=== PATIENT | female | born 1955 | race Caucasian/White ===

== ENCOUNTER 2022-09-04 07:27 | Outpatient (OUT) | payer MEDICARE, MEDICAID, SELFPAY ==
[2022-09-04 08:11] LABS: Basophils Absolute Auto 0.1 10^3/uL (0.0-0.1); Basophils Percent Auto 0.7 % (0.2-2.0); Eosinophils Absolute Auto 0.7 10^3/uL (0.0-0.7); Eosinophils Percent Auto 6.8 % (0.9-7.0); Hematocrit 40.6 % (36.0-48.0); Hemoglobin 13.1 g/dL (12.0-16.0); Immature Granulocytes Pct Auto 0.9 % (0.0-0.5); Lymphocytes Absolute Auto 3.2 10^3/uL (1.2-3.8); Lymphocytes Percent Auto 29.5 % (20.5-60.0); Mean Corpuscular HGB Conc 32.3 g/dL (29.9-35.2); Mean Corpuscular Hemoglobin 28.5 pg (26.7-34.0); Mean Corpuscular Volume 88.3 fL (81.0-99.0); Mean Platelet Volume 11.2 fL (9.5-13.5); Monocytes Absolute Auto 0.8 10^3/uL (0.3-0.8); Monocytes Percent Auto 7.6 % (1.7-12.0); Neutrophils Absolute Auto 5.9 10^3/uL (1.4-6.5); Neutrophils Percent Auto 54.5 % (43.0-75.0); Platelet Count 339 10^3/uL (150-450); Red Cell Distribution Width 13.5 % (11.0-15.0); White Blood Count 10.8 10^3/uL (4.0-11.0)
[2022-09-04 08:27] LABS: Microalbumin Urine Random <1.3 mg/dL (<=30.0)
[2022-09-04 09:38] LABS: Alanine Aminotransferase 32 U/L (14-59); Albumin Globulin Ratio 0.9; Albumin Level 3.5 g/dL (3.4-5.0); Alkaline Phosphatase 79 U/L (46-116); Anion Gap 10.8; Aspartate Amino Transferase 20 U/L (15-37); BUN Creatinine Ratio 18.2; Bilirubin Total 0.3 mg/dL (0.2-1.0); Calcium 8.8 mg/dL (8.5-10.1); Chloride 104 mmol/L (98-107); Chol HDL Ratio 4.1; Cholesterol 140 mg/dL (<=200); Estimated GFR (African America >60 (>=60); Estimated GFR (Non-African Ame >60 (>=60); Globulin 4.1 g/dL; Glucose 151 mg/dL (74-106); HDL Cholesterol 34 mg/dL (40-60); Potassium 3.8 mmol/L (3.5-5.1); Sodium 141 mmol/L (136-145); Total Protein 7.6 g/dL (6.4-8.2); Triglycerides 216 mg/dL (<=150); VLDL CHOLESTEROL 43.2 mg/dL
[2022-09-04 09:45] LABS: Free T4 0.91 ng/dL (0.76-1.46)
[2022-09-04 14:37] LABS: Thyroid Stimulating Hormone 1.751 uIU/mL (0.358-3.740)
== END 2022-09-04 07:28 | disposition home or self-care (01) ==
PROVIDERS: PCP Family Medicine; Visit Provider Family Medicine
DX: E78.2 Mixed hyperlipidemia (principal); E13.9 Other specified diabetes mellitus without complications
CPT/HCPCS: 36415; 80053; 80061; 82043; 84439; 84443; 85025

== ENCOUNTER 2022-12-14 14:15 | Outpatient (OUT) | payer MEDICARE, MEDICAID, SELFPAY ==
--- NOTE | 2022-12-14 14:17 | MM_ITS ---
Patient: VICTOR MANUEL SANDHU Exam Date: 12/14/2022 : 1955 Gender:F Ordering : DR ASH PRESCOTT Admission #: [id number] Family : Order #: [id number] CLICK HERE TO VIEW EXAM RADIOLOGY REPORT PROCEDURE: MM TOMOSYNTHESIS SCREENING BI COMPARISON: [facility] W CAD, 10/23/2019. [facility] SCREEN 3D [facility], 11/08/2021. INDICATIONS: Screening Calculator Name NCI Breast Cancer Risk Assessment Tool 5 Year Breast Cancer Risk 2.00% Lifetime Breast Cancer Risk 7.60% Personal Breast Cancer No Personal Ovarian Cancer No Treatments None Family Cancers None LOCATION: [facility] BREAST COMPOSITION: Scattered areas fibroglandular density. FINDINGS: DIAGNOSTIC CATEGORY 2--BENIGN FINDING. NO CHANGE FROM COMPARISON. Scattered benign-appearing calcifications are present. Scattered benign-appearing lymph nodes are present. RIGHT BREAST: No significant suspicious finding. LEFT BREAST: No significant suspicious finding. RECOMMENDATIONS: ROUTINE MAMMOGRAM AND CLINICAL EVALUATION IN 12 MONTHS. PLEASE NOTE: A NORMAL MAMMOGRAM DOES NOT EXCLUDE THE POSSIBILITY OF BREAST CANCER. A CLINICALLY SUSPICIOUS PALPABLE LUMP SHOULD BE BIOPSIED. Dictated by: Ash Cheek MD on 12/15/2022 at 09:00 Approved by: Ash Cheek MD on 12/15/2022 at 09:02
== END 2022-12-14 14:16 | disposition home or self-care (01) ==
LOC: MAMMO 14:15
PROVIDERS: PCP Family Medicine; Visit Provider Family Medicine
DX: Z12.31 Encounter for screening mammogram for malignant neoplasm of breast (principal)
CPT/HCPCS: 77063; 77067

== ENCOUNTER 2023-05-07 07:39 | Outpatient (OUT) | payer MEDICARE, SELFPAY ==
--- OUTSIDE RECORDS SUMMARY | 2023-05-07 07:44 | XMS_ITS | CCD ---
Author Organization [facility] Care Team Providers Care Salesperson Fashion Accessories Name Role Phone AVASTHI, STEPH Unavailable Unavailable AVASTHI, STEPH Unavailable Unavailable JIMMIE BREWSTER Unavailable Unavailable LIBIA SHIPMAN Unavailable Unavailable TRACI CORNELIUS Unavailable Unavailable AHMACHRISTOPHER Mora Unavailable Unavailable Mapus, Tondra Unavailable Samia Payton Primary Care Provider SAMIA PAYTON Primary Care Unavaila PK Engle Attending Unavailable Juanita Fletcher Unavailable MAPUS, TONDRA Admitting Unavailable MAPUS, TONDRA Attending Unavailable DEFRANCE, DR GRACIA Primary Care Unavailable MAPUS, TON Consulting Unavailable DEFRANCE, DR GRACIA Admitting Unavailable DEFRANCE, DR GRACIA Attending Unavailable DEFRANCE, DR GRACIA Primary Care Unavailable DEFRANCE, DR GRACIA Consulting Unavailable DEFRANCE, DR GRACIA Admitting Unavailable DEFRANCE, DR GRACIA Attending Unavailable DEFRANCE, DR GRACIA Primary Care Unavailable DEFRANCE, DR GRACIA Consulting Unavailable DEFRANCE, DR GRACIA Admitting Unavailable DEFRANCE, DR GRACIA Attending Unavailable DEFRANCE, DR GRACIA Primary Care Unavailable DEFRANCE, DR GRACIA Admitting Unavailable DEFRANCE, DR GRACIA Attending Unavailable DEFRANCE, DR GRACIA Primary Care Unavailable DEFRANCE, DR GRACIA Consulting Unavailable DEFRANCE, DR GRACIA Admitting Unavailable DEFRANCE, DR GRACIA Attending Unavailable DEFRANCE, DR GRACIA Primary Care Unavailable WEST, DR SAMIA Disla Consulting Unavailable DEFRANCE, DR GRACIA Consulting Unavailable Defrance Samia JENKINS Primary Care Provider MD Samia Landeros Primary Care Provider [phone] MD Samia Landeros Attending Provider Samia Landeros Unavailable Defrance, Samia Primary Care Unavailable Defrance, Samia Admitting Unavailable DEFRANCE, SAMIA Rivas Attending Unavailable DEFRANCE, SAMIA Rivas Referring Unavailable SAMIA LANDEROS Primary Care Unavailable Allergies Allergy Classification Reported Allergen(s) Allergy Type Date of Onset Reaction(s) Facility (20 sources) Codeine; Translations: [CODEINE] Drug Allergy 8 Swelling, Other (See Comments) [facility] Work Phone: (20 sources) LORazepam; Translations: [LORAZEPAM] Drug Allergy 8 rash, Other: See Comments [facility] Work Phone: (1 source) Codeine Drug Allergy [facility] (1 source) LORazepam Drug Allergy [facility] (1 source) Codeine Drug Allergy 4 [facility] (1 source) LORazepam Drug Allergy 4 [facility] Medications Current Medications Medication Drug Class(es) Dates Sig (Normalized) Sig (Original) amLODIPine 5 mg oral tablet (20 sources) Dihydropyridine Calcium Channel Juliet Start: 04-27-2023 take 1 tablet by mouth in the morning amLODIPine (NORVASC) 5 mg tablet Take 1 tablet (5 mg total) by mouth in the morning. 90 tablet 3 04/27/2023 Active Start: 02-14-2018 take 1 tablet by gerald th once daily amLODIPine (NORVASC) 10 mg tablet TAKE 1 TABLET BY MOUTH EVERY DAY 90 tablet 3 01/17/2023 Active Comment on above: Take 10 mg by mouth once daily. amylase [id number] unt / lipase [id number] unt / protease [id number] unt delayed release oral capsule (20 sources) Start: 019 ZENPEP 40,000-126,000- 168,000 unit capsule,delayed release(DR/EC) TAKE 2 CAPSULES BY MOUTH WITH MEALS AND 1 CAPSULE WITH EACH SNACK 270 capsule 5 02/10/2019 Active Comment on above: Take 2 capsules by m outh w MEALS. Take 1 tablet with each snack. atorvastatin 10 mg oral tablet (20 sources) HMG-CoA Reductase Inhibitor Start: 023 take 1 tablet by mouth in the morning atorvastatin (LIPITOR) 10 mg tablet Indications: Mixed hyperlipidemia Take 1 tablet (10 mg total) by mouth in the morning. 90 tablet 3 08/28/2022 Active benzonatate 200 mg oral capsule (3 sources) Non-narcotic Antitussive Start: take 1 capsule by mouth three times daily as needed for cough benzonatate (TESSALON PERLES) 200 mg capsule Take 1 capsule (200 mg total) by mouth 3 (three) times a day as needed for cough. 30 capsule 1 04/18/2023 Active carvedilol 25 mg oral tablet (20 sources) alpha-Adrenergic Juliet, beta-Adrenergic Juliet Start: take 1 tablet by mouth in the morning, then take 1 tablet by mouth at bedtime carvediloL (COREG) 25 mg tablet Take 1 tablet (25 mg total) by mouth in the morning and 1 tablet (25 mg total) before bedtime. 180 tablet 3 08/28/2022 Active Comment on above: Take 25 mg by mouth twice daily with meals. cefdinir 300 mg oral capsule (2 sources) Cephalosporin Antibacterial Start: End: take 1 capsule by mouth in the morning, then take 1 capsule by mouth at bedtime cefDINIR (OMNICEF) 300 mg capsule Take 1 capsule (300 mg total) by mouth in the morning and 1 capsule (300 mg total) before bedtime. Do all this for 10 days. 20 capsule 0 04/16/2023 04/26/2023 Active cholecalciferol 0.125 mg oral capsule (16 sources) Vitamin D take 1 capsule by mouth every twelve hours Vitamin D3 125 MCG (5000 UT) 1 capsule Orally twice a day Active DEXCOM G6 MODEL MAKER PLASTER misc (8 sources) Start: DEXCOM G6 MODEL MAKER PLASTER misc USE as directed TO monitor blood glucose 0 01/24/2022 Active Dexcom G6 Sensor - (16 sources) Start: 022 Dexcom G6 Sensor - as directed SQ change q 10 days for 90 day(s) Dec, Active Dexcom G6 Sensor - as directed SQ change q 10 days for 90 day(s) Active DEXCOM G6 SENSOR device (8 sources) Start: 01-24-2022 DEXCOM G6 SENS OR device CHANGE every 10 DAYS as directed 0 01/24/2022 Active Dexcom G6 Transmitter - (16 sources) Start: 01-04-2022 Dexcom G6 Escobar smitter - as directed SQ change Q 3 MO for 90 day(s) 23 Nov, 2022 Active Dexcom G6 Transm itter - as directed SQ change Q 3 MO for 90 day(s) Active DEXCOM G6 TRANSMITTER device (8 sources) Start: 01-24-2022 DEXCOM G6 ESCOBAR SMITTER device CHANGE every three MONTHS as directed with G6 Sensor 0 01/24/2022 Active diclofenac sodium 0.01 mg/mg topical gel (20 sources) Nonsteroidal Anti-inflammatory Drug Start: 12-18-2022 diclofenac sodium (VOLTAREN) 1 % gel APPLY TO AFFECTED AREA 3 TIMES A DAY 100 g 5 12/18/2022 Active Start: 05-05-2021 apply 2 g topically twice daily as needed for pain diclofenac (VOLTAREN) 1 % topical gel Indications: Costochondritis APPLY 2GM TO AFFECTED AREA TWICE DAILY NEEDED FOR PAIN DIRECTED 100 g 1 05/05/2021 Active Diclofenac Sodiu m 1 % as directed Externally TID Active Comment on above: APPLY 2GM TO AFFECTE D AREA TWICE DAILY NEEDED FOR PAIN DIRECTED docusate sodium 100 mg oral capsule (20 sources) Start: 04-12-2022 End: 03-26-2023 take 1 capsule by mouth in the morning STOOL SOFTENER 100 mg capsule TAKE 1 CAPSULE (100 MG TOTAL) BY MOUTH IN THE MORNING AND 1 CAPSULE BEFORE BEDTIME 180 capsule 3 03/26/2023 Active take 1 capsule by mouth twice da albertina docusate sodium (COLACE) 100 mg capsule Take 100 mg by mouth twice daily. 0 Active Comment on above: Take 100 mg by mouth twice daily. ferrous sulfate 325 mg oral tablet (20 sources) Start: 01-01-2023 take 1 tablet by mouth in the morning ferrous sulfate 325 (65 FE) mg tablet Take 1 tablet (325 mg total) by mouth in the morning. 90 tablet 3 01/01/2023 Active take 1 tablet by mouth once jacey y Ferrous Sulfate 325 (65 Fe) MG 1 tablet Orally Once a day Active Comment on above: Take 325 mg by mouth once daily. hydroCHLOROthiazide 25 mg oral tablet (5 sources) Thiazide Diuretic Start : 04-02 take 1 tablet by mouth once daily hydroCHLOROthiazide (HYDRODIURIL) 25 mg tablet Take 1 tablet (25 mg total) by mouth daily. 90 tablet 3 04/02/2023 Active 1.5 ml insulin glargine 300 unt/ml pen injector (20 sources) Insulin Analog Start : 03-13 inject 10 [IU] by subcutaneous injection in the morning, then inject 20 [IU] by subcutaneous injection once daily in the morning TOUJEO SOLOSTAR U-300 INSULIN 300 unit/mL (1.5 mL) insulin pen INJECT 10 UNITS IN THE MORNING. TITRATE UP TO 20 UNITS SUBCUTANEOUSLY PER DAY EVERY MORNING 0 03/13/2022 Active Start: 01-04-2022 inject 22 [IU] by calloway bcutaneous injection once daily in the morning Toujeo SoloStar 300 UNIT/ML 22 units qam Subcutaneous as directed for 30 days (titrate up to 30 units/day) Dec, Active Start: 01-04-2022 inject 10 [IU] by calloway bcutaneous injection once daily in the morning Toujeo SoloStar 300 UNIT/ML 10 units qam Subcutaneous as directed for 30 days (titrate up to 20 units/day) Dec, Active Toujeo SoloStar 300 UNIT/ML 37 units qam Subcutaneous as directed for 90 days (titrate up to 40 units/day) Active Toujeo SoloStar 300 UNIT/ML 32 units qam Subcutaneous as directed for 30 days (titrate up to 40 units/day) Active Toujeo SoloStar 300 UNIT/ML 35 units qam Subcutaneous as directed for 30 days (titrate up to 40 units/day) Active Toujeo SoloStar 300 UNIT/ML 33 units qam Subcutaneous as directed for 30 days (titrate up to 40 units/day) Active inject 30 [IU] by calloway bcutaneous injection once daily in the morning Toujeo SoloStar 300 UNIT/ML 30 units qam Subcutaneous as directed for 30 days (titrate up to 40 units/day) Active inject 28 [IU] by calloway bcutaneous injection once daily in the morning Toujeo SoloStar 300 UNIT/ML 28 units qam Subcutaneous as directed for 30 days (titrate up to 30 units/day) Active 3 ml insulin lispro 100 unt/ml pen injector (20 sources) Insulin Analog Start: 03-13-2022 HumaLOG KwikPe n Insulin 100 unit/mL insulin pen 1:25 CORRECTIVE SCALE BEFORE MEAL 3TIMES DAILY SUBCUTANEOUSLY DIRECTED*EXPECT UP TO 20UNITS DAILY 0 03/13/2022 Active Start: 01-04-2022 HumaLOG KwikPe n 100 UNIT/ML 1:40 corrective scale ac tid plus 1:10 ICR Subcutaneous as directed for 30 days (expect up to 20 units/day) Dec, Active lancing device misc (8 sources) Start: 03-03-2022 lancing device misc lidocaine 0.05 mg/mg medicated patch (20 sources) Antiarrhythmic, Amide Local Anesthetic Start: 08-28-2022 End: 02-15-2023 apply 1 dose transdermal route in the morning lidocaine (LIDODERM) 5 % Place 1 patch on the skin in the morning. 30 patch 5 02/15/2023 Active Lidocaine 5 % 1 patch remove after 12 hours Externally Once a day Active meclizine hydrochloride 25 mg oral tablet (20 sources) Antiemetic Start: 09-22-2022 End: 02-15-2023 take 1 tablet by mouth three times daily as needed for dizziness meclizine (ANTIVERT) 25 mg tablet Take 1 tablet (25 mg total) by mouth 3 (three) times a day as needed for dizziness. 90 tablet 5 02/15/2023 Active multivitamin (THERAGRAN) tablet (8 sources) take 1 tablet by mouth in the morning multivitamin (THERAGRAN) tablet Take 1 tablet by mouth in the morning. 0 Active Multivitamin preparation (16 sources) take 1 tablet by mouth once daily Multivitamin - 1 tablet Orally Once a day Active ondansetron 4 mg oral tablet (20 sources) Serotonin-3 Receptor Antagonist Start: 12-11-2022 End: 04-02-2023 take 1 tablet by mouth every eight hours as needed for nausea and vomiting ondansetron (ZOFRAN) 4 mg tablet Take 1 tablet (4 mg total) by mouth every 8 (eight) hours as needed for nausea or vomiting. 30 tablet 5 04/02/2023 Active pantoprazole 40 mg delayed release oral tablet (20 sources) Proton Pump Inhibitor Start: 08-28-2022 take 1 tablet by mouth in the morning pantoprazole (PROTONIX) 40 mg EC tablet Take 1 tablet (40 mg total) by mouth in the morning. 90 tablet 3 08/28/2022 Active Comment on above: Take 40 mg by mouth once daily. microencapsulated potassium chloride 10 meq extended release oral tablet (20 sources) Start: 09-22-2022 take 1 tablet by mouth in the morning KLOR-CON M10 10 mEq CR tablet TAKE 1 TABLET (10 MEQ TOTAL) BY MOUTH IN THE MORNING 90 tablet 3 09/22/2022 Active take 1 tablet by gerald th every twelve hours Potassium Chloride ER 10 MEQ 1 tablet wi th food Orally Twice a day Active psyllium 400 mg oral capsule (20 sources) psyllium husk (M ETAMUCIL) 0.4 gram capsule Take by mouth daily. 0 Active Metamucil Active Comment on above: Take by mouth once d aily. tiZANidine 4 mg oral tablet (20 sources) Central alpha-2 Adrenergic Agonist Start: 01-01-2023 take 1 tablet by mouth every eight hours as needed tiZANidine (ZANAFLEX) 4 mg tablet Take 1 tablet (4 mg total) by mouth every 8 (eight) hours as needed for muscle spasms. 270 tablet 3 01/01/2023 Active Start: 04-20-2019 take 1 tablet by gerald th once daily at bedtime tiZANidine (ZANAFLEX) 4 mg tablet Take 4 mg by mouth daily at bedtime. 0 04/20/2019 Active Comment on above: Take 4 mg by mouth d aily at bedtime. True Metrix Blood Glucose Test - (16 sources) True Metrix Bloo d Glucose Test - as directed In Vitro Active Zinc (2 sources) take 1 tablet by mouth twice daily Zinc 50 MG 1 tablet Orally TWICE A DAY Active zinc gluconate 50 mg oral tablet (14 sources) take 1 tablet by mouth every twelve hours Zinc 50 MG 1 tablet Orally TWICE A DAY Active Completed/Discontinued Medications Medication Drug Class(es) Dates Sig (Normalized) Sig (Original) acetaminophen 325 mg oral tablet (1 source) Start: 08-05-2018 take 2 tablets by mouth every six hours as needed acetaminophen (TYLENOL) 325 mg tablet Take 2 tablets by mouth every 6 hours as needed for Pain. 15 tablet 0 08/05/2018 Active Comment on above: Take 2 tablets by mo uth every 6 hours as needed for Pain. acetaminophen 325 mg / butalbital 50 mg / caffeine 40 mg oral tablet (4 sources) Barbiturate, Central Nervous System Stimulant, Methylxanthine Start: 01-13-2021 End: 04-02-2023 take 1-2 tablets by mouth every six hours as needed for headache butalbital-acetami nophen-caff (FIORICET, ESGIC) 50-325-40 mg per tablet Take 1-2 tablets by mouth every 6 (six) hours as needed for headaches. 40 tablet 1 01/13/2021 04/02/2023 Discontinued (Alternate therapy) glimepiride 2 mg oral tablet (1 source) Sulfonylurea Start: 05-18-2020 glimepiride (AMARYL) 2 mg tablet 4 mg daily with breakfast. 0 05/18/2020 Active Comment on above: 4 mg daily with bing kfast. meloxicam 15 mg oral tablet (1 source) Nonsteroidal Anti-inflammatory Drug Start: 02-23-2021 take 1 tablet by mouth once daily meloxicam (MOBIC) 15 mg tablet TAKE 1 TABLET BY MOUTH EVERY DAY 30 tablet 1 02/23/2021 Active Comment on above: TAKE 1 TABLET BY GERALD TH EVERY DAY MULTI-VITAMIN ORAL (1 source) take 1 tablet by mouth once daily MULTI-VITAMIN ORAL Take 1 tablet by mouth once daily. 0 Active Comment on above: Take 1 tablet by gerald th once daily. Problems Active Problems Problem Classification Problem Date Documented Date Episodic/Chronic Administrative/socia l admission (7 sources) Dietary counseling and surveillance Episodic Diabetes mellitus without complication (20 sources) Diabetes mellitus without complication; Translations: [Other specified diabetes mellitus without complications] Onset: 04-19-2020 Chronic Disorders of lipid metabolism (20 sources) Hyperlipidemia; Translations: [Hyperlipidemia, unspecified] Onset: 01-10-2022 Chronic Esophageal disorders (1 source) Gastroesophageal reflux disease; Translations: [Gastro-esophageal reflux disease without esophagitis] Onset: 03-03-2019 08-25-2020 Chronic Essential hypertension (20 sources) Hypertensive disorder; Translations: [Essential (primary) hypertension] Onset: 11-02-2017 Chronic Nutritional deficiencies (2 sources) Undernutrition; Translations: [Mild protein-calorie malnutrition] Onset: 11-06-2017 11-15-2017 Chronic Other aftercare (16 sources) Long-term current use of insulin; Translations: [jail (current) use of insulin] Episodic Other aftercare (7 sources) terminologist (current) use of insulin Episodic Other endocrine disorders (16 sources) Hypoglycemia; Translations: [Hypoglycemia, unspecified] Chronic Other endocrine disorders (1 source) Hypoglycemia, unspecified Chronic Other nervous system disorders (1 source) Disorder of brain; Translations: [Encephalopathy, unspecified] Onset: 11-05-2017 11-15-2017 Chronic Other nutritional; endocrine; and metabolic disorders (20 sources) Obese class I; Translations: [Body mass index (BMI) 31.0-31.9, adult] Onset: 11-30-2017 11-30-2017 Chronic Other nutritional; endocrine; and metabolic disorders (1 source) Body mass index (BMI) 31.0-31.9, adult Chronic Other nutritional; endocrine; and metabolic disorders (11 sources) Body mass index 30+ - obesity; Translations: [Body mass index (BMI) 32.0-32.9, adult] Chronic Other nutritional; endocrine; and metabolic disorders (1 source) Body mass index (BMI) 32.0-32.9, adult Chronic Other nutritional; endocrine; and metabolic disorders (2 sources) Body mass index (BMI) 33.0-33.9, adult Chronic Other nutritional; endocrine; and metabolic disorders (1 source) Body mass index (BMI) 34.0-34.9, adult Chronic Other nutritional; endocrine; and metabolic disorders (4 sources) Obese class II; Translations: [Body mass index (BMI) 36.0-36.9, adult] Chronic Other nutritional; endocrine; and metabolic disorders (2 sources) Body mass index (BMI) 36.0-36.9, adult Chronic Other upper respiratory infections (1 source) Acute sinusitis; Translations: [Other acute sinusitis] 04-16-2023 Episodic Residual codes; unclassified (16 sources) Acquired partial absence of pancreas; 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 Unclassified (2 sources) Acute pancreatitis with uninfected necrosis, unspecified; Translations: [Acute pancreatitis with uninfected necrosis, unspecified] Onset: 11-01-2017 Unclassified (1 source) Routine Check up Onset: 04-02-2023 Past or Other Problems Problem Classification Problem Date Documented Da te Episodic/Chronic Crushing injury or internal injury (9 sources) Injury of pancreas; Translations: [Unspecified injury of tail of pancreas, initial encounter] Onset: 07-31-2018 08-05-2018 Episodic Deficiency and other anemia (1 source) Iron deficiency anemia; Translations: [Iron deficiency anemia, unspecified] Onset: 11-27-2017 08-25-2020 Episodic Fluid and electrolyte disorders (6 sources) Hypernatremia; Translations: [Hyperosmolality and hypernatremia] Onset: 11-05-2017 11-15-2017 Episodic Intestinal infection (1 source) Clostridium difficile diarrhea; Translations: [Enterocolitis due to Clostridium difficile, not specified as recurrent] Onset: 11-05-2017 11-15-2017 Episodic Intestinal obstruction without hernia (1 source) Intestinal obstruction co-occurrent and due to decreased peristalsis; Translations: [Ileus, unspecified] Onset: 11-05-2017 11-15-2017 Episodic Mood disorders (8 sources) Mood disorders Onset: 10-10-2022 Resolved: 04-02-2023 10-10-2022 Other connective tissue disease (1 source) Myofascial pain syndrome; Translations: [Myalgia, other site] Onset: 09-23-2019 09-23-2019 Episodic Other lower respiratory disease (1 source) H/O: respiratory disease; Translations: [Personal history of other diseases of the respiratory system] Onset: 11-05-2017 08-25-2020 Episodic Other screening for suspected conditions (not mental disorders or infectious disease) (1 source) Encounter for screening mammogram for malignant neoplasm of breast; Translations: [ENC SCR MAMMO MALIG NEOPLASM BREAST] Onset: 11-10-2021 Episodic Pancreatic disorders (not diabetes) (13 sources) Acute necrotizing pancreatitis; Translations: [Acute pancreatitis with uninfected necrosis, unspecified] Onset: 11-03-2017 12-28-2017 Episodic Spondylosis; intervertebral disc disorders; other back problems (8 sources) Neck pain; Translations: [Cervicalgia] Onset: 08-31-2022 08-31-2022 Episodic Unclassified (8 sources) Onset: 04-29-2020 04-29-2020 Results Test Name Value Interpretation Reference Range Facility A1C HEMOGLOBINon 03-12-2023 HbA1c (Bld) [Mass fraction] 7.8 % [facility] Other Glucose - FINGER STICKon Glucose [Mass/Vol] 132 mg/dL [facility] Other HbA1c (Bld) [Mass fraction]o n 03-12-2023 [facility] HEMOGLOBINon 11-27-2022 HbA1c (Bld) [Mass fraction] 6.7 % [facility] Other Glucose - FINGER STICKon Glucose [Mass/Vol] 126 mg/dL [facility] Other HbA1c (Bld) [Mass fraction]o n 11-27-2022 A1C HEMOGLOBIN [facility] [employer] Other Glucose - FINGER STICKon Glucose [Mass/Vol] 106 mg/dL [facility] Other Glucose - FINGER STICKon Glucose [Mass/Vol] 131 mg/dL [facility] Other GGTon 05-01-2022 Gamma glutamyl transferase [Catalytic activity/Vol] 27 U/L Normal 8-55 [facility] Comment on above: Performed By: #### G GT, ALT, AST #### [facility] [address] [address] [address] Caridad [place] SGOTon 05-01-2022 AST [Catalytic activity/Vol] 24 U/L Normal 15-37 [facility] Comment on above: Performed By: #### G GT, ALT, AST ####[facility] [id number] [place], [place] [address]NvDr. Caridad [place] SGPTon 05-01-2022 ALT [Catalytic activity/Vol] 40 U/L Normal 14-59 [facility] Comment on above: Performed By: #### G GT, ALT, AST #### [facility] [address] [place], [place] [address] Dr. Caridad Canada Glucose - FINGER STICKon Glucose [Mass/Vol] 126 mg/dL [facility] Other A1C HEMOGLOBINon 02-20-2022 HbA1c (Bld) [Mass fraction] 10.0 % [facility] Other Glucose - FINGER STICKon Glucose [Mass/Vol] 125 mg/dL [facility] Other HbA1c (Bld) [Mass fraction]o n 02-20-2022 A1C HEMOGLOBIN [facility] [employer] Other C-PEPTIDE, SERUMon 2 C-Peptide, Serum 3.5 ng/mL Normal 1.1-4.4 [facility] Comment on above: Result Comment: C-Pe ptide reference interval is for fasting patients. Performed By: #### C PEPT #### [facility] [address] [address] [address] Caridad Canada GGTon 01-06-2022 Gamma glutamyl transferase [Catalytic activity/Vol] 40 U/L Normal 8-55 [facility] Comment on above: Performed By: #### A ST, K, ALT, LIPID, GGT ####[facility] [id number] [address]Dr[address] Caridad [place] GLUCOSE BLOODon 01-06-2022 Glucose [Mass/Vol] 342 mg/dL Critically high 74-106 [facility] Comment on above: Performed By: #### G PAMELA ####[facility] [id number] [place] [address]Dr[address] Caridad [place] LIPID PROFILEon 01-06-2022 CHOL-HDL RATIO NORM SEE BELOW Normal [facility] Comment on above: Result Comment: 3.3 - 4.4 LOW RISK 4.4 - 7.1 AVERAGE RISK 7.1 - 11.0 MODERATE RISK >11.0 HIGH RISK Performed By: #### A ST, K, ALT, LIPID, GGT ####[facility] [id number] [place] [id number][address] Caridad [place] Cholesterol [Mass/Vol] 142 mg/dL Normal <=200 [facility] Comment on above: Performed By: #### A ST, K, ALT, LIPID, GGT ####[facility] [id number] [address]Dr. Caridad [place] Cholesterol in HDL [Mass/Vol] 32 mg/dL Critically low 40-60 [facility] Comment on above: Performed By: #### A ST, K, ALT, LIPID, GGT ####[facility] [id number] [place] [phone][address] Caridad [place] Cholesterol in LDL [Mass/Vol] 62.2 mg/dL Normal [facility] Comment on above: Performed By: #### A ST, K, ALT, LIPID, GGT ####[facility] [id number] [place] [phone][address] Caridad Derad Cholesterol.total/ Cholesterol in HDL [Mass ratio] 4.4 {ratio} Normal [facility] Comment on above: Performed By: #### A ST, K, ALT, LIPID, GGT ####[facility] [id number] [place] [address]Dr. Caridad [place] HDL NORMAL > or = 60 mg/dl - LO W CARDIOVASCULAR RISK <40 mg/dl - HIGH CARDIOVASCULAR RISK Normal [facility] Comment on above: Performed By: #### A ST, K, ALT, LIPID, GGT ####[facility] [id number] [place] [address]Dr. Chantellpito [place] LDL CALC NORMAL SEE BELOW Normal [facility] Comment on above: Result Comment: <100 mg/dl OPTIMAL 100 - 129 mg/dl NEAR OR ABOVE OPTIMAL 130 - 159 mg/dl BORDERLINE HIGH 160 - 189 mg/dl HIGH >190 mg/dl VERY HIGH Performed By: #### A ST, K, ALT, LIPID, GGT ####[facility] [id number] [place] [phone][address] Caridad [place] Triglyceride [Mass/Vol] 239 mg/dL Critically high <=150 [facility] Comment on above: Performed By: #### A ST, K, ALT, LIPID, GGT ####[facility] [id number] [place] [phone]. Caridad [place] VLDL CALC 47.8 mg/dL Normal [facility] [facility] Comment on above: Performed By: #### A ST, K, ALT, LIPID, GGT ####[facility] [address] [place] [address]Dr. Caridad Canada MICROALB CREAT RATIO RANDOMo n 01-06-2022 mALB <1.3 Normal <=30.0 [facility] Comment on above: Performed By: #### M CRR ####[facility] [address] [place] [id number]. Caridad Canada MALB CR RATIO 11.1 mg/g Normal 0.0-29.9 [facility] Comment on above: Performed By: #### M CRR ####[facility] [address] [place] [address]Dr. Caridad Canada MALB CR RATIO RANGE SEE BELOW Normal [facility] Comment on above: Result Comment: NO M ICROALBUMINURIA 0-29 MG/G CLINICAL MICROALBUMINURIA 30-300 MG/G MACROALBUMINURIA >300 MG/G Performed By: #### M CRR ####[facility] [address] [place], [place] [address]Dr. Caridad Canada URINE CREAT 116.75 mg/dL Normal 20.00-300.00 [facility] Comment on above: Performed By: #### M CRR ####[facility] [address] [place], [place] [address]Dr. Caridad Canada POTASSIUMon 01-06-2022 Potassium [Moles/Vol] 4.1 mmol/L Normal 3.5-5.1 [facility] Comment on above: Performed By: #### A ST, K, ALT, LIPID, GGT ####[facility] [address] [place] [address]Dr. Caridad Canada SGOTon 01-06-2022 AST [Catalytic activity/Vol] 32 U/L Normal 15-37 [facility] Comment on above: Performed By: #### A ST, K, ALT, LIPID, GGT ####[facility] [address] [place] [address]Dr. Caridad Canada SGPTon 01-06-2022 ALT [Catalytic activity/Vol] 63 U/L Critically high 14-59 [facility] Comment on above: Performed By: #### A ST, K, ALT, LIPID, GGT ####[facility] [address] [place] [address]Dr. Caridad Canada Glucose - FINGER STICKon Glucose [Mass/Vol] 359 mg/dL [employer] Other GLYCOHEMOGLOBIN A1Con 2021 ADA RECOMMENDATION SEE BELOW Normal The [facility] Comment on above: Result Comment: ADA RECOMMENDED LIMIT 4.0 - 6.0 ADA THERAPEUTIC TARGET < 7.0 ACTION SUGGESTED > 7.0 Performed By: #### A 1C #### [facility] [address] [place] [address] Dr. Caridad Canada Glucose [Mass/Vol] 272 mg/dL Normal [facility] Comment on above: Performed By: #### A 1C #### [facility] [address] [place], [place] [address] Dr. Caridad Canada HbA1c (Bld) [Mass fraction] 11.1 % Critically high 4.5-6.2 [facility] Comment on above: Performed By: #### A 1C #### [facility] [address] [place] [address] Dr. Caridad Canada MG MAMM SCREEN 3D MERCY CADon 11-08-2021 MG MAMM SCREEN 3D MERYC CAD Patient: NICHOLE SANDHU Exam Date: 11/08/2021 : 1955 Gender:F Ordering : DR SAMIA LANDEROS Admission #: [id number] Family : Order #: [id number] CLICK HERE TO VIEW EXAM RADIOLOGY REPORT PROCEDURE: MAMMOGRAM SCREENING 3D BILATERAL CAD COMPARISON: MG MAMM MERCY DIAG W CAD, 10/23/2019. MG MAMM LT DIAG W CAD, 04/03/2019. INDICATIONS: Screening mammography Calculator Name NCI Breast Cancer Risk Assessment Tool 5 Year Breast Cancer Risk 2.00% Lifetime Breast Cancer Risk 7.90% Personal Breast Cancer No Personal Ovarian Cancer No Treatments None Family Cancers None LOCATION: [facility] BREAST COMPOSITION: Scattered areas fibroglandular density. FINDINGS: DIAGNOSTIC CATEGORY 2--BENIGN FINDING. NO CHANGE FROM COMPARISON. Scattered benign-appearing calcifications are present. Scattered benign-appearing lymph nodes are present. RIGHT BREAST: No significant suspicious finding. LEFT BREAST: No significant suspicious finding. RECOMMENDATIONS: ROUTINE MAMMOGRAM AND CLINICAL EVALUATION IN 12 MONTHS. PLEASE NOTE: A NORMAL MAMMOGRAM DOES NOT EXCLUDE THE POSSIBILITY OF BREAST CANCER. A CLINICALLY SUSPICIOUS PALPABLE LUMP SHOULD BE BIOPSIED. Dictated by: Samia Cheek MD on 11/09/2021 at 07:35 Approved by: Samia Cheek MD on 11/09/2021 at 07:37 Normal [facility] MICROALBUMIN/ CREATININE RAT IOon 10-25-2021 Albumin, Urine 985.5 ug/mL Normal Not Estab. [facility] Comment on above: Result Comment: Resu lts confirmed on dilution. Performed By: #### M ALBCRL #### [facility] [address] [place] [address] [address] Caridad Canada Albumin/ Creatinine Ratio 399 mg/g creat Critically high 0-29 [facility] Comment on above: Result Comment: Norm al: 0 - 29 Moderately increased: 30 - 300 Severely increased: >300 Performed By: #### M ALBCRL #### [facility] [address] [place] [address] Dr. Caridad Canada Creatinine, Urine 247.2 mg/dL Normal Not Estab. The [facility] Comment on above: Performed By: #### M ALBCRL #### [facility] [address] [place] [address] [address] Caridad Canada CBC AUTO DIFFon 10-24-2021 BASO # 0.1 103/ul Normal 0.0-0.1 [facility] Comment on above: Performed By: #### C BC #### [facility] [address] [place] [address] Dr. Caridad Canada Basophils/100 WBC (Bld) 0.9 % Normal 0.2-2.0 [facility] Comment on above: Performed By: #### C BC #### [facility] [address] [place] [address] Dr. Caridad Canada EO # 0.5 103/ul Normal 0.0-0.7 [facility] Comment on above: Performed By: #### C BC #### [facility] [address] [place] [address] Dr. Caridad Canada Eosinophils/100 WBC (Bld) 4.1 % Normal 0.9-7.0 [facility] Comment on above: Performed By: #### C BC #### [facility] [address] [place] [address] Dr. Caridad Canada Erythrocyte distribution width (RBC) [Ratio] 13.2 % Normal 11.0-15.0 [facility] Comment on above: Performed By: #### C BC #### [facility] [address] [place] [address] Dr. Caridad Canada Hematocrit (Bld) [Volume fraction] 42.5 % Normal 36.0-48.0 [facility] Comment on above: Performed By: #### C BC #### [facility] [address] [place] [address] Dr. Caridad Canada Hemoglobin (Bld) [Mass/Vol] 14.2 g/dL Normal 12.0-16.0 [facility] Comment on above: Performed By: #### C BC #### [facility] [address] [place] [address] Dr. Caridad Canada IG # 0.08 10e3/ul Critically high 0.00-0.03 [facility] Comment on above: Performed By: #### C BC #### [facility] [address] [place] [address] Dr. Caridad Canada IG % 0.7 % Critically high 0.0-0.5 [facility] Comment on above: Performed By: #### C BC #### [facility] [address] [place] [address] Dr. Caridad Canada LYMPH # 4.0 103/ul Critically high 1.2-3.8 [facility] Comment on above: Performed By: #### C BC #### [facility] [address] [place] [address] Dr. Caridad Canada Lymphocytes/100 WBC (Bld) 32.9 % Normal 20.5-60.0 [facility] Comment on above: Performed By: #### C BC #### [facility] [address] [place] [address] Dr. Caridad Canada MANUAL DIFF REQ NO Normal [facility] Comment on above: Performed By: #### C BC #### [facility] [address] [place] [address] Dr. Caridad Canada MCH (RBC) [Entitic mass] 28.8 pg Normal 26.7-34.0 [facility] Comment on above: Performed By: #### C BC #### [facility] [address] [place] [address] Dr. Caridad Canada MCHC (RBC) [Mass/Vol] 33.4 g/dL Normal 29.9-35.2 [facility] Comment on above: Performed By: #### C BC #### [facility] [address] [place] [address] [address] Caridad Canada MCV (RBC) [Entitic vol] 86.2 fL Normal 81.0-99.0 [facility] Comment on above: Performed By: #### C BC #### [facility] [address] [place] [address] Dr. Caridad Canada MONO # 0.7 103/ul Normal 0.3-0.8 [facility] Comment on above: Performed By: #### C BC #### [facility] [address] [place] [address] Dr. Caridad Canada Monocytes/100 WBC (Bld) 6.1 % Normal 1.7-12.0 [facility] Comment on above: Performed By: #### C BC #### [facility] [address] [place] [address] Dr. Caridad Canada NEUT # 6.7 103/ul Critically high 1.4-6.5 [facility] Comment on above: Performed By: #### C BC #### [facility] [address] [place] [address] Dr. Caridad Canada Neutrophils/100 WBC (Bld) 55.3 % Normal 43.0-75.0 [facility] Comment on above: Performed By: #### C BC #### [facility] [address] [place] [address] Dr. Caridad Canada Platelet mean volume (Bld) [Entitic vol] 12.1 fL Normal 9.5-13.5 [facility] Comment on above: Performed By: #### C BC #### [facility] [address] [place] [address] Dr. Caridad Canada PLT 320 103/ul Normal 150-450 [facility] Comment on above: Performed By: #### C BC #### [facility] [address] [place] [address] [address] Caridad Canada RBC 4.93 106/ul Normal 4.20-5.40 [facility] Comment on above: Performed By: #### C BC #### [facility] [address] [place] [address] [address] Caridad Canada WBC 12.1 103/ul Critically high 4.0-11.0 [facility] Comment on above: Performed By: #### C BC #### [facility] [address] [place] [address] [address] Caridad Canada FREE T4on 10-24-2021 Free T4 [Mass/Vol] 1.22 ng/dL Normal 0.76-1.46 [facility] Comment on above: Performed By: #### F T4 ####[facility] [address] [place] [address] [address]Dr. Caridad Canada LIPID PROFILEon 10-24-2021 CHOL-HDL RATIO NORM SEE BELOW Normal [facility] Comment on above: Result Comment: 3.3 - 4.4 LOW RISK 4.4 - 7.1 AVERAGE RISK 7.1 - 11.0 MODERATE RISK >11.0 HIGH RISK Performed By: #### C MP, LIPID, TSH #### [facility] [address] [place] [address] [address] Caridad Canada Cholesterol [Mass/Vol] 181 mg/dL Normal <=200 [facility] Comment on above: Performed By: #### C MP, LIPID, TSH #### [facility] [address] [place] [address] [address] Caridad Canada Cholesterol in HDL [Mass/Vol] 30 mg/dL Critically low 40-60 [facility] Comment on above: Performed By: #### C MP, LIPID, TSH #### [facility] [address] [place] [address] [address] Caridad Canada Cholesterol in LDL [Mass/Vol] 74.6 mg/dL Normal [facility] Comment on above: Performed By: #### C MP, LIPID, TSH #### [facility] [address] [place] [address] [address] Caridad Canada Cholesterol.total/ Cholesterol in HDL [Mass ratio] 6.0 {ratio} Normal [facility] Comment on above: Performed By: #### C MP, LIPID, TSH #### [facility] [address] [place] [address] [address] Caridad Canada HDL NORMAL > or = 60 mg/dl - LO W CARDIOVASCULAR RISK <40 mg/dl - HIGH CARDIOVASCULAR RISK Normal [facility] Comment on above: Performed By: #### C MP, LIPID, TSH #### [facility] [address] [place] [address] [address] Caridad Canada LDL CALC NORMAL SEE BELOW Normal [facility] Comment on above: Result Comment: <100 mg/dl OPTIMAL 100 - 129 mg/dl NEAR OR ABOVE OPTIMAL 130 - 159 mg/dl BORDERLINE HIGH 160 - 189 mg/dl HIGH >190 mg/dl VERY HIGH Performed By: #### C MP, LIPID, TSH #### [facility] [address] [place] [address] [address] Caridad Canada Triglyceride [Mass/Vol] 382 mg/dL Critically high <=150 [facility] Comment on above: Performed By: #### C MP, LIPID, TSH #### [facility] [address] [place] [address] [address] Caridad Canada VLDL CALC 76.4 mg/dL Normal [facility] Comment on above: Performed By: #### C MP, LIPID, TSH #### [facility] [address] [place] [address] [address] Caridad Canada PROF 14(COMP METB)on 022 Albumin [Mass/Vol] 3.6 g/dL Normal 3.4-5.0 [facility] Comment on above: Performed By: #### C MP, LIPID, TSH #### [facility] [address] [place] [address] [address] Caridad Canada Albumin/Globulin [Mass ratio] 0.8 {ratio} Normal [facility] Comment on above: Performed By: #### C MP, LIPID, TSH #### [facility] [address] [place] [address] [address] Caridad Canada ALP [Catalytic activity/Vol] 98 U/L Normal 46-116 [facility] Comment on above: Performed By: #### C MP, LIPID, TSH #### [facility] [address] [place] [address] [address] Caridad Canada ALT [Catalytic activity/Vol] 53 U/L Normal 14-59 [facility] Comment on above: Performed By: #### C MP, LIPID, TSH #### [facility] [address] [place] [address] [address] Caridad Canada Anion gap [Moles/Vol] 13.6 mmol/L Normal [facility] Comment on above: Performed By: #### C MP, LIPID, TSH #### [facility] [address] [place] [address] Dr. Caridad Canada AST [Catalytic activity/Vol] 28 U/L Normal 15-37 [facility] Comment on above: Performed By: #### C MP, LIPID, TSH #### [facility] [address] [address] [address] Caridad Canada Bilirubin [Mass/Vol] 0.4 mg/dL Normal 0.2-1.0 [facility] Comment on above: Performed By: #### C MP, LIPID, TSH #### [facility] [address] [address] [address] Caridad Canada Calcium [Mass/Vol] 9.2 mg/dL Normal 8.5-10.1 [facility] Comment on above: Performed By: #### C MP, LIPID, TSH #### [facility] [address] [address] [address] Caridad Canada Chloride [Moles/Vol] 99 mmol/L Normal 98-107 [facility] Comment on above: Performed By: #### C MP, LIPID, TSH #### [facility] [address] [address] [address] Caridad Canada CO2 [Moles/Vol] 29.8 mmol/L Normal 21.0-32.0 [facility] Comment on above: Performed By: #### C MP, LIPID, TSH #### [facility] [address] [address] [address] Caridad Canada Creatinine [Mass/Vol] 0.66 mg/dL Normal 0.55-1.02 [facility] Comment on above: Performed By: #### C MP, LIPID, TSH #### [facility] [address] [address] [address] Caridad Canada EGFR-AF QATARI >60 Normal >=60 [facility] Comment on above: Performed By: #### C MP, LIPID, TSH #### [facility] [address] [place] [address] [address] Caridad Canada EGFR-NON AF QATARI >60 Normal >=60 [facility] Comment on above: Performed By: #### C MP, LIPID, TSH #### [facility] [address] [address] [address] Caridad Canada Globulin (S) [Mass/Vol] 4.3 g/dL Normal [facility] Comment on above: Performed By: #### C MP, LIPID, TSH #### [facility] [address] [address] [address] Caridad Canada Glucose [Mass/Vol] 301 mg/dL Critically high 74-106 [facility] Comment on above: Performed By: #### C MP, LIPID, TSH #### [facility] [address] [address] [address] Caridad Canada Potassium [Moles/Vol] 3.4 mmol/L Critically low 3.5-5.1 [facility] Comment on above: Performed By: #### C MP, LIPID, TSH #### [facility] [address] [address] [address] Caridad Canada Protein [Mass/Vol] 7.9 g/dL Normal 6.4-8.2 [facility] Comment on above: Performed By: #### C MP, LIPID, TSH #### [facility] [address] [address] [address] Caridad Canada Sodium [Moles/Vol] 139 mmol/L Normal 136-145 [facility] Comment on above: Performed By: #### C MP, LIPID, TSH #### [facility] [address] [place] [address] Dr. Caridad Canada Urea nitrogen [Mass/Vol] 6.0 mg/dL Critically low 7.0-18.0 [facility] Comment on above: Performed By: #### C MP, LIPID, TSH #### [facility] [address] [place] [address] Dr. Caridad Canada Urea nitrogen/Creatinin e [Mass ratio] 9.1 mg/mg Normal [facility] Comment on above: Performed By: #### C MP, LIPID, TSH #### [facility] [address] [place] [address] Dr. Caridad Canada TSHon 10-24-2021 TSH 1.566 uIU/mL Normal 0.358-3.740 [facility] Comment on above: Performed By: #### C MP, LIPID, TSH #### [facility] [address] [place] [address] Dr. Caridad Canada OBSOLETEon 01-25-2021 OBSOLETE Refill (PAINMN) ----- NICHOLE SANDHU ([id number]) 1955 F Date Time Provider Department 01/25/21 JACEY CABRAL PAINMN During your visit today, we recorded the following information about you: Allergies As of Date: 01/25/2021 Noted Allergy Reaction ATIVAN (LORAZEPAM) 11/11/2017 14 - Other: See Comments Comments: Becomes combative/ delirious CODEINE 11/04/2017 7 - Swelling Comments: Swelling of the tongue Date Reviewed: 11/16/2020 Reviewed by: Pk Grady MD - Fully Assessed Reason for Visit: Refill Request [94] Visit Diagnosis:Costochondritis [M94.0] Order(s):diclofenac (VOLTAREN) 1 % topical gelAPPLY 2 GRAMS TO AFFECTED AREA TWICE A DAY NEEDED FOR PAIN DIRECTEDDisp: 100 gRfl: 1 Prescriptions as of 01/25/2021 - diclofenac (VOLTAREN) 1 % topical gel APPLY 2 GRAMS TO AFFECTED AREA TWICE A DAY NEEDED FOR PAIN DIRECTED - smlcou-bycdovew-bpyzzrf (ZENPEP) 40,000-126,000- 168,000 unit delayed release capsule Take 2 capsules by mouth w MEALS. Take 1 tablet with each snack. - meloxicam (MOBIC) 15 mg tablet TAKE 1 TABLET BY MOUTH EVERY DAY - glimepiride (AMARYL) 2 mg tablet 4 mg daily with breakfast. - psyllium husk (METAMUCIL) 0.4 gram cap Take by mouth once daily. - tiZANidine (ZANAFLEX) 4 mg tablet Take 4 mg by mouth daily at bedtime. - pantoprazole DR (PROTONIX) 40 mg tablet Take 40 mg by mouth once daily. - acetaminophen (TYLENOL) 325 mg tablet Take 2 tablets by mouth every 6 hours as needed for Pain. - carvedilol (COREG) 25 mg tablet Take 25 mg by mouth twice daily with meals. - ferrous sulfate (IRON) 325 mg (65 mg iron) tablet Take 325 mg by mouth once daily. - docusate sodium (COLACE) 100 mg capsule Take 100 mg by mouth twice daily. - amLODIPine (NORVASC) 10 mg tablet Take 10 mg by mouth once daily. - MULTI-VITAMIN ORAL Take 1 tablet by mouth once daily. 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 difficile diarrhea [A04.72] 11/05/2017 Hypernatremia [E87.0] 11/05/2017 Pancreatitis [K85.90] 11/03/2017 Malnutrition of mild degree (HCC) [E44.1] 11/06/2017 Obesity, Class II, BMI 35-39.9 [E66.9] 11/15/2017 09/24/2019 Fever [R50.9] 11/27/2017 08/25/2020 Obesity, Class I, BMI 30-34.9 [E66.9] 11/30/2017 Malnutrition of moderate degree (HCC) [E44.0] 12/29/2017 Pancreatitis, necrotizing [K85.91] 01/16/2018 Pancreas tail injury [S36.202A] 07/31/2018 Myofascial pain syndrome [M79.18] 09/23/2019 Gastroesophageal reflux disease [K21.9] 03/03/2019 Iron deficiency anemia [D50.9] 11/27/2017 Hypertension [I10] 11/02/2017 Secondary diabetes mellitus (HCC) [E13.9] 04/19/2020 Prescriptions ordered this encounter Disp Refills Start End DICLOFENAC 1 % TOPICAL GEL 100 g 1 01/25/2021 Sig: APPLY 2 GRAMS TO AFFECTED AREA TWICE A DAY NEEDED FOR PAIN DIRECTED Medications Discontinued During This Encounter Prescriptions - diclofenac (VOLTAREN) 1 % topical gel (Discontinued) APPLY 2 GRAMS TO AFFECTED AREA TWICE A DAY NEEDED FOR PAIN DIRECTED Encounter Status:Closed by JACEY CABRAL on 01/25/21 [facility] ANES POSTPROC EVALon 021 ANES POSTPROC EVAL HNO ID: [id number] Author: Jayce Chase DO Service: Anesthesiology Author Type: Anesthesiologist Type: Anesthesia Postprocedure Evaluation Filed: 08/31/2020 9:44 AM Note Text: POST ANESTHESIA EVALUATION NOTE : 1955 Procedure Summary Date: 08/31/20 Room / Location: [facility] / [facility] Anesthesia Start: 839 Anesthesia Stop: 900 Procedure: COLONOSCOPY WITH BIOPSY (N/A Abdomen) Diagnosis: Overflow diarrhea Irritable bowel syndrome with constipation Change in bowel habits (Dx: Overflow diarrhea [R19.7 (ICD-10-CM)]; Irritable bowel syndrome with constipation [K58.1 (ICD-10-CM)]; Change in bowel habits [R19.4 (ICD-10-CM)]) (PATIENT OUT OF TOWN; WOULD LIKE LATEST IN DAY) Surgeons: Jayce Workman DO Responsible Provider: Jayce Chase DO Anesthesia Type: MAC ASA Status: 3 Anesthesia Type: MAC Last vitals Vitals Value Taken Time BP 138/71 08/31/20 0930 Temp 36.2 ?C (97.2 ?F) 08/31/20 0930 HR SpO2 73 08/31/20 0932 Resp 13 08/31/20 0932 SpO2 95 % 08/31/20 0932 Vitals shown include unvalidated device data. Post Anesthesia Patient Status Patient Evaluation: bedside. Anticipated Disposition: phase 2 then home. Neurological Status: aware and responsive. Pulmonary Status: breathing comfortably on room air Airway Control: returned to baseline unsupported. Cardiovascular Status: stable. Pain Management: clinically adequate Postoperative Hydration: acceptable. Intraoperative Events: no significant anesthesia events Post Operative Nausea/Vomiting Status: no significant post operative nausea or vomiting Anesthetic Observations: Recommendation: continue current plan of care. No complications documented. SIGNATURE: Jayce Chase DO PATIENT NAME: Nichole Sandhu DATE: August 31, 2020 TIME: 9:44 AM CSN: [id number] [facility] ANES PRE-OPon 08-31-2020 ANES PRE-OP HNO ID: [id number] Author: Jayce Chase DO Service: Anesthesiology Author Type: Anesthesiologist Type: Anesthesia Preprocedure Evaluation Filed: 08/31/2020 7:29 AM Note Text: ANESTHESIOLOGY DAY OF SURGERY NOTE : 1955 Procedure(s) (LRB): COLONOSCOPY (N/A) Surgeon(s): Jayce Workman DO Estimated body mass index is 31.26 kg/m? as calculated from the following: Height as of 08/25/20: 163.8 cm (5' 4.5 ). Weight as of 08/25/20: 83.9 kg (185 lb). Most recent hematocrit and potassium results: Hematocrit 35.1 08/20/2018 Potassium 3.7 08/20/2018 CONCLUSIONS: - Technically difficult exam due to suboptimal positioning, body habitus and mechanical ventilation. - Exam indication: Hypotension - The left ventricle is normal in size. There is mild septal left ventricular hypertrophy. Left ventricular systolic function is normal. EF = 68 ? 5% (2D biplane) - The right ventricle is normal in size. Right ventricular systolic function is normal. - The patient has not had a prior CC echocardiographic exam for comparison. ? Relevant Problems CARDIO (+) Hypertension GI (+) Gastroesophageal reflux disease NEURO-PSYCH (+) History of ARDS I - PHYSICAL EVALUATION AIRWAY Patient intubated: No. Tracheostomy tube not present Mallampati: II. TM distance: >3 FB. Neck ROM: full ROM without neurological symptoms. Mouth opening: adequate. Short neck: no. Thick neck: no DENTAL Dentures, upper: complete. Additional exam findings: no II - ANESTHESIA PLAN ASA Score: 3 Anesthetic Plan: MAC The patient is not a current smoker. NPO Status: adequate Administration of chronic beta juliet medication planned. Monitoring plan: standard ASA. Postoperative analgesic plan: multimodal analgesia. Anesthetic Risks, Benefits, Alternatives, Personnel Discussed. Consent obtained from: patient.Patient / Surrogate agrees to blood products: blood products not planned DNR status not reviewed with patient and/or family prior to surgery. Significant changes in the patient condition since the History and Physical, not otherwise documented in primary service progress note: no. Potential Anesthesia issues that may suggest increased risk of complications or contraindication to planned procedure: none. No vitals data found for the desired time range. No current facility-administered medications on file as of 08/31/2020. Outpatient Medications as of 08/31/2020 Medication Sig - diclofenac (VOLTAREN) 1 % topical gel APPLY 2 GRAMS TO AFFECTED AREA TWICE A DAY NEEDED FOR PAIN DIRECTED - tlaixb-qsfaoixc-whhveyt (ZENPEP) 40,000-126,000- 168,000 unit cpDR Take 2 capsules by mouth w MEALS. - lipase/protease/amylase (ZENPEP ORAL) Take by mouth. - glimepiride (AMARYL) 2 mg tablet - lidocaine (LIDODERM) 5 % Apply 1 Patch as directed every 24 hours. - psyllium husk (METAMUCIL) 0.4 gram cap Take by mouth once daily. - tiZANidine (ZANAFLEX) 4 mg tablet Take 4 mg by mouth daily at bedtime. - pantoprazole DR (PROTONIX) 40 mg tablet Take 40 mg by mouth once daily. - acetaminophen (TYLENOL) 325 mg tablet Take 2 tablets by mouth every 6 hours as needed for Pain. - carvedilol (COREG) 25 mg tablet Take 25 mg by mouth twice daily with meals. - ferrous sulfate (IRON) 325 mg (65 mg iron) tablet Take 325 mg by mouth once daily. - docusate sodium (COLACE) 100 mg capsule Take 100 mg by mouth twice daily. - amLODIPine (NORVASC) 10 mg tablet Take 10 mg by mouth. - MULTI-VITAMIN ORAL Take 1 tablet by mouth once daily. - blood sugar diagnostic ([employer]TOUCH VERIO) test strip Use as instructed I have interviewed and examined the patient. I have reviewed the medical record and/or the pre-anesthesia evaluation, pertinent labs, and test results. This contains updated information obtained within 48 hours of Surgery/Procedure. SIGNATURE: Chino Graves DO PATIENT NAME: Nichole Sandhu DATE: August 31, 2020 TIME: 7:27 AM CSN: [id number] [facility] CNCOon 08-31-2020 CNCO Letter Text [facility] HISTORY PHYSICALon HISTORY PHYSICAL HNO ID: [id number] Author: Chaz Benitez PA-C Service: Gastroenterology Author Type: Physician Student Loan Counselor Type: HANDP Filed: 08/31/2020 8:10 AM Note Text: UPDATED HISTORY AND PHYSICAL EXAMINATION SERVICE DATE: 08/31/2020 SERVICE TIME: 7:28 AM PHYSICAL EXAM MUST BE COMPLETED ON ADMISSION The History and Physical (completed in the past 30 days) has been reviewed and the patient has been examined. The contents accurately reflect the patient's condition with the following additions or revisions since the HANDP was completed. Patient denies any changes to health since last examination. Planned procedure for today is colonoscopy. Medication reconciliation list reviewed in [employer]. Past medical history, past surgical history, social history and family history reviewed and updated in [employer]. ALLERGIES Allergen Reactions - Ativan [Lorazepam] Other: See Comments Becomes combative/ delirious - Codeine Swelling Swelling of the tongue BP 176/78 Pulse 69 Temp 36.6 ?C (97.9 ?F) (Temporal) Resp 16 Ht 163.8 cm (5' 4.5 ) Wt 83.9 kg (185 lb) SpO2 97% BMI 31.26 kg/m? Examination indicates no changes. On examination today: Lungs: Clear to auscultation bilaterally. Heart: Rate within normal limits. Regular rhythm . Abdomen: soft, non tender. This HANDP can be found in the Electronic Medical Record dated 08/25/2020 by Nguyen Seals PA-C . SIGNATURE: Chaz Benitez PA-C PATIENT NAME: Nichole Sandhu DATE: August 31, 2020 TIME: 7:28 AM Normal [facility] NURSING PROGon 08-31-2020 NURSING PROG HNO ID: [id number] Author: Ericka Hughes RN Service: Gastroenterology Author Type: Registered Nurse Type: Nursing Progress Note Filed: 09/01/2020 10:56 AM Note Text: [facility] ENDOSCOPY POST PROCEDURE FOLLOW UP CALL [phone] (home) Date Phone Call Made: 09/01/2020 Attempt: Attempt #1 Spoke to: Patient SYMPTOM DESCRIPTION Pain or Discomfort rated as: None IV Site: none Diet Back to Previous yes Nausea/Vomiting: None Bleeding: None Bowel Habits: Normal Other Issues: No Complaints Offered Was the nursing staff attentive to your needs? Yes Is there something our department could have done to make your experience more pleasant? No Ericka Hughes RN Normal [facility] SURGICAL PATHOLOGYon 021 SURGICAL PATHOLOGY Specimen originated from [facility] Specimen #: [id number] Submitting Physician: JAYCE WORKMAN FINAL DIAGNOSIS 1. Random colon, biopsy (A) - Colonic mucosa with no diagnostic alteration; no evidence of lymphocytic or collagenous colitis. 2. Sigmoid polyp, biopsy (B) - Hyperplastic polyp. Kyle Cleaning M.D. (Electronic Signature) SPECIMEN SUBMITTED A: RANDOM COLON, BIOPSY B: SIGMOID POLYP CLINICAL DATA DIARRHEA GROSS DESCRIPTION A. Received in formalin are two pieces of storey, soft tissue aggregating to 0.5 x 0.4 x 0.1 cm. Totally submitted in one cassette. B. Received in formalin is one piece of storey-red, soft tissue measuring 0.3 x 0.2 x 0.2 cm. Totally submitted in one cassette. Gross examination performed at [facility], [address] [place] [address] J 08/31/2020 2:17:20 PM Date of Report: 09/01/2020 Date of Procedure: 08/31/2020 Date of Receipt: 08/31/2020 Submitted by: JAYCE WORKMAN Location: [facility] Diagnostic interpretation performed at [facility], [address] [place] [address]. CLIA Number: [id number] Normal [facility] NURSING PROGon 08-30-2020 NURSING PROG HNO ID: [id number] Author: Rosibel Aiken, RODRICK Service: ? Author Type: Registered Nurse Type: Nursing Progress Note Filed: 08/30/2020 2:11 PM Note Text: [facility] ENDOSCOPY PRE PROCEDURE CALL Diana. I'm calling from [facility] endoscopy to provide you with the information for your surgery/procedure tomorrow. Spoke to: Patient CONFIRM Procedure Planned with patient:Colonoscopy with or without biopsies based on clinical findings Have you been in contact with somebody who was sick?no Do you currently have fever, cough, muscle aches, lack of smell or taste, shortness or breath or other flu-like symptoms?no Have you travelled recently?no Can you please confirm the name and relationship of your local company hazmat driver. Breana Sandhu What is the best number for your local company hazmat driver to be reached at tomorrow for updates? [phone] At this time due to COVID precautions the hospital is taking, visitors are NOT allowed in the pre-op area. They may wait in the main lobby or drop off pt and leave us their contact information and we will call them once pt is ready to be picked up. All patients may have a visitor in recovery only, after the procedure, however, there is a short recovery period so most drivers chose to stay in the car or drop off. So you are prepared and comfortable on the day of your procedure, I want to make you aware of several safety measures we've put in place. When entering our facilities, patients and visitors will be screened for potential COVID-19 symptoms including a temperature scan. You will be asked to sanitize your hands and will be provided with a cloth mask to wear the entire time you are in our building. You may choose to bring your own masks from home. Additionally, as the furniture has been rearranged to promote social and physical distancing, your visitor will be asked to wait outside of the building. This is for everyone's safety and we will ensure the surgical team is able to contact your support team. Colonoscopy: Have you had solid foods today?no (or instruct this must be done on Sunday.) Remind patient the day prior to the test is clear liquids that you can see through (no reds or purple). Stay well hydrated all day. Do not drink only the bowel prep to clean you out. Drink all of the prep to ensure your test can be completed and polyps are not missed. Remind pt to drink at least 1 cup of clear liquids every hour even after finishing the bowel prep. If pt has eaten solid foods-contact endoscopist and verify if they wish to proceed. Are you familiar with where [facility] is located?yes Address [facility] Patient instructed to enter through the main hospital entrance off [address] at [address] through the revolving doors and check in at the main desk with your local company hazmat driver's license and insurance card. yes If anesthesia or sedation is being given: Patient instructed you must have an adult local company hazmat driver because you will not be able to work or drive for the rest of the day after your test.yes Patient instructed not bring any valuables, jewelry, or ponce and wear comfortable clothing. Do not wear makeup, lotion, or finger mongolian. yes Patient instructed: Do not eat or drink anything after midnight, including gum and hard candy.yes Patient instructed: Please bring a list of medications including over the counter, vitamin, and herbals. If you are on inhalers, please do them in the morning before your test and bring them with you.yes Blood pressure, seizure, or thyroid medications may be taken with a couple sips of water ONLY 3 hours prior to arrival time. Is the patient on blood thinners?no If so,verify if pt contacted the prescribing doctor to see how long they may hold blood thinners prior to procedure. Are you diabetic?yes If so, advise pt to contact prescribing doctor to verify if any modifications are needed for insulin and/or pills Reminder:diabetic medication instructions should be given by the patient's ordering physician. If blood sugar drops, they can have CLEAR liquids to bring it up until 3 hours prior to arrival time. Has patient had any recent heart events in the past 6 months? : No Does the patient have a trach or Internal Defibrillator? : No Has patient had any problems with anesthesia in the past or told by a medical professional that he/she was difficult to intubate?: No Procedure and/or bowel prep instructions given to patient and questions answered: Yes, and they verbalized their understanding of instructions given Any barriers to Patient learning (confusion? Services Host needed?): Patient/Patient Practice Clinician responded appropriately on phone. Type of instruction given: Verbal by telephone contact. [facility] ----- NICHOLE SANDHU ([id number]) 1955 F Date Time Provider Department 08/18/20 JAYCE WORKMAN SPDIG During your visit today, we recorded the following information about you: Bernarda Delgado, RODRICK 08/18/2020 5:08 PM Signed COLONOSCOPY- Delete if not having COLON: I called patient to review instructions for colonoscopy. Spoke with patient and sent instructions. Reviewed diet instructions and restrictions, and colonoscopy prep. If applicable, reviewed the need to contact prescribing MD regarding DM and blood thinning medications (Contact prescribing MD re: holding blood thinners or if diabetic for possible modifications while preparing for procedure. . Some pts are not allowed to stop taking their blood thinners ex: cardiac stents less than 1 year ago.). Patient instructed that they will receive a call the day prior to procedure with the time. Patient instructed that they will need a designated local company hazmat driver on the day of the exam. A responsible adult who is 18 years or older must be available to drive you home after your procedure. The patient is not allowed to drive, take a taxi or bus, or leave the Endoscopy Center alone. Patient is not allowed to drive AT ALL following the procedure. Patient may resume driving the following day.Patient verbalized understanding of all teaching. Bernarda Delgado RN Allergies As of Date: 08/18/2020 Noted Allergy Reaction ATIVAN (LORAZEPAM) 11/11/2017 14 - Other: See Comments Comments: Becomes combative/ delirious CODEINE 11/04/2017 7 - Swelling Comments: Swelling of the tongue Date Reviewed: 05/18/2020 Reviewed by: Pk Grady - Fully Assessed Reason for Visit: Outpatient Colonoscopy [482] Prescriptions as of 08/18/2020 - diclofenac (VOLTAREN) 1 % topical gel APPLY 2 GRAMS TO AFFECTED AREA TWICE A DAY NEEDED FOR PAIN DIRECTED - yqxfvo-jdbjjahc-wouxowu (ZENPEP) 40,000-126,000- 168,000 unit cpDR Take 2 capsules by mouth w MEALS. - lipase/protease/amylase (ZENPEP ORAL) Take by mouth. - glimepiride (AMARYL) 2 mg tablet - lidocaine (LIDODERM) 5 % Apply 1 Patch as directed every 24 hours. - psyllium husk (METAMUCIL) 0.4 gram cap Take by mouth once daily. - tiZANidine (ZANAFLEX) 4 mg tablet Take 4 mg by mouth daily at bedtime. - pantoprazole DR (PROTONIX) 40 mg tablet Take 40 mg by mouth once daily. - ppfian-vlivnmup-xnkjjvm (ZENPEP) 40,000-126,000- 168,000 unit cpDR Take 2 tablets by mouth w MEALS. Take 1 tablet with each snack. - acetaminophen (TYLENOL) 325 mg tablet Take 2 tablets by mouth every 6 hours as needed for Pain. - carvedilol (COREG) 25 mg tablet Take 25 mg by mouth twice daily with meals. - ferrous sulfate (IRON) 325 mg (65 mg iron) tablet Take 325 mg by mouth once daily. - docusate sodium (COLACE) 100 mg capsule Take 100 mg by mouth twice daily. - amLODIPine (NORVASC) 10 mg tablet Take 10 mg by mouth. - MULTI-VITAMIN ORAL Take 1 tablet by mouth once daily. - blood sugar diagnostic ([employer]ET[employer]CH VERIO) test strip Use as instructed Problem List As Of Date 08/18/2020 Noted Resolved Necrotizing pancreatitis [K85.91] 11/04/2017 Delirium [R41.0] 11/04/2017 ARDS (adult respiratory distress syndrome) (HCC*11/05/2017 Acute encephalopathy [G93.40] 11/05/2017 Ileus (HCC) [K56.7] 11/05/2017 C. difficile diarrhea [A04.72] 11/05/2017 Hypernatremia [E87.0] 11/05/2017 Pancreatitis [K85.90] 11/03/2017 Malnutrition of mild degree (HCC) [E44.1] 11/06/2017 Obesity, Class II, BMI 35-39.9 [E66.9] 11/15/2017 09/24/2019 Fever [R50.9] 11/27/2017 Obesity, Class I, BMI 30-34.9 [E66.9] 11/30/2017 Malnutrition of moderate degree (HCC) [E44.0] 12/29/2017 Pancreatitis, necrotizing [K85.91] 01/16/2018 Pancreas tail injury [S36.202A] 07/31/2018 Myofascial pain syndrome [M79.18] 09/23/2019 Encounter Status:Closed by BERNARDA DELGADO on 08/18/20 [facility] Coding Summary.on 01-16-2018 Coding Summary. CODING DATE: 018 [facility] STATUS: Home (Routine DC) PAYOR: Medical [employer] APC DESCRIPTION 5571 Level 1 Imaging with Contrast ADMIT DX: REASON FOR VISIT DX: K85.90 Acute pancreatitis without necrosis or infection, unspecified FINAL DX: PRINCIPAL: K85.90 Acute pancreatitis without necrosis or infection, unspecified SECONDARY: PYMT PROC APC STAT DESCRIPTION DOCTOR NAME DATE NOTE: The code number assigned matches the documented diagnosis and / or procedure in the patient's chart. However, the narrative phrase printed from the coding software may appear abbreviated, or result in slightly different terminology. Coded By: Sherin Denny CphT Date Saved: 01/16/2018 07:44 am [facility] Coding Summary.on 12-27-2017 Coding Summary. CODING DATE: 018 FINAL [facility] STATUS: Home (Routine DC) PAYOR: Medical Paxinos ADMIT DX: REASON FOR VISIT DX: E61.1 Iron deficiency FINAL DX: PRINCIPAL: E61.1 Iron deficiency SECONDARY: K85.92 Acute pancreatitis with infected necrosis, unspecified PROCEDURES DOCTOR NAME DATE NOTE: The code number assigned matches the documented diagnosis and / or procedure in the patient's chart. However, the narrative phrase printed from the coding software may appear abbreviated, or result in slightly different terminology. Coded By: Sherin Denny CphT Date Saved: 12/27/2017 02:09 pm Normal [facility] Auto Diffon 12-25-2017 Basophils/100 WBC (Bld) 0.2 % Normal 0.0-2.0 [facility] Comment on above: Order Comment: Order Added by Discern Expert. Performed By: #### 2 [id number], [id number], [id number], 2988378, 8441641 #### [facility] [address] [place] [address] Basophils/Leukocyt es Auto (Bld) [Pure # fraction] 0.0 E9/L Normal 0.0-0.2 [facility] Comment on above: Order Comment: Order Added by Discern Expert. Performed By: #### 2 059990, [id number], 64727363, 7332364, 1166113 #### [facility] [address] [place] [address] 17548 Eosinophils/100 WBC (Bld) 0.9 % Normal 0.0-8.0 [facility] Comment on above: Order Comment: Order Added by Discern Expert. Performed By: #### 2 185572, 58878009, 60940970, 2372961, 3173186 #### [facility] [address] [place] [address] Eosinophils/Leukoc ytes Auto (Bld) [Pure # fraction] 0.1 E9/L Normal 0.0-0.5 [facility] Comment on above: Order Comment: Order Added by Discern Expert. Performed By: #### 2 490482, 28715382, 96731371, 5806581, 2371878 #### [facility] [address] [place] [address]60[address] Lymphocytes/100 WBC (Bld) 8.4 % Low 14.0-50.0 [facility] Comment on above: Order Comment: Order Added by Discern Expert. Performed By: #### 2 406385, 36523130, 02040437, 2631135, 4903679 #### [facility] [address] [place] [address] 24622 Lymphocytes/Leukoc ytes Auto (Bld) [Pure # fraction] 1.3 E9/L Normal 1.0-4.0 [facility] Comment on above: Order Comment: Order Added by Discern Expert. Performed By: #### 2 050805, 94984962, 94372226, 6906340, 5309757 #### [facility] [address] [place] [address] 96421 Monocytes/100 WBC (Bld) 6.8 % Normal 4.0-14.0 [facility] Comment on above: Order Comment: Order Added by Discern Expert. Performed By: #### 2 377631, 64220951, 65488145, 7982211, 8836755 #### [facility] [address] [place] [address] Monocytes/Leukocyt es Auto (Bld) [Pure # fraction] 1.1 E9/L High 0.2-1.0 [facility] Comment on above: Order Comment: Order Added by Discern Expert. Performed By: #### 2 278699, 70422876, 48805543, 1427492, 5588641 #### [facility] [address] [place] [address] 39039 Neutrophils/100 WBC (Bld) 83.7 % High 36.0-75.0 [facility] Comment on above: Order Comment: Order Added by Discern Expert. Performed By: #### 2 741736, 77136331, 02868377, 4944951, 4615222 #### [facility] [address] [place] [address] 06461 Neutrophils/Leukoc ytes Auto (Bld) [Pure # fraction] 13.1 E9/L High 2.0-7.5 [facility] Comment on above: Order Comment: Order Added by Discern Expert. Performed By: #### 2 473168, 89825537, 06809483, 2455096, 5902578 #### [facility] [address] [place] [address] CBC w/ Auto Diffon Erythrocyte distribution width (RBC) [Ratio] 16.4 % High 10.9-14.2 [facility] Comment on above: Performed By: #### 2 537350, 38733901, 95053434, 2476349, 3345660 #### [facility] [address] [place] [address] Hematocrit (Bld) [Volume fraction] 29.6 % Low 34.0-46.0 [facility] Comment on above: Performed By: #### 2 058872, 83597971, 83875303, 8353322, 2000217 #### [facility] [address] [place] [address] Hemoglobin (Bld) [Mass/Vol] 9.2 g/dL Low 12.0-16.0 [facility] Comment on above: Performed By: #### 2 265399, 54165898, 49729509, 1634645, 8805924 #### [facility] [address] [place] [address] 63732 MCH (RBC) [Entitic mass] 23.6 pg Low 27.0-34.0 [facility] Comment on above: Performed By: #### 2 838531, 42775901, 36830049, 4295837, 1357288 #### [facility] [address] [place] [address] MCHC (RBC) [Mass/Vol] 31.1 g/dL Low 31.4-39.3 [facility] Comment on above: Performed By: #### 2 711178, 18861096, 67612459, 1119013, 8798901 #### [facility] [address] [place] [address] MCV (RBC) [Entitic vol] 75.9 fL Low 80.0-100.0 [facility] Comment on above: Performed By: #### 2 822546, 79847445, 25335434, 0578787, 5242585 #### [facility] [address] [place] [address] Platelet mean volume (Bld) [Entitic vol] 10.2 fL Normal 6.4-10.8 [facility] Comment on above: Performed By: #### 2 769316, 52543888, 87925461, 5889103, 0524288 #### [facility] [address] [place] [address] Platelets (Bld) [#/Vol] 375.0 E9/L Normal 150.0-500.0 [facility] Comment on above: Performed By: #### 2 335446, 30489604, 05404064, 1398257, 0784611 #### [facility] [address] [place] [address] 38118 RBC (Bld) [#/Vol] 3.9 E12/L Low 4.3-5.9 [facility] Comment on above: Performed By: #### 2 594074, 45353657, 54504102, 7716630, 3819932 #### [facility] [address] [place] [address]17[address] WBC corrected for nucl RBC Auto (Bld) [#/Vol] 15.6 E9/L High 4.0-11.0 [facility] Comment on above: Performed By: #### 2 063325, 09399117, 32405905, 4928463, 5282558 #### [facility] [address] [place] [address] CMPon 12-25-2017 Albumin [Mass/Vol] 0.6 g/dL Low 1.1-2.2 [facility] Comment on above: Performed By: #### 2 811970, 45399785, 27366155, 1977252, 2888549 #### [facility] [address] [place] [address] Albumin [Mass/Vol] 2.9 g/dL Low 3.3-5.0 [facility] Comment on above: Performed By: #### 2 051521, 41851566, 14293667, 4750223, 9290480 #### [facility] [address] [place] [address] ALP [Catalytic activity/Vol] 62 Int._Unit/L Normal 21-98 [facility] Comment on above: Performed By: #### 2 138147, 12712074, 31158194, 7495023, 8354564 #### [facility] [address] [place] [address] ALT No additional P-5'-P [Catalytic activity/Vol] 12 Int._Unit/L Normal 6-46 [facility] Comment on above: Performed By: #### 2 439063, 64159489, 62399172, 1687708, 2044565 #### [facility] [address] [place] [address] Anion gap [Moles/Vol] 16 mmol/L Normal 6-16 [facility] Comment on above: Performed By: #### 2 569158, 66893461, 63426676, 4975553, 2906262 #### [facility] [address] [place] [address] AST [Catalytic activity/Vol] 19 Int._Unit/L Normal 5-43 [facility] Comment on above: Performed By: #### 2 932096, 33817086, 47708274, 9519715, 9098558 #### [facility] [address] [place] [address] Bilirubin [Mass/Vol] 0.5 mg/dL Normal 0.0-1.1 [facility] Comment on above: Performed By: #### 2 507552, 85377881, 46268725, 0373692, 5536282 #### [facility] [address] [place] [address] Calcium [Mass/Vol] 8.9 mg/dL Normal 8.9-11.1 [facility] Comment on above: Performed By: #### 2 928194, 45294523, 84215476, 8894953, 3871039 #### [facility] [address] [place] [address] Chloride [Moles/Vol] 98 mmol/L Low 101-111 [facility] Comment on above: Performed By: #### 2 048474, 64815340, 35051903, 6685747, 2434726 #### [facility] [address] [place] [address] CO2 [Moles/Vol] 26 mmol/L Normal 21-31 [facility] Comment on above: Performed By: #### 2 897546, 13257082, 65374995, 2616225, 1799490 #### [facility] [address] [place] [address] Creatinine [Mass/Vol] 0.5 mg/dL Normal 0.5-1.3 [facility] Comment on above: Performed By: #### 2 251007, 90485990, 51515923, 9420657, 2217870 #### [facility] [address] [place] [address] Globulin (S) [Mass/Vol] 4.8 g/dL High 1.4-4.0 [facility] Comment on above: Performed By: #### 2 699188, [id number], [id number], 3407783, 6425995 #### [facility] [address] [place] [address] Glucose [Mass/Vol] 105 mg/dL Normal 55-199 [facility] Comment on above: Result Comment: If t his glucose result represents a fasting glucose, interpretation should refer to the following reference range: 55-99 mg/dL Performed By: #### 2 107589, [id number], 74777068, 8939852, 8122215 #### [facility] [address] [place] [address] Potassium [Moles/Vol] 3.7 mmol/L Normal 3.5-5.3 [facility] Comment on above: Performed By: #### 2 187859, 76017518, 61708188, 4516879, 7445794 #### [facility] [address] [place] [address] Protein [Mass/Vol] 7.7 g/dL Normal 6.0-7.8 [facility] Comment on above: Performed By: #### 2 072182, 06488870, 89052952, 2934030, 5896462 #### [facility] [address] [place] [address] Sodium [Moles/Vol] 136 mmol/L Normal 135-145 [facility] Comment on above: Performed By: #### 2 794141, 93782548, 73588246, 9404925, 2005858 #### [facility] [address] [place] [address] Urea nitrogen [Mass/Vol] 9 mg/dL Normal 5-21 [facility] Comment on above: Performed By: #### 2 831454, 49644793, 69645312, 7482352, 8990291 #### [facility] [address] [place] [address] Urea nitrogen/Creatinin e [Mass ratio] 18 No Units Normal 10-20 [facility] Comment on above: Performed By: #### 2 847126, 59713115, 90551501, 3414703, 8702813 #### [facility] [address] [place] [address] Morphon 12-25-2017 Anisocytosis Ql (Bld) Present Normal [facility] Comment on above: Order Comment: Order Added by Discern Expert. Performed By: #### 2 838620, 32636394, 17018743, 4527806, 4179683 #### [facility] [address] [place] [address] Morphology Víctor (Bld) [Interp] See Morphology Normal [facility] Comment on above: Order Comment: Order Added by Discern Expert. Performed By: #### 2 875125, 10096618, 89967569, 9946102, 0912226 #### [facility] [address] [place] [address] Platelets Large LM Ql (Bld) Present Normal [facility] Comment on above: Order Comment: Order Added by Discern Expert. Performed By: #### 2 205414, 32295338, 09358764, 8729241, 1515644 #### [facility] [address] [place] [address] eGFRon 12-25-2017 GFR/1.73 sq M predicted among blacks MDRD (S/P/Bld) [Vol rate/Area] mL/min/{1.73_m2} Normal >=59 [facility] Comment on above: Order Comment: Order added by Vin Expert. Result Comment: eGFR is race adjusted. AA=. Performed By: #### 2 042928, 47411090, 17048089, 7516620, 3991244 #### [facility] [address] [place] [address] GFR/1.73 sq M predicted among non-blacks MDRD (S/P/Bld) [Vol rate/Area] mL/min/{1.73_m2} Normal >=59 [facility] Comment on above: Order Comment: Order added by Vin Expert. Result Comment: [employer] kaleigh kidney disease could be indicated at eGFR's of less than 60 mL/min/1.73m2. Kidney failure is indicated at less than 15 mL/min/1.73m2. Performed By: #### 2 629703, 57507767, 64603622, 5469442, 2472945 #### [facility] [address] [place] [address] Coding Summary.on 12-18-2017 Coding Summary. CODING DATE: 018 FINAL [facility] STATUS: Home (Routine DC) PAYOR: Medical [facility] DESCRIPTION 5571 Level 1 Imaging with Contrast ADMIT DX: REASON FOR VISIT DX: K85.91 Acute pancreatitis with uninfected necrosis, unspecified FINAL DX: PRINCIPAL: K85.91 Acute pancreatitis with uninfected necrosis, unspecified SECONDARY: PYMT PROC APC STAT DESCRIPTION DOCTOR NAME DATE NOTE: The code number assigned matches the documented diagnosis and / or procedure in the patient's chart. However, the narrative phrase printed from the coding software may appear abbreviated, or result in slightly different terminology. Coded By: Rachel Degroot Date Saved: 12/18/2017 12:08 pm Normal [facility] Creatinineon 12-17-2017 Creatinine [Mass/Vol] 0.5 mg/dL Normal 0.5-1.3 [facility] Comment on above: Performed By: #### 1 7868895, 6663856 #### [facility] [address] [place] [address] eGFRon 12-17-2017 GFR/1.73 sq M predicted among blacks MDRD (S/P/Bld) [Vol rate/Area] mL/min/{1.73_m2} Normal >=59 [facility] Comment on above: Order Comment: Order added by Discern Expert. Result Comment: eGFR is race adjusted. AA=. Performed By: #### 1 6196921, [id number] #### [facility] [address] [place] [address] GFR/1.73 sq M predicted among non-blacks MDRD (S/P/Bld) [Vol rate/Area] mL/min/{1.73_m2} Normal >=59 [facility] Comment on above: Order Comment: Order added by Discern Expert. Result Comment: [employer] kaleigh kidney disease could be indicated at eGFR's of less than 60 mL/min/1.73m2. Kidney failure is indicated at less than 15 mL/min/1.73m2. Performed By: #### 1 [id number], [id number] #### [facility] [address] [place] [address] Cult, Bloodon 11-08-2017 Cult, Blood Specimen Description .BLOOD Special Requests LT HAND Culture NO GROWTH 6 DAYS Report Status FINAL 11/08/2017 [facility] Comment on above: Performed By: #### L IP, LACWB, IOCAL, PT, CDP, CHANDU, PTT, LIPR, CMPX ####[facility] [address] [place] [address] Cult,Bloodon 11-08-2017 Cult,Blood Specimen Description .BLOOD Special Requests NOT REPORTED Culture NO GROWTH 6 DAYS Report Status FINAL 11/08/2017 [facility] Comment on above: Performed By: #### L IP, LACWB, IOCAL, PT, CDP, CHANDU, PTT, LIPR, CMPX ####[address] [place] [address] Plan of Careon 11-04-2017 HIM IP Note OR Extras Casting Director Normal [facility] Basic Metabolic Profon 11-03 (cont.) Normal [facility] Comment on above: Result Comment: Aver age GFR for 60-69 years old: 85 mL/min/1.73sq mChronic Kidney Disease: <60 mL/min/1.73sq mKidney failure: <15 mL/min/1.73sq meGFR calculated using average adult body mass. Additional eGFR calculator available at:http://www.edulio.Flashtalking/multiple_crcl_2012.htm Performed By: #### L IP, LACWB, IOCAL, PT, CDP, CHANDU, PTT, LIPR, CMPX ####[address] [place] [address] Anion gap 3 molar conc 9 mmol/L Normal 9-17 [facility] Comment on above: Performed By: #### L IP, LACWB, IOCAL, PT, CDP, CHANDU, PTT, LIPR, CMPX ####[facility] [address] [place] [address] Calcium mass conc 8.3 mg/dL Low 8.6-10.4 [facility] Comment on above: Performed By: #### L IP, LACWB, IOCAL, PT, CDP, CHANDU, PTT, LIPR, CMPX ####[facility] [address] [place] [address] Chloride molar conc 111 mmol/L High 98-107 [facility] Comment on above: Performed By: #### L IP, LACWB, IOCAL, PT, CDP, CHANDU, PTT, LIPR, CMPX ####[address] [address] CO2 molar conc 26 mmol/L Normal 20-31 [facility] Comment on above: Performed By: #### L IP, LACWB, IOCAL, PT, CDP, CHANDU, PTT, LIPR, CMPX ####[address] [address] Creatinine mass conc 0.84 mg/dL Normal 0.50-0.90 [facility] Comment on above: Performed By: #### L IP, LACWB, IOCAL, PT, CDP, CHANDU, PTT, LIPR, CMPX ####[address] [address] GFR, Amer >60 Normal >60 [facility] Comment on above: Performed By: #### L IP, LACWB, IOCAL, PT, CDP, CHANDU, PTT, LIPR, CMPX ####[address] [address] GFR,non Amer >60 Normal >60 [facility] Comment on above: Performed By: #### L IP, LACWB, IOCAL, PT, CDP, CHANDU, PTT, LIPR, CMPX ####[address] [place] [address] Glucose mass conc 124 mg/dL High 70-99 [facility] Comment on above: Performed By: #### L IP, LACWB, IOCAL, PT, CDP, CHANDU, PTT, LIPR, CMPX ####[address] [address] Potassium molar conc 4.2 mmol/L Normal 3.7-5.3 [facility] Comment on above: Performed By: #### L IP, LACWB, IOCAL, PT, CDP, CHANDU, PTT, LIPR, CMPX ####[address] [place] [address] Sodium molar conc 146 mmol/L High 135-144 [facility] Comment on above: Performed By: #### L IP, LACWB, IOCAL, PT, CDP, CHANDU, PTT, LIPR, CMPX ####[facility] [address] [place] [address] Urea nitrogen mass conc 25 mg/dL High 8- [facility] Comment on above: Performed By: #### L IP, LACWB, IOCAL, PT, CDP, CHANDU, PTT, LIPR, CMPX ####[address] [place] [address] BUN/CRE Ratio NOT REPORTED Normal - [facility] Comment on above: Performed By: #### L IP, LACWB, IOCAL, PT, CDP, CHANDU, PTT, LIPR, CMPX ####[address] [place] [address] Staging: NOT REPORTED Normal [facility] Comment on above: Performed By: #### L IP, LACWB, IOCAL, PT, CDP, CHANDU, PTT, LIPR, CMPX ####[facility] [address] [place] [address] CBC with Diffon 11-03-2017 Abs. Basophil 0.00 k/uL Normal 0.0-0.2 [facility] Comment on above: Performed By: #### L IP, LACWB, IOCAL, PT, CDP, CHANDU, PTT, LIPR, CMPX ####[facility] [address] [place] [address] Abs.Imm.Granulocyt e 0.33 k/uL High 0.00-0.30 [facility] Comment on above: Performed By: #### L IP, LACWB, IOCAL, PT, CDP, CHANDU, PTT, LIPR, CMPX ####[place] [address] Abs.Neutrophil (Seg) 13.12 k/uL High 1.8-7.7 [facility] Comment on above: Performed By: #### L IP, LACWB, IOCAL, PT, CDP, CHANDU, PTT, LIPR, CMPX ####[place] [address] Basophils/100 WBC Auto (Bld) 0 % Normal 0-2 [facility] Comment on above: Performed By: #### L IP, LACWB, IOCAL, PT, CDP, CHANDU, PTT, LIPR, CMPX ####[place] [address] Eosinophils Auto #/vol (Bld) 0.00 10*3/uL Normal 0.0-0.4 [facility] Comment on above: Performed By: #### L IP, LACWB, IOCAL, PT, CDP, CHANDU, PTT, LIPR, CMPX ####[place] [address] Eosinophils/100 WBC Auto (Bld) 0 % Low 1-4 [facility] Comment on above: Performed By: #### L IP, LACWB, IOCAL, PT, CDP, CHANDU, PTT, LIPR, CMPX ####[place] [address] Immature granulocytes #/vol (Bld) 2 % High 0 [facility] Comment on above: Performed By: #### L IP, LACWB, IOCAL, PT, CDP, CHANDU, PTT, LIPR, CMPX ####[place] [address] Lymphocytes Auto #/vol (Bld) 1.49 10*3/uL Normal 1.0-4.8 [facility] Comment on above: Performed By: #### L IP, LACWB, IOCAL, PT, CDP, CHANDU, PTT, LIPR, CMPX ####[address] [address] Lymphocytes/100 WBC Auto (Bld) 9 % Low 24-44 [facility] Comment on above: Performed By: #### L IP, LACWB, IOCAL, PT, CDP, CHANDU, PTT, LIPR, CMPX ####[address] [address] Monocytes Auto #/vol (Bld) 1.66 10*3/uL High 0.1-0.8 [facility] Comment on above: Performed By: #### L IP, LACWB, IOCAL, PT, CDP, CHANDU, PTT, LIPR, CMPX ####[address] [address] Monocytes/100 WBC Auto (Bld) 10 % High 1-7 [facility] Comment on above: Performed By: #### L IP, LACWB, IOCAL, PT, CDP, CHANDU, PTT, LIPR, CMPX ####[address] [address] Morphology Interp Víctor (Bld) ANISOCYTOSIS PRESENT Normal [facility] Comment on above: Result Comment: INCR EASED BANDS PRESENTTOXIC GRANULATION PRESENT Performed By: #### L IP, LACWB, IOCAL, PT, CDP, CHANDU, PTT, LIPR, CMPX ####[address] [address] Neutrophil (Seg) 79 % High 36-66 [facility] Comment on above: Performed By: #### L IP, LACWB, IOCAL, PT, CDP, CHANDU, PTT, LIPR, CMPX ####[address] [address] Erythrocyte distribution width Auto Ratio (RBC) 15.1 % High 11.8-14.4 [facility] Comment on above: Performed By: #### L IP, LACWB, IOCAL, PT, CDP, CHANDU, PTT, LIPR, CMPX ####[address] [address] Hematocrit Auto Volume Fraction (Bld) 35.4 % Low 36.3-47.1 [facility] Comment on above: Performed By: #### L IP, LACWB, IOCAL, PT, CDP, CHANDU, PTT, LIPR, CMPX ####[address] [address] Hemoglobin mass conc (Bld) 10.6 g/dL Low 11.9-15.1 [facility] Comment on above: Performed By: #### L IP, LACWB, IOCAL, PT, CDP, CHANDU, PTT, LIPR, CMPX ####[address] [address] MCH Auto Entitic mass (RBC) 26.3 pg Normal 25.2-33.5 [facility] Comment on above: Performed By: #### L IP, LACWB, IOCAL, PT, CDP, CHANDU, PTT, LIPR, CMPX ####[address] [address] MCHC Auto mass conc (RBC) 29.9 g/dL Normal 28.4-34.8 [facility] Comment on above: Performed By: #### L IP, LACWB, IOCAL, PT, CDP, CHANDU, PTT, LIPR, CMPX ####[address] [address] MCV Auto Entitic volume (RBC) 87.8 fL Normal 82.6-102.9 [facility] Comment on above: Performed By: #### L IP, LACWB, IOCAL, PT, CDP, CHANDU, PTT, LIPR, CMPX ####[place] [address] NRBC Automated 0.1 per 100 WBC High 0.0 [facility] Comment on above: Performed By: #### L IP, LACWB, IOCAL, PT, CDP, CHANDU, PTT, LIPR, CMPX ####[address] [address] Platelet mean volume Auto Entitic volume (Bld) 11.4 fL Normal 8.1-13.5 [facility] Comment on above: Performed By: #### L IP, LACWB, IOCAL, PT, CDP, CHANDU, PTT, LIPR, CMPX ####[place] [address] Platelets Auto #/vol (Bld) 267 10*3/uL Normal 138-453 [facility] Comment on above: Performed By: #### L IP, LACWB, IOCAL, PT, CDP, CHANDU, PTT, LIPR, CMPX ####[address] [address] RBC Auto #/vol (Bld) 4.03 10*6/uL Normal 3.95-5.11 [facility] Comment on above: Performed By: #### L IP, LACWB, IOCAL, PT, CDP, CHANDU, PTT, LIPR, CMPX ####[address] [address] WBC Auto #/vol (Bld) 16.6 10*3/uL High 3.5-11.3 [facility] Comment on above: Performed By: #### L IP, LACWB, IOCAL, PT, CDP, CHANDU, PTT, LIPR, CMPX ####[address] [address] Auto Diff Performed NOT REPORTED Normal [facility] Comment on above: Performed By: #### L IP, LACWB, IOCAL, PT, CDP, CHANDU, PTT, LIPR, CMPX ####[place] [address] Platelets Auto #/vol (Bld) NOT REPORTED Normal [facility] Comment on above: Performed By: #### L IP, LACWB, IOCAL, PT, CDP, CHANDU, PTT, LIPR, CMPX ####[place] [address] RBC morphology finding Nom (Bld) NOT REPORTED Normal [facility] Comment on above: Performed By: #### L IP, LACWB, IOCAL, PT, CDP, CHANDU, PTT, LIPR, CMPX ####[place] [address] WBC Morphology NOT REPORTED Normal [facility] Comment on above: Performed By: #### L IP, LACWB, IOCAL, PT, CDP, CHANDU, PTT, LIPR, CMPX ####[place] [address] Abs. Basophil 0.00 k/uL Normal 0.0-0.2 [facility] Comment on above: Performed By: #### L IP, LACWB, IOCAL, PT, CDP, CHANDU, PTT, LIPR, CMPX ####[place] [address] Abs.Imm.Granulocyt e 0.16 k/uL Normal 0.00-0.30 [facility] Comment on above: Performed By: #### L IP, LACWB, IOCAL, PT, CDP, CHANDU, PTT, LIPR, CMPX ####[facility] [address] [place] [address] Abs.Neutrophil (Seg) 13.34 k/uL High 1.8-7.7 [facility] Comment on above: Performed By: #### L IP, LACWB, IOCAL, PT, CDP, CHANDU, PTT, LIPR, CMPX ####[address] [address] Basophils/100 WBC Auto (Bld) 0 % Normal 0-2 [facility] Comment on above: Performed By: #### L IP, LACWB, IOCAL, PT, CDP, CHANDU, PTT, LIPR, CMPX ####[address] [address] Eosinophils Auto #/vol (Bld) 0.00 10*3/uL Normal 0.0-0.4 [facility] Comment on above: Performed By: #### L IP, LACWB, IOCAL, PT, CDP, CHANDU, PTT, LIPR, CMPX ####[place] [address] Eosinophils/100 WBC Auto (Bld) 0 % Low 1-4 [facility] Comment on above: Performed By: #### L IP, LACWB, IOCAL, PT, CDP, CHANDU, PTT, LIPR, CMPX ####[address] [address] Immature granulocytes #/vol (Bld) 1 % High 0 [facility] Comment on above: Performed By: #### L IP, LACWB, IOCAL, PT, CDP, CHANDU, PTT, LIPR, CMPX ####[address] [address] Lymphocytes Auto #/vol (Bld) 1.10 10*3/uL Normal 1.0-4.8 [facility] Comment on above: Performed By: #### L IP, LACWB, IOCAL, PT, CDP, CHANDU, PTT, LIPR, CMPX ####[address] [address] Lymphocytes/100 WBC Auto (Bld) 7 % Low 24-44 [facility] Comment on above: Performed By: #### L IP, LACWB, IOCAL, PT, CDP, CHANDU, PTT, LIPR, CMPX ####[address] [address] Monocytes Auto #/vol (Bld) 1.10 10*3/uL High 0.1-0.8 [facility] Comment on above: Performed By: #### L IP, LACWB, IOCAL, PT, CDP, CHANDU, PTT, LIPR, CMPX ####[address] [address] Monocytes/100 WBC Auto (Bld) 7 % Normal 1-7 [facility] Comment on above: Performed By: #### L IP, LACWB, IOCAL, PT, CDP, CHANDU, PTT, LIPR, CMPX ####[address] [address] Morphology Interp Víctor (Bld) INCREASED BANDS PRESENT Normal [facility] Comment on above: Result Comment: TOXI C GRANULATION PRESENTANISOCYTOSIS PRESENT Performed By: #### L IP, LACWB, IOCAL, PT, CDP, CHANDU, PTT, LIPR, CMPX ####[address] [address] Neutrophil (Seg) 85 % High 36-66 [facility] Comment on above: Performed By: #### L IP, LACWB, IOCAL, PT, CDP, CHANDU, PTT, LIPR, CMPX ####[address] [address] Erythrocyte distribution width Auto Ratio (RBC) 15.0 % High 11.8-14.4 [facility] Comment on above: Performed By: #### L IP, LACWB, IOCAL, PT, CDP, CHANDU, PTT, LIPR, CMPX ####[address] [address] Hematocrit Auto Volume Fraction (Bld) 35.5 % Low 36.3-47.1 [facility] Comment on above: Performed By: #### L IP, LACWB, IOCAL, PT, CDP, CHANDU, PTT, LIPR, CMPX ####[address] [address] Hemoglobin mass conc (Bld) 10.8 g/dL Low 11.9-15.1 [facility] Comment on above: Performed By: #### L IP, LACWB, IOCAL, PT, CDP, CHANDU, PTT, LIPR, CMPX ####[address] [address] MCH Auto Entitic mass (RBC) 26.5 pg Normal 25.2-33.5 [facility] Comment on above: Performed By: #### L IP, LACWB, IOCAL, PT, CDP, CHANDU, PTT, LIPR, CMPX ####[address] [address] MCHC Auto mass conc (RBC) 30.4 g/dL Normal 28.4-34.8 [facility] Comment on above: Performed By: #### L IP, LACWB, IOCAL, PT, CDP, CHANDU, PTT, LIPR, CMPX ####[address] [address] MCV Auto Entitic volume (RBC) 87.2 fL Normal 82.6-102.9 [facility] Comment on above: Performed By: #### L IP, LACWB, IOCAL, PT, CDP, CHANDU, PTT, LIPR, CMPX ####[place] [address] NRBC Automated 0.0 per 100 WBC Normal 0.0 [facility] Comment on above: Performed By: #### L IP, LACWB, IOCAL, PT, CDP, CHANDU, PTT, LIPR, CMPX ####[address] [address] Platelet mean volume Auto Entitic volume (Bld) 11.7 fL Normal 8.1-13.5 [facility] Comment on above: Performed By: #### L IP, LACWB, IOCAL, PT, CDP, CHANDU, PTT, LIPR, CMPX ####[address] [address] Platelets Auto #/vol (Bld) 260 10*3/uL Normal 138-453 [facility] Comment on above: Performed By: #### L IP, LACWB, IOCAL, PT, CDP, CHANDU, PTT, LIPR, CMPX ####[address] [address] RBC Auto #/vol (Bld) 4.07 10*6/uL Normal 3.95-5.11 [facility] Comment on above: Performed By: #### L IP, LACWB, IOCAL, PT, CDP, CHANDU, PTT, LIPR, CMPX ####[address] [address] WBC Auto #/vol (Bld) 15.7 10*3/uL High 3.5-11.3 [facility] Comment on above: Performed By: #### L IP, LACWB, IOCAL, PT, CDP, CHANDU, PTT, LIPR, CMPX ####[address] [address] Auto Diff Performed NOT REPORTED Normal [facility] Comment on above: Performed By: #### L IP, LACWB, IOCAL, PT, CDP, CHANDU, PTT, LIPR, CMPX ####[facility] [address] [place] [address] Platelets Auto #/vol (Bld) NOT REPORTED Normal [facility] Comment on above: Performed By: #### L IP, LACWB, IOCAL, PT, CDP, CHANDU, PTT, LIPR, CMPX ####[facility] [address] [place] [address] RBC morphology finding Nom (Bld) NOT REPORTED Normal [facility] Comment on above: Performed By: #### L IP, LACWB, IOCAL, PT, CDP, CHANDU, PTT, LIPR, CMPX ####[facility] [address] [place] [address] WBC Morphology NOT REPORTED Normal [facility] Comment on above: Performed By: #### L IP, LACWB, IOCAL, PT, CDP, CHANDU, PTT, LIPR, CMPX ####[facility] [address] [place] [address] CT ABDOMEN PELVIS W IV CONTR Sukumar 11-03-2017 CT ABDOMEN PELVIS W IV CONTRAST EXAMINATION:CT OF THE ABDOMEN AND PELVIS WITH CONTRAST 11/03/2017 11:21 amTECHNIQUE:CT of the abdomen and pelvis was performed with the administration ofintravenous contrast. Multiplanar reformatted images are provided for review.Dose modulation, iterative reconstruction, and/or weight based adjustment ofthe mA/kV was utilized to reduce the radiation dose to as low as reasonablyachievable.COMP ARISON:10/30/2017HISTORY: ORDERING SYSTEM PROVIDED HISTORY: necrotic pancreatitis seen on previous CTfrom outside hospital, and worsening ileus on KUBTECHNOLOGIST PROVIDED HISTORY:FINDINGS:Cardiova scular: AtherosclerosisLower Chest: Small left greater than right pleural effusions. Bibasilaratelectasis.Orga nsLiver: Hepatic steatosis.Gallbladder: UnremarkableBiliary: UnremarkablePancreas: Notable air density is identified in the expected area of the bodyof the pancreas.Spleen: UnremarkableAdrenals: UnremarkableKidneys: UnremarkablePelvisBladder : Partially distended.Reproductive: Unremarkable.GI/ Bowel: Wall thickening and submucosal edema involving the jejunum.Peritoneum/ Retroperitoneum: Ascites. Moderate mesenteric edema.Bones/ Soft Tissues: UnremarkableOther: Nasogastric tube with tip terminating in the body of the stomach.IMPRESSION: 1. Small bowel wall thickening and dilation, for which enteritis or ileusshould be considered. This could additionally be a manifestation of thediffuse inflammatory process. This appears new compared to prior 10/30/2017.2. Changes of necrotizing pancreatitis with air in the expected location ofthe pancreatic body.3. Notable mesenteric fat stranding around the pancreas4. Ascites and anasarca.Interpreted by:VIRGIL Woodsigned by:Abhishek Cat MD11/03/inal result Normal [facility] Calcium, [employer] 11-03-2017 Calcium mass conc 1.21 mmol/L Normal 1.13-1.33 [facility] Comment on above: Performed By: #### L IP, LACWB, IOCAL, PT, CDP, CHANDU, PTT, LIPR, CMPX ####[facility] [address] [place] [address] Comp Metabolic Pr/rfx MGon 0 11-03-2017 (cont.) Normal [facility] Comment on above: Result Comment: Aver age GFR for 60-69 years old: 85 mL/min/1.73sq mChronic Kidney Disease: <60 mL/min/1.73sq mKidney failure: <15 mL/min/1.73sq meGFR calculated using average adult body mass. Additional eGFR calculator available at:http://www.edulio.Flashtalking/multiple_crcl_2012.htm Performed By: #### L IP, LACWB, IOCAL, PT, CDP, CHANDU, PTT, LIPR, CMPX ####[employer] [place] [address] Albumin mass conc 2.3 g/dL Low 3.5-5.2 [facility] Comment on above: Performed By: #### L IP, LACWB, IOCAL, PT, CDP, CHANDU, PTT, LIPR, CMPX ####[address] [place] [address] Albumin/Globulin mass ratio 0.7 {ratio} Low 1.0-2.5 [facility] Comment on above: Performed By: #### L IP, LACWB, IOCAL, PT, CDP, CHANDU, PTT, LIPR, CMPX ####[address] [address] Alkaline Phos 84 U/L Normal 35-104 [facility] Comment on above: Performed By: #### L IP, LACWB, IOCAL, PT, CDP, CHANDU, PTT, LIPR, CMPX ####[address] [address] ALT enzyme act/vol 44 U/L High 5-33 [facility] Comment on above: Performed By: #### L IP, LACWB, IOCAL, PT, CDP, CHANDU, PTT, LIPR, CMPX ####[id number] [place] [address] Anion gap 3 molar conc 12 mmol/L Normal 9-17 [facility] Comment on above: Performed By: #### L IP, LACWB, IOCAL, PT, CDP, CHANDU, PTT, LIPR, CMPX ####[id number] [place] [address] AST enzyme act/vol 43 U/L High <32 [facility] Comment on above: Performed By: #### L IP, LACWB, IOCAL, PT, CDP, CHANDU, PTT, LIPR, CMPX ####[id number] [place] [address] Bilirubin Ql (U) 0.51 mg/dL Normal 0.3-1.2 [facility] Comment on above: Performed By: #### L IP, LACWB, IOCAL, PT, CDP, CHANDU, PTT, LIPR, CMPX ####[address] [place] [id number] [place] [address] Calcium mass conc 8.3 mg/dL Low 8.6-10.4 [facility] Comment on above: Performed By: #### L IP, LACWB, IOCAL, PT, CDP, CHANDU, PTT, LIPR, CMPX ####[address] [address] Chloride molar conc 106 mmol/L Normal 98-107 [facility] Comment on above: Performed By: #### L IP, LACWB, IOCAL, PT, CDP, CHANDU, PTT, LIPR, CMPX ####[address] [address] CO2 molar conc 23 mmol/L Normal 20-31 [facility] Comment on above: Performed By: #### L IP, LACWB, IOCAL, PT, CDP, CHANDU, PTT, LIPR, CMPX ####[address] [address] Creatinine mass conc 0.90 mg/dL Normal 0.50-0.90 [facility] Comment on above: Performed By: #### L IP, LACWB, IOCAL, PT, CDP, CHANDU, PTT, LIPR, CMPX ####[address] [address] GFR, Amer >60 Normal >60 [facility] Comment on above: Performed By: #### L IP, LACWB, IOCAL, PT, CDP, CHANDU, PTT, LIPR, CMPX ####[address] [address] GFR,non Amer >60 Normal >60 [facility] Comment on above: Performed By: #### L IP, LACWB, IOCAL, PT, CDP, CHANDU, PTT, LIPR, CMPX ####[address] [place] [address] Glucose mass conc 151 mg/dL High 70-99 [facility] Comment on above: Performed By: #### L IP, LACWB, IOCAL, PT, CDP, CHANDU, PTT, LIPR, CMPX ####[facility] [address] [place] [address] Potassium molar conc 3.8 mmol/L Normal 3.7-5.3 [facility] Comment on above: Performed By: #### L IP, LACWB, IOCAL, PT, CDP, CHANDU, PTT, LIPR, CMPX ####[address] [place] [address] Protein mass conc 5.7 g/dL Low 6.4-8.3 [facility] Comment on above: Performed By: #### L IP, LACWB, IOCAL, PT, CDP, CHANDU, PTT, LIPR, CMPX ####[facility] [place] [address] Sodium molar conc 141 mmol/L Normal 135-144 [facility] Comment on above: Performed By: #### L IP, LACWB, IOCAL, PT, CDP, CHANDU, PTT, LIPR, CMPX ####[facility] [place] [address] Urea nitrogen mass conc 26 mg/dL High 8-23 [facility] Comment on above: Performed By: #### L IP, LACWB, IOCAL, PT, CDP, CHANDU, PTT, LIPR, CMPX ####[address] [place] [address] BUN/CRE Ratio NOT REPORTED Normal 9-20 [facility] Comment on above: Performed By: #### L IP, LACWB, IOCAL, PT, CDP, CHANDU, PTT, LIPR, CMPX ####[address] [place] [address] Staging: NOT REPORTED Normal [facility] Comment on above: Performed By: #### L IP, LACWB, IOCAL, PT, CDP, CHANDU, PTT, LIPR, CMPX ####[facility] [address] [place] [address] Cult,Urine,Cathon 11-03-2017 Cult,Urine,Cath Specimen Description .CATHETERIZED URINE Special Requests NOT REPORTED Culture NO GROWTH Report Status FINAL 11/02/2017 Normal [facility] Comment on above: Performed By: #### L IP, LACWB, IOCAL, PT, CDP, CHANDU, PTT, LIPR, CMPX ####[facility] [address] [place] [address] Discharge Summaryon 11-04-19 18 HIM IP Note OR Extras Casting Director Normal [facility] Plan of Careon 11-03-2017 HIM IP Note OR Extras Casting Director Normal [facility] HIM IP Note OR Extras Casting Director Normal [facility] Progress Noteon 11-03-2017 HIM IP Note OR Extras Casting Director Normal [facility] HIM IP Note OR Extras Casting Director Normal [facility] HIM IP Note OR Extras Casting Director Normal [facility] HIM IP Note OR Extras Casting Director Normal [facility] XR ABDOMEN (KUB) (SINGLE AP VIEW)on 11-03-2017 XR ABDOMEN (KUB) (SINGLE AP VIEW) EXAMINATION:SINGLE SUPINE XRAY VIEW(S) OF THE ABDOMEN11/03/2017 8:42 amCOMPARISON:CT abdomen pelvis from 10/30/2017HISTORY:[employer] PROVIDED HISTORY: reeval ileusTECHNOLOGIST PROVIDED HISTORY:reeval -lyzw-pfz female; re-evaluate ileusFINDINGS:Portable supine view of the abdomen.Enteric tube traverses the GE junction with distal tip overlying the midmidline abdomen, likely within the body of the stomach. Blunting of the leftcostophrenic angle may represent chronic pleural thickening versus smallleft-sided pleural effusion. Stable left basilar opacity, atelectasis,infiltrate, or mild scarring.surgical scrub technician leads overlie the abdomen. Mild diffuse degenerative changesthroughout the spine.Gas in the left upper quadrant is again noted consistent with the findings onCT with suspected pancreatic necrosis.Persistent marked dilation of the small bowel loops and prominence of thevalvuli conniventes which is similar to the prior study measuring up to 4.6cm transversely. There is gaseous distention of the colon. Mild stoolburden. Moderate stool projects over the rectosigmoid colon.IMPRESSION: 1. Intra-abdominal air in the left upper quadrant again noted consistent withthe known findings on CT from 10/30/2017 with suspected pancreatic necrosis.2. Enteric tube with distal tip overlying the mid midline abdomen, likelywithin the body of the stomach.3. Small left-sided pleural effusion with left basilar airspace disease.4. Persistent marked dilation of small bowel loops and prominence of thevalvuli conniventes, similar to the prior exam. Partial small bowelobstruction versus ileus remain differential considerations. Mild stoolburden. Gaseous distention of the colon. Consider furtherevaluation/re-eval uation with CT in order to better compare/re-evaluate theknown findings involving the pancreas and small bowel to the prior 10/30/2017exam.The findings were sent to the [facility] at 9:17am on 11/03/2017to be communicated to a licensed caregiver.Interpreted by:VIRGIL Gutierrezigned by:Braeden Chavez MD11/03/17inal result Normal [facility] APTTon 11-02-2017 aPTT Coag time (Bld) 27.1 s Normal 20.5-30.5 [facility] Comment on above: Performed By: #### L IP, LACWB, IOCAL, PT, CDP, CHANDU, PTT, LIPR, CMPX ####[facility] [address] [place], [place] [id number] Amylaseon 11-02-2017 Amylase enzyme act/vol 104 U/L High 28-100 [facility] Comment on above: Performed By: #### L IP, LACWB, IOCAL, PT, CDP, CHANDU, PTT, LIPR, CMPX ####[facility] [address] [place] [address] CBC with Diffon 11-02-2017 Abs. Basophil 0.00 k/uL Normal 0.00-0.20 [facility] Comment on above: Performed By: #### L IP, LACWB, IOCAL, PT, CDP, CHANDU, PTT, LIPR, CMPX ####[address] [place] [address] Abs.Imm.Granulocyt e 0.14 k/uL Normal 0.00-0.30 [facility] Comment on above: Performed By: #### L IP, LACWB, IOCAL, PT, CDP, CHANDU, PTT, LIPR, CMPX ####[place] [address] Abs.Neutrophil (Seg) 11.01 k/uL High 1.50-8.10 [facility] Comment on above: Performed By: #### L IP, LACWB, IOCAL, PT, CDP, CHANDU, PTT, LIPR, CMPX ####[place] [address] Basophils/100 WBC Auto (Bld) 0 % Normal 0-2 [facility] Comment on above: Performed By: #### L IP, LACWB, IOCAL, PT, CDP, CHANDU, PTT, LIPR, CMPX ####[place] [address] Eosinophils Auto #/vol (Bld) 0.00 10*3/uL Normal 0.00-0.44 [facility] Comment on above: Performed By: #### L IP, LACWB, IOCAL, PT, CDP, CHANDU, PTT, LIPR, CMPX ####[address] [address] Eosinophils/100 WBC Auto (Bld) 0 % Low 1-4 [facility] Comment on above: Performed By: #### L IP, LACWB, IOCAL, PT, CDP, CHANDU, PTT, LIPR, CMPX ####[address] [address] Immature granulocytes #/vol (Bld) 1 % High 0 [facility] Comment on above: Performed By: #### L IP, LACWB, IOCAL, PT, CDP, CHANDU, PTT, LIPR, CMPX ####[address] [address] Lymphocytes Auto #/vol (Bld) 1.09 10*3/uL Low 1.10-3.70 [facility] Comment on above: Performed By: #### L IP, LACWB, IOCAL, PT, CDP, CHANDU, PTT, LIPR, CMPX ####[address] [address] Lymphocytes/100 WBC Auto (Bld) 8 % Low 24-43 [facility] Comment on above: Performed By: #### L IP, LACWB, IOCAL, PT, CDP, CHANDU, PTT, LIPR, CMPX ####[address] [address] Monocytes Auto #/vol (Bld) 1.36 10*3/uL High 0.10-1.20 [facility] Comment on above: Performed By: #### L IP, LACWB, IOCAL, PT, CDP, CHANDU, PTT, LIPR, CMPX ####[address] [address] Monocytes/100 WBC Auto (Bld) 10 % Normal 3-12 [facility] Comment on above: Performed By: #### L IP, LACWB, IOCAL, PT, CDP, CHANDU, PTT, LIPR, CMPX ####[address] [address] Morphology Interp Víctor (Bld) ANISOCYTOSIS PRESENT Normal [facility] Comment on above: Result Comment: TOXI C GRANULATION PRESENT Performed By: #### L IP, LACWB, IOCAL, PT, CDP, CHANDU, PTT, LIPR, CMPX ####[address] [address] Neutrophil (Seg) 81 % High 36-65 [facility] Comment on above: Performed By: #### L IP, LACWB, IOCAL, PT, CDP, CHANDU, PTT, LIPR, CMPX ####[address] [address] NRBC Automated 0.0 per 100 WBC Normal 0.0 [facility] Comment on above: Performed By: #### L IP, LACWB, IOCAL, PT, CDP, CHANDU, PTT, LIPR, CMPX ####[address] [address] Platelet mean volume Auto Entitic volume (Bld) 11.5 fL Normal 8.1-13.5 [facility] Comment on above: Performed By: #### L IP, LACWB, IOCAL, PT, CDP, CHANDU, PTT, LIPR, CMPX ####[address] [address] Platelets Auto #/vol (Bld) 231 10*3/uL Normal 138-453 [facility] Comment on above: Performed By: #### L IP, LACWB, IOCAL, PT, CDP, CHANDU, PTT, LIPR, CMPX ####[address] [address] WBC Auto #/vol (Bld) 13.6 10*3/uL High 3.5-11.3 [facility] Comment on above: Performed By: #### L IP, LACWB, IOCAL, PT, CDP, CHANDU, PTT, LIPR, CMPX ####[address] [address] Erythrocyte distribution width Auto Ratio (RBC) 14.8 % High 11.8-14.4 [facility] Comment on above: Performed By: #### L IP, LACWB, IOCAL, PT, CDP, CHANDU, PTT, LIPR, CMPX ####[address] [address] Hematocrit Auto Volume Fraction (Bld) 34.5 % Low 36.3-47.1 [facility] Comment on above: Performed By: #### L IP, LACWB, IOCAL, PT, CDP, CHANDU, PTT, LIPR, CMPX ####[address] [address] Hemoglobin mass conc (Bld) 10.3 g/dL Low 11.9-15.1 [facility] Comment on above: Performed By: #### L IP, LACWB, IOCAL, PT, CDP, CHANDU, PTT, LIPR, CMPX ####[address] [address] MCH Auto Entitic mass (RBC) 26.3 pg Normal 25.2-33.5 [facility] Comment on above: Performed By: #### L IP, LACWB, IOCAL, PT, CDP, CHANDU, PTT, LIPR, CMPX ####[address] [address] MCHC Auto mass conc (RBC) 29.9 g/dL Normal 28.4-34.8 [facility] Comment on above: Performed By: #### L IP, LACWB, IOCAL, PT, CDP, CHANDU, PTT, LIPR, CMPX ####[address] [address] MCV Auto Entitic volume (RBC) 88.0 fL Normal 82.6-102.9 [facility] Comment on above: Performed By: #### L IP, LACWB, IOCAL, PT, CDP, CHANDU, PTT, LIPR, CMPX ####[place] [address] RBC Auto #/vol (Bld) 3.92 10*6/uL Low 3.95-5.11 [facility] Comment on above: Performed By: #### L IP, LACWB, IOCAL, PT, CDP, CHANDU, PTT, LIPR, CMPX ####[place] [address] Auto Diff Performed NOT REPORTED Normal [facility] Comment on above: Performed By: #### L IP, LACWB, IOCAL, PT, CDP, CHANDU, PTT, LIPR, CMPX ####[place] [address] Platelets Auto #/vol (Bld) NOT REPORTED Normal [facility] Comment on above: Performed By: #### L IP, LACWB, IOCAL, PT, CDP, CHANDU, PTT, LIPR, CMPX ####[place] [address] RBC morphology finding Nom (Bld) NOT REPORTED Normal [facility] Comment on above: Performed By: #### L IP, LACWB, IOCAL, PT, CDP, CHANDU, PTT, LIPR, CMPX ####[place] [address] WBC Morphology NOT REPORTED Normal [facility] Comment on above: Performed By: #### L IP, LACWB, IOCAL, PT, CDP, CHANDU, PTT, LIPR, CMPX ####[place] [address] Abs. Basophil 0.00 k/uL Normal 0.0-0.2 [facility] Comment on above: Performed By: #### L IP, LACWB, IOCAL, PT, CDP, CHANDU, PTT, LIPR, CMPX ####[address] [address] Abs.Imm.Granulocyt e 0.12 k/uL Normal 0.00-0.30 [facility] Comment on above: Performed By: #### L IP, LACWB, IOCAL, PT, CDP, CHANDU, PTT, LIPR, CMPX ####[address] [address] Abs.Neutrophil (Seg) 9.24 k/uL High 1.8-7.7 [facility] Comment on above: Performed By: #### L IP, LACWB, IOCAL, PT, CDP, CHANDU, PTT, LIPR, CMPX ####[address] [address] Basophils/100 WBC Auto (Bld) 0 % Normal 0-2 [facility] Comment on above: Performed By: #### L IP, LACWB, IOCAL, PT, CDP, CHANDU, PTT, LIPR, CMPX ####[place] [address] Eosinophils Auto #/vol (Bld) 0.00 10*3/uL Normal 0.0-0.4 [facility] Comment on above: Performed By: #### L IP, LACWB, IOCAL, PT, CDP, CHANDU, PTT, LIPR, CMPX ####[address] [address] Eosinophils/100 WBC Auto (Bld) 0 % Low 1-4 [facility] Comment on above: Performed By: #### L IP, LACWB, IOCAL, PT, CDP, CHANDU, PTT, LIPR, CMPX ####[address] [address] Immature granulocytes #/vol (Bld) 1 % High 0 [facility] Comment on above: Performed By: #### L IP, LACWB, IOCAL, PT, CDP, CHANDU, PTT, LIPR, CMPX ####[address] [address] Lymphocytes Auto #/vol (Bld) 1.05 10*3/uL Normal 1.0-4.8 [facility] Comment on above: Performed By: #### L IP, LACWB, IOCAL, PT, CDP, CHANDU, PTT, LIPR, CMPX ####[address] [address] Lymphocytes/100 WBC Auto (Bld) 9 % Low 24-44 [facility] Comment on above: Performed By: #### L IP, LACWB, IOCAL, PT, CDP, CHANDU, PTT, LIPR, CMPX ####[address] [address] Monocytes Auto #/vol (Bld) 1.29 10*3/uL High 0.1-0.8 [facility] Comment on above: Performed By: #### L IP, LACWB, IOCAL, PT, CDP, CHANDU, PTT, LIPR, CMPX ####[address] [address] Monocytes/100 WBC Auto (Bld) 11 % High 1-7 [facility] Comment on above: Performed By: #### L IP, LACWB, IOCAL, PT, CDP, CHANDU, PTT, LIPR, CMPX ####[address] [address] Morphology Interp Víctor (Bld) ANISOCYTOSIS PRESENT Normal [facility] Comment on above: Performed By: #### L IP, LACWB, IOCAL, PT, CDP, CHANDU, PTT, LIPR, CMPX ####[address] [address] Neutrophil (Seg) 79 % High 36-66 [facility] Comment on above: Performed By: #### L IP, LACWB, IOCAL, PT, CDP, CHANDU, PTT, LIPR, CMPX ####[address] [address] NRBC Automated 0.0 per 100 WBC Normal 0.0 [facility] Comment on above: Performed By: #### L IP, LACWB, IOCAL, PT, CDP, CHANDU, PTT, LIPR, CMPX ####[address] [address] Platelet mean volume Auto Entitic volume (Bld) 11.8 fL Normal 8.1-13.5 [facility] Comment on above: Performed By: #### L IP, LACWB, IOCAL, PT, CDP, CHANDU, PTT, LIPR, CMPX ####[place] [address] Platelets Auto #/vol (Bld) 201 10*3/uL Normal 138-453 [facility] Comment on above: Performed By: #### L IP, LACWB, IOCAL, PT, CDP, CHANDU, PTT, LIPR, CMPX ####[address] [address] WBC Auto #/vol (Bld) 11.7 10*3/uL High 3.5-11.3 [facility] Comment on above: Performed By: #### L IP, LACWB, IOCAL, PT, CDP, CHANDU, PTT, LIPR, CMPX ####[address] [address] Erythrocyte distribution width Auto Ratio (RBC) 14.7 % High 11.8-14.4 [facility] Comment on above: Performed By: #### L IP, LACWB, IOCAL, PT, CDP, CHANDU, PTT, LIPR, CMPX ####[address] [address] Hematocrit Auto Volume Fraction (Bld) 33.3 % Low 36.3-47.1 [facility] Comment on above: Performed By: #### L IP, LACWB, IOCAL, PT, CDP, CHANDU, PTT, LIPR, CMPX ####[address] [address] Hemoglobin mass conc (Bld) 10.3 g/dL Low 11.9-15.1 [facility] Comment on above: Performed By: #### L IP, LACWB, IOCAL, PT, CDP, CHANDU, PTT, LIPR, CMPX ####[address] [address] MCH Auto Entitic mass (RBC) 27.0 pg Normal 25.2-33.5 [facility] Comment on above: Performed By: #### L IP, LACWB, IOCAL, PT, CDP, CHANDU, PTT, LIPR, CMPX ####[address] [address] MCHC Auto mass conc (RBC) 30.9 g/dL Normal 28.4-34.8 [facility] Comment on above: Performed By: #### L IP, LACWB, IOCAL, PT, CDP, CHANDU, PTT, LIPR, CMPX ####[address] [address] MCV Auto Entitic volume (RBC) 87.4 fL Normal 82.6-102.9 [facility] Comment on above: Performed By: #### L IP, LACWB, IOCAL, PT, CDP, CHANDU, PTT, LIPR, CMPX ####[address] [address] RBC Auto #/vol (Bld) 3.81 10*6/uL Low 3.95-5.11 [facility] Comment on above: Performed By: #### L IP, LACWB, IOCAL, PT, CDP, CHANDU, PTT, LIPR, CMPX ####[address] [address] Auto Diff Performed NOT REPORTED Normal [facility] Comment on above: Performed By: #### L IP, LACWB, IOCAL, PT, CDP, CHANDU, PTT, LIPR, CMPX ####[address] [address] Platelets Auto #/vol (Bld) NOT REPORTED Normal [facility] Comment on above: Performed By: #### L IP, LACWB, IOCAL, PT, CDP, CHANDU, PTT, LIPR, CMPX ####[address] [address] RBC morphology finding Nom (Bld) NOT REPORTED Normal [facility] Comment on above: Performed By: #### L IP, LACWB, IOCAL, PT, CDP, CHANDU, PTT, LIPR, CMPX ####[address] [address] WBC Morphology NOT REPORTED Normal [facility] Comment on above: Performed By: #### L IP, LACWB, IOCAL, PT, CDP, CHANDU, PTT, LIPR, CMPX ####[address] [address] Calcium, Ionicon 11-02-2017 Calcium mass conc 1.08 mmol/L Low 1.13-1.33 [facility] Comment on above: Performed By: #### L IP, LACWB, IOCAL, PT, CDP, CHANDU, PTT, LIPR, CMPX ####[address] [address] Comp Metabolic Pr/rfx MGon 0 11-02-2017 (cont.) Normal [facility] Comment on above: Result Comment: Aver age GFR for 60-69 years old: 85 mL/min/1.73sq mChronic Kidney Disease: <60 mL/min/1.73sq mKidney failure: <15 mL/min/1.73sq meGFR calculated using average adult body mass. Additional eGFR calculator available at:http://www.Ready/multiple_crcl_2012.htm Performed By: #### L IP, LACWB, IOCAL, PT, CDP, CHANDU, PTT, LIPR, CMPX ####[facility] [address] [place] [address] Albumin mass conc 2.5 g/dL Low 3.5-5.2 [facility] Comment on above: Performed By: #### L IP, LACWB, IOCAL, PT, CDP, CHANDU, PTT, LIPR, CMPX ####[address] [place] [address] Albumin/Globulin mass ratio 0.7 {ratio} Low 1.0-2.5 [facility] Comment on above: Performed By: #### L IP, LACWB, IOCAL, PT, CDP, CHANDU, PTT, LIPR, CMPX ####[address] [place] [address] Alkaline Phos 74 U/L Normal 35-104 [facility] Comment on above: Performed By: #### L IP, LACWB, IOCAL, PT, CDP, CHANDU, PTT, LIPR, CMPX ####[facility] [place] [address] ALT enzyme act/vol 63 U/L High 5-33 [facility] Comment on above: Performed By: #### L IP, LACWB, IOCAL, PT, CDP, CHANDU, PTT, LIPR, CMPX ####[address] [place] [address] Anion gap 3 molar conc 14 mmol/L Normal 9-17 [facility] Comment on above: Performed By: #### L IP, LACWB, IOCAL, PT, CDP, CHANDU, PTT, LIPR, CMPX ####[address] [place] [address] AST enzyme act/vol 33 U/L High <32 [facility] Comment on above: Performed By: #### L IP, LACWB, IOCAL, PT, CDP, CHANDU, PTT, LIPR, CMPX ####[facility] [address] [place] [address] Bilirubin Ql (U) 0.80 mg/dL Normal 0.3-1.2 [facility] Comment on above: Performed By: #### L IP, LACWB, IOCAL, PT, CDP, CHANDU, PTT, LIPR, CMPX ####[address] [address] Calcium mass conc 8.1 mg/dL Low 8.6-10.4 [facility] Comment on above: Performed By: #### L IP, LACWB, IOCAL, PT, CDP, CHANDU, PTT, LIPR, CMPX ####[address] [place] [address] Chloride molar conc 105 mmol/L Normal 98-107 [facility] Comment on above: Performed By: #### L IP, LACWB, IOCAL, PT, CDP, CHANDU, PTT, LIPR, CMPX ####[address] [place] [address] CO2 molar conc 22 mmol/L Normal 20-31 [facility] Comment on above: Performed By: #### L IP, LACWB, IOCAL, PT, CDP, CHANDU, PTT, LIPR, CMPX ####[address] [place] [address] Creatinine mass conc 0.85 mg/dL Normal 0.50-0.90 [facility] Comment on above: Performed By: #### L IP, LACWB, IOCAL, PT, CDP, CHANDU, PTT, LIPR, CMPX ####[address] [place] [address] GFR, Amer >60 Normal >60 [facility] Comment on above: Performed By: #### L IP, LACWB, IOCAL, PT, CDP, CHANDU, PTT, LIPR, CMPX ####[facility] [address] [place] [address] GFR,non Amer >60 Normal >60 [facility] Comment on above: Performed By: #### L IP, LACWB, IOCAL, PT, CDP, CHANDU, PTT, LIPR, CMPX ####[address] [place] [address] Glucose mass conc 118 mg/dL High 70-99 [facility] Comment on above: Performed By: #### L IP, LACWB, IOCAL, PT, CDP, CHANDU, PTT, LIPR, CMPX ####[facility] [address] [place] [address] Potassium molar conc 3.8 mmol/L Normal 3.7-5.3 [facility] Comment on above: Performed By: #### L IP, LACWB, IOCAL, PT, CDP, CHANDU, PTT, LIPR, CMPX ####[facility] [address] [place] [address] Protein mass conc 5.9 g/dL Low 6.4-8.3 [facility] Comment on above: Performed By: #### L IP, LACWB, IOCAL, PT, CDP, CHANDU, PTT, LIPR, CMPX ####[facility] [address] [place] [address] Sodium molar conc 141 mmol/L Normal 135-144 [facility] Comment on above: Performed By: #### L IP, LACWB, IOCAL, PT, CDP, CHANDU, PTT, LIPR, CMPX ####[facility] [address] [place] [address] Urea nitrogen mass conc 17 mg/dL Normal 8- [facility] Comment on above: Performed By: #### L IP, LACWB, IOCAL, PT, CDP, CHANDU, PTT, LIPR, CMPX ####[facility] [address] [place] [address] BUN/CRE Ratio NOT REPORTED Normal 9- [facility] Comment on above: Performed By: #### L IP, LACWB, IOCAL, PT, CDP, CHANDU, PTT, LIPR, CMPX ####[address] [place] [address] Staging: NOT REPORTED Normal [facility] Comment on above: Performed By: #### L IP, LACWB, IOCAL, PT, CDP, CHANDU, PTT, LIPR, CMPX ####[address] [address] (cont.) Normal [facility] Comment on above: Result Comment: Aver age GFR for 60-69 years old: 85 mL/min/1.73sq mChronic Kidney Disease: <60 mL/min/1.73sq mKidney failure: <15 mL/min/1.73sq meGFR calculated using average adult body mass. Additional eGFR calculator available at:http://www.edulio.com/multiple_crcl_2012.htm Performed By: #### L IP, LACWB, IOCAL, PT, CDP, CHANDU, PTT, LIPR, CMPX ####[facility] [address] [place] [address] Albumin mass conc 2.4 g/dL Low 3.5-5.2 [facility] Comment on above: Performed By: #### L IP, LACWB, IOCAL, PT, CDP, CHANDU, PTT, LIPR, CMPX ####[address] [address] Albumin/Globulin mass ratio 0.7 {ratio} Low 1.0-2.5 [facility] Comment on above: Performed By: #### L IP, LACWB, IOCAL, PT, CDP, CHANDU, PTT, LIPR, CMPX ####[address] [address] Alkaline Phos 73 U/L Normal 35-104 [facility] Comment on above: Performed By: #### L IP, LACWB, IOCAL, PT, CDP, CHANDU, PTT, LIPR, CMPX ####[address] [address] ALT enzyme act/vol 71 U/L High 5-33 [facility] Comment on above: Performed By: #### L IP, LACWB, IOCAL, PT, CDP, CHANDU, PTT, LIPR, CMPX ####[address] [address] Anion gap 3 molar conc 9 mmol/L Normal 9-17 [facility] Comment on above: Performed By: #### L IP, LACWB, IOCAL, PT, CDP, CHANDU, PTT, LIPR, CMPX ####[id number] [place] [address] AST enzyme act/vol 34 U/L High <32 [facility] Comment on above: Performed By: #### L IP, LACWB, IOCAL, PT, CDP, CHANDU, PTT, LIPR, CMPX ####[id number] [place] [address] Bilirubin Ql (U) 0.87 mg/dL Normal 0.3-1.2 [facility] Comment on above: Performed By: #### L IP, LACWB, IOCAL, PT, CDP, CHANDU, PTT, LIPR, CMPX ####[address] [address] Calcium mass conc 7.8 mg/dL Low 8.6-10.4 [facility] Comment on above: Performed By: #### L IP, LACWB, IOCAL, PT, CDP, CHANDU, PTT, LIPR, CMPX ####[place] [address] Chloride molar conc 108 mmol/L High 98-107 [facility] Comment on above: Performed By: #### L IP, LACWB, IOCAL, PT, CDP, CHANDU, PTT, LIPR, CMPX ####[address] [address] CO2 molar conc 22 mmol/L Normal 20-31 [facility] Comment on above: Performed By: #### L IP, LACWB, IOCAL, PT, CDP, CHANDU, PTT, LIPR, CMPX ####[address] [address] Creatinine mass conc 0.77 mg/dL Normal 0.50-0.90 [facility] Comment on above: Performed By: #### L IP, LACWB, IOCAL, PT, CDP, CHANDU, PTT, LIPR, CMPX ####[address] [address] GFR, Amer >60 Normal >60 [facility] Comment on above: Performed By: #### L IP, LACWB, IOCAL, PT, CDP, CHANDU, PTT, LIPR, CMPX ####[address] [address] GFR,non Amer >60 Normal >60 [facility] Comment on above: Performed By: #### L IP, LACWB, IOCAL, PT, CDP, CHANDU, PTT, LIPR, CMPX ####[address] [place] [address] Glucose mass conc 100 mg/dL High 70-99 [facility] Comment on above: Performed By: #### L IP, LACWB, IOCAL, PT, CDP, CHANDU, PTT, LIPR, CMPX ####[address] [place] [address] Potassium molar conc 3.7 mmol/L Normal 3.7-5.3 [facility] Comment on above: Performed By: #### L IP, LACWB, IOCAL, PT, CDP, CHANDU, PTT, LIPR, CMPX ####[address] [place] [address] Protein mass conc 5.7 g/dL Low 6.4-8.3 [facility] Comment on above: Performed By: #### L IP, LACWB, IOCAL, PT, CDP, CHANDU, PTT, LIPR, CMPX ####[address] [place] [address] Sodium molar conc 139 mmol/L Normal 135-144 [facility] Comment on above: Performed By: #### L IP, LACWB, IOCAL, PT, CDP, CHANDU, PTT, LIPR, CMPX ####[address] [place] [address] Urea nitrogen mass conc 14 mg/dL Normal 8-23 [facility] Comment on above: Performed By: #### L IP, LACWB, IOCAL, PT, CDP, CHANDU, PTT, LIPR, CMPX ####[address] [place] [address] BUN/CRE Ratio NOT REPORTED Normal 9-20 [facility] Comment on above: Performed By: #### L IP, LACWB, IOCAL, PT, CDP, CHANDU, PTT, LIPR, CMPX ####[address] [address] Staging: NOT REPORTED Normal [facility] Comment on above: Performed By: #### L IP, LACWB, IOCAL, PT, CDP, CHANDU, PTT, LIPR, CMPX ####[address] [address] Consulton 11-02-2017 HIM IP Note OR Extras Casting Director Normal [facility] Hgb/Hcton 11-02-2017 Hematocrit Auto Volume Fraction (Bld) 35.4 % Low 36.3-47.1 [facility] Comment on above: Performed By: #### L IP, LACWB, IOCAL, PT, CDP, CHANDU, PTT, LIPR, CMPX ####[address] [address] Hemoglobin mass conc (Bld) 10.6 g/dL Low 11.9-15.1 [facility] Comment on above: Performed By: #### L IP, LACWB, IOCAL, PT, CDP, CHANDU, PTT, LIPR, CMPX ####[address] [address] Hematocrit Auto Volume Fraction (Bld) 34.1 % Low 36.3-47.1 [facility] Comment on above: Performed By: #### L IP, LACWB, IOCAL, PT, CDP, CHANDU, PTT, LIPR, CMPX ####[address] [place] [address] Hemoglobin mass conc (Bld) 10.4 g/dL Low 11.9-15.1 [facility] Comment on above: Performed By: #### L IP, LACWB, IOCAL, PT, CDP, CHANDU, PTT, LIPR, CMPX ####[address] [address] Lactic Acid,Whole Blon 11-02 Lactic Acid,Whole Bl 1.1 mmol/L Normal 0.7-2.1 [facility] Comment on above: Performed By: #### L IP, LACWB, IOCAL, PT, CDP, CHANDU, PTT, LIPR, CMPX ####[address] [place] [address] Lipaseon 11-02-2017 Lipase enzyme act/vol 54 U/L Normal 13-60 [facility] Comment on above: Performed By: #### L IP, LACWB, IOCAL, PT, CDP, CHANDU, PTT, LIPR, CMPX ####[address] [address] Lipid Profileon 11-02-2017 Cholesterol in HDL mass conc 16 mg/dL Low >40 [facility] Comment on above: Result Comment: HDL Guidelines: <40 Undesirable 40-59 Borderline >59 Desirable Performed By: #### L IP, LACWB, IOCAL, PT, CDP, CHANDU, PTT, LIPR, CMPX ####[address] [address] Cholesterol in LDL mass conc 55 mg/dL Normal 0-130 [facility] Comment on above: Result Comment: LDL Guidelines: <100 Desirable 100-129 Near to/above Desirable 130-159 Borderline >159 UndesirableDirect (measured) LDL and calculated LDL are not interchangeable tests. Performed By: #### L IP, LACWB, IOCAL, PT, CDP, CHANDU, PTT, LIPR, CMPX ####[facility] [address] [place] [address] Cholesterol mass conc 96 mg/dL Normal <200 [facility] Comment on above: Result Comment: Chol esterol Guidelines: <200 Desirable 200-240 Borderline >240 Undesirable Performed By: #### L IP, LACWB, IOCAL, PT, CDP, CHANDU, PTT, LIPR, CMPX ####[address] [place] [address] Cholesterol.total/ Cholesterol in HDL mass ratio 6.0 {ratio} High <5 [facility] Comment on above: Performed By: #### L IP, LACWB, IOCAL, PT, CDP, CHANDU, PTT, LIPR, CMPX ####[facility] [address] [place] [address] Triglyceride mass conc 127 mg/dL Normal <150 [facility] Comment on above: Result Comment: Trig lyceride Guidelines: <150 Desirable 150- 199 Borderline 200-499 High >499 Very high Based on AHA Guidelines for fasting triglyceride, November 2011. Performed By: #### L IP, LACWB, IOCAL, PT, CDP, CHANDU, PTT, LIPR, CMPX ####[facility] [address] [place] [address] Cholesterol in VLDL mass conc NOT REPORTED Normal 1-30 [facility] Comment on above: Performed By: #### L IP, LACWB, IOCAL, PT, CDP, CHANDU, PTT, LIPR, CMPX ####[facility] [address] [place] [address] MRSA, DNA, Nasalon 8 MRSA, DNA, Nasal NEGATIVE: MRSA DNA n ot detected by nucleic acid amplification. Normal NMRSAA [facility] Comment on above: Result Comment: Resu lts should be used as an adjunct to nosocomial control efforts to identify patients needing enhanced precautions.The test is not intended to identify patients with staphylococcal infections. Results should not be used to guide or monitor treatment for MRSA infections. Performed By: #### L IP, LACWB, IOCAL, PT, CDP, CHANDU, PTT, LIPR, CMPX ####[facility] [address] [place] [address] Magnesiumon 11-02-2017 Magnesium mass conc 2.2 mg/dL Normal 1.6-2.6 [facility] Comment on above: Performed By: #### L IP, LACWB, IOCAL, PT, CDP, CHANDU, PTT, LIPR, CMPX ####[facility] [place], [place] [id number] PTon 11-02-2017 INR Coag RelTime (PPP) 1.0 {INR} Normal [facility] Comment on above: Result Comment: Ther apeutic Range: Moderate Anticoagulant Intensity: INR = 2.0-3.0 High Anticoagulant Intensity: INR = 2.5-3.5 Performed By: #### L IP, LACWB, IOCAL, PT, CDP, CHANDU, PTT, LIPR, CMPX ####[facility] [address] [place], [place] [id number] Prothrombin time (PT) Coag time (PPP) 10.5 s Normal 9.0-12.0 [facility] Comment on above: Performed By: #### L IP, LACWB, IOCAL, PT, CDP, CHANDU, PTT, LIPR, CMPX ####[facility] [address] [place] [address] Plan of Careon 11-02-2017 HIM IP Note OR Extras Casting Director Normal [facility] HIM IP Note OR Extras Casting Director Normal [facility] Progress Noteon 11-02-2017 HIM IP Note OR Extras Casting Director Normal [facility] HIM IP Note OR Extras Casting Director Normal [facility] HIM IP Note OR Extras Casting Director Normal [facility] HIM IP Note OR Extras Casting Director Normal [facility] HIM IP Note OR Extras Casting Director Normal [facility] XR ABDOMEN (KUB) (SINGLE AP VIEW)on 11-02-2017 XR ABDOMEN (KUB) (SINGLE AP VIEW) EXAMINATION:SINGLE SUPINE XRAY VIEW(S) OF THE ABDOMEN11/02/2017 4:47 pmCOMPARISON:Radiographs from 11/01/2017HISTORY:BOWENIN G SYSTEM PROVIDED HISTORY: abd distentionTECHNOLOGIST PROVIDED HISTORY:Bedside pleaseabd distentionFINDINGS:Enteri c tube passes beneath the diaphragm. Diffuse bowel distention ispresent. Maximum diameter of small bowel measures 4.7 cm. Overall, boweldistention appears slightly worsened since prior study. Distal gas ispresent. Findings favor severe ileus. No pneumatosis. No portal venous gasradiographically.IMPRE SSION: Worsening bowel distention diffusely with distal air present. Findings favorsevere ileus.Interpreted by:Moses Tyson MDSigned by:Moses Tyson MD11/02/17inal result Normal [facility] Consulton 11-01-2017 HIM IP Note OR Extras Casting Director Normal [facility] History and Physicalon 11-01 HIM IP Note OR Extras Casting Director Normal [facility] MRSA, DNA, Nasalon 8 Specimen Description .NASAL SWAB Normal [facility] Comment on above: Performed By: #### L IP, LACWB, IOCAL, PT, CDP, CHANDU, PTT, LIPR, CMPX ####[facility] [address] [place] [address] XR ABDOMEN (KUB) (SINGLE AP VIEW)on 11-01-2017 XR ABDOMEN (KUB) (SINGLE AP VIEW) EXAMINATION:SINGLE SUPINE XRAY VIEW(S) OF THE ABDOMEN11/01/2017 7:46 pmCOMPARISON:None.HISTORY :ORDERING SYSTEM PROVIDED HISTORY: ileusTECHNOLOGIST PROVIDED HISTORY:ileusFINDINGS:The re is mild diffuse gas distention of small and large bowel loops. Novisualized pneumatosis. Assessment for free air is limited on the supineviews. No acute osseous abnormality identified.IMPRESSION: Mild diffuse gas distention of small and large bowel loops, most likelyrelated to clinically suspected ileus.Interpreted by:Olena Alexander, DOSigned by:Olena Alexander DO11/01/18Final result Normal [facility] Vital Signs Date Time Vital Sign Value Performing Clinician Facility 04-16-2023 13:20-0500 Body mass index (BMI) [Ratio] 35.05 kg/m2 Samia Landeros MD Work Phone: [facility] 04-16-2023 13:20-0500 Body temperature 97.81 [degF] Samia Landeros MD Work Phone: [facility] 04-16-2023 13:20-0500 Body weight 91.17 kg Samia Landeros MD Work Phone: [facility] [employer] [facility] 04-16-2023 13:20-0500 Diastolic blood pressure 80 mm[Hg] Samia Landeros MD Work Phone: [facility] [employer] [facility] 04-16-2023 13:20-0500 Heart rate 84 /min Samia Landeros MD Work Phone: [facility] [employer] [facility] 04-16-2023 13:20-0500 Respiratory rate 16 /min Samia Landeros MD Work Phone: [facility] [employer] [facility] 04-16-2023 13:20-0500 Systolic blood pressure 142 mm[Hg] Samia Landeros MD Work Phone: [facility] [employer] [facility] 04-02-2023 11:14-0500 Body height 161.3 cm Samia Landeros MD Work Phone: [facility] [employer] [facility] 04-02-2023 11:14-0500 Body mass index (BMI) [Ratio] 36.44 kg/m2 Samia Landeros MD Work Phone: [facility] [employer] [facility] 04-02-2023 11:14-0500 Body weight 94.8 kg Samia Landeros MD Work Phone: [facility] [employer] [facility] 04-02-2023 11:14-0500 Diastolic blood pressure 80 mm[Hg] Samia Landeros MD Work Phone: [facility] [employer] [facility] 04-02-2023 11:14-0500 Heart rate 80 /min Samia Landeros MD Work Phone: [facility] [employer] [facility] 04-02-2023 11:14-0500 Respiratory rate 16 /min Samia Landeros MD Work Phone: [facility] [employer] [facility] 04-02-2023 11:14-0500 Systolic blood pressure 160 mm[Hg] Samia Landeros MD Work Phone: [facility] [employer] [facility] 03-12-2023 14:30-0500 Body height 160.02 cm Boy Phillips Other [facility] 03-12-2023 14:30-0500 Body mass index (BMI) [Ratio] 36.89 kg/m2 Tondra Mapus Other [employer] Other 03-12-2023 14:30-0500 Body weight 94.48 kg Tondra Mapus Other [facility] 03-12-2023 14:30-0500 Diastolic blood pressure 82 mm[Hg] Tondra Mapus Other [facility] 03-12-2023 14:30-0500 Respiratory rate 18 /min Tondra Mapus Other [employer] Other 03-12-2023 14:30-0500 SaO2% (BldA) [Mass fraction] 94 % Tondra Mapus Other [facility] Other 03-12-2023 14:30-0500 Systolic blood pressure 155 mm[Hg] Tondra Mapus Other [facility] 11-27-2022 14:30-0400 Body height 160.02 cm Tondra Mapus Other [facility] Other 11-27-2022 14:30-0400 Body mass index (BMI) [Ratio] 36.26 kg/m2 Tondra Mapus Other [facility] Other 11-27-2022 14:30-0400 Body weight 92.85 kg Tondra Mapus Other [employer] Other 11-27-2022 14:30-0400 Diastolic blood pressure 75 mm[Hg] Tondra Mapus Other [facility] Other 11-27-2022 14:30-0400 Respiratory rate 18 /min Tondra Mapus Other [facility] Other 11-27-2022 14:30-0400 SaO2% (BldA) [Mass fraction] 95 % Tondra Mapus Other [facility] Other 11-27-2022 14:30-0400 Systolic blood pressure 142 mm[Hg] Tondra Mapus Other [employer] Other 08-28-2022 13:30-0400 Body height 160.02 cm Tondra Mapus Other [employer] Other 08-28-2022 13:30-0400 Body mass index (BMI) [Ratio] 34.68 kg/m2 Tondra Mapus Other [employer] Other 08-28-2022 13:30-0400 Body weight 88.81 kg Tondra Mapus Other [employer] Other 08-28-2022 13:30-0400 Diastolic blood pressure 86 mm[Hg] Tondra Mapus Other [employer] Other 08-28-2022 13:30-0400 Respiratory rate 18 /min Tondra Mapus Other [employer] Other 08-28-2022 13:30-0400 SaO2% (BldA) [Mass fraction] 96 % Tondra Mapus Other [facility] Other 08-28-2022 13:30-0400 Systolic blood pressure 157 mm[Hg] Tondra Mapus Other [employer] Other 05-24-2022 15:15-0400 Body height 160.02 cm Tondra Mapus Other [employer] Other 05-24-2022 15:15-0400 Body mass index (BMI) [Ratio] 33.65 kg/m2 Tondra Mapus Other [employer] Other 05-24-2022 15:15-0400 Body weight 86.18 kg Tondra Mapus Other [employer] Other 05-24-2022 15:15-0400 Diastolic blood pressure 78 mm[Hg] Tondra Mapus Other [employer] Other 05-24-2022 15:15-0400 Respiratory rate 18 /min Tondra Mapus Other [employer] Other 05-24-2022 15:15-0400 SaO2% (BldA) [Mass fraction] 98 % Tondra Mapus Other [employer] Other 05-24-2022 15:15-0400 Systolic blood pressure 164 mm[Hg] Tondra Mapus Other [employer] Other 04-26-2022 15:45-0400 Body height 160.02 cm Tondra Mapus Other [employer] Other 04-26-2022 15:45-0400 Body mass index (BMI) [Ratio] 33.35 kg/m2 Tondra Mapus Other [employer] Other 04-26-2022 15:45-0400 Body weight 85.41 kg Tondra Mapus Other [facility] Other 04-26-2022 15:45-0400 Diastolic blood pressure 84 mm[Hg] Tondra Mapus Other [facility] Other 04-26-2022 15:45-0400 Respiratory rate 18 /min Tondra Mapus Other [facility] Other 04-26-2022 15:45-0400 SaO2% (BldA) [Mass fraction] 96 % Tondra Mapus Other [facility] Other 04-26-2022 15:45-0400 Systolic blood pressure 154 mm[Hg] Tondra Mapus Other [facility] Other 02-20-2022 15:45-0500 Body height 160.02 cm Tondra Mapus Other [employer] Other 02-20-2022 15:45-0500 Body mass index (BMI) [Ratio] 32.47 kg/m2 Tondra Mapus Other [employer] Other 02-20-2022 15:45-0500 Body weight 83.14 kg Tondra Mapus Other [employer] Other 02-20-2022 15:45-0500 Diastolic blood pressure 91 mm[Hg] Tondra Mapus Other [facility] Other 02-20-2022 15:45-0500 Respiratory rate 18 /min Tondra Mapus Other [employer] Other 02-20-2022 15:45-0500 SaO2% (BldA) [Mass fraction] 96 % Tondra Mapus Other [facility] Other 02-20-2022 15:45-0500 Systolic blood pressure 160 mm[Hg] Tondra Mapus Other [employer] Other 01-16-2022 09:00-0500 Body height 160.02 cm Tondra Mapus Other [employer] Other 01-16-2022 09:00-0500 Body mass index (BMI) [Ratio] 31.92 kg/m2 Tondra Mapus Other [facility] Other 01-16-2022 09:00-0500 Body weight 81.74 kg Tondra Mapus Other [employer] Other 01-04-2022 12:00-0500 Body height 160.02 cm Tondra Mapus Other [employer] Other 01-04-2022 12:00-0500 Body mass index (BMI) [Ratio] 31.28 kg/m2 Tondra Mapus Other [facility] Other 01-04-2022 12:00-0500 Body weight 80.11 kg Tondra Mapus Other [facility] Other 01-04-2022 12:00-0500 Diastolic blood pressure 89 mm[Hg] Tondra Mapus Other [employer] Other 01-04-2022 12:00-0500 Respiratory rate 18 /min Tondra Mapus Other [employer] Other 01-04-2022 12:00-0500 SaO2% (BldA) [Mass fraction] 98 % Tondra Saturninous Other [employer] Other 01-04-2022 12:00-0500 Systolic blood pressure 154 mm[Hg] Tondra Saturninous Other [employer] Other Encounters Encounter Date Encounter Type Care Provider Facility Start: 04-27-2023 Telephone encounter Yohana Krishna ESCAMILLA [facility] Start: 04-18-2023 Orders Only Samia carrasco MD Work Phone: [facility] Start: 04-16-2023 End: 04-16-2023 Office outpatient visit 15 minutes Samia Landeros MD Work Phone: [facility] Comment on above: Other acute sinusiti s, recurrence not specified (Primary Dx) Start: 04-02-2023 End: 04-02-2023 ambulatory SAMIA LANDEROS [facility] Start: 04-02-2023 End: 04-02-2023 Office outpatient visit 15 minutes Samia Landeros MD Work Phone: [facility] Comment on above: Secondary diabetes m ellitus ([facility] (Primary Dx); Necrotizing pancreatitis; Mixed hyperlipidemia; Essential hypertension, benign Start: 03-26-2023 Refill Samia carrasco MD Work Phone: [facility] Start: 03-23-2023 End: 03-23-2023 ambulatory Tondra Mapus Other [facility] Other Start: 03-23-2023 Telephone encounter Tondra Phillips [facility] Start: 03-12-2023 End: 03-12-2023 Discharged Recurring MD [facility]os [facility] Work [facility]: Start: 03-12-2023 (DM) Diabetes Tondra Mapus [facility] Start: 03-12-2023 End: 03-13-2023 ambulatory MD Samia Landeros Work Phone: [employer] Other Start: 03-12-2023 End: 03-12-2023 Patient encounter procedure MD Samia Landeros Work Phone: [facility] Start: 02-15-2023 Refill Samia carrasco MD Work Phone: [facility] Start: 01-01-2023 End: 01-01-2023 ambulatory Tondra Mapus Other [employer] Other Start: 01-01-2023 Telephone encounter Tondra Mapus [facility] Start: 11-27-2022 (DM) Diabetes Tondra Mapus [facility] Start: 11-27-2022 End: 11-27-2022 ambulatory Tondra Mapus Other [employer] Other Start: 08-28-2022 (DM) Diabetes Tondra Mapus [facility] Start: 08-28-2022 End: 08-28-2022 ambulatory Tondra Mapus Other [employer] Other Start: 05-24-2022 (DM) Diabetes Tondra Mapus [facility] Start: 05-24-2022 End: 05-24-2022 ambulatory Tondra Mapus Other [employer] Other Start: 05-01-2022 End: 05-02-[address] SAMIA LANDEROS Facility:[facility] Start: 04-26-2022 (DM) Diabetes Tondra Mapus [facility] Start: 04-26-2022 End: 04-26-2022 ambulatory Tondra Mapus Other [employer] Other Start: 03-09-2022 End: 03-09-2022 ambulatory Tondra Mapus Other [employer] Other Start: 03-09-2022 Telephone encounter Tondra Mapus [facility] Start: 03-06-2022 End: 03-06-2022 ambulatory Tondra Mapus Other [employer] Other Start: 03-06-2022 Telephone encounter Tondra Mapus [facility] Start: 02-20-2022 (DM) Diabetes Tondra Jacqueline [facility] Start: 02-20-2022 End: 02-20-2022 ambulatory Tondra Mapus Other [employer] Other Start: 01-20-2022 End: 01-20-2022 ambulatory Tondra Mapus Other [employer] Other Start: 01-20-2022 Telephone encounter Tondra Saturninous [facility] Start: 01-16-2022 End: 01-16-2022 ambulatory Tondra Mapus Other [employer] Other Start: 01-16-2022 Nursing evaluation o f patient and report Tondra Jacqueline [facility] Start: 01-16-2022 Telephone encounter Tondra Mapus [facility] Start: 01-13-2022 End: 01-13-2022 ambulatory Pk Grady MD Work Phone: General Surgery Comment on above: Secondary diabetes m homero (HCC) (Primary Dx) Start: 01-13-2022 End: 01-13-2022 Telemedicine consultation with patient Pk Grady MD Work Phone: [facility] Start: 01-08-2022 End: 01-08-2022 ambulatory Tondra Mapus Other [employer] Other Start: 01-08-2022 Telephone encounter Boy Phillips [facility] Start: 01-06-2022 End: 01-07-[address] SAMIA LANDEROS Facility:[facility] Start: 01-04-2022 End: 01-04-2022 ambulatory Boy Phillips Other [facility] Other Start: 01-04-2022 FQHC visit new patient Boy Phillips [facility] Start: 11-18-[address] SAMIA LANDEROS Facil ity:[facility] Start: 11-14-2021 End: 11-14-2021 ambulatory Juanita Fishert Other [employer] Other Start: 11-14-2021 Telephone encounter Juanita Chance [facility] Start: 11-08-2021 End: 11-09-[address] SAMIA LANDEROS Facility:[facility] Start: 10-24-2021 End: 10-25-[address] SAMIA LANDEROS Facility:[facility] Start: 11-01-2017 End: 11-04-2017 Evaluation and management of inpatient STEPH AVASTHI [facility] Procedures Date Procedure Procedure Detail Performing Clinician Start: 04-02-2023 Adult depression scr eening assessment Samia Landeros MD Work Phone: Start: 12-14-2022 Diabetic retinal eye exam Samia Landeros MD Work Phone: Start: 10-10-2022 Adult depression scr eening assessment Samia Landeros MD Work Phone: Start: 09-04-2022 Microalbumin [Mass/v olume] in Urine by Test strip Samia Landeros MD Work Phone: Start: 11-08-2021 Mammography Pk corcoran MD Work Phone: Start: 08-31-2020 Colonoscopy Pk corcoran MD Work Phone: Start: 11-03-2017 POC GLUCOSE FINGERSTICK STEPH AVASTHI Start: 11-03-2017 POCT GLUCOSE STEPH AVAS THI Start: 11-03-2017 DISCHARGE PATIENT STEPH AVASTHI Start: 11-03-2017 Basic metabolic pane l calcium total STEPH AVASTHI Start: 11-03-2017 Blood count complete auto&auto difrntl wbc STEPH AVASTHI Start: 11-03-2017 ALCOHOL AND OR DRUG ASSESSMENT STEPH AVASTHI Start: 11-03-2017 FALL PRECAUTIONS STEPH AVASTHI Start: 11-03-2017 INITIATE OXYGEN THER APY PROTOCOL STEPH AVASTHI Start: 11-03-2017 SEIZURE PRECAUTIONS GIULIANO IL AVASTHI Start: 11-03-2017 POCT GLUCOSE STEPH AVAS THI Start: 11-03-2017 Ct abdomen & pelvis w/contrast material STEPH AVASTHI Start: 11-03-2017 Radiologic exam abdo men 1 view STEPH AVASTHI Start: 11-03-2017 POCT GLUCOSE STEPH AVAS THI Start: 11-03-2017 CALCIUM, IONIZED STEPH AVASTHI Start: 11-03-2017 POC GLUCOSE FINGERSTICK STEPH AVASTHI Start: 11-03-2017 INITIATE OXYGEN THER APY PROTOCOL STEPH AVASTHI Start: 11-03-2017 RESPIRATORY CARE PAUL LUATION AND TREAT STEPH AVASTHI Start: 11-03-2017 Blood count complete auto&auto difrntl wbc STEPH AVASTHI Start: 11-03-2017 POCT GLUCOSE STEPH AVAS THI Start: 11-03-2017 POC GLUCOSE FINGERSTICK STEPH AVASTHI Start: 11-02-2017 POC GLUCOSE FINGERSTICK STEPH AVASTHI Start: 11-02-2017 POCT GLUCOSE STEPH AVAS THI Start: 11-02-2017 Radiologic exam abdo men 1 view STEPH AVASTHI Start: 11-02-2017 HEMOGLOBIN AND HEMAT OCRIT, BLOOD STEPH AVASTHI Start: 11-02-2017 POC GLUCOSE FINGERSTICK STEPH AVASTHI Start: 11-02-2017 IP CONSULT TO IV TEAM S ALIL AVASTHI Start: 11-02-2017 POCT GLUCOSE STEPH AVAS THI Start: 11-02-2017 HEMOGLOBIN AND HEMAT OCRIT, BLOOD STEPH AVASTHI Start: 11-02-2017 TUBE INSERTION STEPH AV ASTHI Start: 11-02-2017 POC GLUCOSE FINGERSTICK STEPH AVASTHI Start: 11-02-2017 POCT GLUCOSE STEPH AVAS THI Start: 11-02-2017 INITIATE OXYGEN THER APY PROTOCOL STEPH AVASTHI Start: 11-02-2017 RESPIRATORY CARE PAUL LUATION AND TREAT STEPH AVASTHI Start: 11-02-2017 Assay of magnesium SALI L AVASTHI Start: 11-02-2017 Blood count complete auto&auto difrntl wbc STEPH AVASTHI Start: 11-02-2017 Assay of amylase STEPH AVASTHI Start: 11-02-2017 Assay of lactate STEPH AVASTHI Start: 11-02-2017 Assay of lipase STEPH A VASTHI Start: 11-02-2017 Blood count complete auto&auto difrntl wbc STEPH AVASTHI Start: 11-02-2017 CALCIUM, IONIZED STEPH AVASTHI Start: 11-02-2017 Lipid panel STEPH AVAS THI Start: 11-02-2017 Prothrombin time STEPH AVASTHI Start: 11-02-2017 Thromboplastin time partial plasma/whole blood STEPH AVASTHI Start: 11-02-2017 Culture bacterial bl ood aerobic w/id isolates STEPH AVASTHI Start: 11-02-2017 CULTURE BLOOD #1 STEPH AVASTHI Start: 11-01-2017 RESPIRATORY CARE PAUL LUATION AND TREAT STEPH AVASTHI Start: 11-01-2017 EKG 12-LEAD STEPH AVAS THI Start: 11-01-2017 CULTURE, URINE CATHETER STEPH AVASTHI Start: 11-01-2017 Radiologic exam abdo men 1 view STEPH AVASTHI Start: 11-01-2017 IP CONSULT TO GI STEPH AVASTHI Start: 11-01-2017 PLACE INTERMITTENT PNEUMATIC COMPRESSION DEVICE STEPH AVASTHI Start: 11-01-2017 REASON FOR NO CHEMIC AL VTE PROPHYLAXIS STEPH AVASTHI Start: 11-01-2017 FULL CODE STEPH AVAS THI Start: 11-01-2017 INITIATE OXYGEN THER APY PROTOCOL STEPH AVASTHI Start: 11-01-2017 NOTIFY PHYSICIAN (SPECIFY) STEPH AVASTHI Start: 11-01-2017 VITAL SIGNS STEPH AVAS THI Start: 11-01-2017 MRSA DNA PROBE, NASAL S ALIL AVASTHI Start: 11-01-2017 IP CONSULT TO GENERA L SURGERY STEPH AVASTHI Start: 11-01-2017 PATIENT STATUS (DIRECT) STEPH AVASTHI Plan of Treatment Date Care Activity Detail Author Start: 08-19-2026 DTaP,Tdap and Td Vaccines (2 - Td or Tdap) DTaP,Tdap and Td Vaccines (2 - Td or Tdap) [facility] Start: 08-19-2026 Urine microalbumin profile DTAP,TDAP,TD (2 - Td or Tdap) [facility] Start: 04-15-2024 Adult BMI Screening Adult BMI Screen ing [facility] Start: 04-02-2024 Adult BMI Screening Adult BMI Screen ing [facility] Start: 04-02-2024 Depression Screening Depression Scre ening [facility] Start: 04-02-2024 Fall Risk Screening Fall Risk Screen ing [facility] Start: 04-02-2024 Tobacco Screening Tobacco Screening [facility] Start: 12-15-2023 Glaucoma screening Diabetic Op hthalmology Exam [facility] Start: 10-16-2023 End: 10-16-2023 Patient encounter procedure 10/16/2023 3:00 PM EDT Office Visit [facility] [address] [place] [address] Samia Landeros MD [address] [place] [address] [facility] Start: 10-13-2023 Adult BMI Screening Adult BMI Screen ing [facility] Start: 10-13-2023 Medicare Annual Well ness Visit Medicare Annual Wellness Visit [facility] Start: 10-13-2023 Tobacco Screening Tobacco Screening [facility] Start: 10-11-2023 Depression Screening Depression Scre ening [facility] Start: 10-11-2023 Fall Risk Screening Fall Risk Screen ing [facility] Start: 09-05-2023 Urine screening for protein Urine Microalbumin [facility] Start: 04-23-2023 End: 04-23-2023 Clinical Support 04/23/2023 3:00 PM EDT Clinical Support [facility] [address] [place] [address] [facility] Start: 04-13-2023 Diabetic foot examination Diabetic Foot Exam [facility] Start: 04-10-2023 End: 04-10-2023 Patient encounter procedure 04/10/2023 3:30 PM EST Office Visit [facility] [address] [place] [id number] Samia Landeros MD [address] [place], [place] [id number] [facility] Start: 04-02-2023 End: 04-02-2023 Patient encounter procedure 04/02/2023 11:15 AM EST Office Visit [facility] [address] [place] [address] Samia Landeros MD [address] [place], [place] [id number] [facility] Start: 11-08-2022 Mammography MAMMOGRAM [facility] Start: 11-08-2022 Screening for malign ant neoplasm of breast Mammogram [facility] Start: 10-13-2022 Influenza vaccination Influenza Vacc ine [facility] Start: 05-08-2022 Hemoglobin A1c/Hemoglobin.total in Blood HBA1C [facility] Start: 10-13-2021 Influenza vaccination INFLUENZA (#1) [facility] Start: 08-31-2021 Colonoscopy COLONOSCOPY [facility] Start: 08-31-2021 COLORECTAL CANCER SCREENING COLORECTAL CANCER SCREENING [facility] Start: 02-12-2021 DEPRESSION ASSESSMENT DEPRESSION ASS ESSMENT [facility] Start: 2007 Administration of varicella zoster vaccine Zoster (Shingles) Vaccine (1 of 2) [facility] Start: 2007 SHINGRIX VACCINE (1 of 2) SHINGRIX VACCINE (1 of 2) [facility] Start: 2002 COLOGUARD (FIT-DNA) COLOGUARD (FIT-D NA) [facility] Start: [address] COLONOGRAPHY [facility] Start: 2002 FECAL OCCULT BLOOD FECAL OCCULT BLOO D [facility] Start: 2002 SIGMOIDOSCOPY [facility]OSCOPY [facility] Start: 1987 HPV TESTING HPV TESTING [facility] Start: 1978 PAP TESTING PAP TESTING [facility] Start: 1975 Adult BMI Follow Up Plan Adult BMI Follow Up Plan [facility] Start: 1975 ANNUAL PCP TEAM [employer] [place] DISEASE VISIT ANNUAL PCP TEAM CHRONIC DISEASE VISIT [facility] Start: 1975 BP CONTROLLED (<130/80) BP CONTROLLE D (<130/80) [facility] Start: 1975 Hepatitis B surface antibody level LDL CHOLESTEROL [facility] Start: 1975 HEPATITIS C SCREENING HEPATITIS C SC REENING [facility] Start: 1975 HIV SCREENING HIV SCREENING [facility] Start: 1967 3 comp foot exam completed DIABETIC FOOT EXAM [facility] Start: 1967 Hepatitis B screening URINE ALBUMIN:CREATININE RATIO [facility] Start: 1967 Hepatitis C antibody , confirmatory test DILATED RETINAL EXAM [facility] Start: 1963 PNEUMOCOCCAL (1 - PCV) PNEUMOCOCCAL (1 - PCV) [facility] Start: 1957 COVID-19 VACCINE (#1) COVID-19 VACCI NE (#1) [facility] End: 04-02-2024 Basic metabolic 2000 panel - Serum or Plasma Basic Metabolic Panel Lab Routine Essential hypertension, benign 1 Occurrences starting 04/02/2023 until 04/02/2024 [employer] Work Phone: Comment on above: 1 Occurrences starti ng 04/02/2023 until 04/02/2024 Immunizations Immunization Date Immunization Notes Care Provider Fa augusto 01-18-2023 Pneumococcal Conjuga te 20-valent Samia Landeros MD Work Phone: [facility] 12-14-2019 influenza, injectabl e, quadrivalent, preservative free Samia Landeros MD Work Phone: [facility] 12-14-2019 influenza virus vacc ine, unspecified formulation Samia Landeros MD Work Phone: [facility] 11-03-2018 Influenza, injectabl e, Madin Wever Canine Kidney, preservative free, quadrivalent Samia Landeros MD Work Phone: [facility] 11-03-2018 influenza, injectabl e, quadrivalent, preservative free Samia Landeros MD Work Phone: [facility] 10-01-2018 meningococcal polysaccharide (groups A, C, Y and W-135) diphtheria toxoid conjugate vaccine (MCV4P) Samia Landeros MD Work Phone: [facility] 10-01-2018 pneumococcal polysaccharide vaccine, 23 valent Samia Landeros MD Work Phone: [facility] 07-16-2018 haemophilus influenz ae type b vaccine, conjugate unspecified formulation Samia Landeros MD Work Phone: [facility] 07-16-2018 meningococcal oligosaccharide (groups A, C, Y and W-135) diphtheria toxoid conjugate vaccine (MCV4O) Samia Landeros MD Work Phone: [facility] 07-16-2018 pneumococcal polysaccharide vaccine, 23 valent Samia Landeros MD Work Phone: [facility] 12-04-2017 influenza, injectabl e, quadrivalent, contains preservative Pk Grady MD Work Phone: [facility] 08-19-2016 tetanus toxoid, redu danny diphtheria toxoid, and acellular pertussis vaccine, adsorbed Pk Grady MD Work Phone: [facility] Work Phone: Payers Date Payer Category Payer Medicaid [id number] 2020 Medicare ANTHEM MEDICARE ANTHEM MEDICARE ADVANTAGE [id number] 2020-Present [phone] [address] [place] [address] [id number] 2020 Unknown ANTHEM BLUE CROS S AND BLUE SHIELD ANTHEM MEDIBLUE HMO [id number] 2020-Present [phone] [address] [place] [address] HMO [id number] 2014 Unknown [id number] 1959 Blue Cross Blue [facility] [id number] 1959 Medicaid [id number] 1959 Self-pay 1957 Unknown [id number] 93 1957 Unknown [id number] 93 1957 Unknown [id number] 93 1957 Unknown [id number] 93 1957 Unknown [id number] 93 1957 Unknown [id number] 93 1957 Unknown [id number] Unknown [id number] 31 Social History Date Type Detail Facility Unknown if ever smoked [employer] Other Start: 03-23-2020 End: 04-02-2023 Sex Assigned At [facility] Start: 07-01-2018 Tobacco smoking status NHIS Ex-smoker [facility] End: 02-12-1998 History of tobacco use Current smoker [facility] End: 02-12-1998 History of tobacco use Cigarette Smoker [facility] Start: 07-01-2018 End: 03-23-2020 Cigarettes smoked current (pack per day) - Reported 0.1 [facility] Start: 07-01-2018 End: 04-12-2022 Tobacco use and exposure Smokeless tobacco non-user [facility] Start: 01-13-2022 End: 04-02-2023 Alcohol intake Ex-drinker (finding) [facility] Start: 1955 Sex Assigned At Not on file [facility] Start: 04-12-2022 Tobacco smoking status NHIS Never smoked tobacco [facility] Do you belong to any clubs or organizations such as methodist groups, unions, fraternal or athletic groups, or school groups? Yes [facility] Are you now , , , , never or living with a partner? Never [facility] How often to you hav e a drink containing alcohol? Never [facility] How many standard dr inks containing alcohol do you have on a typical day? Patient declined [facility] Do you feel stress - tense, restless, nervous, or anxious, or unable to sleep at night because your mind is troubled all the time - these days [OSQ] Not at all [facility] Start: 03-23-2020 Education 12 [facility] Start: 11-22-2017 Alcohol Comment occasional [facility] Start: 1955 Sex Assigned At Female [facility] Medical Equipment Procedure Code Equipment Code Equipment Origin al Text Equipment Identifier Dates [id number], [id number], [id number] Start: 11-18-2017 Comment on above: Use as instructed Clinical Notes 11-27-2017 to 04-27-2023 Telephone Encounter - Yohana Keller LPN - 04/27/2023 8:56 AM EDTTelephone Encounter - Yohana Keller LPN - 04/27/2023 8:56 AM EDTTelephone Encounter - Yohana Keller LPN - 04/27/2023 8:16 AM EDT Note Date & Type Note Facility 04-27-2023 Miscellaneous Notes Needs new Rx for Amlodipine 5mg documented in this encounter [facility] 04-27-2023 Telephone encounter Note Needs new Rx for Amlodipine 5mg [facility] 04-27-2023 Miscellaneous Notes Flys BP is low at night, 98/60 range, do you want to make any changes? We can decrease the norvasc to 5mg- do we need a new rx? Patient notified of message and verbalizes understanding documented in this encounter [facility] 04-27-2023 Telephone encounter Note Flys BP is low at night, 98/60 range, do you want to make any changes? [facility] 04-27-2023 Telephone encounter Note We can decrease the norvasc to 5mg- do we need a new rx? [facility] 04-27-2023 Telephone encounter Note Patient notified of message and verbalizes understanding [facility] 04-16-2023 History of Present illness Narrative Images from the original note were not included. [address] [id number] SUBJECTIVE: Patient ID: Nichole Sandhu is a 68 y.o. female. 68 yo WF with sinus x 1 week colored phlegm, fever negative , URIARTE dizziness nausea The following portions of the patient's history were reviewed and updated as appropriate: allergies, current medications, past family history, past medical history, past social history, past surgical history and problem list. REVIEW OF SYSTEMS: Review of Systems HENT: Positive for congestion. Gastrointestinal: Positive for nausea. Neurological: Positive for dizziness and headaches. PHYSICAL EXAMINATION: Vitals: 04/16/23 1320 BP: 142/80 BP Site: Left Arm BP Postition: Sitting BP CUFF SIZE: M (9-13 inches) Pulse: 84 Resp: 16 Temp: 36.6 C (97.8 F) TempSrc: Tympanic Weight: 91.2 kg (201 lb) Physical Exam Vitals and nursing note reviewed. Constitutional: Appearance: Normal appearance. HENT: Head: Normocephalic and atraumatic. Nose: Congestion and rhinorrhea present. Eyes: Extraocular Movements: Extraocular movements intact. Pupils: Pupils are equal, round, and reactive to light. Cardiovascular: Rate and Rhythm: Normal rate and regular rhythm. Pulses: Normal pulses. Heart sounds: Normal heart sounds. Pulmonary: Effort: Pulmonary effort is normal. Breath sounds: Normal breath sounds. Skin: General: Skin is warm and dry. Neurological: General: No focal deficit present. Mental Status: She is alert and oriented to person, place, and time. Psychiatric: Mood and Affect: Mood normal. Behavior: Behavior normal. ASSESSMENT/PLAN: Diagnoses and all orders for this visit: Other acute sinusitis, recurrence not specified Other orders - cefDINIR (OMNICEF) 300 mg capsule; Take 1 capsule (300 mg total) by mouth in the morning and 1 capsule (300 mg total) before bedtime. Do all this for 10 days. Follow-up: Cefdinir 300mg bid x10d documented in this encounter [email or web address] 04-02-2023 History of Present illness Narrative Images from the original note were not included. [address] [place] [address] SUBJECTIVE: Patient ID: Nichole Sandhu is a 68 y.o. female. 68 yo WF with check up bp has been 140-160 and sugars hve been 140-150 The following portions of the patient's history were reviewed and updated as appropriate: allergies, current medications, past family history, past medical history, past social history, past surgical history and problem list. REVIEW OF SYSTEMS: Review of Systems Constitutional: Negative. Respiratory: Negative. Cardiovascular: Negative. Gastrointestinal: Positive for nausea. Genitourinary: Negative. Neurological: Negative. Psychiatric/Behavioral: Negative. PHYSICAL EXAMINATION: Vitals: 04/02/23 1114 BP: 160/80 BP Site: Right Arm BP Postition: Sitting BP CUFF SIZE: M (9-13 inches) Pulse: 80 Resp: 16 Weight: 94.8 kg (209 lb) Height: 161.3 cm (5' 3.5 ) Physical Exam Vitals and nursing note reviewed. Constitutional: Appearance: Normal appearance. HENT: Head: Normocephalic and atraumatic. Eyes: Extraocular Movements: Extraocular movements intact. Pupils: Pupils are equal, round, and reactive to light. Cardiovascular: Rate and Rhythm: Normal rate and regular rhythm. Pulses: Normal pulses. Heart sounds: Normal heart sounds. Pulmonary: Effort: Pulmonary effort is normal. Breath sounds: Normal breath sounds. Skin: General: Skin is warm and dry. Neurological: General: No focal deficit present. Mental Status: She is alert and oriented to person, place, and time. Psychiatric: Mood and Affect: Mood normal. Behavior: Behavior normal. ASSESSMENT/PLAN: Anneliese was seen today for routine check up. Diagnoses and all orders for this visit: Secondary diabetes mellitus (CMS-HCC) Necrotizing pancreatitis Mixed hyperlipidemia Other orders - ondansetron (ZOFRAN) 4 mg tablet; Take 1 tablet (4 mg total) by mouth every 8 (eight) hours as needed for nausea or vomiting. - hydroCHLOROthiazide (HYDRODIURIL) 25 mg tablet; Take 1 tablet (25 mg total) by mouth daily. Follow-up: Add HCTZ, recheck in 3 weeks and BMP in 3 weeks documented [facility] this encounter [facility]23 Miscellaneous Notes [facility] of Col[facility] documented in this encounter [facility] 03-26-2023 Telephone encounter Note [facility] Col[facility] 03-23-2023 Evaluation note Encounter Date Diagnosis Assessment Notes Mar, Secondary diabetes (ICD-10 - E13.9) [facility] Other 01-29-2024 Evaluation note* Encounter Date Diagnosis Assessment Notes Treatment Notes Treatment Clinical Notes Feb, Secondary diabetes (ICD-10 - E13.9) Diabetes and foot care material was published, Diabetes and exercise material was published 1. Uncontrolled, secondary diabetes with A1c of 7.8% 2. Blood glucose levels above target. Dexcom g6 cgm download 02/27/23-03/12/23: Avg glucose 197. >250-10%. >180-56%, 70-180-34%, <70-0%, <54-0%. CV 20.5. Reviewed download with pt, no incidence of hypoglycemia. Glucose above target fasting am recommend increasing toujeo from 35 to 37 units daily. Reviewed with pt how to titrate basal/bolus insulin according to fasting am/meal to meal glucose pattern. Pt verbalizes understanding. Pt has a g6 transmitter at home, she would like to switch to dexcom g7. Reviewed with pt target fasting am/meal to meal glucose pattern 90/130-100/150; bedtime 120/180. Note: hx necrotizing pancreatitis. Eliminates drug class glp1/dpp4 for DM tx. 01/03 c-peptide 3.5/fasting glucose 342. 3. Patient is alert, oriented and receptive to making changes or counseling Notes: Seen for an assessment of current glucose pattern, changes in treatment plan, counseling and coordination of care related to diabetes, risks, and benefits of treatment, medications, side effects. Given handouts to reinforce concepts reviewed during counseling, see scanned notes. TOPICS REVIEWED: 1. Time was spent reviewing: a. Basic concepts of diabetes, progressive beta cell , concepts of basal/bolus/correc tive insulin requirements. Basal: The goal is fasting blood glucose of 90-130mg. If fasting blood glucose starts to run under 100mg 3x's/ week, decrease dose by 10%. Bolus: The goal is to hold the blood glucose level steady meal to meal. If pt. is going to have increased physical activity after a meal, decrease the schedule meal dose prior to the activity by 30-50%. If pt. skips a meal do not take this dose. Correction: The goal is to correct an elevated glucose back into the 100-150mg range b. Nutrition: Concepts of healthy diet reviewed, encouraged to decrease saturated fat in diet and increase non-starchy vegetables and fruits in diet. BMI: Pt. needs to select one small change to decrease caloric intake or increase physical activity to help decrease weight. c. Correct treatment of hypoglycemia, carry a glucose source at all times on your person, in vehicles, and at bedside. Can use glucose tablets/4, four ounces of pop or juice equal to 15 G of carbohydrate. Blood glucose should be 100 mg/dl or higher when driving. d. ADA glucose goals for age and medical complexity reviewed e. Patient questions addressed 2. Activity/exercise: Encouraged to start any form of physical activity. Start low level and increase slowly to a minimal goal of 150 minutes/week. Limit activity to what is allowed by other issues such as cardiac, pulmonary or orthopedic restrictions. 3. Standards of care: Reminded to have an annual dilated eye exam, A1C every 3 months, urine testing for microalbumin once/year, check feet daily and report any cuts or sores that do not appear to be healing. 4. Meter: Plan to check blood glucose: Please check blood glucose levels 4 times/day. Back to back meals reveal effectiveness of bolus dosing.5. [facility]. Contact office if any issues or concerns with patterns of hypoglycemia, hyperglycemia, or diabetes medication issues. 6. Prescriptions: [facility]Tou[facility] Humalog sent 03/12/23; DME: [place] [facility] g7 sent. 7. Prescriptions will not be filled unless you are compliant with follow up appointments or have a follow appointment scheduled as per ordered by your provider. Refills should be requested at the time of your visit. Feb, Insulin long-term use (ICD-10 - Z79.4) Feb, Dietary counseling and surveillance (ICD-10 - Z71.3) Maintaining a healthful weight material was published see above Feb, HTN (hypertension) (ICD-10 - I10) High blood pressure material was published on antihypertensive- f/u with pcp for further recommendation. Feb, Hyperlipidemia (ICD-10 - E78.5) Managing your cholesterol material was published 09/03 ldl 63 at target/trig 216-on statin Feb, BMI 36.0-36.9,adult (ICD-10 - Z68.36) Eating healthy: tips to make it easier material was published [employer] Other [id number] Miscellaneous Notes* Telephone Encounter - Yohana Keller LPN - 02/15/2023 9:52 AM EST Patient via [employer] [facility] Tele[facility] encounter Note* Telephone Encounter - Yohana Keller LPN - 02/15/2023 9:52 AM EST Patient via [employer] requesting refill of Lidocaine [facility] [employer] [id number] Miscellaneous Notes* Telephone Encounter - Yohana Keller LPN - 02/15/2023 9:51 AM EST Patient via [employer] requesting [facility] of [facility]clizine [facility] Telephone encounter Note* Telephone Encounter - Yohana Keller LPN - 02/15/2023 9:51 AM EST Patient via [employer] requesting refill of Meclizine [facility] [id number] Evaluation note* Encounter Date Diagnosis Assessment Notes Treatment Notes Treatment Clinical Notes Dec, Secondary diabetes (ICD-10 - E13.9) Dec, Type 2 diabetes mellitus (ICD-10 - E11.9) [facility] Other 10-16-2023 Evaluation note* Encounter Date Diagnosis Assessment Notes Treatment Notes Treatment Clinical Notes Nov, Secondary diabetes (ICD-10 - E13.9) Diabetes and foot care material was published, Diabetes and exercise material was published 1. Controlled, secondary diabetes with A1c of 6.7% 2. Blood glucose levels above target. Dexcom g6 cgm download 11/14/22-11/27/22: Avg glucose 187. >250-3%. >180-54%, 70-180-43%, <70-0%, <54-0%. CV 18.6. Reviewed download with pt, no incidence of hypoglycemia. Glucose above target fasting am recommend increasing toujeo from 33 to 35 units daily. Reviewed with pt how to titrate basal/bolus insulin according to fasting am/meal to meal glucose pattern. Pt verbalizes understanding. Pt has a g6 transmitter at home, she would like to switch to dexcom g7 when finish up with next transmitter. Reviewed with pt target fasting am/meal to meal glucose pattern 90/130-100/150; bedtime 120/180. Note: hx necrotizing pancreatitis. Eliminates drug class glp1/dpp4 for DM tx. 01/03 c-peptide 3.5/fasting glucose 342. 3. Patient is alert, oriented and receptive to making changes or counseling Notes: Seen for an assessment of current glucose pattern, changes in treatment plan, counseling and coordination of care related to diabetes, risks, and benefits of treatment, medications, side effects. Given handouts to reinforce concepts reviewed during counseling, see scanned notes. TOPICS REVIEWED: 1. Time was spent reviewing: a. Basic concepts of diabetes, progressive beta cell , concepts of basal/bolus/correc tive insulin requirements. Basal: The goal is fasting blood glucose of 90-130mg. If fasting blood glucose starts to run under 100mg 3x's/ week, decrease dose by 10%. Bolus: The goal is to hold the blood glucose level steady meal to meal. If pt. is going to have increased physical activity after a meal, decrease the schedule meal dose prior to the activity by 30-50%. If pt. skips a meal do not take this dose. Correction: The goal is to correct an elevated glucose back into the 100-150mg range b. Nutrition: Concepts of healthy diet reviewed, encouraged to decrease saturated fat in diet and increase non-starchy vegetables and fruits in diet. BMI: Pt. needs to select one small change to decrease caloric intake or increase physical activity to help decrease weight. c. Correct treatment of hypoglycemia, carry a glucose source at all times on your person, in vehicles, and at bedside. Can use glucose tablets/4, four ounces of pop or juice equal to 15 G of carbohydrate. Blood glucose should be 100 mg/dl or higher when driving. d. ADA glucose goals for age and medical complexity reviewed e. Patient questions addressed 2. Activity/exercise: Encouraged to start any form of physical activity. Start low level and increase slowly to a minimal goal of 150 minutes/week. Limit activity to what is allowed by other issues such as cardiac, pulmonary or orthopedic restrictions. 3. Standards of care: Reminded to have an annual dilated eye exam, A1C every 3 months, urine testing for microalbumin once/year, check feet daily and report any cuts or sores that do not appear to be healing. 4. Meter: Plan to check blood glucose: Please check blood glucose levels 4 times/day. Back to back meals reveal effectiveness of bolus dosing.5. [facility] Contact office if any issues or concerns with patterns of hypoglycemia, hyperglycemia, or diabetes medication issues. 6. Prescriptions: Will call when needed. 7. Prescriptions will not be filled unless you are compliant with follow up appointments or have a follow appointment scheduled as per ordered by your provider. Refills should be requested at the time of your visit. Nov, Insulin long-term use (ICD-10 - Z79.4) Nov, Dietary counseling and surveillance (ICD-10 - Z71.3) Maintaining a healthful weight material was published see above Nov, HTN (hypertension) (ICD-10 - I10) Managing high blood pressure material was published on antihypertensive- f/u with pcp for further recommendation. Nov, Hyperlipidemia (ICD-10 - E78.5) Managing your cholesterol material was published 09/03 ldl 63 at target/trig 216-on statin 16 Oct, 2023 BMI 36.0-36.9,adult (ICD-10 - Z68.36) Discussed weight management referral, pt declines. 16 Nov, 2022 Other 09/03 gfr >60 ; ma wnl [facility] Other 07-17-2023 Evaluation note* Encounter Date Diagnosis Assessment Notes Treatment Notes Treatment Clinical Notes Aug, Secondary diabetes (ICD-10 - E13.9) Diabetes and foot care material was published, Diabetes and exercise material was published 1. Controlled, secondary diabetes with A1c of 6.6% 2. Blood glucose levels improved. Dexcom g6 cgm download 08/15/22-08/28/22: Avg glucose 165. >250-1%. >180-24%, 70-180-75%, <70-0%, <54-<1%. CV 19. Reviewed download with pt, incidenct of hypoglycemia after day of increased actitivy. Glucose above target fasting am recommend increasing toujeo from 32 to 33 units daily. Reviewed with pt how to titrate basal/bolus insulin according to fasting am/meal to meal glucose pattern. Pt verbalizes understanding. Pt has a new g6 transmitter at home, she would like to switch to dexcom g7 when finish up with next transmitter. Reviewed with pt target fasting am/meal to meal glucose pattern 90/130-100/150; bedtime 120/180. Note: hx necrotizing pancreatitis. 01/03 c-peptide 3.5/fasting glucose 342. 3. Patient is alert, oriented and receptive to making changes or counseling Notes: Seen for an assessment of current glucose pattern, changes in treatment plan, counseling and coordination of care related to diabetes, risks, and benefits of treatment, medications, side effects. Given handouts to reinforce concepts reviewed during counseling, see scanned notes. TOPICS REVIEWED: 1. Time was spent reviewing: a. Basic concepts of diabetes, progressive beta cell , concepts of basal/bolus/correc tive insulin requirements. Basal: The goal is fasting blood glucose of 90-130mg. If fasting blood glucose starts to run under 100mg 3x's/ week, decrease dose by 10%. Bolus: The goal is to hold the blood glucose level steady meal to meal. If pt. is going to have increased physical activity after a meal, decrease the schedule meal dose prior to the activity by 30-50%. If pt. skips a meal do not take this dose. Correction: The goal is to correct an elevated glucose back into the 100-150mg range b. Nutrition: Concepts of healthy diet reviewed, encouraged to decrease saturated fat in diet and increase non-starchy vegetables and fruits in diet. BMI: Pt. needs to select one small change to decrease caloric intake or increase physical activity to help decrease weight. c. Correct treatment of hypoglycemia, carry a glucose source at all times on your person, in vehicles, and at bedside. Can use glucose tablets/4, four ounces of pop or juice equal to 15 G of carbohydrate. Blood glucose should be 100 mg/dl or higher when driving. d. ADA glucose goals for age and medical complexity reviewed e. Patient questions addressed 2. Activity/exercise: Encouraged to start any form of physical activity. Start low level and increase slowly to a minimal goal of 150 minutes/week. Limit activity to what is allowed by other issues such as cardiac, pulmonary or orthopedic restrictions. 3. Standards of care: Reminded to have an annual dilated eye exam, A1C every 3 months, urine testing for microalbumin once/year, check feet daily and report any cuts or sores that do not appear to be healing. 4. Meter: Plan to check blood glucose: Please check blood glucose levels 4 times/day. Back to back meals reveal effectiveness of bolus dosing.5. [facility]. Contact office if any issues or concerns with patterns of hypoglycemia, hyperglycemia, or diabetes medication issues. 6. Prescriptions: [facility]; None at this time. 7. Prescriptions will not be filled unless you are compliant with follow up appointments or have a follow appointment scheduled as per ordered by your provider. Refills should be requested at the time of your visit. Aug, Insulin long-term use (ICD-10 - Z79.4) Aug, Dietary counseling and surveillance (ICD-10 - Z71.3) Maintaining a healthful weight material was published see above Aug, HTN (hypertension) (ICD-10 - I10) Managing high blood pressure material was published on antihypertensive- f/u with pcp for further recommendation. Aug, Hyperlipidemia (ICD-10 - E78.5) Managing your cholesterol material was published 01/03 ldl 62 at target-on statin Aug, BMI 34.0-34.9,adult (ICD-10 - Z68.34) Deciphering the nutrition facts label material was published [facility] Other 04-12-2023 Evaluation note* Encounter Date Diagnosis Assessment Notes Treatment Notes Treatment Clinical Notes May, Secondary diabetes (ICD-10 - E13.9) Diabetes and foot care material was published 1. Uncontrolled, secondary diabetes with A1c of 8.1% 04/26/22. 2. Blood glucose levels improving, remain above target. dexcom g6 cgm download 05/11/22-05/24/22: Avg glucose 207. >250-15%. >180-54%, 70-180-31%, <70-0%, <54-0%. CV 23. Reviewed download with pt, glucoe above target fasting am; postprandial/betwe en meals, will modify basal/icr/correcti ve scale- see above. Reviewed with pt target fasting am/meal to meal glucose pattern 90/130-100/150; bedtime 120/180. Note: hx necrotizing pancreatitis. 01/03 c-peptide 3.5/fasting glucose 342. 3. Patient is alert, oriented and receptive to making changes or counseling Notes: Seen for an assessment of current glucose pattern, changes in treatment plan, counseling and coordination of care related to diabetes, risks, and benefits of treatment, medications, side effects. Given handouts to reinforce concepts reviewed during counseling, see scanned notes. TOPICS REVIEWED: 1. Time was spent reviewing: a. Basic concepts of diabetes, progressive beta cell , concepts of basal/bolus/correc tive insulin requirements. Basal: The goal is fasting blood glucose of 90-130mg. If fasting blood glucose starts to run under 100mg 3x's/ week, decrease dose by 10%. Bolus: The goal is to hold the blood glucose level steady meal to meal. If pt. is going to have increased physical activity after a meal, decrease the schedule meal dose prior to the activity by 30-50%. If pt. skips a meal do not take this dose. Correction: The goal is to correct an elevated glucose back into the 100-150mg range b. Nutrition: Concepts of healthy diet reviewed, encouraged to decrease saturated fat in diet and increase non-starchy vegetables and fruits in diet. BMI: Pt. needs to select one small change to decrease caloric intake or increase physical activity to help decrease weight. c. Correct treatment of hypoglycemia, carry a glucose source at all times on your person, in vehicles, and at bedside. Can use glucose tablets/4, four ounces of pop or juice equal to 15 G of carbohydrate. Blood glucose should be 100 mg/dl or higher when driving. d. ADA glucose goals for age and medical complexity reviewed e. Patient questions addressed 2. Activity/exercise: Encouraged to start any form of physical activity. Start low level and increase slowly to a minimal goal of 150 minutes/week. Limit activity to what is allowed by other issues such as cardiac, pulmonary or orthopedic restrictions. 3. Standards of care: Reminded to have an annual dilated eye exam, A1C every 3 months, urine testing for microalbumin once/year, check feet daily and report any cuts or sores that do not appear to be healing. 4. Meter: Plan to check blood glucose: Please check blood glucose levels 4 times/day. Back to back meals reveal effectiveness of bolus dosing.5. [facility]. Contact office if any issues or concerns with patterns of hypoglycemia, hyperglycemia, or diabetes medication issues. 6. Prescriptions: Refill request for Humalog sent to [facility] in [place] 05/24/22 7. Prescriptions will not be filled unless you are compliant with follow up appointments or have a follow appointment scheduled as per ordered by your provider. Refills should be requested at the time of your visit. May, Insulin long-term use (ICD-10 - Z79.4) May, Dietary counseling and surveillance (ICD-10 - Z71.3) Maintaining a healthful weight material was published see above May, HTN (hypertension) (ICD-10 - I10) Managing high blood pressure material was published on antihypertensive- f/u with pcp for further recommendation. May, Hyperlipidemia (ICD-10 - E78.5) Managing your cholesterol material was published 01/03 ldl 62 at target-on statin May, BMI 33.0-33.9,adult (ICD-10 - Z68.33) Eating healthy: tips to make it easier material was published, Deciphering the nutrition facts label material was published [facility] Other 03-15-2023 Evaluation note* Encounter Date Diagnosis Assessment Notes Treatment Notes Treatment Clinical Notes Apr, Secondary diabetes (ICD-10 - E13.9) 1. Uncontrolled, secondary diabetes with A1c of 8.1% improved from 02/20/22 a1c was 10%. 2. Blood glucose levels improving, remain above target. dexcom g6 cgm download 04/13/22-04/26/22: Avg glucose 216. >250-21%. >180-52%, 70-180-27%, <70-0%, <54-0%. CV 22.9. Reviewed download with pt, glucoe above target postprandial/betwee n meals, will modify basal/icr/correctiv e scale- see above. Reviewed with pt target fasting am/meal to meal glucose pattern 90/130-100/150; bedtime 120/180. Note: hx necrotizing pancreatitis. 01/03 c-peptide 3.5/fasting glucose 342. 3. Patient is alert, oriented and receptive to making changes or counseling Notes: Seen for an assessment of current glucose pattern, changes in treatment plan, counseling and coordination of care related to diabetes, risks, and benefits of treatment, medications, side effects. Given handouts to reinforce concepts reviewed during counseling, see scanned notes. TOPICS REVIEWED: 1. Time was spent reviewing: a. Basic concepts of diabetes, progressive beta cell , concepts of basal/bolus/correct [place] insulin requirements. Basal: The goal is fasting blood glucose of 90-130mg. If fasting blood glucose starts to run under 100mg 3x's/ week, decrease dose by 10%. Bolus: The goal is to hold the blood glucose level steady meal to meal. If pt. is going to have increased physical activity after a meal, decrease the schedule meal dose prior to the activity by 30-50%. If pt. skips a meal do not take this dose. Correction: The goal is to correct an elevated glucose back into the 100-150mg range b. Nutrition: Concepts of healthy diet reviewed, encouraged to decrease saturated fat in diet and increase non-starchy vegetables and fruits in diet. BMI: Pt. needs to select one small change to decrease caloric intake or increase physical activity to help decrease weight. c. Correct treatment of hypoglycemia, carry a glucose source at all times on your person, in vehicles, and at bedside. Can use glucose tablets/4, four ounces of pop or juice equal to 15 G of carbohydrate. Blood glucose should be 100 mg/dl or higher when driving. d. ADA glucose goals for age and medical complexity reviewed e. Patient questions addressed 2. Activity/exercise: Encouraged to start any form of physical activity. Start low level and increase slowly to a minimal goal of 150 minutes/week. Limit activity to what is allowed by other issues such as cardiac, pulmonary or orthopedic restrictions. 3. Standards of care: Reminded to have an annual dilated eye exam, A1C every 3 months, urine testing for microalbumin once/year, check feet daily and report any cuts or sores that do not appear to be healing. 4. Meter: Plan to check blood glucose: Please check blood glucose levels 4 times/day. Back to back meals reveal effectiveness of bolus dosing.5. [facility] 1 [facility]. Contact office if any issues or concerns with patterns of hypoglycemia, hyperglycemia, or diabetes medication issues. 6. Prescriptions: [facility] sent to pharmacy. Pt was given touOxyntix x2 sample pens today. 7. Prescriptions will not be filled unless you are compliant with follow up appointments or have a follow appointment scheduled as per ordered by your provider. Refills should be requested at the time of your visit. Apr, Insulin long-term use (ICD-10 - Z79.4) Apr, Dietary counseling and surveillance (ICD-10 - Z71.3) see above Apr, HTN (hypertension) (ICD-10 - I10) on antihypertensive- f/u with pcp for further recommendation. Apr, Hyperlipidemia (ICD-10 - E78.5) 01/03 ldl 62 at target-on statin Apr, BMI 33.0-33.9,adult (ICD-10 - Z68.33) [facility] Other 01-09-2023 Evaluation note* Encounter Date Diagnosis Assessment Notes Treatment Notes Treatment Clinical Notes Feb, Secondary diabetes (ICD-10 - E13.9) 1. Uncontrolled, secondary diabetes with A1c of 10.0% 2. Blood glucose levels improving, remain above target. dexcom g6 cgm download 02/07/22-02/20/22: Avg glucose 233. >250-33.7%. >180-82.6%, 70-180-17.4%, <70-0%, <54-0%. CV 23.6%. SD 55. Reviewed download with pt, glucoe above target postprandial/between meals, will modify icr/corrective scale- see above. Reviewed with pt target fasting am/meal to meal glucose pattern 90/130-100/150; bedtime 120/180. Note: hx necrotizing pancreatitis. 01/03 c-peptide 3.5/fasting glucose 342. 3. Patient is alert, oriented and receptive to making changes or counseling Notes: Seen for an assessment of current glucose pattern, changes in treatment plan, counseling and coordination of care related to diabetes, risks, and benefits of treatment, medications, side effects. Given handouts to reinforce concepts reviewed during counseling, see scanned notes. TOPICS REVIEWED: 1. Time was spent reviewing: a. Basic concepts of diabetes, progressive beta cell , concepts of basal/bolus/correctiv e insulin requirements. Basal: The goal is fasting blood glucose of 90-130mg. If fasting blood glucose starts to run under 100mg 3x's/ week, decrease dose by 10%. Bolus: The goal is to hold the blood glucose level steady meal to meal. If pt. is going to have increased physical activity after a meal, decrease the schedule meal dose prior to the activity by 30-50%. If pt. skips a meal do not take this dose. Correction: The goal is to correct an elevated glucose back into the 100-150mg range b. Nutrition: Concepts of healthy diet reviewed, encouraged to decrease saturated fat in diet and increase non-starchy vegetables and fruits in diet. BMI: Pt. needs to select one small change to decrease caloric intake or increase physical activity to help decrease weight. c. Correct treatment of hypoglycemia, carry a glucose source at all times on your person, in vehicles, and at bedside. Can use glucose tablets/4, four ounces of pop or juice equal to 15 G of carbohydrate. Blood glucose should be 100 mg/dl or higher when driving. d. ADA glucose goals for age and medical complexity reviewed e. Patient questions addressed 2. Activity/exercise: Encouraged to start any form of physical activity. Start low level and increase slowly to a minimal goal of 150 minutes/week. Limit activity to what is allowed by other issues such as cardiac, pulmonary or orthopedic restrictions. 3. Standards of care: Reminded to have an annual dilated eye exam, A1C every 3 months, urine testing for microalbumin once/year, check feet daily and report any cuts or sores that do not appear to be healing. 4. Meter: Plan to check blood glucose: Please check blood glucose levels 4 times/day. Back to back meals reveal effectiveness of bolus dosing.5. [facility] 2 [facility]. Contact office if any issues or concerns with patterns of hypoglycemia, hyperglycemia, or diabetes medication issues. 6. Prescriptions: None needed at this time. 7. Prescriptions will not be filled unless you are compliant with follow up appointments or have a follow appointment scheduled as per ordered by your provider. Refills should be requested at the time of your visit. Feb, Insulin long-term use (ICD-10 - Z79.4) Feb, Dietary counseling and surveillance (ICD-10 - Z71.3) see above Feb, HTN (hypertension) (ICD-10 - I10) on antihypertensive Feb, Hyperlipidemia (ICD-10 - E78.5) 01/03 ldl 62 at target-on statin Feb, BMI 32.0-32.9,adult (ICD-10 - Z68.32) [facility] Other 12-05-2022 Evaluation note* Encounter Date Diagnosis Assessment Notes Treatment Notes Treatment Clinical Notes Jan, Secondary diabetes (ICD-10 - E13.9) Patient in today for review of blood glucose logs, food logs, and insulin dosing. Patient's Dexcom was downloaded with ranges between lowest 128-400 highest for the past 14 days. Average reading 252 mg/dl. CGM active 71%. Time in ranges very high 49%, high 40%, target range 11%, low 0%, and very low 0%. Patient states she has been checking his blood sugars ac, hs with a glucose goal of 90-130 ac 120-180 hs. Patient educated on how to count carbs. Pt admits to skipping meals at times, states she is only able to eat once a day d/t vomiting or diarrhea. Patient has been able to use corrective scale 1:25 before meals tid and taking Toujeo 18 units daily. Dexcom report downloaded and discussed with Lisa Phillips APRN. Patient's blood sugar noted to be high often. Per TKM, patient to continue Humalog, but increase to 1:40 corrective scale and add 1:10 ICR with intake. Educated pt on 1 unit of insulin per every 10g of carb. Continue Toujeo, increase to 22 units daily. Written information was provided including 1:40 Corrective scale and Carb Counting and Meal Planning booklet. Discussed meal planning examples and reviewed use of use of corrective scale and ICR. Strongly encouraged patient to check glucose before meals and bedtime. Pt denies any issues or problems with her Dexcom G6 at this time. Reviewed Dexcom training, pt requests Dexcom prescription be sent to [facility]. All questions and concerns addressed. Encouraged to follow up for next appointment. 45 minutes was spent on education by Rajni GONZALES, RN. Reviewed cgm download 01/04/22- 2: Avg glucose 252. >250-48.7%, >180-88.6%, 70-180-11.4%, <70-0%, <54-0%. CV 22.8%. SD 58. See above recommendations. 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 No concerns at this time regarding the remainder of her pancreas. No further surgery indicated at this time. 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 - Follow up with [facility] PRN CC: Diabetes INTERVAL HPI: Had to go on insulin. Her blood sugars were in the 300s. No further episodes of pancreatitis. Bowel movements are dependent on what she eats, but overall good without any steatorrhea. PHYSICAL EXAM: There were no vitals taken for this visit. Gen: NAD Pulm: Non-labored breathing Ext: GALARZA spont Neuro: Answering questions appropriately This visit was conducted as a virtual visit. I spent a total of 20 minutes on the date of the service which included preparing to see the patient, [id number] patient care, completing clinical documentation, obtaining and/or reviewing separately obtained history, performing a medically appropriate examination, counseling and educating the patient/family/caregiver, ordering medications, tests, or procedures, and communicating results to the patient/family/caregiver. 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 No concerns at this time regarding the remainder of her pancreas. No further surgery indicated at this time. 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 - Follow up with me PRN CC: Diabetes INTERVAL HPI: Had to go on insulin. Her blood sugars were in the 300s. No further episodes of pancreatitis. Bowel movements are dependent on what she eats, but overall good without any steatorrhea. PHYSICAL EXAM: There were no vitals taken for this visit. Gen: NAD Pulm: Non-labored breathing Ext: GALARZA spont Neuro: Answering questions appropriately This visit was conducted as a virtual visit. I spent a total of 20 minutes on the date of the service which included preparing to see the patient, [id number] patient care, completing clinical documentation, obtaining and/or reviewing separately obtained history, performing a medically appropriate examination, counseling and educating the pat ient/family/caregiver, ordering medications, tests, or procedures, and communicating results to thepatient/family/caregiver. Anton Grady MD [facility] surgery Pager: [phone] documented in this encounter[facility]11[facility]23-[facility]22 Evaluation note* Encounter Date Diagnosis Assessment Notes Treatment Notes Treatment Clinical Notes Dec, Secondary diabetes (ICD-10 - E13.9) 1. Uncontrolled, secondary diabetes with A1c of 11.1% 11/08/21 2. Blood glucose levels above target. Recommend stopping glimeperide and starting basal/corrective insulin. Pt with hx necrotizing pancreatitis with onset DM. Will check c-peptide/fasting glucose. Recommend CGM. Pt is agreeable to wearing sample dexcom g6 cgm. Reviewed with pt target fasting am/meal to meal glucose pattern 90/130-100/150; bedtime 120/180. Pt instructed how to administer insulin. Pt given sample toujeo and administered first dose of 10mg sq right abdomen. Sample humalog u200 given, pt administered humalog 7 units for glucose 324- pt checked glucose with her meter today to confirm accuracy of test strips- glucose in office was 359. 3. Patient is alert, oriented and receptive to making changes or counseling Notes: Seen for 90 minutes for an assessment of current glucose pattern, changes in treatment plan, counseling and coordination of care related to diabetes, risks, and benefits of treatment, medications, side effects. Given handouts to reinforce concepts reviewed during counseling, see scanned notes. TOPICS REVIEWED: 1. Time was spent reviewing: a. Basic concepts of diabetes, progressive beta cell , concepts of basal/bolus/correcti ve insulin requirements. Basal: The goal is fasting blood glucose of 90-130mg. If fasting blood glucose starts to run under 100mg 3x's/ week, decrease dose by 10%. Bolus: The goal is to hold the blood glucose level steady meal to meal. If pt. is going to have increased physical activity after a meal, decrease the schedule meal dose prior to the activity by 30-50%. If pt. skips a meal do not take this dose. Correction: The goal is to correct an elevated glucose back into the 100-150mg range b. Nutrition: Concepts of healthy diet reviewed, encouraged to decrease saturated fat in diet and increase non-starchy vegetables and fruits in diet. BMI: Pt. needs to select one small change to decrease caloric intake or increase physical activity to help decrease weight. c. Correct treatment of hypoglycemia, carry a glucose source at all times on your person, in vehicles, and at bedside. Can use glucose tablets/4, four ounces of pop or juice equal to 15 G of carbohydrate. Blood glucose should be 100 mg/dl or higher when driving. d. ADA glucose goals for age and medical complexity reviewed e. Patient questions addressed 2. Activity/exercise: Encouraged to start any form of physical activity. Start low level and increase slowly to a minimal goal of 150 minutes/week. Limit activity to what is allowed by other issues such as cardiac, pulmonary or orthopedic restrictions. 3. Standards of care: Reminded to have an annual dilated eye exam, A1C every 3 months, urine testing for microalbumin once/year, check feet daily and report any cuts or sores that do not appear to be healing. 4. Meter: Plan to check blood glucose: Please check blood glucose levels 4 times/day. Back to back meals reveal effectiveness of bolus dosing.5. [facility]. Contact office if any issues or concerns with patterns of hypoglycemia, hyperglycemia, or diabetes medication issues. 6. Prescriptions: [facility] Sent dexcom g6 cgm transmitter/cgm to [facility]. Sample toujeo, humalog u200, pen needles, and dexcom g6 cgm transmitter/sensor given today. 7. Prescriptions will not be filled unless you are compliant with follow up appointments or have a follow appointment scheduled as per ordered by your provider. Refills should be requested at the time of your visit. 8. F/u 10 days with [facility] for cgm download/log book review. Dec, Insulin long-term use (ICD-10 - Z79.4) Dec, Dietary counseling and surveillance (ICD-10 - Z71.3) see above Dec, HTN (hypertension) (ICD-10 - I10) on antihypertensive Dec, Hyperlipidemia (ICD-10 - E78.5) on statin Dec, Hypoglycemia (ICD-10 - E16.2) Pt would greatly benefit from residential personal use of CGM device such as a Dexcom g6 with ability for high/low alarm feature. Pt. currently using insulin injections >3 times/day with insulin to carb ratio/corrective factor and requires frequent self adjustment of insulin based on carbohydrate intake, physical activity blood glucose monitoring. A CGM would improve ease of access to glucose results and reduce risk of hypoglcyemia/hypergl ycemia. Dec, BMI 31.0-31.9,adult (ICD-10 - Z68.31) Dec, Other The patient was given a dexcom G6 sensor and transmitter sample at this visit. She was isrrael to download the Dexcom G6 diana and the Dexcom Clarity diana on her phone. Her daughter set up the account for her. She was taught how to apply the sensor using a demo device and handouts. She successfully applied the sensor to the back of her left arm and inserted the transmitter. The sensor successfully was linked with the phone. Her Clarity account was linked with the office account using a sharing code. 45 minutes were spent educating the patient by Aramis Palm RN, [facility]. [employer] Other 10-16-2018 History of Past illness Narrative* Problem Noted Date Resolved Date Fever 11/27/2017 08/25/2020 Obesity, Class II, BMI 35-39.9 11/15/2017 0 09/24/2019 Delirium 11/04/2017 08/25/2020 Last Assessment & Plan: PLAN: See plan for encephalopathy documented as of this encounter (statuses as of 01/13/2022) [facility] noteNo InformationN[facility] Other Evaluation note* Diagnosis Secondary diabetes mellitus (HCC)- Primary Secondary diabetes mellitus without mention of complication, not stated as uncontrolled, or unspecified documented in this encounter [facility] noteNo assessment information availableOhio State East Hospital Work Phone: Evaluation note* Diagnosis Secondary diabetes mellitus (CMS-HCC)- Primary Secondary diabetes mellitus without mention of complication, not stated as uncontrolled, or unspecified Necrotizing pancreatitis Acute pancreatitis Mixed hyperlipidemia Essential hypertension, benign documented in this encounter [facility]* Diagnosis Other acute sinusitis, recurrence not specified- Primary documented in this encounter [facility] SystemHistory general Narrative - Reported* Type Description Date Medical History Secondary Diabetes Mellitus Medical History Necrotizing pancreatitis Medical History Pancreas tail injury Surgical History section Surgical History Hysterectomy Surgical History Kidney stone surgery Surgical History Pancreas resection Surgical History Pancreas-partial removal Surgical History Splenectomy Hospitalization History see above [employer] Other InstructionsNot on filedocumented in this encounter [facility] SystemInstructionsNot on filedocumented in this encounter [facility] SystemInstructions* Attachments The following attachments cannot be sent through Care Everywhere. * Diabetes and diet (Canadian) documented in [facility] encounterSum[facility] SystemInstructions* Attachments The following attachments cannot be sent through Care Everywhere. * Sinusitis in adults (Canadian) documented in this encounterProSam[facility] SystemInstructionsNot on file documented in this encounterProSamaritan [facility] SystemInstructionsNot on file documented in this encounterSumma [facility] SystemReason for visit Narrative Referral Dr. Landeros, secondary DM new pt apt with [employer], [employer], [employer] Other Summary Purpose Family History Relationship Condition Age at Onset Recorded Date/T daron brother Hypertension Unknown daughter Hypertension Unknown father Hypertension Unknown Unknown Diabetes mellitus Unknown History of stroke Unknown Not Specified Hypertension Unknown sister Diabetes mellitus Unknown Hypertension Unknown Advance Directives Documents on File Type Date Recorded Patient Practice Clinician Expl anation Advance Directive(s) 11/09/2017 4:21 PM SI [facility] Advance Directive Response Recorded Date/ Time Advance Directives No December 1:07pm Chief Complaint and Reason for Visit Chief Complaint Dm 3 Month F/U DM Additional Source Comments INFORMATION SOURCE (unrecogn ized section and content) DATE CREATED AUTHOR 12/08/2017 [facility] DATE CREATED AUTHOR AUTHOR'S ORGANIZ ATION 11/24/2018 [facility] DATE CREATED AUTHOR AUTHOR'S ORGANIZ ATION 09/02/2020 [facility] DATE CREATED AUTHOR AUTHOR'S ORGANIZ ATION 01/13/2022 [facility] DATE CREATED AUTHOR AUTHOR'S ORGANIZ ATION 05/07/2022 [facility] DATE CREATED AUTHOR AUTHOR'S ORGANIZ ATION 04/03/2023 [facility] DATE CREATED AUTHOR AUTHOR'S ORGANIZ ATION 04/03/2023 [facility] REASON FOR VISIT (unrecogniz ed section and content) Reason Comments Diabetes Reason Onset Date Comments Med Refill 02/15/2023 Reason Comments Med Refill Reason Comments Routine Check up Reason Onset Date Comments Med Refill 04/27/2023 Source Comments (unrecognize d section and content) In the event this informatio n is protected by the Federal Confidentiality of Alcohol and Drug Abuse Patient Records regulations: The Federal rules restrict any use of the information to criminally investigate or prosecute any alcohol or drug abuse patient.[facility] Teams (unrecognized sec tion and content) 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 [employer] Relationship Specialty Start Date End Date Samia Payton [address] [place] [address] PCP - General Family Medicine 11/23/17 [employer] Relationship Specialty Start Date End Date Samia Landeros MD [address] [place] [address] PCP - General [facility] 11/22/17 [employer] Relationship Specialty Start Date End Date Samia Landeros MD [address] [place] [address] PCP - General Family Medicine 11/22/17 Team Status: Active Member Role Status Dates Samia Landeros MD Primary Care Provider Active Team Status: Inactive Member Role Status Dates Boy Phillips APRN Attending Provider Active Start: March 12, 2023 End: March 12, 2023 Team Status: Inactive Member Role Status Dates Samia Landeros MD Primary Care Provide r, Attending Provider Active Start: March 12, 2023 End: March 12, 2023 [employer] Relationship Specialty Start Date End Date Samia Landeros MD [address] [place], [place] [id number] PCP - General Family Medicine 11/22/17 [employer] Relationship Specialty Start Date End Date Samia Landeros MD [address] [place] [address] PCP - General [facility] 11/22/17 [employer] Relationship Specialty Start Date End Date Samia Landeros MD [address] [place] [address] PCP - [facility] 11/22/17 [employer] Relationship Specialty Start Date End Date Samia Landeros MD [address] [place] [address] PCP - [facility] 11/22/17 [employer] Relationship Specialty Start Date End Date Samia Landeros MD [address] [place], [place] [id number] PCP - [facility] 11/22/17 Goals (unrecognized section and content) Goals may be documented in a n alternate section FOR RECORDS PERTAINING TO PATIENTS WHO ARE OR HAVE BEEN ENROLLED IN A CHEMICAL DEPENDENCY/SUBSTANCEABUSE PROGRAM, SOME INFORMATION MAY BE OMITTED. This clinical summary was aggregated from multiple sources. Caution should be exercised in using it in the provision of clinical care. This summary normalizes information from multiple sources, and as a consequence, information in this document may materially change the coding, format and clinical context of patient data. In addition, data may be omitted in some cases. CLINICAL DECISIONS SHOULD BE BASED ON THE PRIMARY CLINICAL RECORDS. [facility] [employer] [facility]. provides no warranty or guarantee of the accuracy or completeness of information in this document.
[2023-05-07 08:56] LABS: Anion Gap 13.3; BUN Creatinine Ratio 15.2; Calcium 9.2 mg/dL (8.5-10.1); Carbon Dioxide 31.9 mmol/L (21.0-32.0); Chloride 100 mmol/L (98-107); Estimated GFR (African America >60 (>=60); Estimated GFR (Non-African Ame >60 (>=60); Glucose 203 mg/dL (74-106); Potassium 4.2 mmol/L (3.5-5.1); Sodium 141 mmol/L (136-145)
== END 2023-05-07 07:40 | disposition home or self-care (01) ==
LOC: LAB 07:41
PROVIDERS: PCP Family Medicine; Visit Provider Family Medicine
DX: I10 Essential (primary) hypertension (principal)
CPT/HCPCS: 36415; 80048

== ENCOUNTER 2023-06-19 06:57 | Outpatient (OUT) | payer MEDICARE, SELFPAY ==
--- OUTSIDE RECORDS SUMMARY | 2023-06-19 07:02 | XMS_ITS | CCD ---
Author Organization [facility] Care Team Providers Care Securities Counselor Name Role Phone AVASTHI, STEPH Unavailable Unavailable AVASTHI, STEPH Unavailable Unavailable JIMMIE BREWSTER Unavailable Unavailable LIBIA SHIPMAN Unavailable Unavailable TRACI CORNELIUS Unavailable Unavailable AHMACHRISTOPHER Mora Unavailable Unavailable Mapus, Tondra Unavailable Samia Payton Primary Care Provider [phone] SAMIA PAYTON Primary Care Unavaila [facility] [place] [...] Unavailable Defrance Samia JENKINS Primary Care Provider [phone] MD Samai Landeros Primary Care Provider MD Samia Landeros Attending Provider Samia Landeros Unavailable Defrance, Samia Primary Care Unavailable Defrance, Samia Admitting Unavailable DEFRANCE, SAMIA Rivas Attending Unavailable DEFRANCE, SAMIA Rivas Referring Unavailable SAMIA LANDEROS Primary Care Unavailable Allergies Allergy Classification Reported Allergen(s) Allergy Type Date of Onset Reaction(s) Facility (20 sources) Codeine; Translations: [CODEINE] Drug Allergy 8 Swelling, Other (See Comments) [facility] Work Phone: (20 sources) LORazepam; Translations: [LORAZEPAM] Drug Allergy 8 rash, Other: See Comments [facility] Work Phone: (1 source) Codeine Drug Allergy [facility] Repository (1 source) LORazepam Drug Allergy [facility] (1 source) Codeine Drug Allergy [address] [facility] Repository (1 source) LORazepam Drug Allergy [address] [facility] Repository Medications Current Medications Medication Drug [...] 10 mg by mouth once daily. amylase 041006 unt / lipase 44101 unt / protease [id number] unt delayed release oral capsule (20 sources) [...] 08/28/2022 Active benzonatate 200 mg oral capsule (4 sources) Non-narcotic Antitussive Start: take 1 capsule [...] Orally twice a day Active DEXCOM G6 ACID REMOVER misc (9 sources) Start: DEXCOM G6 ACID REMOVER misc USE as directed TO monitor blood glucose 0 01/24/2022 Active Dexcom G6 Sensor - (16 sources) Start: 022 Dexcom G6 Sensor - as directed SQ change q 10 days for 90 day(s) Dec, Active Dexcom G6 Sensor - as directed SQ change q 10 days for 90 day(s) Active DEXCOM G6 SENSOR device (9 sources) Start: 01-24-2022 DEXCOM G6 SENS OR [...] 90 day(s) Active DEXCOM G6 TRANSMITTER device (9 sources) Start: 01-24-2022 DEXCOM G6 ESCOBAR SMITTER [...] once daily. 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 Episodic Other endocrine [...] te Episodic/Chronic Crushing injury or internal injury (10 sources) Injury of pancreas; Translations: [Unspecified injury [...] unspecified] Onset: 11-05-2017 11-15-2017 Episodic Mood disorders (9 sources) Mood disorders Onset: 10-10-2022 Resolved: 04-02-2023 [...] Onset: 11-10-2021 Episodic Pancreatic disorders (not diabetes) (14 sources) Acute necrotizing pancreatitis; Translations: [Acute pancreatitis with uninfected necrosis, unspecified] Onset: 11-03-2017 12-28-2017 Episodic Spondylosis; intervertebral disc disorders; other back problems (9 sources) Neck pain; Translations: [Cervicalgia] Onset: 08-31-2022 08-31-2022 Episodic Unclassified (9 sources) Onset: 04-29-2020 04-29-2020 Results Test Name Value Interpretation Reference Range Facility A1C HEMOGLOBINon 03-12-2023 HbA1c (Bld) [Mass fraction] 7.8 % [employer] Other Glucose - FINGER STICKon Glucose [Mass/Vol] 132 mg/dL [employer] Other HbA1c (Bld) [Mass fraction]o n 03-12-2023 A1C HEMOGLOBIN [facility] [employer] Other A1C HEMOGLOBINon 11-27-2022 HbA1c (Bld) [Mass fraction] 6.7 % [employer] Other Glucose - FINGER STICKon Glucose [Mass/Vol] 126 mg/dL [employer] Other HbA1c (Bld) [Mass fraction]o n 11-27-2022 A1C HEMOGLOBIN [facility] [employer] Other Glucose - FINGER STICKon Glucose [Mass/Vol] 106 mg/dL [employer] Other Glucose - FINGER STICKon Glucose [Mass/Vol] 131 mg/dL [employer] Other GGTon 05-01-2022 Gamma glutamyl transferase [Catalytic activity/Vol] 27 U/L Normal 8-55 [facility] Comment on above: Performed By: #### G GT, ALT, AST #### [facility] [address] [address] [address] Caridad [place] SGOTon 05-01-2022 AST [Catalytic activity/Vol] 24 U/L Normal 15-37 [facility] Comment on above: Performed By: #### G GT, ALT, AST ####[facility] [address] [place], [place] [address]TzDr. Caridad [place] SGPTon 05-01-2022 ALT [Catalytic activity/Vol] 40 U/L Normal 14-59 [facility] Comment on above: Performed By: #### G GT, ALT, AST #### [facility] [address] [place], [place] [address] Dr. Caridad [place] Glucose - FINGER STICKon Glucose [Mass/Vol] 126 mg/dL [employer] Other A1C HEMOGLOBINon 02-20-2022 HbA1c (Bld) [Mass fraction] 10.0 % [employer] Other Glucose - FINGER STICKon Glucose [Mass/Vol] 125 mg/dL [employer] Other HbA1c (Bld) [Mass fraction]o n 02-20-2022 A1C HEMOGLOBIN [facility] [employer] Other C-PEPTIDE, SERUMon 2 C-Peptide, Serum 3.5 ng/mL Normal 1.1-4.4 [facility] Comment on above: Result Comment: C-Pe ptide reference interval is for fasting patients. Performed By: #### C PEPT #### [facility] [address] [address] [address] Caridad [place] GGTon 01-06-2022 Gamma glutamyl transferase [Catalytic activity/Vol] 40 U/L Normal 8-55 [facility] Comment on above: Performed By: #### A ST, K, ALT, LIPID, GGT ####[facility] [address] [place] [address]Dr. Caridad [place] GLUCOSE BLOODon 01-06-2022 Glucose [Mass/Vol] 342 mg/dL Critically high 74-106 [facility] Comment on above: Performed By: #### G PAMELA ####[facility] [address] [place] [address]Dr. Caridad [place] LIPID PROFILEon 01-06-2022 CHOL-HDL RATIO NORM SEE BELOW Normal [facility] Comment on above: Result Comment: 3.3 - 4.4 LOW RISK 4.4 - 7.1 AVERAGE RISK 7.1 - 11.0 MODERATE RISK >11.0 HIGH RISK Performed By: #### A ST, K, ALT, LIPID, GGT ####[facility] [address] [place] [id number]. Caridad [place] Cholesterol [Mass/Vol] 142 mg/dL Normal <=200 [facility] Comment on above: Performed By: #### A ST, K, ALT, LIPID, GGT ####[facility] [address] [place] [address]Dr. Caridad [place] Cholesterol in HDL [Mass/Vol] 32 mg/dL Critically low 40-60 [facility] Comment on above: Performed By: #### A ST, K, ALT, LIPID, GGT ####[facility] [address] [place] [id number]. Caridad [place] Cholesterol in LDL [Mass/Vol] 62.2 mg/dL Normal [facility] Comment on above: Performed By: #### A ST, K, ALT, LIPID, GGT ####[facility] [address] [place] [id number]. Caridad Dread Cholesterol.total/ Cholesterol in HDL [Mass ratio] 4.4 {ratio} Normal [facility] Comment on above: Performed By: #### A ST, K, ALT, LIPID, GGT ####[facility] [address] [place] [address]Dr. Caridad [place] HDL NORMAL > or = 60 mg/dl - LO W CARDIOVASCULAR RISK <40 mg/dl - HIGH CARDIOVASCULAR RISK Normal [facility] Comment on above: Performed By: #### A ST, K, ALT, LIPID, GGT ####[facility] [address] [place] [address]Dr. Chantellpito [place] LDL CALC NORMAL SEE BELOW Normal [facility] Comment on above: Result Comment: <100 mg/dl OPTIMAL 100 - 129 mg/dl NEAR OR ABOVE OPTIMAL 130 - 159 mg/dl BORDERLINE HIGH 160 - 189 mg/dl HIGH >190 mg/dl VERY HIGH Performed By: #### A ST, K, ALT, LIPID, GGT ####[facility] [address] [place] [id number]. Caridad [place] Triglyceride [Mass/Vol] 239 mg/dL Critically high <=150 [facility] Comment on above: Performed By: #### A ST, K, ALT, LIPID, GGT ####[facility] [address] [place] [id number]. Caridad [place] VLDL CALC 47.8 mg/dL Normal [facility] Comment on above: Performed By: #### A ST, K, ALT, LIPID, GGT ####[facility] [address] [place] [address]Dr. Caridad [place] MICROALB CREAT RATIO RANDOMo n 01-06-2022 mALB <1.3 Normal <=30.0 [facility] Comment on above: Performed By: #### M CRR ####[facility] [address] [place] [id number]. Caridad [place] MALB CR RATIO 11.1 mg/g Normal 0.0-29.9 [facility] Comment on above: Performed By: #### M CRR ####[facility] [address] [place] [address]Dr. Caridad [place] MALB CR RATIO RANGE SEE BELOW Normal [facility] Comment on above: Result Comment: NO M ICROALBUMINURIA 0-29 MG/G CLINICAL MICROALBUMINURIA 30-300 MG/G MACROALBUMINURIA >300 MG/G Performed By: #### M CRR ####[facility] [address] [place], [place] [address]Dr. Caridad [place] URINE CREAT 116.75 mg/dL Normal 20.00-300.00 [facility] Comment on above: Performed By: #### M CRR ####[facility] [address] [place], [place] [address]Dr. Caridad [place] POTASSIUMon 01-06-2022 Potassium [Moles/Vol] 4.1 mmol/L Normal 3.5-5.1 [facility] Comment on above: Performed By: #### A ST, K, ALT, LIPID, GGT ####[facility] [address] [place] [address]Dr. Caridad [place] SGOTon 01-06-2022 AST [Catalytic activity/Vol] 32 U/L Normal 15-37 [facility] Comment on above: Performed By: #### A ST, K, ALT, LIPID, GGT ####[facility] [address] [place] [address]Dr. Caridad [place] SGPTon 01-06-2022 ALT [Catalytic activity/Vol] 63 U/L Critically high 14-59 [facility] Comment on above: Performed By: #### A ST, K, ALT, LIPID, GGT ####[facility] [address] [place] [address]Dr. Caridad [place] Glucose - FINGER STICKon Glucose [Mass/Vol] 359 mg/dL [employer] Other GLYCOHEMOGLOBIN A1Con 2021 ADA RECOMMENDATION SEE BELOW Normal [facility] Comment on above: Result Comment: ADA RECOMMENDED LIMIT 4.0 - 6.0 ADA THERAPEUTIC TARGET < 7.0 ACTION SUGGESTED > 7.0 Performed By: #### A 1C #### [facility] [address] [place] [address] Dr. Caridad [place] Glucose [Mass/Vol] 272 mg/dL Normal [facility] Comment on above: Performed By: #### A 1C #### [facility] [address] [place], [place] [address] Dr. Caridad [place] HbA1c (Bld) [Mass fraction] 11.1 % Critically high 4.5-6.2 [facility] Comment on above: Performed By: #### A 1C #### [facility] [address] [place] [address] Dr. Caridad [place] MG MAMM SCREEN 3D [facility] CAD[facility] 11-08-2021 MG MAMM SCREEN 3D [facility] Patient: NICHOLE SANDHU Exam Date: 11/08/2021 : 1955 Gender:F Ordering : DR SAMIA LANDEROS Admission #: [id number] Family : Order #: [id number] CLICK HERE TO VIEW EXAM RADIOLOGY REPORT [...] Treatments None Family Cancers None LOCATION: [facility] BREAST COMPOSITION: Scattered areas fibroglandular density. [...] MD on 11/09/2021 at 07:37 Normal [facility] MICROALBUMIN/ CREATININE RAT IOon 10-25-2021 Albumin, Urine 985.5 ug/mL Normal Not Estab. [facility] Comment on above: Result Comment: Resu lts confirmed on dilution. Performed By: #### M ALBCRL #### [facility] [address] [address] [address] Caridad [place] Albumin/ Creatinine Ratio 399 mg/g creat Critically high 0-29 [facility] Comment on above: Result Comment: Norm al: 0 - 29 Moderately increased: 30 - 300 Severely increased: >300 Performed By: #### M ALBCRL #### [facility] [address] [place] [address] Dr. Caridad [place] Creatinine, Urine 247.2 mg/dL Normal Not Estab. [facility] Comment on above: Performed By: #### M ALBCRL #### [facility] [address] [address] [address] Caridad [place] CBC AUTO DIFFon 10-24-2021 BASO # 0.1 103/ul Normal 0.0-0.1 [facility] Comment on above: Performed By: #### C BC #### [facility] [address] [place] [address] Dr. Caridad [place] Basophils/100 WBC (Bld) 0.9 % Normal 0.2-2.0 [facility] Comment on above: Performed By: #### C BC #### [facility] [address] [place] [address] Dr. Caridad [place] EO # 0.5 103/ul Normal 0.0-0.7 [facility] Comment on above: Performed By: #### C BC #### [facility] [address] [place] [address] Dr. Caridad [place] Eosinophils/100 WBC (Bld) 4.1 % Normal 0.9-7.0 [facility] Comment on above: Performed By: #### C BC #### [facility] [address] [place] [address] Dr. Caridad [place] Erythrocyte distribution width (RBC) [Ratio] 13.2 % Normal 11.0-15.0 [facility] Comment on above: Performed By: #### C BC #### [facility] [address] [place] [address] Dr. Caridad [place] Hematocrit (Bld) [Volume fraction] 42.5 % Normal 36.0-48.0 [facility] Comment on above: Performed By: #### C BC #### [facility] [address] [place] [address] Dr. Caridad [place] Hemoglobin (Bld) [Mass/Vol] 14.2 g/dL Normal 12.0-16.0 [facility] Comment on above: Performed By: #### C BC #### [facility] [address] [place] [address] Dr. Caridad [place] IG # 0.08 10e3/ul Critically high 0.00-0.03 [facility] Comment on above: Performed By: #### C BC #### [facility] [address] [place] [address] Dr. Caridad [place] IG % 0.7 % Critically high 0.0-0.5 [facility] Comment on above: Performed By: #### C BC #### [facility] [address] [place] [address] Dr. Caridad [place] LYMPH # 4.0 103/ul Critically high 1.2-3.8 [facility] Comment on above: Performed By: #### C BC #### [facility] [address] [place] [address] Dr. Caridad [place] Lymphocytes/100 WBC (Bld) 32.9 % Normal 20.5-60.0 [facility] Comment on above: Performed By: #### C BC #### [facility] [address] [place] [address] Dr. Caridad [place] MANUAL DIFF REQ NO Normal [facility] Comment on above: Performed By: #### C BC #### [facility] [address] [place] [address] Dr. Caridad [place] MCH (RBC) [Entitic mass] 28.8 pg Normal 26.7-34.0 [facility] Comment on above: Performed By: #### C BC #### [facility] [address] [place] [address] Dr. Caridad [place] MCHC (RBC) [Mass/Vol] 33.4 g/dL Normal 29.9-35.2 [facility] Comment on above: Performed By: #### C BC #### [facility] [address] [address] [address] Caridad [place] MCV (RBC) [Entitic vol] 86.2 fL Normal 81.0-99.0 [facility] Comment on above: Performed By: #### C BC #### [facility] [address] [place] [address] Dr. Caridad [place] MONO # 0.7 103/ul Normal 0.3-0.8 [facility] Comment on above: Performed By: #### C BC #### [facility] [address] [place] [address] Dr. Caridad [place] Monocytes/100 WBC (Bld) 6.1 % Normal 1.7-12.0 [facility] Comment on above: Performed By: #### C BC #### [facility] [address] [place] [address] Dr. Caridad [place] NEUT # 6.7 103/ul Critically high 1.4-6.5 [facility] Comment on above: Performed By: #### C BC #### [facility] [address] [place] [address] Dr. Caridad [place] Neutrophils/100 WBC (Bld) 55.3 % Normal 43.0-75.0 [facility] Comment on above: Performed By: #### C BC #### [facility] [address] [place] [address] Dr. Caridad [place] Platelet mean volume (Bld) [Entitic vol] 12.1 fL Normal 9.5-13.5 [facility] Comment on above: Performed By: #### C BC #### [facility] [address] [place] [address] Dr. Caridad [place] PLT 320 103/ul Normal 150-450 [facility] Comment on above: Performed By: #### C BC #### [facility] [address] [address] [address] Caridad [place] RBC 4.93 106/ul Normal 4.20-5.40 [facility] Comment on above: Performed By: #### C BC #### [facility] [address] [address] [address] Caridad [place] WBC 12.1 103/ul Critically high 4.0-11.0 [facility] Comment on above: Performed By: #### C BC #### [facility] [address] [address] [address] Caridad [place] FREE T4on 10-24-2021 Free T4 [Mass/Vol] 1.22 ng/dL Normal 0.76-1.46 [facility] Comment on above: Performed By: #### F T4 ####[facility] [address] [place] [address]Dr. Caridad [place] LIPID PROFILEon 10-24-2021 CHOL-HDL RATIO NORM SEE BELOW Normal [facility] Comment on above: Result Comment: 3.3 - 4.4 LOW RISK 4.4 - 7.1 AVERAGE RISK 7.1 - 11.0 MODERATE RISK >11.0 HIGH RISK Performed By: #### C MP, LIPID, TSH #### [facility] [address] [address] [address] Caridad [place] Cholesterol [Mass/Vol] 181 mg/dL Normal <=200 [facility] Comment on above: Performed By: #### C MP, LIPID, TSH #### [facility] [address] [address] [address] Caridad [place] Cholesterol in HDL [Mass/Vol] 30 mg/dL Critically low 40-60 [facility] Comment on above: Performed By: #### C MP, LIPID, TSH #### [facility] [address] [address] [address] Caridad [place] Cholesterol in LDL [Mass/Vol] 74.6 mg/dL Normal [facility] Comment on above: Performed By: #### C MP, LIPID, TSH #### [facility] [address] [address] [address] Caridad [place] Cholesterol.total/ Cholesterol in HDL [Mass ratio] 6.0 {ratio} Normal [facility] Comment on above: Performed By: #### C MP, LIPID, TSH #### [facility] [address] [address] [address] Caridad [place] HDL NORMAL > or = 60 mg/dl - LO W CARDIOVASCULAR RISK <40 mg/dl - HIGH CARDIOVASCULAR RISK Normal [facility] Comment on above: Performed By: #### C MP, LIPID, TSH #### [facility] [address] [address] [address] Caridad [place] LDL CALC NORMAL SEE BELOW Normal [facility] Comment on above: Result Comment: <100 mg/dl OPTIMAL 100 - 129 mg/dl NEAR OR ABOVE OPTIMAL 130 - 159 mg/dl BORDERLINE HIGH 160 - 189 mg/dl HIGH >190 mg/dl VERY HIGH Performed By: #### C MP, LIPID, TSH #### [facility] [address] [address] [address] Caridad [place] Triglyceride [Mass/Vol] 382 mg/dL Critically high <=150 [facility] Comment on above: Performed By: #### C MP, LIPID, TSH #### [facility] [address] [address] [address] Caridad [place] VLDL CALC 76.4 mg/dL Normal [facility] Comment on above: Performed By: #### C MP, LIPID, TSH #### [facility] [address] [address] [address] Caridad [place] PROF 14(COMP METB)on 022 Albumin [Mass/Vol] 3.6 g/dL Normal 3.4-5.0 [facility] Comment on above: Performed By: #### C MP, LIPID, TSH #### [facility] [address] [address] [address] Caridad [place] Albumin/Globulin [Mass ratio] 0.8 {ratio} Normal [facility] Comment on above: Performed By: #### C MP, LIPID, TSH #### [facility] [address] [address] [address] Caridad [place] ALP [Catalytic activity/Vol] 98 U/L Normal 46-116 [facility] Comment on above: Performed By: #### C MP, LIPID, TSH #### [facility] [address] [address] [address] Caridad [place] ALT [Catalytic activity/Vol] 53 U/L Normal 14-59 [facility] Comment on above: Performed By: #### C MP, LIPID, TSH #### [facility] [address] [address] [address] Caridad [place] Anion gap [Moles/Vol] 13.6 mmol/L Normal [facility] Comment on above: Performed By: #### C MP, LIPID, TSH #### [facility] [address] [place] [address] Dr. Caridad [place] AST [Catalytic activity/Vol] 28 U/L Normal 15-37 [facility] Comment on above: Performed By: #### C MP, LIPID, TSH #### [facility] [address] [address] [address] Caridad [place] Bilirubin [Mass/Vol] 0.4 mg/dL Normal 0.2-1.0 [facility] Comment on above: Performed By: #### C MP, LIPID, TSH #### [facility] [address] [address] [address] Caridad [place] Calcium [Mass/Vol] 9.2 mg/dL Normal 8.5-10.1 [facility] Comment on above: Performed By: #### C MP, LIPID, TSH #### [facility] [address] [address] [address] Caridad [place] Chloride [Moles/Vol] 99 mmol/L Normal 98-107 [facility] Comment on above: Performed By: #### C MP, LIPID, TSH #### [facility] [address] [address] [address] Caridad [place] CO2 [Moles/Vol] 29.8 mmol/L Normal 21.0-32.0 [facility] Comment on above: Performed By: #### C MP, LIPID, TSH #### [facility] [address] [address] [address] Caridad [place] Creatinine [Mass/Vol] 0.66 mg/dL Normal 0.55-1.02 [facility] Comment on above: Performed By: #### C MP, LIPID, TSH #### [facility] [address] [address] [address] Caridad [place] EGFR-AF CENTRAL AFRICAN >60 Normal >=60 [facility] Comment on above: Performed By: #### C MP, LIPID, TSH #### [facility] [address] [address] [address] Caridad [place] EGFR-NON AF CENTRAL AFRICAN >60 Normal >=60 [facility] Comment on above: Performed By: #### C MP, LIPID, TSH #### [facility] [address] [address] [address] Caridad [place] Globulin (S) [Mass/Vol] 4.3 g/dL Normal [facility] Comment on above: Performed By: #### C MP, LIPID, TSH #### [facility] [address] [address] [address] Caridad [place] Glucose [Mass/Vol] 301 mg/dL Critically high 74-106 [facility] Comment on above: Performed By: #### C MP, LIPID, TSH #### [facility] [address] [address] [address] Caridad [place] Potassium [Moles/Vol] 3.4 mmol/L Critically low 3.5-5.1 [facility] Comment on above: Performed By: #### C MP, LIPID, TSH #### [facility] [address] [address] [address] Caridad [place] Protein [Mass/Vol] 7.9 g/dL Normal 6.4-8.2 [facility] Comment on above: Performed By: #### C MP, LIPID, TSH #### [facility] [address] [address] [address] Caridad [place] Sodium [Moles/Vol] 139 mmol/L Normal 136-145 [facility] Comment on above: Performed By: #### C MP, LIPID, TSH #### [facility] [address] [place] [address] Dr. Caridad [place] Urea nitrogen [Mass/Vol] 6.0 mg/dL Critically low 7.0-18.0 [facility] Comment on above: Performed By: #### C MP, LIPID, TSH #### [facility] [address] [place] [address] Dr. Caridad [place] Urea nitrogen/Creatinin e [Mass ratio] 9.1 mg/mg Normal [facility] Comment on above: Performed By: #### C MP, LIPID, TSH #### [facility] [address] [place] [address] Dr. Caridad [place] TSHon 10-24-2021 TSH 1.566 uIU/mL Normal 0.358-3.740 [facility] Comment on above: Performed By: #### C MP, LIPID, TSH #### [facility] [address] [place] [address] Dr. Caridad [place] OBSOLETEon 01-25-2021 OBSOLETE Refill (PAINMN) ----- NICHOLE SANDHU ([id number]) 1955 F Date Time Provider Department 01/25/21 [...] A DAY NEEDED FOR PAIN DIRECTED - qvasfh-fzdcnxho-wcnxqxe (ZENPEP) 40,000-126,000- 168,000 unit delayed release capsule [...] mouth once daily. - blood sugar diagnostic (Eat Your [employer] VERIO) test strip Use as instructed Problem [...] Encounter Status:Closed by JACEY CABRAL on 01/25/21 [facility] ANES POSTPROC EVALon 021 ANES POSTPROC EVAL HNO ID: [id number] Author: Jayce Chase DO Service: Anesthesiology Author [...] August 31, 2020 TIME: 9:44 AM CSN: [id number] [facility] ANES PRE-OPon 08-31-2020 ANES PRE-OP HNO ID: [id number] Author: Jayce Chase DO Service: Anesthesiology Author [...] A DAY NEEDED FOR PAIN DIRECTED - uxvmkb-jxnojyss-kbwmupv (ZENPEP) 40,000-126,000- 168,000 unit cpDR Take 2 [...] mouth once daily. - blood sugar diagnostic (GotoTelTOUCH VERIO) test strip Use as instructed I have interviewed and examined the patient. I have reviewed the medical record and/or the pre-anesthesia evaluation, pertinent labs, and test results. This contains updated information obtained within 48 hours of Surgery/Procedure. SIGNATURE: Chino Graves DO PATIENT NAME: Nichole Sandhu DATE: August 31, 2020 TIME: 7:27 AM CSN: [id number] [facility] CNCOon 08-31-2020 CNCO Letter Text [facility] HISTORY PHYSICALon HISTORY PHYSICAL HNO ID: [id number] Author: Chaz Benitez PA-C Service: Gastroenterology Author Type: Physician Carbonator Type: HANDP Filed: 08/31/2020 8:10 AM Note [...] is colonoscopy. Medication reconciliation list reviewed in Qbix. Past medical history, past surgical history, social history and family history reviewed and updated in Qbix. ALLERGIES Allergen Reactions - Ativan [Lorazepam] Other: [...] August 31, 2020 TIME: 7:28 AM Normal [facility] NURSING PROGon 08-31-2020 NURSING PROG HNO ID: [id number] Author: Ericka Hughes RN Service: Gastroenterology Author Type: Registered Nurse Type: Nursing Progress Note Filed: 09/01/2020 10:56 AM Note Text: [facility] ENDOSCOPY POST PROCEDURE FOLLOW UP CALL [phone] (home) Date Phone Call Made: 09/01/2020 Attempt: [...] more pleasant? No Ericka Hughes RN Normal [facility] SURGICAL PATHOLOGYon 021 SURGICAL PATHOLOGY Specimen originated from [facility] Specimen #: [id number] Submitting Physician: JAYCE OWRKMAN FINAL DIAGNOSIS 1. Random colon, biopsy (A) [...] in one cassette. Gross examination performed at [facility], [address] [place] [address] J 08/31/2020 2:17:20 PM Date of Report: 09/01/2020 Date of Procedure: 08/31/2020 Date of Receipt: 08/31/2020 Submitted by: JAYCE WORKMAN Location: [facility] Diagnostic interpretation performed at [facility], [address] [place] [address]. CLIA Number: [id number] Normal [facility] NURSING PROGon 08-30-2020 NURSING PROG HNO ID: [id number] Author: Rosibel Aiken, RODRICK Service: ? Author Type: Registered Nurse Type: Nursing Progress Note Filed: 08/30/2020 2:11 PM Note Text: [facility] ENDOSCOPY PRE PROCEDURE CALL Diana. I'm calling from [facility] endoscopy to provide you with the [...] confirm the name and relationship of your cdl b driver. Breana Sandhu What is the best number for your cdl b driver to be reached at tomorrow for updates? [phone] At this time due to COVID precautions [...] to proceed. Are you familiar with where [facility] is located?yes Address [facility] Patient instructed to enter through the main hospital entrance [address] through the revolving doors and check in at the main desk with your cdl b driver's license and insurance card. yes If anesthesia or sedation is being given: Patient instructed you must have an adult cdl b driver because you will not be able to work or drive for the rest of the day after your test.yes Patient instructed not bring any valuables, jewelry, or ponce and wear comfortable clothing. Do not wear makeup, lotion, or finger puerto rican. yes Patient instructed: Do not eat or [...] given Any barriers to Patient learning (confusion? M[employer] needed?): Patient/Patient Canvas Cutter responded appropriately on phone. Type of instruction given: Verbal by telephone contact. [facility] NICHOLE SANDHU ([id number]) 1955 F Date Time Provider Department 08/18/20 [...] instructed that they will need a designated cdl b driver on the day of the exam. [...] A DAY NEEDED FOR PAIN DIRECTED - krijbu-rafxmqwc-hzcmojl (ZENPEP) 40,000-126,000- 168,000 unit cpDR Take 2 [...] 40 mg by mouth once daily. - xcwexi-gyvnjcxz-bcxzywn (ZENPEP) 40,000-126,000- 168,000 unit cpDR Take 2 [...] Encounter Status:Closed by BERNARDA DELGADO on 08/18/20 [facility] Coding Summary.on 01-16-2018 Coding Summary. CODING DATE: 018 [facility] STATUS: Home (Routine DC) PAYOR: [facility] [place] [facility] DESCRIPTION 5571 Level 1 Imaging with [...] Denny CphT Date Saved: 01/16/2018 07:44 am [facility] Coding Summary.on 12-27-2017 Coding Summary. CODING DATE: 018 FINAL [facility] STATUS: Home (Routine DC) PAYOR: [facility] [place] ADMIT DX: REASON FOR VISIT DX: E61.1 [...] CphT Date Saved: 12/27/2017 02:09 pm Normal [facility] Auto Diffon 12-25-2017 Basophils/100 WBC (Bld) 0.2 % Normal 0.0-2.0 [facility] Comment on above: Order Comment: Order Added by Discern Expert. Performed By: #### 2 778441, 54128271, 42913434, 9531702, 4061263 #### [facility] [address] [place] [address] Basophils/Leukocyt es Auto (Bld) [Pure # fraction] 0.0 E9/L Normal 0.0-0.2 [facility] Comment on above: Order Comment: Order Added by Discern Expert. Performed By: #### 2 567739, 81137486, 36765403, 1991424, 1412753 #### [facility] [address] [place] [address] Eosinophils/100 WBC (Bld) 0.9 % Normal 0.0-8.0 [facility] Comment on above: Order Comment: Order Added by Discern Expert. Performed By: #### 2 147930, 56235997, 86445572, 0457614, 9553753 #### [facility] [address] [place] [address] Eosinophils/Leukoc ytes Auto (Bld) [Pure # fraction] 0.1 E9/L Normal 0.0-0.5 [facility] Comment on above: Order Comment: Order Added by Discern Expert. Performed By: #### 2 131477, 16077681, 62757264, 1412313, 2251049 #### [facility] [address] [place] [address] Lymphocytes/100 WBC (Bld) 8.4 % Low 14.0-50.0 [facility] Comment on above: Order Comment: Order Added by Discern Expert. Performed By: #### 2 581130, 07774992, 17317652, 2840080, 0285533 #### [facility] [address] [place] [address] Lymphocytes/Leukoc ytes Auto (Bld) [Pure # fraction] 1.3 E9/L Normal 1.0-4.0 [facility] Comment on above: Order Comment: Order Added by Discern Expert. Performed By: #### 2 437423, 27774986, 46899608, 1083899, 8556576 #### [facility] [address] [place] [address] Monocytes/100 WBC (Bld) 6.8 % Normal 4.0-14.0 [facility] Comment on above: Order Comment: Order Added by Discern Expert. Performed By: #### 2 743983, 67825568, 91319016, 1100343, 4919325 #### [facility] [address] [place] [address] Monocytes/Leukocyt es Auto (Bld) [Pure # fraction] 1.1 E9/L High 0.2-1.0 [facility] Comment on above: Order Comment: Order Added by Discern Expert. Performed By: #### 2 913934, 44684570, 58285844, 7676557, 5747896 #### [facility] [address] [place] [address] Neutrophils/100 WBC (Bld) 83.7 % High 36.0-75.0 [facility] Comment on above: Order Comment: Order Added by Discern Expert. Performed By: #### 2 219696, 17008674, 94252817, 1580933, 7530553 #### [facility] [address] [place] [address] Neutrophils/Leukoc ytes Auto (Bld) [Pure # fraction] 13.1 E9/L High 2.0-7.5 [facility] Comment on above: Order Comment: Order Added by Discern Expert. Performed By: #### 2 634522, 28059682, 66684893, 7434934, 8270160 #### [facility] [address] [place] [address] CBC w/ Auto Diffon Erythrocyte distribution width (RBC) [Ratio] 16.4 % High 10.9-14.2 [facility] Comment on above: Performed By: #### 2 906164, 45724726, 54306759, 3474799, 2090762 #### [facility] [address] [place] [address] Hematocrit (Bld) [Volume fraction] 29.6 % Low 34.0-46.0 [facility] Comment on above: Performed By: #### 2 129208, 59242950, 72819953, 1992221, 5494235 #### [facility] [address] [place] [address] Hemoglobin (Bld) [Mass/Vol] 9.2 g/dL Low 12.0-16.0 [facility] Comment on above: Performed By: #### 2 000434, 35225359, 14450329, 6679326, 8569749 #### [facility] [address] [place] [address] MCH (RBC) [Entitic mass] 23.6 pg Low 27.0-34.0 [facility] Comment on above: Performed By: #### 2 243636, 58969644, 57633411, 7204920, 1148361 #### [facility] [address] [place] [address] MCHC (RBC) [Mass/Vol] 31.1 g/dL Low 31.4-39.3 [facility] Comment on above: Performed By: #### 2 548217, 79845882, 82734612, 0370231, 6743656 #### [facility] [address] [place] [address] MCV (RBC) [Entitic vol] 75.9 fL Low 80.0-100.0 [facility] Comment on above: Performed By: #### 2 138674, 43886394, 43844082, 4911237, 5849792 #### [facility] [address] [place] [address] Platelet mean volume (Bld) [Entitic vol] 10.2 fL Normal 6.4-10.8 [facility] Comment on above: Performed By: #### 2 160074, 96774176, 68020749, 7767645, 8439174 #### [facility] [address] [place] [address] Platelets (Bld) [#/Vol] 375.0 E9/L Normal 150.0-500.0 [facility] Comment on above: Performed By: #### 2 667262, 65971920, 89684302, 5255495, 6718447 #### [facility] [address] [place] [address] RBC (Bld) [#/Vol] 3.9 E12/L Low 4.3-5.9 [facility] Comment on above: Performed By: #### 2 426895, 43179482, 88877467, 6720156, 3671642 #### [facility] [address] [place] [address] WBC corrected for nucl RBC Auto (Bld) [#/Vol] 15.6 E9/L High 4.0-11.0 [facility] Comment on above: Performed By: #### 2 653091, 18578251, 52599494, 4899393, 6720373 #### [facility] [address] [place] [address] CMPon 12-25-2017 Albumin [Mass/Vol] 0.6 g/dL Low 1.1-2.2 [facility] Comment on above: Performed By: #### 2 360673, 76211186, 61851256, 4984563, 3361929 #### [facility] [address] [place] [address] Albumin [Mass/Vol] 2.9 g/dL Low 3.3-5.0 [facility] Comment on above: Performed By: #### 2 328556, 63870700, 00343709, 8905004, 5321332 #### [facility] [address] [place] [address] ALP [Catalytic activity/Vol] 62 Int._Unit/L Normal 21-98 [facility] Comment on above: Performed By: #### 2 326877, 01701414, 13044417, 1009942, 0421831 #### [facility] [address] [place] [address] ALT No additional P-5'-P [Catalytic activity/Vol] 12 Int._Unit/L Normal 6-46 [facility] Comment on above: Performed By: #### 2 772515, 94421786, 26261702, 4141629, 9069506 #### [facility] [address] [place] [address] Anion gap [Moles/Vol] 16 mmol/L Normal 6-16 [facility] Comment on above: Performed By: #### 2 761600, 74963758, 89315875, 3159095, 3218523 #### [facility] [address] [place] [address] AST [Catalytic activity/Vol] 19 Int._Unit/L Normal 5-43 [facility] Comment on above: Performed By: #### 2 852429, 10855552, 00702478, 6239451, 3843325 #### [facility] [address] [place] [address] Bilirubin [Mass/Vol] 0.5 mg/dL Normal 0.0-1.1 [facility] Comment on above: Performed By: #### 2 622685, 56591011, 65986221, 3303252, 3326435 #### [facility] [address] [place] [address] Calcium [Mass/Vol] 8.9 mg/dL Normal 8.9-11.1 [facility] Comment on above: Performed By: #### 2 815814, 59286084, 54288641, 0536197, 5352945 #### [facility] [address] [place] [address] Chloride [Moles/Vol] 98 mmol/L Low 101-111 [facility] Comment on above: Performed By: #### 2 932351, 56664996, 00645446, 5080034, 4808459 #### [facility] [address] [place] [address] CO2 [Moles/Vol] 26 mmol/L Normal 21-31 [facility] Comment on above: Performed By: #### 2 455393, 00264192, 33469448, 1776893, 5902487 #### [facility] [address] [place] [address] Creatinine [Mass/Vol] 0.5 mg/dL Normal 0.5-1.3 [facility] Comment on above: Performed By: #### 2 854803, 11150751, 75757520, 9301241, 0747253 #### [facility] [address] [place] [address] Globulin (S) [Mass/Vol] 4.8 g/dL High 1.4-4.0 [facility] Comment on above: Performed By: #### 2 433902, 11280274, 00357717, 6390699, 3051926 #### [facility] [address] [place] [address] Glucose [Mass/Vol] 105 mg/dL Normal 55-199 [facility] Comment on above: Result Comment: If t his glucose result represents a fasting glucose, interpretation should refer to the following reference range: 55-99 mg/dL Performed By: #### 2 823797, 19452853, 20546640, 0965722, 3079073 #### [facility] [address] [place] [address] Potassium [Moles/Vol] 3.7 mmol/L Normal 3.5-5.3 [facility] Comment on above: Performed By: #### 2 220362, 24468274, 27204380, 9485875, 6835150 #### [facility] [address] [place] [address] Protein [Mass/Vol] 7.7 g/dL Normal 6.0-7.8 [facility] Comment on above: Performed By: #### 2 920129, 86295665, 47871363, 0530158, 0528960 #### [facility] [address] [place] [address] Sodium [Moles/Vol] 136 mmol/L Normal 135-145 [facility] Comment on above: Performed By: #### 2 826123, 46807311, 55536213, 3490736, 3507877 #### [facility] [address] [place] [address] Urea nitrogen [Mass/Vol] 9 mg/dL Normal 5-21 [facility] Comment on above: Performed By: #### 2 974419, 10534340, 51182540, 5283745, 1063030 #### [facility] [address] [place] [address] Urea nitrogen/Creatinin e [Mass ratio] 18 No Units Normal 10-20 [facility] Comment on above: Performed By: #### 2 889077, 63127808, 57563892, 2268753, 9744072 #### [facility] [address] [place] [address] Morphon 12-25-2017 Anisocytosis Ql (Bld) Present Normal [facility] Comment on above: Order Comment: Order Added by Discern Expert. Performed By: #### 2 550845, 10106342, 80425667, 1001349, 3265973 #### [facility] [address] [place] [address] Morphology Víctor (Bld) [Interp] See Morphology Normal [facility] Comment on above: Order Comment: Order Added by Discern Expert. Performed By: #### 2 359628, 80838440, 56966004, 1709699, 1758065 #### [facility] [address] [place] [address] Platelets Large LM Ql (Bld) Present Normal [facility] Comment on above: Order Comment: Order Added by Discern Expert. Performed By: #### 2 192787, 70472106, 29494769, 6629897, 3356939 #### [facility] [address] [place] [address] eGFRon 12-25-2017 GFR/1.73 sq M predicted among blacks MDRD (S/P/Bld) [Vol rate/Area] mL/min/{1.73_m2} Normal >=59 [facility] Comment on above: Order Comment: Order added by Vin Expert. Result Comment: eGFR is race adjusted. AA=. Performed By: #### 2 207578, 31865749, 92800797, 4660792, 1971897 #### [facility] [address] [place] [address] GFR/1.73 sq M predicted among non-blacks MDRD (S/P/Bld) [Vol rate/Area] mL/min/{1.73_m2} Normal >=59 [facility] Comment on above: Order Comment: Order added by Vin Expert. Result Comment: Cattle Tr[employer] kaleigh kidney disease could be indicated at eGFR's of less than 60 mL/min/1.73m2. Kidney failure is indicated at less than 15 mL/min/1.73m2. Performed By: #### 2 347073, 87691843, 68678964, 8203044, 6803250 #### [facility] [address] [place] [address] Coding Summary.on 12-18-2017 Coding Summary. CODING DATE: 018 FINAL [facility] STATUS: Home (Routine DC) PAYOR: [facility] [place] [facility] DESCRIPTION 5571 Level 1 Imaging with [...] [place] Date Saved: 12/18/2017 12:08 pm Normal [facility] Creatinineon 12-17-2017 Creatinine [Mass/Vol] 0.5 mg/dL Normal 0.5-1.3 [facility] Comment on above: Performed By: #### 1 4508800, 7283105 #### [facility] [address] [place] [address] eGFRon 12-17-2017 GFR/1.73 sq M predicted among blacks MDRD (S/P/Bld) [Vol rate/Area] mL/min/{1.73_m2} Normal >=59 [facility] Comment on above: Order Comment: Order added by Discern Expert. Result Comment: eGFR is race adjusted. AA=. Performed By: #### 1 1461093, 1430425 #### [facility] [address] [place] [address] GFR/1.73 sq M predicted among non-blacks MDRD (S/P/Bld) [Vol rate/Area] mL/min/{1.73_m2} Normal >=59 [facility] Comment on above: Order Comment: Order added by Discern Expert. Result Comment: [employer]attle [employer] kaleigh kidney disease could be indicated at eGFR's of less than 60 mL/min/1.73m2. Kidney failure is indicated at less than 15 mL/min/1.73m2. Performed By: #### 1 9919184, 1997115 #### [facility] [address] [place] [address] Cult, Bloodon 11-08-2017 Cult, Blood Specimen Description .BLOOD Special Requests LT HAND Culture NO GROWTH 6 DAYS Report Status FINAL 11/08/2017 [facility] Comment on above: Performed By: #### L IP, LACWB, IOCAL, PT, CDP, CHANDU, PTT, LIPR, CMPX ####[facility] [address] [place] [address] Cult,Bloodon 11-08-2017 Cult,Blood Specimen Description .BLOOD Special Requests NOT REPORTED Culture NO GROWTH 6 DAYS Report Status FINAL 11/08/2017 [facility] Comment on above: Performed By: #### L IP, LACWB, IOCAL, PT, CDP, CHANDU, PTT, LIPR, CMPX ####[address] [place] [address] Plan of Careon 11-04-2017 HIM IP Note OR Pediatric Care Coordinator Normal [facility] Basic Metabolic Profon 11-03 (cont.) Normal [facility] Comment on above: Result Comment: Aver age GFR for 60-69 years old: 85 mL/min/1.73sq mChronic Kidney Disease: <60 mL/min/1.73sq mKidney failure: <15 mL/min/1.73sq meGFR calculated using average adult body mass. Additional eGFR calculator available at:http://[email or web address].Sunlot/multiple_crcl_2012.htm Performed By: #### L IP, LACWB, IOCAL, PT, CDP, CHANDU, PTT, LIPR, CMPX ####[address] [place] [address] Anion gap 3 molar conc 9 mmol/L Normal 9-17 [facility] Comment on above: Performed By: #### L IP, LACWB, IOCAL, PT, CDP, CHANDU, PTT, LIPR, CMPX ####[facility] [address] [place] [address] Calcium mass conc 8.3 mg/dL Low 8.6-10.4 [facility] Comment on above: Performed By: #### L IP, LACWB, IOCAL, PT, CDP, CHANDU, PTT, LIPR, CMPX ####[facility] [address] [place] [address] Chloride molar conc 111 mmol/L High 98-107 [facility] Comment on above: Performed By: #### L IP, LACWB, IOCAL, PT, CDP, CHANDU, PTT, LIPR, CMPX ####[address] [address] CO2 molar conc 26 mmol/L Normal 20-31 [facility] Comment on above: Performed By: #### L IP, LACWB, IOCAL, PT, CDP, CHANDU, PTT, LIPR, CMPX ####[address] [address] Creatinine mass conc 0.84 mg/dL Normal 0.50-0.90 [facility] Comment on above: Performed By: #### L IP, LACWB, IOCAL, PT, CDP, CHANDU, PTT, LIPR, CMPX ####[address] [address] GFR, Amer >60 Normal >60 [facility] Comment on above: Performed By: #### L IP, LACWB, IOCAL, PT, CDP, CHANDU, PTT, LIPR, CMPX ####[address] [address] GFR,non Amer >60 Normal >60 [facility] Comment on above: Performed By: #### L IP, LACWB, IOCAL, PT, CDP, CHANDU, PTT, LIPR, CMPX ####[address] [place] [address] Glucose mass conc 124 mg/dL High 70-99 [facility] Comment on above: Performed By: #### L IP, LACWB, IOCAL, PT, CDP, CHANDU, PTT, LIPR, CMPX ####[address] [address] Potassium molar conc 4.2 mmol/L Normal 3.7-5.3 [facility] Comment on above: Performed By: #### L IP, LACWB, IOCAL, PT, CDP, CHANDU, PTT, LIPR, CMPX ####[address] [place] [address] Sodium molar conc 146 mmol/L High 135-144 [facility] Comment on above: Performed By: #### L IP, LACWB, IOCAL, PT, CDP, CHANDU, PTT, LIPR, CMPX ####[facility] [id number] [place] [address] Urea nitrogen mass conc 25 mg/dL High 8- [facility] Comment on above: Performed By: #### L IP, LACWB, IOCAL, PT, CDP, CHANDU, PTT, LIPR, CMPX ####[address] [place] [address] BUN/CRE Ratio NOT REPORTED Normal - [facility] Comment on above: Performed By: #### L IP, LACWB, IOCAL, PT, CDP, CHANDU, PTT, LIPR, CMPX ####[address] [place] [address] Staging: NOT REPORTED Normal [facility] Comment on above: Performed By: #### L IP, LACWB, IOCAL, PT, CDP, CHANDU, PTT, LIPR, CMPX ####[facility] [address] [place] [address] CBC with Diffon 11-03-2017 Abs. Basophil 0.00 k/uL Normal 0.0-0.2 [facility] Comment on above: Performed By: #### L IP, LACWB, IOCAL, PT, CDP, CHANDU, PTT, LIPR, CMPX ####[facility] [address] [place] [address] Abs.Imm.Granulocyt e 0.33 k/uL High 0.00-0.30 [facility] Comment on above: Performed By: #### L IP, LACWB, IOCAL, PT, CDP, CHANDU, PTT, LIPR, CMPX ####[place] [address] Abs.Neutrophil (Seg) 13.12 k/uL High 1.8-7.7 [facility] Comment on above: Performed By: #### L IP, LACWB, IOCAL, PT, CDP, CHANDU, PTT, LIPR, CMPX ####[place] [address] Basophils/100 WBC Auto (Bld) 0 % Normal 0-2 [facility] Comment on above: Performed By: #### L IP, LACWB, IOCAL, PT, CDP, CHANDU, PTT, LIPR, CMPX ####[place] [address] Eosinophils Auto #/vol (Bld) 0.00 10*3/uL Normal 0.0-0.4 [facility] Comment on above: Performed By: #### L IP, LACWB, IOCAL, PT, CDP, CHANDU, PTT, LIPR, CMPX ####[place] [address] Eosinophils/100 WBC Auto (Bld) 0 % Low 1-4 [facility] Comment on above: Performed By: #### L IP, LACWB, IOCAL, PT, CDP, CHANDU, PTT, LIPR, CMPX ####[place] [address] Immature granulocytes #/vol (Bld) 2 % High 0 [facility] Comment on above: Performed By: #### L IP, LACWB, IOCAL, PT, CDP, CHANDU, PTT, LIPR, CMPX ####[place] [address] Lymphocytes Auto #/vol (Bld) 1.49 10*3/uL Normal 1.0-4.8 [facility] Comment on above: Performed By: #### L IP, LACWB, IOCAL, PT, CDP, CHANDU, PTT, LIPR, CMPX ####[address] [address] Lymphocytes/100 WBC Auto (Bld) 9 % Low 24-44 [facility] Comment on above: Performed By: #### L IP, LACWB, IOCAL, PT, CDP, CHANDU, PTT, LIPR, CMPX ####[address] [address] Monocytes Auto #/vol (Bld) 1.66 10*3/uL High 0.1-0.8 [facility] Comment on above: Performed By: #### L IP, LACWB, IOCAL, PT, CDP, CHANDU, PTT, LIPR, CMPX ####[address] [address] Monocytes/100 WBC Auto (Bld) 10 % High 1-7 [facility] Comment on above: Performed By: #### L IP, LACWB, IOCAL, PT, CDP, CHANDU, PTT, LIPR, CMPX ####[address] [address] Morphology Interp Víctor (Bld) ANISOCYTOSIS PRESENT Normal [facility] Comment on above: Result Comment: INCR EASED BANDS PRESENTTOXIC GRANULATION PRESENT Performed By: #### L IP, LACWB, IOCAL, PT, CDP, CHANDU, PTT, LIPR, CMPX ####[address] [address] Neutrophil (Seg) 79 % High 36-66 [facility] Comment on above: Performed By: #### L IP, LACWB, IOCAL, PT, CDP, CHANDU, PTT, LIPR, CMPX ####[address] [address] Erythrocyte distribution width Auto Ratio (RBC) 15.1 % High 11.8-14.4 [facility] Comment on above: Performed By: #### L IP, LACWB, IOCAL, PT, CDP, CHANDU, PTT, LIPR, CMPX ####[address] [address] Hematocrit Auto Volume Fraction (Bld) 35.4 % Low 36.3-47.1 [facility] Comment on above: Performed By: #### L IP, LACWB, IOCAL, PT, CDP, CHANDU, PTT, LIPR, CMPX ####[address] [address] Hemoglobin mass conc (Bld) 10.6 g/dL Low 11.9-15.1 [facility] Comment on above: Performed By: #### L IP, LACWB, IOCAL, PT, CDP, CHANDU, PTT, LIPR, CMPX ####[address] [address] MCH Auto Entitic mass (RBC) 26.3 pg Normal 25.2-33.5 [facility] Comment on above: Performed By: #### L IP, LACWB, IOCAL, PT, CDP, CHANDU, PTT, LIPR, CMPX ####[address] [address] MCHC Auto mass conc (RBC) 29.9 g/dL Normal 28.4-34.8 [facility] Comment on above: Performed By: #### L IP, LACWB, IOCAL, PT, CDP, CHANDU, PTT, LIPR, CMPX ####[address] [address] MCV Auto Entitic volume (RBC) 87.8 fL Normal 82.6-102.9 [facility] Comment on above: Performed By: #### L IP, LACWB, IOCAL, PT, CDP, CHANDU, PTT, LIPR, CMPX ####[place] [address] NRBC Automated 0.1 per 100 WBC High 0.0 [facility] Comment on above: Performed By: #### L IP, LACWB, IOCAL, PT, CDP, CHANDU, PTT, LIPR, CMPX ####[address] [address] Platelet mean volume Auto Entitic volume (Bld) 11.4 fL Normal 8.1-13.5 [facility] Comment on above: Performed By: #### L IP, LACWB, IOCAL, PT, CDP, CHANDU, PTT, LIPR, CMPX ####[place] [address] Platelets Auto #/vol (Bld) 267 10*3/uL Normal 138-453 [facility] Comment on above: Performed By: #### L IP, LACWB, IOCAL, PT, CDP, CHANDU, PTT, LIPR, CMPX ####[address] [address] RBC Auto #/vol (Bld) 4.03 10*6/uL Normal 3.95-5.11 [facility] Comment on above: Performed By: #### L IP, LACWB, IOCAL, PT, CDP, CHANDU, PTT, LIPR, CMPX ####[address] [address] WBC Auto #/vol (Bld) 16.6 10*3/uL High 3.5-11.3 [facility] Comment on above: Performed By: #### L IP, LACWB, IOCAL, PT, CDP, CHANDU, PTT, LIPR, CMPX ####[address] [address] Auto Diff Performed NOT REPORTED Normal [facility] Comment on above: Performed By: #### L IP, LACWB, IOCAL, PT, CDP, CHANDU, PTT, LIPR, CMPX ####[place] [address] Platelets Auto #/vol (Bld) NOT REPORTED Normal [facility] Comment on above: Performed By: #### L IP, LACWB, IOCAL, PT, CDP, CHANDU, PTT, LIPR, CMPX ####[place] [address] RBC morphology finding Nom (Bld) NOT REPORTED Normal [facility] Comment on above: Performed By: #### L IP, LACWB, IOCAL, PT, CDP, CHANDU, PTT, LIPR, CMPX ####[place] [address] WBC Morphology NOT REPORTED Normal [facility] Comment on above: Performed By: #### L IP, LACWB, IOCAL, PT, CDP, CHANDU, PTT, LIPR, CMPX ####[place] [address] Abs. Basophil 0.00 k/uL Normal 0.0-0.2 [facility] Comment on above: Performed By: #### L IP, LACWB, IOCAL, PT, CDP, CHANDU, PTT, LIPR, CMPX ####[place] [address] Abs.Imm.Granulocyt e 0.16 k/uL Normal 0.00-0.30 [facility] Comment on above: Performed By: #### L IP, LACWB, IOCAL, PT, CDP, CHANDU, PTT, LIPR, CMPX ####[facility] [address] [place] [address] Abs.Neutrophil (Seg) 13.34 k/uL High 1.8-7.7 [facility] Comment on above: Performed By: #### L IP, LACWB, IOCAL, PT, CDP, CHANDU, PTT, LIPR, CMPX ####[address] [address] Basophils/100 WBC Auto (Bld) 0 % Normal 0-2 [facility] Comment on above: Performed By: #### L IP, LACWB, IOCAL, PT, CDP, CHANDU, PTT, LIPR, CMPX ####[address] [address] Eosinophils Auto #/vol (Bld) 0.00 10*3/uL Normal 0.0-0.4 [facility] Comment on above: Performed By: #### L IP, LACWB, IOCAL, PT, CDP, CHANDU, PTT, LIPR, CMPX ####[place] [address] Eosinophils/100 WBC Auto (Bld) 0 % Low 1-4 [facility] Comment on above: Performed By: #### L IP, LACWB, IOCAL, PT, CDP, CHANDU, PTT, LIPR, CMPX ####[address] [address] Immature granulocytes #/vol (Bld) 1 % High 0 [facility] Comment on above: Performed By: #### L IP, LACWB, IOCAL, PT, CDP, CHANDU, PTT, LIPR, CMPX ####[address] [address] Lymphocytes Auto #/vol (Bld) 1.10 10*3/uL Normal 1.0-4.8 [facility] Comment on above: Performed By: #### L IP, LACWB, IOCAL, PT, CDP, CHANDU, PTT, LIPR, CMPX ####[address] [address] Lymphocytes/100 WBC Auto (Bld) 7 % Low 24-44 [facility] Comment on above: Performed By: #### L IP, LACWB, IOCAL, PT, CDP, CHANDU, PTT, LIPR, CMPX ####[address] [address] Monocytes Auto #/vol (Bld) 1.10 10*3/uL High 0.1-0.8 [facility] Comment on above: Performed By: #### L IP, LACWB, IOCAL, PT, CDP, CHANDU, PTT, LIPR, CMPX ####[address] [address] Monocytes/100 WBC Auto (Bld) 7 % Normal 1-7 [facility] Comment on above: Performed By: #### L IP, LACWB, IOCAL, PT, CDP, CHNADU, PTT, LIPR, CMPX ####[address] [address] Morphology Interp Víctor (Bld) INCREASED BANDS PRESENT Normal [facility] Comment on above: Result Comment: TOXI C GRANULATION PRESENTANISOCYTOSIS PRESENT Performed By: #### L IP, LACWB, IOCAL, PT, CDP, CHANDU, PTT, LIPR, CMPX ####[address] [address] Neutrophil (Seg) 85 % High 36-66 [facility] Comment on above: Performed By: #### L IP, LACWB, IOCAL, PT, CDP, CHANDU, PTT, LIPR, CMPX ####[address] [address] Erythrocyte distribution width Auto Ratio (RBC) 15.0 % High 11.8-14.4 [facility] Comment on above: Performed By: #### L IP, LACWB, IOCAL, PT, CDP, CHANDU, PTT, LIPR, CMPX ####[address] [address] Hematocrit Auto Volume Fraction (Bld) 35.5 % Low 36.3-47.1 [facility] Comment on above: Performed By: #### L IP, LACWB, IOCAL, PT, CDP, CHANDU, PTT, LIPR, CMPX ####[address] [address] Hemoglobin mass conc (Bld) 10.8 g/dL Low 11.9-15.1 [facility] Comment on above: Performed By: #### L IP, LACWB, IOCAL, PT, CDP, CHANDU, PTT, LIPR, CMPX ####[address] [address] MCH Auto Entitic mass (RBC) 26.5 pg Normal 25.2-33.5 [facility] Comment on above: Performed By: #### L IP, LACWB, IOCAL, PT, CDP, CHANDU, PTT, LIPR, CMPX ####[address] [address] MCHC Auto mass conc (RBC) 30.4 g/dL Normal 28.4-34.8 [facility] Comment on above: Performed By: #### L IP, LACWB, IOCAL, PT, CDP, CHANDU, PTT, LIPR, CMPX ####[address] [address] MCV Auto Entitic volume (RBC) 87.2 fL Normal 82.6-102.9 [facility] Comment on above: Performed By: #### L IP, LACWB, IOCAL, PT, CDP, CHANDU, PTT, LIPR, CMPX ####[place] [address] NRBC Automated 0.0 per 100 WBC Normal 0.0 [facility] Comment on above: Performed By: #### L IP, LACWB, IOCAL, PT, CDP, CHANDU, PTT, LIPR, CMPX ####[address] [address] Platelet mean volume Auto Entitic volume (Bld) 11.7 fL Normal 8.1-13.5 [facility] Comment on above: Performed By: #### L IP, LACWB, IOCAL, PT, CDP, CHANDU, PTT, LIPR, CMPX ####[address] [address] Platelets Auto #/vol (Bld) 260 10*3/uL Normal 138-453 [facility] Comment on above: Performed By: #### L IP, LACWB, IOCAL, PT, CDP, CHANDU, PTT, LIPR, CMPX ####[address] [address] RBC Auto #/vol (Bld) 4.07 10*6/uL Normal 3.95-5.11 [facility] Comment on above: Performed By: #### L IP, LACWB, IOCAL, PT, CDP, CHANDU, PTT, LIPR, CMPX ####[address] [address] WBC Auto #/vol (Bld) 15.7 10*3/uL High 3.5-11.3 [facility] Comment on above: Performed By: #### L IP, LACWB, IOCAL, PT, CDP, CHANDU, PTT, LIPR, CMPX ####[address] [address] Auto Diff Performed NOT REPORTED Normal [facility] Comment on above: Performed By: #### L IP, LACWB, IOCAL, PT, CDP, CHANDU, PTT, LIPR, CMPX ####[facility] [address] [place] [address] Platelets Auto #/vol (Bld) NOT REPORTED Normal [facility] Comment on above: Performed By: #### L IP, LACWB, IOCAL, PT, CDP, CHANDU, PTT, LIPR, CMPX ####[facility] [address] [place] [address] RBC morphology finding Nom (Bld) NOT REPORTED Normal [facility] Comment on above: Performed By: #### L IP, LACWB, IOCAL, PT, CDP, CHANDU, PTT, LIPR, CMPX ####[facility] [address] [place] [address] WBC Morphology NOT REPORTED Normal [facility] Comment on above: Performed By: #### L IP, LACWB, IOCAL, PT, CDP, CHANDU, PTT, LIPR, CMPX ####[facility] [address] [place] [address] CT ABDOMEN PELVIS W IV CONTR Sukumar [...] by:VIRGIL Woodsigned by:Abhishek Cat MD11/03/inal result Normal [facility] Calcium, Ionicon 11-03-2017 Calcium mass conc 1.21 mmol/L Normal 1.13-1.33 [facility] Comment on above: Performed By: #### L IP, LACWB, IOCAL, PT, CDP, CHANDU, PTT, LIPR, CMPX ####[facility] [address] [place] [address] Comp Metabolic Pr/rfx MGon 0 11-03-2017 (cont.) Normal [facility] Comment on above: Result Comment: Aver age GFR for 60-69 years old: 85 mL/min/1.73sq mChronic Kidney Disease: <60 mL/min/1.73sq mKidney failure: <15 mL/min/1.73sq meGFR calculated using average adult body mass. Additional eGFR calculator available at:http://www.Beautified.Sunlot/multiple_crcl_2012.htm Performed By: #### L IP, LACWB, IOCAL, PT, CDP, CHANDU, PTT, LIPR, CMPX ####[employer] [place] [address] Albumin mass conc 2.3 g/dL Low 3.5-5.2 [facility] Comment on above: Performed By: #### L IP, LACWB, IOCAL, PT, CDP, CHANDU, PTT, LIPR, CMPX ####[address] [place] [address] Albumin/Globulin mass ratio 0.7 {ratio} Low 1.0-2.5 [facility] Comment on above: Performed By: #### L IP, LACWB, IOCAL, PT, CDP, CHANDU, PTT, LIPR, CMPX ####[address] [address] Alkaline Phos 84 U/L Normal 35-104 [facility] Comment on above: Performed By: #### L IP, LACWB, IOCAL, PT, CDP, CHANDU, PTT, LIPR, CMPX ####[address] [address] ALT enzyme act/vol 44 U/L High 5-33 [facility] Comment on above: Performed By: #### L IP, LACWB, IOCAL, PT, CDP, CHANDU, PTT, LIPR, CMPX ####[address] [place] [address] Anion gap 3 molar conc 12 mmol/L Normal 9-17 [facility] Comment on above: Performed By: #### L IP, LACWB, IOCAL, PT, CDP, CHANDU, PTT, LIPR, CMPX ####[address] [place] [address] AST enzyme act/vol 43 U/L High <32 [facility] Comment on above: Performed By: #### L IP, LACWB, IOCAL, PT, CDP, CHANDU, PTT, LIPR, CMPX ####[address] [place] [address] Bilirubin Ql (U) 0.51 mg/dL Normal 0.3-1.2 [facility] Comment on above: Performed By: #### L IP, LACWB, IOCAL, PT, CDP, CHANDU, PTT, LIPR, CMPX ####[address] [place] [address] Calcium mass conc 8.3 mg/dL Low 8.6-10.4 [facility] Comment on above: Performed By: #### L IP, LACWB, IOCAL, PT, CDP, CHANDU, PTT, LIPR, CMPX ####[address] [address] Chloride molar conc 106 mmol/L Normal 98-107 [facility] Comment on above: Performed By: #### L IP, LACWB, IOCAL, PT, CDP, CHANDU, PTT, LIPR, CMPX ####[address] [address] CO2 molar conc 23 mmol/L Normal 20-31 [facility] Comment on above: Performed By: #### L IP, LACWB, IOCAL, PT, CDP, CHANDU, PTT, LIPR, CMPX ####[address] [address] Creatinine mass conc 0.90 mg/dL Normal 0.50-0.90 [facility] Comment on above: Performed By: #### L IP, LACWB, IOCAL, PT, CDP, CHANDU, PTT, LIPR, CMPX ####[address] [address] GFR, Amer >60 Normal >60 [facility] Comment on above: Performed By: #### L IP, LACWB, IOCAL, PT, CDP, CHANDU, PTT, LIPR, CMPX ####[address] [address] GFR,non Amer >60 Normal >60 [facility] Comment on above: Performed By: #### L IP, LACWB, IOCAL, PT, CDP, CHANDU, PTT, LIPR, CMPX ####[address] [place] [address] Glucose mass conc 151 mg/dL High 70-99 [facility] Comment on above: Performed By: #### L IP, LACWB, IOCAL, PT, CDP, CHANDU, PTT, LIPR, CMPX ####[facility] [address] [place] [address] Potassium molar conc 3.8 mmol/L Normal 3.7-5.3 [facility] Comment on above: Performed By: #### L IP, LACWB, IOCAL, PT, CDP, CHANDU, PTT, LIPR, CMPX ####[address] [place] [address] Protein mass conc 5.7 g/dL Low 6.4-8.3 [facility] Comment on above: Performed By: #### L IP, LACWB, IOCAL, PT, CDP, CHANDU, PTT, LIPR, CMPX ####[facility] [place] [address] Sodium molar conc 141 mmol/L Normal 135-144 [facility] Comment on above: Performed By: #### L IP, LACWB, IOCAL, PT, CDP, CHANDU, PTT, LIPR, CMPX ####[facility] [place] [address] Urea nitrogen mass conc 26 mg/dL High 8-23 [facility] Comment on above: Performed By: #### L IP, LACWB, IOCAL, PT, CDP, CHANDU, PTT, LIPR, CMPX ####[address] [place] [address] BUN/CRE Ratio NOT REPORTED Normal 9-20 [facility] Comment on above: Performed By: #### L IP, LACWB, IOCAL, PT, CDP, CHANDU, PTT, LIPR, CMPX ####[address] [place] [address] Staging: NOT REPORTED Normal [facility] Comment on above: Performed By: #### L IP, LACWB, IOCAL, PT, CDP, CHANDU, PTT, LIPR, CMPX ####[facility] [address] [place] [address] Cult,Urine,Cathon 11-03-2017 Cult,Urine,Cath Specimen Description .CATHETERIZED URINE Special Requests NOT REPORTED Culture NO GROWTH Report Status FINAL 11/02/2017 Normal [facility] Comment on above: Performed By: #### L IP, LACWB, IOCAL, PT, CDP, CHANDU, PTT, LIPR, CMPX ####[facility] [address] [place] [address] Discharge Summaryon 11-04-19 18 HIM IP Note OR Pediatric Care Coordinator Normal [facility] Plan of Careon 11-03-2017 HIM IP Note OR Pediatric Care Coordinator Normal [facility] HIM IP Note OR Pediatric Care Coordinator Normal [facility] Progress Noteon 11-03-2017 HIM IP Note OR Pediatric Care Coordinator Normal [facility] HIM IP Note OR Pediatric Care Coordinator Normal [facility] HIM IP Note OR Pediatric Care Coordinator Normal [facility] HIM IP Note OR Pediatric Care Coordinator Normal [facility] XR ABDOMEN (KUB) (SINGLE AP VIEW)on 11-03-2017 XR ABDOMEN (KUB) (SINGLE AP VIEW) EXAMINATION:SINGLE SUPINE XRAY VIEW(S) OF THE ABDOMEN11/03/2017 8:42 amCOMPARISON:CT abdomen pelvis from 10/30/2017HISTORY:BOWENIN Zounds SYSTEM PROVIDED HISTORY: reeval ileusTECHNOLOGIST PROVIDED HISTORY:reeval [id number] female; re-evaluate ileusFINDINGS:Portable supine view of the abdomen.Enteric tube traverses the GE junction with distal tip overlying the midmidline abdomen, likely within the body of the stomach. Blunting of the leftcostophrenic angle may represent chronic pleural thickening versus smallleft-sided pleural effusion. Stable left basilar opacity, atelectasis,infiltrate, or mild scarring.web mobile designer leads overlie the abdomen. Mild diffuse degenerative [...] by:VIRGIL Gutierrezigned by:Braeden Chavez MD11/03/17inal result Normal [facility] APTTon 11-02-2017 aPTT Coag time (Bld) 27.1 s Normal 20.5-30.5 [facility] Comment on above: Performed By: #### L IP, LACWB, IOCAL, PT, CDP, CHANDU, PTT, LIPR, CMPX ####[facility] [address] [place], [place] [id number] Amylaseon 11-02-2017 Amylase enzyme act/vol 104 U/L High 28-100 [facility] Comment on above: Performed By: #### L IP, LACWB, IOCAL, PT, CDP, CHANDU, PTT, LIPR, CMPX ####[facility] [address] [place] [address] CBC with Diffon 11-02-2017 Abs. Basophil 0.00 k/uL Normal 0.00-0.20 [facility] Comment on above: Performed By: #### L IP, LACWB, IOCAL, PT, CDP, CHANDU, PTT, LIPR, CMPX ####[address] [place] [address] Abs.Imm.Granulocyt e 0.14 k/uL Normal 0.00-0.30 [facility] Comment on above: Performed By: #### L IP, LACWB, IOCAL, PT, CDP, CHANDU, PTT, LIPR, CMPX ####[place] [address] Abs.Neutrophil (Seg) 11.01 k/uL High 1.50-8.10 [facility] Comment on above: Performed By: #### L IP, LACWB, IOCAL, PT, CDP, CHANDU, PTT, LIPR, CMPX ####[place] [address] Basophils/100 WBC Auto (Bld) 0 % Normal 0-2 [facility] Comment on above: Performed By: #### L IP, LACWB, IOCAL, PT, CDP, CHANDU, PTT, LIPR, CMPX ####[place] [address] Eosinophils Auto #/vol (Bld) 0.00 10*3/uL Normal 0.00-0.44 [facility] Comment on above: Performed By: #### L IP, LACWB, IOCAL, PT, CDP, CHANDU, PTT, LIPR, CMPX ####[address] [address] Eosinophils/100 WBC Auto (Bld) 0 % Low 1-4 [facility] Comment on above: Performed By: #### L IP, LACWB, IOCAL, PT, CDP, CHANDU, PTT, LIPR, CMPX ####[address] [address] Immature granulocytes #/vol (Bld) 1 % High 0 [facility] Comment on above: Performed By: #### L IP, LACWB, IOCAL, PT, CDP, CHANDU, PTT, LIPR, CMPX ####[address] [address] Lymphocytes Auto #/vol (Bld) 1.09 10*3/uL Low 1.10-3.70 [facility] Comment on above: Performed By: #### L IP, LACWB, IOCAL, PT, CDP, CHANDU, PTT, LIPR, CMPX ####[address] [address] Lymphocytes/100 WBC Auto (Bld) 8 % Low 24-43 [facility] Comment on above: Performed By: #### L IP, LACWB, IOCAL, PT, CDP, CHANDU, PTT, LIPR, CMPX ####[address] [address] Monocytes Auto #/vol (Bld) 1.36 10*3/uL High 0.10-1.20 [facility] Comment on above: Performed By: #### L IP, LACWB, IOCAL, PT, CDP, CHANDU, PTT, LIPR, CMPX ####[address] [address] Monocytes/100 WBC Auto (Bld) 10 % Normal 3-12 [facility] Comment on above: Performed By: #### L IP, LACWB, IOCAL, PT, CDP, CHANDU, PTT, LIPR, CMPX ####[address] [address] Morphology Interp Víctor (Bld) ANISOCYTOSIS PRESENT Normal [facility] Comment on above: Result Comment: TOXI C GRANULATION PRESENT Performed By: #### L IP, LACWB, IOCAL, PT, CDP, CHANDU, PTT, LIPR, CMPX ####[address] [address] Neutrophil (Seg) 81 % High 36-65 [facility] Comment on above: Performed By: #### L IP, LACWB, IOCAL, PT, CDP, CHANDU, PTT, LIPR, CMPX ####[address] [address] NRBC Automated 0.0 per 100 WBC Normal 0.0 [facility] Comment on above: Performed By: #### L IP, LACWB, IOCAL, PT, CDP, CHANDU, PTT, LIPR, CMPX ####[address] [address] Platelet mean volume Auto Entitic volume (Bld) 11.5 fL Normal 8.1-13.5 [facility] Comment on above: Performed By: #### L IP, LACWB, IOCAL, PT, CDP, CHANDU, PTT, LIPR, CMPX ####[address] [address] Platelets Auto #/vol (Bld) 231 10*3/uL Normal 138-453 [facility] Comment on above: Performed By: #### L IP, LACWB, IOCAL, PT, CDP, CHANDU, PTT, LIPR, CMPX ####[address] [address] WBC Auto #/vol (Bld) 13.6 10*3/uL High 3.5-11.3 [facility] Comment on above: Performed By: #### L IP, LACWB, IOCAL, PT, CDP, CHANDU, PTT, LIPR, CMPX ####[address] [address] Erythrocyte distribution width Auto Ratio (RBC) 14.8 % High 11.8-14.4 [facility] Comment on above: Performed By: #### L IP, LACWB, IOCAL, PT, CDP, CHANDU, PTT, LIPR, CMPX ####[address] [address] Hematocrit Auto Volume Fraction (Bld) 34.5 % Low 36.3-47.1 [facility] Comment on above: Performed By: #### L IP, LACWB, IOCAL, PT, CDP, CHANDU, PTT, LIPR, CMPX ####[address] [address] Hemoglobin mass conc (Bld) 10.3 g/dL Low 11.9-15.1 [facility] Comment on above: Performed By: #### L IP, LACWB, IOCAL, PT, CDP, CHANDU, PTT, LIPR, CMPX ####[address] [address] MCH Auto Entitic mass (RBC) 26.3 pg Normal 25.2-33.5 [facility] Comment on above: Performed By: #### L IP, LACWB, IOCAL, PT, CDP, CHANDU, PTT, LIPR, CMPX ####[address] [address] MCHC Auto mass conc (RBC) 29.9 g/dL Normal 28.4-34.8 [facility] Comment on above: Performed By: #### L IP, LACWB, IOCAL, PT, CDP, CHANDU, PTT, LIPR, CMPX ####[address] [address] MCV Auto Entitic volume (RBC) 88.0 fL Normal 82.6-102.9 [facility] Comment on above: Performed By: #### L IP, LACWB, IOCAL, PT, CDP, CHANDU, PTT, LIPR, CMPX ####[place] [address] RBC Auto #/vol (Bld) 3.92 10*6/uL Low 3.95-5.11 [facility] Comment on above: Performed By: #### L IP, LACWB, IOCAL, PT, CDP, CHANDU, PTT, LIPR, CMPX ####[place] [address] Auto Diff Performed NOT REPORTED Normal [facility] Comment on above: Performed By: #### L IP, LACWB, IOCAL, PT, CDP, CHANDU, PTT, LIPR, CMPX ####[place] [address] Platelets Auto #/vol (Bld) NOT REPORTED Normal [facility] Comment on above: Performed By: #### L IP, LACWB, IOCAL, PT, CDP, CHANDU, PTT, LIPR, CMPX ####[place] [address] RBC morphology finding Nom (Bld) NOT REPORTED Normal [facility] Comment on above: Performed By: #### L IP, LACWB, IOCAL, PT, CDP, CHANDU, PTT, LIPR, CMPX ####[place] [address] WBC Morphology NOT REPORTED Normal [facility] Comment on above: Performed By: #### L IP, LACWB, IOCAL, PT, CDP, CHANDU, PTT, LIPR, CMPX ####[place] [address] Abs. Basophil 0.00 k/uL Normal 0.0-0.2 [facility] Comment on above: Performed By: #### L IP, LACWB, IOCAL, PT, CDP, CHANDU, PTT, LIPR, CMPX ####[address] [address] Abs.Imm.Granulocyt e 0.12 k/uL Normal 0.00-0.30 [facility] Comment on above: Performed By: #### L IP, LACWB, IOCAL, PT, CDP, CHANDU, PTT, LIPR, CMPX ####[address] [address] Abs.Neutrophil (Seg) 9.24 k/uL High 1.8-7.7 [facility] Comment on above: Performed By: #### L IP, LACWB, IOCAL, PT, CDP, CHANDU, PTT, LIPR, CMPX ####[address] [address] Basophils/100 WBC Auto (Bld) 0 % Normal 0-2 [facility] Comment on above: Performed By: #### L IP, LACWB, IOCAL, PT, CDP, CHANDU, PTT, LIPR, CMPX ####[place] [address] Eosinophils Auto #/vol (Bld) 0.00 10*3/uL Normal 0.0-0.4 [facility] Comment on above: Performed By: #### L IP, LACWB, IOCAL, PT, CDP, CHANDU, PTT, LIPR, CMPX ####[address] [address] Eosinophils/100 WBC Auto (Bld) 0 % Low 1-4 [facility] Comment on above: Performed By: #### L IP, LACWB, IOCAL, PT, CDP, CHANDU, PTT, LIPR, CMPX ####[address] [address] Immature granulocytes #/vol (Bld) 1 % High 0 [facility] Comment on above: Performed By: #### L IP, LACWB, IOCAL, PT, CDP, CHANDU, PTT, LIPR, CMPX ####[address] [address] Lymphocytes Auto #/vol (Bld) 1.05 10*3/uL Normal 1.0-4.8 [facility] Comment on above: Performed By: #### L IP, LACWB, IOCAL, PT, CDP, CHANDU, PTT, LIPR, CMPX ####[address] [address] Lymphocytes/100 WBC Auto (Bld) 9 % Low 24-44 [facility] Comment on above: Performed By: #### L IP, LACWB, IOCAL, PT, CDP, CHANDU, PTT, LIPR, CMPX ####[address] [address] [address] Monocytes Auto #/vol (Bld) 1.29 10*3/uL High 0.1-0.8 [facility] Comment on above: Performed By: #### L IP, LACWB, IOCAL, PT, CDP, CHANDU, PTT, LIPR, CMPX ####[address] [address] Monocytes/100 WBC Auto (Bld) 11 % High 1-7 [facility] Comment on above: Performed By: #### L IP, LACWB, IOCAL, PT, CDP, CHANDU, PTT, LIPR, CMPX ####[address] [address] Morphology Interp Víctor (Bld) ANISOCYTOSIS PRESENT Normal [facility] Comment on above: Performed By: #### L IP, LACWB, IOCAL, PT, CDP, CHANDU, PTT, LIPR, CMPX ####[address] [address] Neutrophil (Seg) 79 % High 36-66 [facility] Comment on above: Performed By: #### L IP, LACWB, IOCAL, PT, CDP, CHANDU, PTT, LIPR, CMPX ####[address] [address] NRBC Automated 0.0 per 100 WBC Normal 0.0 [facility] Comment on above: Performed By: #### L IP, LACWB, IOCAL, PT, CDP, CHANDU, PTT, LIPR, CMPX ####[address] [address] Platelet mean volume Auto Entitic volume (Bld) 11.8 fL Normal 8.1-13.5 [facility] Comment on above: Performed By: #### L IP, LACWB, IOCAL, PT, CDP, CHANDU, PTT, LIPR, CMPX ####[place] [address] Platelets Auto #/vol (Bld) 201 10*3/uL Normal 138-453 [facility] Comment on above: Performed By: #### L IP, LACWB, IOCAL, PT, CDP, CHANDU, PTT, LIPR, CMPX ####[address] [address] WBC Auto #/vol (Bld) 11.7 10*3/uL High 3.5-11.3 [facility] Comment on above: Performed By: #### L IP, LACWB, IOCAL, PT, CDP, CHANDU, PTT, LIPR, CMPX ####[address] [address] Erythrocyte distribution width Auto Ratio (RBC) 14.7 % High 11.8-14.4 [facility] Comment on above: Performed By: #### L IP, LACWB, IOCAL, PT, CDP, CHANDU, PTT, LIPR, CMPX ####[address] [address] Hematocrit Auto Volume Fraction (Bld) 33.3 % Low 36.3-47.1 [facility] Comment on above: Performed By: #### L IP, LACWB, IOCAL, PT, CDP, CHANDU, PTT, LIPR, CMPX ####[address] [address] Hemoglobin mass conc (Bld) 10.3 g/dL Low 11.9-15.1 [facility] Comment on above: Performed By: #### L IP, LACWB, IOCAL, PT, CDP, CHANDU, PTT, LIPR, CMPX ####[address] [address] MCH Auto Entitic mass (RBC) 27.0 pg Normal 25.2-33.5 [facility] Comment on above: Performed By: #### L IP, LACWB, IOCAL, PT, CDP, CHANDU, PTT, LIPR, CMPX ####[address] [address] MCHC Auto mass conc (RBC) 30.9 g/dL Normal 28.4-34.8 [facility] Comment on above: Performed By: #### L IP, LACWB, IOCAL, PT, CDP, CHANDU, PTT, LIPR, CMPX ####[address] [address] MCV Auto Entitic volume (RBC) 87.4 fL Normal 82.6-102.9 [facility] Comment on above: Performed By: #### L IP, LACWB, IOCAL, PT, CDP, CHANDU, PTT, LIPR, CMPX ####[address] [address] RBC Auto #/vol (Bld) 3.81 10*6/uL Low 3.95-5.11 [facility] Comment on above: Performed By: #### L IP, LACWB, IOCAL, PT, CDP, CHANDU, PTT, LIPR, CMPX ####[address] [address] Auto Diff Performed NOT REPORTED Normal [facility] Comment on above: Performed By: #### L IP, LACWB, IOCAL, PT, CDP, CHANDU, PTT, LIPR, CMPX ####[address] [address] Platelets Auto #/vol (Bld) NOT REPORTED Normal [facility] Comment on above: Performed By: #### L IP, LACWB, IOCAL, PT, CDP, CHANDU, PTT, LIPR, CMPX ####[address] [address] RBC morphology finding Nom (Bld) NOT REPORTED Normal [facility] Comment on above: Performed By: #### L IP, LACWB, IOCAL, PT, CDP, CHANDU, PTT, LIPR, CMPX ####[address] [address] WBC Morphology NOT REPORTED Normal [facility] Comment on above: Performed By: #### L IP, LACWB, IOCAL, PT, CDP, CHANDU, PTT, LIPR, CMPX ####[address] [address] Calcium, Ionicon 11-02-2017 Calcium mass conc 1.08 mmol/L Low 1.13-1.33 [facility] Comment on above: Performed By: #### L IP, LACWB, IOCAL, PT, CDP, CHANDU, PTT, LIPR, CMPX ####[address] [address] Comp Metabolic Pr/rfx MGon 0 11-02-2017 (cont.) Normal [facility] Comment on above: Result Comment: Aver age GFR for 60-69 years old: 85 mL/min/1.73sq mChronic Kidney Disease: <60 mL/min/1.73sq mKidney failure: <15 mL/min/1.73sq meGFR calculated using average adult body mass. Additional eGFR calculator available at:http://www.Face-Me/multiple_crcl_2012.htm Performed By: #### L IP, LACWB, IOCAL, PT, CDP, CHANDU, PTT, LIPR, CMPX ####[facility] [address] [place] [address] Albumin mass conc 2.5 g/dL Low 3.5-5.2 [facility] Comment on above: Performed By: #### L IP, LACWB, IOCAL, PT, CDP, CHANDU, PTT, LIPR, CMPX ####[address] [place] [address] Albumin/Globulin mass ratio 0.7 {ratio} Low 1.0-2.5 [facility] Comment on above: Performed By: #### L IP, LACWB, IOCAL, PT, CDP, CHANDU, PTT, LIPR, CMPX ####[address] [place] [address] Alkaline Phos 74 U/L Normal 35-104 [facility] Comment on above: Performed By: #### L IP, LACWB, IOCAL, PT, CDP, CHANDU, PTT, LIPR, CMPX ####[facility] [place] [address] ALT enzyme act/vol 63 U/L High 5-33 [facility] Comment on above: Performed By: #### L IP, LACWB, IOCAL, PT, CDP, CHANDU, PTT, LIPR, CMPX ####[address] [place] [address] Anion gap 3 molar conc 14 mmol/L Normal 9-17 [facility] Comment on above: Performed By: #### L IP, LACWB, IOCAL, PT, CDP, CHANDU, PTT, LIPR, CMPX ####[address] [place] [address] AST enzyme act/vol 33 U/L High <32 [facility] Comment on above: Performed By: #### L IP, LACWB, IOCAL, PT, CDP, CHANDU, PTT, LIPR, CMPX ####[facility] [address] [place] [address] Bilirubin Ql (U) 0.80 mg/dL Normal 0.3-1.2 [facility] Comment on above: Performed By: #### L IP, LACWB, IOCAL, PT, CDP, CHANDU, PTT, LIPR, CMPX ####[address] [address] Calcium mass conc 8.1 mg/dL Low 8.6-10.4 [facility] Comment on above: Performed By: #### L IP, LACWB, IOCAL, PT, CDP, CHANDU, PTT, LIPR, CMPX ####[address] [place] [address] Chloride molar conc 105 mmol/L Normal 98-107 [facility] Comment on above: Performed By: #### L IP, LACWB, IOCAL, PT, CDP, CHANDU, PTT, LIPR, CMPX ####[address] [place] [address] CO2 molar conc 22 mmol/L Normal 20-31 [facility] Comment on above: Performed By: #### L IP, LACWB, IOCAL, PT, CDP, CHANDU, PTT, LIPR, CMPX ####[address] [place] [address] Creatinine mass conc 0.85 mg/dL Normal 0.50-0.90 [facility] Comment on above: Performed By: #### L IP, LACWB, IOCAL, PT, CDP, CHANDU, PTT, LIPR, CMPX ####[address] [place] [address] GFR, Amer >60 Normal >60 [facility] Comment on above: Performed By: #### L IP, LACWB, IOCAL, PT, CDP, CHANDU, PTT, LIPR, CMPX ####[facility] [address] [place] [address] GFR,non Amer >60 Normal >60 [facility] Comment on above: Performed By: #### L IP, LACWB, IOCAL, PT, CDP, CHANDU, PTT, LIPR, CMPX ####[address] [place] [address] Glucose mass conc 118 mg/dL High 70-99 [facility] Comment on above: Performed By: #### L IP, LACWB, IOCAL, PT, CDP, CHANDU, PTT, LIPR, CMPX ####[facility] [address] [place] [address] Potassium molar conc 3.8 mmol/L Normal 3.7-5.3 [facility] Comment on above: Performed By: #### L IP, LACWB, IOCAL, PT, CDP, CHANDU, PTT, LIPR, CMPX ####[facility] [address] [place] [address] Protein mass conc 5.9 g/dL Low 6.4-8.3 [facility] Comment on above: Performed By: #### L IP, LACWB, IOCAL, PT, CDP, CHANDU, PTT, LIPR, CMPX ####[facility] [address] [place] [address] Sodium molar conc 141 mmol/L Normal 135-144 [facility] Comment on above: Performed By: #### L IP, LACWB, IOCAL, PT, CDP, CHANDU, PTT, LIPR, CMPX ####[facility] [address] [place] [address] Urea nitrogen mass conc 17 mg/dL Normal 8- [facility] Comment on above: Performed By: #### L IP, LACWB, IOCAL, PT, CDP, CHANDU, PTT, LIPR, CMPX ####[facility] [address] [place] [address] BUN/CRE Ratio NOT REPORTED Normal 9- [facility] Comment on above: Performed By: #### L IP, LACWB, IOCAL, PT, CDP, CHANDU, PTT, LIPR, CMPX ####[address] [place] [address] Staging: NOT REPORTED Normal [facility] Comment on above: Performed By: #### L IP, LACWB, IOCAL, PT, CDP, CHANDU, PTT, LIPR, CMPX ####[address] [address] (cont.) Normal [facility] Comment on above: Result Comment: Aver age GFR for 60-69 years old: 85 mL/min/1.73sq mChronic Kidney Disease: <60 mL/min/1.73sq mKidney failure: <15 mL/min/1.73sq meGFR calculated using average adult body mass. Additional eGFR calculator available at:http://www.Beautified.com/multiple_crcl_2012.htm Performed By: #### L IP, LACWB, IOCAL, PT, CDP, CHANDU, PTT, LIPR, CMPX ####[facility] [address] [place] [address] Albumin mass conc 2.4 g/dL Low 3.5-5.2 [facility] Comment on above: Performed By: #### L IP, LACWB, IOCAL, PT, CDP, CHANDU, PTT, LIPR, CMPX ####[address] [address] Albumin/Globulin mass ratio 0.7 {ratio} Low 1.0-2.5 [facility] Comment on above: Performed By: #### L IP, LACWB, IOCAL, PT, CDP, CHANDU, PTT, LIPR, CMPX ####[address] [address] Alkaline Phos 73 U/L Normal 35-104 [facility] Comment on above: Performed By: #### L IP, LACWB, IOCAL, PT, CDP, CHANDU, PTT, LIPR, CMPX ####[address] [address] ALT enzyme act/vol 71 U/L High 5-33 [facility] Comment on above: Performed By: #### L IP, LACWB, IOCAL, PT, CDP, CHANDU, PTT, LIPR, CMPX ####[address] [address] Anion gap 3 molar conc 9 mmol/L Normal 9-17 [facility] Comment on above: Performed By: #### L IP, LACWB, IOCAL, PT, CDP, CHANDU, PTT, LIPR, CMPX ####[address] [place] [address] AST enzyme act/vol 34 U/L High <32 [facility] Comment on above: Performed By: #### L IP, LACWB, IOCAL, PT, CDP, CHANDU, PTT, LIPR, CMPX ####[address] [place] [address] Bilirubin Ql (U) 0.87 mg/dL Normal 0.3-1.2 [facility] Comment on above: Performed By: #### L IP, LACWB, IOCAL, PT, CDP, CHANDU, PTT, LIPR, CMPX ####[address] [address] Calcium mass conc 7.8 mg/dL Low 8.6-10.4 [facility] Comment on above: Performed By: #### L IP, LACWB, IOCAL, PT, CDP, CHANDU, PTT, LIPR, CMPX ####[place] [address] Chloride molar conc 108 mmol/L High 98-107 [facility] Comment on above: Performed By: #### L IP, LACWB, IOCAL, PT, CDP, CHANDU, PTT, LIPR, CMPX ####[address] [address] CO2 molar conc 22 mmol/L Normal 20-31 [facility] Comment on above: Performed By: #### L IP, LACWB, IOCAL, PT, CDP, CHANDU, PTT, LIPR, CMPX ####[address] [address] Creatinine mass conc 0.77 mg/dL Normal 0.50-0.90 [facility] Comment on above: Performed By: #### L IP, LACWB, IOCAL, PT, CDP, CHANDU, PTT, LIPR, CMPX ####[address] [address] GFR, Amer >60 Normal >60 [facility] Comment on above: Performed By: #### L IP, LACWB, IOCAL, PT, CDP, CHANDU, PTT, LIPR, CMPX ####[address] [address] GFR,non Amer >60 Normal >60 [facility] Comment on above: Performed By: #### L IP, LACWB, IOCAL, PT, CDP, CHANDU, PTT, LIPR, CMPX ####[address] [place] [address] Glucose mass conc 100 mg/dL High 70-99 [facility] Comment on above: Performed By: #### L IP, LACWB, IOCAL, PT, CDP, CHANDU, PTT, LIPR, CMPX ####[address] [place] [address] Potassium molar conc 3.7 mmol/L Normal 3.7-5.3 [facility] Comment on above: Performed By: #### L IP, LACWB, IOCAL, PT, CDP, CHANDU, PTT, LIPR, CMPX ####[address] [place] [address] Protein mass conc 5.7 g/dL Low 6.4-8.3 [facility] Comment on above: Performed By: #### L IP, LACWB, IOCAL, PT, CDP, CHANDU, PTT, LIPR, CMPX ####[address] [place] [address] Sodium molar conc 139 mmol/L Normal 135-144 [facility] Comment on above: Performed By: #### L IP, LACWB, IOCAL, PT, CDP, CHANDU, PTT, LIPR, CMPX ####[address] [place] [address] Urea nitrogen mass conc 14 mg/dL Normal 8-23 [facility] Comment on above: Performed By: #### L IP, LACWB, IOCAL, PT, CDP, CHANDU, PTT, LIPR, CMPX ####[address] [place] [address] BUN/CRE Ratio NOT REPORTED Normal 9-20 [facility] Comment on above: Performed By: #### L IP, LACWB, IOCAL, PT, CDP, CHANDU, PTT, LIPR, CMPX ####[address] [address] Staging: NOT REPORTED Normal [facility] Comment on above: Performed By: #### L IP, LACWB, IOCAL, PT, CDP, CHANDU, PTT, LIPR, CMPX ####[address] [address] Consulton 11-02-2017 HIM IP Note OR Pediatric Care Coordinator Normal [facility] Hgb/Hcton 11-02-2017 Hematocrit Auto Volume Fraction (Bld) 35.4 % Low 36.3-47.1 [facility] Comment on above: Performed By: #### L IP, LACWB, IOCAL, PT, CDP, CHANDU, PTT, LIPR, CMPX ####[address] [address] Hemoglobin mass conc (Bld) 10.6 g/dL Low 11.9-15.1 [facility] Comment on above: Performed By: #### L IP, LACWB, IOCAL, PT, CDP, CHANDU, PTT, LIPR, CMPX ####[address] [address] Hematocrit Auto Volume Fraction (Bld) 34.1 % Low 36.3-47.1 [facility] Comment on above: Performed By: #### L IP, LACWB, IOCAL, PT, CDP, CHANDU, PTT, LIPR, CMPX ####[address] [place] [address] Hemoglobin mass conc (Bld) 10.4 g/dL Low 11.9-15.1 [facility] Comment on above: Performed By: #### L IP, LACWB, IOCAL, PT, CDP, CHANDU, PTT, LIPR, CMPX ####[address] [address] Lactic Acid,Whole Blon 11-02 Lactic Acid,Whole Bl 1.1 mmol/L Normal 0.7-2.1 [facility] Comment on above: Performed By: #### L IP, LACWB, IOCAL, PT, CDP, CHANDU, PTT, LIPR, CMPX ####[address] [place] [address] Lipaseon 11-02-2017 Lipase enzyme act/vol 54 U/L Normal 13-60 [facility] Comment on above: Performed By: #### L IP, LACWB, IOCAL, PT, CDP, CHANDU, PTT, LIPR, CMPX ####[address] [address] Lipid Profileon 11-02-2017 Cholesterol in HDL mass conc 16 mg/dL Low >40 [facility] Comment on above: Result Comment: HDL Guidelines: <40 Undesirable 40-59 Borderline >59 Desirable Performed By: #### L IP, LACWB, IOCAL, PT, CDP, CHANDU, PTT, LIPR, CMPX ####[address] [address] Cholesterol in LDL mass conc 55 mg/dL Normal 0-130 [facility] Comment on above: Result Comment: LDL Guidelines: <100 Desirable 100-129 Near to/above Desirable 130-159 Borderline >159 UndesirableDirect (measured) LDL and calculated LDL are not interchangeable tests. Performed By: #### L IP, LACWB, IOCAL, PT, CDP, CHANDU, PTT, LIPR, CMPX ####[facility] [address] [place] [address] Cholesterol mass conc 96 mg/dL Normal <200 [facility] Comment on above: Result Comment: Chol esterol Guidelines: <200 Desirable 200-240 Borderline >240 Undesirable Performed By: #### L IP, LACWB, IOCAL, PT, CDP, CHANDU, PTT, LIPR, CMPX ####[address] [place] [address] Cholesterol.total/ Cholesterol in HDL mass ratio 6.0 {ratio} High <5 [facility] Comment on above: Performed By: #### L IP, LACWB, IOCAL, PT, CDP, CHANDU, PTT, LIPR, CMPX ####[facility] [address] [place] [address] Triglyceride mass conc 127 mg/dL Normal <150 [facility] Comment on above: Result Comment: Trig lyceride Guidelines: <150 Desirable 150- 199 Borderline 200-499 High >499 Very high Based on AHA Guidelines for fasting triglyceride, November 2011. Performed By: #### L IP, LACWB, IOCAL, PT, CDP, CHANDU, PTT, LIPR, CMPX ####[facility] [address] [place] [address] Cholesterol in VLDL mass conc NOT REPORTED Normal 1-30 [facility] Comment on above: Performed By: #### L IP, LACWB, IOCAL, PT, CDP, CHANDU, PTT, LIPR, CMPX ####[facility] [address] [place] [address] MRSA, DNA, Nasalon 8 MRSA, DNA, Nasal NEGATIVE: MRSA DNA n ot detected by nucleic acid amplification. Normal NMRSAA [facility] Comment on above: Result Comment: Resu lts should be used as an adjunct to nosocomial control efforts to identify patients needing enhanced precautions.The test is not intended to identify patients with staphylococcal infections. Results should not be used to guide or monitor treatment for MRSA infections. Performed By: #### L IP, LACWB, IOCAL, PT, CDP, CHANDU, PTT, LIPR, CMPX ####[facility] [address] [place] [address] Magnesiumon 11-02-2017 Magnesium mass conc 2.2 mg/dL Normal 1.6-2.6 [facility] Comment on above: Performed By: #### L IP, LACWB, IOCAL, PT, CDP, CHANDU, PTT, LIPR, CMPX ####[facility] [place], [place] [id number] PTon 11-02-2017 INR Coag RelTime (PPP) 1.0 {INR} Normal [facility] Comment on above: Result Comment: Ther apeutic Range: Moderate Anticoagulant Intensity: INR = 2.0-3.0 High Anticoagulant Intensity: INR = 2.5-3.5 Performed By: #### L IP, LACWB, IOCAL, PT, CDP, CHANDU, PTT, LIPR, CMPX ####[facility] [address] [place], [place] [id number] Prothrombin time (PT) Coag time (PPP) 10.5 s Normal 9.0-12.0 [facility] Comment on above: Performed By: #### L IP, LACWB, IOCAL, PT, CDP, CHANDU, PTT, LIPR, CMPX ####[facility] [address] [place] [address] Plan of Careon 11-02-2017 HIM IP Note OR Pediatric Care Coordinator Normal [facility] HIM IP Note OR Pediatric Care Coordinator Normal [facility] Progress Noteon 11-02-2017 HIM IP Note OR Pediatric Care Coordinator Normal [facility] HIM IP Note OR Pediatric Care Coordinator Normal [facility] HIM IP Note OR Pediatric Care Coordinator Normal [facility] HIM IP Note OR Pediatric Care Coordinator Normal [facility] HIM IP Note OR Pediatric Care Coordinator Normal [facility] XR ABDOMEN (KUB) (SINGLE AP VIEW)on 11-02-2017 [...] Tyson MDSigned by:Moses Tyson MD11/02/17inal result Normal [facility] Consulton 11-01-2017 HIM IP Note OR Pediatric Care Coordinator Normal [facility] History and Physicalon 11-01 HIM IP Note OR Pediatric Care Coordinator Normal [facility] MRSA, DNA, Nasalon 8 Specimen Description .NASAL SWAB Normal [facility] Comment on above: Performed By: #### L IP, LACWB, IOCAL, PT, CDP, CHANDU, PTT, LIPR, CMPX ####[facility] [address] [place] [address] XR ABDOMEN (KUB) (SINGLE AP VIEW)on 11-01-2017 [...] Alexander, DOSigned by:Olena Alexander DO11/01/18Final result Normal [facility] Vital Signs Date Time Vital Sign Value Performing Clinician Facility 04-16-2023 13:20-0500 Body mass index (BMI) [Ratio] 35.05 kg/m2 Samia Landeros MD Work Phone: [facility] 04-16-2023 13:20-0500 Body temperature 97.81 [degF] Samia Landeros MD Work Phone: [facility] 04-16-2023 13:20-0500 Body weight 91.17 kg Samia Landeros MD Work Phone: [facility] [employer] [facility] 04-16-2023 13:20-0500 Diastolic blood pressure 80 mm[Hg] Samia Landeros MD Work Phone: [facility] [employer] [facility] 04-16-2023 13:20-0500 Heart rate 84 /min Samia Landeros MD Work Phone: [facility] [employer] [facility] 04-16-2023 13:20-0500 Respiratory rate 16 /min Samia Landeros MD Work Phone: [facility] [employer] [facility] 04-16-2023 13:20-0500 Systolic blood pressure 142 mm[Hg] Samia Landeros MD Work Phone: [facility] [employer] [facility] 04-02-2023 11:14-0500 Body height 161.3 cm Samia Landeros MD Work Phone: [facility] [employer] [facility] 04-02-2023 11:14-0500 Body mass index (BMI) [Ratio] 36.44 kg/m2 Samia Landeros MD Work Phone: [facility] [employer] [facility] 04-02-2023 11:14-0500 Body weight 94.8 kg Samia Landeros MD Work Phone: [facility] [employer] [facility] 04-02-2023 11:14-0500 Diastolic blood pressure 80 mm[Hg] Samia Landeros MD Work Phone: [facility] [employer] [facility] 04-02-2023 11:14-0500 Heart rate 80 /min Samia Landeros MD Work Phone: [facility] [employer] [facility] 04-02-2023 11:14-0500 Respiratory rate 16 /min Samia Landeros MD Work Phone: [facility] [employer] [facility] 04-02-2023 11:14-0500 Systolic blood pressure 160 mm[Hg] Samia Landeros MD Work Phone: [facility] [employer] [facility] 03-12-2023 14:30-0500 Body height 160.02 cm Boy Phillips Other [facility] 03-12-2023 14:30-0500 Body mass index (BMI) [Ratio] 36.89 kg/m2 Tondra Mapus Other [employer] Other 03-12-2023 14:30-0500 Body weight 94.48 kg Tondra Mapus Other [facility] 03-12-2023 14:30-0500 Diastolic blood pressure 82 mm[Hg] Tondra Mapus Other [facility] 03-12-2023 14:30-0500 Respiratory rate 18 /min Tondra Mapus Other [employer] Other 03-12-2023 14:30-0500 SaO2% (BldA) [Mass fraction] 94 % Tondra Mapus Other [employer] Other 03-12-2023 14:30-0500 Systolic blood pressure 155 mm[Hg] Tondra Mapus Other [facility] 11-27-2022 14:30-0400 Body height 160.02 cm Tondra Mapus Other [employer] Other 11-27-2022 14:30-0400 Body mass index (BMI) [Ratio] 36.26 kg/m2 Tondra Mapus Other [employer] Other 11-27-2022 14:30-0400 Body weight 92.85 kg Tondra Mapus Other [employer] Other 11-27-2022 14:30-0400 Diastolic blood pressure 75 mm[Hg] Tondra Mapus Other [employer] Other 11-27-2022 14:30-0400 Respiratory rate 18 /min Tondra Mapus Other [employer] Other 11-27-2022 14:30-0400 SaO2% (BldA) [Mass fraction] 95 % Tondra Mapus Other [employer] Other 11-27-2022 14:30-0400 Systolic blood pressure 142 mm[Hg] Tondra Mapus Other [employer] Other 08-28-2022 13:30-0400 Body height 160.02 cm Tondra Mapus Other [employer] Other 08-28-2022 13:30-0400 Body mass index (BMI) [Ratio] 34.68 kg/m2 Tondra Mapus Other [employer] Other 08-28-2022 13:30-0400 Body weight 88.81 kg Tondra Mapus Other [employer] Other 08-28-2022 13:30-0400 Diastolic blood pressure 86 mm[Hg] Tondra Mapus Other [employer] Other 08-28-2022 13:30-0400 Respiratory rate 18 /min Tondra Mapus Other [employer] Other 08-28-2022 13:30-0400 SaO2% (BldA) [Mass fraction] 96 % Tondra Mapus Other [employer] Other 08-28-2022 13:30-0400 Systolic blood pressure 157 mm[Hg] Tondra Mapus Other [employer] Other 05-24-2022 15:15-0400 Body height 160.02 cm Tondra Mapus Other [employer] Other 05-24-2022 15:15-0400 Body mass index (BMI) [Ratio] 33.65 kg/m2 Tondra Mapus Other [employer] Other 05-24-2022 15:15-0400 Body weight 86.18 kg Tondra Mapus Other [employer] Other 05-24-2022 15:15-0400 Diastolic blood pressure 78 mm[Hg] Tondra Mapus Other [employer] Other 05-24-2022 15:15-0400 Respiratory rate 18 /min Tondra Mapus Other [employer] Other 05-24-2022 15:15-0400 SaO2% (BldA) [Mass fraction] 98 % Tondra Mapus Other [employer] Other 05-24-2022 15:15-0400 Systolic blood pressure 164 mm[Hg] Tondra Mapus Other [employer] Other 04-26-2022 15:45-0400 Body height 160.02 cm Tondra Mapus Other [employer] Other 04-26-2022 15:45-0400 Body mass index (BMI) [Ratio] 33.35 kg/m2 Tondra Mapus Other [employer] Other 04-26-2022 15:45-0400 Body weight 85.41 kg Tondra Mapus Other [employer] Other 04-26-2022 15:45-0400 Diastolic blood pressure 84 mm[Hg] Tondra Mapus Other [employer] Other 04-26-2022 15:45-0400 Respiratory rate 18 /min Tondra Mapus Other [employer] Other 04-26-2022 15:45-0400 SaO2% (BldA) [Mass fraction] 96 % Tondra Mapus Other [employer] Other 04-26-2022 15:45-0400 Systolic blood pressure 154 mm[Hg] Tondra Mapus Other [employer] Other 02-20-2022 15:45-0500 Body height 160.02 cm Tondra Mapus Other [employer] Other 02-20-2022 15:45-0500 Body mass index (BMI) [Ratio] 32.47 kg/m2 Tondra Mapus Other [employer] Other 02-20-2022 15:45-0500 Body weight 83.14 kg Tondra Mapus Other [employer] Other 02-20-2022 15:45-0500 Diastolic blood pressure 91 mm[Hg] Tondra Mapus Other [employer] Other 02-20-2022 15:45-0500 Respiratory rate 18 /min Tondra Mapus Other [employer] Other 02-20-2022 15:45-0500 SaO2% (BldA) [Mass fraction] 96 % Tondra Mapus Other [employer] Other 02-20-2022 15:45-0500 Systolic blood pressure 160 mm[Hg] Tondra Mapus Other [employer] Other 01-16-2022 09:00-0500 Body height 160.02 cm Tondra Mapus Other [employer] Other 01-16-2022 09:00-0500 Body mass index (BMI) [Ratio] 31.92 kg/m2 Tondra Mapus Other [employer] Other 01-16-2022 09:00-0500 Body weight 81.74 kg Tondra Mapus Other [employer] Other 01-04-2022 12:00-0500 Body height 160.02 cm Tondra Mapus Other [employer] Other 01-04-2022 12:00-0500 Body mass index (BMI) [Ratio] 31.28 kg/m2 Tondra Mapus Other [employer] Other 01-04-2022 12:00-0500 Body weight 80.11 kg Tondra Mapus Other [employer] Other 01-04-2022 12:00-0500 Diastolic blood pressure 89 mm[Hg] Tondra Mapus Other [employer] Other 01-04-2022 12:00-0500 Respiratory rate 18 /min Tondra Mapus Other [employer] Other 01-04-2022 12:00-0500 SaO2% (BldA) [Mass fraction] 98 % Tondra Mapus Other [employer] Other 01-04-2022 12:00-0500 Systolic blood pressure 154 mm[Hg] Tondra Mapus Other [employer] Other Encounters Encounter Date Encounter Type Care Provider Facility Start: 05-07-2023 Telephone encounter Samia Payton MD Work Phone: [facility] Start: 04-27-2023 Telephone encounter Yohana Keller LP [facility] Start: 04-18-2023 Orders Only Samia carrasco MD Work Phone: [facility] Start: 04-16-2023 End: 04-16-2023 Office outpatient visit 15 minutes Samia Landeros MD Work Phone: [facility] Comment on above: Other acute sinusiti s, recurrence not specified (Primary Dx) Start: 04-02-2023 End: 04-02-2023 ambulatory SAMIA LANDEROS [facility] Start: 04-02-2023 End: 04-02-2023 Office outpatient visit 15 minutes Samia Landeros MD Work Phone: [facility] Comment on above: Secondary diabetes m ellitus ([facility]) (Primary Dx); Necrotizing pancreatitis; Mixed hyperlipidemia; Essential hypertension, benign Start: 03-26-2023 Refill Samia carrasco MD Work Phone: [facility] Start: 03-23-2023 End: 03-23-2023 ambulatory Tondra Mapus Other [employer] Other Start: 03-23-2023 Telephone encounter Boy Phillips [facility] Start: 03-12-2023 End: 03-12-2023 Discharged Recurring MD Samia Landeros Work Phone: [facility] Work Phone: Start: 03-12-2023 (DM) Diabetes Tondra Mapus [facility] Start: 03-12-2023 End: 03-13-2023 ambulatory MD Samia Landeros Work Phone: [employer] Other Start: 03-12-2023 End: 03-12-2023 Patient encounter procedure MD Samia Landeros Work Phone: [facility] Start: 02-15-2023 Refill Samia carrasco MD Work Phone: [facility] Start: 01-01-2023 End: 01-01-2023 ambulatory Tondra Mapus Other [employer] Other Start: 01-01-2023 Telephone encounter Tondra Mapus [facility] Start: 11-27-2022 (DM) Diabetes Tondra Mapus [facility] Start: 11-27-2022 End: 11-27-2022 ambulatory Tondra Mapus Other [employer] Other Start: 08-28-2022 (DM) Diabetes Tondra Mapus [facility] Start: 08-28-2022 End: 08-28-2022 ambulatory Tondra Mapus Other [employer] Other Start: 05-24-2022 (DM) Diabetes Tondra Mapus [facility] Start: 05-24-2022 End: 05-24-2022 ambulatory Tondra Mapus Other [employer] Other Start: 05-01-2022 End: 05-02-[address] SAMIA LANDEROS Facility: Start: 04-26-2022 (DM) Diabetes Tondra Mapus [facility] Start: 04-26-2022 End: 03-15-2023 ambulatory Tondra Mapus Other [employer] Other Start: 03-09-2022 End: 03-09-2022 ambulatory Tondra Mapus Other [employer] Other Start: 03-09-2022 Telephone encounter Tondra Mapus Luis Carlos [facility] Start: 03-06-2022 End: 03-06-2022 ambulatory Tondra Mapus Other [employer] Other Start: 03-06-2022 Telephone encounter Tondra Mapus Luis Carlos [facility] Start: 02-20-2022 (DM) Diabetes [facility] Jacqueline [facility] Start: 02-20-2022 End: 02-20-2022 ambulatory Tondra Mapus Other [employer] Other Start: 01-20-2022 End: 01-20-2022 ambulatory Tondra Mapus Other [employer] Other Start: 01-20-2022 Telephone encounter Tondra Mapus Luis Carlos [facility] Start: 01-16-2022 End: 01-16-2022 ambulatory Tondra Mapus Other [employer] Other Start: 01-16-2022 Nursing evaluation o f patient and report Tondra Saturninous [facility] Start: 01-16-2022 Telephone encounter Tondra Mapus Luis Carlos [facility] Start: 01-13-2022 End: 01-13-2022 ambulatory Pk Grady MD Work Phone: General Surgery Comment on above: Secondary diabetes m homero (HCC) (Primary Dx) Start: 01-13-2022 End: 01-13-2022 Telemedicine consultation with patient Pk Grady MD Work Phone: [facility] Start: 01-08-2022 End: 01-08-2022 ambulatory Boy Phillips Other [employer] Other Start: 01-08-2022 Telephone encounter Boy Phillips [facility] Start: 01-06-2022 End: 01-07-[address] SAMIA LANDEROS Facility:[facility] Start: 01-04-2022 End: 01-04-2022 ambulatory Boy Phillips Other [employer] Other Start: 01-04-2022 FQHC visit new patient Boy Phillips [facility] Start: 11-18-[address] SAMIA LANDEROS [facility] ity:[facility] Start: 11-14-2021 End: 11-14-2021 ambulatory Juanita Chance Other [employer] Other Start: 11-14-2021 Telephone encounter Juanita Fletcher [facility] Start: 11-08-2021 End: 11-09-[address] SAMIA LANDEROS Facility:[facility] Start: 10-24-2021 End: 10-25-[address] SAMIA LANDEROS Facility:[facility] Start: 11-01-2017 End: 11-04-2017 Evaluation and management of inpatient STEPH AVASTHI [facility] Procedures Date Procedure Procedure Detail Performing Clinician [...] AVASTHI Start: 11-01-2017 PATIENT STATUS (DIRECT) STEPH SALDANA Plan of Treatment Date Care Activity Detail Author Start: 08-19-2026 DTaP,Tdap and Td Vaccines (2 - Td or Tdap) DTaP,Tdap and Td Vaccines (2 - Td or Tdap) [facility] Start: 08-19-2026 Urine microalbumin profile DTAP,TDAP,TD (2 - Td or Tdap) [facility] Start: 04-15-2024 Adult BMI Screening Adult BMI Screen ing [facility] Start: 04-02-2024 Adult BMI Screening Adult BMI Screen ing [facility] Start: 04-02-2024 Depression Screening Depression Scre ening [facility] Start: 04-02-2024 Fall Risk Screening Fall Risk Screen ing [facility] Start: 04-02-2024 Tobacco Screening Tobacco Screening [facility] Start: 12-15-2023 Glaucoma screening Diabetic Op hthalmology Exam [facility] Start: 10-16-2023 End: 10-16-2023 Patient encounter procedure 10/16/2023 3:00 PM EDT Office Visit [facility] [address] [place] [address] Samia Landeros MD [address] [place] [address] [facility] Start: 10-13-2023 Adult BMI Screening Adult BMI Screen ing [facility] Start: 10-13-2023 Medicare Annual Well ness Visit Medicare Annual Wellness Visit [facility] Start: 10-13-2023 Tobacco Screening Tobacco Screening [facility] Start: 10-11-2023 Depression Screening Depression Scre ening [facility] Start: 10-11-2023 Fall Risk Screening Fall Risk Screen ing [facility] Start: 09-05-2023 Urine screening for protein Urine Microalbumin [facility] Start: 04-23-2023 End: 04-23-2023 Clinical Support 04/23/2023 3:00 PM EDT Clinical Support [facility] [address] [place] [address] [facility] Start: 04-13-2023 Diabetic foot examination Diabetic Foot Exam [facility] Start: 04-10-2023 End: 04-10-2023 Patient encounter procedure 04/10/2023 3:30 PM EST Office Visit [facility] [address] [place] [id number] Samia Landeros MD [address] [place], [place] [id number] [facility] Start: 04-02-2023 End: 04-02-2023 Patient encounter procedure 04/02/2023 11:15 AM EST Office Visit [facility] [address] [place] [address] Samia Landeros MD [address] [place], [place] [id number] [facility] Start: 11-08-2022 Mammography MAMMOGRAM [facility] Start: 11-08-2022 Screening for malign ant neoplasm of breast Mammogram [facility] Start: 10-13-2022 Influenza vaccination Influenza Vacc ine [facility] Start: 05-08-2022 Hemoglobin A1c/Hemoglobin.total in Blood HBA1C [facility] Start: 10-13-2021 Influenza vaccination INFLUENZA (#1) [facility] Start: 08-31-2021 Colonoscopy COLONOSCOPY [facility] Start: 08-31-2021 COLORECTAL CANCER SCREENING COLORECTAL CANCER SCREENING [facility] Start: 02-12-2021 DEPRESSION ASSESSMENT DEPRESSION ASS ESSMENT [facility] Start: 2007 Administration of varicella zoster vaccine Zoster (Shingles) Vaccine (1 of 2) [facility] Start: 2007 SHINGRIX VACCINE (1 of 2) SHINGRIX VACCINE (1 of 2) [facility] Start: 2002 COLOGUARD (FIT-DNA) COLOGUARD (FIT-D NA) [facility] Start: [address] COLONOGRAPHY [facility] Start: 2002 FECAL OCCULT BLOOD FECAL OCCULT BLOO D [facility] Start: 2002 SIGMOIDOSCOPY SIGMOIDOSCOPY [facility] Start: 1987 HPV TESTING HPV TESTING [facility] Start: 1978 PAP TESTING PAP TESTING [facility] Start: 1975 Adult BMI Follow Up Plan Adult BMI Follow Up Plan [facility] Start: 1975 ANNUAL PCP TEAM DOOR TO DOOR 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 [place] DISEASE VISIT ANNUAL PCP TEAM CHRONIC DISEASE VISIT [facility] Start: 1975 BP CONTROLLED (<130/80) BP CONTROLLE D (<130/80) [facility] Start: 1975 Hepatitis B surface antibody level LDL CHOLESTEROL [facility] Start: 1975 HEPATITIS C SCREENING HEPATITIS C SC REENING [facility] Start: 1975 HIV SCREENING HIV SCREENING [facility] Start: 1967 3 comp foot exam completed DIABETIC FOOT EXAM [facility] Start: 1967 Hepatitis B screening URINE ALBUMIN:CREATININE RATIO [facility] Start: 1967 Hepatitis C antibody , confirmatory test DILATED RETINAL EXAM [facility] Start: 1963 PNEUMOCOCCAL (1 - PCV) PNEUMOCOCCAL (1 - PCV) [facility] Start: 1957 COVID-19 VACCINE (#1) COVID-19 VACCI NE (#1) [facility] End: 04-02-2024 Basic metabolic 2000 panel - Serum or Plasma Basic Metabolic Panel Lab Routine Essential hypertension, benign 1 Occurrences starting 04/02/2023 until 04/02/2024 markedup Work Phone: Comment on above: 1 Occurrences starti ng 04/02/2023 until 04/02/2024 Immunizations Immunization Date Immunization Notes Care Provider Jade casas 01-18-2023 Pneumococcal Conjuga te 20-valent Samia Landeros MD Work Phone: [facility] 12-14-2019 influenza, injectabl e, quadrivalent, preservative free Samia Landeros MD Work Phone: [facility] 12-14-2019 influenza virus vacc ine, unspecified formulation Samia Landeros MD Work Phone: [facility] 11-03-2018 Influenza, injectabl e, Madin [place] Canine Kidney, preservative free, quadrivalent Samia Landeros MD Work Phone: [facility] 11-03-2018 influenza, injectabl e, quadrivalent, preservative free Samia Landeros MD Work Phone: [facility] 10-01-2018 meningococcal polysaccharide (groups A, C, Y and W-135) diphtheria toxoid conjugate vaccine (MCV4P) Samia Landeros MD Work Phone: [facility] 10-01-2018 pneumococcal polysaccharide vaccine, 23 valent Samia Landeros MD Work Phone: [facility] 07-16-2018 haemophilus influenz ae type b vaccine, conjugate unspecified formulation Samia Landeros MD Work Phone: [facility] 07-16-2018 meningococcal oligosaccharide (groups A, C, Y and W-135) diphtheria toxoid conjugate vaccine (MCV4O) Samia Landeros MD Work Phone: [facility] 07-16-2018 pneumococcal polysaccharide vaccine, 23 valent Samia Landeros MD Work Phone: [facility] 12-04-2017 influenza, injectabl e, quadrivalent, contains preservative Pk Grady MD Work Phone: [facility] 08-19-2016 tetanus toxoid, redu danny diphtheria toxoid, and acellular pertussis vaccine, adsorbed Pk Grady MD Work Phone: [facility] Work Phone: Payers Date Payer Category Payer Medicaid [id number] 2020 Medicare ANTHEM MEDICARE ANTHEM MEDICARE ADVANTAGE [id number] 2020-Present [phone] [address] [place] [address] [id number] 2020 Unknown ANTHEM BLUE CROS S AND BLUE SHIELD ANTHEM [facility] [id number] 2020-Present [phone] [address] [place] [address] O [id number] 2014 Unknown [id number] 1959 [facility] [id number] 1959 Medicaid [id number] 1959 Self-pay 1957 Unknown [id number] 1957 Unknown [id number] 93 1957 Unknown [id number] 93 1957 Unknown [id number] 93 1957 Unknown [id number] 93 1957 Unknown [id number] 93 1957 Unknown [id number] Unknown [id number] 31 Social History Date Type Detail Facility Unknown if ever smoked [employer] Other Start: 03-23-2020 End: 04-02-2023 [facility] Start: 07-01-2018 Tobacco smoking status WVIS Ex-smoker [facility] End: 02-12-1998 History of tobacco use Current smoker [facility] End: 02-12-1998 History of tobacco use Cigarette Smoker [facility] Start: 07-01-2018 End: 03-23-2020 Cigarettes smoked current (pack per day) - Reported 0.1 [facility] Start: 07-01-2018 End: 04-12-2022 Tobacco use and exposure Smokeless tobacco non-user [facility] Start: 01-13-2022 End: 04-02-2023 Alcohol intake Ex-drinker (finding) [facility] Start: 1955 Sex Assigned At Not on file [facility] Start: 04-12-2022 Tobacco smoking status NHIS Never smoked tobacco [facility] Do you belong to any clubs or organizations such as episcopal groups, unions, fraternal or athletic groups, or school groups? Yes [facility] Are you now , , , , never or living with a partner? Never [facility] How often to you hav e a drink containing alcohol? Never [facility] How many standard dr inks containing alcohol do you have on a typical day? Patient declined [facility] Do you feel stress - tense, restless, nervous, or anxious, or unable to sleep at night because your mind is troubled all the time - these days [OSQ] Not at all [facility] [employer] Start: 03-23-2020 Education [facility] Start: 11-22-2017 Alcohol Comment occasional [facility] Start: 1955 Sex Assigned At Female [facility] Medical Equipment Procedure Code Equipment Code Equipment Origin al Text Equipment Identifier Dates [id number], [id number], [id number] Start: 11-18-2017 Comment on above: Use as instructed Clinical Notes 11-27-2017 to 05-07-2023 Telephone Encounter - Samia Landeros MD - 05/07/2023 10:38 AM EDTTelephone Encounter - Cynthia Taylor CMA - 05/07/2023 10:38 AM CANDITSamia Landeros MD - 04/16/2023 1:15 PM EST Note Date & Type Note Facility 05-07-2023 Miscellaneous Notes Outside labs are good except for glucose at 203- please f/u Tondra regarding sugar Patient notified of results and instructions. documented in this encounter [facility] 05-07-2023 Telephone encounter Note Outside labs are good except for glucose at 203- please f/u Tondra regarding sugar [facility] 05-07-2023 Telephone encounter Note Patient notified of results and instructions. [facility] 04-27-2023 Miscellaneous Notes Needs new Rx for Amlodipine 5mg documented in this encounter [facility] 04-27-2023 Telephone encounter Note Needs new Rx for Amlodipine 5mg [facility] 04-27-2023 Miscellaneous Notes Anneliese's BP is low at night, 98/60 range, do you want to make any changes? We can decrease the norvasc to 5mg- do we need a new rx? Patient notified of message and verbalizes understanding documented in this encounter [facility] 04-27-2023 Telephone encounter Note Anneliese's BP is low at night, 98/60 range, do you want to make any changes? [facility] 04-27-2023 Telephone encounter Note We can decrease the norvasc to 5mg- do we need a new rx? [facility] 04-27-2023 Telephone encounter Note Patient notified of message and verbalizes understanding [facility] 04-16-2023 History of Present illness Narrative Images from the original note were not included. [id number] [place] [address] SUBJECTIVE: Patient ID: Nichole Sandhu is a [...] 300mg bid x10d documented in this encounter [id number] 04-02-2023 History of Present illness Narrative Images from the original note were not included. [id number] [place] [address] SUBJECTIVE: Patient ID: Nichole Sandhu is a [...] in 3 weeks documented in this encounter [facility] 03-26-2023 Miscellaneous Notes Rocky POSEY requesting refill of Colace documented in this encounter [facility] 03-26-2023 Telephone encounter Note Rocky POSEY requesting refill of Colace [facility] 03-23-2023 Evaluation note Encounter Date Diagnosis Assessment Notes Mar, Secondary diabetes (ICD-10 - E13.9) [employer] Other 01-29-2024 Evaluation note* Encounter Date Diagnosis [...] or diabetes medication issues. 6. Prescriptions: [facility] [place] and Humalog sent 03/12/23; DME: [facility] g7 sent. 7. Prescriptions will not [...] to make it easier material was published [employer] Other [id number] Miscellaneous Notes* Telephone Encounter - Yohana Keller LPN - 02/15/2023 9:52 AM EST Patient via MyChart [facility] Telephone encounter Note* Telephone Encounter - Yohana Keller LPN - 02/15/2023 9:52 AM EST Patient via [employer] requesting refill of [facility]aine [facility] [id number] Miscellaneous Notes* Telephone Encounter - Yohana Keller LPN - 02/15/2023 9:51 AM EST Patient via [employer] requesting refill of [facility]clizine to [facility] Telephone encounter Note* Telephone Encounter - Yohana Keller LPN - 02/15/2023 9:51 AM EST Patient via [employer] requesting refill of [facility]clizine to [facility] [id number] Evaluation note* Encounter Date Diagnosis Assessment Notes Treatment Notes Treatment Clinical Notes Dec, Secondary diabetes (ICD-10 - E13.9) Dec, Type 2 diabetes mellitus (ICD-10 - E11.9) [employer] Other 10-16-2023 Evaluation note* Encounter Date Diagnosis Assessment Notes Treatment Notes Treatment Clinical Notes Nov, Secondary diabetes (ICD-10 - E13.9) Diabetes and foot care material was published, Diabetes and exercise material was published 1. Controlled, secondary diabetes with A1c of 6.7% 2. Blood glucose levels above target. [employer]ine g6 cgm download 11/14/22-11/27/22: Avg glucose 187. [...] 09/03 ldl 63 at target/trig 216-on statin Nov, BMI 36.0-36.9,adult (ICD-10 - Z68.36) Discussed weight management referral, pt declines. Nov, Other 09/03 gfr >60 ; ma wnl [employer] Other 07-17-2023 Evaluation note* Encounter Date Diagnosis [...] the nutrition facts label material was published [employer] Other 04-12-2023 Evaluation note* Encounter Date Diagnosis [...] Prescriptions: Refill request for Humalog sent to [facility] in [place] 05/24/22 7. Prescriptions will not be filled [...] the nutrition facts label material was published [employer] Other 03-15-2023 Evaluation note* Encounter Date Diagnosis [...] hyperglycemia, or diabetes medication issues. 6. Prescriptions: Toujeo sent to pharmacy. Pt was given touBase [place] x2 sample pens today. 7. Prescriptions will [...] statin Apr, BMI 33.0-33.9,adult (ICD-10 - Z68.33) [employer] Other 01-09-2023 Evaluation note* Encounter Date Diagnosis Assessment Notes Treatment Notes Treatment Clinical Notes Feb, Secondary diabetes (ICD-10 - E13.9) 1. Uncontrolled, secondary diabetes with A1c of 10.0% 2. Blood glucose levels improving, remain above target. dexSunlot g6 cgm download 02/07/22-02/20/22: Avg glucose 233. [...] E78.5) 01/03 ldl 62 at target-on statin 09 Sumanth, 2023 BMI 32.0-32.9,adult (ICD-10 - Z68.32) [employer] Other 12-05-2022 Evaluation note* Encounter Date Diagnosis [...] pt requests Dexcom prescription be sent to [facility] ([facility] All questions and concerns addressed. Encouraged to follow up for next appointment. 45 minutes was spent on education by Rajni GONZALES, RN. Reviewed cgm download 01/04/22- 2: Avg glucose 252. >250-48.7%, >180-88.6%, 70-180-11.4%, <70-0%, <54-0%. CV 22.8%. SD 58. See above recommendations. [employer] INTERNAL SALES ENGINEER, BUSINESS OBJECTS ARCHITECT-C, BC-ADM [facility] [employer] Other 12-02-2022 NoteHNO ID: [id number] Author: Pk Grady MD Service: ? Author [...] time. Continue to follow up with her kitchen steward. - Follow up with me PRN CC: [...] which included preparing to see the patient, [id number] patient care, completing clinical documentation, obtaining and/or reviewing separately obtained history, performing a medically appropriate examination, counseling and educating the patient/family/caregiver, ordering medications, tests, or procedures, and communicating results to the patient/family/caregiver. 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 No concerns at this time regarding the remainder of her pancreas. No further surgery indicated at this time. Continue to follow up with her kitchen steward. - Follow up with me PRN CC: [...] which included preparing to see the patient, [id number] patient care, completing clinical documentation, obtaining and/or reviewing separately obtained history, performing a medically appropriate examination, counseling and educating the pat ient/family/caregiver, ordering medications, tests, or procedures, and communicating results to thepatient/family/caregiver. Anton Grady MD HPB surgery Pager: [phone] documented in this encounterOhio[facility] Evaluation note* Encounter Date Diagnosis Assessment Notes [...] issues. 6. Prescriptions: Sent toujoe/humalog/[facility] needles to [facility]. Sent dexcom g6 cgm transmitter/cgm to [facility]. 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 [employer] Other 10-16-2018 History of Past illness Narrative* Problem Noted Date Resolved Date Fever 11/27/2017 08/25/2020 Obesity, Class II, BMI 35-39.9 11/15/2017 0 09/24/2019 Delirium 11/04/2017 08/25/2020 Last Assessment & Plan: PLAN: See plan for encephalopathy documented as of this encounter (statuses as of 01/13/2022) [facility] noteNo InformationNortLifecare Hospital of [facility] FaceAlert[employer] Other Evaluation note* Diagnosis Secondary diabetes mellitus (HCC)- Primary Secondary diabetes mellitus without mention of complication, not stated as uncontrolled, or unspecified documented in this encounter [facility] noteNo assessment information availableSycamore Medical Center Work Phone: Evaluation note* Diagnosis Secondary diabetes mellitus (CMS-HCC)- Primary Secondary diabetes mellitus without mention of complication, not stated as uncontrolled, or unspecified Necrotizing pancreatitis Acute pancreatitis Mixed hyperlipidemia Essential hypertension, benign documented in this encounter [facility] SystemEvaluation note* Diagnosis Other acute sinusitis, recurrence not specified- Primary documented in this encounter [facility] SystemHistory general Narrative - Reported* Type Description Date Medical History Secondary Diabetes Mellitus Medical History Necrotizing pancreatitis Medical History Pancreas tail injury Surgical History section Surgical History Hysterectomy Surgical History Kidney stone surgery Surgical History Pancreas resection Surgical History Pancreas-partial removal Surgical History Splenectomy Hospitalization History see above [employer] Other InstructionsNot on filedocumented in this encounter Pro[employer] [place] Translate SystemInstructionsNot on filedocumented in this encounter [facility] [place] Translate SystemInstructions* Attachments The following attachments cannot be sent through Care Everywhere. * Diabetes and diet (Lithuanian) documented in this encounterProSeeVolution SystemInstructions* Attachments The following attachments cannot be sent through Care Everywhere. * Sinusitis in adults (Lithuanian) documented in this encounterProJ.W. Ruby Memorial HospitalBuyBox SystemInstructionsNot on file documented in this encounterProSeeVolution SystemInstructionsNot on file documented in this encounterProSeeVolution SystemReason for visit Narrative Referral Dr. Landeros, secondary DM new pt apt with [employer] INTERNAL SALES ENGINEER, BUSINESS OBJECTS ARCHITECT-C, BC-ADM [employer] Other Summary Purpose Family History Relationship Condition Age at Onset Recorded Date/T daron brother Hypertension Unknown daughter Hypertension Unknown father Hypertension Unknown Unknown Diabetes mellitus Unknown History of stroke Unknown Not Specified Hypertension Unknown sister Diabetes mellitus Unknown Hypertension Unknown Advance Directives Documents on File Type Date Recorded Patient Canvas Cutter Expl anation Advance Directive(s) 11/09/2017 4:21 PM SI GNED Advance Directive Response Recorded Date/ Time Advance Directives No December 1:07pm Chief Complaint and Reason for Visit Chief Complaint Dm 3 Month F/U DM Additional Source Comments INFORMATION SOURCE (unrecogn ized section and content) DATE CREATED AUTHOR 12/08/2017 [facility] DATE CREATED AUTHOR AUTHOR'S ORGANIZ ATION 11/24/2018 [facility] DATE CREATED AUTHOR AUTHOR'S ORGANIZ ATION 09/02/2020 [facility] DATE CREATED AUTHOR AUTHOR'S ORGANIZ ATION 01/13/2022 [facility] DATE CREATED AUTHOR AUTHOR'S ORGANIZ ATION 05/07/2022 [facility] [place] [facility] DATE CREATED AUTHOR AUTHOR'S ORGANIZ ATION 04/03/2023 [facility] DATE CREATED AUTHOR AUTHOR'S [...] or prosecute any alcohol or drug abuse patient.[facility] Care Teams (unrecognized sec tion and content) Securities Counselor Relationship Specialty Start Date End Date Samia Payton [address], [place] [id number] PCP - General Family Medicine 11/23/17 Securities Counselor Relationship Specialty Start Date End Date Samia Landeros MD [address], [place] [id number] PCP - General Family Medicine 11/22/17 Securities Counselor Relationship Specialty Start Date End Date Samia Landeros MD [address] [place] [address] PCP - General Family Medicine 11/22/17 Team [...] March 12, 2023 End: March 12, 2023 Securities Counselor Relationship Specialty Start Date End Date Samia Landeros MD [address] [place] [address] PCP - General Family Medicine 11/22/17 Securities Counselor Relationship Specialty Start Date End Date Samia Landeros MD [address] [place] [address] PCP - General Family Medicine 11/22/17 Securities Counselor Relationship Specialty Start Date End Date Samia Landeros MD [address] [place] [address] PCP - General Family Medicine 11/22/17 Securities Counselor Relationship Specialty Start Date End Date Samia Landeros MD [address] [place] [address] PCP - General Family Medicine 11/22/17 Securities Counselor Relationship Specialty Start Date End Date Samia Landeros MD [address] [place] [address] PCP - General Family Medicine 11/22/17 Goals (unrecognized section and content) Goals [...] BE BASED ON THE PRIMARY CLINICAL RECORDS. [facility] [employer] [facility]. provides no warranty or guarantee of the accuracy or completeness of information in this document.
[2023-06-19 07:56] LABS: Creatinine Urine Random 201.97 mg/dL (20.00-300.00); Microalbum Creatinine Ratio Ur 7.9 mg/g (0.0-29.9); Microalbumin Urine Random 1.6 mg/dL (<=30.0)
[2023-06-19 08:07] LABS: Alanine Aminotransferase 46 U/L (14-59); Albumin Globulin Ratio 0.9; Albumin Level 3.5 g/dL (3.4-5.0); Alkaline Phosphatase 75 U/L (46-116); Anion Gap 12.3; Aspartate Amino Transferase 26 U/L (15-37); BUN Creatinine Ratio 16.9; Bilirubin Total 0.4 mg/dL (0.2-1.0); Calcium 9.3 mg/dL (8.5-10.1); Carbon Dioxide 31.5 mmol/L (21.0-32.0); Chloride 103 mmol/L (98-107); Chol HDL Ratio 4.1; Cholesterol 141 mg/dL (<=200); Estimated GFR (African America >60 (>=60); Estimated GFR (Non-African Ame >60 (>=60); Globulin 4.1 g/dL; Glucose 176 mg/dL (74-106); HDL Cholesterol 34 mg/dL (40-60); Potassium 3.8 mmol/L (3.5-5.1); Sodium 143 mmol/L (136-145); Total Protein 7.6 g/dL (6.4-8.2); Triglycerides 249 mg/dL (<=150); VLDL CHOLESTEROL 49.8 mg/dL
[2023-06-20 12:10] LABS: C-Peptide, Serum 3.2 ng/mL (1.1-4.4)
== END 2023-06-19 06:58 | disposition home or self-care (01) ==
LOC: LAB 06:59
PROVIDERS: PCP Family Medicine
DX: E11.65 Type 2 diabetes mellitus with hyperglycemia (principal); Z79.4 Long term (current) use of insulin; E78.5 Hyperlipidemia, unspecified
CPT/HCPCS: 36415; 80053; 80061; 82043; 82570; 84681

== ENCOUNTER 2023-10-22 07:56 | Outpatient (OUT) | payer MEDICARE, SELFPAY ==
[2023-10-22 08:17] LABS: Basophils Absolute Auto 0.1 10^3/uL (0.0-0.1); Basophils Percent Auto 0.7 % (0.2-2.0); Eosinophils Absolute Auto 0.8 10^3/uL (0.0-0.7); Hematocrit 40.2 % (36.0-48.0); Hemoglobin 13.3 g/dL (12.0-16.0); Immature Granulocytes Abs Auto 0.12 10^3/uL (0.00-0.03); Immature Granulocytes Pct Auto 0.8 % (0.0-0.5); Lymphocytes Absolute Auto 4.1 10^3/uL (1.2-3.8); Lymphocytes Percent Auto 26.7 % (20.5-60.0); Mean Corpuscular HGB Conc 33.1 g/dL (29.9-35.2); Mean Corpuscular Hemoglobin 29.4 pg (26.7-34.0); Mean Corpuscular Volume 88.7 fL (81.0-99.0); Mean Platelet Volume 11.4 fL (9.5-13.5); Monocytes Absolute Auto 1.3 10^3/uL (0.3-0.8); Monocytes Percent Auto 8.4 % (1.7-12.0); Neutrophils Absolute Auto 8.9 10^3/uL (1.4-6.5); Neutrophils Percent Auto 58.4 % (43.0-75.0); Platelet Count 327 10^3/uL (150-450); Red Blood Count 4.53 10^6/uL (4.20-5.40); Red Cell Distribution Width 13.9 % (11.0-15.0); White Blood Count 15.3 10^3/uL (4.0-11.0)
--- OUTSIDE RECORDS SUMMARY | 2023-10-22 08:18 | XMS_ITS | CCD ---
Author Organization [facility] Care Team Providers Care Librarian Special Library Name Role Phone AVASTHI, STEPH Unavailable Unavailable AVASTHI, STEPH Unavailable Unavailable JIMMIE BREWSTER Unavailable Unavailable LIBIA SHIPMAN Unavailable Unavailable TRACI CORNELIUS Unavailable Unavailable AHMADCHRISTOPHER Unavailable Unavailable Mapus, Tondra Unavailable Samia Payton Primary Care Provider SAMIA PAYTON Primary Care Unavaila PK Engle Attending Unavailable Juanita Fletcher Unavailable MAPUS, TONDRA Admitting Unavailable MAPUS, TONDRA Attending Unavailable DEFRANCE, DR GRACIA Primary Care Unavailable MAPUS, TONDRA Consulting Unavailable DEFRANCE, DR GRACIA Admitting Unavailable [...] DR GRACIA Primary Care Unavailable WEST, DR GRACIA V Consulting Unavailable DEFRANCE, DR GRACIA Consulting Unavailable Defrance Samia JENKINS Primary Care Provider [phone] MD Samia Landeros Primary Care Provider MD Samia Landeros Attending Provider Samia Landeros Unavailable Defrance, Samia Primary Care Unavailable Defrance, Samia Admitting Unavailable DEFCHLOE, SAMIA Rivas Attending Unavailable DEFSAMIA CORONA Referring Unavailable DEFRANCE, SAMIA Rivas Primary Care Unavailable DEFRANCESAMIA Attending Unavailable DEFRANCE, SAMIA Rivas Referring Unavailable DEFRANCE, SAMIA T Primary Care Unavailable DEFSAMIA CORONA Attending Unavailable DEFRANCESAMIA Referring Unavailable DEFSAMIA CORONA Primary Care Unavailable Allergies Allergy Classification Reported Allergen(s) Allergy Type Date of Onset Reaction(s) Facility (20 sources) Codeine; Translations: [CODEINE] Drug Allergy 8 Swelling, Other (See Comments) [facility] Work Phone: (20 sources) LORazepam; Translations: [LORAZEPAM] Drug Allergy 8 rash, Other: See Comments [facility] Work Phone: (1 source) Codeine Drug Allergy [facility] Repository (1 source) LORazepam Drug Allergy [facility] Repository (1 source) Codeine Drug Allergy 4 [facility] Repository (1 source) LORazepam Drug Allergy [address] [place] [address] Repository Medications Current Medications Medication Drug Class(es) [...] 10 mg by mouth once daily. 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.] DAILY 0 03/13/2022 Active Start: 01-04-2022 HumaLOG AranzaPe n 100 UNIT/ML 1:40 corrective scale ac [...] sources) Long-term current use of insulin; 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] Episodic Other aftercare (7 sources) intermediate (current) use of insulin Episodic Other endocrine [...] mass index (BMI) 36.0-36.9, adult Chronic Other screening for suspected conditions (not mental disorders or infectious disease) (2 sources) Encounter for screening mammogram for malignant neoplasm of breast; Translations: [ENC SCR MAMMO MALIG NEOPLASM BREAST] Onset: 11-10-2021 Episodic Residual codes; unclassified (16 sources) Acquired partial absence of pancreas; 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 Unclassified (2 sources) Acute pancreatitis with uninfected necrosis, unspecified; Translations: [Acute pancreatitis with uninfected necrosis, unspecified] Onset: 11-01-2017 Unclassified (1 source) Annual Exam Onset: 10-16-2023 Unclassified (1 source) Routine Check up Onset: [...] respiratory system] Onset: 11-05-2017 08-25-2020 Episodic Other upper respiratory infections (2 sources) Acute sinusitis; Translations: [Other acute sinusitis] Onset: 04-16-2023 04-16-2023 Episodic Pancreatic disorders (not diabetes) (14 sources) Acute necrotizing pancreatitis; Translations: [Acute pancreatitis with uninfected necrosis, unspecified] Onset: 11-03-2017 12-28-2017 Episodic Spondylosis; intervertebral disc disorders; other back problems (9 sources) Neck pain; Translations: [Cervicalgia] Onset: 08-31-2022 08-31-2022 Episodic Unclassified (9 sources) Onset: 04-29-2020 04-29-2020 Results Test Name Value Interpretation Reference Range Facility A1C HEMOGLOBINon 03-12-2023 HbA1c (Bld) [Mass fraction] 7.8 % [facility] Other Glucose - FINGER STICKon Glucose [Mass/Vol] 132 mg/dL [facility] Other HbA1c (Bld) [Mass fraction]o n 03-12-2023 A1C HEMOGLOBIN [employer] Other A1C HEMOGLOBINon 11-27-2022 HbA1c (Bld) [Mass fraction] 6.7 % [facility] Other Glucose - FINGER STICKon Glucose [Mass/Vol] 126 mg/dL [facility] Other HbA1c (Bld) [Mass fraction]o n 11-27-2022 A1C HEMOGLOBIN [employer] Other Glucose - FINGER STICKon Glucose [Mass/Vol] 106 mg/dL [facility] Other Glucose - FINGER STICKon Glucose [Mass/Vol] 131 mg/dL [facility] Other GGTon 05-01-2022 Gamma glutamyl transferase [Catalytic activity/Vol] 27 U/L Normal 8-55 [facility] Comment on above: Performed By: #### G GT, ALT, AST #### [facility] [address] [address] [address] Caridad COLINOTodeborah 05-01-2022 AST [Catalytic activity/Vol] 24 U/L Normal 15-37 [facility] Comment on above: Performed By: #### G GT, ALT, AST ####[facility] [address] [place], [place] [address]YuDr. Caridad COLINPTon 05-01-2022 ALT [Catalytic activity/Vol] 40 U/L Normal 14-59 [facility] Comment on above: Performed By: #### G GT, ALT, AST #### [facility] [address] [address] [address] Caridad [place] Glucose - FINGER STICKon Glucose [Mass/Vol] 126 mg/dL [facility] Other A1C HEMOGLOBINon 02-20-2022 HbA1c (Bld) [Mass fraction] 10.0 % [facility] Other Glucose - FINGER STICKon Glucose [Mass/Vol] 125 mg/dL [facility] Other HbA1c (Bld) [Mass fraction]o n 02-20-2022 A1C HEMOGLOBIN [facility] Other C-PEPTIDE, SERUMon C-Peptide, Serum 3.5 ng/mL Normal 1.1-4.4 [place] Comment on above: Result Comment: C-Pe ptide reference interval is for fasting patients. Performed By: #### C PEPT #### [facility] [address] [place], [place] [address] Dr. Caridad [place] GGTon 01-06-2022 Gamma glutamyl transferase [Catalytic activity/Vol] 40 U/L Normal 8-55 [facility] Comment on above: Performed By: #### A ST, K, ALT, LIPID, GGT ####[facility] [address] [place] [id number]. Caridad [place] GLUCOSE BLOODon 01-06-2022 Glucose [Mass/Vol] 342 mg/dL Critically high 74-106 [facility] Comment on above: Performed By: #### G PAMELA ####[facility] [address] [place] [id number]. Caridad [place] LIPID PROFILEon 01-06-2022 CHOL-HDL RATIO NORM SEE BELOW Normal [facility] Comment on above: Result Comment: 3.3 - 4.4 LOW RISK 4.4 - 7.1 AVERAGE RISK 7.1 - 11.0 MODERATE RISK >11.0 HIGH RISK Performed By: #### A ST, K, ALT, LIPID, GGT ####[facility] [address] [place] [id number] [place] Cholesterol [Mass/Vol] 142 mg/dL Normal <=200 [facility] Comment on above: Performed By: #### A ST, K, ALT, LIPID, GGT ####[facility] [address] [place] [id number] [place] Cholesterol in HDL [Mass/Vol] 32 mg/dL Critically low 40-60 [facility] Comment on above: Performed By: #### A ST, K, ALT, LIPID, GGT ####[facility] [address] [place] [address]Dr. Caridad [place] Cholesterol in LDL [Mass/Vol] 62.2 mg/dL Normal [facility] Comment on above: Performed By: #### A ST, K, ALT, LIPID, GGT ####[facility] [address] [place] [address]Dr. Caridad [place] Cholesterol.total/ Cholesterol in HDL [Mass ratio] 4.4 {ratio} Normal [facility] Comment on above: Performed By: #### A ST, K, ALT, LIPID, GGT ####[facility] [address] [place] [address]Dr. Caridad [place] HDL NORMAL > or = 60 mg/dl - LO W CARDIOVASCULAR RISK <40 mg/dl - HIGH CARDIOVASCULAR RISK Normal [facility] Comment on above: Performed By: #### A ST, K, ALT, LIPID, GGT ####[facility] [address] [place] [address]Dr. Caridad [place] LDL CALC NORMAL SEE BELOW Normal [facility] Comment on above: Result Comment: <100 mg/dl OPTIMAL 100 - 129 mg/dl NEAR OR ABOVE OPTIMAL 130 - 159 mg/dl BORDERLINE HIGH 160 - 189 mg/dl HIGH >190 mg/dl VERY HIGH Performed By: #### A ST, K, ALT, LIPID, GGT ####[facility] [address] [place] [address]Dr. Caridad [place] Triglyceride [Mass/Vol] 239 mg/dL Critically high <=150 [facility] Comment on above: Performed By: #### A ST, K, ALT, LIPID, GGT ####[facility] [address] [place] [address]Dr. Caridad Candaa VLDL CALC 47.8 mg/dL Normal [facility] Comment on above: Performed By: #### A ST, K, ALT, LIPID, GGT ####[facility] [address] [place] [id number]. Caridad [place] MICROALB CREAT RATIO RANDOMo n 01-06-2022 mALB <1.3 Normal <=30.0 [facility] Comment on above: Performed By: #### M CRR ####[facility] [address] [place] [id number]. Caridad [place] MALB CR RATIO 11.1 mg/g Normal 0.0-29.9 [facility] Comment on above: Performed By: #### M CRR ####[facility] [address] [place] [address]Dr. Caridad [place] MALB CR RATIO RANGE SEE BELOW Normal [facility] Comment on above: Result Comment: NO M ICROALBUMINURIA 0-29 MG/G CLINICAL MICROALBUMINURIA 30-300 MG/G MACROALBUMINURIA >300 MG/G Performed By: #### M CRR ####[facility] [address] [place] [address]Dr. Caridad [place] URINE CREAT 116.75 mg/dL Normal 20.00-300.00 [facility] Comment on above: Performed By: #### M CRR ####[facility] [address] [place] [address]Dr. Caridad [place] POTASSIUMon 01-06-2022 Potassium [Moles/Vol] 4.1 mmol/L Normal 3.5-5.1 [facility] Comment on above: Performed By: #### A ST, K, ALT, LIPID, GGT ####[facility] [address] [place] [address]Dr. Caridad [place] SGOTon 01-06-2022 AST [Catalytic activity/Vol] 32 U/L Normal 15-37 [facility] Comment on above: Performed By: #### A ST, K, ALT, LIPID, GGT ####[facility] [address] [place] [address]Dr. Caridad [place] SGPTon 01-06-2022 ALT [Catalytic activity/Vol] 63 U/L Critically high 14-59 [facility] Comment on above: Performed By: #### A ST, K, ALT, LIPID, GGT ####[facility] [address] [place], [place] [address]Dr. Caridad [place] Glucose - FINGER STICKon Glucose [Mass/Vol] 359 mg/dL [facility] Other GLYCOHEMOGLOBIN A1Con 2021 ADA RECOMMENDATION SEE BELOW Normal [facility] Comment on above: Result Comment: ADA RECOMMENDED LIMIT 4.0 - 6.0 ADA THERAPEUTIC TARGET < 7.0 ACTION SUGGESTED > 7.0 Performed By: #### A 1C #### [facility] [address] [place], [place] [address] Dr. Caridad [place] Glucose [Mass/Vol] 272 mg/dL Normal [facility] Comment on above: Performed By: #### A 1C #### [facility] [address] [address] [address] Caridad [place] HbA1c (Bld) [Mass fraction] 11.1 % Critically high 4.5-6.2 [facility] Comment on above: Performed By: #### A 1C #### [facility] [address] [place], [place] [address] Dr. Caridad [place] MG MAMM SCREEN 3D [facility] CADon 11-08-2021 MG MAMM SCREEN 3D [facility] CAD Patient: NICHOLE SANDHU Exam Date: 11/08/2021 : 1955 Gender:F Ordering : DR SAMIA LANDEROS Admission #: [id number] Family : Order #: [id number] CLICK HERE TO VIEW EXAM RADIOLOGY REPORT [...] Treatments None Family Cancers None LOCATION: [facility] BREAST COMPOSITION: Scattered areas fibroglandular density. [...] Cheek MD on 11/09/2021 at 07:37 Normal [facility] MICROALBUMIN/ CREATININE RAT IOon 10-25-2021 Albumin, Urine 985.5 ug/mL Normal Not Estab. [facility] Comment on above: Result Comment: Resu lts confirmed on dilution. Performed By: #### M ALBCRL #### [facility] [address] [place] [address] Dr. Caridad [place] Albumin/ Creatinine Ratio 399 mg/g creat Critically high 0-29 [facility] Comment on above: Result Comment: Norm al: 0 - 29 Moderately increased: 30 - 300 Severely increased: >300 Performed By: #### M ALBCRL #### [facility] [address] [place] [address] Dr. Caridad [place] Creatinine, Urine 247.2 mg/dL Normal Not Estab. [facility] Comment on above: Performed By: #### M ALBCRL #### [facility] [address] [place] [address] Dr. Caridad [place] CBC AUTO DIFFon 10-24-2021 BASO # 0.1 103/ul Normal 0.0-0.1 [facility] Comment on above: Performed By: #### C BC #### [facility] [address] [place] [address] Dr. Caridad [place] Basophils/100 WBC (Bld) 0.9 % Normal 0.2-2.0 [facility] Comment on above: Performed By: #### C BC #### [facility] [address] [place] [address] Dr. Cairdad [place] EO # 0.5 103/ul Normal 0.0-0.7 [facility] Comment on above: Performed By: #### C BC #### [facility] [address] [place] [address] Dr. Caridad [place] Eosinophils/100 WBC (Bld) 4.1 % Normal 0.9-7.0 [facility] Comment on above: Performed By: #### C BC #### [facility] [address] [place] [address] Dr. Caridad [place] Erythrocyte distribution width (RBC) [Ratio] 13.2 % Normal 11.0-15.0 [facility] Comment on above: Performed By: #### C BC #### [facility] [address] [place] [address] Dr. Caridad [place] Hematocrit (Bld) [Volume fraction] 42.5 % Normal 36.0-48.0 [facility] Comment on above: Performed By: #### C BC #### [facility] [address] [place] [address] Dr. Caridad [place] Hemoglobin (Bld) [Mass/Vol] 14.2 g/dL Normal 12.0-16.0 [facility] Comment on above: Performed By: #### C BC #### [facility] [address] [place] [address] Dr. Caridad [place] IG # 0.08 10e3/ul Critically high 0.00-0.03 [facility] Comment on above: Performed By: #### C BC #### [facility] [address] [place] [address] Dr. Caridad [place] IG % 0.7 % Critically high 0.0-0.5 [facility] Comment on above: Performed By: #### C BC #### [facility] [address] [place] [address] Dr. Caridad [place] LYMPH # 4.0 103/ul Critically high 1.2-3.8 [facility] Comment on above: Performed By: #### C BC #### [facility] [address] [place] [address] Dr. Caridad [place] Lymphocytes/100 WBC (Bld) 32.9 % Normal 20.5-60.0 [facility] Comment on above: Performed By: #### C BC #### [facility] [address] [place] [address] Dr. Caridad [place] MANUAL DIFF REQ NO Normal [facility] Comment on above: Performed By: #### C BC #### [facility] [address] [place] [address] Dr. Caridad [place] MCH (RBC) [Entitic mass] 28.8 pg Normal 26.7-34.0 [facility] Comment on above: Performed By: #### C BC #### [facility] [address] [place] [address] Dr. Caridad [place] MCHC (RBC) [Mass/Vol] 33.4 g/dL Normal 29.9-35.2 [facility] Comment on above: Performed By: #### C BC #### [facility] [address] [place] [address] Dr. Caridad [place] MCV (RBC) [Entitic vol] 86.2 fL Normal 81.0-99.0 [facility] Comment on above: Performed By: #### C BC #### [facility] [address] [place] [address] Dr. Caridad [place] MONO # 0.7 103/ul Normal 0.3-0.8 [facility] Comment on above: Performed By: #### C BC #### [facility] [address] [place] [address] Dr. Caridad [place] Monocytes/100 WBC (Bld) 6.1 % Normal 1.7-12.0 [facility] Comment on above: Performed By: #### C BC #### [facility] [address] [place] [address] Dr. Caridad [place] NEUT # 6.7 103/ul Critically high 1.4-6.5 [facility] Comment on above: Performed By: #### C BC #### [facility] [address] [place] [address] Dr. Caridad [place] Neutrophils/100 WBC (Bld) 55.3 % Normal 43.0-75.0 [facility] Comment on above: Performed By: #### C BC #### [facility] [address] [place] [address] Dr. Caridad [place] Platelet mean volume (Bld) [Entitic vol] 12.1 fL Normal 9.5-13.5 [facility] Comment on above: Performed By: #### C BC #### [facility] [address] [address] [address] Caridad [place] PLT 320 103/ul Normal 150-450 [facility] Comment on above: Performed By: #### C BC #### [facility] [address] [id number] Caridad [place] RBC 4.93 106/ul Normal 4.20-5.40 [facility] Comment on above: Performed By: #### C BC #### [facility] [address] [address] [address] Caridad [place] WBC 12.1 103/ul Critically high 4.0-11.0 [facility] Comment on above: Performed By: #### C BC #### [facility] [address] [address] [address] Caridad [place] FREE T4on 10-24-2021 Free T4 [Mass/Vol] 1.22 ng/dL Normal 0.76-1.46 [facility] Comment on above: Performed By: #### F T4 ####[facility] [address] [address]Dr. Caridad [place] LIPID PROFILEon 10-24-2021 CHOL-HDL RATIO NORM SEE BELOW Normal [facility] Comment on above: Result Comment: 3.3 - 4.4 LOW RISK 4.4 - 7.1 AVERAGE RISK 7.1 - 11.0 MODERATE RISK >11.0 HIGH RISK Performed By: #### C MP, LIPID, TSH #### [facility] [address] [address] [address] Caridad [place] Cholesterol [Mass/Vol] 181 mg/dL Normal <=200 [facility] Comment on above: Performed By: #### C MP, LIPID, TSH #### [facility] [address] [address] [address] Caridad [place] Cholesterol in HDL [Mass/Vol] 30 mg/dL Critically low 40-60 [facility] Comment on above: Performed By: #### C MP, LIPID, TSH #### [facility] [address] [address] [address] Caridad [place] Cholesterol in LDL [Mass/Vol] 74.6 mg/dL Normal [facility] Comment on above: Performed By: #### C MP, LIPID, TSH #### [facility] [address] [address] [address] Caridad [place] Cholesterol.total/ Cholesterol in HDL [Mass ratio] 6.0 {ratio} Normal [facility] Comment on above: Performed By: #### C MP, LIPID, TSH #### [facility] [address] [address] [address] Caridad [place] HDL NORMAL > or = 60 mg/dl - LO W CARDIOVASCULAR RISK <40 mg/dl - HIGH CARDIOVASCULAR RISK Normal [facility] Comment on above: Performed By: #### C MP, LIPID, TSH #### [facility] [address] [address] [address] Caridad [place] LDL CALC NORMAL SEE BELOW Normal [facility] Comment on above: Result Comment: <100 mg/dl OPTIMAL 100 - 129 mg/dl NEAR OR ABOVE OPTIMAL 130 - 159 mg/dl BORDERLINE HIGH 160 - 189 mg/dl HIGH >190 mg/dl VERY HIGH Performed By: #### C MP, LIPID, TSH #### [facility] [address] [address] [address] Caridad [place] Triglyceride [Mass/Vol] 382 mg/dL Critically high <=150 [facility] Comment on above: Performed By: #### C MP, LIPID, TSH #### [facility] [address] [address] [address] Caridad [place] VLDL CALC 76.4 mg/dL Normal [facility] Comment on above: Performed By: #### C MP, LIPID, TSH #### [facility] [address] [address] [address] Caridad [place] PROF 14(COMP METB)on 022 Albumin [Mass/Vol] 3.6 g/dL Normal 3.4-5.0 [facility] Comment on above: Performed By: #### C MP, LIPID, TSH #### [facility] [address] [address] [address] Caridad [place] Albumin/Globulin [Mass ratio] 0.8 {ratio} Normal [facility] Comment on above: Performed By: #### C MP, LIPID, TSH #### [facility] [address] [address] [address] Caridad [place] ALP [Catalytic activity/Vol] 98 U/L Normal 46-116 [facility] Comment on above: Performed By: #### C MP, LIPID, TSH #### [facility] [address] [address] [address] Caridad [place] ALT [Catalytic activity/Vol] 53 U/L Normal 14-59 [facility] Comment on above: Performed By: #### C MP, LIPID, TSH #### [facility] [address] [address] [address] Caridad [place] Anion gap [Moles/Vol] 13.6 mmol/L Normal [facility] Comment on above: Performed By: #### C MP, LIPID, TSH #### [facility] [address] [address] [address] Caridad [place] AST [Catalytic activity/Vol] 28 U/L Normal 15-37 [facility] Comment on above: Performed By: #### C MP, LIPID, TSH #### [facility] [address] [address] [address] Caridad [place] Bilirubin [Mass/Vol] 0.4 mg/dL Normal 0.2-1.0 [facility] Comment on above: Performed By: #### C MP, LIPID, TSH #### [facility] [address] [address] [address] Caridad [place] Calcium [Mass/Vol] 9.2 mg/dL Normal 8.5-10.1 [facility] Comment on above: Performed By: #### C MP, LIPID, TSH #### [facility] [address] [address] [address] Caridad [place] Chloride [Moles/Vol] 99 mmol/L Normal 98-107 [facility] Comment on above: Performed By: #### C MP, LIPID, TSH #### [facility] [address] [address] [address] Caridad [place] CO2 [Moles/Vol] 29.8 mmol/L Normal 21.0-32.0 [place] Comment on above: Performed By: #### C MP, LIPID, TSH #### [facility] [address] [address] [address] Caridad [place] Creatinine [Mass/Vol] 0.66 mg/dL Normal 0.55-1.02 [facility] Comment on above: Performed By: #### C MP, LIPID, TSH #### [facility] [address] [address] [address] Caridad [place] EGFR-AF CYPRIOT >60 Normal >=60 [place] Comment on above: Performed By: #### C MP, LIPID, TSH #### [facility] [address] [address] [address] Caridad [place] EGFR-NON AF CYPRIOT >60 Normal >=60 [facility] Comment on above: Performed By: #### C MP, LIPID, TSH #### [facility] [address] [address] [address] Caridad [place] Globulin (S) [Mass/Vol] 4.3 g/dL Normal [facility] Comment on above: Performed By: #### C MP, LIPID, TSH #### [facility] [address] [address] [address] Caridad [place] Glucose [Mass/Vol] 301 mg/dL Critically high 74-106 [facility] Comment on above: Performed By: #### C MP, LIPID, TSH #### [facility] [address] [address] [address] Caridad [place] Potassium [Moles/Vol] 3.4 mmol/L Critically low 3.5-5.1 [facility] Comment on above: Performed By: #### C MP, LIPID, TSH #### [facility] [address] [address] [address] Caridad [place] Protein [Mass/Vol] 7.9 g/dL Normal 6.4-8.2 [facility] Comment on above: Performed By: #### C MP, LIPID, TSH #### [facility] [address] [address] [address] Caridad [place] Sodium [Moles/Vol] 139 mmol/L Normal 136-145 [facility] Comment on above: Performed By: #### C MP, LIPID, TSH #### [facility] [address] [address] [address] Caridad [place] Urea nitrogen [Mass/Vol] 6.0 mg/dL Critically low 7.0-18.0 [facility] Comment on above: Performed By: #### C MP, LIPID, TSH #### [facility] [facility] [address] [address] [address] Caridad [place] Urea nitrogen/Creatinin e [Mass ratio] 9.1 mg/mg Normal [facility] Comment on above: Performed By: #### C MP, LIPID, TSH #### [facility] [address] [address] [address] Caridad [place] TSHon 10-24-2021 TSH 1.566 uIU/mL Normal 0.358-3.740 [facility] Comment on above: Performed By: #### C MP, LIPID, TSH #### [facility] [address] [place] [address] Dr. Caridad Canada OBSOLETEon 01-25-2021 OBSOLETE Refill (PAINMN) ----- NICHOLE SANDHU ([id number]) 1955 F Date Time Provider Department 01/25/21 [...] A DAY NEEDED FOR PAIN DIRECTED - eublxi-cuywzdqb-bbloonj (ZENPEP) 40,000-126,000- 168,000 unit delayed release capsule [...] mouth once daily. - blood sugar diagnostic ([place] VERIO) test strip Use as instructed Problem [...] Encounter Status:Closed by JACEY CABRAL on 01/25/21 [facility] ANES POSTPROC EVALon 021 ANES POSTPROC EVAL HNO ID: [id number] Author: Jayce Chase DO Service: Anesthesiology Author Type: Anesthesiologist Type: Anesthesia Postprocedure Evaluation Filed: 08/31/2020 9:44 AM Note Text: POST ANESTHESIA EVALUATION NOTE : 1955 Procedure Summary Date: 08/31/20 Room / Location: ENDO04 / SP ENDO Anesthesia Start: 839 [...] August 31, 2020 TIME: 9:44 AM CSN: [id number] [facility] ANES PRE-OPon 08-31-2020 ANES PRE-OP HNO ID: [id number] Author: Jayce Chase DO Service: Anesthesiology Author [...] A DAY NEEDED FOR PAIN DIRECTED - oniwwi-chhrgceq-wvliyrd (ZENPEP) 40,000-126,000- 168,000 unit cpDR Take 2 [...] mouth once daily. - blood sugar diagnostic ([place] VERIO) test strip Use as instructed I have interviewed and examined the patient. I have reviewed the medical record and/or the pre-anesthesia evaluation, pertinent labs, and test results. This contains updated information obtained within 48 hours of Surgery/Procedure. SIGNATURE: Chino Graves DO PATIENT NAME: Nichole Sandhu DATE: August 31, 2020 TIME: 7:27 AM CSN: [id number] [facility] CNCOon 08-31-2020 CNCO Letter Text [facility] HISTORY PHYSICALon HISTORY PHYSICAL HNO ID: [id number] Author: Chaz Benitez PA-C Service: Gastroenterology Author Type: Physician Pricing Associate Type: HANDP Filed: 08/31/2020 8:10 AM Note [...] is colonoscopy. Medication reconciliation list reviewed in [facility]. Past medical history, past surgical history, social history and family history reviewed and updated in [facility]. ALLERGIES Allergen Reactions - Ativan [Lorazepam] Other: [...] August 31, 2020 TIME: 7:28 AM Normal [facility] NURSING PROGon 08-31-2020 NURSING PROG HNO ID: [id number] Author: Ericka Hughes RN Service: Gastroenterology Author Type: Registered Nurse Type: Nursing Progress Note Filed: 09/01/2020 10:56 AM Note Text: [facility] ENDOSCOPY POST PROCEDURE FOLLOW UP CALL [phone] (home) Date Phone Call Made: 09/01/2020 Attempt: [...] more pleasant? No Ericka Hughes RN Normal [facility] SURGICAL PATHOLOGYon 021 SURGICAL PATHOLOGY Specimen originated from [facility] Specimen #: [id number] Submitting Physician: JAYCE WORKMAN FINAL DIAGNOSIS 1. [...] in one cassette. Gross examination performed at [facility], [address] [place] [address] J 08/31/2020 2:17:20 PM Date of Report: 09/01/2020 Date of Procedure: 08/31/2020 Date of Receipt: 08/31/2020 Submitted by: JAYCE WORKMAN [place] [facility] [place] Diagnostic interpretation performed at [facility], [address] [place] [address], [place] [address]. CLIA Number: [id number] Normal [facility] NURSING PROGon 08-30-2020 NURSING PROG HNO ID: [id number] Author: Rosibel Aiken, RODRICK Service: ? Author Type: Registered Nurse Type: Nursing Progress Note Filed: 08/30/2020 2:11 PM Note Text: [facility] ENDOSCOPY PRE PROCEDURE CALL Diana. 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 Breana Sandhu What is the best number for your fuel oil truck driver to be reached at tomorrow for updates? [phone] At this time due to COVID precautions [...] to proceed. 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 yes If anesthesia or sedation is being given: Patient instructed you must have an adult fuel oil truck driver because you will not be able to work or drive for the rest of the day after your test.yes Patient instructed not bring any valuables, jewelry, or ponce and wear comfortable clothing. Do not wear makeup, lotion, or finger malay. yes Patient instructed: Do not eat or [...] given Any barriers to Patient learning (confusion? 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 Type of instruction given: Verbal by telephone contact. [facility] ALANA Telephone (SPDIG) ----- NICHOLE SANDHU ([id number]) 1955 F Date Time Provider Department 08/18/20 [facility] During your visit today, we recorded the following information about you: Bernarda Delgado RN 08/18/2020 5:08 PM Signed COLONOSCOPY- Delete if [...] instructed that they will need a designated fuel oil truck driver on the day of the exam. [...] A DAY NEEDED FOR PAIN DIRECTED - znnpjg-vhztorty-cemihfb (ZENPEP) 40,000-126,000- 168,000 unit cpDR Take 2 [...] 40 mg by mouth once daily. - zteiol-akzrtvwi-nasnrgv (ZENPEP) 40,000-126,000- 168,000 unit cpDR Take 2 [...] mouth once daily. - blood sugar diagnostic ([place] VERIO) test strip Use as instructed Problem [...] Encounter Status:Closed by BERNARDA DELGADO on 08/18/20 [facility] Coding Summary.on 01-16-2018 Coding Summary. CODING DATE: [address] [facility] STATUS: Home (Routine DC) PAYOR: Medical Hallie APC DESCRIPTION 5571 Level 1 Imaging with [...] Denny CphT Date Saved: 01/16/2018 07:44 am Normal [facility] Coding Summary.on 12-27-2017 Coding Summary. CODING DATE: [address] [facility] STATUS: Home (Routine DC) PAYOR: Medical Hallie ADMIT DX: REASON FOR VISIT DX: E61.1 [...] CphT Date Saved: 12/27/2017 02:09 pm Normal [facility] Auto Diffon 12-25-2017 Basophils/100 WBC (Bld) 0.2 % Normal 0.0-2.0 [facility] Comment on above: Order Comment: Order Added by Discern Expert. Performed By: #### 2 956872, 38626546, 59892482, 8123546, 8469498 #### [facility] Laboratory [address] [place] [address] Basophils/Leukocyt es Auto (Bld) [Pure # fraction] 0.0 E9/L Normal 0.0-0.2 [facility] Comment on above: Order Comment: Order Added by Discern Expert. Performed By: #### 2 826694, 38728662, 52481202, 8727539, 8347235 #### [facility] Laboratory [address] [place] [address] Eosinophils/100 WBC (Bld) 0.9 % Normal 0.0-8.0 [facility] Comment on above: Order Comment: Order Added by Discern Expert. Performed By: #### 2 219913, 33578285, 35331108, 0251618, 5231691 #### [facility] [address] [place] [address] Eosinophils/Leukoc ytes Auto (Bld) [Pure # fraction] 0.1 E9/L Normal 0.0-0.5 [facility] Comment on above: Order Comment: Order Added by Discern Expert. Performed By: #### 2 383903, 17733395, 31743953, 7310005, 0576035 #### [facility] [address] [place] [address] Lymphocytes/100 WBC (Bld) 8.4 % Low 14.0-50.0 [facility] Comment on above: Order Comment: Order Added by Discern Expert. Performed By: #### 2 947460, 14440434, 50477943, 3648357, 7963399 #### [facility] [address] [place] [address] Lymphocytes/Leukoc ytes Auto (Bld) [Pure # fraction] 1.3 E9/L Normal 1.0-4.0 [facility] Comment on above: Order Comment: Order Added by Discern Expert. Performed By: #### 2 280084, 46075155, 53321680, 5280103, 9329205 #### [facility] [address] [place] [address] Monocytes/100 WBC (Bld) 6.8 % Normal 4.0-14.0 [facility] Comment on above: Order Comment: Order Added by Discern Expert. Performed By: #### 2 581216, 68631722, 81656336, 1206234, 9575341 #### [facility] [address] [place] [address] Monocytes/Leukocyt es Auto (Bld) [Pure # fraction] 1.1 E9/L High 0.2-1.0 [facility] Comment on above: Order Comment: Order Added by Discern Expert. Performed By: #### 2 230446, 68652731, 49842226, 3805097, 4936621 #### [facility] [address] [place] [address] Neutrophils/100 WBC (Bld) 83.7 % High 36.0-75.0 [facility] Comment on above: Order Comment: Order Added by Discern Expert. Performed By: #### 2 647276, 91635869, 98448879, 8411075, 7578674 #### [facility] [address] [place] [address] Neutrophils/Leukoc ytes Auto (Bld) [Pure # fraction] 13.1 E9/L High 2.0-7.5 [facility] Comment on above: Order Comment: Order Added by Discern Expert. Performed By: #### 2 502433, 58285060, 87677882, 7343828, 5814157 #### [facility] [address] [place] [address] CBC w/ Auto Diffon Erythrocyte distribution width (RBC) [Ratio] 16.4 % High 10.9-14.2 [facility] Comment on above: Performed By: #### 2 143017, 68282139, 78650701, 0492829, 5872832 #### [facility] [address] [place] [address] Hematocrit (Bld) [Volume fraction] 29.6 % Low 34.0-46.0 [facility] Comment on above: Performed By: #### 2 559431, 00908339, 45495858, 1733091, 8990531 #### [facility] [address] [place] [address] Hemoglobin (Bld) [Mass/Vol] 9.2 g/dL Low 12.0-16.0 [facility] Comment on above: Performed By: #### 2 858295, 88702269, 25423701, 7446891, 6526238 #### [facility] [address] [place] [address] MCH (RBC) [Entitic mass] 23.6 pg Low 27.0-34.0 [facility] Comment on above: Performed By: #### 2 347200, 40768395, 38597787, 6073981, 6905754 #### [facility] [address] [place] [address] MCHC (RBC) [Mass/Vol] 31.1 g/dL Low 31.4-39.3 [facility] Comment on above: Performed By: #### 2 019990, 49710619, 30134017, 3530380, 2952419 #### [facility] [address] [address] MCV (RBC) [Entitic vol] 75.9 fL Low 80.0-100.0 [facility] Comment on above: Performed By: #### 2 633564, 21959582, 25609476, 8971035, 6484426 #### [facility] [address] [place] [address] Platelet mean volume (Bld) [Entitic vol] 10.2 fL Normal 6.4-10.8 [facility] Comment on above: Performed By: #### 2 962563, 30130217, 38395127, 0466318, 7578514 #### [facility] [address] [place], [place] [address] Platelets (Bld) [#/Vol] 375.0 E9/L Normal 150.0-500.0 [facility] Comment on above: Performed By: #### 2 098696, 31335875, 44197340, 3334790, 3563482 #### [facility] [address] [place], [place] [address] RBC (Bld) [#/Vol] 3.9 E12/L Low 4.3-5.9 [facility] Comment on above: Performed By: #### 2 170836, 60401203, 32315017, 2555755, 7170487 #### [facility] [address] [place] [address] WBC corrected for nucl RBC Auto (Bld) [#/Vol] 15.6 E9/L High 4.0-11.0 [facility] Comment on above: Performed By: #### 2 218962, 75693085, 99568859, 8452072, 0954184 #### [facility] [address] [place] [address] CMPon 12-25-2017 Albumin [Mass/Vol] 0.6 g/dL Low 1.1-2.2 [facility] Comment on above: Performed By: #### 2 343352, 54085766, 33262346, 7983859, 2172793 #### [facility] [address] [place] [address] Albumin [Mass/Vol] 2.9 g/dL Low 3.3-5.0 [facility] Comment on above: Performed By: #### 2 118447, 32815818, 92592683, 6742291, 1085352 #### [facility] [address] [place] [address] ALP [Catalytic activity/Vol] 62 Int._Unit/L Normal 21-98 [facility] Comment on above: Performed By: #### 2 828822, 35277859, 74622697, 4181064, 3768356 #### [facility] [address] [place] [address] ALT No additional P-5'-P [Catalytic activity/Vol] 12 Int._Unit/L Normal 6-46 [facility] Comment on above: Performed By: #### 2 702590, 84849218, 03660739, 9669105, 9636250 #### [facility] [address] [place] [address] Anion gap [Moles/Vol] 16 mmol/L Normal 6-16 [facility] Comment on above: Performed By: #### 2 893394, 72000529, 31247475, 0652876, 2861940 #### [facility] [address] [place] [address] AST [Catalytic activity/Vol] 19 Int._Unit/L Normal 5-43 [facility] Comment on above: Performed By: #### 2 423729, 85517056, 31012447, 9338087, 7226895 #### [facility] [address] [place] [address] Bilirubin [Mass/Vol] 0.5 mg/dL Normal 0.0-1.1 [facility] Comment on above: Performed By: #### 2 008827, 76649474, 31566941, 7575715, 9672791 #### [facility] [address] [place] [address] Calcium [Mass/Vol] 8.9 mg/dL Normal 8.9-11.1 [facility] Comment on above: Performed By: #### 2 789489, 74749611, 28039554, 9357185, 8053661 #### [facility] [address] [place] [address] Chloride [Moles/Vol] 98 mmol/L Low 101-111 [facility] Comment on above: Performed By: #### 2 359158, 15619281, 82207526, 5300689, 0541092 #### [facility] [address] [place] [address] CO2 [Moles/Vol] 26 mmol/L Normal 21-[address] [facility] Comment on above: Performed By: #### 2 274253, 02752842, 22268651, 5425872, 7341397 #### [facility] [address] [place] [address] Creatinine [Mass/Vol] 0.5 mg/dL Normal 0.5-1.3 [facility] Comment on above: Performed By: #### 2 011196, 24699214, 91126637, 0659634, 9252366 #### [facility] [address] [place] [address] Globulin (S) [Mass/Vol] 4.8 g/dL High 1.4-4.0 [facility] Comment on above: Performed By: #### 2 089312, 63642230, 68956606, 0629861, 9329503 #### [facility] [address] [place] [address] Glucose [Mass/Vol] 105 mg/dL Normal 55-199 [facility] Comment on above: Result Comment: If t his glucose result represents a fasting glucose, interpretation should refer to the following reference range: 55-99 mg/dL Performed By: #### 2 613629, 85839020, 57604998, 5988789, 9536317 #### [facility] [address] [place] [address] Potassium [Moles/Vol] 3.7 mmol/L Normal 3.5-5.3 [facility] Comment on above: Performed By: #### 2 003319, 35413472, 07906623, 2684675, 5815833 #### [facility] [address] [place] [address] Protein [Mass/Vol] 7.7 g/dL Normal 6.0-7.8 [facility] Comment on above: Performed By: #### 2 911571, 22398247, 11461279, 6670677, 5588370 #### [facility] [address] [place] [address] Sodium [Moles/Vol] 136 mmol/L Normal 135-145 [facility] Comment on above: Performed By: #### 2 273124, 58912328, 70227413, 7028271, 6080365 #### [facility] [address] [place] [address] Urea nitrogen [Mass/Vol] 9 mg/dL Normal 5-21 [facility] Comment on above: Performed By: #### 2 779960, 92807843, 47698811, 8239293, 0819442 #### [facility] [address] [place] [address] Urea nitrogen/Creatinin e [Mass ratio] 18 No Units Normal 10-20 [facility] Comment on above: Performed By: #### 2 004970, 87846405, 25637379, 3569194, 1094086 #### [facility] [address] [place] [address] Morphon 12-25-2017 Anisocytosis Ql (Bld) Present Normal [facility] Comment on above: Order Comment: Order Added by Discern Expert. Performed By: #### 2 370440, 00561890, 19091115, 0064916, 7481779 #### [facility] [address] [place] [address] Morphology Víctor (Bld) [Interp] See Morphology Normal [facility] Comment on above: Order Comment: Order Added by Discern Expert. Performed By: #### 2 225169, 34809324, 02649944, 0900260, 7375982 #### [facility] [address] [place] [address] Platelets Large LM Ql (Bld) Present Normal [facility] Comment on above: Order Comment: Order Added by Discern Expert. Performed By: #### 2 169949, 68538577, 40860956, 2453079, 0548837 #### [facility] [address] [place] [address] eGFRon 12-25-2017 GFR/1.73 sq M predicted among blacks MDRD (S/P/Bld) [Vol rate/Area] mL/min/{1.73_m2} Normal >=59 [facility] Comment on above: Order Comment: Order added by Discern Expert. Result Comment: eGFR is race adjusted. AA=. Performed By: #### 2 449983, 25816588, 39771669, 6428390, 7625336 #### [facility] [address] [place] [address] GFR/1.73 sq M predicted among non-blacks MDRD (S/P/Bld) [Vol rate/Area] mL/min/{1.73_m2} Normal >=59 [facility] Comment on above: Order Comment: Order added by Discern Expert. Result Comment: Winding Inspector And Tester kaleigh kidney disease could be indicated at eGFR's of less than 60 mL/min/1.73m2. Kidney failure is indicated at less than 15 mL/min/1.73m2. Performed By: #### 2 804581, 48645936, 86524843, 6587182, 2443962 #### [facility] [address] [place] [address] Coding Summary.on 12-18-2017 Coding Summary. CODING DATE: [address] [facility] STATUS: Home (Routine DC) PAYOR: Medical Hallie APC DESCRIPTION 5571 Level 1 Imaging with [...] [place] Date Saved: 12/18/2017 12:08 pm Normal [facility] Creatinineon 12-17-2017 Creatinine [Mass/Vol] 0.5 mg/dL Normal 0.5-1.3 [facility] Comment on above: Performed By: #### 1 4061061, 6972201 #### [facility] [address] [place] [address] eGFRon 12-17-2017 GFR/1.73 sq M predicted among blacks MDRD (S/P/Bld) [Vol rate/Area] mL/min/{1.73_m2} Normal >=59 [facility] Comment on above: Order Comment: Order added by Discern Expert. Result Comment: eGFR is race adjusted. AA=. Performed By: #### 1 7436966, 6818928 #### [facility] [address] [place] [address] GFR/1.73 sq M predicted among non-blacks MDRD (S/P/Bld) [Vol rate/Area] mL/min/{1.73_m2} Normal >=59 [facility] Comment on above: Order Comment: Order added by Discern Expert. Result Comment: Winding Inspector And Tester kaleigh kidney disease could be indicated at eGFR's of less than 60 mL/min/1.73m2. Kidney failure is indicated at less than 15 mL/min/1.73m2. Performed By: #### 1 4033208, 1135342 #### [facility] [address] [place] [address] Cult, Bloodon 11-08-2017 Cult, Blood Specimen Description .BLOOD Special Requests LT HAND Culture NO GROWTH 6 DAYS Report Status FINAL 11/08/2017 [facility] Comment on above: Performed By: #### L IP, LACWB, IOCAL, PT, CDP, CHANDU, PTT, LIPR, CMPX ####[address] [place] [address] Cult,Bloodon 11-08-2017 Cult,Blood Specimen Description .BLOOD Special Requests NOT REPORTED Culture NO GROWTH 6 DAYS Report Status FINAL 11/08/2017 Normal [facility] Comment on above: Performed By: #### L IP, LACWB, IOCAL, PT, CDP, CHANDU, PTT, LIPR, CMPX ####[place] [address] Plan of Careon 11-04-2017 HIM IP Note OR Entry Level Sales Associate [facility] Basic Metabolic Profon 11-03 (cont.) Normal [facility] Comment on above: Result Comment: Aver age GFR for 60-69 years old: 85 mL/min/1.73sq mChronic Kidney Disease: <60 mL/min/1.73sq mKidney failure: <15 mL/min/1.73sq meGFR calculated using average adult body mass. Additional eGFR calculator available at:[email or web address]/multiple_crcl_2012.htm Performed By: #### L IP, LACWB, IOCAL, PT, CDP, CHANDU, PTT, LIPR, CMPX ####[facility] [id number] [place], [place] [address] Anion gap 3 molar conc 9 mmol/L Normal 9-17 [facility] Comment on above: Performed By: #### L IP, LACWB, IOCAL, PT, CDP, CHANDU, PTT, LIPR, CMPX ####[address] [place] [address] Calcium mass conc 8.3 mg/dL Low 8.6-10.4 [facility] Comment on above: Performed By: #### L IP, LACWB, IOCAL, PT, CDP, CHANDU, PTT, LIPR, CMPX ####[address] [address] Chloride molar conc 111 mmol/L High 98-107 [facility] Comment on above: Performed By: #### L IP, LACWB, IOCAL, PT, CDP, CHANDU, PTT, LIPR, CMPX ####[address] [address] CO2 molar conc 26 mmol/L Normal 20-31 [facility] Comment on above: Performed By: #### L IP, LACWB, IOCAL, PT, CDP, CHANDU, PTT, LIPR, CMPX ####[address] [address] Creatinine mass conc 0.84 mg/dL Normal 0.50-0.90 [facility] Comment on above: Performed By: #### L IP, LACWB, IOCAL, PT, CDP, CHANDU, PTT, LIPR, CMPX ####[address] [address] GFR, Amer >60 Normal >60 [facility] Comment on above: Performed By: #### L IP, LACWB, IOCAL, PT, CDP, CHANDU, PTT, LIPR, CMPX ####[address] [address] GFR,non Amer >60 Normal >60 [facility] Comment on above: Performed By: #### L IP, LACWB, IOCAL, PT, CDP, CHANDU, PTT, LIPR, CMPX ####[address] [address] Glucose mass conc 124 mg/dL High 70-99 [facility] Comment on above: Performed By: #### L IP, LACWB, IOCAL, PT, CDP, CHANDU, PTT, LIPR, CMPX ####[facility] [id number] [place] [address] Potassium molar conc 4.2 mmol/L Normal 3.7-5.3 [facility] Comment on above: Performed By: #### L IP, LACWB, IOCAL, PT, CDP, CHANDU, PTT, LIPR, CMPX ####[address] [place] [address] Sodium molar conc 146 mmol/L High 135-144 [facility] Comment on above: Performed By: #### L IP, LACWB, IOCAL, PT, CDP, CHANDU, PTT, LIPR, CMPX ####[address] [address] Urea nitrogen mass conc 25 mg/dL High 8-23 [facility] Comment on above: Performed By: #### L IP, LACWB, IOCAL, PT, CDP, CHANDU, PTT, LIPR, CMPX ####[address] [address] BUN/CRE Ratio NOT REPORTED Normal 9-20 [facility] Comment on above: Performed By: #### L IP, LACWB, IOCAL, PT, CDP, CHANDU, PTT, LIPR, CMPX ####[address] [address] Staging: NOT REPORTED Normal [facility] Comment on above: Performed By: #### L IP, LACWB, IOCAL, PT, CDP, CHANDU, PTT, LIPR, CMPX ####[address] [address] CBC with Diffon 11-03-2017 Abs. Basophil 0.00 k/uL Normal 0.0-0.2 [facility] Comment on above: Performed By: #### L IP, LACWB, IOCAL, PT, CDP, CHANDU, PTT, LIPR, CMPX ####[address] [address] Abs.Imm.Granulocyt e 0.33 k/uL High 0.00-0.30 [facility] Comment on above: Performed By: #### L IP, LACWB, IOCAL, PT, CDP, CHANDU, PTT, LIPR, CMPX ####[place] [address] Abs.Neutrophil (Seg) 13.12 k/uL High 1.8-7.7 [facility] Comment on above: Performed By: #### L IP, LACWB, IOCAL, PT, CDP, CHANDU, PTT, LIPR, CMPX ####[place] [address] Basophils/100 WBC Auto (Bld) 0 % Normal 0-2 [facility] Comment on above: Performed By: #### L IP, LACWB, IOCAL, PT, CDP, CHANDU, PTT, LIPR, CMPX ####[address] [address] Eosinophils Auto #/vol (Bld) 0.00 10*3/uL Normal 0.0-0.4 [facility] Comment on above: Performed By: #### L IP, LACWB, IOCAL, PT, CDP, CHANDU, PTT, LIPR, CMPX ####[place] [address] Eosinophils/100 WBC Auto (Bld) 0 % Low 1-4 [facility] Comment on above: Performed By: #### L IP, LACWB, IOCAL, PT, CDP, CHANDU, PTT, LIPR, CMPX ####[address] [address] Immature granulocytes #/vol (Bld) 2 % High 0 [facility] Comment on above: Performed By: #### L IP, LACWB, IOCAL, PT, CDP, CHANDU, PTT, LIPR, CMPX ####[address] [address] Lymphocytes Auto #/vol (Bld) 1.49 10*3/uL Normal 1.0-4.8 [facility] Comment on above: Performed By: #### L IP, LACWB, IOCAL, PT, CDP, CHANDU, PTT, LIPR, CMPX ####[address] [address] Lymphocytes/100 WBC Auto (Bld) 9 % Low 24-44 [facility] Comment on above: Performed By: #### L IP, LACWB, IOCAL, PT, CDP, CHANDU, PTT, LIPR, CMPX ####[address] [address] Monocytes Auto #/vol (Bld) 1.66 10*3/uL High 0.1-0.8 [facility] Comment on above: Performed By: #### L IP, LACWB, IOCAL, PT, CDP, CHANDU, PTT, LIPR, CMPX ####[address] [address] Monocytes/100 WBC Auto (Bld) 10 % High 1-7 [facility] Comment on above: Performed By: #### L IP, LACWB, IOCAL, PT, CDP, CHANDU, PTT, LIPR, CMPX ####[address] [address] Morphology Interp Víctor (Bld) ANISOCYTOSIS PRESENT Normal [facility] Comment on above: Result Comment: INCR EASED BANDS PRESENTTOXIC GRANULATION PRESENT Performed By: #### L IP, LACWB, IOCAL, PT, CDP, CHANDU, PTT, LIPR, CMPX ####[address] [address] Neutrophil (Seg) 79 % High 36-66 [facility] Comment on above: Performed By: #### L IP, LACWB, IOCAL, PT, CDP, CHANDU, PTT, LIPR, CMPX ####[address] [address] Erythrocyte distribution width Auto Ratio (RBC) 15.1 % High 11.8-14.4 [facility] Comment on above: Performed By: #### L IP, LACWB, IOCAL, PT, CDP, CHANDU, PTT, LIPR, CMPX ####[address] [address] Hematocrit Auto Volume Fraction (Bld) 35.4 % Low 36.3-47.1 [facility] Comment on above: Performed By: #### L IP, LACWB, IOCAL, PT, CDP, CHANDU, PTT, LIPR, CMPX ####[address] [address] Hemoglobin mass conc (Bld) 10.6 g/dL Low 11.9-15.1 [facility] Comment on above: Performed By: #### L IP, LACWB, IOCAL, PT, CDP, CHANDU, PTT, LIPR, CMPX ####[address] [address] MCH Auto Entitic mass (RBC) 26.3 pg Normal 25.2-33.5 [facility] Comment on above: Performed By: #### L IP, LACWB, IOCAL, PT, CDP, CHANDU, PTT, LIPR, CMPX ####[address] [address] MCHC Auto mass conc (RBC) 29.9 g/dL Normal 28.4-34.8 [facility] Comment on above: Performed By: #### L IP, LACWB, IOCAL, PT, CDP, CHANDU, PTT, LIPR, CMPX ####[address] [address] MCV Auto Entitic volume (RBC) 87.8 fL Normal 82.6-102.9 [facility] Comment on above: Performed By: #### L IP, LACWB, IOCAL, PT, CDP, CHANDU, PTT, LIPR, CMPX ####[address] [address] NRBC Automated 0.1 per 100 WBC High 0.0 [facility] Comment on above: Performed By: #### L IP, LACWB, IOCAL, PT, CDP, CHANDU, PTT, LIPR, CMPX ####[address] [address] Platelet mean volume Auto Entitic volume (Bld) 11.4 fL Normal 8.1-13.5 [facility] Comment on above: Performed By: #### L IP, LACWB, IOCAL, PT, CDP, CHANDU, PTT, LIPR, CMPX ####[place] [address] Platelets Auto #/vol (Bld) 267 10*3/uL Normal 138-453 [facility] Comment on above: Performed By: #### L IP, LACWB, IOCAL, PT, CDP, CHANDU, PTT, LIPR, CMPX ####[address] [address] RBC Auto #/vol (Bld) 4.03 10*6/uL Normal 3.95-5.11 [facility] Comment on above: Performed By: #### L IP, LACWB, IOCAL, PT, CDP, CHANDU, PTT, LIPR, CMPX ####[address] [address] WBC Auto #/vol (Bld) 16.6 10*3/uL High 3.5-11.3 [facility] Comment on above: Performed By: #### L IP, LACWB, IOCAL, PT, CDP, CHANDU, PTT, LIPR, CMPX ####[place] [address] Auto Diff Performed NOT REPORTED Normal [facility] Comment on above: Performed By: #### L IP, LACWB, IOCAL, PT, CDP, CHANDU, PTT, LIPR, CMPX ####[place] [address] Platelets Auto #/vol (Bld) NOT REPORTED Normal [facility] Comment on above: Performed By: #### L IP, LACWB, IOCAL, PT, CDP, CHANDU, PTT, LIPR, CMPX ####[place] [address] RBC morphology finding Nom (Bld) NOT REPORTED Normal [facility] Comment on above: Performed By: #### L IP, LACWB, IOCAL, PT, CDP, CHANDU, PTT, LIPR, CMPX ####[place] [address] WBC Morphology NOT REPORTED Normal [facility] Comment on above: Performed By: #### L IP, LACWB, IOCAL, PT, CDP, CHANDU, PTT, LIPR, CMPX ####[place] [address] Abs. Basophil 0.00 k/uL Normal 0.0-0.2 [facility] Comment on above: Performed By: #### L IP, LACWB, IOCAL, PT, CDP, CHANDU, PTT, LIPR, CMPX ####[address] [place] [address] Abs.Imm.Granulocyt e 0.16 k/uL Normal 0.00-0.30 [facility] Comment on above: Performed By: #### L IP, LACWB, IOCAL, PT, CDP, CHANDU, PTT, LIPR, CMPX ####[address] [address] Abs.Neutrophil (Seg) 13.34 k/uL High 1.8-7.7 [facility] Comment on above: Performed By: #### L IP, LACWB, IOCAL, PT, CDP, CHANDU, PTT, LIPR, CMPX ####[address] [address] Basophils/100 WBC Auto (Bld) 0 % Normal 0-2 [facility] Comment on above: Performed By: #### L IP, LACWB, IOCAL, PT, CDP, CHANDU, PTT, LIPR, CMPX ####[address] [address] Eosinophils Auto #/vol (Bld) 0.00 10*3/uL Normal 0.0-0.4 [facility] Comment on above: Performed By: #### L IP, LACWB, IOCAL, PT, CDP, CHANDU, PTT, LIPR, CMPX ####[place] [address] Eosinophils/100 WBC Auto (Bld) 0 % Low 1-4 [facility] Comment on above: Performed By: #### L IP, LACWB, IOCAL, PT, CDP, CHANDU, PTT, LIPR, CMPX ####[address] [address] Immature granulocytes #/vol (Bld) 1 % High 0 [facility] Comment on above: Performed By: #### L IP, LACWB, IOCAL, PT, CDP, CHANDU, PTT, LIPR, CMPX ####[address] [address] Lymphocytes Auto #/vol (Bld) 1.10 10*3/uL Normal 1.0-4.8 [facility] Comment on above: Performed By: #### L IP, LACWB, IOCAL, PT, CDP, CHANDU, PTT, LIPR, CMPX ####[address] [address] Lymphocytes/100 WBC Auto (Bld) 7 % Low 24-44 [facility] Comment on above: Performed By: #### L IP, LACWB, IOCAL, PT, CDP, CHANDU, PTT, LIPR, CMPX ####[address] [address] Monocytes Auto #/vol (Bld) 1.10 10*3/uL High 0.1-0.8 [facility] Comment on above: Performed By: #### L IP, LACWB, IOCAL, PT, CDP, CHANDU, PTT, LIPR, CMPX ####[address] [address] Monocytes/100 WBC Auto (Bld) 7 % Normal 1-7 [facility] Comment on above: Performed By: #### L IP, LACWB, IOCAL, PT, CDP, CHANDU, PTT, LIPR, CMPX ####[address] [address] Morphology Interp Víctor (Bld) INCREASED BANDS PRESENT Normal [facility] Comment on above: Result Comment: TOXI C GRANULATION PRESENTANISOCYTOSIS PRESENT Performed By: #### L IP, LACWB, IOCAL, PT, CDP, CHANDU, PTT, LIPR, CMPX ####[address] [address] Neutrophil (Seg) 85 % High 36-66 [facility] Comment on above: Performed By: #### L IP, LACWB, IOCAL, PT, CDP, CHANDU, PTT, LIPR, CMPX ####[address] [place] [address] Erythrocyte distribution width Auto Ratio (RBC) 15.0 % High 11.8-14.4 [facility] Comment on above: Performed By: #### L IP, LACWB, IOCAL, PT, CDP, CHANDU, PTT, LIPR, CMPX ####[address] [address] Hematocrit Auto Volume Fraction (Bld) 35.5 % Low 36.3-47.1 [facility] Comment on above: Performed By: #### L IP, LACWB, IOCAL, PT, CDP, CHANDU, PTT, LIPR, CMPX ####[address] [address] Hemoglobin mass conc (Bld) 10.8 g/dL Low 11.9-15.1 [facility] Comment on above: Performed By: #### L IP, LACWB, IOCAL, PT, CDP, CHANDU, PTT, LIPR, CMPX ####[address] [address] MCH Auto Entitic mass (RBC) 26.5 pg Normal 25.2-33.5 [facility] Comment on above: Performed By: #### L IP, LACWB, IOCAL, PT, CDP, CHANDU, PTT, LIPR, CMPX ####[address] [address] MCHC Auto mass conc (RBC) 30.4 g/dL Normal 28.4-34.8 [facility] Comment on above: Performed By: #### L IP, LACWB, IOCAL, PT, CDP, CHANDU, PTT, LIPR, CMPX ####[address] [address] MCV Auto Entitic volume (RBC) 87.2 fL Normal 82.6-102.9 [facility] Comment on above: Performed By: #### L IP, LACWB, IOCAL, PT, CDP, CHANDU, PTT, LIPR, CMPX ####[place] [address] NRBC Automated 0.0 per 100 WBC Normal 0.0 [facility] Comment on above: Performed By: #### L IP, LACWB, IOCAL, PT, CDP, CHANDU, PTT, LIPR, CMPX ####[place] [address] Platelet mean volume Auto Entitic volume (Bld) 11.7 fL Normal 8.1-13.5 [facility] Comment on above: Performed By: #### L IP, LACWB, IOCAL, PT, CDP, CHANDU, PTT, LIPR, CMPX ####[place] [address] Platelets Auto #/vol (Bld) 260 10*3/uL Normal 138-453 [facility] Comment on above: Performed By: #### L IP, LACWB, IOCAL, PT, CDP, CHANDU, PTT, LIPR, CMPX ####[place] [address] RBC Auto #/vol (Bld) 4.07 10*6/uL Normal 3.95-5.11 [facility] Comment on above: Performed By: #### L IP, LACWB, IOCAL, PT, CDP, CHANDU, PTT, LIPR, CMPX ####[address] [address] WBC Auto #/vol (Bld) 15.7 10*3/uL High 3.5-11.3 [facility] Comment on above: Performed By: #### L IP, LACWB, IOCAL, PT, CDP, CHANDU, PTT, LIPR, CMPX ####[place] [address] Auto Diff Performed NOT REPORTED Normal [facility] Comment on above: Performed By: #### L IP, LACWB, IOCAL, PT, CDP, CHANDU, PTT, LIPR, CMPX ####[facility] [address] [place] [address] Platelets Auto #/vol (Bld) NOT REPORTED Normal [facility] Comment on above: Performed By: #### L IP, LACWB, IOCAL, PT, CDP, CHANDU, PTT, LIPR, CMPX ####[facility] [address] [place] [address] RBC morphology finding Nom (Bld) NOT REPORTED Normal [facility] Comment on above: Performed By: #### L IP, LACWB, IOCAL, PT, CDP, CHANDU, PTT, LIPR, CMPX ####[facility] [address] [place] [address] WBC Morphology NOT REPORTED Normal [facility] Comment on above: Performed By: #### L IP, LACWB, IOCAL, PT, CDP, CHANDU, PTT, LIPR, CMPX ####[facility] [id number] [place] [address] ABDOMEN PELVIS W IV CONTR Sukumar [...] radiation dose to as low as reasonablyachievable.COMP ARIEL:10/30/2017HISTORY: ORDERING SYSTEM PROVIDED HISTORY: necrotic pancreatitis seen [...] process. This appears new compared to prior of10/30/2017.2. Changes of necrotizing pancreatitis with air in the expected location ofthe pancreatic body.3. Notable mesenteric fat stranding around the pancreas4. Ascites and anasarca.Interpreted by:VIRGIL Woodsigned by:Abhishek Cat MD11/03/inal result Normal [facility] Calcium, Ionicon 11-03-2017 Calcium mass conc 1.21 mmol/L Normal 1.13-1.33 [facility] Comment on above: Performed By: #### L IP, LACWB, IOCAL, PT, CDP, CHANDU, PTT, LIPR, CMPX ####[address] [place] [address] Comp Metabolic Pr/rfx MGon 0 11-03-2017 (cont.) Normal [facility] Comment on above: Result Comment: Aver age GFR for 60-69 years old: 85 mL/min/1.73sq mChronic Kidney Disease: <60 mL/min/1.73sq mKidney failure: <15 mL/min/1.73sq meGFR calculated using average adult body mass. Additional eGFR calculator available at:[email or web address]/multiple_crcl_2012.htm Performed By: #### L IP, LACWB, IOCAL, PT, CDP, CHANDU, PTT, LIPR, CMPX ####[facility] [id number] Albumin mass conc 2.3 g/dL Low 3.5-5.2 [facility] Comment on above: Performed By: #### L IP, LACWB, IOCAL, PT, CDP, CHANDU, PTT, LIPR, CMPX ####[address] [place] [address] Albumin/Globulin mass ratio 0.7 {ratio} Low 1.0-2.5 [facility] Comment on above: Performed By: #### L IP, LACWB, IOCAL, PT, CDP, CHANDU, PTT, LIPR, CMPX ####[address] [place] [address] Alkaline Phos 84 U/L Normal 35-104 [facility] Comment on above: Performed By: #### L IP, LACWB, IOCAL, PT, CDP, CHANDU, PTT, LIPR, CMPX ####[address] [address] ALT enzyme act/vol 44 U/L High 5-33 [facility] Comment on above: Performed By: #### L IP, LACWB, IOCAL, PT, CDP, CHANDU, PTT, LIPR, CMPX ####[address] [place] [address] Anion gap 3 molar conc 12 mmol/L Normal 9-17 [facility] Comment on above: Performed By: #### L IP, LACWB, IOCAL, PT, CDP, CHANDU, PTT, LIPR, CMPX ####[address] [place] [address] AST enzyme act/vol 43 U/L High <32 [facility] Comment on above: Performed By: #### L IP, LACWB, IOCAL, PT, CDP, CHANDU, PTT, LIPR, CMPX ####[address] [address] Bilirubin Ql (U) 0.51 mg/dL Normal 0.3-1.2 [facility] Comment on above: Performed By: #### L IP, LACWB, IOCAL, PT, CDP, CHANDU, PTT, LIPR, CMPX ####[address] [place] [address] Calcium mass conc 8.3 mg/dL Low 8.6-10.4 [facility] Comment on above: Performed By: #### L IP, LACWB, IOCAL, PT, CDP, CHANDU, PTT, LIPR, CMPX ####[address] [place] [address] Chloride molar conc 106 mmol/L Normal 98-107 [facility] Comment on above: Performed By: #### L IP, LACWB, IOCAL, PT, CDP, CHANDU, PTT, LIPR, CMPX ####[address] [address] CO2 molar conc 23 mmol/L Normal 20-31 [facility] Comment on above: Performed By: #### L IP, LACWB, IOCAL, PT, CDP, CHANDU, PTT, LIPR, CMPX ####[address] [place] [address] Creatinine mass conc 0.90 mg/dL Normal 0.50-0.90 [facility] Comment on above: Performed By: #### L IP, LACWB, IOCAL, PT, CDP, CHANDU, PTT, LIPR, CMPX ####[address] [place] [address] GFR, Amer >60 Normal >60 [facility] Comment on above: Performed By: #### L IP, LACWB, IOCAL, PT, CDP, CHANDU, PTT, LIPR, CMPX ####[address] [place] [address] GFR,non Amer >60 Normal >60 [facility] Comment on above: Performed By: #### L IP, LACWB, IOCAL, PT, CDP, CHANDU, PTT, LIPR, CMPX ####[facility] [place] [address] Glucose mass conc 151 mg/dL High 70-99 [facility] Comment on above: Performed By: #### L IP, LACWB, IOCAL, PT, CDP, CHANDU, PTT, LIPR, CMPX ####[facility] [address] [place] [address] Potassium molar conc 3.8 mmol/L Normal 3.7-5.3 [facility] Comment on above: Performed By: #### L IP, LACWB, IOCAL, PT, CDP, CHANDU, PTT, LIPR, CMPX ####[address] [place] [address] Protein mass conc 5.7 g/dL Low 6.4-8.3 [facility] Comment on above: Performed By: #### L IP, LACWB, IOCAL, PT, CDP, CHANDU, PTT, LIPR, CMPX ####[facility] [address] [place] [address] Sodium molar conc 141 mmol/L Normal 135-144 [facility] Comment on above: Performed By: #### L IP, LACWB, IOCAL, PT, CDP, CHANDU, PTT, LIPR, CMPX ####[facility] [address] [place] [address] Urea nitrogen mass conc 26 mg/dL High 8-23 [facility] Comment on above: Performed By: #### L IP, LACWB, IOCAL, PT, CDP, CHANDU, PTT, LIPR, CMPX ####[facility] [place] [address] BUN/CRE Ratio NOT REPORTED Normal 9-20 [facility] Comment on above: Performed By: #### L IP, LACWB, IOCAL, PT, CDP, CHANDU, PTT, LIPR, CMPX ####[facility] [address] [place] [address] Staging: NOT REPORTED Normal [facility] Comment on above: Performed By: #### L IP, LACWB, IOCAL, PT, CDP, CHANDU, PTT, LIPR, CMPX ####[facility] [address] [place] [address] Cult,Urine,Cathon 11-03-2017 Cult,Urine,Cath Specimen Description .CATHETERIZED URINE Special Requests NOT REPORTED Culture NO GROWTH Report Status FINAL 11/02/2017 Normal [facility] Comment on above: Performed By: #### L IP, LACWB, IOCAL, PT, CDP, CHANDU, PTT, LIPR, CMPX ####[address] [place] [address] Discharge Summaryon 11-04-19 18 HIM IP Note OR Entry Level Sales Associate Normal [facility] Plan of Careon 11-03-2017 HIM IP Note OR Entry Level Sales Associate Normal [facility] HIM IP Note OR Entry Level Sales Associate Normal [facility] Progress Noteon 11-03-2017 HIM IP Note OR Entry Level Sales Associate Normal [facility] HIM IP Note OR Entry Level Sales Associate Normal [facility] HIM IP Note OR Entry Level Sales Associate Normal [facility] HIM IP Note OR Entry Level Sales Associate Normal [facility] XR ABDOMEN (KUB) (SINGLE AP VIEW)on 11-03-2017 XR ABDOMEN (KUB) (SINGLE AP VIEW) EXAMINATION:SINGLE SUPINE XRAY VIEW(S) OF THE ABDOMEN11/03/2017 8:42 amCOMPARISON:CT abdomen pelvis from 10/30/2017HISTORY:JOE SANCHEZ PROVIDED HISTORY: reeval ileusTECHNOLOGIST PROVIDED HISTORY:reeval [id number] female; re-evaluate ileusFINDINGS:Portable supine view of the abdomen.Enteric tube traverses the GE junction with distal tip overlying the midmidline abdomen, likely within the body of the stomach. Blunting of the leftcostophrenic angle may represent chronic pleural thickening versus smallleft-sided pleural effusion. Stable left basilar opacity, atelectasis,infiltrate, or mild scarring.gambling monitor leads overlie the abdomen. Mild diffuse degenerative [...] a licensed caregiver.Interpreted by:VIRGIL Gutierrezigned by:Braeden Chavez MD11/03/inal result Normal [facility] APTTon 11-02-2017 aPTT Coag time (Bld) 27.1 s Normal 20.5-30.5 [facility] Comment on above: Performed By: #### L IP, LACWB, IOCAL, PT, CDP, CHANDU, PTT, LIPR, CMPX ####[address] [place] [address] Amylaseon 11-02-2017 Amylase enzyme act/vol 104 U/L High 28-100 [facility] Comment on above: Performed By: #### L IP, LACWB, IOCAL, PT, CDP, CHANDU, PTT, LIPR, CMPX ####[place] [address] CBC with Diffon 11-02-2017 Abs. Basophil 0.00 k/uL Normal 0.00-0.20 [facility] Comment on above: Performed By: #### L IP, LACWB, IOCAL, PT, CDP, CHANDU, PTT, LIPR, CMPX ####[place] [address] Abs.Imm.Granulocyt e 0.14 k/uL Normal 0.00-0.30 [facility] Comment on above: Performed By: #### L IP, LACWB, IOCAL, PT, CDP, CHANDU, PTT, LIPR, CMPX ####[place] [address] Abs.Neutrophil (Seg) 11.01 k/uL High 1.50-8.10 [facility] Comment on above: Performed By: #### L IP, LACWB, IOCAL, PT, CDP, CHANDU, PTT, LIPR, CMPX ####[place] [address] Basophils/100 WBC Auto (Bld) 0 % Normal 0-2 [facility] Comment on above: Performed By: #### L IP, LACWB, IOCAL, PT, CDP, CHANDU, PTT, LIPR, CMPX ####[place] [address] Eosinophils Auto #/vol (Bld) 0.00 10*3/uL Normal 0.00-0.44 [facility] Comment on above: Performed By: #### L IP, LACWB, IOCAL, PT, CDP, CHANDU, PTT, LIPR, CMPX ####[address] [place] [address] Eosinophils/100 WBC Auto (Bld) 0 % Low 1-4 [facility] Comment on above: Performed By: #### L IP, LACWB, IOCAL, PT, CDP, CHANDU, PTT, LIPR, CMPX ####[place] [address] Immature granulocytes #/vol (Bld) 1 % High 0 [facility] Comment on above: Performed By: #### L IP, LACWB, IOCAL, PT, CDP, CHANDU, PTT, LIPR, CMPX ####[place] [address] Lymphocytes Auto #/vol (Bld) 1.09 10*3/uL Low 1.10-3.70 [facility] Comment on above: Performed By: #### L IP, LACWB, IOCAL, PT, CDP, CHANDU, PTT, LIPR, CMPX ####[place] [address] Lymphocytes/100 WBC Auto (Bld) 8 % Low 24-43 [facility] Comment on above: Performed By: #### L IP, LACWB, IOCAL, PT, CDP, CHANDU, PTT, LIPR, CMPX ####[place] [address] Monocytes Auto #/vol (Bld) 1.36 10*3/uL High 0.10-1.20 [facility] Comment on above: Performed By: #### L IP, LACWB, IOCAL, PT, CDP, CHANDU, PTT, LIPR, CMPX ####[place] [address] Monocytes/100 WBC Auto (Bld) 10 % Normal 3-12 [facility] Comment on above: Performed By: #### L IP, LACWB, IOCAL, PT, CDP, CHANDU, PTT, LIPR, CMPX ####[address] [address] Morphology Interp Víctor (Bld) ANISOCYTOSIS PRESENT Normal [facility] Comment on above: Result Comment: TOXI C GRANULATION PRESENT Performed By: #### L IP, LACWB, IOCAL, PT, CDP, CHANDU, PTT, LIPR, CMPX ####[address] [address] Neutrophil (Seg) 81 % High 36-65 [facility] Comment on above: Performed By: #### L IP, LACWB, IOCAL, PT, CDP, CHANDU, PTT, LIPR, CMPX ####[address] [address] NRBC Automated 0.0 per 100 WBC Normal 0.0 [facility] Comment on above: Performed By: #### L IP, LACWB, IOCAL, PT, CDP, CHANDU, PTT, LIPR, CMPX ####[address] [address] Platelet mean volume Auto Entitic volume (Bld) 11.5 fL Normal 8.1-13.5 [facility] Comment on above: Performed By: #### L IP, LACWB, IOCAL, PT, CDP, CHANDU, PTT, LIPR, CMPX ####[address] [address] Platelets Auto #/vol (Bld) 231 10*3/uL Normal 138-453 [facility] Comment on above: Performed By: #### L IP, LACWB, IOCAL, PT, CDP, CHANDU, PTT, LIPR, CMPX ####[address] [address] WBC Auto #/vol (Bld) 13.6 10*3/uL High 3.5-11.3 [facility] Comment on above: Performed By: #### L IP, LACWB, IOCAL, PT, CDP, CHANDU, PTT, LIPR, CMPX ####[address] [address] Erythrocyte distribution width Auto Ratio (RBC) 14.8 % High 11.8-14.4 [facility] Comment on above: Performed By: #### L IP, LACWB, IOCAL, PT, CDP, CHANDU, PTT, LIPR, CMPX ####[address] [address] Hematocrit Auto Volume Fraction (Bld) 34.5 % Low 36.3-47.1 [facility] Comment on above: Performed By: #### L IP, LACWB, IOCAL, PT, CDP, CHANDU, PTT, LIPR, CMPX ####[address] [address] Hemoglobin mass conc (Bld) 10.3 g/dL Low 11.9-15.1 [facility] Comment on above: Performed By: #### L IP, LACWB, IOCAL, PT, CDP, CHANDU, PTT, LIPR, CMPX ####[address] [address] MCH Auto Entitic mass (RBC) 26.3 pg Normal 25.2-33.5 [facility] Comment on above: Performed By: #### L IP, LACWB, IOCAL, PT, CDP, CHANDU, PTT, LIPR, CMPX ####[address] [address] MCHC Auto mass conc (RBC) 29.9 g/dL Normal 28.4-34.8 [facility] Comment on above: Performed By: #### L IP, LACWB, IOCAL, PT, CDP, CHANDU, PTT, LIPR, CMPX ####[address] [address] MCV Auto Entitic volume (RBC) 88.0 fL Normal 82.6-102.9 [facility] Comment on above: Performed By: #### L IP, LACWB, IOCAL, PT, CDP, CHANDU, PTT, LIPR, CMPX ####[address] [address] RBC Auto #/vol (Bld) 3.92 10*6/uL Low 3.95-5.11 [facility] Comment on above: Performed By: #### L IP, LACWB, IOCAL, PT, CDP, CHANDU, PTT, LIPR, CMPX ####[place] [address] Auto Diff Performed NOT REPORTED Normal [facility] Comment on above: Performed By: #### L IP, LACWB, IOCAL, PT, CDP, CHANDU, PTT, LIPR, CMPX ####[place] [address] Platelets Auto #/vol (Bld) NOT REPORTED Normal [facility] Comment on above: Performed By: #### L IP, LACWB, IOCAL, PT, CDP, CHANDU, PTT, LIPR, CMPX ####[address] [address] RBC morphology finding Nom (Bld) NOT REPORTED Normal [facility] Comment on above: Performed By: #### L IP, LACWB, IOCAL, PT, CDP, CHANDU, PTT, LIPR, CMPX ####[address] [address] WBC Morphology NOT REPORTED Normal [facility] Comment on above: Performed By: #### L IP, LACWB, IOCAL, PT, CDP, CHANDU, PTT, LIPR, CMPX ####[address] [address] Abs. Basophil 0.00 k/uL Normal 0.0-0.2 [facility] Comment on above: Performed By: #### L IP, LACWB, IOCAL, PT, CDP, CHANDU, PTT, LIPR, CMPX ####[address] [address] Abs.Imm.Granulocyt e 0.12 k/uL Normal 0.00-0.30 [facility] Comment on above: Performed By: #### L IP, LACWB, IOCAL, PT, CDP, CHANDU, PTT, LIPR, CMPX ####[place] [address] Abs.Neutrophil (Seg) 9.24 k/uL High 1.8-7.7 [facility] Comment on above: Performed By: #### L IP, LACWB, IOCAL, PT, CDP, CHANDU, PTT, LIPR, CMPX ####[place] [address] Basophils/100 WBC Auto (Bld) 0 % Normal 0-2 [facility] Comment on above: Performed By: #### L IP, LACWB, IOCAL, PT, CDP, CHANDU, PTT, LIPR, CMPX ####[address] [address] Eosinophils Auto #/vol (Bld) 0.00 10*3/uL Normal 0.0-0.4 [facility] Comment on above: Performed By: #### L IP, LACWB, IOCAL, PT, CDP, CHANDU, PTT, LIPR, CMPX ####[address] [address] Eosinophils/100 WBC Auto (Bld) 0 % Low 1-4 [facility] Comment on above: Performed By: #### L IP, LACWB, IOCAL, PT, CDP, CHANDU, PTT, LIPR, CMPX ####[address] [address] Immature granulocytes #/vol (Bld) 1 % High 0 [facility] Comment on above: Performed By: #### L IP, LACWB, IOCAL, PT, CDP, CHANDU, PTT, LIPR, CMPX ####[address] [address] Lymphocytes Auto #/vol (Bld) 1.05 10*3/uL Normal 1.0-4.8 [facility] Comment on above: Performed By: #### L IP, LACWB, IOCAL, PT, CDP, CHANDU, PTT, LIPR, CMPX ####[address] [address] Lymphocytes/100 WBC Auto (Bld) 9 % Low 24-44 [facility] Comment on above: Performed By: #### L IP, LACWB, IOCAL, PT, CDP, CHANDU, PTT, LIPR, CMPX ####[address] [address] Monocytes Auto #/vol (Bld) 1.29 10*3/uL High 0.1-0.8 [facility] Comment on above: Performed By: #### L IP, LACWB, IOCAL, PT, CDP, CHANDU, PTT, LIPR, CMPX ####[address] [address] Monocytes/100 WBC Auto (Bld) 11 % High 1-7 [facility] Comment on above: Performed By: #### L IP, LACWB, IOCAL, PT, CDP, CHANDU, PTT, LIPR, CMPX ####[address] [address] Morphology Interp Víctor (Bld) ANISOCYTOSIS PRESENT Normal [facility] Comment on above: Performed By: #### L IP, LACWB, IOCAL, PT, CDP, CHANDU, PTT, LIPR, CMPX ####[address] [address] Neutrophil (Seg) 79 % High 36-66 [facility] Comment on above: Performed By: #### L IP, LACWB, IOCAL, PT, CDP, CHANDU, PTT, LIPR, CMPX ####[address] [address] NRBC Automated 0.0 per 100 WBC Normal 0.0 [facility] Comment on above: Performed By: #### L IP, LACWB, IOCAL, PT, CDP, CHANDU, PTT, LIPR, CMPX ####[address] [address] Platelet mean volume Auto Entitic volume (Bld) 11.8 fL Normal 8.1-13.5 [facility] Comment on above: Performed By: #### L IP, LACWB, IOCAL, PT, CDP, CHANDU, PTT, LIPR, CMPX ####[address] [address] Platelets Auto #/vol (Bld) 201 10*3/uL Normal 138-453 [facility] Comment on above: Performed By: #### L IP, LACWB, IOCAL, PT, CDP, CHANDU, PTT, LIPR, CMPX ####[address] [address] WBC Auto #/vol (Bld) 11.7 10*3/uL High 3.5-11.3 [facility] Comment on above: Performed By: #### L IP, LACWB, IOCAL, PT, CDP, CHANDU, PTT, LIPR, CMPX ####[address] [address] Erythrocyte distribution width Auto Ratio (RBC) 14.7 % High 11.8-14.4 [facility] Comment on above: Performed By: #### L IP, LACWB, IOCAL, PT, CDP, CHANDU, PTT, LIPR, CMPX ####[address] [address] Hematocrit Auto Volume Fraction (Bld) 33.3 % Low 36.3-47.1 [facility] Comment on above: Performed By: #### L IP, LACWB, IOCAL, PT, CDP, CHANDU, PTT, LIPR, CMPX ####[address] [address] Hemoglobin mass conc (Bld) 10.3 g/dL Low 11.9-15.1 [facility] Comment on above: Performed By: #### L IP, LACWB, IOCAL, PT, CDP, CHANDU, PTT, LIPR, CMPX ####[place] [address] MCH Auto Entitic mass (RBC) 27.0 pg Normal 25.2-33.5 [facility] Comment on above: Performed By: #### L IP, LACWB, IOCAL, PT, CDP, CHANDU, PTT, LIPR, CMPX ####[address] [address] MCHC Auto mass conc (RBC) 30.9 g/dL Normal 28.4-34.8 [facility] Comment on above: Performed By: #### L IP, LACWB, IOCAL, PT, CDP, CHANDU, PTT, LIPR, CMPX ####[address] [address] MCV Auto Entitic volume (RBC) 87.4 fL Normal 82.6-102.9 [facility] Comment on above: Performed By: #### L IP, LACWB, IOCAL, PT, CDP, CHANDU, PTT, LIPR, CMPX ####[address] [address] RBC Auto #/vol (Bld) 3.81 10*6/uL Low 3.95-5.11 [facility] Comment on above: Performed By: #### L IP, LACWB, IOCAL, PT, CDP, CHANDU, PTT, LIPR, CMPX ####[address] [address] Auto Diff Performed NOT REPORTED Normal [facility] Comment on above: Performed By: #### L IP, LACWB, IOCAL, PT, CDP, CHANDU, PTT, LIPR, CMPX ####[address] [address] Platelets Auto #/vol (Bld) NOT REPORTED Normal [facility] Comment on above: Performed By: #### L IP, LACWB, IOCAL, PT, CDP, CHANDU, PTT, LIPR, CMPX ####[address] [address] RBC morphology finding Nom (Bld) NOT REPORTED Normal [facility] Comment on above: Performed By: #### L IP, LACWB, IOCAL, PT, CDP, CHANDU, PTT, LIPR, CMPX ####[address] [address] WBC Morphology NOT REPORTED Normal [facility] Comment on above: Performed By: #### L IP, LACWB, IOCAL, PT, CDP, CHANDU, PTT, LIPR, CMPX ####[address] [address] Calcium, Ionicon 11-02-2017 Calcium mass conc 1.08 mmol/L Low 1.13-1.33 [facility] Comment on above: Performed By: #### L IP, LACWB, IOCAL, PT, CDP, CHANDU, PTT, LIPR, CMPX ####[address] [address] Comp Metabolic Pr/rfx MGon 0 11-02-2017 (cont.) Normal [facility] Comment on above: Result Comment: Aver age GFR for 60-69 years old: 85 mL/min/1.73sq mChronic Kidney Disease: <60 mL/min/1.73sq mKidney failure: <15 mL/min/1.73sq meGFR calculated using average adult body mass. Additional eGFR calculator available at:http://www.[employer]/multiple_crcl_2012.htm Performed By: #### L IP, LACWB, IOCAL, PT, CDP, CHANDU, PTT, LIPR, CMPX ####[address] [address] Albumin mass conc 2.5 g/dL Low 3.5-5.2 [facility] Comment on above: Performed By: #### L IP, LACWB, IOCAL, PT, CDP, CHANDU, PTT, LIPR, CMPX ####[address] [place] [address] Albumin/Globulin mass ratio 0.7 {ratio} Low 1.0-2.5 [facility] Comment on above: Performed By: #### L IP, LACWB, IOCAL, PT, CDP, CHANDU, PTT, LIPR, CMPX ####[address] [place] [address] Alkaline Phos 74 U/L Normal 35-104 [facility] Comment on above: Performed By: #### L IP, LACWB, IOCAL, PT, CDP, CHANDU, PTT, LIPR, CMPX ####[address] [place] [address] ALT enzyme act/vol 63 U/L High 5-33 [facility] Comment on above: Performed By: #### L IP, LACWB, IOCAL, PT, CDP, CHANDU, PTT, LIPR, CMPX ####[address] [place] [address] Anion gap 3 molar conc 14 mmol/L Normal 9-17 [facility] Comment on above: Performed By: #### L IP, LACWB, IOCAL, PT, CDP, CHANDU, PTT, LIPR, CMPX ####[address] [place] [address] AST enzyme act/vol 33 U/L High <32 [facility] Comment on above: Performed By: #### L IP, LACWB, IOCAL, PT, CDP, CHANDU, PTT, LIPR, CMPX ####[address] [address] Bilirubin Ql (U) 0.80 mg/dL Normal 0.3-1.2 [facility] Comment on above: Performed By: #### L IP, LACWB, IOCAL, PT, CDP, CHANDU, PTT, LIPR, CMPX ####[address] [address] Calcium mass conc 8.1 mg/dL Low 8.6-10.4 [facility] Comment on above: Performed By: #### L IP, LACWB, IOCAL, PT, CDP, CHANDU, PTT, LIPR, CMPX ####[address] [place] [address] Chloride molar conc 105 mmol/L Normal 98-107 [facility] Comment on above: Performed By: #### L IP, LACWB, IOCAL, PT, CDP, CHANDU, PTT, LIPR, CMPX ####[address] [address] CO2 molar conc 22 mmol/L Normal 20-31 [facility] Comment on above: Performed By: #### L IP, LACWB, IOCAL, PT, CDP, CHANDU, PTT, LIPR, CMPX ####[facility] [id number] [place] [address] Creatinine mass conc 0.85 mg/dL Normal 0.50-0.90 [facility] Comment on above: Performed By: #### L IP, LACWB, IOCAL, PT, CDP, CHANDU, PTT, LIPR, CMPX ####[address] [place] [address] GFR, Amer >60 Normal >60 [facility] Comment on above: Performed By: #### L IP, LACWB, IOCAL, PT, CDP, CHANDU, PTT, LIPR, CMPX ####[address] [address] GFR,non Amer >60 Normal >60 [facility] Comment on above: Performed By: #### L IP, LACWB, IOCAL, PT, CDP, CHANDU, PTT, LIPR, CMPX ####[address] [place] [address] Glucose mass conc 118 mg/dL High 70-99 [facility] Comment on above: Performed By: #### L IP, LACWB, IOCAL, PT, CDP, CHANDU, PTT, LIPR, CMPX ####[facility] [place] [address] Potassium molar conc 3.8 mmol/L Normal 3.7-5.3 [facility] Comment on above: Performed By: #### L IP, LACWB, IOCAL, PT, CDP, CHANDU, PTT, LIPR, CMPX ####[address] [place] [address] Protein mass conc 5.9 g/dL Low 6.4-8.3 [facility] Comment on above: Performed By: #### L IP, LACWB, IOCAL, PT, CDP, CHANDU, PTT, LIPR, CMPX ####[facility] [address] [place] [address] Sodium molar conc 141 mmol/L Normal 135-144 [facility] Comment on above: Performed By: #### L IP, LACWB, IOCAL, PT, CDP, CHANDU, PTT, LIPR, CMPX ####[address] [place] [address] Urea nitrogen mass conc 17 mg/dL Normal 8-23 [facility] Comment on above: Performed By: #### L IP, LACWB, IOCAL, PT, CDP, CHANDU, PTT, LIPR, CMPX ####[address] [place] [address] BUN/CRE Ratio NOT REPORTED Normal - [facility] Comment on above: Performed By: #### L IP, LACWB, IOCAL, PT, CDP, CHANDU, PTT, LIPR, CMPX ####[address] [place] [address] Staging: NOT REPORTED Normal [facility] Comment on above: Performed By: #### L IP, LACWB, IOCAL, PT, CDP, CHANDU, PTT, LIPR, CMPX ####[address] [place] [address] (cont.) Normal [facility] Comment on above: Result Comment: Aver age GFR for 60-69 years old: 85 mL/min/1.73sq mChronic Kidney Disease: <60 mL/min/1.73sq mKidney failure: <15 mL/min/1.73sq meGFR calculated using average adult body mass. Additional eGFR calculator available at:http://www.[employer]/multiple_crcl_2012.htm Performed By: #### L IP, LACWB, IOCAL, PT, CDP, CHANDU, PTT, LIPR, CMPX ####[address] [place] [address] Albumin mass conc 2.4 g/dL Low 3.5-5.2 [facility] Comment on above: Performed By: #### L IP, LACWB, IOCAL, PT, CDP, CHANDU, PTT, LIPR, CMPX ####[address] [place] [address] Albumin/Globulin mass ratio 0.7 {ratio} Low 1.0-2.5 [facility] Comment on above: Performed By: #### L IP, LACWB, IOCAL, PT, CDP, CHANDU, PTT, LIPR, CMPX ####[address] [place] [address] Alkaline Phos 73 U/L Normal 35-104 [facility] Comment on above: Performed By: #### L IP, LACWB, IOCAL, PT, CDP, CHANDU, PTT, LIPR, CMPX ####[facility] [id number] [place] [address] ALT enzyme act/vol 71 U/L High 5-33 [facility] Comment on above: Performed By: #### L IP, LACWB, IOCAL, PT, CDP, CHANDU, PTT, LIPR, CMPX ####[address] [place] [address] Anion gap 3 molar conc 9 mmol/L Normal 9-17 [facility] Comment on above: Performed By: #### L IP, LACWB, IOCAL, PT, CDP, CHANDU, PTT, LIPR, CMPX ####[address] [place] [address] AST enzyme act/vol 34 U/L High <32 [facility] Comment on above: Performed By: #### L IP, LACWB, IOCAL, PT, CDP, CHANDU, PTT, LIPR, CMPX ####[address] [address] Bilirubin Ql (U) 0.87 mg/dL Normal 0.3-1.2 [facility] Comment on above: Performed By: #### L IP, LACWB, IOCAL, PT, CDP, CHANDU, PTT, LIPR, CMPX ####[address] [place] [address] Calcium mass conc 7.8 mg/dL Low 8.6-10.4 [facility] Comment on above: Performed By: #### L IP, LACWB, IOCAL, PT, CDP, CHANDU, PTT, LIPR, CMPX ####[place] [address] Chloride molar conc 108 mmol/L High 98-107 [facility] Comment on above: Performed By: #### L IP, LACWB, IOCAL, PT, CDP, CHANDU, PTT, LIPR, CMPX ####[place] [address] CO2 molar conc 22 mmol/L Normal 20-31 [facility] Comment on above: Performed By: #### L IP, LACWB, IOCAL, PT, CDP, CHANDU, PTT, LIPR, CMPX ####[address] [address] Creatinine mass conc 0.77 mg/dL Normal 0.50-0.90 [facility] Comment on above: Performed By: #### L IP, LACWB, IOCAL, PT, CDP, CHANDU, PTT, LIPR, CMPX ####[place] [address] GFR, Amer >60 Normal >60 [facility] Comment on above: Performed By: #### L IP, LACWB, IOCAL, PT, CDP, CHANDU, PTT, LIPR, CMPX ####[facility] [address] [place] [address] GFR,non Amer >60 Normal >60 [facility] Comment on above: Performed By: #### L IP, LACWB, IOCAL, PT, CDP, CHANDU, PTT, LIPR, CMPX ####[facility] [address] [place] [address] Glucose mass conc 100 mg/dL High 70-99 [facility] Comment on above: Performed By: #### L IP, LACWB, IOCAL, PT, CDP, CHANDU, PTT, LIPR, CMPX ####[facility] [place] [address] Potassium molar conc 3.7 mmol/L Normal 3.7-5.3 [facility] Comment on above: Performed By: #### L IP, LACWB, IOCAL, PT, CDP, CHANDU, PTT, LIPR, CMPX ####[facility] [address] [place] [address] Protein mass conc 5.7 g/dL Low 6.4-8.3 [facility] Comment on above: Performed By: #### L IP, LACWB, IOCAL, PT, CDP, CHANDU, PTT, LIPR, CMPX ####[address] [place] [address] Sodium molar conc 139 mmol/L Normal 135-144 [facility] Comment on above: Performed By: #### L IP, LACWB, IOCAL, PT, CDP, CHANDU, PTT, LIPR, CMPX ####[facility] [address] [place] [address] Urea nitrogen mass conc 14 mg/dL Normal 8-23 [facility] Comment on above: Performed By: #### L IP, LACWB, IOCAL, PT, CDP, CHANDU, PTT, LIPR, CMPX ####[facility] [address] [place] [address] BUN/CRE Ratio NOT REPORTED Normal 11-01 [facility] Comment on above: Performed By: #### L IP, LACWB, IOCAL, PT, CDP, CHANDU, PTT, LIPR, CMPX ####[facility] [address] [place] [address] Staging: NOT REPORTED Normal [facility] Comment on above: Performed By: #### L IP, LACWB, IOCAL, PT, CDP, CHANDU, PTT, LIPR, CMPX ####[address] [address] Consulton 11-02-2017 HIM IP Note OR Entry Level Sales Associate Normal [facility] Hgb/Hcton 11-02-2017 Hematocrit Auto Volume Fraction (Bld) 35.4 % Low 36.3-47.1 [facility] Comment on above: Performed By: #### L IP, LACWB, IOCAL, PT, CDP, CHANDU, PTT, LIPR, CMPX ####[address] [place] [address] Hemoglobin mass conc (Bld) 10.6 g/dL Low 11.9-15.1 [facility] Comment on above: Performed By: #### L IP, LACWB, IOCAL, PT, CDP, CHANDU, PTT, LIPR, CMPX ####[facility] [address] [place] [address] Hematocrit Auto Volume Fraction (Bld) 34.1 % Low 36.3-47.1 [facility] Comment on above: Performed By: #### L IP, LACWB, IOCAL, PT, CDP, CHANDU, PTT, LIPR, CMPX ####[address] [place] [address] Hemoglobin mass conc (Bld) 10.4 g/dL Low 11.9-15.1 [facility] Comment on above: Performed By: #### L IP, LACWB, IOCAL, PT, CDP, CHANDU, PTT, LIPR, CMPX ####[address] [place] [address] Lactic Acid,Whole Blon 11-02 Lactic Acid,Whole Bl 1.1 mmol/L Normal 0.7-2.1 [facility] Comment on above: Performed By: #### L IP, LACWB, IOCAL, PT, CDP, CHANDU, PTT, LIPR, CMPX ####[address] [place] [address] Lipaseon 11-02-2017 Lipase enzyme act/vol 54 U/L Normal 13-60 [facility] Comment on above: Performed By: #### L IP, LACWB, IOCAL, PT, CDP, CHANDU, PTT, LIPR, CMPX ####[address] [address] Lipid Profileon 11-02-2017 Cholesterol in HDL mass conc 16 mg/dL Low >40 [facility] Comment on above: Result Comment: HDL Guidelines: <40 Undesirable 40-59 Borderline >59 Desirable Performed By: #### L IP, LACWB, IOCAL, PT, CDP, CHANDU, PTT, LIPR, CMPX ####[address] [place] [address] Cholesterol in LDL mass conc 55 mg/dL Normal 0-130 [facility] Comment on above: Result Comment: LDL Guidelines: <100 Desirable 100-129 Near to/above Desirable 130-159 Borderline >159 UndesirableDirect (measured) LDL and calculated LDL are not interchangeable tests. Performed By: #### L IP, LACWB, IOCAL, PT, CDP, CHANDU, PTT, LIPR, CMPX ####[address] [place] [address] Cholesterol mass conc 96 mg/dL Normal <200 [facility] Comment on above: Result Comment: Chol esterol Guidelines: <200 Desirable 200-240 Borderline >240 Undesirable Performed By: #### L IP, LACWB, IOCAL, PT, CDP, CHANDU, PTT, LIPR, CMPX ####[address] [address] Cholesterol.total/ Cholesterol in HDL mass ratio 6.0 {ratio} High <5 [facility] Comment on above: Performed By: #### L IP, LACWB, IOCAL, PT, CDP, CHANDU, PTT, LIPR, CMPX ####[facility] [address] [place] [address] Triglyceride mass conc 127 mg/dL Normal <150 [facility] Comment on above: Result Comment: Trig lyceride Guidelines: <150 Desirable 150- 199 Borderline 200-499 High >499 Very high Based on AHA Guidelines for fasting triglyceride, November 2011. Performed By: #### L IP, LACWB, IOCAL, PT, CDP, CHANDU, PTT, LIPR, CMPX ####[address] [address] Cholesterol in VLDL mass conc NOT REPORTED Normal 1-30 [facility] Comment on above: Performed By: #### L IP, LACWB, IOCAL, PT, CDP, CHANDU, PTT, LIPR, CMPX ####[address] [place] [address] MRSA, DNA, Nasalon 8 MRSA, DNA, Nasal NEGATIVE: MRSA DNA n ot detected by nucleic acid amplification. Normal NMRSAA [facility] Comment on above: Result Comment: Resu lts should be used as an adjunct to nosocomial control efforts to identify patients needing enhanced precautions.The test is not intended to identify patients with staphylococcal infections. Results should not be used to guide or monitor treatment for MRSA infections. Performed By: #### L IP, LACWB, IOCAL, PT, CDP, CHANDU, PTT, LIPR, CMPX ####[address] [place] [address] Magnesiumon 11-02-2017 Magnesium mass conc 2.2 mg/dL Normal 1.6-2.6 [facility] Comment on above: Performed By: #### L IP, LACWB, IOCAL, PT, CDP, CHANDU, PTT, LIPR, CMPX ####[facility] [address] [place], [place] [id number] PTon 11-02-2017 INR Coag RelTime (PPP) 1.0 {INR} Normal [facility] Comment on above: Result Comment: Ther apeutic Range: Moderate Anticoagulant Intensity: INR = 2.0-3.0 High Anticoagulant Intensity: INR = 2.5-3.5 Performed By: #### L IP, LACWB, IOCAL, PT, CDP, CHANDU, PTT, LIPR, CMPX ####[address] [place], [place] [id number] Prothrombin time (PT) Coag time (PPP) 10.5 s Normal 9.0-12.0 [facility] Comment on above: Performed By: #### L IP, LACWB, IOCAL, PT, CDP, CHANDU, PTT, LIPR, CMPX ####[address] [id number] Plan of Careon 11-02-2017 HIM IP Note OR Entry Level Sales Associate Normal [facility] HIM IP Note OR Entry Level Sales Associate Normal [facility] Progress Noteon 11-02-2017 HIM IP Note OR Entry Level Sales Associate Normal [facility] HIM IP Note OR Entry Level Sales Associate Normal [facility] HIM IP Note OR Entry Level Sales Associate Normal [facility] HIM IP Note OR Entry Level Sales Associate Normal [facility] HIM IP Note OR Entry Level Sales Associate Normal [facility] XR ABDOMEN (KUB) (SINGLE AP VIEW)on 11-02-2017 XR ABDOMEN (KUB) (SINGLE AP VIEW) EXAMINATION:SINGLE SUPINE XRAY VIEW(S) OF THE ABDOMEN11/02/2017 4:47 pmCOMPARISON:Radiographs from 11/01/2017HISTORY:ORDERIN G SYSTEM PROVIDED HISTORY: abd distentionTECHNOLOGIST PROVIDED [...] favorsevere ileus.Interpreted by:Moses Tyson MDSigned by:Moses Tyson MD11/02/18Final result Normal [facility] Consulton 11-01-2017 HIM IP Note OR Entry Level Sales Associate Normal [facility] History and Physicalon 11-01 HIM IP Note OR Entry Level Sales Associate Normal [facility] MRSA, DNA, Nasalon Specimen Description .NASAL SWAB Normal [facility] Comment on above: Performed By: #### L IP, LACWB, IOCAL, PT, CDP, CHANDU, PTT, LIPR, CMPX ####[facility] [address] [place] [address] XR ABDOMEN (KUB) (SINGLE AP VIEW)on 11-01-2017 [...] most likelyrelated to clinically suspected ileus.Interpreted by:Olena Alexander DOSigned by:Olena Alexander DO11/01/18Final result Normal [facility] Vital Signs Date Time Vital Sign Value Performing Clinician Facility 04-16-2023 13:20-0500 Body mass index (BMI) [Ratio] 35.05 kg/m2 [facility]os [facility] [employer] 04-16-2023 13:20-0500 Body temperature 97.81 [degF] Samia Landeros MD Work Phone: [facility] 04-16-2023 13:20-0500 Body weight 91.17 kg Samia Landeros MD Work Phone: [facility] 04-16-2023 13:20-0500 Diastolic blood pressure 80 mm[Hg] Samia Landeros MD Work Phone: [facility] 04-16-2023 13:20-0500 Heart rate 84 /min Samia Landeros MD Work Phone: [facility] 04-16-2023 13:20-0500 Respiratory rate 16 /min Samia Landeros MD Work Phone: [facility] 04-16-2023 13:20-0500 Systolic blood pressure 142 mm[Hg] Samia Landeros MD Work Phone: [facility] 04-02-2023 11:14-0500 Body height 161.3 cm Samia Landeros MD Work Phone: [facility] 04-02-2023 11:14-0500 Body mass index (BMI) [Ratio] 36.44 kg/m2 Samia Landeros MD Work Phone: [facility] 04-02-2023 11:14-0500 Body weight 94.8 kg Samia Landeros MD Work Phone: [facility] 04-02-2023 11:14-0500 Diastolic blood pressure 80 mm[Hg] Samia Landeros MD Work Phone: [facility] 04-02-2023 11:14-0500 Heart rate 80 /min Samia Landeros MD Work Phone: [facility] 04-02-2023 11:14-0500 Respiratory rate 16 /min Samia Landeros MD Work Phone: [facility] 04-02-2023 11:14-0500 Systolic blood pressure 160 mm[Hg] Samia Landeros MD Work Phone: [facility] 03-12-2023 14:30-0500 Body height 160.02 cm Tondra Mapus Other [facility] 03-12-2023 14:30-0500 Body mass index (BMI) [Ratio] 36.89 kg/m2 Tondra Mapus Other [facility] Other 03-12-2023 14:30-0500 Body weight 94.48 kg Tondra Mapus Other [facility] 03-12-2023 14:30-0500 Diastolic blood pressure 82 mm[Hg] Tondra Mapus Other [facility] 03-12-2023 14:30-0500 Respiratory rate 18 /min Tondra Mapus Other [facility] Other 03-12-2023 14:30-0500 SaO2% (BldA) [Mass fraction] 94 % Tondra Mapus Other [facility] Other 03-12-2023 14:30-0500 Systolic blood pressure 155 mm[Hg] Tondra Mapus Other [facility] 11-27-2022 14:30-0400 Body height 160.02 cm Tondra Mapus Other [facility] Other 11-27-2022 14:30-0400 Body mass index (BMI) [Ratio] 36.26 kg/m2 Tondra Mapus Other [facility] Other 11-27-2022 14:30-0400 Body weight 92.85 kg Tondra Mapus Other [facility] Other 11-27-2022 14:30-0400 Diastolic blood pressure 75 mm[Hg] Tondra Mapus Other [facility] Other 11-27-2022 14:30-0400 Respiratory rate 18 /min Tondra Mapus Other [facility] Other 11-27-2022 14:30-0400 SaO2% (BldA) [Mass fraction] 95 % Tondra Mapus Other [facility] Other 11-27-2022 14:30-0400 Systolic blood pressure 142 mm[Hg] Tondra Mapus Other [facility] Other 08-28-2022 13:30-0400 Body height 160.02 cm Tondra Mapus Other [facility] Other 08-28-2022 13:30-0400 Body mass index (BMI) [Ratio] 34.68 kg/m2 Tondra Mapus Other [facility] Other 08-28-2022 13:30-0400 Body weight 88.81 kg Tondra Mapus Other [facility] Other 08-28-2022 13:30-0400 Diastolic blood pressure 86 mm[Hg] Tondra Mapus Other [facility] Other 08-28-2022 13:30-0400 Respiratory rate 18 /min Tondra Mapus Other [facility] Other 08-28-2022 13:30-0400 SaO2% (BldA) [Mass fraction] 96 % Tondra Mapus Other [facility] Other 08-28-2022 13:30-0400 Systolic blood pressure 157 mm[Hg] Tondra Mapus Other [facility] Other 05-24-2022 15:15-0400 Body height 160.02 cm Tondra Mapus Other [facility] Other 05-24-2022 15:15-0400 Body mass index (BMI) [Ratio] 33.65 kg/m2 Tondra Mapus Other [facility] Other 05-24-2022 15:15-0400 Body weight 86.18 kg Tondra Mapus Other [facility] Other 05-24-2022 15:15-0400 Diastolic blood pressure 78 mm[Hg] Tondra Mapus Other [facility] Other 05-24-2022 15:15-0400 Respiratory rate 18 /min Tondra Mapus Other [facility] Other 05-24-2022 15:15-0400 SaO2% (BldA) [Mass fraction] 98 % Tondra Mapus Other [facility] Other 05-24-2022 15:15-0400 Systolic blood pressure 164 mm[Hg] Tondra Mapus Other [facility] Other 04-26-2022 15:45-0400 Body height 160.02 cm Tondra Mapus Other [facility] Other 04-26-2022 15:45-0400 Body mass index (BMI) [Ratio] 33.35 kg/m2 Tondra Mapus Other [facility] Other 04-26-2022 15:45-0400 Body weight 85.41 kg Tondra Mapus Other [facility] Other 04-26-2022 15:45-0400 Diastolic blood pressure 84 mm[Hg] Tondra Mapus Other [facility] Other 04-26-2022 15:45-0400 Respiratory rate 18 /min Tondra Mapus Other [facility] Other 04-26-2022 15:45-0400 SaO2% (BldA) [Mass fraction] 96 % Tondra Mapus Other [facility] Other 04-26-2022 15:45-0400 Systolic blood pressure 154 mm[Hg] Tondra Mapus Other [facility] Other 02-20-2022 15:45-0500 Body height 160.02 cm Tondra Mapus Other [facility] Other 02-20-2022 15:45-0500 Body mass index (BMI) [Ratio] 32.47 kg/m2 Tondra Mapus Other [facility] Other 02-20-2022 15:45-0500 Body weight 83.14 kg Tondra Mapus Other [facility] Other 02-20-2022 15:45-0500 Diastolic blood pressure 91 mm[Hg] Tondra Mapus Other [facility] Other 02-20-2022 15:45-0500 Respiratory rate 18 /min Tondra Mapus Other [facility] Other 02-20-2022 15:45-0500 SaO2% (BldA) [Mass fraction] 96 % Tondra Mapus Other [facility] Other 02-20-2022 15:45-0500 Systolic blood pressure 160 mm[Hg] Tondra Mapus Other [facility] Other 01-16-2022 09:00-0500 Body height 160.02 cm Tondra Mapus Other [facility] Other 01-16-2022 09:00-0500 Body mass index (BMI) [Ratio] 31.92 kg/m2 Tondra Mapus Other [facility] Other 01-16-2022 09:00-0500 Body weight 81.74 kg Tondra Mapus Other [facility] Other 01-04-2022 12:00-0500 Body height 160.02 cm Tondra Mapus Other [facility] Other 01-04-2022 12:00-0500 Body mass index (BMI) [Ratio] 31.28 kg/m2 Tondra Mapus Other [facility] Other 01-04-2022 12:00-0500 Body weight 80.11 kg Tondra Mapus Other [facility] Other 01-04-2022 12:00-0500 Diastolic blood pressure 89 mm[Hg] Tondra Mapus Other [facility] Other 01-04-2022 12:00-0500 Respiratory rate 18 /min Tondra Saturninous Other [facility] Other 01-04-2022 12:00-0500 SaO2% (BldA) [Mass fraction] 98 % Tondra Mapus Other [facility] Other 01-04-2022 12:00-0500 Systolic blood pressure 154 mm[Hg] Tondra Mapus Other [facility] Other Encounters Encounter Date Encounter Type Care Provider Facility Start: 10-16-2023 End: 10-16-2023 ambulatory [facility] Start: 05-07-2023 Telephone encounter [facility] Start: 04-27-2023 Telephone encounter Yohana Keller LP N [facility] Start: 04-18-2023 Orders Only [facility] Start: 04-16-2023 End: 04-16-2023 Office outpatient visit 15 minutes [facility] L[facility]os [facility] Comment on above: Other acute sinusiti s, recurrence not specified (Primary Dx) Start: 04-16-2023 End: 04-16-2023 ambulatory [facility] Start: 04-02-2023 End: 04-02-2023 Office outpatient visit 15 minutes Samia Landeros MD Work Phone: [facility] Comment on above: Secondary diabetes m ellitus ([facility]) (Primary Dx); Necrotizing pancreatitis; Mixed hyperlipidemia; Essential hypertension, benign Start: 04-02-2023 End: 04-02-2023 ambulatory [facility] Start: 03-26-2023 Refill Samia carrasco MD Work Phone: [facility] Start: 03-23-2023 End: 03-23-2023 ambulatory Tondra Mapus Other [facility] Other Start: 03-23-2023 Telephone encounter Tondra Mapus Luis Carlos [facility] Start: 03-12-2023 End: 03-12-2023 Discharged Recurring MD [facility]os [facility] Work Phone: Start: 03-12-2023 (DM) Diabetes Tondra Mapus [facility] Start: 03-12-2023 End: 03-13-2023 ambulatory MD Samia Landeros Work Phone: [facility] Other Start: 03-12-2023 End: 03-12-2023 Patient encounter procedure MD Samia Landeros Work Phone: [facility] Start: 02-15-2023 Refill Samia carrasco MD Work Phone: [facility] Start: 01-01-2023 End: 01-01-2023 ambulatory Tondra Mapus Other [facility] Other Start: 01-01-2023 Telephone encounter Tondra Mapus Luis Carlos [facility] Start: 11-27-2022 (DM) Diabetes Tondra Mapus [facility] Start: 11-27-2022 End: 11-27-2022 ambulatory Tondra Mapus Other [facility] Other Start: 08-28-2022 (DM) Diabetes Tondra Mapus [facility] Start: 08-28-2022 End: 08-28-2022 ambulatory Tondra Mapus Other [facility] Other Start: 05-24-2022 (DM) Diabetes Tondra Mapus [facility] Start: 05-24-2022 End: 05-24-2022 ambulatory Tondra Mapus Other [facility] Other Start: 05-01-2022 End: 05-02-[address] SAMIA LANDEROS Facility: Start: 04-26-2022 (DM) Diabetes [facility] Start: 04-26-2022 End: 04-26-2022 ambulatory Tondra Mapus Other [facility] Other Start: 03-09-2022 End: 03-09-2022 ambulatory Tondra Mapus Other [facility] Other Start: 03-09-2022 Telephone encounter Tondra Mapus [facility] Start: 03-06-2022 End: 03-06-2022 ambulatory Tondra Mapus Other [facility] Other Start: 03-06-2022 Telephone encounter Tondra Mapus [facility] Start: 02-20-2022 (DM) Diabetes [facility] Map[facility] Start: 02-20-2022 End: 02-20-2022 ambulatory Tondra Mapus Other [facility] Other Start: 01-20-2022 End: 01-20-2022 ambulatory Tondra Mapus Other [facility] Other Start: 01-20-2022 Telephone encounter Tondra Mapus [facility] Start: 01-16-2022 End: 01-16-2022 ambulatory Tondra Mapus Other [facility] Other Start: 01-16-2022 Nursing evaluation o f patient and report Tondra Mapus [facility] Start: 01-16-2022 Telephone encounter Tondra Mapus [facility] Start: 01-13-2022 End: 01-13-2022 ambulatory Pk Grady MD Work Phone: General Surgery Comment on above: Secondary diabetes dean valentin ([facility]) (Primary Dx) Start: 01-13-2022 End: 01-13-2022 Telemedicine consultation with patient Pk Grady MD Work Phone: [facility] Start: 01-08-2022 End: 01-08-2022 ambulatory Boy Phillips Other [facility] Other Start: 01-08-2022 Telephone encounter Boy Phillips [facility] Start: 01-06-2022 End: 01-07-[address] SAMIA LANDEROS Facility:[facility] Start: 01-04-2022 End: 01-04-2022 ambulatory Boy Phillips Other [facility] Other Start: 01-04-2022 FQHC visit new patient Boy Phillips [facility] Start: 11-18-[address] SAMIA LANDEROS [facility] ity:[facility] Start: 11-14-2021 End: 11-14-2021 ambulatory Juanita Fletcher Other [facility] Other Start: 11-14-2021 Telephone encounter Juanita Aldridge [facility] Start: 11-08-2021 End: 11-09-[address] SAMIA LANDEROS Facility:[facility] Start: 10-24-2021 End: 10-25-[address] SAMIA LANDEROS Facility:[facility] Start: 11-01-2017 End: 11-04-2017 Evaluation and management of inpatient STEPH AVASTHI [facility] Procedures Date Procedure Procedure Detail Performing [...] STEPH AVASTHI Start: 11-01-2017 FULL CODE STEPH VICTOR Start: 11-01-2017 INITIATE OXYGEN THER APY PROTOCOL STEPH SALDANA Start: 11-01-2017 NOTIFY PHYSICIAN (SPECIFY) STEPH SALDANA Start: 11-01-2017 VITAL SIGNS STEPH VICTOR Start: 11-01-2017 MRSA DNA PROBE, NASAL S JOSÉ ANTONIO SALDANA Start: 11-01-2017 IP CONSULT TO GENERA L SURGERY STEPH SALDANA Start: 11-01-2017 PATIENT STATUS (DIRECT) STEPH SALDANA Plan of Treatment Date Care Activity Detail Author Start: 08-19-2026 DTaP,Tdap and Td Vaccines (2 - Td or Tdap) DTaP,Tdap and Td Vaccines (2 - Td or Tdap) [facility] Start: 08-19-2026 Urine microalbumin profile DTAP,TDAP,TD (2 - Td or Tdap) [facility] Start: 04-15-2024 Adult BMI Screening Adult BMI Screen ing [facility] Start: 04-02-2024 Adult BMI Screening Adult BMI Screen ing [facility] Start: 04-02-2024 Depression Screening Depression Scre ening [facility] Start: 04-02-2024 Fall Risk Screening Fall Risk Screen ing [facility] Start: 04-02-2024 Tobacco Screening Tobacco Screening [facility] Start: 12-15-2023 Glaucoma screening Diabetic Op hthalmology Exam [facility] Start: 10-16-2023 End: 10-16-2023 Patient encounter procedure 10/16/2023 3:00 PM EDT Office Visit [facility] [address] [place] [address] Samia Landeros MD [address] [place] [address] [facility] Start: 10-13-2023 Adult BMI Screening Adult BMI Screen ing [facility] Start: 10-13-2023 Medicare Annual Well ness Visit Medicare Annual Wellness Visit [facility] Start: 10-13-2023 Tobacco Screening Tobacco Screening [facility] Start: 10-11-2023 Depression Screening Depression Scre ening [facility] Start: 10-11-2023 Fall Risk Screening Fall Risk Screen ing [facility] Start: 09-05-2023 Urine screening for protein Urine Microalbumin [facility] Start: 04-23-2023 End: 04-23-2023 Clinical Support 04/23/2023 3:00 PM EDT Clinical Support [facility] [address] [place] [id number] [facility] Start: 04-13-2023 Diabetic foot examination Diabetic Foot Exam [facility] Start: 04-10-2023 End: 04-10-2023 Patient encounter procedure 04/10/2023 3:30 PM EST Office Visit [facility] [address] [place] [id number] Samia Landeros MD [address] [place], [place] [id number] [facility] Start: 04-02-2023 End: 04-02-2023 Patient encounter procedure 04/02/2023 11:15 AM EST Office Visit [facility] [address] [place] [id number] Samia Landeros MD [address] [place] [address] [facility] Start: 11-08-[address] [facility] Start: 11-08-2022 Screening for malign ant neoplasm of breast Mammogram [facility] Start: 10-13-2022 Influenza vaccination Influenza Vacc ine [facility] Start: 05-08-2022 Hemoglobin A1c/Hemoglobin.total in Blood HBA1C [facility] Start: 10-13-2021 Influenza vaccination INFLUENZA (#1) [facility] Start: 08-31-[address] [facility] Start: 08-31-2021 COLORECTAL CANCER SCREENING COLORECTAL CANCER SCREENING [facility] Start: 02-12-2021 DEPRESSION ASSESSMENT DEPRESSION ASS ESSMENT [facility] Start: 2007 Administration of varicella zoster vaccine Zoster (Shingles) Vaccine (1 of 2) [facility] Start: 2007 SHINGRIX VACCINE (1 of 2) SHINGRIX VACCINE (1 of 2) [facility] Start: 2002 COLOGUARD (FIT-DNA) COLOGUARD (FIT-D NA) [facility] Start: [address] COLONOGRAPHY [facility] Start: 2002 FECAL OCCULT BLOOD FECAL OCCULT BLOO D [facility] Start: 2002 SIGMOIDOSCOPY SIGMOIDOSCOPY [facility] Start: 1987 HPV TESTING HPV TESTING [facility] Start: 1978 PAP TESTING PAP TESTING 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 Start: 1975 BP CONTROLLED (<130/80) BP CONTROLLE D (<130/80) [facility] Start: 1975 Hepatitis B surface antibody level LDL CHOLESTEROL [facility] Start: 1975 HEPATITIS C SCREENING HEPATITIS C SC REENING [facility] Start: 1975 HIV SCREENING HIV SCREENING [facility] Start: 1967 3 comp foot exam completed DIABETIC FOOT EXAM [facility] Start: 1967 Hepatitis B screening URINE ALBUMIN:CREATININE RATIO [facility] Start: 1967 Hepatitis C antibody , confirmatory test DILATED RETINAL EXAM [facility] Start: 1963 PNEUMOCOCCAL (1 - PCV) PNEUMOCOCCAL (1 - PCV) [facility] Start: 1957 COVID-19 VACCINE (#1) COVID-19 VACCI NE (#1) [facility] End: 04-02-2024 Basic metabolic 2000 panel - Serum or Plasma Basic Metabolic Panel Lab Routine Essential hypertension, benign 1 Occurrences starting 04/02/2023 until 04/02/2024 [employer] Work Phone: Comment on above: 1 Occurrences starti ng 04/02/2023 until 04/02/2024 Immunizations Immunization Date Immunization Notes Care Provider Fa cility 01-18-2023 Pneumococcal Conjuga te 20-valent Samia Landeros MD Work Phone: [facility] 12-14-2019 influenza, injectabl e, quadrivalent, preservative free Samia Landeros MD Work Phone: [facility] 12-14-2019 influenza virus vacc ine, unspecified formulation Samia Landeros MD Work Phone: [facility] 11-03-2018 Influenza, injectabl e, Madin Natasha Canine Kidney, preservative free, quadrivalent Samia Landeros MD Work Phone: [facility] 11-03-2018 influenza, injectabl e, quadrivalent, preservative free Samia Landeros MD Work Phone: [facility] 10-01-2018 meningococcal polysaccharide (groups A, C, Y and W-135) diphtheria toxoid conjugate vaccine (MCV4P) Samia Landeros MD Work Phone: [facility] 10-01-2018 pneumococcal polysaccharide vaccine, 23 valent Samia Landeros MD Work Phone: [facility] 07-16-2018 haemophilus influenz ae type b vaccine, conjugate unspecified formulation Samia Landeros MD Work Phone: [facility] 07-16-2018 meningococcal oligosaccharide (groups A, C, Y and W-135) diphtheria toxoid conjugate vaccine (MCV4O) Samia Landeros MD Work Phone: [facility] 07-16-2018 pneumococcal polysaccharide vaccine, 23 valent Samia Landeros MD Work Phone: [facility] 12-04-2017 influenza, injectabl e, quadrivalent, contains preservative Pk Grady MD Work Phone: [facility] 08-19-2016 tetanus toxoid, redu danny diphtheria toxoid, and acellular pertussis vaccine, adsorbed Pk Grady MD Work Phone: [facility] Work Phone: Payers Date Payer Category Payer Medicaid [id number] 2020 Medicare ANTHEM MEDICARE ANTHEM MEDICARE ADVANTAGE [id number] 2020-Present [phone] [address] [place] [address] [id number] 2020 Unknown ANTHEM BLUE CROS S AND BLUE SHIELD ANTHEM MEDIBLUE HMO [id number] 2020-Present [phone] [address] [place] [address] HMO [id number] 2014 Unknown [id number] 1959 Blue Cross Blue Shield [id number] 1959 Medicaid [id number] 1959 Self-pay 1957 Unknown [id number] 93 1957 Unknown [id number] 93 1957 Unknown [id number] 93 1957 Unknown [id number] 93 1957 Unknown [id number] 93 1957 Unknown [id number] 93 1957 Unknown [id number] 286 1957 Unknown [id number] 286 1957 Unknown [id number] 286 Unknown [id number] 31 Social History Date Type Detail Facility Unknown if ever smoked [facility] Other Start: 03-23-2020 End: 04-02-2023 Sex Assigned At [facility] Start: 07-01-2018 Tobacco smoking status NHIS Ex-smoker [facility] End: 02-12-1998 History of tobacco use Current smoker [facility] End: 02-12-1998 History of tobacco use Cigarette Smoker [facility] Start: 07-01-2018 End: 03-23-2020 Cigarettes smoked current (pack per day) - Reported 0.1 [facility] Start: 07-01-2018 End: 04-12-2022 Tobacco use and exposure Smokeless tobacco non-user [facility] Start: 01-13-2022 End: 04-02-2023 Alcohol intake Ex-drinker (finding) [facility] Start: 1955 Sex Assigned At Not on file [facility] Start: 04-12-2022 Tobacco smoking status [facility] Never smoked tobacco [facility] Do you belong to any clubs or organizations such as restorationist groups, unions, fraternal or athletic groups, or school groups? Yes [facility] Are you now , , , , never or living with a partner? Never [facility] How often to you hav e a drink containing alcohol? Never [facility] How many standard dr inks containing alcohol do you have on a typical day? Patient declined [facility] Do you feel stress - tense, restless, nervous, or anxious, or unable to sleep at night because your mind is troubled all the time - these days [OSQ] Not at all [facility] Start: 03-23-2020 Education 12 [facility] Start: 11-22-2017 Alcohol Comment occasional [facility] tem Start: 1955 Sex Assigned At Female [facility] Medical Equipment Procedure Code Equipment Code Equipment Origin al Text Equipment Identifier Dates [id number], [id number], [id number] Start: 11-18-2017 Comment on above: Use as instructed Clinical Notes 11-27-2017 to 05-07-2023 Telephone Encounter - Samia Landeros MD - 05/07/2023 10:38 AM EDTTelephone Encounter - Cynthia Taylor CMA - 05/07/2023 10:38 AM EDTDakerry Landeros MD - 04/16/2023 1:15 PM EST Note Date & Type Note Facility 05-07-2023 Miscellaneous Notes Outside labs are good except for glucose at 203- please f/u Tondra regarding sugar Patient notified of results and instructions. documented in this encounter [facility] 05-07-2023 Telephone encounter Note Outside labs are good except for glucose at 203- please f/u Tondra regarding sugar [facility] 05-07-2023 Telephone encounter Note Patient notified of results and instructions. [facility] 04-27-2023 Miscellaneous Notes Needs new Rx for Amlodipine 5mg documented in this encounter [facility] 04-27-2023 Telephone encounter Note Needs new Rx for Amlodipine 5mg [facility] 04-27-2023 Miscellaneous Notes Anneliese's BP is low at night, 98/60 range, do you want to make any changes? We can decrease the norvasc to 5mg- do we need a new rx? Patient notified of message and verbalizes understanding documented in this encounter [facility] 04-27-2023 Telephone encounter Note Anneliese'rizwana BP is low at night, 98/60 range, do you want to make any changes? [facility] 04-27-2023 Telephone encounter Note We can decrease the norvasc to 5mg- do we need a new rx? [facility] 04-27-2023 Telephone encounter Note Patient notified of message and verbalizes understanding [facility] 04-16-2023 History of Present illness Narrative Images from the original note were not included. [address] [facility] [address] SUBJECTIVE: Patient ID: Nichole Sandhu is [...] 300mg bid x10d documented in this encounter [facility] 04-02-2023 History of Present illness Narrative Images from the original note were not included. [address] [facility] [phone] SUBJECTIVE: Patient ID: Nichole Sandhu is a [...] in 3 weeks documented in this encounter [facility] 03-26-2023 Miscellaneous Notes [facility] requesting refill of Colace documented in this encounter [facility] 03-26-2023 Telephone encounter Note [facility] requesting refill of Colace [facility] 03-23-2023 Evaluation note Encounter Date Diagnosis Assessment Notes Mar, Secondary diabetes (ICD-10 - E13.9) [facility] 01-29-2024 Evaluation note* Encounter Date Diagnosis [...] [facility] Humalog sent 03/12/23; DME: [facility] [...] to make it easier material was published [facility] Other [id number] Miscellaneous Notes* Telephone Encounter - Yohana Keller LPN - 02/15/2023 9:52 AM EST Patient via Tapprt requesting [facility]idocaine [facility] [id number] Telephone encounter Note* Telephone Encounter - Yohana Keller LPN - 02/15/2023 9:52 AM EST Patient via Tapprt requesting refill of Lidocaine [facility] [place] [id number] Miscellaneous Notes* Telephone Encounter - Yohana Keller LPN - 02/15/2023 9:51 AM EST Patient via Tapprt requesting refill of [facility]clizine [facility] [id number] Telephone encounter Note* Telephone Encounter - Yohana Keller LPN - 02/15/2023 9:51 AM EST Patient via [employer] requesting refill of Meclizine to [place] [facility] [employer]11-20-2023 Evaluation note* Encounter Date Diagnosis Assessment Notes Treatment Notes Treatment Clinical Notes Dec, Secondary diabetes (ICD-10 - E13.9) Dec, Type 2 diabetes mellitus (ICD-10 - E11.9) [facility] Other 10-16-2023 Evaluation note* Encounter Date Diagnosis [...] declines. Nov, Other 09/03 gfr >60 ; keshawn wnl [facility] Other 07-17-2023 Evaluation note* Encounter Date Diagnosis [...] the nutrition facts label material was published [facility] Other 04-12-2023 Evaluation note* Encounter Date Diagnosis [...] Prescriptions: Refill request for Humalog sent to [facility] in [place] 05/24/22 7. Prescriptions will not be filled [...] the nutrition facts label material was published [facility] Other 03-15-2023 Evaluation note* Encounter Date Diagnosis Assessment Notes Treatment Notes Treatment Clinical Notes Apr, Secondary diabetes (ICD-10 - E13.9) 1. Uncontrolled, secondary diabetes with A1c of 8.1% improved from 02/20/22 a1c was 10%. 2. Blood glucose levels improving, remain above target. dexMeddle g6 cgm download 04/13/22-04/26/22: Avg glucose 216. [...] Toujeo sent to pharmacy. Pt was given toujeo x2 sample pens today. 7. Prescriptions will [...] statin Apr, BMI 33.0-33.9,adult (ICD-10 - Z68.33) [facility] Other 01-09-2023 Evaluation note* Encounter Date Diagnosis [...] statin Feb, BMI 32.0-32.9,adult (ICD-10 - Z68.32) [facility] Other 12-05-2022 Evaluation note* Encounter Date Diagnosis [...] pt requests Dexcom prescription be sent to [facility]3]. All questions and concerns addressed. Encouraged to follow up for next appointment. 45 minutes was spent on education by Rajni GONZALES, RN. Reviewed cgm download 01/04/22- 2: Avg glucose 252. >250-48.7%, >180-88.6%, 70-180-11.4%, <70-0%, <54-0%. CV 22.8%. SD 58. See above recommendations. [employer] POOL ATTENDANT, INVENTORY CONTROL SPECIALIST-C, BC-ADM [facility] Other 12-02-2022 NoteHNO ID: [id number] Author: Pk Grady MD Service: ? Author [...] time. 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 - Follow up with me PRN CC: [...] which included preparing to see the patient, [id number] patient care, completing clinical documentation, obtaining and/or reviewing separately obtained history, performing a medically appropriate examination, counseling and educating the patient/family/caregiver, ordering medications, tests, or procedures, and communicating results to the patient/family/caregiver. 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 No concerns at this time regarding the remainder of her pancreas. No further surgery indicated at this time. 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 - Follow up with me PRN CC: [...] which included preparing to see the patient, [id number] patient care, completing clinical documentation, obtaining and/or reviewing separately obtained history, performing a medically appropriate examination, counseling and educating the pat ient/family/caregiver, ordering medications, tests, or procedures, and communicating results to thepatient/family/caregiver. Anton Grady MD B surgery Pager: [phone] [facility]* Encounter Date Diagnosis Assessment Notes [...] issues. 6. Prescriptions: Sent toujoe/humalog/pen needles to [facility]. Sent dexcom g6 cgm transmitter/cgm to [facility]. Sample toujeo, humalog u200, pen needles, and [...] - E16.2) Pt would greatly benefit from correction personal use of CGM device such as [...] educating the patient by Aramis Palm RN, [facility]. [facility] Other 10-16-2018 History of Past illness Narrative* Problem Noted Date Resolved Date Fever 11/27/2017 08/25/2020 Obesity, Class II, BMI 35-39.9 11/15/2017 0 09/24/2019 Delirium 11/04/2017 08/25/2020 Last Assessment & Plan: PLAN: See plan for encephalopathy documented as of this encounter (statuses as of 01/13/2022) [facility] noteNo InformationNort [employer] Other Evaluation note* Diagnosis Secondary diabetes mellitus (HCC)- Primary Secondary diabetes mellitus without mention of complication, not stated as uncontrolled, or unspecified documented in this encounter [facility] noteNo assessment information availableMercy [facility] Work Phone: Evaluation note* Diagnosis Secondary diabetes mellitus (CMS-HCC)- Primary Secondary diabetes mellitus without mention of complication, not stated as uncontrolled, or unspecified Necrotizing pancreatitis Acute pancreatitis Mixed hyperlipidemia Essential hypertension, benign documented [facility] encounter [facility] Diagnosis Other acute sinusitis, recurrence not specified- Primary [facility] this encounter [facility] N[facility]ative - Reported* Type Description Date Medical History Secondary Diabetes Mellitus Medical History Necrotizing pancreatitis Medical History Pancreas tail injury Surgical History section Surgical History Hysterectomy Surgical History Kidney stone surgery Surgical History Pancreas resection Surgical History Pancreas-partial removal Surgical History Splenectomy Hospitalization History see above [facility] Other InstructionsNot on filedocumented in this encounter [facility] SystemInstructionsNot on filedocumented in this encounter [facility]Inst[facility]* Attachments The following attachments cannot be sent through Care Everywhere. * Diabetes and diet (South African) [facility] System[facility]* Attachments The following attachments cannot be sent through Care Everywhere. * Sinusitis in adults (South African) documented in this encounterProMemorial Hospital SystemInstructionsNot on file documented in this encounterProMemorial Hospital SystemInstructionsNot on file documented in this encounterProMemorial Hospital SystemReason for visit Narrative Referral Dr. 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 Advance Directive(s) 11/09/2017 4:21 PM SI GNED Advance Directive Response Recorded Date/ Time Advance Directives No December 1:07pm Chief Complaint and Reason for Visit Chief Complaint Dm 3 Month F/U DM Additional Source Comments INFORMATION SOURCE (unrecogn ized section and content) DATE CREATED AUTHOR 12/08/2017 [facility] DATE CREATED AUTHOR AUTHOR'S ORGANIZ ATION 11/24/2018 [facility] DATE CREATED AUTHOR AUTHOR'S ORGANIZ ATION 09/02/[facility] DATE CREATED AUTHOR AUTHOR'S ORGANIZ ATION 01/13/2022 [facility] DATE CREATED AUTHOR AUTHOR'S ORGANIZ ATION 05/07/[address] [facility] DATE CREATED AUTHOR AUTHOR'S ORGANIZ ATION 04/03/2023 [facility] DATE CREATED AUTHOR AUTHOR'S ORGANIZ ATION 10/17/2023 [facility] REASON FOR [...] or prosecute any alcohol or drug abuse patient.[facility] Teams (unrecognized sec tion and content) Librarian Special Library Relationship Specialty Start Date End Date Samia Payton [address] [place] [address] PCP - General Family Medicine 11/23/17 Librarian Special Library Relationship Specialty Start Date End Date Samia Landeros MD [address] [place] [address] PCP - General Family Medicine 11/22/17 Librarian Special Library Relationship Specialty Start Date End Date Samia Landeros MD [address] [place] [address] PCP - General Family Medicine 11/22/17 Team [...] March 12, 2023 End: March 12, 2023 Librarian Special Library Relationship Specialty Start Date End Date Samia Landeros MD [address] [place] [address] PCP - General Family Medicine 11/22/17 Librarian Special Library Relationship Specialty Start Date End Date Samia Landeros MD [address] [place] [address] PCP - General Family Medicine 11/22/17 Librarian Special Library Relationship Specialty Start Date End Date Defrance, Samia T, MD [address] [place] [address] PCP - [facility] 11/22/17 Librarian Special Library Relationship Specialty Start Date End Date Samia Landeros MD [address] [place] [address] PCP - [facility] 11/22/17 Librarian Special Library Relationship Specialty Start Date End Date Samia Landeros MD [address] [place], [place] [id number] PCP - [facility] 11/22/17 Goals (unrecognized section and content) Goals [...] BE BASED ON THE PRIMARY CLINICAL RECORDS. [facility] [employer] [facility]. provides no warranty or guarantee of the accuracy or completeness of information in this document.
[2023-10-22 09:18] LABS: Alanine Aminotransferase 36 U/L (14-59); Albumin Globulin Ratio 0.8; Albumin Level 3.4 g/dL (3.4-5.0); Alkaline Phosphatase 74 U/L (46-116); Anion Gap 9.8; Aspartate Amino Transferase 20 U/L (15-37); BUN Creatinine Ratio 18.8; Bilirubin Total 0.4 mg/dL (0.2-1.0); Calcium 8.7 mg/dL (8.5-10.1); Carbon Dioxide 32.6 mmol/L (21.0-32.0); Chloride 99 mmol/L (98-107); Chol HDL Ratio 4.3; Cholesterol 149 mg/dL (<=200); Estimated GFR (African America >60 (>=60); Estimated GFR (Non-African Ame >60 (>=60); Globulin 4.2 g/dL; Glucose 130 mg/dL (74-106); HDL Cholesterol 35 mg/dL (40-60); Potassium 3.4 mmol/L (3.5-5.1); Sodium 138 mmol/L (136-145); Thyroid Stimulating Hormone 2.424 uIU/mL (0.358-3.740); Total Protein 7.6 g/dL (6.4-8.2); Triglycerides 284 mg/dL (<=150); VLDL CHOLESTEROL 56.8 mg/dL
[2023-10-22 09:22] LABS: Free T4 0.94 ng/dL (0.76-1.46)
== END 2023-10-22 07:57 | disposition home or self-care (01) ==
LOC: LAB 07:58
PROVIDERS: PCP Family Medicine; Visit Provider Family Medicine
DX: E78.2 Mixed hyperlipidemia (principal)
CPT/HCPCS: 36415; 80053; 80061; 84439; 84443; 85025

== ENCOUNTER 2023-12-17 13:50 | Outpatient (OUT) | payer MEDICARE, SELFPAY ==
--- NOTE | 2023-12-17 14:02 | MM_ITS ---
Patient Name: VICTOR MANUEL SANDHU MR#: [id number] : 1955 Exam Date: 12/17/2023 Ordering Doctor: DR ASH PRESCOTT RADIOLOGY REPORT PROCEDURE: MM TOMOSYNTHESIS SCREENING BI COMPARISON: MG MAMM SCREEN 3D [facility] CAD, 11/08/2021. MM TOMOSYNTHESIS SCREENING BI, 12/14/2022. INDICATIONS: Screening Calculator Name NCI Breast Cancer Risk Assessment Tool 5 Year Breast Cancer Risk 2.00% Lifetime Breast Cancer Risk 7.30% Personal Breast Cancer No Personal Ovarian Cancer No Treatments None Family Cancers None LOCATION: [facility] BREAST COMPOSITION: There are scattered areas of fibroglandular density. FINDINGS: DIAGNOSTIC CATEGORY 2--BENIGN FINDING. NO CHANGE FROM COMPARISON. Scattered benign-appearing nodules are present. Scattered benign-appearing calcifications are present. Scattered benign-appearing lymph nodes are present. RIGHT BREAST: No significant suspicious finding. LEFT BREAST: No significant suspicious finding. RECOMMENDATIONS: ROUTINE MAMMOGRAM AND CLINICAL EVALUATION IN 12 MONTHS. PLEASE NOTE: A NORMAL MAMMOGRAM DOES NOT EXCLUDE THE POSSIBILITY OF BREAST CANCER. A CLINICALLY SUSPICIOUS PALPABLE LUMP SHOULD BE BIOPSIED. Dictated by: Ash Cheek MD on 12/17/2023 at 15:43 Approved by: Ash Cheek MD on 12/17/2023 at 15:44
== END 2023-12-17 13:51 | disposition home or self-care (01) ==
LOC: MAMMO 13:53
PROVIDERS: PCP Family Medicine; Visit Provider Family Medicine
DX: Z12.31 Encounter for screening mammogram for malignant neoplasm of breast (principal)
CPT/HCPCS: 77063; 77067

== ENCOUNTER 2024-07-30 09:34 | Outpatient (OUT) | payer MEDICARE, SELFPAY ==
--- OUTSIDE RECORDS SUMMARY | 2024-07-30 09:40 | XMS_ITS | Encounter Summary ---
Author Organization [facility] [employer] Address [id number] [address] [place] [address] Care Team Providers Care Community Health Agent Name Role Phone Ash Landeros MD Primary Care Provider [phone] Encounter Details Date Type Department Care Team (Late st Contact Info) Description 09/27/2020 Orders Only [facility] [address] [place] [address] Ash Landeros MD [address] Provider retired 05/13/24 [place] [address] Social History Tobacco Use Types Packs/Day Years Used Date Smoking Tobacco: Never Smokeless Tobacco: Never Alcohol Use Standard Drinks/Week Comments Not Currently 0 (1 standard drink = 0.6 oz pur e alcohol) occasional Social Connection and Isolat ion Panel [NHANES] Answer Date Recorded In a typical week, how many times do you talk on the phone with family, friends, or neighbors? More than three times a week 03/23/2020 How often do you get togethe r with friends or relatives? Twice a week 03/23/2020 How often do you attend chur ch or buddhist services? Never 03/23/2020 Do you belong to any clubs o r organizations such as congregation groups, unions, fraternal or athletic groups, or school groups? Yes 03/23/2020 How often do you attend meet ings of the clubs or organizations you belong to? Never 03/23/2020 Are you , , di vorced, , never , or living with a partner? Never 03/23/2020 AUDIT-C Answer Date Recorded Q1: How often do you have a drink containing alc ohol? Never 03/23/2020 Q2: How many drinks containi ng alcohol do you have on a typical day when you are drinking? Patient declined 03/23/2020 Q3: How often do you have si x or more drinks on one occasion? Never 03/23/2020 Overall Financial Resource Strain (CARDIA) Answe r Date Recorded How hard is it for you to pa y for the very basics like food, housing, medical care, and heating? Somewhat hard 03/23/2020 PHQ-2 Answer Date Recorded Total Score 0 09/20/2020 [facility] [place] of Occupat ional Health - Occupational Stress Questionnaire Answer Date Recorded Do you feel stress - tense, restless, nervous, or anxious, or unable to sleep at night because your mind is troubled all the time - these days? Not at all 03/23/2020 Exercise Vital Sign Answer Date Recorde d On average, how many days pe r week do you engage in moderate to strenuous exercise (like a brisk walk)? 5 days 03/23/2020 On average, how many minutes do you engage in exercise at this level? 60 min 03/23/2020 PRAPARE - Transportation Answer Date Re corded In the past 12 months, has l ack of transportation kept you from medical appointments or from getting medications? No 10/2020 In the past 12 months, has l ack of transportation kept you from meetings, work, or from getting things needed for daily living? No 03/23/2020 Childcare Answer Date Recorded Do problems getting child ca re make it difficult for you to work or study? No 03/23/2020 Employment Answer Date Recorded Do you need help finding a [employer] ocal career center and/or a training program? No 03/23/2020 Purpose - Life Answer Date Recorded I have a purpose and direction in my life. Somew hat Agree 03/23/2020 Education Answer Date Recorded What is the highest level of school you have completed or the highest degree you have received? 12th grade 03/23/2020 Comments No Sex and Gender Information Value Date Recorded Sex Assigned at Not on file Legal Sex Female 9:48 AM EDT Gender Identity Not on file Sexual Orientation Not on file COVID-19 Exposure Response Date Recorded In the last month, have you been in contact with someone who was confirmed or suspected to have Coronavirus / COVID-19? No / Unsure 09/23/2020 9:14 AM EDT documented as of this encounter Plan of Treatment Upcoming Encounters Date Type Department Care Team (Late st Contact Info) Description 10/20/2024 3:00 PM EDT Office Visit [facility] [address] [place] [address] Drake Morrissey MD [address] [place] [address] documented as of this encounter Visit Diagnoses Not on filedocumented in this encounter Additional Health Concerns Assessment Noted Time PHQ-9 Depression Total Score: 0 09/21/19 21 11:17 AM EDT A Body Mass Index follow-up plan has been documented for the patient 04/29/2020 3:01 PM EDT documented as of this encounter Care Teams Community Health Agent Relationship Specialty [place] [address] [place] [address]. Provider retired 05/13/24 [place] [address] PCP - General Family Medicine 11/22/17 documented as of this encounter
--- OUTSIDE RECORDS SUMMARY | 2024-07-30 09:40 | XMS_ITS | Encounter Summary ---
Author Organization [facility] Address [address] [place] [address] Care Team Providers Care Data Analysis Intern Name Role Phone Ash Rinaldi Primary Care Provider [phone] Source Comments In the event this information is protected by the Federal Confidentiality of Alcohol and Drug AbusePatient Records regulations: The Federal rules restrict any use of the information to criminally investigate or prosecute any alcohol or drug abuse patient.[facility] Encounter Details Date Type Department Care Team (Late st Contact Info) Description 09/22/2018 Patient Msg Medical Records [address] [place] [address] Provider, [facility] Prescribed Patient Education Video(s) Social History Tobacco Use Types Packs/Day Years Used Date Smoking Tobacco: Former Cigarettes 0.1 15 1 984 - 1999 Smokeless Tobacco: Never Comments No Sex and Gender Information Value Date Recorded Sex Assigned at Not on file Legal Sex Female 2:30 PM EDT Gender Identity Not on file Sexual Orientation Not on file documented as of this encounter Functional Status * Are you deaf or do you have serious difficulty hearing? Answer Date of Assessment Author No 08/05/2018 11:05 AM EDT Ashli Ley RN * Are you blind or do you have serious difficulty seeing, even when wearing glasses? Answer Date of Assessment Author No 08/05/2018 11:05 AM Ashli Mckeon RN * Do you have serious difficulty walking or climbing stairs? Answer Date of Assessment Author No 08/05/2018 11:05 AM Ashli Mckeon RN * Do you have difficulty dressing or bathing? Answer Date of Assessment Author No 08/05/2018 11:05 AM Ashli Mckeon RN * Because of a physical, mental, or emotional condition, do you have difficulty doing errands alone such as visiting a doctor's office or shopping? Answer Date of Assessment Author No 08/05/2018 11:05 AM Ashli Mckeon RN documented as of this encounter Mental Status * Because of a physical, mental, or emotional condition, do you have serious difficulty concentrating, remembering, or making decisions? Answer Entry Date Author No 08/05/2018 11:05 AM Ashli Mckeon RN documented in this encounter Plan of Treatment Not on file documented as of this encounter Visit Diagnoses Not on filedocumented in this encounter Care Teams Data Analysis Intern Relationship Specialty Start Date End Date Ash Rinaldi [address] [place] [address] PCP - General Family Medicine 11/23/17 documented as of this encounter
--- OUTSIDE RECORDS SUMMARY | 2024-07-30 09:40 | XMS_ITS | Encounter Summary ---
Author Organization [facility] Address [address] [place] [address] Care Team Providers Care Vehicle Glass Technician Name Role Phone Ash Rinaldi Primary Care Provider [phone] Source Comments In the event this information is protected by the Federal Confidentiality of Alcohol and Drug AbusePatient Records regulations: The Federal rules restrict any use of the information to criminally investigate or prosecute any alcohol or drug abuse patient.[facility] Encounter Details Date Type Department Care Team (Late st Contact Info) Description 07/26/2020 Get Medical Advice Gastroenterology [facility] [address] [place] [address] [place] [address] RE: Upcoming Appointment Question Social History Tobacco Use Types Packs/Day Years Used Date Smoking Tobacco: Former Cigarettes 0.1 15 1 984 - 1998 Smokeless Tobacco: Never Alcohol Use Standard Drinks/Week Comments Not Currently 0 (1 standard drink = 0.6 oz pur e alcohol) PHQ-2 Answer Date Recorded PHQ-2 score 1 03/21/2020 Area Deprivation Index Answer Date Austyn rded National Score (1-100), lower number is lower ri sk Not on file 01/20/2020 State Score (1-10), lower number is lower risk N ot on file 01/20/2020 Data from: https://www.neighborhoodatlas.medicine.[facility].edu/. Last address used for calculation Not on file 01/20/2020 Comments No Sex and Gender Information Value Date Recorded Sex Assigned at Not on file Legal Sex Female 2:30 PM EDT Gender Identity Not on file Sexual Orientation Not on file documented as of this encounter Functional Status * Are you deaf or do you have serious difficulty hearing? Answer Date of Assessment Author No 08/05/2018 11:05 AM Ashli Mckeon RN * Are you blind or do [...] on filedocumented in this encounter Care Teams Vehicle Glass Technician Relationship Specialty Start Date End Date Ash Rinaldi: [phone] [address] [facility] [place] [place] [address] PCP - General Family Medicine 11/23/17 documented as of this encounter
--- OUTSIDE RECORDS SUMMARY | 2024-07-30 09:40 | XMS_ITS | Encounter Summary ---
Author Organization [facility] Address [address] [place] [address] Care Team Providers Care Summer Child Caregiver Name Role Phone Ash Rinaldi Primary Care Provider [phone] Source Comments In the event this information is protected by the Federal Confidentiality of Alcohol and Drug AbusePatient Records regulations: The Federal rules restrict any use of the information to criminally investigate or prosecute any alcohol or drug abuse patient.[facility] Encounter Details Date Type Department Care Team (Late st Contact Info) Description 07/31/2018 [facility] [address] [id number] Morris Grady MD [address] [place] [address] Social History Tobacco Use Types Packs/Day Years Used Date Smoking Tobacco: Former Cigarettes 0.1 15 1 984 - 1998 Smokeless Tobacco: Never Comments No Sex and Gender Information Value Date Recorded Sex Assigned at Not on file Legal Sex Female 2:30 PM EDT Gender Identity Not on file Sexual Orientation Not on file documented as of this encounter Functional Status * Are you deaf or do you have serious difficulty hearing? Answer Date of Assessment Author No 12/29/2017 4:47 PM Urmila Morocho RN * Are you blind or do you have serious difficulty seeing, even when wearing glasses? Answer Date of Assessment Author No 12/29/2017 4:47 PM Urmila Morocho RN * Do you have serious difficulty walking or climbing stairs? Answer Date of Assessment Author Yes 12/29/2017 4:47 PM Urmila Morocho RN * Do you have difficulty dressing or bathing? Answer Date of Assessment Author Yes 12/29/2017 4:47 PM Urmila Morocho RN * Because of a physical, mental, or emotional condition, do you have difficulty doing errands alone such as visiting a doctor's office or shopping? Answer Date of Assessment Author Yes 12/29/2017 4:47 PM Urmila Morocho RN documented as of this encounter Mental Status * Because of a physical, mental, or emotional condition, do you have serious difficulty concentrating, remembering, or making decisions? Answer Entry Date Author No 12/29/2017 4:47 PM Urmila Vargas RN documented in this encounter Plan of Treatment Not on file documented as of this encounter Visit Diagnoses Not on filedocumented in this encounter Care Teams Summer Child Caregiver Relationship Specialty Start Date End Date Ash Rinaldi: [phone] [address] [place] [address] PCP - General Family Medicine 11/23/17 documented as of this encounter
--- OUTSIDE RECORDS SUMMARY | 2024-07-30 09:40 | XMS_ITS | Encounter Summary ---
Author Organization [facility] [employer] Sys tem Address [id number] [address] [place] [address] Care Team Providers Care Safety Glass Installer Name Role Phone Ash Landeros MD Primary Care Provider + [phone] Encounter Details Date Type Department Care Team (Late st Contact Info) Description 04/01/2020 Telephone [facility] [address] [place] [address] Ash Landeros MD [address]. Provider retired 05/13/24 [place] [address] Social History Tobacco Use Types [...] often do you attend chur ch or adventist services? Never 03/23/2020 Do you belong to any clubs o r organizations such as muslim groups, unions, fraternal or athletic groups, or [...] Somewhat hard 03/23/2020 PHQ-2 Answer Date Recorded PHQ-2 Score 0 02/02/2018 [facility] of Occupat ional Health - Occupational Stress [...] Recorded Do you need help finding a [employer] ocal career center and/or a training program? [...] have Coronavirus / COVID-19? No / Unsure 03/26/2020 2:51 PM EST documented as of this encounter Miscellaneous Notes * Telephone Encounter - Ash Landeros MD - 04/01/2020 11:21 AM EST Labs reviewed D/c mobic- elevated liver enzymes glimeperide 2mg 1qd added for glu 219 and tg in 300's Glucometer reading q am x 30d Recheck here in 28 days Low carb diet ncs! * Telephone Encounter - Ninoska Hemphill CMA - 04/01/2020 11:21 AM EST Patient notified of test results and verbalizes understanding. documented in this encounter Plan of Treatment Upcoming Encounters Date Type Department Care Team (Late st Contact Info) Description 10/20/2024 3:00 PM EDT Office Visit [facility] [address] [place] [phone] Drake Morrissey MD [address] [place] [phone] documented as of this encounter Visit Diagnoses Not on filedocumented in this encounter Additional Health Concerns Assessment Noted Time PHQ-9 Depression Total Score: 0 03/23/19 7:52 PM EST documented as of this encounter Care Teams Safety Glass Installer Relationship Specialty Start Date End Date Ash Landeros MD [address] [place] [address]. Provider retired 05/13/24 [place], [place] [phone] PCP - General Family Medicine 11/22/17 documented as of this encounter
--- OUTSIDE RECORDS SUMMARY | 2024-07-30 09:40 | XMS_ITS | Encounter Summary ---
Author Organization [facility] Address [facility] [id number] [address] [place] [address] Care Team Providers Care Title Specialist Name Role Phone Ash Landeros MD Primary Care Provider [phone] Encounter Details Date Type Department Care Team (Late st Contact Info) Description 09/24/2020 Telephone [facility] [address] [place] [address] Ash Landeros MD [address]. Provider retired 05/13/24 [place] [address] Social History Tobacco Use Types [...] often do you attend chur ch or orthodoxy services? Never 03/23/2020 Do you belong to any clubs o r organizations such as congregational groups, unions, fraternal or athletic groups, or [...] Answer Date Recorded Total Score 0 09/20/2020 [facility] [place] of Occupat ional Health - Occupational Stress [...] Recorded Do you need help finding a [facility] career center and/or a training program? No [...] AM EDT documented as of this encounter Miscellaneous Notes * Telephone Encounter - Ash Landeros MD - 09/24/2020 11:36 AM EDT a1c is 9.4, need to increase glimeperide to 4mg qd from 2mg, new rx sent to pharm, repeat a1c in 3 months * Telephone Encounter - Logan Lopez CMA - 09/24/2020 11:36 AM EDT Patient notified and verbalizes understanding documented in this encounter Plan of Treatment Upcoming Encounters Date Type Department Care Team (Late st Contact Info) Description 10/20/2024 3:00 PM EDT Office Visit [facility] [address] [place] [phone] Drake Morrissey MD [address] [place] [address] [phone] documented as of this encounter Visit Diagnoses Diagnosis Secondary diabetes mellitus ([facility])- Primary Secondary diabetes mellitus without mention of complication, not stated as uncontrolled, or unspecified documented in this encounter Additional Health Concerns Assessment Noted Time PHQ-9 Depression Total Score: 0 09/21/19 21 11:17 AM EDT A Body Mass Index follow-up plan has been documented for the patient 04/29/2020 3:01 PM EDT documented as of this encounter Care Teams Title Specialist Relationship Specialty Start Date End Date sAh Landeros MD [address] [place] [address]. Provider retired 05/13/24 [place] [address] PCP - General Family Medicine 11/22/17 documented as of this encounter
--- OUTSIDE RECORDS SUMMARY | 2024-07-30 09:40 | XMS_ITS | Encounter Summary ---
Author Organization [facility] Address [facility] [place] [address] Care Team Providers Care Auto Fleet Maintenance Manager Name Role Phone Ash Rinaldi Primary Care Provider [phone] [phone] Source Comments In the event this information is protected by the Federal Confidentiality of Alcohol and Drug AbusePatient Records regulations: The Federal rules restrict any use of the information to criminally investigate or prosecute any alcohol or drug abuse patient.[facility] Encounter Details Date Type Department Care Team (Late st Contact Info) Description 08/25/2020 Patient Msg Pre Anesthesia [address] [place] [address] Nguyen Ugarte PA-C [address] [place] [address] Preoperative Instructions Social History Tobacco Use Types Packs/Day Years [...] N ot on file 01/20/2020 Data from: https://www.neighborhoodatlas.medicine.[facility]/. Last address used for calculation Not on [...] have Coronavirus / COVID-19? No / Unsure 08/25/2020 3:08 PM EDT documented as of this encounter Functional Status [...] on filedocumented in this encounter Care Teams Auto Fleet Maintenance Manager Relationship Specialty Start Date End Date Ash Rinaldi [address] [place] [address] PCP - General Family Medicine 11/23/17 documented as of this encounter
--- OUTSIDE RECORDS SUMMARY | 2024-07-30 09:40 | XMS_ITS | Encounter Summary ---
Author Organization [facility] Address [id number] [address] [place] [address] Care Team Providers Care Agricultural Research Technician Name Role Phone Ash Landeros MD Primary Care Provider + [phone] Encounter Details Date Type Department Care Team (Late st Contact Info) Description 10/22/2023 Telephone [facility] [address] [place] [address] Ash Landeros MD [address] Provider retired 05/13/24 [place] [address] Social History Tobacco Use Types [...] often do you attend chur ch or moravian services? Never 03/23/2020 Do you belong to any clubs o r organizations such as jainism groups, unions, fraternal or athletic groups, or [...] like food, housing, medical care, and heating? Not hard at all 03/28/2023 PHQ-2 Answer Date Recorded Total Score 1 10/16/2023 [facility] of Occupat ional Health - Occupational Stress [...] medical appointments or from getting medications? No 03/15 In the past 12 months, has l ack of transportation kept you from meetings, work, or from getting things needed for daily living? No 03/28/2023 Housing Instability Answer Date Recorde d Are you worried or concerned that in the next two months you may not have stable housing that you own, rent or stay in as a part of a household? No 03/28/2023 Childcare Answer Date Recorded Do problems getting child ca re make it difficult for you to work or study? No 03/23/2020 Employment Answer Date Recorded Do you need help finding a [facility] career center and/or a training program? No 03/23/2020 Hunger Screening Answer Date Recorded Within the past 12 months we worried whether our food would run out before we got money to buy more. Never True 10/16/2023 Within the past 12 months th e food we bought just didn't last and we didn't have money to get more. Never True 10/16/2023 Purpose - Life Answer Date Recorded I [...] on file documented as of this encounter Miscellaneous Notes * Telephone Encounter - Ash Landeros MD - 10/22/2023 3:29 PM EDT Outsie labs documented in this encounter Plan of Treatment Upcoming Encounters Date Type Department Care Team (Late st Contact Info) Description 10/20/2024 3:00 PM EDT Office Visit [facility] [address] [place] [phone] Drake Morrissey MD [address] [place] [phone] documented as of this encounter Visit Diagnoses Not on filedocumented in this encounter Additional Health Concerns Assessment Noted Time PHQ-9 Depression Total Score: 1 10/16/19 24 2:00 PM EDT A Body Mass Index follow-up plan has been documented for the patient 04/29/2020 3:01 PM EDT documented as of this encounter Care Teams Agricultural Research Technician Relationship Specialty Start Date End Date Ash Landeros MD [address] [place] [address]. Provider retired 05/13/24 [place], [place] [phone] PCP - General Family Medicine 11/22/17 documented as of this encounter
--- OUTSIDE RECORDS SUMMARY | 2024-07-30 09:40 | XMS_ITS | Encounter Summary ---
Author Organization [facility] Address [address] [place] [address] Care Team Providers Care Electric Organ Checker Name Role Phone Ash Rinaldi Primary Care Provider [phone] [phone] Source Comments In the event this information is protected by the Federal Confidentiality of Alcohol and Drug AbusePatient Records regulations: The Federal rules restrict any use of the information to criminally investigate or prosecute any alcohol or drug abuse patient.[facility] Encounter Details Date Type Department Care Team (Late st Contact Info) Description 10/23/2018 Patient Msg Medical Records [address] [place] [address] Provider, Ccf Prescribed Patient Education Video(s) Social [...] on filedocumented in this encounter Care Teams Electric Organ Checker Relationship Specialty Start Date End Date Ash Rinaldi [address] [place] [address] PCP - General Family Medicine 11/23/17 documented as of this encounter
--- OUTSIDE RECORDS SUMMARY | 2024-07-30 09:40 | XMS_ITS | Encounter Summary ---
Author Organization [facility] Address [address] [place] [address] Care Team Providers Care Accounts Payable Processor Name Role Phone Ash Rinaldi Primary Care Provider [phone] [phone] Source Comments In the event this information is protected by the Federal Confidentiality of Alcohol and Drug AbusePatient Records regulations: The Federal rules restrict any use of the information to criminally investigate or prosecute any alcohol or drug abuse patient.[facility] Encounter Details Date Type Department Care Team (Late st Contact Info) Description 06/20/2018 Patient Msg General Surgery [address] [place] [address] Linda Rizzo RN [address] [address] [employer] Social History Tobacco Use Types Packs/Day Years Used Date Smoking Tobacco: Former Smokeless Tobacco: Never Comments No Sex and [...] Date Author No 12/29/2017 4:47 PM Urmila Morocho RN documented in this encounter Plan of Treatment Not on file documented as of this encounter Visit Diagnoses Not on filedocumented in this encounter Care Teams Accounts Payable Processor Relationship Specialty Start Date End Date Ash Rinaldi: [phone] [address] [place] [place] [address] PCP - General Family Medicine 11/23/17 documented as of this encounter
--- OUTSIDE RECORDS SUMMARY | 2024-07-30 09:40 | XMS_ITS | Encounter Summary ---
Author Organization [facility] Address [address] [place] [address] Care Team Providers Care Rope Maker Name Role Phone Ash Rinaldi Primary Care Provider [phone] [phone] Source Comments In the event this information is protected by the Federal Confidentiality of Alcohol and Drug AbusePatient Records regulations: The Federal rules restrict any use of the information to criminally investigate or prosecute any alcohol or drug abuse patient.[facility] Encounter Details Date Type Department Care Team (Late st Contact Info) Description 05/18/2020 Get Medical Advice General Surgery [address] [place] [address] Morris Grady MD [address] [place] [address] RE: Visit Follow Up Question Social History Tobacco Use Types Packs/Day [...] N ot on file 01/20/2020 Data from: https://www.neighborhoodatlas.medicine.[facility].edu/. Last address used for calculation [...] on filedocumented in this encounter Care Teams Rope Maker Relationship Specialty Start Date End Date Ash Rinaldi: [phone] [address] [place] [address] PCP - General Family Medicine 11/23/17 documented as of this encounter
--- OUTSIDE RECORDS SUMMARY | 2024-07-30 09:40 | XMS_ITS | Encounter Summary ---
Author Organization [facility] [employer] Sys [employer] Address [id number] [address] [place] [address] Care Team Providers Care Chain Maker Name Role Phone Ash Landeros MD Primary Care Provider [phone] Encounter Details Date Type Department Care Team (Late st Contact Info) Description 10/22/2023 Orders Only [facility] [address] [place] [address] Ash Landeros MD [address]. Provider retired 05/13/24 [place] [address] Social History Tobacco Use Types [...] often do you attend chur ch or uatsdin services? Never 03/23/2020 Do you belong to any clubs o r organizations such as pentecostal groups, unions, fraternal or athletic groups, or [...] Answer Date Recorded Total Score 1 10/16/2023 [facility] [place] of Occupat ional Health - Occupational Stress [...] Recorded Do you need help finding a [facility] career center and/or a training program? No [...] on file documented as of this encounter Plan of Treatment Upcoming Encounters Date Type Department Care Team (Late st Contact Info) Description 10/20/2024 3:00 PM EDT Office Visit [facility] [address] [place] [phone] Drake Morrissey MD [address] [place] [address] [phone] documented as of this encounter Visit Diagnoses Not on filedocumented in this encounter Additional Health Concerns Assessment Noted Time PHQ-9 Depression Total Score: 1 10/16/19 24 2:00 PM EDT A Body Mass Index follow-up plan has been documented for the patient 04/29/2020 3:01 PM EDT documented as of this encounter Care Teams Chain Maker Relationship Specialty Start Date End Date Ash Landeros MD [address] [place] [address]. Provider retired 05/13/24 [place], [place] [phone] PCP - General Family Medicine 11/22/17 documented as of this encounter
--- OUTSIDE RECORDS SUMMARY | 2024-07-30 09:40 | XMS_ITS | Encounter Summary ---
Author Organization [facility] Address [address] [place] [address] Care Team Providers Care River Expedition Guide Name Role Phone Ash Rinaldi Primary Care Provider [phone] Source Comments In the event this information is protected by the Federal Confidentiality of Alcohol and Drug AbusePatient Records regulations: The Federal rules restrict any use of the information to criminally investigate or prosecute any alcohol or drug abuse patient.[facility] Encounter Details Date Type Department Care Team (Late st Contact Info) Description 11/19/2018 Patient Msg Medical Records [address] [place] [address] Provider, Ccf Prescribed Patient Education Video(s) Social [...] on filedocumented in this encounter Care Teams River Expedition Guide Relationship Specialty Start Date End Date Ash Rinaldi [address] [place] [address] PCP - General Family Medicine 11/23/17 documented as of this encounter
--- OUTSIDE RECORDS SUMMARY | 2024-07-30 09:40 | XMS_ITS | Encounter Summary ---
Author Organization [employer] Address [id number] [address] [place] [address] Care Team Providers Care Lieutenant Colonel Name Role Phone Ash Landeros MD Primary Care Provider [phone] Reason for Visit * Reason Onset Date Comments Med Refill 07/05/2018 Encounter Details Date Type Department Care Team (Late st Contact Info) Description 07/05/2018 Refill [facility] [address] [place] [phone] Leo Camacho LPN Social History Tobacco Use Types Packs/Day Years Used Date Smoking Tobacco: Never Smokeless Tobacco: Never Alcohol Use Standard Drinks/Week Comments Yes 0 (1 standard drink = 0.6 oz pur e alcohol) occasional PHQ-2 Answer Date Recorded PHQ-2 Score 0 02/02/2018 Childcare Answer Date Recorded Childcare Unknown 05/06/2018 Employment Answer Date Recorded Employment Unknown 05/06/2018 Comments Unknown Sex and Gender Information Value Date Recorded Sex Assigned at Not on file Legal Sex Female 9:48 AM EDT Gender Identity Not on file Sexual Orientation Not on file documented as of this encounter Plan of Treatment Upcoming Encounters Date Type Department Care Team (Late Contact Info) Description 10/20/2024 3:00 PM EDT Office Visit [facility] [address] [place] [phone] [place] [address] [place] [address] documented as of this encounter Visit Diagnoses Not on filedocumented in this encounter Additional Health Concerns Assessment Noted Time PHQ-9 Depression Total Score: 0 07/06/19 19 11:00 AM EDT documented as of this encounter Care Teams Lieutenant Colonel Relationship Specialty Start Date End Date Ash Landeros MD [address] Provider retired 05/13/24 [place] [address] PCP - General Family Medicine 11/22/17 documented as of this encounter
--- OUTSIDE RECORDS SUMMARY | 2024-07-30 09:40 | XMS_ITS | Encounter Summary ---
Author Organization [facility] Address [address] [place] [address] Care Team Providers Care Shift Production Associate Name Role Phone Ash Rinaldi Primary Care Provider [phone] Source Comments In the event this information is protected by the Federal Confidentiality of Alcohol and Drug AbusePatient Records regulations: The Federal rules restrict any use of the information to criminally investigate or prosecute any alcohol or drug abuse patient.[facility] Encounter Details Date Type Department Care Team (Late st Contact Info) Description 08/06/2018 Patient Msg Medical Records [address] [place] [address] Provider, Ccf Prescribed Patient Education Video(s) Social [...] on filedocumented in this encounter Care Teams Shift Production Associate Relationship Specialty Start Date End Date Ash Rinaldi [address] [place] [address] PCP - General Family Medicine 11/23/17 documented as of this encounter
--- OUTSIDE RECORDS SUMMARY | 2024-07-30 09:40 | XMS_ITS | Encounter Summary ---
Author Organization [facility] Address [address] [place] [address] Care Team Providers Care Electron Beam Photo Mask Maker Name Role Phone Ash Rinaldi Primary Care Provider [phone] Source Comments In the event this information is protected by the Federal Confidentiality of Alcohol and Drug AbusePatient Records regulations: The Federal rules restrict any use of the information to criminally investigate or prosecute any alcohol or drug abuse patient.[facility] Encounter Details Date Type Department Care Team (Late st Contact Info) Description 02/09/2020 Get Medical Advice [facility] [address] [phone] Jhon Acosta MD [address] [facility] [address] [place] [address] RE: Visit Follow Up Question Social History Tobacco Use Types Packs/Day Years Used Date Smoking Tobacco: Former Cigarettes 0.1 15 1 984 - 1998 Smokeless Tobacco: Never Alcohol Use Standard Drinks/Week Comments Not Currently 0 (1 standard drink = 0.6 oz pur e alcohol) PHQ-2 Answer Date Recorded PHQ-2 score 2 10/25/2019 Area Deprivation Index Answer Date Austyn rded National Score (1-100), lower number is lower ri sk Not on file 01/20/2020 State Score (1-10), lower number is lower risk N ot on file 01/20/2020 Data from: https://www.neighborhoodatlas.medicine.[facility]/. Last address used for calculation Not on [...] have Coronavirus / COVID-19? No / Unsure 02/09/2020 1:50 PM EST documented as of this encounter Functional Status [...] on filedocumented in this encounter Care Teams Electron Beam Photo Mask Maker Relationship Specialty Start Date End Date Ash Rinaldi [address] [place] [address] PCP - General Family Medicine 11/23/17 documented as of this encounter
--- OUTSIDE RECORDS SUMMARY | 2024-07-30 09:40 | XMS_ITS | Encounter Summary ---
Author Organization [facility] Address [address] [place] [address] Care Team Providers Care Exterminator Helper Termite Name Role Phone Ash Rinaldi Primary Care Provider [phone] Source Comments In the event this information is protected by the Federal Confidentiality of Alcohol and Drug AbusePatient Records regulations: The Federal rules restrict any use of the information to criminally investigate or prosecute any alcohol or drug abuse patient.[facility] Encounter Details Date Type Department Care Team (Late st Contact Info) Description 07/30/2020 Patient Msg Colorectal Surgery [facility] [address] [phone] Provider, Ccf colonoscopy prep Social History Tobacco Use Types Packs/Day Years [...] N ot on file 01/20/2020 Data from: https://www.neighborhoodatlas.[facility]/. Last address used for calculation Not [...] on filedocumented in this encounter Care Teams Exterminator Helper Termite Relationship Specialty Start Date End Date Ash Rinaldi: [phone] [address] [place] [address] PCP - General Family Medicine 11/23/17 documented as of this encounter
--- OUTSIDE RECORDS SUMMARY | 2024-07-30 09:40 | XMS_ITS | Encounter Summary ---
Author Organization [facility] Address [id number] [address] [place] [address] Care Team Providers Care Business Services Officer Name Role Phone Ash Landeros MD Primary Care Provider + [phone] Reason for Visit * Reason Onset Date Comments Med Refill 08/26/2023 Encounter Details Date Type Department Care Team (Late st Contact Info) Description 08/26/2023 Refill [facility] [address] [place] [address] Ash Landeros MD [address]. Provider retired 05/13/24 [place] [address] Social History Tobacco Use Types [...] often do you attend chur ch or gnosticism services? Never 03/23/2020 Do you belong to any clubs o r organizations such as lutheran groups, unions, fraternal or athletic groups, or [...] 03/28/2023 PHQ-2 Answer Date Recorded Total Score 0 04/02/2023 [facility] of Occupat ional Health - Occupational Stress [...] Recorded Do you need help finding a [facility] career center and/or a training program? No 03/23/2020 Hunger Screening Answer Date Recorded Within the past 12 months we worried whether our food would run out before we got money to buy more. Never True 04/02/2023 Within the past 12 months th e food we bought just didn't last and we didn't have money to get more. Never True 04/02/2023 Purpose - Life Answer Date Recorded I [...] EDT Office Visit [facility] [address] [place] [phone] Drake Morrissey MD [address] [place] [address] documented as of this encounter Visit Diagnoses Not on filedocumented in this encounter Additional Health Concerns Assessment Noted Time PHQ-9 Depression Total Score: 0 04/02/19 24 7:00 AM EST A Body Mass Index follow-up plan has been documented for the patient 04/29/2020 3:01 PM EDT documented as of this encounter Care Teams Business Services Officer Relationship Specialty Start Date End Date Ash Landeros MD [address] [place] [address]. Provider retired 05/13/24 [place], [place] [id number] PCP - General Family Medicine 11/22/17 documented as of this encounter
--- OUTSIDE RECORDS SUMMARY | 2024-07-30 09:40 | XMS_ITS | Encounter Summary ---
Author Organization [employer] s tem Address [id number] [address] [place] [address] Care Team Providers Care Customer Relationship Specialist Name Role Phone Ash Landeros MD Primary Care Provider [phone] Reason for Visit * Reason Comments Med Refill Encounter Details Date Type Department Care Team (Late Contact Info) Description 07/26/2018 Refill [facility] [address] [place] [address] Ash Landeros MD [address]. Provider retired 05/13/24 [place] [address] Social History Tobacco Use Types Packs/Day Years Used Date Smoking Tobacco: Never Smokeless Tobacco: Never Alcohol Use Standard Drinks/Week Comments Yes 0 (1 standard drink = 0.6 oz pur e alcohol) occasional PHQ-2 Answer Date Recorded PHQ-2 Score 0 02/02/2018 Childcare Answer Date Recorded Childcare Unknown 07/12/2018 Employment Answer Date Recorded Employment Unknown 07/12/2018 Comments Unknown Sex and Gender Information Value Date Recorded Sex Assigned at Not on file Legal Sex Female 9:48 AM EDT Gender Identity Not on file Sexual Orientation Not on file documented as of this encounter Plan of Treatment Upcoming Encounters Date Type Department Care Team ([facility] Contact Info) Description 10/20/2024 3:00 PM EDT Office Visit [facility] [address] [place] [address] Drake Morrissey MD [address] [place], [place] [phone] documented as of this encounter Visit Diagnoses Not on filedocumented in this encounter Additional Health Concerns Assessment Noted Time PHQ-9 Depression Total Score: 0 07/06/19 19 11:00 AM EDT documented as of this encounter Care Teams Customer Relationship Specialist Relationship Specialty Start Date End Date Ash Landeros MD [address] [facility]. Provider retired 05/13/24 [place], [place] [id number] PCP - General Family Medicine 11/22/17 documented as of this encounter
--- OUTSIDE RECORDS SUMMARY | 2024-07-30 09:40 | XMS_ITS | Encounter Summary ---
Author Organization [facility] Address [facility] [place] [address] Care Team Providers Care Manager Equipment Name Role Phone Ash Rinaldi Primary Care Provider [phone] Source Comments In the event this information is protected by the Federal Confidentiality of Alcohol and Drug AbusePatient Records regulations: The Federal rules restrict any use of the information to criminally investigate or prosecute any alcohol or drug abuse patient.[facility] Encounter Details Date Type Department Care Team (Late st Contact Info) Description 11/10/2019 Get Medical Advice Pain Management [address] [place] [address] Marcia Rascon, BOOM TRUCK DRIVER.SALESPERSON NECKTIES [address] [place], [place] [id number] RE: Visit Follow Up Question Social History Tobacco Use Types Packs/Day Years Used Date Smoking Tobacco: Former Cigarettes 0.1 15 1 984 - 1998 Smokeless Tobacco: Never Alcohol Use Standard Drinks/Week Comments Not Currently 0 (1 standard drink = 0.6 oz pur e alcohol) PHQ-2 Answer Date Recorded PHQ-2 score 2 10/25/2019 Comments No Sex and Gender Information Value Date Recorded Sex Assigned at Not on file Legal Sex Female 2:30 PM EDT Gender Identity Not on file Sexual Orientation Not on file COVID-19 Exposure Response Date Recorded In the last month, have you been in contact with someone who was confirmed or suspected to have Coronavirus / COVID-19? No / Unsure 11/04/2019 10:39 AM EDT documented as of this encounter Functional Status * Are you deaf or do you have serious difficulty hearing? Answer Date of Assessment Author No 08/05/2018 11:05 AM EDT Ashli Ley RN * Are you blind or do you have serious difficulty seeing, even when wearing glasses? Answer Date of Assessment Author No 08/05/2018 11:05 AM EDT Ashli Ley RN * Do you have serious difficulty walking or climbing stairs? Answer Date of Assessment Author No 08/05/2018 11:05 AM EDAshli Burton RN * Do you have difficulty dressing or bathing? Answer Date of Assessment Author No 08/05/2018 11:05 AM CANDIT Ashli Ley RN * Because of a physical, mental, [...] on filedocumented in this encounter Care Teams Manager Equipment Relationship Specialty Start Date End Date Ash Rinaldi [address] [place] [address] PCP - General Family Medicine 11/23/17 documented as of this encounter
--- OUTSIDE RECORDS SUMMARY | 2024-07-30 09:40 | XMS_ITS | Encounter Summary ---
Author Organization [facility] Address [id number] [address] [place] [address] Care Team Providers Care Fisheries Specialist Name Role Phone Ash Landeros MD Primary Care Provider + [phone] Encounter Details Date Type Department Care Team (Late st Contact Info) Description 04/05/2020 Orders Only [facility] [address] [place] [address] External, Scanning Provider Social History Tobacco Use Types Packs/Day Years [...] any clubs o r organizations such as orthodoxy groups, unions, fraternal or athletic groups, or [...] Answer Date Recorded PHQ-2 Score 0 02/02/2018 [facility] [place] of Occupat ional Health - Occupational Stress [...] Recorded Do you need help finding a [employer] ocal career center and/or a training program? [...] PM EST documented as of this encounter Plan of Treatment Upcoming Encounters Date Type Department Care Team (Late st Contact Info) Description 10/20/2024 3:00 PM EDT Office Visit [facility] [address] [place] [phone] Drake Morrissey MD [address] [place] [address] documented as of this encounter Visit Diagnoses Not on filedocumented in this encounter Additional Health Concerns Assessment Noted Time PHQ-9 Depression Total Score: 0 03/23/19 21 7:52 PM EST documented as of this encounter Care Teams Fisheries Specialist Relationship Specialty [place] [address] [place] [address]. Provider retired 05/13/24 [place] [address] PCP - General Family Medicine 11/22/17 documented as of this encounter
--- OUTSIDE RECORDS SUMMARY | 2024-07-30 09:40 | XMS_ITS | Encounter Summary ---
Author Organization [facility] tem Address [id number] [address] [place] [address] Care Team Providers Care Filbert Grower Name Role Phone Ash Landeros MD Primary Care Provider + [phone] Encounter Details Date Type Department Care Team (Late st Contact Info) Description 09/25/2023 Orders Only [facility] [address] [place] [address] External, Scanning Provider Social History [...] often do you attend chur ch or tenriism services? Never 03/23/2020 Do you belong to any clubs o r organizations such as religion groups, unions, fraternal or athletic groups, or [...] Answer Date Recorded Total Score 0 04/02/2023 [employer] [place] of Occupat ional Health - Occupational Stress [...] Recorded Do you need help finding a [facility] career center and/or a training program? [...] EDT Office Visit [facility] [address] [place] [address] Drake Morrissey MD [address] [place] [address] documented as of this encounter Procedures Procedure Name Priority Date/Time Associated Diagnosis Comments HEMOGLOBIN A1C Routine 09/25/2023 9:41 AM EDT documented in this encounter Results * Hemoglobin A1c (09/25/2023 9:41 AM EDT) External Hemoglobin A1C 7.5 % MANUALLY TRANSCRIBED RESULTS us Scanning Provider External LAB BLOOD ORDERABLES Edited Result - Final MANUALLY TRANSCRIBED RESULTS documented in this encounter Visit Diagnoses Not on filedocumented in this encounter Additional Health Concerns Assessment Noted Time PHQ-9 Depression Total Score: 0 04/02/19 24 7:00 AM EST A Body Mass Index follow-up plan has been documented for the patient 04/29/2020 3:01 PM EDT documented as of this encounter Care Teams Filbert Grower Relationship Specialty [place] [address] [place] [address]. Provider retired 05/13/24 [place] [address] PCP - General Family Medicine 11/22/17 documented as of this encounter
--- OUTSIDE RECORDS SUMMARY | 2024-07-30 09:40 | XMS_ITS | Encounter Summary ---
Author Organization [facility] Address [address] [place] [address] Care Team Providers Care Control Center Operator Name Role Phone Ash Rinaldi Primary Care Provider [phone] Source Comments In the event this information is protected by the Federal Confidentiality of Alcohol and Drug AbusePatient Records regulations: The Federal rules restrict any use of the information to criminally investigate or prosecute any alcohol or drug abuse patient.[facility] Encounter Details Date Type Department Care Team (Late st Contact Info) Description 05/15/2018 Patient Msg Medical Records [address] [place] [address] Provider, Ccf Prescribed Patient Education Video(s) Social [...] on filedocumented in this encounter Care Teams Control Center Operator Relationship Specialty Start Date End Date Ash Rinaldi [address] [place] [address] PCP - General Family Medicine 11/23/17 documented as of this encounter
--- OUTSIDE RECORDS SUMMARY | 2024-07-30 09:40 | XMS_ITS | Encounter Summary ---
Author Organization [facility] Address [address] [place] [address] Care Team Providers Care Client Experience Administrator Name Role Phone Ash Rinaldi Primary Care Provider [phone] Source Comments In the event this information is protected by the Federal Confidentiality of Alcohol and Drug AbusePatient Records regulations: The Federal rules restrict any use of the information to criminally investigate or prosecute any alcohol or drug abuse patient.[facility] Encounter Details Date Type Department Care Team (Late st Contact Info) Description 10/23/2018 Patient Msg Medical Records [address] [place] [address] Provider, Ccf Prescribed Patient Education Video(s) Social [...] on filedocumented in this encounter Care Teams Client Experience Administrator Relationship Specialty Start Date End Date Ash Rinaldi [address] [place] [address] PCP - General Family Medicine 11/23/17 documented as of this encounter
--- OUTSIDE RECORDS SUMMARY | 2024-07-30 09:40 | XMS_ITS | Encounter Summary ---
Author Organization [facility] [employer] Address [facility] [id number] [address] [place] [address] Care Team Providers Care Production Planner Name Role Phone Ash Landeros MD Primary Care Provider [phone] Encounter Details Date Type Department Care Team (Late st Contact Info) Description 04/01/2020 Orders Only [facility] [address] [place] [address] Ninoska Hemphill CMA Iron deficiency anemia, unspecified iron deficiency anemia type; Routine general medical examination at a health care facility Social History Tobacco Use Types Packs/Day Years [...] often do you attend chur ch or episcopalian services? Never 03/23/2020 Do you belong to any clubs o r organizations such as oriental orthodox groups, unions, fraternal or athletic groups, or [...] Answer Date Recorded PHQ-2 Score 0 02/02/2018 [facility] [place] of Occupat ional Health - Occupational Stress [...] Recorded Do you need help finding a l ocal career center and/or a training program? [...] Office Visit [facility] [address] [place] [address] Drake Morrissey MD [address] [place] [address] documented as of this encounter Procedures Procedure Name Priority Date/Time Associated Diagnosis Comments THYROID PROFILE INCLUDES TSH FT4 Routine 03/31/2020 Routine general medical examination at a [facility] CBC WITH AUTO DIFFERENTIAL Routine 03/31/2020 Routine general medical examination at a [facility] IRON AND TIBC Routine 03/31/2020 Iron deficiency anemia, unspecified iron deficiency anemia type MICROALBUMIN / CREATININE URINE RATIO Routine 03/31/2020 Routine general medical examination at a [facility] HEMOGLOBIN A1C Routine 03/31/2020 Routine general medical examination at a [facility] LIPID PROFILE Routine 03/31/2020 Routine general medical examination at a [facility] COMPREHENSIVE METABOLIC PANEL Routine 03/31/2020 Routine general medical examination at a health care facility documented in this encounter Results * CBC auto differential (03/31/2020) 03/31/2020 us Ash Landeros MD LAB BLOOD ORDERABLES Final R esult SUNQUEST * Comprehensive metabolic panel (03/31/2020) 03/31/2020 Ash Landeros MD LAB BLOOD ORDERABLES Final R esult Performing Organization Address [facility] de Phone Number SUNQUEST * (ABNORMAL) Lipid profile (03/31/2020) External Cholesterol 199 <=200 [facility] External Cholesterol:Hdl 6.4(A) <=4.4 [facility] External Hdl Cholesterol 31(A) >=60 [facility] External Ldl (Calc) 94.4 <=100 [facility] External Triglycerides 368(A) <=150 [facility]QUEST External Very Low Lipoprotein 73.6 [facility] 03/31/2020 Ash Landeros MD LAB BLOOD ORDERABLES Final R esult Performing Organization Address [facility] de Phone Number SUNQUEST * Microalbumin / creatinine urine ratio (03/31/2020) External Microalbumin, Urine 4.4 <=30 SUNQUEST External Alb/Creat Ratio 18.4 <=19.9 [facility] 03/31/2020 Ash Landeros MD URINE ORDERABLES Final Resul t Performing Organization Address [facility] de Phone Number SUNQUEST * Thyroid profile includes TSH FT4 (03/31/2020) 03/31/2020 Ash Landeros MD LAB BLOOD ORDERABLES Final R esult Performing Organization Address [facility] de Phone Number SUNQUEST * Hemoglobin A1c (03/31/2020) External Hemoglobin A1C 8.7 % [facility]QUEST 03/31/2020 Ash Landeros MD LAB BLOOD ORDERABLES Final R esult Performing Organization Address [facility] de Phone Number SUNQUEST * Iron and TIBC (03/31/2020) 03/31/2020 us Ash Landeros MD LAB BLOOD ORDERABLES Final R esult SUNQUEST documented in this encounter Visit Diagnoses Diagnosis Iron deficiency anemia, unspecified iron deficiency anemia type Routine general medical examination at a health care facility documented in this encounter Additional Health Concerns Assessment Noted Time PHQ-9 Depression Total Score: 0 03/23/19 21 7:52 PM EST documented as of this encounter Care Teams Production Planner Relationship Specialty Start Date End Date Ash Landeros MD [address] Provider retired 05/13/24 [place] [address] PCP - General Family Medicine 11/22/17 documented as of this encounter
--- OUTSIDE RECORDS SUMMARY | 2024-07-30 09:40 | XMS_ITS | Encounter Summary ---
Author Organization [facility] [employer] Address [id number] [address] [place] [address] Care Team Providers Care Emissions Inspector Name Role Phone Ash Landeros MD Primary Care Provider [phone] Encounter Details Date Type Department Care Team (Late st Contact Info) Description 09/24/2020 Orders Only [facility] [address] [place] [phone] Logan Lopez CNA Secondary diabetes mellitus ([facility]) Social History Tobacco Use Types Packs/Day Years [...] often do you attend chur ch or quaker services? Never 03/23/2020 Do you belong to any clubs o r organizations such as anabaptism groups, unions, fraternal or athletic groups, or [...] Answer Date Recorded Total Score 0 09/20/2020 [facility] of Occupat ional Health - Occupational Stress [...] EDT Office Visit [facility] [address] [place] [address] Drake Morrissey MD [address] [place] [address] documented as of this encounter Procedures Procedure Name Priority Date/Time Associated Diagnosis Comments HEMOGLOBIN A1C Routine 09/23/2020 Secondary diabetes mellitus ([facility]) documented in this encounter Results * (ABNORMAL) Hemoglobin A1c (09/23/2020) External Hemoglobin A1C 9.4(A) <=6 % [facility]QUEST 09/23/2020 us Ash Landeros MD LAB BLOOD ORDERABLES Final R esult SUNQUEST documented in this encounter Visit Diagnoses Diagnosis Secondary diabetes mellitus ([facility]) Secondary diabetes mellitus without mention of complication, not stated as uncontrolled, or unspecified documented in this encounter Additional Health Concerns Assessment Noted Time PHQ-9 Depression Total Score: 0 09/21/19 21 11:17 AM EDT A Body Mass Index follow-up plan has been documented for the patient 04/29/2020 3:01 PM EDT documented as of this encounter Care Teams Emissions Inspector Relationship Specialty Start Date End Date Ash Landeros MD [address] [place] [address]. Provider retired 05/13/24 [place] [address] PCP - General Family Medicine 11/22/17 documented as of this encounter
--- OUTSIDE RECORDS SUMMARY | 2024-07-30 09:40 | XMS_ITS | Encounter Summary ---
Author Organization [facility] Address [address] [place] [address] Care Team Providers Care Manager Radio Name Role Phone Ash Rinaldi Primary Care Provider [phone] Source Comments In the event this information is protected by the Federal Confidentiality of Alcohol and Drug AbusePatient Records regulations: The Federal rules restrict any use of the information to criminally investigate or prosecute any alcohol or drug abuse patient.[facility] Encounter Details Date Type Department Care Team (Late st Contact Info) Description 2022 [place] [address] Provider, Ccf Medicare Coverage of Physical Exams Social History Tobacco Use Types Packs/Day Years Used Date Smoking Tobacco: Former Cigarettes 0.1 15 1 984 - 1999 Smokeless Tobacco: Never Alcohol Use Standard Drinks/Week Comments Not Currently 0 (1 standard drink = 0.6 oz pur e alcohol) PHQ-2 Answer Date Recorded PHQ-2 score 1 03/21/2020 Area Deprivation Index Answer Date Austyn rded National Score (1-100), lower number is lower ri sk Not on file 01/20/2020 State Score (1-10), lower number is lower risk N ot on file 01/20/2020 Data from: https://www.neighborhoodatlas.medicine.[facility].edu/. Last address used for calculation Not on [...] 08/05/2018 11:05 AM EDAshli Burton RN * Are you blind or do [...] filedocumented in this encounter Care Teams Manager Radio Relationship Specialty Start Date End Date Ash Rinladi: [phone] [address] [place] [address] PCP - General Family Medicine 11/23/17 documented as of this encounter
--- OUTSIDE RECORDS SUMMARY | 2024-07-30 09:40 | XMS_ITS | Encounter Summary ---
Author Organization [facility] Address [id number] [address] [place] [address] Care Team Providers Care Hedis Review Nurse Name Role Phone Ash Landeros MD Primary Care Provider [phone] Reason for Visit * Reason Onset Date Comments Med Refill 05/30/2020 Encounter Details Date Type Department Care Team (Late st Contact Info) Description 05/30/2020 Refill [facility] [address] [place] [address] Ash Landeros MD [address]. Provider retired 05/13/24 [place] [address] Social History Tobacco Use Types [...] often do you attend chur ch or roman catholic services? Never 03/23/2020 Do you belong to any clubs o r organizations such as hinduism groups, unions, fraternal or athletic groups, or [...] PHQ-2 Answer Date Recorded Total Score 0 04/29/2020 [facility] [place] of Occupat ional Health - Occupational Stress [...] EDT Office Visit [facility] [address] [facility] [address] Drake Morrissey MD [address] [place] [address] documented as of this encounter Visit Diagnoses Not on filedocumented in this encounter Additional Health Concerns Assessment Noted Time PHQ-9 Depression Total Score: 0 04/30/19 21 2:00 PM EDT A Body Mass Index follow-up plan has been documented for the patient 04/29/2020 3:01 PM EDT documented as of this encounter Care Teams Hedis Review Nurse Relationship Specialty Start Date End Date Ash Landeros MD [address] [facility] Provider retired 05/13/24 [place], [place] [id number] PCP - General Family Medicine 11/22/17 documented as of this encounter
--- OUTSIDE RECORDS SUMMARY | 2024-07-30 09:40 | XMS_ITS | Encounter Summary ---
Author Organization [facility] Address [address] [place] [address] Care Team Providers Care Calciner Operator Name Role Phone Ash Rinaldi Primary Care Provider [phone] Source Comments In the event this information is protected by the Federal Confidentiality of Alcohol and Drug AbusePatient Records regulations: The Federal rules restrict any use of the information to criminally investigate or prosecute any alcohol or drug abuse patient.[facility] Encounter Details Date Type Department Care Team (Late st Contact Info) Description 08/01/2019 Get Medical Advice General Surgery [address] [phone] Morris Grady MD [address] [place] [address] RE: Visit Follow Up Question Social History Tobacco Use Types Packs/Day Years Used Date Smoking Tobacco: Former Cigarettes 0.1 15 1 984 - 1998 Smokeless Tobacco: Never PHQ-2 Answer Date Recorded PHQ-2 Score 0 12/21/2018 Comments No Sex and Gender Information Value Date Recorded Sex Assigned at Not on file Legal Sex Female 2:30 PM EDT Gender Identity Not on file Sexual Orientation Not on file COVID-19 Exposure Response Date Recorded In the last month, have you been in contact with someone who was confirmed or suspected to have Coronavirus / COVID-19? No / Unsure 08/02/2019 9:33 PM EDT documented as of this encounter [...] 11:05 AM CANDIT Ashli Ley RN * Do you have difficulty dressing or bathing? Answer Date of Assessment Author No 08/05/2018 11:05 AM CANDIT Ashli Ley RN * Because of a physical, mental, or emotional condition, do you have difficulty doing errands alone such as visiting a doctor's office or shopping? Answer Date of Assessment Author No 08/05/2018 11:05 AM EDT Ashli Ley RN documented as of this encounter Mental Status * Because of a physical, mental, or emotional condition, do you have serious difficulty concentrating, remembering, or making decisions? Answer Entry Date Author No 08/05/2018 11:05 AM Ashli Mckeon RN documented in this encounter Plan of Treatment Not on file documented as of this encounter Visit Diagnoses Not on filedocumented in this encounter Care Teams Calciner Operator Relationship Specialty Start Date End Date Ash Rinaldi [address] [place] [address] PCP - General Family Medicine 11/23/17 documented as of this encounter
--- OUTSIDE RECORDS SUMMARY | 2024-07-30 09:40 | XMS_ITS | Encounter Summary ---
Author Organization [facility] Address [address] [place] [address] Care Team Providers Care Flavor Extractor Name Role Phone Ash Rinaldi Primary Care Provider [phone] Source Comments In the event this information is protected by the Federal Confidentiality of Alcohol and Drug AbusePatient Records regulations: The Federal rules restrict any use of the information to criminally investigate or prosecute any alcohol or drug abuse patient.[facility] Encounter Details Date Type Department Care Team (Late st Contact Info) Description 08/24/2020 Patient [facility] [place] [address] Provider, Ccf procedure 08/31/20 Social History Tobacco Use Types Packs/Day Years [...] N ot on file 01/20/2020 Data from: https://www.neighborhoodatlas.[facility]/. Last address used for calculation Not [...] on filedocumented in this encounter Care Teams Flavor Extractor Relationship Specialty Start Date End Date Ash Rinaldi [address] [facility] [place] [address] PCP - General Family Medicine 11/23/17 documented as of this encounter
--- OUTSIDE RECORDS SUMMARY | 2024-07-30 09:41 | XMS_ITS | Encounter Summary ---
[facility] Address [id number] [address] [place] [address] Care Team Providers Care Wool Carder Name Role Phone Ash Landeros MD Primary Care Provider [phone] Reason for Visit * Reason Comments Med Refill Encounter Details Date Type Department Care Team (Late st Contact Info) Description 08/25/2022 Refill [facility] [address] [place] [address] Ash Landeros MD [address]. Provider retired 05/13/24 [place] [address] Social History Tobacco Use Types [...] often do you attend chur ch or protestant services? Never 03/23/2020 Do you belong to any clubs o r organizations such as alevism groups, unions, fraternal or athletic groups, or [...] care, and heating? Not hard at all 04/09/2022 PHQ-2 Answer Date Recorded Total Score 0 04/12/2022 [facility] - Occupational Stress [...] medical appointments or from getting medications? No 03/16 In the past 12 months, has l ack of transportation kept you from meetings, work, or from getting things needed for daily living? No 04/09/2022 Housing Instability Answer Date Recorde d Are you worried or concerned that in the next two months you may not have stable housing that you own, rent or stay in as a part of a household? No 04/09/2022 Childcare Answer Date Recorded Do problems getting child ca re make it difficult for you to work or study? No 03/23/2020 Employment Answer Date Recorded Do you need help finding a [facility] career center and/or a training program? No 03/23/2020 Hunger Screening Answer Date Recorded Within the past 12 months we worried whether our food would run out before we got money to buy more. Never True 04/12/2022 Within the past 12 months th e food we bought just didn't last and we didn't have money to get more. Never True 04/12/2022 Purpose - Life Answer Date Recorded I [...] EDT Office Visit [facility] [address] [place] [phone] Drake Morrissey MD [address] [place] [phone] documented as of this encounter Visit Diagnoses Not on filedocumented in this encounter Additional Health Concerns Assessment Noted Time PHQ-9 Depression Total Score: 0 04/13/19 23 7:00 AM EST A Body Mass Index follow-up plan has been documented for the patient 04/29/2020 3:01 PM EDT documented as of this encounter Care Teams Wool Carder Relationship Specialty Start Date End Date Ash Landeros MD [address] [place] [address]. Provider retired 05/13/24 [place], [place] [id number] PCP - General Family Medicine 11/22/17 documented as of this encounter
--- OUTSIDE RECORDS SUMMARY | 2024-07-30 09:41 | XMS_ITS | Clinical Summary ---
Author Organization [facility] Address [address] [place] [address] Care Team Providers Care Stock Preparation Supervisor Name Role Phone Stalin Vick DO Primary Care Provider [phone] Allergies Active Allergy Reactions Criticality Noted Date Comments Codeine Other (See Comments) High 11/01/2017 Swelling of tongue Medications albuterol (PROVENTIL) (2.5 MG/3ML) 0.083% nebulizer solution Take 3 mLs by nebulization every 6 hours as needed for Wheezing 120 each 3 8 Active glucose (GLUTOSE) 40 % GEL Take 37.5 mLs by mouth as needed (hypoglycemia) 45 g 1 8 Active insulin lispro (HUMALOG) 100 UNIT/ML injection vial Inject 0-6 Units into the skin every 6 hours 1 vial 3 8 Active Active Problems Problem Noted Date Diagnosed Date Ileus 11/03/2017 Hypertension 11/02/2017 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 Coffee ground emesis 11/01/2017 Social History Tobacco Use Types Packs/Day Years Used Date Smoking Tobacco: Unknown Comments Unknown Sex and Gender Information Value Date Recorded Sex Assigned at Not on file Legal Sex Female 1:08 PM EDT Gender Identity Not on file Sexual Orientation Not on file Last Filed Vital Signs Vital Sign Reading Time Taken Comments Blood Pressure 162/83 11/03/2017 11:00 PM EDT Pulse 106 11/03/2017 11:00 PM EDT Temperature 37.5 C (99.5 F) 11/03/2017 8:00 PM EDT Respiratory Rate 22 11/03/2017 11:00 PM EDT Oxygen Saturation 99% 11/03/2017 9:00 PM EDT Inhaled Oxygen Concentration - - Weight 98.9 kg (218 lb 0.6 oz) 11/01/2017 6:45 P M EDT Height 165.1 cm (5' 5 ) 11/01/2017 6:45 PM EDT Body Mass Index 36.28 11/01/2017 6:45 PM EDT Plan of Treatment Not on file Insurance [employer] Advance Directives * Full Code (Latest Code Status on File) Date Activated Date Inactivated Comments 11/01/2017 7:17 PM 11/04/2017 1:57 AM Care Teams Stock Preparation Supervisor Relationship Specialty Start Date End Date Stalin Vick DO [address] [place] [address] PCP - General Family Medicine 11/01/17
--- OUTSIDE RECORDS SUMMARY | 2024-07-30 09:41 | XMS_ITS | Encounter Summary ---
Author Organization [facility] Address [address] [place] [address] Care Team Providers Care Cv Rn Name Role Phone Ash Rinaldi Primary Care Provider [phone] Source Comments In the event this information is protected by the Federal Confidentiality of Alcohol and Drug AbusePatient Records regulations: The Federal rules restrict any use of the information to criminally investigate or prosecute any alcohol or drug abuse patient.[facility] Encounter Details Date Type Department Care Team (Late st Contact Info) Description 09/05/2019 Get Medical Advice General Surgery [address] [phone] Morris Grady MD [address] [place] [address] RE: Visit Follow Up Question Social [...] have Coronavirus / COVID-19? No / Unsure 09/05/2019 12:45 PM EDT documented as of this encounter [...] 11:05 AM EDT Ashli Ley RN * Because of a [...] on filedocumented in this encounter Care Teams Cv Rn Relationship Specialty Start Date End Date Ash Rinaldi [address] [place] [address] PCP - General Family Medicine 11/23/17 documented as of this encounter
--- OUTSIDE RECORDS SUMMARY | 2024-07-30 09:41 | XMS_ITS | Encounter Summary ---
Author Organization [facility] [employer] [facility] [employer] Address [id number] [address] [place] [address] Care Team Providers Care Wares Sorter Name Role Phone Ash Landeros MD Primary Care Provider [phone] Encounter Details Date Type Department Care Team (Late st Contact Info) Description 01/10/2022 Orders Only [facility] [address] [place] [address] Kamla Guzman CMA Secondary diabetes mellitus ([facility]) Social History Tobacco Use Types Packs/Day Years [...] often do you attend chur ch or mu-ism services? Never 03/23/2020 Do you belong to any clubs o r organizations such as roman catholic groups, unions, fraternal or athletic groups, or [...] 03/23/2020 PHQ-2 Answer Date Recorded Total Score 2 10/11/2021 [facility] [...] Office Visit [facility] [address] [place] [phone] Drake Morrissey MD [address] [place], [place] [phone] documented as of this encounter Procedures Procedure Name Priority Date/Time Associated Diagnosis Comments AMB REFERRAL TO ENDOCRINOLOGY Routine 01/04/2022 10:08 AM EST Secondary diabetes mellitus (CMS-HCC) documented in this encounter Results * Ambulatory referral to Endocrinology (01/04/2022 10:08 AM EST) us Ash Landeros MD OUTPATIENT REFERRAL ORDERABL ES Final Result MANUALLY TRANSCRIBED RESULTS documented in this encounter Visit Diagnoses Diagnosis Secondary diabetes mellitus (CMS-HCC) Secondary diabetes mellitus without mention of complication, not stated as uncontrolled, or unspecified documented in this encounter Additional Health Concerns Assessment Noted Time PHQ-9 Depression Total Score: 2 10/12/19 22 8:00 AM EDT A Body Mass Index follow-up plan has been documented for the patient 04/29/2020 3:01 PM EDT documented as of this encounter Care Teams Wares Sorter Relationship Specialty Start Date End Date Ash Landeros MD [address] [place] [address]. Provider retired 05/13/24 [place], [place] [phone] PCP - General Family Medicine 11/22/17 documented as of this encounter
--- OUTSIDE RECORDS SUMMARY | 2024-07-30 09:41 | XMS_ITS | Encounter Summary ---
Author Organization [facility] [employer] Address [id number] [address] [place] [address] Care Team Providers Care Specialty Foods Cook Name Role Phone Ash Landeros MD Primary Care Provider [phone] Encounter Details Date Type Department Care Team (Late Contact Info) Description 10/02/2019 [facility] [address] [place] [address] Ash Landeros MD [address]. Provider retired 05/13/24 [place] [address] Social History Tobacco Use Types Packs/Day Years Used Date Smoking Tobacco: Never Smokeless Tobacco: Never Alcohol Use Standard Drinks/Week Comments Not Currently 0 (1 standard drink = 0.6 oz pur e alcohol) occasional PHQ-2 Answer Date Recorded PHQ-2 Score 0 02/02/2018 Childcare Answer Date Recorded Childcare Unknown 07/12/2018 Employment Answer Date Recorded Employment Unknown 07/12/2018 Comments No Sex and Gender Information Value Date Recorded Sex Assigned at Not on file Legal Sex Female 9:48 AM EDT Gender Identity Not on file Sexual Orientation Not on file documented as of this encounter Miscellaneous Notes * Telephone Encounter - Ash Landeros MD - 10/02/2019 7:35 AM EDT ----- Message from Ash Landeros MD sent at 04/04/2019 8:11 AM EST ----- Regarding: f/u 6m mammogram Pt needs 6m f/u diag mammogram left documented in this encounter Plan of Treatment Upcoming Encounters Date Type Department Care Team (Late st Contact Info) Description 10/20/2024 3:00 PM EDT Office Visit [facility] [address] [place] [address] [place] [address] [place] [address] [place] [address] documented as of this encounter Visit Diagnoses Diagnosis Mammogram abnormal- Primary Abnormal mammogram, unspecified documented in this encounter Additional Health Concerns Assessment Noted Time PHQ-9 Depression Total Score: 0 04/22/19 10:00 AM EDT documented as of this encounter Care Teams Specialty Foods Cook Relationship Specialty [place] [address] [place], [place] [address]. Provider retired 05/13/24 [place] [address] PCP - General Family Medicine 11/22/17 documented as of this encounter
--- OUTSIDE RECORDS SUMMARY | 2024-07-30 09:41 | XMS_ITS | Encounter Summary ---
Author Organization [facility] Address [address] [place] [address] Care Team Providers Care Coining Press Operator Name Role Phone Ash Rinaldi Primary Care Provider [phone] Source Comments In the event this information is protected by the Federal Confidentiality of Alcohol and Drug AbusePatient Records regulations: The Federal rules restrict any use of the information to criminally investigate or prosecute any alcohol or drug abuse patient.[facility] Encounter Details Date Type Department Care Team (Late st Contact Info) Description 09/02/2019 Patient Msg Pain Management [address] [phone] Provider, Ccf Denial for procedure Social History Tobacco Use Types Packs/Day Years [...] on filedocumented in this encounter Care Teams Coining Press Operator Relationship Specialty Start Date End Date Ash Rinaldi [address] [place] [address] PCP - General Family Medicine 11/23/17 documented as of this encounter
--- OUTSIDE RECORDS SUMMARY | 2024-07-30 09:41 | XMS_ITS | Encounter Summary ---
Author Organization [facility] Address [id number] [address] [place] [address] Care Team Providers Care Spring Coverer Name Role Phone Ash Landeros MD Primary Care Provider [phone] Encounter Details Date Type Department Care Team (Late st Contact Info) Description 01/31/2022 [facility]phone [facility] [address] [place] [address] Yohana Keller LPN Social History Tobacco Use Types Packs/Day [...] often do you attend chur ch or latter day services? Never 03/23/2020 Do you belong to any clubs o r organizations such as christianity groups, unions, fraternal or athletic groups, or [...] Answer Date Recorded Total Score 2 10/11/2021 [facility] [place] of Occupat ional Health - Occupational Stress [...] encounter Miscellaneous Notes * Telephone Encounter - Yohana Keller LPN - 01/31/2022 12:52 PM EST Could you call in an antibiotic-she has a cough just starting, her daughter has bronchitis and strep throat. [facility] * Telephone Encounter - Ash Landeros MD - 01/31/2022 12:52 PM EST Cephalexin sent to [facility] documented in this encounter Plan of Treatment Upcoming Encounters Date Type Department Care Team (Late st Contact Info) Description 10/20/2024 3:00 PM EDT Office Visit [facility] [address] [place] [phone] Drake Morrissey MD [address] [place] [phone] documented as of this encounter Visit Diagnoses Not on filedocumented in this encounter Additional Health Concerns Assessment Noted Time PHQ-9 Depression Total Score: 2 10/12/19 22 8:00 AM EDT A Body Mass Index follow-up plan has been documented for the patient 04/29/2020 3:01 PM EDT documented as of this encounter Care Teams Spring Coverer Relationship Specialty Start Date End Date Ash Landeros MD [address] [place] [address]. Provider retired 05/13/24 [place], [place] [phone] PCP - General Family Medicine 11/22/17 documented as of this encounter
--- OUTSIDE RECORDS SUMMARY | 2024-07-30 09:41 | XMS_ITS | Encounter Summary ---
Author Organization [facility] Address [facility]-[id number] [address] [place] [address] Care Team Providers Care Wash Tank Tender Name Role Phone Ash Landeros MD Primary Care Provider + [phone] Encounter Details Date Type Department Care Team (Late st Contact Info) Description 03/13/2023 Orders Only [facility] [address] [place] [phone] External, Scanning Provider Social History Tobacco Use [...] often do you attend chur ch or alevism services? Never 03/23/2020 Do you belong to any clubs o r organizations such as sabianist groups, unions, fraternal or athletic groups, or [...] 04/09/2022 PHQ-2 Answer Date Recorded Total Score 2 10/10/2022 [facility] Occupat ional Health - Occupational [...] Recorded Do you need help finding a [facility] career center and/or a training program? [...] EDT Office Visit [facility] [address] [place] [phone] Drake Morrissey MD [address] [place] [address] documented as of this encounter Procedures Procedure Name Priority Date/Time Associated Diagnosis Comments HEMOGLOBIN A1C Routine 03/12/2023 documented in this encounter Results * Hemoglobin A1c (03/12/2023) External Hemoglobin A1C 7.8 % MANUALLY TRANSCRIBED RESULTS 03/12/2023 Narrative MANUALLY TRANSCRIBED RESULTS - 03/12/2023 Done at Endocrinology Office us Scanning Provider External LAB BLOOD ORDERABLES Final Result MANUALLY TRANSCRIBED RESULTS documented in this encounter Visit Diagnoses Not on filedocumented in this encounter Additional Health Concerns Assessment Noted Time PHQ-9 Depression Total Score: 2 10/11/19 23 4:57 PM EDT A Body Mass Index follow-up plan has been documented for the patient 04/29/2020 3:01 PM EDT documented as of this encounter Care Teams Wash Tank Tender Relationship Specialty Start Date End Date Ash Landeros MD [address] [facility]. Provider retired 05/13/24 [place] [address] PCP - General Family Medicine 11/22/17 documented as of this encounter
--- OUTSIDE RECORDS SUMMARY | 2024-07-30 09:41 | XMS_ITS | Encounter Summary ---
Author Organization [facility] Address [facility] [place]-[id number] [address] [place] [address] Care Team Providers Care Brim Stretcher Name Role Phone Ahs Landeros MD Primary Care Provider + [phone] Encounter Details Date Type Department Care Team (Late st Contact Info) Description 11/28/2022 Orders Only [facility] [address] [place] [address] External, Scanning Provider Social History [...] often do you attend chur ch or congregational services? Never 03/23/2020 Do you belong to any clubs o r organizations such as spiritism groups, unions, fraternal or athletic groups, or [...] Answer Date Recorded Total Score 2 10/10/2022 [facility] Occupat ional Health - Occupational [...] Recorded Do you need help finding a [facility] career center and/or a training program? [...] EDT Office Visit [facility] [address] [place] [phone] Drake Morrissey MD [address] [place], [place] [phone] documented as of this encounter Procedures Procedure Name Priority Date/Time Associated Diagnosis Comments HEMOGLOBIN A1C Routine 11/28/2022 9:13 AM EDT documented in this encounter Results * Hemoglobin A1c (11/28/2022 9:13 AM EDT) External Hemoglobin A1C 6.7 % MANUALLY TRANSCRIBED RESULTS us Scanning Provider [...] documented as of this encounter Care Teams Brim Stretcher Relationship Specialty [place] [address] [place] [address]. Provider retired 05/13/24 [place] [address] PCP - General Family Medicine 11/22/17 documented as of this encounter
--- OUTSIDE RECORDS SUMMARY | 2024-07-30 09:41 | XMS_ITS | Encounter Summary ---
Author Organization [facility] [employer] Sys tem Address [facility] [id number] [address] [place] [address] Care Team Providers Care Diecast Machine Operator Name Role Phone Ash Landeros MD Primary Care Provider +[phone] Encounter Details Date Type Department Care Team (Late st Contact Info) Description 04/27/2022 Orders Only [facility] [address] [place] [address] Cynthia Taylor, SHAYY Hypokalemia; Mixed hyperlipidemia Social History Tobacco Use Types Packs/Day Years [...] often do you attend chur ch or bahai services? Never 03/23/2020 Do you belong to any clubs o r organizations such as zoroastrian groups, unions, fraternal or athletic groups, or [...] Answer Date Recorded Total Score 0 04/12/2022 [facility] - Occupational Stress Questionnaire Answer Date Recorded [...] Recorded Do you need help finding a [facility] career center and/or a training program? No [...] have Coronavirus / COVID-19? No / Unsure 04/12/2022 8:53 AM EST documented as of this encounter Plan of Treatment Upcoming Encounters Date Type Department Care Team (Late st Contact Info) Description 10/20/2024 3:00 PM EDT Office Visit [facility] [address] [place] [address] Drake Morrissey MD [address] [place] [address] documented as of this encounter Procedures Procedure Name Priority Date/Time Associated Diagnosis Comments POTASSIUM Routine 01/06/2022 Hypokalemia LIPID PROFILE Routine 01/06/2022 Mixed hyperlipidemia documented in this encounter Results * Lipid profile (01/06/2022) External Cholesterol 142 SUNQUEST External Cholesterol:Hdl 4.4 SUNQUEST External Hdl Cholesterol 32 SUNQUEST External Ldl (Calc) 62.2 SUNQUEST External Triglycerides 239 SUNQUEST External Very Low Lipoprotein 47.8 SUNQUEST 01/06/2022 us Ash Landeros MD LAB BLOOD ORDERABLES Final R esult SUNQUEST * Potassium (01/06/2022) External Potassium K 4.1 SUNQUEST 01/06/2022 us Ash Landeros MD LAB BLOOD ORDERABLES Final R esult ROSEMARY documented in this encounter Visit Diagnoses Diagnosis Hypokalemia Hypopotassemia Mixed hyperlipidemia documented in this encounter Additional Health Concerns Assessment Noted Time PHQ-9 Depression Total Score: 0 04/13/19 23 7:00 AM EST A Body Mass Index follow-up plan has been documented for the patient 04/29/2020 3:01 PM EDT documented as of this encounter Care Teams Diecast Machine Operator Relationship Specialty Start Date End Date Ash Landeros MD [address]. Provider retired 05/13/24 [place] [address] PCP - General Family Medicine 11/22/17 documented as of this encounter
--- OUTSIDE RECORDS SUMMARY | 2024-07-30 09:41 | XMS_ITS | Encounter Summary ---
Author Organization [employer] Address [facility] [place]-[id number] [address] [place] [address] Care Team Providers Care Sample Checker Name Role Phone Ash Landeros MD Primary Care Provider +[phone] Encounter Details Date Type Department Care Team ([facility] Contact Info) Description 12/12/2019 Orders Only [facility] [address] [place] [address] [place] [address] [place] [address] CHOLO. Provider retired 05/13/24 [place] [address] Social History Tobacco Use Types [...] Upcoming Encounters Date Type Department Care Team ([facility] Contact Info) Description 10/20/2024 3:00 PM EDT Office Visit [facility] [address] [place] [address] Drake Morrissey MD [address] [place] [address] documented as of this encounter Visit Diagnoses Not on filedocumented in this encounter Additional Health Concerns Assessment Noted Time PHQ-9 Depression Total Score: 0 04/22/19 20 10:00 AM EDT documented as of this encounter Care Teams Sample Checker Relationship Specialty Start Date End Date Ash Landeros MD [address] [facility]. Provider retired 05/13/24 [place] [address] PCP - General Family Medicine 11/22/17 documented as of this encounter
--- OUTSIDE RECORDS SUMMARY | 2024-07-30 09:41 | XMS_ITS | Encounter Summary ---
Author Organization [facility] [employer] Sys tem Address [facility] [id number] [address] [place] [address] Care Team Providers Care Water Chaser Name Role Phone Ash Landeros MD Primary Care Provider + [phone] Encounter Details Date Type Department Care Team (Late st Contact Info) Description 05/07/2023 Orders Only [facility] [address] [place] [address] Cynthia Taylor CMA Essential hypertension, benign Social History Tobacco Use Types Packs/Day Years [...] often do you attend chur ch or spiritism services? Never 03/23/2020 Do you belong to any clubs o r organizations such as islam groups, unions, fraternal or athletic groups, or [...] Answer Date Recorded Total Score 0 04/02/2023 [facility] Occupat ional Health - Occupational [...] Do you need help finding a [facility] career center and/or a training program? [...] EDT Office Visit [facility] [address] [place] [address] Drake Morrissey MD [address] [place] [address] documented as of this encounter Procedures Procedure Name Priority Date/Time Associated Diagnosis Comments BASIC METABOLIC PANEL Routine 05/07/2023 Essential hypertension, benign documented in this encounter Results * Basic Metabolic Panel (05/07/2023) Blood 05/07/2023 us Ash Landeros MD LAB BLOOD ORDERABLES Final R esult SUNQUEST documented in this encounter Visit Diagnoses Diagnosis Essential hypertension, benign documented in this encounter Additional Health Concerns Assessment Noted Time PHQ-9 Depression Total Score: 0 04/02/19 24 7:00 AM EST A Body Mass Index follow-up plan has been documented for the patient 04/29/2020 3:01 PM EDT documented as of this encounter Care Teams Water Chaser Relationship Specialty [place] [address] [place] [address]. Provider retired 05/13/24 [place] [address] PCP - General Family Medicine 11/22/17 documented as of this encounter
--- OUTSIDE RECORDS SUMMARY | 2024-07-30 09:41 | XMS_ITS | Encounter Summary ---
Author Organization [facility] [employer] Sys tem Address [facility] [id number] [address] [place] [address] Care Team Providers Care Forensics Team Director Name Role Phone Ash Landeros MD Primary Care Provider +[phone] Encounter Details Date Type Department Care Team (Late st Contact Info) Description 05/02/2022 Orders Only [facility] [address] [place] [address] Guzman, Kamla, DECAL TRANSFERRER Mixed hyperlipidemia Social History Tobacco Use Types [...] often do you attend chur ch or pentecostalism services? Never 03/23/2020 Do you belong to any clubs o r organizations such as mandaen groups, unions, fraternal or athletic groups, or [...] Answer Date Recorded Total Score 0 04/12/2022 [facility] of Occupat ional Health - Occupational [...] Recorded Do you need help finding a [facility] career center and/or a training program? [...] EDT Office Visit [facility] [address] [place] [address] Drake Morrissey MD [address] [place] [address] documented as of this encounter Procedures Procedure Name Priority Date/Time Associated Diagnosis Comments GGT Routine 05/01/2022 Mixed hyperlipidemia ALT Routine 05/01/2022 Mixed hyperlipidemia AST Routine 05/01/2022 Mixed hyperlipidemia documented in this encounter Results * GGT (05/01/2022) 05/01/2022 us Ash Landeros MD LAB BLOOD ORDERABLES Final R esult Performing Organization Address City/[facility]/ZIP Co de Phone Number SUNQUEST * ALT (05/01/2022) 05/01/2022 Ash Landeros MD LAB BLOOD ORDERABLES Final R esult SUNQUEST * AST (05/01/2022) 05/01/2022 us Ash Landeros MD LAB BLOOD ORDERABLES Final R esult SUNQUEST documented in this encounter Visit Diagnoses Diagnosis Mixed hyperlipidemia documented in this encounter Additional Health Concerns Assessment Noted Time PHQ-9 Depression Total Score: 0 04/13/19 23 7:00 AM EST A Body Mass Index follow-up plan has been documented for the patient 04/29/2020 3:01 PM EDT documented as of this encounter Care Teams Forensics Team Director Relationship Specialty Start Date End Date Ash Landeros MD [address]. Provider retired 05/13/24 [place] [address] PCP - General Family Medicine 11/22/17 documented as of this encounter
--- OUTSIDE RECORDS SUMMARY | 2024-07-30 09:41 | XMS_ITS | Encounter Summary ---
Author Organization [employer] tem Address [facility] [place]-[id number] [address] [place] [address] Care Team Providers Care Glassware Selector Name Role Phone Ash Landeros MD Primary Care Provider [phone] Reason for Visit * Reason Comments Med Refill Encounter Details Date Type Department Care Team (Late Contact Info) Description 10/24/2019 Refill [facility] [address] [place] [address] Ash Landeros MD [address]. Provider retired 05/13/24 [place] [address] Social History Tobacco Use Types [...] Upcoming Encounters Date Type Department Care Team ([facility] Contact Info) Description 10/20/2024 3:00 PM EDT Office Visit [facility] [address] [place] [address] Drake Morrissey MD [address] [place], [place] [id number] documented as of this encounter Visit Diagnoses Not on filedocumented in this encounter Additional Health Concerns Assessment Noted Time PHQ-9 Depression Total Score: 0 04/22/19 20 10:00 AM EDT documented as of this encounter Care Teams Glassware Selector Relationship Specialty Start Date End Date Ash Landeros MD [address] [facility]. Provider retired 05/13/24 [place] [address] PCP - General Family Medicine 11/22/17 documented as of this encounter
--- OUTSIDE RECORDS SUMMARY | 2024-07-30 09:41 | XMS_ITS | Encounter Summary ---
Author Organization [facility] Sys tem Address [facility] [id number] [address] [place] [address] Care Team Providers Care Photo Specialist Name Role Phone Ash Landeros MD Primary Care Provider + [phone] Encounter Details Date Type Department Care Team (Late st Contact Info) Description 12/15/2022 Orders Only [facility] [address] [place] [address] External, Scanning Provider Social History [...] any clubs o r organizations such as yarsani groups, unions, fraternal or athletic groups, or [...] Answer Date Recorded Total Score 2 10/10/2022 [facility] of Occupat ional Health - Occupational [...] Recorded Do you need help finding a [place] [employer] career center and/or a training program? No [...] EDT Office Visit [facility] [address] [place] [address] Drake Morrissey MD [address] [place] [address] documented as of this encounter Procedures Procedure Name Priority Date/Time Associated Diagnosis Comments DIABETES EYE EXAM Routine 12/14/2022 11:40 AM EDT documented in this encounter Results * DIABETES EYE EXAM (12/14/2022 11:40 AM EDT) us Scanning Provider External HEALTH MAINTENANCE Fi nal Result MANUALLY TRANSCRIBED RESULTS documented in this encounter Visit Diagnoses Not on filedocumented in this encounter Additional Health Concerns Assessment Noted Time PHQ-9 Depression Total Score: 2 10/11/19 23 4:57 PM EDT A Body Mass Index follow-up plan has been documented for the patient 04/29/2020 3:01 PM EDT documented as of this encounter Care Teams Photo Specialist Relationship Specialty Start Date End Date Ash Landeros MD [address] [facility]. Provider retired 05/13/24 [place] [address] PCP - General Family Medicine 11/22/17 documented as of this encounter
--- OUTSIDE RECORDS SUMMARY | 2024-07-30 09:41 | XMS_ITS | Encounter Summary ---
Author [facility] Address [facility] [place]-[id number] [address] [place] [address] Care Team Providers Care Lubricating Specialist Name Role Phone Ash Landeros MD Primary Care Provider [phone] Encounter Details Date Type Department Care Team (Late Contact Info) Description 10/23/2019 [facility] [address] [place] [address] Ash Landeros MD [address]. Provider retired 05/13/24 [place] [address] Social History Tobacco Use Types [...] Telephone Encounter - Ash Landeros MD - 10/23/2019 4:15 PM EDT Nl mammogram rechekc in 12m * Telephone Encounter - Kindra Hanks - 10/23/2019 4:15 PM EDT Patient notified of test results and verbalizes understanding documented in this encounter Plan of Treatment Upcoming Encounters Date Type Department Care Team (Late st Contact Info) Description 10/20/2024 3:00 PM EDT Office Visit [facility] [address] [place] [address] Drake Morrissey MD [address] [place] [address] documented as of this encounter Visit Diagnoses Not on filedocumented in this encounter Additional Health Concerns Assessment Noted Time PHQ-9 Depression Total Score: 0 04/22/19 20 10:00 AM EDT documented as of this encounter Care Teams Lubricating Specialist Relationship Specialty Start Date End Date Ash Landeros MD [address] [facility]. Provider retired 05/13/24 [place], [place] [id number] PCP - General Family Medicine 11/22/17 documented as of this encounter
--- OUTSIDE RECORDS SUMMARY | 2024-07-30 09:41 | XMS_ITS | Encounter Summary ---
Author Organization [facility] [employer] tem Address [facility] [place]-[id number] [address] [place] [address] Care Team Providers Care Departure Clerk Name Role Phone Ash Landeros MD Primary Care Provider [phone] Encounter Details Date Type Department Care Team (Late st Contact Info) Description 09/06/2022 Orders Only [facility] [address] [place] [address] Kamla Guzman, SHAYY Mixed hyperlipidemia; Secondary diabetes mellitus ([facility]-H[facility]) Social History Tobacco Use Types Packs/Day [...] any clubs o r organizations such as jehovah's witness groups, unions, fraternal or athletic groups, or [...] Answer Date Recorded Total Score 0 04/12/2022 [facility] of Occupat ional Health - Occupational Stress [...] Do you need help finding a l al career center and/or a training program? No [...] EDT Office Visit [facility] [address] [place] [address] Drake Morrissey MD [address] [place] [address] documented as of this encounter Procedures Procedure Name Priority Date/Time Associated Diagnosis Comments THYROID PROFILE INCLUDES TSH FT4 Routine 09/04/2022 Mixed hyperlipidemia Secondary diabetes mellitus (CMS-HCC) CBC WITH AUTO DIFFERENTIAL Routine 09/04/2022 Mixed hyperlipidemia Secondary diabetes mellitus (CMS-HCC) MICROALBUMIN / CREATININE URINE RATIO Routine 09/04/2022 Mixed hyperlipidemia Secondary diabetes mellitus (CMS-HCC) LIPID PROFILE Routine 09/04/2022 Mixed hyperlipidemia Secondary diabetes mellitus (CMS-HCC) COMPREHENSIVE METABOLIC PANEL Routine 09/04/2022 Mixed hyperlipidemia Secondary diabetes mellitus (CMS-HCC) documented in this encounter Results * CBC auto differential (09/04/2022) 09/04/2022 Ash Landeros MD LAB BLOOD ORDERABLES Final R esult SUNQUEST * Comprehensive metabolic panel (09/04/2022) 09/04/2022 Ash Landeros MD LAB BLOOD ORDERABLES Final R esult Performing Organization Address [facility] de Phone Number SUNQUEST * (ABNORMAL) Lipid profile (09/04/2022) External Cholesterol 140 <=200 SUNQUEST External Cholesterol:Hdl 4.1 <=4.44 SUNQUEST External Hdl Cholesterol 34(A) 40 - 60 SUNQUEST External Ldl (Calc) 63 <=100 SUNQUEST External Triglycerides 216(A) <=150 SUNQUEST External Very Low Lipoprotein 43.2 SUNQUEST 09/04/2022 Ash Landeros MD LAB BLOOD ORDERABLES Final R esult Performing Organization Address [facility] de Phone Number SUNQUEST * Microalbumin - Albumin: Creatinine Urine Ratio (09/04/2022) External Microalbumin, Urine <1.3 SUNQUEST 09/04/2022 Result [facility] Ash Landeros MD URINE ORDERABLES Final Resul t Performing Organization Address [facility] de Phone Number SUNQUEST * Thyroid profile includes TSH FT4 (09/04/2022) 09/04/2022 Result [facility] Ash Landeros MD LAB BLOOD ORDERABLES Final R [facility] Performing Organization Address [facility] de Phone Number SUNQUEST documented in this encounter Visit Diagnoses Diagnosis Mixed hyperlipidemia Secondary diabetes mellitus (CMS-HCC) Secondary diabetes mellitus without mention of complication, not stated as uncontrolled, or unspecified documented in this encounter Additional Health Concerns Assessment Noted Time PHQ-9 Depression Total Score: 0 04/13/19 23 7:00 AM EST A Body Mass Index follow-up plan has been documented for the patient 04/29/2020 3:01 PM EDT documented as of this encounter Care Teams Departure Clerk Relationship Specialty Start Date End Date Ash Landeros MD [address]. Provider retired 05/13/24 [place] [address] PCP - General Family Medicine 11/22/17 documented as of this encounter
--- OUTSIDE RECORDS SUMMARY | 2024-07-30 09:41 | XMS_ITS | Encounter Summary ---
Author Organization [facility] Sys tem Address [facility] [place]-[id number] [address] [place] [address] Care Team Providers Care Vp Digital Marketing Name Role Phone Ash Landeros MD Primary Care Provider + [phone] Encounter Details Date Type Department Care Team (Late st Contact Info) Description 08/29/2022 Orders Only [facility] [address] [place] [address] External, Scanning Provider Social History [...] often do you attend chur ch or gnosticist services? Never 03/23/2020 Do you belong to [...] Answer Date Recorded Total Score 0 04/12/2022 [facility] of Occupat ional Health - Occupational Stress [...] Recorded Do you need help finding a [facility] career center and/or a training program? No [...] EDT Office Visit [facility] [address] [place] [address] Drake Morrissey MD [address] [place] [address] documented as of this encounter Procedures Procedure Name Priority Date/Time Associated Diagnosis Comments HEMOGLOBIN A1C Routine 08/28/2022 9:03 AM EDT documented in this encounter Results * Hemoglobin A1c (08/28/2022 9:03 AM EDT) External Hemoglobin A1C 6.6 % MANUALLY TRANSCRIBED RESULTS Comment:DONE AT ENDO OFFICE us Scanning Provider External LAB BLOOD ORDERABLES [...] documented as of this encounter Care Teams Vp Digital Marketing Relationship Specialty Start Date End Date Ash Landeros MD [address] [facility]. Provider retired 05/13/24 [place] [address] PCP - General Family Medicine 11/22/17 documented as of this encounter
--- OUTSIDE RECORDS SUMMARY | 2024-07-30 09:41 | XMS_ITS | Encounter Summary ---
Author Organization [facility] Address [facility]-[id number] [address] [place] [address] Care Team Providers Care Detective Private Eye Name Role Phone Ash Landeros MD Primary Care Provider + [phone] Reason for Visit * Reason Comments Med Refill Encounter Details Date Type Department Care Team (Late st Contact Info) Description 06/07/2022 Refill [facility] [address] [place] [address] Ash Landeros MD [address]. Provider retired 05/13/24 [place] [address] Social History Tobacco Use Types [...] often do you attend chur ch or rastafarian services? Never 03/23/2020 Do you belong to any clubs o r organizations such as religious groups, unions, fraternal or athletic groups, or [...] Answer Date Recorded Total Score 0 04/12/2022 [facility] of Occupat ional Health - [...] Recorded Do you need help finding a [facility] career center and/or a training program? [...] EDT Office Visit [facility] [address] [place] [address] Drake Morrissey MD [address] [place] [address] documented as of this encounter Visit Diagnoses Not on filedocumented in this encounter Additional Health Concerns Assessment Noted Time PHQ-9 Depression Total Score: 0 04/13/19 23 7:00 AM EST A Body Mass Index follow-up plan has been documented for the patient 04/29/2020 3:01 PM EDT documented as of this encounter Care Teams Detective Private Eye Relationship Specialty Start Date End Date Ash Landeros MD [address] [place] [address]. Provider retired 05/13/24 [place], [place] [id number] PCP - General Family Medicine 11/22/17 documented as of this encounter
--- OUTSIDE RECORDS SUMMARY | 2024-07-30 09:41 | XMS_ITS | Encounter Summary ---
Author Organization [employer] tem Address [id number] [address] [place] [address] Care Team Providers Care Director Of Patient Care Name Role Phone Ash Landeros MD Primary Care Provider [phone] Encounter Details Date Type Department Care Team ([facility] Contact Info) Description 02/10/2019 Telephone [facility] [address] [place] [address] [place] [address] [place] [address] CHOLO. Provider retired 05/13/24 [place] [address] Social History Tobacco Use Types [...] Upcoming Encounters Date Type Department Care Team ([facility] Contact Info) Description 10/20/2024 3:00 PM EDT Office Visit [facility] [address] [place] [address] Drake Morrissey MD [address] [place] [address] documented as of this encounter Visit Diagnoses Not on filedocumented in this encounter Additional Health Concerns Assessment Noted Time PHQ-9 Depression Total Score: 0 01/28/20 19 11:00 AM EST documented as of this encounter Care Teams Director Of Patient Care Relationship Specialty Start Date End Date Ash Landeros MD [address] [facility]. Provider retired 05/13/24 [place] [address] PCP - General Family Medicine 11/22/17 documented as of this encounter
--- OUTSIDE RECORDS SUMMARY | 2024-07-30 09:41 | XMS_ITS | Encounter Summary ---
[facility] Address [facility] [id number] [address] [place] [address] Care Team Providers Care Ultrasound Applications Specialist Name Role Phone Ash Landeros MD Primary Care Provider [phone] Reason for Visit * Reason Comments Med Refill Encounter Details Date Type Department Care Team (Late st Contact Info) Description 06/04/2022 Refill [facility] [address] [place] [address] Ash Landeros MD [address]. Provider retired 05/13/24 [place] [address] Social History Tobacco Use Types [...] any clubs o r organizations such as evangelical groups, unions, fraternal or athletic groups, or [...] Answer Date Recorded Total Score 0 04/12/2022 [facility] - Occupational [...] Recorded Do you need help finding a [facility] career center and/or a training program? No [...] EDT Office Visit [facility] [address] [place] [phone] Drake Morrissey MD [address] [place] [address] documented as of this encounter Visit Diagnoses Not on filedocumented in this encounter Additional Health Concerns Assessment Noted Time PHQ-9 Depression Total Score: 0 04/13/19 23 7:00 AM EST A Body Mass Index follow-up plan has been documented for the patient 04/29/2020 3:01 PM EDT documented as of this encounter Care Teams Ultrasound Applications Specialist Relationship Specialty Start Date End Date Ash Landeros MD [address] [place] [address]. Provider retired 05/13/24 [place], [place] [id number] PCP - General Family Medicine 11/22/17 documented as of this encounter
--- OUTSIDE RECORDS SUMMARY | 2024-07-30 09:41 | XMS_ITS | Clinical Summary ---
Author Organization [facility] Address [address] [place] [address] Care Team Providers Care Family Living Educator Name Role Phone Ash Rinaldi Primary Care Provider [phone] Allergies Active Allergy Reactions Criticality Noted Date Comments Lorazepam Other: See Comments 11/11/2017 Becomes combative/ delirious Codeine Swelling 11/04/2017 Swelling of the tongue Medications blood sugar diagnostic (AudematTOUCH VERIO) test strip Use as instructed 100 Strip 1 8 Active MULTI-VITAMIN ORAL Take 1 tablet by mouth once daily. Active amLODIPine (NORVASC) 10 mg tablet Take 10 mg by mouth once daily. 11 9 Active carvedilol (COREG) 25 mg tablet Take 25 mg by mouth twice daily with meals. Active ferrous sulfate (IRON) 325 mg (65 mg iron) tablet Take 325 mg by mouth once daily. Active docusate sodium (COLACE) 100 mg capsule Take 100 mg by mouth twice daily. Active acetaminophen (TYLENOL) 325 mg tablet Take 2 tablets by mouth every 6 hours as needed for Pain. 15 tablet [address] (PROTONIX) 40 mg tablet Take 40 mg by mouth once daily. Active tiZANidine (ZANAFLEX) 4 mg tablet Take 4 mg by mouth daily at bedtime. 0 Active psyllium husk (METAMUCIL) 0.4 gram cap Take by mouth once daily. Active glimepiride (AMARYL) 2 mg tablet 4 mg daily with breakfast. 1 Active lipase-protease -amylase (ZENPEP) 40,000-126,000- 168,000 unit delayed release capsule Take 2 capsules by mouth w MEALS. Take 1 tablet with each snack. 540 capsule 1 Active meloxicam (MOBIC) 15 mg tablet TAKE 1 TABLET BY MOUTH EVERY DAY 30 tablet 1 2 Active diclofenac (VOLTAREN) 1 % topical gelIndications: Costochondritis APPLY 2GM TO AFFECTED AREA TWICE DAILY NEEDED FOR PAIN DIRECTED 100 g 1 2 Active Active Problems Patient Care Coordination No te Formatting of this note migh t be different from the original. Patient Summary: 62 yo female with no known PMH who is transferred from OSH for further management of necrotizing pancreatitis of unknown etiology, with hospital course c/b c difficle colitis, ileus, and encephalopathy requiring intubation. Major Interval Events: 11/04: Admitted to MICU. Delirious, tachypneic, HTN and tachycardia on admission. Intubated. CT A/P showing necrotizing pancreatitis involving 50% pancreas. 11/05: Nonfocal neuro exam but still not following commands. CXR with new bilat infiltrates. C diff PCR positive, EIA negative. 11/06: Febrile to 101F. HDS. Slightly less distended. HPB planning ex lap with pancreas debridement. IV access issues. Dispo: Remains in MICU Discussed with staff Problem Noted Date Diagnosed Date Secondary diabetes mellitus 04/19/2020 Assessment & Plan (08/25/2020 3:18 PM EDT): Assessment: s/p partial pancreas removal Is on oral medication No recent A1c on file Daily blood sugars are stated to be between 110-130 Myofascial pain syndrome 09/23/2019 Gastroesophageal reflux disease 03/03/2019 Assessment & Plan (08/25/2020 3:17 PM EDT): Assessment: States is well controlled with medication and denies any recent exacerbations Follows with PCP and GI Pancreas tail injury 07/31/2018 Pancreatitis, necrotizing 01/16/2018 Assessment & Plan (08/25/2020 3:13 PM EDT): Assessment: states occurred in 10/2017 Treated with partial pancreas removal, splenectomy and cholecystectomy Follows with Dr. Grady Is on supplemental enzymes Malnutrition of moderate degree 12/29/2017 Obesity, Class I, BMI 30-34.9 11/30/2017 Assessment & Plan (08/25/2020 3:19 PM EDT): Assessment: Body mass index is 31.26 kg/m . Iron deficiency anemia 11/27/2017 Assessment & Plan (08/25/2020 3:19 PM EDT): Assessment: states has been well controlled with oral iron supplement No recent iron infusion or blood transfusion - history of blood transfusions in ~ 2018 without stated issue Malnutrition of mild degree 11/06/2017 Assessment & Plan (11/06/2017 12:06 PM EDT): PLAN: - Consider TPN soon if unable to start post pyloric TF d/t ileus History of ARDS 11/05/2017 Assessment & Plan (08/25/2020 3:14 PM EDT): Assessment: states was at the time of necrotizing pancreatitis in October 2017 States is doing well, no longer requiring supplemental oxygen or use of a nebulizer or an inhaler Assessment & Plan (11/05/2017 2:14 PM EDT): Assessment: Secondary to necrotizing pancreatitis PLAN: - Lung protective ventilation Acute encephalopathy 11/05/2017 Assessment & Plan (08/25/2020 3:16 PM EDT): Assessment: states occurred at time of necrotizing pancreatitis States is doing well, was told she no longer needed to follow with neurology Is able to walk without ambulation assistance Assessment & Plan (11/06/2017 12:08 PM EDT): Assessment: Multifactorial - delirium, metabolic, pancreatitis PLAN: - Optimize electrolytes - Delirium precautions - Minimize sedation as able - Management of pancreatitis Assessment & Plan (11/05/2017 2:16 PM EDT): Assessment: Multifactorial - delirium, metabolic, pancreatitis PLAN: - Optimize electrolytes - Delirium precautions - Minimize sedation as able - Management of pancreatitis Ileus 11/05/2017 Assessment & Plan (11/06/2017 12:07 PM EDT): Assessment: In setting of severe necrotizing pancreatitis and ileus PLAN: - NPO, NG to LIWS - Optimize electrolytes - Monitor KUB - See plan for 'necrotizing pancreatitis' and 'c difficile' Assessment & Plan (11/05/2017 2:02 PM EDT): Assessment: In setting of severe necrotizing pancreatitis and ileus PLAN: - NPO, NG to LIWS - Optimize electrolytes - Monitor KUB - See plan for 'necrotizing pancreatitis' and 'c difficile' C. difficile diarrhea 11/05/2017 Assessment & Plan (11/06/2017 12:07 PM EDT): Assessment: PCR positive but EIA negative (11/05). C/b ileus. PLAN: - Appreciate ID recommendations - IV flagyl, PO and rectal vanc Assessment & Plan (11/05/2017 2:00 PM EDT): Assessment: C/b ileus PLAN: - IV flagyl, PO and rectal vanc - ID consult Hypernatremia 11/05/2017 Assessment & Plan (11/06/2017 12:08 PM EDT): PLAN: - Continue D5 water infusion - Trend BMP Assessment & Plan (11/05/2017 2:00 PM EDT): PLAN: - Continue D5 water infusion - Trend BMP Necrotizing pancreatitis 11/04/2017 Assessment & Plan (11/06/2017 12:08 PM EDT): Assessment: CT A/P (11/04) necrotizing pancreatitis with extensive gas involving 50% of head, neck and body. Unclear etiology. RUQ US (11/05) nonspecific extrahepatic ductal dilation, no cholelithiasis. No alcohol h/o. Triglycerides (11/04) 145. H/o sister with 6 episodes of GS pancreatitis. PLAN: - Appreciate GI and HPB following. Planning ex lap with debridement. - Continue meropenem (SD 11/04) - Symptomatic management of abd pain and nausea - NPO, IVF PRN Assessment & Plan (11/05/2017 2:09 PM EDT): Assessment: CT A/P (11/04) necrotizing pancreatitis with extensive gas involving 50% of head, neck and body. Unclear etiology. RUQ US (11/05) nonspecific extrahepatic ductal dilation, no cholelithiasis. No alcohol h/o. Triglycerides (11/04) 145. H/o sister with 6 episodes of GS pancreatitis. PLAN: - Appreciate GI and HPB following - Symptomatic management of abd pain and nausea - Likely repeat CT in 4-5 days (around 11/09) - NPO, IVF PRN, consider TPN soon if unable to start TF d/t ileus Pancreatitis 11/03/2017 Overview (11/05/2017): Added automatically from request for surgery [id number] Hypertension 11/02/2017 Assessment & Plan (08/25/2020 3:17 PM EDT): Assessment: States is well controlled with medication Follows with PCP Denies any chest pain, shortness of breath or any palpitations. Denies any known prior DE, CVA or stent placement. Resolved Problems Problem Noted Date Diagnosed Date Resolved Date Fever 11/27/2017 08/25/2020 Obesity, Class II, BMI 35-39.9 11/15/2017 09/24/2019 Delirium 11/04/2017 08/25/2020 Assessment & Plan (11/06/2017 12:08 PM EDT): PLAN: See plan for encephalopathy Assessment & Plan (11/05/2017 1:59 PM EDT): PLAN: See plan for encephalopathy Immunizations Immunization Administration Dates Next Due influenza (IIV4) vaccine, ag e 6 mo - 64 yr, quadrivalent (AFLURIA, FLULAVAL, FLUZONE) 12/04/2017 tetanus diphtheria pertussis (Tdap) vaccine, age 7+ yr (ADACEL, BOOSTRIX) 08/19/2016 Family History Medical History Relation Comments Hypertension Brother Diabetes Father Hypertension Father Hypertension Mother Hypertension Sister Anesthesia Problems No Family History Blood Clots No Family History Clotting Disorder No Family History Relation Status Comments Brother Father Mother Sister Social History Tobacco Use Types Packs/Day Years [...] N ot on file 01/20/2020 Data from: https://www.neighborhoodatlas.medicine.[facility]/. Last address used for calculation Not on file 01/20/2020 Comments No Sex and Gender Information Value Date Recorded Sex Assigned at Not on file Legal Sex Female 2:30 PM EDT Gender Identity Not on file Sexual Orientation Not on file Last Filed Vital Signs Vital Sign Reading Time Taken Comments Blood Pressure 138/71 08/31/2020 9:30 AM EDT Pulse 74 08/31/2020 9:30 AM EDT Temperature 36.2 C (97.2 F) 08/31/2020 9:30 AM EDT Respiratory Rate 14 08/31/2020 9:30 AM EDT Oxygen Saturation 94% 08/31/2020 9:30 AM EDT Inhaled Oxygen Concentration - - Weight 83.9 kg (185 lb) 08/31/2020 7:48 AM EDT Height 163.8 cm (5' 4.5 ) 08/31/2020 7:48 AM EDT Body Mass Index 31.26 08/31/2020 7:48 AM EDT Plan of Treatment Health Maintenance Due Date Last Done Comments Diabetic Foot Exam 1967 Dilated Retinal Exam 1967 Urine Albumin:Creatinine Ratio 1967 Annual PCP Team Chronic Dise ase Visit 1975 Anxiety Screening 1975 Depression Screening 1975 Hepatitis C Screening 1975 CT Colonography 2002 Cologuard (FIT-DNA) 2002 Fecal Occult Blood 2002 Sigmoidoscopy 2002 Shingrix Vaccine (1 of 2) 2007 LDL Cholesterol 11/01/2018 11/01/2017 Pneumococcal Vaccine: 50+ (2 of 2 - PCV) 10/02/2019 10/01/2018, 07/16/2018 Colonoscopy 08/31/2021 08/31/2020 Colorectal Cancer Screening 08/31/2021 Bone Density Screening 2022 HbA1C 05/08/2022 11/08/2021, 0803/2020, 03/31/2020, Additional history exists Mammogram Screening 11/08/2022 11/08/2021, 10/23/2019, 04/03/2019, Additional history exists Covid-19 Vaccine (1 - 2023-2 5 season) 2023 Advance Directive Discussion 02/13/2024 Medicare Advantage Annual We llness Visit 02/13/2024 Influenza Vaccine (Season Ended) 2024 12/14/2019, 11/03/2018, 12/04/2017 DTaP,Tdap,Td Vaccine (2 - Td or Tdap) 08/19/2026 08/19/2016 RSV Vaccine (1 - 1-dose 75+ series) 2032 Procedures Procedure Name Priority Date/Time Associated Diagnosis Comments COLONOSCOPY Routine 08/31/2020 8:34 AM EDT from Last 3 Months or Most Recently Relevant to Health Maintenance Results * COLONOSCOPY (08/31/2020 8:34 AM EDT) [facility] Gastrointestinal Endoscopy Patient Name: Nichole Warren Procedure Date: 08/31/2020 8:34 AM Date of : 1955 Admit Type: Outpatient Age: 65 Room: SP Procedure Room 4 Gender: Female Note Status: Finalized Attending MD: Jhon Stephen DO Procedure: Colonoscopy Indications: Chronic diarrhea Providers: Jhon Stephen DO Patient Profile: This is a 65 year old female. Refer to note in patient chart for documentation of history and physical. Last Colonoscopy: none. The patient's first colonoscopy is today. Referring Physician: Medicines: See the Anesthesia note for documentation of the administered medications Complications: No immediate complications. Requesting Provider: Procedure: Pre-Anesthesia Assessment: - Prior to the procedure, a History and Physical was performed, and patient medications and allergies were reviewed. The patient is competent. The risks and benefits of the procedure and the sedation options and risks were discussed with the patient. All questions were answered and informed consent was obtained. Patient identification and proposed procedure were verified by the physician in the pre-procedure area. Mental Status Examination: alert and oriented. Airway Examination: normal oropharyngeal airway and neck mobility. Respiratory Examination: clear to auscultation. CV Examination: normal. Prophylactic Antibiotics: The patient does not require prophylactic antibiotics. Prior Anticoagulants: The patient has taken no previous anticoagulant or antiplatelet agents. ASA Grade Assessment: III - A patient with severe systemic disease. After reviewing the risks and benefits, the patient was deemed in satisfactory condition to undergo the procedure. The anesthesia plan was to use monitored anesthesia care (MAC). Immediately prior to administration of medications, the patient was re-assessed for adequacy to receive sedatives. The heart rate, respiratory rate, oxygen saturations, blood pressure, adequacy of pulmonary ventilation, and response to care were monitored throughout the procedure. The physical status of the patient was re-assessed after the procedure. After I obtained informed consent, the scope was passed under direct vision. Throughout the procedure, the patient's blood pressure, pulse, and oxygen saturations were monitored continuously. The Colonoscope was introduced through the anus and advanced to the cecum, identified by appendiceal orifice and ileocecal valve. The colonoscopy was performed without difficulty. The patient tolerated the procedure well. The quality of the bowel preparation was good. The ileocecal valve, appendiceal orifice, and rectum were photographed. Scope Withdrawal Time: 0 hours 7 minutes 5 seconds Moderate Sedation: MAC anesthesia was administered by the anesthesia team. Total Procedure Duration: 0 hours 12 minutes 6 seconds Findings: The digital rectal exam findings include non-thrombosed internal hemorrhoids and internal hemorrhoids (Grade I). A diminutive polyp was found in the sigmoid colon. The polyp was sessile. The polyp was removed with a jumbo cold forceps. Resection and retrieval were complete. Estimated blood loss: none. Multiple diverticula were found in the sigmoid colon and descending colon. Multiple biopsies were obtained with cold forceps for histology randomly in the entire colon. Estimated blood loss: none. Impression: - Non-thrombosed internal hemorrhoids and internal hemorrhoids (Grade I) found on digital rectal exam. - One diminutive polyp in the sigmoid colon, removed with a jumbo cold forceps. Resected and retrieved. - Diverticulosis in the sigmoid colon and in the descending colon. - Multiple biopsies were obtained in the entire colon. Recommendation: - Patient has a contact number available for emergencies. The signs and symptoms of potential delayed complications were discussed with the patient. Return to normal activities tomorrow. Written discharge instructions were provided to the patient. - Resume previous diet indefinitely. - Continue present medications. - Await pathology results. - Repeat colonoscopy in 5 years for surveillance. Attending Participation: I personally performed the entire procedure. Scope In: 8:46:06 AM Scope Out: 8:58:12 AM DO Jhon Fong DO 08/31/2020 9:01:33 AM This report has been signed electronically by Jhon Stephen DO Number of Addenda: 0 Note Initiated On: 08/31/2020 8:34 AM Estimated Blood Loss: Estimated blood loss: none. [facility] 08/31/2020 8:34 AM EDT Jhon Stephen DO [facility] Fi nal Result [facility] [address] [place] [address] [facility] from Last 3 Months or Most Recently Relevant to Health Maintenance Insurance [facility] MEDICARE ADVANTAGE [place] MEDICAID [place] Advance Directives Documents on File Type Date Recorded Patient Repair Table Operator Expl anation Advance Directive(s) 11/09/2017 4:21 PM SI GNED Care Teams Family Living Educator Relationship Specialty Start Date End Date Ash Rinaldi [address] [place] [address] PCP - General Family Medicine 11/23/17
--- OUTSIDE RECORDS SUMMARY | 2024-07-30 09:41 | XMS_ITS | Encounter Summary ---
Author Organization [employer] [facility] Address [facility] [id number] [address] [place] [address] Care Team Providers Care Service Cleaner Name Role Phone Ash Landeros MD Primary Care Provider [phone] Encounter Details Date Type Department Care Team ([facility] Contact Info) Description 11/21/2017 Telephone [facility] [place] [address] Leo Camacho LPN Social History Tobacco Use Types Packs/Day Years Used Date Smoking Tobacco: Never Assessed Comments Unknown Sex and Gender Information Value Date Recorded Sex Assigned at Not on file Legal Sex Female 9:48 AM EDT Gender Identity Not on file Sexual Orientation Not on file documented as of this encounter Plan of Treatment Upcoming Encounters Date Type Department Care Team ([facility] Contact Info) Description 10/20/2024 3:00 PM EDT Office Visit [facility] [place] [address] Drake Morrissey MD [address] [place] [address] documented as of this encounter Visit Diagnoses Not on filedocumented in this encounter Care Teams Service Cleaner Relationship Specialty Start Date End Date Ash Landeros MD [address] [place], [place] [address]MM[address]. Provider retired 05/13/24 [place] [address] PCP - General Family Medicine 11/22/17 documented as of this encounter
--- OUTSIDE RECORDS SUMMARY | 2024-07-30 09:41 | XMS_ITS | Encounter Summary ---
Author Organization [facility] Sys tem Address [facility] [id number] [address] [place] [address] Care Team Providers Care Car Coupler Name Role Phone Ash Landeros MD Primary Care Provider + [phone] Encounter Details Date Type Department Care Team (Late st Contact Info) Description 04/16/2024 Orders Only [facility] [address] [place] [address] External, Scanning Provider Social History [...] often do you attend chur ch or hinduism services? Never 03/23/2020 Do you belong to [...] Answer Date Recorded Total Score 1 10/16/2023 [facility] [place] [facility] Health - Occupational Stress [...] EDT Office Visit [facility] [address] [place] [phone] Drake Morrissey MD [address] [place] [address] documented as of this encounter Procedures Procedure Name Priority Date/Time Associated Diagnosis Comments HEMOGLOBIN A1C Routine 04/16/2024 12:38 PM EST documented in this encounter Results * Hemoglobin A1c (04/16/2024 12:38 PM EST) External Hemoglobin A1C 7.1 % MANUALLY TRANSCRIBED RESULTS us Scanning Provider [...] documented as of this encounter Care Teams Car Coupler Relationship Specialty [place] [address] [place] [address]. Provider retired 05/13/24 [place] [address] PCP - General Family Medicine 11/22/17 documented as of this encounter
--- OUTSIDE RECORDS SUMMARY | 2024-07-30 09:41 | XMS_ITS | Encounter Summary ---
Author Organization [facility] Sys tem Address [facility] [place]-[id number] [address] [place] [address] Care Team Providers Care Motor Vehicle Dispatcher Name Role Phone Ash Landeros MD Primary Care Provider + [phone] Encounter Details Date Type Department Care Team (Late st Contact Info) Description 01/20/2021 Orders Only [facility] [address] [place] [address] External, Scanning Provider Social History [...] often do you attend chur ch or confucianism services? Never 03/23/2020 Do you belong to [...] PHQ-2 Answer Date Recorded Total Score 0 12/27/2020 [facility] [place] of Occupat ional Health - Occupational Stress [...] Recorded Do you need help finding a [employer] career center and/or a training program? [...] have Coronavirus / COVID-19? No / Unsure 01/11/2021 9:24 AM EST documented as of this encounter Plan of Treatment Upcoming Encounters Date Type Department Care Team (Late st Contact Info) Description 10/20/2024 3:00 PM EDT Office Visit [facility] [address] [place] [phone] Drake Morrissey MD [address] [place] [phone] documented as of this encounter Procedures Procedure Name Priority Date/Time Associated Diagnosis Comments CT BRAIN WO CONT Routine 01/17/2021 documented in this encounter Results * CT brain without contrast (01/17/2021) Anatomical Region Laterality Modality Neuro, Head, Head and Neck, Neuro Covera N/A Computed Tomography 01/17/2021 Narrative 01/17/2021 PATIENT AWARE OF RESULTS us Scanning Provider External IMG CT ORDERABLES Fin al Result documented in this encounter Visit Diagnoses Not on filedocumented in this encounter Additional Health Concerns Assessment Noted Time PHQ-9 Depression Total Score: 0 12/28/19 21 9:00 AM EST A Body Mass Index follow-up plan has been documented for the patient 04/29/2020 3:01 PM EDT documented as of this encounter Care Teams Motor Vehicle Dispatcher Relationship Specialty Start Date End Date Ash Landeros MD [address] [place] [address]. Provider retired 05/13/24 [place], [place] [id number] PCP - General Family Medicine 11/22/17 documented as of this encounter
--- OUTSIDE RECORDS SUMMARY | 2024-07-30 09:41 | XMS_ITS | Encounter Summary ---
Author Organization [employer] Sys tem Address [facility] [place][id number] [address] [place] [address] Care Team Providers Care Events Solutions Consultant Name Role Phone Ash Landeros MD Primary Care Provider + [phone] Encounter Details Date Type Department Care Team (Late st Contact Info) Description 04/05/2022 [facility] [address] [place] [address] Cynthia Taylor CMA Social History Tobacco Use Types Packs/Day Years [...] often do you attend chur ch or hindu services? Never 03/23/2020 Do you belong to any clubs o r organizations such as restoration groups, unions, fraternal or athletic groups, or [...] Answer Date Recorded Total Score 2 10/11/2021 [facility] [place] of Occupat ional Health - Occupational Stress [...] encounter Miscellaneous Notes * Telephone Encounter - Cynthia Taylor CMA - 04/05/2022 1:35 PM EST Please dc glimepiride as patient is no longer taking. documented in this encounter Plan of Treatment Upcoming Encounters Date Type Department Care Team (Late st Contact Info) Description 10/20/2024 3:00 PM EDT Office Visit [facility] [address] [place] [phone] Drake Morrissey MD [address] [place] [address] documented as of this encounter Visit Diagnoses Not on filedocumented in this encounter Additional Health Concerns Assessment Noted Time PHQ-9 Depression Total Score: 2 10/12/19 22 8:00 AM EDT A Body Mass Index follow-up plan has been documented for the patient 04/29/2020 3:01 PM EDT documented as of this encounter Care Teams Events Solutions Consultant Relationship Specialty Start Date End Date Ash Landeros MD [address] [facility]. Provider retired 05/13/24 [place] [address] PCP - General Family Medicine 11/22/17 documented as of this encounter
--- OUTSIDE RECORDS SUMMARY | 2024-07-30 09:41 | XMS_ITS | Encounter Summary ---
Author Organization [facility] Address [facility]-[id number] [address] [place] [address] Care Team Providers Care Inventory Control Assistant Name Role Phone Ash Landeros MD Primary Care Provider +[phone] Reason for Visit * Reason Comments Med Refill Encounter Details Date Type Department Care Team (Late st Contact Info) Description 05/04/2022 Refill [facility] [address] [place] [address] Ash Landeros MD [address]. Provider retired 05/13/24 [place] [address] Social History Tobacco Use Types [...] often do you attend chur ch or jewish services? Never 03/23/2020 Do you belong to any clubs o r organizations such as episcopal groups, unions, fraternal [...] Answer Date Recorded Total Score 0 04/12/2022 [facility] of Occupat ional Health - Occupational Stress [...] Recorded Do you need help finding a [facility] career center and/or a training [...] Office Visit [facility] [address] [place] [phone] Drake Morrissey MD [address] [place] [phone] documented as of this encounter Visit Diagnoses Not on filedocumented in this encounter Additional Health Concerns Assessment Noted Time PHQ-9 Depression Total Score: 0 04/13/19 23 7:00 AM EST A Body Mass Index follow-up plan has been documented for the patient 04/29/2020 3:01 PM EDT documented as of this encounter Care Teams Inventory Control Assistant Relationship Specialty [place] [address] [place] [address] [facility]. Provider retired 05/13/24 [place] [address] PCP - General Family Medicine 11/22/17 documented as of this encounter
--- OUTSIDE RECORDS SUMMARY | 2024-07-30 09:41 | XMS_ITS | Encounter Summary ---
Author Organization [facility] Sys tem Address [facility][id number] [address] [place] [address] Care Team Providers Care Neonatal Intensive Care Unit Nurse Name Role Phone Ash Landeros MD Primary Care Provider + [phone] Encounter Details Date Type Department Care Team (Late st Contact Info) Description 06/20/2023 Orders Only [facility] [address] [place] [address] External, Scanning Provider Social History [...] often do you attend chur ch or faith services? Never 03/23/2020 Do you belong to any clubs o r organizations such as methodist groups, unions, fraternal [...] Answer Date Recorded Total Score 0 04/02/2023 [facility] [place] of Occupat ional Health - Occupational Stress [...] Recorded Do you need help finding a [facility] career center and/or a training program? [...] EDT Office Visit [facility] [address] [place] [phone] Drake Morrissey MD [address] [place], [place] [phone] documented as of this encounter Procedures Procedure Name Priority Date/Time Associated Diagnosis Comments HEMOGLOBIN A1C Routine 06/18/2023 documented in this encounter Results * Hemoglobin A1c (06/18/2023) External Hemoglobin A1C 7.7 % MANUALLY TRANSCRIBED RESULTS 06/18/2023 Narrative MANUALLY TRANSCRIBED RESULTS - 06/18/2023 Done at Endocrinology Office us Scanning Provider [...] documented as of this encounter Care Teams Neonatal Intensive Care Unit Nurse Relationship Specialty Start Date End Date Ash Landeros MD [address] [facility]. Provider retired 05/13/24 [place] [address] PCP - General Family Medicine 11/22/17 documented as of this encounter
--- OUTSIDE RECORDS SUMMARY | 2024-07-30 09:41 | XMS_ITS | Encounter Summary ---
Author Organization [facility] [employer] Sys tem Address [facility] [id number] [address] [place] [address] Care Team Providers Care Helicopter Engineer Name Role Phone Ash Landeros MD Primary Care Provider + [phone] Encounter Details Date Type Department Care Team (Late st Contact Info) Description 01/09/2022 Telephone [facility] [address] [place] [address] Ash Landeros MD [address]. Provider retired 05/13/24 [place] [address] Social History Tobacco Use Types [...] often do you attend chur ch or evangelical services? Never 03/23/2020 Do you belong to any clubs o r organizations such as episcopalian groups, unions, fraternal or athletic groups, or [...] Answer Date Recorded Total Score 2 10/11/2021 [facility] of Occupat ional Health - Occupational Stress [...] Do you need help finding a [facility] career center and/or a training [...] Telephone Encounter - Ash Landeros MD - 01/09/2022 2:32 PM EST Anneliese's sugar is 342 , she needs appointment ASARP to discuss meds, glucose and AODM * Telephone Encounter - Kindra Hanks - 01/09/2022 2:32 PM EST I called patient. Her diabetes is being managed by Boy Phillips. She saw her on 01/04/22 (note willbe scanned in today) Boy changed her medications and is monitoring her sugar documented in this encounter Plan of Treatment Upcoming Encounters Date Type Department Care Team (Late st Contact Info) Description 10/20/2024 3:00 PM EDT Office Visit [facility] [address] [place] [phone] Drake Morrissey MD [address] [place] [address] documented as of this encounter Visit Diagnoses Not on filedocumented in this encounter Additional Health Concerns Assessment Noted Time PHQ-9 Depression Total Score: 2 10/12/19 8:00 AM EDT A Body Mass Index follow-up plan has been documented for the patient 04/29/2020 3:01 PM EDT documented as of this encounter Care Teams Helicopter Engineer Relationship Specialty Start Date End Date Ash Landeros MD [address] [place] [address]. Provider retired 05/13/24 [place], [place] [phone] PCP - General Family Medicine 11/22/17 documented as of this encounter
--- OUTSIDE RECORDS SUMMARY | 2024-07-30 09:41 | XMS_ITS | Encounter Summary ---
Author Organization [facility] Address [facility] [place]-[id number] [address] [place] [address] Care Team Providers Care Flatbed Truck Driver Name Role Phone Ash Landeros MD Primary Care Provider [phone] Reason for Visit * Reason Onset Date Comments Med Refill 04/27/2023 Encounter Details Date Type Department Care Team (Late st Contact Info) Description 04/27/2023 Refill [facility] [address] [place] [address] Yohana Keller LPN Social History [...] often do you attend chur ch or restorationism services? Never 03/23/2020 Do you belong to any clubs o r organizations such as moravian groups, unions, fraternal or athletic groups, or [...] Answer Date Recorded Total Score 0 04/02/2023 [facility] [place] of Occupat ional Health - Occupational Stress [...] EDT Office Visit [facility] [address] [place], [place] [address] [phone] Drake Morrissey MD [address] [place], [place] [phone] documented as of this encounter Visit Diagnoses Not on filedocumented in this encounter Additional Health Concerns Assessment Noted Time PHQ-9 Depression Total Score: 0 04/02/19 24 7:00 AM EST A Body Mass Index follow-up plan has been documented for the patient 04/29/2020 3:01 PM EDT documented as of this encounter Care Teams Flatbed Truck Driver Relationship Specialty Start Date End Date Ash Landeros MD [address] [place] [address]. Provider retired 05/13/24 [place] [address] PCP - General Family Medicine 11/22/17 documented as of this encounter
--- OUTSIDE RECORDS SUMMARY | 2024-07-30 09:41 | XMS_ITS | Encounter Summary ---
Author Organization [employer] Sys tem Address [facility] [id number] [address] [place] [address] Care Team Providers Care Acid Etch Operator Name Role Phone Ash Landeros MD Primary Care Provider [phone] Encounter Details Date Type Department Care Team (Late Contact Info) Description 10/27/2019 [facility] [address] [place] [address] Ash Landeros MD [address] [place]. Provider retired 05/13/24 [place] [address] Social History Tobacco Use Types [...] encounter Miscellaneous Notes * Telephone Encounter - Ninoska Hemphill - 10/27/2019 2:02 PM EDT Patient's BP is 168/72, 172/77, 179/87 Would you like to make any changes? * Telephone Encounter - Ash Landeros MD - 10/27/2019 2:02 PM EDT Please increase amlodipine to 5mg x 2qd, was on 1 qd, continue serial bp chacks and send results tous in 1 week * Telephone Encounter - Ninoska Hemphill - 10/27/2019 2:02 PM EDT Patient called and notified of changes documented in this encounter Plan of Treatment Upcoming Encounters Date Type Department Care Team (Late st Contact Info) Description 10/20/2024 3:00 PM EDT Office Visit [facility] [address] [place] [phone] Drake Morrissey MD [address] [place] [phone] documented as of this encounter Visit Diagnoses Not on filedocumented in this encounter Additional Health Concerns Assessment Noted Time PHQ-9 Depression Total Score: 0 04/22/19 20 10:00 AM EDT documented as of this encounter Care Teams Acid Etch Operator Relationship Specialty Start Date End Date Ash Landeros MD [address] [place] [address]. Provider retired 05/13/24 [place] [address] PCP - General Family Medicine 11/22/17 documented as of this encounter
--- OUTSIDE RECORDS SUMMARY | 2024-07-30 09:41 | XMS_ITS | Encounter Summary ---
Author Organization [facility] [employer] Sys tem Address [facility] [place]-[id number] [address] [place] [address] Care Team Providers Care Milk Inspector Name Role Phone Ash Landeros MD Primary Care Provider [phone] Encounter Details Date Type Department Care Team (Late st Contact Info) Description 11/11/2021 Orders Only [facility] [address] [place] [address] Kamla Guzman CMA Encounter for screening mammogram for malignant neoplasm of breast; Secondary diabetes mellitus ([facility]) Social History Tobacco Use Types Packs/Day Years [...] Answer Date Recorded Total Score 2 10/11/2021 [facility] [place] of Occupat ional Health - Occupational Stress [...] EDT Office Visit [facility] [address] [place] [phone] Drake Morrissey MD [address] [place] [address] documented as of this encounter Procedures Procedure Name Priority Date/Time Associated Diagnosis Comments MAMM SCREENING BILATERAL W CAD Routine 11/08/2021 Encounter for screening mammogram for malignant neoplasm of breast THYROID PROFILE INCLUDES TSH FT4 Routine 11/08/2021 Secondary diabetes mellitus ([facility]) CBC WITH AUTO DIFFERENTIAL Routine 11/08/2021 Secondary diabetes mellitus ([facility]) MICROALBUMIN / CREATININE URINE RATIO Routine 11/08/2021 Secondary diabetes mellitus ([facility] [place] [facility] HEMOGLOBIN A1C Routine 11/08/2021 Secondary diabetes mellitus ([facility]) LIPID PROFILE Routine 11/08/2021 Secondary diabetes mellitus ([facility]) COMPREHENSIVE METABOLIC PANEL Routine 11/08/2021 Secondary diabetes mellitus ([facility]) documented in this encounter Results * CBC auto differential (11/08/2021) 11/08/2021 Ash Landeros MD LAB BLOOD ORDERABLES Final R esult Performing Organization Address [facility]/ZIP Co de Phone Number [facility] Incubator * Comprehensive metabolic panel (11/08/2021) 11/08/2021 Ash Landeros MD LAB BLOOD ORDERABLES Final R esult Performing Organization Address City/[facility]/ZIP Co de Phone Number [facility]QUEST * (ABNORMAL) Lipid profile (11/08/2021) External Cholesterol:Hdl 6.0 [facility] External Ldl (Calc) 74.6 [facility] External Triglycerides 382(A) <=150 [facility] External Very Low Lipoprotein 76.4 [facility] 11/08/2021 Ash Landeros MD LAB BLOOD ORDERABLES Final R esult Performing Organization Address [facility] de Phone Number SUNQUEST * Microalbumin - Albumin: Creatinine Urine Ratio (11/08/2021) 11/08/2021 Ash Landeros MD URINE ORDERABLES Final Resul t Performing Organization Address [facility] de Phone Number SUNQUEST * Thyroid profile includes TSH FT4 (11/08/2021) 11/08/2021 Result [facility] Ash Landeros MD LAB BLOOD ORDERABLES Final R esult Performing Organization Address [facility] de Phone Number SUNQUEST * Hemoglobin A1c (11/08/2021) External Hemoglobin A1C 11.1 % [facility] 11/08/2021 Result [facility] Ash Landeros MD LAB BLOOD ORDERABLES Final R esult Performing Organization Address [facility] de Phone Number SUNQUEST * Mammography screening bilateral with CAD (11/08/2021) Anatomical Region Laterality Modality Breast Bilateral Mammography Result [facility] Ash Landeros MD IMG MAMMOGRAPHY ORDERABLES F inal Result documented in this encounter Visit Diagnoses Diagnosis Encounter for screening mammogram for malignant neoplasm of breast Secondary diabetes mellitus ([facility]-HCC) Secondary diabetes mellitus without mention of complication, not stated as uncontrolled, or unspecified documented in this encounter Additional Health Concerns Assessment Noted Time PHQ-9 Depression Total Score: 2 10/12/19 22 8:00 AM EDT A Body Mass Index follow-up plan has been documented for the patient 04/29/2020 3:01 PM EDT documented as of this encounter Care Teams Milk Inspector Relationship Specialty Start Date End Date Ash Landeros MD [address]. Provider retired 05/13/24 [place] [address] PCP - General Family Medicine 11/22/17 documented as of this encounter
--- OUTSIDE RECORDS SUMMARY | 2024-07-30 09:41 | XMS_ITS | Encounter Summary ---
Author Organization [facility] Address [facility] [place] [address] Care Team Providers Care Float Operator Name Role Phone Ash Rinaldi Primary Care Provider [phone] Source Comments In the event this information is protected by the Federal Confidentiality of Alcohol and Drug AbusePatient Records regulations: The Federal rules restrict any use of the information to criminally investigate or prosecute any alcohol or drug abuse patient.[facility] Encounter Details Date Type Department Care Team (Late st Contact Info) Description 10/27/2019 Get Medical Advice [facility] [address] [phone] Jhon Acosta MD [address] [facility] [address] [place] [address] RE: Visit Follow Up Question [...] have Coronavirus / COVID-19? No / Unsure 10/29/2019 11:03 AM EDT documented as of this encounter [...] on filedocumented in this encounter Care Teams Float Operator Relationship Specialty Start Date End Date Ash Rinaldi [address] [place] [address] PCP - General Family Medicine 11/23/17 documented as of this encounter
--- OUTSIDE RECORDS SUMMARY | 2024-07-30 09:41 | XMS_ITS | Encounter Summary ---
Author Organization [facility] Address [facility] [place][id number] [address] [place] [address] Care Team Providers Care Assistant Professor Of Spanish Name Role Phone Ash Landeros MD Primary Care Provider [phone] Reason for Visit * Reason Comments Med Refill Encounter Details Date Type Department Care Team (Late st Contact Info) Description 09/22/2022 Refill [facility] [address] [place] [address] Ash Landeros MD [address]. Provider retired 05/13/24 [place] [address] Social History Tobacco Use Types [...] often do you attend chur ch or jew services? Never 03/23/2020 Do you belong to any clubs o r organizations such as scientology groups, unions, fraternal or athletic groups, or [...] Answer Date Recorded Total Score 0 04/12/2022 [facility] of Occupat ional Health - Occupational [...] Recorded Do you need help finding a [facility] career center and/or a training [...] EDT Office Visit [facility] [address] [place] [phone] Drake Morrissey MD [address] [place] [address] documented as of this encounter Visit Diagnoses Not on filedocumented in this encounter Additional Health Concerns Assessment Noted Time PHQ-9 Depression Total Score: 0 04/13/19 23 7:00 AM EST A Body Mass Index follow-up plan has been documented for the patient 04/29/2020 3:01 PM EDT documented as of this encounter Care Teams Assistant Professor Of Spanish Relationship Specialty Start Date End Date Ash Landeros MD [address] [place] [address]. Provider retired 05/13/24 [place], [place] [phone] PCP - General Family Medicine 11/22/17 documented as of this encounter
--- OUTSIDE RECORDS SUMMARY | 2024-07-30 09:41 | XMS_ITS | Encounter Summary ---
Author Organization [employer] tem Address [facility] [place][id number] [address] [place] [address] Care Team Providers Care Golf Caddy Name Role Phone Ash Landeros MD Primary Care Provider [phone] Reason for Visit * Reason Onset Date Comments Med Refill 01/11/2019 Encounter Details Date Type Department Care Team (Late Contact Info) Description 01/11/2019 Refill [facility] [place] [phone] Ash Landeros MD [address]. Provider retired 05/13/24 [place], [place] [phone] Social History Tobacco Use Types Packs/Day Years [...] EDT Office Visit [facility] [place] [address] Drake Morrissey MD [address] [place], [place] [phone] documented as of this encounter Visit Diagnoses Not on filedocumented in this encounter Additional Health Concerns Assessment Noted Time PHQ-9 Depression Total Score: 0 12/26/19 19 10:00 AM EST documented as of this encounter Care Teams Golf Caddy Relationship Specialty Start Date End Date Ash Landeros MD [address] [facility]. Provider retired 05/13/24 [place], [place] [phone] PCP - General Family Medicine 11/22/17 documented as of this encounter
--- OUTSIDE RECORDS SUMMARY | 2024-07-30 09:42 | XMS_ITS | Encounter Summary ---
Author Organization [facility] Sys tem Address [facility] [place]-[id number] [address] [place] [address] Care Team Providers Care Property Specialist Name Role Phone Ash Landeros MD Primary Care Provider + [phone] Encounter Details Date Type Department Care Team (Late st Contact Info) Description 01/02/2024 Orders Only [facility] [address] [place] [address] External, Scanning Provider Social History [...] often do you attend chur ch or baptism services? Never 03/23/2020 Do you belong to any clubs o r organizations such as judaism groups, unions, fraternal or athletic groups, or [...] Answer Date Recorded Total Score 1 10/16/2023 [facility] [place] of Occupat ional Health - Occupational Stress [...] EDT Office Visit [facility] [address] [phone] Drake Morrissey MD [address] [place] [address] documented as of this encounter Procedures Procedure Name Priority Date/Time Associated Diagnosis Comments HEMOGLOBIN A1C Routine 12/31/2023 documented in this encounter Results * Hemoglobin A1c (12/31/2023) External Hemoglobin A1C 7.2 % MANUALLY TRANSCRIBED RESULTS 12/31/2023 Narrative MANUALLY TRANSCRIBED RESULTS - 12/31/2023 Done at Endocrinology Office us Scanning Provider [...] documented as of this encounter Care Teams Property Specialist Relationship Specialty Start Date End Date Ash Landeros MD [address] [facility]. Provider retired 05/13/24 [place] [address] PCP - General Family Medicine 11/22/17 documented as of this encounter
--- OUTSIDE RECORDS SUMMARY | 2024-07-30 09:42 | XMS_ITS | Encounter Summary ---
Author Organization [facility] Sys tem Address [facility] [id number] [address] [place] [address] Care Team Providers Care Thermoforming Operator Name Role Phone Ash Landeros MD Primary Care Provider + [phone] Encounter Details Date Type Department Care Team (Late st Contact Info) Description 11/30/2023 Orders Only [facility] [address] [place] [address] External, Scanning Provider Social History [...] often do you attend chur ch or nondenominational services? Never 03/23/2020 Do you belong to any clubs o r organizations such as samaritan groups, unions, fraternal or athletic groups, or [...] Answer Date Recorded Total Score 1 10/16/2023 [facility] [place] of Occupat ional Health - Occupational Stress [...] Recorded Do you need help finding a [facility] career center and/or a [...] Office Visit [facility] [address] [place] [address] Drake Morrissey MD [address] [place] [address] documented as of this encounter Procedures Procedure Name Priority Date/Time Associated Diagnosis Comments LIPID PROFILE Routine 11/30/2023 1:18 PM EDT documented in this encounter Results * Lipid profile (11/30/2023 1:18 PM EDT) External Cholesterol 149 MANUALLY TRANSCRIBED RESULTS External Cholesterol:Hdl 4.3 MANUALLY TRANSCRIBED RESULTS External Hdl Cholesterol 35 MANUALLY TRANSCRIBED RESULTS External Ldl (Calc) 58 MANUALLY TRANSCRIBED RESULTS External Triglycerides 284 MANUALLY TRANSCRIBED RESULTS External Very Low Lipoprotein 56.8 MANUALLY TRANSCRIBED RESULTS us Scanning Provider External [...] documented as of this encounter Care Teams Thermoforming Operator Relationship Specialty Start Date End Date Ash Landeros MD [address] [facility]. Provider retired 05/13/24 [place] [address] PCP - General Family Medicine 11/22/17 documented as of this encounter
--- OUTSIDE RECORDS SUMMARY | 2024-07-30 09:42 | XMS_ITS | Clinical Summary ---
Author Organization [employer] tem Address [facility] [id number] [address] [place] [address] Care Team Providers Care Washroom Cleaner Name Role Phone Ash Landeros MD Primary Care Provider Allergies Active Allergy Reactions Criticality Noted Date Comments Codeine Other (See Comments),Swelling High 11/01/2017 Swelling of the tongue Swelling of tongue Lorazepam Rash Low 11/11/2017 Becomes combative/ delirious Medications lancets (ULTRA THIN LANCETS) 30 gauge misc TEST TWICE DAILY *K85.91* 100 each 5 07/10/19 Active ZENPEP 40,000-126,000- 168,000 unit capsule,delayed release(DR/EC) TAKE 2 CAPSULES BY MOUTH WITH MEALS AND 1 CAPSULE WITH EACH SNACK 270 capsule 5 02/11/20 19 Active blood sugar diagnostic (TRUE METRIX GLUCOSE TEST STRIP) stripIndications:N ecrotizing pancreatitis TEST TWICE A DAY 50 strip 7 01/29/20 Active psyllium husk (METAMUCIL) 0.4 gram capsule Take by mouth daily. Active multivitamin (THERAGRAN) tablet Take 1 tablet by mouth in the morning. Active DEXCOM G6 MECHANICAL DESIGN ENGINEER FACILITIES misc USE as directed TO monitor blood glucose 01/25/20 Active DEXCOM G6 SENSOR device CHANGE every 10 DAYS as directed 01/25/20 Active DEXCOM G6 TRANSMITTER device CHANGE every three MONTHS as directed with G6 Sensor 01/25/20 Active ADE JI U-300 INSULIN 300 unit/mL (1.5 mL) insulin pen INJECT 10 UNITS IN THE MORNING. TITRATE UP TO 20 UNITS SUBCUTANEOUSLY PER DAY EVERY MORNING 03/13/19 23 Active HumaLOG KwikPen Insulin 100 unit/mL insulin pen 1:25 CORRECTIVE SCALE BEFORE MEAL 3TIMES DAILY SUBCUTANEOUSLY DIRECTED*EXPECT UP TO 20UNITS DAILY 03/13/19 23 Active lancing device [facility] [place] 03/03/19 23 Active BD ULTRA-FINE NAREN PEN NEEDLE 32 gauge x 5/32 needle 4 (four) times a day. 03/20/19 23 Active amLODIPine (NORVASC) 10 mg tablet TAKE 1 TABLET BY MOUTH EVERY DAY 90 tablet 3 01/18/20 23 Active Additional Information Patient not taking.Reported on 10/16/2023 benzonatate (TESSALON PERLES) 200 mg capsule Take 1 capsule (200 mg total) by mouth 3 (three) times a day as needed for cough. 30 capsule 1 04/18/19 24 Active Additional Information Patient not taking.Reported on 10/16/2023 pantoprazole (PROTONIX) 40 mg EC tablet TAKE 1 TABLET (40 MG TOTAL) BY MOUTH IN THE MORNING 90 tablet 3 06/18/19 24 Active atorvastatin (LIPITOR) 10 mg tabletIndications: Mixed hyperlipidemia TAKE 1 TABLET (10 MG TOTAL) BY MOUTH IN THE MORNING 90 tablet 3 06/18/19 24 Active diclofenac sodium (VOLTAREN) 1 % gel Apply to affected area tid 100 g 7 08/20/19 24 Active lidocaine (LIDODERM) 5 % Place 1 patch on the skin in the morning. 30 patch 7 08/20/19 24 Active cholecalciferol, vitamin D3, (VITAMIN D3) 5,000 units capsule 1 capsule (5,000 Units total). 06/18/19 24 Active T:SLIM [facility] 08/20/19 24 Active ACCU-CHEK GUIDE L1-L2 CTRL MISTY solution 08/15/19 24 Active docusate sodium (COLACE) 100 mg capsule Daily 06/18/19 24 Active HumaLOG U-100 Insulin 100 unit/mL injection USE WITH INSULIN PUMP SUBCUTANEOUSLY UP TO 100 UNITS PER DAY DIRECTED 08/30/19 24 Active ondansetron (ZOFRAN) 4 mg tabletIndications: Necrotizing pancreatitis Take 1 tablet (4 mg total) by mouth every 8 (eight) hours as needed for nausea or vomiting. 30 tablet 5 10/16/19 24 Active docusate sodium (STOOL SOFTENER) 100 mg capsule Take 1 capsule (100 mg total) by mouth in the morning and 1 capsule (100 mg total) before bedtime. 180 capsule 3 10/16/19 24 Active tiZANidine (ZANAFLEX) 4 mg tablet Take 1 tablet (4 mg total) by mouth every 8 (eight) hours as needed for muscle spasms. 270 tablet 3 10/16/19 24 Active ferrous sulfate 325 (65 FE) mg tablet Take 1 tablet (325 mg total) by mouth in the morning. 90 tablet 3 10/16/19 24 Active potassium chloride (KLOR-CON M10) 10 MEQ CR tablet Take 1 tablet (10 mEq total) by mouth in the morning and 1 tablet (10 mEq total) before bedtime. TAKE 1 TABLET (10 MEQ TOTAL) BY MOUTH IN THE MORNING. 180 tablet 3 10/22/19 24 Active hydroCHLOROthiazid e (HYDRODIURIL) 25 mg tablet TAKE 1 TABLET (25 MG TOTAL) BY MOUTH DAILY. 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 Encounters Date Type Department Care Team Description 06/20/2024 Refill [facility] [address] [place] [address] Ash Landeros MD 05/18/2024 Refill [facility] [address] [place] [address] Ash Landeros MD from Last 3 Months Immunizations Immunization Administration Dates Next Due HiB 07/16/2018 Influenza, Injectable, Mdck, Preservative Free, Quad 11/03/2018 Influenza, Injectable, Quadrivalent 12/04/2017 Influenza, Injectable, quadrivalent (PF) 020,11/03/2018 Meningococcal Conjugate 07/16/2018 Meningococcal MCV4P 10/01/2018 Pneumococcal Conjugate 20-valent 01/18/2023 Pneumococcal Polysaccharide 10/01/2018, 9 Tdap 08/19/2016 Family History Medical History Relation Name Comments Diabetes Father Relation Name Status Comments Father Social History Tobacco Use Types Packs/Day Years Used Date Smoking Tobacco: Never Smokeless Tobacco: Never Tobacco Cessation:Counseling Given: Not Answered Alcohol Use Standard Drinks/Week Comments Not Currently [...] often do you attend chur ch or islam services? Never 03/23/2020 Do you belong to [...] Answer Date Recorded Total Score 1 10/16/2023 [facility] of Occupat ional Health - [...] Recorded Do you need help finding a [facility] career center and/or a training [...] Sign Reading Time Taken Comments Blood Pressure 134/70 10/16/2023 3:08 PM EDT Pulse 88 10/16/2023 3:08 PM EDT Temperature 36.6 C (97.8 F) 10/16/2023 3:08 PM EDT Respiratory Rate 16 10/16/2023 3:08 PM EDT Oxygen Saturation 97% 10/12/2022 3:19 PM EDT Inhaled Oxygen Concentration - - Weight 92.8 kg (204 lb 8 oz) 10/16/2023 3:08 PM EDT Height 162.6 cm (5' 4 ) 10/16/2023 3:08 PM EDT Body Mass Index 35.1 10/16/2023 3:08 PM EDT Plan of Treatment Upcoming Encounters Date Type Department Care Team (Late st Contact Info) Description 10/20/2024 3:00 PM EDT Office Visit [facility] [address] [place] [address] Drake Morrissey MD [address] [place] [address] Health Maintenance Due Date Last Done Comments Adult BMI Follow Up Plan 1975 Zoster (Shingles) Vaccine (1 of 2) 2007 Diabetic Foot Exam 04/13/2023 04/12/2022, 04/29/2020 Influenza Vaccine 10/13/2024 12/14/2019, , 11/03/2018, Additional history exists Adult BMI Screening 10/15/2024 10/16/2023 Depression Screening 10/15/2024 10/16/2023 Fall Risk Screening 10/15/2024 10/16/2023 Medicare Annual Wellness Visit 10/15/2024 0 10/16/2023, 10/12/2022, 10/11/2021, Additional history exists Tobacco Screening 10/15/2024 10/16/2023 Mammogram 12/18/2024 12/19/2023, 10/14, 10/23/2019, Additional history exists Diabetic Ophthalmology Exam 12/19/2024 12/20/2023, 1 02/13/2022 DTaP,Tdap and Td Vaccines (2 - Td or Tdap) 08/19/2026 08/19/2016 Medical Devices Not on file Procedures Procedure Name Priority Date/Time Associated Diagnosis Comments DIABETES EYE EXAM Routine 12/20/2023 9:34 AM EST MAMM SCREENING BILATERAL W CAD Routine 12/19/2023 12:54 PM EST Encounter for screening mammogram for malignant neoplasm of breast from Last 3 Months or Most Recently Relevant to Health Maintenance Results * DIABETES EYE EXAM (12/20/2023 9:34 AM EST) us Scanning Provider External HEALTH MAINTENANCE Fi nal Result MANUALLY TRANSCRIBED RESULTS * Mammography screening bilateral with CAD (12/19/2023 12:54 PM EST) Anatomical Region Laterality Modality Breast Bilateral Mammography us Ash Landeros MD IMG MAMMOGRAPHY ORDERABLES F inal Result from Last 3 Months or Most Recently Relevant to Health Maintenance Insurance [employer] MED[employer]ARE [employer] Care Teams Washroom Cleaner Relationship Specialty Start Date End Date Ash Landeros MD [address]. Provider retired 05/13/24 [place] [address] PCP - General Family Medicine 11/22/17
--- OUTSIDE RECORDS SUMMARY | 2024-07-30 09:42 | XMS_ITS | Encounter Summary ---
Author Organization [facility] [employer] Sys tem Address [facility] [id number] [address] [place] [address] Care Team Providers Care White Washer Piler Name Role Phone Ash Landeros MD Primary Care Provider [phone] Encounter Details Date Type Department Care Team (Late st Contact Info) Description 12/19/2023 Orders Only [facility] [address] [place] [phone] Kamla Guzman CMA Encounter for screening mammogram for malignant neoplasm of breast Social History Tobacco Use Types Packs/Day Years [...] Answer Date Recorded Total Score 1 10/16/2023 [facility] of Occupat ional Health - Occupational [...] EDT Office Visit [facility] [address] [place] [phone] Drake Morrissey MD [address] [place] [address] documented as of this encounter Procedures Procedure Name Priority Date/Time Associated Diagnosis Comments MAMM SCREENING BILATERAL W CAD Routine 12/19/2023 12:54 PM EST Encounter for screening mammogram for malignant neoplasm of breast documented in this encounter Results * Mammography screening bilateral with CAD (12/19/2023 12:54 PM EST) Anatomical Region Laterality Modality Breast Bilateral Mammography Ash Landeros MD IMG MAMMOGRAPHY ORDERABLES F inal Result documented in this encounter Visit Diagnoses Diagnosis Encounter for screening mammogram for malignant neoplasm of breast documented in this encounter Additional Health Concerns Assessment Noted Time PHQ-9 Depression Total Score: 1 10/16/19 24 2:00 PM EDT A Body Mass Index follow-up plan has been documented for the patient 04/29/2020 3:01 PM EDT documented as of this encounter Care Teams White Washer Piler Relationship Specialty [place] [address] [place] [address]. Provider retired 05/13/24 [place] [address] PCP - General Family Medicine 11/22/17 documented as of this encounter
--- OUTSIDE RECORDS SUMMARY | 2024-07-30 09:42 | XMS_ITS | Encounter Summary ---
Author Organization [facility] Sys tem Address [facility] [id number] [address] [place] [address] Care Team Providers Care Hoisting Pile Driving Engineer Name Role Phone Ash Landeros MD Primary Care Provider + [phone] Encounter Details Date Type Department Care Team (Late st Contact Info) Description 12/20/2023 Orders Only [facility] [address] [place] [address] External, Scanning Provider Social History [...] often do you attend chur ch or episcopal services? Never 03/23/2020 Do you belong to any clubs o r organizations such as mandaeism groups, unions, fraternal or athletic groups, or [...] Answer Date Recorded Total Score 1 10/16/2023 [facility] [place] of Occupat ional Health - Occupational Stress [...] Recorded Do you need help finding a [facility] career center and/or a training program? [...] Office Visit [facility] [address] [place] [address] Drake Morrissey MD [address] [place] [address] documented as of this encounter Procedures Procedure Name Priority Date/Time Associated Diagnosis Comments DIABETES EYE EXAM Routine 12/20/2023 9:34 AM EST documented in this encounter Results * DIABETES EYE EXAM (12/20/2023 9:34 [...] documented as of this encounter Care Teams Hoisting Pile Driving Engineer Relationship Specialty Start Date End Date Ash Landeros MD [address] [facility]. Provider retired 05/13/24 [place] [address] PCP - General Family Medicine 11/22/17 documented as of this encounter
--- OUTSIDE RECORDS SUMMARY | 2024-07-30 09:51 | XMS_ITS | CCD ---
Author Organization [facility] Care Team Providers Care Customer Contact Sales Associate Name Role Phone AVASTHI, STEPH Unavailable Unavailable AVASTHI, STEPH Unavailable Unavailable JIMMIE BREWSTER Unavailable Unavailable LIBIA SHIPMAN Unavailable Unavailable TRACI CORNELIUS Unavailable Unavailable AHMADCHRISTOPHER Unavailable Unavailable Mapus, Tondra Unavailable Samia Payton Primary Care Provider [phone] SAMIA PAYTON Primary Care Unavaila [facility] [place] [...] Consulting Unavailable DEFRANCE, DR GRACIA Consulting Unavailable Defrance, MD Gracia Primary Care Provider Leti, MD Gracia Attending Provider [phone] Leti, Samia Attending Unavailable Defrance, Samia Primary Care Unavailable Defrance, Samia Admitting Unavailable DEFRANCE, SAMIA Rivas Attending Unavailable DEFRANCE, SAMIA Rivas Referring Unavailable DEFRANCE, SAMIA Rivas Primary Care Unavailable DEFRANCE, SAMIA Rivas Attending Unavailable DEFRANCE, SAMIA Rivas Referring Unavailable DEFRANCE, SAMIA Rivas Primary Care Unavailable DEFRANCE, SAMIA Rivas Attending Unavailable DEFRANCE, SAMIA T Referring SAMIA Laguerre Primary Care Unavailable Samia Landeros MD Primary Care Provider [phone] Samia Landeros MD Primary Care Provider [phone] Samia Landeros MD Primary Care Provider [phone] Allergies Allergy Classification Reported Allergen(s) Allergy Type Date of Onset Reaction(s) Facility (20 sources) Codeine; Translations: [CODEINE] Drug Allergy 8 Swelling, Other (See Comments) [facility] Work Phone: (20 sources) LORazepam; Translations: [LORAZEPAM] Drug Allergy 8 rash, Other: See Comments [facility] Work Phone: (1 source) Codeine Drug Allergy [facility] Repository (1 source) LORazepam Drug Allergy [facility] Repository (1 source) Codeine Drug Allergy 4 [facility] Repository (1 source) LORazepam Drug Allergy 4 [facility] Repository Medications Current Medications Medication Drug Class(es) Dates Sig (Normalized) Sig (Original) ACCU-CHEK GUIDE L1-L2 CTRL MISTY solution (5 sources) Start: 08-15-2023 ACCU-CHEK GUIDE L1-L2 CTRL MISTY solution 08/15/2023 Active amLODIPine 5 mg oral tablet (20 sources) Dihydropyridine Calcium Channel Juliet Start: 04-27-2023 End: 02-19-2024 take 1 tablet by mouth in the morning amLODIPine (NORVASC) 5 mg tablet TAKE 1 TABLET (5 MG TOTAL) BY MOUTH IN THE MORNING 90 tablet 2 02/19/2024 Active Start: 02-14-2018 take 1 tablet by gerald th once daily amLODIPine (NORVASC) 10 mg tablet TAKE 1 TABLET BY MOUTH EVERY DAY 90 tablet 3 01/17/2023 Active Comment on above: Take 10 mg by mouth once daily. amylase [id number] unt / lipase [id number] unt / protease [id number] unt delayed release oral capsule (20 sources) Start: 02-11-20 19 ZENPEP 40,000-126,000- 168,000 unit capsule,delayed release(DR/EC) TAKE 2 CAPSULES BY MOUTH WITH MEALS AND 1 CAPSULE WITH EACH SNACK 270 capsule 5 02/10/2019 Active Comment on above: Take 2 capsules by m outh w MEALS. Take 1 tablet with each snack. atorvastatin 10 mg oral tablet (20 sources) HMG-CoA Reductase Inhibitor Start: 08-29-19 End: 06-18-19 24 take 1 tablet by mouth in the morning atorvastatin (LIPITOR) 10 mg tablet Indications: Mixed hyperlipidemia TAKE 1 TABLET (10 MG TOTAL) BY MOUTH IN THE MORNING 90 tablet 3 06/18/2023 Active benzonatate 200 mg oral capsule (15 sources) Non-narcotic Antitussive Start: 04-18-19 24 take 1 capsule by mouth three times daily as needed for cough benzonatate (TESSALON PERLES) 200 mg capsule Take 1 capsule (200 mg total) by mouth 3 (three) times a day as needed for cough. 30 capsule 1 04/18/2023 Active blood-glucose sensor (Dexcom G7 Sensor) (1 source) Start: 12-31-19 blood-glucose sensor (Dexcom G7 Sensor) Active .Route December 31, 2023 12:00am carvedilol 25 mg oral tablet (20 sources) alpha-Adrenergic Juliet, beta-Adrenergic Juilet Start: 05-20-19 take 1 tablet by mouth at bedtime carvediloL (COREG) 25 mg tablet TAKE 1 TABLET (25 MG TOTAL) BY MOUTH IN THE MORNING AND BEFORE BEDTIME 180 tablet 3 05/19/2024 Active Start: 08-28-2022 End: 05-19-2024 take 1 tablet by mouth in the morning, then take 1 tablet by mouth at bedtime carvediloL (COREG) 25 mg tablet Take 1 tablet (25 mg total) by mouth in the morning and 1 tablet (25 mg total) before bedtime. 180 tablet 3 07/16/2023 05/19/2024 Discontinued Comment on above: Take 25 mg by mouth twice daily with meals. cefdinir 300 mg oral capsule (3 sources) Cephalosporin Antibacterial Start: 07-24-2023 End: 08-03-2023 take 1 capsule by mouth in the morning, then take 1 capsule by mouth at bedtime cefDINIR (OMNICEF) 300 mg capsule Take 1 capsule (300 mg total) by mouth in the morning and 1 capsule (300 mg total) before bedtime. Do all this for 10 days. 20 capsule 07/24/2023 08/03/2023 Active Start: 04-16-2023 End: 04-26-2023 take 1 capsule by mouth in the morning, then take 1 capsule by mouth at bedtime cefDINIR (OMNICEF) 300 mg capsule Take 1 capsule (300 mg total) by mouth in the morning and 1 capsule (300 mg total) before bedtime. Do all this for 10 days. 20 capsule 0 04/16/2023 04/26/2023 Active cholecalciferol 0.125 mg oral capsule (20 sources) Vitamin D Start: 06-18-2023 cholecalcifero l, vitamin D3, (VITAMIN D3) 5,000 units capsule 1 capsule (5,000 Units total). 06/18/2023 Active Start: 06-18-2023 take 1 capsule by mo ut twice daily Cholecalciferol (Vitamin D3) 125 mcg (5,000 unit) capsule Active 5000 UNIT PO Twice daily June 17, 2023 11:00pm take 1 capsule by mo ut every twelve hours Vitamin D3 125 MCG (5000 UT) 1 capsule Orally twice a day Active DEXCOM G6 CORONER/MEDICAL EXAMINER misc (20 sources) Start: 01-24-2022 DEXCOM G6 RECE IVER misc USE as directed TO monitor blood glucose 01/24/2022 Active Start: 01-24-2022 DEXCOM G6 RECE IVER misc USE as directed TO monitor blood glucose 0 01/24/2022 Active Dexcom G6 Sensor - (16 sources) Start: 01-04-2022 Dexcom G6 Sens or - as directed SQ change q 10 days for 90 day(s) Dec, Active Dexcom G6 Sensor - as directed SQ change q 10 days for 90 day(s) Active DEXCOM G6 SENSOR device (20 sources) Start: 01-24-2022 DEXCOM G6 SENS OR device CHANGE every 10 DAYS as directed 01/24/2022 Active Start: 01-24-2022 DEXCOM G6 SENS OR device CHANGE every 10 DAYS as directed 0 01/24/2022 Active Dexcom G6 Transmitter - (16 sources) Start: 01-04-2022 Dexcom G6 Escobar smitter - as directed SQ change Q 3 MO for 90 day(s) Dec, Active Dexcom G6 Transm itter - as directed SQ change Q 3 MO for 90 day(s) Active DEXCOM G6 TRANSMITTER device (20 sources) Start: 01-24-2022 DEXCOM G6 ESCOBAR SMITTER device CHANGE every three MONTHS as directed with G6 Sensor 01/24/2022 Active Start: 01-24-2022 DEXCOM G6 ESCOBAR SMITTER device CHANGE every three MONTHS as directed with G6 Sensor 0 01/24/2022 Active diclofenac sodium 0.01 mg/mg topical gel (20 sources) Nonsteroidal Anti-inflammatory Drug Start: 08-20-2023 diclofenac sodium (VOLTAREN) 1 % gel Apply to affected area tid 100 g 7 08/20/2023 Active Start: 06-18-2023 Diclofenac Sod ium 1 % gel Active TOPICAL Three times daily June 17, 2023 11:00pm as directed Externally TID; Start: 12-18-2022 End: 08-17-2023 diclofenac sodium (VOLTAREN) 1 % gel APPLY TO AFFECTED AREA 3 TIMES A DAY 100 g 5 12/18/2022 08/17/2023 Discontinued (Reorder) Start: 05-05-2021 apply 2 g topically twice [...] 100 mg oral capsule (20 sources) Start: 06-18-2023 take 1 capsule by mouth in the morning, then take 1 capsule by mouth at bedtime docusate sodium (STOOL SOFTENER) 100 mg capsule Take 1 capsule (100 mg total) by mouth in the morning and 1 capsule (100 mg total) before bedtime. 180 capsule 3 10/16/2023 Active Start: 04-12-2022 End: 03-26-2023 take 1 capsule by mouth in the morning STOOL SOFTENER 100 mg capsule TAKE 1 CAPSULE (100 MG TOTAL) BY MOUTH IN THE MORNING AND 1 CAPSULE BEFORE BEDTIME 180 capsule 3 03/26/2023 Active take 1 capsule by [facility] twice daily docusate sodium (COLACE) 100 mg capsule Take 100 mg by mouth twice daily. 0 Active Comment on above: Take 100 mg by mouth twice daily. ferrous sulfate 325 mg oral tablet (20 sources) Start: 10-16-2023 take 1 tablet by mouth in the morning ferrous sulfate 325 (65 FE) mg tablet Take 1 tablet (325 mg total) by mouth in the morning. 90 tablet 3 10/16/2023 Active Start: 09-11-2023 take 1 tablet by gerald th in the morning ferrous sulfate 325 (65 FE) mg tablet TAKE 1 TABLET (325 MG TOTAL) BY MOUTH IN THE MORNING 90 tablet 1 09/11/2023 Active Start: 01-01-2023 End: 09-11-2023 take 1 tablet by mouth once daily Ferrous Sulfate 325 mg (65 mg iron) tablet Active 325 MG PO Daily June 17, 2023 11:00pm take 1 tablet by gerald th once daily Ferrous Sulfate 325 (65 Fe) MG 1 tablet Orally Once a day Active Comment on above: Take 325 mg by mouth once daily. gentamicin 3 mg/ml ophthalmic solution (1 source) Start : 07-23 End: 07-28 gentamicin (GARAMYCIN) 0.3 % ophthalmic solution Administer 1 drop to both eyes in the morning and 1 drop at noon and 1 drop in the evening and 1 drop before bedtime. Do all this for 5 days. 5 mL 07/24/2023 07/29/2023 Active hydroCHLOROthiazide 25 mg oral tablet (19 sources) Thiazide Diuretic Start : 04-02 End: 02-18 take 1 tablet by mouth once daily hydroCHLOROthiazide (HYDRODIURIL) 25 mg tablet TAKE 1 TABLET (25 MG TOTAL) BY MOUTH DAILY. 90 tablet 2 02/19/2024 Active 1.5 ml insulin glargine 300 unt/ml pen injector (20 sources) Insulin Analog Start : 03-13 inject 10 [IU] by subcutaneous injection in the morning, then inject 20 [IU] by subcutaneous injection once daily in the morning TOUJEO SOLOSTAR U-300 INSULIN 300 unit/mL (1.5 mL) insulin pen INJECT 10 UNITS IN THE MORNING. TITRATE UP TO 20 UNITS SUBCUTANEOUSLY PER DAY EVERY MORNING 03/13/2022 Active Start: 01-04-2022 inject 22 [IU] [...] days (titrate up to 30 units/day) Active Insulin Glargine U-300 Conc 300 unit/mL (1.5 mL) insulin pen (5 sources) Start: 09-24-2023 inject 30 [IU] by subcutaneous injection once daily in the morning Insulin Glargine U-300 Conc 300 unit/mL (1.5 mL) insulin pen Active 0 SUBCUT Daily September 24, 2023 3:57pm 30 units qam Subcutaneous as directed; (titrate up to 40 units/day) ON HAND FOR PUMP FAILS Start: 09-24-2023 End: 09-24-2023 Insulin Glargine U-300 Conc 300 unit/mL (1.5 mL) insulin pen Discontinued 0 SUBCUT Daily September 24, 2023 2:14pm September 24, 2023 3:57pm 40 units qam Subcutaneous as directed; (titrate up to 40 units/day) ON HAND FOR PUMP FAILS Start: 06-18-2023 End: 09-24-2023 Insulin Glargine U-300 Conc 300 unit/mL (1.5 mL) insulin pen Discontinued 0 SUBCUT Daily June 18, 2023 2:10pm September 24, 2023 2:16pm 40 units qam Subcutaneous as directed; (titrate up to 40 units/day) Start: 05-16-2023 End: 06-18-2023 Insulin Glargine U-300 Conc 300 unit/mL (1.5 mL) insulin pen Discontinued 37 UNIT SUBCUT Daily 4.5 90 May 16, 2023 12:20pm June 18, 2023 2:19pm FreeTextSi units qam Subcutaneous as directed; Note: Source Status: Increase(titrate up to 40 units/day); Refills: 3; Provider: Jacqueline Mcqueen Start: 05-15-2023 End: 05-16-2023 Insulin Glargine U-300 Conc 300 unit/mL (1.5 mL) insulin pen Discontinued UNIT SUBCUT May 14, 2023 11:00pm May 16, 2023 12:22pm FreeTextSi units qam Subcutaneous as directed; Note: Source Status: Increase(titrate up to 40 units/day); Refills: 3; Provider: Jacqueline Mcqueen insulin lispro 100 unt/ml injectable solution (20 sources) Insulin Analog Start: 08-30-2023 inject 100 [IU] by subcutaneous injection once daily HumaLOG U-100 Insulin 100 unit/mL injection USE WITH INSULIN PUMP SUBCUTANEOUSLY UP TO 100 UNITS PER DAY DIRECTED 08/30/2023 Active Start: 03-13-2022 HumaLOG KwikPe n Insulin 100 unit/mL insulin pen 1:25 CORRECTIVE SCALE BEFORE MEAL 3TIMES DAILY SUBCUTANEOUSLY DIRECTED*EXPECT UP TO 20UNITS DAILY 03/13/2022 Active Start: 01-04-2022 HumaLOG KwikPe n 100 UNIT/ML 1:40 corrective scale ac tid plus 1:10 ICR Subcutaneous as directed for 30 days (expect up to 20 units/day) Dec, Active Insulin Lispro (Humalog Kwikpen Insulin) 100 unit/mL insulin pen (3 sources) Start: 12-20-2023 Insulin Lispro (Humalog Kwikpen Insulin) 100 unit/mL insulin pen Active 0 SUBCUT Use as Directed 60 December 20, 2023 12:00am 1:4 carb ratio ac tid. Corrective scale 1:15 ac, (hs if >200 half dose) Subcutaneous as directed; ON HAND FOR PUMP FAILS Start: 09-24-2023 End: 09-24-2023 Insulin Lispro (Humalog Kwik pen Insulin) 100 unit/mL insulin pen Discontinued 0 SUBCUT .COMPLEX September 24, 2023 2:15pm September 24, 2023 3:56pm 1:4 carb ratio ad tid. Corrective scale 1:15 ac, (hs if >200 half dose) Subcutaneous as directed; ON HAND FOR PUMP FAILS. Start: 06-18-2023 End: 09-24-2023 Insulin Lispro (Humalog Kwik pen Insulin) 100 unit/mL insulin pen Discontinued 0 SUBCUT .COMPLEX June 17, 2023 11:00pm September 24, 2023 2:16pm 1:4 carb ratio ad tid. Corrective scale 1:15 ac, (hs if >200 half dose) Subcutaneous as directed; Insulin Lispro (Humalog U-100 Insulin) 100 unit/mL solution (1 source) Start: 08-30-2023 inject 100 [IU] by subcutaneous injection once daily Insulin Lispro (Humalog U-100 Insulin) 100 unit/mL solution Active 0 SUBCUT Use as Directed 90 August 29, 2023 11:00pm Use with insulin pump up to 100 units per day. subcutaneously use as directed; lancing device misc (20 sources) Start: 03-03-2022 lancing device misc 03/03/2022 Active Start: 03-03-2022 lancing device misc lidocaine 0.05 mg/mg medicated patch (20 sources) Antiarrhythmic, Amide Local Anesthetic Start: 08-20-2023 apply 1 dose transdermal route in the morning lidocaine (LIDODERM) 5 % Place 1 patch on the skin in the morning. 30 patch 7 08/20/2023 Active Start: 06-18-2023 Lidocaine 5 % adhesive patch,medicated Active 1 PATCH TOPICAL Daily June 17, 2023 11:00pm 1 patch remove after 12 hours Externally Once a day; Start: 08-28-2022 End: 08-17-2023 apply 1 dose transdermal route in the morning lidocaine (LIDODERM) 5 % Place 1 patch on the skin in the morning. 30 patch 5 02/15/2023 Active Lidocaine 5 % 1 patch remove after 12 hours Externally Once a day Active Kdbnbt-Iqzvljcv-Bvaezhc 40,000-126,000- 168,000 unit capsule,delayed release(DR/EC) (1 source) Start: 06-18-2023 take 2 capsules by mouth three times daily at mealtime, then take 1 capsule by mouth three times daily Webddm-Wykkbqwf-Cklczav 40,000-126,000- 168,000 unit capsule,delayed release(DR/EC) Active 0 PO Three times daily June 17, 2023 11:00pm orally three times daily; 2 capsules with meals, 1 capsule with each snack Orally tid; meclizine hydrochloride 25 mg oral tablet (20 sources) Antiemetic Start: 06-20-2024 take 1 tablet by mouth three times daily as needed for dizziness meclizine (ANTIVERT) 25 mg tablet TAKE 1 TABLET BY MOUTH THREE TIMES A DAY NEEDED FOR DIZZINESS 90 tablet 1 06/20/2024 Active Start: 08-20-2023 End: 06-20-2024 take 1 tablet by mouth three times daily as needed for dizziness meclizine (ANTIVERT) 25 mg tablet TAKE 1 TABLET BY MOUTH THREE TIMES A DAY NEEDED FOR DIZZINESS 90 tablet 1 04/23/2024 06/20/2024 Discontinued Start: 09-22-2022 End: 08-17-2023 take 1 tablet by mouth three times daily as needed for dizziness meclizine (ANTIVERT) 25 mg tablet Take 1 tablet (25 mg total) by mouth 3 (three) times a day as needed for dizziness. 90 tablet 7 08/20/2023 Active multivitamin (THERAGRAN) tablet (20 sources) take 1 tablet by gerald th in the morning multivitamin (THERAGRAN) tablet Take 1 tablet by mouth in the morning. Active take 1 tablet by mouth in the mo rning multivitamin (THERAGRAN) tablet Take 1 tablet by mouth in the morning. 0 Active Multivitamin preparation (17 sources) Start: 06-18-2023 take 1 tablet by mouth once daily multivitamin (Daily Multivitamin) Active 1 TAB PO Daily June 17, 2023 11:00pm take 1 tablet by mouth once jacey y Multivitamin - 1 tablet Orally Once a day Active ondansetron 4 mg oral tablet (20 sources) Serotonin-3 Receptor Antagonist Start: 10-16-2023 take 1 tablet by mouth every eight hours as needed for nausea ondansetron (ZOFRAN) 4 mg tablet Indications: Necrotizing pancreatitis Take 1 tablet (4 mg total) by mouth every 8 (eight) hours as needed for nausea or vomiting. 30 tablet 5 10/16/2023 Active Start: 12-11-2022 End: 07-16-2023 take 1 tablet by mouth every eight hours as needed for nausea ondansetron (ZOFRAN) 4 mg tablet Indications: Necrotizing pancreatitis Take 1 tablet (4 mg total) by mouth every 8 (eight) hours as needed for nausea or vomiting. 30 tablet 5 10/16/2023 Active pantoprazole 40 mg delayed release oral tablet (20 sources) Proton Pump Inhibitor Start: 08-28-2022 End: 06-18-2023 take 1 tablet by mouth in the morning pantoprazole (PROTONIX) 40 mg EC tablet TAKE 1 TABLET (40 MG TOTAL) BY MOUTH IN THE MORNING 90 tablet 3 06/18/2023 Active Comment on above: Take 40 mg by mouth once daily. pen needle, diabetic (BD Janneth 2nd Gen Pen Needle) (1 source) Start: 06-18-2023 pen needle, diabetic (BD Janneth 2nd Gen Pen Needle) Active .Route June 17, 2023 11:00pm microencapsulated potassium chloride 10 meq extended release oral tablet (20 sources) Start: 10-22-2023 take 1 tablet by mouth in the morning, then take 1 tablet by mouth at bedtime, then take 1 tablet by mouth in the morning potassium chloride (KLOR-CON M10) 10 MEQ CR tablet Take 1 tablet (10 mEq total) by mouth in the morning and 1 tablet (10 mEq total) before bedtime. TAKE 1 TABLET (10 MEQ TOTAL) BY MOUTH IN THE MORNING. 180 tablet 3 10/22/2023 Active Start: 06-18-2023 take 1 tablet by gerald th twice daily Potassium Chloride 10 mEq tablet extended release Active 10 MEQ PO Twice daily June 17, 2023 11:00pm Start: 09-22-2022 End: 08-27-2023 take 1 tablet by mouth in the morning KLOR-CON M10 10 mEq CR tablet TAKE 1 TABLET (10 MEQ TOTAL) BY MOUTH IN THE MORNING 90 tablet 2 08/27/2023 Active take 1 tablet by gerald th every twelve hours Potassium Chloride ER 10 MEQ 1 tablet with food Orally Twice a day Active psyllium 400 mg oral capsule (20 sources) psyllium husk (M ETAMUCIL) 0.4 gram capsule Take by mouth daily. Active Metamucil Active Comment on above: Take by mouth once d aily. Psyllium Husk (Metamucil) 0.4 gram capsule (1 source) Start: 4 Psyllium Husk (Metamucil) 0.4 gram capsule Active 0.4 GM PO Daily June 17, 2023 11:00pm Subcutaneous Insulin Pump (T:Slim X2 Control-Iq) misc (1 source) Start: Subcutaneous Insulin Pump (T:Slim X2 Control-Iq) misc Active 0 .Route 1 August 19, 2023 11:00pm Use continuously to deliver insulin T:SLIM X2 CONTROL-IQ misc (5 sources) Start: T:SLIM X2 CONTROL-IQ misc 08/20/2023 Active tiZANidine 4 mg oral tablet (20 sources) Central alpha-2 Adrenergic Agonist Start: 4 take 1 tablet by mouth every eight hours as needed tiZANidine (ZANAFLEX) 4 mg tablet Take 1 tablet (4 mg total) by mouth every 8 (eight) hours as needed for muscle spasms. 270 tablet 3 10/16/2023 Active Start: 06-18-2023 take 1 tablet by gerald th once daily at bedtime as needed Tizanidine 4 mg tablet Active 4 MG PO Daily at bedtime as needed June 17, 2023 11:00pm Start: 01-01-2023 take 1 tablet by gerald th every eight hours as needed tiZANidine (ZANAFLEX) [...] Active zinc gluconate 50 mg oral tablet (15 sources) Start: 06-18-2023 take 1 tablet by mouth twice daily Zinc Gluconate 50 mg tablet Active 50 MG PO Twice daily June 17, 2023 11:00pm 1 tablet Orally TWICE A DAY; take 1 tablet by mouth every twe lve hours Zinc 50 MG 1 tablet Orally [...] on above: Take 2 tablets by mo [facility] every 6 hours as needed for Pain. [...] tablet 1 01/13/2021 04/02/2023 Discontinued (Alternate therapy) blood-glucose sensor (Dexcom G6 Sensor) (1 source) Start: 06-18-2023 End: 12-31-2023 blood-glucose sensor (Dexcom G6 Sensor) Discontinued .Route June 17, 2023 11:00pm December 31, 2023 3:26pm blood-glucose transmitter (Dexcom G6 Transmitter) (1 source) Start: 06-18-2023 End: 12-31-2023 blood-glucose transmitter (Dexcom G6 Transmitter) Discontinued .Route June 17, 2023 11:00pm December 31, 2023 3:26pm cephalexin 500 mg oral capsule (1 source) Cephalosporin Antibacterial Start: 12-31-2023 End: 04-14-2024 take 1 capsule by mouth four times daily Cephalexin 500 mg capsule Discontinued 500 MG PO Four times daily December 31, 2023 12:00am April 14, 2024 3:08pm glimepiride 2 mg oral tablet (1 source) [...] Date Documented Date Episodic/Chronic Administrative/socia l admission (9 sources) Dietary counseling and surveillance; Translations: [Patient encounter status] Episodic Diabetes mellitus without complication (20 sources) [...] sources) Long-term current use of insulin; Translations: [shelter (current) use of insulin] Episodic Other aftercare (7 sources) shelter (current) use of insulin Episodic Other endocrine [...] Chronic Other nutritional; endocrine; and metabolic disorders (13 sources) Body mass index 30+ - obesity; Translations: [Body mass index (BMI) 32.0-32.9, adult] 12-31-2023 Chronic Other nutritional; endocrine; and metabolic disorders [...] Chronic Other nutritional; endocrine; and metabolic disorders (3 sources) Body mass index (BMI) 36.0-36.9, adult; Translations: [Body Mass Index 36.0-36.9, adult] Chronic Other screening for suspected conditions (not mental disorders or infectious disease) (2 sources) Encounter for screening mammogram for malignant neoplasm of breast; Translations: [ENC SCR MAMMO MALIG NEOPLASM BREAST] Onset: 11-10-2021 Episodic Residual codes; unclassified (16 sources) Acquired partial absence of pancreas; 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 Residual codes; unclassified (1 source) Acquired total absence of pancreas; Translations: [Personal history of surgery to other organs] 04-14-2024 Chronic Skin and subcutaneous tissue infections (2 sources) Site-specific infective disorders of skin; Translations: [Local infection of the skin and subcutaneous tissue, unspecified] 12-31-2023 Episodic Unclassified (2 sources) Acute pancreatitis with uninfected necrosis, unspecified; Translations: [Acute pancreatitis with uninfected necrosis, unspecified] Onset: 11-01-2017 Unclassified (1 source) Annual Exam Onset: 10-16-2023 Unclassified (1 source) Routine Check up Onset: 04-02-2023 Past or Other Problems Problem Classification Problem Date Documented Da te Episodic/Chronic Crushing injury or internal injury (20 sources) Injury of pancreas; Translations: [Unspecified injury [...] unspecified] Onset: 11-05-2017 11-15-2017 Episodic Mood disorders (20 sources) Mood disorders Onset: 04-02-2023 Resolved: 10-16-2023 10-16-2023 Other connective tissue disease (6 sources) Myofascial pain syndrome; Translations: [Myalgia, other site] Onset: 09-23-2019 09-23-2019 Episodic Other lower respiratory disease (1 source) H/O: respiratory disease; Translations: [Personal history of other diseases of the respiratory system] Onset: 11-05-2017 08-25-2020 Episodic Other upper respiratory infections (2 sources) Other acute sinusitis; Translations: [Acute sinusitis] Onset: 04-16-2023 04-16-2023 Episodic Pancreatic disorders (not diabetes) (20 sources) Acute necrotizing pancreatitis; Translations: [Acute pancreatitis with uninfected necrosis, unspecified] Onset: 11-03-2017 12-28-2017 Episodic Spondylosis; intervertebral disc disorders; other back problems (20 sources) Neck pain; Translations: [Cervicalgia] Onset: 08-31-2022 08-31-2022 Episodic Unclassified (20 sources) Onset: 04-29-2020 04-29-2020 Results Test Name Value Interpretation Reference Range Facility A1C HEMOGLOBINon 03-12-2023 HbA1c (Bld) [Mass fraction] 7.8 % [facility] Other Glucose - FINGER [facility]on Glucose [Mass/Vol] 132 mg/dL [facility] Other HbA1c (Bld) [Mass fraction]o n 03-12-2023 A1C HEMOGLOBIN 6AP[facility] Other A1C HEMOGLOBINon 11-27-2022 HbA1c (Bld) [Mass fraction] 6.7 % [facility] Other Glucose - FINGER [facility]on Glucose [Mass/Vol] 126 mg/dL [facility] Other HbA1c (Bld) [Mass fraction]o n 11-27-2022 A1C HEMOGLOBIN 6APT Other Glucose - [facility]ING[facility] Glucose [Mass/Vol] 106 mg/dL [facility] Other Glucose - [facility]ING[facility] Glucose [Mass/Vol] 131 mg/dL [facility] Other GGTon 05-01-2022 Gamma glutamyl transferase [Catalytic activity/Vol] 27 U/L Normal 8-55 [facility] Comment on above: Performed By: #### G GT, ALT, AST #### [facility] [id number] Caridad COLINOTon 05-01-2022 AST [Catalytic activity/Vol] 24 U/L Normal 15-37 [facility] Comment on above: Performed By: #### G GT, ALT, AST ####[facility] [address] [place], [place] [address]UoDr. Caridad COLINPTon 05-01-2022 ALT [Catalytic activity/Vol] 40 U/L Normal 14-59 [facility] Comment on above: Performed By: #### G GT, ALT, AST #### [facility] [address] [place], [place] [address] Dr. Caridad [place] Glucose - FINGER STICKon Glucose [Mass/Vol] 126 mg/dL [employer] Other A1C HEMOGLOBINon 02-20-2022 HbA1c (Bld) [Mass fraction] 10.0 % [facility] [employer] Other Glucose - FINGER STICKon Glucose [Mass/Vol] 125 mg/dL [employer] Other HbA1c (Bld) [Mass fraction]o n 02-20-2022 A1C HEMOGLOBIN [facility] [employer] Other C-PEPTIDE, SERUMon 2 C-Peptide, Serum 3.5 ng/mL Normal 1.1-4.4 [facility] Comment on above: Result Comment: C-Pe ptide reference interval is for fasting patients. Performed By: #### C PEPT #### [facility] [address] [address] [address] Caridad [place] GGTon 01-06-2022 Gamma glutamyl transferase [Catalytic activity/Vol] 40 U/L Normal 8-55 [facility] Comment on above: Performed By: #### A ST, K, ALT, LIPID, GGT ####[facility] [address] [id number]. Caridad [place] GLUCOSE BLOODon 01-06-2022 Glucose [Mass/Vol] 342 mg/dL Critically high 74-106 [facility] Comment on above: Performed By: #### G PAMELA ####[facility] [address] [id number]. Caridad [place] LIPID PROFILEon 01-06-2022 CHOL-HDL RATIO NORM SEE BELOW Normal [facility] Comment on above: Result Comment: 3.3 - 4.4 LOW RISK 4.4 - 7.1 AVERAGE RISK 7.1 - 11.0 MODERATE RISK >11.0 HIGH RISK Performed By: #### A ST, K, ALT, LIPID, GGT ####[facility] [address] [id number]. Caridad [place] Cholesterol [Mass/Vol] 142 mg/dL Normal <=200 [facility] Comment on above: Performed By: #### A ST, K, ALT, LIPID, GGT ####[facility] [address] [id number]. Caridad [place] Cholesterol in HDL [Mass/Vol] 32 mg/dL Critically low 40-60 [facility] Comment on above: Performed By: #### A ST, K, ALT, LIPID, GGT ####[facility] [address] [id number]. Caridad [place] Cholesterol in LDL [Mass/Vol] 62.2 mg/dL Normal [facility] Comment on above: Performed By: #### A ST, K, ALT, LIPID, GGT ####[facility] [address] [address]Dr. Caridad Dread Cholesterol.total/ Cholesterol in HDL [Mass ratio] 4.4 {ratio} Normal [facility] Comment on above: Performed By: #### A ST, K, ALT, LIPID, GGT ####[facility] [address] [address]Dr. Caridad [place] HDL NORMAL > or = 60 mg/dl - LO W CARDIOVASCULAR RISK <40 mg/dl - HIGH CARDIOVASCULAR RISK Normal [facility] Comment on above: Performed By: #### A ST, K, ALT, LIPID, GGT ####[facility] [address] [address]Dr. Caridad [place] LDL CALC NORMAL SEE BELOW Normal [facility] Comment on above: Result Comment: <100 mg/dl OPTIMAL 100 - 129 mg/dl NEAR OR ABOVE OPTIMAL 130 - 159 mg/dl BORDERLINE HIGH 160 - 189 mg/dl HIGH >190 mg/dl VERY HIGH Performed By: #### A ST, K, ALT, LIPID, GGT ####[facility] [address] [id number]. Caridad [place] Triglyceride [Mass/Vol] 239 mg/dL Critically high <=150 [facility] Comment on above: Performed By: #### A ST, K, ALT, LIPID, GGT ####[facility] [address] [id number]. Caridad [place] VLDL CALC 47.8 mg/dL Normal [facility] Comment on above: Performed By: #### A ST, K, ALT, LIPID, GGT ####[facility] [address] [id number]. Caridad [place] MICROALB CREAT RATIO RANDOMo n 01-06-2022 mALB <1.3 Normal <=30.0 [facility] Comment on above: Performed By: #### M CRR ####[facility] [address] [id number]. Caridad [place] MALB CR RATIO 11.1 mg/g Normal 0.0-29.9 [facility] Comment on above: Performed By: #### M CRR ####[facility] [address] [address]Dr. Caridad [place] MALB CR RATIO RANGE SEE BELOW Normal [facility] Comment on above: Result Comment: NO M ICROALBUMINURIA 0-29 MG/G CLINICAL MICROALBUMINURIA 30-300 MG/G MACROALBUMINURIA >300 MG/G Performed By: #### M CRR ####[facility] [address] [place], [place] [address]Dr. Caridad [place] URINE CREAT 116.75 mg/dL Normal 20.00-300.00 [facility] Comment on above: Performed By: #### M CRR ####[facility] [address] [address]Dr. Caridad [place] POTASSIUMon 01-06-2022 Potassium [Moles/Vol] 4.1 mmol/L Normal 3.5-5.1 [facility] Comment on above: Performed By: #### A ST, K, ALT, LIPID, GGT ####[facility] [address] [id number]. Caridad [place] SGOTon 01-06-2022 AST [Catalytic activity/Vol] 32 U/L Normal 15-37 [facility] Comment on above: Performed By: #### A ST, K, ALT, LIPID, GGT ####[facility] [address] [id number]. Caridad [place] SGPTon 01-06-2022 ALT [Catalytic activity/Vol] 63 U/L Critically high 14-59 [facility] Comment on above: Performed By: #### A ST, K, ALT, LIPID, GGT ####[facility] [address] [place], [place] [address]JcDr. Caridad [place] Glucose - FINGER STICKon Glucose [Mass/Vol] 359 mg/dL [employer] Other GLYCOHEMOGLOBIN A1Con 2021 ADA RECOMMENDATION SEE BELOW Normal [facility] Comment on above: Result Comment: ADA RECOMMENDED LIMIT 4.0 - 6.0 ADA THERAPEUTIC TARGET < 7.0 ACTION SUGGESTED > 7.0 Performed By: #### A 1C #### [facility] [address], [place] [address] Dr. Caridad [place] Glucose [Mass/Vol] 272 mg/dL Normal [facility] Comment on above: Performed By: #### A 1C #### [facility] [address] [place], [place] [address] Dr. Caridad [place] HbA1c (Bld) [Mass fraction] 11.1 % Critically high 4.5-6.2 [facility] Comment on above: Performed By: #### A 1C #### [facility] [address] [place], [place] [address] Dr. Caridad [place] MG MAMM SCREEN 3D [facility] CADon 11-08-2021 MG MAMM SCREEN 3D [facility] CAD Patient: NICHOLE SANDHU Exam Date: 11/08/2021 : 1955 Gender:F Ordering : DR SAMIA LANDEROS Admission #: [id number] Family : Order #: [id number] CLICK HERE TO VIEW EXAM RADIOLOGY REPORT [...] Treatments None Family Cancers None LOCATION: [facility] BREAST COMPOSITION: Scattered areas fibroglandular density. [...] Cheek MD on 11/09/2021 at 07:37 Normal [facility] MICROALBUMIN/ CREATININE RAT IOon 10-25-2021 Albumin, Urine 985.5 ug/mL Normal Not Estab. [facility] Comment on above: Result Comment: Resu lts confirmed on dilution. Performed By: #### M ALBCRL #### [facility] [address] [place] [address] Dr. Caridad [place] Albumin/ Creatinine Ratio 399 mg/g creat Critically high 0-29 [facility] Comment on above: Result Comment: Norm al: 0 - 29 Moderately increased: 30 - 300 Severely increased: >300 Performed By: #### M ALBCRL #### [facility] [address] [place] [address] Dr. Caridad [place] Creatinine, Urine 247.2 mg/dL Normal Not Estab. [facility] Comment on above: Performed By: #### M ALBCRL #### [facility] [address] [place] [address] Dr. Caridad [place] CBC AUTO DIFFon 10-24-2021 BASO # 0.1 103/ul Normal 0.0-0.1 [facility] Comment on above: Performed By: #### C BC #### [facility] [address] [place] [address] Dr. Caridad [place] Basophils/100 WBC (Bld) 0.9 % Normal 0.2-2.0 [facility] Comment on above: Performed By: #### C BC #### [facility] [address] [place] [address] Dr. Caridad [place] EO # 0.5 103/ul Normal 0.0-0.7 [facility] Comment on above: Performed By: #### C BC #### [facility] [address] [address] [address] Caridad [place] Eosinophils/100 WBC (Bld) 4.1 % Normal 0.9-7.0 [facility] Comment on above: Performed By: #### C BC #### [facility] [address] [place] [address] Dr. Caridad [place] Erythrocyte distribution width (RBC) [Ratio] 13.2 % Normal 11.0-15.0 [facility] Comment on above: Performed By: #### C BC #### [facility] [address] [place] [address] Dr. Caridad [place] Hematocrit (Bld) [Volume fraction] 42.5 % Normal 36.0-48.0 [facility] Comment on above: Performed By: #### C BC #### [facility] [address] [place] [address] Dr. Caridad [place] Hemoglobin (Bld) [Mass/Vol] 14.2 g/dL Normal 12.0-16.0 [facility] Comment on above: Performed By: #### C BC #### [facility] [address] [place] [address] Dr. Caridad [place] IG # 0.08 10e3/ul Critically high 0.00-0.03 [facility] Comment on above: Performed By: #### C BC #### [facility] [address] [place] [address] Dr. Caridad [place] IG % 0.7 % Critically high 0.0-0.5 [facility] Comment on above: Performed By: #### C BC #### [facility] [address] [place] [address] Dr. Caridad [place] LYMPH # 4.0 103/ul Critically high 1.2-3.8 [facility] Comment on above: Performed By: #### C BC #### [facility] [address] [place] [address] Dr. Caridad [place] Lymphocytes/100 WBC (Bld) 32.9 % Normal 20.5-60.0 [facility] Comment on above: Performed By: #### C BC #### [facility] [address] [place] [address] Dr. Caridad [place] MANUAL DIFF REQ NO Normal [facility] Comment on above: Performed By: #### C BC #### [facility] [address] [place] [address] Dr. Caridad [place] MCH (RBC) [Entitic mass] 28.8 pg Normal 26.7-34.0 [facility] Comment on above: Performed By: #### C BC #### [facility] [address] [place] [address] Dr. Caridad [place] MCHC (RBC) [Mass/Vol] 33.4 g/dL Normal 29.9-35.2 [facility] Comment on above: Performed By: #### C BC #### [facility] [address] [place] [address] Dr. Caridad [place] MCV (RBC) [Entitic vol] 86.2 fL Normal 81.0-99.0 [facility] Comment on above: Performed By: #### C BC #### [facility] [address] [place] [address] Dr. Caridad [place] MONO # 0.7 103/ul Normal 0.3-0.8 [facility] Comment on above: Performed By: #### C BC #### [facility] [address] [place] [address] Dr. Caridad [place] Monocytes/100 WBC (Bld) 6.1 % Normal 1.7-12.0 [facility] Comment on above: Performed By: #### C BC #### [facility] [address] [place] [address] Dr. Caridad [place] NEUT # 6.7 103/ul Critically high 1.4-6.5 [facility] Comment on above: Performed By: #### C BC #### [facility] [address] [place] [address] Dr. Caridad [place] Neutrophils/100 WBC (Bld) 55.3 % Normal 43.0-75.0 [facility] Comment on above: Performed By: #### C BC #### [facility] [address] [place] [address] Dr. Caridad [place] Platelet mean volume (Bld) [Entitic vol] 12.1 fL Normal 9.5-13.5 [facility] Comment on above: Performed By: #### C BC #### [facility] [address] [address] [address] Caridad [place] PLT 320 103/ul Normal 150-450 [facility] Comment on above: Performed By: #### C BC #### [facility] [address] [address] [address] Caridad [place] RBC 4.93 106/ul Normal 4.20-5.40 [facility] Comment on above: Performed By: #### C BC #### [facility] [address] [address] [address] Caridad [place] WBC 12.1 103/ul Critically high 4.0-11.0 [facility] Comment on above: Performed By: #### C BC #### [facility] [address] [address] [address] Caridad [place] FREE T4on 10-24-2021 Free T4 [Mass/Vol] 1.22 ng/dL Normal 0.76-1.46 [facility] Comment on above: Performed By: #### F T4 ####[facility] [address] [address]. Caridad [place] LIPID PROFILEon 10-24-2021 CHOL-HDL RATIO NORM SEE BELOW Normal [facility] Comment on above: Result Comment: 3.3 - 4.4 LOW RISK 4.4 - 7.1 AVERAGE RISK 7.1 - 11.0 MODERATE RISK >11.0 HIGH RISK Performed By: #### C MP, LIPID, TSH #### [facility] [address] [address] [address] Caridad [place] Cholesterol [Mass/Vol] 181 mg/dL Normal <=200 [facility] Comment on above: Performed By: #### C MP, LIPID, TSH #### [facility] [address] [address] [address] Caridad [place] Cholesterol in HDL [Mass/Vol] 30 mg/dL Critically low 40-60 [facility] Comment on above: Performed By: #### C MP, LIPID, TSH #### [facility] [address] [address] [address] Caridad [place] Cholesterol in LDL [Mass/Vol] 74.6 mg/dL Normal [facility] Comment on above: Performed By: #### C MP, LIPID, TSH #### [facility] [address] [address] [address] Caridad [place] Cholesterol.total/ Cholesterol in HDL [Mass ratio] 6.0 {ratio} Normal [facility] Comment on above: Performed By: #### C MP, LIPID, TSH #### [facility] [address] [address] [address] Caridad [place] HDL NORMAL > or = 60 mg/dl - LO W CARDIOVASCULAR RISK <40 mg/dl - HIGH CARDIOVASCULAR RISK Normal [facility] Comment on above: Performed By: #### C MP, LIPID, TSH #### [facility] [address] [address] [address] Caridad [place] LDL CALC NORMAL SEE BELOW Normal [facility] Comment on above: Result Comment: <100 mg/dl OPTIMAL 100 - 129 mg/dl NEAR OR ABOVE OPTIMAL 130 - 159 mg/dl BORDERLINE HIGH 160 - 189 mg/dl HIGH >190 mg/dl VERY HIGH Performed By: #### C MP, LIPID, TSH #### [facility] [address] [address] [address] Caridad [place] Triglyceride [Mass/Vol] 382 mg/dL Critically high <=150 [facility] Comment on above: Performed By: #### C MP, LIPID, TSH #### [facility] [address] [address] [address] Caridad [place] VLDL CALC 76.4 mg/dL Normal [facility] Comment on above: Performed By: #### C MP, LIPID, TSH #### [facility] [address] [address] [address] Craidad [place] PROF 14(COMP METB)on 022 Albumin [Mass/Vol] 3.6 g/dL Normal 3.4-5.0 [facility] Comment on above: Performed By: #### C MP, LIPID, TSH #### [facility] [address] [address] [address] Caridad [place] Albumin/Globulin [Mass ratio] 0.8 {ratio} Normal [facility] Comment on above: Performed By: #### C MP, LIPID, TSH #### [facility] [address] [address] [address] Caridad [place] ALP [Catalytic activity/Vol] 98 U/L Normal 46-116 [facility] Comment on above: Performed By: #### C MP, LIPID, TSH #### [facility] [address] [address] [address] Caridad [place] ALT [Catalytic activity/Vol] 53 U/L Normal 14-59 [facility] Comment on above: Performed By: #### C MP, LIPID, TSH #### [facility] [address] [address] [address] Caridad [place] Anion gap [Moles/Vol] 13.6 mmol/L Normal [facility] Comment on above: Performed By: #### C MP, LIPID, TSH #### [facility] [address] [address] [address] Caridad [place] AST [Catalytic activity/Vol] 28 U/L Normal 15-37 [facility] Comment on above: Performed By: #### C MP, LIPID, TSH #### [facility] [address] [address] [address] Caridad [place] Bilirubin [Mass/Vol] 0.4 mg/dL Normal 0.2-1.0 [facility] Comment on above: Performed By: #### C MP, LIPID, TSH #### [facility] [address] [address] [address] Caridad [place] Calcium [Mass/Vol] 9.2 mg/dL Normal 8.5-10.1 [facility] Comment on above: Performed By: #### C MP, LIPID, TSH #### [facility] [address] [address] [address] Caridad [place] Chloride [Moles/Vol] 99 mmol/L Normal 98-107 [facility] Comment on above: Performed By: #### C MP, LIPID, TSH #### [facility] [address] [address] [address] Caridad [place] CO2 [Moles/Vol] 29.8 mmol/L Normal 21.0-32.0 [facility] Comment on above: Performed By: #### C MP, LIPID, TSH #### [facility] [address] [address] [address] Caridad [place] Creatinine [Mass/Vol] 0.66 mg/dL Normal 0.55-1.02 [facility] Comment on above: Performed By: #### C MP, LIPID, TSH #### [facility] [address] [address] [address] Caridad [place] EGFR-AF GIBRALTARIAN >60 Normal >=60 [facility] Comment on above: Performed By: #### C MP, LIPID, TSH #### [facility] [address] [address] [address] Caridad [place] EGFR-NON AF GIBRALTARIAN >60 Normal >=60 [facility] Comment on above: Performed By: #### C MP, LIPID, TSH #### [facility] [address] [address] [address] Caridad [place] Globulin (S) [Mass/Vol] 4.3 g/dL Normal [facility] Comment on above: Performed By: #### C MP, LIPID, TSH #### [facility] [address] [address] [address] Caridad [place] Glucose [Mass/Vol] 301 mg/dL Critically high 74-106 [facility] Comment on above: Performed By: #### C MP, LIPID, TSH #### [facility] [address] [address] [address] Caridad [place] Potassium [Moles/Vol] 3.4 mmol/L Critically low 3.5-5.1 [facility] Comment on above: Performed By: #### C MP, LIPID, TSH #### [facility] [address] [address] [address] Caridad [place] Protein [Mass/Vol] 7.9 g/dL Normal 6.4-8.2 [facility] Comment on above: Performed By: #### C MP, LIPID, TSH #### [facility] [address] [place] [address] Dr. Caridad [place] Sodium [Moles/Vol] 139 mmol/L Normal 136-145 [facility] Comment on above: Performed By: #### C MP, LIPID, TSH #### [facility] [address] [place] [address] Dr. Caridad [place] Urea nitrogen [Mass/Vol] 6.0 mg/dL Critically low 7.0-18.0 [facility] Comment on above: Performed By: #### C MP, LIPID, TSH #### [facility] [address] [place] [address] Dr. Caridad [place] Urea nitrogen/Creatinin e [Mass ratio] 9.1 mg/mg Normal [facility] Comment on above: Performed By: #### C MP, LIPID, TSH #### [facility] [address] [place] [address] Dr. Caridad [place] TSHon 10-24-2021 TSH 1.566 uIU/mL Normal 0.358-3.740 [facility] Comment on above: Performed By: #### C MP, LIPID, TSH #### [facility] [address] [place] [address] Dr. Caridad [place] OBSOLETEon 01-25-2021 OBSOLETE Refill (PAINMN) ----- NICHOLE SANDHU ([id number]) 1955 F Date Time Provider Department 01/25/21 JACEY CABRALMN During your visit today, we recorded the [...] A DAY NEEDED FOR PAIN DIRECTED - bfwvgu-pooaheos-neszyal (ZENPEP) 40,000-126,000- 168,000 unit delayed release capsule [...] mouth once daily. - blood sugar diagnostic ([employer] VERIO) test strip Use as instructed Problem [...] Status:Closed by JACEY CABRAL on 01/25/21 [facility] ANES POSTPROC EVALon 021 ANES POSTPROC EVAL HNO ID: [id number] Author: Jayce Chase DO Service: Anesthesiology Author [...] August 31, 2020 TIME: 9:44 AM CSN: [id number] [facility] ANES PRE-OPon 08-31-2020 ANES PRE-OP HNO ID: [id number] Author: Jayce Chase DO Service: Anesthesiology Author [...] A DAY NEEDED FOR PAIN DIRECTED - lhynkt-xbfwiyrg-conhiel (ZENPEP) 40,000-126,000- 168,000 unit cpDR Take 2 [...] mouth once daily. - blood sugar diagnostic ([employer]UCH VERIO) test strip Use as instructed I have interviewed and examined the patient. I have reviewed the medical record and/or the pre-anesthesia evaluation, pertinent labs, and test results. This contains updated information obtained within 48 hours of Surgery/Procedure. SIGNATURE: Chino Graves DO PATIENT NAME: Nichole Sandhu DATE: August 31, 2020 TIME: 7:27 AM CSN: [id number] [facility] CNCOon 08-31-2020 CNCO Letter Text [facility] HISTORY PHYSICALon HISTORY PHYSICAL HNO ID: [id number] Author: Chaz Benitez PA-C Service: Gastroenterology Author Type: Physician Custom Shoemaker Type: HANDP Filed: 08/31/2020 8:10 AM Note [...] is colonoscopy. Medication reconciliation list reviewed in [employer]. Past medical history, past surgical history, social history and family history reviewed and updated in [employer]. ALLERGIES Allergen Reactions - Ativan [Lorazepam] Other: [...] August 31, 2020 TIME: 7:28 AM Normal [facility] NURSING PROGon 08-31-2020 NURSING PROG HNO ID: [id number] Author: Ericka Hughes RN Service: Gastroenterology Author Type: Registered Nurse Type: Nursing Progress Note Filed: 09/01/2020 10:56 AM Note Text: [facility] ENDOSCOPY POST PROCEDURE FOLLOW UP CALL [phone] (home) Date Phone Call Made: 09/01/2020 Attempt: [...] more pleasant? No Ericka Hughes RN Normal [facility] SURGICAL PATHOLOGYon 021 SURGICAL PATHOLOGY Specimen originated from [facility] Specimen #: [id number] Submitting Physician: JAYCE WORKMAN FINAL DIAGNOSIS 1. [...] in one cassette. Gross examination performed at [facility], [address] [place] [address] 08/31/2020 2:17:20 PM Date of Report: 09/01/2020 Date of Procedure: 08/31/2020 Date of Receipt: 08/31/2020 Submitted by: JAYCE WORKMAN Location: [facility] Diagnostic interpretation performed at [facility], [address] [place] [address], [place] [address]. CLIA Number: [id number] Normal [facility] NURSING PROGon 08-30-2020 NURSING PROG HNO ID: [id number] Author: Rosibel Aiken, RODRICK Service: ? Author Type: Registered Nurse Type: Nursing Progress Note Filed: 08/30/2020 2:11 PM Note Text: [facility] ENDOSCOPY PRE PROCEDURE CALL Diana. I'm calling from [facility] endoscopy to provide you with the information [...] confirm the name and relationship of your personal driver. Breana Sandhu What is the best number for your personal driver to be reached at tomorrow for updates? [phone] At this time due to COVID precautions [...] to proceed. Are you familiar with where [facility] is located?yes Address [facility] Patient instructed to enter through the [facility] entrance off [place] at the [address] through the revolving doors and check in at the main desk with your personal driver's license and insurance card. yes If anesthesia or sedation is being given: Patient instructed you must have an adult personal driver because you will not be able to work or drive for the rest of the day after your test.yes Patient instructed not bring any valuables, jewelry, or ponce and wear comfortable clothing. Do not wear makeup, lotion, or finger eritrean. yes Patient instructed: Do not eat or [...] given Any barriers to Patient learning (confusion? Agriculture Extension Specialist needed?): Patient/Patient Tape Duplicator responded appropriately on phone. Type of instruction given: Verbal by telephone contact. [facility] 08-18-2020 [facility] Telephone (SPDIG) ----- NICHOLE SANDHU ([id number]) 1955 F Date Time Provider Department 08/18/20 JAYCE WORKMAN [facility] During your visit today, we recorded the following information about you: Bernarda Delgado, RN 08/18/2020 5:08 PM Signed COLONOSCOPY- Delete [...] instructed that they will need a designated personal driver on the day of the exam. [...] A DAY NEEDED FOR PAIN DIRECTED - epvgrl-bvvhpyqt-ppkyqxz (ZENPEP) 40,000-126,000- 168,000 unit cpDR Take 2 [...] 40 mg by mouth once daily. - xkpmnd-soeesqrd-dwfzwbu (ZENPEP) 40,000-126,000- 168,000 unit cpDR Take 2 [...] mouth once daily. - blood sugar diagnostic (Moleculin VERIO) test strip Use as instructed Problem [...] Encounter Status:Closed by BERNARDA DELGADO on 08/18/20 [facility] Coding Summary.on 01-16-2018 Coding Summary. CODING DATE: 018 FINAL [facility] STATUS: Home (Routine DC) PAYOR: Medical Boron APC DESCRIPTION 5571 Level 1 Imaging with [...] CphT Date Saved: 01/16/2018 07:44 am Normal [facility] Coding Summary.on 12-27-2017 Coding Summary. CODING DATE: 018 FINAL [facility] STATUS: Home (Routine DC) PAYOR: Medical Boron ADMIT DX: REASON FOR VISIT DX: E61.1 [...] CphT Date Saved: 12/27/2017 02:09 pm Normal [facility] Auto Diffon 12-25-2017 Basophils/100 WBC (Bld) 0.2 % Normal 0.0-2.0 [facility] Comment on above: Order Comment: Order Added by Discern Expert. Performed By: #### 2 185247, 05160042, 69628345, 1265355, 4381421 #### [facility] [address] [place] [address] Basophils/Leukocyt es Auto (Bld) [Pure # fraction] 0.0 E9/L Normal 0.0-0.2 [facility] Comment on above: Order Comment: Order Added by Discern Expert. Performed By: #### 2 969659, 98815125, 01543199, 2741557, 5627895 #### [facility] [address] [place] [address] Eosinophils/100 WBC (Bld) 0.9 % Normal 0.0-8.0 [facility] Comment on above: Order Comment: Order Added by Discern Expert. Performed By: #### 2 202124, 60979861, 50398903, 6362692, 6092696 #### [facility] [address] [place] [address] Eosinophils/Leukoc ytes Auto (Bld) [Pure # fraction] 0.1 E9/L Normal 0.0-0.5 [facility] Comment on above: Order Comment: Order Added by Discern Expert. Performed By: #### 2 296329, 83428772, 69464219, 7475735, 9132410 #### [facility] [address] [place] [address] Lymphocytes/100 WBC (Bld) 8.4 % Low 14.0-50.0 [facility] Comment on above: Order Comment: Order Added by Discern Expert. Performed By: #### 2 680008, 51907878, 88120452, 9242740, 2013355 #### [facility] [address] [place] [address] Lymphocytes/Leukoc ytes Auto (Bld) [Pure # fraction] 1.3 E9/L Normal 1.0-4.0 [facility] Comment on above: Order Comment: Order Added by Discern Expert. Performed By: #### 2 720266, 56309833, 12530580, 9247496, 3164777 #### [facility] [address] [place] [address] Monocytes/100 WBC (Bld) 6.8 % Normal 4.0-14.0 [facility] Comment on above: Order Comment: Order Added by Discern Expert. Performed By: #### 2 401025, 49219754, 97411335, 2036487, 9564938 #### [facility] [address] [place] [address] Monocytes/Leukocyt es Auto (Bld) [Pure # fraction] 1.1 E9/L High 0.2-1.0 [facility] Comment on above: Order Comment: Order Added by Discern Expert. Performed By: #### 2 325370, 35198130, 98157536, 9743667, 8020127 #### [facility] [address] [place] [address] Neutrophils/100 WBC (Bld) 83.7 % High 36.0-75.0 [facility] Comment on above: Order Comment: Order Added by Discern Expert. Performed By: #### 2 881512, 04405179, 66778772, 3342767, 2699429 #### [facility] [address] [place] [address] Neutrophils/Leukoc ytes Auto (Bld) [Pure # fraction] 13.1 E9/L High 2.0-7.5 [facility] Comment on above: Order Comment: Order Added by Discern Expert. Performed By: #### 2 109563, 91314403, 04177457, 3228559, 9214912 #### [facility] [address] [place] [address] CBC w/ Auto Diffon 8 Erythrocyte distribution width (RBC) [Ratio] 16.4 % High 10.9-14.2 [facility] Comment on above: Performed By: #### 2 357216, 63790943, 26471804, 9485717, 5847950 #### [facility] [address] [place] [address] Hematocrit (Bld) [Volume fraction] 29.6 % Low 34.0-46.0 [facility] Comment on above: Performed By: #### 2 599097, 72810359, 45134556, 1088574, 7228282 #### [facility] [address] [place] [address] Hemoglobin (Bld) [Mass/Vol] 9.2 g/dL Low 12.0-16.0 [facility] Comment on above: Performed By: #### 2 491927, 77031179, 97142535, 1784187, 4156570 #### [facility] [address] [place] [address] MCH (RBC) [Entitic mass] 23.6 pg Low 27.0-34.0 [facility] Comment on above: Performed By: #### 2 322124, 97362212, 52937736, 0048995, 8126722 #### [facility] [address] [place] [address] MCHC (RBC) [Mass/Vol] 31.1 g/dL Low 31.4-39.3 [facility] Comment on above: Performed By: #### 2 052517, 43494796, 30605227, 7173606, 9717878 #### [facility] [address] [place] [address] MCV (RBC) [Entitic vol] 75.9 fL Low 80.0-100.0 [facility] Comment on above: Performed By: #### 2 669020, 18302517, 29635203, 9236305, 4228901 #### [facility] [address] [place] [address] Platelet mean volume (Bld) [Entitic vol] 10.2 fL Normal 6.4-10.8 [facility] Comment on above: Performed By: #### 2 377656, 87965004, 21608315, 5371482, 7841663 #### [facility] [address] [place] [address] Platelets (Bld) [#/Vol] 375.0 E9/L Normal 150.0-500.0 [facility] Comment on above: Performed By: #### 2 317206, 04103222, 75841547, 4233712, 6416469 #### [facility] [address] [place] [address] RBC (Bld) [#/Vol] 3.9 E12/L Low 4.3-5.9 [facility] Comment on above: Performed By: #### 2 847516, 55891071, 97476366, 3453397, 8335749 #### [facility] [address] [place] [address] WBC corrected for nucl RBC Auto (Bld) [#/Vol] 15.6 E9/L High 4.0-11.0 [facility] Comment on above: Performed By: #### 2 582053, 03322381, 90077269, 8924308, 7129057 #### [facility] [address] [place] [address] CMPon 12-25-2017 Albumin [Mass/Vol] 0.6 g/dL Low 1.1-2.2 [facility] Comment on above: Performed By: #### 2 982096, 54755394, 78199163, 4924367, 7787935 #### [facility] [address] [place] [address] Albumin [Mass/Vol] 2.9 g/dL Low 3.3-5.0 [facility] Comment on above: Performed By: #### 2 297487, 65621314, 52586580, 4907951, 2865353 #### [facility] [address] [place] [address] ALP [Catalytic activity/Vol] 62 Int._Unit/L Normal 21-98 [facility] Comment on above: Performed By: #### 2 260777, 64808696, 64501843, 1989814, 8148435 #### [facility] [address] [place] [address] ALT No additional P-5'-P [Catalytic activity/Vol] 12 Int._Unit/L Normal 6-46 [facility] Comment on above: Performed By: #### 2 610931, 86464555, 39787194, 6111885, 5013198 #### [facility] [address] [place] [address] Anion gap [Moles/Vol] 16 mmol/L Normal 6-16 [facility] Comment on above: Performed By: #### 2 245589, 69766554, 80369509, 1206640, 7407039 #### [facility] [address] [place] [address] AST [Catalytic activity/Vol] 19 Int._Unit/L Normal 5-43 [facility] Comment on above: Performed By: #### 2 624355, 33723297, 14976306, 8073099, 4935143 #### [facility] [address] [place] [address] Bilirubin [Mass/Vol] 0.5 mg/dL Normal 0.0-1.1 [facility] Comment on above: Performed By: #### 2 001493, 25003560, 38791122, 3139827, 5568859 #### [facility] [address] [place] [address] Calcium [Mass/Vol] 8.9 mg/dL Normal 8.9-11.1 [facility] Comment on above: Performed By: #### 2 349023, 85332686, 40934837, 8520162, 9452976 #### [facility] [address] [place] [address] Chloride [Moles/Vol] 98 mmol/L Low 101-111 [facility] Comment on above: Performed By: #### 2 920392, 97873052, 57575241, 0897657, 8659677 #### [facility] [address] [place] [address] CO2 [Moles/Vol] 26 mmol/L Normal 21-31 [facility] Comment on above: Performed By: #### 2 081888, 70452838, 02343678, 4920206, 5702336 #### [facility] [address] [place] [address] Creatinine [Mass/Vol] 0.5 mg/dL Normal 0.5-1.3 [facility] Comment on above: Performed By: #### 2 868675, 92755518, 60937690, 6576370, 4137141 #### [facility] [address] [place] [address] Globulin (S) [Mass/Vol] 4.8 g/dL High 1.4-4.0 [facility] Comment on above: Performed By: #### 2 022788, 58168945, 52085043, 2658864, 0214567 #### [facility] [address] [place] [address] Glucose [Mass/Vol] 105 mg/dL Normal 55-199 [facility] Comment on above: Result Comment: If t his glucose result represents a fasting glucose, interpretation should refer to the following reference range: 55-99 mg/dL Performed By: #### 2 820223, 08821145, 94927930, 6609349, 6871275 #### [facility] [address] [place] [address] Potassium [Moles/Vol] 3.7 mmol/L Normal 3.5-5.3 [facility] Comment on above: Performed By: #### 2 856602, 57117724, 04121667, 5024769, 8895300 #### [facility] [address] [place] [address] Protein [Mass/Vol] 7.7 g/dL Normal 6.0-7.8 [facility] Comment on above: Performed By: #### 2 706752, 00995238, 14172646, 8085864, 2301249 #### [facility] [address] [place] [address] Sodium [Moles/Vol] 136 mmol/L Normal 135-145 [facility] Comment on above: Performed By: #### 2 693125, 48700426, 11337384, 4013642, 0793384 #### [facility] [address] [place] [address] Urea nitrogen [Mass/Vol] 9 mg/dL Normal 5-21 [facility] Comment on above: Performed By: #### 2 201853, 90093294, 20438973, 9960147, 4819275 #### [facility] [address] [place] [address] Urea nitrogen/Creatinin e [Mass ratio] 18 No Units Normal 10-20 [facility] Comment on above: Performed By: #### 2 362240, 74934673, 73783571, 6009960, 1058999 #### [facility] [address] [place] [address] Morphon 12-25-2017 Anisocytosis Ql (Bld) Present Normal [facility] Comment on above: Order Comment: Order Added by Discern Expert. Performed By: #### 2 279556, 94618222, 99650363, 4135435, 4697947 #### [facility] [address] [place] [address] Morphology Víctor (Bld) [Interp] See Morphology Normal [facility] Comment on above: Order Comment: Order Added by Discern Expert. Performed By: #### 2 173989, 19604005, 69667580, 1662713, 3052070 #### [facility] [address] [place] [address] Platelets Large LM Ql (Bld) Present Normal [facility] Comment on above: Order Comment: Order Added by Discern Expert. Performed By: #### 2 144571, 09402931, 30393421, 2987868, 5025734 #### [facility] [address] [place] [address] eGFRon 12-25-2017 GFR/1.73 sq M predicted among blacks MDRD (S/P/Bld) [Vol rate/Area] mL/min/{1.73_m2} Normal >=59 [facility] Comment on above: Order Comment: Order added by Discern Expert. Result Comment: eGFR is race adjusted. AA=. Performed By: #### 2 059188, 85863013, 93088279, 5094979, 5392510 #### [facility] [address] [place] [address] GFR/1.73 sq M predicted among non-blacks MDRD (S/P/Bld) [Vol rate/Area] mL/min/{1.73_m2} Normal >=59 [facility] Comment on above: Order Comment: Order added by Discern Expert. Result Comment: Rolloff Driver kaleigh kidney disease could be indicated at eGFR's of less than 60 mL/min/1.73m2. Kidney failure is indicated at less than 15 mL/min/1.73m2. Performed By: #### 2 163455, 72067504, 96545197, 3860529, 1075148 #### [facility] [address] [place] [address] Coding Summary.on 12-18-2017 Coding Summary. CODING DATE: 018 FINAL [facility] STATUS: Home (Routine DC) PAYOR: Medical Boron APC DESCRIPTION 5571 Level 1 Imaging with [...] [place] Date Saved: 12/18/2017 12:08 pm Normal [facility] Creatinineon 12-17-2017 Creatinine [Mass/Vol] 0.5 mg/dL Normal 0.5-1.3 [facility] Comment on above: Performed By: #### 1 5511321, 0909106 #### [facility] [address] [place] [address] eGFRon 12-17-2017 GFR/1.73 sq M predicted among blacks MDRD (S/P/Bld) [Vol rate/Area] mL/min/{1.73_m2} Normal >=59 [facility] Comment on above: Order Comment: Order added by Discern Expert. Result Comment: eGFR is race adjusted. AA=. Performed By: #### 1 4014917, 0085550 #### [facility] [address] [place] [address] GFR/1.73 sq M predicted among non-blacks MDRD (S/P/Bld) [Vol rate/Area] mL/min/{1.73_m2} Normal >=59 [facility] Comment on above: Order Comment: Order added by Discern Expert. Result Comment: Rolloff Driver kaleigh kidney disease could be indicated at eGFR's of less than 60 mL/min/1.73m2. Kidney failure is indicated at less than 15 mL/min/1.73m2. Performed By: #### 1 5275693, 7654697 #### [facility] [address] [place] [address] Cult, Bloodon 11-08-2017 Cult, Blood Specimen Description .BLOOD Special Requests LT HAND Culture NO GROWTH 6 DAYS Report Status FINAL 11/08/2017 [facility] Comment on above: Performed By: #### L IP, LACWB, IOCAL, PT, CDP, CHANDU, PTT, LIPR, CMPX ####[address] [place], [place] [address] Cult,Bloodon 11-08-2017 Cult,Blood Specimen Description .BLOOD Special Requests NOT REPORTED Culture NO GROWTH 6 DAYS Report Status FINAL 11/08/2017 [facility] Comment on above: Performed By: #### L IP, LACWB, IOCAL, PT, CDP, CHANDU, PTT, LIPR, CMPX ####[address] [id number] Plan of Careon 11-04-2017 HIM IP Note OR 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 Normal [facility] Basic Metabolic Profon 11-03 (cont.) Normal [facility] Comment on above: Result Comment: Aver age GFR for 60-69 years old: 85 mL/min/1.73sq mChronic Kidney Disease: <60 mL/min/1.73sq mKidney failure: <15 mL/min/1.73sq meGFR calculated using average adult body mass. Additional eGFR calculator available at:[email or web address] Performed By: #### L IP, LACWB, IOCAL, PT, CDP, CHANDU, PTT, LIPR, CMPX ####[facility] [address] [place], [place] [id number] Anion gap 3 molar conc 9 mmol/L Normal 9-17 [facility] Comment on above: Performed By: #### L IP, LACWB, IOCAL, PT, CDP, CHANDU, PTT, LIPR, CMPX ####[facility] [address] [place], [place] [id number] Calcium mass conc 8.3 mg/dL Low 8.6-10.4 [facility] Comment on above: Performed By: #### L IP, LACWB, IOCAL, PT, CDP, CHANDU, PTT, LIPR, CMPX ####[address] [place] [address] Chloride molar conc 111 mmol/L High 98-107 [facility] Comment on above: Performed By: #### L IP, LACWB, IOCAL, PT, CDP, CHANDU, PTT, LIPR, CMPX ####[facility] [address] [place] [address] CO2 molar conc 26 mmol/L Normal 20-31 [facility] Comment on above: Performed By: #### L IP, LACWB, IOCAL, PT, CDP, CHANDU, PTT, LIPR, CMPX ####[address] [address] Creatinine mass conc 0.84 mg/dL Normal 0.50-0.90 [facility] Comment on above: Performed By: #### L IP, LACWB, IOCAL, PT, CDP, CHANDU, PTT, LIPR, CMPX ####[address] [address] GFR, Amer >60 Normal >60 [facility] Comment on above: Performed By: #### L IP, LACWB, IOCAL, PT, CDP, CHANDU, PTT, LIPR, CMPX ####[facility] [address] [place] [address] GFR,non Amer >60 Normal >60 [facility] Comment on above: Performed By: #### L IP, LACWB, IOCAL, PT, CDP, CHANDU, PTT, LIPR, CMPX ####[facility] [address] [place] [address] Glucose mass conc 124 mg/dL High 70-99 [facility] Comment on above: Performed By: #### L IP, LACWB, IOCAL, PT, CDP, CHANDU, PTT, LIPR, CMPX ####[address] [place] [address] Potassium molar conc 4.2 mmol/L Normal 3.7-5.3 [facility] Comment on above: Performed By: #### L IP, LACWB, IOCAL, PT, CDP, CHANDU, PTT, LIPR, CMPX ####[place] [address] Sodium molar conc 146 mmol/L High 135-144 [facility] Comment on above: Performed By: #### L IP, LACWB, IOCAL, PT, CDP, CHANDU, PTT, LIPR, CMPX ####[address] [address] Urea nitrogen mass conc 25 mg/dL High 8-23 [facility] Comment on above: Performed By: #### L IP, LACWB, IOCAL, PT, CDP, CHANDU, PTT, LIPR, CMPX ####[place] [address] BUN/CRE Ratio NOT REPORTED Normal 9-20 [facility] Comment on above: Performed By: #### L IP, LACWB, IOCAL, PT, CDP, CHANDU, PTT, LIPR, CMPX ####[place] [address] Staging: NOT REPORTED Normal [facility] Comment on above: Performed By: #### L IP, LACWB, IOCAL, PT, CDP, CHANDU, PTT, LIPR, CMPX ####[place] [address] CBC with Diffon 11-03-2017 Abs. Basophil 0.00 k/uL Normal 0.0-0.2 [facility] Comment on above: Performed By: #### L IP, LACWB, IOCAL, PT, CDP, CHANDU, PTT, LIPR, CMPX ####[place] [address] Abs.Imm.Granulocyt e 0.33 k/uL High 0.00-0.30 [facility] Comment on above: Performed By: #### L IP, LACWB, IOCAL, PT, CDP, CHANDU, PTT, LIPR, CMPX ####[place] [address] Abs.Neutrophil (Seg) 13.12 k/uL High 1.8-7.7 [facility] Comment on above: Performed By: #### L IP, LACWB, IOCAL, PT, CDP, CHANDU, PTT, LIPR, CMPX ####[place] [address] Basophils/100 WBC Auto (Bld) 0 % Normal 0-2 [facility] Comment on above: Performed By: #### L IP, LACWB, IOCAL, PT, CDP, CHANDU, PTT, LIPR, CMPX ####[place] [address] Eosinophils Auto #/vol (Bld) 0.00 10*3/uL Normal 0.0-0.4 [facility] Comment on above: Performed By: #### L IP, LACWB, IOCAL, PT, CDP, CHANDU, PTT, LIPR, CMPX ####[place] [address] Eosinophils/100 WBC Auto (Bld) 0 % Low 1-4 [facility] Comment on above: Performed By: #### L IP, LACWB, IOCAL, PT, CDP, CHANDU, PTT, LIPR, CMPX ####[place] [address] Immature granulocytes #/vol (Bld) 2 % High 0 [facility] Comment on above: Performed By: #### L IP, LACWB, IOCAL, PT, CDP, CHANDU, PTT, LIPR, CMPX ####[address] [address] Lymphocytes Auto #/vol (Bld) 1.49 10*3/uL Normal 1.0-4.8 [facility] Comment on above: Performed By: #### L IP, LACWB, IOCAL, PT, CDP, CHANDU, PTT, LIPR, CMPX ####[address] [address] Lymphocytes/100 WBC Auto (Bld) 9 % Low 24-44 [facility] Comment on above: Performed By: #### L IP, LACWB, IOCAL, PT, CDP, CHANDU, PTT, LIPR, CMPX ####[address] [address] Monocytes Auto #/vol (Bld) 1.66 10*3/uL High 0.1-0.8 [facility] Comment on above: Performed By: #### L IP, LACWB, IOCAL, PT, CDP, CHANDU, PTT, LIPR, CMPX ####[address] [address] Monocytes/100 WBC Auto (Bld) 10 % High 1-7 [facility] Comment on above: Performed By: #### L IP, LACWB, IOCAL, PT, CDP, CHANDU, PTT, LIPR, CMPX ####[address] [address] Morphology Interp Víctor (Bld) ANISOCYTOSIS PRESENT Normal [facility] Comment on above: Result Comment: INCR EASED BANDS PRESENTTOXIC GRANULATION PRESENT Performed By: #### L IP, LACWB, IOCAL, PT, CDP, CHANDU, PTT, LIPR, CMPX ####[address] [address] Neutrophil (Seg) 79 % High 36-66 [facility] Comment on above: Performed By: #### L IP, LACWB, IOCAL, PT, CDP, CHANDU, PTT, LIPR, CMPX ####[address] [address] Erythrocyte distribution width Auto Ratio (RBC) 15.1 % High 11.8-14.4 [facility] Comment on above: Performed By: #### L IP, LACWB, IOCAL, PT, CDP, CHANDU, PTT, LIPR, CMPX ####[address] [address] Hematocrit Auto Volume Fraction (Bld) 35.4 % Low 36.3-47.1 [facility] Comment on above: Performed By: #### L IP, LACWB, IOCAL, PT, CDP, CHANDU, PTT, LIPR, CMPX ####[address] [address] Hemoglobin mass conc (Bld) 10.6 g/dL Low 11.9-15.1 [facility] Comment on above: Performed By: #### L IP, LACWB, IOCAL, PT, CDP, CHANDU, PTT, LIPR, CMPX ####[address] [address] MCH Auto Entitic mass (RBC) 26.3 pg Normal 25.2-33.5 [facility] Comment on above: Performed By: #### L IP, LACWB, IOCAL, PT, CDP, CHANDU, PTT, LIPR, CMPX ####[address] [address] MCHC Auto mass conc (RBC) 29.9 g/dL Normal 28.4-34.8 [facility] Comment on above: Performed By: #### L IP, LACWB, IOCAL, PT, CDP, CHANDU, PTT, LIPR, CMPX ####[address] [address] MCV Auto Entitic volume (RBC) 87.8 fL Normal 82.6-102.9 [facility] Comment on above: Performed By: #### L IP, LACWB, IOCAL, PT, CDP, CHANDU, PTT, LIPR, CMPX ####[place] [address] NRBC Automated 0.1 per 100 WBC High 0.0 [facility] Comment on above: Performed By: #### L IP, LACWB, IOCAL, PT, CDP, CHANDU, PTT, LIPR, CMPX ####[place] [address] Platelet mean volume Auto Entitic volume (Bld) 11.4 fL Normal 8.1-13.5 [facility] Comment on above: Performed By: #### L IP, LACWB, IOCAL, PT, CDP, CHANDU, PTT, LIPR, CMPX ####[place] [address] Platelets Auto #/vol (Bld) 267 10*3/uL Normal 138-453 [facility] Comment on above: Performed By: #### L IP, LACWB, IOCAL, PT, CDP, CHANDU, PTT, LIPR, CMPX ####[address] [address] RBC Auto #/vol (Bld) 4.03 10*6/uL Normal 3.95-5.11 [facility] Comment on above: Performed By: #### L IP, LACWB, IOCAL, PT, CDP, CHANDU, PTT, LIPR, CMPX ####[place] [address] WBC Auto #/vol (Bld) 16.6 10*3/uL High 3.5-11.3 [facility] Comment on above: Performed By: #### L IP, LACWB, IOCAL, PT, CDP, CHANDU, PTT, LIPR, CMPX ####[address] [address] Auto Diff Performed NOT REPORTED Normal [facility] Comment on above: Performed By: #### L IP, LACWB, IOCAL, PT, CDP, CHANDU, PTT, LIPR, CMPX ####[address] [address] Platelets Auto #/vol (Bld) NOT REPORTED Normal [facility] Comment on above: Performed By: #### L IP, LACWB, IOCAL, PT, CDP, CHANDU, PTT, LIPR, CMPX ####[address] [address] RBC morphology finding Nom (Bld) NOT REPORTED Normal [facility] Comment on above: Performed By: #### L IP, LACWB, IOCAL, PT, CDP, CHANDU, PTT, LIPR, CMPX ####[address] [address] WBC Morphology NOT REPORTED Normal [facility] Comment on above: Performed By: #### L IP, LACWB, IOCAL, PT, CDP, CHANDU, PTT, LIPR, CMPX ####[address] [address] Abs. Basophil 0.00 k/uL Normal 0.0-0.2 [facility] Comment on above: Performed By: #### L IP, LACWB, IOCAL, PT, CDP, CHANDU, PTT, LIPR, CMPX ####[address] [address] Abs.Imm.Granulocyt e 0.16 k/uL Normal 0.00-0.30 [facility] Comment on above: Performed By: #### L IP, LACWB, IOCAL, PT, CDP, CHANDU, PTT, LIPR, CMPX ####[place] [address] Abs.Neutrophil (Seg) 13.34 k/uL High 1.8-7.7 [facility] Comment on above: Performed By: #### L IP, LACWB, IOCAL, PT, CDP, CHANDU, PTT, LIPR, CMPX ####[place] [address] Basophils/100 WBC Auto (Bld) 0 % Normal 0-2 [facility] Comment on above: Performed By: #### L IP, LACWB, IOCAL, PT, CDP, CHANDU, PTT, LIPR, CMPX ####[place] [address] Eosinophils Auto #/vol (Bld) 0.00 10*3/uL Normal 0.0-0.4 [facility] Comment on above: Performed By: #### L IP, LACWB, IOCAL, PT, CDP, CHANDU, PTT, LIPR, CMPX ####[place] [address] Eosinophils/100 WBC Auto (Bld) 0 % Low 1-4 [facility] Comment on above: Performed By: #### L IP, LACWB, IOCAL, PT, CDP, CHANDU, PTT, LIPR, CMPX ####[place] [address] Immature granulocytes #/vol (Bld) 1 % High 0 [facility] Comment on above: Performed By: #### L IP, LACWB, IOCAL, PT, CDP, CHANDU, PTT, LIPR, CMPX ####[facility] [address] [place] [address] Lymphocytes Auto #/vol (Bld) 1.10 10*3/uL Normal 1.0-4.8 [facility] Comment on above: Performed By: #### L IP, LACWB, IOCAL, PT, CDP, CHANDU, PTT, LIPR, CMPX ####[address] [place] [address] Lymphocytes/100 WBC Auto (Bld) 7 % Low 24-44 [facility] Comment on above: Performed By: #### L IP, LACWB, IOCAL, PT, CDP, CHANDU, PTT, LIPR, CMPX ####[address] [address] Monocytes Auto #/vol (Bld) 1.10 10*3/uL High 0.1-0.8 [facility] Comment on above: Performed By: #### L IP, LACWB, IOCAL, PT, CDP, CHANDU, PTT, LIPR, CMPX ####[address] [address] Monocytes/100 WBC Auto (Bld) 7 % Normal 1-7 [facility] Comment on above: Performed By: #### L IP, LACWB, IOCAL, PT, CDP, CHANDU, PTT, LIPR, CMPX ####[address] [address] Morphology Interp Víctor (Bld) INCREASED BANDS PRESENT Normal [facility] Comment on above: Result Comment: TOXI C GRANULATION PRESENTANISOCYTOSIS PRESENT Performed By: #### L IP, LACWB, IOCAL, PT, CDP, CHANDU, PTT, LIPR, CMPX ####[address] [address] Neutrophil (Seg) 85 % High 36-66 [facility] Comment on above: Performed By: #### L IP, LACWB, IOCAL, PT, CDP, CHANDU, PTT, LIPR, CMPX ####[address] [address] Erythrocyte distribution width Auto Ratio (RBC) 15.0 % High 11.8-14.4 [facility] Comment on above: Performed By: #### L IP, LACWB, IOCAL, PT, CDP, CHANDU, PTT, LIPR, CMPX ####[address] [address] Hematocrit Auto Volume Fraction (Bld) 35.5 % Low 36.3-47.1 [facility] Comment on above: Performed By: #### L IP, LACWB, IOCAL, PT, CDP, CHANDU, PTT, LIPR, CMPX ####[address] [address] Hemoglobin mass conc (Bld) 10.8 g/dL Low 11.9-15.1 [facility] Comment on above: Performed By: #### L IP, LACWB, IOCAL, PT, CDP, CHANDU, PTT, LIPR, CMPX ####[address] [address] MCH Auto Entitic mass (RBC) 26.5 pg Normal 25.2-33.5 [facility] Comment on above: Performed By: #### L IP, LACWB, IOCAL, PT, CDP, CHANDU, PTT, LIPR, CMPX ####[address] [address] MCHC Auto mass conc (RBC) 30.4 g/dL Normal 28.4-34.8 [facility] Comment on above: Performed By: #### L IP, LACWB, IOCAL, PT, CDP, CHANDU, PTT, LIPR, CMPX ####[address] [address] MCV Auto Entitic volume (RBC) 87.2 fL Normal 82.6-102.9 [facility] Comment on above: Performed By: #### L IP, LACWB, IOCAL, PT, CDP, CHANDU, PTT, LIPR, CMPX ####[place] [address] NRBC Automated 0.0 per 100 WBC Normal 0.0 [facility] Comment on above: Performed By: #### L IP, LACWB, IOCAL, PT, CDP, CHANDU, PTT, LIPR, CMPX ####[address] [address] Platelet mean volume Auto Entitic volume (Bld) 11.7 fL Normal 8.1-13.5 [facility] Comment on above: Performed By: #### L IP, LACWB, IOCAL, PT, CDP, CHANDU, PTT, LIPR, CMPX ####[place] [address] Platelets Auto #/vol (Bld) 260 10*3/uL Normal 138-453 [facility] Comment on above: Performed By: #### L IP, LACWB, IOCAL, PT, CDP, CHANDU, PTT, LIPR, CMPX ####[place] [address] RBC Auto #/vol (Bld) 4.07 10*6/uL Normal 3.95-5.11 [facility] Comment on above: Performed By: #### L IP, LACWB, IOCAL, PT, CDP, CHANDU, PTT, LIPR, CMPX ####[address] [address] WBC Auto #/vol (Bld) 15.7 10*3/uL High 3.5-11.3 [facility] Comment on above: Performed By: #### L IP, LACWB, IOCAL, PT, CDP, CHANDU, PTT, LIPR, CMPX ####[address] [place] [address] Auto Diff Performed NOT REPORTED Normal [facility] Comment on above: Performed By: #### L IP, LACWB, IOCAL, PT, CDP, CHANDU, PTT, LIPR, CMPX ####[address] [place] [address] Platelets Auto #/vol (Bld) NOT REPORTED Normal [facility] Comment on above: Performed By: #### L IP, LACWB, IOCAL, PT, CDP, CHANDU, PTT, LIPR, CMPX ####[address] [place] [address] RBC morphology finding Nom (Bld) NOT REPORTED Normal [facility] Comment on above: Performed By: #### L IP, LACWB, IOCAL, PT, CDP, CHANDU, PTT, LIPR, CMPX ####[facility] [address] [place] [address] WBC Morphology NOT REPORTED Normal [facility] Comment on above: Performed By: #### L IP, LACWB, IOCAL, PT, CDP, CHANDU, PTT, LIPR, CMPX ####[address] [address] [address] ABDOMEN PELVIS W IV CONTR Sukumar [...] by:VIRGIL Woodsigned by:Abhishek Cat MD11/03/inal result Normal [facility] Calcium, Ionicon 11-03-2017 Calcium mass conc 1.21 mmol/L Normal 1.13-1.33 [facility] Comment on above: Performed By: #### L IP, LACWB, IOCAL, PT, CDP, CHANDU, PTT, LIPR, CMPX ####[address] [place] [address] Comp Metabolic Pr/rfx MGon 0 11-03-2017 (cont.) Normal [facility] Comment on above: Result Comment: Aver age GFR for 60-69 years old: 85 mL/min/1.73sq mChronic Kidney Disease: <60 mL/min/1.73sq mKidney failure: <15 mL/min/1.73sq meGFR calculated using average adult body mass. Additional eGFR calculator available at:[email or web address]_[email or web address] Performed By: #### L IP, LACWB, IOCAL, PT, CDP, CHANDU, PTT, LIPR, CMPX ####[address] [place] [address] Albumin mass conc 2.3 g/dL Low 3.5-5.2 [facility] Comment on above: Performed By: #### L IP, LACWB, IOCAL, PT, CDP, CHANDU, PTT, LIPR, CMPX ####[address] [place] [address] Albumin/Globulin mass ratio 0.7 {ratio} Low 1.0-2.5 [facility] Comment on above: Performed By: #### L IP, LACWB, IOCAL, PT, CDP, CHANDU, PTT, LIPR, CMPX ####[address] [place] [address] Alkaline Phos 84 U/L Normal 35-104 [facility] Comment on above: Performed By: #### L IP, LACWB, IOCAL, PT, CDP, CHANDU, PTT, LIPR, CMPX ####[address] [address] ALT enzyme act/vol 44 U/L High 5-33 [facility] Comment on above: Performed By: #### L IP, LACWB, IOCAL, PT, CDP, CHANDU, PTT, LIPR, CMPX ####[address] [place] [address] Anion gap 3 molar conc 12 mmol/L Normal 9-17 [facility] Comment on above: Performed By: #### L IP, LACWB, IOCAL, PT, CDP, CHANDU, PTT, LIPR, CMPX ####[facility] [place] [address] AST enzyme act/vol 43 U/L High <32 [facility] Comment on above: Performed By: #### L IP, LACWB, IOCAL, PT, CDP, CHANDU, PTT, LIPR, CMPX ####[address] [place] [address] Bilirubin Ql (U) 0.51 mg/dL Normal 0.3-1.2 [facility] Comment on above: Performed By: #### L IP, LACWB, IOCAL, PT, CDP, CHANDU, PTT, LIPR, CMPX ####[address] [place] [address] Calcium mass conc 8.3 mg/dL Low 8.6-10.4 [facility] Comment on above: Performed By: #### L IP, LACWB, IOCAL, PT, CDP, CHANDU, PTT, LIPR, CMPX ####[place] [address] Chloride molar conc 106 mmol/L Normal 98-107 [facility] Comment on above: Performed By: #### L IP, LACWB, IOCAL, PT, CDP, CHANDU, PTT, LIPR, CMPX ####[place] [address] CO2 molar conc 23 mmol/L Normal 20-31 [facility] Comment on above: Performed By: #### L IP, LACWB, IOCAL, PT, CDP, CHANDU, PTT, LIPR, CMPX ####[address] [place] [address] Creatinine mass conc 0.90 mg/dL Normal 0.50-0.90 [facility] Comment on above: Performed By: #### L IP, LACWB, IOCAL, PT, CDP, CHANDU, PTT, LIPR, CMPX ####[address] [address] GFR, Amer >60 Normal >60 [facility] Comment on above: Performed By: #### L IP, LACWB, IOCAL, PT, CDP, CHANDU, PTT, LIPR, CMPX ####[address] [address] GFR,non Amer >60 Normal >60 [facility] Comment on above: Performed By: #### L IP, LACWB, IOCAL, PT, CDP, CHANDU, PTT, LIPR, CMPX ####[address] [place] [address] Glucose mass conc 151 mg/dL High 70-99 [facility] Comment on above: Performed By: #### L IP, LACWB, IOCAL, PT, CDP, CHANDU, PTT, LIPR, CMPX ####[address] [place] [address] Potassium molar conc 3.8 mmol/L Normal 3.7-5.3 [facility] Comment on above: Performed By: #### L IP, LACWB, IOCAL, PT, CDP, CHANDU, PTT, LIPR, CMPX ####[address] [address] Protein mass conc 5.7 g/dL Low 6.4-8.3 [facility] Comment on above: Performed By: #### L IP, LACWB, IOCAL, PT, CDP, CHANDU, PTT, LIPR, CMPX ####[address] [place] [address] Sodium molar conc 141 mmol/L Normal 135-144 [facility] Comment on above: Performed By: #### L IP, LACWB, IOCAL, PT, CDP, CHANDU, PTT, LIPR, CMPX ####[facility] [place] [address] Urea nitrogen mass conc 26 mg/dL High 8-23 [facility] Comment on above: Performed By: #### L IP, LACWB, IOCAL, PT, CDP, CHANDU, PTT, LIPR, CMPX ####[facility] [address] [place] [address] BUN/CRE Ratio NOT REPORTED Normal 11-01 [facility] Comment on above: Performed By: #### L IP, LACWB, IOCAL, PT, CDP, CHANDU, PTT, LIPR, CMPX ####[facility] [address] [place] [address] Staging: NOT REPORTED Normal [facility] Comment on above: Performed By: #### L IP, LACWB, IOCAL, PT, CDP, CHANDU, PTT, LIPR, CMPX ####[facility] [address] [place] [address] Cult,Urine,Cathon 11-03-2017 Cult,Urine,Cath Specimen Description .CATHETERIZED URINE Special Requests NOT REPORTED Culture NO GROWTH Report Status FINAL 11/02/2017 Normal [facility] Comment on above: Performed By: #### L IP, LACWB, IOCAL, PT, CDP, CHANDU, PTT, LIPR, CMPX ####[facility] [address] [place] [address] Discharge Summaryon 11-04-19 18 HIM IP Note OR 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 Normal [facility] Plan of Careon 11-03-2017 HIM IP Note OR 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 Normal [facility] HIM IP Note OR 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 Normal [facility] Progress Noteon 11-03-2017 HIM IP Note OR 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 Normal [facility] HIM IP Note OR 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 Normal [facility] HIM IP Note OR 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 Normal [facility] HIM IP Note OR 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 Normal [facility] XR ABDOMEN (KUB) (SINGLE AP VIEW)on 11-03-2017 XR ABDOMEN (KUB) (SINGLE AP VIEW) EXAMINATION:SINGLE SUPINE XRAY VIEW(S) OF THE ABDOMEN11/03/2017 8:42 amCOMPARISON:CT abdomen pelvis from 10/30/2017HISTORY:BOWENIN MDSave SYSTEM PROVIDED HISTORY: reeval ileusTECHNOLOGIST PROVIDED HISTORY:reeval [id number] female; re-evaluate ileusFINDINGS:Portable supine view of the abdomen.Enteric tube traverses the GE junction with distal tip overlying the midmidline abdomen, likely within the body of the stomach. Blunting of the leftcostophrenic angle may represent chronic pleural thickening versus smallleft-sided pleural effusion. Stable left basilar opacity, atelectasis,infiltrate, or mild scarring.color television console monitor leads overlie the abdomen. Mild diffuse [...] by:VIRGIL Gutierrezigned by:Braeden Chavez MD11/03/17inal result Normal [facility] APTTon 11-02-2017 aPTT Coag time (Bld) 27.1 s Normal 20.5-30.5 [facility] Comment on above: Performed By: #### L IP, LACWB, IOCAL, PT, CDP, CHANDU, PTT, LIPR, CMPX ####[address] [place] [address] Amylaseon 11-02-2017 Amylase enzyme act/vol 104 U/L High 28-100 [facility] Comment on above: Performed By: #### L IP, LACWB, IOCAL, PT, CDP, CHANDU, PTT, LIPR, CMPX ####[place] [address] CBC with Diffon 11-02-2017 Abs. Basophil 0.00 k/uL Normal 0.00-0.20 [facility] Comment on above: Performed By: #### L IP, LACWB, IOCAL, PT, CDP, CHANDU, PTT, LIPR, CMPX ####[place] [address] Abs.Imm.Granulocyt e 0.14 k/uL Normal 0.00-0.30 [facility] Comment on above: Performed By: #### L IP, LACWB, IOCAL, PT, CDP, CHANDU, PTT, LIPR, CMPX ####[place] [address] Abs.Neutrophil (Seg) 11.01 k/uL High 1.50-8.10 [facility] Comment on above: Performed By: #### L IP, LACWB, IOCAL, PT, CDP, CHANDU, PTT, LIPR, CMPX ####[place] [address] Basophils/100 WBC Auto (Bld) 0 % Normal 0-2 [facility] Comment on above: Performed By: #### L IP, LACWB, IOCAL, PT, CDP, CHANDU, PTT, LIPR, CMPX ####[place] [address] Eosinophils Auto #/vol (Bld) 0.00 10*3/uL Normal 0.00-0.44 [facility] Comment on above: Performed By: #### L IP, LACWB, IOCAL, PT, CDP, CHANDU, PTT, LIPR, CMPX ####[address] [address] Eosinophils/100 WBC Auto (Bld) 0 % Low 1-4 [facility] Comment on above: Performed By: #### L IP, LACWB, IOCAL, PT, CDP, CHANDU, PTT, LIPR, CMPX ####[address] [address] Immature granulocytes #/vol (Bld) 1 % High 0 [facility] Comment on above: Performed By: #### L IP, LACWB, IOCAL, PT, CDP, CHANDU, PTT, LIPR, CMPX ####[place] [address] Lymphocytes Auto #/vol (Bld) 1.09 10*3/uL Low 1.10-3.70 [facility] Comment on above: Performed By: #### L IP, LACWB, IOCAL, PT, CDP, CHANDU, PTT, LIPR, CMPX ####[address] [address] Lymphocytes/100 WBC Auto (Bld) 8 % Low 24-43 [facility] Comment on above: Performed By: #### L IP, LACWB, IOCAL, PT, CDP, CHANDU, PTT, LIPR, CMPX ####[address] [address] Monocytes Auto #/vol (Bld) 1.36 10*3/uL High 0.10-1.20 [facility] Comment on above: Performed By: #### L IP, LACWB, IOCAL, PT, CDP, CHANDU, PTT, LIPR, CMPX ####[address] [address] Monocytes/100 WBC Auto (Bld) 10 % Normal 3-12 [facility] Comment on above: Performed By: #### L IP, LACWB, IOCAL, PT, CDP, CHANDU, PTT, LIPR, CMPX ####[address] [place] [address] Morphology Interp Víctor (Bld) ANISOCYTOSIS PRESENT Normal [facility] Comment on above: Result Comment: TOXI C GRANULATION PRESENT Performed By: #### L IP, LACWB, IOCAL, PT, CDP, CHANDU, PTT, LIPR, CMPX ####[address] [address] Neutrophil (Seg) 81 % High 36-65 [facility] Comment on above: Performed By: #### L IP, LACWB, IOCAL, PT, CDP, CHANDU, PTT, LIPR, CMPX ####[address] [address] NRBC Automated 0.0 per 100 WBC Normal 0.0 [facility] Comment on above: Performed By: #### L IP, LACWB, IOCAL, PT, CDP, CHANDU, PTT, LIPR, CMPX ####[address] [address] Platelet mean volume Auto Entitic volume (Bld) 11.5 fL Normal 8.1-13.5 [facility] Comment on above: Performed By: #### L IP, LACWB, IOCAL, PT, CDP, CHANDU, PTT, LIPR, CMPX ####[address] [place] [address] Platelets Auto #/vol (Bld) 231 10*3/uL Normal 138-453 [facility] Comment on above: Performed By: #### L IP, LACWB, IOCAL, PT, CDP, CHANDU, PTT, LIPR, CMPX ####[address] [address] WBC Auto #/vol (Bld) 13.6 10*3/uL High 3.5-11.3 [facility] Comment on above: Performed By: #### L IP, LACWB, IOCAL, PT, CDP, CHANDU, PTT, LIPR, CMPX ####[address] [address] Erythrocyte distribution width Auto Ratio (RBC) 14.8 % High 11.8-14.4 [facility] Comment on above: Performed By: #### L IP, LACWB, IOCAL, PT, CDP, CHANDU, PTT, LIPR, CMPX ####[address] [address] Hematocrit Auto Volume Fraction (Bld) 34.5 % Low 36.3-47.1 [facility] Comment on above: Performed By: #### L IP, LACWB, IOCAL, PT, CDP, CHANDU, PTT, LIPR, CMPX ####[address] [address] Hemoglobin mass conc (Bld) 10.3 g/dL Low 11.9-15.1 [facility] Comment on above: Performed By: #### L IP, LACWB, IOCAL, PT, CDP, CHANDU, PTT, LIPR, CMPX ####[address] [address] MCH Auto Entitic mass (RBC) 26.3 pg Normal 25.2-33.5 [facility] Comment on above: Performed By: #### L IP, LACWB, IOCAL, PT, CDP, CHANDU, PTT, LIPR, CMPX ####[address] [address] MCHC Auto mass conc (RBC) 29.9 g/dL Normal 28.4-34.8 [facility] Comment on above: Performed By: #### L IP, LACWB, IOCAL, PT, CDP, CHANDU, PTT, LIPR, CMPX ####[address] [address] MCV Auto Entitic volume (RBC) 88.0 fL Normal 82.6-102.9 [facility] Comment on above: Performed By: #### L IP, LACWB, IOCAL, PT, CDP, CHANDU, PTT, LIPR, CMPX ####[address] [address] RBC Auto #/vol (Bld) 3.92 10*6/uL Low 3.95-5.11 [facility] Comment on above: Performed By: #### L IP, LACWB, IOCAL, PT, CDP, CHANDU, PTT, LIPR, CMPX ####[address] [address] Auto Diff Performed NOT REPORTED Normal [facility] Comment on above: Performed By: #### L IP, LACWB, IOCAL, PT, CDP, CHANDU, PTT, LIPR, CMPX ####[address] [address] Platelets Auto #/vol (Bld) NOT REPORTED Normal [facility] Comment on above: Performed By: #### L IP, LACWB, IOCAL, PT, CDP, CHANDU, PTT, LIPR, CMPX ####[address] [address] RBC morphology finding Nom (Bld) NOT REPORTED Normal [facility] Comment on above: Performed By: #### L IP, LACWB, IOCAL, PT, CDP, CHANDU, PTT, LIPR, CMPX ####[address] [address] WBC Morphology NOT REPORTED Normal [facility] Comment on above: Performed By: #### L IP, LACWB, IOCAL, PT, CDP, CHANDU, PTT, LIPR, CMPX ####[address] [address] Abs. Basophil 0.00 k/uL Normal 0.0-0.2 [facility] Comment on above: Performed By: #### L IP, LACWB, IOCAL, PT, CDP, CHANDU, PTT, LIPR, CMPX ####[address] [address] Abs.Imm.Granulocyt e 0.12 k/uL Normal 0.00-0.30 [facility] Comment on above: Performed By: #### L IP, LACWB, IOCAL, PT, CDP, CHANDU, PTT, LIPR, CMPX ####[place] [address] Abs.Neutrophil (Seg) 9.24 k/uL High 1.8-7.7 [facility] Comment on above: Performed By: #### L IP, LACWB, IOCAL, PT, CDP, CHANDU, PTT, LIPR, CMPX ####[place] [address] Basophils/100 WBC Auto (Bld) 0 % Normal 0-2 [facility] Comment on above: Performed By: #### L IP, LACWB, IOCAL, PT, CDP, CHANDU, PTT, LIPR, CMPX ####[place] [address] Eosinophils Auto #/vol (Bld) 0.00 10*3/uL Normal 0.0-0.4 [facility] Comment on above: Performed By: #### L IP, LACWB, IOCAL, PT, CDP, CHANDU, PTT, LIPR, CMPX ####[address] [address] Eosinophils/100 WBC Auto (Bld) 0 % Low 1-4 [facility] Comment on above: Performed By: #### L IP, LACWB, IOCAL, PT, CDP, CHANDU, PTT, LIPR, CMPX ####[address] [address] Immature granulocytes #/vol (Bld) 1 % High 0 [facility] Comment on above: Performed By: #### L IP, LACWB, IOCAL, PT, CDP, CHANDU, PTT, LIPR, CMPX ####[address] [address] Lymphocytes Auto #/vol (Bld) 1.05 10*3/uL Normal 1.0-4.8 [facility] Comment on above: Performed By: #### L IP, LACWB, IOCAL, PT, CDP, CHANDU, PTT, LIPR, CMPX ####[address] [address] Lymphocytes/100 WBC Auto (Bld) 9 % Low 24-44 [facility] Comment on above: Performed By: #### L IP, LACWB, IOCAL, PT, CDP, CHANDU, PTT, LIPR, CMPX ####[address] [address] Monocytes Auto #/vol (Bld) 1.29 10*3/uL High 0.1-0.8 [facility] Comment on above: Performed By: #### L IP, LACWB, IOCAL, PT, CDP, CHANDU, PTT, LIPR, CMPX ####[address] [place] [address] Monocytes/100 WBC Auto (Bld) 11 % High 1-7 [facility] Comment on above: Performed By: #### L IP, LACWB, IOCAL, PT, CDP, CHANDU, PTT, LIPR, CMPX ####[address] [address] Morphology Interp Víctor (Bld) ANISOCYTOSIS PRESENT Normal [facility] Comment on above: Performed By: #### L IP, LACWB, IOCAL, PT, CDP, CHANDU, PTT, LIPR, CMPX ####[address] [address] Neutrophil (Seg) 79 % High 36-66 [facility] Comment on above: Performed By: #### L IP, LACWB, IOCAL, PT, CDP, CHANDU, PTT, LIPR, CMPX ####[address] [address] NRBC Automated 0.0 per 100 WBC Normal 0.0 [facility] Comment on above: Performed By: #### L IP, LACWB, IOCAL, PT, CDP, CHANDU, PTT, LIPR, CMPX ####[address] [address] Platelet mean volume Auto Entitic volume (Bld) 11.8 fL Normal 8.1-13.5 [facility] Comment on above: Performed By: #### L IP, LACWB, IOCAL, PT, CDP, CHANDU, PTT, LIPR, CMPX ####[address] [address] Platelets Auto #/vol (Bld) 201 10*3/uL Normal 138-453 [facility] Comment on above: Performed By: #### L IP, LACWB, IOCAL, PT, CDP, CHANDU, PTT, LIPR, CMPX ####[address] [address] WBC Auto #/vol (Bld) 11.7 10*3/uL High 3.5-11.3 [facility] Comment on above: Performed By: #### L IP, LACWB, IOCAL, PT, CDP, CHANDU, PTT, LIPR, CMPX ####[address] [address] Erythrocyte distribution width Auto Ratio (RBC) 14.7 % High 11.8-14.4 [facility] Comment on above: Performed By: #### L IP, LACWB, IOCAL, PT, CDP, CHANDU, PTT, LIPR, CMPX ####[address] [address] Hematocrit Auto Volume Fraction (Bld) 33.3 % Low 36.3-47.1 [facility] Comment on above: Performed By: #### L IP, LACWB, IOCAL, PT, CDP, CHANDU, PTT, LIPR, CMPX ####[place] [address] Hemoglobin mass conc (Bld) 10.3 g/dL Low 11.9-15.1 [facility] Comment on above: Performed By: #### L IP, LACWB, IOCAL, PT, CDP, CHANDU, PTT, LIPR, CMPX ####[address] [address] MCH Auto Entitic mass (RBC) 27.0 pg Normal 25.2-33.5 [facility] Comment on above: Performed By: #### L IP, LACWB, IOCAL, PT, CDP, CHANDU, PTT, LIPR, CMPX ####[address] [address] MCHC Auto mass conc (RBC) 30.9 g/dL Normal 28.4-34.8 [facility] Comment on above: Performed By: #### L IP, LACWB, IOCAL, PT, CDP, CHANDU, PTT, LIPR, CMPX ####[address] [address] MCV Auto Entitic volume (RBC) 87.4 fL Normal 82.6-102.9 [facility] Comment on above: Performed By: #### L IP, LACWB, IOCAL, PT, CDP, CHANDU, PTT, LIPR, CMPX ####[address] [address] RBC Auto #/vol (Bld) 3.81 10*6/uL Low 3.95-5.11 [facility] Comment on above: Performed By: #### L IP, LACWB, IOCAL, PT, CDP, CHANDU, PTT, LIPR, CMPX ####[place] [address] Auto Diff Performed NOT REPORTED Normal [facility] Comment on above: Performed By: #### L IP, LACWB, IOCAL, PT, CDP, CHANDU, PTT, LIPR, CMPX ####[address] [address] Platelets Auto #/vol (Bld) NOT REPORTED Normal [facility] Comment on above: Performed By: #### L IP, LACWB, IOCAL, PT, CDP, CHANDU, PTT, LIPR, CMPX ####[address] [address] RBC morphology finding Nom (Bld) NOT REPORTED Normal [facility] Comment on above: Performed By: #### L IP, LACWB, IOCAL, PT, CDP, CHANDU, PTT, LIPR, CMPX ####[address] [address] WBC Morphology NOT REPORTED Normal [facility] Comment on above: Performed By: #### L IP, LACWB, IOCAL, PT, CDP, CHANDU, PTT, LIPR, CMPX ####[place] [address] Calcium, [employer] 11-02-2017 Calcium mass conc 1.08 mmol/L Low 1.13-1.33 [facility] Comment on above: Performed By: #### L IP, LACWB, IOCAL, PT, CDP, CHANDU, PTT, LIPR, CMPX ####[id number] [place] [address] Comp Metabolic Pr/rfx MGon 0 11-02-2017 (cont.) Normal [facility] Comment on above: Result Comment: Aver age GFR for 60-69 years old: 85 mL/min/1.73sq mChronic Kidney Disease: <60 mL/min/1.73sq mKidney failure: <15 mL/min/1.73sq meGFR calculated using average adult body mass. Additional eGFR calculator available at:http://[email or web address]_crcl_2011.htm Performed By: #### L IP, LACWB, IOCAL, PT, CDP, CHANDU, PTT, LIPR, CMPX ####[id number] [place] [address] Albumin mass conc 2.5 g/dL Low 3.5-5.2 [facility] Comment on above: Performed By: #### L IP, LACWB, IOCAL, PT, CDP, CHANDU, PTT, LIPR, CMPX ####[address] [place] [address] Albumin/Globulin mass ratio 0.7 {ratio} Low 1.0-2.5 [facility] Comment on above: Performed By: #### L IP, LACWB, IOCAL, PT, CDP, CHANDU, PTT, LIPR, CMPX ####[facility] [address] [place] [address] Alkaline Phos 74 U/L Normal 35-104 [facility] Comment on above: Performed By: #### L IP, LACWB, IOCAL, PT, CDP, CHANDU, PTT, LIPR, CMPX ####[facility] [place] [address] ALT enzyme act/vol 63 U/L High 5-33 [facility] Comment on above: Performed By: #### L IP, LACWB, IOCAL, PT, CDP, CHANDU, PTT, LIPR, CMPX ####[address] [place] [address] Anion gap 3 molar conc 14 mmol/L Normal 9-17 [facility] Comment on above: Performed By: #### L IP, LACWB, IOCAL, PT, CDP, CHANDU, PTT, LIPR, CMPX ####[address] [address] AST enzyme act/vol 33 U/L High <32 [facility] Comment on above: Performed By: #### L IP, LACWB, IOCAL, PT, CDP, CHANDU, PTT, LIPR, CMPX ####[address] [address] Bilirubin Ql (U) 0.80 mg/dL Normal 0.3-1.2 [facility] Comment on above: Performed By: #### L IP, LACWB, IOCAL, PT, CDP, CHANDU, PTT, LIPR, CMPX ####[address] [address] Calcium mass conc 8.1 mg/dL Low 8.6-10.4 [facility] Comment on above: Performed By: #### L IP, LACWB, IOCAL, PT, CDP, CHANDU, PTT, LIPR, CMPX ####[address] [place] [address] Chloride molar conc 105 mmol/L Normal 98-107 [facility] Comment on above: Performed By: #### L IP, LACWB, IOCAL, PT, CDP, CHANDU, PTT, LIPR, CMPX ####[address] [place] [address] CO2 molar conc 22 mmol/L Normal 20-31 [facility] Comment on above: Performed By: #### L IP, LACWB, IOCAL, PT, CDP, CHANDU, PTT, LIPR, CMPX ####[address] [place] [address] Creatinine mass conc 0.85 mg/dL Normal 0.50-0.90 [facility] Comment on above: Performed By: #### L IP, LACWB, IOCAL, PT, CDP, CHANDU, PTT, LIPR, CMPX ####[address] [address] GFR, Amer >60 Normal >60 [facility] Comment on above: Performed By: #### L IP, LACWB, IOCAL, PT, CDP, CHANDU, PTT, LIPR, CMPX ####[address] [address] GFR,non Amer >60 Normal >60 [facility] Comment on above: Performed By: #### L IP, LACWB, IOCAL, PT, CDP, CHANDU, PTT, LIPR, CMPX ####[address] [address] Glucose mass conc 118 mg/dL High 70-99 [facility] Comment on above: Performed By: #### L IP, LACWB, IOCAL, PT, CDP, CHANDU, PTT, LIPR, CMPX ####[address] [place] [address] Potassium molar conc 3.8 mmol/L Normal 3.7-5.3 [facility] Comment on above: Performed By: #### L IP, LACWB, IOCAL, PT, CDP, CHANDU, PTT, LIPR, CMPX ####[address] [place] [address] Protein mass conc 5.9 g/dL Low 6.4-8.3 [facility] Comment on above: Performed By: #### L IP, LACWB, IOCAL, PT, CDP, CHANDU, PTT, LIPR, CMPX ####[facility] [address] [place] [address] Sodium molar conc 141 mmol/L Normal 135-144 [facility] Comment on above: Performed By: #### L IP, LACWB, IOCAL, PT, CDP, CHANDU, PTT, LIPR, CMPX ####[address] [place] [address] Urea nitrogen mass conc 17 mg/dL Normal 8-23 [facility] Comment on above: Performed By: #### L IP, LACWB, IOCAL, PT, CDP, CHANDU, PTT, LIPR, CMPX ####[address] [place] [address] BUN/CRE Ratio NOT REPORTED Normal 9-20 [facility] Comment on above: Performed By: #### L IP, LACWB, IOCAL, PT, CDP, CHANDU, PTT, LIPR, CMPX ####[address] [place] [address] Staging: NOT REPORTED Normal [facility] Comment on above: Performed By: #### L IP, LACWB, IOCAL, PT, CDP, CHANDU, PTT, LIPR, CMPX ####[address] [address] (cont.) Normal [facility] Comment on above: Result Comment: Aver age GFR for 60-69 years old: 85 mL/min/1.73sq mChronic Kidney Disease: <60 mL/min/1.73sq mKidney failure: <15 mL/min/1.73sq meGFR calculated using average adult body mass. Additional eGFR calculator available at:[email or web address] Performed By: #### L IP, LACWB, IOCAL, PT, CDP, CHANDU, PTT, LIPR, CMPX ####[address] [place] [address] Albumin mass conc 2.4 g/dL Low 3.5-5.2 [facility] Comment on above: Performed By: #### L IP, LACWB, IOCAL, PT, CDP, CHANDU, PTT, LIPR, CMPX ####[address] [place] [address] Albumin/Globulin mass ratio 0.7 {ratio} Low 1.0-2.5 [facility] Comment on above: Performed By: #### L IP, LACWB, IOCAL, PT, CDP, CHANDU, PTT, LIPR, CMPX ####[address] [place] [address] Alkaline Phos 73 U/L Normal 35-104 [facility] Comment on above: Performed By: #### L IP, LACWB, IOCAL, PT, CDP, CHANDU, PTT, LIPR, CMPX ####[address] [address] ALT enzyme act/vol 71 U/L High 5-33 [facility] Comment on above: Performed By: #### L IP, LACWB, IOCAL, PT, CDP, CHANDU, PTT, LIPR, CMPX ####[address] [place] [address] Anion gap 3 molar conc 9 mmol/L Normal 9-17 [facility] Comment on above: Performed By: #### L IP, LACWB, IOCAL, PT, CDP, CHANDU, PTT, LIPR, CMPX ####[address] [address] AST enzyme act/vol 34 U/L High <32 [facility] Comment on above: Performed By: #### L IP, LACWB, IOCAL, PT, CDP, CHANDU, PTT, LIPR, CMPX ####[address] [place] [address] Bilirubin Ql (U) 0.87 mg/dL Normal 0.3-1.2 [facility] Comment on above: Performed By: #### L IP, LACWB, IOCAL, PT, CDP, CHANDU, PTT, LIPR, CMPX ####[address] [address] Calcium mass conc 7.8 mg/dL Low 8.6-10.4 [facility] Comment on above: Performed By: #### L IP, LACWB, IOCAL, PT, CDP, CHANDU, PTT, LIPR, CMPX ####[address] [address] Chloride molar conc 108 mmol/L High 98-107 [facility] Comment on above: Performed By: #### L IP, LACWB, IOCAL, PT, CDP, CHANDU, PTT, LIPR, CMPX ####[address] [address] CO2 molar conc 22 mmol/L Normal 20-31 [facility] Comment on above: Performed By: #### L IP, LACWB, IOCAL, PT, CDP, CHANDU, PTT, LIPR, CMPX ####[address] [address] Creatinine mass conc 0.77 mg/dL Normal 0.50-0.90 [facility] Comment on above: Performed By: #### L IP, LACWB, IOCAL, PT, CDP, CHANDU, PTT, LIPR, CMPX ####[address] [address] GFR, Amer >60 Normal >60 [facility] Comment on above: Performed By: #### L IP, LACWB, IOCAL, PT, CDP, CHANDU, PTT, LIPR, CMPX ####[facility] [address] [place] [address] GFR,non Amer >60 Normal >60 [facility] Comment on above: Performed By: #### L IP, LACWB, IOCAL, PT, CDP, CHANDU, PTT, LIPR, CMPX ####[address] [place] [address] Glucose mass conc 100 mg/dL High 70-99 [facility] Comment on above: Performed By: #### L IP, LACWB, IOCAL, PT, CDP, CHANDU, PTT, LIPR, CMPX ####[address] [place] [address] Potassium molar conc 3.7 mmol/L Normal 3.7-5.3 [facility] Comment on above: Performed By: #### L IP, LACWB, IOCAL, PT, CDP, CHANDU, PTT, LIPR, CMPX ####[address] [place] [address] Protein mass conc 5.7 g/dL Low 6.4-8.3 [facility] Comment on above: Performed By: #### L IP, LACWB, IOCAL, PT, CDP, CHANDU, PTT, LIPR, CMPX ####[facility] [place] [address] Sodium molar conc 139 mmol/L Normal 135-144 [facility] Comment on above: Performed By: #### L IP, LACWB, IOCAL, PT, CDP, CHANDU, PTT, LIPR, CMPX ####[facility] [place] [address] Urea nitrogen mass conc 14 mg/dL Normal 8-23 [facility] Comment on above: Performed By: #### L IP, LACWB, IOCAL, PT, CDP, CHANDU, PTT, LIPR, CMPX ####[address] [place] [address] BUN/CRE Ratio NOT REPORTED Normal 11-01 [facility] Comment on above: Performed By: #### L IP, LACWB, IOCAL, PT, CDP, CHANDU, PTT, LIPR, CMPX ####[address] [place] [address] Staging: NOT REPORTED Normal [facility] Comment on above: Performed By: #### L IP, LACWB, IOCAL, PT, CDP, CHANDU, PTT, LIPR, CMPX ####[address] [address] Consulton 11-02-2017 HIM IP Note OR 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 Normal [facility] Hgb/Hcton 11-02-2017 Hematocrit Auto Volume Fraction (Bld) 35.4 % Low 36.3-47.1 [facility] Comment on above: Performed By: #### L IP, LACWB, IOCAL, PT, CDP, CHANDU, PTT, LIPR, CMPX ####[address] [address] Hemoglobin mass conc (Bld) 10.6 g/dL Low 11.9-15.1 [facility] Comment on above: Performed By: #### L IP, LACWB, IOCAL, PT, CDP, CHANDU, PTT, LIPR, CMPX ####[facility] [address] [place] [address] Hematocrit Auto Volume Fraction (Bld) 34.1 % Low 36.3-47.1 [facility] Comment on above: Performed By: #### L IP, LACWB, IOCAL, PT, CDP, CHANDU, PTT, LIPR, CMPX ####[facility] [place] [address] Hemoglobin mass conc (Bld) 10.4 g/dL Low 11.9-15.1 [facility] Comment on above: Performed By: #### L IP, LACWB, IOCAL, PT, CDP, CHANDU, PTT, LIPR, CMPX ####[address] [address] Lactic Acid,Whole Blon 11-02 Lactic Acid,Whole Bl 1.1 mmol/L Normal 0.7-2.1 [facility] Comment on above: Performed By: #### L IP, LACWB, IOCAL, PT, CDP, CHANDU, PTT, LIPR, CMPX ####[address] [place] [address] Lipaseon 11-02-2017 Lipase enzyme act/vol 54 U/L Normal 13-60 [facility] Comment on above: Performed By: #### L IP, LACWB, IOCAL, PT, CDP, CHANDU, PTT, LIPR, CMPX ####[address] [address] Lipid Profileon 11-02-2017 Cholesterol in HDL mass conc 16 mg/dL Low >40 [facility] Comment on above: Result Comment: HDL Guidelines: <40 Undesirable 40-59 Borderline >59 Desirable Performed By: #### L IP, LACWB, IOCAL, PT, CDP, CHANDU, PTT, LIPR, CMPX ####[address] [address] Cholesterol in LDL mass conc 55 mg/dL Normal 0-130 [facility] Comment on above: Result Comment: LDL Guidelines: <100 Desirable 100-129 Near to/above Desirable 130-159 Borderline >159 UndesirableDirect (measured) LDL and calculated LDL are not interchangeable tests. Performed By: #### L IP, LACWB, IOCAL, PT, CDP, CHANDU, PTT, LIPR, CMPX ####[address] [place] [address] Cholesterol mass conc 96 mg/dL Normal <200 [facility] Comment on above: Result Comment: Chol esterol Guidelines: <200 Desirable 200-240 Borderline >240 Undesirable Performed By: #### L IP, LACWB, IOCAL, PT, CDP, CHANDU, PTT, LIPR, CMPX ####[address] [place] [address] Cholesterol.total/ Cholesterol in HDL mass ratio 6.0 {ratio} High <5 [facility] Comment on above: Performed By: #### L IP, LACWB, IOCAL, PT, CDP, CHANDU, PTT, LIPR, CMPX ####[facility] [address] [place] [address] Triglyceride mass conc 127 mg/dL Normal <150 [facility] Comment on above: Result Comment: Trig lyceride Guidelines: <150 Desirable 150- 199 Borderline 200-499 High >499 Very high Based on AHA Guidelines for fasting triglyceride, November 2011. Performed By: #### L IP, LACWB, IOCAL, PT, CDP, CHANDU, PTT, LIPR, CMPX ####[facility] [address] [place] [address] Cholesterol in VLDL mass conc NOT REPORTED Normal 1-30 [facility] Comment on above: Performed By: #### L IP, LACWB, IOCAL, PT, CDP, CHANDU, PTT, LIPR, CMPX ####[address] [address] MRSA, DNA, Nasalon 8 MRSA, DNA, Nasal NEGATIVE: MRSA DNA n ot detected by nucleic acid amplification. Normal NMRSAA [facility] Comment on above: Result Comment: Resu lts should be used as an adjunct to nosocomial control efforts to identify patients needing enhanced precautions.The test is not intended to identify patients with staphylococcal infections. Results should not be used to guide or monitor treatment for MRSA infections. Performed By: #### L IP, LACWB, IOCAL, PT, CDP, CHANDU, PTT, LIPR, CMPX ####[address] [place], [place] [id number] Magnesiumon 11-02-2017 Magnesium mass conc 2.2 mg/dL Normal 1.6-2.6 [facility] Comment on above: Performed By: #### L IP, LACWB, IOCAL, PT, CDP, CHANDU, PTT, LIPR, CMPX ####[address] [place], [place] [id number] PTon 11-02-2017 INR Coag RelTime (PPP) 1.0 {INR} Normal [facility] Comment on above: Result Comment: Ther apeutic Range: Moderate Anticoagulant Intensity: INR = 2.0-3.0 High Anticoagulant Intensity: INR = 2.5-3.5 Performed By: #### L IP, LACWB, IOCAL, PT, CDP, CHANDU, PTT, LIPR, CMPX ####[address] [place], [place] [id number] Prothrombin time (PT) Coag time (PPP) 10.5 s Normal 9.0-12.0 [facility] Comment on above: Performed By: #### L IP, LACWB, IOCAL, PT, CDP, CHANDU, PTT, LIPR, CMPX ####[facility] [address] [place] [id number] Plan of Careon 11-02-2017 HIM IP Note OR 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 Normal [facility] HIM IP Note OR 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 Normal [facility] Progress Noteon 11-02-2017 HIM IP Note OR 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 Normal [facility] HIM IP Note OR 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 Normal [facility] HIM IP Note OR 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 Normal [facility] HIM IP Note OR 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 Normal [facility] HIM IP Note OR 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 Normal [facility] XR ABDOMEN (KUB) (SINGLE AP VIEW)on [...] Tyson MDSigned by:Moses Tyson MD11/02/17inal result Normal [facility] Consulton 11-01-2017 HIM IP Note OR 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 Normal [facility] History and Physicalon 11-01 HIM IP Note OR 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 Normal [facility] MRSA, DNA, Nasalon 8 Specimen Description .NASAL SWAB Normal [facility] Comment on above: Performed By: #### L IP, LACWB, IOCAL, PT, CDP, CHANDU, PTT, LIPR, CMPX ####[facility] [address] [place] [address] XR ABDOMEN (KUB) (SINGLE AP VIEW)on 11-01-2017 [...] suspected ileus.Interpreted by:Olena Alexander, DOSigned by:Olena Alexander DO18Final result Normal [facility] Vital Signs Date Time Vital Sign Value Performing Clinician Facility 04-14-2024 15:07-0500 Diastolic blood pressure 81 mm[Hg] [facility] 04-14-2024 15:07-0500 Systolic blood pressure 148 mm[Hg] [facility] 04-14-2024 15:03-0500 Body height 160.02 cm [facility] 04-14-2024 15:03-0500 Body mass index (BMI) [Ratio] 36.1 kg/m2 [facility] 04-14-2024 [id number] Body weight 92.7 kg [facility] 04-14-2024 15:03-0500 Heart rate 81 /min [facility] 04-14-2024 15:03-0500 Respiratory rate 18 /min [facility] 04-14-2024 15:03-0500 SaO2% (BldA) [Mass fraction] 95 % [facility] 04-16-2023 13:20-0500 Body mass index (BMI) [Ratio] 35.05 kg/m2 Samia Landeros MD Work Phone: [facility] 04-16-2023 13:20-0500 Body temperature 97.81 [degF] Samia Landeros MD Work Phone: [facility] 04-16-2023 13:20-0500 Body weight 91.17 kg Samia Landeros MD Work Phone: [facility] 04-16-2023 13:20-0500 Diastolic blood pressure 80 mm[Hg] Samia Landeros MD Work Phone: [facility] 04-16-2023 13:20-0500 Heart rate 84 /min Samia Landeros MD Work Phone: [facility] 04-16-2023 13:20-0500 Respiratory rate 16 /min Samia Landeros MD Work Phone: [facility] 04-16-2023 13:20-0500 Systolic blood pressure 142 mm[Hg] Samia Landeros MD Work Phone: [facility] 04-02-2023 11:14-0500 Body height 161.3 cm Samia Landeros MD Work Phone: [facility] 04-02-2023 11:14-0500 Body mass index (BMI) [Ratio] 36.44 kg/m2 [facility] 04-02-2023 11:14-0500 Body weight 94.8 kg [facility] 04-02-2023 11:14-0500 Diastolic blood pressure 80 mm[Hg] [facility] 04-02-2023 11:14-0500 Heart rate 80 /min [facility] 04-02-2023 11:14-0500 Respiratory rate 16 /min [facility] 04-02-2023 11:14-0500 Systolic blood pressure 160 mm[Hg] [facility] 03-12-2023 14:30-0500 Body height 160.02 cm Tondra Mapus Other [facility] 03-12-2023 14:30-0500 Body mass index (BMI) [Ratio] 36.89 kg/m2 Tondra Mapus Other [employer] Other 03-12-2023 14:30-0500 Body weight 94.48 kg Tondra Mapus Other [facility] 03-12-2023 14:30-0500 Diastolic blood pressure 82 mm[Hg] Tondra Mapus Other [facility] 03-12-2023 14:30-0500 Respiratory rate 18 /min Tondra Mapus Other [employer] Other 03-12-2023 14:30-0500 SaO2% (BldA) [Mass fraction] 94 % Tondra Mapus Other [employer] Other 03-12-2023 14:30-0500 Systolic blood pressure 155 mm[Hg] Tondra Mapus Other [facility] 11-27-2022 14:30-0400 Body height 160.02 cm Tondra Mapus Other [employer] Other 11-27-2022 14:30-0400 Body mass index (BMI) [Ratio] 36.26 kg/m2 Tondra Mapus Other [facility] Other 11-27-2022 14:30-0400 Body weight 92.85 kg Tondra Mapus Other [facility] Other 11-27-2022 14:30-0400 Diastolic blood pressure 75 mm[Hg] Tondra Mapus Other [facility] Other 11-27-2022 14:30-0400 Respiratory rate 18 /min Tondra Mapus Other [facility] Other 11-27-2022 14:30-0400 SaO2% (BldA) [Mass fraction] 95 % Tondra Mapus Other [facility] Other 11-27-2022 14:30-0400 Systolic blood pressure 142 mm[Hg] Tondra Mapus Other [employer] Other 08-28-2022 13:30-0400 Body height 160.02 cm Tondra Mapus Other [employer] Other 08-28-2022 13:30-0400 Body mass index (BMI) [Ratio] 34.68 kg/m2 Tondra Mapus Other [facility] Other 08-28-2022 13:30-0400 Body weight 88.81 kg Tondra Mapus Other [facility] Other 08-28-2022 13:30-0400 Diastolic blood pressure 86 mm[Hg] Tondra Mapus Other [employer] Other 08-28-2022 13:30-0400 Respiratory rate 18 /min Tondra Mapus Other [employer] Other 08-28-2022 13:30-0400 SaO2% (BldA) [Mass fraction] 96 % Tondra Mapus Other [employer] Other 08-28-2022 13:30-0400 Systolic blood pressure 157 mm[Hg] Tondra Mapus Other [employer] Other 05-24-2022 15:15-0400 Body height 160.02 cm Tondra Mapus Other [employer] Other 05-24-2022 15:15-0400 Body mass index (BMI) [Ratio] 33.65 kg/m2 Tondra Mapus Other [employer] Other 05-24-2022 15:15-0400 Body weight 86.18 kg Tondra Mapus Other [employer] Other 05-24-2022 15:15-0400 Diastolic blood pressure 78 mm[Hg] Tondra Mapus Other [employer] Other 05-24-2022 15:15-0400 Respiratory rate 18 /min Tondra Mapus Other [employer] Other 05-24-2022 15:15-0400 SaO2% (BldA) [Mass fraction] 98 % Tondra Mapus Other [employer] Other 05-24-2022 15:15-0400 Systolic blood pressure 164 mm[Hg] Tondra Mapus Other [facility] Other 04-26-2022 15:45-0400 Body height 160.02 cm Tondra Mapus Other [employer] Other 04-26-2022 15:45-0400 Body mass index (BMI) [Ratio] 33.35 kg/m2 Tondra Mapus Other [facility] Other 04-26-2022 15:45-0400 Body weight 85.41 kg Tondra Mapus Other [employer] Other 04-26-2022 15:45-0400 Diastolic blood pressure 84 mm[Hg] Tondra Mapus Other [facility] Other 04-26-2022 15:45-0400 Respiratory rate 18 /min Tondra Mapus Other [facility] Other 04-26-2022 15:45-0400 SaO2% (BldA) [Mass fraction] 96 % Tondra Mapus Other [facility] Other 04-26-2022 15:45-0400 Systolic blood pressure 154 mm[Hg] Tondra Mapus Other [employer] Other 02-20-2022 15:45-0500 Body height 160.02 cm Tondra Mapus Other [facility] Other 02-20-2022 15:45-0500 Body mass index (BMI) [Ratio] 32.47 kg/m2 Tondra Mapus Other [facility] Other 02-20-2022 15:45-0500 Body weight 83.14 kg Tondra Mapus Other [employer] Other 02-20-2022 15:45-0500 Diastolic blood pressure 91 mm[Hg] Tondra Mapus Other [facility] Other 02-20-2022 15:45-0500 Respiratory rate 18 /min Tondra Mapus Other [employer] Other 02-20-2022 15:45-0500 SaO2% (BldA) [Mass fraction] 96 % Tondra Mapus Other [facility] Other 02-20-2022 15:45-0500 Systolic blood pressure 160 mm[Hg] Tondra Mapus Other [employer] Other 01-16-2022 09:00-0500 Body height 160.02 cm Tondra Mapus Other [facility] Other 01-16-2022 09:00-0500 Body mass index (BMI) [Ratio] 31.92 kg/m2 Tondra Mapus Other [facility] Other 01-16-2022 09:00-0500 Body weight 81.74 kg Tondra Mapus Other [facility] Other 01-04-2022 12:00-0500 Body height 160.02 cm Tondra Mapus Other [facility] Other 01-04-2022 12:00-0500 Body mass index (BMI) [Ratio] 31.28 kg/m2 Tondra Mapus Other [facility] Other 01-04-2022 12:00-0500 Body weight 80.11 kg Tondra Mapus Other [facility] Other 01-04-2022 12:00-0500 Diastolic blood pressure 89 mm[Hg] Tondra Mapus Other [facility] Other 01-04-2022 12:00-0500 Respiratory rate 18 /min Tondra Mapus Other [facility] Other 01-04-2022 12:00-0500 SaO2% (BldA) [Mass fraction] 98 % Tondra Mapus Other [facility] Other 01-04-2022 12:00-0500 Systolic blood pressure 154 mm[Hg] Tondra Mapus Other [employer] Other Encounters Encounter Date Encounter Type Care Provider Facility Start: 06-20-2024 End: 06-20-2024 Refill Samia Landeros MD Work Phone: [facility] Start: 05-18-2024 End: 05-19-2024 Refill Samia Landeros MD Work Phone: [facility] Start: 04-23-2024 End: 04-23-2024 Refill Samia Landeros MD Work Phone: [facility] Start: 04-14-2024 End: 04-14-2024 ambulatory [facility] Work Phone: Start: 04-14-2024 End: 04-14-2024 Patient encounter procedure [facility] Work Phone: Start: 02-19-2024 End: 02-19-2024 [facility] Start: 10-22-2023 End: 10-22-2023 Telephone encounter [facility] Start: 10-16-2023 End: 10-16-2023 ambulatory SAMIA LANDEROS [facility] Start: 09-11-2023 End: 09-11-2023 Refill Samia Landerso MD Work Phone: [facility] Start: 08-24-2023 End: 08-27-2023 Refill Samia Landeros MD Work Phone: [facility] Start: 08-17-2023 End: 08-20-2023 Refill Samia Landeros MD Work Phone: [facility] Start: 07-24-2023 End: 07-24-2023 Orders Only Samia Landeros MD Work Phone: [facility] Start: 07-16-2023 End: 07-16-2023 Refill Samia Landeros MD Work Phone: [facility] Start: 06-15-2023 End: 06-18-2023 Refill Samia Landeros MD Work Phone: [facility] Comment on above: Mixed hyperlipidemia Start: 05-07-2023 Telephone encounter Samia Payton MD Work Phone: [facility] Start: 04-27-2023 Telephone encounter Yohana Woodson [facility] Start: 04-18-2023 Orders Only [facility] carrasco [facility] Start: 04-16-2023 End: 04-16-2023 Office outpatient visit 15 minutes [facility] Comment on above: Other acute sinusiti s, recurrence not specified (Primary Dx) Start: 04-16-2023 End: 04-16-2023 ambulatory SAMIA LANDEROS [facility] Start: 04-02-2023 End: 04-02-2023 Office outpatient visit 15 minutes Samia Landeros MD Work Phone: [facility] Comment on above: Secondary diabetes m ellitus ([facility]) (Primary Dx); Necrotizing pancreatitis; Mixed hyperlipidemia; Essential hypertension, benign Start: 04-02-2023 End: 04-02-2023 ambulatory SAMIA LANDEROS [facility] Start: 03-26-2023 Refill Samia carrasco MD [facility]: [facility] [facility] Start: 03-23-2023 End: 03-23-2023 ambulatory Tondra Mapus Other [employer] Other Start: 03-23-2023 Telephone encounter Tondra Phillips [facility] Start: 03-12-2023 End: 03-12-2023 Discharged Recurring MD Samia Landeros Work Phone: [facility] Work Phone: Start: 03-12-2023 (DM) Diabetes Tondra Jacqueline [facility] Start: 03-12-2023 End: 03-13-2023 ambulatory MD Samia Landeros Work Phone: [employer] Other Start: 03-12-2023 End: 03-12-2023 Patient encounter procedure MD Samia Landeros Work Phone: [facility] Start: 02-15-2023 Refill Samia carrasco MD Work Phone: [facility] Start: 01-01-2023 End: 01-01-2023 ambulatory Tondra Mapus Other [employer] Other Start: 01-01-2023 Telephone encounter Tondra Mapus [facility] Start: 11-27-2022 (DM) Diabetes Tondra Mapus [facility] Start: 11-27-2022 End: 11-27-2022 ambulatory Tondra Mapus Other [employer] Other Start: 08-28-2022 (DM) Diabetes Tondra Mapus [facility] Start: 08-28-2022 End: 08-28-2022 ambulatory Tondra Mapus Other [employer] Other Start: 05-24-2022 (DM) Diabetes Tondra Mapus [facility] Start: 05-24-2022 End: 05-24-2022 ambulatory Tondra Mapus Other [employer] Other Start: 05-01-2022 End: 05-02-[address] SAMIA LANDEROS Facility: Start: 04-26-2022 (DM) Diabetes Tondra Mapus [facility] Start: 04-26-2022 End: 04-26-2022 ambulatory Tondra Mapus Other [employer] Other Start: 03-09-2022 End: 03-09-2022 ambulatory Tondra Mapus Other [employer] Other Start: 03-09-2022 Telephone encounter Tondra Mapus [facility] Start: 03-06-2022 End: 03-06-2022 ambulatory Tondra Mapus Other [employer] Other Start: 03-06-2022 Telephone encounter Tondra Mapus [facility] Start: 02-20-2022 (DM) Diabetes Tondra Jacqueline [facility] Start: 02-20-2022 End: 02-20-2022 ambulatory Tondra Mapus Other [employer] Other Start: 01-20-2022 End: 01-20-2022 ambulatory Tondra Mapus Other [employer] Other Start: 01-20-2022 Telephone encounter Tondra Mapus [facility] Start: 01-16-2022 End: 01-16-2022 ambulatory Tondra Mapus Other [employer] Other Start: 01-16-2022 Nursing evaluation o f patient and report [facility] Start: 01-16-2022 Telephone encounter Tondra Mapus [facility] Start: 01-13-2022 End: 01-13-2022 ambulatory Pk Grady MD Work Phone: General Surgery Comment on above: Secondary diabetes m homero (HCC) (Primary Dx) Start: 01-13-2022 End: 01-13-2022 Telemedicine consultation with patient Pk Grady MD Work Phone: [facility] Start: 01-08-2022 End: 01-08-2022 ambulatory Tondra Mapus Other [employer] Other Start: 01-08-2022 Telephone encounter Tondra Mapus [facility] Start: 01-06-2022 End: 01-07-[address] SAMIA LANDEROS Facility:[facility]1 Start: 01-04-2022 End: 01-04-2022 ambulatory Tondra Mapus Other [employer] Other Start: 01-04-2022 FQHC visit new patient Tondra Jacqueline [facility] Start: 11-18-[address] SAMIA LANDEROS Facil ity:H1 Start: 11-14-2021 End: 11-14-2021 ambulatory Juanita Fletcher Other [facility] Other Start: 11-14-2021 Telephone encounter Juanita Fletcher [facility] Start: 11-08-2021 End: 11-09-[address] SAMIA LANDEROS Facility:[facility]1 Start: 10-24-2021 End: 10-25-[address] SAMIA LANDEROS Facility:[facility] Start: 11-01-2017 End: 11-04-2017 Evaluation and management of inpatient [facility] Procedures Date Procedure Procedure Detail Performing Clinician Start: 12-20-2023 Diabetic retinal eye exam Samia Landeros MD Work Phone: Start: 12-19-2023 Mammography Samia Landeros MD Work Phone: Start: 10-16-2023 Adult depression screening assessment Samia Landeros MD Work Phone: Start: 04-02-2023 Adult depression screening assessment Samia Landeros MD Work Phone: Start: 12-14-2022 Diabetic retinal eye exam Samia Landeros MD Work Phone: Start: 10-10-2022 Adult depression screening assessment Samia Landeros MD Work Phone: Start: 09-04-2022 Microalbumin [Mass/volume] in Urine by Test strip Samia Landeros MD Work Phone: Start: 11-08-2021 Mammography Pk Grady MD Work Phone: Start: 08-31-2020 Colonoscopy Pk Grady MD Work Phone: Start: 11-03-2017 POC GLUCOSE FINGERSTICK STEPH [facility]ASTHI Start: 11-03-2017 POCT GLUCOSE [facility] Start: 11-03-2017 DISCHARGE PATIENT [facility] Start: 11-03-2017 Basic metabolic panel calcium total [facility] Start: 11-03-2017 Blood count complete auto&auto difrntl wbc [facility] Start: 11-03-2017 ALCOHOL AND OR DRUG ASSESSMENT [facility] Start: 11-03-2017 FALL PRECAUTIONS [facility] Start: 11-03-2017 INITIATE OXYGEN THERAPY PROTOCOL [facility] Start: 11-03-2017 SEIZURE PRECAUTIONS [facility] Start: 11-03-2017 POCT GLUCOSE [facility] Start: 11-03-2017 Ct abdomen & pelvis w/contrast material [facility] Start: 11-03-2017 Radiologic exam abdomen 1 view [facility] Start: 11-03-2017 POCT GLUCOSE [facility] Start: 11-03-2017 CALCIUM, IONIZED [facility] Start: 11-03-2017 POC GLUCOSE FINGERSTICK [facility] Start: 11-03-2017 INITIATE OXYGEN THERAPY PROTOCOL [facility] Start: 11-03-2017 RESPIRATORY CARE EVALUATION AND TREAT [facility] Start: 11-03-2017 Blood count complete auto&auto difrntl wbc [facility] Start: 11-03-2017 POCT GLUCOSE [facility] Start: 11-03-2017 POC GLUCOSE FINGERSTICK [facility] Start: 11-02-2017 POC GLUCOSE FINGERSTICK [facility] Start: 11-02-2017 POCT GLUCOSE [facility] Start: 11-02-2017 Radiologic exam abdomen 1 view [facility] Start: 11-02-2017 HEMOGLOBIN AND HEMATOCRIT, BLOOD [facility] Start: 11-02-2017 POC GLUCOSE FINGERSTICK [facility] Start: 11-02-2017 IP CONSULT TO IV TEAM [facility] Start: 11-02-2017 POCT GLUCOSE [facility] Start: 11-02-2017 HEMOGLOBIN AND HEMATOCRIT, BLOOD [facility] Start: 11-02-2017 TUBE INSERTION [facility] Start: 11-02-2017 POC GLUCOSE FINGERSTICK [facility] Start: 11-02-2017 POCT GLUCOSE [facility] Start: 11-02-2017 INITIATE OXYGEN THERAPY PROTOCOL [facility] Start: 11-02-2017 RESPIRATORY CARE EVALUATION AND TREAT [facility] Start: 11-02-2017 Assay of magnesium [facility] Start: 11-02-2017 Blood count complete auto&auto difrntl wbc [facility] Start: 11-02-2017 Assay of amylase [facility] Start: 11-02-2017 Assay of lactate [facility] Start: 11-02-2017 Assay of lipase [facility] Start: 11-02-2017 Blood count complete auto&auto difrntl wbc [facility] Start: 11-02-2017 CALCIUM, IONIZED [facility] Start: 11-02-2017 Lipid panel [facility] Start: 11-02-2017 Prothrombin time [facility] Start: 11-02-2017 Thromboplastin time partial plasma/whole blood [facility] Start: 11-02-2017 Culture bacterial blood aerobic w/id isolates [facility] Start: 11-02-2017 CULTURE BLOOD #1 [facility] Start: 11-01-2017 RESPIRATORY CARE EVALUATION AND TREAT [facility] Start: 11-01-2017 EKG 12-LEAD [facility] Start: 11-01-2017 CULTURE, URINE CATHETER [facility] Start: 11-01-2017 Radiologic exam abdomen 1 view [facility] Start: 11-01-2017 IP CONSULT TO GI [facility] Start: 11-01-2017 PLACE INTERMITTENT PNEUMATIC COMPRESSION DEVICE [facility] Start: 11-01-2017 REASON FOR NO CHEMICAL VTE PROPHYLAXIS [facility] Start: 11-01-2017 FULL CODE [facility] Start: 11-01-2017 INITIATE OXYGEN THERAPY PROTOCOL [facility] Start: 11-01-2017 NOTIFY PHYSICIAN (SPECIFY) [facility] Start: 11-01-2017 VITAL SIGNS [facility] Start: 11-01-2017 MRSA DNA PROBE, NASAL [facility] Start: 11-01-2017 IP CONSULT TO GENERAL SURGERY [facility] Start: 11-01-2017 PATIENT STATUS (DIRECT) STEPH [facility] H/O: surgery H/O resection of pancreas Plan of Treatment Date Care Activity Detail Author Start: 08-19-2026 DTaP,Tdap and Td Vaccines (2 - Td or Tdap) DTaP,Tdap and Td Vaccines (2 - Td or Tdap) [facility] Start: 08-19-2026 Urine microalbumin profile DTAP,TDAP,TD (2 - Td or Tdap) [facility] Start: 12-19-2024 Glaucoma screening Diabetic Op hthalmology Exam [facility] Start: 12-18-2024 Screening for malign ant neoplasm of breast Mammogram [facility] Start: 10-20-2024 End: 10-20-2024 Patient encounter procedure [facility] Start: 10-15-2024 Adult BMI Screening Adult BMI Screen ing [facility] Start: 10-15-2024 Depression Screening Depression Scre ening [facility] Start: 10-15-2024 Fall Risk Screening Fall Risk Screen ing [facility] Start: 10-15-2024 Medicare Annual Well ness Visit Medicare Annual Wellness Visit [facility] Start: 10-15-2024 Tobacco Screening Tobacco Screening [facility] Start: 10-13-2024 Influenza vaccination Influenza Vacc ine [facility] Start: 04-15-2024 Adult BMI Screening Adult BMI Screen ing [facility] Start: 04-02-2024 Adult BMI Screening Adult BMI Screen ing [facility] Start: 04-02-2024 Depression Screening Depression Scre ening [facility] Start: 04-02-2024 Fall Risk Screening Fall Risk Screen ing [facility] Start: 04-02-2024 Tobacco Screening Tobacco Screening [facility] Start: 12-15-2023 Glaucoma screening Diabetic Op hthalmology Exam [facility] Start: 10-16-2023 End: 10-16-2023 Patient encounter procedure 10/16/2023 3:00 PM EDT Office Visit [facility] [address] [place] [address] Samia Landeros MD [address] [place] [address] [facility] Start: 10-14-2023 Influenza vaccination Influenza Vacc ine [facility] Start: 10-13-2023 Adult BMI Screening Adult BMI Screen ing [facility] Start: 10-13-2023 Medicare Annual Well ness Visit Medicare Annual Wellness Visit [facility] Start: 10-13-2023 Tobacco Screening Tobacco Screening [facility] Start: 10-11-2023 Depression Screening Depression Scre ening [facility] Start: 10-11-2023 Fall Risk Screening Fall Risk Screen ing [facility] Start: 09-05-2023 Urine screening for protein Urine Microalbumin [facility] Start: 04-23-2023 End: 04-23-2023 Clinical Support 04/23/2023 3:00 PM EDT Clinical Support [facility] [address] [place] [phone] [facility] Start: 04-13-2023 Diabetic foot examination Diabetic Foot Exam [facility] Start: 04-10-2023 End: 04-10-2023 Patient encounter procedure 04/10/2023 3:30 PM EST Office Visit [facility] [address] [place] [phone] Samia Landeros MD [address] [place], [place] [id number] [facility] Start: 04-02-2023 End: 04-02-2023 Patient encounter procedure 04/02/2023 11:15 AM EST Office Visit [facility] [address] [place] [id number] Samia Landeros MD [address] [place] [address] [facility] Start: 11-08-2022 Mammography MAMMOGRAM [facility] Start: 11-08-2022 Screening for malign ant neoplasm of breast Mammogram [facility] Start: 10-13-2022 Influenza vaccination Influenza Vacc ine [facility] Start: 05-08-2022 Hemoglobin A1c/Hemoglobin.total in Blood HBA1C [facility] Start: 10-13-2021 Influenza vaccination INFLUENZA (#1) [facility] Start: 08-31-2021 Colonoscopy COLONOSCOPY [facility] Start: 08-31-2021 COLORECTAL CANCER SCREENING COLORECTAL CANCER SCREENING [facility] Start: 02-12-2021 DEPRESSION ASSESSMENT DEPRESSION ASS ESSMENT [facility] Start: 2007 Administration of varicella zoster vaccine Zoster (Shingles) Vaccine (1 of 2) [facility] Start: 2007 SHINGRIX VACCINE (1 of 2) SHINGRIX VACCINE (1 of 2) [facility] Start: 2002 COLOGUARD (FIT-DNA) COLOGUARD (FIT-D NA) [facility] Start: [address] COLONOGRAPHY [facility] Start: 2002 FECAL OCCULT BLOOD FECAL OCCULT BLOO D [facility] Start: 2002 SIGMOIDOSCOPY SIGMOIDOSCOPY [facility] Start: 1987 HPV TESTING HPV TESTING [facility] Start: 1978 PAP TESTING PAP TESTING [facility] Start: 1975 Adult BMI Follow Up Plan Adult BMI Follow Up Plan [facility] Start: 1975 ANNUAL PCP TEAM MEDICAL MICROBIOLOGIST [place] DISEASE VISIT ANNUAL PCP TEAM CHRONIC DISEASE VISIT [facility] Start: 1975 BP CONTROLLED (<130/80) BP CONTROLLE D (<130/80) [facility] Start: 1975 Hepatitis B surface antibody level LDL CHOLESTEROL [facility] Start: 1975 HEPATITIS C SCREENING HEPATITIS C SC REENING [facility] Start: 1975 HIV SCREENING HIV SCREENING [facility] Start: 1967 3 comp foot exam completed DIABETIC FOOT EXAM [facility] Start: 1967 Hepatitis B screening URINE ALBUMIN:CREATININE RATIO [facility] Start: 1967 Hepatitis C antibody , confirmatory test DILATED RETINAL EXAM [facility] Start: 1963 PNEUMOCOCCAL (1 - PCV) PNEUMOCOCCAL (1 - PCV) [facility] Start: 1957 COVID-19 VACCINE (#1) COVID-19 VACCI NE (#1) [facility] End: 04-02-2024 Basic metabolic 2000 panel - Serum or Plasma Basic Metabolic Panel Lab Routine Essential hypertension, benign 1 Occurrences starting 04/02/2023 until 04/02/2024 [employer] Work Phone: Comment on above: 1 Occurrences starti ng 04/02/2023 until 04/02/2024 Comprehensive metabo lic 2000 panel - Serum or Plasma [facility] Immunizations Immunization Date Immunization Notes Care Provider Fa cility 01-18-2023 Pneumococcal Conjuga te 20-valent Samia Landeros MD Work Phone: [facility] 12-14-2019 influenza, injectabl e, quadrivalent, preservative free Samia Landeros MD Work Phone: [facility] 12-14-2019 influenza virus vacc ine, unspecified formulation Samia Landeros MD Work Phone: [facility] 11-03-2018 Influenza, injectabl e, Madin Natasha Canine Kidney, preservative free, quadrivalent Samia Landeros MD Work Phone: [facility] 11-03-2018 influenza, injectabl e, quadrivalent, preservative free Samia Landeros MD Work Phone: [facility] 10-01-2018 meningococcal polysaccharide (groups A, C, Y and W-135) diphtheria toxoid conjugate vaccine (MCV4P) Samia Landeros MD Work Phone: [facility] 10-01-2018 pneumococcal polysaccharide vaccine, 23 valent Samia Landeros MD Work Phone: [facility] 07-16-2018 haemophilus influenz ae type b vaccine, conjugate unspecified formulation Samia Landeros MD Work Phone: [facility] 07-16-2018 meningococcal oligosaccharide (groups A, C, Y and W-135) diphtheria toxoid conjugate vaccine (MCV4O) Samia Landeros MD Work Phone: [facility] 07-16-2018 pneumococcal polysaccharide vaccine, 23 valent Samia Landeros MD Work Phone: [facility] 12-04-2017 influenza, injectabl e, quadrivalent, contains preservative Pk Grady MD Work Phone: [facility] 08-19-2016 tetanus toxoid, redu danny diphtheria toxoid, and acellular pertussis vaccine, adsorbed Pk Grady MD Work Phone: [facility] Work Phone: Payers Date Payer Category Payer Medicaid [id number] 2020 Medicare [facility] MEDICARE ANTHEM MEDICARE ADVANTAGE [id number] 2020-Present [phone] [address] [place] [address] [id number] 2020 Medicare HMO AN[employer]M MEDICARE [id number] 2018 Auto Insurance AUTO INSURANCE [id number] 2018 Unknown [id number] 2014 Unknown [id number] 1959 Blue Cross Blue [facility] [id number] 1959 Medicaid [id number] 1959 Self-pay 1957 Unknown [id number] 593 1957 Unknown [id number] 593 1957 Unknown [id number] 593 1957 Unknown [id number] 593 1957 Unknown [id number] 593 1957 Unknown [id number] 593 1957 Unknown [id number] 1957 Unknown [id number] 1957 Unknown [id number] Unknown [id number] Social History Date Type Detail Facility Unknown if ever smoked [employer] Other Start: 03-23-2020 End: 10-16-2023 [facility] Start: 07-01-2018 End: 06-18-2023 Tobacco smoking status NHIS Ex-smoker [facility] End: 02-12-1998 History of tobacco use Current smoker [facility] End: 02-12-1998 History of tobacco use Cigarette Smoker [facility] Start: 07-01-2018 End: 03-23-2020 Cigarettes smoked current (pack per day) - Reported 0.1 [facility] Start: 07-01-2018 End: 04-12-2022 Tobacco use and exposure Smokeless tobacco non-user [facility] Start: 01-13-2022 End: 10-16-2023 Alcohol intake Ex-drinker (finding) [facility] Start: 1955 Sex Assigned At Not on file [facility] Start: 1955 Sex Assigned At Female [facility] Start: 04-12-2022 Tobacco smoking status NHIS Never smoked tobacco [facility] Do you belong to any clubs or organizations such as jainism groups, unions, fraternal or athletic groups, or school groups? Yes [facility] Are you now , , , , never or living with a partner? Never [facility] How often to you hav e a drink containing alcohol? [facility] How many standard dr inks containing alcohol do you have on a typical day? Patient declined [facility] Do you feel stress - tense, restless, nervous, or anxious, or unable to sleep at night because your mind is troubled all the time - these days [OSQ] Not at all [facility] [employer] Start: 03-23-2020 Education [facility] Start: 11-22-2017 Alcohol Comment occasional [facility] Start: 11-19-2017 End: 04-14-2024 Sex Female (finding) [facility] [employer] [facility] Medical Equipment Procedure Code Equipment Code Equipment Origin al Text Equipment Identifier Dates [id number], [id number], [id number] Start: 11-18-2017 Comment on above: Use as instructed blood sugar diagnostic (True Metrix Glucose Test Strip) Start: 06-18-2023 Clinical Notes 11-27-2017 to 10-22-2023 Telephone Encounter - Samia Landeros MD - 10/22/2023 3:51 PM EDTTelephone Encounter - Samia Landeros MD - 10/22/2023 3:51 PM EDTTelephone Encounter - Yohana Keller LPN - 09/11/2023 12:43 AM EDT Note Date & Type Note Facility 10-22-2023 Miscellaneous Notes Outside labs - wbc# 15,000 has fluctuated in the past- and pt has no c/o's on ros including exposure- will observe k+ 3.4 and is on potassium 10meq 1 qd , will increase to bid rx sent documented in this encounter [facility] 10-22-2023 Telephone encounter Note Outside labs - wbc# 15,000 has fluctuated in the past- and pt has no c/o's on ros including exposure- will observe k+ 3.4 and is on potassium 10meq 1 qd , will increase to bid rx sent [facility] 09-11-2023 Miscellaneous Notes [facility] requesting refill of Ferrous Sulfate documented in this encounter [facility] 09-11-2023 Telephone encounter Note [facility] requesting refill of Ferrous Sulfate [facility] 08-24-2023 Miscellaneous Notes [facility] requesting refill of Klor Con documented in this encounter [facility] 08-24-2023 Telephone encounter Note [facility] requesting refill of Klor Con [facility] 08-17-2023 Miscellaneous Notes Patient via MyChart requesting refill of Diclofenac Gel, Lidociane Patches and Meclizine to [facility] documented in this encounter [facility] 08-17-2023 Telephone encounter Note Patient via MyChart requesting refill of Diclofenac Gel, Lidociane Patches and Meclizine to [facility] 07-16-2023 Miscellaneous Notes Patient via MyChart requesting refill of Carvedilol and Ondansetron to [facility] documented in this encounter [facility] 07-16-2023 Telephone encounter Note Patient via MyChart requesting refill of Carvedilol and Ondansetron to [facility] 06-15-2023 Miscellaneous Notes [facility] refill of Atorvastatin and Pantoprazole documented in this encounter [facility] 06-15-2023 Telephone encounter Note [facility] refill of Atorvastatin and Pantoprazole [facility] 05-07-2023 Miscellaneous Notes Outside labs are good except for glucose at 203- please f/u Tondra regarding sugar Patient notified of results and instructions. documented in this encounter [facility] 05-07-2023 Telephone encounter Note Outside labs are good except for glucose at 203- please f/u Tondra regarding sugar [facility] 05-07-2023 Telephone encounter Note Patient notified of results and instructions. [facility] 04-27-2023 Miscellaneous Notes Needs new Rx for Amlodipine 5mg documented in this encounter [facility] 04-27-2023 Telephone encounter Note Needs new Rx for Amlodipine 5mg [facility] 04-27-2023 Miscellaneous Notes Anneliese's BP is low at night, 98/60 range, do you want to make any changes? We can decrease the norvasc to 5mg- do we need a new rx? Patient notified of message and verbalizes understanding documented in this encounter [facility] 04-27-2023 Telephone encounter Note Anneliese's BP is low at night, 98/60 range, do you want to make any changes? [facility] 04-27-2023 Telephone encounter Note We can decrease the norvasc to 5mg- do we need a new rx? [facility] 04-27-2023 Telephone encounter Note Patient notified of message and verbalizes understanding [facility] 04-16-2023 History of Present illness Narrative Images from the original note were not included. [address] [place] [facility] [id number] SUBJECTIVE: Patient ID: Nichole Sandhu is a [...] 300mg bid x10d documented in this encounter [facility] 04-02-2023 History of Present illness Narrative Images from the original note were not included. [address] [place] [facility] [address] SUBJECTIVE: Patient ID: Nichole Sandhu is [...] in 3 weeks [facility] 03-26-2023 Miscellaneous Notes [facility] requesting refill of Colace [facility] 03-26-2023 Telephone encounter Note [facility] refill of Colace [facility] 03-23-2023 Evaluation note Encounter Date Diagnosis Assessment Notes Mar, Secondary diabetes (ICD-10 - E13.9) [employer] Other 01-29-2024 Evaluation note* Encounter Date Diagnosis [...] or diabetes medication issues. 6. Prescriptions: [facility]-Toujeo and Humalog sent 03/12/23; DME: [facility]-Dex[facility] [...] to make it easier material was published [employer] Other [id number] Miscellaneous Notes* Telephone Encounter - Yohana Keller LPN - 02/15/2023 9:52 AM EST Patient via SafeTool requesting refill of Lidocaine to [place] [facility] documented in this encounterCleveland Clinic Mary[facility] HospitalImaginova [id number] Telephone encounter Note* Telephone Encounter - Yohana Keller LPN - 02/15/2023 9:52 AM EST Patient via IPLockst requesting refill of Lidocaine to [facility] [employer] [id number] Miscellaneous Notes* Telephone Encounter - Yohana Keller LPN - 02/15/2023 9:51 AM EST Patient via MyChart requesting refill of Meclizine to [facility] documented in this encounterWhite River Junction Va Medical CenterPanasas01-04-2024 Telephone encounter Note* Telephone Encounter - Yohana Keller LPN - 02/15/2023 9:51 AM EST Patient via Kwanjihart requesting refill of Meclizine to [facility] Evaluation note* Encounter Date Diagnosis Assessment Notes Treatment Notes Treatment Clinical Notes Dec, Secondary diabetes (ICD-10 - E13.9) Dec, Type 2 diabetes mellitus (ICD-10 - E11.9) [employer] Other 10-16-2023 Evaluation note* Encounter Date Diagnosis [...] Nov, Other 09/03 gfr >60 ; ma [employer] Other 07-17-2023 Evaluation note* Encounter Date Diagnosis [...] hyperglycemia, or diabetes medication issues. 6. Prescriptions: TATY HIDALGO; None at this time. 7. Prescriptions will [...] the nutrition facts label material was published [employer] Other 04-12-2023 Evaluation note* Encounter Date Diagnosis [...] Prescriptions: Refill request for Humalog sent to [facility] in [place] 05/24/22 7. Prescriptions will not be filled [...] the nutrition facts label material was published [employer] Other 03-15-2023 Evaluation note* Encounter Date Diagnosis Assessment Notes Treatment Notes Treatment Clinical Notes Apr, Secondary diabetes (ICD-10 - E13.9) 1. Uncontrolled, secondary diabetes with A1c of 8.1% improved from 02/20/22 a1c was 10%. 2. Blood glucose levels improving, remain above target. dexRuth Kunstadter – [employer] g6 cgm download 04/13/22-04/26/22: Avg glucose 216. [...] antihypertensive- f/u with pcp for further recommendation. 15 Mar, 2023 Hyperlipidemia (ICD-10 - E78.5) 01/03 ldl 62 at target-on statin Apr, BMI 33.0-33.9,adult (ICD-10 - Z68.33) [employer] Other 01-09-2023 Evaluation note* Encounter Date Diagnosis [...] statin Feb, BMI 32.0-32.9,adult (ICD-10 - Z68.32) [employer] Other 12-05-2022 Evaluation note* Encounter Date Diagnosis [...] pt requests Dexcom prescription be sent to [facility]. All questions and concerns addressed. Encouraged to follow up for next appointment. 45 minutes was spent on education by Rajni GONZALES, RN. Reviewed cgm download 01/04/22- 2: Avg glucose 252. >250-48.7%, >180-88.6%, 70-180-11.4%, <70-0%, <54-0%. CV 22.8%. SD 58. See above recommendations. [employer] APARTMENT MAINTENANCE MANAGER, LIVING SPECIALIST-C, BC-ADM [employer] Other 12-02-2022 NoteHNO ID: [id number] Author: Pk Grady MD Service: ? Author [...] time. Continue to follow up with her personal injury specialist. - Follow up with me MARICARMEN CC: Diabetes INTERVAL HPI: Had to go [...] which included preparing to see the patient, [id number] patient care, completing clinical documentation, obtaining and/or reviewing separately obtained history, performing a medically appropriate examination, counseling and educating the patient/family/caregiver, ordering medications, tests, or procedures, and communicating results to the patient/family/caregiver. 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 No concerns at this time regarding the remainder of her pancreas. No further surgery indicated at this time. Continue to follow up with her personal injury specialist. - Follow up with me HERNADEZ CC: Diabetes INTERVAL HPI: Had to go [...] which included preparing to see the patient, [id number] patient care, completing clinical documentation, obtaining and/or reviewing separately obtained history, performing a medically appropriate examination, counseling and educating the pat ient/family/caregiver, ordering medications, tests, or procedures, and communicating results to thepatient/family/caregiver. Anton Grady MD [facility] surgery Pager: [phone] documented in [facility] encounterGenesis [facility]11-[facility] Evaluation note* Encounter Date Diagnosis Assessment [...] issues. 6. Prescriptions: Sent toujoe/humalog/pen needles to [facility]3]. Sent dexcom g6 cgm transmitter/cgm to [facility] [...] - E16.2) Pt would greatly benefit from [facility] personal use of CGM device such as [...] how to apply the sensor using a [employer] device and handouts. She successfully applied the sensor to the back of her left arm and inserted the transmitter. The sensor successfully was linked with the phone. Her Clarity account was linked with the office account using a sharing code. 45 minutes were spent educating the patient by Aramis Palm RN, [facility]. [facility] [employer] Other 10-16-2018 History of Past illness Narrative* Problem Noted Date Resolved Date Fever 11/27/2017 08/25/2020 Obesity, Class II, BMI 35-39.9 11/15/2017 0 09/24/2019 Delirium 11/04/2017 08/25/2020 Last Assessment & Plan: PLAN: See plan for encephalopathy documented as of this encounter (statuses as of 01/13/2022) [facility] noteNo InformationNortGuthrie [facility] [employer] Other Evaluation note* Diagnosis Secondary diabetes mellitus (HCC)- Primary Secondary diabetes mellitus without mention of complication, not stated as uncontrolled, or unspecified documented in this encounter [facility] noteNo assessment information availableUniversity Hospitals Port[facility] Work Phone: Evaluation note* Diagnosis Mixed hyperlipidemia [facility] encounter [facility]* Diagnosis Secondary diabetes mellitus ([facility]-HCC)- Primary Secondary diabetes mellitus without mention of complication, not stated as uncontrolled, or unspecified Necrotizing pancreatitis Acute pancreatitis Mixed hyperlipidemia Essential hypertension, benign documented in this encounter [facility]* Diagnosis Other acute sinusitis, recurrence not specified- Primary documented [facility] encounter [facility]* Diagnosis Onset Date Resolution Status Admit Date BMI 36.0-36.9,adult acute April 14, 2024 2:51pm Dietary counseling and surveillance acute April 14, 2024 2:51pm H/O resection of pancreas acute April 14, 2024 2:51pm Hyperlipidemia acute April 14, 2024 2:51pm Hypertension acute April 14, 2 025 2:51pm Insulin pump titration acute [facility] 2024 2:51pm Localized infection of skin acute April 14, 2024 2:51pm Type 2 diabetes mellitus acute April 14, 2024 2:51pm [facility] Work Phone: History general Narrative - Reported* Type Description Date Medical History Secondary Diabetes Mellitus Medical History Necrotizing pancreatitis Medical History Pancreas tail injury Surgical History section Surgical History Hysterectomy Surgical History Kidney stone surgery Surgical History Pancreas resection Surgical History Pancreas-partial removal Surgical History Splenectomy Hospitalization History see above [employer] Other InstructionsNot on filedocumented in this encounter [facility] SystemInstructionsNot on filedocumented in this encounter [facility] SystemInstructionsNot on filedocumented in this encounter [facility] SystemInstructionsNot on filedocumented in this encounter [facility] SystemInstructionsNot on filedocumented in this encounter [facility] SystemInstructions* Attachments The following attachments cannot be sent through Care Everywhere. * Diabetes and diet (Slovak) documented in this encounterProMedica Health SystemInstructionsNot on file documented in this encounterProNorth [facility] Health SystemInstructions* Attachments The following attachments cannot be sent through Care Everywhere. * Sinusitis in adults (Slovak) documented in this encounterProMedica Health SystemInstructionsNot on file documented in this encounterProMedica Health SystemInstructionsNot on file documented in this encounterProNorth [facility] Health SystemInstructionsNot on file documented in this encounterProWilson Memorial Hospital SystemInstructionsNot on file documented in this encounterProWilson Memorial Hospital SystemInstructionsNot on file documented in this encounterProWilson Memorial Hospital SystemReason for visit Narrative Referral Dr. 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 MANAGER, LIVING SPECIALIST-C, BC-ADM [employer] Other Summary Purpose Family History Relationship Condition Age at Onset Recorded Date/T daron brother Hypertension Unknown daughter Hypertension Unknown father Hypertension Unknown Unknown Diabetes mellitus Unknown History of stroke Unknown Not Specified Hypertension Unknown sister Diabetes mellitus Unknown Hypertension Unknown Relationship Condition Age at Onset Recorded Date/T daron brother Hypertension Unknown daughter Hypertension Unknown father Hypertension Unknown Unknown Diabetes mellitus Unknown History of stroke Unknown mother Hypertension Unknown sister Diabetes mellitus Unknown Hypertension Unknown Advance Directives Documents on File Type Date Recorded Patient Tape Duplicator Expl anation Advance Directive(s) 11/09/2017 4:21 PM SI GNED Advance Directive Response Recorded Date/ Time Advance Directives No December 1:07pm Chief Complaint and Reason for Visit Chief Complaint Dm 3 Month F/U DM Chief Complaint Admit Date 3 month/ DEXCOM April 14, 2024 2:51 pm Reason for Visit Admit Date BMI 36.0-36.9,adult April 14, 2024 2:51 pm Dietary counseling and surveillance Nic 2024 2:51pm H/O resection of pancreas April 14 2:51pm Hyperlipidemia April 14, 2024 2:51 pm Hypertension April 14, 2024 2:51 pm Insulin pump titration April 14, 2024 2 :51pm Localized infection of skin April 14, 2 025 2:51pm Type 2 diabetes mellitus April 14, 2024 2:51pm Additional Source Comments INFORMATION SOURCE (unrecogn ized section and content) DATE CREATED AUTHOR 12/08/2017 [facility] DATE CREATED AUTHOR AUTHOR'S ORGANIZ ATION 11/24/2018 [facility] DATE CREATED AUTHOR AUTHOR'S ORGANIZ ATION 09/02/2020 [facility] DATE CREATED AUTHOR AUTHOR'S ORGANIZ ATION 01/13/2022 [facility] DATE CREATED AUTHOR AUTHOR'S ORGANIZ ATION 05/07/2022 [facility] DATE CREATED AUTHOR AUTHOR'S ORGANIZ ATION 04/03/2023 [facility] DATE CREATED AUTHOR AUTHOR'S ORGANIZ ATION 10/17/2023 [facility] REASON FOR VISIT (unrecogniz ed section and content) Reason Comments Diabetes Reason Comments Med Refill Reason Onset Date Comments Med Refill 02/15/2023 Reason Onset Date Comments Med Refill 07/16/2023 Reason Comments Routine Check up Reason Onset Date Comments Med Refill 08/17/2023 Reason Onset Date Comments Med Refill 04/27/2023 Source Comments (unrecognize d section and content) In the event this informatio n is protected by the Federal Confidentiality of Alcohol and Drug Abuse Patient Records regulations: The Federal rules restrict any use of the information to criminally investigate or prosecute any alcohol or drug abuse patient.[facility] Care Teams (unrecognized sec tion and content) Customer Contact Sales Associate Relationship Specialty Start Date End Date Samia Payton [address] [place] [address] PCP - General Family Medicine 11/23/17 Team Status: Active Member Role Status Dates Samia Landeros MD Primary Care Provider Active Team Status: Inactive Member Role Status Dates Boy Phillips APRN Attending Provider Active Start: March 12, 2023 End: March 12, 2023 Team Status: Inactive Member Role Status Dates Samia Landeros MD Primary Care Provide r, Attending Provider Active Start: March 12, 2023 End: March 12, 2023 Customer Contact Sales Associate Relationship Specialty Start Date End Date Samia Landeros MD [address] [place] [address] PCP - General Family Medicine 11/22/17 Customer Contact Sales Associate Relationship Specialty Start Date End Date Samia Landeros MD [address] [place] [address] PCP - [facility] 11/22/17 Customer Contact Sales Associate Relationship Specialty Start Date End Date Samia Landeros MD [address] [place] [address] PCP - [facility] Medicine 11/22/17 Customer Contact Sales Associate Relationship Specialty Start Date End Date Samia Landeros MD [address] [place] [address] PCP - [facility] Medicine 11/22/17 Customer Contact Sales Associate Relationship Specialty Start Date End Date Samia Landeros MD [address] [place] [address] PCP - [facility] Medicine 11/22/17 Customer Contact Sales Associate Relationship Specialty Start Date End Date Samia Landeros MD [address] [place] [address] PCP - [facility] Medicine 11/22/17 Customer Contact Sales Associate Relationship Specialty Start Date End Date Samia Landeros MD [address] [place] [address] PCP - General Family Medicine 11/22/17 Customer Contact Sales Associate Relationship Specialty Start Date End Date Samia Landeros MD [address] [place] [address] PCP - [facility] Medicine 11/22/17 Customer Contact Sales Associate Relationship Specialty Start Date End Date Samia Landeros MD [address] [place] [address] PCP - General Family Medicine 11/22/17 Customer Contact Sales Associate Relationship Specialty Start Date End Date Samia Landeros MD [address] [place] [address] PCP - [facility] 11/22/17 Team Status: Inactive Member Role Status Dates Samia Landeros MD Primary Care Provider Active Start: April 14, 2024 End: April 14, 2024 Boy Phillips APRN Attending Provider Active Start: April 14, 2024 End: April 14, 2024 Customer Contact Sales Associate Relationship Specialty Start Date End Date Samia Landeros MD [address] [place] [address] PCP - [facility] 11/22/17 Customer Contact Sales Associate Relationship Specialty Start Date End Date Samia Landeros MD [address] Provider retired 05/13/24 [place] [address] PCP - [facility] 11/22/17 Goals (unrecognized section and content) [...] BE BASED ON THE PRIMARY CLINICAL RECORDS. [employer] provides no warranty or guarantee of the accuracy or completeness of information in this document.
[2024-07-30 10:11] LABS: Creatinine Urine Random 178.88 mg/dL (20.00-300.00); Microalbum Creatinine Ratio Ur 7.8 mg/g (0.0-29.9); Microalbumin Urine Random 1.4 mg/dL (<=30.0)
[2024-07-30 10:31] LABS: Alanine Aminotransferase 46 U/L (14-59); Albumin Globulin Ratio 0.9; Albumin Level 3.6 g/dL (3.4-5.0); Alkaline Phosphatase 72 U/L (46-116); Anion Gap 12.5; Aspartate Amino Transferase 29 U/L (15-37); BUN Creatinine Ratio 20.6; Bilirubin Total 0.4 mg/dL (0.2-1.0); Calcium 9.1 mg/dL (8.5-10.1); Carbon Dioxide 31.2 mmol/L (21.0-32.0); Chloride 103 mmol/L (98-107); Chol HDL Ratio 3.3; Cholesterol 115 mg/dL (<=200); Estimated GFR (African America >60 (>=60 mL/min/1.73m^2); Estimated GFR (Non-African Ame >60 (>=60 mL/min/1.73m^2); Glucose 103 mg/dL (74-106); HDL Cholesterol 35 mg/dL (40-60); Potassium 3.7 mmol/L (3.5-5.1); Sodium 143 mmol/L (136-145); Total Protein 7.6 g/dL (6.4-8.2); Triglycerides 167 mg/dL (<=150); VLDL CHOLESTEROL 33.4 mg/dL
== END 2024-07-30 09:35 | disposition home or self-care (01) ==
LOC: LAB 09:38
PROVIDERS: PCP Family Medicine
DX: E78.5 Hyperlipidemia, unspecified (principal); E11.65 Type 2 diabetes mellitus with hyperglycemia; Z79.4 Long term (current) use of insulin
CPT/HCPCS: 36415; 80053; 80061; 82043; 82570

== ENCOUNTER 2024-10-31 06:50 | Outpatient (OUT) | payer MEDICARE, SELFPAY ==
--- OUTSIDE RECORDS SUMMARY | 2024-10-20 15:00 | XMS_ITS | Encounter Summary ---
Author Organization [facility] ponUp s tem Address [id number] [address] [place] [address] Care Team Providers Care Clinical Assessment Manager Name Role Phone Drake Morrissey MD Primary Care Provider [phone] Reason for Visit * Reason Comments Annual Exam Medicare wellness Encounter Details Date Type Department Care Team (Late st Contact Info) Description 10/20/2024 3:00 PM EDT [facility] [address] [place] [phone] Drake Morrissey MD [address] [place] [address] Necrotizing pancreatitis (Primary Dx); Secondary diabetes mellitus (CMS-HCC); Mixed hyperlipidemia; Essential hypertension, benign; Encounter for screening mammogram for malignant neoplasm [...] 03/23/2020 How often do you attend chur or denominational services? Never 03/23/2020 Do you belong to any clubs o r organizations such as sikhism groups, unions, fraternal or athletic groups, or [...] food, housing, medical care, and heating? Not very hard 10/18/2024 PHQ-2 Answer Date Recorded Total Score 0 10/18/2024 [facility] - [...] medical appointments or from getting medications? No 07/2024 In the past 12 months, has l ack of transportation kept you from meetings, work, or from getting things needed for daily living? No 10/18/2024 Housing Instability Answer Date Recorde d Are you worried or concerned that in the next two months you may not have stable housing that you own, rent or stay in as a part of a household? No 10/18/2024 Childcare Answer Date Recorded Do problems getting [...] got money to buy more. Never True 10/20/2024 Within the past 12 months th e food we bought just didn't last and we didn't have money to get more. Never True 10/20/2024 Purpose - Life Answer Date Recorded I [...] on file documented as of this encounter Last Filed Vital Signs Vital Sign Reading Time Taken Comments Blood Pressure 148/82 10/20/2024 3:06 PM EDT Pulse 88 10/20/2024 3:06 PM EDT Temperature - - Respiratory Rate 18 10/20/2024 3:06 PM EDT Oxygen Saturation 96% 10/20/2024 3:06 PM EDT Inhaled Oxygen Concentration - - Weight 91.6 kg (202 lb) 10/20/2024 3:06 PM EDT Height 159.4 cm (5' 2.75 ) 10/20/2024 3:06 PM ED T Body Mass Index 36.07 10/20/2024 3:06 PM EDT documented in this encounter Progress Notes * Drake Morrissey MD - 10/20/2024 3:00 PM EDT Images from the original note were not included. [address] [facility] [phone] Subjective: Nichole Warren is a 69 y.o. female who presents for a Medicare Annual Wellness exam. The following portions of the patient's history were reviewed and updated as appropriate: Health Risk Assessment, allergies, past medical history, past surgical history, social history, family history, and immunization history Accompanied by: self History Provided By: self Language and Other Communication Barriers: Primary Language Spoken: Chinese Highest Level of Education Completed: high school diploma/GED Are You Happy With How Well You Read? yes Diet and Physical Activity: Current Prescribed Diet: Low Carb Diet How would you describe the condition of your mouth and teeth, including false teeth and dentures? Good Exercise Frequency: Daily Types of Exercise: Walking Health Risk Assessment: Cognitive Screening Do you have trouble remembering or recalling facts or events?: (Patient-Rptd) No Do family members or caregivers report that you have difficulty remembering things?: (Patient-Rptd)No Depression Screening Little interest or pleasure in doing things: (Patient-Rptd) Not at all Feeling down, depressed, or hopeless: (Patient-Rptd) Not at all Trouble falling or staying asleep, or sleeping too much: (Patient-Rptd) Not at all Feeling tired or having little energy: (Patient-Rptd) Not at all Poor appetite or overeating: (Patient-Rptd) Not at all Feeling bad about yourself - or that you are a failure or have let yourself or your family down: (Patient-Rptd) Not at all Trouble concentrating on things, such as reading the newspaper or watching television: (Patient-Rptd) Not at all Moving or speaking so slowly that other people could have noticed. Or the opposite - being so fidgety or restless that you have been moving around a lot more than usual: (Patient-Rptd) Not at all Thoughts that you would be better off , or of hurting yourself in some way: (Patient-Rptd) Not at all End of Life Planning Do you have a living will?: (!) (Patient-Rptd) No Do you have a durable power of senior attorney?: (Patient-Rptd) Yes Hearing Assessment Do you strain or struggle to hear/understand conversations?: (Patient-Rptd) No Do you have trouble hearing the television or radio when others do not?: (Patient-Rptd) No Does your family ever voice concerns about your hearing?: (Patient-Rptd) No Do you wear hearing aid/s?: (Patient-Rptd) No Lifestyle Assessment Do you smoke or use smokeless tobacco?: (Patient-Rptd) No If you smoke or use smokeless tobacco, are you ready to quit?: (Patient-Rptd) NA Are you exposed to secondhand smoke?: (Patient-Rptd) No On average, how many drinks of alcohol do you consume in a week?: (Patient-Rptd) None Do you exercise for 30 or more minutes on average at least 3 days a week?: (Patient-Rptd) Sometimes Do you have any tooth, denture, or oral problems?: (!) (Patient-Rptd) Yes Do you snore or has anyone told you that you snore?: (!) (Patient-Rptd) Yes Do you try to eat a balanced diet?: (Patient-Rptd) Yes Do you experience leakage of urine, also known as urinary incontinence?: (Patient-Rptd) Never Do you have difficulty bathing?: (Patient-Rptd) No Do you have difficulty dressing?: (Patient-Rptd) No Do you have difficulty grooming?: (Patient-Rptd) No Do you have difficulty eating?: (Patient-Rptd) No Do you have difficulty getting out of a chair?: (Patient-Rptd) No Do you have difficulty walking?: (Patient-Rptd) No Do you have difficulty using the toilet?: (Patient-Rptd) No Do you have difficulty doing laundry?: (Patient-Rptd) No Do you have difficulty with housekeeping?: (Patient-Rptd) No Do you have difficulty preparing a meal?: (Patient-Rptd) No Do you have difficulty shopping?: (Patient-Rptd) No Do you have difficulty using transportation?: (Patient-Rptd) No Do you have difficulty paying bills?: (Patient-Rptd) No Do you have difficulty managing finances?: (Patient-Rptd) No Personal Health During the past 4 weeks, how would you rate your overall health?: (Patient-Rptd) Good Do you understand how to take all of your medications?: (Patient-Rptd) Yes How confident are you that you can control and manage most of your health problems?: (Patient-Rptd)Very confident In the past 12 months, how many times have you been hospitalized?: (Patient- Rptd) None Safety Assessment Do you have throw rugs on the floor?: (!) (Patient-Rptd) Yes Do you feel safe at your home?: (Patient-Rptd) Yes Do you feel unsteady when walking?: (Patient-Rptd) No Are you having difficulty with driving?: (Patient-Rptd) No Do you have trouble seeing?: (Patient-Rptd) No Do you use a bath bar/seat?: (Patient-Rptd) No Do you use a raised toilet seat?: (Patient-Rptd) No Do you use a cane?: (Patient-Rptd) No Do you use a walker?: (Patient-Rptd) No Do you use a wheelchair?: (Patient-Rptd) No Vitals: Vitals: 10/20/24 1506 BP: 148/82 Pulse: 88 Resp: 18 SpO2: 96% Body mass index is 36.07 kg/m??. 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 difficile colitis Diabetes mellitus ([facility]) Hypertension Necrotizing pancreatitis Pancreatitis Past Surgical History: Procedure Laterality Date SECTION HYSTERECTOMY KIDNEY STONE SURGERY PANCREAS SURGERY resection of pancreas PANCREAS SURGERY partial removal SPLENECTOMY Family History Problem Relation Age of Onset Diabetes Father Social History Tobacco Use Smoking status: Never Smokeless tobacco: Never Substance Use Topics Alcohol use: Not Currently Comment: occasional Allergies: Allergies Allergen Reactions Codeine Other (See Comments) and Swelling Swelling of the tongue Swelling of tongue Lorazepam Rash Becomes combative/ delirious Current Outpatient Medications Medication Sig Dispense Refill atorvastatin (LIPITOR) 10 mg tablet TAKE 1 TABLET (10 MG TOTAL) BY MOUTH IN THE MORNING 90 tablet 3 BD ULTRA-FINE NAREN PEN NEEDLE 32 gauge x 5/32 needle in the morning and at noon and in the eveningand before bedtime. blood sugar diagnostic (TRUE METRIX GLUCOSE TEST STRIP) strip TEST TWICE A DAY 50 strip 7 carvediloL (COREG) 25 mg tablet TAKE 1 TABLET (25 MG TOTAL) BY MOUTH IN THE MORNING AND BEFORE BEDTIME 180 tablet 3 cholecalciferol, vitamin D3, (VITAMIN D3) 5,000 units capsule 1 capsule (5,000 Units total). DEXCOM G6 PROFESSIONAL SERVICES CONSULTANT misc DEXCOM G6 SENSOR device DEXCOM G6 TRANSMITTER device diclofenac sodium (VOLTAREN) 1 % gel Apply to affected area tid 100 g 7 HumaLOG U-100 Insulin 100 unit/mL injection lancets (ULTRA THIN LANCETS) 30 gauge misc TEST TWICE DAILY *K85.91* 100 each 5 lancing device misc meclizine (ANTIVERT) 25 mg tablet Take 1 tablet (25 mg total) by mouth 3 (three) times a day as needed for dizziness. 90 tablet 1 multivitamin (THERAGRAN) tablet Take 1 tablet by mouth in the morning. pantoprazole (PROTONIX) 40 mg EC tablet TAKE 1 TABLET (40 MG TOTAL) BY MOUTH IN THE MORNING 90 tablet 3 psyllium husk (METAMUCIL) 0.4 gram capsule Take by mouth in the morning. T:SLIM X2 CONTROL-IQ misc TOUJEO SOLOSTAR U-300 INSULIN 300 unit/mL (1.5 mL) insulin pen ZENPEP 40,000-126,000- 168,000 unit capsule,delayed release(DR/EC) TAKE 2 CAPSULES BY MOUTH WITH MEALS AND 1 CAPSULE WITH EACH SNACK 270 capsule 5 ACCU-CHEK GUIDE L1-L2 CTRL MISTY solution amLODIPine (NORVASC) 5 mg tablet Take 1 tablet (5 mg total) by mouth in the morning. 90 tablet 2 docusate sodium (COLACE) 100 mg capsule docusate sodium (STOOL SOFTENER) 100 mg capsule Take 1 capsule (100 mg total) by mouth in the morning and 1 capsule (100 mg total) before bedtime. 180 capsule 3 ferrous sulfate 325 (65 FE) MG tablet Take 1 tablet (325 mg total) by mouth in the morning. 90 tablet 3 HumaLOG KwikPen Insulin 100 unit/mL insulin pen 1:25 CORRECTIVE SCALE BEFORE MEAL 3TIMES DAILY SUBCUTANEOUSLY DIRECTED*EXPECT UP TO 20UNITS DAILY (Patient not taking: Reported on 10/20/2024) hydroCHLOROthiazide (HYDRODIURIL) 25 mg tablet Take 1 tablet (25 mg total) by mouth daily. 90 tablet 2 ondansetron (ZOFRAN) 4 mg tablet Take 1 tablet (4 mg total) by mouth every 8 (eight) hours as needed for nausea or vomiting. 30 tablet 5 potassium chloride (KLOR-CON M10) 10 MEQ CR tablet Take 1 tablet (10 mEq total) by mouth in the morning and 1 tablet (10 mEq total) before bedtime. TAKE 1 TABLET (10 MEQ TOTAL) BY MOUTH IN THE MORNING. 180 tablet 3 tiZANidine (ZANAFLEX) 4 mg tablet Take 1 tablet (4 mg total) by mouth every 8 (eight) hours as needed for muscle spasms. 270 tablet 3 No current facility-administered medications for this visit. Immunization History Administered Date(s) Administered HiB 07/16/2018 Influenza, Injectable, Mdck, Preservative Free, Quad 11/03/2018 Influenza, Injectable, Quadrivalent 12/04/2017 Influenza, Injectable, quadrivalent (PF) 11/03/2018, 12/14/2019 Meningococcal Conjugate 07/16/2018 Meningococcal MCV4P 10/01/2018 Pneumococcal Conjugate 20-valent 01/18/2023 Pneumococcal Polysaccharide 07/16/2018, 10/01/2018 Tdap 08/19/2016 Medication Adherence: Original 4-item [place] Scale Do you ever forget to take your medicine? no Are you careless at times about taking your medicine? no When you feel better, do you sometimes stop taking your medicine? no Sometimes if you feel worse when you take your medicine, do you stop taking it? no Score: 4 Scoring: high-low; yes=0 no=1. Range 0-4. By reversing the wording of four questions about the way patients might experience drug omissions, the sum of yes answers would provide a composite measureof non-adherence. Higher scores indicate higher adherence. Cognitive Screening: Clock Drawing Test: Normal Mini-Co/3 Patient Concerns for Cognitive Function: no Family Concerns for Cognitive Function: no Sensory Screening: Hearing right ear: normal Hearing left ear: normal Can you hear what a person says without seeing his/her face, if spoken in a normal voice from across the room? Yes Can you hear what a person says without seeing his/her face, if that person whispers to you from across a room? Yes Do you use a hearing aid: No Review of Systems: Review of Systems Objective: Physical Exam Orders Only on 04/16/2024 Component Date Value Ref Range Status External Hemoglobin A1C 04/16/2024 7.1 % Final Advanced Directives: Living Will: No DPA for Health Care: No Discussion and Summary: Risk findings: none Personalized Prevention Plan Services: Specialty Evaluation Advised:N/A Preventative Programs Recommended: N/A Prevention Counseling and Education Materials:N/A Diseases: N/A Immunizations: N/A Nutrition: N/A Activity/Exercise/Safety/Misc: N/A The above recommendations were discussed with the patient. Medicare Available Services: Copy to patient and copy in patient's medical record. Assessment/Plan: Nichole Warren has been seen for a well visit today. Preventative recommendations were reviewed. Any chronic conditions that have been addressed include those listed below. Anneliese was seen today for annual exam. Diagnoses and all orders for this visit: Necrotizing pancreatitis - ondansetron (ZOFRAN) 4 mg tablet; Take 1 tablet (4 mg total) by mouth every 8 (eight) hours as needed for nausea or vomiting. Secondary diabetes mellitus ([facility]) - Hemoglobin A1c; Future - Microalbumin - Albumin: Creatinine Urine Ratio; Future Mixed hyperlipidemia - Lipid profile; Future Essential hypertension, benign - Comprehensive metabolic panel; Future - Thyroid profile includes TSH FT4; Future - CBC auto differential; Future - amLODIPine (NORVASC) 5 mg tablet; Take 1 tablet (5 mg total) by mouth in the morning. - hydroCHLOROthiazide (HYDRODIURIL) 25 mg tablet; Take 1 tablet (25 mg total) by mouth daily. - potassium chloride (KLOR-CON M10) 10 MEQ CR tablet; Take 1 tablet (10 mEq total) by mouth in the morning and 1 tablet (10 mEq total) before bedtime. TAKE 1 TABLET (10 MEQ TOTAL) BY MOUTH IN THE MORNING. Encounter for screening mammogram for malignant neoplasm of breast - Mammography screening bilateral with CAD; Future Other orders - docusate sodium (STOOL SOFTENER) 100 mg capsule; Take 1 capsule (100 mg total) by mouth in the morning and 1 capsule (100 mg total) before bedtime. - ferrous sulfate 325 (65 FE) MG tablet; Take 1 tablet (325 mg total) by mouth in the morning. - tiZANidine (ZANAFLEX) 4 mg tablet; Take 1 tablet (4 mg total) by mouth every 8 (eight) hours as needed for muscle spasms. Patient noted to have elevated BMI and the following intervention(s) were applied: encouragement toexercise. Follow Up: 6 mo documented in this encounter Plan of Treatment Upcoming Encounters Date Type Department Care Team (Late st Contact Info) Description 04/30/2025 9:00 AM EDT Office Visit [facility] [address] [place] [phone] Drake Morrissey MD [address] [place] [phone] 10/21/2025 3:30 PM EDT Office Visit [facility] [address] [place] [phone] Drake Morrissey MD [address] [place] [address] [phone] Scheduled Orders Name Type Priority Associated Diagnoses Orde r Schedule Comprehensive metabolic panel Lab Routine Essential hypertension, benign 1 Occurrences starting 10/20/2024 until 10/20/2025 Hemoglobin A1c Lab Routine Secondary diabetes mellitus ([facility]) 1 Occurrences starting 10/20/2024 until 10/20/2025 Lipid profile Lab Routine Mixed hyperlipidemia 1 Occurrences starting 10/20/2024 until 10/20/2025 Microalbumin - Albumin: Creatinine Urine Ratio Lab Routine Secondary diabetes mellitus (CMS-HCC) 1 Occurrences starting 10/20/2024 until 10/20/2025 Thyroid profile includes TSH FT4 Lab Routine Essential hypertension, benign 1 Occurrences starting 10/20/2024 until 10/20/2025 CBC auto differential Lab Routine Essential hypertension, benign 1 Occurrences starting 10/20/2024 until 10/20/2025 Mammography screening bilateral with CAD Imaging Routine Encounter for screening mammogram for malignant neoplasm of breast Expected: 10/20/2024, Expires: 10/20/2025 documented as of this encounter Visit Diagnoses Diagnosis Necrotizing pancreatitis- Primary Acute pancreatitis Secondary diabetes mellitus (CMS-HCC) Secondary diabetes mellitus without mention of complication, not stated as uncontrolled, or unspecified Mixed hyperlipidemia Essential hypertension, benign Encounter for screening mammogram for malignant neoplasm of breast documented in this encounter Additional Health Concerns Assessment Noted Time PHQ-9 Depression Total Score: 0 10/19/19 25 10:09 AM EDT A Body Mass Index follow-up plan has been documented for the patient 10/20/2024 3:34 PM EDT documented as of this encounter Care Teams Clinical Assessment Manager Relationship Specialty Start Date End Date Drake Morrissey MD [address] [place] [address] PCP - General Internal Medicine 09/17/24 documented as of this encounter
--- OUTSIDE RECORDS SUMMARY | 2024-10-31 06:56 | XMS_ITS | Encounter Summary ---
Author Organization [email or web address] s tem Address [id number] [address] [place] [address] Care Team Providers Care Hospice Admitting Clerk Name Role Phone Drake Morrissey MD Primary Care Provider [phone] Reason for Visit * Reason Comments Med Refill Encounter Details Date Type Department Care Team (Late Contact Info) Description 07/26/2018 Refill [facility] [address] [place] [address] Ash Landeros MD [address] Provider retired 05/13/24 [place] [address] Social History Tobacco Use Types [...] Upcoming Encounters Date Type Department Care Team ([facility] Contact Info) Description 04/30/2025 9:00 AM EDT Office Visit [facility] [address] [place] [address] Drake Morrissey MD [address] [place] [address] [phone] 10/21/2025 3:30 PM EDT Office Visit [facility] [address] [place] [phone] Drake Morrissey MD [address] [place] [address] [phone] documented as of this encounter Visit Diagnoses Not on filedocumented in this encounter Additional Health Concerns Assessment Noted Time PHQ-9 Depression Total Score: 0 07/06/19 19 11:00 AM EDT documented as of this encounter Care Teams Hospice Admitting Clerk Relationship Specialty Start Date End Date Drake Morrissey MD [address] [place] [address] [phone] PCP - General Internal Medicine 09/17/24 documented as of this encounter
--- OUTSIDE RECORDS SUMMARY | 2024-10-31 06:56 | XMS_ITS | Encounter Summary ---
Author Organization [facility] Address [address] [place] [address] Care Team Providers Care Electrician Radio Name Role Phone Ash Rinaldi Primary Care Provider [phone] Source Comments In the event this information is protected by the Federal Confidentiality of Alcohol and Drug AbusePatient Records regulations: The Federal rules restrict any use of the information to criminally investigate or prosecute any alcohol or drug abuse patient.[facility] Encounter Details Date Type Department Care Team (Late st Contact Info) Description 07/26/2020 Get Medical Advice [facility] [address] [place] [address] [place] [address] RE: Upcoming Appointment Question Social History Tobacco [...] N ot on file 01/20/2020 Data from: https://www.neighborhoodatlas.medicine.[facility].edu/. Last address used for calculation Not [...] on filedocumented in this encounter Care Teams Electrician Radio Relationship Specialty Start Date End Date Ash Rinaldi: [phone] [address] [facility] [place] [address] PCP - General Family Medicine 11/23/17 documented as of this encounter
--- OUTSIDE RECORDS SUMMARY | 2024-10-31 06:56 | XMS_ITS | Encounter Summary ---
Author Organization [facility] Address [address] [place] [address] Care Team Providers Care Director Phone Name Role Phone Ash Rinaldi Primary Care Provider [phone] Source Comments In the event this information is protected by the Federal Confidentiality of Alcohol and Drug AbusePatient Records regulations: The Federal rules restrict any use of the information to criminally investigate or prosecute any alcohol or drug abuse patient.[facility] Encounter Details Date Type Department Care Team (Late st Contact Info) Description 10/23/2018 Patient Msg Medical Records [address] [place] [address] Provider, [facility] Prescribed Patient Education Video(s) Social [...] of Assessment Author No 08/05/2018 11:05 AM sAhli Mckeon RN documented as of this encounter [...] on filedocumented in this encounter Care Teams Director Phone Relationship Specialty Start Date End Date Ash Rinaldi [address] [place] [address] PCP - General Family Medicine 11/23/17 documented as of this encounter
--- OUTSIDE RECORDS SUMMARY | 2024-10-31 06:56 | XMS_ITS | Encounter Summary ---
Author Organization [facility] Address [address] [place] [address] Care Team Providers Care Outside Cutter Hand Name Role Phone Ash Rinaldi Primary Care Provider [phone] Source Comments In the event this information is protected by the Federal Confidentiality of Alcohol and Drug AbusePatient Records regulations: The Federal rules restrict any use of the information to criminally investigate or prosecute any alcohol or drug abuse patient.[facility] Encounter Details Date Type Department Care Team (Late st Contact Info) Description 02/09/2020 Get Medical Advice [facility] [place] [address] [phone] Jhon Acosta MD [address] [facility] [address] [place] [address] RE: Visit Follow Up Question [...] N ot on file 01/20/2020 Data from: https://www.neighborhoodatlas.medicine.[facility]/. Last address used for calculation Not on [...] on filedocumented in this encounter Care Teams Outside Cutter Hand Relationship Specialty Start Date End Date Ash Rinaldi [address] [place] [address] PCP - General Family Medicine 11/23/17 documented as of this encounter
--- OUTSIDE RECORDS SUMMARY | 2024-10-31 06:56 | XMS_ITS | Encounter Summary ---
Author Organization [facility] Address [address] [place] [address] Care Team Providers Care Child Development Teacher Name Role Phone Ash Rinaldi Primary Care Provider [phone] Source Comments In the event this information is protected by the Federal Confidentiality of Alcohol and Drug AbusePatient Records regulations: The Federal rules restrict any use of the information to criminally investigate or prosecute any alcohol or drug abuse patient.[facility] Encounter Details Date Type Department Care Team (Late st Contact Info) Description 06/20/2018 Patient Msg General Surgery [address] [place] [address] Linda Rizzo RN [address] [address] [employer] Social History Tobacco Use Types Packs/Day [...] on filedocumented in this encounter Care Teams Child Development Teacher Relationship Specialty Start Date End Date Ash Rinaldi: [phone] [address] [place] [address] PCP - General Family Medicine 11/23/17 documented as of this encounter
--- OUTSIDE RECORDS SUMMARY | 2024-10-31 06:56 | XMS_ITS | Encounter Summary ---
Author Organization [facility] Address [address] [place] [address] Care Team Providers Care Electrifier Operator Name Role Phone Ash Rinaldi Primary Care Provider [phone] [phone] Source Comments In the event this information is protected by the Federal Confidentiality of Alcohol and Drug AbusePatient Records regulations: The Federal rules restrict any use of the information to criminally investigate or prosecute any alcohol or drug abuse patient.[facility] Encounter Details Date Type Department Care Team (Late st Contact Info) Description 07/31/2018 [facility] M063 [address] [id number] Morris Grady MD [address] [place] [address] Social History Tobacco Use Types [...] on filedocumented in this encounter Care Teams Electrifier Operator Relationship Specialty Start Date End Date Ash Rinaldi: [phone] [address] [place] [address] PCP - General Family Medicine 11/23/17 documented as of this encounter
--- OUTSIDE RECORDS SUMMARY | 2024-10-31 06:56 | XMS_ITS | Encounter Summary ---
Author Organization [facility] Address [address] [place] [address] Care Team Providers Care Crnp Name Role Phone Ash Rinaldi Primary Care Provider [phone] Source Comments In the event this information is protected by the Federal Confidentiality of Alcohol and Drug AbusePatient Records regulations: The Federal rules restrict any use of the information to criminally investigate or prosecute any alcohol or drug abuse patient.[facility] Encounter Details Date Type Department Care Team (Late st Contact Info) Description 05/15/2018 Patient Msg Medical Records [address] [place] [address] Provider, Ccf Prescribed Patient Education Video(s) Social [...] on filedocumented in this encounter Care Teams Crnp Relationship Specialty Start Date End Date Ash Rinaldi [address] [place] [address] PCP - General Family Medicine 11/23/17 documented as of this encounter
--- OUTSIDE RECORDS SUMMARY | 2024-10-31 06:56 | XMS_ITS | Encounter Summary ---
Author Organization [facility] Address [address] [place] [address] Care Team Providers Care Environmental Research Project Manager Name Role Phone Ash Rinaldi Primary Care Provider [phone] Source Comments In the event this information is protected by the Federal Confidentiality of Alcohol and Drug AbusePatient Records regulations: The Federal rules restrict any use of the information to criminally investigate or prosecute any alcohol or drug abuse patient.[facility] Encounter Details Date Type Department Care Team (Late st Contact Info) Description 10/23/2018 Patient Msg Medical Records [address] [place] [address] Provider, Ccf Prescribed Patient Education Video(s) Social [...] on filedocumented in this encounter Care Teams Environmental Research Project Manager Relationship Specialty Start Date End Date Ash Rinaldi [address] [place] [address] PCP - General Family Medicine 11/23/17 documented as of this encounter
--- OUTSIDE RECORDS SUMMARY | 2024-10-31 06:56 | XMS_ITS | Encounter Summary ---
Author Organization [facility] [place] [facility] Address [address] [place] [address] Care Team Providers Care Hot End Operator Name Role Phone Ash Rinaldi Primary Care Provider [phone] Source Comments In the event this information is protected by the Federal Confidentiality of Alcohol and Drug AbusePatient Records regulations: The Federal rules restrict any use of the information to criminally investigate or prosecute any alcohol or drug abuse patient.[facility] [place] [facility] Encounter Details Date Type Department Care Team (Late st Contact Info) Description 08/24/2020 Patient [facility] [place] [address] Provider, Ccf procedure 08/31/20 Social History Tobacco [...] N ot on file 01/20/2020 Data from: https://www.neighborhoodatlas.[facility]/. Last address used for calculation Not [...] on filedocumented in this encounter Care Teams Hot End Operator Relationship Specialty Start Date End Date Ash Rinaldi [address] [facility] [place] [address] PCP - General Family Medicine 11/23/17 documented as of this encounter
--- OUTSIDE RECORDS SUMMARY | 2024-10-31 06:56 | XMS_ITS | Encounter Summary ---
Author Organization [facility] Address [address] [place] [address] Care Team Providers Care Construction Ironworker Helper Name Role Phone Ash Rinaldi Primary Care Provider [phone] Source Comments In the event this information is protected by the Federal Confidentiality of Alcohol and Drug AbusePatient Records regulations: The Federal rules restrict any use of the information to criminally investigate or prosecute any alcohol or drug abuse patient.[facility] Encounter Details Date Type Department Care Team (Late st Contact Info) Description 05/18/2020 Get Medical Advice General Surgery [address] [place] [address] Morris Grady MD [address] [place] [address] RE: Visit Follow Up Question Social [...] on filedocumented in this encounter Care Teams Construction Ironworker Helper Relationship Specialty Start Date End Date Ash Rinaldi: [phone] [address] [place] [address] PCP - General Family Medicine 11/23/17 documented as of this encounter
--- OUTSIDE RECORDS SUMMARY | 2024-10-31 06:56 | XMS_ITS | Encounter Summary ---
Author [facility] Address [id number] [address] [place] [address] Care Team Providers Care Firer Helper Name Role Phone Drake Morrissey MD Primary Care Provider [phone] Encounter Details Date Type Department Care Team (Late st Contact Info) Description 09/24/2020 Orders Only [facility] [address] [place] [address] Logan Lopez CNA Secondary diabetes mellitus ([facility]) Social History Tobacco Use Types Packs/Day Years [...] often do you attend chur ch or yazidism services? Never 03/23/2020 Do you belong to any clubs o r organizations such as sabianism groups, unions, fraternal or athletic groups, or [...] Answer Date Recorded Total Score 0 09/20/2020 [facility] of Occupat ional Health - [...] EDT Office Visit [facility] [address] [place] [phone] Drake Morrissey MD [address] [place] [address] [phone] 10/21/2025 3:30 PM EDT Office Visit [facility] [address] [place] [address] Drake Morrissey MD [address] [place] [address] documented as of this encounter Procedures Procedure Name Priority Date/Time Associated Diagnosis Comments HEMOGLOBIN A1C Routine 09/23/2020 Secondary diabetes mellitus ([facility]) documented in this encounter Results * (ABNORMAL) Hemoglobin A1c (09/23/2020) External Hemoglobin A1C 9.4(A) <=6 % SUNQUEST 09/23/2020 Ash Landeros MD LAB BLOOD ORDERABLES Final [...] documented as of this encounter Care Teams Firer Helper Relationship Specialty Start Date End Date Drake Morrissey MD [address] [place] [address] PCP - General Internal Medicine 09/17/24 documented as of this encounter
--- OUTSIDE RECORDS SUMMARY | 2024-10-31 06:56 | XMS_ITS | Encounter Summary ---
Author Organization [facility] Address [address] [place] [address] Care Team Providers Care Funeral Home Attendant Name Role Phone Ash Rinaldi Primary Care Provider [phone] Source Comments In the event this information is protected by the Federal Confidentiality of Alcohol and Drug AbusePatient Records regulations: The Federal rules restrict any use of the information to criminally investigate or prosecute any alcohol or drug abuse patient.[facility] Encounter Details Date Type Department Care Team (Late st Contact Info) Description 11/19/2018 Patient Msg Medical Records [address] [place] [address] Provider, Ccf Prescribed Patient Education Video(s) Social [...] on filedocumented in this encounter Care Teams Funeral Home Attendant Relationship Specialty Start Date End Date Ash Rinaldi [address] [place] [address] PCP - General Family Medicine 11/23/17 documented as of this encounter
--- OUTSIDE RECORDS SUMMARY | 2024-10-31 06:56 | XMS_ITS | Encounter Summary ---
Author [facility] Address [id number] [address] [place] [address] Care Team Providers Care Petroleum Sampler Name Role Phone Drake Morrissey MD Primary Care Provider [phone] Encounter Details Date Type Department Care Team (Late st Contact Info) Description 09/27/2020 Orders Only [facility] [address] [place] [address] Ash Landeros MD [address]. Provider retired 05/13/24 [place] [address] Social History Tobacco Use Types [...] any clubs o r organizations such as yazidi groups, unions, fraternal or athletic groups, or [...] Answer Date Recorded Total Score 0 09/20/2020 [facility] of Occupat ional Health - Occupational Stress [...] Recorded Do you need help finding a [employer] ocal career center and/or a training program? [...] EDT Office Visit [facility] [address] [place] [phone] Drake Morrissey MD [address] [place] [address] [phone] 10/21/2025 3:30 PM EDT Office Visit [facility] [address] [place] [phone] Drake Morrissey MD [address] [place] [address] [phone] documented as of this encounter Visit Diagnoses Not on filedocumented in this encounter Additional Health Concerns Assessment Noted Time PHQ-9 Depression Total Score: 0 09/21/19 21 11:17 AM EDT A Body Mass Index follow-up plan has been documented for the patient 04/29/2020 3:01 PM EDT documented as of this encounter Care Teams Petroleum Sampler Relationship Specialty Start Date End Date Drake Morrissey MD [address] [place] [address] [phone] PCP - General Internal Medicine 09/17/24 documented as of this encounter
--- OUTSIDE RECORDS SUMMARY | 2024-10-31 06:56 | XMS_ITS | Encounter Summary ---
Author Organization [employer] s tem Address [id number] [address] [place] [address] Care Team Providers Care Crook Operator Name Role Phone Drake Morrissey MD Primary Care Provider [phone] Reason for Visit * Reason Onset Date Comments Med Refill 07/05/2018 Encounter Details Date Type Department Care Team (Late st Contact Info) Description 07/05/2018 Refill [facility] [address] [place] [phone] Leo Camacho LPN Social History Tobacco [...] Department Care Team (Late Contact Info) Description 04/30/2025 9:00 AM EDT Office Visit [facility] [address] [place] [phone] Drake Morrissey MD [address] [place] [address] 10/21/2025 3:30 PM EDT Office Visit [facility] [address] [place] [phone] Drake Morrissey MD [address] [place] [address] documented as of this encounter Visit Diagnoses Not on filedocumented in this encounter Additional Health Concerns Assessment Noted Time PHQ-9 Depression Total Score: 0 07/06/19 19 11:00 AM EDT documented as of this encounter Care Teams Crook Operator Relationship Specialty Start Date End Date Drake Morrissey MD [address] [place] [address] PCP - General Internal Medicine 09/17/24 documented as of this encounter
--- OUTSIDE RECORDS SUMMARY | 2024-10-31 06:56 | XMS_ITS | Encounter Summary ---
Author Organization [facility] Address [address] [place] [address] Care Team Providers Care Polishing Machine Operator Helper Name Role Phone Ash Rinaldi Primary Care Provider [phone] Source Comments In the event this information is protected by the Federal Confidentiality of Alcohol and Drug AbusePatient Records regulations: The Federal rules restrict any use of the information to criminally investigate or prosecute any alcohol or drug abuse patient.[facility] Encounter Details Date Type Department Care Team (Late st Contact Info) Description 09/22/2018 Patient Msg Medical Records [address] [place] [address] Provider, Ccf Prescribed Patient Education Video(s) Social [...] on filedocumented in this encounter Care Teams Polishing Machine Operator Helper Relationship Specialty Start Date End Date Ash Rinaldi [address] [place] [address] PCP - General Family Medicine 11/23/17 documented as of this encounter
--- OUTSIDE RECORDS SUMMARY | 2024-10-31 06:56 | XMS_ITS | Encounter Summary ---
Author Organization [facility] Address [facility] [place] [address] Care Team Providers Care Field Adjuster Name Role Phone Ash Rinaldi Primary Care Provider [phone] Source Comments In the event this information is protected by the Federal Confidentiality of Alcohol and Drug AbusePatient Records regulations: The Federal rules restrict any use of the information to criminally investigate or prosecute any alcohol or drug abuse patient.[facility] Encounter Details Date Type Department Care Team (Late st Contact Info) Description 08/25/2020 Patient Msg Pre Anesthesia [address] [place] [address] Nguyen Ugarte PA-C [address] [place] [address] Preoperative Instructions Social History Tobacco [...] N ot on file 01/20/2020 Data from: https://www.neighborhoodatlas.medicine.[facility]/. Last address used for calculation Not [...] on filedocumented in this encounter Care Teams Field Adjuster Relationship Specialty Start Date End Date Ash Rinaldi [address] [place] [address] PCP - General Family Medicine 11/23/17 documented as of this encounter
--- OUTSIDE RECORDS SUMMARY | 2024-10-31 06:56 | XMS_ITS | Encounter Summary ---
Author Organization [facility] Address [address] [place] [address] Care Team Providers Care Watch Parts Grinder Name Role Phone Ash Rinaldi Primary Care Provider [phone] Source Comments In the event this information is protected by the Federal Confidentiality of Alcohol and Drug AbusePatient Records regulations: The Federal rules restrict any use of the information to criminally investigate or prosecute any alcohol or drug abuse patient.[facility] Encounter Details Date Type Department Care Team (Late st Contact Info) Description 08/06/2018 Patient Msg Medical Records [address] [place] [address] Provider, Ccf Prescribed Patient Education Video(s) Social [...] Assessment Author No 08/05/2018 11:05 AM Ashli Mckoen RN * Because of a physical, mental, [...] on filedocumented in this encounter Care Teams Watch Parts Grinder Relationship Specialty Start Date End Date Ash Rinaldi [address] [place] [address] PCP - General Family Medicine 11/23/17 documented as of this encounter
--- OUTSIDE RECORDS SUMMARY | 2024-10-31 06:56 | XMS_ITS | Encounter Summary ---
Author Organization [employer] Address [id number] [address] [place] [address] Care Team Providers Care Convertible Sofa Bedspring Tester Name Role Phone Drake Morrissey MD Primary Care Provider [phone] Encounter Details Date Type Department Care Team (Late st Contact Info) Description 09/24/2020 Telephone [facility] [address] [place] [address] Ash Landeros MD [address]. Provider retired 05/13/24 [place] [address] Social History Tobacco Use Types [...] often do you attend chur ch or denominational services? Never 03/23/2020 Do you [...] Answer Date Recorded Total Score 0 09/20/2020 [facility] of Occupat ional Health - Occupational Stress [...] Recorded Do you need help finding a [employer] ocal career center and/or a training program? [...] EDT Office Visit [facility] [address] [place] [address] [place] [phone] Drake Morrissey MD [address] [place] [address] [phone] 10/21/2025 3:30 PM EDT Office Visit [facility] [address] [place], [place] [address] [place] [address] Drake Morrissey MD [address] [place] [address] [phone] documented as of this encounter Visit Diagnoses Diagnosis Secondary diabetes mellitus ([facility])- Primary Secondary diabetes mellitus without mention of complication, not stated as uncontrolled, or unspecified documented in this encounter Additional Health Concerns Assessment Noted Time PHQ-9 Depression Total Score: 0 09/21/19 21 11:17 AM EDT A Body Mass Index follow-up plan has been documented for the patient 04/29/2020 3:01 PM EDT documented as of this encounter Care Teams Convertible Sofa Bedspring Tester Relationship Specialty Start Date End Date Drake Morrissey MD [address] [place] [address] PCP - General Internal Medicine 09/17/24 documented as of this encounter
--- OUTSIDE RECORDS SUMMARY | 2024-10-31 06:56 | XMS_ITS | Encounter Summary ---
Author Organization [facility] Address [address] [place] [address] Care Team Providers Care Doper Operator Name Role Phone Ash Rinaldi Primary Care Provider [phone] Source Comments In the event this information is protected by the Federal Confidentiality of Alcohol and Drug AbusePatient Records regulations: The Federal rules restrict any use of the information to criminally investigate or prosecute any alcohol or drug abuse patient.[facility] Encounter Details Date Type Department Care Team (Late st Contact Info) Description 2022 [place] [address] Provider, Ccf Medicare Coverage of Physical Exams [...] N ot on file 01/20/2020 Data from: https://www.neighborhoodatlas.medicine.[facility].edu/. Last address used for calculation Not [...] on filedocumented in this encounter Care Teams Doper Operator Relationship Specialty Start Date End Date Ash Rinaldi: [phone] [address] [place] [address] PCP - General Family Medicine 11/23/17 documented as of this encounter
--- OUTSIDE RECORDS SUMMARY | 2024-10-31 06:56 | XMS_ITS | Encounter Summary ---
Author Organization [facility] Address [facility] [place] [address] Care Team Providers Care Military Pay Clerk Name Role Phone Ash Rinaldi Primary Care Provider [phone] Source Comments In the event this information is protected by the Federal Confidentiality of Alcohol and Drug AbusePatient Records regulations: The Federal rules restrict any use of the information to criminally investigate or prosecute any alcohol or drug abuse patient.[facility] Encounter Details Date Type Department Care Team (Late st Contact Info) Description 11/10/2019 Get Medical Advice Pain Management [address] [place] [address] Marcia Rascon, COMMISSIONS MANAGER.SOLUTIONS ARCHITECT [address] [place], [place] [phone] RE: Visit Follow Up Question Social History [...] on filedocumented in this encounter Care Teams Military Pay Clerk Relationship Specialty Start Date End Date Ash Rinaldi [address] [place] [address] PCP - General Family Medicine 11/23/17 documented as of this encounter
--- OUTSIDE RECORDS SUMMARY | 2024-10-31 06:56 | XMS_ITS | CCD ---
Author Organization [facility] Care Team Providers Care Felt Cutter Name Role Phone AVASTHI, STEPH Unavailable Unavailable [...] Care Provider Leti, MD Gracia Attending Provider Leti, Samia Attending Unavailable Defrance, Samia Primary Care Unavailable Defrance, Samia Admitting Unavailable Defrance Samia JENKNIS Primary Care Provider [phone] Samia Landeros MD Primary Care Provider [phone] Samia Landeros MD Primary Care Provider Drake Shaw MD Primary Care Provider ASMIA LANDEROS Referring Unavailable DRAKE SHAW Primary Care Unavailable DRAKE SHAW Attending Unavailable Allergies Allergy Classification Reported Allergen(s) Allergy Type Date of Onset Reaction(s) Facility (20 sources) Codeine; Translations: [CODEINE] Drug Allergy 8 Swelling, Other (See Comments) [facility] Work Phone: (20 sources) LORazepam; Translations: [LORAZEPAM] Drug Allergy 8 rash, Other: See Comments [facility] Work Phone: (1 source) Codeine Drug Allergy [facility] Repository (1 source) LORazepam Drug Allergy [facility] (1 source) Codeine Drug Allergy [address] [facility] Repository (1 source) LORazepam Drug Allergy 4 [facility] Repository Medications Current Medications Medication Drug Class(es) Dates Sig (Normalized) Sig (Original) ACCU-CHEK GUIDE L1-L2 CTRL MISTY solution (9 sources) Start: 08-15-2023 ACCU-CHEK GUIDE L1-L2 CTRL MISTY solution 08/15/2023 Active amLODIPine 5 mg oral tablet (20 sources) Dihydropyridine Calcium Channel Juliet Start: 04-27-2023 End: 10-20-2024 take 1 tablet by mouth in the morning amLODIPine (NORVASC) 5 mg tablet Indications: Essential hypertension, benign Take 1 tablet (5 mg total) by mouth in the morning. 90 tablet 2 10/20/2024 Active Start: 02-14-2018 End: 10-20-2024 take 1 tablet by mouth once daily amLODIPine (NORVASC) 10 mg tablet TAKE 1 TABLET BY MOUTH EVERY DAY 90 tablet 3 01/17/2023 10/20/2024 Discontinued (Patient Stopped On Own) Comment on above: Take 10 mg by mouth once daily. amylase [id number] unt / lipase [id number] unt / protease [id number] unt delayed release oral capsule (20 sources) Start: 02-11-20 ZENPEP 40,000-126,000- 168,000 unit capsule,delayed release(DR/EC) TAKE 2 CAPSULES BY MOUTH WITH MEALS AND 1 CAPSULE WITH EACH SNACK 270 capsule 5 02/10/2019 Active Comment on above: Take 2 capsules by m outh w MEALS. Take 1 tablet with each snack. atorvastatin 10 mg oral tablet (20 sources) HMG-CoA Reductase Inhibitor Start: 08-29-19 End: 08-14-19 take 1 tablet by mouth in the morning atorvastatin (LIPITOR) 10 mg tablet Indications: Mixed hyperlipidemia TAKE 1 TABLET (10 MG TOTAL) BY MOUTH IN THE MORNING 90 tablet 3 08/13/2024 Active blood-glucose sensor (Dexcom G7 Sensor) (1 source) Start: 12-31-19 blood-glucose sensor (Dexcom G7 Sensor) Active .Route December 31, 2023 12:00am carvedilol 25 mg oral tablet (20 sources) alpha-Adrenergic Juliet, beta-Adrenergic Juliet Start: 08-29-19 End: 05-20-19 take 1 tablet by mouth at bedtime carvediloL (COREG) 25 mg tablet TAKE 1 TABLET (25 MG TOTAL) BY MOUTH IN THE MORNING AND BEFORE BEDTIME 180 tablet 3 05/19/2024 Active Comment on above: Take 25 mg by mouth twice daily with meals. cefdinir 300 mg oral capsule (3 sources) Cephalosporin Antibacterial Start: 07-24-19 End: 08-03-19 take 1 capsule by mouth in the [...] Start: 06-18-2023 take 1 capsule by mo [facility] twice daily Cholecalciferol (Vitamin D3) 125 mcg (5,000 unit) capsule Active 5000 UNIT PO Twice daily June 17, 2023 11:00pm take 1 capsule by [facility] every twelve hours Vitamin D3 125 MCG (5000 UT) 1 capsule Orally twice a day Active DEXCOM G6 PHYSICIAN INTENSIVIST misc (20 sources) Start: 01-24-2022 DEXCOM G6 RECE IVER misc 01/24/2022 Active Start: 01-24-2022 DEXCOM G6 RECE [...] Start: 01-24-2022 DEXCOM G6 SENS OR device 01/24/2022 Active Start: 01-24-2022 DEXCOM G6 SENS [...] Start: 01-24-2022 DEXCOM G6 ESCOBAR SMITTER device 01/24/2022 Active Start: 01-24-2022 DEXCOM G6 ESCOBAR [...] AREA TWICE DAILY NEEDED FOR PAIN DIRECTED ferrous sulfate 325 mg oral tablet (20 sources) Start: 10-16-2023 End: 10-20-2024 take 1 tablet by mouth in the morning ferrous sulfate 325 (65 FE) MG tablet Take 1 tablet (325 mg total) by mouth in the morning. 90 tablet 3 10/20/2024 Active Start: 09-11-2023 take 1 tablet by shira th in the morning ferrous sulfate 325 (65 FE) mg tablet TAKE 1 TABLET (325 MG TOTAL) BY MOUTH IN THE MORNING 90 tablet 1 09/11/2023 Active Start: 01-01-2023 End: 09-11-2023 take 1 tablet by mouth once daily Ferrous Sulfate 325 mg (65 mg iron) tablet Active 325 MG PO Daily June 17, 2023 11:00pm take 1 tablet by shira th once daily Ferrous Sulfate 325 (65 Fe) MG 1 tablet Orally Once a day Active Comment on above: Take 325 mg by mouth once daily. gentamicin 3 mg/ml ophthalmic solution (1 source) Start: End: gentamicin (GARAMYCIN) 0.3 % ophthalmic solution Administer 1 drop to both eyes in the morning and 1 drop at noon and 1 drop in the evening and 1 drop before bedtime. Do all this for 5 days. 5 mL 07/24/2023 07/29/2023 Active hydroCHLOROthiazide 25 mg oral tablet (20 sources) Thiazide Diuretic Start: 024 End: 025 take 1 tablet by mouth once daily hydroCHLOROthiazide (HYDRODIURIL) 25 mg tablet Indications: Essential hypertension, benign Take 1 tablet (25 mg total) by mouth daily. 90 tablet 2 10/20/2024 Active 1.5 ml insulin glargine 300 unt/ml pen injector (20 sources) Insulin Analog Start: 023 TOUJEO SOLOSTAR U-300 INSULIN 300 unit/mL (1.5 mL) insulin pen 03/13/2022 Active Start: 03-13-2022 inject 10 [IU] by [place] bcutaneous injection in the morning, then inject 20 [...] bcutaneous injection once daily in the morning Tounacho BennettoStar 300 UNIT/ML 28 units qam Subcutaneous as [...] solution (20 sources) Insulin Analog Start: 08-30-2023 HumaLOG U-100 Insulin 100 unit/mL injection 08/30/2023 Active Start: 03-13-2022 End: 10-20-2024 HumaLOG KwikPen Insulin 100 unit/mL insulin pen 1:25 CORRECTIVE SCALE BEFORE MEAL 3TIMES DAILY SUBCUTANEOUSLY DIRECTED*EXPECT UP TO 20UNITS DAILY 03/13/2022 10/20/2024 Discontinued Start: 01-04-2022 HumaLOG KwikPe n 100 UNIT/ML [...] solution Active 0 SUBCUT Use as Directed August 29, 2023 11:00pm Use with insulin pump up to 100 units per day. subcutaneously use as directed; lancing device misc (20 sources) Start: 03-03-2022 lancing device misc 03/03/2022 Active Start: 03-03-2022 lancing device misc Annpqm-Bdifclom-Fvyiyjp 40,000-126,000- 168,000 unit capsule,delayed release(DR/EC) (1 source) Start: 06-18-2023 take 2 capsules by mouth three times daily at mealtime, then take 1 capsule by mouth three times daily Gbqsek-Bjevfedz-Crdfzoa 40,000-126,000- 168,000 unit capsule,delayed release(DR/EC) Active 0 PO Three times daily June 17, 2023 11:00pm orally three times daily; 2 capsules with meals, 1 capsule with each snack Orally tid; meclizine hydrochloride 25 mg oral tablet (20 sources) Antiemetic Start: 08-20-2023 End: 10-15-2024 take 1 tablet by mouth three times daily as needed for dizziness meclizine (ANTIVERT) 25 mg tablet Take 1 tablet (25 mg total) by mouth 3 (three) times a day as needed for dizziness. 90 tablet 1 10/15/2024 Active Start: 09-22-2022 End: 08-17-2023 take 1 tablet by mouth three times daily as needed for dizziness meclizine (ANTIVERT) 25 mg tablet Take 1 tablet (25 mg total) by mouth 3 (three) times a day as needed for dizziness. 90 tablet 7 08/20/2023 Active multivitamin (THERAGRAN) tablet (20 sources) take 1 tablet by shira th in the morning multivitamin (THERAGRAN) tablet [...] (20 sources) Serotonin-3 Receptor Antagonist Start: 10-16-2023 End: 10-20-2024 take 1 tablet by mouth every eight hours as needed for nausea ondansetron (ZOFRAN) 4 mg tablet Indications: Necrotizing pancreatitis Take 1 tablet (4 mg total) by mouth every 8 (eight) hours as needed for nausea or vomiting. 30 tablet 5 10/20/2024 Active Start: 12-11-2022 End: 07-16-2023 take 1 tablet by mouth every eight hours as needed for nausea ondansetron (ZOFRAN) 4 mg tablet Indications: Necrotizing pancreatitis Take 1 tablet (4 mg total) by mouth every 8 (eight) hours as needed for nausea or vomiting. 30 tablet 5 10/16/2023 Active pantoprazole 40 mg delayed release oral tablet (20 sources) Proton Pump Inhibitor Start: 08-28-2022 End: 08-13-2024 take 1 tablet by mouth in the morning pantoprazole (PROTONIX) 40 mg EC tablet TAKE 1 TABLET (40 MG TOTAL) BY MOUTH IN THE MORNING 90 tablet 3 08/13/2024 Active Comment on above: Take 40 mg by mouth once daily. pen needle, diabetic (BD Janneth 2nd Gen Pen Needle) (1 source) Start: 06-18-2023 pen needle, diabetic (BD Janneth 2nd Gen Pen Needle) Active .Route June 17, 2023 11:00pm microencapsulated potassium chloride 10 meq extended release oral tablet (20 sources) Start: 10-22-2023 End: 10-20-2024 take 1 tablet by mouth in the morning, then take 1 tablet by mouth at bedtime, then take 1 tablet by mouth in the morning potassium chloride (KLOR-CON M10) 10 MEQ CR tablet Indications: Essential hypertension, benign Take 1 tablet (10 mEq total) by mouth in the morning and 1 tablet (10 mEq total) before bedtime. TAKE 1 TABLET (10 MEQ TOTAL) BY MOUTH IN THE MORNING. 180 tablet 3 10/20/2024 Active Start: 06-18-2023 take 1 tablet by shira twice daily Potassium Chloride 10 mEq tablet extended release Active 10 MEQ PO Twice daily June 17, 2023 11:00pm Start: 09-22-2022 End: 08-27-2023 take 1 tablet by mouth in the morning KLOR-CON M10 10 mEq CR tablet TAKE 1 TABLET (10 MEQ TOTAL) BY MOUTH IN THE MORNING 90 tablet 2 08/27/2023 Active take 1 tablet by shira th every twelve hours Potassium Chloride ER 10 MEQ 1 tablet with food Orally Twice a day Active psyllium 400 mg oral capsule (20 sources) take 1 capsule by mo ut in the morning psyllium husk (METAMUCIL) 0.4 gram capsule Take by mouth in the morning. Active Metamucil Active Comment on above: Take by mouth once d aily. Psyllium Husk (Metamucil) 0.4 gram capsule (1 source) Start: Psyllium Husk (Metamucil) 0.4 gram capsule Active 0.4 GM PO Daily June 17, 2023 11:00pm Subcutaneous Insulin Pump (T:Slim X2 Control-Iq) misc (1 source) Start: Subcutaneous Insulin Pump (T:Slim X2 Control-Iq) misc Active 0 .Route 1 August 19, 2023 11:00pm Use continuously to deliver insulin T:SLIM X2 CONTROL-IQ misc (9 sources) Start: T:SLIM X2 CONTROL-IQ misc 08/20/2023 Active tiZANidine 4 mg oral tablet (20 sources) Central alpha-2 Adrenergic Agonist Start: 4 End: 5 take 1 tablet by mouth every eight hours as needed tiZANidine (ZANAFLEX) 4 mg tablet Take 1 tablet (4 mg total) by mouth every 8 (eight) hours as needed for muscle spasms. 270 tablet 3 10/20/2024 Active Start: 06-18-2023 take 1 tablet by shira th once daily at bedtime as needed Tizanidine 4 mg tablet Active 4 MG PO Daily at bedtime as needed June 17, 2023 11:00pm Start: 01-01-2023 take 1 tablet by shira th every eight hours as needed tiZANidine (ZANAFLEX) 4 mg tablet Take 1 tablet (4 mg total) by mouth every 8 (eight) hours as needed for muscle spasms. 270 tablet 3 01/01/2023 Active Start: 04-20-2019 take 1 tablet by shira th once daily at bedtime tiZANidine (ZANAFLEX) [...] on above: Take 2 tablets by mo [facility] every 6 hours as needed [...] tablet 1 01/13/2021 04/02/2023 Discontinued (Alternate therapy) benzonatate 200 mg oral capsule (19 sources) Non-narcotic Antitussive Start: 04-18-2023 End: 10-20-2024 take 1 capsule by mouth three times daily as needed for cough benzonatate (TESSALON PERLES) 200 mg capsule Take 1 capsule (200 mg total) by mouth 3 (three) times a day as needed for cough. 30 capsule 1 04/18/2023 10/20/2024 Discontinued (Patient Stopped On Own) blood-glucose sensor (Dexcom G6 Sensor) (1 source) [...] 31, 2023 12:00am April 14, 2024 3:08pm docusate sodium 100 mg oral capsule (20 sources) Start: 06-18-2023 End: 10-20-2024 take 1 capsule by mouth in the morning, then take 1 capsule by mouth at bedtime docusate sodium (STOOL SOFTENER) 100 mg capsule Take 1 capsule (100 mg total) by mouth in the morning and 1 capsule (100 mg total) before bedtime. 180 capsule 3 10/16/2023 10/20/2024 Discontinued (Reorder) Start: 04-12-2022 End: 03-26-2023 take 1 capsule by mouth in the morning STOOL SOFTENER 100 mg capsule TAKE 1 CAPSULE (100 MG TOTAL) BY MOUTH IN THE MORNING AND 1 CAPSULE BEFORE BEDTIME 180 capsule 3 03/26/2023 Active take 1 capsule by [facility] twice daily docusate sodium (COLACE) 100 mg capsule Take 100 mg by mouth twice daily. 0 Active Comment on above: Take 100 mg by mouth twice daily. glimepiride 2 mg oral tablet (1 source) Sulfonylurea Start: 05-19-19 21 glimepiride (AMARYL) 2 mg tablet 4 mg daily with breakfast. 0 05/18/2020 Active Comment on above: 4 mg daily with bing kfast. lidocaine 0.05 mg/mg medicated patch (20 sources) Antiarrhythmic, Amide Local Anesthetic Start: 08-20-19 End: 10-21-19 25 apply 1 dose transdermal route in the morning lidocaine (LIDODERM) 5 % Place 1 patch on the skin in the morning. 30 patch 7 08/20/2023 10/20/2024 Discontinued (Patient Stopped On Own) Start: 06-18-2023 Lidocaine 5 % adhesive patch,medicated [...] 12 hours Externally Once a day Active meloxicam 15 mg oral tablet (1 source) Nonsteroidal Anti-inflammatory Drug Start: 02-23-2021 take 1 tablet by mouth once daily meloxicam (MOBIC) 15 mg tablet TAKE 1 TABLET BY MOUTH EVERY DAY 30 tablet 1 02/23/2021 Active Comment on above: TAKE 1 TABLET BY MOUTH EVERY DAY MULTI-VITAMIN ORAL (1 source) take 1 tablet by mouth once daily MULTI-VITAMIN ORAL Take 1 tablet by mouth once daily. 0 Active Comment on above: Take 1 tablet by mouth once daily. 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 Episodic Other endocrine [...] conditions (not mental disorders or infectious disease) (3 sources) Encounter for screening mammogram for malignant neoplasm of breast; Translations: [Patient encounter status] Onset: 11-10-2021 10-20-2024 Episodic Residual codes; unclassified (16 sources) Acquired [...] 11-01-2017 Unclassified (1 source) Annual Exam Onset: 10-20-2024 Past or Other Problems Problem Classification Problem [...] Mood disorders (20 sources) Mood disorders Onset: 10-16-2023 Resolved: 10-18-2024 10-16-2023 Other connective tissue disease (10 sources) Myofascial pain syndrome; Translations: [Myalgia, other site] Onset: 09-23-2019 09-23-2019 Episodic Other lower respiratory disease (1 source) H/O: respiratory disease; Translations: [Personal history of other diseases of the respiratory system] Onset: 11-05-2017 08-25-2020 Episodic Other upper respiratory infections (1 source) Acute sinusitis; Translations: [Other acute sinusitis] 04-16-2023 Episodic Pancreatic disorders (not diabetes) (20 sources) Acute necrotizing pancreatitis; Translations: [Acute pancreatitis with uninfected necrosis, unspecified] Onset: 11-03-2017 12-28-2017 Episodic Spondylosis; intervertebral disc disorders; other back problems (20 sources) Neck pain; Translations: [Cervicalgia] Onset: 08-31-2022 08-31-2022 Episodic Unclassified (20 sources) Onset: 04-29-2020 Resolved: 10-20-2024 04-29-2020 Results Test Name Value Interpretation Reference Range Facility A1C HEMOGLOBINon 03-12-2023 HbA1c (Bld) [Mass fraction] 7.8 % [facility] Other Glucose - FINGER STICKon Glucose [Mass/Vol] 132 mg/dL [facility] Other HbA1c (Bld) [Mass fraction]o n 03-12-2023 A1C HEMOGLOBIN [facility] Other A1C HEMOGLOBINon 11-27-2022 HbA1c (Bld) [Mass fraction] 6.7 % [facility] Other Glucose - FINGER STICKon Glucose [Mass/Vol] 126 mg/dL [facility] Other HbA1c (Bld) [Mass fraction]o n 11-27-2022 A1C HEMOGLOBIN [facility] Other Glucose - FINGER STICKon Glucose [Mass/Vol] 106 mg/dL [facility] Other Glucose - FINGER STICKon Glucose [Mass/Vol] 131 mg/dL [facility] Other GGTon 05-01-2022 Gamma glutamyl transferase [Catalytic activity/Vol] 27 U/L Normal 8-55 [facility] [place] [facility] Comment on above: Performed By: #### G GT, ALT, AST #### [facility] [address] [place], [place] [address] Dr. Caridad COLINOTodeborah 05-01-2022 AST [Catalytic activity/Vol] 24 U/L Normal 15-37 [facility] [place] [facility] Comment on above: Performed By: #### G GT, ALT, AST ####[facility] [address] [place], [place] [address]ZpDr. Caridad COLINPTon 05-01-2022 ALT [Catalytic activity/Vol] 40 U/L Normal 14-59 [facility] [place] [facility] Comment on above: Performed By: #### G GT, ALT, AST #### [facility] [address] [place] [address] [address] Caridad [place] Glucose - FINGER STICKon Glucose [Mass/Vol] 126 mg/dL [place] [facility] Other A1C HEMOGLOBINon 02-20-2022 HbA1c (Bld) [Mass fraction] 10.0 % [place] [facility] Other Glucose - FINGER STICKon Glucose [Mass/Vol] 125 mg/dL [place] [facility] Other HbA1c (Bld) [Mass fraction]o n 02-20-2022 A1C HEMOGLOBIN [facility] [employer] Other C-PEPTIDE, SERUMon 2 C-Peptide, Serum 3.5 ng/mL Normal 1.1-4.4 [facility] Comment on above: Result Comment: C-Pe ptide reference interval is for fasting patients. Performed By: #### C PEPT #### [facility] [address] [place] [address] [address] Caridad [place] GGTon 01-06-2022 Gamma glutamyl transferase [Catalytic activity/Vol] 40 U/L Normal 8-55 [facility] [place] [facility] Comment on above: Performed By: #### A ST, K, ALT, LIPID, GGT ####[facility] [address] [place], [place] [address] [place] GLUCOSE BLOODon 01-06-2022 Glucose [Mass/Vol] 342 mg/dL Critically high 74-106 [facility] Comment on above: Performed By: #### G PAMELA ####[facility] [address] [place] [id number]. Caridad [place] LIPID PROFILEon 01-06-2022 CHOL-HDL RATIO NORM SEE BELOW Normal [facility] [place] [facility] Comment on above: Result Comment: 3.3 - 4.4 LOW RISK 4.4 - 7.1 AVERAGE RISK 7.1 - 11.0 MODERATE RISK >11.0 HIGH RISK Performed By: #### A ST, K, ALT, LIPID, GGT ####[facility] [address] [place] [id number]. Caridad [place] Cholesterol [Mass/Vol] 142 mg/dL Normal <=200 [facility] Comment on above: Performed By: #### A ST, K, ALT, LIPID, GGT ####[facility] [address] [place] [id number]. Caridad [place] Cholesterol in HDL [Mass/Vol] 32 mg/dL Critically low 40-60 [facility] Comment on above: Performed By: #### A ST, K, ALT, LIPID, GGT ####[facility] [address] [place] [id number]. Caridad [place] Cholesterol in LDL [Mass/Vol] 62.2 mg/dL Normal [facility] Comment on above: Performed By: #### A ST, K, ALT, LIPID, GGT ####[facility] [address] [place] [address]Dr. Caridad [place] Cholesterol.total/ Cholesterol in HDL [Mass ratio] 4.4 {ratio} Normal [facility] Comment on above: Performed By: #### A ST, K, ALT, LIPID, GGT ####[facility] [address] [place] [address]Dr. Caridad [place] HDL NORMAL > or = 60 mg/dl - LO W CARDIOVASCULAR RISK <40 mg/dl - HIGH CARDIOVASCULAR RISK Normal [facility] Comment on above: Performed By: #### A ST, K, ALT, LIPID, GGT ####[facility] [address] [place] [address]Dr. Caridad [place] LDL CALC NORMAL SEE BELOW Normal [facility] Comment on above: Result Comment: <100 mg/dl OPTIMAL 100 - 129 mg/dl NEAR OR ABOVE OPTIMAL 130 - 159 mg/dl BORDERLINE HIGH 160 - 189 mg/dl HIGH >190 mg/dl VERY HIGH Performed By: #### A ST, K, ALT, LIPID, GGT ####[facility] [address] [place] [address]Dr. Caridad [place] Triglyceride [Mass/Vol] 239 mg/dL Critically high <=150 [facility] Comment on above: Performed By: #### A ST, K, ALT, LIPID, GGT ####[facility] [address] [place] [id number]. aCridad [place] VLDL CALC 47.8 mg/dL Normal [facility] Comment on above: Performed By: #### A ST, K, ALT, LIPID, GGT ####[facility] [address] [place] [address]Dr. Caridad [place] MICROALB CREAT RATIO RANDOMo n 01-06-2022 mALB <1.3 Normal <=30.0 [facility] Comment on above: Performed By: #### M CRR ####[facility] [address] [place] [address]Dr. Caridad [place] MALB CR RATIO 11.1 mg/g Normal 0.0-29.9 [facility] Comment on above: Performed By: #### M CRR ####[facility] [address] [place] [address]Dr. Caridad [place] MALB CR RATIO RANGE SEE BELOW Normal [facility] Comment on above: Result Comment: NO M ICROALBUMINURIA 0-29 MG/G CLINICAL MICROALBUMINURIA 30-300 MG/G MACROALBUMINURIA >300 MG/G Performed By: #### M CRR ####[facility] [address] [place], [place] [address]Dr. Caridad [place] URINE CREAT 116.75 mg/dL Normal 20.00-300.00 [facility] Comment on above: Performed By: #### M CRR ####[facility] [address] [place] [address]Dr. Caridad [place] POTASSIUMon 01-06-2022 Potassium [Moles/Vol] 4.1 mmol/L Normal 3.5-5.1 [facility] Comment on above: Performed By: #### A ST, K, ALT, LIPID, GGT ####[facility] [address] [place] [address]Dr. Caridad [place] SGOTon 01-06-2022 AST [Catalytic activity/Vol] 32 U/L Normal 15-37 [facility] Comment on above: Performed By: #### A ST, K, ALT, LIPID, GGT ####[facility] [address] [place], [place] [address]AnDr. Caridad [place] SGPTon 01-06-2022 ALT [Catalytic activity/Vol] 63 U/L Critically high 14-59 [facility] [place] [facility] Comment on above: Performed By: #### A ST, K, ALT, LIPID, GGT ####[facility] [address] [place] [id number]. Caridad [place] Glucose - FINGER STICKon Glucose [Mass/Vol] 359 mg/dL [facility] Other GLYCOHEMOGLOBIN A1Con 2021 ADA RECOMMENDATION SEE BELOW Normal [facility] Comment on above: Result Comment: ADA RECOMMENDED LIMIT 4.0 - 6.0 ADA THERAPEUTIC TARGET < 7.0 ACTION SUGGESTED > 7.0 Performed By: #### A 1C #### [facility] [address] [place] [address] [address] Caridad [place] Glucose [Mass/Vol] 272 mg/dL Normal [facility] Comment on above: Performed By: #### A 1C #### [facility] [address] [place] [address] [address] Caridad [place] HbA1c (Bld) [Mass fraction] 11.1 % Critically high 4.5-6.2 [facility] [place] [facility] Comment on above: Performed By: #### A 1C #### [facility] [address] [place] [address] [address] Caridad [place] MG MAMM SCREEN 3D [facility] CADon 11-08-2021 MG MAMM SCREEN 3D [facility] CAD Patient: NICHOLE SANDHU Exam Date: 11/08/2021 : 1955 Gender:F Ordering : DR SAMIA LANDEROS Admission #: [id number] Family : Order #: [id number] CLICK HERE TO VIEW EXAM RADIOLOGY REPORT [...] Treatments None Family Cancers None LOCATION: [facility] BREAST COMPOSITION: Scattered areas fibroglandular density. [...] Cheek MD on 11/09/2021 at 07:37 Normal [facility] [place] [facility] MICROALBUMIN/ CREATININE RAT IOon 10-25-2021 Albumin, Urine 985.5 ug/mL Normal Not Estab. [facility] Comment on above: Result Comment: Resu lts confirmed on dilution. Performed By: #### M ALBCRL #### [facility] [address] [place] [address] Dr. Caridad [place] Albumin/ Creatinine Ratio 399 mg/g creat Critically high 0-29 [facility] [place] [facility] Comment on above: Result Comment: Norm al: 0 - 29 Moderately increased: 30 - 300 Severely increased: >300 Performed By: #### M ALBCRL #### [facility] [address] [place] [address] Dr. Caridad Canada Creatinine, Urine 247.2 mg/dL Normal Not Estab. [facility] Comment on above: Performed By: #### M ALBCRL #### [facility] [address] [place] [address] Dr. Caridad Canada CBC AUTO DIFFon 10-24-2021 BASO # 0.1 103/ul Normal 0.0-0.1 [facility] Comment on above: Performed By: #### C BC #### [facility] [address] [place] [address] Dr. Caridad Canada Basophils/100 WBC (Bld) 0.9 % Normal 0.2-2.0 [facility] Comment on above: Performed By: #### C BC #### [facility] [address] [place] [address] Dr. Caridad Canada EO # 0.5 103/ul Normal 0.0-0.7 [facility] Comment on above: Performed By: #### C BC #### [facility] [address] [place] [address] Dr. Caridad Canada Eosinophils/100 WBC (Bld) 4.1 % Normal 0.9-7.0 [facility] Comment on above: Performed By: #### C BC #### [facility] [address] [place] [address] Dr. Caridad Canada Erythrocyte distribution width (RBC) [Ratio] 13.2 % Normal 11.0-15.0 [facility] Comment on above: Performed By: #### C BC #### [facility] [address] [place] [address] Dr. Caridad Canada Hematocrit (Bld) [Volume fraction] 42.5 % Normal 36.0-48.0 [facility] Comment on above: Performed By: #### C BC #### [facility] [address] [place] [address] Dr. Caridad Canada Hemoglobin (Bld) [Mass/Vol] 14.2 g/dL Normal 12.0-16.0 [facility] Comment on above: Performed By: #### C BC #### [facility] [address] [place] [address] Dr. Caridad Canada IG # 0.08 10e3/ul Critically high 0.00-0.03 [facility] Comment on above: Performed By: #### C BC #### [facility] [address] [place] [address] Dr. Caridad Canada IG % 0.7 % Critically high 0.0-0.5 [facility] Comment on above: Performed By: #### C BC #### [facility] [address] [place] [address] Dr. Caridad Canada LYMPH # 4.0 103/ul Critically high 1.2-3.8 [facility] Comment on above: Performed By: #### C BC #### [facility] [address] [address] [address] Caridad Canada Lymphocytes/100 WBC (Bld) 32.9 % Normal 20.5-60.0 [facility] Comment on above: Performed By: #### C BC #### [facility] [address] [address] [address] Caridad Canada MANUAL DIFF REQ NO Normal [facility] Comment on above: Performed By: #### C BC #### [facility] [address] [place] [address] Dr. Caridad Canada MCH (RBC) [Entitic mass] 28.8 pg Normal 26.7-34.0 [facility] Comment on above: Performed By: #### C BC #### [facility] [address] [place] [address] Dr. Caridad Canada MCHC (RBC) [Mass/Vol] 33.4 g/dL Normal 29.9-35.2 [facility] Comment on above: Performed By: #### C BC #### [facility] [address] [place] [address] Dr. Caridad Canada MCV (RBC) [Entitic vol] 86.2 fL Normal 81.0-99.0 [facility] Comment on above: Performed By: #### C BC #### [facility] [address] [place] [address] Dr. Caridad Canada MONO # 0.7 103/ul Normal 0.3-0.8 [facility] Comment on above: Performed By: #### C BC #### [facility] [address] [place] [address] Dr. Caridad Canada Monocytes/100 WBC (Bld) 6.1 % Normal 1.7-12.0 [facility] Comment on above: Performed By: #### C BC #### [facility] [address] [place] [address] Dr. Caridad Canada NEUT # 6.7 103/ul Critically high 1.4-6.5 [facility] Comment on above: Performed By: #### C BC #### [facility] [address] [address] [address] Caridad Canada Neutrophils/100 WBC (Bld) 55.3 % Normal 43.0-75.0 [facility] Comment on above: Performed By: #### C BC #### [facility] [address] [address] [address] Caridad Canada Platelet mean volume (Bld) [Entitic vol] 12.1 fL Normal 9.5-13.5 [facility] Comment on above: Performed By: #### C BC #### [facility] [address] [address] [address] Caridad Canada PLT 320 103/ul Normal 150-450 [facility] Comment on above: Performed By: #### C BC #### [facility] [address] [address] [address] Caridad Canada RBC 4.93 106/ul Normal 4.20-5.40 [facility] Comment on above: Performed By: #### C BC #### [facility] [address] [address] [address] Caridad Canada WBC 12.1 103/ul Critically high 4.0-11.0 [facility] Comment on above: Performed By: #### C BC #### [facility] [address] [address] [address] Caridad Canada FREE T4on 10-24-2021 Free T4 [Mass/Vol] 1.22 ng/dL Normal 0.76-1.[address] [facility] Comment on above: Performed By: #### F T4 ####[facility] [id number] [address]. Caridad Canada LIPID PROFILEon 10-24-2021 CHOL-HDL RATIO NORM SEE BELOW Normal [facility] Comment on above: Result Comment: 3.3 - 4.4 LOW RISK 4.4 - 7.1 AVERAGE RISK 7.1 - 11.0 MODERATE RISK >11.0 HIGH RISK Performed By: #### C MP, LIPID, TSH #### [facility] [address] [address] [address] Caridad Canada Cholesterol [Mass/Vol] 181 mg/dL Normal <=200 [facility] Comment on above: Performed By: #### C MP, LIPID, TSH #### [facility] [address] [address] [address] Caridad Canada Cholesterol in HDL [Mass/Vol] 30 mg/dL Critically low 40-60 [facility] Comment on above: Performed By: #### C MP, LIPID, TSH #### [facility] [address] [address] [address] Caridad Canada Cholesterol in LDL [Mass/Vol] 74.6 mg/dL Normal [facility] Comment on above: Performed By: #### C MP, LIPID, TSH #### [facility] [address] [address] [address] Caridad Canada Cholesterol.total/ Cholesterol in HDL [Mass ratio] 6.0 {ratio} Normal [facility] Comment on above: Performed By: #### C MP, LIPID, TSH #### [facility] [address] [address] [address] Caridad Canada HDL NORMAL > or = 60 mg/dl - LO W CARDIOVASCULAR RISK <40 mg/dl - HIGH CARDIOVASCULAR RISK Normal [facility] Comment on above: Performed By: #### C MP, LIPID, TSH #### [facility] [address] [address] [address] Caridad Canada LDL CALC NORMAL SEE BELOW Normal [facility] Comment on above: Result Comment: <100 mg/dl OPTIMAL 100 - 129 mg/dl NEAR OR ABOVE OPTIMAL 130 - 159 mg/dl BORDERLINE HIGH 160 - 189 mg/dl HIGH >190 mg/dl VERY HIGH Performed By: #### C MP, LIPID, TSH #### [facility] [address] [address] [address] Caridad Canada Triglyceride [Mass/Vol] 382 mg/dL Critically high <=150 [facility] Comment on above: Performed By: #### C MP, LIPID, TSH #### [facility] [address] [address] [address] Caridad Canada VLDL CALC 76.4 mg/dL Normal [facility] Comment on above: Performed By: #### C MP, LIPID, TSH #### [facility] [address] [address] [address] Caridad Canada PROF 14(COMP METB)on 022 Albumin [Mass/Vol] 3.6 g/dL Normal 3.4-5.0 [facility] Comment on above: Performed By: #### C MP, LIPID, TSH #### [facility] [address] [address] [address] Caridad Canada Albumin/Globulin [Mass ratio] 0.8 {ratio} Normal [facility] Comment on above: Performed By: #### C MP, LIPID, TSH #### [facility] [address] [address] [address] Caridad Canada ALP [Catalytic activity/Vol] 98 U/L Normal 46-116 [facility] Comment on above: Performed By: #### C MP, LIPID, TSH #### [facility] [address] [address] [address] Caridad Canada ALT [Catalytic activity/Vol] 53 U/L Normal 14-59 [facility] Comment on above: Performed By: #### C MP, LIPID, TSH #### [facility] [address] [address] [address] Caridad Canada Anion gap [Moles/Vol] 13.6 mmol/L Normal [facility] Comment on above: Performed By: #### C MP, LIPID, TSH #### [facility] [address] [address] [address] Caridad Canada AST [Catalytic activity/Vol] 28 U/L Normal 15-37 [facility] Comment on above: Performed By: #### C MP, LIPID, TSH #### [facility] [address] [address] [address] Caridad Canada Bilirubin [Mass/Vol] 0.4 mg/dL Normal 0.2-1.0 [facility] Comment on above: Performed By: #### C MP, LIPID, TSH #### [facility] [address] [address] [address] Caridad Canada Calcium [Mass/Vol] 9.2 mg/dL Normal 8.5-10.1 [facility] Comment on above: Performed By: #### C MP, LIPID, TSH #### [facility] [address] [address] [address] Caridad Canada Chloride [Moles/Vol] 99 mmol/L Normal 98-107 [facility] Comment on above: Performed By: #### C MP, LIPID, TSH #### [facility] [address] [address] [address] Caridad Canada CO2 [Moles/Vol] 29.8 mmol/L Normal 21.0-32.0 [facility] Comment on above: Performed By: #### C MP, LIPID, TSH #### [facility] [address] [place] [address] Dr. Caridad Canada Creatinine [Mass/Vol] 0.66 mg/dL Normal 0.55-1.02 [facility] Comment on above: Performed By: #### C MP, LIPID, TSH #### [facility] [address] [place] [address] Dr. Caridad Canada EGFR-AF CZECH >60 Normal >=60 [facility] Comment on above: Performed By: #### C MP, LIPID, TSH #### [facility] [address] [place] [address] Dr. Caridad Canada EGFR-NON AF CZECH >60 Normal >=60 [facility] Comment on above: Performed By: #### C MP, LIPID, TSH #### [facility] [address] [place] [address] Dr. Caridad Canada Globulin (S) [Mass/Vol] 4.3 g/dL Normal [facility] Comment on above: Performed By: #### C MP, LIPID, TSH #### [facility] [address] [place] [address] Dr. Caridad Canada Glucose [Mass/Vol] 301 mg/dL Critically high 74-106 [facility] Comment on above: Performed By: #### C MP, LIPID, TSH #### [facility] [address] [address] [address] Caridad Canada Potassium [Moles/Vol] 3.4 mmol/L Critically low 3.5-5.1 [facility] Comment on above: Performed By: #### C MP, LIPID, TSH #### [facility] [address] [place] [address] Dr. Caridad Canada Protein [Mass/Vol] 7.9 g/dL Normal 6.4-8.2 [facility] Comment on above: Performed By: #### C MP, LIPID, TSH #### [facility] [address] [place] [address] Dr. Caridad Canada Sodium [Moles/Vol] 139 mmol/L Normal 136-[address] [facility] Comment on above: Performed By: #### C MP, LIPID, TSH #### [facility] [address] [place] [address] Dr. Caridad Canada Urea nitrogen [Mass/Vol] 6.0 mg/dL Critically low 7.0-18.0 [facility] Comment on above: Performed By: #### C MP, LIPID, TSH #### [facility] [address] [place] [address] Dr. Caridad Canada Urea nitrogen/Creatinin e [Mass ratio] 9.1 mg/mg Normal [facility] Comment on above: Performed By: #### C MP, LIPID, TSH #### [facility] [address] [place] [address] Dr. Caridad Canada TSHon 10-24-2021 TSH 1.566 uIU/mL Normal 0.358-3.740 [facility] Comment on above: Performed By: #### C MP, LIPID, TSH #### [facility] [address] [place] [address] Dr. Caridad Canada OBSOLETEon 01-25-2021 OBSOLETE Refill (PAINMN) ----- NICHOLE SANDHU ([id number]) 1955 F Date Time Provider Department 01/25/21 [...] A DAY NEEDED FOR PAIN DIRECTED - thcswo-fwokjunp-twlvkrh (ZENPEP) 40,000-126,000- 168,000 unit delayed release capsule [...] mouth once daily. - blood sugar diagnostic ([employer] VERIO) test strip Use as instructed Problem [...] Encounter Status:Closed by JACEY CABRAL on 01/25/21 [facility] ANES POSTPROC EVALon 021 ANES POSTPROC EVAL HNO ID: [id number] Author: Jayce Chase DO Service: Anesthesiology Author Type: Anesthesiologist Type: Anesthesia Postprocedure Evaluation Filed: 08/31/2020 9:44 AM Note Text: POST ANESTHESIA EVALUATION NOTE : 1955 Procedure Summary Date: 08/31/20 Room / Location: ENDO04 / SP ENDO Anesthesia Start: 08 Anesthesia Stop: 900 Procedure: COLONOSCOPY WITH BIOPSY [...] August 31, 2020 TIME: 9:44 AM CSN: [id number] [facility] ANES PRE-OPon 08-31-2020 ANES PRE-OP HNO ID: [id number] Author: Jayce Chase DO Service: Anesthesiology Author [...] A DAY NEEDED FOR PAIN DIRECTED - gfqtkp-daviociq-anhmihv (ZENPEP) 40,000-126,000- 168,000 unit cpDR Take 2 [...] mouth once daily. - blood sugar diagnostic ([employer] VERIO) test strip Use as instructed I have interviewed and examined the patient. I have reviewed the medical record and/or the pre-anesthesia evaluation, pertinent labs, and test results. This contains updated information obtained within 48 hours of Surgery/Procedure. SIGNATURE: Chino Graves DO PATIENT NAME: Nichole Sandhu DATE: August 31, 2020 TIME: 7:27 AM CSN: [id number] [facility] CNCOon 08-31-2020 CNCO Letter Text [facility] HISTORY PHYSICALon HISTORY PHYSICAL HNO ID: [id number] Author: Chaz Benitez PA-C Service: Gastroenterology Author Type: Physician Quality Assurance Qa Lab Analyst Type: HANDP Filed: 08/31/2020 8:10 AM Note [...] is colonoscopy. Medication reconciliation list reviewed in [facility]. Past medical history, past surgical history, social history and family history reviewed and updated in [facility]. ALLERGIES Allergen Reactions - Ativan [Lorazepam] Other: [...] DATE: August 31, 2020 TIME: 7:28 AM [facility] NURSING PROGon 08-31-2020 NURSING PROG HNO ID: [id number] Author: Ericka Hughes RN Service: Gastroenterology Author Type: Registered Nurse Type: Nursing Progress Note Filed: 09/01/2020 10:56 AM Note Text: [facility] ENDOSCOPY POST PROCEDURE FOLLOW UP CALL [phone] (home) Date Phone Call Made: 09/01/2020 Attempt: [...] PATHOLOGYon 021 SURGICAL PATHOLOGY Specimen originated from [facility] Specimen #: [id number] Submitting Physician: JAYCE WORKMAN FINAL DIAGNOSIS 1. [...] in one cassette. Gross examination performed at [facility], [address] [place] [address] 08/31/2020 2:17:20 PM Date of Report: 09/01/2020 Date of Procedure: 08/31/2020 Date of Receipt: 08/31/2020 Submitted by: JAYCE WORKMAN Location: [facility] Diagnostic interpretation performed at [facility], [address] [place] [address]. CLIA Number: [id number] Normal [facility] NURSING PROGon 08-30-2020 NURSING PROG HNO ID: [id number] Author: Rosibel Aiken, RODRICK Service: ? Author Type: Registered Nurse Type: Nursing Progress Note Filed: 08/30/2020 2:11 PM Note Text: [facility] ENDOSCOPY PRE PROCEDURE CALL Diana. I'm calling from [facility] endoscopy to provide you with the [...] confirm the name and relationship of your utility worker driver. Breana Sandhu What is the best number for your utility worker driver to be reached at tomorrow for updates? [phone] At this time due to COVID precautions [...] to proceed. Are you familiar with where [facility] is located?yes Address [facility] Patient instructed to enter through the main hospital entrance off [address] through the revolving doors and check in at the main desk with your utility worker driver's license and insurance card. yes If anesthesia or sedation is being given: Patient instructed you must have an adult utility worker driver because you will not be able to work or drive for the rest of the day after your test.yes Patient instructed not bring any valuables, jewelry, or ponce and wear comfortable clothing. Do not wear makeup, lotion, or finger irish. yes Patient instructed: Do not eat or [...] given Any barriers to Patient learning (confusion? Plating Inspector needed?): Patient/Patient Charging Plug Placer responded appropriately on phone. Type of instruction given: [facility] Telephone (SPDIG) ----- NICHOLE SANDHU ([id number]) 1955 F Date Time Provider Department 08/18/20 JAYCE WORKMANIG During your visit today, we recorded the [...] instructed that they will need a designated utility worker driver on the day of the exam. [...] tongue Date Reviewed: 05/18/2020 Reviewed by: Pk Grday - Fully Assessed Reason for Visit: Outpatient Colonoscopy [482] Prescriptions as of 08/18/2020 - diclofenac (VOLTAREN) 1 % topical gel APPLY 2 GRAMS TO AFFECTED AREA TWICE A DAY NEEDED FOR PAIN DIRECTED - zghtyg-duadfuzc-vlxrdtt (ZENPEP) 40,000-126,000- 168,000 unit cpDR Take 2 [...] 40 mg by mouth once daily. - xtptig-vqjncjti-bqiarco (ZENPEP) 40,000-126,000- 168,000 unit cpDR Take 2 [...] mouth once daily. - blood sugar diagnostic ([employer]) test strip Use as instructed Problem List [...] Encounter Status:Closed by BERNARDA DELGADO on 08/18/20 [facility] Coding Summary.on 01-16-2018 Coding Summary. CODING DATE: 018 [facility] STATUS: Home (Routine DC) PAYOR: [facility] [place] [facility] DESCRIPTION 5571 Level 1 Imaging with [...] CphT Date Saved: 01/16/2018 07:44 am Normal [facility] Coding Summary.on 12-27-2017 Coding Summary. CODING DATE: 018 FINAL [facility] STATUS: Home (Routine DC) PAYOR: [facility] [place] ADMIT DX: REASON FOR VISIT DX: E61.1 [...] CphT Date Saved: 12/27/2017 02:09 pm Normal [facility] Auto Diffon 12-25-2017 Basophils/100 WBC (Bld) 0.2 % Normal 0.0-2.0 [facility] Comment on above: Order Comment: Order Added by Discern Expert. Performed By: #### 2 [id number], [id number], [id number], [id number], [id number] #### [facility] [address] [place] [address] Basophils/Leukocyt es Auto (Bld) [Pure # fraction] 0.0 E9/L Normal 0.0-0.2 [facility] Comment on above: Order Comment: Order Added by Discern Expert. Performed By: #### 2 [id number], [id number], [id number], [id number], [id number] #### [facility] [address] [place] [address] Eosinophils/100 WBC (Bld) 0.9 % Normal 0.0-8.0 [facility] Comment on above: Order Comment: Order Added by Discern Expert. Performed By: #### 2 605357, [id number], [id number], 9795021, [id number] #### [facility] [address] [place] [address] Eosinophils/Leukoc ytes Auto (Bld) [Pure # fraction] 0.1 E9/L Normal 0.0-0.5 [facility] Comment on above: Order Comment: Order Added by Discern Expert. Performed By: #### 2 061413, [id number], [id number], [id number], [id number] #### [facility] [address] [place] [address] Lymphocytes/100 WBC (Bld) 8.4 % Low 14.0-50.0 [facility] Comment on above: Order Comment: Order Added by Vin Expert. Performed By: #### 2 206190, [id number], [id number], 2844187, [id number] #### [facility] [address] [place] [address] Lymphocytes/Leukoc ytes Auto (Bld) [Pure # fraction] 1.3 E9/L Normal 1.0-4.0 [facility] Comment on above: Order Comment: Order Added by Vin Expert. Performed By: #### 2 673915, [id number], [id number], 8815496, [id number] #### [facility] [address] [place] [address] Monocytes/100 WBC (Bld) 6.8 % Normal 4.0-14.0 [facility] Comment on above: Order Comment: Order Added by Discern Expert. Performed By: #### 2 733700, [id number], [id number], 8971730, [id number] #### [facility] [address] [place] [address] Monocytes/Leukocyt es Auto (Bld) [Pure # fraction] 1.1 E9/L High 0.2-1.0 [facility] Comment on above: Order Comment: Order Added by Discern Expert. Performed By: #### 2 853761, [id number], 85811021, 5698482, 0179136 #### [facility] [address] [place] [address] Neutrophils/100 WBC (Bld) 83.7 % High 36.0-75.0 [facility] Comment on above: Order Comment: Order Added by Discern Expert. Performed By: #### 2 861650, [id number], 03331630, [id number], [id number] #### [facility] [address] [place] [address] Neutrophils/Leukoc ytes Auto (Bld) [Pure # fraction] 13.1 E9/L High 2.0-7.5 [facility] Comment on above: Order Comment: Order Added by Discern Expert. Performed By: #### 2 636989, [id number], 49329931, 0550897, 9571605 #### [facility] [address] [place] [address] CBC w/ Auto Diffon 8 Erythrocyte distribution width (RBC) [Ratio] 16.4 % High 10.9-14.2 [facility] Comment on above: Performed By: #### 2 159828, [id number], 62447654, 8335381, 7885124 #### [facility] [address] [place] [address] Hematocrit (Bld) [Volume fraction] 29.6 % Low 34.0-46.0 [facility] Comment on above: Performed By: #### 2 554013, 27227875, 59390440, 9010610, 8008701 #### [facility] [address] [place] [address] Hemoglobin (Bld) [Mass/Vol] 9.2 g/dL Low 12.0-16.0 [facility] Comment on above: Performed By: #### 2 326695, 33844696, 25681199, 2255124, 1561117 #### [facility] [address] [place] [address] MCH (RBC) [Entitic mass] 23.6 pg Low 27.0-34.0 [facility] Comment on above: Performed By: #### 2 312930, 25192000, 16840801, 3998352, 3581151 #### [facility] [address] [place] [address] MCHC (RBC) [Mass/Vol] 31.1 g/dL Low 31.4-39.3 [facility] Comment on above: Performed By: #### 2 716464, 06733064, 09744501, 3805891, 8314068 #### [facility] [address] [place] [address] MCV (RBC) [Entitic vol] 75.9 fL Low 80.0-100.0 [facility] Comment on above: Performed By: #### 2 835004, 62700111, 38411250, 9499026, 4848293 #### [facility] [address] [place] [address] Platelet mean volume (Bld) [Entitic vol] 10.2 fL Normal 6.4-10.8 [facility] Comment on above: Performed By: #### 2 920994, [id number], 88411223, 1004255, 2227368 #### [facility] [address] [place] [address] Platelets (Bld) [#/Vol] 375.0 E9/L Normal 150.0-500.0 [facility] Comment on above: Performed By: #### 2 598187, 47875534, 49502610, 2429167, 0186063 #### [facility] [address] [place] [address] RBC (Bld) [#/Vol] 3.9 E12/L Low 4.3-5.9 [facility] Comment on above: Performed By: #### 2 377721, 56927600, 71191406, 9747712, 6102497 #### [facility] [address] [place] [address] WBC corrected for nucl RBC Auto (Bld) [#/Vol] 15.6 E9/L High 4.0-11.0 [facility] Comment on above: Performed By: #### 2 446778, 57014188, 12698333, 6936283, 2097177 #### [facility] [address] [place] [address] CMPon 12-25-2017 Albumin [Mass/Vol] 0.6 g/dL Low 1.1-2.2 [facility] Comment on above: Performed By: #### 2 552850, 99634261, 28483014, 0357213, 6289187 #### [facility] [address] [place] [address] Albumin [Mass/Vol] 2.9 g/dL Low 3.3-5.0 [facility] Comment on above: Performed By: #### 2 088655, 45344708, 00313668, 3537337, 4211344 #### [facility] [address] [place] [address] ALP [Catalytic activity/Vol] 62 Int._Unit/L Normal 21-98 [facility] Comment on above: Performed By: #### 2 573377, 22347190, 57608718, 7155667, 6385315 #### [facility] [address] [place] [address] ALT No additional P-5'-P [Catalytic activity/Vol] 12 Int._Unit/L Normal 6-46 [facility] Comment on above: Performed By: #### 2 773549, 13433070, 76649502, 8534209, 2021658 #### [facility] [address] [place] [address] Anion gap [Moles/Vol] 16 mmol/L Normal 6-16 [facility] Comment on above: Performed By: #### 2 739405, 11133670, 98324481, 8517439, 3297211 #### [facility] [address] [place] [address] AST [Catalytic activity/Vol] 19 Int._Unit/L Normal 5-43 [facility] Comment on above: Performed By: #### 2 067066, 65168275, 18964946, 9104090, 6888710 #### [facility] [address] [place] [address] Bilirubin [Mass/Vol] 0.5 mg/dL Normal 0.0-1.1 [facility] Comment on above: Performed By: #### 2 741774, 23436386, 29660728, 4945543, 3035387 #### [facility] [address] [place] [address] Calcium [Mass/Vol] 8.9 mg/dL Normal 8.9-11.1 [facility] Comment on above: Performed By: #### 2 800550, 98207875, 78877714, 1138028, 5417894 #### [facility] [address] [place] [address] Chloride [Moles/Vol] 98 mmol/L Low 101-111 [facility] Comment on above: Performed By: #### 2 488340, 86383481, 34748451, 3365177, 6591422 #### [facility] [address] [place] [address] CO2 [Moles/Vol] 26 mmol/L Normal 21-31 [facility] Comment on above: Performed By: #### 2 395755, 77038609, 83912676, 0856230, 4431254 #### [facility] [address] [place] [address] Creatinine [Mass/Vol] 0.5 mg/dL Normal 0.5-1.3 [facility] Comment on above: Performed By: #### 2 999039, 16210727, 71132205, 1893332, 8694146 #### [facility] [address] [place] [address] Globulin (S) [Mass/Vol] 4.8 g/dL High 1.4-4.0 [facility] Comment on above: Performed By: #### 2 921917, 04598788, 36007745, 5552008, 0379285 #### [facility] [address] [place] [address] Glucose [Mass/Vol] 105 mg/dL Normal 55-199 [facility] Comment on above: Result Comment: If t his glucose result represents a fasting glucose, interpretation should refer to the following reference range: 55-99 mg/dL Performed By: #### 2 847317, 97958977, 14671403, 5707978, 5042275 #### [facility] [address] [place] [address] Potassium [Moles/Vol] 3.7 mmol/L Normal 3.5-5.3 [facility] Comment on above: Performed By: #### 2 274355, 36081046, 11892005, 3462512, 9776887 #### [facility] [address] [place] [address] Protein [Mass/Vol] 7.7 g/dL Normal 6.0-7.8 [facility] Comment on above: Performed By: #### 2 687341, 59124546, 90320735, 6946991, 2000113 #### [facility] [address] [place] [address] Sodium [Moles/Vol] 136 mmol/L Normal 135-145 [facility] Comment on above: Performed By: #### 2 387928, 25044388, 49137250, 7178151, 0060361 #### [facility] [address] [place] [address] Urea nitrogen [Mass/Vol] 9 mg/dL Normal 5-21 [facility] Comment on above: Performed By: #### 2 830397, 90371706, 93139451, 1848555, 8389552 #### [facility] [address] [place] [address] Urea nitrogen/Creatinin e [Mass ratio] 18 No Units Normal 10-20 [facility] Comment on above: Performed By: #### 2 642869, 31535428, 46447241, 5053649, 3968595 #### [facility] [address] [place] [address] Morphon 12-25-2017 Anisocytosis Ql (Bld) Present Normal [facility] Comment on above: Order Comment: Order Added by Discern Expert. Performed By: #### 2 348177, 99485710, 89368313, 4012273, 8718776 #### [facility] [address] [place] [address] Morphology Víctor (Bld) [Interp] See Morphology Normal [facility] Comment on above: Order Comment: Order Added by Discern Expert. Performed By: #### 2 870367, 48299662, 43062327, 9612852, 8088622 #### [facility] [address] [place] [address] Platelets Large LM Ql (Bld) Present Normal [facility] Comment on above: Order Comment: Order Added by Discern Expert. Performed By: #### 2 755195, 48345892, 11589192, 0713472, 2139715 #### [facility] [address] [place] [address] eGFRon 12-25-2017 GFR/1.73 sq M predicted among blacks MDRD (S/P/Bld) [Vol rate/Area] mL/min/{1.73_m2} Normal >=59 [facility] Comment on above: Order Comment: Order added by Discern Expert. Result Comment: eGFR is race adjusted. AA=. Performed By: #### 2 381836, 74175186, 12046046, 4360479, 0974916 #### [facility] [address] [place] [address] GFR/1.73 sq M predicted among non-blacks MDRD (S/P/Bld) [Vol rate/Area] mL/min/{1.73_m2} Normal >=59 [facility] Comment on above: Order Comment: Order added by Discern Expert. Result Comment: [employer] k[place] kidney disease could be indicated at eGFR's of less than 60 mL/min/1.73m2. Kidney failure is indicated at less than 15 mL/min/1.73m2. Performed By: #### 2 720385, 94010480, 65892080, 0472763, 2073569 #### [facility] [address] [place] [address] Coding Summary.on 12-18-2017 Coding Summary. CODING DATE: 018 FINAL [facility] STATUS: Home (Routine DC) PAYOR: [facility] [employer] DESCRIPTION 5571 Level 1 Imaging with [...] [place] Date Saved: 12/18/2017 12:08 pm Normal [facility] Creatinineon 12-17-2017 Creatinine [Mass/Vol] 0.5 mg/dL Normal 0.5-1.3 [facility] Comment on above: Performed By: #### 1 2429401, 3670191 #### [facility] [address] [place] [address] eGFRon 12-17-2017 GFR/1.73 sq M predicted among blacks MDRD (S/P/Bld) [Vol rate/Area] mL/min/{1.73_m2} Normal >=59 [facility] Comment on above: Order Comment: Order added by Discern Expert. Result Comment: eGFR is race adjusted. AA=. Performed By: #### 1 1771219, 4015833 #### [facility] [address] [place] [address] GFR/1.73 sq M predicted among non-blacks MDRD (S/P/Bld) [Vol rate/Area] mL/min/{1.73_m2} Normal >=59 [facility] Comment on above: Order Comment: Order added by Discern Expert. Result Comment: [employer] k[place] kidney disease could be indicated at eGFR's of less than 60 mL/min/1.73m2. Kidney failure is indicated at less than 15 mL/min/1.73m2. Performed By: #### 1 6866576, 8924060 #### [facility] [address] [place] [address] Cult, Bloodon 11-08-2017 Cult, Blood Specimen Description .BLOOD Special Requests LT HAND Culture NO GROWTH 6 DAYS Report Status FINAL 11/08/2017 [facility] Comment on above: Performed By: #### L IP, LACWB, IOCAL, PT, CDP, CHANDU, PTT, LIPR, CMPX ####[address] [place] [address] Cult,Bloodon 11-08-2017 Cult,Blood Specimen Description .BLOOD Special Requests NOT REPORTED Culture NO GROWTH 6 DAYS Report Status FINAL 11/08/2017 [facility] Comment on above: Performed By: #### L IP, LACWB, IOCAL, PT, CDP, CHANDU, PTT, LIPR, CMPX ####[address] [address] Plan of Careon 11-04-2017 HIM IP Note OR Vegetables Cook Normal [facility] Basic Metabolic Profon 11-03 (cont.) [facility] Comment on above: Result Comment: Aver age GFR for 60-69 years old: 85 mL/min/1.73sq mChronic Kidney Disease: <60 mL/min/1.73sq mKidney failure: <15 mL/min/1.73sq meGFR calculated using average adult body mass. Additional eGFR calculator available at:http://www.[employer]ut[employer].com/multiple_crcl_2012.htm Performed By: #### L IP, LACWB, IOCAL, PT, CDP, CHANDU, PTT, LIPR, CMPX ####[facility] [id number] [place] [address] Anion gap 3 molar conc 9 mmol/L Normal 9-17 [facility] Comment on above: Performed By: #### L IP, LACWB, IOCAL, PT, CDP, CHANDU, PTT, LIPR, CMPX ####[address] [address] Calcium mass conc 8.3 mg/dL Low 8.6-10.4 [facility] Comment on above: Performed By: #### L IP, LACWB, IOCAL, PT, CDP, CHANDU, PTT, LIPR, CMPX ####[address] [address] Chloride molar conc 111 mmol/L High 98-107 [facility] Comment on above: Performed By: #### L IP, LACWB, IOCAL, PT, CDP, CHANDU, PTT, LIPR, CMPX ####[address] [address] CO2 molar conc 26 mmol/L Normal 20-31 [facility] Comment on above: Performed By: #### L IP, LACWB, IOCAL, PT, CDP, CHANDU, PTT, LIPR, CMPX ####[address] [address] Creatinine mass conc 0.84 mg/dL Normal 0.50-0.90 [facility] Comment on above: Performed By: #### L IP, LACWB, IOCAL, PT, CDP, CHANDU, PTT, LIPR, CMPX ####[address] [address] GFR, Amer >60 Normal >60 [facility] Comment on above: Performed By: #### L IP, LACWB, IOCAL, PT, CDP, CHANDU, PTT, LIPR, CMPX ####[address] [address] GFR,non Amer >60 Normal >60 [facility] Comment on above: Performed By: #### L IP, LACWB, IOCAL, PT, CDP, CHANDU, PTT, LIPR, CMPX ####[facility] [id number] [place] [address] Glucose mass conc 124 mg/dL High 70-99 [facility] Comment on above: Performed By: #### L IP, LACWB, IOCAL, PT, CDP, CHANDU, PTT, LIPR, CMPX ####[facility] [id number] [place] [address] Potassium molar conc 4.2 mmol/L Normal 3.7-5.3 [facility] Comment on above: Performed By: #### L IP, LACWB, IOCAL, PT, CDP, CHANDU, PTT, LIPR, CMPX ####[address] [address] Sodium molar conc 146 mmol/L High 135-144 [facility] Comment on above: Performed By: #### L IP, LACWB, IOCAL, PT, CDP, CHANDU, PTT, LIPR, CMPX ####[address] [place] [address] Urea nitrogen mass conc 25 mg/dL High 8-23 [facility] Comment on above: Performed By: #### L IP, LACWB, IOCAL, PT, CDP, CHANDU, PTT, LIPR, CMPX ####[facility] [place] [address] BUN/CRE Ratio NOT REPORTED Normal 9-20 [facility] Comment on above: Performed By: #### L IP, LACWB, IOCAL, PT, CDP, CHANDU, PTT, LIPR, CMPX ####[address] [address] Staging: NOT REPORTED Normal [facility] Comment on above: Performed By: #### L IP, LACWB, IOCAL, PT, CDP, CHANDU, PTT, LIPR, CMPX ####[place] [address] CBC with Diffon 11-03-2017 Abs. Basophil 0.00 k/uL Normal 0.0-0.2 [facility] Comment on above: Performed By: #### L IP, LACWB, IOCAL, PT, CDP, CHANDU, PTT, LIPR, CMPX ####[address] [address] Abs.Imm.Granulocyt e 0.33 k/uL High 0.00-0.30 [facility] Comment on above: Performed By: #### L IP, LACWB, IOCAL, PT, CDP, CHANDU, PTT, LIPR, CMPX ####[place] [address] Abs.Neutrophil (Seg) 13.12 k/uL High 1.8-7.7 [facility] Comment on above: Performed By: #### L IP, LACWB, IOCAL, PT, CDP, CHANDU, PTT, LIPR, CMPX ####[place] [address] Basophils/100 WBC Auto (Bld) 0 % Normal 0-2 [facility] Comment on above: Performed By: #### L IP, LACWB, IOCAL, PT, CDP, CHANDU, PTT, LIPR, CMPX ####[place] [address] Eosinophils Auto #/vol (Bld) 0.00 10*3/uL Normal 0.0-0.4 [facility] Comment on above: Performed By: #### L IP, LACWB, IOCAL, PT, CDP, CHANDU, PTT, LIPR, CMPX ####[address] [address] Eosinophils/100 WBC Auto (Bld) 0 % Low 1-4 [facility] Comment on above: Performed By: #### L IP, LACWB, IOCAL, PT, CDP, CHANDU, PTT, LIPR, CMPX ####[place] [address] Immature granulocytes #/vol (Bld) 2 % High 0 [facility] Comment on above: Performed By: #### L IP, LACWB, IOCAL, PT, CDP, CHANDU, PTT, LIPR, CMPX ####[place] [address] Lymphocytes Auto #/vol (Bld) 1.49 10*3/uL Normal 1.0-4.8 [facility] Comment on above: Performed By: #### L IP, LACWB, IOCAL, PT, CDP, CHANDU, PTT, LIPR, CMPX ####[place] [address] Lymphocytes/100 WBC Auto (Bld) 9 % Low 24-44 [facility] Comment on above: Performed By: #### L IP, LACWB, IOCAL, PT, CDP, CHANDU, PTT, LIPR, CMPX ####[place] [address] Monocytes Auto #/vol (Bld) 1.66 10*3/uL High 0.1-0.8 [facility] Comment on above: Performed By: #### L IP, LACWB, IOCAL, PT, CDP, CHANDU, PTT, LIPR, CMPX ####[address] [address] Monocytes/100 WBC Auto (Bld) 10 % High 1-7 [facility] Comment on above: Performed By: #### L IP, LACWB, IOCAL, PT, CDP, CHANDU, PTT, LIPR, CMPX ####[address] [address] Morphology Interp Víctor (Bld) ANISOCYTOSIS PRESENT Normal [facility] Comment on above: Result Comment: INCR EASED BANDS PRESENTTOXIC GRANULATION PRESENT Performed By: #### L IP, LACWB, IOCAL, PT, CDP, CHANDU, PTT, LIPR, CMPX ####[address] [address] Neutrophil (Seg) 79 % High 36-66 [facility] Comment on above: Performed By: #### L IP, LACWB, IOCAL, PT, CDP, CHANDU, PTT, LIPR, CMPX ####[address] [address] Erythrocyte distribution width Auto Ratio (RBC) 15.1 % High 11.8-14.4 [facility] Comment on above: Performed By: #### L IP, LACWB, IOCAL, PT, CDP, CHANDU, PTT, LIPR, CMPX ####[address] [address] Hematocrit Auto Volume Fraction (Bld) 35.4 % Low 36.3-47.1 [facility] Comment on above: Performed By: #### L IP, LACWB, IOCAL, PT, CDP, CHANDU, PTT, LIPR, CMPX ####[address] [address] Hemoglobin mass conc (Bld) 10.6 g/dL Low 11.9-15.1 [facility] Comment on above: Performed By: #### L IP, LACWB, IOCAL, PT, CDP, CHANDU, PTT, LIPR, CMPX ####[address] [address] MCH Auto Entitic mass (RBC) 26.3 pg Normal 25.2-33.5 [facility] Comment on above: Performed By: #### L IP, LACWB, IOCAL, PT, CDP, CHANDU, PTT, LIPR, CMPX ####[address] [address] MCHC Auto mass conc (RBC) 29.9 g/dL Normal 28.4-34.8 [facility] Comment on above: Performed By: #### L IP, LACWB, IOCAL, PT, CDP, CHANDU, PTT, LIPR, CMPX ####[address] [address] MCV Auto Entitic volume (RBC) 87.8 fL Normal 82.6-102.9 [facility] Comment on above: Performed By: #### L IP, LACWB, IOCAL, PT, CDP, CHANDU, PTT, LIPR, CMPX ####[address] [address] NRBC Automated 0.1 per 100 WBC High 0.0 [facility] Comment on above: Performed By: #### L IP, LACWB, IOCAL, PT, CDP, CHANDU, PTT, LIPR, CMPX ####[address] [address] Platelet mean volume Auto Entitic volume (Bld) 11.4 fL Normal 8.1-13.5 [facility] Comment on above: Performed By: #### L IP, LACWB, IOCAL, PT, CDP, CHANDU, PTT, LIPR, CMPX ####[address] [address] Platelets Auto #/vol (Bld) 267 10*3/uL Normal 138-453 [facility] Comment on above: Performed By: #### L IP, LACWB, IOCAL, PT, CDP, CHANDU, PTT, LIPR, CMPX ####[address] [address] RBC Auto #/vol (Bld) 4.03 10*6/uL Normal 3.95-5.11 [facility] Comment on above: Performed By: #### L IP, LACWB, IOCAL, PT, CDP, CHANDU, PTT, LIPR, CMPX ####[address] [address] WBC Auto #/vol (Bld) 16.6 10*3/uL High 3.5-11.3 [facility] Comment on above: Performed By: #### L IP, LACWB, IOCAL, PT, CDP, CHANDU, PTT, LIPR, CMPX ####[place] [address] Auto Diff Performed NOT REPORTED Normal [facility] Comment on above: Performed By: #### L IP, LACWB, IOCAL, PT, CDP, CHANDU, PTT, LIPR, CMPX ####[address] [address] Platelets Auto #/vol (Bld) NOT REPORTED Normal [facility] Comment on above: Performed By: #### L IP, LACWB, IOCAL, PT, CDP, CHANDU, PTT, LIPR, CMPX ####[place] [address] RBC morphology finding Nom (Bld) NOT REPORTED Normal [facility] Comment on above: Performed By: #### L IP, LACWB, IOCAL, PT, CDP, CHANDU, PTT, LIPR, CMPX ####[address] [address] WBC Morphology NOT REPORTED Normal [facility] Comment on above: Performed By: #### L IP, LACWB, IOCAL, PT, CDP, CHANDU, PTT, LIPR, CMPX ####[address] [address] Abs. Basophil 0.00 k/uL Normal 0.0-0.2 [facility] Comment on above: Performed By: #### L IP, LACWB, IOCAL, PT, CDP, CHANDU, PTT, LIPR, CMPX ####[place] [address] Abs.Imm.Granulocyt e 0.16 k/uL Normal 0.00-0.30 [facility] Comment on above: Performed By: #### L IP, LACWB, IOCAL, PT, CDP, CHANDU, PTT, LIPR, CMPX ####[place] [address] Abs.Neutrophil (Seg) 13.34 k/uL High 1.8-7.7 [facility] Comment on above: Performed By: #### L IP, LACWB, IOCAL, PT, CDP, CHANDU, PTT, LIPR, CMPX ####[place] [address] Basophils/100 WBC Auto (Bld) 0 % Normal 0-2 [facility] Comment on above: Performed By: #### L IP, LACWB, IOCAL, PT, CDP, CHANDU, PTT, LIPR, CMPX ####[place] [address] Eosinophils Auto #/vol (Bld) 0.00 10*3/uL Normal 0.0-0.4 [facility] Comment on above: Performed By: #### L IP, LACWB, IOCAL, PT, CDP, CHANDU, PTT, LIPR, CMPX ####[place] [address] Eosinophils/100 WBC Auto (Bld) 0 % Low 1-4 [facility] Comment on above: Performed By: #### L IP, LACWB, IOCAL, PT, CDP, CHANDU, PTT, LIPR, CMPX ####[address] [address] Immature granulocytes #/vol (Bld) 1 % High 0 [facility] Comment on above: Performed By: #### L IP, LACWB, IOCAL, PT, CDP, CHANDU, PTT, LIPR, CMPX ####[address] [place] [address] Lymphocytes Auto #/vol (Bld) 1.10 10*3/uL Normal 1.0-4.8 [facility] Comment on above: Performed By: #### L IP, LACWB, IOCAL, PT, CDP, CHANDU, PTT, LIPR, CMPX ####[address] [place] [address] Lymphocytes/100 WBC Auto (Bld) 7 % Low 24-44 [facility] Comment on above: Performed By: #### L IP, LACWB, IOCAL, PT, CDP, CHANDU, PTT, LIPR, CMPX ####[address] [address] Monocytes Auto #/vol (Bld) 1.10 10*3/uL High 0.1-0.8 [facility] Comment on above: Performed By: #### L IP, LACWB, IOCAL, PT, CDP, CHANDU, PTT, LIPR, CMPX ####[address] [place] [address] Monocytes/100 WBC Auto (Bld) 7 % Normal 1-7 [facility] Comment on above: Performed By: #### L IP, LACWB, IOCAL, PT, CDP, CHANDU, PTT, LIPR, CMPX ####[address] [place] [address] Morphology Interp Víctor (Bld) INCREASED BANDS PRESENT Normal [facility] Comment on above: Result Comment: TOXI C GRANULATION PRESENTANISOCYTOSIS PRESENT Performed By: #### L IP, LACWB, IOCAL, PT, CDP, CHANDU, PTT, LIPR, CMPX ####[address] [address] Neutrophil (Seg) 85 % High 36-66 [facility] Comment on above: Performed By: #### L IP, LACWB, IOCAL, PT, CDP, CHANDU, PTT, LIPR, CMPX ####[address] [place] [address] Erythrocyte distribution width Auto Ratio (RBC) 15.0 % High 11.8-14.4 [facility] Comment on above: Performed By: #### L IP, LACWB, IOCAL, PT, CDP, CHANDU, PTT, LIPR, CMPX ####[address] [address] Hematocrit Auto Volume Fraction (Bld) 35.5 % Low 36.3-47.1 [facility] Comment on above: Performed By: #### L IP, LACWB, IOCAL, PT, CDP, CHANDU, PTT, LIPR, CMPX ####[address] [address] Hemoglobin mass conc (Bld) 10.8 g/dL Low 11.9-15.1 [facility] Comment on above: Performed By: #### L IP, LACWB, IOCAL, PT, CDP, CHANDU, PTT, LIPR, CMPX ####[address] [address] MCH Auto Entitic mass (RBC) 26.5 pg Normal 25.2-33.5 [facility] Comment on above: Performed By: #### L IP, LACWB, IOCAL, PT, CDP, CHANDU, PTT, LIPR, CMPX ####[address] [address] MCHC Auto mass conc (RBC) 30.4 g/dL Normal 28.4-34.8 [facility] Comment on above: Performed By: #### L IP, LACWB, IOCAL, PT, CDP, CHANDU, PTT, LIPR, CMPX ####[address] [address] MCV Auto Entitic volume (RBC) 87.2 fL Normal 82.6-102.9 [facility] Comment on above: Performed By: #### L IP, LACWB, IOCAL, PT, CDP, CHANDU, PTT, LIPR, CMPX ####[place] [address] NRBC Automated 0.0 per 100 WBC Normal 0.0 [facility] Comment on above: Performed By: #### L IP, LACWB, IOCAL, PT, CDP, CHANDU, PTT, LIPR, CMPX ####[place] [address] Platelet mean volume Auto Entitic volume (Bld) 11.7 fL Normal 8.1-13.5 [facility] Comment on above: Performed By: #### L IP, LACWB, IOCAL, PT, CDP, CHANDU, PTT, LIPR, CMPX ####[place] [address] Platelets Auto #/vol (Bld) 260 10*3/uL Normal 138-453 [facility] Comment on above: Performed By: #### L IP, LACWB, IOCAL, PT, CDP, CHANDU, PTT, LIPR, CMPX ####[address] [address] RBC Auto #/vol (Bld) 4.07 10*6/uL Normal 3.95-5.11 [facility] Comment on above: Performed By: #### L IP, LACWB, IOCAL, PT, CDP, CHANDU, PTT, LIPR, CMPX ####[address] [address] WBC Auto #/vol (Bld) 15.7 10*3/uL High 3.5-11.3 [facility] Comment on above: Performed By: #### L IP, LACWB, IOCAL, PT, CDP, CHANDU, PTT, LIPR, CMPX ####[address] [address] Auto Diff Performed NOT REPORTED Normal [facility] Comment on above: Performed By: #### L IP, LACWB, IOCAL, PT, CDP, CHANDU, PTT, LIPR, CMPX ####[address] [address] Platelets Auto #/vol (Bld) NOT REPORTED Normal [facility] Comment on above: Performed By: #### L IP, LACWB, IOCAL, PT, CDP, CHANDU, PTT, LIPR, CMPX ####[address] [address] RBC morphology finding Nom (Bld) NOT REPORTED Normal [facility] Comment on above: Performed By: #### L IP, LACWB, IOCAL, PT, CDP, CHANDU, PTT, LIPR, CMPX ####[address] [address] WBC Morphology NOT REPORTED Normal [facility] Comment on above: Performed By: #### L IP, LACWB, IOCAL, PT, CDP, CHANDU, PTT, LIPR, CMPX ####[address] [address] [address] ABDOMEN PELVIS W IV CONTR Sukumar [...] by:VIRGIL Woodsigned by:Abhishek Cat MD11/03/inal result Normal [facility] Calcium, Ionicon 11-03-2017 Calcium mass conc 1.21 mmol/L Normal 1.13-1.33 [facility] Comment on above: Performed By: #### L IP, LACWB, IOCAL, PT, CDP, CHANDU, PTT, LIPR, CMPX ####[facility] [address] [place] [address] Comp Metabolic Pr/rfx MGon 0 11-03-2017 (cont.) Normal [facility] Comment on above: Result Comment: Aver age GFR for 60-69 years old: 85 mL/min/1.73sq mChronic Kidney Disease: <60 mL/min/1.73sq mKidney failure: <15 mL/min/1.73sq meGFR calculated using average adult body mass. Additional eGFR calculator available at:http://www.[employer]/multiple_crcl_2012.htm Performed By: #### L IP, LACWB, IOCAL, PT, CDP, CHANDU, PTT, LIPR, CMPX ####[address] [place] [address] Albumin mass conc 2.3 g/dL Low 3.5-5.2 [facility] Comment on above: Performed By: #### L IP, LACWB, IOCAL, PT, CDP, CHANDU, PTT, LIPR, CMPX ####[facility] [place] [address] Albumin/Globulin mass ratio 0.7 {ratio} Low 1.0-2.5 [facility] Comment on above: Performed By: #### L IP, LACWB, IOCAL, PT, CDP, CHANDU, PTT, LIPR, CMPX ####[address] [place] [address] Alkaline Phos 84 U/L Normal 35-104 [facility] Comment on above: Performed By: #### L IP, LACWB, IOCAL, PT, CDP, CHANDU, PTT, LIPR, CMPX ####[facility] [place] [address] ALT enzyme act/vol 44 U/L High 5-33 [facility] Comment on above: Performed By: #### L IP, LACWB, IOCAL, PT, CDP, CHANDU, PTT, LIPR, CMPX ####[address] [place] [address] Anion gap 3 molar conc 12 mmol/L Normal 9-17 [facility] Comment on above: Performed By: #### L IP, LACWB, IOCAL, PT, CDP, CHANDU, PTT, LIPR, CMPX ####[address] [place] [address] AST enzyme act/vol 43 U/L High <32 [facility] Comment on above: Performed By: #### L IP, LACWB, IOCAL, PT, CDP, CHANDU, PTT, LIPR, CMPX ####[address] [address] Bilirubin Ql (U) 0.51 mg/dL Normal 0.3-1.2 [facility] Comment on above: Performed By: #### L IP, LACWB, IOCAL, PT, CDP, CHANDU, PTT, LIPR, CMPX ####[address] [address] Calcium mass conc 8.3 mg/dL Low 8.6-10.4 [facility] Comment on above: Performed By: #### L IP, LACWB, IOCAL, PT, CDP, CHANDU, PTT, LIPR, CMPX ####[address] [address] Chloride molar conc 106 mmol/L Normal 98-107 [facility] Comment on above: Performed By: #### L IP, LACWB, IOCAL, PT, CDP, CHANDU, PTT, LIPR, CMPX ####[address] [place] [address] CO2 molar conc 23 mmol/L Normal 20-31 [facility] Comment on above: Performed By: #### L IP, LACWB, IOCAL, PT, CDP, CHANDU, PTT, LIPR, CMPX ####[address] [place] [address] Creatinine mass conc 0.90 mg/dL Normal 0.50-0.90 [facility] Comment on above: Performed By: #### L IP, LACWB, IOCAL, PT, CDP, CHANDU, PTT, LIPR, CMPX ####[address] [address] GFR, Amer >60 Normal >60 [facility] Comment on above: Performed By: #### L IP, LACWB, IOCAL, PT, CDP, CHANDU, PTT, LIPR, CMPX ####[address] [place] [address] GFR,non Amer >60 Normal >60 [facility] Comment on above: Performed By: #### L IP, LACWB, IOCAL, PT, CDP, CHANDU, PTT, LIPR, CMPX ####[facility] [address] [place] [address] Glucose mass conc 151 mg/dL High 70-99 [facility] Comment on above: Performed By: #### L IP, LACWB, IOCAL, PT, CDP, CHANDU, PTT, LIPR, CMPX ####[address] [address] Potassium molar conc 3.8 mmol/L Normal 3.7-5.3 [facility] Comment on above: Performed By: #### L IP, LACWB, IOCAL, PT, CDP, CHANDU, PTT, LIPR, CMPX ####[address] [place] [address] Protein mass conc 5.7 g/dL Low 6.4-8.3 [facility] Comment on above: Performed By: #### L IP, LACWB, IOCAL, PT, CDP, CHANDU, PTT, LIPR, CMPX ####[facility] [address] [place] [address] Sodium molar conc 141 mmol/L Normal 135-144 [facility] Comment on above: Performed By: #### L IP, LACWB, IOCAL, PT, CDP, CHANDU, PTT, LIPR, CMPX ####[address] [place] [address] Urea nitrogen mass conc 26 mg/dL High 8-23 [facility] Comment on above: Performed By: #### L IP, LACWB, IOCAL, PT, CDP, CHANDU, PTT, LIPR, CMPX ####[facility] [address] [place] [address] BUN/CRE Ratio NOT REPORTED Normal 11-01 [facility] Comment on above: Performed By: #### L IP, LACWB, IOCAL, PT, CDP, CHANDU, PTT, LIPR, CMPX ####[facility] [address] [place], [place] [id number] Staging: NOT REPORTED Normal [facility] Comment on above: Performed By: #### L IP, LACWB, IOCAL, PT, CDP, CHANDU, PTT, LIPR, CMPX ####[facility] [address] [place], [place] [id number] Cult,Urine,Cathon 11-03-2017 Cult,Urine,Cath Specimen Description .CATHETERIZED URINE Special Requests NOT REPORTED Culture NO GROWTH Report Status FINAL 11/02/2017 Normal [facility] Comment on above: Performed By: #### L IP, LACWB, IOCAL, PT, CDP, CHANDU, PTT, LIPR, CMPX ####[facility] [address] [place], [place] [id number] Discharge Summaryon 11-04-19 18 HIM IP Note OR Vegetables Cook Normal [facility] Plan of Careon 11-03-2017 HIM IP Note OR Vegetables Cook Normal [facility] HIM IP Note OR Vegetables Cook Normal [facility] Progress Noteon 11-03-2017 HIM IP Note OR Vegetables Cook Normal [facility] HIM IP Note OR Vegetables Cook Normal [facility] HIM IP Note OR Vegetables Cook Normal [facility] HIM IP Note OR Vegetables Cook Normal [facility] XR ABDOMEN (KUB) (SINGLE AP VIEW)on 11-03-2017 XR ABDOMEN (KUB) (SINGLE AP VIEW) EXAMINATION:SINGLE SUPINE XRAY VIEW(S) OF THE ABDOMEN11/03/2017 8:42 amCOMPARISON:CT abdomen pelvis from 10/30/2017HISTORY:JOE [employer] SYSTEM PROVIDED HISTORY: reeval ileusTECHNOLOGIST PROVIDED HISTORY:reeval [id number] female; re-evaluate ileusFINDINGS:Portable supine view of the abdomen.Enteric tube traverses the GE junction with distal tip overlying the midmidline abdomen, likely within the body of the stomach. Blunting of the leftcostophrenic angle may represent chronic pleural thickening versus smallleft-sided pleural effusion. Stable left basilar opacity, atelectasis,infiltrate, or mild scarring.quality assurance monitor body leads overlie the abdomen. Mild diffuse degenerative [...] by:VIRGIL Gutierrezigned by:Braeden Chavez MD11/03/17inal result Normal [facility] APTTon 11-02-2017 aPTT Coag time (Bld) 27.1 s Normal 20.5-30.5 [facility] Comment on above: Performed By: #### L IP, LACWB, IOCAL, PT, CDP, CHANDU, PTT, LIPR, CMPX ####[address] [place] [address] Amylaseon 11-02-2017 Amylase enzyme act/vol 104 U/L High 28-100 [facility] Comment on above: Performed By: #### L IP, LACWB, IOCAL, PT, CDP, CHANDU, PTT, LIPR, CMPX ####[address] [place] [address] CBC with Diffon 11-02-2017 Abs. Basophil 0.00 k/uL Normal 0.00-0.20 [facility] Comment on above: Performed By: #### L IP, LACWB, IOCAL, PT, CDP, CHANDU, PTT, LIPR, CMPX ####[address] [address] Abs.Imm.Granulocyt e 0.14 k/uL Normal 0.00-0.30 [facility] Comment on above: Performed By: #### L IP, LACWB, IOCAL, PT, CDP, CHANDU, PTT, LIPR, CMPX ####[address] [address] Abs.Neutrophil (Seg) 11.01 k/uL High 1.50-8.10 [facility] Comment on above: Performed By: #### L IP, LACWB, IOCAL, PT, CDP, CHANDU, PTT, LIPR, CMPX ####[address] [address] Basophils/100 WBC Auto (Bld) 0 % Normal 0-2 [facility] Comment on above: Performed By: #### L IP, LACWB, IOCAL, PT, CDP, CHANDU, PTT, LIPR, CMPX ####[address] [address] Eosinophils Auto #/vol (Bld) 0.00 10*3/uL Normal 0.00-0.44 [facility] Comment on above: Performed By: #### L IP, LACWB, IOCAL, PT, CDP, CHANDU, PTT, LIPR, CMPX ####[place] [address] Eosinophils/100 WBC Auto (Bld) 0 % Low 1-4 [facility] Comment on above: Performed By: #### L IP, LACWB, IOCAL, PT, CDP, CHANDU, PTT, LIPR, CMPX ####[place] [address] Immature granulocytes #/vol (Bld) 1 % High 0 [facility] Comment on above: Performed By: #### L IP, LACWB, IOCAL, PT, CDP, CHANDU, PTT, LIPR, CMPX ####[place] [address] Lymphocytes Auto #/vol (Bld) 1.09 10*3/uL Low 1.10-3.70 [facility] Comment on above: Performed By: #### L IP, LACWB, IOCAL, PT, CDP, CHANDU, PTT, LIPR, CMPX ####[place] [address] Lymphocytes/100 WBC Auto (Bld) 8 % Low 24-43 [facility] Comment on above: Performed By: #### L IP, LACWB, IOCAL, PT, CDP, CHANDU, PTT, LIPR, CMPX ####[address] [address] Monocytes Auto #/vol (Bld) 1.36 10*3/uL High 0.10-1.20 [facility] Comment on above: Performed By: #### L IP, LACWB, IOCAL, PT, CDP, CHANDU, PTT, LIPR, CMPX ####[address] [place] [address] Monocytes/100 WBC Auto (Bld) 10 % Normal 3-12 [facility] Comment on above: Performed By: #### L IP, LACWB, IOCAL, PT, CDP, CHANDU, PTT, LIPR, CMPX ####[address] [place] [address] Morphology Interp Víctor (Bld) ANISOCYTOSIS PRESENT Normal [facility] Comment on above: Result Comment: TOXI C GRANULATION PRESENT Performed By: #### L IP, LACWB, IOCAL, PT, CDP, CHANDU, PTT, LIPR, CMPX ####[address] [place] [address] Neutrophil (Seg) 81 % High 36-65 [facility] Comment on above: Performed By: #### L IP, LACWB, IOCAL, PT, CDP, CHANDU, PTT, LIPR, CMPX ####[address] [address] NRBC Automated 0.0 per 100 WBC Normal 0.0 [facility] Comment on above: Performed By: #### L IP, LACWB, IOCAL, PT, CDP, CHANDU, PTT, LIPR, CMPX ####[address] [place] [address] Platelet mean volume Auto Entitic volume (Bld) 11.5 fL Normal 8.1-13.5 [facility] Comment on above: Performed By: #### L IP, LACWB, IOCAL, PT, CDP, CHNADU, PTT, LIPR, CMPX ####[address] [address] Platelets Auto #/vol (Bld) 231 10*3/uL Normal 138-453 [facility] Comment on above: Performed By: #### L IP, LACWB, IOCAL, PT, CDP, CHANDU, PTT, LIPR, CMPX ####[address] [address] WBC Auto #/vol (Bld) 13.6 10*3/uL High 3.5-11.3 [facility] Comment on above: Performed By: #### L IP, LACWB, IOCAL, PT, CDP, CHANDU, PTT, LIPR, CMPX ####[address] [address] Erythrocyte distribution width Auto Ratio (RBC) 14.8 % High 11.8-14.4 [facility] Comment on above: Performed By: #### L IP, LACWB, IOCAL, PT, CDP, CHANDU, PTT, LIPR, CMPX ####[address] [address] Hematocrit Auto Volume Fraction (Bld) 34.5 % Low 36.3-47.1 [facility] Comment on above: Performed By: #### L IP, LACWB, IOCAL, PT, CDP, CHANDU, PTT, LIPR, CMPX ####[address] [address] Hemoglobin mass conc (Bld) 10.3 g/dL Low 11.9-15.1 [facility] Comment on above: Performed By: #### L IP, LACWB, IOCAL, PT, CDP, CHANDU, PTT, LIPR, CMPX ####[address] [address] MCH Auto Entitic mass (RBC) 26.3 pg Normal 25.2-33.5 [facility] Comment on above: Performed By: #### L IP, LACWB, IOCAL, PT, CDP, CHANDU, PTT, LIPR, CMPX ####[address] [address] MCHC Auto mass conc (RBC) 29.9 g/dL Normal 28.4-34.8 [facility] Comment on above: Performed By: #### L IP, LACWB, IOCAL, PT, CDP, CHANDU, PTT, LIPR, CMPX ####[address] [address] MCV Auto Entitic volume (RBC) 88.0 fL Normal 82.6-102.9 [facility] Comment on above: Performed By: #### L IP, LACWB, IOCAL, PT, CDP, CHANDU, PTT, LIPR, CMPX ####[place] [address] RBC Auto #/vol (Bld) 3.92 10*6/uL Low 3.95-5.11 [facility] Comment on above: Performed By: #### L IP, LACWB, IOCAL, PT, CDP, CHANDU, PTT, LIPR, CMPX ####[address] [address] Auto Diff Performed NOT REPORTED Normal [facility] Comment on above: Performed By: #### L IP, LACWB, IOCAL, PT, CDP, CHANDU, PTT, LIPR, CMPX ####[address] [address] Platelets Auto #/vol (Bld) NOT REPORTED Normal [facility] Comment on above: Performed By: #### L IP, LACWB, IOCAL, PT, CDP, CHANDU, PTT, LIPR, CMPX ####[address] [address] RBC morphology finding Nom (Bld) NOT REPORTED Normal [facility] Comment on above: Performed By: #### L IP, LACWB, IOCAL, PT, CDP, CHANDU, PTT, LIPR, CMPX ####[address] [address] WBC Morphology NOT REPORTED Normal [facility] Comment on above: Performed By: #### L IP, LACWB, IOCAL, PT, CDP, CHANDU, PTT, LIPR, CMPX ####[address] [address] Abs. Basophil 0.00 k/uL Normal 0.0-0.2 [facility] Comment on above: Performed By: #### L IP, LACWB, IOCAL, PT, CDP, CHANDU, PTT, LIPR, CMPX ####[address] [address] Abs.Imm.Granulocyt e 0.12 k/uL Normal 0.00-0.30 [facility] Comment on above: Performed By: #### L IP, LACWB, IOCAL, PT, CDP, CHANDU, PTT, LIPR, CMPX ####[place] [address] Abs.Neutrophil (Seg) 9.24 k/uL High 1.8-7.7 [facility] Comment on above: Performed By: #### L IP, LACWB, IOCAL, PT, CDP, CHANDU, PTT, LIPR, CMPX ####[address] [address] Basophils/100 WBC Auto (Bld) 0 % Normal 0-2 [facility] Comment on above: Performed By: #### L IP, LACWB, IOCAL, PT, CDP, CHANDU, PTT, LIPR, CMPX ####[place] [address] Eosinophils Auto #/vol (Bld) 0.00 10*3/uL Normal 0.0-0.4 [facility] Comment on above: Performed By: #### L IP, LACWB, IOCAL, PT, CDP, CHANDU, PTT, LIPR, CMPX ####[address] [place] [address] Eosinophils/100 WBC Auto (Bld) 0 % Low 1-4 [facility] Comment on above: Performed By: #### L IP, LACWB, IOCAL, PT, CDP, CHANDU, PTT, LIPR, CMPX ####[address] [address] Immature granulocytes #/vol (Bld) 1 % High 0 [facility] Comment on above: Performed By: #### L IP, LACWB, IOCAL, PT, CDP, CHANDU, PTT, LIPR, CMPX ####[address] [address] Lymphocytes Auto #/vol (Bld) 1.05 10*3/uL Normal 1.0-4.8 [facility] Comment on above: Performed By: #### L IP, LACWB, IOCAL, PT, CDP, CHANDU, PTT, LIPR, CMPX ####[address] [address] Lymphocytes/100 WBC Auto (Bld) 9 % Low 24-44 [facility] Comment on above: Performed By: #### L IP, LACWB, IOCAL, PT, CDP, CHANDU, PTT, LIPR, CMPX ####[address] [address] Monocytes Auto #/vol (Bld) 1.29 10*3/uL High 0.1-0.8 [facility] Comment on above: Performed By: #### L IP, LACWB, IOCAL, PT, CDP, CHANDU, PTT, LIPR, CMPX ####[address] [address] Monocytes/100 WBC Auto (Bld) 11 % High 1-7 [facility] Comment on above: Performed By: #### L IP, LACWB, IOCAL, PT, CDP, CHANDU, PTT, LIPR, CMPX ####[address] [address] Morphology Interp Víctor (Bld) ANISOCYTOSIS PRESENT Normal [facility] Comment on above: Performed By: #### L IP, LACWB, IOCAL, PT, CDP, CHANDU, PTT, LIPR, CMPX ####[address] [address] Neutrophil (Seg) 79 % High 36-66 [facility] Comment on above: Performed By: #### L IP, LACWB, IOCAL, PT, CDP, CHANDU, PTT, LIPR, CMPX ####[address] [address] NRBC Automated 0.0 per 100 WBC Normal 0.0 [facility] Comment on above: Performed By: #### L IP, LACWB, IOCAL, PT, CDP, CHANDU, PTT, LIPR, CMPX ####[address] [address] Platelet mean volume Auto Entitic volume (Bld) 11.8 fL Normal 8.1-13.5 [facility] Comment on above: Performed By: #### L IP, LACWB, IOCAL, PT, CDP, CHANDU, PTT, LIPR, CMPX ####[address] [address] Platelets Auto #/vol (Bld) 201 10*3/uL Normal 138-453 [facility] Comment on above: Performed By: #### L IP, LACWB, IOCAL, PT, CDP, CHANDU, PTT, LIPR, CMPX ####[address] [address] WBC Auto #/vol (Bld) 11.7 10*3/uL High 3.5-11.3 [facility] Comment on above: Performed By: #### L IP, LACWB, IOCAL, PT, CDP, CHANDU, PTT, LIPR, CMPX ####[address] [address] Erythrocyte distribution width Auto Ratio (RBC) 14.7 % High 11.8-14.4 [facility] Comment on above: Performed By: #### L IP, LACWB, IOCAL, PT, CDP, CHANDU, PTT, LIPR, CMPX ####[address] [address] Hematocrit Auto Volume Fraction (Bld) 33.3 % Low 36.3-47.1 [facility] Comment on above: Performed By: #### L IP, LACWB, IOCAL, PT, CDP, CHANDU, PTT, LIPR, CMPX ####[address] [address] Hemoglobin mass conc (Bld) 10.3 g/dL Low 11.9-15.1 [facility] Comment on above: Performed By: #### L IP, LACWB, IOCAL, PT, CDP, CHANDU, PTT, LIPR, CMPX ####[address] [address] MCH Auto Entitic mass (RBC) 27.0 pg Normal 25.2-33.5 [facility] Comment on above: Performed By: #### L IP, LACWB, IOCAL, PT, CDP, CHANDU, PTT, LIPR, CMPX ####[address] [address] MCHC Auto mass conc (RBC) 30.9 g/dL Normal 28.4-34.8 [facility] Comment on above: Performed By: #### L IP, LACWB, IOCAL, PT, CDP, CHANDU, PTT, LIPR, CMPX ####[address] [address] MCV Auto Entitic volume (RBC) 87.4 fL Normal 82.6-102.9 [facility] Comment on above: Performed By: #### L IP, LACWB, IOCAL, PT, CDP, CHANDU, PTT, LIPR, CMPX ####[address] [address] RBC Auto #/vol (Bld) 3.81 10*6/uL Low 3.95-5.11 [facility] Comment on above: Performed By: #### L IP, LACWB, IOCAL, PT, CDP, CHANDU, PTT, LIPR, CMPX ####[place] [address] Auto Diff Performed NOT REPORTED Normal [facility] Comment on above: Performed By: #### L IP, LACWB, IOCAL, PT, CDP, CHANDU, PTT, LIPR, CMPX ####[place] [address] Platelets Auto #/vol (Bld) NOT REPORTED Normal [facility] Comment on above: Performed By: #### L IP, LACWB, IOCAL, PT, CDP, CHANDU, PTT, LIPR, CMPX ####[address] [address] RBC morphology finding Nom (Bld) NOT REPORTED Normal [facility] Comment on above: Performed By: #### L IP, LACWB, IOCAL, PT, CDP, CHANDU, PTT, LIPR, CMPX ####[address] [address] WBC Morphology NOT REPORTED Normal [facility] Comment on above: Performed By: #### L IP, LACWB, IOCAL, PT, CDP, CHANDU, PTT, LIPR, CMPX ####[address] [address] Calcium, Ionicon 11-02-2017 Calcium mass conc 1.08 mmol/L Low 1.13-1.33 [facility] Comment on above: Performed By: #### L IP, LACWB, IOCAL, PT, CDP, CHANDU, PTT, LIPR, CMPX ####[address] [place] [address] Comp Metabolic Pr/rfx MGon 0 11-02-2017 (cont.) Normal [facility] Comment on above: Result Comment: Aver age GFR for 60-69 years old: 85 mL/min/1.73sq mChronic Kidney Disease: <60 mL/min/1.73sq mKidney failure: <15 mL/min/1.73sq meGFR calculated using average adult body mass. Additional eGFR calculator available at:http://www.[employer]/multiple_crcl_2011.htm Performed By: #### L IP, LACWB, IOCAL, PT, CDP, CHANDU, PTT, LIPR, CMPX ####[address] [place] [address] Albumin mass conc 2.5 g/dL Low 3.5-5.2 [facility] Comment on above: Performed By: #### L IP, LACWB, IOCAL, PT, CDP, CHANDU, PTT, LIPR, CMPX ####[facility] [place] [address] Albumin/Globulin mass ratio 0.7 {ratio} Low 1.0-2.5 [facility] Comment on above: Performed By: #### L IP, LACWB, IOCAL, PT, CDP, CHANDU, PTT, LIPR, CMPX ####[facility] [place] [address] Alkaline Phos 74 U/L Normal 35-104 [facility] Comment on above: Performed By: #### L IP, LACWB, IOCAL, PT, CDP, CHANDU, PTT, LIPR, CMPX ####[address] [place] [address] ALT enzyme act/vol 63 U/L High 5-33 [facility] Comment on above: Performed By: #### L IP, LACWB, IOCAL, PT, CDP, CHANDU, PTT, LIPR, CMPX ####[address] [place] [address] Anion gap 3 molar conc 14 mmol/L Normal 9-17 [facility] Comment on above: Performed By: #### L IP, LACWB, IOCAL, PT, CDP, CHANDU, PTT, LIPR, CMPX ####[address] [place] [address] AST enzyme act/vol 33 U/L High <32 [facility] Comment on above: Performed By: #### L IP, LACWB, IOCAL, PT, CDP, CHANDU, PTT, LIPR, CMPX ####[address] [place] [address] Bilirubin Ql (U) 0.80 mg/dL Normal 0.3-1.2 [facility] Comment on above: Performed By: #### L IP, LACWB, IOCAL, PT, CDP, CHANDU, PTT, LIPR, CMPX ####[address] [place] [address] Calcium mass conc 8.1 mg/dL Low 8.6-10.4 [facility] Comment on above: Performed By: #### L IP, LACWB, IOCAL, PT, CDP, CHANDU, PTT, LIPR, CMPX ####[address] [place] [address] Chloride molar conc 105 mmol/L Normal 98-107 [facility] Comment on above: Performed By: #### L IP, LACWB, IOCAL, PT, CDP, CHANDU, PTT, LIPR, CMPX ####[address] [address] CO2 molar conc 22 mmol/L Normal 20-31 [facility] Comment on above: Performed By: #### L IP, LACWB, IOCAL, PT, CDP, CHANDU, PTT, LIPR, CMPX ####[address] [address] Creatinine mass conc 0.85 mg/dL Normal 0.50-0.90 [facility] Comment on above: Performed By: #### L IP, LACWB, IOCAL, PT, CDP, CHANDU, PTT, LIPR, CMPX ####[address] [address] GFR, Amer >60 Normal >60 [facility] Comment on above: Performed By: #### L IP, LACWB, IOCAL, PT, CDP, CHANDU, PTT, LIPR, CMPX ####[address] [address] GFR,non Amer >60 Normal >60 [facility] Comment on above: Performed By: #### L IP, LACWB, IOCAL, PT, CDP, CHANDU, PTT, LIPR, CMPX ####[address] [address] Glucose mass conc 118 mg/dL High 70-99 [facility] Comment on above: Performed By: #### L IP, LACWB, IOCAL, PT, CDP, CHANDU, PTT, LIPR, CMPX ####[address] [address] Potassium molar conc 3.8 mmol/L Normal 3.7-5.3 [facility] Comment on above: Performed By: #### L IP, LACWB, IOCAL, PT, CDP, CHANDU, PTT, LIPR, CMPX ####[facility] [id number] [place] [address] Protein mass conc 5.9 g/dL Low 6.4-8.3 [facility] Comment on above: Performed By: #### L IP, LACWB, IOCAL, PT, CDP, CHANDU, PTT, LIPR, CMPX ####[facility] [id number] [place] [address] Sodium molar conc 141 mmol/L Normal 135-144 [facility] Comment on above: Performed By: #### L IP, LACWB, IOCAL, PT, CDP, CHANDU, PTT, LIPR, CMPX ####[address] [place] [address] Urea nitrogen mass conc 17 mg/dL Normal 8-23 [facility] Comment on above: Performed By: #### L IP, LACWB, IOCAL, PT, CDP, CHANDU, PTT, LIPR, CMPX ####[address] [place] [address] BUN/CRE Ratio NOT REPORTED Normal - [facility] Comment on above: Performed By: #### L IP, LACWB, IOCAL, PT, CDP, CHANDU, PTT, LIPR, CMPX ####[address] [place] [address] Staging: NOT REPORTED Normal [facility] Comment on above: Performed By: #### L IP, LACWB, IOCAL, PT, CDP, CHANDU, PTT, LIPR, CMPX ####[address] [address] (cont.) Normal [facility] Comment on above: Result Comment: Aver age GFR for 60-69 years old: 85 mL/min/1.73sq mChronic Kidney Disease: <60 mL/min/1.73sq mKidney failure: <15 mL/min/1.73sq meGFR calculated using average adult body mass. Additional eGFR calculator available at:http://www.Nutritics.com/multiple_crcl_2012.htm Performed By: #### L IP, LACWB, IOCAL, PT, CDP, CHANDU, PTT, LIPR, CMPX ####[address] [place] [address] Albumin mass conc 2.4 g/dL Low 3.5-5.2 [facility] Comment on above: Performed By: #### L IP, LACWB, IOCAL, PT, CDP, CHANDU, PTT, LIPR, CMPX ####[address] [place] [address] Albumin/Globulin mass ratio 0.7 {ratio} Low 1.0-2.5 [facility] Comment on above: Performed By: #### L IP, LACWB, IOCAL, PT, CDP, CHANDU, PTT, LIPR, CMPX ####[address] [place] [address] Alkaline Phos 73 U/L Normal 35-104 [facility] Comment on above: Performed By: #### L IP, LACWB, IOCAL, PT, CDP, CHANDU, PTT, LIPR, CMPX ####[address] [place] [address] ALT enzyme act/vol 71 U/L High 5-33 [facility] Comment on above: Performed By: #### L IP, LACWB, IOCAL, PT, CDP, CHANDU, PTT, LIPR, CMPX ####[address] [place] [address] Anion gap 3 molar conc 9 mmol/L Normal 9-17 [facility] Comment on above: Performed By: #### L IP, LACWB, IOCAL, PT, CDP, CHANDU, PTT, LIPR, CMPX ####[address] [address] AST enzyme act/vol 34 U/L High <32 [facility] Comment on above: Performed By: #### L IP, LACWB, IOCAL, PT, CDP, CHANDU, PTT, LIPR, CMPX ####[address] [address] Bilirubin Ql (U) 0.87 mg/dL Normal 0.3-1.2 [facility] Comment on above: Performed By: #### L IP, LACWB, IOCAL, PT, CDP, CHANDU, PTT, LIPR, CMPX ####[address] [address] Calcium mass conc 7.8 mg/dL Low 8.6-10.4 [facility] Comment on above: Performed By: #### L IP, LACWB, IOCAL, PT, CDP, CHANDU, PTT, LIPR, CMPX ####[address] [address] Chloride molar conc 108 mmol/L High 98-107 [facility] Comment on above: Performed By: #### L IP, LACWB, IOCAL, PT, CDP, CHANDU, PTT, LIPR, CMPX ####[address] [address] CO2 molar conc 22 mmol/L Normal 20-31 [facility] Comment on above: Performed By: #### L IP, LACWB, IOCAL, PT, CDP, CHANDU, PTT, LIPR, CMPX ####[address] [address] Creatinine mass conc 0.77 mg/dL Normal 0.50-0.90 [facility] Comment on above: Performed By: #### L IP, LACWB, IOCAL, PT, CDP, CHANDU, PTT, LIPR, CMPX ####[address] [place] [address] GFR, Amer >60 Normal >60 [facility] Comment on above: Performed By: #### L IP, LACWB, IOCAL, PT, CDP, CHANDU, PTT, LIPR, CMPX ####[address] [address] GFR,non Amer >60 Normal >60 [facility] Comment on above: Performed By: #### L IP, LACWB, IOCAL, PT, CDP, CHANDU, PTT, LIPR, CMPX ####[address] [address] Glucose mass conc 100 mg/dL High 70-99 [facility] Comment on above: Performed By: #### L IP, LACWB, IOCAL, PT, CDP, CHANDU, PTT, LIPR, CMPX ####[address] [address] Potassium molar conc 3.7 mmol/L Normal 3.7-5.3 [facility] Comment on above: Performed By: #### L IP, LACWB, IOCAL, PT, CDP, CHANDU, PTT, LIPR, CMPX ####[address] [address] Protein mass conc 5.7 g/dL Low 6.4-8.3 [facility] Comment on above: Performed By: #### L IP, LACWB, IOCAL, PT, CDP, CHANDU, PTT, LIPR, CMPX ####[address] [address] Sodium molar conc 139 mmol/L Normal 135-144 [facility] Comment on above: Performed By: #### L IP, LACWB, IOCAL, PT, CDP, CHANDU, PTT, LIPR, CMPX ####[address] [address] Urea nitrogen mass conc 14 mg/dL Normal 8- [facility] Comment on above: Performed By: #### L IP, LACWB, IOCAL, PT, CDP, CHANDU, PTT, LIPR, CMPX ####[address] [place] [address] BUN/CRE Ratio NOT REPORTED Normal - [facility] Comment on above: Performed By: #### L IP, LACWB, IOCAL, PT, CDP, CHANDU, PTT, LIPR, CMPX ####[facility] [id number] [place] [address] Staging: NOT REPORTED Normal [facility] Comment on above: Performed By: #### L IP, LACWB, IOCAL, PT, CDP, CHANDU, PTT, LIPR, CMPX ####[address] [address] Consulton 11-02-2017 HIM IP Note OR Vegetables Cook Normal [facility] Hgb/Hcton 11-02-2017 Hematocrit Auto Volume Fraction (Bld) 35.4 % Low 36.3-47.1 [facility] Comment on above: Performed By: #### L IP, LACWB, IOCAL, PT, CDP, CHANDU, PTT, LIPR, CMPX ####[facility] [id number] [place] [address] Hemoglobin mass conc (Bld) 10.6 g/dL Low 11.9-15.1 [facility] Comment on above: Performed By: #### L IP, LACWB, IOCAL, PT, CDP, CHANDU, PTT, LIPR, CMPX ####[facility] [id number] [place] [address] Hematocrit Auto Volume Fraction (Bld) 34.1 % Low 36.3-47.1 [facility] Comment on above: Performed By: #### L IP, LACWB, IOCAL, PT, CDP, CHANDU, PTT, LIPR, CMPX ####[address] [place] [address] Hemoglobin mass conc (Bld) 10.4 g/dL Low 11.9-15.1 [facility] Comment on above: Performed By: #### L IP, LACWB, IOCAL, PT, CDP, CHANDU, PTT, LIPR, CMPX ####[address] [address] Lactic Acid,Whole Blon 11-02 Lactic Acid,Whole Bl 1.1 mmol/L Normal 0.7-2.1 [facility] Comment on above: Performed By: #### L IP, LACWB, IOCAL, PT, CDP, CHANDU, PTT, LIPR, CMPX ####[address] [address] Lipaseon 11-02-2017 Lipase enzyme act/vol 54 U/L Normal 13-60 [facility] Comment on above: Performed By: #### L IP, LACWB, IOCAL, PT, CDP, CHANDU, PTT, LIPR, CMPX ####[address] [address] Lipid Profileon 11-02-2017 Cholesterol in HDL mass conc 16 mg/dL Low >40 [facility] Comment on above: Result Comment: HDL Guidelines: <40 Undesirable 40-59 Borderline >59 Desirable Performed By: #### L IP, LACWB, IOCAL, PT, CDP, CHANDU, PTT, LIPR, CMPX ####[facility] [place] [address] Cholesterol in LDL mass conc 55 mg/dL Normal 0-130 [facility] Comment on above: Result Comment: LDL Guidelines: <100 Desirable 100-129 Near to/above Desirable 130-159 Borderline >159 UndesirableDirect (measured) LDL and calculated LDL are not interchangeable tests. Performed By: #### L IP, LACWB, IOCAL, PT, CDP, CHANDU, PTT, LIPR, CMPX ####[facility] [id number] [place] [address] Cholesterol mass conc 96 mg/dL Normal <200 [facility] Comment on above: Result Comment: Chol esterol Guidelines: <200 Desirable 200-240 Borderline >240 Undesirable Performed By: #### L IP, LACWB, IOCAL, PT, CDP, CHANDU, PTT, LIPR, CMPX ####[facility] [id number] [place] [address] Cholesterol.total/ Cholesterol in HDL mass ratio 6.0 {ratio} High <5 [facility] Comment on above: Performed By: #### L IP, LACWB, IOCAL, PT, CDP, CHANDU, PTT, LIPR, CMPX ####[address] [place] [address] Triglyceride mass conc 127 mg/dL Normal <150 [facility] Comment on above: Result Comment: Trig lyceride Guidelines: <150 Desirable 150- 199 Borderline 200-499 High >499 Very high Based on AHA Guidelines for fasting triglyceride, November 2011. Performed By: #### L IP, LACWB, IOCAL, PT, CDP, CHANDU, PTT, LIPR, CMPX ####[facility] [place] [address] Cholesterol in VLDL mass conc NOT REPORTED Normal -30 [facility] Comment on above: Performed By: #### L IP, LACWB, IOCAL, PT, CDP, CHANDU, PTT, LIPR, CMPX ####[facility] [id number] [place] [address] MRSA, DNA, Nasalon 8 MRSA, DNA, Nasal NEGATIVE: MRSA DNA n ot detected by nucleic acid amplification. Normal NMRSAA [facility] Comment on above: Result Comment: Resu lts should be used as an adjunct to nosocomial control efforts to identify patients needing enhanced precautions.The test is not intended to identify patients with staphylococcal infections. Results should not be used to guide or monitor treatment for MRSA infections. Performed By: #### L IP, LACWB, IOCAL, PT, CDP, CHANDU, PTT, LIPR, CMPX ####[address] [address] Magnesiumon 11-02-2017 Magnesium mass conc 2.2 mg/dL Normal 1.6-2.6 [facility] Comment on above: Performed By: #### L IP, LACWB, IOCAL, PT, CDP, CHANDU, PTT, LIPR, CMPX ####[address] [address] PTon 11-02-2017 INR Coag RelTime (PPP) 1.0 {INR} Normal [facility] Comment on above: Result Comment: Ther apeutic Range: Moderate Anticoagulant Intensity: INR = 2.0-3.0 High Anticoagulant Intensity: INR = 2.5-3.5 Performed By: #### L IP, LACWB, IOCAL, PT, CDP, CHANDU, PTT, LIPR, CMPX ####[address] [id number] Prothrombin time (PT) Coag time (PPP) 10.5 s Normal 9.0-12.0 [facility] Comment on above: Performed By: #### L IP, LACWB, IOCAL, PT, CDP, CHANDU, PTT, LIPR, CMPX ####[id number] Plan of Careon 11-02-2017 HIM IP Note OR Vegetables Cook Normal [facility] HIM IP Note OR Vegetables Cook Normal [facility] Progress Noteon 11-02-2017 HIM IP Note OR Vegetables Cook Normal [facility] HIM IP Note OR Vegetables Cook Normal [facility] HIM IP Note OR Vegetables Cook Normal [facility] HIM IP Note OR Vegetables Cook Normal [facility] HIM IP Note OR Vegetables Cook Normal [facility] XR ABDOMEN (KUB) (SINGLE AP VIEW)on [...] with distal air present. Findings favorsevere ileus.Interpreted by:VIRGIL Beckfordigned by:Moses Tyson MD11/02/17inal result Normal [facility] Consulton 11-01-2017 HIM IP Note OR Vegetables Cook Normal [facility] History and Physicalon 11-01 HIM IP Note OR Vegetables Cook Normal [facility] MRSA, DNA, Nasalon 8 Specimen Description .NASAL SWAB Normal [facility] Comment on above: Performed By: #### L IP, LACWB, IOCAL, PT, CDP, CHANDU, PTT, LIPR, CMPX ####[facility] [id number] XR ABDOMEN (KUB) (SINGLE AP VIEW)on 11-01-2017 [...] to clinically suspected ileus.Interpreted by:Olena Alexander, DOSigned by:Oelna Alexander, DO9/20/18Final result Normal [facility] Vital Signs Date Time Vital Sign Value Performing Clinician Facility 10-20-2024 15:06-0400 Body height 159.4 cm Drake Shaw MD Work Phone: [facility] 10-20-2024 15:06-0400 Body mass index (BMI) [Ratio] 36.07 kg/m2 Drake Shaw MD Work Phone: [facility] 10-20-2024 15:06-0400 Body weight 91.63 kg Drake Shaw MD Work Phone: [facility] 10-20-2024 15:06-0400 Diastolic blood pressure 82 mm[Hg] Drake Shaw MD Work Phone: [facility] 10-20-2024 15:06-0400 Heart rate 88 /min Drake Shaw MD Work Phone: [facility] 10-20-2024 15:06-0400 Respiratory rate 18 /min Drake Shaw MD Work Phone: [facility] 10-20-2024 15:06-0400 SaO2% (BldA) [Mass fraction] 96 % Drake Shaw MD Work Phone: [facility] 10-20-2024 15:06-0400 Systolic blood pressure 148 mm[Hg] Drake Shaw MD Work Phone: [facility] 04-14-2024 15:07-0500 Diastolic blood pressure 81 mm[Hg] [facility] 04-14-2024 15:07-0500 Systolic blood pressure 148 mm[Hg] [facility] 04-14-2024 15:03-0500 Body height 160.02 cm [facility] 04-14-2024 15:03-0500 Body mass index (BMI) [Ratio] 36.1 kg/m2 [facility] 04-14-2024 15:03-0500 Body weight 92.7 kg [facility] 04-14-2024 15:03-0500 Heart rate 81 /min [facility] 04-14-2024 15:03-0500 Respiratory rate 18 /min [facility] 04-14-2024 15:03-0500 SaO2% (BldA) [Mass fraction] 95 % [facility] 04-16-2023 13:20-0500 Body mass index (BMI) [Ratio] 35.05 kg/m2 Samia Landeros MD Work Phone: [facility] 04-16-2023 13:20-0500 Body temperature 97.81 [degF] Samia Landeros MD Work Phone: [facility] 04-16-2023 13:20-0500 Body weight 91.17 kg Samia Landeros MD Work Phone: [facility] 04-16-2023 13:20-0500 Diastolic blood pressure 80 mm[Hg] Samia Landeros MD Work Phone: [facility] 04-16-2023 13:20-0500 Heart rate 84 /min Samia Landeros MD Work Phone: [facility] 04-16-2023 13:20-0500 Respiratory rate 16 /min Samia Landeros MD Work Phone: [facility] 04-16-2023 13:20-0500 Systolic blood pressure 142 mm[Hg] Samia Landeros MD Work Phone: [facility] 04-02-2023 11:14-0500 Body height 161.3 cm Samia Landeros MD Work Phone: [facility] 04-02-2023 11:14-0500 Body mass index (BMI) [Ratio] 36.44 kg/m2 Samia Landeros MD Work Phone: [facility] 04-02-2023 11:14-0500 Body weight 94.8 kg Samia Landeros MD Work Phone: [facility] 04-02-2023 11:14-0500 Diastolic blood pressure 80 mm[Hg] Samia Landeros MD Work Phone: [facility] 04-02-2023 11:14-0500 Heart rate 80 /min Samia Landeros MD Work Phone: [facility] 04-02-2023 11:14-0500 Respiratory rate 16 /min Samia Landeros MD Work Phone: [facility] 04-02-2023 11:14-0500 Systolic blood pressure 160 mm[Hg] Samia Landeros MD Work Phone: [facility] 03-12-2023 14:30-0500 Body height 160.02 cm Tondra Mapus Other [facility] 03-12-2023 14:30-0500 Body mass index (BMI) [Ratio] 36.89 kg/m2 Tondra Mapus Other [facility] Other 03-12-2023 14:30-0500 Body weight 94.48 kg Tondra Mapus Other [facility] 03-12-2023 14:30-0500 Diastolic blood pressure 82 mm[Hg] Tondra Mapus Other [facility] 03-12-2023 14:30-0500 Respiratory rate 18 /min Tondra Mapus Other [facility] Other 03-12-2023 14:30-0500 SaO2% (BldA) [Mass fraction] 94 % Tondra Mapus Other [facility] Other 03-12-2023 14:30-0500 Systolic blood pressure 155 mm[Hg] Tondra Mapus Other [facility] 11-27-2022 14:30-0400 Body height 160.02 cm Tondra Mapus Other [facility] Other 11-27-2022 14:30-0400 Body mass index (BMI) [Ratio] 36.26 kg/m2 Tondra Mapus Other [facility] Other 11-27-2022 14:30-0400 Body weight 92.85 kg Tondra Mapus Other [facility] Other 11-27-2022 14:30-0400 Diastolic blood pressure 75 mm[Hg] Tondra Mapus Other [facility] Other 11-27-2022 14:30-0400 Respiratory rate 18 /min Tondra Mapus Other [facility] Other 11-27-2022 14:30-0400 SaO2% (BldA) [Mass fraction] 95 % Tondra Mapus Other [facility] Other 11-27-2022 14:30-0400 Systolic blood pressure 142 mm[Hg] Tondra Mapus Other [facility] Other 08-28-2022 13:30-0400 Body height 160.02 cm Tondra Mapus Other [facility] Other 08-28-2022 13:30-0400 Body mass index (BMI) [Ratio] 34.68 kg/m2 Tondra Mapus Other [facility] Other 08-28-2022 13:30-0400 Body weight 88.81 kg Tondra Mapus Other [facility] Other 08-28-2022 13:30-0400 Diastolic blood pressure 86 mm[Hg] Tondra Mapus Other [facility] Other 08-28-2022 13:30-0400 Respiratory rate 18 /min Tondra Mapus Other [facility] Other 08-28-2022 13:30-0400 SaO2% (BldA) [Mass fraction] 96 % Tondra Mapus Other [facility] Other 08-28-2022 13:30-0400 Systolic blood pressure 157 mm[Hg] Tondra Mapus Other [facility] Other 05-24-2022 15:15-0400 Body height 160.02 cm Tondra Mapus Other [facility] Other 05-24-2022 15:15-0400 Body mass index (BMI) [Ratio] 33.65 kg/m2 Tondra Mapus Other [facility] Other 05-24-2022 15:15-0400 Body weight 86.18 kg Tondra Mapus Other [facility] Other 05-24-2022 15:15-0400 Diastolic blood pressure 78 mm[Hg] Tondra Mapus Other [facility] Other 05-24-2022 15:15-0400 Respiratory rate 18 /min Tondra Mapus Other [facility] Other 05-24-2022 15:15-0400 SaO2% (BldA) [Mass fraction] 98 % Tondra Mapus Other [facility] Other 05-24-2022 15:15-0400 Systolic blood pressure 164 mm[Hg] Tondra Mapus Other [facility] Other 04-26-2022 15:45-0400 Body height 160.02 cm Tondra Mapus Other [facility] Other 04-26-2022 15:45-0400 Body mass index (BMI) [Ratio] 33.35 kg/m2 Tondra Mapus Other [facility] Other 04-26-2022 15:45-0400 Body weight 85.41 kg Tondra Mapus Other [facility] Other 04-26-2022 15:45-0400 Diastolic blood pressure 84 mm[Hg] Tondra Mapus Other [facility] Other 04-26-2022 15:45-0400 Respiratory rate 18 /min Tondra Mapus Other [facility] Other 04-26-2022 15:45-0400 SaO2% (BldA) [Mass fraction] 96 % Tondra Mapus Other [facility] Other 04-26-2022 15:45-0400 Systolic blood pressure 154 mm[Hg] Tondra Mapus Other [facility] Other 02-20-2022 15:45-0500 Body height 160.02 cm Tondra Mapus Other [facility] Other 02-20-2022 15:45-0500 Body mass index (BMI) [Ratio] 32.47 kg/m2 Tondra Mapus Other [facility] Other 02-20-2022 15:45-0500 Body weight 83.14 kg Tondra Mapus Other [facility] Other 02-20-2022 15:45-0500 Diastolic blood pressure 91 mm[Hg] Tondra Mapus Other [facility] Other 02-20-2022 15:45-0500 Respiratory rate 18 /min Tondra Mapus Other [facility] Other 02-20-2022 15:45-0500 SaO2% (BldA) [Mass fraction] 96 % Tondra Mapus Other [facility] Other 02-20-2022 15:45-0500 Systolic blood pressure 160 mm[Hg] Tondra Mapus Other [facility] Other 01-16-2022 09:00-0500 Body height 160.02 cm Tondra Mapus Other [facility] Other 01-16-2022 09:00-0500 Body mass index (BMI) [Ratio] 31.92 kg/m2 Tondra Mapus Other [facility] Other 01-16-2022 09:00-0500 Body weight 81.74 kg Tondra Mapus Other [facility] Other 01-04-2022 12:00-0500 Body height 160.02 cm Tondra Mapus Other [facility] Other 01-04-2022 12:00-0500 Body mass index (BMI) [Ratio] 31.28 kg/m2 Tondra Mapus Other [facility] Other 01-04-2022 12:00-0500 Body weight 80.11 kg Tondra Mapus Other [facility] Other 01-04-2022 12:00-0500 Diastolic blood pressure 89 mm[Hg] Tondra Mapus Other [facility] Other 01-04-2022 12:00-0500 Respiratory rate 18 /min Tondra Mapus Other [facility] Other 01-04-2022 12:00-0500 SaO2% (BldA) [Mass fraction] 98 % Tondra Mapus Other [facility] Other 01-04-2022 12:00-0500 Systolic blood pressure 154 mm[Hg] Tondra Mapus Other [facility] Other Encounters Encounter Date Encounter Type Care Provider Facility Start: 10-20-2024 End: 10-20-2024 Patient encounter procedure Drake Shaw MD Work Phone: [facility] Comment on above: Necrotizing pancreat itis (Primary Dx); Secondary diabetes mellitus (CMS-HCC); Mixed hyperlipidemia; Essential hypertension, benign; Encounter for screening mammogram for malignant neoplasm of breast Start: 10-20-2024 End: 10-20-2024 ambulatory SAMIA [address] [facility] Start: 10-15-2024 End: 10-15-2024 Refill Viktoriya BERMAN [facility] Phone[facility] Start: 08-15-2024 End: 08-18-2024 Refill Drake Shaw MD Work Phone: [facility] Start: 08-13-2024 End: 08-13-2024 Refill Samia Landeros MD Work Phone: [facility] Comment on above: Mixed hyperlipidemia Start: 06-20-2024 End: 06-20-2024 Refill Samia Landeros MD Work Phone: [facility] Start: 05-18-2024 End: 05-19-2024 Refill Samia Landeros MD [facility] Phone: [facility] Start: 04-23-2024 End: 04-23-2024 Refill Samia Landeros MD Work Phone: [facility] Start: 04-14-2024 End: 04-14-2024 ambulatory [facility] Work Phone: Start: 04-14-2024 End: 04-14-2024 Patient encounter procedure [facility] Work Phone: Start: 02-19-2024 End: 02-19-2024 Refill [facility] Start: 10-22-2023 End: 10-22-2023 Telephone encounter [facility]os [facility] Start: 09-11-2023 End: 09-11-2023 Refill Samia Landeros MD Work Phone: [facility] Start: 08-24-2023 End: 08-27-2023 Refill Samia Landeros MD Work Phone: [facility] Start: 08-17-2023 End: 08-20-2023 Refill Samia Landeros MD Work Phone: [facility] Start: 07-24-2023 End: 07-24-2023 Orders Only Samia Landeros MD Work Phone: [facility] Start: 07-16-2023 End: 07-16-2023 Refill [facility] MD [facility] Start: 06-15-2023 End: 06-18-2023 Refill Samia Landeros MD [facility] Comment on above: Mixed hyperlipidemia Start: 05-07-2023 Telephone encounter Samia Payton MD Work Phone: [facility] Start: 04-27-2023 Telephone encounter Yohana Keller [facility] [facility] Start: 04-18-2023 Orders Only Samia carrasco MD Work Phone: [facility] Start: 04-16-2023 End: 04-16-2023 Office outpatient visit 15 minutes Samia Landeros MD Work Phone: [facility] Comment on above: Other acute sinusiti s, recurrence not specified (Primary Dx) Start: 04-02-2023 End: 04-02-2023 Office outpatient visit 15 minutes Samia Landeros MD Work Phone: [facility] Comment on above: Secondary diabetes m ellitus ([facility]) (Primary Dx); Necrotizing pancreatitis; Mixed hyperlipidemia; Essential hypertension, benign Start: 03-26-2023 Refill Samia carrasco MD Work Phone: [facility] Start: 03-23-2023 End: 03-23-2023 ambulatory Tondra Mapus Other [employer] Other Start: 03-23-2023 Telephone encounter Tondra Mapus [facility] Start: 03-12-2023 End: 03-12-2023 Discharged Recurring MD Samia Landeros Work Phone: [facility] Work Phone: Start: 03-12-2023 (DM) Diabetes Tondra Mapus [facility] Start: 03-12-2023 End: 03-13-2023 ambulatory MD Samia Landeros Work Phone: [employer] Other Start: 03-12-2023 End: 03-12-2023 Patient encounter procedure MD Samia Landeros Work Phone: Pending Sale To [facility]- Start: 02-15-2023 Refill Samia carrasco MD Work Phone: [facility] Start: 01-01-2023 End: 01-01-2023 ambulatory Tondra Mapus Other [facility] [employer] Other Start: 01-01-2023 Telephone encounter Tondra Mapus [facility] Start: 11-27-2022 (DM) Diabetes Tondra Mapus [facility] Start: 11-27-2022 End: 11-27-2022 ambulatory Tondra Mapus Other [facility] [employer] Other Start: 08-28-2022 (DM) Diabetes Tondra Mapus [facility] Start: 08-28-2022 End: 08-28-2022 ambulatory Tondra Mapus Other [facility] [employer] Other Start: 05-24-2022 (DM) Diabetes Tondra Mapus [facility] Start: 05-24-2022 End: 05-24-2022 ambulatory Tondra Mapus Other [employer] Other Start: 05-01-2022 End: 05-02-[address] SAMIA LANDEROS Facility:[facility]1 Start: 04-26-2022 (DM) Diabetes Tondra Mapus [facility] Start: 04-26-2022 End: 04-26-2022 ambulatory Tondra Mapus Other [facility] [employer] [facility] Other Start: 03-09-2022 End: 03-09-2022 ambulatory Tondra Mapus Other [employer] Other Start: 03-09-2022 Telephone encounter Tondra Saturninous [facility] Start: 03-06-2022 End: 03-06-2022 ambulatory Tondra Mapus Other [employer] Other Start: 03-06-2022 Telephone encounter Tondra Jacqueline [facility] Start: 02-20-2022 (DM) Diabetes Tondra Jacqueline [facility] Start: 02-20-2022 End: 02-20-2022 ambulatory Tondra Mapus Other [employer] [facility] [employer] Other Start: 01-20-2022 End: 01-20-2022 ambulatory Tondra Mapus Other [facility] [employer] Other Start: 01-20-2022 Telephone encounter Tondra Saturninous [facility] Start: 01-16-2022 End: 01-16-2022 ambulatory Tondra Mapus Other [facility] [employer] Other Start: 01-16-2022 Nursing evaluation o f patient and report Yandeldra Jacqueline [facility] Start: 01-16-2022 Telephone encounter Tondra Mapus [facility] Start: 01-13-2022 End: 01-13-2022 ambulatory Pk Grady MD Work Phone: General Surgery Comment on above: Secondary diabetes m homero (HCC) (Primary Dx) Start: 01-13-2022 End: 01-13-2022 Telemedicine consultation with patient Pk Grady MD Work Phone: [facility] Start: 01-08-2022 End: 01-08-2022 ambulatory Tondra Mapus Other [facility] [employer] Other Start: 01-08-2022 Telephone encounter Tondra Mapus [facility] Start: 01-06-2022 End: 11-26-[address] SAMIA LANDEROS Facility:[facility] Start: 01-04-2022 End: 01-04-2022 ambulatory Boy Phillips Other [facility] [employer] [facility] Other Start: 01-04-2022 FQHC visit new patient Boy Phillips [facility] Start: 11-18-[address] SAMIA LANDEROS Facil ity:[facility]1 Start: 11-14-2021 End: 11-14-2021 ambulatory Juanita Fletcher Other [facility] [employer] [facility] Other Start: 11-14-2021 Telephone encounter Juanita Fletcher [facility] Start: 11-08-2021 End: 11-09-[address] SAMIA LANDEROS Facility:[facility] Start: 10-24-2021 End: 10-25-[address] SAMIA LANDEROS Facility:[facility] Start: 11-01-2017 End: 11-04-2017 Evaluation and management of inpatient STEPH AVASTHI [facility] Procedures Date Procedure Procedure Detail Performing Clinician Start: 10-18-2024 Adult depression screening assessment Drake Shaw MD Work Phone: Start: 12-20-2023 Diabetic retinal eye exam Samia [...] Td Vaccines (2 - Td or Tdap) [facility] Start: 08-19-2026 Urine microalbumin profile DTAP,TDAP,TD (2 - Td or Tdap) [facility] Start: 10-21-2025 End: 10-21-2025 Patient encounter procedure 10/21/2025 3:30 PM EDT Office Visit [facility] [address] [place] [id number] Drake Shaw MD [address] [place] [address] [facility] Start: 10-20-2025 Adult BMI Screening Adult BMI Screen ing [facility] Start: 10-20-2025 Medicare Annual Well ness Visit Medicare Annual Wellness Visit [facility] Start: 10-20-2025 Tobacco Screening Tobacco Screening [facility] Start: 10-18-2025 Depression Screening Depression Scre ening [facility] Start: 10-18-2025 Fall Risk Screening Fall Risk Screen ing [facility] Start: 08-13-2025 Statin Use: Diabetic Statin Use: Yola betic [facility] Start: 04-30-2025 End: 04-30-2025 Patient encounter procedure 04/30/2025 9:00 AM EDT Office Visit [facility] [address] [place], [place] [address] [address] Drake Shaw MD [address] [place] [address] [facility] Start: 12-19-2024 Glaucoma screening Diabetic Op hthalmology Exam [facility] Start: 12-18-2024 Screening for malign ant neoplasm of breast Mammogram [facility] Start: 10-20-2024 End: 10-20-2024 Patient encounter procedure [facility] Start: 10-20-2024 End: 10-20-2025 DBT Breast - bilateral screening Mammography screening bilateral with CAD Imaging Routine Encounter for screening mammogram for malignant neoplasm of breast Expected: 10/20/2024, Expires: 10/20/2025 [facility] Comment on above: Expected: 10/20/2024 , Expires: 10/20/2025 Start: 10-15-2024 Adult BMI Screening Adult BMI Screen ing [facility] Start: 10-15-2024 Depression Screening Depression Scre ening [facility] Start: 10-15-2024 Fall Risk Screening Fall Risk Screen ing [facility] Start: 10-15-2024 Medicare Annual Well ness Visit Medicare Annual Wellness Visit [facility] Start: 10-15-2024 Tobacco Screening Tobacco Screening [facility] Start: 10-13-2024 Influenza vaccination Influenza Vacc ine [facility] Start: 04-15-2024 Adult BMI Screening Adult BMI Screen ing [facility] Start: 04-02-2024 Adult BMI Screening Adult BMI Screen ing [facility] Start: 04-02-2024 Depression Screening Depression Scre ening [facility] Start: 04-02-2024 Fall Risk Screening Fall Risk Screen ing [facility] Start: 04-02-2024 Tobacco Screening Tobacco Screening [facility] Start: 12-15-2023 Glaucoma screening Diabetic Op hthalmology Exam [facility] Start: 10-16-2023 End: 10-16-2023 Patient encounter procedure 10/16/2023 3:00 PM EDT Office Visit [facility] [address] [place] [address] Samia Landeros MD [address] [place] [address] [facility] Start: 10-14-2023 Influenza vaccination Influenza Vacc ine [facility] Start: 10-13-2023 Adult BMI Screening Adult BMI Screen ing [facility] Start: 10-13-2023 Medicare Annual Well ness Visit Medicare Annual Wellness Visit [facility] Start: 10-13-2023 Tobacco Screening Tobacco Screening [facility] Start: 10-11-2023 Depression Screening Depression Scre ening [facility] Start: 10-11-2023 Fall Risk Screening Fall Risk Screen ing [facility] Start: 09-05-2023 Urine screening for protein Urine Microalbumin [facility] Start: 04-23-2023 End: 04-23-2023 Clinical Support 04/23/2023 3:00 PM EDT Clinical Support [facility] [address] [place] [phone] [facility] Start: 04-13-2023 Diabetic foot examination Diabetic Foot Exam [facility] Start: 04-10-2023 End: 04-10-2023 Patient encounter procedure 04/10/2023 3:30 PM EST Office Visit [facility] [address] [place] [id number] Samia Landeros MD [address] [place] [address] [facility] Start: 04-02-2023 End: 04-02-2023 Patient encounter procedure 04/02/2023 11:15 AM EST Office Visit [facility] [address] [place] [id number] Samia Landeros MD [address] [place] [address] [facility] Start: 11-08-2022 Mammography MAMMOGRAM [facility] Start: 11-08-2022 Screening for malign ant neoplasm of breast Mammogram [facility] Start: 10-13-2022 Influenza vaccination Influenza Vacc ine [facility] Start: 05-08-2022 Hemoglobin A1c/Hemoglobin.total in Blood HBA1C [facility] Start: 10-13-2021 Influenza vaccination INFLUENZA (#1) [facility] Start: 08-31-2021 Colonoscopy COLONOSCOPY [facility] Start: 08-31-2021 COLORECTAL CANCER SCREENING COLORECTAL CANCER SCREENING [facility] Start: 02-12-2021 DEPRESSION ASSESSMENT DEPRESSION ASS ESSMENT [facility] Start: 2007 Administration of varicella zoster vaccine Zoster (Shingles) Vaccine (1 of 2) [facility] Start: 2007 SHINGRIX VACCINE (1 of 2) SHINGRIX VACCINE (1 of 2) [facility] Start: 2002 COLOGUARD (FIT-DNA) COLOGUARD (FIT-D NA) [facility] Start: [address] COLONOGRAPHY [facility] Start: 2002 FECAL OCCULT BLOOD FECAL OCCULT BLOO D [facility] Start: 2002 SIGMOIDOSCOPY SIGMOIDOSCOPY [facility] Start: 1987 HPV TESTING HPV TESTING [facility] Start: 1978 PAP TESTING PAP TESTING [facility] Start: 1975 Adult BMI Follow Up Plan Adult BMI F ollow Up Plan [facility] Start: 1975 ANNUAL PCP TEAM INSPECTOR AND CLERK [place] DISEASE VISIT ANNUAL PCP TEAM CHRONIC DISEASE VISIT [facility] Start: 1975 BP CONTROLLED (<130/80) BP CONTROLLE D (<130/80) [facility] Start: 1975 Hepatitis B surface antibody level LDL CHOLESTEROL [facility] Start: 1975 HEPATITIS C SCREENING HEPATITIS C SC REENING [facility] Start: 1975 HIV SCREENING HIV SCREENING [facility] Start: 1967 3 comp foot exam completed DIABETIC FOOT EXAM [facility] Start: 1967 Hepatitis B screening URINE AL BUMIN:CREATININE RATIO [facility] Start: 1967 Hepatitis C antibody , confirmatory test DILATED RETINAL EXAM [facility] Start: 1963 PNEUMOCOCCAL (1 - PCV) PNEUMOCOCCAL (1 - PCV) [facility] Start: 1957 COVID-19 VACCINE (#1) COVID-19 VACCI NE (#1) [facility] End: 04-02-2024 Basic metabolic 2000 panel - Serum or Plasma Basic Metabolic Panel Lab Routine Essential hypertension, benign 1 Occurrences starting 04/02/2023 until 04/02/2024 [employer] Work Phone: Comment on above: 1 Occurrences starti ng 04/02/2023 until 04/02/2024 End: 10-20-2025 CBC W Auto Differential panel - Blood CBC auto differential Lab Routine Essential hypertension, benign 1 Occurrences starting 10/20/2024 until 10/20/2025 [facility] Comment on above: 1 Occurrences starti ng 10/20/2024 until 10/20/2025 Comprehensive metabo lic 1999 panel - Serum or Plasma [facility] End: 10-20-2025 Comprehensive metabolic 2000 panel - Serum or Plasma Comprehensive metabolic panel Lab Routine Essential hypertension, benign 1 Occurrences starting 10/20/2024 until 10/20/2025 [employer] Work Phone: Comment on above: 1 Occurrences starti ng 10/20/2024 until 10/20/2025 End: 10-20-2025 Hemoglobin A1c/Hemoglobin.total in Blood Hemoglobin A1c Lab Routine Secondary diabetes mellitus ([facility]) 1 Occurrences starting 10/20/2024 until 10/20/2025 [facility] Comment on above: 1 Occurrences starti ng 10/20/2024 until 10/20/2025 End: 10-20-2025 Lipid 1996 panel - Serum or Plasma Lipid profile Lab Routine Mixed hyperlipidemia 1 Occurrences starting 10/20/2024 until 10/20/2025 [facility]: 1 Occurrences starti ng 10/20/2024 until 10/20/2025 End: 10-20-2025 Microalbumin - Albumin: Creatinine Urine Ratio Microalbumin - Albumin: Creatinine Urine Ratio Lab Routine Secondary diabetes mellitus ([facility]) 1 Occurrences starting 10/20/2024 until 10/20/2025 [facility] Comment on above: 1 Occurrences starti ng 10/20/2024 until 10/20/2025 End: 10-20-2025 Thyroid profile includes TSH FT4 Thyroid profile includes TSH FT4 Lab Routine Essential hypertension, benign 1 Occurrences starting 10/20/2024 until 10/20/2025 [facility] Comment on above: 1 Occurrences starti ng 10/20/2024 until 10/20/2025 [facility] Immunizations Immunization Date Immunization Notes Care Provider Fa cility 01-18-2023 Pneumococcal Conjuga te 20-valent Samia Landeros MD Work Phone: [facility] 12-14-2019 influenza, injectabl e, quadrivalent, preservative free Samia Landeros MD Work Phone: [facility] 12-14-2019 influenza virus vacc ine, unspecified formulation Samia Landeros MD Work Phone: [facility] 11-03-2018 Influenza, injectabl e, Madin Julian Canine Kidney, preservative free, quadrivalent Samia Landeros MD Work Phone: [facility] 11-03-2018 influenza, injectabl e, quadrivalent, preservative free Samia Landeros MD Work Phone: [facility] 10-01-2018 meningococcal polysaccharide (groups A, C, Y and W-135) diphtheria toxoid conjugate vaccine (MCV4P) Samia Landeros MD Work Phone: [facility] 10-01-2018 pneumococcal polysaccharide vaccine, 23 valent Samia Landeros MD Work Phone: [facility] 07-16-2018 haemophilus influenz ae type b vaccine, conjugate unspecified formulation Samia Landeros MD Work Phone: [facility] 07-16-2018 meningococcal oligosaccharide (groups A, C, Y and W-135) diphtheria toxoid conjugate vaccine (MCV4O) Samia Landeros MD Work Phone: [facility] 07-16-2018 pneumococcal polysaccharide vaccine, 23 valent Samia Landeros MD Work Phone: [facility] 12-04-2017 influenza, injectabl e, quadrivalent, contains preservative Pk Grady MD Work Phone: [facility] 08-19-2016 tetanus toxoid, redu danny diphtheria toxoid, and acellular pertussis vaccine, adsorbed Pk Grady MD Work Phone: [facility] Work Phone: Payers Date Payer Category Payer Medicaid [id number] 2020 Medicare ANTH MEDICARE ANTHEM MEDICARE ADVANTAGE [id number] 2020-[facility] [phone] [address] [place] [address] [id number] 2020 Medicare HMO [facility] MEDICARE [id number] 2018 Auto Insurance AUTO INSURANCE [id number] 2018 Unknown [id number] 2014 Unknown [id number] 1959 Blue Cross Blue Shield [id number] 1959 Medicaid [id number] 1959 Self-pay 1957 Unknown [id number] 1957 Unknown [id number] 1957 Unknown [id number] 1957 Unknown [id number] 1957 Unknown [id number] 1957 Unknown [id number] 1957 Unknown [id number] Unknown [id number] Social History Date Type Detail Facility Unknown if ever smoked [employer] Other Start: 03-23-2020 End: 10-20-2024 Sex Assigned At [facility] [place] [facility] Start: 07-01-2018 End: 06-18-2023 Tobacco smoking status NHIS Ex-smoker [facility] End: 02-12-1998 History of tobacco use Current smoker [facility] End: 02-12-1998 History of tobacco use Cigarette Smoker [facility] Start: 07-01-2018 End: 03-23-2020 Cigarettes smoked current (pack per day) - Reported 0.1 [facility] Start: 07-01-2018 End: 04-12-2022 Tobacco use and exposure Smokeless tobacco non-user [facility] Start: 01-13-2022 End: 10-20-2024 Alcohol intake Ex-drinker (finding) [facility] Start: 1955 Sex Assigned At Not on file [facility] Start: 1955 Sex Assigned At Female [facility] Start: 04-12-2022 Tobacco smoking status GAIS Never smoked tobacco [facility] Do you belong to any clubs or organizations such as pentecostalism groups, unions, fraternal or athletic groups, or school groups? Yes [facility] Are you now , , , , never or living with a partner? Never [facility] How often to you hav e a drink containing alcohol? Never [facility] How many standard dr inks containing alcohol do you have on a typical day? Patient declined [facility] Do you feel stress - tense, restless, nervous, or anxious, or unable to sleep at night because your mind is troubled all the time - these days [OSQ] Not at all [facility] Start: 03-23-2020 [facility] Start: 11-22-2017 Alcohol Comment occasional [facility] Start: 11-19-2017 End: 04-14-2024 Sex Female (finding) [facility] How hard is it for y ou to pay for the very basics like food, housing, medical care, and heating Not very hard [facility] Medical Equipment Procedure Code Equipment Code Equipment Origin al Text Equipment Identifier Dates [id number], [id number], [id number] Start: 11-18-2017 Comment on above: Use as instructed blood sugar diagnostic (True Metrix Glucose Test Strip) Start: 06-18-2023 Clinical Notes 11-27-2017 to 10-20-2024 Drake Shaw MD - 10/20/2024 3:00 PM EDTTelephone Encounter - Samia Landeros MD - 10/22/2023 3:51 PM EDTTelephone Encounter - Samia Landeros MD - 10/22/2023 3:51 PM EDT Note Date & Type Note Facility 10-20-2024 History of Present illness Narrative Images from the original note were not included. [address] [facility] [address] Subjective: Nichole Sandhu is a 69 y.o. female who presents for a Medicare Annual Wellness exam. The following portions of the patient's history were reviewed and updated as appropriate: Health Risk Assessment, allergies, past medical history, past surgical history, social history, family history, and immunization history Accompanied by: self History Provided By: self Language and Other Communication Barriers: Primary Language Spoken: [place] Highest Level of Education Completed: high school [...] report that you have difficulty remembering things?: (Patient-Rptd) No Depression Screening Little interest or pleasure in [...] Do you have a durable power of claim attorney?: (Patient-Rptd) Yes Hearing Assessment Do you [...] and manage most of your health problems?: (Patient-Rptd) Very confident In the past 12 months, how many times have you been hospitalized?: (Patient-Rptd) None Safety Assessment Do you have throw [...] SpO2: 96% Body mass index is 36.07 kg/m . 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 difficile colitis Diabetes mellitus ([facility]) Hypertension Necrotizing pancreatitis Pancreatitis Past Surgical History: [...] THE MORNING 90 tablet 3 BD ULTRA-FINE JANNETH PEN NEEDLE 32 gauge x 5/32 needle in the morning and at noon and in the evening and before bedtime. blood sugar diagnostic (TRUE METRIX GLUCOSE TEST STRIP) strip TEST TWICE A DAY 50 strip 7 carvediloL (COREG) 25 mg tablet TAKE 1 TABLET (25 MG TOTAL) BY MOUTH IN THE MORNING AND BEFORE BEDTIME 180 tablet 3 cholecalciferol, vitamin D3, (VITAMIN D3) 5,000 units capsule 1 capsule (5,000 Units total). DEXCOM G6 PHYSICIAN INTENSIVIST misc DEXCOM G6 SENSOR device DEXCOM G6 [...] of yes answers would provide a composite measure of non-adherence. Higher scores indicate higher adherence. Cognitive [...] copy in patient's medical record. Assessment/Plan: Nichole Sandhu has been seen for a well visit [...] for nausea or vomiting. Secondary diabetes mellitus ([facility]) - Hemoglobin A1c; Future - Microalbumin - [...] and the following intervention(s) were applied: encouragement to exercise. Follow Up: 6 mo documented in this encounter [facility] 10-22-2023 Miscellaneous Notes Outside labs - wbc# 15,000 has fluctuated in the past- and pt has no c/o's on ros including exposure- will observe k+ 3.4 and is on potassium 10meq 1 qd , will increase to bid rx sent documented in this encounter [facility] 10-22-2023 Telephone encounter Note Outside labs - wbc# 15,000 has fluctuated in the past- and pt has no c/o's on ros including exposure- will observe k+ 3.4 and is on potassium 10meq 1 qd , will increase to bid rx sent [facility] 09-11-[address] [facility] requesting refill of Ferrous Sulfate documented in this encounter [facility] 09-11-2023 Telephone encounter Note [facility] requesting refill of Ferrous Sulfate [facility] 08-24-2023 Miscellaneous Notes Rocky POSEY requesting refill of Klor Con documented in this encounter [facility] 08-24-2023 Telephone encounter Note Rocky POSEY requesting refill of Klor Con [facility] 08-17-2023 Miscellaneous Notes Patient via MyChart requesting refill of Diclofenac Gel, Lidociane Patches and Meclizine to [place] [facility] documented in this encounter [facility] 08-17-2023 Telephone encounter Note Patient via MyChart requesting refill of Diclofenac Gel, Lidociane Patches and Meclizine to [place] [facility] 07-16-2023 Miscellaneous Notes Patient via MyChart requesting refill of Carvedilol and Ondansetron to [place] [facility] documented in this encounter [facility] 07-16-2023 Telephone encounter Note Patient via MyChart requesting refill of Carvedilol and Ondansetron to [place] [facility] 06-15-2023 Miscellaneous Notes [facility] of Atorvastatin and Pantoprazole documented in this encounter [facility] 06-15-2023 Telephone encounter Note [facility] [facility] refill of Atorvastatin and Pantoprazole [facility] 05-07-2023 Miscellaneous Notes Outside labs are good except for glucose at 203- please f/u Tondra regarding sugar Patient notified of results and instructions. documented in this encounter [facility] 05-07-2023 Telephone encounter Note Outside labs are good except for glucose at 203- please f/u Tondra regarding sugar [facility] 05-07-2023 Telephone encounter Note Patient notified of results and instructions. [facility] 04-27-2023 Miscellaneous Notes Needs new Rx for Amlodipine 5mg documented in this encounter [facility] 04-27-2023 Telephone encounter Note Needs new Rx for Amlodipine 5mg [facility] 04-27-2023 Miscellaneous Notes Anneliese's BP is low at night, 98/60 range, do you want to make any changes? We can decrease the norvasc to 5mg- do we need a new rx? Patient notified of message and verbalizes understanding documented in this encounter [facility] 04-27-2023 Telephone encounter Note Anneliese's BP is low at night, 98/60 range, do you want to make any changes? [facility] 04-27-2023 Telephone encounter Note We can decrease the norvasc to 5mg- do we need a new rx? [facility] 04-27-2023 Telephone encounter Note Patient notified of message and verbalizes understanding [facility] 04-16-2023 History of Present illness Narrative Images from the original note were not included. [address] [place] [phone] SUBJECTIVE: Patient ID: Nichole Sandhu is a [...] 300mg bid x10d documented in this encounter [facility] 04-02-2023 History of Present illness Narrative Images from the original note were not included. [address] [place] [id number] SUBJECTIVE: Patient ID: Nichole Sandhu is a [...] in 3 weeks documented in this encounter [facility] 03-26-2023 Miscellaneous Notes Rocky [facility] - Financial Reconciliation requesting refill of Colace documented in this encounter [facility] 03-26-2023 Telephone encounter Note Rocky [facility]INSTEC - Financial Reconciliation requesting refill of Colace [facility] 03-23-2023 Evaluation note Encounter Date Diagnosis Assessment Notes Mar, Secondary diabetes (ICD-10 - E13.9) [facility] Other 01-29-2024 Evaluation note* Encounter Date Diagnosis [...] or diabetes medication issues. 6. Prescriptions: [facility] [place]Tou[facility] and Humalog sent 03/12/23; DME: [facility]-Dexcom [...] to make it easier material was published [facility] Other [id number] Miscellaneous Notes* Telephone Encounter - Yohana Keller LPN - 02/15/2023 9:52 AM EST Patient via Perpetu requesting refill of [facility]idocaine [facility] [place] [facility] encounterC[facility] [phone] Telephone encounter Note* Telephone Encounter - Yohana Keller LPN - 02/15/2023 9:52 AM EST Patient via JumpTimet requesting refill of Lidocaine to [facility]01-04-2024 Miscellaneous Notes* Telephone Encounter - Yohana Keller LPN - 02/15/2023 9:51 AM EST Patient via MyChart requesting refill of Meclizine to [facility] Telephone encounter Note* Telephone Encounter - Yohana Keller LPN - 02/15/2023 9:51 AM EST Patient via MyChart requesting refill of Meclizine to [facility]11-20-2023 Evaluation note* Encounter Date Diagnosis Assessment Notes Treatment Notes Treatment Clinical Notes Dec, Secondary diabetes (ICD-10 - E13.9) Dec, Type 2 diabetes mellitus (ICD-10 - E11.9) [facility] Other 10-16-2023 Evaluation note* Encounter Date Diagnosis [...] Nov, Other 09/03 gfr >60 ; ma Blossom Recordsl [facility] Other 07-17-2023 Evaluation note* Encounter Date Diagnosis [...] the nutrition facts label material was published [facility] Other 04-12-2023 Evaluation note* Encounter Date Diagnosis [...] Prescriptions: Refill request for Humalog sent to [facility] in [place] 05/24/22 7. Prescriptions will not be filled [...] the nutrition facts label material was published [facility] Other 03-15-2023 Evaluation note* Encounter Date Diagnosis Assessment Notes Treatment Notes Treatment Clinical Notes Apr, Secondary diabetes (ICD-10 - E13.9) 1. Uncontrolled, secondary diabetes with A1c of 8.1% improved from 02/20/22 a1c was 10%. 2. Blood glucose levels improving, remain above target. [employer] g6 cgm download 04/13/22-04/26/22: Avg glucose 216. [...] statin Apr, BMI 33.0-33.9,adult (ICD-10 - Z68.33) [facility] Other 01-09-2023 Evaluation note* Encounter Date Diagnosis Assessment Notes Treatment Notes Treatment Clinical Notes Feb, Secondary diabetes (ICD-10 - E13.9) 1. Uncontrolled, secondary diabetes with A1c of 10.0% 2. Blood glucose levels improving, remain above target. [employer] g6 cgm download 02/07/22-02/20/22: Avg glucose 233. [...] statin Feb, BMI 32.0-32.9,adult (ICD-10 - Z68.32) [facility] Other 12-05-2022 Evaluation note* Encounter Date Diagnosis [...] pt requests Dexcom prescription be sent to [facility]. All questions and concerns addressed. Encouraged to follow up for next appointment. 45 minutes was spent on education by Rajni GONZALES, RN. Reviewed cgm download 01/04/22- 2: Avg glucose 252. >250-48.7%, >180-88.6%, 70-180-11.4%, <70-0%, <54-0%. CV 22.8%. SD 58. See above recommendations. Malia LOMAS, SEWING TEACHER-C, BC-ADM [facility] Other 12-02-2022 NoteHNO ID: [id number] Author: Pk Grady MD Service: ? Author [...] time. Continue to follow up with her recreation manager. - Follow up with me PRN CC: [...] which included preparing to see the patient, gwfd-gj-bqox patient care, completing clinical documentation, obtaining and/or reviewing separately obtained history, performing a medically appropriate examination, counseling and educating the patient/family/caregiver, ordering medications, tests, or procedures, and communicating results to the patient/family/caregiver. 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 No concerns at this time regarding the remainder of her pancreas. No further surgery indicated at this time. Continue to follow up with her recreation manager. - Follow up with me PRN CC: [...] which included preparing to see the patient, xbdw-rb-griw patient care, completing clinical documentation, obtaining and/or reviewing separately obtained history, performing a medically appropriate examination, counseling and educating the pat ient/family/caregiver, ordering medications, tests, or procedures, and communicating results to thepatient/family/caregiver. Anton Grady MD [facility] surgery Pager: [phone] [facility] Evaluation note* Encounter Date Diagnosis [...] issues. 6. Prescriptions: Sent toujoe/humalog/pen needles to [facility]. Sent dexcom g6 cgm transmitter/cgm to [facility] [...] - E16.2) Pt would greatly benefit from fpc personal use of CGM device such as [...] how to apply the sensor using a sCoolTVo device and handouts. She successfully applied the sensor to the back of her left arm and inserted the transmitter. The sensor successfully was linked with the phone. Her Clarity account was linked with the office account using a sharing code. 45 minutes were spent educating the patient by Aramis Palm RN, [facility]. [place] [facility] Other 10-16-2018 History of Past illness Narrative* Problem Noted Date Resolved Date Fever 11/27/2017 08/25/2020 Obesity, Class II, BMI 35-39.9 11/15/2017 0 09/24/2019 Delirium 11/04/2017 08/25/2020 Last Assessment & Plan: PLAN: See plan for encephalopathy documented as of this encounter (statuses as of 01/13/2022) [facility] Center[facility] noteNo InformationNort Y[facility] Other Evaluation note* Diagnosis Secondary diabetes mellitus (HCC)- Primary Secondary diabetes mellitus without mention of complication, not stated as uncontrolled, or unspecified documented in this encounter [facility] noteNo assessment information availableAdena Pike [facility] Work Phone: Evaluation note* Diagnosis Mixed hyperlipidemia documented in this encounter [facility] SystemEvaluation note* Diagnosis Secondary diabetes mellitus (CMS-HCC)- Primary Secondary diabetes mellitus without mention of complication, not stated as uncontrolled, or unspecified Necrotizing pancreatitis Acute pancreatitis Mixed hyperlipidemia Essential hypertension, benign documented in this encounter [facility] SystemEvaluation note* Diagnosis Other acute sinusitis, recurrence not specified- Primary documented in this encounter [facility] SystemEvaluation note* Diagnosis Onset Date Resolution Status Admit Date BMI 36.0-36.9,adult acute April 14, 2024 2:51pm Dietary counseling and surveillance acute April 14, 2024 2:51pm H/O resection of pancreas acute April 14, 2024 2:51pm Hyperlipidemia acute April 14, 2024 2:51pm Hypertension acute April 14, 2 025 2:51pm Insulin pump titration acute [facility]2024 2:51pm Localized infection of skin acute April 14, 2024 2:51pm Type 2 diabetes mellitus acute April 14, 2024 2:51pm [facility] Work Phone: Evalucnpvd note* Diagnosis Mixed hyperlipidemia documented in this encounter [facility] SystemEvaluation note* Diagnosis Necrotizing pancreatitis- Primary Acute pancreatitis Secondary diabetes mellitus (CMS-HCC) Secondary diabetes mellitus without mention of complication, not stated as uncontrolled, or unspecified Mixed hyperlipidemia Essential hypertension, benign Encounter for screening mammogram for malignant neoplasm of breast documented in this encounter [facility] SystemHistory general Narrative - Reported* Type Description Date Medical History Secondary Diabetes Mellitus Medical History Necrotizing pancreatitis Medical History Pancreas tail injury Surgical History section Surgical History Hysterectomy Surgical History Kidney stone surgery Surgical History Pancreas resection Surgical History Pancreas-partial removal Surgical History Splenectomy Hospitalization History see above [place] [facility] Other InstructionsNot on filedocumented in this encounter [facility] SystemInstructionsNot on filedocumented in this encounter [facility] SystemInstructionsNot on filedocumented in this encounter [facility] SystemInstructionsNot on filedocumented in this encounter [facility] SystemInstructionsNot on filedocumented in this encounter [facility] SystemInstructions* Attachments The following attachments cannot be sent through Care Everywhere. * Diabetes and diet (Canadian) documented in this encounterProU[facility] SystemInstructionsNot on file documented in this encounterProUab [facility] SystemInstructions* Attachments The following attachments cannot be sent through Care Everywhere. * Sinusitis in adults (Canadian) documented in this encounterProOhio State Harding Hospitalhoozin Health SystemInstructionsNot on file documented in this encounterProOhio State Harding HospitalVidible SystemInstructionsNot on file documented in this encounterProOhio State Harding HospitalVidible SystemInstructionsNot on file documented in this encounterProOhio State Harding HospitalVidible SystemInstructionsNot on file documented in this encounterProOhio State Harding HospitalVidible SystemInstructionsNot on file documented in this encounterProOhio State Harding HospitalVidible SystemInstructionsNot on file documented in this encounterProOhio State Harding HospitalVidible SystemInstructionsNot on file documented in this encounterThe Bellevue Hospitalhoozin [facility] SystemReason for visit Narrative Referral Dr. Landeros, secondary DM new pt apt with [employer] CREDIT RISK SPECIALIST, SEWING TEACHER-C, BC-ADM [facility] Other Summary Purpose Family History No Family [...] FoundDocuments on File Type Date Recorded Patient Charging Plug Placer Expl anation Advance Directive(s) 11/09/2017 4:21 PM SI GNED Advance Directive Response Recorded Date/ Time Advance Directives No December 1:07pm Chief Complaint and Reason for Visit Chief Complaint Dm 3 Month F/U DM Chief Complaint Admit Date 3 month/ DEXCOM April 14, 2024 2:51 pm Reason for Visit Admit Date BMI 36.0-36.9,adult April 14, 2024 2:51 pm Dietary counseling and surveillance Nic radha 2024 2:51pm H/O resection of pancreas April 14 2:51pm Hyperlipidemia April 14, 2024 2:51 pm Hypertension April 14, 2024 2:51 pm Insulin pump titration April 14, 2024 2 :51pm Localized infection of skin April 14, 025 2:51pm Type 2 diabetes mellitus April 14, 2024 2:51pm Additional Source Comments INFORMATION SOURCE (unrecogn ized section and content) DATE CREATED AUTHOR 12/08/2017 [facility] DATE CREATED AUTHOR AUTHOR'S ORGANIZ ATION 11/24/2018 [facility] DATE CREATED AUTHOR AUTHOR'S ORGANIZ ATION 09/02/2020 [facility] DATE CREATED AUTHOR AUTHOR'S ORGANIZ ATION 01/13/2022 [facility] DATE CREATED AUTHOR AUTHOR'S ORGANIZ ATION 05/07/2022 [facility] DATE CREATED AUTHOR AUTHOR'S ORGANIZ ATION 04/03/2023 [facility] DATE CREATED AUTHOR AUTHOR'S ORGANIZ ATION 10/22/2024 [facility] REASON FOR VISIT (unrecogniz ed section and content) Reason Comments Diabetes Reason Comments Med Refill Reason Onset Date Comments Med Refill 02/15/2023 Reason Onset Date Comments Med Refill 07/16/2023 Reason Comments Routine Check up Reason Onset Date Comments Med Refill 08/17/2023 Reason Onset Date Comments Med Refill 04/27/2023 Reason Comments Annual Exam Medicare wellness Source Comments (unrecognize d section and content) In the event this informatio n is protected by the Federal Confidentiality of Alcohol and Drug Abuse Patient Records regulations: The Federal rules restrict any use of the information to criminally investigate or prosecute any alcohol or drug abuse patient.[facility] Care Teams (unrecognized sec tion and content) Felt Cutter Relationship Specialty Start Date End Date Samia Payton [address] [place], [place] [id number] PCP - General Family Medicine 11/23/17 Team [...] March 12, 2023 End: March 12, 2023 Felt Cutter Relationship Specialty Start Date End Date Samia Landeros MD [address] [place] [address] PCP - General Family Medicine 11/22/17 Felt Cutter Relationship Specialty Start Date End Date Samia Landeros MD [address] [place] [address] PCP - General Family Medicine 11/22/17 Felt Cutter Relationship Specialty Start Date End Date Samia Landeros MD [address] [place] [address] PCP - General Family Medicine 11/22/17 Felt Cutter Relationship Specialty Start Date End Date Samia Landeros MD [address] [place] [address] PCP - General Family Medicine 11/22/17 Felt Cutter Relationship Specialty Start Date End Date Samia Landeros MD [address] [place] [address] PCP - General Family Medicine 11/22/17 Felt Cutter Relationship Specialty Start Date End Date Samia Landeros MD [address] [place] [address] PCP - General Family Medicine 11/22/17 Felt Cutter Relationship Specialty Start Date End Date Samia Landeros MD [address] [place] [address] PCP - General Family Medicine 11/22/17 Felt Cutter Relationship Specialty Start Date End Date Samia Landeros MD [address] [place] [address] PCP - General Family [facility] 11/22/17 Felt Cutter Relationship Specialty Start Date End Date Samia Landeros MD [address] [place] [address] PCP - [facility] 11/22/17 Felt Cutter Relationship Specialty Start Date End Date Samia Landeros MD [address] [place] [address] PCP - [facility] 11/22/17 Team Status: Inactive Member Role Status Dates Samia Landeros MD Primary Care Provider Active Start: April 14, 2024 End: April 14, 2024 Boy Phillips APRN Attending Provider Active Start: April 14, 2024 End: April 14, 2024 Felt Cutter Relationship Specialty Start Date End Date Samia Landeros MD [address] [place] [address] PCP - [facility] 11/22/17 Felt Cutter Relationship Specialty Start Date End Date Samia Landeros MD [address] Provider retired 05/13/24 [place] [address] PCP - General Family Medicine 11/22/17 Felt Cutter Relationship Specialty Start Date End Date Samia Landeros MD [address] Provider retired 05/13/24 [place] [address] PCP - General Family Medicine 11/22/17 Felt Cutter Relationship Specialty Start Date End Date Samia Landeros MD [address] [place], [place] [address]Nancy. Provider retired 05/13/24 [place], [place] [id number] PCP - General Family Medicine 11/22/17 Felt Cutter Relationship Specialty Start Date End Date Drake Shaw MD [address] [place] [address] [id number] PCP - General Internal Medicine 09/17/24 Felt Cutter Relationship Specialty Start Date End Date Drake Shaw MD [address] [place] [address] [phone] PCP - General Internal Medicine 09/17/24 Goals (unrecognized section and content) Goals may [...] BE BASED ON THE PRIMARY CLINICAL RECORDS. [facility] [employer] [facility]. provides no warranty or guarantee of the accuracy or completeness of information in this document.
--- OUTSIDE RECORDS SUMMARY | 2024-10-31 06:56 | XMS_ITS | Encounter Summary ---
Author Organization [facility] Address [address] [place] [id number] Care Team Providers Care Protective Clothing Issuer Name Role Phone Ash Rinaldi Primary Care Provider [phone] Source Comments In the event this information is protected by the Federal Confidentiality of Alcohol and Drug AbusePatient Records regulations: The Federal rules restrict any use of the information to criminally investigate or prosecute any alcohol or drug abuse patient.[facility] Encounter Details Date Type Department Care Team (Late st Contact Info) Description 07/30/2020 Patient Msg Colorectal Surgery [facility] [address] [id number] Provider, Ccf colonoscopy prep Social History Tobacco [...] N ot on file 01/20/2020 Data from: [email or web address] Last address used for calculation [...] on filedocumented in this encounter Care Teams Protective Clothing Issuer Relationship Specialty Start Date End Date Ash Rinaldi: [phone] [address] [place] [address] PCP - General Family Medicine 11/23/17 documented as of this encounter
--- OUTSIDE RECORDS SUMMARY | 2024-10-31 06:57 | XMS_ITS | Encounter Summary ---
Author Organization [facility] Address [id number] [address] [place] [address] Care Team Providers Care Wares Sorter Name Role Phone Drake Morrissey MD Primary Care Provider Reason for Visit * Reason Onset Date Comments Med Refill 04/27/2023 Encounter Details Date Type Department Care Team (Late st Contact Info) Description 04/27/2023 Refill [facility] [address] [place] [address] Yohana Keller LPN Social History [...] any clubs o r organizations such as jain groups, unions, fraternal or athletic groups, or [...] Answer Date Recorded Total Score 0 04/02/2023 [facility] [place] of Occupat ional Health - Occupational Stress [...] EDT Office Visit [facility] [address] [place] [phone] Drake Morrissey MD [address] [place] [address] [phone] 10/21/2025 3:30 PM EDT Office Visit [facility] [address] [place] [address] [phone] Drake Morrissey MD [address] [place] [address] [phone] documented as of this encounter Visit Diagnoses Not on filedocumented in this encounter Additional Health Concerns Assessment Noted Time PHQ-9 Depression Total Score: 0 04/02/19 24 7:00 AM EST A Body Mass Index follow-up plan has been documented for the patient 04/29/2020 3:01 PM EDT documented as of this encounter Care Teams Wares Sorter Relationship Specialty Start Date End Date Drake Morrissey MD [address] [place] [phone] PCP - General Internal Medicine 09/17/24 documented as of this encounter
--- OUTSIDE RECORDS SUMMARY | 2024-10-31 06:57 | XMS_ITS | Encounter Summary ---
Author Organization [facility] Address [facility]-[id number] [address] [place] [address] Care Team Providers Care Operations Asst Name Role Phone Drake Morrissey MD Primary Care Provider [phone] Reason for Visit * Reason Comments Med Refill Encounter Details Date Type Department Care Team (Late st Contact Info) Description 06/07/2022 Refill [facility] [address] [place] [address] Ash Landeros MD [address]. Provider retired 05/13/24 [place] [address] Social History Tobacco Use Types [...] often do you attend chur ch or zoroastrian services? Never 03/23/2020 Do you belong to any clubs o r organizations such as faith groups, unions, fraternal or athletic groups, or [...] Answer Date Recorded Total Score 0 04/12/2022 [facility] of Occupat ional Health - Occupational Stress [...] Office Visit [facility] [address] [place] [address] [phone] Drake Morrissey MD [address] [place] [address] 10/21/2025 3:30 PM EDT Office Visit [facility] [address] [place] [phone] Drake Morrissey MD [address] [place] [address] [phone] documented as of this encounter Visit Diagnoses Not on filedocumented in this encounter Additional Health Concerns Assessment Noted Time PHQ-9 Depression Total Score: 0 04/13/19 23 7:00 AM EST A Body Mass Index follow-up plan has been documented for the patient 04/29/2020 3:01 PM EDT documented as of this encounter Care Teams Operations Asst Relationship Specialty Start Date End Date Drake Morrissey MD [address] [place] [address] [phone] PCP - General Internal Medicine 09/17/24 documented as of this encounter
--- OUTSIDE RECORDS SUMMARY | 2024-10-31 06:57 | XMS_ITS | Clinical Summary ---
Author Organization [facility] Address [address] [place] [address] Care Team Providers Care Private Mortgage Banker Safe Name Role Phone Ash Rinaldi Primary Care Provider [phone] Allergies Active Allergy Reactions Criticality Noted Date Comments Lorazepam Other: See Comments 11/11/2017 Becomes combative/ delirious Codeine Swelling 11/04/2017 Swelling of the tongue Medications blood sugar diagnostic (LabotecTOUCH VERIO) test strip Use as instructed 100 [...] (11/05/2017): Added automatically from request for surgery [id number] Hypertension 11/02/2017 Assessment & Plan (08/25/2020 3:17 PM EDT): Assessment: States is well controlled with medication Follows with PCP Denies any chest pain, shortness of breath or any palpitations. Denies any known prior HI, CVA or stent placement. Resolved Problems Problem [...] Data from: https://www.neighborhoodatlas.medicine.[facility]/. Last address used for calculation Not on [...] 11/08/2022 11/08/2021, 10/23/2019, 04/03/2019, Additional history exists Advance Directive Discussion 02/13/2024 Medicare Advantage Annual We llness Visit 02/13/2024 Influenza Vaccine (#1) 2024 , 11/03/2018, 12/04/2017 DTaP,Tdap,Td Vaccine (2 - Td or Tdap) 08/19/2026 08/19/2016 RSV Vaccine (1 - 1-dose 75+ series) 2032 Procedures Procedure Name Priority Date/Time Associated Diagnosis Comments COLONOSCOPY Routine 08/31/2020 8:34 AM EDT from Last 3 Months or Most Recently Relevant to Health Maintenance Results * COLONOSCOPY (08/31/2020 8:34 AM EDT) [facility] Gastrointestinal Endoscopy Patient Name: Nichole Warren Procedure Date: 08/31/2020 8:34 AM Date of : 1955 Admit Type: Outpatient Age: 65 Room: Procedure Room 4 Gender: Female Note Status: [...] EDT Jhon Stephen DO [facility] n[facility] Result Performing Organization Address City/State/[facility] Co de Phone Number [facility] [address] [place] [address] [facility] from Last 3 Months or Most Recently Relevant to Health Maintenance Insurance [facility] MEDICARE ADVANTAGE [place] MEDICA[place] Advance Directives Documents on File Type Date Recorded Patient Placement Director Expl anation Advance Directive(s) 11/09/2017 4:21 PM SI GNED Care Teams Private Mortgage Banker Safe Relationship Specialty Start Date End Date Ash Rinaldi [address] [place] [address] PCP - General Family Medicine 11/23/17
--- OUTSIDE RECORDS SUMMARY | 2024-10-31 06:57 | XMS_ITS | Encounter Summary ---
Author Organization [facility] Address [address] [place] [address] Care Team Providers Care Inside Sales Name Role Phone Ash Rinaldi Primary Care Provider [phone] Source Comments In the event this information is protected by the Federal Confidentiality of Alcohol and Drug AbusePatient Records regulations: The Federal rules restrict any use of the information to criminally investigate or prosecute any alcohol or drug abuse patient.[facility] Encounter Details Date Type Department Care Team (Late st Contact Info) Description 08/01/2019 Get Medical Advice General Surgery [address] [phone] Morris Grady MD [address] [place] [address] RE: Visit Follow Up Question Social [...] on filedocumented in this encounter Care Teams Inside Sales Relationship Specialty Start Date End Date Ash Rinaldi [address] [place] [address] PCP - General Family Medicine 11/23/17 documented as of this encounter
--- OUTSIDE RECORDS SUMMARY | 2024-10-31 06:57 | XMS_ITS | Encounter Summary ---
Author Organization [employer] Address [facility]-[id number] [address] [place] [address] Care Team Providers Care Distillery Miller Name Role Phone Drake Morrissey MD Primary Care Provider [phone] Encounter Details Date Type Department Care Team (Latest Contact Info) Description 10/18/2024 Travel Social History Tobacco Use Types Packs/Day Years [...] any clubs o r organizations such as taoist groups, unions, fraternal or athletic groups, or [...] Answer Date Recorded Total Score 0 10/18/2024 [facility] of Occupat ional Health - Occupational [...] got money to buy more. Never True 10/18/2024 Within the past 12 months th e food we bought just didn't last and we didn't have money to get more. Never True 10/18/2024 Purpose - Life Answer Date Recorded I [...] EDT Office Visit [facility] [address] [place] [address] [phone] Drake Morrissey MD [address] [place] [address] [phone] 10/21/2025 3:30 PM EDT Office Visit [facility] [address] [place] [address] [phone] Drake Morrissey MD [address] [place] [address] [phone] documented as of this encounter Visit Diagnoses Not on filedocumented in this encounter Additional Health Concerns Assessment Noted Time PHQ-9 Depression Total Score: 0 10/19/19 25 10:09 AM EDT A Body Mass Index follow-up plan has been documented for the patient 04/29/2020 3:01 PM EDT documented as of this encounter Care Teams Distillery Miller Relationship Specialty Start Date End Date Drake Morrissey MD [address] [place] [address] [phone] PCP - General Internal Medicine 09/17/24 documented as of this encounter
--- OUTSIDE RECORDS SUMMARY | 2024-10-31 06:57 | XMS_ITS | Encounter Summary ---
Author Organization [facility] s tem Address [facility]-[id number] [address] [place] [address] Care Team Providers Care Journalism Teacher Name Role Phone Drake Morrissey MD Primary Care Provider [phone] Encounter Details Date Type Department Care Team (Late st Contact Info) Description 04/27/2022 Orders Only [facility] [address] [place] [address] Cynthia Taylor CMA Hypokalemia; Mixed hyperlipidemia Social History Tobacco Use [...] Answer Date Recorded Total Score 0 04/12/2022 [facility] - Occupational Stress Questionnaire Answer Date Recorded [...] Recorded Do you need help finding a [facility] career center and/or a training program? [...] EDT Office Visit [facility] [address] [place] [address] [phone] Drake Morrissey MD [address] [place] [address] 10/21/2025 3:30 PM EDT Office Visit [facility] [address] [place] [address] [phone] Drake Morrissey MD [address] [place] [address] [phone] documented as of this encounter Procedures Procedure Name Priority Date/Time Associated Diagnosis Comments POTASSIUM Routine 01/06/2022 Hypokalemia LIPID PROFILE Routine 01/06/2022 Mixed hyperlipidemia documented in this encounter Results * Lipid profile (01/06/2022) External Cholesterol 142 SUNQUEST External Cholesterol:Hdl 4.4 [facility]QUEST External Hdl Cholesterol 32 SUNQUEST External Ldl (Calc) 62.2 [facility]QUEST External Triglycerides 239 [employer]QUEST External Very Low Lipoprotein 47.8 SUNQUEST 01/06/2022 Ash Landeros MD LAB BLOOD ORDERABLES Final R esult Performing Organization Address City/[facility]/ZIP Co de Phone Number SUNQUEST * Potassium (01/06/2022) External Potassium K 4.1 SUNQUEST 01/06/2022 Ash Landeros MD LAB BLOOD ORDERABLES Final R esult Performing Organization Address [facility] Co de Phone Number SUNQUEST documented in this encounter Visit Diagnoses Diagnosis Hypokalemia Hypopotassemia Mixed hyperlipidemia documented in this encounter Additional Health Concerns Assessment Noted Time PHQ-9 Depression Total Score: 0 04/13/19 23 7:00 AM EST A Body Mass Index follow-up plan has been documented for the patient 04/29/2020 3:01 PM EDT documented as of this encounter Care Teams Journalism Teacher Relationship Specialty Start Date End Date Drake Morrissey MD [address] [place] [address] PCP - General Internal Medicine 09/17/24 documented as of this encounter
--- OUTSIDE RECORDS SUMMARY | 2024-10-31 06:57 | XMS_ITS | Encounter Summary ---
Author Organization [facility] [employer] s tem Address [facility]-[id number] [address] [place] [address] Care Team Providers Care Library Specialist Name Role Phone Drake Morrissey MD Primary Care Provider [phone] Encounter Details Date Type Department Care Team (Late st Contact Info) Description 10/02/2019 [facility] [address] [place] [address] Ash Landeros MD [address] Provider retired 05/13/24 [place] [address] Social History Tobacco Use Types [...] Office Visit [facility] [address] [place] [phone] Drake Morrissey MD [address] [place] [address] [phone] 10/21/2025 3:30 PM EDT Office Visit [facility] [address] [place] [address] [phone] Drake Morrissey MD [address] [place] [address] [phone] documented as of this encounter Visit Diagnoses Diagnosis Mammogram abnormal- Primary Abnormal mammogram, unspecified documented in this encounter Additional Health Concerns Assessment Noted Time PHQ-9 Depression Total Score: 0 04/22/19 20 10:00 AM EDT documented as of this encounter Care Teams Library Specialist Relationship Specialty Start Date End Date Drake Morrissey MD [address] [place] [address] [phone] PCP - General Internal Medicine 09/17/24 documented as of this encounter
--- OUTSIDE RECORDS SUMMARY | 2024-10-31 06:57 | XMS_ITS | Encounter Summary ---
Author Organization [facility] [employer] Address [facility]-[id number] [address] [place] [address] Care Team Providers Care Size Tester Name Role Phone Drake oMrrissey MD Primary Care Provider Encounter Details Date Type Department Care Team (Late st Contact Info) Description 05/02/2022 Orders Only [facility] [address] [place] [address] Thomas, Kamla, PUTTY AND CAULKING SUPERVISOR Mixed hyperlipidemia Social History Tobacco Use Types [...] often do you attend chur ch or mandaen services? Never 03/23/2020 Do you belong to [...] Answer Date Recorded Total Score 0 04/12/2022 [facility] of Occupat ional Health - [...] Recorded Do you need help finding a [facility] career center and/or a training [...] EDT Office Visit [facility] [address] [place] [address] [phone] Drake Morrissey MD [address] [place] [address] 10/21/2025 3:30 PM EDT Office Visit [facility] [address] [place] [address] [phone] Drake Morrissey MD [address] [place] [address] documented as of this encounter Procedures Procedure Name Priority Date/Time Associated Diagnosis Comments GGT Routine 05/01/2022 Mixed hyperlipidemia ALT Routine 05/01/2022 Mixed hyperlipidemia AST Routine 05/01/2022 Mixed hyperlipidemia documented in this encounter Results * GGT (05/01/2022) 05/01/2022 us Ash Landeros MD LAB BLOOD ORDERABLES Final R esult SUNQUEST * ALT (05/01/2022) 05/01/2022 Ash Landeros MD LAB BLOOD ORDERABLES Final R esult Performing Organization Address [facility] de Phone Number SUNQUEST * AST (05/01/2022) 05/01/2022 Ash Landeros MD LAB BLOOD ORDERABLES Final R esult Performing Organization Address [facility] de Phone Number SUNQUEST documented in this encounter Visit Diagnoses Diagnosis Mixed hyperlipidemia documented in this encounter Additional Health Concerns Assessment Noted Time PHQ-9 Depression Total Score: 0 04/13/19 23 7:00 AM EST A Body Mass Index follow-up plan has been documented for the patient 04/29/2020 3:01 PM EDT documented as of this encounter Care Teams Size Tester Relationship Specialty Start Date End Date Drake Morrissey MD [address] [place] [address] PCP - General Internal Medicine 09/17/24 documented as of this encounter
--- OUTSIDE RECORDS SUMMARY | 2024-10-31 06:57 | XMS_ITS | Encounter Summary ---
Author Organization [facility] tem Address [facility]-[id number] [address] [place] [address] Care Team Providers Care Lithographer Helper Name Role Phone Drake Morrissey MD Primary Care Provider [phone] Encounter Details Date Type Department Care Team (Late st Contact Info) Description 12/15/2022 Orders Only [facility] [address] [place] [address] External, Scanning Provider Social History [...] often do you attend chur ch or buddhism services? Never 03/23/2020 Do you belong to [...] Answer Date Recorded Total Score 2 10/10/2022 [facility] of Occupat ional Health - Occupational Stress [...] Office Visit [facility] [address] [place], [place] [address]N[place] [phone] Drake Morrissey MD [address] [place] [address] [phone] 10/21/2025 3:30 PM EDT Office Visit [facility] [address] [place] [address] [phone] Drake Morrissey MD [address] [place] [address] [phone] documented as of this encounter Procedures Procedure [...] documented as of this encounter Care Teams Lithographer Helper Relationship Specialty Start Date End Date Drake Morrissey MD [address] [place] [address] [phone] PCP - General Internal Medicine 09/17/24 documented as of this encounter
--- OUTSIDE RECORDS SUMMARY | 2024-10-31 06:57 | XMS_ITS | Encounter Summary ---
Author Organization [facility] Sys tem Address [facility]-[id number] [address] [place] [address] Care Team Providers Care Commercial Lines Insurance Agent Name Role Phone Drake Morrissey MD Primary Care Provider [phone] Encounter Details Date Type Department Care Team (Late st Contact Info) Description 09/25/2023 Orders Only [facility] [address] [place] [address] External, Scanning Provider Social History [...] often do you attend chur ch or yazidi services? Never 03/23/2020 Do you belong to any clubs o r organizations such as temple groups, unions, fraternal or athletic groups, or [...] Answer Date Recorded Total Score 0 04/02/2023 [facility] of Occupat ional Health - Occupational Stress [...] Recorded Do you need help finding a [facility] career center and/or a training program? [...] Description 04/30/2025 9:00 AM EDT Office Visit [facility] [address] [place], [place] [address] [phone] Drake Morrissey MD [address] [place] [address] [phone] 10/21/2025 3:30 PM EDT Office Visit [facility] [address] [place], [place] [address] [phone] Drake Morrissey MD [address] [place] [address] [phone] documented as of this encounter Procedures Procedure [...] documented as of this encounter Care Teams Commercial Lines Insurance Agent Relationship Specialty Start Date End Date Drake Morrissey MD [facility] [place] [address] PCP - General Internal Medicine 09/17/24 documented as of this encounter
--- OUTSIDE RECORDS SUMMARY | 2024-10-31 06:57 | XMS_ITS | Encounter Summary ---
Author Organization [facility] Sys tem Address [id number] [address] [place] [address] Care Team Providers Care Smt Operator Name Role Phone Drake Morrissey MD Primary Care Provider [phone] Encounter Details Date Type Department Care Team (Late st Contact Info) Description 08/29/2022 Orders Only [facility] [address] [place] [address] External, Scanning Provider Social History [...] often do you attend chur ch or scientology services? Never 03/23/2020 Do you belong to any clubs o r organizations such as gnosticist groups, unions, fraternal or athletic groups, or [...] Answer Date Recorded Total Score 0 04/12/2022 [facility] of Occupat ional Health - Occupational [...] EDT Office Visit [facility] [address] [place], [place] [address]N[place] [phone] Drake Morrissey MD [address] [place] [address] [phone] 10/21/2025 3:30 PM EDT Office Visit [facility] [address] [place], [place] [address]N[place] [phone] Drake Morrissey MD [address] [place] [address] [phone] documented as of this encounter Procedures Procedure [...] documented as of this encounter Care Teams Smt Operator Relationship Specialty Start Date End Date Drake Morrissey MD [address] [place] [address] PCP - General Internal Medicine 09/17/24 documented as of this encounter
--- OUTSIDE RECORDS SUMMARY | 2024-10-31 06:57 | XMS_ITS | Encounter Summary ---
Author Organization [facility] Address [facility]-[id number] [address] [place] [address] Care Team Providers Care Hand Molder Meat Name Role Phone Drake Morrissey MD Primary Care Provider [phone] Reason for Visit * Reason Comments Med Refill Encounter Details Date Type Department Care Team (Late st Contact Info) Description 05/04/2022 Refill [facility] [address] [place] [address] Ash Landeros MD [address]. Provider retired 05/13/24 [place] [address] Social History Tobacco Use Types [...] often do you attend chur ch or christianity services? Never 03/23/2020 Do you belong to any clubs o r organizations such as protestant groups, unions, fraternal or athletic groups, or [...] Answer Date Recorded Total Score 0 04/12/2022 [facility] of Occupat ional Health - Occupational Stress [...] Recorded Do you need help finding a [facility] career center and/or a training program? [...] Office Visit [facility] [address] [place] [phone] Drake Morrissey MD [address] [place] [address] 10/21/2025 3:30 PM EDT Office Visit [facility] [address] [place] [address] [phone] Drake Morrissey MD [address] [place] [address] documented as of this encounter Visit Diagnoses Not on filedocumented in this encounter Additional Health Concerns Assessment Noted Time PHQ-9 Depression Total Score: 0 04/13/19 23 7:00 AM EST A Body Mass Index follow-up plan has been documented for the patient 04/29/2020 3:01 PM EDT documented as of this encounter Care Teams Hand Molder Meat Relationship Specialty Start Date End Date Drake Morrissey MD [address] [place] [address] PCP - General Internal Medicine 09/17/24 documented as of this encounter
--- OUTSIDE RECORDS SUMMARY | 2024-10-31 06:57 | XMS_ITS | Encounter Summary ---
Author Organization [employer] Address [facility][id number] [address] [place] [address] Care Team Providers Care Machine Assembler For Puller Over Name Role Phone Drake Morrissey MD Primary Care Provider [phone] Encounter Details Date Type Department Care Team (Late st Contact Info) Description 10/22/2023 Telephone [facility] [address] [place] [address] Ash Landeros MD [address]. Provider retired 05/13/24 [place] [address] Social History Tobacco Use Types [...] often do you attend chur ch or congregation services? Never 03/23/2020 Do you belong to any clubs o r organizations such as latter-day groups, unions, fraternal or athletic groups, or [...] Answer Date Recorded Total Score 1 10/16/2023 [facility] of Occupat ional Health - Occupational Stress [...] EDT Office Visit [facility] [address] [place] [address] [phone] Drake Morrissey MD [address] [place] [address] [phone] 10/21/2025 3:30 PM EDT Office Visit [facility] [address] [place] [address] [phone] Drake Morrissey MD [address] [place] [address] [phone] documented as of this encounter Visit Diagnoses Not on filedocumented in this encounter Additional Health Concerns Assessment Noted Time PHQ-9 Depression Total Score: 1 10/16/19 24 2:00 PM EDT A Body Mass Index follow-up plan has been documented for the patient 04/29/2020 3:01 PM EDT documented as of this encounter Care Teams Machine Assembler For Puller Over Relationship Specialty Start Date End Date Drake Morrissey MD [facility] [place] [phone] PCP - General Internal Medicine 09/17/24 documented as of this encounter
--- OUTSIDE RECORDS SUMMARY | 2024-10-31 06:57 | XMS_ITS | Encounter Summary ---
Author Organization [employer] Address [facility]-[id number] [address] [place] [address] Care Team Providers Care Patch Driller Name Role Phone Drake Morrissey MD Primary Care Provider [phone] Encounter Details Date Type Department Care Team (Late Contact Info) Description 11/21/2017 Telephone [facility] [address] [place] [address] [phone] Leo Camacho LPN Social History Tobacco Use [...] Office Visit [facility] [address] [place] [address] [phone] Drake Morrissey MD [address] [place] [address] 10/21/2025 3:30 PM EDT Office Visit [facility] [address] [place], [place] [address] [address] Drake Morrissey MD [address] [place] [address] [phone] documented as of this encounter Visit Diagnoses Not on filedocumented in this encounter Care Teams Patch Driller Relationship Specialty Start Date End Date Drake Morrissey MD [address] [place] [address] PCP - General Internal Medicine 09/17/24 documented as of this encounter
--- OUTSIDE RECORDS SUMMARY | 2024-10-31 06:57 | XMS_ITS | Clinical Summary ---
Author Organization [facility] Address [address], [address] [place] [address] Care Team Providers Care Vibrating Screen Operator Name Role Phone Stalin Vick DO Primary Care Provider [phone] Allergies Active Allergy Reactions Criticality Noted Date [...] 7:17 PM 11/04/2017 1:57 AM Care Teams Vibrating Screen Operator Relationship Specialty Start Date End Date Stalin Vick DO [address] [place] [address] PCP - General Family Medicine 11/01/17
--- OUTSIDE RECORDS SUMMARY | 2024-10-31 06:57 | XMS_ITS | Encounter Summary ---
Author Organization [facility] Address [facility][id number] [address] [place] [address] Care Team Providers Care Dog Day Care Attendant Name Role Phone Drake Morrissey MD Primary Care Provider [phone] Reason for Visit * Reason Onset Date Comments Med Refill 05/30/2020 Encounter Details Date Type Department Care Team (Late st Contact Info) Description 05/30/2020 Refill [facility] [address] [place] [address] Ash Landeros MD [address]. Provider retired 05/13/24 [place] [address] Social History Tobacco Use Types [...] any clubs o r organizations such as scientologist groups, unions, fraternal or athletic groups, or [...] Answer Date Recorded Total Score 0 04/29/2020 [facility] of Occupat ional Health - Occupational Stress [...] EDT Office Visit [facility] [address] [place] [address] [phone] Drake Morrissey MD [address] [place] [address] [phone] 10/21/2025 3:30 PM EDT Office Visit [facility] [address] [place] [address] [phone] Drake Morrissey MD [address] [place] [address] [phone] documented as of this encounter Visit Diagnoses Not on filedocumented in this encounter Additional Health Concerns Assessment Noted Time PHQ-9 Depression Total Score: 0 04/30/19 21 2:00 PM EDT A Body Mass Index follow-up plan has been documented for the patient 04/29/2020 3:01 PM EDT documented as of this encounter Care Teams Dog Day Care Attendant Relationship Specialty Start Date End Date Drake Morrissey MD [address] [place] [address] [phone] PCP - General Internal Medicine 09/17/24 documented as of this encounter
--- OUTSIDE RECORDS SUMMARY | 2024-10-31 06:57 | XMS_ITS | Encounter Summary ---
Author Organization [employer] Address [facility] [id number] [address] [place] [address] Care Team Providers Care Dental Surgeon Name Role Phone Drake Morrissey MD Primary Care Provider Encounter Details Date Type Department Care Team ([facility] Contact Info) Description 02/10/2019 Telephone [facility] [address] [place] [address] Ash Landeros MD [address]. Provider retired 05/13/24 [place] [address] Social History Tobacco Use Types [...] Upcoming Encounters Date Type Department Care Team ([facility] Contact Info) Description 04/30/2025 9:00 AM EDT Office Visit [facility] [address] [place] [address] Drake Morrissey MD [address] [place] [address] 10/21/2025 3:30 PM EDT Office Visit [facility] [address] [place] [phone] Drake Morrissey MD [address] [place] [address] [phone] documented as of this encounter Visit Diagnoses Not on filedocumented in this encounter Additional Health Concerns Assessment Noted Time PHQ-9 Depression Total Score: 0 01/28/20 19 11:00 AM EST documented as of this encounter Care Teams Dental Surgeon Relationship Specialty Start Date End Date Drake Morrissey MD [address] [place] [address] PCP - General Internal Medicine 09/17/24 documented as of this encounter
--- OUTSIDE RECORDS SUMMARY | 2024-10-31 06:57 | XMS_ITS | Encounter Summary ---
Author Organization [facility] Address [facility] [place][id number] [address] [place] [address] Care Team Providers Care Day Care Provider Name Role Phone Drake Morrissey MD Primary Care Provider [phone] Encounter Details Date Type Department Care Team (Late st Contact Info) Description 04/01/2020 Telephone [facility] [address] [place] [address] Ash Landeros MD [address]. Provider retired 05/13/24 [place] [address] Social History Tobacco Use Types [...] often do you attend chur ch or restorationist services? Never 03/23/2020 Do you belong to [...] Answer Date Recorded PHQ-2 Score 0 02/02/2018 [facility] [place] of Occupat ional Health - [...] Recorded Do you need help finding a [employer] career center and/or a training program? [...] Office Visit [facility] [address] [place] [address] [phone] Drake Morrissey MD [address] [place] [address] [phone] 10/21/2025 3:30 PM EDT Office Visit [facility] [address] [place], [place] [address] [phone] Drake Morrissey MD [address] [place] [address] [phone] documented as of this encounter Visit Diagnoses Not on filedocumented in this encounter Additional Health Concerns Assessment Noted Time PHQ-9 Depression Total Score: 0 03/23/19 7:52 PM EST documented as of this encounter Care Teams Day Care Provider Relationship Specialty Start Date End Date Drake Morrissey MD [address] [place] [address] PCP - General Internal Medicine 09/17/24 documented as of this encounter
--- OUTSIDE RECORDS SUMMARY | 2024-10-31 06:57 | XMS_ITS | Encounter Summary ---
Author Organization [facility] [employer] Address [id number] [address] [place] [address] Care Team Providers Care Transport Rn Name Role Phone Drake Morrissey MD Primary Care Provider [phone] Encounter Details Date Type Department Care Team (Late st Contact Info) Description 05/07/2023 Orders Only [facility] [address] [place] [address] Cynthia Taylor CMA Essential hypertension, [...] Answer Date Recorded Total Score 0 04/02/2023 [facility] - Occupational Stress Questionnaire Answer Date [...] Recorded Do you need help finding a [facility] career center and/or a training [...] EDT Office Visit [facility] [address] [place] [address] [phone] Drake Morrissey MD [address] [place] [address] [phone] 10/21/2025 3:30 PM EDT Office Visit [facility] [address] [place] [address] [phone] Drake Morrissey MD [address] [place] [address] [phone] documented as of this encounter Procedures Procedure [...] documented as of this encounter Care Teams Transport Rn Relationship Specialty Start Date End Date Drake Morrissey MD [address] [place] [address] PCP - General Internal Medicine 09/17/24 documented as of this encounter
--- OUTSIDE RECORDS SUMMARY | 2024-10-31 06:57 | XMS_ITS | Encounter Summary ---
Author Organization [facility] Address [id number] [address] [place] [address] Care Team Providers Care Engraver Block Name Role Phone Drake Morrissey MD Primary Care Provider [phone] Encounter Details Date Type Department Care Team (Late st Contact Info) Description 06/20/2023 Orders Only [facility] [address] [place] [address] External, Scanning Provider Social History [...] Answer Date Recorded Total Score 0 04/02/2023 [facility] of Occupat ional Health - Occupational Stress [...] Recorded Do you need help finding a [facility] career center and/or a training program? [...] EDT Office Visit [facility] [address] [place], [place] [address] [phone] rDake Morrissey MD [address] [place] [address] [phone] 10/21/2025 3:30 PM EDT Office Visit [facility] [address] [place] [address] [phone] Drake Morrissey MD [address] [place] [address] [phone] documented as of this encounter Procedures Procedure [...] documented as of this encounter Care Teams Engraver Block Relationship Specialty Start Date End Date Drake Morrissey MD [address] [place] [address] PCP - General Internal Medicine 09/17/24 documented as of this encounter
--- OUTSIDE RECORDS SUMMARY | 2024-10-31 06:57 | XMS_ITS | Encounter Summary ---
Author Organization [facility] Address [facility] [place][id number] [address] [place] [address] Care Team Providers Care Instrument Technician Apprentice Name Role Phone Drake Morrissey MD Primary Care Provider [phone] Encounter Details Date Type Department Care Team ([facility] Contact Info) Description 12/12/2019 Orders Only [facility] [address] [place] [address] Ash Landeros MD [address] Provider retired 05/13/24 [place] [address] Social History Tobacco Use Types [...] Upcoming Encounters Date Type Department Care Team ([facility] Contact Info) Description 04/30/2025 9:00 AM EDT Office Visit [facility] [address] [place] [address] Drake Morrissey MD [address] [place] [address] 10/21/2025 3:30 PM EDT Office Visit [facility] [address] [place] [phone] Drake Morrissey MD [address] [place] [address] [phone] documented as of this encounter Visit Diagnoses Not on filedocumented in this encounter Additional Health Concerns Assessment Noted Time PHQ-9 Depression Total Score: 0 04/22/19 20 10:00 AM EDT documented as of this encounter Care Teams Instrument Technician Apprentice Relationship Specialty Start Date End Date Drake Morrissey MD [address] [place] [address] [phone] PCP - General Internal Medicine 09/17/24 documented as of this encounter
--- OUTSIDE RECORDS SUMMARY | 2024-10-31 06:57 | XMS_ITS | Encounter Summary ---
Author Organization [employer] s [employer] Address [facility] [place][id number] [address] [place] [address] Care Team Providers Care Solid Waste Analyst Name Role Phone Drake Morrissey MD Primary Care Provider [phone] Reason for Visit * Reason Comments Med Refill Encounter Details Date Type Department Care Team (Late Contact Info) Description 10/24/2019 Refill [facility] [address] [place] [address] Ash Landeros MD [address] Provider retired 05/13/24 [place] [address] Social History Tobacco Use Types [...] [facility] [address] [place] [address] Drake Morrissey MD [address] [place] [address] [phone] 10/21/2025 3:30 PM EDT Office Visit [facility] [address] [place] [phone] Drake Morrissey MD [address] [place] [address] [phone] documented as of this encounter Visit Diagnoses Not on filedocumented in this encounter Additional Health Concerns Assessment Noted Time PHQ-9 Depression Total Score: 0 04/22/19 20 10:00 AM EDT documented as of this encounter Care Teams Solid Waste Analyst Relationship Specialty Start Date End Date Drake Morrissey MD [address] [place] [phone] PCP - General Internal Medicine 09/17/24 documented as of this encounter
--- OUTSIDE RECORDS SUMMARY | 2024-10-31 06:57 | XMS_ITS | Encounter Summary ---
Author Organization [facility] Address [id number] [address] [place] [address] Care Team Providers Care Office Machines Sales Representative Name Role Phone Drake Morrissey MD Primary Care Provider [phone] Encounter Details Date Type Department Care Team (Late st Contact Info) Description 09/06/2022 Orders Only [facility] [address] [place] [address] Kamla Guzman CMA Mixed hyperlipidemia; Secondary diabetes mellitus ([facility]) Social History Tobacco Use Types Packs/Day [...] often do you attend chur ch or scientologist services? Never 03/23/2020 Do you belong to [...] Answer Date Recorded Total Score 0 04/12/2022 [facility] of Occupat ional Health [...] Office Visit [facility] [address] [place] [address] [phone] Drake Morrissey MD [address] [place] [address] [phone] 10/21/2025 3:30 PM EDT Office Visit [facility] [address] [place] [address] [phone] Drake Morrissey MD [address] [place] [address] [phone] documented as of this encounter Procedures Procedure [...] ORDERABLES Final R esult Performing Organization Address [facility] Co de Phone Number SUNQUEST * Comprehensive metabolic panel (09/04/2022) 09/04/2022 Result [facility] Ash Landeros MD LAB BLOOD ORDERABLES Final R esult Performing Organization Address [facility] de Phone Number SUNQUEST * (ABNORMAL) Lipid profile (09/04/2022) External Cholesterol 140 <=200 [facility]QUEST External Cholesterol:Hdl 4.1 <=4.44 [facility] External Hdl Cholesterol 34(A) 40 - 60 [facility]QUEST External Ldl (Calc) 63 <=100 [facility]QUEST External Triglycerides 216(A) <=150 [facility]QUEST External Very Low Lipoprotein 43.2 [facility]QUEST 09/04/2022 Result [facility] Ash Landeros MD LAB BLOOD ORDERABLES Final R esult Performing Organization Address [facility] de Phone Number SUNQUEST * Microalbumin - Albumin: Creatinine Urine Ratio (09/04/2022) External Microalbumin, Urine <1.3 SUNQUEST 09/04/2022 Result [facility] Ash Landeros MD URINE ORDERABLES Final Resul t Performing Organization Address [facility] Co de Phone Number SUNQUEST * Thyroid profile includes TSH FT4 (09/04/2022) 09/04/2022 Result [facility] Ash Landeros MD LAB BLOOD ORDERABLES Final R esult Performing Organization Address [facility] de Phone Number SUNQUEST documented in this [...] documented as of this encounter Care Teams Office Machines Sales Representative Relationship Specialty Start Date End Date Drake Morrissey MD [address] [place] [address] PCP - General Internal Medicine 09/17/24 documented as of this encounter
--- OUTSIDE RECORDS SUMMARY | 2024-10-31 06:57 | XMS_ITS | Encounter Summary ---
Author Organization [facility] Address [facility]-[id number] [address] [place] [address] Care Team Providers Care Managing Editor Name Role Phone Drake Morrissey MD Primary Care Provider [phone] Encounter Details Date Type Department Care Team (Late st Contact Info) Description 10/22/2023 Orders Only [facility] [address] [place] [address] Ash Landeros MD [address]. Provider retired 05/13/24 [place] [address] Social History Tobacco Use Types [...] often do you attend chur ch or worship services? Never 03/23/2020 Do you belong to any clubs o r organizations such as shinto groups, unions, fraternal or athletic groups, or [...] Answer Date Recorded Total Score 1 10/16/2023 [facility] [place] of Occupat ional Health - Occupational Stress [...] EDT Office Visit [facility] [address] [place] [phone] Drake Morrissey MD [address] [place] [address] 10/21/2025 3:30 PM EDT Office Visit [facility] [address] [place] [address] [phone] Drake Morrissey MD [address] [place] [address] [phone] documented as of this encounter Visit Diagnoses Not on filedocumented in this encounter Additional Health Concerns Assessment Noted Time PHQ-9 Depression Total Score: 1 10/16/19 24 2:00 PM EDT A Body Mass Index follow-up plan has been documented for the patient 04/29/2020 3:01 PM EDT documented as of this encounter Care Teams Managing Editor Relationship Specialty Start Date End Date Drake Morrissey MD [address] [place] [address] [phone] PCP - General Internal Medicine 09/17/24 documented as of this encounter
--- OUTSIDE RECORDS SUMMARY | 2024-10-31 06:57 | XMS_ITS | Encounter Summary ---
Author Organization [employer] s tem Address [facility] [id number] [address] [place] [address] Care Team Providers Care Set Staff Fitter Name Role Phone Drake Morrissey MD Primary Care Provider [phone] Encounter Details Date Type Department Care Team (Late st Contact Info) Description 10/27/2019 [facility] [address] [place] [address] Ash Landeros MD [address]. Provider retired 05/13/24 [place] [address] Social History Tobacco Use Types [...] EDT Office Visit [facility] [address] [place] [phone] Drake Morrissey MD [address] [place] [address] 10/21/2025 3:30 PM EDT Office Visit [facility] [address] [place] [phone] Drake Morrissey MD [address] [place] [address] [phone] documented as of this encounter Visit Diagnoses Not on filedocumented in this encounter Additional Health Concerns Assessment Noted Time PHQ-9 Depression Total Score: 0 04/22/19 20 10:00 AM EDT documented as of this encounter Care Teams Set Staff Fitter Relationship Specialty Start Date End Date Drake Morrissey MD [address] [place] [address] PCP - General Internal Medicine 09/17/24 documented as of this encounter
--- OUTSIDE RECORDS SUMMARY | 2024-10-31 06:57 | XMS_ITS | Encounter Summary ---
Author Organization [facility] Address [facility] [place][id number] [address] [place] [address] Care Team Providers Care Chainstitch Hemmer Name Role Phone Drake Morrissey MD Primary Care Provider [phone] Reason for Visit * Reason Onset Date Comments Med Refill 08/26/2023 Encounter Details Date Type Department Care Team (Late st Contact Info) Description 08/26/2023 Refill [facility] [address] [place] [address] Ash Landeros MD [address] Provider retired 05/13/24 [place] [address] Social History Tobacco Use Types [...] Answer Date Recorded Total Score 0 04/02/2023 [facility] of Occupat ional Health - [...] Recorded Do you need help finding a [facility] career center and/or a training [...] EDT Office Visit [facility] [address] [place] [address] [phone] Drake Morrissey MD [address] [place] [address] 10/21/2025 3:30 PM EDT Office Visit [facility] [address] [place] [address] [phone] Drake Morrissey MD [address] [place] [address] [phone] documented as of this encounter Visit Diagnoses Not on filedocumented in this encounter Additional Health Concerns Assessment Noted Time PHQ-9 Depression Total Score: 0 04/02/19 24 7:00 AM EST A Body Mass Index follow-up plan has been documented for the patient 04/29/2020 3:01 PM EDT documented as of this encounter Care Teams Chainstitch Hemmer Relationship Specialty Start Date End Date Drake Morrissey MD [address] [place] [address] [phone] PCP - General Internal Medicine 09/17/24 documented as of this encounter
--- OUTSIDE RECORDS SUMMARY | 2024-10-31 06:57 | XMS_ITS | Encounter Summary ---
Author Organization [facility] Address [address] [place] [address] Care Team Providers Care Accounting Auditor Name Role Phone Ash Rinaldi Primary Care Provider [phone] Source Comments In the event this information is protected by the Federal Confidentiality of Alcohol and Drug AbusePatient Records regulations: The Federal rules restrict any use of the information to criminally investigate or prosecute any alcohol or drug abuse patient.[facility] Encounter Details Date Type Department Care Team (Late st Contact Info) Description 09/02/2019 Patient Msg Pain Management [phone] [phone] Provider, [facility] Denial for procedure Social History [...] on filedocumented in this encounter Care Teams Accounting Auditor Relationship Specialty Start Date End Date Ash Rinaldi [address] [place] [address] PCP - General Family Medicine 11/23/17 documented as of this encounter
--- OUTSIDE RECORDS SUMMARY | 2024-10-31 06:57 | XMS_ITS | Encounter Summary ---
Author Organization [facility] Address [facility][id number] [address] [place] [address] Care Team Providers Care Manager Contract Name Role Phone Drake Morrissey MD Primary Care Provider [phone] Encounter Details Date Type Department Care Team (Late st Contact Info) Description 10/23/2019 [facility] [address] [place] [address] Ash Landeros MD [address]. Provider retired 05/13/24 [place] [address] Social History Tobacco Use Types [...] Office Visit [facility] [address] [place] [phone] Drake Morrissey MD [address] [place] [address] [phone] 10/21/2025 3:30 PM EDT Office Visit [facility] [address] [place] [address] [phone] Drake Morrissey MD [address] [place] [address] [phone] documented as of this encounter Visit Diagnoses Not on filedocumented in this encounter Additional Health Concerns Assessment Noted Time PHQ-9 Depression Total Score: 0 04/22/19 20 10:00 AM EDT documented as of this encounter Care Teams Manager Contract Relationship Specialty Start Date End Date Drake Morrissey MD [address] [place] [address] [phone] PCP - General Internal Medicine 09/17/24 documented as of this encounter
--- OUTSIDE RECORDS SUMMARY | 2024-10-31 06:57 | XMS_ITS | Encounter Summary ---
Author Organization [facility] Sys tem Address [id number] [address] [place] [address] Care Team Providers Care Splicer Machine Operator Name Role Phone Drake Morrissey MD Primary Care Provider Encounter Details Date Type Department Care Team (Late st Contact Info) Description 03/13/2023 Orders Only [facility] [address] [place] [address] External, Scanning Provider Social History [...] Answer Date Recorded Total Score 2 10/10/2022 [facility] of Occupat ional Health - Occupational [...] Recorded Do you need help finding a [facility] career center and/or a training [...] EDT Office Visit [facility] [address] [place] [address] [phone] Drake Morrissey MD [address] [place] [address] [phone] 10/21/2025 3:30 PM EDT Office Visit [facility] [address] [place] [address] [phone] Drake Morrissey MD [address] [place] [address] [phone] documented as of this encounter Procedures Procedure [...] documented as of this encounter Care Teams Splicer Machine Operator Relationship Specialty Start Date End Date Drake Morrissey MD [address] [place] [address] PCP - General Internal Medicine 09/17/24 documented as of this encounter
--- OUTSIDE RECORDS SUMMARY | 2024-10-31 06:57 | XMS_ITS | Encounter Summary ---
Author Organization [facility] Sys tem Address [facility] [place][id number] [address] [place] [address] Care Team Providers Care Coin Machine Service Repairer Name Role Phone Drake Morrissey MD Primary Care Provider [phone] Encounter Details Date Type Department Care Team (Late st Contact Info) Description 04/05/2020 Orders Only [facility] [address] [place] [address] External, Scanning Provider Social History [...] often do you attend chur ch or lutheran services? Never 03/23/2020 Do you belong to any clubs o r organizations such as latter day groups, unions, fraternal or athletic groups, or [...] Answer Date Recorded PHQ-2 Score 0 02/02/2018 [facility] [place] of Occupat ional Health - Occupational Stress [...] EDT Office Visit [facility] [address] [place] [phone] Drake Morrissey MD [address] [place] [address] 10/21/2025 3:30 PM EDT Office Visit [facility] [address] [place] [address] [phone] Drake Morrissey MD [address] [place] [address] [phone] documented as of this encounter Visit Diagnoses Not on filedocumented in this encounter Additional Health Concerns Assessment Noted Time PHQ-9 Depression Total Score: 0 03/23/19 21 7:52 PM EST documented as of this encounter Care Teams Coin Machine Service Repairer Relationship Specialty Start Date End Date Drake Morrissey MD [address] [place] [address] [phone] PCP - General Internal Medicine 09/17/24 documented as of this encounter
--- OUTSIDE RECORDS SUMMARY | 2024-10-31 06:57 | XMS_ITS | Encounter Summary ---
Author Organization [employer] Address [facility] [place]-[id number] [address] [place] [address] Care Team Providers Care Handy Man Name Role Phone Drake Morrissey MD Primary Care Provider [phone] Reason for Visit * Reason Onset Date Comments Med Refill 01/11/2019 Encounter Details Date Type Department Care Team (Late Contact Info) Description 01/11/2019 Refill [facility] [address] Ash Landeros MD [address]. Provider retired 05/13/24 [place] [address] Social History Tobacco Use [...] Office Visit [facility] [place] [phone] Drake Morrissey MD [facility] [place], [place] [phone] 10/21/2025 3:30 PM EDT Office Visit [facility] [address] [place] [phone] Drake Morrissey MD [address] [place] [address] documented as of this encounter Visit Diagnoses Not on filedocumented in this encounter Additional Health Concerns Assessment Noted Time PHQ-9 Depression Total Score: 0 12/26/19 19 10:00 AM EST documented as of this encounter Care Teams Handy Man Relationship Specialty Start Date End Date Drake Morrissey MD [address] [place] [address] PCP - General Internal Medicine 09/17/24 documented as of this encounter
--- OUTSIDE RECORDS SUMMARY | 2024-10-31 06:57 | XMS_ITS | Encounter Summary ---
Author Organization [facility] Address [facility] [place]-[id number] [address] [place] [address] Care Team Providers Care Commercial Green Building Architect Name Role Phone Drake Morrissey MD Primary Care Provider [phone] Reason for Visit * Reason Comments Med Refill Encounter Details Date Type Department Care Team (Late st Contact Info) Description 09/22/2022 Refill [facility] [address] [place] [address] Ash Landeros MD [address]. Provider retired 05/13/24 [place] [address] Social History Tobacco Use Types [...] often do you attend chur ch or taoism services? Never 03/23/2020 Do you belong to any clubs o r organizations such as confucianism groups, unions, fraternal or athletic groups, or [...] Answer Date Recorded Total Score 0 04/12/2022 [facility] of Occupat ional Health - [...] Recorded Do you need help finding a [facility] career center and/or a training [...] Office Visit [facility] [address] [place] [phone] Drake Morrissey MD [address] [place] [address] 10/21/2025 3:30 PM EDT Office Visit [facility] [address] [place] [phone] Drake Morrissey MD [address] [place] [address] [phone] documented as of this encounter Visit Diagnoses Not on filedocumented in this encounter Additional Health Concerns Assessment Noted Time PHQ-9 Depression Total Score: 0 04/13/19 23 7:00 AM EST A Body Mass Index follow-up plan has been documented for the patient 04/29/2020 3:01 PM EDT documented as of this encounter Care Teams Commercial Green Building Architect Relationship Specialty Start Date End Date Drake Morrissey MD [address] [place] [address] [phone] PCP - General Internal Medicine 09/17/24 documented as of this encounter
--- OUTSIDE RECORDS SUMMARY | 2024-10-31 06:57 | XMS_ITS | Encounter Summary ---
Author Organization [facility] Address [id number] [address] [place] [address] Care Team Providers Care Dye Range Operator Name Role Phone Drake Morrissey MD Primary Care Provider [phone] Encounter Details Date Type Department Care Team (Late st Contact Info) Description 04/01/2020 Orders Only [facility] [address] [place] [address] Ninoska Hemphill CMA Iron deficiency [...] often do you attend chur ch or samaritan services? Never 03/23/2020 Do you belong to [...] Answer Date Recorded PHQ-2 Score 0 02/02/2018 [facility] [place] of Occupat ional Health - Occupational Stress [...] Office Visit [facility] [address] [place] [phone] Drake Morrissey MD [address] [place] [address] [phone] 10/21/2025 3:30 PM EDT Office Visit [facility] [address] [place] [phone] Drake Morrissey MD [address] [place] [address] [phone] documented as of this encounter Procedures Procedure Name Priority Date/Time Associated Diagnosis Comments THYROID PROFILE INCLUDES TSH FT4 Routine 03/31/2020 Routine general medical examination at a [facility] facility CBC WITH AUTO DIFFERENTIAL Routine 03/31/2020 Routine general medical examination at a [facility] IRON AND TIBC Routine 03/31/2020 Iron deficiency anemia, unspecified iron deficiency anemia type MICROALBUMIN / CREATININE URINE RATIO Routine 03/31/2020 Routine general medical examination at a [facility] HEMOGLOBIN A1C Routine 03/31/2020 Routine general medical examination at a [facility] LIPID PROFILE Routine 03/31/2020 Routine general medical examination at a [facility] COMPREHENSIVE METABOLIC PANEL Routine 03/31/2020 Routine general medical examination at a [facility] facility documented in this encounter Results * CBC auto differential (03/31/2020) 03/31/2020 us Ash Landeros MD LAB BLOOD ORDERABLES Final R esult Performing Organization Address [facility] Co de Phone Number SUNQUEST * Comprehensive metabolic panel (03/31/2020) 03/31/2020 Ash Landeros MD LAB BLOOD ORDERABLES Final R esult Performing Organization Address [facility] de Phone Number SUNQUEST * (ABNORMAL) Lipid profile (03/31/2020) External Cholesterol 199 <=200 [facility] External Cholesterol:Hdl 6.4(A) <=4.4 [facility] External Hdl Cholesterol 31(A) >=60 [facility] External Ldl (Calc) 94.4 <=100 [facility] External Triglycerides 368(A) <=150 [facility] External Very Low Lipoprotein 73.6 [facility] 03/31/2020 Ash Landeros MD LAB BLOOD ORDERABLES Final R esult Performing Organization Address [facility] de Phone Number SUNQUEST * Microalbumin / creatinine urine ratio (03/31/2020) External Microalbumin, Urine 4.4 <=30 [facility] External Alb/Creat Ratio 18.4 <=19.9 [facility] 03/31/2020 Ash Landeros MD URINE ORDERABLES Final Resul t Performing Organization Address [facility] Co de Phone Number SUNQUEST * Thyroid profile includes TSH FT4 (03/31/2020) 03/31/2020 Ash Landeros MD LAB BLOOD ORDERABLES Final R esult Performing Organization Address [facility] Co de Phone Number SUNQUEST * Hemoglobin A1c (03/31/2020) External Hemoglobin A1C 8.7 % [facility]QUEST 03/31/2020 Ash Landeros MD LAB BLOOD ORDERABLES Final R esult Performing Organization Address [facility] Co de Phone Number SUNQUEST * Iron and TIBC (03/31/2020) 03/31/2020 Ash Landeros MD LAB BLOOD ORDERABLES Final R esult Performing Organization Address [facility] Co de Phone Number SUNQUEST documented in this encounter Visit Diagnoses Diagnosis Iron deficiency anemia, unspecified iron deficiency anemia type Routine general medical examination at a health care facility documented in this encounter Additional Health Concerns Assessment Noted Time PHQ-9 Depression Total Score: 0 03/23/19 21 7:52 PM EST documented as of this encounter Care Teams Dye Range Operator Relationship Specialty Start Date End Date Drake Morrissey MD [address] [place] [address] PCP - General Internal Medicine 09/17/24 documented as of this encounter
--- OUTSIDE RECORDS SUMMARY | 2024-10-31 06:57 | XMS_ITS | Encounter Summary ---
Author Organization [facility] Sys tem Address [facility]-[id number] [address] [place] [address] Care Team Providers Care Manager Merchandising Name Role Phone Drake Morrissey MD Primary Care Provider [phone] Encounter Details Date Type Department Care Team (Late st Contact Info) Description 11/28/2022 Orders Only [facility] [address] [place] [address] External, Scanning Provider Social History [...] often do you attend chur ch or religion services? Never 03/23/2020 Do you belong to [...] Answer Date Recorded Total Score 2 10/10/2022 [facility] of Occupat ional Health [...] EDT Office Visit [facility] [address] [place], [place] [address] [phone] Drake Morrissey MD [address] [place] [address] [phone] 10/21/2025 3:30 PM EDT Office Visit [facility] [address] [place], [place] [address] [phone] Drake Morrissey MD [address] [place] [address] [phone] documented as of this encounter Procedures Procedure [...] as of this encounter Care Teams Manager Merchandising Relationship Specialty Start Date End Date Drake Morrissey MD [address] [place] [address] PCP - General Internal Medicine 09/17/24 documented as of this encounter
--- OUTSIDE RECORDS SUMMARY | 2024-10-31 06:57 | XMS_ITS | Encounter Summary ---
Author Organization [facility] Address [facility] [place] [address] Care Team Providers Care Barbecue Cook Name Role Phone Ash Rinaldi Primary Care Provider [phone] Source Comments In the event this information is protected by the Federal Confidentiality of Alcohol and Drug AbusePatient Records regulations: The Federal rules restrict any use of the information to criminally investigate or prosecute any alcohol or drug abuse patient.[facility] Encounter Details Date Type Department Care Team (Late st Contact Info) Description 10/27/2019 Get Medical Advice [facility] [address] [phone] Jhon Acosta MD [address] [facility] [address] [place] [address] RE: Visit Follow Up Question [...] on filedocumented in this encounter Care Teams Barbecue Cook Relationship Specialty Start Date End Date Ash Rinaldi [address] [place] [address] PCP - General Family Medicine 11/23/17 documented as of this encounter
--- OUTSIDE RECORDS SUMMARY | 2024-10-31 06:57 | XMS_ITS | Encounter Summary ---
Author Organization [facility] Sys [facility] Address [facility]-[id number] [address] [place] [address] Care Team Providers Care Bitumen Plant Operator Name Role Phone Drake Morrissey MD Primary Care Provider [phone] Reason for Visit * Reason Comments Med Refill Encounter Details Date Type Department Care Team (Late st Contact Info) Description 08/25/2022 Refill [facility] [address] [place] [address] Ash Landeros MD [address]. Provider retired 05/13/24 [place] [address] Social History Tobacco Use Types [...] often do you attend chur ch or sikh services? Never 03/23/2020 Do you belong to any clubs o r organizations such as advent groups, unions, fraternal or athletic groups, or [...] Answer Date Recorded Total Score 0 04/12/2022 [facility] of Occupat ional Health - Occupational Stress [...] Recorded Do you need help finding a [facility] career center and/or a training [...] EDT Office Visit [facility] [address] [place] [phone] Drake Morrissey MD [address] [place] [address] 10/21/2025 3:30 PM EDT Office Visit [facility] [address] [place] [phone] Drake Morrissey MD [address] [place] [address] [phone] documented as of this encounter Visit Diagnoses Not on filedocumented in this encounter Additional Health Concerns Assessment Noted Time PHQ-9 Depression Total Score: 0 04/13/19 23 7:00 AM EST A Body Mass Index follow-up plan has been documented for the patient 04/29/2020 3:01 PM EDT documented as of this encounter Care Teams Bitumen Plant Operator Relationship Specialty Start Date End Date Drake Morrissey MD [address] [place] [address] [phone] PCP - General Internal Medicine 09/17/24 documented as of this encounter
--- OUTSIDE RECORDS SUMMARY | 2024-10-31 06:57 | XMS_ITS | Encounter Summary ---
Author Organization [facility] Address [address] [place] [address] Care Team Providers Care Earring Maker Name Role Phone Ash Rinaldi Primary Care Provider [phone] Source Comments In the event this information is protected by the Federal Confidentiality of Alcohol and Drug AbusePatient Records regulations: The Federal rules restrict any use of the information to criminally investigate or prosecute any alcohol or drug abuse patient.[facility] Encounter Details Date Type Department Care Team (Late st Contact Info) Description 09/05/2019 Get Medical Advice General Surgery [address] [phone] Morris Grady MD [address] [place] [address] RE: Visit Follow Up Question Social [...] on filedocumented in this encounter Care Teams Earring Maker Relationship Specialty Start Date End Date Ash Rinaldi [address] [place] [address] PCP - General Family Medicine 11/23/17 documented as of this encounter
--- OUTSIDE RECORDS SUMMARY | 2024-10-31 06:57 | XMS_ITS | Encounter Summary ---
Author Organization [employer] s tem Address [facility][id number] [address] [place] [address] Care Team Providers Care Sweeping Compound Blender Name Role Phone Drake Morrissey MD Primary Care Provider [phone] Encounter Details Date Type Department Care Team (Late st Contact Info) Description 04/05/2022 Telephone [facility] [address] [place] [address] Cynthia Taylor CMA Social History [...] Answer Date Recorded Total Score 2 10/11/2021 [facility] of Occupat ional Health - Occupational Stress [...] EDT Office Visit [facility] [address] [place] [address] [phone] Drake Morrissey MD [address] [place] [address] [phone] 10/21/2025 3:30 PM EDT Office Visit [facility] [address] [place] [phone] Drake Morrissey MD [address] [place] [address] documented as of this encounter Visit Diagnoses Not on filedocumented in this encounter Additional Health Concerns Assessment Noted Time PHQ-9 Depression Total Score: 2 10/12/19 22 8:00 AM EDT A Body Mass Index follow-up plan has been documented for the patient 04/29/2020 3:01 PM EDT documented as of this encounter Care Teams Sweeping Compound Blender Relationship Specialty Start Date End Date Drake Morrissey MD [address] [place] [address] PCP - General Internal Medicine 09/17/24 documented as of this encounter
--- OUTSIDE RECORDS SUMMARY | 2024-10-31 06:57 | XMS_ITS | Encounter Summary ---
Author Organization [facility] Address [facility][id number] [address] [place] [address] Care Team Providers Care Electroplating Technician Name Role Phone Drake Morrissey MD Primary Care Provider [phone] Reason for Visit * Reason Comments Med Refill Encounter Details Date Type Department Care Team (Late st Contact Info) Description 06/04/2022 Refill [facility] [address] [place] [address] Ash Landeros MD [address]. Provider retired 05/13/24 [place] [address] Social History Tobacco Use Types [...] Answer Date Recorded Total Score 0 04/12/2022 [facility] of Occupat ional Health [...] Recorded Do you need help finding a [facility] career center and/or a training [...] EDT Office Visit [facility] [address] [place] [phone] Drake Morrissey MD [address] [place] [phone] 10/21/2025 3:30 PM EDT Office Visit [facility] [address] [place] [phone] Drake Morrissey MD [address] [place] [address] [phone] documented as of this encounter Visit Diagnoses Not on filedocumented in this encounter Additional Health Concerns Assessment Noted Time PHQ-9 Depression Total Score: 0 04/13/19 23 7:00 AM EST A Body Mass Index follow-up plan has been documented for the patient 04/29/2020 3:01 PM EDT documented as of this encounter Care Teams Electroplating Technician Relationship Specialty Start Date End Date Drake Morrissey MD [address] [place] [address] [phone] PCP - General Internal Medicine 09/17/24 documented as of this encounter
--- OUTSIDE RECORDS SUMMARY | 2024-10-31 06:58 | XMS_ITS | Encounter Summary ---
Author Organization [facility] tem Address [facility] [place][id number] [address] [place] [address] Care Team Providers Care Auricular Detoxification Specialist Name Role Phone Drake Morrissey MD Primary Care Provider [phone] Encounter Details Date Type Department Care Team (Late st Contact Info) Description 12/19/2023 Orders Only [facility] [address] [place] [address] Kamla Guzman CMA Encounter for [...] often do you attend chur ch or hoahaoism services? Never 03/23/2020 Do you belong to [...] Answer Date Recorded Total Score 1 10/16/2023 [facility] of Occupat ional Health - Occupational Stress [...] EDT Office Visit [facility] [address] [place] [address] [phone] Drake Morrissey MD [address] [place] [address] [phone] 10/21/2025 3:30 PM EDT Office Visit [facility] [address] [place] [phone] Drake Morrissey MD [address] [place] [address] [phone] documented as of this encounter Procedures Procedure [...] documented as of this encounter Care Teams Auricular Detoxification Specialist Relationship Specialty Start Date End Date Drake Morrissey MD [address] [place] [address] PCP - General Internal Medicine 09/17/24 documented as of this encounter
--- OUTSIDE RECORDS SUMMARY | 2024-10-31 06:58 | XMS_ITS | Encounter Summary ---
Author Organization [facility] Sys tem Address [facility]-[id number] [address] [place] [address] Care Team Providers Care Government Relations Director Name Role Phone Drake Morrissey MD Primary Care Provider [phone] Encounter Details Date Type Department Care Team [...] Answer Date Recorded Total Score 1 10/16/2023 [facility] [place] of Occupat ional Health - Occupational [...] EDT Office Visit [facility] [address] [place], [place] [address]N[place] [phone] Drake Morrissey MD [address] [place] [address] [phone] 10/21/2025 3:30 PM EDT Office Visit [facility] [address] [place] [address] [phone] Drake Morrissey MD [address] [place] [address] [phone] documented as of this encounter Procedures Procedure [...] documented as of this encounter Care Teams Government Relations Director Relationship Specialty Start Date End Date Drake Morrissey MD [address] [place] [address] PCP - General Internal Medicine 09/17/24 documented as of this encounter
--- OUTSIDE RECORDS SUMMARY | 2024-10-31 06:58 | XMS_ITS | Encounter Summary ---
Author Organization [facility] Sys tem Address [facility]-[id number] [address] [place] [address] Care Team Providers Care Order To Delivery Supervisor Name Role Phone Drake Morrissey MD Primary Care Provider [phone] Encounter Details Date Type Department Care Team (Late st Contact Info) Description 12/20/2023 Orders Only [facility] [address] [place] [address] External, Scanning Provider Social History [...] often do you attend chur ch or sabianist services? Never 03/23/2020 Do you belong to [...] Answer Date Recorded Total Score 1 10/16/2023 [facility] of Occupat ional Health - Occupational Stress [...] you need help finding a [facility] career center and/or a training program? [...] EDT Office Visit [facility] [address] [place], [place] [address] [phone] Drake Morrissey MD [address] [place] [address] [phone] 10/21/2025 3:30 PM EDT Office Visit [facility] [address] [place], [place] [address] [phone] Drake Morrissey MD [address] [place] [address] [phone] documented as of this encounter Procedures Procedure [...] documented as of this encounter Care Teams Order To Delivery Supervisor Relationship Specialty Start Date End Date Drake Morrissey MD [address] [place] [address] [phone] PCP - General Internal Medicine 09/17/24 documented as of this encounter
--- OUTSIDE RECORDS SUMMARY | 2024-10-31 06:58 | XMS_ITS | Encounter Summary ---
Author Organization [facility] Sys tem Address [facility][id number] [address] [place] [address] Care Team Providers Care Jv Baseball Coach Name Role Phone Drake Morrissey MD Primary Care Provider [phone] Encounter Details Date Type Department Care Team (Late st Contact Info) Description 01/20/2021 Orders Only [facility] [address] [place] [address] External, Scanning Provider Social History [...] often do you attend chur ch or christian services? Never 03/23/2020 Do you belong to [...] Answer Date Recorded Total Score 0 12/27/2020 [facility] of Occupat ional Health - Occupational Stress [...] Recorded Do you need help finding a [employer] ocal career center and/or a training program? [...] Office Visit [facility] [address] [place] [address] [phone] Drake Morrissey MD [address] [place] [address] 10/21/2025 3:30 PM EDT Office Visit [facility] [address] [place] [address] [phone] Drake Morrissey MD [address] [place] [address] [phone] documented as of this encounter Procedures Procedure [...] documented as of this encounter Care Teams Jv Baseball Coach Relationship Specialty Start Date End Date Drake Morrissey MD [address] [place] [address] [phone] PCP - General Internal Medicine 09/17/24 documented as of this encounter
--- OUTSIDE RECORDS SUMMARY | 2024-10-31 06:58 | XMS_ITS | Encounter Summary ---
Author Organization [facility] Address [facility] [id number] [address] [place] [address] Care Team Providers Care Petal Shaper Hand Name Role Phone Drake Morrissey MD Primary Care Provider [phone] Encounter Details Date Type Department Care Team (Late st Contact Info) Description 01/10/2022 Orders Only [facility] [address] [place] [address] Kamla Guzman CMA Secondary diabetes mellitus ([facility]) Social History Tobacco Use Types Packs/Day [...] often do you attend chur ch or jehovah's witness services? Never 03/23/2020 Do you belong to [...] Answer Date Recorded Total Score 2 10/11/2021 [facility] - Occupational Stress Questionnaire Answer Date [...] Office Visit [facility] [address] [place] [address] [phone] Drake Morrissey MD [address] [place] [address] [phone] 10/21/2025 3:30 PM EDT Office Visit [facility] [address] [place] [address] [phone] Drake Morrissey MD [address] [place] [address] [phone] documented as of this encounter Procedures Procedure [...] documented as of this encounter Care Teams Petal Shaper Hand Relationship Specialty Start Date End Date Drake Morrissey MD [address] [place] [address] [phone] PCP - General Internal Medicine 09/17/24 documented as of this encounter
--- OUTSIDE RECORDS SUMMARY | 2024-10-31 06:58 | XMS_ITS | Encounter Summary ---
Author Organization [facility] Address [facility][id number] [address] [place] [address] Care Team Providers Care Thread Milling Machine Set Up Operator Name Role Phone Drake Morrissey MD Primary Care Provider [phone] Encounter Details Date Type Department Care Team (Late st Contact Info) Description 01/09/2022 Telephone [facility] [address] [place] [address] Ash Landeros MD [address]. Provider retired 05/13/24 [place] [address] Social History Tobacco Use Types [...] any clubs o r organizations such as holiness groups, unions, fraternal or athletic groups, or [...] Answer Date Recorded Total Score 2 10/11/2021 [facility] of Occupat ional Health - [...] Recorded Do you need help finding a [employer] ocal career center and/or a training program? [...] EDT Office Visit [facility] [address] [place] [address] [phone] Drake Morrissey MD [address] [place] [address] [phone] 10/21/2025 3:30 PM EDT Office Visit [facility] [address] [place] [address] [phone] Drake Morrissey MD [address] [place] [address] [phone] documented as of this encounter Visit Diagnoses Not on filedocumented in this encounter Additional Health Concerns Assessment Noted Time PHQ-9 Depression Total Score: 2 10/12/19 8:00 AM EDT A Body Mass Index follow-up plan has been documented for the patient 04/29/2020 3:01 PM EDT documented as of this encounter Care Teams Thread Milling Machine Set Up Operator Relationship Specialty Start Date End Date Drake Morrissey MD [facility] [place] [phone] PCP - General Internal Medicine 09/17/24 documented as of this encounter
--- OUTSIDE RECORDS SUMMARY | 2024-10-31 06:58 | XMS_ITS | Encounter Summary ---
Author Organization [facility] Sys tem Address [id number] [address] [place] [address] Care Team Providers Care Bench Tool Maker Name Role Phone Drake Morrissey MD Primary Care Provider [phone] Encounter Details Date Type Department Care Team (Late st Contact Info) Description 04/16/2024 Orders Only [facility] [address] [place] [address] External, Scanning Provider Social History [...] Answer Date Recorded Total Score 1 10/16/2023 [facility] of Occupat ional Health - Occupational Stress [...] Recorded Do you need help finding a [facility] career center and/or a training program? No [...] EDT Office Visit [facility] [address] [place], [place] [address] [phone] Drake Morrissey MD [address] [place] [address] [phone] 10/21/2025 3:30 PM EDT Office Visit [facility] [address] [place] [address] [place] [phone] Drake Morrissey MD [address] [place] [address] [phone] documented as of this encounter Procedures Procedure [...] documented as of this encounter Care Teams Bench Tool Maker Relationship Specialty Start Date End Date Drake Morrissey MD [facility] [place] [address] PCP - General Internal Medicine 09/17/24 documented as of this encounter
--- OUTSIDE RECORDS SUMMARY | 2024-10-31 06:58 | XMS_ITS | Clinical Summary ---
Author Organization [employer] tem Address [facility] [place][id number] [address] [place] [address] Care Team Providers Care Certified Nutritionist Name Role Phone Drake Morrissey MD Primary Care Provider [phone] Allergies Active Allergy Reactions Criticality Noted Date Comments Codeine Other (See Comments),Swelling High 11/01/2017 Swelling of the tongue Swelling of tongue Lorazepam Rash Low 11/11/2017 Becomes combative/ delirious Medications lancets (ULTRA THIN LANCETS) 30 gauge misc TEST TWICE DAILY *K85.91* 100 each 5 019 Active ZENPEP 40,000-126,000- 168,000 unit capsule,delayed release(DR/EC) TAKE 2 CAPSULES BY MOUTH WITH MEALS AND 1 CAPSULE WITH EACH SNACK 270 capsule 5 019 Active blood sugar diagnostic (TRUE METRIX GLUCOSE TEST STRIP) stripIndications :Necrotizing pancreatitis TEST TWICE A DAY 50 strip 7 Active psyllium husk (METAMUCIL) 0.4 gram capsule Take by mouth in the morning. Active multivitamin (THERAGRAN) tablet Take 1 tablet by mouth in the morning. Active DEXCOM G6 REFRACTORY MANAGER misc 022 Active DEXCOM G6 SENSOR device Active DEXCOM G6 TRANSMITTER device Active TOUSANDER SOLOSTAR U-300 INSULIN 300 unit/mL (1.5 mL) insulin pen 023 Active lancing device misc 023 Active BD ULTRA-FINE NAREN PEN NEEDLE 32 gauge x 5/32 needle in the morning and at noon and in the evening and before bedtime. 023 Active diclofenac sodium (VOLTAREN) 1 % gel Apply to affected area tid 100 g 7 024 Active cholecalciferol, vitamin D3, (VITAMIN D3) 5,000 units capsule 1 capsule (5,000 Units total). 024 Active T:SLIM X2 CONTROL-IQ misc Active ACCU-CHEK GUIDE L1-L2 CTRL MISTY solution Active HumaLOG U-100 Insulin 100 unit/mL injection 024 Active carvediloL (COREG) 25 mg tablet TAKE 1 TABLET (25 MG TOTAL) BY MOUTH IN THE MORNING AND BEFORE BEDTIME 180 tablet 3 025 Active pantoprazole (PROTONIX) 40 mg EC tablet TAKE 1 TABLET (40 MG TOTAL) BY MOUTH IN THE MORNING 90 tablet 3 025 Active atorvastatin (LIPITOR) 10 mg tabletIndication s:Mixed hyperlipidemia TAKE 1 TABLET (10 MG TOTAL) BY MOUTH IN THE MORNING 90 tablet 3 025 Active meclizine (ANTIVERT) 25 mg tablet Take 1 tablet (25 mg total) by mouth 3 (three) times a day as needed for dizziness. 90 tablet 1 025 Active ondansetron (ZOFRAN) 4 mg tabletIndication s:Necrotizing pancreatitis Take 1 tablet (4 mg total) by mouth every 8 (eight) hours as needed for nausea or vomiting. 30 tablet 5 025 Active amLODIPine (NORVASC) 5 mg tabletIndication s:Essential hypertension, benign Take 1 tablet (5 mg total) by mouth in the morning. 90 tablet 2 025 Active docusate sodium (STOOL SOFTENER) 100 mg capsule Take 1 capsule (100 mg total) by mouth in the morning and 1 capsule (100 mg total) before bedtime. 180 capsule 3 025 Active ferrous sulfate 325 (65 FE) MG tablet Take 1 tablet (325 mg total) by mouth in the morning. 90 tablet 3 025 Active hydroCHLOROthiaz bryce (HYDRODIURIL) 25 mg tabletIndication s:Essential hypertension, benign Take 1 tablet (25 mg total) by mouth daily. 90 tablet 2 025 Active potassium chloride (KLOR-CON M10) 10 MEQ CR tabletIndication s:Essential hypertension, benign Take 1 tablet (10 mEq total) by mouth in the morning and 1 tablet (10 mEq total) before bedtime. TAKE 1 TABLET (10 MEQ TOTAL) BY MOUTH IN THE MORNING. 180 tablet 3 Active tiZANidine (ZANAFLEX) 4 mg tablet Take 1 tablet (4 mg total) by mouth every 8 (eight) hours as needed for muscle spasms. 270 tablet 3 Active HumaLOG KwikPen Insulin 100 unit/mL insulin pen 1:25 CORRECTIVE SCALE BEFORE MEAL 3TIMES DAILY SUBCUTANEOUSLY DIRECTED*EXPECT UP TO 20UNITS DAILY 023 2024 Discontinued amLODIPine (NORVASC) 10 mg tablet TAKE 1 TABLET BY MOUTH EVERY DAY 90 tablet 3 023 2024 Discontinued(P atient Stopped On Own) benzonatate (TESSALON PERLES) 200 mg capsule Take 1 capsule (200 mg total) by mouth 3 (three) times a day as needed for cough. 30 capsule 1 024 2024 Discontinued(P atient Stopped On Own) lidocaine (LIDODERM) 5 % Place 1 patch on the skin in the morning. 30 patch 7 024 2024 Discontinued(P atient Stopped On Own) docusate sodium (COLACE) 100 mg capsule 024 2024 Discontinued(P atient Stopped On Own) ondansetron (ZOFRAN) 4 mg tabletIndication s:Necrotizing pancreatitis Take 1 tablet (4 mg total) by mouth every 8 (eight) hours as needed for nausea or vomiting. 30 tablet 5 024 2024 Discontinued(R eorder) docusate sodium (STOOL SOFTENER) 100 mg capsule Take 1 capsule (100 mg total) by mouth in the morning and 1 capsule (100 mg total) before bedtime. 180 capsule 3 024 2024 Discontinued(R eorder) tiZANidine (ZANAFLEX) 4 mg tablet Take 1 tablet (4 mg total) by mouth every 8 (eight) hours as needed for muscle spasms. 270 tablet 3 024 2024 Discontinued(R eorder) ferrous sulfate 325 (65 FE) mg tablet Take 1 tablet (325 mg total) by mouth in the morning. 90 tablet 3 024 2024 Discontinued(R eorder) potassium chloride (KLOR-CON M10) 10 MEQ CR tablet Take 1 tablet (10 mEq total) by mouth in the morning and 1 tablet (10 mEq total) before bedtime. TAKE 1 TABLET (10 MEQ TOTAL) BY MOUTH IN THE MORNING. 180 tablet 3 024 2024 Discontinued(R eorder) hydroCHLOROthiaz bryce (HYDRODIURIL) 25 mg tablet TAKE 1 TABLET (25 MG TOTAL) BY MOUTH DAILY. 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 Encounters Date Type Department Care Team Description 10/20/2024 3:00 PM EDT Office Visit [facility] [address] [place] [phone] Drake Morrissey MD Necrotizing pancreatitis (Primary Dx); Secondary diabetes mellitus ([facility]); Mixed hyperlipidemia; Essential hypertension, benign; Encounter for screening mammogram for malignant neoplasm of breast 10/18/2024 Travel 10/15/2024 Refill [facility] [address] [facility] [place] [phone] Viktoriya Salvador, CABINETMAKER SUPERVISOR-CUSTOMER SUPPORT MANAGER 08/15/2024 Refill [facility] [address] [place] [phone] Drake Morrissey MD 08/13/2024 Refill [facility] [address] [place] [phone] Ash Landeros MD Mixed hyperlipidemia from Last 3 Months Immunizations Immunization Administration [...] week 03/23/2020 How often do you attend [facility] or mosque services? Never 03/23/2020 Do you belong to any clubs o r organizations such as mosque groups, unions, fraternal or athletic groups, or [...] Answer Date Recorded Total Score 0 10/18/2024 [facility] - Occupational Stress Questionnaire Answer Date Recorded [...] Recorded Do you need help finding a [facility] career center and/or a training program? [...] Pulse 88 10/20/2024 3:06 PM EDT Temperature 36.6 C (97.8 F) 10/16/2023 3:08 PM EDT Respiratory Rate 18 10/20/2024 3:06 PM EDT Oxygen Saturation 96% 10/20/2024 3:06 PM EDT Inhaled Oxygen Concentration - - Weight 91.6 kg (202 lb) 10/20/2024 3:06 PM EDT Height 159.4 cm (5' 2.75 ) 10/20/2024 3:06 PM ED T Body Mass Index 36.07 10/20/2024 3:06 PM EDT Plan of Treatment Upcoming Encounters Date Type Department Care Team (Late st Contact Info) Description 04/30/2025 9:00 AM EDT Office Visit [facility] [address] [place] [phone] Drake Morrissey MD [address] [place] [address] [phone] 10/21/2025 3:30 PM EDT Office Visit [facility] [address] [place] [phone] Drake Morrissey MD [address] [place] [address] [phone] Health Maintenance Due Date Last Done Comments Zoster (Shingles) Vaccine (1 of 2) 2007 Diabetic Foot Exam 04/13/2023 04/12/2022, 04/29/2020 Influenza Vaccine 10/13/2024 12/14/2019, , 11/03/2018, Additional history exists Mammogram 12/18/2024 12/19/2023, 10/14, 10/23/2019, Additional history exists Diabetic Ophthalmology Exam 12/19/2024 12/20/2023, 1 02/13/2022 Statin Use: Diabetic 08/13/2025 08/13/2024 Depression Screening 10/18/2025 10/18/2024 Fall Risk Screening 10/18/2025 10/18/2024 Adult BMI Follow Up Plan 10/20/2025 10/20/2024 Adult BMI Screening 10/20/2025 10/20/2024 Medicare Annual Wellness Visit 10/20/2025 0 10/20/2024, 10/16/2023, 10/12/2022, Additional history exists Tobacco Screening 10/20/2025 10/20/2024 DTaP,Tdap and Td Vaccines (2 - Td [...] Recently Relevant to Health Maintenance Results * HM DIABETES EYE EXAM (12/20/2023 9:34 AM EST) us Scanning Provider External HEALTH MAINTENANCE Fi nal Result MANUALLY TRANSCRIBED RESULTS * Mammography screening bilateral with CAD (12/19/2023 12:54 PM EST) Anatomical Region Laterality Modality Breast Bilateral Mammography us Ash Landeros MD IMG MAMMOGRAPHY ORDERABLES F inal Result from Last 3 Months or Most Recently Relevant to Health Maintenance Insurance [facility] MEDICARE AUTO INSURANCE Care Teams Certified Nutritionist Relationship Specialty Start Date End Date Drake Morrissey MD [address] [place] [id number] PCP - General Internal Medicine 09/17/24
--- OUTSIDE RECORDS SUMMARY | 2024-10-31 06:58 | XMS_ITS | Encounter Summary ---
Author Organization [facility] Address [facility][id number] [address] [place] [address] Care Team Providers Care Refrigeration Unit Repairer Name Role Phone Drake Morrissey MD Primary Care Provider [phone] Encounter Details Date Type Department Care Team (Late st Contact Info) Description 11/11/2021 Orders Only [facility] [address] [place] [address] Kamla Guzman CMA Encounter for screening mammogram for malignant neoplasm of breast; Secondary diabetes mellitus ([facility]) Social History Tobacco Use Types Packs/Day Years [...] often do you attend chur ch or holiness services? Never 03/23/2020 Do you belong to any clubs o r organizations such as yazidism groups, unions, fraternal or athletic groups, or [...] Answer Date Recorded Total Score 2 10/11/2021 [facility] of Occupat ional Health - Occupational Stress [...] EDT Office Visit [facility] [address] [place] [address] [phone] rDake Morrissey MD [address] [place] [address] [phone] 10/21/2025 3:30 PM EDT Office Visit [facility] [address] [place] [phone] Drake Morrissey MD [address] [place] [phone] documented as of this encounter Procedures Procedure Name Priority Date/Time Associated Diagnosis Comments MAMM SCREENING BILATERAL W CAD Routine 11/08/2021 Encounter for screening mammogram for malignant neoplasm of breast THYROID PROFILE INCLUDES TSH FT4 Routine 11/08/2021 Secondary diabetes mellitus ([facility]) CBC WITH AUTO DIFFERENTIAL Routine 11/08/2021 Secondary diabetes mellitus ([facility]) MICROALBUMIN / CREATININE URINE RATIO Routine 11/08/2021 Secondary diabetes mellitus ([facility]) HEMOGLOBIN A1C Routine 11/08/2021 Secondary diabetes mellitus ([facility]) LIPID PROFILE Routine 11/08/2021 Secondary diabetes mellitus ([facility]) COMPREHENSIVE METABOLIC PANEL Routine 11/08/2021 Secondary diabetes mellitus ([facility]) documented in this encounter Results * CBC auto differential (11/08/2021) 11/08/2021 Ash Landeros MD LAB BLOOD ORDERABLES Final R esult [facility] * Comprehensive metabolic panel (11/08/2021) 11/08/2021 Ash Landeros MD LAB BLOOD ORDERABLES Final R esult Performing Organization Address [facility] de Phone Number [facility] * (ABNORMAL) Lipid profile (11/08/2021) External Cholesterol:Hdl 6.0 [facility] External Ldl (Calc) 74.6 [facility] External Triglycerides 382(A) <=150 [facility] External Very Low Lipoprotein 76.4 [facility] 11/08/2021 Ash Landeros MD LAB BLOOD ORDERABLES Final R esult Performing Organization Address [facility] Phone Number [facility] * Microalbumin - Albumin: Creatinine Urine Ratio (11/08/2021) 11/08/2021 Ash Landeros MD URINE ORDERABLES Final Resul t Performing Organization Address [facility] de Phone Number [facility] * Thyroid profile includes TSH FT4 (11/08/2021) 11/08/2021 Result [facility] Ash Landeros MD LAB BLOOD ORDERABLES Final R esult Performing Organization Address [facility] de Phone Number [facility] * Hemoglobin A1c (11/08/2021) Pathologist [facility] External Hemoglobin A1C 11.1 % [facility] 11/08/2021 Ash Landeros MD LAB BLOOD ORDERABLES Final R esult Performing Organization Address [facility] de Phone Number [facility] * Mammography screening bilateral with CAD (11/08/2021) Anatomical Region Laterality Modality Breast Bilateral Mammography Result [facility] Ash Landeros MD IMG MAMMOGRAPHY ORDERABLES F [...] documented as of this encounter Care Teams Refrigeration Unit Repairer Relationship Specialty Start Date End Date Drake Morrissey MD [address] [place] [address] PCP - General Internal Medicine 09/17/24 documented as of this encounter
--- OUTSIDE RECORDS SUMMARY | 2024-10-31 06:58 | XMS_ITS | Encounter Summary ---
Author Organization [facility] Address [facility] [id number] [address] [place] [address] Care Team Providers Care Abstracter Name Role Phone Drake Morrissey MD Primary Care Provider [phone] Encounter Details Date Type Department Care Team (Late st Contact Info) Description 01/31/2022 Telephone [facility] [address] [place] [address] Yohana Keller LPN Social History [...] often do you attend chur ch or synagogue services? Never 03/23/2020 Do you belong to any clubs o r organizations such as jewish groups, unions, fraternal or athletic groups, or [...] Answer Date Recorded Total Score 2 10/11/2021 [facility] of Occupat ional Health - Occupational Stress [...] her daughter has bronchitis and strep throat. [facility] * Telephone Encounter - Ash Landeros MD - 01/31/2022 12:52 PM EST Cephalexin sent to [facility] documented in this encounter Plan of Treatment Upcoming Encounters Date Type Department Care Team (Late st Contact Info) Description 04/30/2025 9:00 AM EDT Office Visit [facility] [address] [place] [phone] Drake Morrissey MD [address] [place] [address] 10/21/2025 3:30 PM EDT Office Visit [facility] [address] [place] [phone] Drake Morrissey MD [address] [place] [phone] documented as of this encounter Visit Diagnoses Not on filedocumented in this encounter Additional Health Concerns Assessment Noted Time PHQ-9 Depression Total Score: 2 10/12/19 22 8:00 AM EDT A Body Mass Index follow-up plan has been documented for the patient 04/29/2020 3:01 PM EDT documented as of this encounter Care Teams Abstracter Relationship Specialty Start Date End Date Drake Morrissey MD [address] [place] [phone] PCP - General Internal Medicine 09/17/24 documented as of this encounter
--- OUTSIDE RECORDS SUMMARY | 2024-10-31 06:58 | XMS_ITS | Encounter Summary ---
Author Organization [facility] Sys tem Address [id number] [address] [place] [address] Care Team Providers Care Touch Up Painter Hand Name Role Phone Drake Morrissey MD Primary Care Provider [phone] Encounter Details Date Type Department Care Team (Late st Contact Info) Description 01/02/2024 Orders Only [facility] [address] [place] [address] External, Scanning Provider Social History [...] any clubs o r organizations such as catholic groups, unions, fraternal or athletic groups, [...] Answer Date Recorded Total Score 1 10/16/2023 [facility] [place] of Occupat ional Health - Occupational Stress [...] EDT Office Visit [facility] [address] [place] [address] [phone] Drake Morrissey MD [address] [place] [address] [phone] 10/21/2025 3:30 PM EDT Office Visit [facility] [address] [place] [address] [phone] Drake Morrissey MD [address] [place] [address] [phone] documented as of this encounter Procedures Procedure [...] documented as of this encounter Care Teams Touch Up Painter Hand Relationship Specialty Start Date End Date Drake Morrissey MD [address] [place] [address] PCP - General Internal Medicine 09/17/24 documented as of this encounter
[2024-10-31 07:23] LABS: Hematocrit 40.3 % (36.0-48.0); Hemoglobin 13.6 g/dL (12.0-16.0); Mean Corpuscular HGB Conc 33.7 g/dL (29.9-35.2); Mean Corpuscular Hemoglobin 29.6 pg (26.7-34.0); Mean Corpuscular Volume 87.8 fL (81.0-99.0); Platelet Count 313 10^3/uL (150-450); Red Blood Count 4.59 10^6/uL (4.20-5.40); White Blood Count 12.5 10^3/uL (4.0-11.0)
[2024-10-31 07:39] LABS: Alanine Aminotransferase 36 U/L (14-59); Albumin Globulin Ratio 0.8; Albumin Level 3.6 g/dL (3.4-5.0); Alkaline Phosphatase 74 U/L (46-116); Anion Gap 12.8; Aspartate Amino Transferase 20 U/L (15-37); Blood Urea Nitrogen 12.0 mg/dL (7.0-18.0); Calcium 8.8 mg/dL (8.5-10.1); Carbon Dioxide 31.7 mmol/L (21.0-32.0); Chloride 103 mmol/L (98-107); Cholesterol 140 mg/dL (<=200); Estimated GFR (African America >60 (>=60 mL/min/1.73m^2); Estimated GFR (Non-African Ame >60 (>=60 mL/min/1.73m^2); Globulin 4.3 g/dL; Glucose 120 mg/dL (74-106); HDL Cholesterol 34 mg/dL (40-60); Potassium 3.5 mmol/L (3.5-5.1); Sodium 144 mmol/L (136-145); Thyroid Stimulating Hormone 1.714 uIU/mL (0.358-3.740); Total Protein 7.9 g/dL (6.4-8.2); Triglycerides 205 mg/dL (<=150); VLDL CHOLESTEROL 41.0 mg/dL
[2024-10-31 08:11] LABS: Basophils Abs Manual 0.00 10^3/uL (0.00-0.10); Basophils Percent Manual 0.0 % (0.2-2.0); Eosinophils Absolute Manual 0.62 10^3/uL (0.00-0.70); Eosinophils Percent Manual 5.0 % (0.9-7.0); Lymphocytes Absolute Manual 3.87 10^3/uL (1.20-3.80); Lymphocytes Percent Manual 31.0 % (20.5-60.0); Monocytes Absolute Manual 0.87 10^3/uL (0.30-0.80); Monocytes Percent Manual 7.0 % (1.7-12.0); Segmented Neut Absolute Manual 7.12 10^3/uL (1.4-6.5); Segmented Neutrophils % Manual 57.0 (43.0-75.0)
== END 2024-10-31 06:51 | disposition home or self-care (01) ==
LOC: LAB 06:54
PROVIDERS: PCP Student in an Organized Health Care Education/Training Program; Visit Provider Student in an Organized Health Care Education/Training Program
DX: E78.2 Mixed hyperlipidemia (principal); I10 Essential (primary) hypertension; E13.9 Other specified diabetes mellitus without complications
CPT/HCPCS: 36415; 80053; 80061; 83036; 84439; 84443; 85007; 85027

== ENCOUNTER 2024-12-22 14:17 | Outpatient (OUT) | payer MEDICARE, SELFPAY ==
--- OUTSIDE RECORDS SUMMARY | 2024-12-22 14:21 | XMS_ITS | Clinical Summary ---
Author Organization [facility] Address [address] [place] [address] Care Team Providers Care Balance Bridge Assembler Name Role Phone Ash Rinaldi Primary Care Provider [phone] Allergies Active AllergyReactionsCriticalityNoted DateCommentsLorazepamOther: See Comments 11/11/2017 Becomes combative/ delirious GzfmudyCuxpexya25/23/2018 Swelling of the tongue Medications MedicationSigDispense QuantityRefillsLast FilledStart DateEnd DateStatus blood sugar diagnostic (ONETOUCH VERIO) test strip Use as instructed 100 Strip Active MULTI-VITAMIN ORAL Take 1 tablet by mouth once daily.Active amLODIPine (NORVASC) 10 mg tablet Take 10 mg by mouth once daily. [address]002/14/2018Active carvedilol (COREG) 25 mg tablet Take 25 mg by mouth twice daily with meals.Active ferrous sulfate (IRON) 325 mg (65 mg iron) tablet Take 325 mg by mouth once daily.Active docusate sodium (COLACE) 100 mg capsule Take 100 mg by mouth twice daily.Active acetaminophen (TYLENOL) 325 mg tablet Take 2 tablets by mouth every 6 hours as needed for Pain. 15 tablet 08/05/2018Active pantoprazole DR (PROTONIX) 40 mg tablet Take 40 mg by mouth once daily.Active tiZANidine (ZANAFLEX) 4 mg tablet Take 4 mg by mouth daily at bedtime.04/20/2019Active psyllium husk (METAMUCIL) 0.4 gram cap Take by mouth once daily.Active glimepiride (AMARYL) 2 mg tablet 4 mg daily with breakfast. 1Active ydcpew-ulzkxpuv-okfslyh (ZENPEP) 40,000-126,000- 168,000 unit delayed release capsule Take 2 capsules by mouth w MEALS. Take 1 tablet with each snack. 540 capsule 01/10/2021ctive meloxicam (MOBIC) 15 mg tablet TAKE 1 TABLET BY MOUTH EVERY DAY 30 tablet ctive diclofenac (VOLTAREN) 1 % topical gel Indications:CostochondritisAPPLY 2GM TO AFFECTED AREA TWICE DAILY NEEDED FOR PAIN DIRECTED 100 g ctive Active Problems Patient Care Coordination No te Formatting of this note migh t be different from the original. Patient Summary: 62 yo female with no known PMH who is transferred from OSH for further management of necrotizing pancreatitis of unknown etiology, with hospital course c/b c difficle colitis, ileus,and encephalopathy requiring intubation. Major Interval Events: 11/04: Admitted to MICU. Delirious, tachypneic, HTN and tachycardia on admission. Intubated. CT A/P showing necrotizing pancreatitis involving 50% pancreas. 11/05: Nonfocal neuro exam but still not following commands. CXR with new bilat infiltrates. C diff PCR positive, EIA negative. 11/06: Febrile to 101F. HDS. Slightly less distended. HPB planning ex lap with pancreas debridement.IV access issues. Dispo: Remains in MICU Discussed with staff ProblemNoted DateDiagnosed DateSecondary diabetes otqktkiw93/08/2021 Assessment & Plan (08/25/2020 3:18 PM EDT): Assessment: s/p partial pancreas removal Is on oral medication No recent A1c on file Daily blood sugars are stated to be between 110-130 Myofascial pain aswooluy50/11/2020Gastroesophageal reflux xptiiyv6603/03/2019 Assessment & Plan (08/25/2020 3:17 PM EDT): Assessment: States is well controlled with medication and denies any recent exacerbations Follows with PCP and GI Pancreas tail zpeuxk0007/31/2018Pancreatitis, tzstifuiiar29/05/2018 Assessment & Plan (08/25/2020 3:13 PM EDT): Assessment: states occurred in 10/2017 Treated with partial pancreas removal, splenectomy and cholecystectomy Follows with Dr. Grady Is on supplemental enzymes Malnutrition of moderate ollfqx8412/29/2017Obesity, Class I, BMI 30-34.91 Assessment & Plan (08/25/2020 3:19 PM EDT): Assessment: Body mass index is 31.26 kg/m??. Iron deficiency lyvzlq9811/27/2017 Assessment & Plan (08/25/2020 3:19 PM EDT): Assessment: states has been well controlled with oral iron supplement No recent iron infusion or blood transfusion - history of blood transfusions in ~ 2018 without stated issue Malnutrition of mild chgxif8911/06/2017 Assessment & Plan (11/06/2017 12:06 PM EDT): PLAN: - Consider TPN soon if unable to start post pyloric TF d/t ileus History of ARDS11/05/2017 Assessment & Plan (08/25/2020 3:14 PM EDT): Assessment: states was at the time of necrotizing pancreatitis in October 2017 States is doing well, no longer requiring supplemental oxygen or use of a nebulizer or an inhaler Assessment & Plan (11/05/2017 2:14 PM EDT): Assessment: Secondary to necrotizing pancreatitis PLAN: - Lung protective ventilation Acute sibvhshhlnrwqu79/24/2018 Assessment & Plan (08/25/2020 3:16 PM EDT): [...] sedation as able - Management of pancreatitis Ileus11/05/2017 Assessment & Plan (11/06/2017 12:07 PM EDT): [...] 'necrotizing pancreatitis' and 'c difficile' C. difficile zqpmrxta41/24/2018 Assessment & Plan (11/06/2017 12:07 PM EDT): Assessment: PCR positive but EIA negative (11/05). C/b ileus. PLAN: - Appreciate ID recommendations - IV flagyl, PO and rectal vanc Assessment & Plan (11/05/2017 2:00 PM EDT): Assessment: C/b ileus PLAN: - IV flagyl, PO and rectal vanc - ID consult Brktiooupxqwy91/24/2018 Assessment & Plan (11/06/2017 12:08 PM EDT): PLAN: - Continue D5 water infusion - Trend BMP Assessment & Plan (11/05/2017 2:00 PM EDT): PLAN: - Continue D5 water infusion - Trend BMP Necrotizing wsoekvkaewxg81/23/2018 Assessment & Plan (11/06/2017 12:08 PM EDT): [...] if unable to start TF d/t ileus Vvvzndgkjrob19/22/2018 Overview (11/05/2017): Added automatically from request for surgery [id number] Aizbvlarhtjn62/21/2018 Assessment & Plan (08/25/2020 3:17 PM EDT): Assessment: States is well controlled with medication Follows with PCP Denies any chest pain, shortness of breath or any palpitations. Denies any known prior [place], CVA or stent placement. Resolved Problems ProblemNoted DateDiagnosed DateResolved BsdoSkonc01Obesity, Class II, BMI 35-39.910/Delirium Assessment & Plan (11/06/2017 12:08 PM EDT): PLAN: See plan for encephalopathy Assessment & Plan (11/05/2017 1:59 PM EDT): PLAN: See plan for encephalopathy Immunizations ImmunizationAdministration DatesNext Dueinfluenza (IIV4) vaccine, age 6 mo - 64 yr, quadrivalent (AFLURIA, FLULAVAL, FLUZONE)12/04/2017tetanus diphtheria pertussis (Tdap) vaccine, age 7+ yr (ADACEL, BOOSTRIX)08/19/2016 Family History Medical HistoryRelationCommentsHypertensionBrotherDiabetesFatherHypertension FatherHypertensionMotherHypertensionSisterAnesthesia ProblemsNo Family History Blood ClotsNo Family HistoryClotting DisorderNo Family HistoryRelationStatus CommentsBrotherFatherMotherSister Social History Tobacco UseTypesPacks/DayYears UsedDateSmoking Tobacco: FormerCigarettes0.115 1983 - 1998Smokeless Tobacco: NeverAlcohol UseStandard Drinks/WeekCommentsNot Currently0 (1 standard drink = 0.6 oz pure alcohol)PHQ-2AnswerDate RecordedPHQ-2 zqjfl632rea Deprivation IndexAnswerDate RecordedNational Score (1-100), lower number is lower riskNot on file01/20/2020State Score (1-10), lower number is lower riskNot on file01/20/2020Data from: https://www.neighborhoodatlas.medicine.[facility].edu/. Last address used for calculationNot on file01/20/2020CommentsNoSex and Gender Information ValueDate RecordedSex Assigned at BirthNot on fileLegal DmwPuglki78/22/2018 2:30 PM EDTGender IdentityNot on fileSexual OrientationNot on file Last Filed Vital Signs Vital SignReadingTime TakenCommentsBlood Meoltipp726/7107 9:30 AM EDT Alkkd3732 9:30 AM HRJIkokbvljxbv69.2 ??C (97.2 ??F)08/31/2020 9:30 AM EDTRespiratory Swfr8229 9:30 AM EDTOxygen Maunpvbjhb73%08/31/2020 9:30 AM EDTInhaled Oxygen Concentration--Jfyxee95.9 kg (185 lb)08/31/2020 7:48 AM EDT Iwspjj499.8 cm (5' 4.5 )08/31/2020 7:48 AM EDTBody Mass Index31.26008/31/2020 7:48 AM EDT Plan of Treatment Health MaintenanceDue DateLast DoneCommentsDiabetic Foot Exam1967Dilated Retinal Exam1967Urine Albumin:Creatinine Ratio1967Annual PCP Team Chronic Disease Visit1975Anxiety Ffgwbohyh32/28/1976Depression Screening 1975Hepatitis C Ygjbepbdx33/28/1976CT Oczpjdcchoqo79/28/2003Cologuard (FIT-DNA)2002Fecal Occult Blood03/11/20024066Fjymrtaowauac74/28/2003Shingrix Vaccine (1 of 2)2007LDL Mgxdqnwnhvp59Pneumococcal Vaccine: 50+ (2 of 2 - PCV), 07/16/20189265Iheswznknhp67/20/2022 08/31/2020olorectal Cancer Wlhlipooa50/20/2022one Density Koadyymxi54/28/2023 FaM7Z10, 09/23/2020, 03/31/2020, Additional history exists Mammogram Bmzgjxjej79/, 10/23/2019, 04/03/2019, Additional history existsAdvance Directive Jdznmdiptc15/01/2025Medicare Advantage Annual Wellness Visit02/13/2024ovid-19 Vaccine (1 - season)2024Influenza Vaccine (#1)/02/2019, 11/03/2018, 12/04/2017DTaP,Tdap,Td Vaccine (2 - Td or Tdap)/09/2016RSV Vaccine (1 - 1-dose 75+ series)2032 Procedures Procedure NamePriorityDate/TimeAssociated DiagnosisCommentsCOLONOSCOPYRoutine 08/31/2020 8:34 AM EDT from Last 3 Months or Most Recently Relevant to Health Maintenance Results * COLONOSCOPY (08/31/2020 8:34 AM EDT)ComponentValueRef RangeTest MethodAnalysis TimePerformed AtPathologist SignatureTranscriptGolden Valley [facility] Patient Name: Nichole Warren Procedure Date: 08/31/2020 8:34 AM Date of : 1955 Admit Type: Outpatient Age: 65 Room: SP Procedure Room 4 Gender: Female Note Status: Finalized Attending MD: Jhon Stephen DO Procedure: ? Colonoscopy Indications: ? Chronic diarrhea Providers: ? Jhon StephenDO Patient Profile: ? This is a 65 year old female. Refer to note in ? patient chart for documentation of history and ? physical. Last Colonoscopy: none. The patient's first ? colonoscopy is today. Referring Physician: Medicines: ? See the Anesthesia note for documentation of the ? administered medications Complications: ? No immediate complications. Requesting Provider: Procedure: ? Pre-Anesthesia Assessment: ? - Prior to the procedure, a History and Physical was ? performed, and patient medications and allergies were ? reviewed. The patient is competent. The risks and ? benefits of the procedure and the sedation options ? and risks were discussed with the patient. All ? questions were answered and informed consent was ? obtained. Patient identification and proposed ? procedure were verified by the physician in the ? pre-procedure area. Mental Status Examination: alert ? and oriented. Airway Examination: normal ? oropharyngeal airway and neck mobility. Respiratory ? Examination: clear to auscultation. CV Examination: ? normal. Prophylactic Antibiotics: The patient does ? not require prophylactic antibiotics. Prior ? Anticoagulants: The patient has taken no previous ? anticoagulant or antiplatelet agents. ASA Grade ? Assessment: III - A patient with severe systemic ? disease. After reviewing the risks and benefits, the ? patient was deemed in satisfactory condition to ? undergo the procedure. The anesthesia plan was to use ? monitored anesthesia care (MAC). Immediately prior to ? administration of medications, the patient was ? re-assessed for adequacy to receive sedatives. The ? heart rate, respiratory rate, oxygen saturations, ? blood pressure, adequacy of pulmonary ventilation, ? and response to care were monitored throughout the ? procedure. The physical status of the patient was ? re-assessed after the procedure. ? After I obtained informed consent, the scope was ? passed under direct vision. Throughout the procedure, ? the patient's blood pressure, pulse, and oxygen ? saturations were monitored continuously. The ? Colonoscope was introduced through the anus and ? advanced to the cecum, identified by appendiceal ? orifice and ileocecal valve. The colonoscopy was ? performed without difficulty. The patient tolerated ? the procedure well. The quality of the bowel ? preparation was good. The ileocecal valve, ? appendiceal orifice, and rectum were photographed. Scope Withdrawal Time: 0 hours 7 minutes 5 seconds Moderate Sedation: ? MAC anesthesia was administered by the anesthesia team. Total Procedure Duration: 0 hours 12 minutes 6 seconds Findings: ? The digital rectal exam findings include non-thrombosed internal ? hemorrhoids and internal hemorrhoids (Grade I). ? A diminutive polyp was found in the sigmoid colon. The polyp was ? sessile. The polyp was removed with a jumbo cold forceps. Resection ? and retrieval were complete. Estimated blood loss: none. ? Multiple diverticula were found in the sigmoid colon and descending ? colon. ? Multiple biopsies were obtained with cold forceps for histology ? randomly in the entire colon. Estimated blood loss: none. Impression: ?- Non-thrombosed internal hemorrhoids and internal ? hemorrhoids (Grade I) found on digital rectal exam. ? - One diminutive polyp in the sigmoid colon, removed ? with a [employer] cold forceps. Resected and retrieved. ? - Diverticulosis in the sigmoid colon and in the ? descending colon. ? - Multiple biopsies were obtained in the entire colon. Recommendation: ?- Patient has a contact number available for ? emergencies. The signs and symptoms of potential ? delayed complications were discussed with the ? patient. Return to normal activities tomorrow. ? Written discharge instructions were provided to the ? patient. ? - Resume previous diet indefinitely. ? - Continue present medications. ? - Await pathology results. ? - Repeat colonoscopy in 5 years for surveillance. Attending Participation: ? I personally performed the entire procedure. Scope In: 8:46:06 AM Scope Out: 8:58:12 AM DO Jhon Fong DO 08/31/2020 9:01:33 AM This report has been signed electronically by Jhon Stephen DO Number of Addenda: 0 Note Initiated On: 08/31/2020 8:34 AM Estimated Blood Loss: ? Estimated blood loss: none.[facility] DISE[facility] INSTITUTESpecimen (Source) Anatomical Location / LateralityCollection Method / VolumeCollection Time Received Time08/31/2020 8:34 AM EDT Narrative Authorizing ProviderResult TypeResult StatusMichael Griselda Stephen DODIGESTIVE DISEASE REGIONALFinal ResultPerforming OrganizationAddressCity/State/ZIP CodePhone Number [facility] [address] [place] [address] [facility] from Last 3 Months or Most Recently Relevant to Health Maintenance Insurance Advance Directives TypeDate RecordedPatient RepresentativeExplanationAdvance Directive(s)11/09/2017 4:21 PMSIGNED Care Teams Team MemberRelationshipSpecialtyStart DateEnd Date Ash Rinaldi [address] [place] [address] PCP - GeneralFamily Wspaytwq53/12/18
--- OUTSIDE RECORDS SUMMARY | 2024-12-22 14:21 | XMS_ITS | Clinical Summary ---
Author Organization [facility] Address [address], [address] [place] [address] Care Team Providers Care Clay Caster Name Role Phone Stalin Vick DO Primary Care Provider [phone] Allergies Active AllergyReactionsCriticalityNoted DateCommentsCodeineOther (See Comments) High11/01/2017 Swelling of tongue Medications MedicationSigDispense QuantityRefillsLast FilledStart DateEnd DateStatus albuterol (PROVENTIL) (2.5 MG/3ML) 0.083% nebulizer solution Take 3 mLs by nebulization every 6 hours as needed for Wheezing 120 each Active glucose (GLUTOSE) 40 % GEL Take 37.5 mLs by mouth as needed (hypoglycemia) 45 g Active insulin lispro (HUMALOG) 100 UNIT/ML injection vial Inject 0-6 Units into the skin every 6 hours 1 vial Active Active Problems ProblemNoted DateDiagnosed UttjHihhc05/22/3953Lxieemzcbmxn10/21/2018Necrotizing cfmlejizcouz49/20/2018Coffee ground okulfv7711/01/2017 Social History Tobacco UseTypesPacks/DayYears UsedDateSmoking Tobacco: UnknownComments UnknownSex and Gender InformationValueDate RecordedSex Assigned at BirthNot on fileLegal TkiZsrqqf71/20/2018 1:08 PM EDTGender IdentityNot on fileSexual OrientationNot on file Last Filed Vital Signs Vital SignReadingTime TakenCommentsBlood Eeqvtszq592/8311/03/2017 11:00 PM EDT Bvolb71322/22/2018 11:00 PM QAOVbuhhylivyk79.5 ??C (99.5 ??F)11/03/2017 8:00 PM EDTRespiratory Qsux5114 11:00 PM EDTOxygen Hunitrgfzd74%11/03/2017 9:00 PM EDTInhaled Oxygen Concentration--Tfusxo00.9 kg (218 lb 0.6 oz)11/01/2017 6:45 PM UQTNamwko524.1 cm (5' 5 )11/01/2017 6:45 PM EDTBody Mass Index36.28011/01/2017 6:45 PM EDT Plan of Treatment Not on file Insurance Advance Directives * Full Code (Latest Code Status on File) Date ActivatedDate InactivatedComments11/01/2017 7:17 PM11/04/2017 1:57 AM Care Teams Team MemberRelationshipSpecialtyStart DateEnd Date Stalin Vick DO [address] [place] [address] PCP - GeneralFamily Medicine11/01/17
--- OUTSIDE RECORDS SUMMARY | 2024-12-22 14:21 | XMS_ITS | Clinical Summary ---
Author Organization [employer] Address [id number] [address] [place] [address] Care Team Providers Care Electronic Page Makeup System Operator Name Role Phone Drake Morrissey MD Primary Care Provider [phone] Allergies Active AllergyReactionsCriticalityNoted DateCommentsCodeineOther (See Comments), JxtpotfwCzsq23/20/2018 Swelling of the tongue Swelling of tongue OayiaxwyoHqkhPlo19/30/2018 Becomes combative/ delirious Medications MedicationSigDispense QuantityRefillsLast FilledStart DateEnd DateStatus lancets (ULTRA THIN LANCETS) 30 gauge misc TEST TWICE DAILY *K85.91* 100 each Active ZENPEP 40,000-126,000- 168,000 unit capsule,delayed release(DR/EC) TAKE 2 CAPSULES BY MOUTH WITH MEALS AND 1 CAPSULE WITH EACH SNACK 270 capsule Active blood sugar diagnostic (TRUE METRIX GLUCOSE TEST STRIP) strip Indications:Necrotizing pancreatitisTEST TWICE A DAY 50 strip 7103/31/2019Active psyllium husk (METAMUCIL) 0.4 gram capsule Take by mouth in the morning.Active multivitamin (THERAGRAN) tablet Take 1 tablet by mouth in the morning.Active DEXCOM G6 SAFETY CONSULTANT misc 01/24/2022ctive DEXCOM G6 SENSOR device 01/24/2022ctive DEXCOM G6 TRANSMITTER device 01/24/2022ctive ADE JI U-300 INSULIN 300 unit/mL (1.5 mL) insulin pen 03/13/2022ctive lancing device misc 03/03/2022ctive BD ULTRA-FINE NAREN PEN NEEDLE 32 gauge x 5/32 needle in the morning and at noon and in the evening and before bedtime.03/20/2022 Active diclofenac sodium (VOLTAREN) 1 % gel Apply to affected area tid 100 g 7008/20/2023ctive cholecalciferol, vitamin D3, (VITAMIN D3) 5,000 units capsule 1 capsule (5,000 Units total).06/18/2023ctive T:SLIM X2 CONTROL-IQ [facility] 08/20/2023ctive ACCU-CHEK GUIDE L1-L2 CTRL MISTY solution 08/15/2023ctive HumaLOG U-100 Insulin 100 unit/mL injection 08/30/2023ctive carvediloL (COREG) 25 mg tablet TAKE 1 TABLET (25 MG TOTAL) BY MOUTH IN THE MORNING AND BEFORE BEDTIME 180 tablet tive pantoprazole (PROTONIX) 40 mg EC tablet TAKE 1 TABLET (40 MG TOTAL) BY MOUTH IN THE MORNING 90 tablet tive atorvastatin (LIPITOR) 10 mg tablet Indications:Mixed hyperlipidemiaTAKE 1 TABLET (10 MG TOTAL) BY MOUTH IN THE MORNING 90 tablet tive meclizine (ANTIVERT) 25 mg tablet Take 1 tablet (25 mg total) by mouth 3 (three) times a day as needed for dizziness. 90 tablet 5Active ondansetron (ZOFRAN) 4 mg tablet Indications:Necrotizing pancreatitisTake 1 tablet (4 mg total) by mouth every 8 (eight) hours as needed for nausea or vomiting. 30 tablet 5Active amLODIPine (NORVASC) 5 mg tablet Indications:Essential hypertension, benignTake 1 tablet (5 mg total) by mouth in the morning. 90 tablet 5Active docusate sodium (STOOL SOFTENER) 100 mg capsule Take 1 capsule (100 mg total) by mouth in the morning and 1 capsule (100 mg total) before bedtime. 180 capsule 5Active ferrous sulfate 325 (65 FE) MG tablet Take 1 tablet (325 mg total) by mouth in the morning. 90 tablet 5Active hydroCHLOROthiazide (HYDRODIURIL) 25 mg tablet Indications:Essential hypertension, benignTake 1 tablet (25 mg total) by mouth daily. 90 tablet 5Active potassium chloride (KLOR-CON M10) 10 MEQ CR tablet Indications:Essential hypertension, benignTake 1 tablet (10 mEq total) by mouth in the morning and 1 tablet (10 mEq total) before bedtime. TAKE 1 TABLET (10 MEQ TOTAL) BY MOUTH IN THE MORNING. 180 tablet 5Active tiZANidine (ZANAFLEX) 4 mg tablet TAKE 1 TABLET (4 MG TOTAL) BY MOUTH EVERY 8 (EIGHT) HOURS NEEDED FOR MUSCLE SPASMS 270 tablet 5Active Active Problems ProblemNoted DateDiagnosed DateMyofascial pain jfpgmlac96/06/2024Neck pain 08/31/2022Secondary diabetes nyfqsejn23/08/2021Necrotizing pancreatitis 08/09/2018Pancreas tail yqkkck9007/31/2018 Encounters DateTypeDepartmentCare SkzaGydqpgpgrew95/29/2025Refill [facility] [address] [place] [phone] Ash Landeros MD 10/31/2024Results [facility] [place] [phone] Drake Morrissey MD CBC auto differential, Thyroid profile includes TSH FT4, Lipid profile, Additional followed-up results: Orders Only [facility] [address] [place] [phone] Kiana Mckeon LPN Essential hypertension, benign; Mixed hyperlipidemia; Secondary diabetes mellitus (CMS-HCC)10/20/2024 3:00 PM EDTOffice Visit [facility] [place] [phone] Drake Morrissey MD Necrotizing pancreatitis (Primary Dx); Secondary diabetes mellitus (CMS-HCC); Mixed hyperlipidemia; Essential hypertension, benign; Encounter for screening mammogram for malignant neoplasm of plmaak7610/18/2024 Nosniw5010/15/2024Refill [facility] [address] [place] [phone] Viktoriya Salvador, [employer] SUPERINTENDENT-[employer]IL [employer]ACER from Last 3 Months Immunizations ImmunizationAdministration DatesNext YbxHwL9207/16/2018Influenza, Injectable, Mdck, Preservative Free, Quad11/03/2018Influenza, Injectable, Quadrivalent 12/04/2017Influenza, Injectable, quadrivalent (PF)12/14/2019,11/03/2018 Meningococcal Mkynoygjn22/04/2019Meningococcal LAJ4Z9310/01/2018Pneumococcal Conjugate 20-fnotqq073Pneumococcal Vqiihdaaatqydu81/20/2019,07/16/2018 Tdap08/19/2016 Family History Medical HistoryRelationNameCommentsDiabetesFatherRelationNameStatusComments Father Social History Tobacco UseTypesPacks/DayYears UsedDateSmoking Tobacco: NeverSmokeless Tobacco: Never Tobacco Cessation:Counseling Given: Not Answered Alcohol UseStandard Drinks/WeekCommentsNot Currently0 (1 standard drink = 0.6 oz pure alcohol)occasionalSocial Connection and Isolation PanelAnswerDate Recorded In a typical week, how many times do you talk on the phone with family, friends, or neighbors?More than three times a week03/23/2020How often do you get together with friends or relatives?Twice a week03/23/2020How often do you attend taoist or oriental orthodox services?Never1Do you belong to any clubs or organizations such as taoist groups, unions, fraternal or athletic groups, or school groups? Yes03/23/2020How often do you attend meetings of the clubs or organizations you belong to?Never03/23/2020re you , , , , never , or living with a partner?Never jvzzhwr5503/23/2020UDIT-CAnswerDate RecordedQ1: How often do you have a drink containing alcohol?Never03/23/2020Q2: How many drinks containing alcohol do you have on a typical day when you are drinking?Patient vpyllwsk05/09/2021Q3: How often do you have six or more drinks on one occasion?Never03/23/2020Overall Financial Resource Strain (CARDIA)Answer Date RecordedHow hard is it for you to pay for the very basics like food, housing, medical care, and heating?Not very hard10/18/2024PHQ-2AnswerDate RecordedTotal Ugmsw062Fincentral valley medical center [facility] of Occupational Health - Occupational Stress QuestionnaireAnswerDate RecordedDo you feel stress - tense, restless, nervous, or anxious, or unable to sleep at night because yourmind is troubled all the time - these days?Not at all03/23/2020xercise Vital SignAnswer Date RecordedOn average, how many days per week do you engage in moderate to strenuous exercise (like a brisk walk)?5 days03/23/2020On average, how many minutes do you engage in exercise at this level?60 min03/23/2020RAPARE - TransportationAnswerDate RecordedIn the past 12 months, has lack of transportation kept you from medical appointments or from getting medications?No 10/18/2024In the past 12 months, has lack of transportation kept you from meetings, work, or from getting things needed for daily living?No10/18/2024 Housing InstabilityAnswerDate RecordedAre you worried or concerned that in the next two months you may not have stable housing that you own, rent or stay in as a part of a household?No10/18/2024hildcareAnswerDate RecordedDo problems getting summer child caregiver make it difficult for you to work or study?No03/23/2020 EmploymentAnswerDate RecordedDo you need help finding a local career center and/or a training program?No03/23/2020Hunger ScreeningAnswerDate RecordedWithin the past 12 months we worried whether our food would run out before we got money to buy more.Never True10/20/2024Within the past 12 months the food we bought just didn't last and we didn't have money to get more.Never True10/20/2024 Purpose - LifeAnswerDate RecordedI have a purpose and direction in my life. Somewhat Agree03/23/2020ducationAnswerDate RecordedWhat is the highest level of school you have completed or the highest degree you have received?12th grade 1CommentsNoSex and Gender InformationValueDate RecordedSex Assigned at BirthNot on fileLegal MqgSpggqs44/08/2018 9:48 AM EDTGender Identity Not on fileSexual OrientationNot on file Last Filed Vital Signs Vital SignReadingTime TakenCommentsBlood Xcxlcqex469/8210/20/2024 3:06 PM EDT Xneoi456710/20/2024 3:06 PM HMCOjbqpbeiyim32.6 ??C (97.8 ??F)10/16/2023 3:08 PM EDTRespiratory Ctcw9072 3:06 PM EDTOxygen Uazjwmercq76%10/20/2024 3:06 PM EDTInhaled Oxygen Concentration--Cttvnd39.6 kg (202 lb)10/20/2024 3:06 PM EDT Cgskyb094.4 cm (5' 2.75 )10/20/2024 3:06 PM EDTBody Mass Index36.0710/20/2024 3:06 PM EDT Plan of Treatment DateTypeDepartmentCare Team (Latest Contact Info)Ygzyzyyfyal48/19/2026 9:00 AM EDTOffice Visit [facility] [address] [place] [phone] Drake Morrissey MD [address] [place] [phone] 10/21/2025 3:30 PM EDTOffice Visit [facility] [address] [place] [phone] Drake Morrissey MD [address] [place] [address] [phone] Health MaintenanceDue DateLast DoneCommentsZoster (Shingles) Vaccine (1 of 2) 2007RSV ( or age 60+ yrs) (1 - Risk 60-74 years 1-dose series) 2017Diabetic Foot Exam/02/2022, 04/29/2020Influenza Vaccine /02/2019, 11/03/2018, 11/03/2018, Additional history existsMammogram /07/2023, 11/08/2021, 10/23/2019, Additional history existsDiabetic Ophthalmology Exam, 12/14/2022Statin Use: Vuwlzzkj41/02/2026 08/13/2024Depression Byofbcltx71Fall Risk Segvlukrj21/06/2026 10/18/2024dult BMI Follow Up Plan/dult BMI Screening Medicare Annual Wellness Visit/09/2024, 10/16/2023, 10/12/2022, Additional history existsTobacco Gislesapx80/08/2026 10/20/2024DTaP,Tdap and Td Vaccines (2 - Td or Tdap) Medical Devices Not on file Procedures Procedure NamePriorityDate/TimeAssociated DiagnosisCommentsCOMPREHENSIVE METABOLIC NEFZTKdkmrps61/19/2025 Essential hypertension, benign HEMOGLOBIN B6DJsuaswh46/19/2025 Secondary diabetes mellitus (CMS-HCC) LIPID ZGKXKSUBsfshpa40/19/2025 Mixed hyperlipidemia THYROID PROFILE INCLUDES TSH TP1Xrdjced67/19/2025 Essential hypertension, benign CBC WITH AUTO EYKVCLUSEMEFOxpslks49/19/2025 Essential hypertension, benign [facility] DIABETES EYE QBNHFrcapff11/07/2024 9:34 AM ESTMAMM SCREENING BILATERAL W CAD Bqnglfi8312/19/2023 12:54 PM EST Encounter for screening mammogram for malignant neoplasm of breast from Last 3 Months or Most Recently Relevant to Health Maintenance Results * Thyroid profile includes TSH FT4 (10/31/2024)Specimen (Source)Anatomical Location / LateralityCollection Method / VolumeCollection TimeReceived Time BloodVenous blood / Jmchscb9410/31/2024 Narrative Authorizing ProviderResult TypeResult StatusDrake CRAWFORD BLOOD ORDERABLESFinal ResultPerforming OrganizationAddressCity/State/ZIP CodePhone Number MANUALLY TRANSCRIBED RESULTS * CBC auto differential (10/31/2024)Specimen (Source)Anatomical Location / LateralityCollection Method / VolumeCollection TimeReceived TimeBloodVenous blood / Kfavtgj1610/31/2024 Narrative Authorizing ProviderResult TypeResult StatusDrake Morrissey MDLAB BLOOD ORDERABLESFinal ResultPerforming OrganizationAddressCity/State/ZIP CodePhone Number MANUALLY TRANSCRIBED RESULTS * (ABNORMAL) Hemoglobin A1c (10/31/2024)ComponentValueRef RangeTest Method Analysis TimePerformed AtPathologist SignatureExternal Hemoglobin A1C6.3(A)4.5 - 6.2 %MANUALLY TRANSCRIBED RESULTSSpecimen (Source)Anatomical Location / LateralityCollection Method / VolumeCollection TimeReceived TimeBloodVenous blood / Obcuuzz8510/31/2024 Narrative Authorizing ProviderResult TypeResult Paul Morrissey MDLAB BLOOD ORDERABLESFinal ResultPerforming OrganizationAddressCity/State/ZIP CodePhone Number MANUALLY TRANSCRIBED RESULTS * (ABNORMAL) Lipid profile (10/31/2024)ComponentValueRef RangeTest Method Analysis TimePerformed AtPathologist SignatureExternal Flfhcalsske423<=200 MANUALLY TRANSCRIBED RESULTSExternal Cholesterol:Hdl4.13.3 - 4.4MANUALLY TRANSCRIBED RESULTSExternal Hdl Eunzpimcoup77(A)40 - 60MANUALLY TRANSCRIBED RESULTSExternal Ldl (Calc)65<=100MANUALLY TRANSCRIBED RESULTSExternal Mjktqqkkzhday888(A)<=150MANUALLY TRANSCRIBED RESULTSExternal Very Low Rieqdtapgye02.0MANUALLY TRANSCRIBED RESULTSSpecimen (Source)Anatomical Location / LateralityCollection Method / VolumeCollection TimeReceived Time BloodVenous blood / Nfltnex3710/31/2024 Narrative Authorizing ProviderResult TypeResult Paul Morrissey MDLAB BLOOD ORDERABLESFinal ResultPerforming OrganizationAddressCity/State/ZIP CodePhone Number MANUALLY TRANSCRIBED RESULTS * Comprehensive metabolic panel (10/31/2024)Specimen (Source)Anatomical Location / LateralityCollection Method / VolumeCollection TimeReceived TimeBloodVenous blood / Zeppsbz7410/31/2024 Narrative Authorizing ProviderResult TypeResult Paul CRAWFORD BLOOD ORDERABLESFinal ResultPerforming OrganizationAddressCity/State/ZIP CodePhone Number MANUALLY TRANSCRIBED RESULTS * HM DIABETES EYE EXAM (12/20/2023 9:34 AM EST) Narrative Authorizing ProviderResult TypeResult StatusScanning Provider ExternalHEALTH MAINTENANCEFinal ResultPerforming OrganizationAddressCity/State/ZIP CodePhone Number MANUALLY TRANSCRIBED RESULTS * Mammography screening bilateral with CAD (12/19/2023 12:54 PM EST)Anatomical RegionLateralityModalityBreastBilateralMammography Narrative Authorizing ProviderResult TypeResult StatusDavid Rob Landeros MDIMG MAMMOGRAPHY ORDERABLESFinal Result from Last 3 Months or Most Recently Relevant to Health Maintenance Insurance Care Teams Team MemberRelationshipSpecialtyStart DateEnd Date Drake Morrissey MD [address] [phone] PCP - GeneralInternal Medicine09/17/24
--- NOTE | 2024-12-22 14:23 | MM_ITS ---
Patient Name: VICTOR MANUEL SANDHU MR#: [id number] : 1955 Exam Date: 12/22/2024 Ordering Doctor: FLAKITO SHAW RADIOLOGY REPORT PROCEDURE: MM TOMOSYNTHESIS SCREENING BI COMPARISON: MM TOMOSYNTHESIS SCREENING BI, 12/17/2023. MM TOMOSYNTHESIS SCREENING BI, 12/14/2022. MG MAMM SCREEN 3D [facility] CAD, 11/08/2021. MG MAMM SCREEN [facility] W CAD, 09/30/2018. INDICATIONS: Screening Calculator Name NCI Breast Cancer Risk Assessment Tool 5 Year Breast Cancer Risk 2.10% Lifetime Breast Cancer Risk 7.00% Personal Breast Cancer No Personal Ovarian Cancer No Treatments None Family Cancers None LOCATION: [facility] BREAST COMPOSITION: There are scattered areas of fibroglandular density. FINDINGS: RIGHT BREAST: No significant suspicious finding. Benign-appearing calcifications are present. Similar focal asymmetries are noted. LEFT BREAST: No significant suspicious finding. Benign-appearing calcifications are present. Similar focal asymmetries are noted. DIAGNOSTIC CATEGORY 2--BENIGN FINDING. NO CHANGE FROM COMPARISON. RECOMMENDATIONS: ROUTINE MAMMOGRAM AND CLINICAL EVALUATION IN 12 MONTHS. Dictated by: Ike Burciaga MD on 12/22/2024 at 15:42 Approved by: Ike Burciaga MD on 12/22/2024 at 15:49
--- OUTSIDE RECORDS SUMMARY | 2024-12-22 14:27 | XMS_ITS | CCD ---
Author Organization [facility] Care Team Providers Care Roll Carrier Name Role Phone AVASTHI, STEPH Unavailable Unavailable AVASTHI, STEPH Unavailable Unavailable JIMMIE BREWSTER Unavailable Unavailable LIBIA SHIPMAN Unavailable Unavailable TRACI CORNELIUS Unavailable Unavailable AHMADCHRISTOPHER Unavailable Unavailable Mapus, Tondra Unavailable Samia Payton Primary Care Provider [phone] SAMIA PAYTON Primary Care Unavaila [facility] [place] [...] Care Provider Leti, MD Gracia Attending Provider Samia Landeros MD Primary Care Provider [phone] Samia Landeros MD Primary Care Provider Samia Landeros MD Primary Care Provider Drake Shaw MD Primary Care Provider SAMIA LANDEROS Referring Unavailable DRAKE SHAW Primary Care Unavailable DRAKE SHAW Attending Unavailable Drake Shaw MD Primary Care Provider [phone] Boy Phillips APRN Attending Provider Boy Phillips Attending Unavailable Boy Phillips Admitting Unavailable Allergies Allergy ClassificationReported Allergen(s)Allergy TypeDate of OnsetReaction(s) Facility (20 sources)Codeine; Translations: [CODEINE]Drug [id number], Other (See Comments)[facility] Work Phone: (20 sources)LORazepam; Translations: [LORAZEPAM]Drug Hgmkqlj03-43-2253ihug, Other: See CommentsMarymount Hospital Work Phone: (1 source)[facility]St[facility] ([facility] source)LORazepamDrug AllergySt. [facility] (1 source)CodeineDrug [id number] [facility] (1 source)LORazepamDrug Ixsekdc98-04-3019RnoponthkMagruder Memorial Hospital Repository Medications Current Medications MedicationDrug Class(es)DatesSig (Normalized)Sig (Original)ACCU-CHEK GUIDE L1-L2 CTRL MISTY solution (10 sources)Start: 90-42-1043ILWW-CHEK GUIDE L1-L2 CTRL MISTY solution 08/15/2023 ActiveamLODIPine 5 mg oral tablet (20 sources)Dihydropyridine Calcium Channel BlockerStart: 04-27-2023 End: 71-85-8196srhb 1 tablet by mouth once dailyAmlodipine 5 mg tablet Active 5 MG PO Daily June 18, 2023 12:00am Complies with drug therapyStart: 02-14-2018 End: 13-04-1627czyi 1 tablet by mouth once dailyamLODIPine (NORVASC) 10 mg tablet TAKE 1 TABLET BY MOUTH EVERY DAY 90 tablet 3 01/17/2023 10/20/2024 Discontinued (Patient Stopped On Own)Comment on above:Take 10 mg by mouth once daily. amylase 269021 unt / lipase 37639 unt / protease [id number] unt delayed release oral capsule (20 sources)Start: 86-62-1772luxb 2 capsules by mouth three times daily at mealtime, then take 1 capsule by mouth three times dailyStart: 67-81-4678JFCXHV 40,000-126,000- 168,000 unit capsule,delayed release(DR/EC) TAKE 2 CAPSULES BY MOUTH WITH MEALS AND 1 CAPSULE WITH EACH SNACK 270 capsule 5 02/10/2019 Active Comment on above:Take 2 capsules by mouth w MEALS. Take 1 tablet with each snack.atorvastatin 10 mg oral tablet (20 sources)HMG-CoA Reductase InhibitorStart: 08-28-2022 End: 49-75-9768onrv 1 tablet by mouth once dailyAtorvastatin 10 mg tablet Active 10 MG PO Daily June 18, 2023 12:00am Complies with drug therapyblood-glucose sensor (Dexcom G7 Sensor) (3 sources)Start: 08-84-2365ayjsp-glucose sensor (Dexcom G7 Sensor) Active .Route December 31, 2023 1:00amStart: 87-90-5848keazv-glucose sensor (Dexcom G7 Sensor) Active .Route December 31, 2023 12:00amcarvedilol 25 mg oral tablet (20 sources)alpha-Adrenergic Juliet, beta-Adrenergic BlockerStart: 08-28-2022 End: 30-87-0592wlki 1 tablet by mouth twice dailyCarvedilol 25 mg tablet Active 25 MG PO Twice daily June 18, 2023 12:00am Complies with drug therapyComment on above:Take 25 mg by mouth twice daily with meals.cefdinir 300 mg oral capsule (3 sources)Cephalosporin AntibacterialStart: 07-24-2023 End: 30-70-2372ambk 1 capsule by mouth in the morning, then take 1 capsule by mouth at bedtimecefDINIR (OMNICEF) 300 mg capsule Take 1 capsule (300 mg total) by mouth in the morning and 1 capsule (300 mg total) before bedtime. Do all this for 10 days. 20 capsule 07/24/2023 08/03/2023 ActiveStart: 04-16-2023 End: 89-80-4500ujay 1 capsule by mouth in the morning, then take 1 capsule by mouth at bedtimecefDINIR (OMNICEF) 300 mg capsule Take 1 capsule (300 mg total) by mouth in the morning and 1 capsule (300 mg total) before bedtime. Do all this for 10 days. 20 capsule 0 04/16/2023 04/26/2023 Activecholecalciferol 0.125 mg oral capsule (20 sources)Vitamin DStart: 60-54-2331urpowxhiciksifv, vitamin D3, (VITAMIN D3) 5,000 units capsule 1 capsule (5,000 Units total). 06/18/2023 ActiveStart: 70-23-0310fuuz 1 capsule by mouth twice dailytake 1 capsule by mouth every twelve hoursVitamin D3 125 MCG (5000 UT) 1 capsule Orally twice a day Active DEXCOM G6 TARGETEER misc (20 sources)Start: 25-85-0950USRXCP G6 TARGETEER misc 01/24/2022 ActiveStart: 33-75-6173OQBXNP G6 TARGETEER misc USE as directed TO monitor blood glucose 01/24/2022 ActiveStart: 62-67-8312HTPPJZ G6 TARGETEER misc USE as directed TO monitor blood glucose 0 01/24/2022 ActiveDexOasmia Pharmaceutical G6 Sensor - (16 sources)Start: 06-41-0617Pfusjz G6 Sensor - as directed SQ change q 10 days for 90 day(s) Dec, ActiveDexcom G6 Sensor - as directed SQ change q 10 days for 90 day(s) ActiveDEXSOMA [place] G6 SENSOR device (20 sources)Start: 17-92-1083GAPDGF G6 SENSOR device 01/24/2022 ActiveStart: 19-11-7758IHMFZE G6 SENSOR device CHANGE every 10 DAYS as directed 01/24/2022 ActiveStart: 15-91-5802PILFPG G6 SENSOR device CHANGE every 10 DAYS as directed 0 01/24/2022 ActiveDexcom G6 Transmitter - (16 sources)Start: 34-81-3206Xdzvgh G6 Transmitter - as directed SQ change Q 3 MO for 90 day(s) Dec, ActiveDexOasmia Pharmaceutical G6 Transmitter - as directed SQ change Q 3 MO for 90 day(s) ActiveDEXCOM G6 TRANSMITTER device (20 sources)Start: 29-78-8243VBQODW G6 TRANSMITTER device 01/24/2022 Active Start: 78-83-4436KAAZKM G6 TRANSMITTER device CHANGE every three MONTHS as directed with G6 Sensor 01/24/2022 ActiveStart: 36-55-4893JQQCCY G6 TRANSMITTER device CHANGE every three MONTHS as directed with G6 Sensor 0 01/24/2022 Active diclofenac sodium 0.01 mg/mg topical gel (20 sources)Nonsteroidal Anti-inflammatory DrugStart: 40-46-0157zrtubnixxl sodium (VOLTAREN) 1 % gel Apply to affected area tid 100 g 7 08/20/2023 Active Start: 06-18-2023 End: 97-36-9988Yczuonlonc Sodium 1 % gel Discontinued TOPICAL Three times daily June 18, 2023 12:00am November 04, 2024 3:34pm as directed Externally TID; Start: 12-18-2022 End: 97-18-4619iizsppvglu sodium (VOLTAREN) 1 % gel APPLY TO AFFECTED AREA 3 TIMES A DAY 100 g 5 12/18/2022 08/17/2023 Discontinued (Reorder)Start: 70-05-2154rpsfb 2 g topically twice daily as needed for paindiclofenac (VOLTAREN) 1 % topical gel Indications: Costochondritis APPLY 2GM TO AFFECTED AREA TWICEDAILY NEEDED FOR PAIN DIRECTED 100 g 1 05/05/2021 Active Diclofenac Sodium 1 % as directed Externally TID ActiveComment on above:APPLY 2GM TO AFFECTED AREA TWICE DAILY NEEDED FOR PAIN DIRECTEDdocusate sodium 100 mg oral capsule (20 sources)Start: 06-18-2023 End: 74-43-2982lgfs 1 capsule by mouth in the morning, then take 1 capsule by mouth at bedtimedocusate sodium (STOOL SOFTENER) 100 mg capsule Take 1 capsule (100 mg total) by mouth in the morning and 1 capsule (100 mg total) before bedtime. 180 capsule 3 10/20/2024 ActiveStart: 04-12-2022 End: 56-12-7159wqgz 1 capsule by mouth in the morningSTOOL SOFTENER 100 mg capsule TAKE 1 CAPSULE (100 MG TOTAL) BY MOUTH IN THE MORNING AND 1 CAPSULE BE FORE BEDTIME 180 capsule 3 03/26/2023 Activetake 1 capsule by mouth twice daily docusate sodium (COLACE) 100 mg capsule Take 100 mg by mouth twice daily. 0 ActiveComment on above:Take 100 mg by mouth twice daily.ferrous sulfate 325 mg oral tablet (20 sources)Start: 10-16-2023 End: 48-59-2318daux 1 tablet by mouth in the morningferrous sulfate 325 (65 FE) MG tablet Take 1 tablet (325 mg total) by mouth in the morning. 90 tablet 3 10/20/2024 ActiveStart: 74-45-4610kjwr 1 tablet by mouth in the morningferrous sulfate 325 (65 FE) mg tablet TAKE 1 TABLET (325 MG TOTAL) BY MOUTH IN THE MORNING 90 tablet 1 09/11/2023 ActiveStart: 01-01-2023 End: 17-67-4541qdaq 1 tablet by mouth once dailyFerrous Sulfate 325 mg (65 mg iron) tablet Active 325 MG PO Daily June 18, 2023 12:00am Complies with drug therapytake 1 tablet by mouth once dailyFerrous Sulfate 325 (65 Fe) MG 1 tablet Orally Once a day ActiveComment on above:Take 325 mg by mouth once daily. gentamicin 3 mg/ml ophthalmic solution (1 source)Start: 07-24-2023 End: 47-59-4362mfmwfjceyu (GARAMYCIN) 0.3 % ophthalmic solution Administer 1 drop to both eyes in the morning and 1 drop at noon and 1 drop in the evening and 1 drop before bedtime. Do all this for 5 days. 5 mL 07/24/2023 07/29/2023 ActivehydroCHLOROthiazide 25 mg oral tablet (20 sources)Thiazide DiureticStart: 04-02-2023 End: 83-08-3285iaog 1 tablet by mouth once dailyHydrochlorothiazide 25 mg tablet Active 25 MG PO Daily June 18, 2023 12:00am Complies with drug therapy1.5 ml insulin glargine 300 unt/ml pen injector (20 sources)Insulin AnalogStart: 18-37-3836ogxjcf 30 [IU] by subcutaneous injection once daily in the morningStart: 06-18-2023 End: 13-38-6021Tbujdzb Glargine U-300 Conc 300 unit/mL (1.5 mL) insulin pen Discontinued 0 SUBCUT Daily September 24, 2023 3:14pm September 24, 2023 4:57pm 40 units qam Subcutaneous as directed; (titrate up to 40 units/day) ON HAND FOR PUMP FAILSStart: 05-15-2023 End: 55-57-8171Lgfcgmu Glargine U-300 Conc 300 unit/mL (1.5 mL) insulin pen Discontinued 37 UNIT SUBCUT Daily 4.5 90 May 16, 2023 1:20pm June 18, 2023 3:19pm FreeTextSi units qam Subcutaneous as directed; Note: Source Status: Increase(titrate up to 40 units/day); Refills: 3; Provider: Jacqueline Brunson KStart: 11-02-2343LUNKTI SOLOSTAR U-300 INSULIN 300 unit/mL (1.5 mL) insulin pen 03/13/2022 ActiveStart: 90-74-3457ncuave 10 [IU] by subcutaneous injection in the morning, then inject 20 [IU] by subcutaneous injection once daily in the morningTOUJEO SOLOSTAR U-300 INSULIN 300 unit/mL (1.5 mL) insulin pen INJECT 10 UNITS IN THE MORNING. TITRATE UP TO 20 UNITS SUBCUTANEOUSLY PER DAY EVERY MORNING 03/13/2022 ActiveStart: 02-34-0511kppfkl 22 [IU] by subcutaneous injection once daily in the morningToujeo SoloStar 300 UNIT/ML 22 units qam Subcutaneous as directed for 30 days (titrate up to 30 units/day) Dec, ActiveStart: 80-89-5203ysumut 10 [IU] by subcutaneous injection once daily in the morningToujeo SoloStar 300 UNIT/ML 10 units qam Subcutaneous as directed for 30 days (titrate up to 20 units/day) Dec, ActiveToujeo SoloStar 300 UNIT/ML 37 units qam Subcutaneous as directed for 90 days (titrate up to 40 unit s/day) ActiveToujeo SoloStar 300 UNIT/ML 32 units qam Subcutaneous as directed for 30 days (titrate up to 40 units/day) ActiveToujeo SoloStar 300 UNIT/ML 35 units qam Subcutaneous as directed for 30 days (titrate up to 40 units/day) ActiveToujeo SoloStar 300 UNIT/ML 33 units qam Subcutaneous as directed for 30 days (titrate up to 40 units/day) Activeinject 30 [IU] by subcutaneous injection once daily in the morningToujeo SoloStar 300 UNIT/ML 30 units qam Subcutaneous as directed for 30 days (titrate up to 40 units/day) Activeinject 28 [IU] by subcutaneous injection once daily in the morningToujeo SoloStar 300 UNIT/ML 28 units qam Subcutaneous as directed for 30 days (titrate up to 30 units/day) ActiveInsulin Glargine U-300 Conc 300 unit/mL (1.5 mL) insulin pen (5 sources)Start: 73-53-0754ujvxjo 30 [IU] by subcutaneous injection once daily in the morningInsulin Glargine U-300 Conc 300 unit/mL (1.5 mL) insulin pen Active 0 SUBCUT Daily September 24, 2023 3:57pm 30 units qam Subcutaneous as directed; (titrate up to 40 units/day) ON HAND FOR PUMP FAILSStart: 09-24-2023 End: 79-52-1670Elowjep Glargine U-300 Conc 300 unit/mL (1.5 mL) insulin pen Discontinued 0 SUBCUT Daily September 24, 2023 2:14pm September 24, 2023 3:57pm 40 units qam Subcutaneous as directed; (titrate up to 40 units/day) ON HAND FOR PUMP FAILSStart: 06-18-2023 End: 04-50-0074Suzksef Glargine U-300 Conc 300 unit/mL (1.5 mL) insulin pen Discontinued 0 SUBCUT Daily June 18, 2023 2:10pm September 24, 2023 2:16pm 40 units qam Subcutaneous as directed; (titrate up to 40 units/day)Start: 05-16-2023 End: 86-53-5057Mlgofhl Glargine U-300 Conc 300 unit/mL (1.5 mL) insulin pen Discontinued 37 UNIT SUBCUT Daily 4.5 90 May 16, 2023 12:20pm June 18, 2023 2:19pm FreeTextSi units qam Subcutaneous as directed; Note: Source Status: Increase(titrate up to 40 units/day); Refills: 3; Provider: Jacqueline Bolañosrt: 05-15-2023 End: 89-73-5074Nkylnbk Glargine U-300 Conc 300 unit/mL (1.5 mL) insulin pen Discontinued UNIT SUBCUT May 14, 2023 11:00pm May 16, 2023 12:22pm FreeTextSi units qam Subcutaneous as directed; Note: Source Status: Increase(titrate up to 40 units/day); Refills: 3; Provider: Jacqueline Mcqueen insulin lispro 100 unt/ml injectable solution (20 sources)Insulin AnalogStart: 88-23-2918Cluvm: 42-98-4212hocxeg 110 [IU] by subcutaneous injection once dailyInsulin Lispro (Humalog U-100 Insulin) 100 unit/mL solution Active 0 SUBCUT Use as Directed July 29, 2024 2:39pm Use with insulin pump up to 110 units per day. subcutaneously use as directed; Co mplies with drug therapyStart: 08-30-2023 End: 31-76-6944HephJVN U-100 Insulin 100 unit/mL injection 08/30/2023 Active Start: 06-18-2023 End: 73-45-2893Ikqhxbf Lispro (Humalog Kwikpen Insulin) 100 unit/mL insulin pen Discontinued 0 SUBCUT .COMPLEX September 24, 2023 3:15pm September 24, 2023 4:56pm 1:4 carb ratio ad tid. Corrective scale 1:15 ac, (hs if >200 half dose) Subcutaneous as directed; ON HAND FOR PUMP FAILS.Start: 03-13-2022 End: 04-31-2078IcccJHE KwikPen Insulin 100 unit/mL insulin pen 1:25 CORRECTIVE SCALE BEFORE MEAL 3TIMES DAILY SUBCUTANEOUSLY DIRECTED*EXPECT UP TO 20UNITS DAILY 03/13/2022 10/20/2024 DiscontinuedStart: 83-65-6178UsipZRS KwikPen 100 UNIT/ML 1:40 corrective scale ac tid plus 1:10 ICR Subcutaneous as directed for 30 days (expect up to 20 units/day) Dec, ActiveInsulin Lispro (Humalog Kwikpen Insulin) 100 unit/mL insulin pen (3 sources)Start: 90-56-3615Ljjgcqe Lispro (Humalog Kwikpen Insulin) 100 unit/mL insulin pen Active 0 SUBCUT Use as Directed 2023 12:00am 1:4 carb ratio ac tid. Corrective scale 1:15 ac, (hs if >200 half dose) Subcutaneous as directed; ON HAND FOR PUMP FAILSStart: 09-24-2023 End: 14-37-3159Hlxafqu Lispro (Humalog Kwikpen Insulin) 100 unit/mL insulin pen Discontinued 0 SUBCUT .COMPLEX September 24, 2023 2:15pm September 24, 2023 3:56pm 1:4 carb ratio ad tid. Corrective scale 1:15 ac, (hs if >200 half dose) Subcutaneous as directed; ON HAND FOR PUMP FAILS.Start: 06-18-2023 End: 59-51-5688Engbtlj Lispro (Humalog Kwikpen Insulin) 100 unit/mL insulin pen Discontinued 0 SUBCUT .COMPLEX 2023 11:00pm September 24, 2023 2:16pm 1:4 carb ratio ad tid. Corrective scale 1:15 ac, (hs if >200 half dose) Subcutaneous as directed;Insulin Lispro (Humalog U-100 Insulin) 100 unit/mL solution (1 source)Start: 08-19-8275xzvmba 100 [IU] by subcutaneous injection once daily Insulin Lispro (Humalog U-100 Insulin) 100 unit/mL solution Active 0 SUBCUT Use as Directed 90 2023 11:00pm Use with insulin pump up to 100 units per day. subcutaneously use as directed;lancing device misc (20 sources)Start: 86-56-4948nmdqyuh device misc 03/03/2022 ActiveStart: 97-21-4131yokguxc device oilvKgbqls-Tvpuvlss-Demmqnj 40,000-126,000- 168,000 unit capsule,delayed release(DR/EC) (1 source)Start: 81-12-7596hbag 2 capsules by mouth three times daily at mealtime, then take 1 capsule by mouth three times xufayVkzczn-Mvrngtpo-Kybayky 40,000-126,000- 168,000 unit capsule,delayed release(DR/EC) Active 0 PO Three times daily June 17, 2023 11:00pm orally three times daily; 2 capsules with meals, 1 capsule witheach snack Orally tid;meclizine hydrochloride 25 mg oral tablet (20 sources)AntiemeticStart: 09-22-2022 End: 24-53-5845xhtd 1 tablet by mouth three times dailyMeclizine 25 mg tablet Active 25 MG PO Three times daily June 18, 2023 12:00am Complies with drug th erapymultivitamin (THERAGRAN) tablet (20 sources)take 1 tablet by mouth in the morningmultivitamin (THERAGRAN) tablet Take 1 tablet by mouth in the morning. Activetake 1 tablet by mouth in the morningmultivitamin (THERAGRAN) tablet Take 1 tablet by mouth in the morning. 0 ActiveMultivitamin preparation (19 sources)Start: 14-12-4649tbsf 1 tablet by mouth once dailyStart: 06-18-2023 take 1 tablet by mouth once dailymultivitamin (Daily Multivitamin) Active 1 TAB PO Daily June 18, 2023 12:00am Complies with drug therapyStart: 45-75-3844dfoo 1 tablet by mouth once dailymultivitamin (Daily Multivitamin) Active 1 TAB PO Daily June 17, 2023 11:00pmtake 1 tablet by mouth once dailyMultivitamin - 1 tablet Orally Once a day Activeondansetron 4 mg oral tablet (20 sources)Serotonin-3 Receptor AntagonistStart: 12-11-2022 End: 64-30-2743veuf 1 tablet by mouth every eight hours as neededOndansetron Hcl 4 mg tablet Active 4 MG PO Every 8 hours as needed June 18, 2023 12:00am Complies with drug therapypantoprazole 40 mg delayed release oral tablet (20 sources)Proton Pump InhibitorStart: 08-28-2022 End: 37-06-5777evma 1 tablet by mouth once dailyPantoprazole 40 mg tablet,delayed release (DR/EC) Active 40 MG PO Daily June 18, 2023 12:00am Complies with drug therapyComment on above:Take 40 mg by mouth once daily.pen needle, diabetic (BD Janneth 2nd Gen Pen Needle) (3 sources)Start: 41-00-9220kgs needle, diabetic (BD Janneth 2nd Gen Pen Needle) Active .Route June 18, 2023 12:00amStart: 32-57-9616awy needle, diabetic (BD Janneth 2nd Gen Pen Needle) Active .Route June 17, 2023 11:00pmmicroencapsulated potassium chloride 10 meq extended release oral tablet (20 sources)Start: 10-22-2023 End: 17-56-7656pour 1 tablet by mouth in the morning, then take 1 tablet by mouth at bedtime, then take 1 tablet by mouth in the morningpotassium chloride (KLOR-CON M10) 10 MEQ CR tablet Indications: Essential hypertension, benign Take 1 tablet (10 mEq total) by mouth in the morning and 1 tablet (10 mEq total) before bedtime. TAKE 1 TABLET (10 MEQ TOTAL) BY MOUTH IN THE MORNING. 180 tablet 3 10/20/2024 ActiveStart: 94-54-8590atnh 1 tablet by mouth twice dailyStart: 09-22-2022 End: 20-74-0734rjoj 1 tablet by mouth in the morningKLOR-CON M10 10 mEq CR tablet TAKE 1 TABLET (10 MEQ TOTAL) BY MOUTH IN THE MORNING 90 tablet 2 08/26 Activetake 1 tablet by mouth every twelve hoursPotassium Chloride ER 10 MEQ 1 tablet with food Orally Twice a day Activepsyllium 400 mg oral capsule (20 sources)Start: 43-25-1890Wqxsftwwv ActiveComment on above:Take by mouth once daily.Psyllium Husk (Metamucil) 0.4 gram capsule (1 source)Start: 53-27-6472Qmimdedp Husk (Metamucil) 0.4 gram capsule Active 0.4 GM PO Daily June 17, 2023 11:00pmSubcutaneous Insulin Pump (T:Slim X2 Control- Iq) misc (3 sources)Start: 06-04-6885Xaopxwudlxpy Insulin Pump (T:Slim X2 Control-Iq) misc Active 0 .Route 1 August 20, 2023 12:00am Use continuously to deliver insulinStart: 46-59-2509Knmpifqrufri Insulin Pump (T:Slim X2 Control-Iq) misc Active 0 .Route 1 August 19, 2023 11:00pm Use continuously to deliver insulin T:SLIM X2 CONTROL-IQ misc (10 sources)Start: 08-20-2023T:SLIM X2 CONTROL-IQ misc 08/20/2023 Active tiZANidine 4 mg oral tablet (20 sources)Central alpha-2 Adrenergic AgonistStart: 55-67-9656lcjt 1 tablet by mouth every eight hours as neededtiZANidine (ZANAFLEX) 4 mg tablet TAKE 1 TABLET (4 MG TOTAL) BY MOUTH EVERY 8 (EIGHT) HOURS NEEDED FOR MUSCLE SPASMS 270 tablet 3 11/10/2024 ActiveStart: 10-16-2023 End: 36-67-7764mniw 1 tablet by mouth every eight hours as neededtiZANidine (ZANAFLEX) 4 mg tablet Take 1 tablet (4 mg total) by mouth every 8 (eight) hours as needed for muscle spasms. 270 tablet 3 10/20/2024 11/10/2024 Discontinued Start: 65-57-5032yvuw 1 tablet by mouth once daily at bedtime as neededStart: 74-57-1963vxzn 1 tablet by mouth every eight hours as neededtiZANidine (ZANAFLEX) 4 mg tablet Take 1 tablet (4 mg total) by mouth every 8 (eight) hours as needed for muscle spasms. 270 tablet 3 01/01/2023 ActiveStart: 04-20-2019 take 1 tablet by mouth once daily at bedtimetiZANidine (ZANAFLEX) 4 mg tablet Take 4 mg by mouth daily at bedtime. 0 04/20/2019 ActiveComment on above:Take 4 mg by mouth daily at bedtime.True Metrix Blood Glucose Test - (16 sources)True Metrix Blood Glucose Test - as directed In Vitro ActiveZinc (2 sources)take 1 tablet by mouth twice dailyZinc 50 MG 1 tablet Orally TWICE A DAY Activezinc gluconate 50 mg oral tablet (17 sources)Start: 30-65-4167nggr 1 tablet by mouth twice dailytake 1 tablet by mouth every twelve hoursZinc 50 MG 1 tablet Orally TWICE A DAY Active Completed/Discontinued Medications MedicationDrug Class(es)DatesSig (Normalized)Sig (Original)acetaminophen 325 mg oral tablet (1 source)Start: 31-64-0446lbdp 2 tablets by mouth every six hours as needed acetaminophen (TYLENOL) 325 mg tablet Take 2 tablets by mouth every 6 hours as needed for Pain. 15 tablet 0 08/05/2018 ActiveComment on above:Take 2 tablets by mouth every 6 hours as needed for Pain.acetaminophen 325 mg / butalbital 50 mg / caffeine 40 mg oral tablet (4 sources)Barbiturate, Central Nervous System Stimulant, MethylxanthineStart: 01-13-2021 End: 26-08-9194xloi 1-2 tablets by mouth every six hours as needed for headache qtzppbwxcu-xnxhlmewbbdxx-qgzm (FIORICET, ESGIC) 50-325-40 mg per tablet Take 1-2 tablets by mouth every 6 (six) hours as needed for headaches. 40 tablet 1 01/13/2021 04/02/2023 Discontinued (Alternate therapy)benzonatate 200 mg oral capsule (19 sources)Non-narcotic AntitussiveStart: 04-18-2023 End: 34-21-8878bqbp 1 capsule by mouth three times daily as needed for cough benzonatate (TESSALON PERLES) 200 mg capsule Take 1 capsule (200 mg total) by mouth 3 (three) timesa day as needed for cough. 30 capsule 1 04/18/2023 10/20/2024 Discontinued (Patient Stopped On Own)blood-glucose sensor (Dexcom G6 Sensor) (3 sources)Start: 06-18-2023 End: 36-23-5938nddaa-glucose sensor (Dexcom G6 Sensor) Discontinued .Route June 18, 2023 12:00am December 31, 2023 4:26pmStart: 06-18-2023 End: 37-61-9943imrao-glucose sensor (Dexcom G6 Sensor) Discontinued .Route June 17, 2023 11:00pm December 31, 2023 3:26pmblood-glucose transmitter (Dexcom G6 Transmitter) (3 sources)Start: 06-18-2023 End: 08-92-6207rnjsu-glucose transmitter (Dexcom G6 Transmitter) Discontinued .Route June 18, 2023 12:00am December 31, 2023 4:26pmStart: 06-18-2023 End: 57-90-8398audxd-glucose transmitter (Dexcom G6 Transmitter) Discontinued .Route June 17, 2023 11:00pm December 31, 2023 3:26pmcephalexin 500 mg oral capsule (3 sources)Cephalosporin AntibacterialStart: 12-31-2023 End: 64-91-1180bcnr 1 capsule by mouth four times dailyCephalexin 500 mg capsule Discontinued 500 MG PO Four times daily December 31, 2023 1:00am April 14, 2024 4:08pmglimepiride 2 mg oral tablet (1 source)SulfonylureaStart: 28-17-3181nrmlguyezww (AMARYL) 2 mg tablet 4 mg daily with breakfast. 0 05/18/2020 ActiveComment on above:4 mg daily with breakfast. lidocaine 0.05 mg/mg medicated patch (20 sources)Antiarrhythmic, Amide Local AnestheticStart: 08-20-2023 End: 61-02-2466sattc 1 dose transdermal route in the morninglidocaine (LIDODERM) 5 % Place 1 patch on the skin in the morning. 30 patch 7 08/20/2023 10/20/2024 Discontinued (Patient Stopped On Own)Start: 06-18-2023 End: 22-01-5050Iittrsnru 5 % adhesive patch,medicated Discontinued 1 PATCH TOPICAL Daily June 18, 2023 12:00am July 29, 2024 1:44pm 1 patch remove after 12 hours Externally Once a day;Start: 08-28-2022 End: 64-45-2593yllkc 1 dose transdermal route in the morninglidocaine (LIDODERM) 5 % Place 1 patch on the skin in the morning. 30 patch 5 02/15/2023 Active Lidocaine 5 % 1 patch remove after 12 hours Externally Once a day Active meloxicam 15 mg oral tablet (1 source)Nonsteroidal Anti-inflammatory DrugStart: 05-95-8725ierp 1 tablet by mouth once dailymeloxicam (MOBIC) 15 mg tablet TAKE 1 TABLET BY MOUTH EVERY DAY 30 tablet 1 02/23/2021 ActiveComment on above:TAKE 1 TABLET BY MOUTH EVERY DAY MULTI-VITAMIN ORAL (1 source)take 1 tablet by mouth once dailyMULTI-VITAMIN ORAL Take 1 tablet by mouth once daily. 0 ActiveComment on above:Take 1 tablet by mouth once daily. Problems Active Problems Problem ClassificationProblemDateDocumented DateEpisodic/Chronic Administrative/social admission (13 sources)Dietary counseling and surveillance; Translations: [Patient encounter status]EpisodicDiabetes mellitus with complications (1 source)Type 2 diabetes mellitus with hyperglycemia; Translations: [Type 2 diabetes mellitus with hyperglycemia]Onset: 97-51-3137WyzmbeyTmjsuosf mellitus without complication (20 sources)Diabetes mellitus without complication; Translations: [Other specified diabetes mellitus without complications]Onset: 16-55-5544Aaumdua Disorders of lipid metabolism (20 sources)Hyperlipidemia; Translations: [Hyperlipidemia, unspecified]Onset: 99-24-9931SvaweoaAdfxwpsujq disorders (1 source)Gastroesophageal reflux disease; Translations: [Gastro-esophageal reflux disease without esophagitis]Onset: 011615-01-5038WzyrwhaJgwrejmqd hypertension (20 sources)Hypertensive disorder; Translations: [Essential (primary) hypertension]Onset: 87-77-5694LuirrkuWyxlsgrjwzo deficiencies (2 sources)Undernutrition; Translations: [Mild protein-calorie malnutrition] Onset: 500345-53-6414YdwbpxuSllar aftercare (16 sources)Long-term current use of insulin; Translations: [assisted (current) use of insulin]EpisodicOther aftercare (8 sources)assisted (current) use of insulin; Translations: [assisted (current) use of insulin]Onset: 93-03-2232VjiztrvzGbasd endocrine disorders (16 sources)Hypoglycemia; Translations: [Hypoglycemia, unspecified]ChronicOther endocrine disorders (1 source)Hypoglycemia, unspecifiedChronicOther nervous system disorders (1 source)Disorder of brain; Translations: [Encephalopathy, unspecified]Onset: 941996-52-3401WzitmohFddey nutritional; endocrine; and metabolic disorders (20 sources)Obese class I; Translations: [Body mass index (BMI) 31.0-31.9, adult]Onset: 604323-09-2630YdqtvoeRpcgv nutritional; endocrine; and metabolic disorders (1 source)Body mass index (BMI) 31.0-31.9, adultChronicOther nutritional; endocrine; and metabolic disorders (19 sources)Body mass index 30+ - obesity; Translations: [Body mass index (BMI) 32.0-32.9, adult]38-08-5192MrmxmieQdgon nutritional; endocrine; and metabolic disorders (1 source)Body mass index (BMI) 32.0-32.9, adultChronicOther nutritional; endocrine; and metabolic disorders (2 sources)Body mass index (BMI) 33.0-33.9, adultChronicOther nutritional; endocrine; and metabolic disorders (1 source)Body mass index (BMI) 34.0-34.9, adultChronicOther nutritional; endocrine; and metabolic disorders (4 sources)Obese class II; Translations: [Body mass index (BMI) 36.0-36.9, adult]ChronicOther nutritional; endocrine; and metabolic disorders (3 sources)Body mass index (BMI) 36.0-36.9, adult; Translations: [Body Mass Index 36.0-36.9, adult]ChronicOther screening for suspected conditions (not mental disorders or infectious disease) (3 sources)Encounter for screening mammogram for malignant neoplasm of breast; Translations: [Patient encounter status]Onset: 018941-70-8447Jfcfvsaa Residual codes; unclassified (16 sources)Acquired partial absence of pancreas; Translations: [Acquired partial absence of pancreas]ChronicResidual codes; unclassified (1 source)Acquired total absence of pancreas; Translations: [Personal history of surgery to other organs]40-16-2487TplrgswEfso and subcutaneous tissue infections (4 sources)Site-specific infective disorders of skin; Translations: [Local infection of the skin and subcutaneous tissue, unspecified]51-87-1724Zlwjysfv Unclassified (2 sources)Acute pancreatitis with uninfected necrosis, unspecified; Translations: [Acute pancreatitis with uninfected necrosis, unspecified]Onset: 99-80-9167Ocyojuhuaqtt (1 source)Annual ExamOnset: 10-20-2024 Past or Other Problems Problem ClassificationProblemDateDocumented DateEpisodic/ChronicCrushing injury or internal injury (20 sources)Injury of pancreas; Translations: [Unspecified injury of tail of pancreas, initial encounter]Onset: 772231-15-1532ShwrrowaHjjtdvomzr and other anemia (1 source)Iron deficiency anemia; Translations: [Iron deficiency anemia, unspecified]Onset: 826511-60-7994MwmtrqfsDrpsa and electrolyte disorders (6 sources)Hypernatremia; Translations: [Hyperosmolality and hypernatremia] Onset: 430132-95-5758GhgaxmgyDuibgbyqsn infection (1 source)Clostridium difficile diarrhea; Translations: [Enterocolitis due to Clostridium difficile, not specified as recurrent]Onset: EpisodicIntestinal obstruction without hernia (1 source)Intestinal obstruction co-occurrent and due to decreased peristalsis; Translations: [Ileus, unspecified]Onset: 193233-91-8483VufqboxmQkuh disorders (20 sources)Mood disordersOnset: 10-16-2023 Resolved: Other connective tissue disease (11 sources)Myofascial pain syndrome; Translations: [Myalgia, other site]Onset: 337782-56-4322CqcclsvmYgufb lower respiratory disease (1 source)H/O: respiratory disease; Translations: [Personal history of other diseases of the respiratory system]Onset: 467551-28-2470UospdcstFkvxm upper respiratory infections (1 source)Acute sinusitis; Translations: [Other acute sinusitis]04-16-2023 EpisodicPancreatic disorders (not diabetes) (20 sources)Acute necrotizing pancreatitis; Translations: [Acute pancreatitis with uninfected necrosis, unspecified]Onset: 568312-20-3511Ecebzkxb Spondylosis; intervertebral disc disorders; other back problems (20 sources)Neck pain; Translations: [Cervicalgia]Onset: EpisodicUnclassified (20 sources)Onset: 04-29-2020 Resolved: Results Test NameValueInterpretationReference RangeFacilityMicroAlb Creat Ratio,Uon 82-31-1355Qkhmtpt DL <= 20 mg/L (U) [Mass/Vol]mg/dLNormal0.0-1.8The [facility] Physician GroupComment on above:Performed By: #### URMACRERAT #### [place] [address] USACreatinine, Urine (Random)35.00 mg/dLNormHCA Florida [facility] Physician [facility] HospitalComment on above:Result Comment: No reference range established Performed By: #### URMACRERAT #### [facility] [address] [place] [address] USAMicroalbumin/Creatinine RatioNot performedNormal0.0-30.0 The [facility] Physician GroupComment on above:Result Comment: PERFORMED BY: [place] [address] PATHOLOGIST PRO SHOP ATTENDANT CHAGO VELEZ M.D.Performed By: #### URMACRERAT #### [place] [id number] USAA1C HEMOGLOBINon 90-74-9758VpQ8s (Bld) [Mass fraction]7.8 %[employer] Other Glucose - FINGER STICKon 23-50-6588Muzpajg [Mass/Vol] 132 mg/dLNoScratch Wireless Other HbA1c (Bld) [Mass fraction]on 14-09-7642W3S HEMOGLOBIN [employer] Other A1C HEMOGLOBINon 00-47-8016XmO3c (Bld) [Mass fraction] 6.7 %[employer] Other Glucose - FINGER STICKon 89-81-6936Rarclrh [Mass/Vol] 126 mg/dLNoScratch Wireless Other HbA1c (Bld) [Mass fraction]on 39-04-2431W7J HEMOGLOBIN [employer] Other Glucose - FINGER STICKon 44-07-5133Qaaxgbr [Mass/Vol] 106 mg/dLNoScratch Wireless Other Glucose - FINGER STICKon 06-98-1862Fcpyqbf [Mass/Vol] 131 mg/dLNoScratch Wireless Other GGTon 86-97-7510Mteiv glutamyl transferase [Catalytic activity/Vol]27 U/LNormal8-55The [facility] HospitalComment on above:Performed By: #### GGT, ALT, AST #### [facility] [address] [place], [place] [address] Dr. Caridad Odomn 40-20-5966JTG [Catalytic activity/Vol]24 U/HZjuknc34-46Mpd [facility] HospitalComment on above:Performed By: #### GGT, ALT, AST ####[facility] [address] [place], [place] [address]YuDr. Caridad Rice on 87-31-2416RLF [Catalytic activity/Vol]40 U/XZbwalh40-28Wrx [facility] Comment on above:Performed By: #### GGT, ALT, AST #### [facility] [address] [place], [place] [address] Dr. Caridad Luna - FINGER STICKon 06-23-3717Cuoxakw [Mass/Vol]126 mg/dL [employer] Other A1C HEMOGLOBINon 86-93-3863DpU2t (Bld) [Mass fraction] 10.0 %[employer] Other Glucose - FINGER STICKon 29-44-3877Lnivqct [Mass/Vol] 125 mg/dLNort localstay.com Other HbA1c (Bld) [Mass fraction]on 78-88-4954K9N HEMOGLOBIN [facility] [employer] Other 272-6870Q-FJCRXAE, SERUMon 52-03-7036X-Peptide, Serum3.5 ng/mL Normal1.1-4.4The [facility] HospitalComment on above:Result Comment: C-Peptide reference interval is for fasting patients.Performed By: #### CPEPT #### [facility] [address] [place] [address] [address] Caridad CanadaGGTon 26-77-8903Lguyd glutamyl transferase [Catalytic activity/Vol]40 U/LNormal8-55St[facility] HospitalComment on above:Performed By: #### AST, K, ALT, LIPID, GGT ####[facility] [address] [place] [address]DrAries CanadaGLUCOSE BLOODon 56-44-4714Aptgila [Mass/Vol]342 mg/dLCritically okbe10-980TuzSt. Rita'S HospitalComment on above: Performed By: #### GLUC ####[facility] [address] [place] [address]DrAries CanadaLIPID PROFILEon 72-77-3588KSHL-HDL RATIO NORMSEE BELOWNoCleveland Clinic Lutheran HospitalComment on above:Result Comment: 3.3 - 4.4 LOW RISK 4.4 - 7.1 AVERAGE RISK 7.1 - 11.0 MODERATE RISK >11.0 HIGH RISKPerformed By: #### AST, K, ALT, LIPID, GGT ####[facility] [address] [place] [address]DrAries CanadaCholesterol [Mass/Vol]142 mg/dLNormal<=200The [facility] HospitalComment on above:Performed By: #### AST, K, ALT, LIPID, GGT ####[facility] [address] [place] [address]Dr. Yilan ChangCholesterol in HDL [Mass/Vol]32 mg/dL Critically ajw92-04NrlTuscarawas Hospital on above:Performed By: #### AST, K, ALT, LIPID, GGT ####[facility] [address] [place] [address]Dr. Yilan ChangCholesterol in LDL [Mass/Vol]62.2 mg/dLUC Medical CenterComwalter p. [facility] on above:Performed By: #### AST, K, ALT, LIPID, GGT ####[facility] [address] [place], [place] [address]Dr. Yilan ChangCholesterol.total/Cholesterol in HDL [Mass ratio]4.4 {ratio}NormalThe [facility] on above:Performed By: #### AST, K, ALT, LIPID, GGT ####[facility] [address] [place], [place] [address]Dr. Yilan ChangHDL NORMAL> or = 60 mg/dl - LOW CARDIOVASCULAR RISK <40 mg/dl - HIGH CARDIOVASCULAR RISKUC Medical CenterComwalter p. reuther psychiatric hospital on above:Performed By: #### AST, K, ALT, LIPID, GGT ####[facility] [address] [place], [place] [address]Dr. Yilan ChangLDL CALC NORMALSEE BELOWUC Medical CenterComwalter p. reuther psychiatric hospital on above:Result Comment: <100 mg/dl OPTIMAL 100 - 129 mg/dl NEAR OR ABOVE OPTIMAL 130 - 159 mg/dl BORDERLINE HIGH 160 - 189 mg/dl HIGH >190 mg/dl VERY HIGHPerformed By: #### AST, K, ALT, LIPID, GGT ####[facility] [address] [place], [place] [address]Dr. Yilan Canada Triglyceride [Mass/Vol]239 mg/dLCritically high<=150[facility] on above:Performed By: #### AST, K, ALT, LIPID, GGT ####[facility] [address] [place], [place] [address]Dr. Yilan ChangVLDL CALC47.8 mg/dLUC Medical CenterComment on above:Performed By: #### AST, K, ALT, LIPID, GGT ####[facility] [address] [place] [address]Dr. Caridad ChangMICROALB CREAT RATIO RANDOMon 82-69-3538vHYA<1.3Normal<=30.0 The [facility] HospitalComment on above:Performed By: #### MCRR ####[facility] [address] [place], [place] [address]Dr. Caridad CanadaMALB CR RATIO11.1 mg/gNormal0.0-29.9The [facility] HospitalComment on above:Performed By: #### MCRR ####[facility] [address] [place], [place] [address]Dr. Caridad ChangMALB CR RATIO RANGESEE BELOWUC Medical Center Comment on above:Result Comment: NO MICROALBUMINURIA 0-29 MG/G CLINICAL MICROALBUMINURIA 30-300 MG/G MACROALBUMINURIA >300 MG/GPerformed By: #### MCRR ####[facility] [address] [place], [place] [address]Dr. Caridad ChangURINE UUIPI294.75 mg/sNXcmoyl62.00-300.00St[facility] HospitalComment on above:Performed By: #### MCRR ####[facility] [address] [place], [place] [address]Dr. Caridad CanadaPOTASSIUMon 25-85-3708Wcjujeywu [Moles/Vol]4.1 mmol/LNormal3.5-5.1The [facility] HospitalComment on above: Performed By: #### AST, K, ALT, LIPID, GGT ####[facility] [address] [place], [place] [address]Dr. Caridad CanadaSGOTon 38-61-4640QZD [Catalytic activity/Vol]32 U/OKhinjj59-04Mom [facility] HospitalComment on above: Performed By: #### AST, K, ALT, LIPID, GGT ####[facility] [address] [place], [place] [address]RsDr. Caridad CanadaSGPTon 69-76-4925BZU [Catalytic activity/Vol]63 U/LCritically ucxx00-12Ful [facility] HospitalComment on above:Performed By: #### AST, K, ALT, LIPID, GGT ####[facility] [address] [place], [place] [address]TrDr. Caridad CanadaGlucose - FINGER STICKon 81-69-2021Vwcjnab [Mass/Vol]359 mg/dLNosaint joseph hospital west localstay.com Other GLYCOHEMOGLOBIN A1Con 93-14-3981WMZ RECOMMENDATIONSEE BELOWUC Medical CenterComment on above:Result Comment: ADA RECOMMENDED LIMIT 4.0 - 6.0 ADA THERAPEUTIC TARGET < 7.0 ACTION SUGGESTED > 7.0Performed By: #### A1C #### [facility] [address] [place] [address] [address] Caridad CanadaGlucose [Mass/Vol]272 mg/dLNoCleveland Clinic Lutheran HospitalComment on above:Performed By: #### A1C #### [facility] [address] [place] [address] [address] Caridad CanadaHbA1c (Bld) [Mass fraction]11.1 %Critically high4.5-6.2The [facility] HospitalComment on above:Performed By: #### A1C #### [facility] [address] [place] [address] [address] Caridad CanadaMG MAMM SCREEN 3D MERCY CADon 90-31-2593VL MAMM SCREEN 3D MERCY CAD Patient: NICHOLE SANDHU Exam Date: 11/08/2021 : 1955 Gender:F Ordering : DR SAMIA LANDEROS Admission #: [id number] Family : Order #: [id number] CLICK HERE TO VIEW EXAM RADIOLOGY REPORT [...] No Treatments None Family Cancers None LOCATION: [facility] BREAST COMPOSITION: Scattered areas fibroglandular density. [...] by: Samia Cheek MD on 11/09/2021 at 07:37[facility] MICROALBUMIN/ CREATININE RATIOon 40-28-5192Aenwrbq, Wxpio282.5 ug/mLNormalNot Estab.St. [facility]'S HospitalComment on above:Result Comment: Results confirmed on dilution.Performed By: #### MALBCRL #### [facility] [address] [place] [address] Dr. Caridad CanadaAlbumin/ Creatinine Zdnuy048 mg/g creatCritically high0-29St. [facility]'S HospitalComment on above:Result Comment: Normal: 0 - 29 Moderately increased: 30 - 300 Severely increased: >300Performed By: #### MALBCRL #### [facility] [address] [place] [address] Dr. Caridad CanadaCreatinine, Grgsm837.2 mg/dLNormalNot Estab.The [facility] Comment on above:Performed By: #### MALBCRL #### [facility] [address] [place] [address] Dr. Caridad Abraham AUTO DIFFon 63-37-0589XOUE #0.1 103/ulNormal0.0-0.1The [facility] HospitalComment on above:Performed By: #### CBC #### [facility] [address] [place] [address] Dr. Caridad CanadaBasophils/100 WBC (Bld)0.9 %Normal0.2-2.0The [facility] Comment on above:Performed By: #### CBC #### [facility] [address] [place] [address] [address] Caridad Russell #0.5 103/ulNormal0.0-0.7The [facility] HospitalComment on above: Performed By: #### CBC #### [facility] [address] [place] [address] [address] Caridad Figueroaosinophils/100 WBC (Bld)4.1 %Normal0.9-7.0The [facility] Comment on above:Performed By: #### CBC #### [facility] [address] [place] [address] Dr. Caridad Figueroarythrocyte distribution width (RBC) [Ratio]13.2 %Mmpube97.0-15.0 The [facility] HospitalComment on above:Performed By: #### CBC #### [facility] [address] [place] [address] Dr. Caridad CanadaHematocrit (Bld) [Volume fraction]42.5 %Rqijue57.0-48.0The [facility] HospitalComment on above:Performed By: #### CBC #### [facility] [address] [place] [address] Dr. Caridad CanadaHemoglobin (Bld) [Mass/Vol]14.2 g/uSCbawqt52.0-16.0The [facility] HospitalComment on above:Performed By: #### CBC #### [facility] [address] [place] [address] Dr. Caridad Murdock #0.08 10e3/ulCritically high0.00-0.03The [facility] Comment on above:Performed By: #### CBC #### [facility] [address] [place] [address] Dr. Caridad Murdock %0.7 %Critically high0.0-0.5The [facility] HospitalComment on above:Performed By: #### CBC #### [facility] [address] [place] [address] Dr. Caridad Colunga #4.0 103/ulCritically high1.2-3.8The [facility] Comment on above:Performed By: #### CBC #### [facility] [address] [place] [address] Dr. Caridad Cuellarmphocytes/100 WBC (Bld)32.9 %Pagzsh78.5-60.0The [facility] HospitalComment on above:Performed By: #### CBC #### [facility] [address] [place] [address] Dr. Caridad Bonner DIFF REQNONormalThe [facility] HospitalComment on above: Performed By: #### CBC #### [facility] [address] [place] [address] Dr. Caridad Millard (RBC) [Entitic mass]28.8 ssOtmcxu28.7-34.0The [facility] HospitalComment on above:Performed By: #### CBC #### [facility] [address] [place] [address] Dr. Caridad Millard (RBC) [Mass/Vol]33.4 g/dTOlzaqq43.9-35.2The [facility] HospitalComment on above:Performed By: #### CBC #### [facility] [address] [place] [address] Dr. Caridad Millard (RBC) [Entitic vol]86.2 vBNzxteo60.0-99.0The [facility] HospitalComment on above:Performed By: #### CBC #### [facility] [address] [place] [address] Dr. Caridad Hassan #0.7 103/ulNormal0.3-0.8The [facility] HospitalComment on above:Performed By: #### CBC #### [facility] [address] [place] [address] Dr. Caridad Hollidayocytes/100 WBC (Bld)6.1 %Normal1.7-12.0[facility] Comment on above:Performed By: #### CBC #### [facility] [address] [place] [address] Dr. Caridad Zhou #6.7 103/ulCritically high1.4-6.5The [facility] Comment on above:Performed By: #### CBC #### [facility] [address] [place] [address] [address] Caridad Forbesutrophils/100 WBC (Bld)55.3 %Qdupte43.0-75.0St[facility] HospitalComment on above:Performed By: #### CBC #### [facility] [address] [place] [address] [address] Caridad CanadaPlatelet mean volume (Bld) [Entitic vol]12.1 fLNormal9.5-13.5The [facility] HospitalComment on above:Performed By: #### CBC #### [facility] [address] [place] [address] [address] Caridad CanadaPLT320 103/ooAqhxli481-029Ddj [facility] HospitalComment on above: Performed By: #### CBC #### [facility] [address] [place] [address] [address] Caridad CanadaRBC4.93 106/ulNormal4.20-5.40The [facility] HospitalComment on above:Performed By: #### CBC #### [facility] [address] [place] [address] [address] Caridad CanadaWBC12.1 103/ulCritically high4.0-11.0[facility] HospitalComment on above:Performed By: #### CBC #### [facility] [address] [place] [address] [address] Caridad CanadaFRKYLE T4on 86-09-5442Xuop T4 [Mass/Vol]1.22 ng/dLNormal0.76-1.46 The [facility] HospitalComment on above:Performed By: #### FT4 ####[facility] [address] [place] [address]Dr.Yilan CanadaLIPID PROFILEon 11-60-5856FEZT-HDL RATIO [facility] Comment on above:Result Comment: 3.3 - 4.4 LOW RISK 4.4 - 7.1 AVERAGE RISK 7.1 - 11.0 MODERATE RISK >11.0 HIGH RISKPerformed By: #### CMP, LIPID, TSH #### [facility] [address] [place] [address] [address] Caridad CanadaCholesterol [Mass/Vol]181 mg/dLNormal<=200[facility] Comment on above:Performed By: #### CMP, LIPID, TSH #### [facility] [address] [place] [address] Dr. Caridad CanadaCholesterol in HDL [Mass/Vol]30 mg/dLCritically bdi34-78Ekf [facility] HospitalComment on above:Performed By: #### CMP, LIPID, TSH #### [facility] [address] [place] [address] Dr. Caridad CanadaCholesterol in LDL [Mass/Vol]74.6 mg/dLNoCleveland Clinic Lutheran HospitalComment on above:Performed By: #### CMP, LIPID, TSH #### [facility] [address] [place] [address] Dr. Caridad Oliveiraesternevaeh.total/Cholesterol in HDL [Mass ratio]6.0 {ratio} NormalThe [facility] HospitalComment on above:Performed By: #### CMP, LIPID, TSH #### [facility] [address] [place] [address] Dr. Caridad Casper NORMAL> or = 60 mg/dl - LOW CARDIOVASCULAR RISK <40 mg/dl - HIGH CARDIOVASCULAR RISKUC Medical CenterComment on above:Performed By: #### CMP, LIPID, TSH #### [facility] [address] [place] [address] Dr. Caridad CanadaLDL CALC NORMALSEE BELOWUC Medical CenterComment on above:Result Comment: <100 mg/dl OPTIMAL 100 - 129 mg/dl NEAR OR ABOVE OPTIMAL 130 - 159 mg/dl BORDERLINE HIGH 160 - 189 mg/dl HIGH >190 mg/dl VERY HIGH Performed By: #### CMP, LIPID, TSH #### [facility] [address] [place] [address] Dr. Caridad CanadaTriglyceride [Mass/Vol]382 mg/dLCritically high<=150The [facility] HospitalComment on above:Performed By: #### CMP, LIPID, TSH #### [facility] [address] [place] [address] [address] aCridad GilliamLDL CALC76.4 mg/dLNormalThe [facility] HospitalComment on above: Performed By: #### CMP, LIPID, TSH #### [facility] [address] [place] [address] [address] Caridad CanadaPROF 14(COMP METB)on 37-51-4309Wvrnvob [Mass/Vol]3.6 g/dLNormal 3.4-5.0The [facility] HospitalComment on above:Performed By: #### CMP, LIPID, TSH #### [facility] [address] [place] [address] Dr. Caridad CanadaAlbumin/Globulin [Mass ratio]0.8 {ratio}NormalThe [facility] HospitalComment on above:Performed By: #### CMP, LIPID, TSH #### [facility] [address] [place] [address] Dr. Caridad Wolfe [Catalytic activity/Vol]98 U/BNpxlql58-595Vow [facility] HospitalComment on above:Performed By: #### CMP, LIPID, TSH #### [facility] [address] [place] [address] Dr. Caridad Murray [Catalytic activity/Vol]53 U/DPgnxio86-96Krg [facility] Hospitalment on above:Performed By: #### CMP, LIPID, TSH #### [facility] [address] [place] [address] Dr. Caridad Saunders gap [Moles/Vol]13.6 mmol/LNormalThe [facility] on above:Performed By: #### CMP, LIPID, TSH #### [facility] [address] [place] [address] Dr. Caridad Cano [Catalytic activity/Vol]28 U/GHcwmrz98-94Thu [facility] Hospitalment on above:Performed By: #### CMP, LIPID, TSH #### [facility] [address] [place] [address] Dr. Caridad CanadaBilirubin [Mass/Vol]0.4 mg/dLNormal0.2-1.0The [facility] Comment on above:Performed By: #### CMP, LIPID, TSH #### [facility] [address] [place] [address] Dr. Caridad CanadaCalcium [Mass/Vol]9.2 mg/dLNormal8.5-10.1The [facility] Comment on above:Performed By: #### CMP, LIPID, TSH #### [facility] [address] [place] [address] Dr. Caridad CanadaChloride [Moles/Vol]99 mmol/XBmersr79-219Duf [facility] Comment on above:Performed By: #### CMP, LIPID, TSH #### [facility] [address] [place] [address] Dr. Caridad CanadaCO2 [Moles/Vol]29.8 mmol/LQoudjs16.0-32.0The [facility] Comment on above:Performed By: #### CMP, LIPID, TSH #### [facility] [address] [place] [address] Dr. Caridad CanadaCreatinine [Mass/Vol]0.66 mg/dLNormal0.55-1.02The [facility] HospitalComment on above:Performed By: #### CMP, LIPID, TSH #### [facility] [address] [place] [address] Dr. Caridad FigueroaGFR-AF PUERTO RICAN>60Normal>=60The [facility] HospitalComment on above:Performed By: #### CMP, LIPID, TSH #### [facility] [address] [place] [address] Dr. Caridad FigueroaGFR-NON AF PUERTO RICAN>60Normal>=60The [facility] HospitalComment on above:Performed By: #### CMP, LIPID, TSH #### [facility] [address] [place] [address] Dr. Caridad CanadaGlobulin (S) [Mass/Vol]4.3 g/dLNormalThe [facility] HospitalComment on above:Performed By: #### CMP, LIPID, TSH #### [facility] [address] [place] [address] Dr. Caridad CanadaGlucose [Mass/Vol]301 mg/dLCritically ymfg17-177Fzg [facility] HospitalComment on above:Performed By: #### CMP, LIPID, TSH #### [facility] [address] [address] [address] Caridad CanadaPotassium [Moles/Vol]3.4 mmol/LCritically low3.5-5.1The [facility] City HospitalComment on above:Performed By: #### CMP, LIPID, TSH #### [facility] [address] [place] [address] Dr. Caridad CanadaProtein [Mass/Vol]7.9 g/dLNormal6.4-8.2[facility] Comment on above:Performed By: #### CMP, LIPID, TSH #### [facility] [address] [place] [address] Dr. Caridad CanadaSodium [Moles/Vol]139 mmol/OGnnyfr781-849Fto [facility] Comment on above:Performed By: #### CMP, LIPID, TSH #### [facility] [address] [place] [address] Dr. Caridad CanadaUrea nitrogen [Mass/Vol]6.0 mg/dLCritically low7.0-18.0The [facility] HospitalComment on above:Performed By: #### CMP, LIPID, TSH #### [facility] [address] [place] [address] Dr. Caridad CanadaUrea nitrogen/Creatinine [Mass ratio]9.1 mg/mgNormalThe [facility] HospitalComment on above:Performed By: #### CMP, LIPID, TSH #### [facility] [address] [place] [address] Dr. Caridad Dodge 34-69-3520VYN8.566 uIU/mLNormal0.358-3.740The [facility] HospitalComment on above:Performed By: #### CMP, LIPID, TSH #### [facility] [address] [place] [address] Dr. Caridad Sauceda [id number] (PAINMN) INDRANICHOLE CHIRINOS ([id number]) 1955 F Date Time Provider Department 01/25/21 [...] A DAY NEEDED FOR PAIN DIRECTED - ohvtsb-lznorcek-sigbasz (ZENPEP) 40,000-126,000- 168,000 unit delayed release capsule [...] mouth once daily. - blood sugar diagnostic ([employer] VERIO) test strip Use as instructed Problem [...] DIRECTED Encounter Status:Closed by JACEY CABRAL on 01/25/21NoCentervilleANES POSTPROC EVALon [id number] POSTPROC EVALHNO ID: [id number] Author: Jayce Chase DO Service: Anesthesiology Author Type: Anesthesiologist Type: Anesthesia Postprocedure Evaluation Filed: 08/31/2020 9:44 AM Note Text: POST ANESTHESIA EVALUATION NOTE : 1955 Procedure Summary Date: 08/31/20 Room / Location: ENDO04 / ENDO Anesthesia Start: 839 Anesthesia Stop: 900 Procedure: COLONOSCOPY WITH BIOPSY (N/A Abdomen) Diagnosis: Overflow diarrhea Irritable bowel syndrome with constipation Change in bowel habits (Dx: Overflow diarrhea [R19.7 (ICD-10-CM)]; Irritable bowel syndrome with constipation [K58.1 (ICD-10-CM)]; Change in bowel habits [R19.4 (ICD-10-CM)]) (PATIENT OUT OF TOWN; WOULD LIKE LATEST IN ) Surgeons: Jayce Stephen DO Responsible Provider: Jayce Chase DO Anesthesia [...] August 31, 2020 TIME: 9:44 AM CSN: [id number] HospitalANES PRE-OPon 08-31-2020 ANES PRE-OPHNO ID: [id number] Author: Jayce Chase DO Service: Anesthesiology Author Type: Anesthesiologist Type: Anesthesia Preprocedure Evaluation Filed: 08/31/2020 7:29 AM Note Text: ANESTHESIOLOGY DAY OF SURGERY NOTE : 1955 Procedure(s) (LRB): COLONOSCOPY (N/A) Surgeon(s): Jayce Stephen DO Estimated body mass index is 31.26 [...] A DAY NEEDED FOR PAIN DIRECTED - qdzqae-wcggnlzp-zxqyohk (ZENPEP) 40,000-126,000- 168,000 unit cpDR Take 2 [...] mouth once daily. - blood sugar diagnostic (CriptextTOUCH VERIO) test strip Use as instructed I have interviewed and examined the patient. I have reviewed the medical record and/or the pre-anesthesia evaluation, pertinent labs, and test results. This contains updated information obtained within 48 hours of Surgery/Procedure. SIGNATURE: Chino Gravse DO PATIENT NAME: Nichole Sandhu DATE: August 31, 2020 TIME: 7:27 AM CSN: [id number] HospitalCNCOon [id number] Letter TextNoSt. Louis Behavioral Medicine InstituteHISTORY PHYSICALon [id number] PHYSICALHNO ID: [id number] Author: Chaz Benitez PA-C Service: Gastroenterology Author Type: Physician [employer] Type: HANDP Filed: 08/31/2020 8:10 AM Note [...] is colonoscopy. Medication reconciliation list reviewed in [facility]. Past medical history, past surgical history, social history and family history reviewed and updated in [facility]. ALLERGIES Allergen Reactions - Ativan [Lorazepam] [...] Sandhu DATE: August 31, 2020 TIME: 7:28 [facility] [id number] PROGHNO ID: [id number] Author: Ericka Hughes RN Service: Gastroenterology Author Type: Registered Nurse Type: Nursing Progress Note Filed: 09/01/2020 10:56 AM Note Text: [facility] END[facility] POST PROCEDURE FOLLOW UP CALL [phone] (home) Date Phone Call Made: 09/01/2020 Attempt: [...] your experience more pleasant? No Ericka Hughes RNNoResearch Psychiatric Center PATHOLOGYon 08-31-2020 SURGICAL PATHOLOGYSpecimen originated from [facility] Specimen #: [id number] Submitting Physician: JAYCE STEPHEN FINAL DIAGNOSIS 1. Random colon, biopsy (A) [...] in one cassette. Gross examination performed at [facility], [address] [place] [address] 08/31/2020 2:17:20 PM Date of Report: 09/01/2020 Date of Procedure: 08/31/2020 Date of Receipt: 08/31/2020 Submitted by: JAYCE STEPHEN Location: [facility] Diagnostic interpretation performed at [facility], [address] [place] [address], [place] [address]. CLIA Number: [id number] Hospital NURSING PROGon [id number] BRIAN ID: [id number] Author: Rosibel Aiken RN Service: ? Author Type: Registered Nurse Type: Nursing Progress Note Filed: 08/30/2020 2:11 PM Note Text: [facility] ENDOSCOPY PRE PROCEDURE CALL Diana. I'm calling from [facility] endoscopy to provide you with the information [...] confirm the name and relationship of your stunt driver. Breana Sandhu What is the best number for your stunt driver to be reached at tomorrow for updates? [phone] At this time due to COVID precautions [...] to proceed. Are you familiar with where [facility] is located?yes Address [facility] Patient instructed to enter through the main hospital entrance off [address] at [address] through the revolving doors and check in at the main desk with your stunt driver's license and insurance card. yes If anesthesia or sedation is being given: Patient instructed you must have an adult stunt driver because you will not be able to work or drive for the rest of the day after your test.yes Patient instructed not bring any valuables, jewelry, or ponce and wear comfortable clothing. Do not wear makeup, lotion, or finger amharic. yes Patient instructed: Do not eat or [...] given Any barriers to Patient learning (confusion? Behavioral Consultant needed?): Patient/Patient Local Delivery Driver responded appropriately on phone. Type of instruction given: Verbal by telephone contact.[facility] [id number] (SPDIG) NICHOLE SANDHU ([id number]) 1955 F Date Time Provider Department 08/18/20 JAYCE STEPHEN During your visit today, we recorded the following information about you: Bernarda Pérez RN 08/18/2020 5:08 PM Signed COLONOSCOPY- Delete [...] instructed that they will need a designated stunt driver on the day of the exam. [...] day.Patient verbalized understanding of all teaching. Bernarda Pérez RN Allergies As of Date: 08/18/2020 Noted [...] A DAY NEEDED FOR PAIN DIRECTED - hmohim-lczjfopi-ihokgak (ZENPEP) 40,000-126,000- 168,000 unit cpDR Take 2 [...] 40 mg by mouth once daily. - pfgkow-adxphcpa-ruitmvg (ZENPEP) 40,000-126,000- 168,000 unit cpDR Take 2 [...] mouth once daily. - blood sugar diagnostic ([employer] VERIO) test strip Use as instructed Problem [...] syndrome [M79.18] 09/23/2019 Encounter Status:Closed by BERNARDA PÉREZ Deborah on 08/18/20[facility] Coding Summary.on 54-03-7056Eeuofq Summary.CODING DATE: 01/16/2018 FINAL [facility] STATUS: Home (Routine DC) PAYOR: [facility] [place] [facility] DESCRIPTION 5571 Level 1 Imaging with [...] Sherin Denny CphT Date Saved: 01/16/2018 07:44 amNMarietta Memorial HospitalCoding Summary. on 90-38-5898Pxjdhq Summary.CODING DATE: 12/27/2017 FINAL [facility] STATUS: Home (Routine DC) PAYOR: [facility] [place] ADMIT DX: REASON FOR VISIT DX: E61.1 [...] Sherin Denny CphT Date Saved: 12/27/2017 02:09 pmNMarietta Memorial HospitalAuto Diffon 88-75-9749Fryeuhrhz/100 WBC (Bld)0.2 %Normal0.0-2.0[facility] Comment on above:Order Comment: Order Added by Discern Expert.Performed By: #### [id number], 29341480, 13394592, 4604345, 8847560 #### [facility] [address] [place] [address] 82389Xflcwclue/Leukocytes Auto (Bld) [Pure # fraction]0.0 E9/LNormal 0.0-0.2FSt. Rita's HospitalComment on above:Order Comment: Order Added by Discern Expert.Performed By: #### 2794724, 82309244, 51815652, 7315798, 2084684 #### [facility] [address] [place] [address] 916[address]Upycskzvlsg/100 WBC (Bld)0.9 %Normal0.0-8.0[facility] HospitalComment on above:Order Comment: Order Added by Discern Expert.Performed By: #### 8956691, 78120565, 68433925, 0479364, 0374688 #### [facility] [address] [place] [address] 11102Xsogdtqjaxd/Leukocytes Auto (Bld) [Pure # fraction]0.1 E9/L Normal0.0-0.5FSt. Rita's HospitalComment on above:Order Comment: Order Added by Discern Expert.Performed By: #### 8988729, 25570250, 08622388, 4656094, 1689758 #### [facility] [address] [place] [address] 422[address]Puhjpknrwjm/100 WBC (Bld)8.4 %Low14.0-50.0[facility] HospitalComment on above:Order Comment: Order Added by Discern Expert.Performed By: #### 1661225, 56535496, 23248278, 0991898, 7104400 #### [facility] [address] [place] [address] 77[address]Jeavawvnpun/Leukocytes Auto (Bld) [Pure # fraction]1.3 E9/L Normal1.0-4.0[facility] HospitalComment on above:Order Comment: Order Added by Discern Expert.Performed By: #### 7158301, 00540224, 71889933, 7763706, 6540594 #### [facility] [address] [place] [address] 680[address]Ntcbatvyp/100 WBC (Bld)6.8 %Normal4.0-14.0[facility] HospitalComment on above:Order Comment: Order Added by Discern Expert.Performed By: #### 7993136, 85187160, 02779343, 3073499, 1748619 #### [facility] [address] [place], [place] [address]Voiztrjfo/Leukocytes Auto (Bld) [Pure # fraction]1.1 E9/LHigh 0.2-1.0[facility] HospitalComment on above:Order Comment: Order Added by Discern Expert.Performed By: #### 3384991, 93760007, 95281677, 2928704, 7699577 #### [facility] [address] [place] [address] 924[address]Pkgsabwsvxq/100 WBC (Bld)83.7 %High36.0-75.0[facility] HospitalComment on above:Order Comment: Order Added by Discern Expert. Performed By: #### 6734750, 54886643, 81806527, 1792109, 0300117 #### [facility] [address] [place] [address] 981[address]Couqkdfpgkb/Leukocytes Auto (Bld) [Pure # fraction]13.1 E9/L High2.0-7.5FSt. Rita's HospitalComment on above:Order Comment: Order Added by Discern Expert.Performed By: #### 0097157, 49571628, 84579468, 1626412, 3643521 #### [facility] [address] [place] [address]NIJ w/ Auto Diffon 92-98-2819Hjmjbjxoeph distribution width (RBC) [Ratio]16.4 %High10.9-14.2FSt. Rita's HospitalComment on above: Performed By: #### 3630759, 22704160, 28775049, 3471787, 8716036 #### [facility] [address] [place] [address] 18891Qbwrfbyumy (Bld) [Volume fraction]29.6 %Low34.0-46.0[facility] HospitalComment on above:Performed By: #### 1458261, 59635005, 73334856, 5984866, 7595618 #### [facility] [address] [place], [place] [address]Gkdcevxjcv (Bld) [Mass/Vol]9.2 g/dLLow12.0-16.0[facility] HospitalComment on above:Performed By: #### 2157752, 48648394, 86133990, 8785019, 9223621 #### [facility] [address] [place], [place] [address]ZUA (RBC) [Entitic mass]23.6 pgLow27.0-34.0[facility] HospitalComment on above:Performed By: #### 3678924, 16059413, 55909235, 2330843, 9071523 #### [facility] [address] [place] [address] 278[address]XIKH (RBC) [Mass/Vol]31.1 g/dLLow31.4-39.3FSt. Rita's HospitalComment on above:Performed By: #### 9924629, 01581041, 02312170, 5260247, 7504230 #### [facility] [address] [place] [address] 485[address]JJC (RBC) [Entitic vol]75.9 fLLow80.0-100.0[facility] HospitalComment on above:Performed By: #### 4859894, 52507923, 36837479, 0172612, 3752201 #### [facility] [address] [place], [place] [address]Hbxhlzgx mean volume (Bld) [Entitic vol]10.2 fLNormal6.4-10.8 [facility] HospitalComment on above:Performed By: #### 1645405, 98783310, 10748021, 7763047, 5090111 #### [facility] [address] [place] [address] 69[address]Hytcvcpbt (Bld) [#/Vol]375.0 E9/ZOpiwtw953.0-500.0[facility] HospitalComment on above:Performed By: #### 6142208, 07687904, 05460707, 8984325, 6104853 #### [facility] [address] [place] [address] 555[address]LRU (Bld) [#/Vol]3.9 E12/LLow4.3-5.9[facility] Comment on above:Performed By: #### 6541884, 64295989, 44970501, 1538481, 8357477 #### [facility] [address] [place] [address]MEZ corrected for nucl RBC Auto (Bld) [#/Vol]15.6 E9/LHigh 4.0-11.0[facility] HospitalComment on above:Performed By: #### 4979388, 93617802, 40336179, 9306554, 4037124 #### [facility] [address] [place] [address] 138[address]DCDgk 67-17-4986Gptszvp [Mass/Vol]0.6 g/dLLow1.1-2.2FSt. Rita's HospitalComment on above:Performed By: #### 5683004, 30455284, 59259129, 1329705, 2272257 #### [facility] [address] [place] [address]Exorvre [Mass/Vol]2.9 g/dLLow3.3-5.0[facility] Comment on above:Performed By: #### 2869140, 59581485, 54187304, 3699723, 6679721 #### [facility] [address] [place] [address] 369[address]CVQ [Catalytic activity/Vol]62 Int._Unit/QNrxjih04-58RvsdedSalem City HospitalComment on above:Performed By: #### 5117629, 76048002, 29884584, 8877385, 7751762 #### [facility] [address] [place] [address] 700[address]NDG No additional P-5'-P [Catalytic activity/Vol]12 Int._Unit/L Normal6-46[facility] HospitalComment on above:Performed By: #### 9478886, 48592985, 60321520, 4459495, 3017707 #### [facility] [address] [place], [place] [address]Ddfts gap [Moles/Vol]16 mmol/LNormal6-16[facility] HospitalComment on above:Performed By: #### 6604071, 71512692, 33534552, 2937445, 5674213 #### [facility] [address] [place], [place] [address]SZV [Catalytic activity/Vol]19 Int._Unit/LNormal5-43[facility] HospitalComment on above:Performed By: #### 9469066, 19597356, 15829288, 7910332, 7398183 #### [facility] [address] [place], [place] [address]Yaroxpdvg [Mass/Vol]0.5 mg/dLNormal0.0-1.1FSt. Rita's HospitalComment on above:Performed By: #### 8309656, 87886071, 36596701, 3311086, 2699767 #### [facility] [address] [place], [place] [address]Ymybusv [Mass/Vol]8.9 mg/dLNormal8.9-11.1FSt. Rita's HospitalComment on above:Performed By: #### 2224851, 25302786, 59156260, 7271770, 7571940 #### [facility] [address], [place] [address]Ojopfurs [Moles/Vol]98 mmol/AFrj297-893VqatwgSalem City HospitalComment on above:Performed By: #### 6777462, 86837481, 38793880, 3053597, 4718700 #### [facility] [address] [place], [place] [address]LC2 [Moles/Vol]26 mmol/EFaqfkt44-95RthxfxSalem City Hospital Comment on above:Performed By: #### 5969992, 95815617, 16488268, 0009942, 8465654 #### [facility] [address] [place] [address]Owxaruesbh [Mass/Vol]0.5 mg/dLNormal0.5-1.3FSt. Rita's HospitalComment on above:Performed By: #### 5668804, 44837259, 73504619, 0176288, 1618220 #### [facility] [address], [place] [address]Ogipaltw (S) [Mass/Vol]4.8 g/dLHigh1.4-4.0[facility] HospitalComment on above:Performed By: #### 7216498, 53751826, 57788600, 6551971, 2768883 #### [facility] [address] [place] [address]Sutlgld [Mass/Vol]105 mg/uJUowred00-706BqxcokSalem City HospitalComment on above:Result Comment: If this glucose result represents a fasting glucose, interpretation should refer tothe following reference range: 55-99 mg/dLPerformed By: #### 3095242, 35680687, 16360146, 1283939, 6396339 #### [facility] [address] [place] [address]Pakwyguae [Moles/Vol]3.7 mmol/LNormal3.5-5.3FSt. Rita's HospitalComment on above:Performed By: #### 0854513, 39187769, 17851431, 1761582, 3477686 #### [facility] [address], [place] [address]Bnpqhvz [Mass/Vol]7.7 g/dLNormal6.0-7.8[facility] HospitalComment on above:Performed By: #### 8798302, 22277376, 86901420, 9631827, 8562436 #### [facility] [address] [place] [address]Irottn [Moles/Vol]136 mmol/YXizxes957-670HgtghvSalem City HospitalComment on above:Performed By: #### 4530022, 70000900, 38075305, 4627097, 6144258 #### [facility] [address], [place] [address]Weac nitrogen [Mass/Vol]9 mg/dLNormal5-21[facility] HospitalComment on above:Performed By: #### 3336450, 50843671, 40883214, 4417764, 6320923 #### [facility] [address] [place], [place] [address]Zccm nitrogen/Creatinine [Mass ratio]18 No PtkroOfnhia67-71 [facility] HospitalComment on above:Performed By: #### 4757910, 79321093, 53847731, 4877059, 9962796 #### [facility] [address], [place] [address]Neuyjyx 97-24-3498Yvjwtwctjttj Ql (Bld)[facility] CenterComment on above:Order Comment: Order Added by Discern Expert.Performed By: #### 4179567, 10403437, 43780349, 8490884, 8162136 #### [facility] [address] [place], [place] [address]Cqzqgelvpo Víctor (Bld) [Interp]See MorphologyOhioHealth Grant Medical CenterComment on above:Order Comment: Order Added by Discern Expert. Performed By: #### 3301459, 51037352, 09376062, 9217363, 1328579 #### [facility] [address], [place] [address]Fwxqaqmlj Large LM Ql (Bld)[facility] Medical CenterComment on above:Order Comment: Order Added by Discern Expert.Performed By: #### 3026288, 95117905, 70884913, 9791156, 9155432 #### [facility] [address] [place], [place] [address]mALSfc 61-31-5450AWQ/1.73 sq M predicted among blacks MDRD (S/P/Bld) [Vol rate/Area]mL/min/{1.73_m2}Normal>=59[facility] Comment on above:Order Comment: Order added by Discern Expert.Result Comment: eGFR is race adjusted. AA=.Performed By: #### 4089004, 34374390, 19004821, 8653786, 9523943 #### [facility] [address], [place] [address]LDG/1.73 sq M predicted among non-blacks MDRD (S/P/Bld) [Vol rate/Area]mL/min/{1.73_m2}Normal>=59[facility] HospitalComment on above: Order Comment: Order added by Discern Expert.Result Comment: Chronic kidney disease could be indicated at eGFR's of less than 60 mL/min/1.73m2. Kidney failure is indicated at less than 15 mL/min/1.73m2.Performed By: #### 1715066, 98889894, 39976107, 0121861, 2396559 #### [facility] [address] [place], [place] [address]Frxqiv Summary.on 57-97-8787Mxxusu Summary.CODING DATE: 12/18/2017 FINAL [facility] STATUS: Home (Routine DC) PAYOR: [facility] [place] [facility] DESCRIPTION 5571 Level 1 Imaging with [...] By: Rachel Degroot Date Saved: 12/18/2017 12:08 pmNormalSalem City HospitalCreatinineon 92-91-5606Uujcqcjozs [Mass/Vol]0.5 mg/dLNormal0.5-1.3FSt. Rita's Hospital Comment on above:Performed By: #### 45063478, 0725788 #### [facility] [address] [place], [place] [address]gHRWaj 36-02-2695XTP/1.73 sq M predicted among blacks MDRD (S/P/Bld) [Vol rate/Area]mL/min/{1.73_m2}Normal>=59[facility] Comment on above:Order Comment: Order added by Discern Expert.Result Comment: eGFR is race adjusted. AA=.Performed By: #### 54134791, 6954122 #### [facility] [address], [place] [address]AJE/1.73 sq M predicted among non-blacks MDRD (S/P/Bld) [Vol rate/Area]mL/min/{1.73_m2}Normal>=59[facility] HospitalComment on above: Order Comment: Order added by Discern Expert.Result Comment: Chronic kidney disease could be indicated at eGFR's of less than 60 mL/min/1.73m2. Kidney failure is indicated at less than 15 mL/min/1.73m2.Performed By: #### 41470710, 7231977 #### [facility] [address] [place], [place] [address]Qyoe, Bloodon 01-80-3985Avta, BloodSpecimen Description .BLOOD Special Requests LT HAND Culture NO GROWTH 6 DAYS Report Status FINAL 11/08/2017[facility] Rita's Medical CenterComment on above:Performed By: #### LIP, LACWB, IOCAL, PT, CDP, CHANDU, PTT, LIPR, CMPX ####[employer] [address] [place], [place] [address] Cult,Bloodon 86-38-2511Baii,BloodSpecimen Description .BLOOD Special Requests NOT REPORTED Culture NO GROWTH 6 DAYS Report Status FINAL 11/08/2017[facility] Rita's Medical CenterComment on above:Performed By: #### LIP, LACWB, IOCAL, PT, CDP, CHANDU, PTT, LIPR, CMPX ####[facility] [address] [place] [address] Plan of Careon 38-25-1387LGG IP Note OR TranscriptionNormalUniversity [facility]als [facility] Basic Metabolic Profon 11-03-2017(cont.)NormalUniversity Hospitals Geneva Medical Center Comment on above:Result Comment: Average GFR for 60-69 years old: 85 mL/min/1.73sq mChronic Kidney Disease: <60 mL/min/1.73sq mKidney failure: <15 mL/min/1.73sq meGFR calculated using average adult body mass. Additional eGFR calculator available at:http://www.Zaarly/multiple_crcl_2012.htmPerformed By: #### LIP, LACWB, IOCAL, PT, CDP, CHANDU, PTT, LIPR, CMPX ####[address] [place] [id number] Anion gap 3 molar conc9 mmol/LNormal9-17[facility] Medical CenterComment on above:Performed By: #### LIP, LACWB, IOCAL, PT, CDP, CHANDU, PTT, LIPR, CMPX ####[facility] [address] [place] [id number] Calcium mass conc8.3 mg/dLLow8.6-10.4 [facility] Medical CenterComment on above:Performed By: #### LIP, LACWB, IOCAL, PT, CDP, CHANDU, PTT, LIPR, CMPX ####[facility] [address] [place] [address] Chloride molar kbng710 mmol/YMxon09-268KxaicUniversity Hospitals Geneva Medical CenterComment on above:Performed By: #### LIP, LACWB, IOCAL, PT, CDP, CHANDU, PTT, LIPR, CMPX ####[facility] [address] [place] [address] WL0 molar conc26 mmol/OQarpih02-84HbtejUniversity Hospitals Geneva Medical CenterComment on above:Performed By: #### LIP, LACWB, IOCAL, PT, CDP, CHANDU, PTT, LIPR, CMPX ####[facility] [address] [place] [address] Creatinine mass conc0.84 mg/dLNormal0.50-0.90[facility] Comment on above:Performed By: #### LIP, LACWB, IOCAL, PT, CDP, CHANDU, PTT, LIPR, CMPX ####[place] [address] GFR, Amer>60Normal>60[facility] Geneva Medical CenterComment on above: Performed By: #### LIP, LACWB, IOCAL, PT, CDP, CHANDU, PTT, LIPR, CMPX ####[place] [address] GFR,non Amer>60 Normal>60[facility] Medical CenterComment on above:Performed By: #### LIP, LACWB, IOCAL, PT, CDP, CHANDU, PTT, LIPR, CMPX ####[place] [address] Glucose mass zism619 mg/xZYriq43-81Qvgyq [facility] CenterComment on above:Performed By: #### LIP, LACWB, IOCAL, PT, CDP, CHANDU, PTT, LIPR, CMPX ####[place] [address] Potassium molar conc4.2 mmol/LNormal3.7-5.3Mohiohealth n[facility] health centery [facility] CenterComment on above:Performed By: #### LIP, LACWB, IOCAL, PT, CDP, CHANDU, PTT, LIPR, CMPX ####[address] [address] Sodium molar zyfp889 mmol/INyoi080-716SwqyfUniversity Hospitals Geneva Medical CenterComment on above:Performed By: #### LIP, LACWB, IOCAL, PT, CDP, CHANDU, PTT, LIPR, CMPX ####[facility] [address] [place] [address] Urea nitrogen mass conc25 mg/dLHigh8-23[facility] CenterComment on above:Performed By: #### LIP, LACWB, IOCAL, PT, CDP, CHANDU, PTT, LIPR, CMPX ####[place] [address] BUN/CRE RatioNOT REPORTEDNormal9-20[facility] Medical CenterComment on above:Performed By: #### LIP, LACWB, IOCAL, PT, CDP, CHANDU, PTT, LIPR, CMPX ####[place] [address] Staging:NOT REPORTEDNoalUniversity Hospitals Geneva Medical CenterComment on above: Performed By: #### LIP, LACWB, IOCAL, PT, CDP, CHANDU, PTT, LIPR, CMPX ####[place] [address] CBC with Diffon [id number]. Basophil0.00 k/uLNormal0.0-0.2MKaiser [facility] Comment on above:Performed By: #### LIP, LACWB, IOCAL, PT, CDP, CHANDU, PTT, LIPR, CMPX ####[place] [address] Abs.Imm.Granulocyte0.33 k/uLHigh0.00-0.30[facility] CenterComment on above:Performed By: #### LIP, LACWB, IOCAL, PT, CDP, CHANDU, PTT, LIPR, CMPX ####[place], [place] [phone].Neutrophil (Seg)13.12 k/uLHigh1.8-7.7[facility] CenterComment on above: Performed By: #### LIP, LACWB, IOCAL, PT, CDP, CHANDU, PTT, LIPR, CMPX ####[address] [address] Basophils/100 WBC Auto (Bld)0 %Normal0-2MKaiser San Leandro Medical CenterComment on above:Performed By: #### LIP, LACWB, IOCAL, PT, CDP, CHANDU, PTT, LIPR, CMPX ####[address] [address] Eosinophils Auto #/vol (Bld)0.00 10*3/uL Normal0.0-0.4[facility] CenterComment on above:Performed By: #### LIP, LACWB, IOCAL, PT, CDP, CHANDU, PTT, LIPR, CMPX ####[address] [address] Eosinophils/100 WBC Auto (Bld)0 %Low1-4 [facility] CenterComment on above:Performed By: #### LIP, LACWB, IOCAL, PT, CDP, CHANDU, PTT, LIPR, CMPX ####[place] [address] Immature granulocytes #/vol (Bld)2 %Qzdp3VwtokUniversity Hospitals Geneva Medical CenterComment on above:Performed By: #### LIP, LACWB, IOCAL, PT, CDP, CHANDU, PTT, LIPR, CMPX ####[address] [address] Lymphocytes Auto #/vol (Bld)1.49 10*3/uLNormal1.0-4.8[facility] CenterComment on above:Performed By: #### LIP, LACWB, IOCAL, PT, CDP, CHANDU, PTT, LIPR, CMPX ####[address] [address] Lymphocytes/100 WBC Auto (Bld)9 %Dom59-80HppjgUniversity Hospitals Geneva Medical CenterComment on above:Performed By: #### LIP, LACWB, IOCAL, PT, CDP, CHANDU, PTT, LIPR, CMPX ####Naheedkeyla [address] [place] [address] Monocytes Auto #/vol (Bld)1.66 10*3/uLHigh0.1-0.8[facility] CenterComment on above:Performed By: #### LIP, LACWB, IOCAL, PT, CDP, CHANDU, PTT, LIPR, CMPX ####[facility] [address] [place] [address] Monocytes/100 WBC Auto (Bld)10 %High1-7[facility] CenterComment on above:Performed By: #### LIP, LACWB, IOCAL, PT, CDP, CHANDU, PTT, LIPR, CMPX ####[place] [address] Morphology Interp Víctor (Bld)ANISOCYTOSIS PRESENTNormalUniversity Hospitals Geneva Medical CenterComment on above:Result Comment: INCREASED BANDS PRESENTTOXIC GRANULATION PRESENTPerformed By: #### LIP, LACWB, IOCAL, PT, CDP, CHANDU, PTT, LIPR, CMPX ####[address] [phone] (Seg)79 %Nxnu99-24EzhouUniversity Hospitals Geneva Medical Center Comment on above:Performed By: #### LIP, LACWB, IOCAL, PT, CDP, CHANDU, PTT, LIPR, CMPX ####[address] [address] Erythrocyte distribution width Auto Ratio (RBC)15.1 %High11.8-14.4[facility] CenterComment on above:Performed By: #### LIP, LACWB, IOCAL, PT, CDP, CHANDU, PTT, LIPR, CMPX ####[place], [place] [phone] Auto Volume Fraction (Bld)35.4 %Low36.3-47.1MKaiser San Leandro Medical CenterComment on above:Performed By: #### LIP, LACWB, IOCAL, PT, CDP, CHANDU, PTT, LIPR, CMPX ####[place] [address] Hemoglobin mass conc (Bld)10.6 g/dLLow11.9-15.1MKaiser San Leandro Medical CenterComment on above:Performed By: #### LIP, LACWB, IOCAL, PT, CDP, CHANDU, PTT, LIPR, CMPX ####[place] [address] MCH Auto Entitic mass (RBC)26.3 lmVjgxrf68.2-33.5[facility] CenterComment on above:Performed By: #### LIP, LACWB, IOCAL, PT, CDP, CHANDU, PTT, LIPR, CMPX ####[place] [address] MCHC Auto mass conc (RBC)29.9 g/dJBbfduc31.4-34.8[facility] CenterComment on above:Performed By: #### LIP, LACWB, IOCAL, PT, CDP, CHANDU, PTT, LIPR, CMPX ####[place] [address] MCV Auto Entitic volume (RBC)87.8 xJFmgrvz19.6-102.9[facility] CenterComment on above:Performed By: #### LIP, LACWB, IOCAL, PT, CDP, CHANDU, PTT, LIPR, CMPX ####[place], [place] [phone] Automated0.1 per 100 WBCHigh0.0[facility] CenterComment on above:Performed By: #### LIP, LACWB, IOCAL, PT, CDP, CHANDU, PTT, LIPR, CMPX ####[place] [address] Platelet mean volume Auto Entitic volume (Bld)11.4 fLNormal8.1-13.5[facility] CenterComment on above:Performed By: #### LIP, LACWB, IOCAL, PT, CDP, CHANDU, PTT, LIPR, CMPX ####[place], [place] [phone] Auto #/vol (Bld)267 10*3/yABcporr282-489MkbimUniversity Hospitals Geneva Medical CenterComment on above:Performed By: #### LIP, LACWB, IOCAL, PT, CDP, CHANDU, PTT, LIPR, CMPX ####[place], [place] [phone] Auto #/vol (Bld)4.03 10*6/uLNormal3.95-5.11[facility] CenterComment on above:Performed By: #### LIP, LACWB, IOCAL, PT, CDP, CHANDU, PTT, LIPR, CMPX ####[place], [place] [id number])[phone] Auto #/vol (Bld)16.6 10*3/uLHigh3.5-11.3MKaiser San Leandro Medical CenterComment on above:Performed By: #### LIP, LACWB, IOCAL, PT, CDP, CHANDU, PTT, LIPR, CMPX ####[place], [place] [phone] Diff PerformedNOT REPORTEDMercy Hospital St. LouisalUniversity Hospitals Geneva Medical CenterComment on above:Performed By: #### LIP, LACWB, IOCAL, PT, CDP, CHANDU, PTT, LIPR, CMPX ####[facility] [address] [place] [address] Platelets Auto #/vol (Bld)NOT REPORTEDMercy Health St. [facility] Comment on above:Performed By: #### LIP, LACWB, IOCAL, PT, CDP, CHANDU, PTT, LIPR, CMPX ####[address] [address] RBC morphology finding Nom (Bld)NOT REPORTEDMercy Health St. [facility] Comment on above:Performed By: #### LIP, LACWB, IOCAL, PT, CDP, CHANDU, PTT, LIPR, CMPX ####[address] [address] WBC MorphologyNOT REPORTEDMercy Health St. Rita's Medical CenterComment on above: Performed By: #### LIP, LACWB, IOCAL, PT, CDP, CHANDU, PTT, LIPR, CMPX ####[place] [address] Abs. Basophil0.00 k/uL Normal0.0-0.2MKaiser San Leandro Medical CenterComment on above:Performed By: #### LIP, LACWB, IOCAL, PT, CDP, CHANDU, PTT, LIPR, CMPX ####[place] [address] Abs.Imm.Granulocyte0.16 k/uLNormal 0.00-0.30[facility] CenterComment on above:Performed By: #### LIP, LACWB, IOCAL, PT, CDP, CHANDU, PTT, LIPR, CMPX ####[place] [address] Abs.Neutrophil (Seg)13.34 k/uLHigh1.8-7.7 [facility] CenterComment on above:Performed By: #### LIP, LACWB, IOCAL, PT, CDP, CHANDU, PTT, LIPR, CMPX ####[address] [address] Basophils/100 WBC Auto (Bld)0 %Normal0-2[facility] Medical CenterComment on above:Performed By: #### LIP, LACWB, IOCAL, PT, CDP, CHANDU, PTT, LIPR, CMPX ####[address] [address] Eosinophils Auto #/vol (Bld)0.00 10*3/uLNormal0.0-0.4[facility] CenterComment on above:Performed By: #### LIP, LACWB, IOCAL, PT, CDP, CHANDU, PTT, LIPR, CMPX ####[address] [address] Eosinophils/100 WBC Auto (Bld)0 %Low1-4[facility] CenterComment on above:Performed By: #### LIP, LACWB, IOCAL, PT, CDP, CHANDU, PTT, LIPR, CMPX ####[place] [address] Immature granulocytes #/vol (Bld)1 %Bsgn3VdfckUniversity Hospitals Geneva Medical CenterComment on above:Performed By: #### LIP, LACWB, IOCAL, PT, CDP, CHANDU, PTT, LIPR, CMPX ####[address] [address] Lymphocytes Auto #/vol (Bld)1.10 10*3/uLNormal1.0-4.8[facility] CenterComment on above:Performed By: #### LIP, LACWB, IOCAL, PT, CDP, CHANDU, PTT, LIPR, CMPX ####[address] [address] Lymphocytes/100 WBC Auto (Bld)7 %Azn22-23YryngUniversity Hospitals Geneva Medical CenterComment on above:Performed By: #### LIP, LACWB, IOCAL, PT, CDP, CHANDU, PTT, LIPR, CMPX ####[address]is[address] [place] [address] Monocytes Auto #/vol (Bld)1.10 10*3/uLHigh0.1-0.8[facility] CenterComment on above:Performed By: #### LIP, LACWB, IOCAL, PT, CDP, CHANDU, PTT, LIPR, CMPX ####[facility] [address]klbth[address] [place] [address] Monocytes/100 WBC Auto (Bld)7 %Normal1-7[facility] CenterComment on above:Performed By: #### LIP, LACWB, IOCAL, PT, CDP, CHANDU, PTT, LIPR, CMPX ####[facility] [address] [place] [address] Morphology Interp Víctor (Bld)INCREASED BANDS PRESENTNormalUniversity Hospitals Geneva Medical CenterComment on above:Result Comment: TOXIC GRANULATION PRESENTANISOCYTOSIS PRESENTPerformed By: #### LIP, LACWB, IOCAL, PT, CDP, CHANDU, PTT, LIPR, CMPX ####[place] [address] Neutrophil (Seg)85 %Naiu24-02QdqtkUniversity Hospitals Geneva Medical Center Comment on above:Performed By: #### LIP, LACWB, IOCAL, PT, CDP, CHANDU, PTT, LIPR, CMPX ####[facility] [address]bolcag[address] [place] [address] Erythrocyte distribution width Auto Ratio (RBC)15.0 %High11.8-14.4[facility] CenterComment on above:Performed By: #### LIP, LACWB, IOCAL, PT, CDP, CHANDU, PTT, LIPR, CMPX ####[facility] [address] [place] [address] Hematocrit Auto Volume Fraction (Bld)35.5 %Low36.3-47.1MKaiser San Leandro Medical CenterComment on above:Performed By: #### LIP, LACWB, IOCAL, PT, CDP, CHANDU, PTT, LIPR, CMPX ####[place] [address] Hemoglobin mass conc (Bld)10.8 g/dLLow11.9-15.1MKaiser San Leandro Medical CenterComment on above:Performed By: #### LIP, LACWB, IOCAL, PT, CDP, CHANDU, PTT, LIPR, CMPX ####[place] [address] MCH Auto Entitic mass (RBC)26.5 qmGcahaw02.2-33.5[facility] CenterComment on above:Performed By: #### LIP, LACWB, IOCAL, PT, CDP, CHANDU, PTT, LIPR, CMPX ####[place] [address] MCHC Auto mass conc (RBC)30.4 g/tOTeaayj01.4-34.8[facility] CenterComment on above:Performed By: #### LIP, LACWB, IOCAL, PT, CDP, CHANDU, PTT, LIPR, CMPX ####[place] [address] MCV Auto Entitic volume (RBC)87.2 sMVncijj35.6-102.9[facility] CenterComment on above:Performed By: #### LIP, LACWB, IOCAL, PT, CDP, CHANDU, PTT, LIPR, CMPX ####[place], [place] [id number])427-8883NRBC Automated0.0 per 100 WBCNormal0.0[facility] CenterComment on above:Performed By: #### LIP, LACWB, IOCAL, PT, CDP, CHANDU, PTT, LIPR, CMPX ####[facility] [address] [place] [address] Platelet mean volume Auto Entitic volume (Bld)11.7 fLNormal 8.1-13.5[facility] CenterComment on above:Performed By: #### LIP, LACWB, IOCAL, PT, CDP, CHANDU, PTT, LIPR, CMPX ####[place] [address] Platelets Auto #/vol (Bld)260 10*3/uLNormal 138-453[facility] CenterComment on above:Performed By: #### LIP, LACWB, IOCAL, PT, CDP, CHANDU, PTT, LIPR, CMPX ####[place] [address] RBC Auto #/vol (Bld)4.07 10*6/uLNormal3.95-5.11 [facility] CenterComment on above:Performed By: #### LIP, LACWB, IOCAL, PT, CDP, CHANDU, PTT, LIPR, CMPX ####[place] [address] WBC Auto #/vol (Bld)15.7 10*3/uLHigh3.5-11.3 [facility] CenterComment on above:Performed By: #### LIP, LACWB, IOCAL, PT, CDP, CHANDU, PTT, LIPR, CMPX ####[place] [address] Auto Diff PerformedNOT REPORTEDMercy Health St. Rita's Medical CenterComment on above:Performed By: #### LIP, LACWB, IOCAL, PT, CDP, CHANDU, PTT, LIPR, CMPX ####[facility] [address] [place] [address] Platelets Auto #/vol (Bld)NOT REPORTEDMercy Health St. Rita's Medical CenterComment on above:Performed By: #### LIP, LACWB, IOCAL, PT, CDP, CHANDU, PTT, LIPR, CMPX ####[facility] [address] [place] [address] RBC morphology finding Nom (Bld)NOT REPORTEDMercy Health St. Rita's Medical CenterComment on above:Performed By: #### LIP, LACWB, IOCAL, PT, CDP, CHANDU, PTT, LIPR, CMPX ####[facility] [address] [place] [address] WBC MorphologyNOT REPORTEDMercy Health St. Rita's Medical CenterComment on above:Performed By: #### LIP, LACWB, IOCAL, PT, CDP, CHANDU, PTT, LIPR, CMPX ####[facility] [address] [place] [address] CT ABDOMEN PELVIS W IV CONTRASTon [id number] ABDOMEN PELVIS W IV CONTRAST EXAMINATION:CT OF THE ABDOMEN AND PELVIS WITH CONTRAST 11/03/2017 11:21 amTECHNIQUE:CT of the abdomen and pelvis was performed with the administration ofintravenous contrast. Multiplanar reformatted images are provided for review.Dose modulation, iterative reconstruction, and/or weight based adjustment ofthe mA/kV was utilized to reduce the radiation dose to as low as reasonablyachievable.COMPARISON:10/30/2017HISTORY:ORDERING SYSTEM PROVIDED HISTORY: necrotic pancreatitis seen on previous [facility], and worsening ileus on KUBTECHNOLOGIST PROVIDED HISTORY:FINDINGS:Cardiovascular: A therosclerosisLower Chest: Small left greater than right pleural effusions. Bibasilaratelectasis.OrgansLiver: Hepatic steatosis.Gallbladder: UnremarkableBiliary: UnremarkablePancreas: Notable air density is identified in the expected area of the bodyof the pancreas.Spleen: UnremarkableAdrenals: Unre markableKidneys: UnremarkablePelvisBladder: Partially distended.Reproductive: Unremarkable.GI/ Bowel: Wall thickening and [...] and anasarca.Interpreted by:VIRGIL Woodsigned by:Abhishek Cat MD11/03/inal resultNormalUniversity Hospitals Geneva Medical Center Calcium, Ionicon [id number] mass conc1.21 mmol/LNormal1.13-1.33[facility] Medical CenterComment on above:Performed By: #### LIP, LACWB, IOCAL, PT, CDP, CHANDU, PTT, LIPR, CMPX ####[address] [place] [id number] Comp Metabolic Pr/rfx MGon 11-03-2017(cont.)NormalUniversity Hospitals Geneva Medical CenterComment on above:Result Comment: Average GFR for 60-69 years old: 85 mL/min/1.73sq mChronic Kidney Disease: <60 mL/min/1.73sq mKidney failure: <15 mL/min/1.73sq meGFR calculated using average adult body mass. Ad ditional eGFR calculator available at:http://[email or web address]_crcl_2012.htmPerformed By: #### LIP, LACWB, IOCAL, PT, CDP, CHANDU, PTT, LIPR, CMPX ####[address] [place] [address] Albumin mass conc2.3 g/dLLow3.5-5.2[facility] CenterComment on above:Performed By: #### LIP, LACWB, IOCAL, PT, CDP, CHANDU, PTT, LIPR, CMPX ####[facility] [address] [place] [address] Albumin/Globulin mass ratio0.7 {ratio}Low1.0-2.5[facility] CenterComment on above:Performed By: #### LIP, LACWB, IOCAL, PT, CDP, CHANDU, PTT, LIPR, CMPX ####[place] [address] [place] [address] Alkaline Phos84 U/RUujahe75-501VhfozUniversity Hospitals Geneva Medical CenterComment on above:Performed By: #### LIP, LACWB, IOCAL, PT, CDP, CHANDU, PTT, LIPR, CMPX ####[place] [address] [place] [address] ALT enzyme act/vol44 U/LHigh5-33[facility] CenterComment on above: Performed By: #### LIP, LACWB, IOCAL, PT, CDP, CHANDU, PTT, LIPR, CMPX ####[address] [address] Anion gap 3 molar conc12 mmol/LNormal9-17[facility] CenterComment on above:Performed By: #### LIP, LACWB, IOCAL, PT, CDP, CHANDU, PTT, LIPR, CMPX ####[place] [address] [place] [address] AST enzyme act/vol43 U/LHigh<32[facility] CenterComment on above:Performed By: #### LIP, LACWB, IOCAL, PT, CDP, CHANDU, PTT, LIPR, CMPX ####[place] [address] [place] [address] Bilirubin Ql (U)0.51 mg/dLNormal0.3-1.2MKaiser San Leandro Medical CenterComment on above:Performed By: #### LIP, LACWB, IOCAL, PT, CDP, CHANDU, PTT, LIPR, CMPX ####[facility] [address] [place] [id number] Calcium mass conc8.3 mg/dLLow8.6-10.4[facility] CenterComment on above:Performed By: #### LIP, LACWB, IOCAL, PT, CDP, CHANDU, PTT, LIPR, CMPX ####[facility] [address] [place] [id number] Chloride molar viul876 mmol/HGbimht68-687GveoxUniversity Hospitals Geneva Medical CenterComment on above:Performed By: #### LIP, LACWB, IOCAL, PT, CDP, CHANDU, PTT, LIPR, CMPX ####[facility] [address] [place] [id number] HC9 molar conc 23 mmol/FFhqyat48-20BcabqUniversity Hospitals Geneva Medical CenterComment on above:Performed By: #### LIP, LACWB, IOCAL, PT, CDP, CHANDU, PTT, LIPR, CMPX ####[facility] [address] [place] [phone] mass conc0.90 mg/dLNormal0.50-0.90[facility] CenterComment on above:Performed By: #### LIP, LACWB, IOCAL, PT, CDP, CHANDU, PTT, LIPR, CMPX ####[facility] [address] [place] [phone], Amer>60 Normal>60[facility] CenterComment on above:Performed By: #### LIP, LACWB, IOCAL, PT, CDP, CHANDU, PTT, LIPR, CMPX ####[facility] [address] [place] [address] GFR,non Amer>60Normal>60[facility] Medical CenterComment on above:Performed By: #### LIP, LACWB, IOCAL, PT, CDP, CHANDU, PTT, LIPR, CMPX ####[facility] [address] [place] [address] Glucose mass hols728 mg/yTXuql70-20PqoqfKaiser San Leandro Medical CenterComment on above:Performed By: #### LIP, LACWB, IOCAL, PT, CDP, CHANDU, PTT, LIPR, CMPX ####[facility] [address] [place] [address] Potassium molar conc3.8 mmol/LNormal3.7-5.3MKaiser San Leandro Medical Center Comment on above:Performed By: #### LIP, LACWB, IOCAL, PT, CDP, CHANDU, PTT, LIPR, CMPX ####[facility] [address] [place] [address] Protein mass conc5.7 g/dLLow6.4-8.3MKaiser San Leandro Medical CenterComment on above: Performed By: #### LIP, LACWB, IOCAL, PT, CDP, CHANDU, PTT, LIPR, CMPX ####[facility] [address] [place] [address] Sodium molar ymat742 mmol/WXzwszv238-809RlzxiUniversity Hospitals Geneva Medical CenterComment on above:Performed By: #### LIP, LACWB, IOCAL, PT, CDP, CHANDU, PTT, LIPR, CMPX ####[facility] [address] [place] [address] Urea nitrogen mass conc 26 mg/dLHigh8-23[facility] CenterComment on above:Performed By: #### LIP, LACWB, IOCAL, PT, CDP, CHANDU, PTT, LIPR, CMPX ####[place] [address] BUN/CRE RatioNOT REPORTEDNormal9-20[facility] CenterComment on above:Performed By: #### LIP, LACWB, IOCAL, PT, CDP, CHANDU, PTT, LIPR, CMPX ####[facility] [address] [place] [address] Staging:NOT REPORTEDMercy Health St. [facility] Comment on above:Performed By: #### LIP, LACWB, IOCAL, PT, CDP, CHANDU, PTT, LIPR, CMPX ####[facility] [address] [place] [address] Cult,Urine,Cathon [id number],Urine,CathSpecimen Description .CATHETERIZED URINE Special Requests NOT REPORTED Culture NO GROWTH Report Status FINAL 11/02/2017[facility] Rita's Medical CenterComment on above:Performed By: #### LIP, LACWB, IOCAL, PT, CDP, CHANDU, PTT, LIPR, CMPX ####[email or web address] [address] [place] [address] Discharge Summaryon [id number] IP Note OR TranscriptionNormalMercy Pacific Alliance Medical CenterPlan of Careon [id number] IP Note OR TranscriptionNormalUniversity Hospitals Geneva Medical CenterHI IP Note OR TranscriptionNormPaulding County HospitalProgress Noteon [id number] IP Note OR TranscriptionNormalUniversity Hospitals Geneva Medical CenterHIM IP Note OR TranscriptionNormalUniversity Hospitals Geneva Medical CenterHIM IP Note OR TranscriptionNormalUniversity Hospitals Geneva Medical Center HIM IP Note OR TranscriptionNoLima City HospitalXR ABDOMEN (KUB) (SINGLE AP VIEW)on 24-04-0853YY ABDOMEN (KUB) (SINGLE AP VIEW) EXAMINATION:SINGLE SUPINE XRAY VIEW(S) OF THE ABDOMEN11/03/2017 8:42 amCOMPARISON:CT abdomen pelvis from 10/30/2017HISTORY:ORDERING SYSTEM PROVIDED HISTORY: reeval ileusTECHNOLOGIST PROVIDED HISTORY:reeval ectyj47-ucse-jni female; re-evaluate ileusFINDINGS:Portable supine view of the abdomen.Enteric tube traverses the GE junction with distal tip overlying the midmidline abdomen, likely within the body of the stomach. Blunting of the leftcostophrenic angle may represent chronic pleural thickeningversus smallleft-sided pleural effusion. Stable left basilar opacity, atelectasis,infiltrate, or mild scarring.shelter monitor leads overlie the abdomen. Mild diffuse [...] stoolburden. Gaseous distention of the colon. Consider furtherevaluation/re-evaluation with CT in order to better compare/re- evaluate theknown findings involving the pancreas and small bowel to the prior 10/30/2017exam.The findings were sent to the Radiology Results Communication [facility] at 9:17am on 11/03/2017to be communicated to a licensed caregiver.I nterpreted by:VIRGIL Gutierrezigned by:Braeden Chavez MD11/03/inal result NormalUniversity Hospitals Geneva Medical CenterAPTTon [id number] Coag time (Bld)27.1 zSteake07.5-30.5[facility] Medical CenterComment on above:Performed By: #### LIP, LACWB, IOCAL, PT, CDP, CHANDU, PTT, LIPR, CMPX ####[address] [place] [id number] Amylaseon [id number] enzyme act/ltf757 U/SUett76-568VuhkrUniversity Hospitals Geneva Medical CenterComment on above: Performed By: #### LIP, LACWB, IOCAL, PT, CDP, CHANDU, PTT, LIPR, CMPX ####[place], [place] [phone] with Diffon [id number]. Basophil0.00 k/uLNormal0.00-0.20[facility] Comment on above:Performed By: #### LIP, LACWB, IOCAL, PT, CDP, CHANDU, PTT, LIPR, CMPX ####[facility] [address] [place] [address] Abs.Imm.Granulocyte0.14 k/uLNormal0.00-0.30[facility] Comment on above:Performed By: #### LIP, LACWB, IOCAL, PT, CDP, CHANDU, PTT, LIPR, CMPX ####[place] [address] Abs.Neutrophil (Seg)11.01 k/uLHigh1.50-8.10[facility] Comment on above:Performed By: #### LIP, LACWB, IOCAL, PT, CDP, CHANDU, PTT, LIPR, CMPX ####[place] [address] Basophils/100 WBC Auto (Bld)0 %Normal0-2MercMercy Medical Center Merced Dominican CampusComment on above:Performed By: #### LIP, LACWB, IOCAL, PT, CDP, CHANDU, PTT, LIPR, CMPX ####[place] [address] Eosinophils Auto #/vol (Bld)0.00 10*3/uLNormal0.00-0.44[facility] Comment on above:Performed By: #### LIP, LACWB, IOCAL, PT, CDP, CHANDU, PTT, LIPR, CMPX ####[facility] [address] [place] [address] Eosinophils/100 WBC Auto (Bld)0 %Low1-4[facility] CenterComment on above:Performed By: #### LIP, LACWB, IOCAL, PT, CDP, CHANDU, PTT, LIPR, CMPX ####[facility] [address] [place] [address] Immature granulocytes #/vol (Bld)1 %Hqab2WydiqUniversity Hospitals Geneva Medical CenterComment on above:Performed By: #### LIP, LACWB, IOCAL, PT, CDP, CHANDU, PTT, LIPR, CMPX ####[facility] [address] [place] [address] Lymphocytes Auto #/vol (Bld)1.09 10*3/uLLow1.10-3.70[facility] CenterComment on above:Performed By: #### LIP, LACWB, IOCAL, PT, CDP, CHANDU, PTT, LIPR, CMPX ####[facility] [address] [place] [address] Lymphocytes/100 WBC Auto (Bld)8 %Zqm32-85CuwlcUniversity Hospitals Geneva Medical CenterComment on above:Performed By: #### LIP, LACWB, IOCAL, PT, CDP, CHANDU, PTT, LIPR, CMPX ####[facility] [address] [place] [address] Monocytes Auto #/vol (Bld)1.36 10*3/uLHigh0.10-1.20[facility] CenterComment on above:Performed By: #### LIP, LACWB, IOCAL, PT, CDP, CHANDU, PTT, LIPR, CMPX ####[facility] [address] [place] [address] Monocytes/100 WBC Auto (Bld)10 %Normal3-12[facility] CenterComment on above: Performed By: #### LIP, LACWB, IOCAL, PT, CDP, CHANDU, PTT, LIPR, CMPX ####[facility] [address] [place] [address] Morphology Interp Víctor (Bld)ANISOCYTOSIS PRESENTNormalUniversity Hospitals Geneva Medical CenterComment on above: Result Comment: TOXIC GRANULATION PRESENTPerformed By: #### LIP, LACWB, IOCAL, PT, CDP, CHANDU, PTT, LIPR, CMPX ####[facility] [address] [place], [place] [address] Neutrophil (Seg)81 %Gmsj32-07DhfjcUniversity Hospitals Geneva Medical Center Comment on above:Performed By: #### LIP, LACWB, IOCAL, PT, CDP, CHANDU, PTT, LIPR, CMPX ####[place] [address] NRBC Automated0.0 per 100 WBCNormal0.0[facility] Geneva Medical CenterComment on above:Performed By: #### LIP, LACWB, IOCAL, PT, CDP, CHANDU, PTT, LIPR, CMPX ####[place] [address] Platelet mean volume Auto Entitic volume (Bld)11.5 fLNormal8.1-13.5[facility] Medical CenterComment on above:Performed By: #### LIP, LACWB, IOCAL, PT, CDP, CHANDU, PTT, LIPR, CMPX ####[place] [address] Platelets Auto #/vol (Bld)231 10*3/hPJlqmpt020-556NqzbdUniversity Hospitals Geneva Medical CenterComment on above:Performed By: #### LIP, LACWB, IOCAL, PT, CDP, CHANDU, PTT, LIPR, CMPX ####[place] [address] WBC Auto #/vol (Bld)13.6 10*3/uLHigh3.5-11.3MKaiser San Leandro Medical CenterComment on above:Performed By: #### LIP, LACWB, IOCAL, PT, CDP, CHANDU, PTT, LIPR, CMPX ####[place], [place] [phone] distribution width Auto Ratio (RBC)14.8 %High11.8-14.4[facility] Geneva Medical CenterComment on above:Performed By: #### LIP, LACWB, IOCAL, PT, CDP, CHANDU, PTT, LIPR, CMPX ####[place] [address] Hematocrit Auto Volume Fraction (Bld)34.5 %Low36.3-47.1MKaiser San Leandro Medical CenterComment on above:Performed By: #### LIP, LACWB, IOCAL, PT, CDP, CHANDU, PTT, LIPR, CMPX ####[place] [address] Hemoglobin mass conc (Bld)10.3 g/dLLow11.9-15.1MKaiser San Leandro Medical Center Comment on above:Performed By: #### LIP, LACWB, IOCAL, PT, CDP, CHANDU, PTT, LIPR, CMPX ####[place] [address] MCH Auto Entitic mass (RBC)26.3 gpFrqryk41.2-33.5[facility] CenterComment on above:Performed By: #### LIP, LACWB, IOCAL, PT, CDP, CHANDU, PTT, LIPR, CMPX ####[place] [address] MCHC Auto mass conc (RBC)29.9 g/vURntjwp01.4-34.8[facility] CenterComment on above:Performed By: #### LIP, LACWB, IOCAL, PT, CDP, CHANDU, PTT, LIPR, CMPX ####[facility] [address] [place] [address] MCV Auto Entitic volume (RBC)88.0 kVEitalz17.6-102.9[facility] Comment on above:Performed By: #### LIP, LACWB, IOCAL, PT, CDP, CHANDU, PTT, LIPR, CMPX ####[place] [address] RBC Auto #/vol (Bld)3.92 10*6/uLLow3.95-5.11[facility] Medical CenterComment on above:Performed By: #### LIP, LACWB, IOCAL, PT, CDP, CHANDU, PTT, LIPR, CMPX ####[place] [address] Auto Diff PerformedNOT REPORTEDMercy Health St. Rita's Medical CenterComment on above: Performed By: #### LIP, LACWB, IOCAL, PT, CDP, CHANDU, PTT, LIPR, CMPX ####[place] [address] Platelets Auto #/vol (Bld)NOT REPORTEDMercy Health St. Rita's Medical CenterComment on above: Performed By: #### LIP, LACWB, IOCAL, PT, CDP, CHANDU, PTT, LIPR, CMPX ####[facility] [address] [place] [address] RBC morphology finding Nom (Bld)NOT REPORTEDMercy Health St. Rita's Medical CenterComment on above: Performed By: #### LIP, LACWB, IOCAL, PT, CDP, CHANDU, PTT, LIPR, CMPX ####[address] [address] WBC MorphologyNOT REPORTEDMercy Health St. Rita's Medical CenterComment on above:Performed By: #### LIP, LACWB, IOCAL, PT, CDP, CHANDU, PTT, LIPR, CMPX ####[place] [address] Abs. Basophil0.00 k/uLNormal0.0-0.2MKaiser San Leandro Medical CenterComment on above:Performed By: #### LIP, LACWB, IOCAL, PT, CDP, CHANDU, PTT, LIPR, CMPX ####[place] [address] Abs.Imm.Granulocyte0.12 k/uLNormal0.00-0.30[facility] CenterComment on above:Performed By: #### LIP, LACWB, IOCAL, PT, CDP, CHANDU, PTT, LIPR, CMPX ####[place] [address] Abs.Neutrophil (Seg)9.24 k/uLHigh1.8-7.7[facility] CenterComment on above:Performed By: #### LIP, LACWB, IOCAL, PT, CDP, CHANDU, PTT, LIPR, CMPX ####[place] [address] Basophils/100 WBC Auto (Bld)0 %Normal0-2MKaiser San Leandro Medical CenterComment on above:Performed By: #### LIP, LACWB, IOCAL, PT, CDP, CHANDU, PTT, LIPR, CMPX ####[place] [address] Eosinophils Auto #/vol (Bld)0.00 10*3/uLNormal0.0-0.4[facility] CenterComment on above:Performed By: #### LIP, LACWB, IOCAL, PT, CDP, CHANDU, PTT, LIPR, CMPX ####[facility] [address] [place] [address] Eosinophils/100 WBC Auto (Bld)0 %Low1-4[facility] Medical CenterComment on above:Performed By: #### LIP, LACWB, IOCAL, PT, CDP, CHANDU, PTT, LIPR, CMPX ####[address] [address] Immature granulocytes #/vol (Bld)1 %Edao0YncyxUniversity Hospitals Geneva Medical CenterComment on above:Performed By: #### LIP, LACWB, IOCAL, PT, CDP, CHANDU, PTT, LIPR, CMPX ####[place] [address] Lymphocytes Auto #/vol (Bld)1.05 10*3/uLNormal1.0-4.8[facility] CenterComment on above:Performed By: #### LIP, LACWB, IOCAL, PT, CDP, CHANDU, PTT, LIPR, CMPX ####[address] [address] Lymphocytes/100 WBC Auto (Bld)9 %Huf54-42XkvwqUniversity Hospitals Geneva Medical CenterComment on above:Performed By: #### LIP, LACWB, IOCAL, PT, CDP, CHANDU, PTT, LIPR, CMPX ####[address] [address] Monocytes Auto #/vol (Bld)1.29 10*3/uLHigh0.1-0.8[facility] CenterComment on above:Performed By: #### LIP, LACWB, IOCAL, PT, CDP, CHANDU, PTT, LIPR, CMPX ####[address] [address] Monocytes/100 WBC Auto (Bld)11 %High1-7[facility] CenterComment on above:Performed By: #### LIP, LACWB, IOCAL, PT, CDP, CHANDU, PTT, LIPR, CMPX ####[place] [address] Morphology Interp Víctor (Bld)ANISOCYTOSIS PRESENTNormalUniversity Hospitals Geneva Medical CenterComment on above:Performed By: #### LIP, LACWB, IOCAL, PT, CDP, CHANDU, PTT, LIPR, CMPX ####[place] [address] Neutrophil (Seg)79 %Lnvc20-69KullfUniversity Hospitals Geneva Medical Center Comment on above:Performed By: #### LIP, LACWB, IOCAL, PT, CDP, CHANDU, PTT, LIPR, CMPX ####[place] [address] NRBC Automated0.0 per 100 WBCNormal0.0[facility] CenterComment on above:Performed By: #### LIP, LACWB, IOCAL, PT, CDP, CHANDU, PTT, LIPR, CMPX ####[place] [address] Platelet mean volume Auto Entitic volume (Bld)11.8 fLNormal8.1-13.5[facility] CenterComment on above:Performed By: #### LIP, LACWB, IOCAL, PT, CDP, CHANDU, PTT, LIPR, CMPX ####[place] [address] Platelets Auto #/vol (Bld)201 10*3/kTCyyrsf140-816GqgjfUniversity Hospitals Geneva Medical CenterComment on above:Performed By: #### LIP, LACWB, IOCAL, PT, CDP, CHANDU, PTT, LIPR, CMPX ####[place] [address] WBC Auto #/vol (Bld)11.7 10*3/uLHigh3.5-11.3MKaiser San Leandro Medical CenterComment on above:Performed By: #### LIP, LACWB, IOCAL, PT, CDP, CHANDU, PTT, LIPR, CMPX ####[place], [place] [phone] distribution width Auto Ratio (RBC)14.7 %High11.8-14.4[facility] CenterComment on above:Performed By: #### LIP, LACWB, IOCAL, PT, CDP, CHANDU, PTT, LIPR, CMPX ####[place] [address] Hematocrit Auto Volume Fraction (Bld)33.3 %Low36.3-47.1MKaiser San Leandro Medical CenterComment on above:Performed By: #### LIP, LACWB, IOCAL, PT, CDP, CHANDU, PTT, LIPR, CMPX ####[place] [address] Hemoglobin mass conc (Bld)10.3 g/dLLow11.9-15.1MKaiser San Leandro Medical Center Comment on above:Performed By: #### LIP, LACWB, IOCAL, PT, CDP, CHANDU, PTT, LIPR, CMPX ####[place], [place] [address])[phone] Auto Entitic mass (RBC)27.0 ykTinpzb10.2-33.5[facility] CenterComment on above:Performed By: #### LIP, LACWB, IOCAL, PT, CDP, CHANDU, PTT, LIPR, CMPX ####[place] [address] MCHC Auto mass conc (RBC)30.9 g/iBVsfeoj21.4-34.8[facility] CenterComment on above:Performed By: #### LIP, LACWB, IOCAL, PT, CDP, CHANDU, PTT, LIPR, CMPX ####[facility] [address]yl[address] [place] [address] MCV Auto Entitic volume (RBC)87.4 iPBvwnwf81.6-102.9[facility] Comment on above:Performed By: #### LIP, LACWB, IOCAL, PT, CDP, CHANDU, PTT, LIPR, CMPX ####[place] [address] RBC Auto #/vol (Bld)3.81 10*6/uLLow3.95-5.11[facility] CenterComment on above:Performed By: #### LIP, LACWB, IOCAL, PT, CDP, CHANDU, PTT, LIPR, CMPX ####[place] [address] Auto Diff PerformedNOT REPORTEDMercy Health St. Rita's Medical CenterComment on above: Performed By: #### LIP, LACWB, IOCAL, PT, CDP, CHANDU, PTT, LIPR, CMPX ####[place] [address] Platelets Auto #/vol (Bld)NOT REPORTEDMercy Health St. Rita's Medical CenterComment on above: Performed By: #### LIP, LACWB, IOCAL, PT, CDP, CHANDU, PTT, LIPR, CMPX ####[facility] [address] [place] [address] RBC morphology finding Nom (Bld)NOT REPORTEDMercy Health St. Rita's Medical CenterComment on above: Performed By: #### LIP, LACWB, IOCAL, PT, CDP, CHANDU, PTT, LIPR, CMPX ####[facility] [address] [place] [address] WBC MorphologyNOT REPORTEDMercy Health St. Rita's Medical CenterComment on above:Performed By: #### LIP, LACWB, IOCAL, PT, CDP, CHANDU, PTT, LIPR, CMPX ####[facility] [address]ucmys[address] [place] [address] Calcium, Ionicon 65-99-4211Lzepwew mass conc1.08 mmol/LLow1.13-1.33[facility] CenterComment on above: Performed By: #### LIP, LACWB, IOCAL, PT, CDP, CHANDU, PTT, LIPR, CMPX ####[facility] [address] [place] [id number] Comp Metabolic Pr/rfx MG on 11-02-2017(cont.)NormalUniversity Hospitals Geneva Medical CenterComment on above: Result Comment: Average GFR for 60-69 years old: 85 mL/min/1.73sq mChronic Kidney Disease: <60 mL/min/1.73sq mKidney failure: <15 mL/min/1.73sq meGFR calculated using average adult body mass. Additional eGFR calculator available at:http://www.Zaarly/multiple_crcl_2012.htmPerformed By: #### LIP, LACWB, IOCAL, PT, CDP, CHANDU, PTT, LIPR, CMPX ####[facility] [address] [place] [address] Albumin mass conc2.5 g/dLLow3.5-5.2MKaiser San Leandro Medical CenterComment on above:Performed By: #### LIP, LACWB, IOCAL, PT, CDP, CHANDU, PTT, LIPR, CMPX ####[facility] [address]weoxr[address] [place] [address] Albumin/Globulin mass ratio0.7 {ratio}Low1.0-2.5[facility] CenterComment on above:Performed By: #### LIP, LACWB, IOCAL, PT, CDP, CHANDU, PTT, LIPR, CMPX ####[facility] [address] [place] [address] Alkaline Phos74 U/OSwxzuw72-095PfoguUniversity Hospitals Geneva Medical CenterComment on above:Performed By: #### LIP, LACWB, IOCAL, PT, CDP, CHANDU, PTT, LIPR, CMPX ####[facility] [address]ecfvjv[address] [place] [address] ALT enzyme act/vol63 U/LHigh5-33[facility] CenterComment on above: Performed By: #### LIP, LACWB, IOCAL, PT, CDP, CHANDU, PTT, LIPR, CMPX ####[facility] [address] [place] [address] Anion gap 3 molar conc14 mmol/LNormal9-17[facility] CenterComment on above:Performed By: #### LIP, LACWB, IOCAL, PT, CDP, CHANDU, PTT, LIPR, CMPX ####[facility] [address] [place] [address] AST enzyme act/vol33 U/LHigh<32[facility] CenterComment on above:Performed By: #### LIP, LACWB, IOCAL, PT, CDP, CHANDU, PTT, LIPR, CMPX ####[facility] [address] [place] [address] Bilirubin Ql (U)0.80 mg/dLNormal0.3-1.2MKaiser San Leandro Medical CenterComment on above:Performed By: #### LIP, LACWB, IOCAL, PT, CDP, CHANDU, PTT, LIPR, CMPX ####[facility] [address]uzcmrjmxt[address] [place] [address] Calcium mass conc8.1 mg/dLLow8.6-10.4[facility] CenterComment on above:Performed By: #### LIP, LACWB, IOCAL, PT, CDP, CHANDU, PTT, LIPR, CMPX ####[facility] [address] [place] [address] Chloride molar mpmu953 mmol/XVavskl74-449CrtejKaiser San Leandro Medical CenterComment on above:Performed By: #### LIP, LACWB, IOCAL, PT, CDP, CHANDU, PTT, LIPR, CMPX ####[facility] [address] [place] [address] TT5 molar conc 22 mmol/CCxhhzh45-38XzavgUniversity Hospitals Geneva Medical CenterComment on above:Performed By: #### LIP, LACWB, IOCAL, PT, CDP, CHANDU, PTT, LIPR, CMPX ####[facility] [address] [place] [address] Creatinine mass conc0.85 mg/dLNormal0.50-0.90[facility] CenterComment on above:Performed By: #### LIP, LACWB, IOCAL, PT, CDP, CHANDU, PTT, LIPR, CMPX ####[place] [address] GFR, Amer>60 Normal>60MerKaiser San Leandro Medical CenterComment on above:Performed By: #### LIP, LACWB, IOCAL, PT, CDP, CHANDU, PTT, LIPR, CMPX ####[place] [address] GFR,non Amer>60Normal>60MerKaiser San Leandro Medical CenterComment on above:Performed By: #### LIP, LACWB, IOCAL, PT, CDP, CHANDU, PTT, LIPR, CMPX ####[facility] [address] [place] [address] Glucose mass ahze596 mg/gOEyzq77-82Aukbe [facility] CenterComment on above:Performed By: #### LIP, LACWB, IOCAL, PT, CDP, CHANDU, PTT, LIPR, CMPX ####[address] [address] Potassium molar conc3.8 mmol/LNormal3.7-5.3MercAdventHealth Lake PlacidCambridge City Medical Center Comment on above:Performed By: #### LIP, LACWB, IOCAL, PT, CDP, CHANDU, PTT, LIPR, CMPX ####[facility] [address]nqxecply6487 [place] [address] Protein mass conc5.9 g/dLLow6.4-8.3MKaiser San Leandro Medical CenterComment on above: Performed By: #### LIP, LACWB, IOCAL, PT, CDP, CHANDU, PTT, LIPR, CMPX ####[facility] [address]ofqt[address] [place] [address] Sodium molar kzui741 mmol/TRcsfce372-698MoflnUniversity Hospitals Geneva Medical CenterComment on above:Performed By: #### LIP, LACWB, IOCAL, PT, CDP, CHANDU, PTT, LIPR, CMPX ####[place] [address] Urea nitrogen mass conc 17 mg/dLNormal8-23[facility] CenterComment on above:Performed By: #### LIP, LACWB, IOCAL, PT, CDP, CHANDU, PTT, LIPR, CMPX ####[facility] [address] [place] [address] BUN/CRE RatioNOT REPORTEDNormal9-20[facility] CenterComment on above:Performed By: #### LIP, LACWB, IOCAL, PT, CDP, CHANDU, PTT, LIPR, CMPX ####[facility] [address]kkaee[address] [place], [place] [phone]:NOT REPORTEDNormalUniversity Hospitals Geneva Medical Center Comment on above:Performed By: #### LIP, LACWB, IOCAL, PT, CDP, CHANDU, PTT, LIPR, CMPX ####[facility] [address]bvuzc[address] [place] [id number] (cont.) NormalUniversity Hospitals Geneva Medical CenterComment on above:Result Comment: Average GFR for 60-69 years old: 85 mL/min/1.73sq mChronic Kidney Disease: <60 mL /min/1.73sq mKidney failure: <15 mL/min/1.73sq meGFR calculated using average adult body mass. Additional eGFR calculator available at:http://www.Zaarly/multiple_crcl_2012.htmPerformed By: #### LIP, LACWB, IOCAL, PT, CDP, CHANDU, PTT, LIPR, CMPX ####[facility] [address] [place] [id number] Albumin mass conc2.4 g/dLLow3.5-5.2MKaiser San Leandro Medical CenterComment on above:Performed By: #### LIP, LACWB, IOCAL, PT, CDP, CHANDU, PTT, LIPR, CMPX ####[place] [address] Albumin/Globulin mass ratio0.7 {ratio}Low1.0-2.5[facility] CenterComment on above:Performed By: #### LIP, LACWB, IOCAL, PT, CDP, CHANDU, PTT, LIPR, CMPX ####[place] [address] Alkaline Phos73 U/PJhkkkk37-794ZueslUniversity Hospitals Geneva Medical CenterComment on above:Performed By: #### LIP, LACWB, IOCAL, PT, CDP, CHANDU, PTT, LIPR, CMPX ####[address] [place] [id number] ALT enzyme act/vol71 U/LHigh5-33[facility] CenterComment on above: Performed By: #### LIP, LACWB, IOCAL, PT, CDP, CHANDU, PTT, LIPR, CMPX ####[place] [address] Anion gap 3 molar conc9 mmol/LNormal9-17[facility] CenterComment on above:Performed By: #### LIP, LACWB, IOCAL, PT, CDP, CHANDU, PTT, LIPR, CMPX ####[facility] [address] [place] [address] AST enzyme act/vol34 U/LHigh<32[facility] CenterComment on above:Performed By: #### LIP, LACWB, IOCAL, PT, CDP, CHANDU, PTT, LIPR, CMPX ####[facility] [address] [place] [address] Bilirubin Ql (U)0.87 mg/dLNormal0.3-1.2MKaiser San Leandro Medical CenterComment on above:Performed By: #### LIP, LACWB, IOCAL, PT, CDP, CHANDU, PTT, LIPR, CMPX ####[address] [address] Calcium mass conc7.8 mg/dLLow8.6-10.4[facility] CenterComment on above:Performed By: #### LIP, LACWB, IOCAL, PT, CDP, CHANDU, PTT, LIPR, CMPX ####[place] [address] Chloride molar rzhl917 mmol/WNeps51-276MvfvkUniversity Hospitals Geneva Medical CenterComment on above:Performed By: #### LIP, LACWB, IOCAL, PT, CDP, CHANDU, PTT, LIPR, CMPX ####[facility] [address] [place] [address] VK4 molar conc 22 mmol/CQpnpgw70-19SoawcUniversity Hospitals Geneva Medical CenterComment on above:Performed By: #### LIP, LACWB, IOCAL, PT, CDP, CHANDU, PTT, LIPR, CMPX ####[address] [address] Creatinine mass conc0.77 mg/dLNormal0.50-0.90MerKaiser San Leandro Medical CenterComment on above:Performed By: #### LIP, LACWB, IOCAL, PT, CDP, CHANDU, PTT, LIPR, CMPX ####[facility] [address] [place] [address] GFR, Amer>60 Normal>60MerKaiser San Leandro Medical CenterComment on above:Performed By: #### LIP, LACWB, IOCAL, PT, CDP, CHANDU, PTT, LIPR, CMPX ####[facility] [address]sfkcgte[address] [place] [address] GFR,non Amer>60Normal>60[facility] CenterComment on above:Performed By: #### LIP, LACWB, IOCAL, PT, CDP, CHANDU, PTT, LIPR, CMPX ####[facility] [address] [place] [address] Glucose mass vccu731 mg/nXUnzl24-42Hntie [facility] CenterComment on above:Performed By: #### LIP, LACWB, IOCAL, PT, CDP, CHANDU, PTT, LIPR, CMPX ####[address] [place] [address] Potassium molar conc3.7 mmol/LNormal3.7-5.3[facility] Comment on above:Performed By: #### LIP, LACWB, IOCAL, PT, CDP, CHANDU, PTT, LIPR, CMPX ####[facility] [address]zqkwxdadw5073 [place] [address] Protein mass conc5.7 g/dLLow6.4-8.3[facility] Medical CenterComment on above: Performed By: #### LIP, LACWB, IOCAL, PT, CDP, CHANDU, PTT, LIPR, CMPX ####[facility] [address] [place] [address] Sodium molar zcek995 mmol/ZFmzfmj896-945Tspyp [facility] Medical CenterComment on above:Performed By: #### LIP, LACWB, IOCAL, PT, CDP, CHANDU, PTT, LIPR, CMPX ####[facility] [address] [place] [id number] Urea nitrogen mass conc 14 mg/dLNormal8-23[facility] CenterComment on above:Performed By: #### LIP, LACWB, IOCAL, PT, CDP, CHANDU, PTT, LIPR, CMPX ####[facility] [address] [place] [id number] BUN/CRE RatioNOT REPORTEDMercy Hospital St. Louisal9-20[facility] CenterComment on above:Performed By: #### LIP, LACWB, IOCAL, PT, CDP, CHANDU, PTT, LIPR, CMPX ####[facility] [address] [place] [id number] Staging:NOT REPORTEDMercy Health St. [facility]'s Medical [facility] Comment on above:Performed By: #### LIP, LACWB, IOCAL, PT, CDP, CHANDU, PTT, LIPR, CMPX ####[facility] [address]pboatjj[address] [place] [id number] Consulton [id number] IP Note OR TranscriptionMercy Health St. [facility]'s Medical Center Hgb/Hcton 33-44-2565Zexpbcckpq Auto Volume Fraction (Bld)35.4 %Low36.3-47.1MKaiser San Leandro Medical CenterComment on above:Performed By: #### LIP, LACWB, IOCAL, PT, CDP, CHANDU, PTT, LIPR, CMPX ####[facility] [address] [place] [id number] Hemoglobin mass conc (Bld)10.6 g/dLLow11.9-15.1MKaiser San Leandro Medical CenterComment on above:Performed By: #### LIP, LACWB, IOCAL, PT, CDP, CHANDU, PTT, LIPR, CMPX ####[facility] [address]fsrujz[address] [place] [address] Hematocrit Auto Volume Fraction (Bld)34.1 %Low36.3-47.1MKaiser San Leandro Medical CenterComment on above:Performed By: #### LIP, LACWB, IOCAL, PT, CDP, CHANDU, PTT, LIPR, CMPX ####[facility] [address]zjpfam[address] [place] [address] Hemoglobin mass conc (Bld)10.4 g/dLLow11.9-15.1MKaiser San Leandro Medical CenterComment on above:Performed By: #### LIP, LACWB, IOCAL, PT, CDP, CHANDU, PTT, LIPR, CMPX ####[facility] [address] [place] [address] Lactic Acid,Whole Blon 24-01-4042Zdihaf Acid,Whole Bl1.1 mmol/LNormal0.7-2.1MKaiser San Leandro Medical CenterComment on above:Performed By: #### LIP, LACWB, IOCAL, PT, CDP, CHANDU, PTT, LIPR, CMPX ####[address] [place] [address] Lipaseon 11-02-2017 Lipase enzyme act/vol54 U/MQpgskc61-14AwawlUniversity Hospitals Geneva Medical CenterComment on above:Performed By: #### LIP, LACWB, IOCAL, PT, CDP, CHANDU, PTT, LIPR, CMPX ####[facility] [address] [place] [address] Lipid Profile on 87-27-4495Eirwkxtxhvj in HDL mass conc16 mg/dLLow>40[facility] CenterComment on above:Result Comment: HDL Guidelines: <40 Undesirable 40-59 Borderline >59 DesirablePerformed By: #### LIP, LACWB, IOCAL, PT, CDP, CHANDU, PTT, LIPR, CMPX ####[facility] [address]yl[address] [place] [address] Cholesterol in LDL mass conc55 mg/dLNormal0-130[facility] Comment on above:Result Comment: LDL Guidelines: <100 Desirable 100-129 Near to/above Desirable 130-159 Borderline >159 UndesirableDirect (measured) LDL and calculated LDL are not interchangeable tests.Performed By: #### LIP, LACWB, IOCAL, PT, CDP, CHANDU, PTT, LIPR, CMPX ####[facility] [address]ooltlhhi[address] [place] [address] Cholesterol mass conc96 mg/dLNormal<200[facility] CenterComment on above:Result Comment: Cholesterol Guidelines: <200 Desirable 200-240 Borderline >240 UndesirablePerformed By: #### LIP, LACWB, IOCAL, PT, CDP, CHANDU, PTT, LIPR, CMPX ####[facility] [id number] [place] [id number]([facility])[phone].total/Cholesterol in HDL mass ratio 6.0 {ratio}High<5[facility] CenterComment on above:Performed By: #### LIP, LACWB, IOCAL, PT, CDP, CHANDU, PTT, LIPR, CMPX ####[facility] [id number] [place] [address]([facility])[phone] mass lsio356 mg/dLNormal<150 [facility] CenterComment on above:Result Comment: Triglyceride Guidelines: <150 Desirable 150-199 Borderline 200-499 High >499 Very high Based on AHA Guidelines for fasting triglyceride, November 2011.Performed By: #### LIP, LACWB, IOCAL, PT, CDP, CHANDU, PTT, LIPR, CMPX ####[facility] [id number] [place] [id number]([facility])[phone] in VLDL mass concNOT REPORTEDNormal 1-30[facility] CenterComment on above:Performed By: #### LIP, LACWB, IOCAL, PT, CDP, CHANDU, PTT, LIPR, CMPX ####[address] [address] MRSA, DNA, Nasalon [id number], DNA, Nasal NEGATIVE: MRSA DNA not detected by nucleic acid amplification.WatkinsNMRSAAUniversity Hospitals Geneva Medical CenterComment on above:Result Comment: Results should be used as an adjunct to nosocomial control efforts to identify patients needing enhanced precautions.The test is not intended to identify patients with staphylococcal infections. Results should not be used to guide or monitor treatment for MRSA infections.Performed By: #### LIP, LACWB, IOCAL, PT, CDP, CHANDU, PTT, LIPR, CMPX ####[place] [address] Magnesiumon [id number] mass conc2.2 mg/dLNormal 1.6-2.6[facility] CenterComment on above:Performed By: #### LIP, LACWB, IOCAL, PT, CDP, CHANDU, PTT, LIPR, CMPX ####[address] [address] PTon [id number] Coag RelTime (PPP)1.0 {INR} [facility] CenterComment on above:Result Comment: Therapeutic Range: Moderate Anticoagulant Intensity: INR = 2.0-3.0 High Anticoagulant Intensity: INR = 2.5-3.5Performed By: #### LIP, LACWB, IOCAL, PT, CDP, CHANDU, PTT, LIPR, CMPX ####[address] [address] Prothrombin time (PT) Coag time (PPP)10.5 sNormal9.0-12.0[facility]als Geneva Medical CenterComment on above:Performed By: #### LIP, LACWB, IOCAL, PT, CDP, CHANDU, PTT, LIPR, CMPX ####[address] [address] Plan of Careon [id number] IP Note OR TranscriptionNormal [facility] CenterHIM IP Note OR TranscriptionNormalUniversity Hospitals Geneva Medical CenterProgress Noteon [id number] IP Note OR Electric Locomotive Firer/Fireman NormalMerKaiser San Leandro Medical CenterHIM IP Note OR TranscriptionNormalMerKaiser San Leandro Medical CenterHIM IP Note OR TranscriptionNormalUniversity Hospitals Geneva Medical CenterHIM IP Note OR TranscriptionNormalUniversity Hospitals Geneva Medical Center HIM IP Note OR TranscriptionNormalUniversity Hospitals Geneva Medical CenterXR ABDOMEN (KUB) (SINGLE AP VIEW)on [id number] ABDOMEN (KUB) (SINGLE AP VIEW) EXAMINATION:SINGLE SUPINE XRAY VIEW(S) OF THE ABDOMEN11/02/2017 4:47 pmCOMPARISON:Radiographs from 11/01/2017HISTORY:ORDERING SYSTEM PROVIDED HISTORY: abd distentionTECHNOLOGIST PROVIDED HISTORY:Bedside pleaseabd distentionFINDINGS:Enteric tube passes beneath the diaphragm. Diffuse bowel distention ispresent. Maximum diameter of small bowel measures 4.7 cm. Overall, boweldistention appears slightly worsened since prior study. Distal gas ispresent. Findings favor severe ileus. No pneumatosis. No portal venous gasradiographically.IMPRESSION: Worsening bowel distention diffusely with distal air present. Findings favorsevere ileus.Interpreted by:VIRGIL Beckfordigned by:Moses Tyson MD11/02/inal resultNoLima City Hospital Consulton [id number] IP Note OR TranscriptionNormalUniversity Hospitals Geneva Medical CenterHistory and Physicalon [id number] IP Note OR TranscriptionNormPaulding County HospitalMRSA, DNA, Nasalon 71-08-1142Jrsfzcnq Description .NASAL SWABMercy Health St. Rita's Medical CenterComment on above:Performed By: #### LIP, LACWB, IOCAL, PT, CDP, CHANDU, PTT, LIPR, CMPX ####[id number] [place] [address] XR ABDOMEN (KUB) (SINGLE AP VIEW)on 95-90-9873OL ABDOMEN (KUB) (SINGLE AP VIEW)EXAMINATION:SINGLE SUPINE XRAY VIEW(S) OF THE ABDOMEN11/01/2017 7:46 pmCOMPARISON:None.HISTORY:ORDERING SYSTEM PROVIDED HISTORY: ileusTECHNOLOGIST PROVIDED HISTORY:ileusFINDINGS:There is mild diffuse gas distention of small and large bowel loops. Novisualized pneumatosis. Assessment for free air is limited on the supineviews. No acute osseous abnormality identified.IMPRESSION: Mild diffuse gas distention of small and large bowel loops, most likelyrelated to clinically suspected ileus.Interpreted by:Olena Alexander, DOSigned by:Olena Alexander, DO11/01/17inal resultNormalMercy Pacific Alliance Medical Center Vital Signs Date TimeVital SignValuePerforming PhsijjqvfXnmcrdst42-29-9473 15:33-0400Body ouatpf025.02 cmDrake Shaw MD Work Phone: [phone]09-23-2025 15:33-0400 Body mass index (BMI) [Ratio]36.3 kg/i2AjciaDrake Shaw MD Work Phone: [phone]09-23-2025 15:33-0400 Body lbfkge53.1 kgDrake Shaw MD Work Phone: [phone])[address]09-23-2025 15:33-0400 Diastolic blood gshklunt51 mm[Hg]Drake Shaw MD Work Phone: [phone])722[address]09-23-2025 15:33-0400 Heart rate80 /Remy Shaw MD Work Phone: [phone]09-23-2025 15:33-0400 Respiratory rate18 /Remy Shaw MD Work Phone: [phone])[address]09-23-2025 15:33-0400 SaO2% (BldA) [Mass fraction]97 %Drake Shaw MD Work Phone: [phone]09-23-2025 15:33-0400 Systolic blood ypxmtmqj842 mm[Hg]Drake Shaw MD Work Phone: [facility]09-08-2025 15:06-0400 Body phjhdu194.4 cmDrake Shaw MD Work Phone: [facility]09-08-2025 15:06-0400Body mass index (BMI) [Ratio]36.07 kg/d1UpfnhDrake Shaw MD Work Phone: [facility]09-08-2025 15:06-0400Body cwxykc85.63 kgDrake Shaw MD Work Phone: [facility]09-08-2025 15:06-0400Diastolic blood mm[Hg]Drake Shaw MD Work Phone: [facility]09-08-2025 15:06-0400Heart rate 88 /Remy Shaw MD Work Phone: [facility]09-08-2025 15:06-0400 Respiratory rate18 /Remy Shaw MD Work Phone: [facility]09-08-2025 15:06-3585QpP1% (BldA) [Mass fraction]96 %Drake Shaw MD Work Phone: [facility]09-08-2025 15:06-0400Systolic blood qbiyeiiq949 mm[Hg]Drake Shaw MD Work Phone: [facility]03-03-2025 15:07-0500Diastolic blood jztqucva64 mm[Hg][facility]03-03-2025 15:07-0500 Systolic blood omefteyf574 mm[Hg][facility]03-03-2025 15:03-0500Body gkhlys259.02 cm[facility]03-03-2025 15:03-0500Body mass index (BMI) [Ratio]36.1 kg/o5EfucyimewMagruder Memorial Hospital03-03-2025 15:03-0500Body mobkhl85.7 [facility] 04-14-2024 15:03-0500Heart rate81 /[facility] 04-14-2024 15:03-0500Respiratory rate18 /[facility] 04-14-2024 15:03-4632ApY1% (BldA) [Mass fraction]95 %[facility]03-04-2024 13:20-0500Body mass index (BMI) [Ratio]35.05 kg/a5CpupvSamia Landeros MD Work Phone: [facility]03-04-2024 13:20-0500Body emlhalgjdmh27.81 [degF]Samia Landeros MD Work Phone: [facility] Vilynx Pcsscg89-13-4598 13:20-0500Body euwsie54.17 kgSamia Landeros MD Work Phone: [facility] [employer] Hxbvas49-50-3689 13:20-0500Diastolic blood ebhdsjsj74 mm[Hg]Samia Landeros MD Work Phone: [facility] [employer] Npaqnw46-89-7454 13:20-0500Heart rate 84 /Yordy Landeros MD Work Phone: [facility] [employer] Vcxxjp77-15-0113 13:20-0500 Respiratory rate16 /Yordy Landeros MD Work Phone: [facility] [place] Ixlknf77-00-1931 13:20-0500Systolic blood mupsfwjk854 mm[Hg]Samia Landeros MD Work Phone: [facility] [employer] Kyuwcn16-70-2125 11:14-0500Body .3 cmSamia Landeros MD Work Phone: [facility] Qgisba61-88-8430 11:14-0500Body mass index (BMI) [Ratio]36.44 kg/k2IkuqnSamia Landeros MD Work Phone: [facility] [employer] Gzpanc34-80-6404 11:14-0500Body rvpakl75.8 kgSamia Landeros MD Work Phone: [facility] Dkgphc77-16-1624 11:14-0500Diastolic blood azaclzrg34 mm[Hg]Samia Landeros MD Work Phone: [facility] [employer] Rhrggq76-46-5228 11:14-0500Heart rate 80 /Yordy Landeros MD Work Phone: [facility]02-19-2024 11:14-0500 Respiratory rate16 /Yordy Landeros MD Work Phone: [facility] [employer] Uknxxj67-58-8337 11:14-0500Systolic blood jkcasldb093 mm[Hg]Samia Landeros MD Work Phone: [facility]01-29-2024 14:30-0500Body okhjrs889.02 cmTondra Mapus Other [facility]01-29-2024 14:30-0500 Body mass index (BMI) [Ratio]36.89 kg/b1Foumgq [employer] Other [address] [employer] Other 01-29-2024 14:30-0500Body sajapi14.48 kgTondra Mapus Other [facility]01-29-2024 14:30-0500 Diastolic blood tvhbyvep06 mm[Hg]Tondra Mapus Other [facility]01-29-2024 14:30-0500 Respiratory rate18 /minTondra Mapus Other [employer] Other 01-29-2024 14:30-0902JfW6% (BldA) [Mass fraction]94 % Tondra Mapus Other [employer] Other 01-29-2024 14:30-0500Systolic blood mm[Hg] Tondra Mapus Other [facility]10-16-2023 14:30-0400 Body yumyqz420.02 cmTondra Mapus Other [employer] Other 10-16-2023 14:30-0400Body mass index (BMI) [Ratio] 36.26 kg/t0Vmajje Mapus Other [employer] Other 10-16-2023 14:30-0400Body btcpif92.85 kgTondra Mapus Other [employer] Other 10-16-2023 14:30-0400Diastolic blood tytehxyo39 mm[Hg] Tondra Mapus Other [employer] Other 10-16-2023 14:30-0400Respiratory rate18 /minTondra Mapus Other [employer] Other 10-16-2023 14:30-6835AsD9% (BldA) [Mass fraction]95 % Tondra Mapus Other [employer] Other 10-16-2023 14:30-0400Systolic blood bebrmncb448 mm[Hg] Tondra Mapus Other [employer] Other 07-17-2023 13:30-0400Body xornry449.02 cmTondra Mapus Other [employer] Other 07-17-2023 13:30-0400Body mass index (BMI) [Ratio] 34.68 kg/q6Vbhuls Mapus Other [employer] Other 07-17-2023 13:30-0400Body tiysjs56.81 kgTondra Mapus Other [employer] Other 07-17-2023 13:30-0400Diastolic blood ccggatng40 mm[Hg] Tondra Mapus Other [employer] Other 07-17-2023 13:30-0400Respiratory rate18 /minTondra Mapus Other [employer] Other 07-17-2023 13:30-7031AoP2% (BldA) [Mass fraction]96 % Tondra Mapus Other [employer] Other 07-17-2023 13:30-0400Systolic blood deyslpdu570 mm[Hg] Tondra Mapus Other [employer] Other 04-12-2023 15:15-0400Body miynro608.02 cmTondra Mapus Other [employer] Other 04-12-2023 15:15-0400Body mass index (BMI) [Ratio] 33.65 kg/m3Yfxtwf Mapus Other [employer] Other 04-12-2023 15:15-0400Body .18 kgTondra Mapus Other [employer] Other 04-12-2023 15:15-0400Diastolic blood ybevoacj79 mm[Hg] Tondra Mapus Other [employer] Other 04-12-2023 15:15-0400Respiratory rate18 /minTondra Mapus Other [employer] Other 04-12-2023 15:15-1395IzF2% (BldA) [Mass fraction]98 % Tondra Mapus Other [employer] Other 04-12-2023 15:15-0400Systolic blood zcxgzvda587 mm[Hg] Tondra Mapus Other [employer] Other 03-15-2023 15:45-0400Body tvzlyi537.02 cmTondra Mapus Other [employer] Other 03-15-2023 15:45-0400Body mass index (BMI) [Ratio] 33.35 kg/g8Dtwrub Mapus Other [employer] Other 03-15-2023 15:45-0400Body tjvcqy44.41 kgTondra Mapus Other [employer] Other 03-15-2023 15:45-0400Diastolic blood vuobbhwy68 mm[Hg] Tondra Mapus Other [employer] Other 03-15-2023 15:45-0400Respiratory rate18 /minTondra Mapus Other [employer] Other 03-15-2023 15:45-8265ZcN8% (BldA) [Mass fraction]96 % Tondra Mapus Other [employer] Other 03-15-2023 15:45-0400Systolic blood mm[Hg] Tondra Mapus Other [employer] Other 01-09-2023 15:45-0500Body nxljus656.02 cmTondra Mapus Other [employer] Other 01-09-2023 15:45-0500Body mass index (BMI) [Ratio] 32.47 kg/d4Izvwdm Mapus Other [employer] Other 01-09-2023 15:45-0500Body polfdy06.14 kgTondra Mapus Other [employer] Other 01-09-2023 15:45-0500Diastolic blood jpmsehty68 mm[Hg] Tondra Mapus Other [employer] Other 01-09-2023 15:45-0500Respiratory rate18 /minTondra Mapus Other [employer] Other 01-09-2023 15:45-2322YiA4% (BldA) [Mass fraction]96 % Tondra Mapus Other [employer] Other 01-09-2023 15:45-0500Systolic blood znnbnxao777 mm[Hg] Tondra Mapus Other [employer] Other 12-05-2022 09:00-0500Body dkmvcu817.02 cmTondra Mapus Other [employer] Other 12-05-2022 09:00-0500Body mass index (BMI) [Ratio] 31.92 kg/d8Ljhxzx Map[employer] Other [employer] Other 12-05-2022 09:00-0500Body kvsufb68.74 kgTondra Mapus Other [facility] [employer] Other 11-23-2022 12:00-0500Body .02 cmTondra Mapus Other [facility] Other 11-23-2022 12:00-0500Body mass index (BMI) [Ratio] 31.28 kg/y2Afstze Mapus Other [facility] [employer] Other 11-23-2022 12:00-0500Body xkabne00.11 kgTondra Mapus Other [place] [employer] Other 11-23-2022 12:00-0500Diastolic blood bagdmxzb06 mm[Hg] Tondra Mapus Other [facility] Other 11-23-2022 12:00-0500Respiratory rate18 /minTondra Mapus Other [place] [employer] Other 11-23-2022 12:00-1261ZrM3% (BldA) [Mass fraction]98 % Tondra Mapus Other [place] [employer] Other 11-23-2022 12:00-0500Systolic blood gfddywmb409 mm[Hg] Tondra Mapus Other [employer] Other Encounters Encounter DateEncounter TypeCare ProviderFacilityStart: 11-10-2024 End: 52-43-1912AyypolYrnkv T Defrance MD Work Phone: [facility] MedicineStart: 11-04-2024 End: 15-96-9879Nzspeioi ReferredBoy Phillips [employer]-C-[facility] Work Phone: Start: 11-04-2024 End: 14-97-3827znnkrzcpvtHdydeXiomara Shaw MD Work Phone: [facility] Work Phone: Start: 11-04-2024 End: 51-35-7135Jrlkhoo encounter procedureBoy Phillips [employer]-[facility] Work Phone: Start: 10-20-2024 End: 98-57-7539Hkqogwv encounter Juantio Shaw MD Work Phone: [facility] MedicineComment on above: Necrotizing pancreatitis (Primary Dx); Secondary diabetes mellitus (CMS-HCC); Mixed hyperlipidemia; Essential hypertension, benign; Encounter for screening mammogram for malignant neoplasm of breastStart: 10-20-2024 End: 84-06-0529qoaciqjddfPHQFS T DEFRANCESt. [facility] PPGStart: 10-15-2024 End: 41-77-2132IgxnpxAbpfbvDorene BERMAN Work Phone: [facility] MedicineStart: 08-15-2024 End: 58-85-3082FgpwyrWcoyk Khurshid MD Work Phone: [facility] MedicineStart: 08-13-2024 End: 58-08-2511TxgrcxVogxkRyan Landeros MD Work Phone: [facility] MedicineComment on above: Mixed hyperlipidemiaStart: 06-20-2024 End: 12-94-9177TchvitAcrotRyan Landeros MD Work Phone: [facility] MedicineStart: 05-18-2024 End: 16-91-9480JvgnmtLjhxpRyan Landeros MD Work Phone: [facility] MedicineStart: 04-23-2024 End: 49-06-6150KxvfxhIdevsRyan Landeros MD Work Phone: [facility] MedicineStart: 04-14-2024 End: 80-11-5381snsobdcecxHzxzeadnbCommunity [facility] Work Phone: Start: 04-14-2024 End: 93-38-9009Uhbpuvg encounter [facility] Work Phone: Start: 02-19-2024 End: 65-56-2399IeedcmVsccp T Defrance MD Work Phone: [facility] MedicineStart: 10-22-2023 End: 79-11-5944Gpjhzswtb encounterDakerry Landeros MD Work Phone: [facility] MedicineStart: 09-11-2023 End: 32-97-8333UxzbnpIuqyrRyan Landeros MD Work Phone: [facility] MedicineStart: 08-24-2023 End: 40-22-5740AdukaeQyizn T Defrance MD Work Phone: [facility] MedicineStart: 08-17-2023 End: 34-37-6817IlifemRlfea T Defrance MD Work Phone: [facility] MedicineStart: 07-24-2023 End: 89-79-6467Xwpuff OnlySamia Landeros MD Work Phone: [facility] MedicineStart: 07-16-2023 End: 36-97-6528KfsfbjZvewaRyan Landeros MD Work Phone: [facility] MedicineStart: 06-15-2023 End: 03-60-9732FqymzyJrxnjRyan Landeros MD Work Phone: [facility] MedicineComment on above: Mixed hyperlipidemiaStart: 56-19-8831Jtjiuwsam encounterDakerry Landeros MD Work Phone: [facility] MedicineStart: 04-27-2023 Telephone encounterDenise Krishna [facility] MedicineStart: 15-24-4327Emwjex OnlySamia Landeros MD Work Phone: [facility] MedicineStart: 04-16-2023 End: 62-49-8513Xuiibg outpatient visit 15 minutesSamia Landeros MD Work Phone: [facility] MedicineComment on above: Other acute sinusitis, recurrence not specified (Primary Dx)Start: 04-02-2023 End: 02-49-2232Xrtjdt outpatient visit 15 minutesSamia Landeros MD Work Phone: [facility] Family MedicineComment on above: Secondary diabetes mellitus (CMS-HCC) (Primary Dx); Necrotizing pancreatitis; Mixed hyperlipidemia; Essential hypertension, benignStart: 61-79-0089TgxarpPmxrgRyan Landeros MD Work Phone: [facility] MedicineStart: 03-23-2023 End: 95-18-4429ssodczpxebSqwtfx Jacqueline Other [employer] Other Start: 03-16-6716Zveoejjzy encounterTondra [facility] ClinicStart: 03-12-2023 End: 10-65-4644Unbacyhrsi RecurringMD Samia Landeros Work Phone: [facility] Work Phone: Start: 03-12-2023(DM) [facility] ClinicStart: 03-12-2023 End: 80-08-3449myvhuunjnmHD David Defrance Work Phone: [employer] Other Start: 03-12-2023 End: 83-16-9017Twhsqvg encounter procedureMD Samia Landeros Work Phone: [facility]-Start: 53-18-7475KwooeoKgxfmKrysta Landeros MD Work Phone: [facility] MedicineStart: 01-01-2023 End: 97-42-2438tqhdvuvcswXpghwk [employer] Other [employer] Other Start: 87-12-4237Maiquypzs encounterTondra [facility]queline [facility] Coord[facility] Care ClinicStart: 11-27-2022(DM) DiabetesTondra Saturninous [facility] Coordinated Care ClinicStart: 11-27-2022 End: 82-04-3501kxmmhtfwjiNbnwcp [employer] Other [employer] Other Start: 08-28-2022(DM) DiabetesTondra MapusFirelands Coordinated Care ClinicStart: 08-28-2022 End: 46-98-1449ckwiwfcwcyQlzyfw [employer] Other [employer] Other Start: 05-24-2022(DM) DiabetesTondra MapusFirelands Coordinated Care ClinicStart: 05-24-2022 End: 98-44-9055afhkuftmlrJkplfr [employer] Other [employer] Other Start: 05-01-2022 End: 99-10-3387qbwggqtanzGE SAMIA DEFRANCEFacility:M5Jntdg: 04-26-2022(DM) DiabetesTondra MapusFirelands Coordinated Care ClinicStart: 04-26-2022 End: 26-17-2439ctzaomcwknFuentl Mapus Other [employer] Other Start: 03-09-2022 End: 10-41-3238grdckvhhimBlvqvw [employer] Other [employer] Other Start: 31-75-7126Shzcqkxoa encounterTondra Jacqueline [facility] Care ClinicStart: 03-06-2022 End: 72-02-3082tswtmvjlkaSinjig [employer] Other [employer] Other Start: 72-23-4870Apxwlhuzr encounterTondra Jacqueline [facility] Coordinated Care ClinicStart: 02-20-2022(DM) DiabetesTondra Jacqueline [facility] ClinicStart: 02-20-2022 End: 02-94-6125nnlqqqsydkMlorvn [employer] Other [employer] Other Start: 01-20-2022 End: 20-28-6214gcwosqjrdeBktelk [employer] Other [employer] Other Start: 98-31-2881Dcmqbzyoz encounterTondra Jacqueline [facility] Care ClinicStart: 01-16-2022 End: 98-37-5941ikjubgnqsuUrerhu [employer] Other [employer] Other Start: 21-06-7374Qgusyuz evaluation of patient and reportTondra Lorenza Coord[facility] Care ClinicStart: 51-62-5156Qudksjtxe encounterTondra Kevins [facility] Care ClinicStart: 01-13-2022 End: 73-37-6767xpkmircofdBeeylh Simon MD Work Phone: General SurgeryComment on above:Secondary diabetes mellitus (HCC) (Primary Dx)Start: 01-13-2022 End: 43-65-9209Iqiyrzswvxvt consultation with Cole Grady MD Work Phone: [facility] MAINStart: 01-08-2022 End: 36-89-4865txcmtrfexfMrkyvf [employer] Other [employer] Other Start: 51-76-3692Rlaisqykq encounterTondra MapusFPG EndocrinologyStart: 01-06-2022 End: 08-32-8982xeceylnotsAN SAMIA DEFRANCEFacility:H3Penbs: 01-04-2022 End: 13-35-6115xjyrtbyemnQshvcu [employer] Other [employer] Other Start: 78-48-3575HGHD visit new Guerita Phillips [facility] Coordinated Care ClinicStart: 27-07-4624dufwxlrmdeXJ DAVID DEFRANCE Facility:H9Lfwpd: 11-14-2021 End: 37-65-1815gznahoifojXeja Fitt Other [facility] [employer] Other Start: 88-69-3612Rezfziste encounterDawdeborah FisherPioneer [facility] Hospital Coordinated Care ClinicStart: 11-08-2021 End: 96-20-8855hhemvfglqaMZ DAVID DEFRANCEFacility:D8Vkjue: 10-24-2021 End: 12-48-9884reqhtmamowFC DAVID DEFRANCEFacility:U4Bxxtm: 11-01-2017 End: 74-79-2735Ajmnjomauu and management of inpatientSALIL AVASTHIMercy [facility] Procedures DateProcedureProcedure DetailPerforming ClinicianStart: 85-03-7319Dzocp depression screening assessmentDrake Shaw MD Work Phone: Start: 11-54-1882Wpeijxjh retinal eye examSamia Landeros MD Work Phone: Start: 80-78-4317UhvihznacixMyjoe Defrance MD Work Phone: Start: 55-33-5848Hunlk depression screening assessment Samia Landeros MD Work Phone: Start: 61-33-7989Ahcch depression screening assessment Samia Landeros MD Work Phone: Start: 16-63-2700Wndmxwmg retinal eye examSamia Landeros MD Work Phone: Start: 20-15-7499Witcn depression screening assessment Samia Landeros MD Work Phone: Start: 58-41-8787Hilehgmcqwwv [Mass/volume] in Urine by Test stripSamia Landeros MD Work Phone: Start: 88-19-0791ZxqyztpicqkRajgai Simon MD Work Phone: Start: 11-25-5648VkkbncpmrbnGghywf Simon MD Work Phone: Start: 30-90-7459EAV GLUCOSE FINGERSTICKSALIL AVASTHI Start: 88-42-6430KQYJ GLUCOSESALIL AVASTHIStart: 28-45-0236VJKKRTBLH PATIENT STEPH AVASTHIStart: 29-11-3975Btdsh metabolic panel calcium totalSALIL AVASTHI Start: 48-64-8542Lghmg count complete auto&auto difrntl wbcSALIL AVASTHIStart: 56-54-3135FEHKNFM AND OR DRUG ASSESSMENTSALIL AVASTHIStart: 09-16-3237AEMG PRECAUTIONSSALIL AVASTHIStart: 83-21-9604MOVXPZMY OXYGEN THERAPY PROTOCOLSALIL AVASTHIStart: 71-57-3043GLEHZAC PRECAUTIONSSALIL AVASTHIStart: 70-04-5940BAHP GLUCOSESALIL AVASTHIStart: 18-43-1860Gv abdomen & pelvis w/contrast material STEPH AVASTHIStart: 56-84-3330Qdsjuzsybp exam abdomen 1 viewSALIL AVASTHIStart: 49-22-3944FXKS GLUCOSESALIL AVASTHIStart: 79-36-3947ZFOYXUT, IONIZEDSALIL AVASTHIStart: 98-04-7534RCZ GLUCOSE FINGERSTICKSALIL AVASTHIStart: 11-03-2017 INITIATE OXYGEN THERAPY PROTOCOLSALIL AVASTHIStart: 25-36-6227EXEKWBNTKFF CARE EVALUATION AND TREATSALIL AVASTHIStart: 15-75-3738Yxory count complete auto&auto difrntl wbcSALIL AVASTHIStart: 27-69-1500EUHW GLUCOSESALIL AVASTHIStart: 60-45-5753MLD GLUCOSE FINGERSTICKSALIL AVASTHIStart: 40-11-8085JYB GLUCOSE FINGERSTICKSALIL AVASTHIStart: 49-12-5202WPIL GLUCOSESALIL AVASTHIStart: 40-52-1466Nldfpeztfg exam abdomen 1 viewSALIL AVASTHIStart: 50-15-7361LGDDDKKIEA AND HEMATOCRIT, BLOODSALIL AVASTHIStart: 78-83-7574BJL GLUCOSE FINGERSTICKSALIL AVASTHIStart: 18-37-2947AJ CONSULT TO IV TEAMSALIL AVASTHIStart: 13-88-8882TBLP GLUCOSESALIL AVASTHIStart: 72-59-6002NUKCNPCERN AND HEMATOCRIT, BLOODSALIL AVASTHIStart: 13-85-3091DJSZ INSERTIONSALIL AVASTHIStart: 90-58-3463QQD GLUCOSE FINGERSTICKSALIL AVASTHIStart: 89-24-0141ELMH GLUCOSESALIL AVASTHIStart: 79-27-3386EKNTWFGI OXYGEN THERAPY PROTOCOLSALIL AVASTHIStart: 11-02-2017 RESPIRATORY CARE EVALUATION AND TREATSALIL AVASTHIStart: 78-17-0778Pvgqh of magnesiumSALIL AVASTHIStart: 15-60-9852Ximqy count complete auto&auto difrntl wbcSALIL AVASTHIStart: 54-45-6401Jznce of amylaseSALIL AVASTHIStart: 11-02-2017 Assay of lactateSALIL AVASTHIStart: 50-44-7728Tzkke of lipaseSALIL AVASTHIStart: 74-96-9086Xeopu count complete auto&auto difrntl wbcSALIL AVASTHIStart: 79-24-7586CIRACUG, IONIZEDSALIL AVASTHIStart: 32-44-5724Htukm panelSALIL AVASTHI Start: 50-27-5594Mbbsufvpnku timeSALIL AVASTHIStart: 82-35-1180Hgffsjzkpatbmb time partial plasma/whole bloodSALIL AVASTHIStart: 73-03-9656Rbzxoow bacterial blood aerobic w/id isolatesSALIL AVASTHIStart: 94-71-5161YGSNNQX BLOOD #1SALIL AVASTHIStart: 68-03-8074PGSLJPIJMGP CARE EVALUATION AND TREATSALIL AVASTHIStart: 93-77-6424SKC 12-LEADSALIL AVASTHIStart: 48-94-5526PTGMEYU, URINE CATHETERSALIL AVASTHIStart: 74-85-2796Qyqrfmceae exam abdomen 1 viewSALIL AVASTHIStart: 41-23-0727GX CONSULT TO GISALIL AVASTHIStart: 82-99-4498MFSNN INTERMITTENT PNEUMATIC COMPRESSION DEVICESALIL AVASTHIStart: 28-11-9687TZMRNN FOR NO CHEMICAL VTE PROPHYLAXISSALIL AVASTHIStart: 59-83-9201TNBF CODESALIL AVASTHIStart: 07-22-7695IAUMDPTW OXYGEN THERAPY PROTOCOLSALIL AVASTHIStart: 44-61-5508QOMTFR PHYSICIAN (SPECIFY)STEPH AVASTHIStart: 96-55-8814NRPUV SIGNSSALIL AVASTHIStart: 08-95-2105WNSY DNA PROBE, NASALSALIL AVASTHIStart: 97-95-3090VG CONSULT TO GENERAL SURGERYSALIL AVASTHIStart: 65-21-8466SZRUTAC STATUS (DIRECT)STEPH AVASTHIH/O: surgeryH/O resection of pancreasH/O: surgeryH/O resection of pancreasTondra K Mapus [employer]-C Plan of Treatment DateCare ActivityDetailAuthorStart: 62-82-7903DHcK,Tdap and Td Vaccines (2 - Td or Tdap)DTaP,Tdap and Td Vaccines (2 - Td or Tdap)[facility]MAll[facility] SystemStart: 55-93-6272Imfdb microalbumin profileDTAP,TDAP,TD (2 - Td or Tdap)[facility] 10-21-2025 End: 74-32-2560Orrwaqn encounter wluzikaaj03/09/2026 3:30 PM EDT Office Visit [facility] [address] [place], [place] [id number] Drake Shaw MD [address] [place] [id number] [facility] MedicineStart: 45-91-1498Rcgoh BMI Follow Up PlanAdult BMI Follow Up PlanProFirelands Regional Medical [facility] SystemStart: 20-77-2816Znwyk BMI ScreeningAdult BMI ScreeningSelect [facility]ty [facility] SystemStart: 09-08-2026Medicare Annual Wellness VisitMedicare Annual Wellness VisitSt. Luke's Hospitaltart: 29-03-2427Treinbn ScreeningTobacco Screening [facility] SystemStart: 53-78-9872Haatchjzfs ScreeningDepression Screening [facility] SystemStart: 56-03-9916Ibjo Risk ScreeningFall Risk Screening [facility] SystemStart: 97-05-7691Sqppgu Use: DiabeticStatin Use: Diabetic [facility] SystemStart: 04-30-2025 End: 69-41-2963Skdelps encounter itfslbkjk08/19/2026 9:00 AM EDT Office Visit [facility] [address], [id number] Drake Shaw MD [address] [place] [address] [facility] MedicineStart: 80-85-7708Hyxgemvm screeningDiabetic Ophthalmology ExamProRegency Hospital [facility] Start: 30-60-9663Dulhlopsf for malignant neoplasm of breastMammogramProFirelands [facility] SystemStart: 10-20-2024 End: 09-73-7681Awgtnts encounter procedureProMedica Physicians [facility] Start: 10-20-2024 End: 24-64-0272FFK Breast - bilateral screeningMammography screening bilateral with CAD Imaging Routine Encounter for screening mammogram for malignant neoplasm of breast Expected: 10/20/2024, Expires: 10/20/2025[facility] SystemComment on above:Expected: 10/20/2024, Expires: 10/20/2025Start: 85-00-2427Eyuma BMI ScreeningAdult BMI ScreeningSelect [facility] SystemStart: 90-72-9875Xznhswamek ScreeningDepression ScreeningSelect [facility] SystemStart: 57-05-5933Rwgp Risk ScreeningFall Risk ScreeningSelect [facility] SystemStart: 09-03-2025Medicare Annual Wellness VisitMedicare Annual Wellness VisitSelect [facility] SystemStart: 31-66-9194Ersuxar ScreeningTobacco ScreeningSelect [facility] SystemStart: 68-41-1163Inwicjqor vaccinationInfluenza VaccineProFirelands [facility] SystemStart: 35-68-1927Wbsgb BMI ScreeningAdult BMI ScreeningSelect [facility] SystemStart: 15-58-4605Pflnt BMI ScreeningAdult BMI ScreeningSelect [facility] SystemStart: 13-19-4715Olfrlmhqgf ScreeningDepression ScreeningSelect [facility] SystemStart: 56-33-6317Nzii Risk ScreeningFall Risk ScreeningSelect [facility] SystemStart: 75-21-7473Lomlvsm ScreeningTobacco ScreeningSelect [facility] System Start: 26-37-4546Yocfvwvb screeningDiabetic Ophthalmology ExamProDunlap Memorial Hospitaltart: 10-16-2023 End: 61-89-9724Ljcspxz encounter npevqorkx78/03/2024 3:00 PM EDT Office Visit [facility] [address], [id number] Samia Landeros MD [address] [place] [address] [facility] MedicineStart: 44-65-5320Volwonmet vaccinationInfluenza VaccineSelect [facility] SystemStart: 89-19-1497Zryvg BMI ScreeningAdult BMI ScreeningSelect [facility] SystemStart: 08-31-2024Medicare Annual Wellness VisitMedicare Annual Wellness VisitSt. Luke's Hospitaltart: 85-72-3488Weylcdd ScreeningTobacco ScreeningSelect [facility] SystemStart: 63-74-0068Fvnmxvhdzt ScreeningDepression ScreeningSelect [facility] SystemStart: 00-96-6859Ivdt Risk ScreeningFall Risk ScreeningSelect [facility] SystemStart: 30-67-6290Qukri screening for proteinUrine MicroalbuminSelect [facility] Specialty [facility] SystemStart: 04-23-2023 End: 26-18-5115Xhmhnfvo Anyxqxk6004/23/2023 3:00 PM EDT Clinical Support [facility] [address] [place] [id number] [facility] MedicineStart: 22-17-6745Nidqlrod foot examination Diabetic Foot ExamSelect [facility] SystemStart: 04-10-2023 End: 80-08-4526Jsznblz encounter jzjciqzmg25/27/2024 3:30 PM EST Office Visit [facility] [address], [id number] Samia Landeros MD [address] [place] [address] [facility]: 04-02-2023 End: 47-69-7553Svxlsja encounter afnkbmnwj88/19/2024 11:15 AM EST Office Visit [facility] [address] [place] [address] Samia Landeros MD [address] [place] [address] [facility]ertart: 02-35-5878YptvrzkwghkQKWANMXTPPfwlcoflw ClinicStart: 53-19-4556Ermnnynbl for malignant neoplasm of breastMammogramSt. Luke's Hospitaltart: 10-13-2022 Influenza vaccinationInfluenza VaccineSt. Luke's Hospitaltart: 05-08-2022 Hemoglobin A1c/Hemoglobin.total in JsevyNMG1FRzswhsewp ClinicStart: 10-13-2021 Influenza vaccinationINFLUENZA (#1)[facility]art: 75-14-3146Mlrfrktoxhf COLONOSCOPYElyria Memorial Hospitaltart: 05-85-5584CYNSRJBQYV CANCER SCREENING COLORECTAL CANCER SCREENINGElyria Memorial Hospitaltart: 13-41-3325OGCITTQECP ASSESSMENTDEPRESSION ASSESSMENTElyria Memorial Hospitaltart: 57-30-4408Uofmmhshnunmtg of varicella zoster vaccineZoster (Shingles) Vaccine (1 of 2)[facility] Hospitaltart: 64-84-8972GJHJXRXC VACCINE (1 of 2)SHINGRIX VACCINE (1 of 2) [facility]tart: 78-01-1082DRQCAVLBF (FIT-DNA)COLOGUARD (FIT-DNA)[facility]: 18-19-0590SG COLONOGRAPHYCT COLONOGRAPHYElyria Memorial Hospitaltart: 23-81-7163EKRVM OCCULT BLOODFECAL OCCULT BLOODElyria Memorial Hospitaltart: 2002 SIGMOIDOSCOPYSIGMOIDOSCOPYElyria Memorial Hospitaltart: 20-07-4815HYQ TESTINGHPV TESTINGElyria Memorial Hospitaltart: 64-50-7155XWU TESTINGPAP TESTINGMarymount Hospital Start: 76-78-7730Jevyh BMI Follow Up PlanAdult BMI Follow Up PlanSt. Luke's Hospitaltart: 93-48-1914GUMRKQ PCP TEAM CHRONIC DISEASE VISITANNUAL PCP TEAM CHRONIC DISEASE VISITCleSelect Medical Special[facility]-Fairhilltart: 96-90-5379IT CONTROLLED (<130/80)BP CONTROLLED (<130/80)[facility] Hospitaltart: 19-64-1490Biamjiaog B surface antibody levelLDL CHOLESTEROLElyria Memorial Hospitaltart: 12-67-0848WOEPNGVLE C SCREENINGHEPATITIS C SCREENINGElyria Memorial Hospitaltart: 93-46-0717CGL SCREENING HIV SCREENINGElyria Memorial Hospitaltart: comp foot exam completedDIABETIC FOOT EXAMCleSelect Medical Special[facility]-Fairhilltart: 23-58-3100Zzmuccawr B screeningURINE ALBUMIN:CREATININE RATIOElyria Memorial Hospitaltart: 25-01-3197Hlhlvzrea C antibody, confirmatory testDILATED RETINAL EXAMElyria Memorial Hospitaltart: 1961 PNEUMOCOCCAL (1 - PCV)PNEUMOCOCCAL (1 - PCV)[facility] Hospitaltart: 1957 COVID-19 VACCINE (#1)COVID-19 VACCINE (#1)[facility] End: 67-64-0278Jqwpg metabolic 2000 panel - Serum or PlasmaBasic Metabolic Panel Lab Routine Essential hypertension, benign 1 Occurrences starting 04/02/2023 u ntil 04/02/2024Pro[employer] Work Phone: comment on above:1 Occurrences starting 04/02/2023 until 04/02/2024 End: 80-69-9510XYV W Auto Differential panel - BloodCBC auto differential Lab Routine Essential hypertension, benign 1 Occurrences starting 10/20/2024 until 10/20/2025ProThe Jewish HospitalCommerce Resources SystemComment on above:1 Occurrences starting 10/20/2024 until 10/20/2025omprehensive metabolic 1999 panel - Serum or Plasma [facility] End: 72-43-4924Godpepjqmguia metabolic 1999 panel - Serum or PlasmaComprehensive metabolic panel Lab Routine Essential hypertension, benign 1 Occurrences starting 10/20/2024 until 10/20/2025ProMediCLEAR Work Phone: comment on above:1 Occurrences starting 10/20/2024 until 10/20/2025 End: 02-91-0735Epkmumdvxw A1c/Hemoglobin.total in BloodHemoglobin A1c Lab Routine Secondary diabetes mellitus ([facility]) 1 Occurrences starting 10/20/2024 until 10/20/2025ProThe Jewish HospitalCommerce Resources SystemComment on above:1 Occurrences starting 10/20/2024 until 10/20/2025 End: 47-87-4073Xudfd 1996 panel - Serum or PlasmaLipid profile Lab Routine Mixed hyperlipidemia 1 Occurrences starting 10/20/2024 until 10/20/2025[facility] HealthComment on above:1 Occurrences starting 10/20/2024 until 10/20/2025 End: 94-67-7435Oohvkambxxge - Albumin: Creatinine Urine RatioMicroalbumin - Albumin: Creatinine Urine Ratio Lab Routine Secondary diabetes mellitus ([facility]) 1 Occurrences starting 10/20/2024 until 10/20/2025[facility] Comment on above:1 Occurrences starting 10/20/2024 until 10/20/2025 Microalbumin/Creatinine [Mass Ratio] in [facility] Patient EducationDiabetes and [facility] Work Phone: End: 44-23-8524Iowjxyd profile includes TSH NO3Qzzlzfw profile includes TSH FT4 Lab Routine Essential hypertension, benign 1 Occurrences starting 10/20/2024 until 10/20/2025Mer[facility] HealthComment on above:1 Occurrences starting 10/20/2024 until 10/20/2025[facility] Immunizations Immunization DateImmunizationNotesCare TuagxnjjXaxcygvb67-49-7138Iyjcaxlepspx Conjugate 20-valentDakerry Landeros MD Work Phone: [facility] HealthIvmyhu81-44-5085wzyhrufnw, injectable, quadrivalent, preservative Kelsey Landeros MD Work Phone: [facility] HealthXzjgpq73-54-7555uycebslpl virus vaccine, unspecified formulationSamia Landeros MD Work Phone: [facility] HealthAsvdlb66-26-5100Rmuptwhjz, injectable, Madin [place] Canine Kidney, preservative free, quadrivalentSamia Landeros MD Work Phone: [facility] HealthPpxikj05-00-7987mvkpxyzgc, injectable, quadrivalent, preservative Kelsey Landeros MD Work Phone: [facility] HealthAwfzqe63-20-4161brhbcjkcwtkjk polysaccharide (groups A, C, Y and W-135) diphtheria toxoid conjugate vaccine (MCV4P)aSmia Landeros MD Work Phone: [facility] HealthHkzeye17-36-1853xgxyxfmyuujm polysaccharide vaccine, 23 valentSamia Landeros MD Work Phone: [facility] HealthBfbtgu45-62-5214fnhhtpobkaq influenzae type b vaccine, conjugate unspecified formulationSamia Landeros MD Work Phone: [facility] HealthCykrhf78-40-6799orztvjaqarhsh oligosaccharide (groups A, C, Y and W-135) diphtheria toxoid conjugate vaccine (MCV4O)Samia Landeros MD Work Phone: [facility] HealthBvxbnr51-21-2462zcemabfrwvjl polysaccharide vaccine, 23 valentSamia Landeros MD Work Phone: [facility] HealthNvnvpi48-41-1373dewlpuiui, injectable, quadrivalent, contains preservativePk Grady MD Work Phone: [facility] HospitalHqmffj37-43-3578faqtfjp toxoid, reduced diphtheria toxoid, and acellular pertussis vaccine, adsorbedPk Grady MD Work Phone: [facility] Work Phone: Payers DatePayer CategoryPayerPolicy ID2021Medicaid [id number] 2021MedicareANTHEMMedicareANTHEM MEDICARE ANTHEM MEDICARE ADVANTAGE [id number] 2020-Present [phone] [address] [place] [id number] 2021Medicare HMOANTHEM MEDICARE Member Subscriber Plan / Payer (Effective 2020-Present) Name: Nichole Sandhu Relation to Subscriber: Self Name: Nichole Sandhu SubscriberID: [id number] Payer ID: [id number] (NAIC) Group ID: [id number] Type: Not on file Address: [facility] [address] [place] [id number] 05-06-0686Vnys InsuranceAUTO INSURANCE [id number] [id number] Blue Cross Blue [id number] 2..[id number] 1960Medicaid [id number] [id number]-[id number] 2..1.361044.3.57[id number] 2..1.624248.3.57[id number] 2..1.749445.3.57[id number] 2.0.1.863066.3.57[id number] 2.0.1.183752.3.57[id number] 2.0.1.727030.3.57[id number] 2..840.1.02[id number] 2.840.1.910660.3.579.2.531 Social History DateTypeDetailFacilityUnknown if ever smokedNort [email or web address] Other Start: 03-23-2020 End: 66-18-3575Sfe [facility]: 07-01-2018 End: 81-60-1824Sbmqwfq smoking status NHISEx-smokerMarymount Hospital End: 52-77-8313Rbqyqin of tobacco useCurrent smokerMarymount Hospital End: 36-16-1395Xelvaaj of tobacco useCigarette SmokerElyria Memorial Hospitaltart: 07-01-2018 End: 25-96-8458Dbixbloned smoked current (pack per day) - Reported0.1PNovant Health Clemmons Medical Centertart: 07-01-2018 End: 70-88-2190Qisfoqs use and exposureSmokeless tobacco non-userElyria Memorial Hospitaltart: 01-13-2022 End: 92-78-9277Udmajba intakeEx-drinker (finding)[facility] Hospitaltart: 24-75-4327Fpr Assigned At BirthNot on fileElyria Memorial Hospitaltart: 16-73-6403Vqk Assigned At [facility] Hospitaltart: 51-58-1706Ldklhjs smoking status NHISNever smoked tobaccoProRegency Hospital Cleveland EastDo you belong to any clubs or organizations such as zoroastrianism groups, unions, fraternal or athletic groups, or school groups?YesProMedica Health SystemAre you now , , , , never or living with a partner?Never [facility] SystemHow often to you have a drink containing alcohol?Never [facility] SystemHow many standard drinks containing alcohol do you have on a typical day?Patient declinedProRegency Hospital Cleveland EastDo you feel stress - tense, restless, nervous, or anxious, or unable to sleep at night because your mind is troubled all the time - these days [OSQ]Not at allSelect Medical Specialty [facility] SystemStart: 60-53-0632Oucowuihi81RliJduqwu Vilynx SystemStart: 11-22-2017 Alcohol CommentoccasionalSt. Luke's Hospitaltart: 11-19-2017 End: 82-72-8165YzxCcyfae (finding)[facility] SystemHow hard is it for you to pay for the very basics like food, housing, medical care, and heatingNot very hardMercy Health Medical Equipment Procedure CodeEquipment CodeEquipment Original TextEquipment IdentifierDates [id number], [id number], [id number]: 37-02-9386Kxdnerg on above:Use as instructedblood sugar diagnostic (True Metrix Glucose Test Strip)Start: 54-96-6551woljr sugar diagnostic (True Metrix Glucose Test Strip)Start: 80-74-1129pjqcd sugar diagnostic (True Metrix Glucose Test Strip)Start: 06-18-2023 Clinical Notes 11-27-2017 to 11-04-2024 Note Date & BrraImviSlrsvsnk29-66-6918 Evaluation note* Diagnosis Onset Date Resolution Status Admit Date BMI 36.0-36.9,adult acuteSept2024 2:51pmDietary counseling and surveillanceacute November 04, 2024 2:51pmH/O resection of pancreasacutept2024 2:51pmHyperlipidemiaacuteSept2024 2:51pmHypertensionacuteSept2024 2:51pmInsulin pump titrationacutept2024 2:51pmType 2 diabetes mellitusacutept2024 2:51pm [facility] Work Phone: 1(978) 953-412609-08-2025 History of Present illness Narrative* Drake Shaw MD - 10/20/2024 3:00 PM EDT Images from the original note were not included. [address] [place] [address] Subjective: Nichole Sandhu is a 69 y.o. female who presents for a Medicare Annual Wellness exam. 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 difficile colitis Diabetes mellitus ([facility]) Hypertension Necrotizing pancreatitis Pancreatitis [...] 1 capsule (5,000 Units total). 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 Secondary diabetes mellitus ([facility]) - Hemoglobin A1c; Future - Microalbumin - [...] Follow Up: 6 mo documented in this encounterMercy Health09-09-2024 Miscellaneous Notes* Telephone Encounter - Samia Landeros MD - 10/22/2023 3:51 PM EDT Outside labs - wbc# 15,000 has fluctuated in the past- and pt has no c/o's on ros including exposure- will observe k+ 3.4 and is on potassium 10meq 1 qd , will increase to bid rx sent documented in this encounterMercy Health09-09-2024 Telephone encounter Note* Telephone Encounter - Samia Landeros MD - 10/22/2023 3:51 PM EDT Outside labs - wbc# 15,000 has fluctuated in the past- and pt has no c/o's on ros including exposure- will observe k+ 3.4 and is on potassium 10meq 1 qd , will increase to bid rx sent [facility]07-30-2024 Miscellaneous Notes* Telephone Encounter - Yohana Keller LPN - 09/11/2023 12:43 AM EDT [facility] requesting refill of Ferrous Sulfate documented in this encounterMercy Health07-30-2024 Telephone encounter Note* Telephone Encounter - Yohana Keller LPN - 09/11/2023 12:43 AM EDT [facility] requesting refill of Ferrous Sulfate [facility]07-12-2024 Miscellaneous Notes* Telephone Encounter - Yohana Keller LPN - 08/24/2023 12:43 AM EDT [facility] requesting refill of Klor Con documented in this encounterMercy Health07-12-2024 Telephone encounter Note* Telephone Encounter - Yohana Keller LPN - 08/24/2023 12:43 AM EDT [facility] requesting refill of Klor Con [facility]07-05-2024 Miscellaneous Notes* Telephone Encounter - Yohana Keller LPN - 08/17/2023 3:15 PM EDT Patient via MyChart requesting refill of Diclofenac Gel, Lidociane Patches and Meclizine to [place] [facility] documented in this encounterMercy Health07-05-2024 Telephone encounter Note* Telephone Encounter - Yohana Keller LPN - 08/17/2023 3:15 PM EDT Patient via MyChart requesting refill of Diclofenac Gel, Lidociane Patches and Meclizine to [place] [facility]06-03-2024 Miscellaneous Notes* Telephone Encounter - Yohana Keller LPN - 07/16/2023 9:12 AM EDT Patient via MyChart requesting refill of Carvedilol and Ondansetron to [place] [facility] documented in this encounterMercy Health06-03-2024 Telephone encounter Note* Telephone Encounter - Yohana Keller LPN - 07/16/2023 9:12 AM EDT Patient via MyChart requesting refill of Carvedilol and Ondansetron to [facility]05-03-2024 Miscellaneous Notes* Telephone Encounter - Yohana Keller LPN - 06/15/2023 5:37 PM EDT [facility] requesting refill of Atorvastatin and Pantoprazole documented in this encounterMercy Health05-03-2024 Telephone encounter Note* Telephone Encounter - Yohana Keller LPN - 06/15/2023 5:37 PM EDT [facility] requesting refill of Atorvastatin and Pantoprazole [facility]03-25-2024 Miscellaneous Notes* Telephone Encounter - Samia Landeros MD - 05/07/2023 10:38 AM EDT Outside labs are good except for glucose at 203- please f/u Tondra regarding sugar * Telephone Encounter - Cynthia Taylor CMA - 05/07/2023 10:38 AM EDT Patient notified of results and instructions. documented in this encounterMercy Health03-25-2024 Telephone encounter Note* Telephone Encounter - Samia Landeros MD - 05/07/2023 10:38 AM EDT Outside labs are good except for glucose at 203- please f/u Tondra regarding sugar [facility]03-25-2024 Telephone encounter Note* Telephone Encounter - Cynthia Taylor CMA - 05/07/2023 10:38 AM EDT Patient notified of results and instructions. [facility]03-15-2024 Miscellaneous Notes* Telephone Encounter - Yohana Keller LPN - 04/27/2023 8:56 AM EDT Needs new Rx for Amlodipine 5mg documented in this encounterMercy Health03-15-2024 Telephone encounter Note* Telephone Encounter - Yohana Keller LPN - 04/27/2023 8:56 AM EDT Needs new Rx for Amlodipine 5mg [facility]03-15-2024 Miscellaneous Notes* Telephone Encounter - Yohana Keller LPN - 04/27/2023 8:16 AM EDT Anneliese's BP is low at night, 98/60 range, do you want to make any changes? * Telephone Encounter - Samia Landeros MD - 04/27/2023 8:16 AM EDT We can decrease the norvasc to 5mg- do we need a new rx? * Telephone Encounter - Yohana Keller LPN - 04/27/2023 8:16 AM EDT Patient notified of message and verbalizes understanding documented in this encounterMercy Health03-15-2024 Telephone encounter Note* Telephone Encounter - Yohana Keller LPN - 04/27/2023 8:16 AM EDT Anneliese's BP is low at night, 98/60 range, do you want to make any changes? [facility]03-15-2024 Telephone encounter Note* Telephone Encounter - Samia Landeros MD - 04/27/2023 8:16 AM EDT We can decrease the norvasc to 5mg- do we need a new rx? [facility]03-15-2024 Telephone encounter Note* Telephone Encounter - Yohana Keller LPN - 04/27/2023 8:16 AM EDT Patient notified of message and verbalizes understanding [facility]03-04-2024 History of Present illness Narrative* Samia Landeros MD - 04/16/2023 1:15 PM EST Images from the original note were not included. [address] [facility] [address] SUBJECTIVE: Patient ID: Nichole Sandhu is a 68 y.o. female. 68 yo WF with sinus x 1 week colored phlegm, fever negative , URIARTE dizziness nausea The following portions of the patient's history were reviewed and updated as appropriate: allergies, current medications, past family history, past medical history, past social history, past surgicalhistory and problem list. REVIEW OF SYSTEMS: Review [...] Cefdinir 300mg bid x10d documented in this encounterMercy Health02-19-2024 History of Present illness Narrative* Samia Landeros MD - 04/02/2023 11:15 AM EST Images from the original note were not included. [address] [place] [id number] SUBJECTIVE: Patient ID: Nichole Sandhu is a 68 y.o. female. 68 yo WF with check up bp has been 140-160 and sugars hve been 140-150 The following portions of the patient's history were reviewed and updated as appropriate: allergies, current medications, past family history, past medical history, past social history, past surgicalhistory and problem list. REVIEW OF SYSTEMS: Review [...] BMP in 3 weeks documented in this encounterShelby Memorial HospitalCLEAR [facility] Women'S HospitalArxqkn14-28-2769 Miscellaneous Notes* Telephone Encounter - Yohana Keller LPN - 03/26/2023 9:43 AM EST [place] [facility] requesting refill of Colace documented in this encounterShelby Memorial HospitalLogical Apps02-12-2024 Telephone encounter Note* Telephone Encounter - Yohana Keller LPN - 03/26/2023 9:43 AM EST [place] [facility] Colace [facility]Ap[facility]02-09-2024 Evaluation note* Encounter Date Diagnosis Assessment Notes Treatment Notes Treatment Clinical Notes Mar, Secondary diabetes (ICD-10 - E13 .9) [employer] Other 01-29-2024 Evaluation note* Encounter Date Diagnosis Assessment Notes Treatment Notes Treatment Clinical Notes Feb, Secondary diabetes (ICD-10 - E13 .9) Diabetes and foot care material was published, [...] of diabetes, progressive beta cell , concepts ofbasal/bolus/corrective insulin requirements. Basal: The goal is fasting blood glucose of 90-130mg. If fasting blood glucose starts to run under 100mg 3x's/ week, decrease dose by 10%. Bolus: The goalis to hold the blood glucose level steady meal to meal. If pt. is going to have increased physical activity after a meal, decrease the schedule meal dose prior to the activity by 30-50%. If pt. skipsa meal do not take this dose. Correction: The goal is to correct an elevated glucose back into the 100-150mg range b. Nutrition: Concepts of healthy diet reviewed, encouraged to decrease saturated fat in diet and increase non-starchy vegetables and fruits in diet. BMI: Pt. needs to select one smallchange to decrease caloric intake or increase physical activity to help decrease weight. c. Correct treatment of hypoglycemia, carry a glucose source at all times on your person, in vehicles, and at bedside. Can use glucose tablets/4, four ounces of pop or juice equal to 15 G of carbohydrate. Bloodglucose should be 100 mg/dl or higher when driving. d. ADA glucose goals for age and medical complexity reviewed e. Patient questions addressed 2. Activity/exercise: Encouraged to start any form of physical activity. Start low level and increase slowly to a minimal goal of 150 minutes/week. Limit activity to what is allowed by other issues such as cardiac, pulmonary or orthopedic restrictions. 3.Standards of care: Reminded to have an annual dilated eye exam, A1C every 3 months, urine testing for microalbumin once/year, check feet daily and report any cuts or sores that do not appear to be healing. 4. Meter: Plan to check blood glucose: Please check blood glucose levels 4 times/day. Back toback meals reveal effectiveness of bolus dosing.5. Return [...] requested at the time of your visit. Feb,Insulin long-term use (ICD-10 - Z79.4) Feb,ietary counseling and surveillance (ICD-10 - Z71.3)Maintaining a healthful weight material was published see above Feb,HTN (hypertension) (ICD-10 - I10)High blood pressure material was published on antihypertensive- f/u with pcp for further recommendation. Feb,Hyperlipidemia (ICD-10 - E78.5)Managing your cholesterol material was published 09/03 ldl 63 at target/trig 216-on statin Feb,MI 36.0-36.9,adult (ICD-10 - Z68.36)Eating healthy: tips to make it easier material was published [employer] Other [id number] Miscellaneous Notes* Telephone Encounter - Yohana Keller LPN - 02/15/2023 9:52 AM EST Patient via [employer] requesting refill of [facility]aine [facility] [place] [facility] Telephone encounter Note* Telephone Encounter - Yohana Keller LPN - 02/15/2023 9:52 AM EST Patient via [employer] requesting refill of L[facility]ocaine to [facility] Miscellaneous Notes* Telephone Encounter - Yohana Keller LPN - 02/15/2023 9:51 AM EST Patient via [employer] requesting refill of Meclizine to [place] [facility] documented in this [facility]01-04-2024 Telephone encounter Note* Telephone Encounter - Yohana Keller LPN - 02/15/2023 9:51 AM EST Patient via [employer] requesting refill of Meclizine to [place] [facility] [employer]11-20-2023 Evaluation note* Encounter Date Diagnosis Assessment Notes Treatment Notes Treatment Clinical Notes Dec, Secondary diabetes (ICD-10 - E13 .9) Dec,Type 2 diabetes mellitus (ICD-10 - E11.9) [employer] Other 10-16-2023 Evaluation note* Encounter Date Diagnosis Assessment Notes Treatment Notes Treatment Clinical Notes Nov, Secondary diabetes (ICD-10 - E13 .9) Diabetes and foot care material was published, [...] of diabetes, progressive beta cell , concepts ofbasal/bolus/corrective insulin requirements. Basal: The goal is fasting blood glucose of 90-130mg. If fasting blood glucose starts to run under 100mg 3x's/ week, decrease dose by 10%. Bolus: The goalis to hold the blood glucose level steady meal to meal. If pt. is going to have increased physical activity after a meal, decrease the schedule meal dose prior to the activity by 30-50%. If pt. skipsa meal do not take this dose. Correction: The goal is to correct an elevated glucose back into the 100-150mg range b. Nutrition: Concepts of healthy diet reviewed, encouraged to decrease saturated fat in diet and increase non-starchy vegetables and fruits in diet. BMI: Pt. needs to select one smallchange to decrease caloric intake or increase physical activity to help decrease weight. c. Correct treatment of hypoglycemia, carry a glucose source at all times on your person, in vehicles, and at bedside. Can use glucose tablets/4, four ounces of pop or juice equal to 15 G of carbohydrate. Bloodglucose should be 100 mg/dl or higher when driving. d. ADA glucose goals for age and medical complexity reviewed e. Patient questions addressed 2. Activity/exercise: Encouraged to start any form of physical activity. Start low level and increase slowly to a minimal goal of 150 minutes/week. Limit activity to what is allowed by other issues such as cardiac, pulmonary or orthopedic restrictions. 3.Standards of care: Reminded to have an annual dilated eye exam, A1C every 3 months, urine testing for microalbumin once/year, check feet daily and report any cuts or sores that do not appear to be healing. 4. Meter: Plan to check blood glucose: Please check blood glucose levels 4 times/day. Back toback meals reveal effectiveness of bolus dosing.5. Return [...] requested at the time of your visit. Nov,Insulin long-term use (ICD-10 - Z79.4) Nov,ietary counseling and surveillance (ICD-10 - Z71.3)Maintaining a healthful weight material was published see above Nov,HTN (hypertension) (ICD-10 - I10)Managing high blood pressure material was published on antihypertensive- f/u with pcp for further recommendation. Nov,Hyperlipidemia (ICD-10 - E78.5)Managing your cholesterol material was published 09/03 ldl 63 at target/trig 216-on statin Nov,MI 36.0-36.9,adult (ICD-10 - Z68.36) Discussed weight management referral, pt declines. Nov,Other09/03 gfr >60; ma wnl [employer] Other 07-17-2023 Evaluation note* Encounter Date Diagnosis Assessment Notes Treatment Notes Treatment Clinical Notes Aug, Secondary diabetes (ICD-10 - E13 .9) Diabetes and foot care material was published, Diabetes and exercise material was published 1. Controlled, secondary diabetes with A1c of 6.6% 2. Blood glucose levels improved. Dexcom g6 cgm download 08/15/22-08/28/22: Avg glucose 165. >250-1%. >180- 24%, 70-180-75%, <70-0%, <54-<1%. CV 19. Reviewed download [...] diabetes, progressive beta cell , concepts of basal/bolus/corrective insulin requirements. Basal: The goal is fasting [...] c. Correct treatment of hypoglycemia, carry a glucosesource at all times on your person, in vehicles, and at bedside. Can use glucose tablets/4, four ounces of pop or juice equal to 15 G of carbohydrate. Blood glucose should be 100 mg/dl or higher whendriving. d. ADA glucose goals for age and [...] requested at the time of your visit. Aug,Insulin long-term use (ICD-10 - Z79.4) Aug,ietary counseling and surveillance (ICD-10 - Z71.3)Maintaining a healthful weight material was published see above Aug,HTN (hypertension) (ICD-10 - I10)Managing high blood pressure material was published on antihypertensive- f/u with pcp for further recommendation. Aug,Hyperlipidemia (ICD-10 - E78.5)Managing your cholesterol material was published 01/03 ldl 62 at target-on statin Aug,MI 34.0-34.9,adult (ICD-10 - Z68.34)Deciphering the nutrition facts label material was published [employer] Other 04-12-2023 Evaluation note* Encounter Date Diagnosis Assessment Notes Treatment Notes Treatment Clinical Notes May, Secondary diabetes (ICD-10 - E13 .9) Diabetes and foot care material was published 1. Uncontrolled, secondary diabetes with A1c of 8.1% 04/26/22. 2. Blood glucose levels improving, remain above target. dexcom g6 cgm download 05/11/22-05/24/22: Avg glucose 207. >250-15%. >180-54%, 70-180-31%, <70-0%, <54-0%. CV 23. Reviewed download with pt, glucoe above target fasting am; postprandial/between meals, will modify basal/icr/corrective scale- see above. Reviewed with pt target [...] diabetes, progressive beta cell , concepts of basal/bolus/corrective insulin requirements. Basal: The goal is fasting [...] c. Correct treatment of hypoglycemia, carry a glucosesource at all times on your person, in vehicles, and at bedside. Can use glucose tablets/4, four ounces of pop or juice equal to 15 G of carbohydrate. Blood glucose should be 100 mg/dl or higher whendriving. d. ADA glucose goals for age and [...] Prescriptions: Refill request for Humalog sent to [facility] in [place] 05/24/22 7. Prescriptions will not be filled unless you are compliant with follow up appointments or have a follow appointment scheduled as per ordered by your provider. Refills should be requested at the time of your visit. May,Insulin long-term use (ICD-10 - Z79.4) May,ietary counseling and surveillance (ICD-10 - Z71.3)Maintaining a healthful weight material was published see above May,HTN (hypertension) (ICD-10 - I10)Managing high blood pressure material was published on antihypertensive- f/u with pcp for further recommendation. May,Hyperlipidemia (ICD-10 - E78.5)Managing your cholesterol material was published 01/03 ldl 62 at target-on statin May,MI 33.0-33.9,adult (ICD-10 - Z68.33)Eating healthy: tips to make it easier material was published, Deciphering the nutrition facts label material was published [employer] Other 03-15-2023 Evaluation note* Encounter Date Diagnosis Assessment Notes Treatment Notes Treatment Clinical Notes Apr, Secondary diabetes (ICD-10 - E13 .9) 1. Uncontrolled, secondary diabetes with A1c of 8.1% improved from 02/20/22 a1c was 10%. 2. Blood glucose levels improving, remain above target. dexcom g6 cgm download 04/13/22-04/26/22: Avg glucose 216. >250-21%. >180-52%, 70-180-27%, <70-0%, <54-0%. CV 22.9. Reviewed download with pt, glucoe above target postprandial/between meals, will modify basal/icr/corrective scale- see above. Reviewed with pt target [...] diabetes, progressive beta cell , concepts of basal/bolus/corrective insulin requirements. Basal: The goal is fasting [...] c. Correct treatment of hypoglycemia, carry a glucosesource at all times on your person, in vehicles, and at bedside. Can use glucose tablets/4, four ounces of pop or juice equal to 15 G of carbohydrate. Blood glucose should be 100 mg/dl or higher whendriving. d. ADA glucose goals for age and [...] Toujeo sent to pharmacy. Pt was given touSD Motion[employer] x2 sample pens today. 7. Prescriptions will not be filled unless you are compliant with follow up appointments or have a follow appointment scheduled as per ordered by your provider. Refills should be requested at the time of your visit. Apr,Insulin long-term use (ICD-10 - Z79.4) Apr,ietary counseling and surveillance (ICD-10 - Z71.3) see above Apr,HTN (hypertension) (ICD-10 - I10) on antihypertensive- f/u with pcp for further recommendation. Apr,Hyperlipidemia (ICD-10 - E78.5) 01/03 ldl 62 at target-on statin Apr,MI 33.0-33.9,adult (ICD-10 - Z68.33) [employer] Other 01-09-2023 Evaluation note* Encounter Date Diagnosis Assessment Notes Treatment Notes Treatment Clinical Notes Feb, Secondary diabetes (ICD-10 - E13 .9) 1. Uncontrolled, secondary diabetes with A1c of [...] diabetes, progressive beta cell , concepts of basal/bolus/corrective insulin requirements. Basal: The goal is fasting [...] c. Correct treatment of hypoglycemia, carry a glucosesource at all times on your person, in vehicles, and at bedside. Can use glucose tablets/4, four ounces of pop or juice equal to 15 G of carbohydrate. Blood glucose should be 100 mg/dl or higher whendriving. d. ADA glucose goals for age and [...] requested at the time of your visit. Feb,Insulin long-term use (ICD-10 - Z79.4) Feb,ietary counseling and surveillance (ICD-10 - Z71.3) see above Feb,HTN (hypertension) (ICD-10 - I10) on antihypertensive Feb,Hyperlipidemia (ICD-10 - E78.5) 01/03 ldl 62 at target-on statin Feb,MI 32.0-32.9,adult (ICD-10 - Z68.32) [employer] Other 12-05-2022 Evaluation note* Encounter Date Diagnosis Assessment Notes Treatment Notes Treatment Clinical Notes Jan, Secondary diabetes (ICD-10 - E13 .9) Patient in today for review of blood [...] how to count carbs. Pt admits to skippingmeals at times, states she is only able to eat once a day d/t vomiting or diarrhea. Patient has been able to use corrective scale 1:25 before meals tid and taking Toujeo 18 units daily. Dexcom reportdownloaded and discussed with Lisa Phillips APRN. Patient's [...] Corrective scale and Carb Counting and Meal Planningbooklet. Discussed meal planning examples and reviewed use of use of corrective scale and ICR. Strongly encouraged patient to check glucose before meals and bedtime. Pt denies any issues or problems with her Dexcom G6 at this time.Reviewed Dexcom training, [facility] All questions and concerns addressed. Encouraged to follow up for next appointment. 45 minutes was spent on education by Rajni GONZALES, RN. Reviewed cgm download 01/04/22-: Avg glucose 252. >250-48.7%, >180- 88.6%, 70-180-11.4%, <70-0%, <54-0%. CV 22.8%. SD 58. See above recommendations. Malia LOMAS, ALESSIO-C, BC-[facility] [email or web address] Other 12-02-2022 NoteHNO ID: [id number] Author: Pk Grady MD Service: ? Author [...] time. Continue to follow up with her account administrator. - Follow up with ma PRN CC: Diabetes INTERVAL HPI: Had to [...] which included preparing to see the patient, [id number] patient care, completing clinical documentation, obtaining and/or reviewing separately obtained history, performing a medically appropriate examination, counseling and educating the patient/family/caregiver, ordering medications, tests, or procedures, and communicating results to the patient/family/caregiver. Anton Grady MD B surgery Pager: [phone] [facility]12-02-2022 History of Present illness Narrative* Pk [...] time. Continue to follow up with her account administrator. - Follow up with me PRN CC: [...] which included preparing to see the patient, [id number] patient care, completing clinical documentation, obtaining and/or reviewing separately obtained history, performing a medically appropriate examination, counseling and educating the pat ient/family/caregiver, ordering medications, tests, or procedures, and communicating results to thepatient/family/caregiver. Anton Grady MD B surgery Pager: [phone] [facility] Evaluation note* Encounter Date Diagnosis Assessment Notes Treatment Notes Treatment Clinical Notes Dec, Secondary diabetes (ICD-10 - E13 .9) 1. Uncontrolled, secondary diabetes with A1c of [...] diabetes, progressive beta cell , concepts of basal/bolus/corrective insulin requirements. Basal: The goal is fasting blood glucoseof 90-130mg. If fasting blood glucose starts to [...] Patient questions addressed 2. Activity/exercise: Encouraged to startany form of physical activity. Start low level [...] bolus dosing.5. [facility] Contact office if any issues or concerns with patterns of hypoglycemia, hyperglycemia, or diabetes medication issues. 6. Prescriptions: Sent toujoe/humalog/[facility] needles to [facility]. Sent dexcom g6 cgm transmitter/cgm to [facility] [...] with DE for cgm download/log book review. Dec,Insulin long-term use (ICD-10 - Z79.4) Dec,ietary counseling and surveillance (ICD-10 - Z71.3) see above Dec,HTN (hypertension) (ICD-10 - I10) on antihypertensive Dec,Hyperlipidemia (ICD-10 - E78.5) on statin Dec,Hypoglycemia (ICD-10 - E16.2) Pt would greatly benefit from [facility] personal use of CGM device such as a Dexcom g6 with abilityfor high/low alarm feature. Pt. currently using insulin injections >3 times/day with insulin to carb ratio/corrective factor and requires frequent self adjustment of insulin based on carbohydrate intake, physical activity blood glucose monitoring. A CGM would improve ease of access to glucose results and reduce risk of hypoglcyemia/hyperglycemia. Dec,MI 31.0-31.9,adult (ICD-10 - Z68.31) Dec,therThe patient was given a dexcom G6 sensor and transmitter sample at this visit. She was isrrael to download the Dexcom G6 diana and the Dexcom Clarity diana on her phone. Her daughter set up the account for her. She was taught how to apply the sensor using a [employer] device and handouts. She successfully applied the sensor to the back of her left arm and inserted the transmitter. The sensor successfully was linked with the phone. Her Clarity account was linked with the office account using a sharing code. 45 minutes were spent educating the patient by Aramis Palm RN, [facility]. [facility] [employer] Other 10-16-2018 History of Past illness Narrative* Problem Noted DateResolved [id number], Class II, BMI 35-39.9 /[id number] Last Assessment & Plan: PLAN: See plan for encephalopathy documented as of this encounter (statuses as of 01/13/2022) [facility] noteNo InformationNortGuthrie Clinic [employer] Other Evaluation note* Diagnosis Secondary diabetes mellitus (HCC)- Primary Secondary diabetes mellitus without mention of complication, not stated as uncontrolled, or unspecified documented in this encounter [facility] noteNo assessment information availableMercy Health [facility] Work Phone: Evaluation note* Diagnosis Mixed hyperlipidemia [facility]* Diagnosis Secondary diabetes mellitus (CMS-HCC)- Primary Secondary diabetes mellitus without mention of complication, not stated as uncontrolled, or unspecified Necrotizing pancreatitis Acute pancreatitis Mixed hyperlipidemia Essential hypertension, benign documented [facility]* Diagnosis Other acute sinusitis, recurrence not specified- Primary [facility] Diagnosis Onset Date Resolution Status Admit Date BMI 36.0-36.9,adult acuteMarch 2024 2:51pmDietary counseling and surveillanceacuteMarch 2024 2:51pmH/O resection of pancreasacuteMarch 2024 2:51pmHyperlipidemia acuteMarch 2024 2:51pmHypertensionacuteMarch 2024 2:51pmInsulin pump titrationacuteMar 2024 2:51pmLocalized infection of skinacuteApr 2024 2:51pmType 2 diabetes mellitusacuteOur Lady Of [facility] 2024 2:51pm [facility] Work Phone: Evaluation note* Diagnosis Mixed hyperlipidemia documented in this [facility]* Diagnosis Necrotizing pancreatitis- Primary Acute pancreatitis Secondary diabetes mellitus ([facility]-HCC) Secondary diabetes mellitus without mention of complication, not stated as uncontrolled, or unspecified Mixed hyperlipidemia Essential hypertension, benign Encounter for screening mammogram for malignant neoplasm of breast documented in this [facility]* Diagnosis Onset Date Resolution Status Admit Date BMI 35.0-35.9,adult acuteSeptember 2024 2:51pmDietary counseling and surveillanceacute Vania 2024 2:51pmH/O resection of pancreasacuteSept2024 2:51pmHyperlipidemiaacuteSept2024 2:51pmHypertensionacuteSeptember 2024 2:51pmInsulin pump titrationacuteSept2024 2:51pmType 2 diabetes mellitusacuteSept2024 2:51pm [facility] Work Phone: History general Narrative - Reported* Type Description Date Medical History Secondary Diabetes Mellitus Medical HistoryNecrotizing pancreatitisMedical HistoryPancreas tail injury Surgical HistoryCesarean sectionSurgical HistoryHysterectomySurgical History Kidney stone surgerySurgical HistoryPancreas resectionSurgical HistoryPancreas- partial removalSurgical HistorySplenectomyHospitalization Historysee above [employer] Other InstructionsNot on filedocumented in this encounter [facility] SystemInstructionsNot on filedocumented in this encounter [facility] SystemInstructionsNot on filedocumented in this encounter [facility] SystemInstructionsNot on filedocumented in this encounter [facility] SystemInstructionsNot on filedocumented in this encounter [facility] SystemInstructions* Attachments The following attachments cannot be sent through Care Everywhere. * Diabetes and diet (Dominican) documented in this encounterProMedica Health SystemInstructionsNot on file documented in this encounterProMedica Health SystemInstructions* Attachments The following attachments cannot be sent through Care Everywhere. * Sinusitis in adults (Dominican) documented in this encounterProMedica Health SystemInstructionsNot on file documented in this encounterProMedica Health SystemInstructionsNot on file documented in this encounterProMedica Health SystemInstructionsNot on file documented in this encounterProMedica Health SystemInstructionsNot on file documented in this encounterProMedica Health SystemInstructionsNot on file documented in this encounterProMedica Health SystemInstructionsNot on file documented in this encounterProMedica Health SystemInstructionsNot on file documented in this encounterProMedica Health SystemReason for referral (narrative)No reason for referral information availableNorwalk Memorial Hospital Work Phone: Reason for visit NarrativeReferral Dr. Landeros, secondary DM new pt apt with [employer] APPLICATIONS INSTRUCTOR, SIDING STAPLER-C, BC-ADMNorth [email or web address] Other Summary Purpose Family History Relationship Condition Age at Onset Recorded Date/T daron brother Hypertension Unknown daughterHypertensionUnknownfatherHypertensionUnknownDeceasedUnknownDiabetes mellitusUnknownHistory of strokeUnknownNot SpecifiedHypertensionUnknownsister Diabetes mellitusUnknownHypertensionUnknown Relationship Condition Age at Onset Recorded Date/T daron brother Hypertension Unknown daughterHypertensionUnknownfatherHypertensionUnknownDeceasedUnknownDiabetes mellitusUnknownHistory of strokeUnknownmotherHypertensionUnknownsisterDiabetes mellitusUnknownHypertensionUnknown Advance Directives TypeDate RecordedPatient RepresentativeExplanationAdvance Directive(s)11/09/2017 4:21 PMSIGNED Advance Directive Response Recorded Date/ Time Advance Directives No December 1:07pm Advance Directive Response Recorded Date/ Time Advance Directives No December 2:07pm Chief Complaint and Reason for Visit Chief Complaint Admit Date 3 month November 04, 2024 2:51pm Reason for Visit Admit Date BMI 35.0-35.9,adult November 04, 2024 2:51pm Dietary counseling and surveillance Oct 2:51pm H/O resection of pancreas October 2:51pm Hyperlipidemia November 04, 2024 2:51pm Hypertension November 04, 2024 2:51pm Insulin pump titration November 04 025 2:51pm Type 2 diabetes mellitus November 04, 2024 2:51pm Chief Complaint Dm 3 Month F/U DM Chief Complaint Admit Date 3 month/ DEXCOM April 14, 2024 2:51 pm Reason for Visit Admit Date BMI 36.0-36.9,adult April 14, 2024 2:51 pm Dietary counseling and surveillance [facility] 2024 2:51pm H/O resection of pancreas April 14 2:51pm Hyperlipidemia April 14, 2024 2:51 pm Hypertension April 14, 2024 2:51 pm Insulin pump titration April 14, 2024 2 :51pm Localized infection of skin April 14, 2 025 2:51pm Type 2 diabetes mellitus April 14, 2024 2:51pm Chief Complaint Admit Date 3 month November 04, 2024 2:51pm Reason for Visit Admit Date BMI 36.0-36.9,adult November 04, 2024 2:51pm Dietary counseling and surveillance Oct 2:51pm H/O resection of pancreas October 2:51pm Hyperlipidemia November 04, 2024 2:51pm Hypertension November 04, 2024 2:51pm Insulin pump titration November 04, 2 025 2:51pm Type 2 diabetes mellitus November 04, 2024 2:51pm Reason for Visit Admit Date BMI 35.0-35.9,adult November 04, 2024 2:51pm Dietary counseling and surveillance Oct 2:51pm H/O resection of pancreas October 2:51pm Hyperlipidemia November 04, 2024 2:51pm Hypertension November 04, 2024 2:51pm Insulin pump titration November 04 025 2:51pm Type 2 diabetes mellitus November 04, 2024 2:51pm Additional Source Comments INFORMATION SOURCE (unrecogn ized section and content) DATE CREATED AUTHOR 12/08/2017 [facility] DATE CREATED AUTHOR AUTHOR'S ORGANIZ ATION 11/24/2018 [facility] DATE CREATED AUTHOR AUTHOR'S ORGANIZ ATION 09/02/2020 [facility] DATE CREATED AUTHOR AUTHOR'S ORGANIZ ATION 01/13/2022 [facility] DATE CREATED AUTHOR AUTHOR'S ORGANIZ ATION 05/07/2022 [facility] DATE CREATED AUTHOR AUTHOR'S ORGANIZ ATION 10/22/2024 [facility] DATE CREATED AUTHOR AUTHOR'S ORGANIZ ATION 11/14/2024 [facility] REASON FOR VISIT (unrecogniz ed section and content) ReasonCommentsDiabetesReasonCommentsMed RefillReasonOnset DateCommentsMed Refill 4ReasonOnset DateCommentsMed [id number] Check upReasonOnset DateCommentsMed [id number] DateCommentsMed [id number] ExamMedicare wellness Source Comments (unrecognize d section and content) In the event this informatio n is protected by the Federal Confidentiality of Alcohol and Drug Abuse Patient Records regulations: The Federal rules restrict any use of the information to criminally investigate or prosecute any alcohol or drug abuse patient.[facility] Care Teams (unrecognized sec tion and content) Team Status: Active Member Role Status Dates Drake Shaw MD Primary Care Provider Active Team Status: Inactive Member Role Status Dates Drake Shaw MD Primary Care Provider Active Start: November 04, 2024 End: November 04, 2024Sylvia Hutchins ProviderActiveStart: November 04, 2024 End: November 04, 2024Team MemberRelationshipSpecialtyStart DateEnd Date Samia Payton [address] [place] [address] PCP - [facility] Xpqjqpjv81/12/18 Team Status: Active Member Role Status Dates Samia Landeros MD Primary Care Provider Active Team Status: Inactive Member Role Status Dates Boy Phillips APRN Attending Provider Active Start: March 12, 2023 End: March 12, 2023 Team Status: Inactive Member Role Status Dates Samia Landeros MD Primary Care Provide r, Attending Provider Active Start: March 12, 2023 End: March 12, 2023Team MemberRelationshipSpecialtyStart DateEnd Date Samia Landeros MD [address] [place] [address] PCP - [facility] Jftbzkxe01/11/18Team MemberRelationshipSpecialtyStart Date End Date Samia Landeros MD [address] [place] [address] PCP - [facility] Mcllbtsn33/11/18Team MemberRelationshipSpecialtyStart Date End Date Samia Landeros MD [address] [place] [address] PCP - [facility] Lyszkmjh54/11/18Team MemberRelationshipSpecialtyStart Date End Date Samia Landeros MD [address] [place] [address] PCP - [facility]11/22/17Team MemberRelationshipSpecialtyStart Date End Date Samia Landeros MD [address] [place] [address] PCP - [facility]11/22/17Team MemberRelationshipSpecialtyStart Date End Date Samia Landeros MD [address] [place] [address] PCP - [facility]11/22/17am MemberRelationshipSpecialtyStart Date End Date Samia Landeros MD [address] [place] [address] PCP - [facility]11/22/17Te MemberRelationshipSpecialtyStart Date End Date Samia Landeros MD [address] [place] [address] [facility] - [facility]11/22/17 MemberRelationshipSpecialtyStart Date End Date Samia Landeros MD [address] [place] [address] PCP - [facility]11/22/17Te MemberRelationshipSpecialtyStart Date End Date Samia Landeros MD [address] [place] [address] PCP - [facility]11/22/17 Team Status: Inactive Member Role Status Dates Samia Landeros MD Primary Care Provider Active Start: April 14, 2024 End: April 14, 2024Boy Phillips APRNAttucker ProviderActiveStart: April 14, 2024 End: April 14, 2024Team MemberRelationshipSpecialtyStart DateEnd Date Samia Landeros MD [address] [place] [address] PCP - [facility]11/22/17 MemberRelationshipSpecialtyStart Date End Date Samia Landeros MD [address] Provider retired 05/13/24 [place] [address] PCP - [facility]11/22/17 MemberRelationshipSpecialtyStart Date End Date Samia Landeros MD [address] Provider retired 05/13/24 [place] [address] PCP - [facility]11/22/17 MemberRelationshipSpecialtyStart Date End Date Samia Landeros MD [address] Provider retired 05/13/24 [place] [address] PCP - [facility]11/22/17 MemberRelationshipSpecialtyStart Date End Date Drake Shaw MD [address] [place] [address] PCP - [facility]09/17/24Te MemberRelationshipSpecialtyStart Date End Date Drake Shaw MD [address] [place] [address] PCP - [facility]09/17/24 Team Status: Inactive Member Role Status Dates Drake Shaw MD Primary Care Provider Active Start: November 04, 2024 End: November 04, 2024Tondra K Mapus , APRNAttending ProviderActiveStart: November 04, 2024 End: November 04, 2024 Team Status: Inactive Member Role Status Dates Boy Phillips APRN Attending Provider Active Start: November 04, 2024 End: November 04, 2024Team MemberRelationshipSpecialtyStart DateEnd Date Drake Shaw MD [address] [place] [address] PCP - GeneralInternal Medicine09/17/24 Team Status: Active Member Role Status Dates Drake Shaw MD Primary Care Provider Active Goals (unrecognized section and content) Goals may [...] BE BASED ON THE PRIMARY CLINICAL RECORDS. [employer] [facility]. provides no warranty or guarantee of the accuracy or completeness of information in this document.
== END 2024-12-22 14:18 | disposition home or self-care (01) ==
LOC: MAMMO 14:18
PROVIDERS: PCP Student in an Organized Health Care Education/Training Program; Visit Provider Student in an Organized Health Care Education/Training Program
DX: Z12.31 Encounter for screening mammogram for malignant neoplasm of breast (principal)
CPT/HCPCS: 77063; 77067

== ENCOUNTER 2025-01-14 12:09 | Outpatient (OUT) | payer MEDICARE, SELFPAY ==
--- OUTSIDE RECORDS SUMMARY | 2025-01-14 11:15 | XMS_ITS | Encounter Summary ---
Author Organization [employer] [facility] tem Address [facility]-[id number] [address] [place] [address] Care Team Providers Care Flight Information Expediter Name Role Phone Drake Morrissey MD Primary Care Provider [phone] Reason for Referral * Cardiology (Routine) - Pending ReviewSpecialtyDiagnoses / ProceduresReferred By ContactReferred To Contact Diagnoses Orthostatic hypotension Essential hypertension, benign Procedures Echo limited W/O contrast Drake Morrissey MD [address] [place] [address] Phone: tel: fax: Referral IDStatusReasonStart DateExpiration DateVisits RequestedVisits [id number] Reason for Visit * ReasonCommentsHypotension Encounter Details DateTypeDepartmentCare Team (Latest Contact Info)Fypqydxtmhu06/03/2025 11:15 AM ESTOffice Visit [facility] [address] [place] [phone] Drake Morrissey MD [address] [place] [address] Orthostatic hypotension (Primary Dx); Essential hypertension, benign Social History Tobacco UseTypesPacks/DayYears UsedDateSmoking Tobacco: NeverSmokeless Tobacco: NeverAlcohol UseStandard Drinks/WeekCommentsNot Currently0 (1 standard drink = 0.6 oz pure alcohol)occasionalSocial Connection and Isolation PanelAnswerDate RecordedIn a typical week, how many times do you talk on the phone with family, friends, or neighbors?More than three times a week03/23/2020How often do you get together with friends or relatives?Twice a week03/23/2020How often do you attend worship or congregational services?Never03/23/2020o you belong to any clubs or organizations such as worship groups, unions, fraternal or athletic groups, or school groups?Yes03/23/2020How often do you attend meetings of the clubs or organizations you belong to?Never03/23/2020re you , , , , never , or living with a partner?Never nxvlevk9403/23/2020 Overall Financial Resource Strain (CARDIA)AnswerDate RecordedHow hard is it for you to pay for the very basics like food, housing, medical care, and heating?Not very hard10/18/2024PHQ-2AnswerDate RecordedTotal Nyxpu05803/17/2024Finhuntsman [facility] [place] of Occupational Health - Occupational Stress QuestionnaireAnswerDate RecordedDo you feel stress - tense, restless, nervous, or anxious, or unable to sleep at night because yourmind is troubled all the time - these days?Not at all 03/23/2020xercise Vital SignAnswerDate RecordedOn average, how many days per week do you engage in moderate to strenuous exercise (like a brisk walk)?5 days 03/23/2020On average, how many minutes do you engage in exercise at this level? 60 min03/23/2020RAPARE - TransportationAnswerDate RecordedIn the past 12 months, has lack of transportation kept you from medical appointments or from getting medications?No10/18/2024In the past 12 months, has lack of transportation kept you from meetings, work, or from getting things needed for daily living?No10/18/2024UDIT-CAnswerDate RecordedQ1: How often do you have a drink containing alcohol?Never01/14/2025Q2: How many drinks containing alcohol do you have on a typical day when you are drinking?Patient does not drink 01/14/2025Q3: How often do you have six or more drinks on one occasion?Never 01/14/2025Housing InstabilityAnswerDate RecordedAre you worried or concerned that in the next two months you may not have stable housing that you own, rent or stay in as a part of a household?No10/18/2024hildcareAnswerDate RecordedDo problems getting child support officer make it difficult for you to work or study?No 03/23/2020mploymentAnswerDate RecordedDo you need help finding a local career center and/or a training program?No03/23/2020Hunger ScreeningAnswerDate Recorded Within the past 12 months we worried whether our food would run out before we got money to buy more.Never True01/14/2025Within the past 12 months the food we bought just didn't last and we didn't have money to get more.Never True 01/14/2025Purpose - LifeAnswerDate RecordedI have a purpose and direction in my life.Somewhat Agree03/23/2020ducationAnswerDate RecordedWhat is the highest level of school you have completed or the highest degree you have received?12th grade03/23/2020CommentsNoSex and Gender InformationValueDate RecordedSex Assigned at BirthNot on fileLegal LvzTodqyd92/08/2018 9:48 AM EDTGender Identity Not on fileSexual OrientationNot on filedocumented as of this encounter Last Filed Vital Signs Vital SignReadingTime TakenCommentsBlood Rijizrvi653/6801/14/2025 11:09 AM EST Rvyvh748301/14/2025 11:09 AM ESTTemperature--Respiratory Ifhv830303/17/2024 11:09 AM ESTOxygen Uigyqiirog83%01/14/2025 11:09 AM ESTInhaled Oxygen Concentration-- Sxllco44.7 kg (200 lb)01/14/2025 11:09 AM ESTHeight--Body Mass Index35.71 10/20/2024 3:06 PM EDTdocumented in this encounter Functional Status * AUDIT-C ScoreAnswerDate of BbbdkgukssIamcai940/04/2024 11:11 AM Kiana Velasquez LPN * QuestionAnswerDate of AssessmentAuthorQ1: How often do you have a drink containing alcohol?Never01/14/2025 11:11 AM Kiana Velasquez LPNQ2: How many drinks containing alcohol do you have on a typical day when you are drinking?Patient does not drink01/14/2025 11:11 AM Kiana Velasquez LPNQ3: How often do you have six or more drinks on one occasion?Never01/14/2025 11:11 AM Kiana Velasquez LPN documented as of this encounter Plan of Treatment DateTypeDepartmentCare Team (Latest Contact Info)Msolipgzatt98/08/2026 1:45 PM ESTOffice Visit [facility] [address] [place] [phone] Drake Morrissey MD [address] [place] [phone] 04/30/2025 9:00 AM EDTOffice Visit [facility] [address] [place] [phone] Drake Morrissey MD [address] [place] [address] 10/21/2025 3:30 PM EDTOffice Visit [facility] [address] [place] [phone] Drake Morrissey MD [address] [place] [address] NameTypePriorityAssociated DiagnosesOrder ScheduleCortisolLabRoutine Orthostatic hypotension 1 Occurrences starting 01/14/2025 until 01/14/2026Echo limited W/O contrast EchocardiographyRoutine Orthostatic hypotension Essential hypertension, benign Expected: 01/14/2025, Expires: 01/14/2026documented as of this encounter Visit Diagnoses Diagnosis Orthostatic hypotension- Primary Essential hypertension, benign documented in this encounter Additional Health Concerns AssessmentNoted TimePHQ-9 Depression Total Score: 11:11 AM ESTA Body Mass Index follow-up plan has been documented for the wezfixv7710/20/2024 3:34 PM EDTdocumented as of this encounter Care Teams Team MemberRelationshipSpecialtyStart [place] [address] [place] [address] PCP - GeneralInternal Medicine09/17/24documented as of this encounter
--- OUTSIDE RECORDS SUMMARY | 2025-01-14 12:13 | XMS_ITS | Encounter Summary ---
Author Organization [employer] s tem Address [facility] [id number] [address] [place] [address] Care Team Providers Care Account Development Manager Name Role Phone Drake Morrissey MD Primary Care Provider [phone] Encounter Details DateTypeDepartmentCare Team (Latest Contact Info)Zqtlcgaakgd37/03/2025Travel Social History Tobacco UseTypesPacks/DayYears UsedDateSmoking Tobacco: NeverSmokeless Tobacco: NeverAlcohol UseStandard Drinks/WeekCommentsNot Currently0 (1 standard drink = 0.6 oz pure alcohol)occasionalSocial Connection and Isolation PanelAnswerDate RecordedIn a typical week, how many times do you talk on the phone with family, friends, or neighbors?More than three times a week03/23/2020How often do you get together with friends or relatives?Twice a week03/23/2020How often do you attend confucianism or confucianism services?Never1Do you belong to any clubs or organizations such as confucianism groups, unions, fraternal or athletic groups, or school groups?Yes03/23/2020How often do you attend meetings of the clubs or organizations you belong to?Never03/23/2020re you , , , , never , or living with a partner?Never tgqucpt1603/23/2020 Overall Financial Resource Strain (CARDIA)AnswerDate RecordedHow hard is it for you to pay for the very basics like food, housing, medical care, and heating?Not very hard10/18/2024PHQ-2AnswerDate RecordedTotal Oeprq42003/17/2024[facility] [place] [facility] - Occupational Stress QuestionnaireAnswerDate [...] part of a household?No10/18/2024hildcareAnswerDate RecordedDo problems getting early childhood educator aide make it difficult for you to work [...] a purpose and direction in my life.Somewhat Agree1EducationAnswerDate RecordedWhat is the highest level of school you have completed or the highest degree you have received?12th grade1CommentsNoSex and Gender InformationValueDate RecordedSex Assigned at BirthNot on fileLegal YgpMqbkgp43/08/2018 9:48 AM EDTGender Identity Not on fileSexual OrientationNot on filedocumented as of this encounter Functional Status * AUDIT-C ScoreAnswerDate of SedomtcdmiFewqog069/03/2025 11:11 AM Kiana Velasquez LPN * QuestionAnswerDate [...] Plan of Treatment DateTypeDepartmentCare Team (Latest Contact Info)Clbawrgxriw65/08/2026 1:45 PM ESTOffice Visit [facility] [address] [place] [address] [phone] Drake Morrissey MD [address] [place] [address] [phone] 04/30/2025 9:00 AM EDTOffice Visit [facility] [address] [place], [place] [address] [address] Drake Morrissey MD [address] [place] [address] [phone] 10/21/2025 3:30 PM EDTOffice Visit [facility] [address] [place] [address] [phone] Drake Morrissey MD [address] [place] [address] documented as of this encounter Visit Diagnoses Not on filedocumented in this encounter Additional Health Concerns AssessmentNoted TimePHQ-9 Depression Total Score: 11:11 AM ESTA Body Mass Index follow-up plan has been documented for the jcerpso3210/20/2024 3:34 PM EDTdocumented as of this encounter Care Teams Team MemberRelationshipSpecialtyStart DateEnd Date Drake Morrissey MD [address] [place] [address] PCP - GeneralInternal Medicine09/17/24documented as of this encounter
--- OUTSIDE RECORDS SUMMARY | 2025-01-14 12:13 | XMS_ITS | Clinical Summary ---
Author Organization [facility] Address [address] [place] [address] Care Team Providers Care Hand Grinder Name Role Phone Ash Rinaldi Primary Care Provider [phone] Allergies Active AllergyReactionsCriticalityNoted DateCommentsLorazepamOther: See Comments 11/11/2017 Becomes combative/ delirious GlhttabBhiycvue09/23/2018 Swelling of the tongue Medications MedicationSigDispense QuantityRefillsLast [...] tablet 4 mg daily with breakfast. 1Active hxsixn-ugdswwqe-hkbvcwn (ZENPEP) 40,000-126,000- 168,000 unit delayed release capsule [...] Discussed with staff ProblemNoted DateDiagnosed DateSecondary diabetes aeyaulyc51/08/2021 Assessment & Plan (08/25/2020 3:18 PM EDT): Assessment: s/p partial pancreas removal Is on oral medication No recent A1c on file Daily blood sugars are stated to be between 110-130 Myofascial pain avboevjg23/11/2020Gastroesophageal reflux pongtqv2303/03/2019 Assessment & Plan (08/25/2020 3:17 PM EDT): Assessment: States is well controlled with medication and denies any recent exacerbations Follows with PCP and GI Pancreas tail ocgwiu0507/31/2018Pancreatitis, dbmthaovexn16/05/2018 Assessment & Plan (08/25/2020 3:13 PM EDT): Assessment: states occurred in 10/2017 Treated with partial pancreas removal, splenectomy and cholecystectomy Follows with Dr. Grady Is on supplemental enzymes Malnutrition of moderate crddfg1212/29/2017Obesity, Class I, BMI 30-34.91 Assessment & Plan (08/25/2020 3:19 PM EDT): Assessment: Body mass index is 31.26 kg/m??. Iron deficiency mizvhn8811/27/2017 Assessment & Plan (08/25/2020 3:19 PM EDT): Assessment: states has been well controlled with oral iron supplement No recent iron infusion or blood transfusion - history of blood transfusions in ~ 2018 without stated issue Malnutrition of mild vadejm3211/06/2017 Assessment & Plan (11/06/2017 12:06 PM EDT): [...] pancreatitis PLAN: - Lung protective ventilation Acute sptqkxltzdgnyi32/24/2018 Assessment & Plan (08/25/2020 3:16 PM EDT): [...] 'necrotizing pancreatitis' and 'c difficile' C. difficile ckiasiaf41/24/2018 Assessment & Plan (11/06/2017 12:07 PM EDT): Assessment: PCR positive but EIA negative (11/05). C/b ileus. PLAN: - Appreciate ID recommendations - IV flagyl, PO and rectal vanc Assessment & Plan (11/05/2017 2:00 PM EDT): Assessment: C/b ileus PLAN: - IV flagyl, PO and rectal vanc - ID consult Tfyibbssdrpzu72/24/2018 Assessment & Plan (11/06/2017 12:08 PM EDT): PLAN: - Continue D5 water infusion - Trend BMP Assessment & Plan (11/05/2017 2:00 PM EDT): PLAN: - Continue D5 water infusion - Trend BMP Necrotizing izgekowcctry54/23/2018 Assessment & Plan (11/06/2017 12:08 PM EDT): [...] if unable to start TF d/t ileus Zrbzfspkqwoy92/22/2018 Overview (11/05/2017): Added automatically from request for surgery [id number] Ploqobujwamb37/21/2018 Assessment & Plan (08/25/2020 3:17 PM EDT): Assessment: States is well controlled with medication Follows with PCP Denies any chest pain, shortness of breath or any palpitations. Denies any known prior [place], CVA or stent placement. Resolved Problems ProblemNoted DateDiagnosed DateResolved ZbaxQihwv53Obesity, Class II, BMI 35-39.910/Delirium Assessment & Plan [...] drink = 0.6 oz pure alcohol)PHQ-2AnswerDate RecordedPHQ-2 qdjke380rea Deprivation IndexAnswerDate RecordedNational Score (1-100), lower number is lower riskNot on file01/20/2020State Score (1-10), lower number is lower riskNot on file01/20/2020Data from: https://www.neighborhoodatlas.medicine.[facility].edu/. Last address used for calculationNot on file01/20/2020CommentsNoSex and Gender Information ValueDate RecordedSex Assigned at BirthNot on fileLegal GpiPikpvk54/22/2018 2:30 PM EDTGender IdentityNot on fileSexual OrientationNot on file Last Filed Vital Signs Vital SignReadingTime TakenCommentsBlood Xtrdbyud486/7107 9:30 AM EDT Wyxhx8004 9:30 AM BZHXwqflfewnah74.2 ??C (97.2 ??F)08/31/2020 9:30 AM EDTRespiratory Zihi1570 9:30 AM EDTOxygen Uthbblamhg04%08/31/2020 9:30 AM EDTInhaled Oxygen Concentration--Asqmbu80.9 kg (185 lb)08/31/2020 7:48 AM EDT Bztddp900.8 cm (5' 4.5 )08/31/2020 7:48 AM EDTBody Mass Index31.26008/31/2020 7:48 AM EDT Plan of Treatment Health MaintenanceDue DateLast DoneCommentsDiabetic Foot Exam1967Dilated Retinal Exam1967Urine Albumin:Creatinine Ratio1967Annual PCP Team Chronic Disease Visit1975Anxiety Hwnrehcmt82/28/1976Depression Screening 1975Hepatitis C Olikujcph02/28/1976CT Qhsvomqbaxbm35/28/2003Cologuard (FIT-DNA)2002Fecal Occult Blood03/11/20021539Bozdvvophxbsz74/28/2003Shingrix Vaccine (1 of 2)2007LDL Vpozrnsjzhz93Pneumococcal Vaccine: 50+ (2 of 2 - PCV), 07/16/20185472Hlwuojdmspr54/20/2022 08/31/2020olorectal Cancer Htowysemy03/20/2022one Density Alxucymnt44/28/2023 NnX8U61, 09/23/2020, 03/31/2020, Additional history exists Mammogram Eegkxcqni12/, 10/23/2019, 04/03/2019, Additional history existsAdvance Directive Uasrnecyud08/01/2025Medicare Advantage Annual Wellness Visit02/13/2024ovid-19 Vaccine (1 - season)2024Influenza Vaccine (#1)/02/2019, 11/03/2018, 12/04/2017DTaP,Tdap,Td Vaccine (2 - Td or Tdap)/09/2016RSV Vaccine (1 - 1-dose 75+ series)2032 Procedures Procedure NamePriorityDate/TimeAssociated DiagnosisCommentsCOLONOSCOPYRoutine 08/31/2020 8:34 AM EDT from Last 3 Months or Most Recently Relevant to Health Maintenance Results * COLONOSCOPY (08/31/2020 8:34 AM EDT)ComponentValueRef RangeTest MethodAnalysis TimePerformed AtPathologist SignatureTranscriptCedar County Memorial Hospital Gastrointestinal Endoscopy Patient Name: Nichole [...] the sigmoid colon, removed ? with a BookThatDoco cold forceps. Resected and retrieved. ? - [...] DODIGESTIVE DISEASE REGIONALFinal ResultPerforming OrganizationAddressCity/State/ZIP CodePhone Number [facility] [address] [place] [address] [facility] from Last 3 Months or Most Recently Relevant to Health Maintenance Insurance Advance Directives TypeDate RecordedPatient RepresentativeExplanationAdvance Directive(s)11/09/2017 4:21 PMSIGNED Care Teams Team MemberRelationshipSpecialtyStart DateEnd Date Ash Rinaldi [address] [place] [address] PCP - GeneralFamily Jvcrtwky43/12/18
--- OUTSIDE RECORDS SUMMARY | 2025-01-14 12:13 | XMS_ITS | Clinical Summary ---
Author Organization [employer] Address [facility] [id number] [address] [place] [address] Care Team Providers Care Water Mechanic Name Role Phone Drake Morrissey MD Primary Care Provider [phone] Allergies Active AllergyReactionsCriticalityNoted DateCommentsCodeineOther (See Comments), FmldaavlSrsh30/20/2018 Swelling of the tongue Swelling of tongue WhobbibrsFryhGij97/30/2018 Becomes combative/ delirious Medications MedicationSigDispense QuantityRefillsLast FilledStart [...] by mouth in the morning.Active DEXCOM G6 CLEANER AND TRIMMER misc 01/24/2022ctive DEXCOM G6 SENSOR device 01/24/2022ctive [...] capsule (5,000 Units total).06/18/2023ctive T:SLIM X2 CONTROL-IQ [facility] 08/20/2023ctive ACCU-CHEK GUIDE L1-L2 CTRL MISTY solution 08/15/2023ctive HumaLOG U-100 Insulin 100 unit/mL injection 08/30/2023ctive pantoprazole (PROTONIX) 40 mg EC tablet TAKE [...] for nausea or vomiting. 30 tablet 5Active docusate sodium (STOOL SOFTENER) 100 mg capsule Take 1 capsule (100 mg total) by mouth in the morning and 1 capsule (100 mg total) before bedtime. 180 capsule 5Active ferrous sulfate 325 (65 FE) MG tablet Take 1 tablet (325 mg total) by mouth in the morning. 90 tablet 5Active tiZANidine (ZANAFLEX) 4 mg tablet TAKE 1 TABLET (4 MG TOTAL) BY MOUTH EVERY 8 (EIGHT) HOURS NEEDED FOR MUSCLE SPASMS 270 tablet 5Active fexofenadine-pseudoephedrine (MEGHAN-D 24) 180-240 mg per 24 hr tablet Indications:Other acute sinusitis, recurrence not specifiedTake 1 tablet by mouth before bedtime. 30 tablet 5Active carvediloL (COREG) 12.5 mg tablet Indications:Essential hypertension, benignTake 1 tablet (12.5 mg total) by mouth in the morning and 1 tablet (12.5 mg total) before bedtime. 60 tablet 1115Active carvediloL (COREG) 25 mg tablet TAKE 1 TABLET (25 MG TOTAL) BY MOUTH IN THE MORNING AND BEFORE BEDTIME 180 tablet 304Discontinued(Dose adjustment) amLODIPine (NORVASC) 5 mg tablet Indications:Essential hypertension, benignTake 1 tablet (5 mg total) by mouth in the morning. 90 tablet Discontinued(Patient Stopped On Own) hydroCHLOROthiazide (HYDRODIURIL) 25 mg tablet Indications:Essential hypertension, benignTake 1 tablet (25 mg total) by mouth daily. 90 tablet Discontinued potassium chloride (KLOR-CON M10) 10 MEQ CR tablet Indications:Essential hypertension, benignTake 1 tablet (10 mEq total) by mouth in the morning and 1 tablet (10 mEq total) before bedtime. TAKE 1 TABLET (10 MEQ TOTAL) BY MOUTH IN THE MORNING. 180 tablet 309Discontinued CEPHalexin (KEFLEX) 500 mg capsule Indications:Other acute sinusitis, recurrence not specifiedTake 1 capsule (500 mg total) by mouth in the morning and 1 capsule (500 mg total) before bedtime. D o all this for 5 days. 10 capsule Expired Active Problems ProblemNoted DateDiagnosed DateMyofascial pain pqiabzon58/06/2024Neck pain 08/31/2022Secondary diabetes omihsnkp54/08/2021Necrotizing pancreatitis 08/09/2018Pancreas tail zszmxh0707/31/2018 Encounters DateTypeDepartmentCare MrroXkpcemffkys34/03/2025 11:15 AM ESTOffice Visit [facility] [address] [place] [address] Drake Morrissey MD Orthostatic hypotension (Primary Dx); Essential hypertension, bnwmvg3601/14/20254137Eadkyz18/12/2025 2:00 PM ESTOffice Visit [facility] [address] [place], [place] [address] [phone] Drake Morrissey MD Orthostasis (Primary Dx); Essential hypertension, benign; Secondary diabetes mellitus (CMS-HCC); Other acute sinusitis, recurrence not jkgkpwpyk78/12/2025Orders Only [facility] [address] [place], [place] [address] [phone] Kamla Graff CMA Encounter for screening mammogram for malignant neoplasm of jecnhw0112/23/2024 Dwxkwo2011/10/2024Refill [facility] [address] [place] [address], [place] [phone] Ash Landeros MD 10/31/2024Results [facility] [address] [place] [phone] Drake Morrissey MD CBC auto differential, Thyroid profile includes TSH FT4, Lipid profile, Additional followed-up results: Orders Only [facility] [address] [place] [address], [place] [phone] Kiana Mckeon LPN Essential hypertension, benign; Mixed hyperlipidemia; Secondary diabetes mellitus (CMS-HCC)10/20/2024 3:[address] [facility] [address] [place], [place] [address] [phone] Drake Morrissey MD Necrotizing pancreatitis (Primary Dx); Secondary diabetes mellitus (CMS-HCC); Mixed hyperlipidemia; Essential hypertension, benign; Encounter for screening mammogram for malignant neoplasm of yqwdds3010/18/2024 Arqtui9410/15/2024Refill [facility] [address] [place] [phone] Viktoriya Salvador, FACILITIES MAINTENANCE SUPERVISOR-SIDE FRAMER from Last 3 Months Immunizations ImmunizationAdministration DatesNext WqvMoH3007/16/2018Influenza, Injectable, Mdck, Preservative Free, Quad11/03/2018Influenza, Injectable, Quadrivalent 12/04/2017Influenza, Injectable, quadrivalent (PF)12/14/2019,11/03/2018 Meningococcal Hxqytjrlc64/04/2019Meningococcal SJR7K3310/01/2018Pneumococcal Conjugate 20-liolzf063Pneumococcal Nfnwgmmqeasbsh31/20/2019,07/16/2018 Tdap08/19/2016 Family History Medical HistoryRelationNameCommentsDiabetesFatherRelationNameStatusComments Father Social [...] relatives?Twice a week03/23/2020How often do you attend baptism or caodaism services?Never1Do you belong to any clubs or organizations such as baptism groups, unions, fraternal or athletic groups, or school groups? Yes03/23/2020How often do you attend meetings of the clubs or organizations you belong to?Never03/23/2020re you , , , , never , or living with a partner?Never svsfhjg0703/23/2020Overall Financial Resource Strain (CARDIA)AnswerDate RecordedHow hard is it for you to pay for the very basics like food, housing, medical care, and heating?Not very hard 10/18/2024PHQ-2AnswerDate RecordedTotal Eksau97303/17/2024[facility] [place] of Occupational Health - Occupational Stress QuestionnaireAnswerDate RecordedDo you feel stress - tense, restless, nervous, or anxious, or unable to sleep at night because yourmind is troubled all the time - these days?Not at all03/23/2020 Exercise Vital SignAnswerDate RecordedOn average, how many days per week do you engage in moderate to strenuous exercise (like a brisk walk)?5 days03/23/2020On average, how many minutes do you engage in exercise at this level?60 min 03/23/2020RAPARE - TransportationAnswerDate RecordedIn the past 12 months, has lack of transportation kept you from medical appointments or from getting medications?No10/18/2024In the past 12 months, has lack of transportation kept you from meetings, work, or from getting things needed for daily living?No 10/18/2024UDIT-CAnswerDate RecordedQ1: How often do you have a drink containing alcohol?Never01/14/2025Q2: How many drinks containing alcohol do you have on a typical day when you are drinking?Patient does not drink01/14/2025Q3: How often do you have six or more drinks on one occasion?Never01/14/2025Housing InstabilityAnswerDate RecordedAre you worried or concerned that in the next two months you may not have stable housing that you own, rent or stay in as a part of a household?No10/18/2024hildcareAnswerDate RecordedDo problems getting director of early childhood make it difficult for you to work or study?No03/23/2020mploymentAnswerDate RecordedDo you need help finding a local career center and/or a training program?No03/23/2020Hunger ScreeningAnswerDate RecordedWithin the past 12 months we worried whether our food would run out before we got money to buy more.Never True01/14/2025Within the past 12 months the food we bought just didn't last and we didn't have money to get more.Never True01/14/2025Purpose - LifeAnswerDate RecordedI have a purpose and direction in my life.Somewhat Agree03/23/2020 EducationAnswerDate RecordedWhat is the highest level of school you have completed or the highest degree you have received?12th grade03/23/2020 CommentsNoSex and Gender InformationValueDate RecordedSex Assigned at BirthNot on fileLegal AuiMeague01/08/2018 9:48 AM EDTGender IdentityNot on fileSexual OrientationNot on file Last Filed Vital Signs Vital SignReadingTime TakenCommentsBlood Odatetez584/6801/14/2025 11:09 AM EST Qjwbp580401/14/2025 11:09 AM NMQEbxgbidkzyz91.6 ??C (97.8 ??F)10/16/2023 3:08 PM EDTRespiratory Omjh400103/17/2024 11:09 AM ESTOxygen Bknfqgqrex06%01/14/2025 11:09 AM ESTInhaled Oxygen Concentration--Bbutsa88.7 kg (200 lb)01/14/2025 11:09 AM CNADvslaf444.4 cm (5' 2.75 )10/20/2024 3:06 PM EDTBody Mass Index35.71010/20/2024 3:06 PM EDT Plan of Treatment DateTypeDepartmentCare Team (Latest Contact Info)Askjncnyoyk78/08/2026 1:45 PM ESTOffice Visit [facility] [address] [place], [place] [address] [phone] Drake Morrissey MD [address] [place] [phone] 04/30/2025 9:00 AM EDTOffice Visit [facility] [address] [place] [phone] Drake Morrissey MD [address] [place] [address] 10/21/2025 3:[address] [facility] [address] [place] [phone] Drake Morrissey MD [address] [place] [address] Health MaintenanceDue DateLast DoneCommentsZoster (Shingles) Vaccine (1 of 2) 2007RSV ( or age 60+ yrs) (1 - Risk 60-74 years 1-dose series) 2017Diabetic Foot Exam/02/2022, 04/29/2020Influenza Vaccine /02/2019, 11/03/2018, 11/03/2018, Additional history existsDiabetic Ophthalmology Exam, 12/14/2022Statin Use: Yekgprfg16/02/2026 08/13/2024Fall Risk Btttechtd31/dult BMI Follow Up Plan /09/2024Medicare Annual Wellness Visit/09/2024, 10/16/2023, 10/12/2022, Additional history ulkyngCjjkqakqb14, 12/22/2024, 12/19/2023, Additional history existsAdult BMI Oytoxyweh68/03/2026 01/14/2025Depression Kiylxckhx37Tobacco Mcbprcgim90/03/2026 01/14/2025DTaP,Tdap and Td Vaccines (2 - Td or Tdap) Medical Devices Not on file Procedures Procedure NamePriorityDate/TimeAssociated DiagnosisCommentsMAMM SCREENING BILATERAL W PPMJfoxepe10/10/2025 Encounter for screening mammogram for malignant neoplasm of breast COMPREHENSIVE METABOLIC VMTYKKrhxbga02/19/2025 Essential hypertension, benign HEMOGLOBIN T6FQjnktlw21/19/2025 Secondary diabetes mellitus (CMS-HCC) LIPID XLWLZOMXvaputa49/19/2025 Mixed hyperlipidemia THYROID PROFILE INCLUDES TSH WA0Pyjwmsr72/19/2025 Essential hypertension, benign CBC WITH AUTO KCCUGREKWKEOWovozvx78/19/2025 Essential hypertension, benign HM DIABETES EYE CTHBOeckhjk33/07/2024 9:34 AM ESTfrom Last 3 Months or Most Recently Relevant to Health Maintenance Results * Mammography screening bilateral with CAD (12/22/2024)Anatomical Region LateralityModalityBreastBilateralMammography Narrative Authorizing ProviderResult TypeResult StatusDrake Morrissey MDNEW[facility] MAMMOGRAPHY ORDERABLESFinal Result * Thyroid profile includes TSH FT4 (10/31/2024)Specimen (Source)Anatomical Location / LateralityCollection Method / VolumeCollection TimeReceived Time BloodVenous blood / Whdfabb4510/31/2024 Narrative Authorizing ProviderResult TypeResult StatusDrake Morrissey [facility] BLOOD ORDERABLESFinal ResultPerforming OrganizationAddressCity/State/ZIP CodePhone Number MANUALLY TRANSCRIBED RESULTS * CBC auto differential (10/31/2024)Specimen (Source)Anatomical Location / LateralityCollection Method / VolumeCollection TimeReceived TimeBloodVenous blood / Qxnrokt7810/31/2024 Narrative Authorizing ProviderResult TypeResult StatusDrake Morrissey [facility] BLOOD ORDERABLESFinal ResultPerforming OrganizationAddressCity/State/ZIP CodePhone Number MANUALLY TRANSCRIBED RESULTS * (ABNORMAL) Hemoglobin A1c (10/31/2024)ComponentValueRef RangeTest Method Analysis TimePerformed AtPathologist SignatureExternal Hemoglobin A1C6.3(A)4.5 - 6.2 %MANUALLY TRANSCRIBED RESULTSSpecimen (Source)Anatomical Location / LateralityCollection Method / VolumeCollection TimeReceived TimeBloodVenous blood / Ajdsdtx7010/31/2024 Narrative Authorizing ProviderResult TypeResult StatusDrake Morrissey [facility] BLOOD ORDERABLESFinal ResultPerforming OrganizationAddressCity/State/ZIP CodePhone Number MANUALLY TRANSCRIBED RESULTS * (ABNORMAL) Lipid profile (10/31/2024)ComponentValueRef RangeTest Method Analysis TimePerformed AtPathologist SignatureExternal Uqnfwnyjrpn818<=200 MANUALLY TRANSCRIBED RESULTSExternal Cholesterol:Hdl4.13.3 - 4.4MANUALLY TRANSCRIBED RESULTSExternal Hdl Swbueoyrtzs88(A)40 - 60MANUALLY TRANSCRIBED RESULTSExternal Ldl (Calc)65<=100MANUALLY TRANSCRIBED RESULTSExternal Fzlyxnshrobjj702(A)<=150MANUALLY TRANSCRIBED RESULTSExternal Very Low Mrcbgtujjoe82.0MANUALLY TRANSCRIBED RESULTSSpecimen (Source)Anatomical Location / LateralityCollection Method / VolumeCollection TimeReceived Time BloodVenous blood / Nftigmh1410/31/2024 Narrative Authorizing ProviderResult TypeResult StatusDrake Morrissey [facility] BLOOD ORDERABLESFinal ResultPerforming OrganizationAddressCity/State/ZIP CodePhone Number MANUALLY TRANSCRIBED RESULTS * Comprehensive metabolic panel (10/31/2024)Specimen (Source)Anatomical Location / LateralityCollection Method / VolumeCollection TimeReceived TimeBloodVenous blood / Itzpgfc5110/31/2024 Narrative Authorizing ProviderResult TypeResult StatusDrake CRAWFORD BLOOD ORDERABLESFinal ResultPerforming OrganizationAddressCity/State/ZIP CodePhone Number MANUALLY TRANSCRIBED RESULTS * DIABETES EYE EXAM (12/20/2023 9:34 AM EST) Narrative Authorizing ProviderResult TypeResult StatusScanning Provider ExternalHEALTH MAINTENANCEFinal ResultPerforming OrganizationAddressCity/State/ZIP CodePhone Number MANUALLY TRANSCRIBED RESULTS from Last 3 Months or Most Recently Relevant to Health Maintenance Insurance Care Teams Team MemberRelationshipSpecialtyStart DateEnd Date Drake Morrissey MD [address] [place], [place] [id number] PCP - GeneralInternal Medicine09/17/24
--- OUTSIDE RECORDS SUMMARY | 2025-01-14 12:13 | XMS_ITS | Encounter Summary ---
Author Organization [facility] tem Address [id number] [address] [place] [address] Care Team Providers Care Computer Help Desk Representative Name Role Phone Drake Morrissey MD Primary Care Provider [phone] Encounter Details DateTypeDepartmentCare Team (Latest Contact Info)Wkpmigfyzpc55/19/2025Results Follow-Up [facility] [address] [place] [address] Drake Morrissey MD [address] [place] [address] CBC auto differential, Thyroid profile includes TSH FT4, Lipid profile, Additional followed-up results: 3 Social History Tobacco UseTypesPacks/DayYears UsedDateSmoking Tobacco: NeverSmokeless Tobacco: NeverAlcohol UseStandard Drinks/WeekCommentsNot Currently0 (1 standard drink = 0.6 oz pure alcohol)occasionalSocial Connection and Isolation PanelAnswerDate RecordedIn a typical week, how many times do you talk on the phone with family, friends, or neighbors?More than three times a week03/23/2020How often do you get together with friends or relatives?Twice a week03/23/2020How often do you attend hindu or worship services?Never1Do you belong to any clubs or organizations such as hindu groups, unions, fraternal or athletic groups, or school groups?Yes03/23/2020How often do you attend meetings of the clubs or organizations you belong to?Never03/23/2020re you , , , , never , or living with a partner?Never fkdlful1803/23/2020 AUDIT-CAnswerDate RecordedQ1: How often do you have a drink containing alcohol? Never03/23/2020Q2: How many drinks containing alcohol do you have on a typical day when you are drinking?Patient suzdjjgt26/09/2021Q3: How often do you have six or more drinks on one occasion?Never03/23/2020Overall Financial Resource Strain (CARDIA)AnswerDate RecordedHow hard is it for you to pay for the very basics like food, housing, medical care, and heating?Not very hard10/18/2024 PHQ-2AnswerDate RecordedTotal [id number] [facility] [place] of Occupational Health - Occupational Stress QuestionnaireAnswerDate RecordedDo you feel stress - tense, restless, nervous, or anxious, or unable to sleep at night because your mind is troubled all the time - these days?Not at all03/23/2020xercise Vital SignAnswerDate RecordedOn average, how many days [...] part of a household?No10/18/2024hildcareAnswerDate RecordedDo problems getting childcare administrator make it difficult for you to work [...] purpose and direction in my life. Somewhat Agree1EducationAnswerDate RecordedWhat is the highest level of school you have completed or the highest degree you have received?12th grade 1CommentsNoSex and Gender InformationValueDate RecordedSex Assigned at BirthNot on fileLegal XabTaecup16/08/2018 9:48 AM EDTGender Identity Not on fileSexual OrientationNot on filedocumented as of this encounter Plan of Treatment DateTypeDepartmentCare Team (Latest Contact Info)Dpzubwsfszh15/08/2026 1:45 PM ESTOffice Visit [facility] [address] [place] [address] [phone] Drake Morrissey MD [address] [place] [phone] 04/30/2025 9:00 AM EDTOffice Visit [facility] [address] [place] [address] [phone] Drake Morrissey MD [address] [place] [phone] 10/21/2025 3:30 PM EDTOffice Visit [facility] [address] [place] [address] [phone] Drake Morrissey MD [address] [place] [address] [phone] documented as of this encounter Visit Diagnoses Not on filedocumented in this encounter Additional Health Concerns AssessmentNoted TimePHQ-9 Depression Total Score: 10:09 AM EDTA Body Mass Index follow-up plan has been documented for the olxzyyd58/09/2024 3:34 PM EDTdocumented as of this encounter Care Teams Team MemberRelationshipSpecialtyStart DateEnd Date Drake Mrorissey MD [address] [place] [address] PCP - GeneralInternal Medicine09/17/24documented as of this encounter
--- OUTSIDE RECORDS SUMMARY | 2025-01-14 12:15 | XMS_ITS | CCD ---
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 Role Phone AVASTHI, STEPH Unavailable Unavailable [...] Unavailable Defrance, MD Gracia Primary Care Provider [phone] Leti, MD Gracia Attending Provider Samia Landeros MD Primary Care Provider [phone] Samia Landeros MD Primary Care Provider [phone] Samia Landeros MD Primary Care Provider Drake Shaw MD Primary Care Provider SAMIA LANDEROS Referring Unavailable DRAKE SHAW Primary Care Unavailable DRAKE SHAW Attending Unavailable Drake Shaw MD Primary Care Provider Boy Phillips APRN Attending Provider Boy Phillips Attending Unavailable Boy Phillips Admitting Unavailable Allergies Allergy ClassificationReported Allergen(s)Allergy TypeDate of OnsetReaction(s) Facility (20 sources)Codeine; Translations: [CODEINE]Drug Rhjwkug11-15-5745Lsdyjgas, Other (See Comments)[facility] Work Phone: (20 sources)LORazepam; Translations: [LORAZEPAM]Drug Pkzknrp27-23-0478afbq, Other: See CommentsMer[facility] Health [facility] Work Phone: (1 source)[facility] ([facility] source)LORazepamDrug [facility]ergyDel[facility] (1 source)CodeineDrug Frfcwsm65-69-1491DujnmtvblSelect [facility] (1 source)LORazepamDrug Uruujbo09-01-0522BmmxpskirSelect Medical [facility]ty [facility] [place] [facility] Medications Current Medications MedicationDrug Class(es)DatesSig (Normalized)Sig (Original)ACCU-CHEK GUIDE L1-L2 CTRL MISTY solution (10 sources)Start: 01-08-9017EOKL-CHEK GUIDE L1-L2 CTRL MISTY solution 08/15/2023 ActiveamLODIPine 5 mg oral tablet (20 sources)Dihydropyridine Calcium Channel BlockerStart: 04-27-2023 End: 06-35-1660kttv 1 tablet by mouth once dailyAmlodipine 5 mg tablet Active 5 MG PO Daily June 18, 2023 12:00am Complies with drug therapyStart: 02-14-2018 End: 44-90-8184ajbs 1 tablet by mouth once dailyamLODIPine (NORVASC) 10 mg tablet TAKE 1 TABLET BY MOUTH EVERY DAY 90 tablet 3 01/17/2023 10/20/2024 Discontinued (Patient Stopped On Own)Comment on above:Take 10 mg by mouth once daily. amylase [id number] unt / lipase 83779 unt / protease [id number] unt delayed release oral capsule (20 sources)Start: 03-07-3562leqx 2 capsules by mouth three times daily at mealtime, then take 1 capsule by mouth three times dailyStart: 36-79-8960JKMPVP 40,000-126,000- 168,000 unit capsule,delayed release(DR/EC) TAKE 2 CAPSULES BY MOUTH WITH MEALS AND 1 CAPSULE WITH EACH SNACK 270 capsule 5 02/10/2019 Active Comment on above:Take 2 capsules by mouth w MEALS. Take 1 tablet with each snack.atorvastatin 10 mg oral tablet (20 sources)HMG-CoA Reductase InhibitorStart: 08-28-2022 End: 25-11-7925skfs 1 tablet by mouth once dailyAtorvastatin 10 mg tablet Active 10 MG PO Daily June 18, 2023 12:00am Complies with drug therapyblood-glucose sensor (Dexcom G7 Sensor) (3 sources)Start: 34-71-9476czcya-glucose sensor (Dexcom G7 Sensor) Active .Route December 31, 2023 1:00amStart: 65-61-9549fobxb-glucose sensor (Dexcom G7 Sensor) Active .Route December 31, 2023 12:00amcarvedilol 25 mg oral tablet (20 sources)alpha-Adrenergic Juliet, beta-Adrenergic BlockerStart: 08-28-2022 End: 21-63-8579vqzl 1 tablet by mouth twice dailyCarvedilol 25 mg tablet Active 25 MG PO Twice daily June 18, 2023 12:00am Complies with drug therapyComment on above:Take 25 mg by mouth twice daily with meals.cefdinir 300 mg oral capsule (3 sources)Cephalosporin AntibacterialStart: 07-24-2023 End: 44-07-9758pzqi 1 capsule by mouth in the morning, then take 1 capsule by mouth at bedtimecefDINIR (OMNICEF) 300 mg capsule Take 1 capsule (300 mg total) by mouth in the morning and 1 capsule (300 mg total) before bedtime. Do all this for 10 days. 20 capsule 07/24/2023 08/03/2023 ActiveStart: 04-16-2023 End: 12-85-6957bnvj 1 capsule by mouth in the morning, then take 1 capsule by mouth at bedtimecefDINIR (OMNICEF) 300 mg capsule Take 1 capsule (300 mg total) by mouth in the morning and 1 capsule (300 mg total) before bedtime. Do all this for 10 days. 20 capsule 0 04/16/2023 04/26/2023 Activecholecalciferol 0.125 mg oral capsule (20 sources)Vitamin DStart: 04-79-9158dajjdumftxyiipk, vitamin D3, (VITAMIN D3) 5,000 units capsule 1 capsule (5,000 Units total). 06/18/2023 ActiveStart: 69-30-3494vhus 1 capsule by mouth twice dailytake 1 capsule by mouth every twelve hoursVitamin D3 125 MCG (5000 UT) 1 capsule Orally twice a day Active DEXCOM G6 LEARNING AND DEVELOPMENT DIRECTOR misc (20 sources)Start: 32-13-0732CECQUA G6 LEARNING AND DEVELOPMENT DIRECTOR misc 01/24/2022 ActiveStart: 65-77-1885JHDETN G6 LEARNING AND DEVELOPMENT DIRECTOR misc USE as directed TO monitor blood glucose 01/24/2022 ActiveStart: 51-32-6415EUMVNZ G6 LEARNING AND DEVELOPMENT DIRECTOR misc USE as directed TO monitor blood glucose 0 01/24/2022 ActiveDexSpoonfed G6 Sensor - (16 sources)Start: 89-19-8102[place] G6 Sensor - as directed SQ change q 10 days for 90 day(s) Dec, ActiveDexcom G6 Sensor - as directed SQ change q 10 days for 90 day(s) ActiveDEXVibrant [employer] G6 SENSOR device (20 sources)Start: 60-22-6510VPJCVX G6 SENSOR device 01/24/2022 ActiveStart: 99-49-0740ALRGLD G6 SENSOR device CHANGE every 10 DAYS as directed 01/24/2022 ActiveStart: 27-20-5195XKTXLX G6 SENSOR device CHANGE every 10 DAYS as directed 0 01/24/2022 ActiveDexcom G6 Transmitter - (16 sources)Start: 29-99-2869Wqpfpg G6 Transmitter - as directed SQ change Q 3 MO for 90 day(s) Dec, ActiveDexSpoonfed G6 Transmitter - as directed SQ change Q 3 MO for 90 day(s) ActiveDEXCOM G6 TRANSMITTER device (20 sources)Start: 16-21-3026IKXYHY G6 TRANSMITTER device 01/24/2022 Active Start: 60-21-2515VLMXJU G6 TRANSMITTER device CHANGE every three MONTHS as directed with G6 Sensor 01/24/2022 ActiveStart: 80-07-1268SYOHGS G6 TRANSMITTER device CHANGE every three MONTHS as directed with G6 Sensor 0 01/24/2022 Active diclofenac sodium 0.01 mg/mg topical gel (20 sources)Nonsteroidal Anti-inflammatory DrugStart: 78-98-1342sudecdfzli sodium (VOLTAREN) 1 % gel Apply to affected area tid 100 g 7 08/20/2023 Active Start: 06-18-2023 End: 07-28-0096Gohnrhdnjw Sodium 1 % gel Discontinued TOPICAL Three times daily June 18, 2023 12:00am November 04, 2024 3:34pm as directed Externally TID; Start: 12-18-2022 End: 43-25-0370awxuyhmytb sodium (VOLTAREN) 1 % gel APPLY TO AFFECTED AREA 3 TIMES A DAY 100 g 5 12/18/2022 08/17/2023 Discontinued (Reorder)Start: 12-67-1546dqynn 2 g topically twice daily as needed for paindiclofenac (VOLTAREN) 1 % topical gel Indications: Costochondritis APPLY 2GM TO AFFECTED AREA TWICEDAILY NEEDED FOR PAIN DIRECTED 100 g 1 05/05/2021 Active Diclofenac Sodium 1 % as directed Externally TID ActiveComment on above:APPLY 2GM TO AFFECTED AREA TWICE DAILY NEEDED FOR PAIN DIRECTEDdocusate sodium 100 mg oral capsule (20 sources)Start: 06-18-2023 End: 32-10-9358ahfa 1 capsule by mouth in the morning, then take 1 capsule by mouth at bedtimedocusate sodium (STOOL SOFTENER) 100 mg capsule Take 1 capsule (100 mg total) by mouth in the morning and 1 capsule (100 mg total) before bedtime. 180 capsule 3 10/20/2024 ActiveStart: 04-12-2022 End: 29-37-6524gpjv 1 capsule by mouth in the morningSTOOL [...] mg oral tablet (20 sources)Start: 10-16-2023 End: 40-90-6249mqgj 1 tablet by mouth in the morningferrous sulfate 325 (65 FE) MG tablet Take 1 tablet (325 mg total) by mouth in the morning. 90 tablet 3 10/20/2024 ActiveStart: 05-07-9287brie 1 tablet by mouth in the morningferrous sulfate 325 (65 FE) mg tablet TAKE 1 TABLET (325 MG TOTAL) BY MOUTH IN THE MORNING 90 tablet 1 09/11/2023 ActiveStart: 01-01-2023 End: 68-53-9728jvzx 1 tablet by mouth once dailyFerrous Sulfate 325 mg (65 mg iron) tablet Active 325 MG PO Daily June 18, 2023 12:00am Complies with drug therapytake 1 tablet by mouth once dailyFerrous Sulfate 325 (65 Fe) MG 1 tablet Orally Once a day ActiveComment on above:Take 325 mg by mouth once daily. gentamicin 3 mg/ml ophthalmic solution (1 source)Start: 07-24-2023 End: 27-22-0121osjuefcqjn (GARAMYCIN) 0.3 % ophthalmic solution Administer 1 drop to both eyes in the morning and 1 drop at noon and 1 drop in the evening and 1 drop before bedtime. Do all this for 5 days. 5 mL 07/24/2023 07/29/2023 ActivehydroCHLOROthiazide 25 mg oral tablet (20 sources)Thiazide DiureticStart: 04-02-2023 End: 66-22-0065syxl 1 tablet by mouth once dailyHydrochlorothiazide 25 mg tablet Active 25 MG PO Daily June 18, 2023 12:00am Complies with drug therapy1.5 ml insulin glargine 300 unt/ml pen injector (20 sources)Insulin AnalogStart: 90-51-4498bvrpis 30 [IU] by subcutaneous injection once daily in the morningStart: 06-18-2023 End: 41-03-8760Crwhyrx Glargine U-300 Conc 300 unit/mL (1.5 mL) insulin pen Discontinued 0 SUBCUT Daily September 24, 2023 3:14pm September 24, 2023 4:57pm 40 units qam Subcutaneous as directed; (titrate up to 40 units/day) ON HAND FOR PUMP FAILSStart: 05-15-2023 End: 14-82-2269Qlwsexv Glargine U-300 Conc 300 unit/mL (1.5 mL) insulin pen Discontinued 37 UNIT SUBCUT Daily 4.5 90 May 16, 2023 1:20pm June 18, 2023 3:19pm FreeTextSi units qam Subcutaneous as directed; Note: Source Status: Increase(titrate up to 40 units/day); Refills: 3; Provider: Jacqueline Brunson KStart: 86-28-9787YVNINK SOLOSTAR U-300 INSULIN 300 unit/mL (1.5 mL) insulin pen 03/13/2022 ActiveStart: 77-78-4815frqxdm 10 [IU] by subcutaneous injection in the morning, then inject 20 [IU] by subcutaneous injection once daily in the morningTOUJEO SOLOSTAR U-300 INSULIN 300 unit/mL (1.5 mL) insulin pen INJECT 10 UNITS IN THE MORNING. TITRATE UP TO 20 UNITS SUBCUTANEOUSLY PER DAY EVERY MORNING 03/13/2022 ActiveStart: 95-63-5635tjlrtn 22 [IU] by subcutaneous injection once daily in the morningToujeo SoloStar 300 UNIT/ML 22 units qam Subcutaneous as directed for 30 days (titrate up to 30 units/day) Dec, ActiveStart: 79-50-0074phgujr 10 [IU] by subcutaneous injection once daily [...] unit/mL (1.5 mL) insulin pen (5 sources)Start: 79-30-4798khhmsg 30 [IU] by subcutaneous injection once daily in the morningInsulin Glargine U-300 Conc 300 unit/mL (1.5 mL) insulin pen Active 0 SUBCUT Daily September 24, 2023 3:57pm 30 units qam Subcutaneous as directed; (titrate up to 40 units/day) ON HAND FOR PUMP FAILSStart: 09-24-2023 End: 94-53-2470Xxlusqj Glargine U-300 Conc 300 unit/mL (1.5 mL) insulin pen Discontinued 0 SUBCUT Daily September 24, 2023 2:14pm September 24, 2023 3:57pm 40 units qam Subcutaneous as directed; (titrate up to 40 units/day) ON HAND FOR PUMP FAILSStart: 06-18-2023 End: 42-79-6968Fnaymyd Glargine U-300 Conc 300 unit/mL (1.5 mL) insulin pen Discontinued 0 SUBCUT Daily June 18, 2023 2:10pm September 24, 2023 2:16pm 40 units qam Subcutaneous as directed; (titrate up to 40 units/day)Start: 05-16-2023 End: 57-45-0685Fjcoiml Glargine U-300 Conc 300 unit/mL (1.5 mL) insulin pen Discontinued 37 UNIT SUBCUT Daily 4.5 90 May 16, 2023 12:20pm June 18, 2023 2:19pm FreeTextSi units qam Subcutaneous as directed; Note: Source Status: Increase(titrate up to 40 units/day); Refills: 3; Provider: Jacqueline Bolañosrt: 05-15-2023 End: 63-58-3155Kzawzhz Glargine U-300 Conc 300 unit/mL (1.5 mL) insulin pen Discontinued UNIT SUBCUT May 14, 2023 11:00pm May 16, 2023 12:22pm FreeTextSi units qam Subcutaneous as directed; Note: Source Status: Increase(titrate up to 40 units/day); Refills: 3; Provider: Jacqueline Mcqueen insulin lispro 100 unt/ml injectable solution (20 sources)Insulin AnalogStart: 87-92-5452Agdli: 19-09-9717egiapa 110 [IU] by subcutaneous injection once dailyInsulin Lispro (Humalog U-100 Insulin) 100 unit/mL solution Active 0 SUBCUT Use as Directed July 29, 2024 2:39pm Use with insulin pump up to 110 units per day. subcutaneously use as directed; Co mplies with drug therapyStart: 08-30-2023 End: 48-43-9515UuliMYD U-100 Insulin 100 unit/mL injection 08/30/2023 Active Start: 06-18-2023 End: 27-50-0004Flsazfg Lispro (Humalog Kwikpen Insulin) 100 unit/mL insulin pen Discontinued 0 SUBCUT .COMPLEX September 24, 2023 3:15pm September 24, 2023 4:56pm 1:4 carb ratio ad tid. Corrective scale 1:15 ac, (hs if >200 half dose) Subcutaneous as directed; ON HAND FOR PUMP FAILS.Start: 03-13-2022 End: 86-76-1116WymyCDV KwikPen Insulin 100 unit/mL insulin pen 1:25 CORRECTIVE SCALE BEFORE MEAL 3TIMES DAILY SUBCUTANEOUSLY DIRECTED*EXPECT UP TO 20UNITS DAILY 03/13/2022 10/20/2024 DiscontinuedStart: 60-52-6110BmgvPKX KwikPen 100 UNIT/ML 1:40 corrective scale ac tid plus 1:10 ICR Subcutaneous as directed for 30 days (expect up to 20 units/day) Dec, ActiveInsulin Lispro (Humalog Kwikpen Insulin) 100 unit/mL insulin pen (3 sources)Start: 75-10-4592Ntprlxt Lispro (Humalog Kwikpen Insulin) 100 unit/mL insulin pen Active 0 SUBCUT Use as Directed 2023 12:00am 1:4 carb ratio ac tid. Corrective scale 1:15 ac, (hs if >200 half dose) Subcutaneous as directed; ON HAND FOR PUMP FAILSStart: 09-24-2023 End: 33-70-4995Uldfawv Lispro (Humalog Kwikpen Insulin) 100 unit/mL insulin pen Discontinued 0 SUBCUT .COMPLEX September 24, 2023 2:15pm September 24, 2023 3:56pm 1:4 carb ratio ad tid. Corrective scale 1:15 ac, (hs if >200 half dose) Subcutaneous as directed; ON HAND FOR PUMP FAILS.Start: 06-18-2023 End: 04-04-5476Plbwofa Lispro (Humalog Kwikpen Insulin) 100 unit/mL insulin pen Discontinued 0 SUBCUT .COMPLEX 2023 11:00pm September 24, 2023 2:16pm 1:4 carb ratio ad tid. Corrective scale 1:15 ac, (hs if >200 half dose) Subcutaneous as directed;Insulin Lispro (Humalog U-100 Insulin) 100 unit/mL solution (1 source)Start: 63-58-8787lgssxi 100 [IU] by subcutaneous injection once daily Insulin Lispro (Humalog U-100 Insulin) 100 unit/mL solution Active 0 SUBCUT Use as Directed 90 2023 11:00pm Use with insulin pump up to 100 units per day. subcutaneously use as directed;lancing device misc (20 sources)Start: 47-49-8469hyljktl device misc 03/03/2022 ActiveStart: 51-56-6612xcokqid device twzpKytpdd-Olfxerwb-Crsfrxs 40,000-126,000- 168,000 unit capsule,delayed release(DR/EC) (1 source)Start: 76-83-3260ypof 2 capsules by mouth three times daily at mealtime, then take 1 capsule by mouth three times pdfwqBqchyr-Gzhtymbu-Uwcbegf 40,000-126,000- 168,000 unit capsule,delayed release(DR/EC) Active 0 PO Three times daily June 17, 2023 11:00pm orally three times daily; 2 capsules with meals, 1 capsule witheach snack Orally tid;meclizine hydrochloride 25 mg oral tablet (20 sources)AntiemeticStart: 09-22-2022 End: 02-09-8161vmzp 1 tablet by mouth three times dailyMeclizine [...] the morning. 0 ActiveMultivitamin preparation (19 sources)Start: 21-12-8739lvsh 1 tablet by mouth once dailyStart: 06-18-2023 take 1 tablet by mouth once dailymultivitamin (Daily Multivitamin) Active 1 TAB PO Daily June 18, 2023 12:00am Complies with drug therapyStart: 72-96-0849ongv 1 tablet by mouth once dailymultivitamin (Daily Multivitamin) Active 1 TAB PO Daily June 17, 2023 11:00pmtake 1 tablet by mouth once dailyMultivitamin - 1 tablet Orally Once a day Activeondansetron 4 mg oral tablet (20 sources)Serotonin-3 Receptor AntagonistStart: 12-11-2022 End: 28-10-8351vyei 1 tablet by mouth every eight hours as neededOndansetron Hcl 4 mg tablet Active 4 MG PO Every 8 hours as needed June 18, 2023 12:00am Complies with drug therapypantoprazole 40 mg delayed release oral tablet (20 sources)Proton Pump InhibitorStart: 08-28-2022 End: 06-36-2484madm 1 tablet by mouth once dailyPantoprazole 40 mg tablet,delayed release (DR/EC) Active 40 MG PO Daily June 18, 2023 12:00am Complies with drug therapyComment on above:Take 40 mg by mouth once daily.pen needle, diabetic (BD Janneth 2nd Gen Pen Needle) (3 sources)Start: 04-70-7895eeg needle, diabetic (BD Janneth 2nd Gen Pen Needle) Active .Route June 18, 2023 12:00amStart: 78-71-2364npp needle, diabetic (BD Janneth 2nd Gen Pen Needle) Active .Route June 17, 2023 11:00pmmicroencapsulated potassium chloride 10 meq extended release oral tablet (20 sources)Start: 10-22-2023 End: 70-96-4253mnra 1 tablet by mouth in the morning, [...] THE MORNING. 180 tablet 3 10/20/2024 ActiveStart: 44-90-1525bckh 1 tablet by mouth twice dailyStart: 09-22-2022 End: 56-57-3150yfja 1 tablet by mouth in the morningKLOR-CON M10 10 mEq CR tablet TAKE 1 TABLET (10 MEQ TOTAL) BY MOUTH IN THE MORNING 90 tablet 2 08/26 Activetake 1 tablet by mouth every twelve hoursPotassium Chloride ER 10 MEQ 1 tablet with food Orally Twice a day Activepsyllium 400 mg oral capsule (20 sources)Start: 04-95-4437Tpdnqcoex ActiveComment on above:Take by mouth once daily.Psyllium Husk (Metamucil) 0.4 gram capsule (1 source)Start: 66-22-1993Lpqfgmaf Husk (Metamucil) 0.4 gram capsule Active 0.4 GM PO Daily June 17, 2023 11:00pmSubcutaneous Insulin Pump (T:Slim X2 Control- Iq) misc (3 sources)Start: 65-82-2815Ymmxtporgyxb Insulin Pump (T:Slim X2 Control-Iq) misc Active 0 .Route 1 August 20, 2023 12:00am Use continuously to deliver insulinStart: 88-80-6282Txnoqhfjpref Insulin Pump (T:Slim X2 Control-Iq) misc Active 0 .Route 1 August 19, 2023 11:00pm Use continuously to deliver insulin T:SLIM X2 CONTROL-IQ misc (10 sources)Start: 08-20-2023T:SLIM X2 CONTROL-IQ misc 08/20/2023 Active tiZANidine 4 mg oral tablet (20 sources)Central alpha-2 Adrenergic AgonistStart: 36-65-1972zazr 1 tablet by mouth every eight hours as neededtiZANidine (ZANAFLEX) 4 mg tablet TAKE 1 TABLET (4 MG TOTAL) BY MOUTH EVERY 8 (EIGHT) HOURS NEEDED FOR MUSCLE SPASMS 270 tablet 3 11/10/2024 ActiveStart: 10-16-2023 End: 42-71-8093dupk 1 tablet by mouth every eight hours as neededtiZANidine (ZANAFLEX) 4 mg tablet Take 1 tablet (4 mg total) by mouth every 8 (eight) hours as needed for muscle spasms. 270 tablet 3 10/20/2024 11/10/2024 Discontinued Start: 09-66-0518uhyb 1 tablet by mouth once daily at bedtime as neededStart: 08-50-1704bnvs 1 tablet by mouth every eight hours [...] gluconate 50 mg oral tablet (17 sources)Start: 29-20-0023bpoy 1 tablet by mouth twice dailytake 1 tablet by mouth every twelve hoursZinc 50 MG 1 tablet Orally TWICE A DAY Active Completed/Discontinued Medications MedicationDrug Class(es)DatesSig (Normalized)Sig (Original)acetaminophen 325 mg oral tablet (1 source)Start: 00-99-3791vyeh 2 tablets by mouth every six hours [...] Central Nervous System Stimulant, MethylxanthineStart: 01-13-2021 End: 69-52-8651dsow 1-2 tablets by mouth every six hours as needed for headache xtogpjdray-axokwsfpntizz-rtxy (FIORICET, ESGIC) 50-325-40 mg per tablet Take 1-2 tablets by mouth every 6 (six) hours as needed for headaches. 40 tablet 1 01/13/2021 04/02/2023 Discontinued (Alternate therapy)benzonatate 200 mg oral capsule (19 sources)Non-narcotic AntitussiveStart: 04-18-2023 End: 90-73-5018mibv 1 capsule by mouth three times daily as needed for cough benzonatate (TESSALON PERLES) 200 mg capsule Take 1 capsule (200 mg total) by mouth 3 (three) timesa day as needed for cough. 30 capsule 1 04/18/2023 10/20/2024 Discontinued (Patient Stopped On Own)blood-glucose sensor (Dexcom G6 Sensor) (3 sources)Start: 06-18-2023 End: 66-23-4028begnj-glucose sensor (Dexcom G6 Sensor) Discontinued .Route June 18, 2023 12:00am December 31, 2023 4:26pmStart: 06-18-2023 End: 95-81-3076zdlbn-glucose sensor (Dexcom G6 Sensor) Discontinued .Route June 17, 2023 11:00pm December 31, 2023 3:26pmblood-glucose transmitter (Dexcom G6 Transmitter) (3 sources)Start: 06-18-2023 End: 68-66-1779iatqg-glucose transmitter (Dexcom G6 Transmitter) Discontinued .Route June 18, 2023 12:00am December 31, 2023 4:26pmStart: 06-18-2023 End: 91-43-9354jdjod-glucose transmitter (Dexcom G6 Transmitter) Discontinued .Route June 17, 2023 11:00pm December 31, 2023 3:26pmcephalexin 500 mg oral capsule (3 sources)Cephalosporin AntibacterialStart: 12-31-2023 End: 27-26-0557joou 1 capsule by mouth four times dailyCephalexin 500 mg capsule Discontinued 500 MG PO Four times daily December 31, 2023 1:00am April 14, 2024 4:08pmglimepiride 2 mg oral tablet (1 source)SulfonylureaStart: 63-00-3809whqnhyqxzcb (AMARYL) 2 mg tablet 4 mg daily with breakfast. 0 05/18/2020 ActiveComment on above:4 mg daily with breakfast. lidocaine 0.05 mg/mg medicated patch (20 sources)Antiarrhythmic, Amide Local AnestheticStart: 08-20-2023 End: 39-91-5962prhbk 1 dose transdermal route in the morninglidocaine (LIDODERM) 5 % Place 1 patch on the skin in the morning. 30 patch 7 08/20/2023 10/20/2024 Discontinued (Patient Stopped On Own)Start: 06-18-2023 End: 53-76-0983Baxkrbugp 5 % adhesive patch,medicated Discontinued 1 PATCH TOPICAL Daily June 18, 2023 12:00am July 29, 2024 1:44pm 1 patch remove after 12 hours Externally Once a day;Start: 08-28-2022 End: 28-96-2245lazcj 1 dose transdermal route in the morninglidocaine (LIDODERM) 5 % Place 1 patch on the skin in the morning. 30 patch 5 02/15/2023 Active Lidocaine 5 % 1 patch remove after 12 hours Externally Once a day Active meloxicam 15 mg oral tablet (1 source)Nonsteroidal Anti-inflammatory DrugStart: 21-02-8427bott 1 tablet by mouth once dailymeloxicam (MOBIC) [...] Translations: [Type 2 diabetes mellitus with hyperglycemia]Onset: 02-60-2266DgesyziHxtieijr mellitus without complication (20 sources)Diabetes mellitus without complication; Translations: [Other specified diabetes mellitus without complications]Onset: 61-72-8794Gpkwums Disorders of lipid metabolism (20 sources)Hyperlipidemia; Translations: [Hyperlipidemia, unspecified]Onset: 56-80-7869RsieyjoYqlzmylwrg disorders (1 source)Gastroesophageal reflux disease; Translations: [Gastro-esophageal reflux disease without esophagitis]Onset: 424085-49-9843SvyhmegWeudolgtw hypertension (20 sources)Hypertensive disorder; Translations: [Essential (primary) hypertension]Onset: 78-74-8961IejetugJadjlzbmqtc deficiencies (2 sources)Undernutrition; Translations: [Mild protein-calorie malnutrition] Onset: 179892-98-4406QjaukyvKmtdt aftercare (16 sources)Long-term current use of insulin; Translations: [prison (current) use of insulin]EpisodicOther aftercare (8 sources)prison (current) use of insulin; Translations: [prison (current) use of insulin]Onset: 16-91-8771IusychkiWddso endocrine disorders (16 sources)Hypoglycemia; Translations: [Hypoglycemia, unspecified]ChronicOther endocrine disorders (1 source)Hypoglycemia, unspecifiedChronicOther nervous system disorders (1 source)Disorder of brain; Translations: [Encephalopathy, unspecified]Onset: 513402-28-0525EezhgaqElhlf nutritional; endocrine; and metabolic disorders (20 sources)Obese class I; Translations: [Body mass index (BMI) 31.0-31.9, adult]Onset: 801546-99-0041EcjydwcNmook nutritional; endocrine; and metabolic disorders (1 source)Body mass index (BMI) 31.0-31.9, adultChronicOther nutritional; endocrine; and metabolic disorders (19 sources)Body mass index 30+ - obesity; Translations: [Body mass index (BMI) 32.0-32.9, adult]28-69-4459FfbdjgvLgxbi nutritional; endocrine; and metabolic disorders (1 source)Body [...] neoplasm of breast; Translations: [Patient encounter status]Onset: [id number] Residual codes; unclassified (16 sources)Acquired partial absence of pancreas; Translations: [Acquired partial absence of pancreas]ChronicResidual codes; unclassified (1 source)Acquired total absence of pancreas; Translations: [Personal history of surgery to other organs]23-88-9643ThkguvaNrvz and subcutaneous tissue infections (4 sources)Site-specific infective disorders of skin; Translations: [Local infection of the skin and subcutaneous tissue, unspecified]66-44-1190Pabfisgx Unclassified (2 sources)Acute pancreatitis with uninfected necrosis, unspecified; Translations: [Acute pancreatitis with uninfected necrosis, unspecified]Onset: 99-01-4148Remruibupuys (1 source)Annual ExamOnset: 10-20-2024 Past or Other Problems Problem ClassificationProblemDateDocumented DateEpisodic/ChronicCrushing injury or internal injury (20 sources)Injury of pancreas; Translations: [Unspecified injury of tail of pancreas, initial encounter]Onset: 695547-11-1771LzscybeqKvrwhsrdtt and other anemia (1 source)Iron deficiency anemia; Translations: [Iron deficiency anemia, unspecified]Onset: 336956-30-2833OynscrjiAgawf and electrolyte disorders (6 sources)Hypernatremia; Translations: [Hyperosmolality and hypernatremia] Onset: [id number] infection (1 source)Clostridium difficile diarrhea; Translations: [Enterocolitis due to Clostridium difficile, not specified as recurrent]Onset: EpisodicIntestinal obstruction without hernia (1 source)Intestinal obstruction co-occurrent and due to decreased peristalsis; Translations: [Ileus, unspecified]Onset: [id number] disorders (20 sources)Mood disordersOnset: 10-16-2023 Resolved: Other connective tissue disease (11 sources)Myofascial pain syndrome; Translations: [Myalgia, other site]Onset: 525777-74-7248DjjjvbmgFsykd lower respiratory disease (1 source)H/O: respiratory disease; Translations: [Personal history of other diseases of the respiratory system]Onset: 401725-35-3589UctijrmpNsawk upper respiratory infections (1 source)Acute sinusitis; Translations: [Other acute sinusitis]04-16-2023 EpisodicPancreatic disorders (not diabetes) (20 sources)Acute necrotizing pancreatitis; Translations: [Acute pancreatitis with uninfected necrosis, unspecified]Onset: 685463-03-9871Ctlupkas Spondylosis; intervertebral disc disorders; other back problems (20 sources)Neck pain; Translations: [Cervicalgia]Onset: EpisodicUnclassified (20 sources)Onset: 04-29-2020 Resolved: Results Test NameValueInterpretationReference RangeFacilityMicroAlb Creat Ratio,Uon 44-46-9601Lczsnqp DL <= 20 mg/L (U) [Mass/Vol]mg/dLNormal0.0-1.8The [facility] Physician GroupComment on above:Performed By: #### URMACRERAT #### [place] [address] USACreatinine, Urine (Random)35.00 mg/dLNormOrlando Health South Semin[facility] Physician [facility] HospitalComment on above:Result Comment: No reference range established Performed By: #### URMACRERAT #### [facility] [address] [place] [address] USAMicroalbumin/Creatinine RatioNot performedNormal0.0-30.0 The [facility] Physician GroupComment on above:Result Comment: PERFORMED BY: [place] [address] PATHOLOGIST WARP BLEACHING VAT TENDER CHAGO VELEZ M.D.Performed By: #### URMACRERAT #### [place] [id number] USAA1C HEMOGLOBINon 66-57-9215SoX1p (Bld) [Mass fraction]7.8 %[employer] Other Glucose - FINGER STICKon 75-39-9780Xiyjugw [Mass/Vol] 132 mg/dLNoRetail [employer]imization Other HbA1c (Bld) [Mass fraction]on 27-48-0000U5P HEMOGLOBIN [employer] Other A1C HEMOGLOBINon 47-22-7501MxT3g (Bld) [Mass fraction] 6.7 %[employer] Other Glucose - FINGER STICKon 16-58-4718Imlnzpq [Mass/Vol] 126 mg/dLNoRetail [employer]imization Other HbA1c (Bld) [Mass fraction]on 72-79-3409T0J HEMOGLOBIN [employer] Other Glucose - FINGER STICKon 88-93-7413Xkjnhod [Mass/Vol] 106 mg/dLNoRet[employer] Other Glucose - FINGER STICKon 84-94-5488Pjcnzex [Mass/Vol] 131 mg/dLNoRetail [employer] Other GGTon 29-48-3671Qdnmd glutamyl transferase [Catalytic activity/Vol]27 U/LNormal8-55The [facility] HospitalComment on above:Performed By: #### GGT, ALT, AST #### [facility] [address] [place], [place] [address] Dr. Caridad Odomn 68-05-7836VGT [Catalytic activity/Vol]24 U/KPhkyyj88-59Olr [facility] HospitalComment on above:Performed By: #### GGT, ALT, AST ####[facility] [address] [place], [place] [address]CjDr. Caridad Rice on 51-67-1346YVL [Catalytic activity/Vol]40 U/AWusyga43-29Pie [facility] Comment on above:Performed By: #### GGT, ALT, AST #### [facility] [address] [place], [place] [address] Dr. Caridad Luna - FINGER STICKon 59-76-2011Pdtsrdd [Mass/Vol]126 mg/dL [employer] Other A1C HEMOGLOBINon 78-33-8052UtA7s (Bld) [Mass fraction] 10.0 %[employer] Other Glucose - FINGER STICKon 32-11-4113Yjqcdgn [Mass/Vol] 125 mg/dLNort [employer] Other HbA1c (Bld) [Mass fraction]on 61-94-9708P8H HEMOGLOBIN [facility] [employer] Other 539-3258E-TBWNSYM, SERUMon 80-29-8648P-Peptide, Serum3.5 ng/mL Normal1.1-4.4The [facility] HospitalComment on above:Result Comment: C-Peptide reference interval is for fasting patients.Performed By: #### CPEPT #### [facility] [address] [place] [address] [address] Caridad CanadaGGTon 67-03-1198Ekfbr glutamyl transferase [Catalytic activity/Vol]40 U/LNormal8-55[facility] HospitalComment on above:Performed By: #### AST, K, ALT, LIPID, GGT ####[facility] [address] [place] [address]DrAries CanadaGLUCOSE BLOODon 18-41-9800Dnnxabl [Mass/Vol]342 mg/dLCritically nzbn32-979CynDelaware County HospitalComment on above: Performed By: #### GLUC ####[facility] [address] [place] [address]DrAries CanadaLIPID PROFILEon 02-01-2953VVAM-HDL RATIO NORMSEE BELOWNoPomerene HospitalComment on above:Result Comment: 3.3 - 4.4 LOW RISK 4.4 - 7.1 AVERAGE RISK 7.1 - 11.0 MODERATE RISK >11.0 HIGH RISKPerformed By: #### AST, K, ALT, LIPID, GGT ####[facility] [address] [place] [address]DrAries CanadaCholesterol [Mass/Vol]142 mg/dLNormal<=200The [facility] HospitalComment on above:Performed By: #### AST, K, ALT, LIPID, GGT ####[facility] [address] [place] [address]Dr. Yilan ChangCholesterol in HDL [Mass/Vol]32 mg/dL Critically irf77-02ZygCleveland Clinic Foundation on above:Performed By: #### AST, K, ALT, LIPID, GGT ####[facility] [address] [place] [address]Dr. Yilan ChangCholesterol in LDL [Mass/Vol]62.2 mg/dLChildren's Hospital for RehabilitationComaspirus keweenaw hospital on above:Performed By: #### AST, K, ALT, LIPID, GGT ####[facility] [address] [place], [place] [address]Dr. Yilan ChangCholesterol.total/Cholesterol in HDL [Mass ratio]4.4 {ratio}NormalThe [facility] on above:Performed By: #### AST, K, ALT, LIPID, GGT ####[facility] [address] [place], [place] [address]Dr. Yilan ChangHDL NORMAL> or = 60 mg/dl - LOW CARDIOVASCULAR RISK <40 mg/dl - HIGH CARDIOVASCULAR RISKChildren's Hospital for RehabilitationComaspirus keweenaw hospital on above:Performed By: #### AST, K, ALT, LIPID, GGT ####[facility] [address] [place], [place] [address]Dr. Yilan ChangLDL CALC NORMALSEE BELOWChildren's Hospital for RehabilitationComaspirus keweenaw hospital on above:Result Comment: <100 mg/dl OPTIMAL 100 - 129 mg/dl NEAR OR ABOVE OPTIMAL 130 - 159 mg/dl BORDERLINE HIGH 160 - 189 mg/dl HIGH >190 mg/dl VERY HIGHPerformed By: #### AST, K, ALT, LIPID, GGT ####[facility] [address] [place], [place] [address]Dr. Yilan Canada Triglyceride [Mass/Vol]239 mg/dLCritically high<=150[facility] on above:Performed By: #### AST, K, ALT, LIPID, GGT ####[facility] [address] [place], [place] [address]Dr. Yilan ChangVLDL CALC47.8 mg/dLChildren's Hospital for RehabilitationComment on above:Performed By: #### AST, K, ALT, LIPID, GGT ####[facility] [address] [place] [address]Dr. Caridad ChangMICROALB CREAT RATIO RANDOMon 58-71-2984bKRO<1.3Normal<=30.0 The [facility] HospitalComment on above:Performed By: #### MCRR ####[facility] [address] [place], [place] [address]Dr. Caridad CanadaMALB CR RATIO11.1 mg/gNormal0.0-29.9The [facility] HospitalComment on above:Performed By: #### MCRR ####[facility] [address] [place], [place] [address]Dr. Caridad ChangMALB CR RATIO RANGESEE BELOWChildren's Hospital for Rehabilitation Comment on above:Result Comment: NO MICROALBUMINURIA 0-29 MG/G CLINICAL MICROALBUMINURIA 30-300 MG/G MACROALBUMINURIA >300 MG/GPerformed By: #### MCRR ####[facility] [address] [place], [place] [address]Dr. Caridad ChangURINE BAUNG037.75 mg/zZOjhhju22.00-300.00[facility] HospitalComment on above:Performed By: #### MCRR ####[facility] [address] [place], [place] [address]Dr. Caridad CanadaPOTASSIUMon 80-14-2571Msgukrfyc [Moles/Vol]4.1 mmol/LNormal3.5-5.1The [facility] HospitalComment on above: Performed By: #### AST, K, ALT, LIPID, GGT ####[facility] [address] [place], [place] [address]Dr. Caridad CanadaSGOTon 38-59-0372NVZ [Catalytic activity/Vol]32 U/TIpuqzu86-79Wzg [facility] HospitalComment on above: Performed By: #### AST, K, ALT, LIPID, GGT ####[facility] [address] [place], [place] [address]TfDr. Caridad CanadaSGPTon 41-58-2275UOP [Catalytic activity/Vol]63 U/LCritically lmwu85-10Myi [facility] HospitalComment on above:Performed By: #### AST, K, ALT, LIPID, GGT ####[facility] [address] [place], [place] [address]QbDr. Caridad CanadaGlucose - FINGER STICKon 50-42-0688Obdjium [Mass/Vol]359 mg/dLNochristian hospital [employer] Other GLYCOHEMOGLOBIN A1Con 44-13-8906EES RECOMMENDATIONSEE BELOWChildren's Hospital for RehabilitationComment on above:Result Comment: ADA RECOMMENDED LIMIT 4.0 - 6.0 ADA THERAPEUTIC TARGET < 7.0 ACTION SUGGESTED > 7.0Performed By: #### A1C #### [facility] [address] [place] [address] [address] Caridad CanadaGlucose [Mass/Vol]272 mg/dLNoPomerene HospitalComment on above:Performed By: #### A1C #### [facility] [address] [place] [address] [address] Caridad CanadaHbA1c (Bld) [Mass fraction]11.1 %Critically high4.5-6.2The [facility] HospitalComment on above:Performed By: #### A1C #### [facility] [address] [place] [address] [address] Caridad CanadaMG MAMM SCREEN 3D MERCY CADon 66-84-1602UL MAMM SCREEN 3D MERCY CAD Patient: NICHOLE SANDHU Exam Date: 11/08/2021 : 1955 Gender:F Ordering : DR SAMIA LANDEROS Admission #: [id number] Family : Order #: [id number] CLICK HERE TO VIEW EXAM RADIOLOGY REPORT [...] No Treatments None Family Cancers None LOCATION: [facility] BREAST COMPOSITION: Scattered areas fibroglandular [...] by: Samia Cheek MD on 11/09/2021 at 07:37[facility] MICROALBUMIN/ CREATININE RATIOon 19-01-2637Iwgrcnf, Vqepi411.5 ug/mLNormalNot Estab.[facility] HospitalComment on above:Result Comment: Results confirmed on dilution.Performed By: #### MALBCRL #### [facility] [address] [place] [address] Dr. Caridad CanadaAlbumin/ Creatinine Emjcp813 mg/g creatCritically high0-29[facility] HospitalComment on above:Result Comment: Normal: 0 - 29 Moderately increased: 30 - 300 Severely increased: >300Performed By: #### MALBCRL #### [facility] [address] [place] [address] Dr. Caridad CanadaCreatinine, Qolom245.2 mg/dLNormalNot Estab.The [facility] Comment on above:Performed By: #### MALBCRL #### [facility] [address] [place] [address] Dr. Caridad Abraham AUTO DIFFon 36-08-6786FHWR #0.1 103/ulNormal0.0-0.1The [facility] HospitalComment on above:Performed By: #### CBC #### [facility] [address] [place] [address] Dr. Caridad CanadaBasophils/100 WBC (Bld)0.9 %Normal0.2-2.0The [facility] Comment on above:Performed By: #### CBC #### [facility] [address] [place] [address] [address] Caridad Russell #0.5 103/ulNormal0.0-0.7The [facility] HospitalComment on above: Performed By: #### CBC #### [facility] [address] [place] [address] [address] Caridad Figueroaosinophils/100 WBC (Bld)4.1 %Normal0.9-7.0The [facility] Comment on above:Performed By: #### CBC #### [facility] [address] [place] [address] Dr. Caridad Figueroarythrocyte distribution width (RBC) [Ratio]13.2 %Rvwxhm06.0-15.0 The [facility] HospitalComment on above:Performed By: #### CBC #### [facility] [address] [place] [address] Dr. Caridad CanadaHematocrit (Bld) [Volume fraction]42.5 %Fgampw21.0-48.0The [facility] HospitalComment on above:Performed By: #### CBC #### [facility] [address] [place] [address] Dr. Caridad CanadaHemoglobin (Bld) [Mass/Vol]14.2 g/gFCjkjcr74.0-16.0The [facility] HospitalComment on above:Performed By: #### CBC #### [facility] [address] [place] [address] Dr. Caridad Murdock #0.08 10e3/ulCritically high0.00-0.03The [facility] Comment on above:Performed By: #### CBC #### [facility] [address] [place] [address] Dr. Caridad Murdock %0.7 %Critically high0.0-0.5The [facility] HospitalComment on above:Performed By: #### CBC #### [facility] [address] [place] [address] Dr. Caridad Colunga #4.0 103/ulCritically high1.2-3.8The [facility] Comment on above:Performed By: #### CBC #### [facility] [address] [place] [address] Dr. Caridad Cuellarmphocytes/100 WBC (Bld)32.9 %Gjchhc95.5-60.0The [facility] HospitalComment on above:Performed By: #### CBC #### [facility] [address] [place] [address] Dr. Caridad Bonner DIFF REQNONormalThe [facility] HospitalComment on above: Performed By: #### CBC #### [facility] [address] [place] [address] Dr. Caridad Millard (RBC) [Entitic mass]28.8 uwWcvzhb59.7-34.0The [facility] HospitalComment on above:Performed By: #### CBC #### [facility] [address] [place] [address] Dr. Caridad Millard (RBC) [Mass/Vol]33.4 g/zJLidpcs49.9-35.2The [facility] HospitalComment on above:Performed By: #### CBC #### [facility] [address] [place] [address] Dr. Caridad Millard (RBC) [Entitic vol]86.2 kZXxplcy09.0-99.0The [facility] HospitalComment on above:Performed By: #### CBC #### [facility] [address] [place] [address] Dr. Caridad Hassan #0.7 103/ulNormal0.3-0.8The [facility] HospitalComment on above:Performed By: #### CBC #### [facility] [address] [place] [address] Dr. Caridad Hollidayocytes/100 WBC (Bld)6.1 %Normal1.7-12.0[facility] Comment on above:Performed By: #### CBC #### [facility] [address] [place] [address] Dr. Caridad Zhou #6.7 103/ulCritically high1.4-6.5The [facility] Comment on above:Performed By: #### CBC #### [facility] [address] [place] [address] [address] Caridad Forbesutrophils/100 WBC (Bld)55.3 %Pzkres82.0-75.0[facility] HospitalComment on above:Performed By: #### CBC #### [facility] [address] [place] [address] [address] Caridad CanadaPlatelet mean volume (Bld) [Entitic vol]12.1 fLNormal9.5-13.5The [facility] HospitalComment on above:Performed By: #### CBC #### [facility] [address] [place] [address] [address] Caridad CanadaPLT320 103/lbMwussr385-554Tov [facility] HospitalComment on above: Performed By: #### CBC #### [facility] [address] [place] [address] [address] Caridad CanadaRBC4.93 106/ulNormal4.20-5.40The [facility] HospitalComment on above:Performed By: #### CBC #### [facility] [address] [place] [address] [address] Caridad CanadaWBC12.1 103/ulCritically high4.0-11.0[facility] HospitalComment on above:Performed By: #### CBC #### [facility] [address] [place] [address] [address] Caridad CanadaFRKYLE T4on 16-42-4316Pwxo T4 [Mass/Vol]1.22 ng/dLNormal0.76-1.46 The [facility] HospitalComment on above:Performed By: #### FT4 ####[facility] [address] [place] [address]Dr.Yilan CanadaLIPID PROFILEon 34-70-7565QSAS-HDL RATIO [facility] Comment on above:Result Comment: 3.3 - 4.4 LOW RISK 4.4 - 7.1 AVERAGE RISK 7.1 - 11.0 MODERATE RISK >11.0 HIGH RISKPerformed By: #### CMP, LIPID, TSH #### [facility] [address] [place] [address] [address] Caridad CanadaCholesterol [Mass/Vol]181 mg/dLNormal<=200[facility] Comment on above:Performed By: #### CMP, LIPID, TSH #### [facility] [address] [place] [address] Dr. Caridad CanadaCholesterol in HDL [Mass/Vol]30 mg/dLCritically tue90-53Zop [facility] HospitalComment on above:Performed By: #### CMP, LIPID, TSH #### [facility] [address] [place] [address] Dr. Caridad CanadaCholesterol in LDL [Mass/Vol]74.6 mg/dLNoPomerene HospitalComment on above:Performed By: #### CMP, LIPID, TSH #### [facility] [address] [place] [address] Dr. Caridad Oliveiraesternevaeh.total/Cholesterol in HDL [Mass ratio]6.0 {ratio} NormalThe [facility] HospitalComment on above:Performed By: #### CMP, LIPID, TSH #### [facility] [address] [place] [address] Dr. Caridad Casper NORMAL> or = 60 mg/dl - LOW CARDIOVASCULAR RISK <40 mg/dl - HIGH CARDIOVASCULAR RISKChildren's Hospital for RehabilitationComment on above:Performed By: #### CMP, LIPID, TSH #### [facility] [address] [place] [address] Dr. Caridad CanadaLDL CALC NORMALSEE BELOWChildren's Hospital for RehabilitationComment on above:Result Comment: <100 mg/dl OPTIMAL 100 - 129 mg/dl NEAR OR ABOVE OPTIMAL 130 - 159 mg/dl BORDERLINE HIGH 160 - 189 mg/dl HIGH >190 mg/dl VERY HIGH Performed By: #### CMP, LIPID, TSH #### [facility] [address] [place] [address] Dr. Caridad CanadaTriglyceride [Mass/Vol]382 mg/dLCritically high<=150The [facility] HospitalComment on above:Performed By: #### CMP, LIPID, TSH #### [facility] [address] [place] [address] [address] Caridad GilliamLDL CALC76.4 mg/dLNormalThe [facility] HospitalComment on above: Performed By: #### CMP, LIPID, TSH #### [facility] [address] [place] [address] [address] Caridad CanadaPROF 14(COMP METB)on 15-85-4317Xezrviz [Mass/Vol]3.6 g/dLNormal 3.4-5.0The [facility] HospitalComment on above:Performed By: #### CMP, LIPID, TSH #### [facility] [address] [place] [address] Dr. Caridad CanadaAlbumin/Globulin [Mass ratio]0.8 {ratio}NormalThe [facility] HospitalComment on above:Performed By: #### CMP, LIPID, TSH #### [facility] [address] [place] [address] Dr. Caridad Wolfe [Catalytic activity/Vol]98 U/QUavjiv04-350Ujs [facility] HospitalComment on above:Performed By: #### CMP, LIPID, TSH #### [facility] [address] [place] [address] Dr. Caridad Murray [Catalytic activity/Vol]53 U/ADmpjxu78-53Bfz [facility] Hospitalment on above:Performed By: #### CMP, LIPID, TSH #### [facility] [address] [place] [address] Dr. Caridad Saunders gap [Moles/Vol]13.6 mmol/LNormalThe [facility] on above:Performed By: #### CMP, LIPID, TSH #### [facility] [address] [place] [address] Dr. Caridad Cano [Catalytic activity/Vol]28 U/CRsfeez31-43Sxs [facility] Hospitalment on above:Performed By: #### CMP, LIPID, TSH #### [facility] [address] [place] [address] Dr. Caridad CanadaBilirubin [Mass/Vol]0.4 mg/dLNormal0.2-1.0The [facility] Comment on above:Performed By: #### CMP, LIPID, TSH #### [facility] [address] [place] [address] Dr. Caridad CanadaCalcium [Mass/Vol]9.2 mg/dLNormal8.5-10.1The [facility] Comment on above:Performed By: #### CMP, LIPID, TSH #### [facility] [address] [place] [address] Dr. Caridad CanadaChloride [Moles/Vol]99 mmol/EWpcdhc92-548Dzd [facility] Comment on above:Performed By: #### CMP, LIPID, TSH #### [facility] [address] [place] [address] Dr. Caridad CanadaCO2 [Moles/Vol]29.8 mmol/OEztduc52.0-32.0The [facility] Comment on above:Performed By: #### CMP, LIPID, TSH #### [facility] [address] [place] [address] Dr. Caridad CanadaCreatinine [Mass/Vol]0.66 mg/dLNormal0.55-1.02The [facility] HospitalComment on above:Performed By: #### CMP, LIPID, TSH #### [facility] [address] [place] [address] Dr. Caridad FigueroaGFR-AF TRINIDADIAN>60Normal>=60The [facility] HospitalComment on above:Performed By: #### CMP, LIPID, TSH #### [facility] [address] [place] [address] Dr. Caridad FigueroaGFR-NON AF TRINIDADIAN>60Normal>=60The [facility] HospitalComment on above:Performed By: #### CMP, LIPID, TSH #### [facility] [address] [place] [address] Dr. Caridad CanadaGlobulin (S) [Mass/Vol]4.3 g/dLNormalThe [facility] HospitalComment on above:Performed By: #### CMP, LIPID, TSH #### [facility] [address] [place] [address] Dr. Caridad CanadaGlucose [Mass/Vol]301 mg/dLCritically mncx62-648Otp [facility] HospitalComment on above:Performed By: #### CMP, LIPID, TSH #### [facility] [address] [place] [address] [address] Caridad CanadaPotassium [Moles/Vol]3.4 mmol/LCritically low3.5-5.1The [facility] HospitalComment on above:Performed By: #### CMP, LIPID, TSH #### [facility] [address] [place] [address] Dr. Caridad CanadaProtein [Mass/Vol]7.9 g/dLNormal6.4-8.2The [facility] Comment on above:Performed By: #### CMP, LIPID, TSH #### [facility] [address] [place] [address] Dr. Caridad CanadaSodium [Moles/Vol]139 mmol/YBfxcvm737-680Vps [facility] Comment on above:Performed By: #### CMP, LIPID, TSH #### [facility] [address] [place] [address] Dr. Caridad CanadaUrea nitrogen [Mass/Vol]6.0 mg/dLCritically low7.0-18.0The [facility] HospitalComment on above:Performed By: #### CMP, LIPID, TSH #### [facility] [address] [place] [address] Dr. Caridad CanadaUrea nitrogen/Creatinine [Mass ratio]9.1 mg/mgNormalThe [facility] Memorial HospitalComment on above:Performed By: #### CMP, LIPID, TSH #### [facility] [address] [place] [address] Dr. Caridad Dodge [id number] uIU/mLNormal0.358-3.740The [facility] HospitalComment on above:Performed By: #### CMP, LIPID, TSH #### [facility] [address] [place] [address] Dr. Caridad Sauceda [id number] (PAINMN) INDRANICHOLE CHIRINOS ([id number]) 1955 F Date Time Provider Department 01/25/21 [...] A DAY NEEDED FOR PAIN DIRECTED - umzthf-lfruenvx-ynueqsh (ZENPEP) 40,000-126,000- 168,000 unit delayed release capsule [...] mouth once daily. - blood sugar diagnostic (Plei VERIO) test strip Use as instructed Problem [...] DIRECTED Encounter Status:Closed by JACEY CABRAL on 01/25/21No[facility] HospitalAN[facility] POSTPROC EVALon [id number] POSTPROC EVALHNO ID: [id number] Author: Jayce Chase DO Service: Anesthesiology Author [...] August 31, 2020 TIME: 9:44 AM CSN: [id number] HospitalANES PRE-OPon 08-31-2020 ANES PRE-OPHNO ID: [id number] Author: Jayce Chase DO Service: Anesthesiology Author [...] A DAY NEEDED FOR PAIN DIRECTED - pjgvxh-dibazhwq-ssnwkhk (ZENPEP) 40,000-126,000- 168,000 unit cpDR Take 2 [...] mouth once daily. - blood sugar diagnostic (ClearGistTOUCH VERIO) test strip Use as instructed I have interviewed and examined the patient. I have reviewed the medical record and/or the pre-anesthesia evaluation, pertinent labs, and test results. This contains updated information obtained within 48 hours of Surgery/Procedure. SIGNATURE: Chino Graves DO PATIENT NAME: Nichole Sandhu DATE: August 31, 2020 TIME: 7:27 AM CSN: [id number] HospitalCNCOon [id number] Letter TextNoKindred HospitalHISTORY PHYSICALon [id number] PHYSICALHNO ID: [id number] Author: Chaz Benitez PA-C Service: Gastroenterology Author Type: Physician Flat Sheet Maker Type: HANDP Filed: 08/31/2020 8:10 AM Note [...] is colonoscopy. Medication reconciliation list reviewed in [facility]. Past medical history, past surgical history, social history and family history reviewed and updated in [facility]. ALLERGIES Allergen Reactions - Ativan [Lorazepam] [...] Sandhu DATE: August 31, 2020 TIME: 7:28 [facility] [id number] PROGHNO ID: [id number] Author: Ericka Hughes RN Service: Gastroenterology Author Type: Registered Nurse Type: Nursing Progress Note Filed: 09/01/2020 10:56 AM Note Text: [facility] POST PROCEDURE FOLLOW UP CALL [phone] (home) Date Phone Call Made: 09/01/2020 Attempt: [...] your experience more pleasant? No Ericka Hughes RNNoThe [facility] PATHOLOGYon 08-31-2020 SURGICAL PATHOLOGYSpecimen originated from [facility] Specimen #: [id number] Submitting Physician: JAYCE STEPHEN FINAL DIAGNOSIS 1. [...] in one cassette. Gross examination performed at [facility], [address] [place] [address] 08/31/2020 2:17:20 PM Date of Report: 09/01/2020 Date of Procedure: 08/31/2020 Date of Receipt: 08/31/2020 Submitted by: JAYCE STEPHEN Location: [facility] Diagnostic interpretation performed at [facility], [address] [place] [address], [place] [address]. CLIA Number: [id number] Hospital NURSING PROGon [id number] BRIAN ID: [id number] Author: Rosibel Aiken RN Service: ? Author Type: Registered Nurse Type: Nursing Progress Note Filed: 08/30/2020 2:11 PM Note Text: [facility] ENDOSCOPY PRE PROCEDURE CALL Diana. I'm calling from [facility] endoscopy to provide you with the [...] confirm the name and relationship of your recycle driver. Breana Sandhu What is the best number for your recycle driver to be reached at tomorrow for updates? [phone] At this time due to COVID precautions [...] to proceed. Are you familiar with where [facility] is located?yes Address [facility] Patient instructed to enter through the main hospital entrance off [place] at [address] through the revolving doors and check in at the main desk with your recycle driver's license and insurance card. yes If anesthesia or sedation is being given: Patient instructed you must have an adult recycle driver because you will not be able to work or drive for the rest of the day after your test.yes Patient instructed not bring any valuables, jewelry, or ponce and wear comfortable clothing. Do not wear makeup, lotion, or finger romansh. yes Patient instructed: Do not eat or [...] given Any barriers to Patient learning (confusion? Compensation Consulting Manager needed?): Patient/Patient Apprentice Photographer responded appropriately on phone. Type of instruction given: Verbal by telephone contact.[facility] [id number] (SPDIG) NICHOLE SANDHU ([id number]) 1955 F Date Time Provider Department 08/18/20 [...] instructed that they will need a designated recycle driver on the day of the exam. [...] A DAY NEEDED FOR PAIN DIRECTED - fytrfj-hhhitwhx-papcvwk (ZENPEP) 40,000-126,000- 168,000 unit cpDR Take 2 [...] 40 mg by mouth once daily. - zhyokc-ksmjqacg-jitxkze (ZENPEP) 40,000-126,000- 168,000 unit cpDR Take 2 [...] mouth once daily. - blood sugar diagnostic (Plei VERIO) test strip Use as instructed Problem [...] Encounter Status:Closed by BERNARDA PÉREZ Deborah on 08/18/20[facility] Coding Summary.on 96-97-6764Taefzu Summary.CODING DATE: 01/16/2018 FINAL [facility] STATUS: Home (Routine DC) PAYOR: [facility] [place] [facility] DESCRIPTION 5571 Level 1 Imaging with [...] Sherin Denny CphT Date Saved: 01/16/2018 07:44 amNSt. Vincent HospitalCoding Summary. on 96-06-2567Rgctls Summary.CODING DATE: 12/27/2017 FINAL [facility] STATUS: Home (Routine DC) PAYOR: [facility] [place] ADMIT DX: REASON FOR VISIT DX: E61.1 [...] Sherin Denny CphT Date Saved: 12/27/2017 02:09 pmNSt. Vincent HospitalAuto Diffon 77-52-4467Irntekakg/100 WBC (Bld)0.2 %Normal0.0-2.0[facility] Comment on above:Order Comment: Order Added by Discern Expert.Performed By: #### [id number], 52477294, 10566834, 7697252, 5603640 #### [facility] [address] [place] [address] 50325Rsmqvkywe/Leukocytes Auto (Bld) [Pure # fraction]0.0 E9/LNormal 0.0-0.2FSumma HealthComment on above:Order Comment: Order Added by Discern Expert.Performed By: #### 5041565, 31027443, 35021308, 4833800, 2602807 #### [facility] [address] [place] [address] 69345Ecdxnnbgcmk/100 WBC (Bld)0.9 %Normal0.0-8.0[facility] Boardman HospitalComment on above:Order Comment: Order Added by Discern Expert.Performed By: #### 9633402, 01124418, 54024458, 2329772, 1985309 #### [facility] [address] [place] [address] 98078Hbdfqkrsled/Leukocytes Auto (Bld) [Pure # fraction]0.1 E9/L Normal0.0-0.5FSumma HealthComment on above:Order Comment: Order Added by Discern Expert.Performed By: #### 0900094, 82354331, 09160268, 9549335, 1934618 #### [facility] [address] [place] [address] 78945Jqgupbhpdbp/100 WBC (Bld)8.4 %Low14.0-50.0[facility] Board[facility] HospitalComment on above:Order Comment: Order Added by Discern Expert.Performed By: #### 6312269, 77409274, 46795004, 4216884, 6914304 #### [facility] [address] [place] [address] 32549Imzstrtntaf/Leukocytes Auto (Bld) [Pure # fraction]1.3 E9/L Normal1.0-4.0[facility] Board[facility] HospitalComment on above:Order Comment: Order Added by Discern Expert.Performed By: #### 3447694, 75413961, 64377104, 8744654, 3653450 #### [facility] [address] [place] [address] 77723Ilotzuekh/100 WBC (Bld)6.8 %Normal4.0-14.0[facility] Boardman HospitalComment on above:Order Comment: Order Added by Discern Expert.Performed By: #### 3393797, 64197380, 56460060, 0535841, 7889188 #### [facility] [address], [place] [address]Rrxdgjjel/Leukocytes Auto (Bld) [Pure # fraction]1.1 E9/LHigh 0.2-1.0[facility] Board[facility] HospitalComment on above:Order Comment: Order Added by Discern Expert.Performed By: #### 8567087, 77281016, 95807224, 6982775, 1905586 #### [facility] [address] [place] [address] 37031Utkhqaxmuyt/100 WBC (Bld)83.7 %High36.0-75.0[facility] Board[facility] HospitalComment on above:Order Comment: Order Added by Discern Expert. Performed By: #### 7422684, 16959557, 26137925, 7185609, 1413740 #### [facility] [address] [place] [address] 26072Slimfnbwzaf/Leukocytes Auto (Bld) [Pure # fraction]13.1 E9/L High2.0-7.5FSumma HealthComment on above:Order Comment: Order Added by Discern Expert.Performed By: #### 2662930, 85488086, 20441802, 4948128, 8917186 #### [facility] [address] [place] [address] 61860UYH w/ Auto Diffon 09-50-1642Knbvrgwxvgq distribution width (RBC) [Ratio]16.4 %High10.9-14.2FSumma HealthComment on above: Performed By: #### 2010724, 10554919, 01485739, 6646995, 0427339 #### [facility] [address] [place] [address] 10471Qjwxvuuyby (Bld) [Volume fraction]29.6 %Low34.0-46.0[facility] HospitalComment on above:Performed By: #### 4824190, 62489549, 52967546, 9336449, 6393679 #### [facility] [address], [place] [address]Bdamzeslko (Bld) [Mass/Vol]9.2 g/dLLow12.0-16.0[facility] Board[facility] HospitalComment on above:Performed By: #### 1716583, 18881812, 38657874, 5069576, 4626988 #### [facility] [address], [place] [address]HMS (RBC) [Entitic mass]23.6 pgLow27.0-34.0[facility] Board[facility] HospitalComment on above:Performed By: #### 3800962, 05643354, 72423485, 2172623, 5989701 #### [facility] [address] [place] [address] 44747JHVR (RBC) [Mass/Vol]31.1 g/dLLow31.4-39.3FSumma HealthComment on above:Performed By: #### 1743290, 01443663, 11051817, 1728338, 1329368 #### [facility] [address] [place] [address] 82622AOF (RBC) [Entitic vol]75.9 fLLow80.0-100.0[facility] Board[facility] HospitalComment on above:Performed By: #### 9353913, 00712113, 96481386, 7130614, 1101953 #### [facility] [address], [place] [address]Pnvfcxug mean volume (Bld) [Entitic vol]10.2 fLNormal6.4-10.[address] [facility] Boardman HospitalComment on above:Performed By: #### 0631073, 90950464, 69970137, 2735116, 0324208 #### [facility] [address] [place] [address] 46090Ggpamaqhz (Bld) [#/Vol]375.0 E9/QHbfiow242.0-500.0[facility] HospitalComment on above:Performed By: #### 4666764, 50894800, 46135431, 1993558, 0764306 #### [facility] [address] [place] [address] 32093WOB (Bld) [#/Vol]3.9 E12/LLow4.3-5.9[facility] Comment on above:Performed By: #### 3752612, 29577974, 68510394, 0852309, 7353473 #### [facility] [address] [place] [address] 90660VOH corrected for nucl RBC Auto (Bld) [#/Vol]15.6 E9/LHigh 4.0-11.0[facility] HospitalComment on above:Performed By: #### 0741307, 20783264, 37816988, 0404586, 3926851 #### [facility] [address] [place] [address] 15776UWVwq 37-69-3278Npayvfk [Mass/Vol]0.6 g/dLLow1.1-2.2FSumma HealthComment on above:Performed By: #### 5372836, 08467068, 15064254, 8921125, 9327601 #### [facility] [address] [place] [address] 92197Wppigfr [Mass/Vol]2.9 g/dLLow3.3-5.0[facility] Comment on above:Performed By: #### 7645449, 20581285, 08399215, 0549972, 1125714 #### [facility] [address] [place] [address] 90425HGE [Catalytic activity/Vol]62 Int._Unit/KAhxjzn58-50RudyyvMercy Health St. Elizabeth Boardman HospitalComment on above:Performed By: #### 2711702, 04103930, 32446302, 6218572, 9698550 #### [facility] [address] [place] [address] 87891ZKU No additional P-5'-P [Catalytic activity/Vol]12 Int._Unit/L Normal6-46[facility] Board[facility] HospitalComment on above:Performed By: #### 8278143, 87517759, 85666382, 4039955, 9024026 #### [facility] [address], [place] [address]Vagkc gap [Moles/Vol]16 mmol/LNormal6-16[facility] Board[facility] HospitalComment on above:Performed By: #### 2390540, 82803664, 02619527, 7052157, 2570984 #### [facility] [address], [place] [address]DSX [Catalytic activity/Vol]19 Int._Unit/LNormal5-43[facility] HospitalComment on above:Performed By: #### 0277279, 00227485, 50193101, 2819999, 0099971 #### [facility] [address], [place] [address]Rhmjqfmcg [Mass/Vol]0.5 mg/dLNormal0.0-1.1FSumma HealthComment on above:Performed By: #### 1091413, 97092603, 08323387, 9708120, 2521055 #### [facility] [address], [place] [address]Xesxeca [Mass/Vol]8.9 mg/dLNormal8.9-11.1FSumma HealthComment on above:Performed By: #### 0454471, 84976308, 64538152, 1520147, 5860785 #### [facility] [address], [place] [address]Aosnbwbm [Moles/Vol]98 mmol/GZdq906-262XklwjcMercy Health St. Elizabeth Boardman HospitalComment on above:Performed By: #### 8464983, 16353292, 23023855, 5552299, 4830206 #### [facility] [address], [place] [address]OH7 [Moles/Vol]26 mmol/BZfmbud66-33CgcvsyMercy Health St. [facility] Comment on above:Performed By: #### 6696166, 22409817, 38049848, 8771542, 3465606 #### [facility] [address] [place] [address] 93200Zxiliwctah [Mass/Vol]0.5 mg/dLNormal0.5-1.3FSumma HealthComment on above:Performed By: #### 4263639, 19678834, 24681281, 5893755, 1443639 #### [facility] [address], [place] [address]Pjuelixj (S) [Mass/Vol]4.8 g/dLHigh1.4-4.0[facility] HospitalComment on above:Performed By: #### 5459539, 79529866, 18319066, 7684541, 7920862 #### [facility] [address] [place] [address] 47079Bbdrkvg [Mass/Vol]105 mg/yJHdkoye38-228LggzbeMercy Health St. Elizabeth Boardman HospitalComment on above:Result Comment: If this glucose result represents a fasting glucose, interpretation should refer tothe following reference range: 55-99 mg/dLPerformed By: #### 4537746, 50990762, 41229217, 8833865, 8530853 #### [facility] [address] [place] [address] 11646Rpbdcrlam [Moles/Vol]3.7 mmol/LNormal3.5-5.3FSumma HealthComment on above:Performed By: #### 5028283, 96527549, 44153688, 6977035, 2994407 #### [facility] [address], [place] [address]Axpuzdi [Mass/Vol]7.7 g/dLNormal6.0-7.8[facility] Board[facility] HospitalComment on above:Performed By: #### 8803616, 23698731, 97964021, 9393858, 1431803 #### [facility] [address] [place] [address] 334[address]Bburys [Moles/Vol]136 mmol/JJrfclr181-037VayaouMercy Health St. Elizabeth Boardman HospitalComment on above:Performed By: #### 2278724, 68901430, 99156405, 3432823, 4086883 #### [facility] [address], [place] [address]Hzbx nitrogen [Mass/Vol]9 mg/dLNormal5-21[facility] HospitalComment on above:Performed By: #### 3801001, 13011037, 28608495, 7269840, 8371802 #### [facility] [address], [place] [address]Fehb nitrogen/Creatinine [Mass ratio]18 No CnyrhZyxnxq12-[address] [facility] Board[facility] HospitalComment on above:Performed By: #### 3322899, 13671763, 65014286, 6364114, 4997351 #### [facility] [address], [place] [address]Hwmwusy 20-71-2682Qupbpvunppor Ql (Bld)[facility] Medical CenterComment on above:Order Comment: Order Added by Discern Expert.Performed By: #### 1126405, 35707326, 22116792, 2345347, 2118523 #### [facility] [address], [place] [address]Xraombqzzr Víctor (Bld) [Interp]See MorphologyKettering Health Greene MemorialComment on above:Order Comment: Order Added by Discern Expert. Performed By: #### 6319728, 21029985, 77858316, 6173372, 1567145 #### [facility] [address], [place] [address]Arscjluok Large LM Ql (Bld)[facility] Medical CenterComment on above:Order Comment: Order Added by Discern Expert.Performed By: #### 2785729, 98995823, 64939077, 8524517, 2220967 #### [facility] [address], [place] [address]nWJAmh 29-52-3777KHP/1.73 sq M predicted among blacks MDRD (S/P/Bld) [Vol rate/Area]mL/min/{1.73_m2}Normal>=59[facility] Comment on above:Order Comment: Order added by Discern Expert.Result Comment: eGFR is race adjusted. AA=.Performed By: #### 9558060, 83910053, 54071017, 6460020, 5103215 #### [facility] [address], [place] [address]QMJ/1.73 sq M predicted among non-blacks MDRD (S/P/Bld) [Vol rate/Area]mL/min/{1.73_m2}Normal>=59[facility] Board[facility] HospitalComment on above: Order Comment: Order added by Discern Expert.Result Comment: Chronic kidney disease could be indicated at eGFR's of less than 60 mL/min/1.73m2. Kidney failure is indicated at less than 15 mL/min/1.73m2.Performed By: #### 7415113, 21964564, 56138598, 3704645, 8573932 #### [facility] [address] [place], [place] [address]Byndim Summary.on 95-47-8587Bjiagm Summary.CODING DATE: 12/18/2017 FINAL [facility] STATUS: Home (Routine DC) PAYOR: [facility] [place] [facility] DESCRIPTION 5571 Level 1 Imaging with [...] By: Rachel Degroot Date Saved: 12/18/2017 12:[address] Elizabeth Boardman HospitalCreatinineon 33-17-2475Tafenvvggg [Mass/Vol]0.5 mg/dLNormal0.5-1.3FSumma Health Comment on above:Performed By: #### 70057892, 5689130 #### [facility] [address], [place] [address]tDJHyx 76-84-3548YBM/1.73 sq M predicted among blacks MDRD (S/P/Bld) [Vol rate/Area]mL/min/{1.73_m2}Normal>=59[facility] Comment on above:Order Comment: Order added by Discern Expert.Result Comment: eGFR is race adjusted. AA=.Performed By: #### 25971865, 1053811 #### [facility] [address], [place] [address]UBG/1.73 sq M predicted among non-blacks MDRD (S/P/Bld) [Vol rate/Area]mL/min/{1.73_m2}Normal>=59[facility] Board[facility] HospitalComment on above: Order Comment: Order added by Discern Expert.Result Comment: Chronic kidney disease could be indicated at eGFR's of less than 60 mL/min/1.73m2. Kidney failure is indicated at less than 15 mL/min/1.73m2.Performed By: #### 61078830, 7354521 #### [facility] [address], [place] [address]Zaku, Bloodon 58-10-2289Yzed, BloodSpecimen Description .BLOOD Special Requests LT HAND Culture NO GROWTH 6 DAYS Report Status FINAL 11/08/2017[facility] - TrumbullComment on above:Performed By: #### LIP, LACWB, IOCAL, PT, CDP, CHANDU, PTT, LIPR, CMPX ####[employer] [address] [place], [place] [address] Cult,Bloodon 79-23-6102Vbko,BloodSpecimen Description .BLOOD Special Requests NOT REPORTED Culture NO GROWTH 6 DAYS Report Status FINAL 11/08/2017[facility] - TrumbullComment on above:Performed By: #### LIP, LACWB, IOCAL, PT, CDP, CHANDU, PTT, LIPR, CMPX ####[facility] [address] [place] [address] Plan of Careon 17-32-7238INX IP Note OR TranscriptionNormalOhiohealth Doctors Hospital Basic Metabolic Profon 11-03-2017(cont.)NormalOhiohealth Doctors Hospital Comment on above:Result Comment: Average GFR for 60-69 years old: 85 mL/min/1.73sq mChronic Kidney Disease: <60 mL/min/1.73sq mKidney failure: <15 mL/min/1.73sq meGFR calculated using average adult body mass. Additional eGFR calculator available at:http://www.charming charlie/multiple_crcl_2012.htmPerformed By: #### LIP, LACWB, IOCAL, PT, CDP, CHANDU, PTT, LIPR, CMPX ####[employer] [address] [place] [address] Anion gap 3 molar conc9 mmol/LNormal9-17Ohiohealth Doctors HospitalComment on above:Performed By: #### LIP, LACWB, IOCAL, PT, CDP, CHANDU, PTT, LIPR, CMPX ####[facility] [address] [place] [address] Calcium mass conc8.3 mg/dLLow8.6-10.4 [facility] Doctors HospitalComment on above:Performed By: #### LIP, LACWB, IOCAL, PT, CDP, CHANDU, PTT, LIPR, CMPX ####[facility] [address] [place] [address] Chloride molar fllu368 mmol/RRlii84-774BxjubOhiohealth Doctors HospitalComment on above:Performed By: #### LIP, LACWB, IOCAL, PT, CDP, CHANDU, PTT, LIPR, CMPX ####[facility] [address] [place] [address] DB6 molar conc26 mmol/JPhfhab40-55EtwynOhiohealth Doctors HospitalComment on above:Performed By: #### LIP, LACWB, IOCAL, PT, CDP, CHANDU, PTT, LIPR, CMPX ####[facility] [address] [place] [address] Creatinine mass conc0.84 mg/dLNormal0.50-0.90[facility] Comment on above:Performed By: #### LIP, LACWB, IOCAL, PT, CDP, CHANDU, PTT, LIPR, CMPX ####[place] [address] GFR, Amer>60Normal>60Ohiohealth Doctors HospitalComment on above: Performed By: #### LIP, LACWB, IOCAL, PT, CDP, CHANDU, PTT, LIPR, CMPX ####[place] [address] GFR,non Amer>60 Normal>60Ohio[facility] Doctors HospitalComment on above:Performed By: #### LIP, LACWB, IOCAL, PT, CDP, CHANDU, PTT, LIPR, CMPX ####[place] [address] Glucose mass nxam806 mg/eRCsjx19-72Wxoxd [facility] HospitalComment on above:Performed By: #### LIP, LACWB, IOCAL, PT, CDP, CHANDU, PTT, LIPR, CMPX ####[place] [address] Potassium molar conc4.2 mmol/LNormal3.7-5.3Mwilson healthy [facility] HospitalComment on above:Performed By: #### LIP, LACWB, IOCAL, PT, CDP, CHANDU, PTT, LIPR, CMPX ####[address] [address] Sodium molar twsk023 mmol/BOfxl655-533GdooqOhiohealth Doctors HospitalComment on above:Performed By: #### LIP, LACWB, IOCAL, PT, CDP, CHANDU, PTT, LIPR, CMPX ####[facility] [address] [place] [address] Urea nitrogen mass conc25 mg/dLHigh8-23Ohio[facility] Doctors HospitalComment on above:Performed By: #### LIP, LACWB, IOCAL, PT, CDP, CHANDU, PTT, LIPR, CMPX ####[place] [address] BUN/CRE RatioNOT REPORTEDNormal9-20Ohio[facility] Doctors HospitalComment on above:Performed By: #### LIP, LACWB, IOCAL, PT, CDP, CHANDU, PTT, LIPR, CMPX ####[place] [address] Staging:NOT REPORTEDNoalOhiohealth Doctors HospitalComment on above: Performed By: #### LIP, LACWB, IOCAL, PT, CDP, CHANDU, PTT, LIPR, CMPX ####[place] [address] CBC with Diffon [id number]. Basophil0.00 k/uLNormal0.0-0.2[facility] Comment on above:Performed By: #### LIP, LACWB, IOCAL, PT, CDP, CHANDU, PTT, LIPR, CMPX ####[place] [address] Abs.Imm.Granulocyte0.33 k/uLHigh0.00-0.30[facility] HospitalComment on above:Performed By: #### LIP, LACWB, IOCAL, PT, CDP, CHANDU, PTT, LIPR, CMPX ####[place], [place] [phone].Neutrophil (Seg)13.12 k/uLHigh1.8-7.7[facility] Doctors HospitalComment on above: Performed By: #### LIP, LACWB, IOCAL, PT, CDP, CHANDU, PTT, LIPR, CMPX ####[address] [address] Basophils/100 WBC Auto (Bld)0 %Normal0-2MScripps Mercy HospitalComment on above:Performed By: #### LIP, LACWB, IOCAL, PT, CDP, CHANDU, PTT, LIPR, CMPX ####[address] [address] Eosinophils Auto #/vol (Bld)0.00 10*3/uL Normal0.0-0.4[facility] Doctors HospitalComment on above:Performed By: #### LIP, LACWB, IOCAL, PT, CDP, CHANDU, PTT, LIPR, CMPX ####[address] [address] Eosinophils/100 WBC Auto (Bld)0 %Low1-4 [facility] HospitalComment on above:Performed By: #### LIP, LACWB, IOCAL, PT, CDP, CHANDU, PTT, LIPR, CMPX ####[place] [address] Immature granulocytes #/vol (Bld)2 %Noyt1WbgrkOhiohealth Doctors HospitalComment on above:Performed By: #### LIP, LACWB, IOCAL, PT, CDP, CHANDU, PTT, LIPR, CMPX ####[address] [address] Lymphocytes Auto #/vol (Bld)1.49 10*3/uLNormal1.0-4.8[facility] Doctors HospitalComment on above:Performed By: #### LIP, LACWB, IOCAL, PT, CDP, CHANDU, PTT, LIPR, CMPX ####[address] [address] Lymphocytes/100 WBC Auto (Bld)9 %Mtz30-81IazfkOhiohealth Doctors HospitalComment on above:Performed By: #### LIP, LACWB, IOCAL, PT, CDP, CHANDU, PTT, LIPR, CMPX ####Naheedkeyla [address] [place] [address] Monocytes Auto #/vol (Bld)1.66 10*3/uLHigh0.1-0.8[facility] Doctors HospitalComment on above:Performed By: #### LIP, LACWB, IOCAL, PT, CDP, CHANDU, PTT, LIPR, CMPX ####[facility] [address] [place] [address] Monocytes/100 WBC Auto (Bld)10 %High1-7[facility] Doctors HospitalComment on above:Performed By: #### LIP, LACWB, IOCAL, PT, CDP, CHANDU, PTT, LIPR, CMPX ####[place] [address] Morphology Interp Víctor (Bld)ANISOCYTOSIS PRESENTNormalOhiohealth Doctors HospitalComment on above:Result Comment: INCREASED BANDS PRESENTTOXIC GRANULATION PRESENTPerformed By: #### LIP, LACWB, IOCAL, PT, CDP, CHANDU, PTT, LIPR, CMPX ####[address] [phone] (Seg)79 %Ibic08-91ZffdnOhiohealth Doctors Hospital Comment on above:Performed By: #### LIP, LACWB, IOCAL, PT, CDP, CHANDU, PTT, LIPR, CMPX ####[address] [address] Erythrocyte distribution width Auto Ratio (RBC)15.1 %High11.8-14.4[facility] Doctors HospitalComment on above:Performed By: #### LIP, LACWB, IOCAL, PT, CDP, CHANDU, PTT, LIPR, CMPX ####[place], [place] [id number])[phone] Auto Volume Fraction (Bld)35.4 %Low36.3-47.1MScripps Mercy HospitalComment on above:Performed By: #### LIP, LACWB, IOCAL, PT, CDP, CHANDU, PTT, LIPR, CMPX ####[place] [address] Hemoglobin mass conc (Bld)10.6 g/dLLow11.9-15.1MScripps Mercy HospitalComment on above:Performed By: #### LIP, LACWB, IOCAL, PT, CDP, CHANDU, PTT, LIPR, CMPX ####[place] [address] MCH Auto Entitic mass (RBC)26.3 yoVqmcov03.2-33.5[facility] Doctors HospitalComment on above:Performed By: #### LIP, LACWB, IOCAL, PT, CDP, CHANDU, PTT, LIPR, CMPX ####[place] [address] MCHC Auto mass conc (RBC)29.9 g/nFJphqse69.4-34.8[facility] Doctors HospitalComment on above:Performed By: #### LIP, LACWB, IOCAL, PT, CDP, CHANDU, PTT, LIPR, CMPX ####[place] [address] MCV Auto Entitic volume (RBC)87.8 lCNmrezj33.6-102.9[facility] Doctors HospitalComment on above:Performed By: #### LIP, LACWB, IOCAL, PT, CDP, CHANDU, PTT, LIPR, CMPX ####[place], [place] [id number])[phone] Automated0.1 per 100 WBCHigh0.0[facility] Doctors HospitalComment on above:Performed By: #### LIP, LACWB, IOCAL, PT, CDP, CHANDU, PTT, LIPR, CMPX ####[place] [address] Platelet mean volume Auto Entitic volume (Bld)11.4 fLNormal8.1-13.5[facility] Doctors HospitalComment on above:Performed By: #### LIP, LACWB, IOCAL, PT, CDP, CHANDU, PTT, LIPR, CMPX ####[place], [place] [id number])[phone] Auto #/vol (Bld)267 10*3/sLFggfox406-109PrdwgOhiohealth Doctors HospitalComment on above:Performed By: #### LIP, LACWB, IOCAL, PT, CDP, CHANDU, PTT, LIPR, CMPX ####[place], [place] [phone])[phone] Auto #/vol (Bld)4.03 10*6/uLNormal3.95-5.11[facility] Doctors HospitalComment on above:Performed By: #### LIP, LACWB, IOCAL, PT, CDP, CHANDU, PTT, LIPR, CMPX ####[place], [place] [phone])[phone] Auto #/vol (Bld)16.6 10*3/uLHigh3.5-11.3MScripps Mercy HospitalComment on above:Performed By: #### LIP, LACWB, IOCAL, PT, CDP, CHANDU, PTT, LIPR, CMPX ####[place], [place] [phone] Diff PerformedNOT REPORTEDSsm Health CarealOhiohealth Doctors HospitalComment on above:Performed By: #### LIP, LACWB, IOCAL, PT, CDP, CHANDU, PTT, LIPR, CMPX ####[facility] [address] [place] [address] Platelets Auto #/vol (Bld)NOT REPORTEDSelect [facility] Comment on above:Performed By: #### LIP, LACWB, IOCAL, PT, CDP, CHANDU, PTT, LIPR, CMPX ####[address] [address] RBC morphology finding Nom (Bld)NOT REPORTEDSelect [facility] Comment on above:Performed By: #### LIP, LACWB, IOCAL, PT, CDP, CHANDU, PTT, LIPR, CMPX ####[address] [address] WBC MorphologyNOT REPORTEDSelect Medical Specialty Hospital - TrumbullComment on above: Performed By: #### LIP, LACWB, IOCAL, PT, CDP, CHANDU, PTT, LIPR, CMPX ####[place] [address] Abs. Basophil0.00 k/uL Normal0.0-0.2MScripps Mercy HospitalComment on above:Performed By: #### LIP, LACWB, IOCAL, PT, CDP, CHANDU, PTT, LIPR, CMPX ####[place] [address] Abs.Imm.Granulocyte0.16 k/uLNormal 0.00-0.30[facility] HospitalComment on above:Performed By: #### LIP, LACWB, IOCAL, PT, CDP, CHANDU, PTT, LIPR, CMPX ####[place] [address] Abs.Neutrophil (Seg)13.34 k/uLHigh1.8-7.7 [facility] HospitalComment on above:Performed By: #### LIP, LACWB, IOCAL, PT, CDP, CHANDU, PTT, LIPR, CMPX ####[address] [address] Basophils/100 WBC Auto (Bld)0 %Normal0-2[facility] HospitalComment on above:Performed By: #### LIP, LACWB, IOCAL, PT, CDP, CHANDU, PTT, LIPR, CMPX ####[address] [address] Eosinophils Auto #/vol (Bld)0.00 10*3/uLNormal0.0-0.4[facility] Doctors HospitalComment on above:Performed By: #### LIP, LACWB, IOCAL, PT, CDP, CHANDU, PTT, LIPR, CMPX ####[address] [address] Eosinophils/100 WBC Auto (Bld)0 %Low1-4[facility] Doctors HospitalComment on above:Performed By: #### LIP, LACWB, IOCAL, PT, CDP, CHANDU, PTT, LIPR, CMPX ####[place] [address] Immature granulocytes #/vol (Bld)1 %Sxar7PlyloOhiohealth Doctors HospitalComment on above:Performed By: #### LIP, LACWB, IOCAL, PT, CDP, CHADNU, PTT, LIPR, CMPX ####[address] [address] Lymphocytes Auto #/vol (Bld)1.10 10*3/uLNormal1.0-4.8[facility] Doctors HospitalComment on above:Performed By: #### LIP, LACWB, IOCAL, PT, CDP, CHANDU, PTT, LIPR, CMPX ####[address] [address] Lymphocytes/100 WBC Auto (Bld)7 %Cae69-08JgfpwOhiohealth Doctors HospitalComment on above:Performed By: #### LIP, LACWB, IOCAL, PT, CDP, CHANDU, PTT, LIPR, CMPX ####[address]is[address] [place] [address] Monocytes Auto #/vol (Bld)1.10 10*3/uLHigh0.1-0.8[facility] Doctors HospitalComment on above:Performed By: #### LIP, LACWB, IOCAL, PT, CDP, CHANDU, PTT, LIPR, CMPX ####[facility] [address] [place] [address] Monocytes/100 WBC Auto (Bld)7 %Normal1-7[facility] Doctors HospitalComment on above:Performed By: #### LIP, LACWB, IOCAL, PT, CDP, CHANDU, PTT, LIPR, CMPX ####[facility] [address] [place] [address] Morphology Interp Víctor (Bld)INCREASED BANDS PRESENTNormalOhiohealth Doctors HospitalComment on above:Result Comment: TOXIC GRANULATION PRESENTANISOCYTOSIS PRESENTPerformed By: #### LIP, LACWB, IOCAL, PT, CDP, CHANDU, PTT, LIPR, CMPX ####[place] [address] Neutrophil (Seg)85 %Yqko09-97HivyyOhiohealth Doctors Hospital Comment on above:Performed By: #### LIP, LACWB, IOCAL, PT, CDP, CHANDU, PTT, LIPR, CMPX ####[facility] [address] [place] [address] Erythrocyte distribution width Auto Ratio (RBC)15.0 %High11.8-14.4[facility] Doctors HospitalComment on above:Performed By: #### LIP, LACWB, IOCAL, PT, CDP, CHANDU, PTT, LIPR, CMPX ####[facility] [address] [place] [address] Hematocrit Auto Volume Fraction (Bld)35.5 %Low36.3-47.1MScripps Mercy HospitalComment on above:Performed By: #### LIP, LACWB, IOCAL, PT, CDP, CHANDU, PTT, LIPR, CMPX ####[place] [address] Hemoglobin mass conc (Bld)10.8 g/dLLow11.9-15.1MScripps Mercy HospitalComment on above:Performed By: #### LIP, LACWB, IOCAL, PT, CDP, CHANDU, PTT, LIPR, CMPX ####[place] [address] MCH Auto Entitic mass (RBC)26.5 fmHqerhs48.2-33.5[facility] Doctors HospitalComment on above:Performed By: #### LIP, LACWB, IOCAL, PT, CDP, CHANDU, PTT, LIPR, CMPX ####[place] [address] MCHC Auto mass conc (RBC)30.4 g/aKZkjvwv02.4-34.8[facility] Doctors HospitalComment on above:Performed By: #### LIP, LACWB, IOCAL, PT, CDP, CHANDU, PTT, LIPR, CMPX ####[place] [address] MCV Auto Entitic volume (RBC)87.2 pPIcogky70.6-102.9[facility] Doctors HospitalComment on above:Performed By: #### LIP, LACWB, IOCAL, PT, CDP, CHANDU, PTT, LIPR, CMPX ####[place], [place] [id number])[phone] Automated0.0 per 100 WBCNormal0.0[facility] Doctors HospitalComment on above:Performed By: #### LIP, LACWB, IOCAL, PT, CDP, CHANDU, PTT, LIPR, CMPX ####[facility] [address] [place] [address] Platelet mean volume Auto Entitic volume (Bld)11.7 fLNormal 8.1-13.5[facility] HospitalComment on above:Performed By: #### LIP, LACWB, IOCAL, PT, CDP, CHANDU, PTT, LIPR, CMPX ####[place] [address] Platelets Auto #/vol (Bld)260 10*3/uLNormal 138-453[facility] Doctors HospitalComment on above:Performed By: #### LIP, LACWB, IOCAL, PT, CDP, CHANDU, PTT, LIPR, CMPX ####[place] [address] RBC Auto #/vol (Bld)4.07 10*6/uLNormal3.95-5.11 [facility] HospitalComment on above:Performed By: #### LIP, LACWB, IOCAL, PT, CDP, CHANDU, PTT, LIPR, CMPX ####[place] [address] WBC Auto #/vol (Bld)15.7 10*3/uLHigh3.5-11.3 [facility] HospitalComment on above:Performed By: #### LIP, LACWB, IOCAL, PT, CDP, CHANDU, PTT, LIPR, CMPX ####[place] [address] Auto Diff PerformedNOT REPORTEDSelect Medical Specialty Hospital - TrumbullComment on above:Performed By: #### LIP, LACWB, IOCAL, PT, CDP, CHANDU, PTT, LIPR, CMPX ####[facility] [address] [place] [address] Platelets Auto #/vol (Bld)NOT REPORTEDSelect Medical Specialty Hospital - TrumbullComment on above:Performed By: #### LIP, LACWB, IOCAL, PT, CDP, CHANDU, PTT, LIPR, CMPX ####[facility] [address] [place] [address] RBC morphology finding Nom (Bld)NOT REPORTEDSelect Medical Specialty Hospital - TrumbullComment on above:Performed By: #### LIP, LACWB, IOCAL, PT, CDP, CHANDU, PTT, LIPR, CMPX ####[facility] [address] [place] [address] WBC MorphologyNOT REPORTEDSelect Medical Specialty Hospital - TrumbullComment on above:Performed By: #### LIP, LACWB, IOCAL, PT, CDP, CHANDU, PTT, LIPR, CMPX ####[facility] [address] [place] [address] CT ABDOMEN PELVIS W IV CONTRASTon [id number] ABDOMEN PELVIS W IV CONTRAST EXAMINATION:CT OF [...] PROVIDED HISTORY: necrotic pancreatitis seen on previous [facility], and worsening ileus on KUBTECHNOLOGIST PROVIDED HISTORY:FINDINGS:Cardiovascular: [...] and anasarca.Interpreted by:VIRGIL Woodsigned by:Abhishek Cat MD11/03/inal resultNormalOhiohealth Doctors Hospital Calcium, Ionicon 61-28-9606Zevmlop mass conc1.21 mmol/LNormal1.13-1.33[facility] Doctors HospitalComment on above:Performed By: #### LIP, LACWB, IOCAL, PT, CDP, CHANDU, PTT, LIPR, CMPX ####[id number] [place] [phone] Comp Metabolic Pr/rfx MGon 11-03-2017(cont.)NormalOhiohealth Doctors HospitalComment on above:Result Comment: Average GFR for 60-69 years old: 85 mL/min/1.73sq mChronic Kidney Disease: <60 mL/min/1.73sq mKidney failure: <15 mL/min/1.73sq meGFR calculated using average adult body mass. Ad ditional eGFR calculator available at:http://www.FOBO.Spoonfed/multiple_crcl_2012.htmPerformed By: #### LIP, LACWB, IOCAL, PT, CDP, CHANDU, PTT, LIPR, CMPX ####[address] [place] [address] Albumin mass conc2.3 g/dLLow3.5-5.2[facility] State HospitalComment on above:Performed By: #### LIP, LACWB, IOCAL, PT, CDP, CHANDU, PTT, LIPR, CMPX ####[facility] [address] [place] [address] Albumin/Globulin mass ratio0.7 {ratio}Low1.0-2.5[facility] Doctors HospitalComment on above:Performed By: #### LIP, LACWB, IOCAL, PT, CDP, CHANDU, PTT, LIPR, CMPX ####[place] [address] [place] [address] Alkaline Phos84 U/IQhtibw63-598RsxefOhiohealth Doctors HospitalComment on above:Performed By: #### LIP, LACWB, IOCAL, PT, CDP, CHANDU, PTT, LIPR, CMPX ####[place] [address] [place] [address] ALT enzyme act/vol44 U/LHigh5-33[facility] Doctors HospitalComment on above: Performed By: #### LIP, LACWB, IOCAL, PT, CDP, CHANDU, PTT, LIPR, CMPX ####[address] [address] Anion gap 3 molar conc12 mmol/LNormal9-17[facility] Doctors HospitalComment on above:Performed By: #### LIP, LACWB, IOCAL, PT, CDP, CHANDU, PTT, LIPR, CMPX ####[place] [address] [place] [address] AST enzyme act/vol43 U/LHigh<32[facility] Doctors HospitalComment on above:Performed By: #### LIP, LACWB, IOCAL, PT, CDP, CHANDU, PTT, LIPR, CMPX ####[place] [address] [place] [address] Bilirubin Ql (U)0.51 mg/dLNormal0.3-1.2MScripps Mercy HospitalComment on above:Performed By: #### LIP, LACWB, IOCAL, PT, CDP, CHANDU, PTT, LIPR, CMPX ####[facility] [address] [place] [address] Calcium mass conc8.3 mg/dLLow8.6-10.4[facility] Doctors HospitalComment on above:Performed By: #### LIP, LACWB, IOCAL, PT, CDP, CHANDU, PTT, LIPR, CMPX ####[facility] [address] [place] [address] Chloride molar orqy884 mmol/QEmlgdn09-601YfthaOhiohealth Doctors HospitalComment on above:Performed By: #### LIP, LACWB, IOCAL, PT, CDP, CHANDU, PTT, LIPR, CMPX ####[facility] [address] [place] [address] NF0 molar conc 23 mmol/HRislji49-22HoaxxOhiohealth Doctors HospitalComment on above:Performed By: #### LIP, LACWB, IOCAL, PT, CDP, CHANDU, PTT, LIPR, CMPX ####[facility] [address] [place] [phone] mass conc0.90 mg/dLNormal0.50-0.90[facility] Doctors HospitalComment on above:Performed By: #### LIP, LACWB, IOCAL, PT, CDP, CHANDU, PTT, LIPR, CMPX ####[facility] [address] [place] [phone], Amer>60 Normal>60[facility] Doctors HospitalComment on above:Performed By: #### LIP, LACWB, IOCAL, PT, CDP, CHANDU, PTT, LIPR, CMPX ####[facility] [address] [place] [address] GFR,non Amer>60Normal>60[facility] Doctors HospitalComment on above:Performed By: #### LIP, LACWB, IOCAL, PT, CDP, CHANDU, PTT, LIPR, CMPX ####[facility] [address] [place] [address] Glucose mass dhvi369 mg/wLYefs53-36FsjagScripps Mercy HospitalComment on above:Performed By: #### LIP, LACWB, IOCAL, PT, CDP, CHANDU, PTT, LIPR, CMPX ####[facility] [address] [place] [address] Potassium molar conc3.8 mmol/LNormal3.7-5.3MScripps [facility] Comment on above:Performed By: #### LIP, LACWB, IOCAL, PT, CDP, CHANDU, PTT, LIPR, CMPX ####[facility] [address] [place] [address] Protein mass conc5.7 g/dLLow6.4-8.3MScripps Mercy HospitalComment on above: Performed By: #### LIP, LACWB, IOCAL, PT, CDP, CHANDU, PTT, LIPR, CMPX ####[facility] [address] [place] [address] Sodium molar prwx900 mmol/XJfqhwy499-730XuricOhiohealth Doctors HospitalComment on above:Performed By: #### LIP, LACWB, IOCAL, PT, CDP, CHANDU, PTT, LIPR, CMPX ####[facility] [address] [place] [address] Urea nitrogen mass conc 26 mg/dLHigh8-23[facility] Doctors HospitalComment on above:Performed By: #### LIP, LACWB, IOCAL, PT, CDP, CHANDU, PTT, LIPR, CMPX ####[place] [address] BUN/CRE RatioNOT REPORTEDNormal9-20[facility] Doctors HospitalComment on above:Performed By: #### LIP, LACWB, IOCAL, PT, CDP, CHANDU, PTT, LIPR, CMPX ####[facility] [address] [place] [address] Staging:NOT REPORTEDSelect [facility] Comment on above:Performed By: #### LIP, LACWB, IOCAL, PT, CDP, CHANDU, PTT, LIPR, CMPX ####[facility] [address] [place] [address] Cult,Urine,Cathon [id number],Urine,CathSpecimen Description .CATHETERIZED URINE Special Requests NOT REPORTED Culture NO GROWTH Report Status FINAL 11/02/2017[facility] - TrumbullComment on above:Performed By: #### LIP, LACWB, IOCAL, PT, CDP, CHANDU, PTT, LIPR, CMPX ####[employer] [address] [place] [address] Discharge Summaryon [id number] IP Note OR TranscriptionNormalMercy Patton State HospitalPlan of Careon [id number] IP Note OR TranscriptionNormalOhiohealth Doctors HospitalHI IP Note OR TranscriptionNormKeenan Private HospitalProgress Noteon [id number] IP Note OR TranscriptionNormalOhiohealth Doctors HospitalHIM IP Note OR TranscriptionNormalOhiohealth Doctors HospitalHIM IP Note OR TranscriptionNormalOhiohealth Doctors Hospital HIM IP Note OR TranscriptionNoKettering Health Greene MemorialXR ABDOMEN (KUB) (SINGLE AP VIEW)on [id number] ABDOMEN (KUB) (SINGLE AP VIEW) EXAMINATION:SINGLE SUPINE XRAY VIEW(S) OF THE ABDOMEN11/03/2017 8:42 amCOMPARISON:CT abdomen pelvis from 10/30/2017HISTORY:ORDERING SYSTEM PROVIDED HISTORY: reeval ileusTECHNOLOGIST PROVIDED HISTORY:reeval mxtba73-peyf-gnx female; re-evaluate ileusFINDINGS:Portable supine view of the abdomen.Enteric tube traverses the GE junction with distal tip overlying the midmidline abdomen, likely within the body of the stomach. Blunting of the leftcostophrenic angle may represent chronic pleural thickeningversus smallleft-sided pleural effusion. Stable left basilar opacity, atelectasis,infiltrate, or mild scarring.air sampling and monitoring leads overlie the abdomen. Mild diffuse degenerative [...] nterpreted by:VIRGIL Gutierrezigned by:Braeden Chavez MD11/03/inal result NormalOhiohealth Doctors HospitalAPTTon [id number] Coag time (Bld)27.1 kCgaxvk26.5-30.5[facility] Doctors HospitalComment on above:Performed By: #### LIP, LACWB, IOCAL, PT, CDP, CHANDU, PTT, LIPR, CMPX ####[id number] [place] [id number] Amylaseon [id number] enzyme act/huu775 U/FNghc44-811YnuonOhiohealth Doctors HospitalComment on above: Performed By: #### LIP, LACWB, IOCAL, PT, CDP, CHANDU, PTT, LIPR, CMPX ####[place], [place] [phone] with Diffon [id number]. Basophil0.00 k/uLNormal0.00-0.20[facility] Comment on above:Performed By: #### LIP, LACWB, IOCAL, PT, CDP, CHANDU, PTT, LIPR, CMPX ####[facility] [address] [place] [address] Abs.Imm.Granulocyte0.14 k/uLNormal0.00-0.30[facility] Comment on above:Performed By: #### LIP, LACWB, IOCAL, PT, CDP, CHANDU, PTT, LIPR, CMPX ####[place] [address] Abs.Neutrophil (Seg)11.01 k/uLHigh1.50-8.10[facility] Comment on above:Performed By: #### LIP, LACWB, IOCAL, PT, CDP, CHANDU, PTT, LIPR, CMPX ####[place] [address] Basophils/100 WBC Auto (Bld)0 %Normal0-2MercFrank R. Howard Memorial HospitalComment on above:Performed By: #### LIP, LACWB, IOCAL, PT, CDP, CHANDU, PTT, LIPR, CMPX ####[place] [address] Eosinophils Auto #/vol (Bld)0.00 10*3/uLNormal0.00-0.44[facility] Comment on above:Performed By: #### LIP, LACWB, IOCAL, PT, CDP, CHANDU, PTT, LIPR, CMPX ####[facility] [address] [place] [address] Eosinophils/100 WBC Auto (Bld)0 %Low1-4[facility] Doctors HospitalComment on above:Performed By: #### LIP, LACWB, IOCAL, PT, CDP, CHANDU, PTT, LIPR, CMPX ####[facility] [address] [place] [address] Immature granulocytes #/vol (Bld)1 %Fgql5YzocxOhiohealth Doctors HospitalComment on above:Performed By: #### LIP, LACWB, IOCAL, PT, CDP, CHANDU, PTT, LIPR, CMPX ####[facility] [address] [place] [address] Lymphocytes Auto #/vol (Bld)1.09 10*3/uLLow1.10-3.70[facility] Doctors HospitalComment on above:Performed By: #### LIP, LACWB, IOCAL, PT, CDP, CHANDU, PTT, LIPR, CMPX ####[facility] [address] [place] [address] Lymphocytes/100 WBC Auto (Bld)8 %Cyz01-37GmyyeOhiohealth Doctors HospitalComment on above:Performed By: #### LIP, LACWB, IOCAL, PT, CDP, CHANDU, PTT, LIPR, CMPX ####[facility] [address] [place] [address] Monocytes Auto #/vol (Bld)1.36 10*3/uLHigh0.10-1.20Ohio[facility] Doctors HospitalComment on above:Performed By: #### LIP, LACWB, IOCAL, PT, CDP, CHANDU, PTT, LIPR, CMPX ####[facility] [address] [place] [address] Monocytes/100 WBC Auto (Bld)10 %Normal3-12[facility] Doctors HospitalComment on above: Performed By: #### LIP, LACWB, IOCAL, PT, CDP, CHANDU, PTT, LIPR, CMPX ####[facility] [address] [place] [address] Morphology Interp Víctor (Bld)ANISOCYTOSIS PRESENTNormalOhiohealth Doctors HospitalComment on above: Result Comment: TOXIC GRANULATION PRESENTPerformed By: #### LIP, LACWB, IOCAL, PT, CDP, CHANDU, PTT, LIPR, CMPX ####[facility] [address] [place] [address] Neutrophil (Seg)81 %Lpoj38-17OqufwOhiohealth Doctors Hospital Comment on above:Performed By: #### LIP, LACWB, IOCAL, PT, CDP, CHANDU, PTT, LIPR, CMPX ####[place] [address] NRBC Automated0.0 per 100 WBCNormal0.0[facility] Doctors HospitalComment on above:Performed By: #### LIP, LACWB, IOCAL, PT, CDP, CHANDU, PTT, LIPR, CMPX ####[place] [address] Platelet mean volume Auto Entitic volume (Bld)11.5 fLNormal8.1-13.5[facility] Doctors HospitalComment on above:Performed By: #### LIP, LACWB, IOCAL, PT, CDP, CHANDU, PTT, LIPR, CMPX ####[place] [address] Platelets Auto #/vol (Bld)231 10*3/fUBvvqcg689-906VkkzdOhiohealth Doctors HospitalComment on above:Performed By: #### LIP, LACWB, IOCAL, PT, CDP, CHANDU, PTT, LIPR, CMPX ####[place] [address] WBC Auto #/vol (Bld)13.6 10*3/uLHigh3.5-11.3MScripps Mercy HospitalComment on above:Performed By: #### LIP, LACWB, IOCAL, PT, CDP, CHANDU, PTT, LIPR, CMPX ####[place], [place] [id number])[phone] distribution width Auto Ratio (RBC)14.8 %High11.8-14.4[facility] Doctors HospitalComment on above:Performed By: #### LIP, LACWB, IOCAL, PT, CDP, CHANDU, PTT, LIPR, CMPX ####[place] [address] Hematocrit Auto Volume Fraction (Bld)34.5 %Low36.3-47.1MScripps Mercy HospitalComment on above:Performed By: #### LIP, LACWB, IOCAL, PT, CDP, CHANDU, PTT, LIPR, CMPX ####[place] [address] Hemoglobin mass conc (Bld)10.3 g/dLLow11.9-15.1MScripps [facility] Hospital Comment on above:Performed By: #### LIP, LACWB, IOCAL, PT, CDP, CHANDU, PTT, LIPR, CMPX ####[place] [address] MCH Auto Entitic mass (RBC)26.3 jrUtavbf77.2-33.5[facility] Doctors HospitalComment on above:Performed By: #### LIP, LACWB, IOCAL, PT, CDP, CHANDU, PTT, LIPR, CMPX ####[place] [address] MCHC Auto mass conc (RBC)29.9 g/cKZiirey94.4-34.8[facility] Doctors HospitalComment on above:Performed By: #### LIP, LACWB, IOCAL, PT, CDP, CHANDU, PTT, LIPR, CMPX ####[facility] [address] [place] [address] MCV Auto Entitic volume (RBC)88.0 sOHtbjkm38.6-102.9[facility] Comment on above:Performed By: #### LIP, LACWB, IOCAL, PT, CDP, CHANDU, PTT, LIPR, CMPX ####[place] [address] RBC Auto #/vol (Bld)3.92 10*6/uLLow3.95-5.11[facility] Doctors HospitalComment on above:Performed By: #### LIP, LACWB, IOCAL, PT, CDP, CHANDU, PTT, LIPR, CMPX ####[place] [address] Auto Diff PerformedNOT REPORTEDSelect Medical Specialty Hospital - TrumbullComment on above: Performed By: #### LIP, LACWB, IOCAL, PT, CDP, CHANDU, PTT, LIPR, CMPX ####[place] [address] Platelets Auto #/vol (Bld)NOT REPORTEDSelect Medical Specialty Hospital - TrumbullComment on above: Performed By: #### LIP, LACWB, IOCAL, PT, CDP, CHANDU, PTT, LIPR, CMPX ####[facility] [address] [place] [address] RBC morphology finding Nom (Bld)NOT REPORTEDSelect Medical Specialty Hospital - TrumbullComment on above: Performed By: #### LIP, LACWB, IOCAL, PT, CDP, CHANDU, PTT, LIPR, CMPX ####[address] [address] WBC MorphologyNOT REPORTEDSelect Medical Specialty Hospital - TrumbullComment on above:Performed By: #### LIP, LACWB, IOCAL, PT, CDP, CHANDU, PTT, LIPR, CMPX ####[place] [address] Abs. Basophil0.00 k/uLNormal0.0-0.2MScripps Mercy HospitalComment on above:Performed By: #### LIP, LACWB, IOCAL, PT, CDP, CHANDU, PTT, LIPR, CMPX ####[place] [address] Abs.Imm.Granulocyte0.12 k/uLNormal0.00-0.30[facility] Doctors HospitalComment on above:Performed By: #### LIP, LACWB, IOCAL, PT, CDP, CHANDU, PTT, LIPR, CMPX ####[place] [address] Abs.Neutrophil (Seg)9.24 k/uLHigh1.8-7.7Ohio[facility] Doctors HospitalComment on above:Performed By: #### LIP, LACWB, IOCAL, PT, CDP, CHANDU, PTT, LIPR, CMPX ####[place] [address] Basophils/100 WBC Auto (Bld)0 %Normal0-2MScripps Mercy HospitalComment on above:Performed By: #### LIP, LACWB, IOCAL, PT, CDP, CHANDU, PTT, LIPR, CMPX ####[place] [address] Eosinophils Auto #/vol (Bld)0.00 10*3/uLNormal0.0-0.4[facility] Doctors HospitalComment on above:Performed By: #### LIP, LACWB, IOCAL, PT, CDP, CHANDU, PTT, LIPR, CMPX ####[facility] [address] [place] [address] Eosinophils/100 WBC Auto (Bld)0 %Low1-4Ohio[facility] Doctors HospitalComment on above:Performed By: #### LIP, LACWB, IOCAL, PT, CDP, CHANDU, PTT, LIPR, CMPX ####[address] [address] Immature granulocytes #/vol (Bld)1 %Xdkl4BschjOhiohealth Doctors HospitalComment on above:Performed By: #### LIP, LACWB, IOCAL, PT, CDP, CHANDU, PTT, LIPR, CMPX ####[place] [address] Lymphocytes Auto #/vol (Bld)1.05 10*3/uLNormal1.0-4.8[facility] Doctors HospitalComment on above:Performed By: #### LIP, LACWB, IOCAL, PT, CDP, CHANDU, PTT, LIPR, CMPX ####[address] [address] Lymphocytes/100 WBC Auto (Bld)9 %Xwy06-31XbtuxOhiohealth Doctors HospitalComment on above:Performed By: #### LIP, LACWB, IOCAL, PT, CDP, CHANDU, PTT, LIPR, CMPX ####[address] [address] Monocytes Auto #/vol (Bld)1.29 10*3/uLHigh0.1-0.8[facility] Doctors HospitalComment on above:Performed By: #### LIP, LACWB, IOCAL, PT, CDP, CHANDU, PTT, LIPR, CMPX ####[address] [address] Monocytes/100 WBC Auto (Bld)11 %High1-7Ohio[facility] Doctors HospitalComment on above:Performed By: #### LIP, LACWB, IOCAL, PT, CDP, CHANDU, PTT, LIPR, CMPX ####[place] [address] Morphology Interp Víctor (Bld)ANISOCYTOSIS PRESENTNormalOhiohealth Doctors HospitalComment on above:Performed By: #### LIP, LACWB, IOCAL, PT, CDP, CHANDU, PTT, LIPR, CMPX ####[place] [address] Neutrophil (Seg)79 %Lajk08-09WkxczOhiohealth Doctors Hospital Comment on above:Performed By: #### LIP, LACWB, IOCAL, PT, CDP, CHANDU, PTT, LIPR, CMPX ####[place] [address] NRBC Automated0.0 per 100 WBCNormal0.0Ohio[facility] Doctors HospitalComment on above:Performed By: #### LIP, LACWB, IOCAL, PT, CDP, CHANDU, PTT, LIPR, CMPX ####[place] [address] Platelet mean volume Auto Entitic volume (Bld)11.8 fLNormal8.1-13.5Ohio[facility] Doctors HospitalComment on above:Performed By: #### LIP, LACWB, IOCAL, PT, CDP, CHANDU, PTT, LIPR, CMPX ####[place] [address] Platelets Auto #/vol (Bld)201 10*3/jEAzxfvg850-199IfyzpOhiohealth Doctors HospitalComment on above:Performed By: #### LIP, LACWB, IOCAL, PT, CDP, CHANDU, PTT, LIPR, CMPX ####[place] [address] WBC Auto #/vol (Bld)11.7 10*3/uLHigh3.5-11.3MScripps Mercy HospitalComment on above:Performed By: #### LIP, LACWB, IOCAL, PT, CDP, CHANDU, PTT, LIPR, CMPX ####[place], [place] [address]161419)[phone] distribution width Auto Ratio (RBC)14.7 %High11.8-14.4Ohio[facility] Doctors HospitalComment on above:Performed By: #### LIP, LACWB, IOCAL, PT, CDP, CHANDU, PTT, LIPR, CMPX ####[place] [address] Hematocrit Auto Volume Fraction (Bld)33.3 %Low36.3-47.1MScripps Mercy HospitalComment on above:Performed By: #### LIP, LACWB, IOCAL, PT, CDP, CHANDU, PTT, LIPR, CMPX ####[place] [address] Hemoglobin mass conc (Bld)10.3 g/dLLow11.9-15.1MScripps Mer[facility] Hospital Comment on above:Performed By: #### LIP, LACWB, IOCAL, PT, CDP, CHANDU, PTT, LIPR, CMPX ####[place], [place] [address])[phone] Auto Entitic mass (RBC)27.0 myHwosmi03.2-33.5Ohio[facility] Doctors HospitalComment on above:Performed By: #### LIP, LACWB, IOCAL, PT, CDP, CHANDU, PTT, LIPR, CMPX ####[place] [address] MCHC Auto mass conc (RBC)30.9 g/bOVqmxqe11.4-34.8Ohio[facility] Doctors HospitalComment on above:Performed By: #### LIP, LACWB, IOCAL, PT, CDP, CHANDU, PTT, LIPR, CMPX ####[facility] [address] [place] [address] MCV Auto Entitic volume (RBC)87.4 nGByplqb69.6-102.9[facility] Comment on above:Performed By: #### LIP, LACWB, IOCAL, PT, CDP, CHANDU, PTT, LIPR, CMPX ####[place] [address] RBC Auto #/vol (Bld)3.81 10*6/uLLow3.95-5.11[facility] Doctors HospitalComment on above:Performed By: #### LIP, LACWB, IOCAL, PT, CDP, CHANDU, PTT, LIPR, CMPX ####[place] [address] Auto Diff PerformedNOT REPORTEDSelect Medical Specialty Hospital - TrumbullComment on above: Performed By: #### LIP, LACWB, IOCAL, PT, CDP, CHANDU, PTT, LIPR, CMPX ####[place] [address] Platelets Auto #/vol (Bld)NOT REPORTEDSelect Medical Specialty Hospital - TrumbullComment on above: Performed By: #### LIP, LACWB, IOCAL, PT, CDP, CHANDU, PTT, LIPR, CMPX ####[facility] [address] [place] [address] RBC morphology finding Nom (Bld)NOT REPORTEDSelect Medical Specialty Hospital - TrumbullComment on above: Performed By: #### LIP, LACWB, IOCAL, PT, CDP, CHANDU, PTT, LIPR, CMPX ####[facility] [address] [place] [address] WBC MorphologyNOT REPORTEDSelect Medical Specialty Hospital - TrumbullComment on above:Performed By: #### LIP, LACWB, IOCAL, PT, CDP, CHANDU, PTT, LIPR, CMPX ####[facility] [address]av[address] [place] [address] Calcium, Ionicon [id number] mass conc1.08 mmol/LLow1.13-1.33Ohio[facility] Doctors HospitalComment on above: Performed By: #### LIP, LACWB, IOCAL, PT, CDP, CHANDU, PTT, LIPR, CMPX ####[facility] [address] [place] [address] Comp Metabolic Pr/rfx MG on 11-02-2017(cont.)NormalOhiohealth Doctors HospitalComment on above: Result Comment: Average GFR for 60-69 years old: 85 mL/min/1.73sq mChronic Kidney Disease: <60 mL/min/1.73sq mKidney failure: <15 mL/min/1.73sq meGFR calculated using average adult body mass. Additional eGFR calculator available at:http://www.charming charlie/multiple_crcl_2012.htmPerformed By: #### LIP, LACWB, IOCAL, PT, CDP, CHANDU, PTT, LIPR, CMPX ####[facility] [address] [place] [address] Albumin mass conc2.5 g/dLLow3.5-5.2MScripps Mercy HospitalComment on above:Performed By: #### LIP, LACWB, IOCAL, PT, CDP, CHANDU, PTT, LIPR, CMPX ####[facility] [address]dziqoek[address] [place] [address] Albumin/Globulin mass ratio0.7 {ratio}Low1.0-2.5Ohio[facility] Doctors HospitalComment on above:Performed By: #### LIP, LACWB, IOCAL, PT, CDP, CHANDU, PTT, LIPR, CMPX ####[facility] [address] [place] [address] Alkaline Phos74 U/OFrdoat04-671NoioyOhiohealth Doctors HospitalComment on above:Performed By: #### LIP, LACWB, IOCAL, PT, CDP, CHANDU, PTT, LIPR, CMPX ####[facility] [address]qugwzxrlat[address] [place] [address] ALT enzyme act/vol63 U/LHigh5-33[facility] Doctors HospitalComment on above: Performed By: #### LIP, LACWB, IOCAL, PT, CDP, CHANDU, PTT, LIPR, CMPX ####[facility] [address]af[address] [place] [address] Anion gap 3 molar conc14 mmol/LNormal9-17Ohio[facility] Doctors HospitalComment on above:Performed By: #### LIP, LACWB, IOCAL, PT, CDP, CHANDU, PTT, LIPR, CMPX ####[facility] [address] [place] [address] AST enzyme act/vol33 U/LHigh<32[facility] Doctors HospitalComment on above:Performed By: #### LIP, LACWB, IOCAL, PT, CDP, CHANDU, PTT, LIPR, CMPX ####[facility] [address]zh[address] [place] [address] Bilirubin Ql (U)0.80 mg/dLNormal0.3-1.2MScripps Mercy HospitalComment on above:Performed By: #### LIP, LACWB, IOCAL, PT, CDP, CHANDU, PTT, LIPR, CMPX ####[facility] [address]rhw[address] [place] [address] Calcium mass conc8.1 mg/dLLow8.6-10.4[facility] Doctors HospitalComment on above:Performed By: #### LIP, LACWB, IOCAL, PT, CDP, CHANDU, PTT, LIPR, CMPX ####[facility] [address] [place] [address] Chloride molar cbfn344 mmol/HVkxhhm86-873StxueQueen of the Valley Medical CenterComment on above:Performed By: #### LIP, LACWB, IOCAL, PT, CDP, CHANDU, PTT, LIPR, CMPX ####[facility] [address] [place] [address] ER3 molar conc 22 mmol/EElngam38-14BcvzxOhiohealth Doctors HospitalComment on above:Performed By: #### LIP, LACWB, IOCAL, PT, CDP, CHANDU, PTT, LIPR, CMPX ####[facility] [address] [place] [address] Creatinine mass conc0.85 mg/dLNormal0.50-0.90Ohio[facility] Doctors HospitalComment on above:Performed By: #### LIP, LACWB, IOCAL, PT, CDP, CHANDU, PTT, LIPR, CMPX ####[place] [address] GFR, Amer>60 Normal>60MerQueen of the Valley Medical CenterComment on above:Performed By: #### LIP, LACWB, IOCAL, PT, CDP, CHANDU, PTT, LIPR, CMPX ####[place] [address] GFR,non Amer>60Normal>60MerQueen of the Valley Medical CenterComment on above:Performed By: #### LIP, LACWB, IOCAL, PT, CDP, CHANDU, PTT, LIPR, CMPX ####[facility] [address] [place] [address] Glucose mass dgcz660 mg/vQMsjf42-65Pnufj [facility] State HospitalComment on above:Performed By: #### LIP, LACWB, IOCAL, PT, CDP, CHANDU, PTT, LIPR, CMPX ####[address] [address] Potassium molar conc3.8 mmol/LNormal3.7-5.3MercAdventHealth for ChildrenNorth [facility] Comment on above:Performed By: #### LIP, LACWB, IOCAL, PT, CDP, CHANDU, PTT, LIPR, CMPX ####[facility] [address]uw[address] [place] [address] Protein mass conc5.9 g/dLLow6.4-8.3MScripps Mercy HospitalComment on above: Performed By: #### LIP, LACWB, IOCAL, PT, CDP, CHANDU, PTT, LIPR, CMPX ####[facility] [address] [place] [address] Sodium molar btgj105 mmol/KOnphqe232-233VpywsOhiohealth Doctors HospitalComment on above:Performed By: #### LIP, LACWB, IOCAL, PT, CDP, CHANDU, PTT, LIPR, CMPX ####[place] [address] Urea nitrogen mass conc 17 mg/dLNormal8-23[facility] Doctors HospitalComment on above:Performed By: #### LIP, LACWB, IOCAL, PT, CDP, CHANDU, PTT, LIPR, CMPX ####[facility] [address] [place] [address] BUN/CRE RatioNOT REPORTEDNormal9-20[facility] Doctors HospitalComment on above:Performed By: #### LIP, LACWB, IOCAL, PT, CDP, CHANDU, PTT, LIPR, CMPX ####[facility] [address]tzxxq[address] [place], [place] [phone]:NOT REPORTEDNormalOhiohealth Doctors Hospital Comment on above:Performed By: #### LIP, LACWB, IOCAL, PT, CDP, CHANDU, PTT, LIPR, CMPX ####[facility] [address] [place] [address] (cont.) NormalOhiohealth Doctors HospitalComment on above:Result Comment: Average GFR for 60-69 years old: 85 mL/min/1.73sq mChronic Kidney Disease: <60 mL /min/1.73sq mKidney failure: <15 mL/min/1.73sq meGFR calculated using average adult body mass. Additional eGFR calculator available at:http://www.charming charlie/multiple_crcl_2012.htmPerformed By: #### LIP, LACWB, IOCAL, PT, CDP, CHANDU, PTT, LIPR, CMPX ####[facility] [address] [place] [address] Albumin mass conc2.4 g/dLLow3.5-5.2MScripps Mercy HospitalComment on above:Performed By: #### LIP, LACWB, IOCAL, PT, CDP, CHANDU, PTT, LIPR, CMPX ####[place] [address] Albumin/Globulin mass ratio0.7 {ratio}Low1.0-2.5Ohio[facility] Doctors HospitalComment on above:Performed By: #### LIP, LACWB, IOCAL, PT, CDP, CHANDU, PTT, LIPR, CMPX ####[place] [address] Alkaline Phos73 U/QJbbdct00-842HpybbOhiohealth Doctors HospitalComment on above:Performed By: #### LIP, LACWB, IOCAL, PT, CDP, CHANDU, PTT, LIPR, CMPX ####[address] [place] [address] ALT enzyme act/vol71 U/LHigh5-33[facility] Doctors HospitalComment on above: Performed By: #### LIP, LACWB, IOCAL, PT, CDP, CHANDU, PTT, LIPR, CMPX ####[place] [address] Anion gap 3 molar conc9 mmol/LNormal9-17[facility] Doctors HospitalComment on above:Performed By: #### LIP, LACWB, IOCAL, PT, CDP, CHANDU, PTT, LIPR, CMPX ####[facility] [address] [place] [address] AST enzyme act/vol34 U/LHigh<32[facility] Doctors HospitalComment on above:Performed By: #### LIP, LACWB, IOCAL, PT, CDP, CHANDU, PTT, LIPR, CMPX ####[facility] [address] [place] [address] Bilirubin Ql (U)0.87 mg/dLNormal0.3-1.2MScripps Mercy HospitalComment on above:Performed By: #### LIP, LACWB, IOCAL, PT, CDP, CHANDU, PTT, LIPR, CMPX ####[address] [address] Calcium mass conc7.8 mg/dLLow8.6-10.4[facility] Doctors HospitalComment on above:Performed By: #### LIP, LACWB, IOCAL, PT, CDP, CHANDU, PTT, LIPR, CMPX ####[place] [address] Chloride molar kcha234 mmol/SXdgz96-185MnelyOhiohealth Doctors HospitalComment on above:Performed By: #### LIP, LACWB, IOCAL, PT, CDP, CHANDU, PTT, LIPR, CMPX ####[facility] [address] [place] [address] MF1 molar conc 22 mmol/ARbgemv11-66TfrgrOhiohealth Doctors HospitalComment on above:Performed By: #### LIP, LACWB, IOCAL, PT, CDP, CHANDU, PTT, LIPR, CMPX ####[address] [address] Creatinine mass conc0.77 mg/dLNormal0.50-0.90MerQueen of the Valley Medical CenterComment on above:Performed By: #### LIP, LACWB, IOCAL, PT, CDP, CHANDU, PTT, LIPR, CMPX ####[facility] [address] [place] [address] GFR, Amer>60 Normal>60MerQueen of the Valley Medical CenterComment on above:Performed By: #### LIP, LACWB, IOCAL, PT, CDP, CHANDU, PTT, LIPR, CMPX ####[facility] [address] [place] [address] GFR,non Amer>60Normal>60[facility] Doctors HospitalComment on above:Performed By: #### LIP, LACWB, IOCAL, PT, CDP, CHANDU, PTT, LIPR, CMPX ####[facility] [address] [place] [address] Glucose mass hxaf578 mg/hHQfnp70-62Hpllg [facility] State HospitalComment on above:Performed By: #### LIP, LACWB, IOCAL, PT, CDP, CHANDU, PTT, LIPR, CMPX ####[address] [place] [address] Potassium molar conc3.7 mmol/LNormal3.7-5.3[facility] Comment on above:Performed By: #### LIP, LACWB, IOCAL, PT, CDP, CHANDU, PTT, LIPR, CMPX ####[facility] [address]iumiezzzk[address] [place] [address] Protein mass conc5.7 g/dLLow6.4-8.3[facility] State HospitalComment on above: Performed By: #### LIP, LACWB, IOCAL, PT, CDP, CHANDU, PTT, LIPR, CMPX ####[facility] [address]zbz[address] [place] [address] Sodium molar trik122 mmol/PPnzscy397-055Fvlhq [facility] Medical CenterComment on above:Performed By: #### LIP, LACWB, IOCAL, PT, CDP, CHANDU, PTT, LIPR, CMPX ####[facility] [address] [place] [address] Urea nitrogen mass conc 14 mg/dLNormal8-23[facility] Doctors HospitalComment on above:Performed By: #### LIP, LACWB, IOCAL, PT, CDP, CHANDU, PTT, LIPR, CMPX ####[facility] [address] [place] [address] BUN/CRE RatioNOT REPORTEDSsm Health Careal9-20[facility] Doctors HospitalComment on above:Performed By: #### LIP, LACWB, IOCAL, PT, CDP, CHANDU, PTT, LIPR, CMPX ####[facility] [address] [place] [address] Staging:NOT REPORTEDSelect Medical Specialty [facility] Comment on above:Performed By: #### LIP, LACWB, IOCAL, PT, CDP, CHANDU, PTT, LIPR, CMPX ####[facility] [address]keopgy[address] [place] [address] Consulton [id number] IP Note OR TranscriptionSelect Medical Specialty Hospital - Trumbull Hgb/Hcton 18-38-9955Rqgpfmehtx Auto Volume Fraction (Bld)35.4 %Low36.3-47.1MScripps Mercy HospitalComment on above:Performed By: #### LIP, LACWB, IOCAL, PT, CDP, CHANDU, PTT, LIPR, CMPX ####[facility] [address] [place] [address] Hemoglobin mass conc (Bld)10.6 g/dLLow11.9-15.1MScripps Mercy HospitalComment on above:Performed By: #### LIP, LACWB, IOCAL, PT, CDP, CHANDU, PTT, LIPR, CMPX ####[facility] [address]tmxnwdnzo[address]01 [place] [address] Hematocrit Auto Volume Fraction (Bld)34.1 %Low36.3-47.1MScripps Mercy HospitalComment on above:Performed By: #### LIP, LACWB, IOCAL, PT, CDP, CHANDU, PTT, LIPR, CMPX ####[facility] [address]vrglykvn[address] [place] [address] Hemoglobin mass conc (Bld)10.4 g/dLLow11.9-15.1MScripps Mercy HospitalComment on above:Performed By: #### LIP, LACWB, IOCAL, PT, CDP, CHANDU, PTT, LIPR, CMPX ####[facility] [address]xwefs[address] [place] [address] Lactic Acid,Whole Blon 11-63-0716Piqctd Acid,Whole Bl1.1 mmol/LNormal0.7-2.1MScripps Mercy HospitalComment on above:Performed By: #### LIP, LACWB, IOCAL, PT, CDP, CHANDU, PTT, LIPR, CMPX ####[address] [place] [address] Lipaseon 11-02-2017 Lipase enzyme act/vol54 U/UPkbsxd76-19OdflfOhiohealth Doctors HospitalComment on above:Performed By: #### LIP, LACWB, IOCAL, PT, CDP, CHANDU, PTT, LIPR, CMPX ####[facility] [address]any[address] [place] [address] Lipid Profile on 28-96-3351Kuwgzmxvolr in HDL mass conc16 mg/dLLow>40Ohio[facility] Doctors HospitalComment on above:Result Comment: HDL Guidelines: <40 Undesirable 40-59 Borderline >59 DesirablePerformed By: #### LIP, LACWB, IOCAL, PT, CDP, CHANDU, PTT, LIPR, CMPX ####[facility] [address]vo[address] [place] [address] Cholesterol in LDL mass conc55 mg/dLNormal0-130[facility] Comment on above:Result Comment: LDL Guidelines: <100 Desirable 100-129 Near to/above Desirable 130-159 Borderline >159 UndesirableDirect (measured) LDL and calculated LDL are not interchangeable tests.Performed By: #### LIP, LACWB, IOCAL, PT, CDP, CHANDU, PTT, LIPR, CMPX ####[facility] [address]wg[address] [place] [address] Cholesterol mass conc96 mg/dLNormal<200Ohio[facility] Doctors HospitalComment on above:Result Comment: Cholesterol Guidelines: <200 Desirable 200-240 Borderline >240 UndesirablePerformed By: #### LIP, LACWB, IOCAL, PT, CDP, CHANDU, PTT, LIPR, CMPX ####[facility] [address]riqobdg[address] [place] [address]([facility])[phone].total/Cholesterol in HDL mass ratio 6.0 {ratio}High<5Ohio[facility] Doctors HospitalComment on above:Performed By: #### LIP, LACWB, IOCAL, PT, CDP, CHANDU, PTT, LIPR, CMPX ####[facility] [address]fh[address]bs[address] [place] [address]([facility])[phone] mass kvsd660 mg/dLNormal<150 [facility] Doctors HospitalComment on above:Result Comment: Triglyceride Guidelines: <150 Desirable 150-199 Borderline 200-499 High >499 Very high Based on AHA Guidelines for fasting triglyceride, November 2011.Performed By: #### LIP, LACWB, IOCAL, PT, CDP, CHANDU, PTT, LIPR, CMPX ####[facility] [address]ohttbmsw[address]117 [place] [address]([facility])[phone] in VLDL mass concNOT REPORTEDNormal 1-30[facility] Doctors HospitalComment on above:Performed By: #### LIP, LACWB, IOCAL, PT, CDP, CHANDU, PTT, LIPR, CMPX ####[address] [address] MRSA, DNA, Nasalon [id number], DNA, Nasal NEGATIVE: MRSA DNA not detected by nucleic acid amplification.CrystalNMRSAAOhiohealth Doctors HospitalComment on above:Result Comment: Results should be used as an adjunct to nosocomial control efforts to identify patients needing enhanced precautions.The test is not intended to identify patients with staphylococcal infections. Results should not be used to guide or monitor treatment for MRSA infections.Performed By: #### LIP, LACWB, IOCAL, PT, CDP, CHANDU, PTT, LIPR, CMPX ####[place] [address] Magnesiumon 80-42-0450Wqvrhsbfc mass conc2.2 mg/dLNormal 1.6-2.6[facility] State HospitalComment on above:Performed By: #### LIP, LACWB, IOCAL, PT, CDP, CHANDU, PTT, LIPR, CMPX ####[address] [address] PTon 98-95-3814QJW Coag RelTime (PPP)1.0 {INR} [facility] TrumbullComment on above:Result Comment: Therapeutic Range: Moderate Anticoagulant Intensity: INR = 2.0-3.0 High Anticoagulant Intensity: INR = 2.5-3.5Performed By: #### LIP, LACWB, IOCAL, PT, CDP, CHANDU, PTT, LIPR, CMPX ####[address] [address] Prothrombin time (PT) Coag time (PPP)10.5 sNormal9.0-12.0[facility] Doctors HospitalComment on above:Performed By: #### LIP, LACWB, IOCAL, PT, CDP, CHANDU, PTT, LIPR, CMPX ####[address] [address] Plan of Careon 53-66-2355YIE IP Note OR TranscriptionNormal [facility] HospitalHIM IP Note OR TranscriptionNormalOhiohealth Doctors HospitalProgress Noteon [id number] IP Note OR Swine Nutritionist NormalMerQueen of the Valley Medical CenterHIM IP Note OR TranscriptionNormalMerQueen of the Valley Medical CenterHIM IP Note OR TranscriptionNormalOhiohealth Doctors HospitalHIM IP Note OR TranscriptionNormalOhiohealth Doctors Hospital HIM IP Note OR TranscriptionNormalOhiohealth Doctors HospitalXR ABDOMEN (KUB) (SINGLE AP VIEW)on 50-54-4178NF ABDOMEN (KUB) (SINGLE AP VIEW) EXAMINATION:SINGLE SUPINE [...] favorsevere ileus.Interpreted by:VIRGIL Beckfordigned by:Moses Tyson MD11/02/inal resultNoKettering Health Greene Memorial Consulton [id number] IP Note OR TranscriptionNormalOhiohealth Doctors HospitalHistory and Physicalon 47-72-0699XPI IP Note OR TranscriptionNormKeenan Private HospitalMRSA, DNA, Nasalon 06-98-4065Kddimtko Description .NASAL SWABSelect Medical Specialty Hospital - TrumbullComment on above:Performed By: #### LIP, LACWB, IOCAL, PT, CDP, CHANDU, PTT, LIPR, CMPX ####[id number] [place] [address] XR ABDOMEN (KUB) (SINGLE AP VIEW)on 42-88-0599UG ABDOMEN (KUB) (SINGLE AP VIEW)EXAMINATION:SINGLE SUPINE XRAY [...] by:Olena Alexander, DOSigned by:Olena Alexander, DO11/01/17inal resultNormalMercy [facility] Vital Signs Date TimeVital SignValuePerforming [id number] 15:33-0400Body .02 cmDrake Shaw MD Work Phone: [phone]09-23-2025 15:33-0400 Body mass index (BMI) [Ratio]36.3 kg/q0EcpyeDrake Shaw MD Work Phone: [phone]09-23-2025 15:33-0400 Body .1 kgDrake Shaw MD Work Phone: [phone]09-23-2025 15:33-0400 Diastolic blood vgwsjaeq82 mm[Hg]Drake Shaw MD Work Phone: [phone]09-23-2025 15:33-0400 Heart rate80 /Remy Shaw MD Work Phone: [phone]09-23-2025 15:33-0400 Respiratory rate18 /Remy Shaw MD Work Phone: [phone]09-23-2025 15:33-0400 SaO2% (BldA) [Mass fraction]97 %Drake Shaw MD Work Phone: [phone]09-23-2025 15:33-0400 Systolic blood huoqkctp778 mm[Hg]Drake Shaw MD Work Phone: [facility]09-08-2025 15:06-0400 Body bettjf777.4 cmDrake Shaw MD Work Phone: [facility]09-08-2025 15:06-0400Body mass index (BMI) [Ratio]36.07 kg/w9AefosDrake Shaw MD Work Phone: [facility]09-08-2025 15:06-0400Body snyvsf86.63 kgDrake Shaw MD Work Phone: [facility]09-08-2025 15:06-0400Diastolic blood qunidmlw17 mm[Hg]Drake Shaw MD Work Phone: [facility]09-08-2025 15:06-0400Heart rate 88 /Remy Shaw MD Work Phone: [facility]09-08-2025 15:06-0400 Respiratory rate18 /Remy Shaw MD Work Phone: [facility]09-08-2025 15:06-9645VtS8% (BldA) [Mass fraction]96 %Drake Shaw MD Work Phone: [facility]09-08-2025 15:06-0400Systolic blood mm[Hg]Drake Shaw MD Work Phone: [facility]03-03-2025 15:07-0500Diastolic blood qfuesxyo00 mm[Hg][facility]03-03-2025 15:07-0500 Systolic blood rnhbyvmn377 mm[Hg][facility]03-03-2025 15:03-0500Body .02 [facility]25 15:03-0500Body mass index (BMI) [Ratio]36.1 kg/o3OtiupoiqnSelect [facility]ty [facility] [place]03-03-2025 15:03-0500Body wpxykg77.7 [facility] 04-14-2024 15:03-0500Heart rate81 /[facility] 04-14-2024 15:03-0500Respiratory rate18 /[facility] 04-14-2024 15:03-5976GeN0% (BldA) [Mass fraction]95 %[facility]03-04-2024 13:20-0500Body mass index (BMI) [Ratio]35.05 kg/l2FfdkzSamia Landeros MD Work Phone: [facility]03-04-2024 13:20-0500Body cnractizezd37.81 [degF]Samia Landeros MD Work Phone: [facility] Vgqfqe89-72-1996 13:20-0500Body .17 kgSamia Landeros MD Work Phone: [facility] Venmov00-69-2116 13:20-0500Diastolic blood nqyyicdx24 mm[Hg]Samia Landeros MD Work Phone: [facility] Vqkvfy10-67-9740 13:20-0500Heart rate 84 /Yordy Landeros MD Work Phone: [facility] Gyoqfl91-28-2669 13:20-0500 Respiratory rate16 /Yordy aLnderos MD Work Phone: [facility] Hhvsat86-69-6981 13:20-0500Systolic blood iessdejs958 mm[Hg]Samia Landeros MD Work Phone: [facility] Wtcohg63-94-5077 11:14-0500Body imotfh611.3 cmSamia Landeros MD Work Phone: [facility] Bhtbap60-51-2757 11:14-0500Body mass index (BMI) [Ratio]36.44 kg/y0ZeifnSamia Landeros MD Work Phone: [facility] Yatogl82-91-7949 11:14-0500Body xijvyc33.8 kgSamia Landeros MD Work Phone: [facility] Azymtp53-02-7524 11:14-0500Diastolic blood yicnctvv26 mm[Hg]Samia Landeros MD Work Phone: [facility] Eubepm00-02-5448 11:14-0500Heart rate 80 /Yordy Landeros MD Work Phone: [facility]02-19-2024 11:14-0500 Respiratory rate16 /Yordy Landeros MD Work Phone: [facility] Uyzihi84-97-0423 11:14-0500Systolic blood fbojebyd533 mm[Hg]Samia Landeros MD Work Phone: [facility]01-29-2024 14:30-0500Body .02 cmTondra Mapus Other [facility]01-29-2024 14:30-0500 Body mass index (BMI) [Ratio]36.89 kg/l0Yviirj Mapus Other [employer] Other 01-29-2024 14:30-0500Body ydabns34.48 kgTondra Mapus Other [facility]01-29-2024 14:30-0500 Diastolic blood bkdmikub99 mm[Hg]Tondra Mapus Other [facility]01-29-2024 14:30-0500 Respiratory rate18 /minTondra Mapus Other [employer] Other 01-29-2024 14:30-4354BkN7% (BldA) [Mass fraction]94 % Tondra Mapus Other [employer] Other 01-29-2024 14:30-0500Systolic blood amlrzzsu519 mm[Hg] Tondra Mapus Other [facility]10-16-2023 14:30-0400 Body xliyut153.02 cmTondra Mapus Other [employer] Other 10-16-2023 14:30-0400Body mass index (BMI) [Ratio] 36.26 kg/p2Ekswbn [employer] Other [employer] Other 10-16-2023 14:30-0400Body .85 kgTondra Mapus Other [employer] Other 10-16-2023 14:30-0400Diastolic blood ibdytfbw13 mm[Hg] Tondra Mapus Other [employer] Other 10-16-2023 14:30-0400Respiratory rate18 /minTondra Mapus Other [employer] Other 10-16-2023 14:30-7034FwF1% (BldA) [Mass fraction]95 % Tondra Mapus Other [employer] Other 10-16-2023 14:30-0400Systolic blood ysmlpzzi111 mm[Hg] Tondra Mapus Other [employer] Other 07-17-2023 13:30-0400Body fzrrni987.02 cmTondra Mapus Other [employer] Other 07-17-2023 13:30-0400Body mass index (BMI) [Ratio] 34.68 kg/y8Kkuevl Mapus Other [employer] Other 07-17-2023 13:30-0400Body qpygin11.81 kgTondra Mapus Other [employer] Other 07-17-2023 13:30-0400Diastolic blood ghgikjds02 mm[Hg] Tondra Mapus Other [employer] Other 07-17-2023 13:30-0400Respiratory rate18 /minTondra Mapus Other [employer] Other 07-17-2023 13:30-4883KyV0% (BldA) [Mass fraction]96 % Tondra Mapus Other [employer] Other 07-17-2023 13:30-0400Systolic blood uqqigaiw192 mm[Hg] Tondra Mapus Other [employer] Other 04-12-2023 15:15-0400Body rlavoq041.02 cmTondra Mapus Other [employer] Other 04-12-2023 15:15-0400Body mass index (BMI) [Ratio] 33.65 kg/r6Xrzeku Mapus Other [employer] Other 04-12-2023 15:15-0400Body ocsufh75.18 kgTondra Mapus Other [employer] Other 04-12-2023 15:15-0400Diastolic blood acwunpat59 mm[Hg] Tondra Mapus Other [employer] Other 04-12-2023 15:15-0400Respiratory rate18 /minTondra Mapus Other [employer] Other 04-12-2023 15:15-2953KnU9% (BldA) [Mass fraction]98 % Tondra Mapus Other [employer] Other 04-12-2023 15:15-0400Systolic blood zxzuwqng836 mm[Hg] Tondra Mapus Other [employer] Other 03-15-2023 15:45-0400Body mosztp094.02 cmTondra Mapus Other [employer] Other 03-15-2023 15:45-0400Body mass index (BMI) [Ratio] 33.35 kg/s3Mxcwqc [employer] Other [employer] Other 03-15-2023 15:45-0400Body zsvdau27.41 kgTondra Mapus Other [employer] Other 03-15-2023 15:45-0400Diastolic blood mm[Hg] Tondra Mapus Other [employer] Other 03-15-2023 15:45-0400Respiratory rate18 /minTondra Mapus Other [employer] Other 03-15-2023 15:45-1018FiO7% (BldA) [Mass fraction]96 % Tondra Mapus Other [employer] Other 03-15-2023 15:45-0400Systolic blood pxtihvuu040 mm[Hg] Tondra Mapus Other [employer] Other 01-09-2023 15:45-0500Body ydivqx802.02 cmTondra Mapus Other [employer] Other 01-09-2023 15:45-0500Body mass index (BMI) [Ratio] 32.47 kg/o2Jpubka Mapus Other [employer] Other 01-09-2023 15:45-0500Body qekzig69.14 kgTondra Mapus Other [employer] Other 01-09-2023 15:45-0500Diastolic blood lxavlqid34 mm[Hg] Tondra Mapus Other [employer] Other 01-09-2023 15:45-0500Respiratory rate18 /minTondra Mapus Other [employer] Other 01-09-2023 15:45-9758YhV9% (BldA) [Mass fraction]96 % Tondra Mapus Other [employer] Other 01-09-2023 15:45-0500Systolic blood qyiznoei789 mm[Hg] Tondra Mapus Other [employer] Other 12-05-2022 09:00-0500Body xtqhuk335.02 cmTondra Mapus Other [employer] Other 12-05-2022 09:00-0500Body mass index (BMI) [Ratio] 31.92 kg/u9Vpprws [employer] Other [employer] Other 12-05-2022 09:00-0500Body tbaoqm77.74 kgTondra Mapus Other [facility] [employer] Other 11-23-2022 12:00-0500Body afxlla158.02 cmTondra Mapus Other [facility] [employer] Other 11-23-2022 12:00-0500Body mass index (BMI) [Ratio] 31.28 kg/h1Pwonir Map[facility] Other [facility] [employer] Other 11-23-2022 12:00-0500Body .11 kgTondra Mapus Other [place] [employer] Other 11-23-2022 12:00-0500Diastolic blood rpeyyyfd81 mm[Hg] Tondra [facility] [employer] Other 11-23-2022 12:00-0500Respiratory rate18 /minTondra Mapus Other [place] [employer] Other 11-23-2022 12:00-8334VoL2% (BldA) [Mass fraction]98 % Tondra Mapus Other [place] [employer] Other 11-23-2022 12:00-0500Systolic blood ibkzuphl417 mm[Hg] Tondra Mapus Other [employer] Other Encounters Encounter DateEncounter TypeCare ProviderFacilityStart: 11-10-2024 End: 80-50-1833LimntrXfauf T Defrance MD Work Phone: [facility] MedicineStart: 11-04-2024 End: 60-25-2076Ecxsqcbt ReferredBoy Phillips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-[facility] Work Phone: Start: 11-04-2024 End: 94-02-3421epadjqxbldZbinmXiomara Shaw MD Work Phone: [facility] Work Phone: Start: 11-04-2024 End: 91-55-7582Syrvfbc encounter procedureBoy Phillips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-[facility] Work Phone: Start: 10-20-2024 End: 73-43-6340Nhsyecl encounter Juanito Shaw MD Work Phone: [facility] MedicineComment on above: Necrotizing pancreatitis (Primary Dx); Secondary diabetes mellitus (CMS-HCC); Mixed hyperlipidemia; Essential hypertension, benign; Encounter for screening mammogram for malignant neoplasm of breastStart: 10-20-2024 End: 96-39-5059nglkoqjujhZOCLR T DEFRANCEFirelands [facility] Ambulatory PPGStart: 10-15-2024 End: 20-88-6864AmattaVdowmgDorene BERMAN Work Phone: [facility] MedicineStart: 08-15-2024 End: 17-21-1832YtaqycNivyr Khurshid MD Work Phone: [facility] MedicineStart: 08-13-2024 End: 23-89-6135VsjdakOgegeRyan Landeros MD Work Phone: [facility] MedicineComment on above: Mixed hyperlipidemiaStart: 06-20-2024 End: 11-66-6229XtdzdeJkchxRyan Landeros MD Work Phone: [facility] MedicineStart: 05-18-2024 End: 74-93-9134GiwsocRabhlRyan Landeros MD Work Phone: [facility] MedicineStart: 04-23-2024 End: 88-62-2594EsxoguZdctfRyan Landeros MD Work Phone: [facility] MedicineStart: 04-14-2024 End: 39-16-0962dbznxkoayoBtpahpwvzACMC [facility] Work Phone: Start: 04-14-2024 End: 49-71-3012Jouaoln encounter [facility] Work Phone: Start: 02-19-2024 End: 69-59-9400UbjifoMrrmc T Defrance MD Work Phone: [facility] MedicineStart: 10-22-2023 End: 32-18-3743Eklkuiyjk encounterDakerry Landeros MD Work Phone: [facility] MedicineStart: 09-11-2023 End: 62-47-0883IwfovhTtfgwRyan Landeros MD Work Phone: [facility] MedicineStart: 08-24-2023 End: 66-64-2376IcdfhjThvhm T Defrance MD Work Phone: [facility] MedicineStart: 08-17-2023 End: 02-06-9391TnbixoFtjmi T Defrance MD Work Phone: [facility] MedicineStart: 07-24-2023 End: 83-78-4392Dlnupm OnlySamia Landeros MD Work Phone: [facility] MedicineStart: 07-16-2023 End: 80-41-3383RgvhhhVvzseRyan Landeros MD Work Phone: [facility] MedicineStart: 06-15-2023 End: 81-89-6466DiovqnOaiwwRyan Landeros MD Work Phone: [facility] MedicineComment on above: Mixed hyperlipidemiaStart: 97-26-1829Uwhxjydcq encounterDakerry Landeros MD Work Phone: [facility] MedicineStart: 04-27-2023 Telephone encounterDenise Krishna [facility] MedicineStart: 83-66-3171Tstuuk OnlySamia Landeros MD Work Phone: [facility] MedicineStart: 04-16-2023 End: 77-71-4637Raxyqo outpatient visit 15 minutesSamia Landeros MD Work Phone: [facility] MedicineComment on above: Other acute sinusitis, recurrence not specified (Primary Dx)Start: 04-02-2023 End: 26-14-2436Fpfsxc outpatient visit 15 minutesSamia Landeros MD Work Phone: [facility] MedicineComment on above: Secondary diabetes mellitus (CMS-HCC) (Primary Dx); Necrotizing pancreatitis; Mixed hyperlipidemia; Essential hypertension, benignStart: 79-84-8632RbecdaLatzuRyan Landeros MD Work Phone: [facility] MedicineStart: 03-23-2023 End: 59-66-0758uxrxjdjkdlAvuqzm Jacqueline Other [employer] Other Start: 19-10-3627Ccbiusafn encounterTondra [facility] Coord[facility] Care ClinicStart: 03-12-2023 End: 99-66-8278Ygqmkqgspq RecurringMD Samia Landreos Work Phone: [facility] Work Phone: Start: 03-12-2023(DM) DiabetesVal[facility] Health Coord[facility] Care ClinicStart: 03-12-2023 End: 65-96-7453pddjlbxlilUQ David Defrance Work Phone: [employer] Other Start: 03-12-2023 End: 86-45-5278Peadkoo encounter procedureMD Samia Landeros Work Phone: [facility]-Start: 98-07-3006PqpnxeCnohiKrysta Landeros MD Work Phone: [facility] MedicineStart: 01-01-2023 End: 44-47-8369upblxvalyhJficvb [employer] Other [employer] Other Start: 19-11-5703Swbeijlkp encounterTondra Jacqueline [facility] Coord[facility] Care ClinicStart: 11-27-2022(DM) DiabetesTondra Saturninous [facility] Coordinated Care ClinicStart: 11-27-2022 End: 92-52-1915ivakkdschoUrqlue [employer] Other [employer] Other Start: 08-28-2022(DM) DiabetesTondra MapusFirelands Coordinated Care ClinicStart: 08-28-2022 End: 57-58-5464ivhdtqmreyRimyys [employer] Other [employer] Other Start: 05-24-2022(DM) DiabetesTondra MapusFirelands Coordinated Care ClinicStart: 05-24-2022 End: 88-98-6687zmvcwvbfwvJrllrw [employer] Other [employer] Other Start: 05-01-2022 End: 43-38-7212routupvrztCV SAMIA DEFRANCEFacility:Z9Lmrlg: 04-26-2022(DM) DiabetesTondra MapusFirelands Coordinated Care ClinicStart: 04-26-2022 End: 50-05-3906asiofmunrqKchjjr [employer] Other [employer] Other Start: 03-09-2022 End: 04-36-0196dfjcwrbxdpNvrjhg [employer] Other [employer] Other Start: 43-60-4137Roghhcecj encounterTondra Jacqueline [facility] Coord[facility] Care ClinicStart: 03-06-2022 End: 64-81-5764krxkpualvpPtelqe [employer] Other [employer] Other Start: 29-73-5226Pgjbdpzva encounterTondra Jacqueline [facility] Coordinated Care ClinicStart: 02-20-2022(DM) DiabetesTondra Jacqueline [facility] Care ClinicStart: 02-20-2022 End: 41-46-8665twdoxtqclqLplgcf [employer] Other [employer] Other Start: 01-20-2022 End: 57-70-8415butyrhiyveUbpvnp [employer] Other [employer] Other Start: 18-40-9935Bilvkjezu encounterTondra Jacqueline [facility] Care ClinicStart: 01-16-2022 End: 44-15-4193kiuezclheuWkmvvv [employer] Other [employer] Other Start: 57-33-4653Gpseucz evaluation of patient and reportTondra Lorenza Coordinated Care ClinicStart: 66-42-8081Qrluvmudn encounterTondra Kevins Coord[facility] Care ClinicStart: 01-13-2022 End: 14-03-9999uhoeatobkiIcmopt Simon MD Work Phone: General SurgeryComment on above:Secondary diabetes mellitus (HCC) (Primary Dx)Start: 01-13-2022 End: 00-35-7456Kbqeojuxoilr consultation with Cole Grady MD Work Phone: [facility] MAINStart: 01-08-2022 End: 15-06-5425nyuweejgncTwhiid [employer] Other [employer] Other Start: 33-86-9864Yjsxvoyrg encounterTondra MapusFPG EndocrinologyStart: 01-06-2022 End: 01-56-8148mqaoxdhxiyMB SAMIA DEFRANCEFacility:W0Gevsy: 01-04-2022 End: 18-40-6219wnexhyfzkiMezrke [employer] Other [employer] Other Start: 62-91-6131HSBM visit new Guerita Phillips [facility] Coordinated Care ClinicStart: 12-24-1334uosafisghhFC DAVID DEFRANCE Facility:H7Ctfls: 11-14-2021 End: 28-26-6425tptqtxkzfdRbjz Fitt Other [facility] [employer] Other Start: 00-78-7688Hxdxezdpy encounterDawdeborah FisherAdventist Health [facility] Coordinated Care ClinicStart: 11-08-2021 End: 01-82-7289bfztgrdblmVN DAVID DEFRANCEFacility:Z9Akflr: 10-24-2021 End: 01-91-4764sdzmipodwmLA DAVID DEFRANCEFacility:U6Bjeah: 11-01-2017 End: 88-81-5318Pegxnoubkc and management of inpatientSALIL AVASTHIMercy [facility] Procedures DateProcedureProcedure DetailPerforming ClinicianStart: 39-99-3333Jlwyc depression screening assessmentDrake Shaw MD Work Phone: Start: 63-98-6303Dzrbusek retinal eye examSamia Landeros MD Work Phone: Start: 96-25-1228GculqpqtprzSolfq Defrance MD Work Phone: Start: 52-49-9000Nbbpg depression screening assessment Samia Landeros MD Work Phone: Start: 51-85-9151Spcir depression screening assessment Samia Landeros MD Work Phone: Start: 21-04-5703Rbvvbyny retinal eye examSamia Landeros MD Work Phone: Start: 59-26-1780Vjuuz depression screening assessment Samia Landeros MD Work Phone: Start: 26-12-5959Rpqmctkocnvo [Mass/volume] in Urine by Test stripSamia Landeros MD Work Phone: Start: 35-00-0970FxrqjxwyhekFebeyt Simon MD Work Phone: Start: 60-10-1516PnkjnwawouhAhdazn Simon MD Work Phone: Start: 77-10-3785QPH GLUCOSE FINGERSTICKSALIL AVASTHI Start: 13-15-3345FRMA GLUCOSESALIL AVASTHIStart: 33-22-4464INBXYNEES PATIENT STEPH AVASTHIStart: 58-55-3315Pubkc metabolic panel calcium totalSALIL AVASTHI Start: 14-81-5639Wizfq count complete auto&auto difrntl wbcSALIL AVASTHIStart: 91-91-4338ZGJFCBO AND OR DRUG ASSESSMENTSALIL AVASTHIStart: 97-86-4898PTAT PRECAUTIONSSALIL AVASTHIStart: 31-57-3445QXQPNOPO OXYGEN THERAPY PROTOCOLSALIL AVASTHIStart: 42-60-4037HKLQBKZ PRECAUTIONSSALIL AVASTHIStart: 16-08-2965VHCI GLUCOSESALIL AVASTHIStart: 24-84-2404Zc abdomen & pelvis w/contrast material STEPH AVASTHIStart: 75-43-0366Irdtzmbzyf exam abdomen 1 viewSALIL AVASTHIStart: 45-71-9785MOIU GLUCOSESALIL AVASTHIStart: 52-89-9929YHJVAUK, IONIZEDSALIL AVASTHIStart: 34-08-6549MCR GLUCOSE FINGERSTICKSALIL AVASTHIStart: 11-03-2017 INITIATE OXYGEN THERAPY PROTOCOLSALIL AVASTHIStart: 77-92-7745PNPXOBHMLQZ CARE EVALUATION AND TREATSALIL AVASTHIStart: 51-43-8782Kczvx count complete auto&auto difrntl wbcSALIL AVASTHIStart: 54-65-4642DPAV GLUCOSESALIL AVASTHIStart: 35-78-6338TCL GLUCOSE FINGERSTICKSALIL AVASTHIStart: 97-21-9266DCB GLUCOSE FINGERSTICKSALIL AVASTHIStart: 05-39-5035VUXG GLUCOSESALIL AVASTHIStart: 91-51-2772Wkzksopebo exam abdomen 1 viewSALIL AVASTHIStart: 40-69-5318WXOUJAZTVF AND HEMATOCRIT, BLOODSALIL AVASTHIStart: 08-23-5127GWP GLUCOSE FINGERSTICKSALIL AVASTHIStart: 19-65-4997HH CONSULT TO IV TEAMSALIL AVASTHIStart: 44-44-8805GRZB GLUCOSESALIL AVASTHIStart: 68-51-2446DEQDCKVNUW AND HEMATOCRIT, BLOODSALIL AVASTHIStart: 45-78-2067GJFJ INSERTIONSALIL AVASTHIStart: 84-11-2365MZP GLUCOSE FINGERSTICKSALIL AVASTHIStart: 29-02-2873AWHS GLUCOSESALIL AVASTHIStart: 96-10-0119GKXMHMYD OXYGEN THERAPY PROTOCOLSALIL AVASTHIStart: 11-02-2017 RESPIRATORY CARE EVALUATION AND TREATSALIL AVASTHIStart: 10-44-7472Mrkrx of magnesiumSALIL AVASTHIStart: 32-20-3534Pnldx count complete auto&auto difrntl wbcSALIL AVASTHIStart: 72-42-5128Aivok of amylaseSALIL AVASTHIStart: 11-02-2017 Assay of lactateSALIL AVASTHIStart: 15-33-0923Cyqmy of lipaseSALIL AVASTHIStart: 81-15-6738Rhyuj count complete auto&auto difrntl wbcSALIL AVASTHIStart: 69-11-6238KKEQNDI, IONIZEDSALIL AVASTHIStart: 15-19-9940Xnfir panelSALIL AVASTHI Start: 88-37-9730Wcdwcxqciwi timeSALIL AVASTHIStart: 63-41-5129Bkoroizohesgnc time partial plasma/whole bloodSALIL AVASTHIStart: 76-01-4044Vxgoqoa bacterial blood aerobic w/id isolatesSALIL AVASTHIStart: 56-68-0367TJXIQIF BLOOD #1SALIL AVASTHIStart: 48-24-5220KYBNEQHDVQL CARE EVALUATION AND TREATSALIL AVASTHIStart: 54-60-2528MZY 12-LEADSALIL AVASTHIStart: 65-35-5037LXXNZBQ, URINE CATHETERSALIL AVASTHIStart: 70-63-6850Nckeafnzse exam abdomen 1 viewSALIL AVASTHIStart: 67-34-5118ZD CONSULT TO GISALIL AVASTHIStart: 23-72-5423RWRNM INTERMITTENT PNEUMATIC COMPRESSION DEVICESALIL AVASTHIStart: 68-51-6182HQANZS FOR NO CHEMICAL VTE PROPHYLAXISSALIL AVASTHIStart: 32-99-8165EKDL CODESALIL AVASTHIStart: 55-40-5998UWOZISHR OXYGEN THERAPY PROTOCOLSALIL AVASTHIStart: 28-60-9840DSDDFB PHYSICIAN (SPECIFY)STEPH AVASTHIStart: 19-33-8023PQJJA SIGNSSALIL AVASTHIStart: 47-75-3433ORMV DNA PROBE, NASALSALIL AVASTHIStart: 81-17-1000KX CONSULT TO GENERAL SURGERYSALIL AVASTHIStart: 67-45-8681UYFRUVU STATUS (DIRECT)STEPH AVASTHIH/O: surgeryH/O resection of pancreasH/O: surgeryH/O resection of pancreasTondra K [employer]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 Plan of Treatment DateCare ActivityDetailAuthorStart: 54-76-4760YDrJ,Tdap and Td Vaccines (2 - Td or Tdap)DTaP,Tdap and Td Vaccines (2 - Td or Tdap)ProMLuverne Medical Center SystemStart: 42-65-7333Gelnb microalbumin profileDTAP,TDAP,TD (2 - Td or Tdap)[facility]: 10-21-2025 End: 10-50-9474Ngervne encounter tflmfabnb77/09/2026 3:30 PM EDT Office Visit [facility] [address] [place], [place] [id number] Drake Shaw MD [address] [place] [address] [facility] MedicineStart: 28-75-7049Cjavk BMI Follow Up PlanAdult BMI Follow Up PlanProSamaritan Hospital SystemStart: 01-77-5701Zdxbt BMI ScreeningAdult BMI ScreeningLutheran Hospital SystemStart: 09-08-2026Medicare Annual Wellness VisitMedicare Annual Wellness VisitFormerly Park Ridge Healthtart: 73-81-0498Agqykwz ScreeningTobacco Screening ProMLu[facility] SystemStart: 20-62-0973Vhltgryvcr ScreeningDepression Screening [facility] SystemStart: 12-82-2013Xhbf Risk ScreeningFall Risk Screening ProMLuverne [facility] SystemStart: 31-78-5191Ibjbyw Use: DiabeticStatin Use: Diabetic ProMLuverne [facility] Center SystemStart: 04-30-2025 End: 38-96-6196Aonbccv encounter lzyvgxjtd35/19/2026 9:00 AM EDT Office Visit [facility] [address] [place], [id number] Drake Shaw MD [address] [place] [address] [facility] MedicineStart: 00-49-9711Ikkpyrmy screeningDiabetic Ophthalmology ExamProSt. Vincent Hospital Start: 25-39-4356Fmrpefwlb for malignant neoplasm of breastMammogramProSamaritan Hospital SystemStart: 10-20-2024 End: 56-16-2793Loxszhj encounter procedureProMedica Physicians Family Medicine Start: 10-20-2024 End: 58-32-4361MVL Breast - bilateral screeningMammography screening bilateral with CAD Imaging Routine Encounter for screening mammogram for malignant neoplasm of breast Expected: 10/20/2024, Expires: 10/20/2025[facility] SystemComment on above:Expected: 10/20/2024, Expires: 10/20/2025Start: 45-64-1039Ncbte BMI ScreeningAdult BMI ScreeningLutheran Hospital SystemStart: 95-18-4476Xsxiunjiko ScreeningDepression ScreeningLutheran Hospital SystemStart: 33-91-0981Nesl Risk ScreeningFall Risk ScreeningLutheran Hospital SystemStart: 09-03-2025Medicare Annual Wellness VisitMedicare Annual Wellness VisitLutheran Hospital SystemStart: 43-72-7149Cewzjql ScreeningTobacco ScreeningLutheran Hospital SystemStart: 67-20-4249Iiazbcwge vaccinationInfluenza VaccineProSamaritan Hospital SystemStart: 25-59-0574Gntdl BMI ScreeningAdult BMI ScreeningLutheran Hospital SystemStart: 41-97-2304Thipg BMI ScreeningAdult BMI ScreeningLutheran Hospital SystemStart: 88-02-3859Yowtutwvlp ScreeningDepression ScreeningLutheran Hospital SystemStart: 97-94-9250Tyie Risk ScreeningFall Risk ScreeningLutheran Hospital SystemStart: 73-98-2587Xtvntkv ScreeningTobacco ScreeningLutheran Hospital System Start: 06-56-0618Foqnureh screeningDiabetic Ophthalmology ExamProGalion Hospitaltart: 10-16-2023 End: 61-52-1135Tgeeebl encounter cmfflzyki25/03/2024 3:00 PM EDT Office Visit [facility] [address] [place], [id number] Samia Landeros MD [address] [place] [address] [facility] MedicineStart: 30-99-0244Kupcfiqur vaccinationInfluenza VaccineLutheran Hospital SystemStart: 82-60-9815Ipork BMI ScreeningAdult BMI ScreeningLutheran Hospital SystemStart: 08-31-2024Medicare Annual Wellness VisitMedicare Annual Wellness VisitFormerly [facility] Healthtart: 18-25-8395Qluumzc ScreeningTobacco ScreeningLutheran Hospital SystemStart: 58-30-1859Rhsttixdql ScreeningDepression ScreeningLutheran Hospital SystemStart: 18-98-1669Xzin Risk ScreeningFall Risk ScreeningLutheran Hospital SystemStart: 79-69-2388Nbllm screening for proteinUrine MicroalbuminLutheran Hospital SystemStart: 04-23-2023 End: 07-99-3560Lburawcu Pgxqlei2804/23/2023 3:00 PM EDT Clinical Support [facility] [address] [place] [id number] [facility] MedicineStart: 52-57-5327Bnebdppr foot examination Diabetic Foot ExamLutheran Hospital SystemStart: 04-10-2023 End: 81-63-9897Jqxrnfy encounter wflvdyiwz44/27/2024 3:30 PM EST Office Visit [facility] [address] [place], [id number] Samia Lanedros MD [address] [place] [address] [facility] 04-02-2023 End: 69-20-5417Blfweaq encounter jyxhjxjzw32/19/2024 11:15 AM EST Office Visit [facility] [address] [place] [address] Samia Landeros MD [address] [place] [address] [facility]art: 73-06-7043VmrubahlmstDSOXWKPMZElcfrszks ClinicStart: 30-89-5102Lcamwnxmx for malignant neoplasm of breastMammogramFormerly [facility] Healthtart: 10-13-2022 Influenza vaccinationInfluenza VaccineFormerly Park [facility]: 05-08-2022 Hemoglobin A1c/Hemoglobin.total in NkhjlXKC3LFfpzifvkf ClinicStart: 10-13-2021 Influenza vaccinationINFLUENZA (#1)[facility]: 03-42-7587Fwdqicdwwrl COLONOSCOPYParkwood Hospitaltart: 36-57-5325ZXQWNEAZPA CANCER SCREENING COLORECTAL CANCER SCREENINGParkwood Hospitaltart: 01-62-0358VCOZMDPQIT ASSESSMENTDEPRESSION ASSESSMENTParkwood Hospitaltart: 86-83-7439Qnfgtbizrqnftj of varicella zoster vaccineZoster (Shingles) Vaccine (1 of 2)[facility]: 76-19-9599NNKTIIVU VACCINE (1 of 2)SHINGRIX VACCINE (1 of 2) [facility]: 86-12-8003QKDTAOOCJ (FIT-DNA)COLOGUARD (FIT-DNA)[facility]: 11-62-1153AP COLONOGRAPHYCT COLONOGRAPHYParkwood Hospitaltart: 78-93-5402YDUOP OCCULT BLOODFECAL OCCULT BLOODParkwood Hospitaltart: 2002 SIGMOIDOSCOPYSIGMOIDOSCOPYParkwood Hospitaltart: 36-54-5875WJI TESTINGHPV TESTINGParkwood Hospitaltart: 71-10-8445ZRX TESTINGPAP TESTINGMercy Health St. [facility] Start: 01-88-1580Gdxqt BMI Follow Up PlanAdult BMI Follow Up PlanFormerly [facility]: 84-19-8109FVEXSW PCP TEAM CHRONIC DISEASE VISITANNUAL PCP TEAM CHRONIC DISEASE VISITCleMetroHealth Main Campus Medical Centertart: 57-61-7936BR CONTROLLED (<130/80)BP CONTROLLED (<130/80)[facility]: 93-54-2711Akqkjtohy B surface antibody levelLDL CHOLESTEROLParkwood Hospitaltart: 35-66-5460GKJFHKYLO C SCREENINGHEPATITIS C SCREENINGParkwood Hospitaltart: 82-06-8866VGA SCREENING HIV SCREENINGParkwood Hospitaltart: comp foot exam completedDIABETIC FOOT EXAMCleMetroHealth Main Campus Medical Centertart: 56-83-0177Kqpmkqqoq B screeningURINE ALBUMIN:CREATININE RATIOParkwood Hospitaltart: 25-32-0778Pxmnhnicf C antibody, confirmatory testDILATED RETINAL EXAMParkwood Hospitaltart: 1961 PNEUMOCOCCAL (1 - PCV)PNEUMOCOCCAL (1 - PCV)[facility]: 1955 COVID-19 VACCINE (#1)COVID-19 VACCINE (#1)[facility] End: 89-68-6971Swmgl metabolic 2000 panel - Serum or PlasmaBasic Metabolic Panel Lab Routine Essential hypertension, benign 1 Occurrences starting 04/02/2023 u ntil 04/02/2024ProWeeblyca Work Phone: comment on above:1 Occurrences starting 04/02/2023 until 04/02/2024 End: 08-00-7858TLS W Auto Differential panel - BloodCBC auto differential Lab Routine Essential hypertension, benign 1 Occurrences starting 10/20/2024 until 10/20/2025ProSt. Elizabeth HospitalDiatherix Laboratories SystemComment on above:1 Occurrences starting 10/20/2024 until 10/20/2025omprehensive metabolic 1999 panel - Serum or Plasma [facility] End: 87-96-7218Ixrwgqfubsxqx metabolic 1999 panel - Serum or PlasmaComprehensive metabolic panel Lab Routine Essential hypertension, benign 1 Occurrences starting 10/20/2024 until 10/20/2025ProMediPluggedIn Work Phone: comment on above:1 Occurrences starting 10/20/2024 until 10/20/2025 End: 18-10-8116Atvizpqhpv A1c/Hemoglobin.total in BloodHemoglobin A1c Lab Routine Secondary diabetes mellitus ([facility]) 1 Occurrences starting 10/20/2024 until 10/20/2025ProSt. Elizabeth HospitalDiatherix Laboratories SystemComment on above:1 Occurrences starting 10/20/2024 until 10/20/2025 End: 47-04-6089Tigkl 1996 panel - Serum or PlasmaLipid profile Lab Routine Mixed hyperlipidemia 1 Occurrences starting 10/20/2024 until 10/20/2025Summa HealthComment on above:1 Occurrences starting 10/20/2024 until 10/20/2025 End: 96-59-1644Okhwjlbnxbgw - Albumin: Creatinine Urine RatioMicroalbumin - Albumin: Creatinine Urine Ratio Lab Routine Secondary diabetes mellitus ([facility]- HCC) 1 Occurrences starting 10/20/2024 until 10/20/2025[facility] Comment on above:1 Occurrences starting 10/20/2024 until 10/20/2025 Microalbumin/Creatinine [Mass Ratio] in [facility] Patient EducationDiabetes and [facility] Work Phone: End: 95-03-5563Izibgtj profile includes TSH IZ2Gnisvra profile includes TSH FT4 Lab Routine Essential hypertension, benign 1 Occurrences starting 10/20/2024 until 10/20/2025Summa HealthComment on above:1 Occurrences starting 10/20/2024 until 10/20/2025[facility] Immunizations Immunization DateImmunizationNotesCare HfjezncnRrkqflri59-33-8167Twrpybypwqfh Conjugate 20-valentDakerry Landeros MD Work Phone: [facility] HealthYafrrz81-89-5081zalkfypmz, injectable, quadrivalent, preservative Kelsey Landeros MD Work Phone: [facility] HealthIpqldc09-85-4000prlnfbqnh virus vaccine, unspecified formulationSamia Landeros MD Work Phone: [facility] HealthLwantz09-32-8109Xvwhdjutu, injectable, Madin Sublette Canine Kidney, preservative free, quadrivalentSamia Landeros MD Work Phone: [facility] HealthDscwgh22-30-8877yihniyvrw, injectable, quadrivalent, preservative Kelsey Landeros MD Work Phone: [facility] HealthGfqvjg11-78-4906ofgfcvsmnpweo polysaccharide (groups A, C, Y and W-135) diphtheria toxoid conjugate vaccine (MCV4P)Samia Landeros MD Work Phone: [facility] HealthHkcvzm59-21-1425nbrqrhhxcigz polysaccharide vaccine, 23 valentSamia Landeros MD Work Phone: [facility] HealthLddlsk85-02-4153fohpjnoiytx influenzae type b vaccine, conjugate unspecified formulationSamia Landeros MD Work Phone: [facility] HealthOtsizf78-21-6588pxskxmaiwviut oligosaccharide (groups A, C, Y and W-135) diphtheria toxoid conjugate vaccine (MCV4O)Samia Landeros MD Work Phone: [facility] HealthIcnpex51-28-2154qttgsbsvnhzm polysaccharide vaccine, 23 valentSamia Landeros MD Work Phone: [facility] HealthLjoqsy96-32-1224lsjzmcnfa, injectable, quadrivalent, contains preservativePk Grady MD Work Phone: [facility] Charles HospitalBajgkz83-16-7856bqsohtw toxoid, reduced diphtheria toxoid, and acellular pertussis vaccine, adsorbedPk Grady MD Work Phone: [facility] Work Phone: Payers DatePayer CategoryPayerPolicy ID2021Medicaid [id number] 2021MedicareANTHEMMedicareANTHEM MEDICARE ANTHEM MEDICARE ADVANTAGE [id number] 2020-Present [phone] [address] [place] [id number] 2021Medicare HMOANTHEM MEDICARE Member Subscriber Plan / Payer (Effective 2020-Present) Name: Nichole Sandhu Relation to Subscriber: Self Name: Nichole Sandhu SubscriberID: [id number] Payer ID: [id number] (NAIC) Group ID: [id number] Type: Not on file Address: [facility] [address] [place] [id number] 51-32-4610Djvk InsuranceAUTO INSURANCE [id number] [id number] Blue Cross Blue [id number] 2..[id number] 1960Medicaid [id number] [id number]-[id number] 2..1.848265.3.57[id number] 2..1.053865.3.57[id number] 2..1.093126.3.57[id number] 2.0.1.751427.3.57[id number] 2.0.1.178036.3.57[id number] 2.0.1.510744.3.57[id number] 2..840.1.00[id number] 2.840.1.980083.3.579.2.531 Social History DateTypeDetailFacilityUnknown if ever smokedNort [employer] Other Start: 03-23-2020 End: 92-02-4223Qdm [facility] 07-01-2018 End: 06-84-5397Ixeynjb smoking status NHISEx-smokerMercy Health St. Charles Hospital End: 02-55-0543Huctqzu of tobacco useCurrent smokerMercy Health St. Charles Hospital End: 07-71-1116Jrubagi of tobacco useCigarette SmokerParkwood Hospitaltart: 07-01-2018 End: 27-60-0774Ugdfrqreew smoked current (pack per day) - Reported0.1[facility]: 07-01-2018 End: 53-36-2587Tmkclau use and exposureSmokeless tobacco non-userParkwood Hospitaltart: 01-13-2022 End: 68-91-5269Wjzhfze intakeEx-drinker (finding)[facility]: 82-72-5854Std Assigned At BirthNot on fileParkwood Hospitaltart: 97-76-3429Vlf Assigned At [facility]: 47-41-0737Wwpevil smoking status NHISNever smoked tobaccoProSt. Vincent HospitalDo you belong to any clubs or organizations such as religious groups, unions, fraternal or athletic groups, or school groups?YesProMedica Health SystemAre you now , , , , never or living with a partner?Never [facility] Health SystemHow often to you have a drink containing alcohol?Never [facility] SystemHow many standard drinks containing alcohol do you have on a typical day?Patient declinedProSt. Vincent HospitalDo you feel stress - tense, restless, nervous, or anxious, or unable to sleep at night because your mind is troubled all the time - these days [OSQ]Not at allLutheran Hospital SystemStart: 92-28-3418Ydhxwarle01BlzRmvngq Creditera SystemStart: 11-22-2017 Alcohol CommentoccasionalFormerly [facility]: 11-19-2017 End: 74-65-8409KjoHcdkpr (finding)[facility] SystemHow hard is it for you to pay for the very basics like food, housing, medical care, and heatingNot very hardSumma Health Medical Equipment Procedure CodeEquipment CodeEquipment Original TextEquipment IdentifierDates [id number], [id number], [id number]: 62-09-4518Pvqazbk on above:Use as instructedblood sugar diagnostic (True Metrix Glucose Test Strip)Start: 05-06-7720fvzhe sugar diagnostic (True Metrix Glucose Test Strip)Start: 27-56-2486alpty sugar diagnostic (True Metrix Glucose Test Strip)Start: 06-18-2023 Clinical Notes 11-27-2017 to 11-04-2024 Note Date & VakuLykqNdmgflas23-64-5254 Evaluation note* Diagnosis Onset Date Resolution Status Admit Date BMI 36.0-36.9,adult acuteSept2024 2:51pmDietary counseling and surveillanceacute November 04, 2024 2:51pmH/O resection of pancreasacutept2024 2:51pmHyperlipidemiaacuteSept2024 2:51pmHypertensionacuteSept2024 2:51pmInsulin pump titrationacutept2024 2:51pmType 2 diabetes mellitusacutept2024 2:51pm [facility] Work Phone: 1(902) 471-803309-08-2025 History of Present illness Narrative* Drake Shaw MD - 10/20/2024 3:00 PM EDT Images from the original note were not included. [address] [place] [address] Subjective: Nichole Sandhu is a 69 y.o. female who presents for a Medicare Annual Wellness exam. The following portions of the patient's history were reviewed and updated as appropriate: Health Risk Assessment, allergies, past medical history, past surgical history, social history, family history, and immunization history Accompanied by: self History Provided By: self Language and Other Communication Barriers: Primary Language Spoken: Mosotho Highest Level of Education Completed: high school [...] Do you have a durable power of trade mark attorney?: (Patient-Rptd) Yes Hearing Assessment Do you [...] 09/18/2023 Neck pain 08/31/2022 Secondary diabetes mellitus ([facility]) 04/19/2020 Necrotizing pancreatitis 08/09/2018 Pancreas tail injury 07/31/2018 Past Medical History: Diagnosis Date C. difficile colitis Diabetes mellitus ([facility]) Hypertension Necrotizing pancreatitis Pancreatitis Past Surgical History: [...] 1 capsule (5,000 Units total). 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 nAneliese was seen today for annual exam. Diagnoses and all orders for this visit: Necrotizing pancreatitis - ondansetron (ZOFRAN) 4 mg tablet; Take 1 tablet (4 mg total) by mouth every 8 (eight) hours as needed for nausea or vomiting. Secondary diabetes mellitus ([facility]) - Hemoglobin A1c; Future - Microalbumin - [...] Follow Up: 6 mo documented in this encounterSumma Health09-09-2024 Miscellaneous Notes* Telephone Encounter - Samia Landeros MD - 10/22/2023 3:51 PM EDT Outside labs - wbc# 15,000 has fluctuated in the past- and pt has no c/o's on ros including exposure- will observe k+ 3.4 and is on potassium 10meq 1 qd , will increase to bid rx sent documented in this encounterSumma Health09-09-2024 Telephone encounter Note* Telephone Encounter - Samia Landeros MD - 10/22/2023 3:51 PM EDT Outside labs - wbc# 15,000 has fluctuated in the past- and pt has no c/o's on ros including exposure- will observe k+ 3.4 and is on potassium 10meq 1 qd , will increase to bid rx sent [facility]07-30-2024 Miscellaneous Notes* Telephone Encounter - Yohana Keller LPN - 09/11/2023 12:43 AM EDT [place] [facility] requesting refill of Ferrous Sulfate documented in this encounterSumma Health07-30-2024 Telephone encounter Note* Telephone Encounter - Yohana Keller LPN - 09/11/2023 12:43 AM EDT [facility] requesting refill of Ferrous Sulfate [facility]07-12-2024 Miscellaneous Notes* Telephone Encounter - Yohana Keller LPN - 08/24/2023 12:43 AM EDT [facility] requesting refill of Klor Con documented in this encounterSumma Health07-12-2024 Telephone encounter Note* Telephone Encounter - Yohana Keller LPN - 08/24/2023 12:43 AM EDT [facility] requesting refill of Klor Con [facility]07-05-2024 Miscellaneous Notes* Telephone Encounter - Yohana Keller LPN - 08/17/2023 3:15 PM EDT Patient via MyChart requesting refill of Diclofenac Gel, Lidociane Patches and Meclizine to [place] [facility] documented in this encounterSumma Health07-05-2024 Telephone encounter Note* Telephone Encounter - Yohana Keller LPN - 08/17/2023 3:15 PM EDT Patient via MyChart requesting refill of Diclofenac Gel, Lidociane Patches and Meclizine to [place] [facility]06-03-2024 Miscellaneous Notes* Telephone Encounter - Yohana Keller LPN - 07/16/2023 9:12 AM EDT Patient via MyChart requesting refill of Carvedilol and Ondansetron to [place] [facility] documented in this encounterSumma Health06-03-2024 Telephone encounter Note* Telephone Encounter - Yohana Keller LPN - 07/16/2023 9:12 AM EDT Patient via MyChart requesting refill of Carvedilol and Ondansetron [facility]05-03-2024 Miscellaneous Notes* Telephone Encounter - Yohana Keller LPN - 06/15/2023 5:37 PM EDT [facility] requesting refill of Atorvastatin and Pantoprazole documented in this encounterSumma Health05-03-2024 Telephone encounter Note* Telephone Encounter - Yohana Keller LPN - 06/15/2023 5:37 PM EDT [facility] requesting refill of Atorvastatin and Pantoprazole [facility]03-25-2024 Miscellaneous Notes* Telephone Encounter - Samia Landeros MD - 05/07/2023 10:38 AM EDT Outside labs are good except for glucose at 203- please f/u Tondra regarding sugar * Telephone Encounter - Cynthia Taylor CMA - 05/07/2023 10:38 AM EDT Patient notified of results and instructions. documented in this encounterSumma Health03-25-2024 Telephone encounter Note* Telephone Encounter - Samia Landeros MD - 05/07/2023 10:38 AM EDT Outside labs are good except for glucose at 203- please f/u Tondra regarding sugar [facility]03-25-2024 Telephone encounter Note* Telephone Encounter - Cynthia Taylor CMA - 05/07/2023 10:38 AM EDT Patient notified of results and instructions. [facility]03-15-2024 Miscellaneous Notes* Telephone Encounter - Yohana Keller LPN - 04/27/2023 8:56 AM EDT Needs new Rx for Amlodipine 5mg documented in this encounterSumma Health03-15-2024 Telephone encounter Note* Telephone Encounter - Yohana Keller LPN - 04/27/2023 8:56 AM EDT Needs new Rx for Amlodipine 5mg [facility]03-15-2024 Miscellaneous Notes* Telephone Encounter - Yohana [...] message and verbalizes understanding documented in this encounterSumma Health03-15-2024 Telephone encounter Note* Telephone Encounter - Yohana Keller LPN - 04/27/2023 8:16 AM EDT Anneliese's BP is low at night, 98/60 range, do you want to make any changes? [facility]03-15-2024 Telephone encounter Note* Telephone Encounter - Samia Landeros MD - 04/27/2023 8:16 AM EDT We can decrease the norvasc to 5mg- do we need a new rx? [facility]03-15-2024 Telephone encounter Note* Telephone Encounter - Yohana Keller LPN - 04/27/2023 8:16 AM EDT Patient notified of message and verbalizes understanding [facility]03-04-2024 History of Present illness Narrative* Samia Landeros MD - 04/16/2023 1:15 PM EST Images from the original note were not included. [address] [facility] [address] SUBJECTIVE: Patient ID: Nichole Sandhu is [...] Cefdinir 300mg bid x10d documented in this encounterSumma Health02-19-2024 History of Present illness Narrative* Samia Landeros MD - 04/02/2023 11:15 AM EST Images from the original note were not included. [address] [place] [id number] SUBJECTIVE: Patient ID: Nichole Sandhu is a [...] BMP in 3 weeks documented in this encounterSelect Medical Specialty Hospital - Southeast OhioPluggedIn [facility]Ann ArborVbmquv42-14-4714 Miscellaneous Notes* Telephone Encounter - Yohana Keller LPN - 03/26/2023 9:43 AM EST [place] [facility] requesting refill of Colace documented in this encounterSelect Medical Specialty Hospital - Southeast OhioWealthForge02-12-2024 Telephone encounter Note* Telephone Encounter - Yohana Keller LPN - 03/26/2023 9:43 AM EST [place] [facility] requesting refill of Colace [facility] TrumbullLook.io02-09-2024 Evaluation note* Encounter Date Diagnosis Assessment Notes Treatment Notes Treatment Clinical Notes Mar, Secondary diabetes (ICD-10 - E13 .9) [employer] Other 01-29-2024 Evaluation note* Encounter Date Diagnosis [...] or diabetes medication issues. 6. Prescriptions: [facility] [place]Toujeo and Humalog sent 03/12/23; DME: [facility] [place]-Dexcom [...] to make it easier material was published [employer] Other [id number] Miscellaneous Notes* Telephone Encounter - Yohana Keller LPN - 02/15/2023 9:52 AM EST Patient via [employer] requesting refill of Lidocaine to [place] [facility] documented in this encounterSumma Health01-04-2024 Telephone encounter Note* Telephone Encounter - Yohana Keller LPN - 02/15/2023 9:52 AM EST Patient via [employer] requesting refill of Lidocaine [facility] [place] [facility]01-04-2024 Miscellaneous Notes* Telephone Encounter - Yohana Keller LPN - 02/15/2023 9:51 AM EST Patient via [employer] requesting refill of Meclizine to [place] [facility] documented in this [facility]01-04-2024 Telephone encounter Note* Telephone Encounter - Yohana Keller LPN - 02/15/2023 9:51 AM EST Patient via [employer] requesting refill of [facility]clizine to [facility] [employer]11-20-2023 Evaluation note* Encounter Date Diagnosis Assessment Notes Treatment Notes Treatment Clinical Notes Dec, Secondary diabetes (ICD-10 - E13 .9) Dec,Type 2 diabetes mellitus (ICD-10 - E11.9) [employer] Other 10-16-2023 Evaluation note* Encounter Date [...] pt declines. Nov,Other09/03 gfr >60; ma wnl [employer] Other 07-17-2023 Evaluation note* Encounter Date Diagnosis [...] the nutrition facts label material was published [employer] Other 04-12-2023 Evaluation note* Encounter Date Diagnosis [...] Prescriptions: Refill request for Humalog sent to [facility] in [place] 05/24/22 7. Prescriptions will not be filled [...] the nutrition facts label material was published [employer] Other 03-15-2023 Evaluation note* Encounter Date Diagnosis [...] Toujeo sent to pharmacy. Pt was given touLumara Healtho x2 sample pens today. 7. Prescriptions will [...] target-on statin Apr,MI 33.0-33.9,adult (ICD-10 - Z68.33) [employer] Other 01-09-2023 Evaluation note* Encounter Date Diagnosis [...] target-on statin Feb,MI 32.0-32.9,adult (ICD-10 - Z68.32) [employer] Other 12-05-2022 Evaluation note* Encounter Date Diagnosis [...] pt [facility] All questions and concerns addressed. Encouraged to follow up for next appointment. 45 minutes was spent on education by Rajni GONZALES, RN. Reviewed cgm download 01/04/22-: Avg glucose 252. >250-48.7%, >180- 88.6%, 70-180-11.4%, <70-0%, <54-0%. CV 22.8%. SD 58. See above recommendations. Malia LOMAS, ALESSIO-C, BC-[facility] [employer] Other 12-02-2022 NoteHNO ID: [id number] Author: Pk Grady MD Service: ? Author [...] time. 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 - Follow up with mo PRN CC: Diabetes INTERVAL HPI: Had to [...] which included preparing to see the patient, tisk-mw-buvg patient care, completing clinical documentation, obtaining and/or reviewing separately obtained history, performing a medically appropriate examination, counseling and educating the patient/family/caregiver, ordering medications, tests, or procedures, and communicating results to the patient/family/caregiver. Anton Grady MD B surgery Pager: [phone] [facility]12-02-2022 History of Present illness Narrative* Pk [...] time. 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 - Follow up with me PRN CC: [...] which included preparing to see the patient, esob-lh-iijx patient care, completing clinical documentation, obtaining and/or reviewing separately obtained history, performing a medically appropriate examination, counseling and educating the pat ient/family/caregiver, ordering medications, tests, or procedures, and communicating results to thepatient/family/caregiver. Anton Grady MD B surgery Pager: [phone] documented in this encounterMercy Health St. [facility] Hospital11-23-2022 Evaluation note* Encounter Date Diagnosis Assessment [...] issues. 6. Prescriptions: Sent toujoe[facility]humalog[facility]. Sent dexcom g6 cgm transmitter/cgm to [facility] [...] - E16.2) Pt would greatly benefit from mcfp personal use of CGM device such as [...] how to apply the sensor using a [employer] device and handouts. She successfully applied the sensor to the back of her left arm and inserted the transmitter. The sensor successfully was linked with the phone. Her [employer] account was linked with the office account using a sharing code. 45 minutes were spent educating the patient by Aramis Palm RN, [facility]. [facility] [employer] Other 10-16-2018 History of Past illness Narrative* Problem Noted DateResolved VtjvVawle77Obesity, Class II, BMI 35-39.9 /01/20200035Sghhpqah27 Last Assessment & Plan: PLAN: See plan for encephalopathy documented as of this encounter (statuses as of 01/13/2022) [facility] noteNo InformationNortConemaugh Memorial Medical Center [employer] Other Evaluation note* Diagnosis Secondary diabetes mellitus (HCC)- Primary Secondary diabetes mellitus without mention of complication, not stated as uncontrolled, or unspecified documented in this encounter [facility] noteNo assessment information availableOhiohealth Riverside Methodist [facility] Ctr Work Phone: Evaluation note* Diagnosis Mixed hyperlipidemia documented in this encounter [facility] HealthEvaluation note* Diagnosis Secondary diabetes mellitus (CMS-HCC)- Primary Secondary diabetes mellitus without mention of complication, not stated as uncontrolled, or unspecified Necrotizing pancreatitis Acute pancreatitis Mixed hyperlipidemia Essential hypertension, benign documented in this encounter [facility] HealthEvaluation note* Diagnosis Other acute sinusitis, recurrence not specified- Primary documented in this encounter [facility] SystemEvaluation note* Diagnosis Onset Date Resolution Status Admit Date BMI 36.0-36.9,adult acuteMarch 2024 2:51pmDietary counseling and surveillanceacuteMarch 2024 2:51pmH/O resection of pancreasacuteMarch 2024 2:51pmHyperlipidemia acuteMarch 2024 2:51pmHypertensionacuteMarch 2024 2:51pmInsulin pump titrationacuteMar 2024 2:51pmLocalized infection of skinacuteApr 2024 2:51pmType 2 diabetes mellitusacuteParkview Health [facility] 2024 2:51pm [facility] Work Phone: Evaluation note* Diagnosis Mixed hyperlipidemia documented in this encounter [facility] HealthEvaluation note* Diagnosis Necrotizing pancreatitis- Primary Acute pancreatitis Secondary diabetes mellitus ([facility]) Secondary diabetes mellitus without mention of complication, not stated as uncontrolled, or unspecified Mixed hyperlipidemia Essential hypertension, benign Encounter for screening mammogram for malignant neoplasm of breast [facility] Diagnosis Onset Date Resolution Status Admit Date BMI 35.0-35.9,adult acuteSeptember 2024 2:51pmDietary counseling and surveillanceacute Vania 2024 2:51pmH/O resection of pancreasacuteSept2024 2:51pmHyperlipidemiaacuteSept2024 2:51pmHypertensionacuteSeptember 2024 2:51pmInsulin pump titrationacuteSept2024 2:51pmType 2 diabetes mellitusacuteSept2024 2:51pm [facility] Work Phone: History general Narrative - Reported* Type Description Date Medical History Secondary Diabetes Mellitus Medical HistoryNecrotizing pancreatitisMedical HistoryPancreas tail injury Surgical HistoryCesarean sectionSurgical HistoryHysterectomySurgical History Kidney stone surgerySurgical HistoryPancreas resectionSurgical HistoryPancreas- partial removalSurgical HistorySplenectomyHospitalization Historysee above [employer] Other InstructionsNot on filedocumented in this encounter [facility]ructionsNot on filedocumented in this encounter [facility] SystemInstructionsNot on filedocumented in this encounter [facility] SystemInstructionsNot on filedocumented in this encounter [facility] SystemInstructionsNot on filedocumented in this encounter [facility]* Attachments The following attachments cannot be sent through Care Everywhere. * Diabetes and diet (Mosotho) documented in this encounterProMedica Health SystemInstructionsNot on file documented in this encounterProMedica Health SystemInstructions* Attachments The following attachments cannot be sent through Care Everywhere. * Sinusitis in adults (Mosotho) documented in this encounterProMedica Health SystemInstructionsNot on [...] for referral (narrative)No reason for referral information availableSt. Mary'S Medical Center Work Phone: Reason for visit NarrativeReferral Dr. 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 DATE CREATED AUTHOR AUTHOR'S ORGANIZ ATION 09/02/2020 [facility] DATE CREATED AUTHOR AUTHOR'S ORGANIZ ATION 01/13/2022 [facility] DATE CREATED AUTHOR AUTHOR'S ORGANIZ ATION 05/07/2022 [facility] DATE CREATED AUTHOR AUTHOR'S ORGANIZ ATION 10/22/2024 [facility] DATE CREATED AUTHOR AUTHOR'S ORGANIZ ATION 11/14/2024 [facility] REASON FOR VISIT (unrecogniz ed section and content) ReasonCommentsDiabetesReasonCommentsMed RefillReasonOnset DateCommentsMed Refill 4ReasonOnset DateCommentsMed [id number]utine Check upReasonOnset DateCommentsMed [id number] DateCommentsMed [id number] ExamMedicare wellness Source Comments (unrecognize d section and content) In the event this informatio n is protected by the Federal Confidentiality of Alcohol and Drug Abuse Patient Records regulations: The Federal rules restrict any use of the information to criminally investigate or prosecute any alcohol or drug abuse patient.[facility] Care Teams (unrecognized sec tion and content) Team Status: Active Member Role Status Dates Drake Shaw MD Primary Care Provider Active Team Status: Inactive Member Role Status Dates Drake Shaw MD Primary Care Provider Active Start: November 04, 2024 End: November 04, 2024Sylvia Hutchins ProviderActiveStart: November 04, 2024 End: November 04, 2024Team MemberRelationshipSpecialtyStart DateEnd Date Samia Payton [address] [place] [address] PCP - [facility] Epkzekcf57/12/18 Team Status: Active Member Role Status Dates [...] Samia Landeros MD [address] [place] [address] PCP - [facility] Xrrfkvpq80/11/18Team MemberRelationshipSpecialtyStart Date End Date Samia Landeros MD [address] [place] [address] PCP - [facility] Unalqbvm98/11/18Team MemberRelationshipSpecialtyStart Date End Date Samia Landeros MD [address] [place] [address] PCP - [facility] Qyeczllu96/11/18Team MemberRelationshipSpecialtyStart Date End Date Samia Landeros MD [address] [place] [address] PCP - [facility]11/22/17Team MemberRelationshipSpecialtyStart Date End Date Samia Landeros MD [address] [place] [address] PCP - [facility]11/22/17Team MemberRelationshipSpecialtyStart Date End Date Samia Landeros MD [address] [place] [address] PCP - [facility]11/22/17am MemberRelationshipSpecialtyStart Date End Date Samia Landeros MD [address] [place] [address] PCP - [facility]11/22/17Te MemberRelationshipSpecialtyStart Date End Date Samia Landeros MD [address] [place] [address] [facility] - [facility]11/22/17 MemberRelationshipSpecialtyStart Date End Date Samia Landeros MD [address] [place] [address] PCP - [facility]11/22/17Te MemberRelationshipSpecialtyStart Date End Date Samia Landeros MD [address] [place] [address] PCP - [facility]11/22/17 Team Status: Inactive Member Role Status Dates Samia Landeros MD Primary Care Provider Active Start: April 14, 2024 End: April 14, 2024Boy Phillips APRNAttucker ProviderActiveStart: April 14, 2024 End: April 14, 2024Team MemberRelationshipSpecialtyStart DateEnd Date Samia Landeros MD [address] [place] [address] PCP - [facility]11/22/17 MemberRelationshipSpecialtyStart Date End Date Samia Landeros MD [address] Provider retired 05/13/24 [place] [address] PCP - [facility]11/22/17 MemberRelationshipSpecialtyStart Date End Date Samia Landeros MD [address] Provider retired 05/13/24 [place] [address] PCP - [facility]11/22/17 MemberRelationshipSpecialtyStart Date End Date Samia Landeros MD [address] Provider retired 05/13/24 [place] [address] PCP - [facility]11/22/17 MemberRelationshipSpecialtyStart Date End Date Drake Shaw MD [address] [place] [address] PCP - [facility]09/17/24Te MemberRelationshipSpecialtyStart Date End Date Drake Shaw MD [address] [place] [address] PCP - [facility]09/17/24 Team Status: Inactive Member Role Status Dates Drake Shaw MD Primary Care Provider Active Start: November 04, 2024 End: November 04, 2024Tondra K Mapus , APRNAttending ProviderActiveStart: November 04, 2024 End: November 04, 2024 Team Status: Inactive Member Role Status Dates Boy Phillips APRN Attending Provider Active Start: November 04, 2024 End: November 04, 2024Team MemberRelationshipSpecialtyStart DateEnd Date Drake Shaw MD [address] [place] [address] PCP - GeneralInternal Medicine09/17/24 Team Status: Active [...] BE BASED ON THE PRIMARY CLINICAL RECORDS. [employer] [facility]. provides no warranty or guarantee of the accuracy or completeness of information in this document.
== END 2025-01-14 12:10 | disposition home or self-care (01) ==
LOC: LAB 12:11
PROVIDERS: PCP Student in an Organized Health Care Education/Training Program; Visit Provider Student in an Organized Health Care Education/Training Program
DX: I95.1 Orthostatic hypotension (principal)
CPT/HCPCS: 36415; 82533

== ENCOUNTER 2025-01-20 06:53 | Outpatient (OUT) | payer MEDICARE, SELFPAY ==
--- OUTSIDE RECORDS SUMMARY | 2025-01-14 11:15 | XMS_ITS | Encounter Summary ---
Author Organization [facility] [facility] tem Address [facility]-[id number] [address] [place] [address] Care Team Providers Care Cuprous Chloride Helper Name Role Phone Flakito Shaw MD Primary Care Provider [phone] Reason for Referral * Cardiology (Routine) - Pending ReviewSpecialtyDiagnoses / ProceduresReferred By ContactReferred To Contact Diagnoses Orthostatic hypotension Essential hypertension, benign Procedures Echo limited W/O contrast Flakito Shaw MD [address] [place] [address] Phone: tel: fax: Referral IDStatusReasonStart DateExpiration DateVisits RequestedVisits [id number] Reason for Visit * ReasonCommentsHypotension Encounter Details DateTypeDepartmentCare Team (Latest Contact Info)Pdafdmgydqn37/03/2025 11:15 AM ESTOffice Visit [facility] [address] [place] [phone] Flakito Shaw MD [address] [place] [address] Orthostatic hypotension (Primary Dx); Essential hypertension, [...] relatives?Twice a week03/23/2020How often do you attend congregational or catholic services?Never03/23/2020o you belong to any clubs or organizations such as congregational groups, unions, fraternal or athletic groups, or school groups?Yes03/23/2020How often do you attend meetings of the clubs or organizations you belong to?Never03/23/2020re you , , , , never , or living with a partner?Never xncafcc5603/23/2020 Overall Financial Resource Strain (CARDIA)AnswerDate RecordedHow hard is it for you to pay for the very basics like food, housing, medical care, and heating?Not very hard10/18/2024PHQ-2AnswerDate RecordedTotal Tnwet10803/17/2024Finintermountain healthcare [place] of Occupational Health - Occupational Stress QuestionnaireAnswerDate [...] part of a household?No10/18/2024hildcareAnswerDate RecordedDo problems getting director maternal child make it difficult for you to work [...] InformationValueDate RecordedSex Assigned at BirthNot on fileLegal JblLetlnc87/08/2018 9:48 AM EDTGender Identity Not on fileSexual OrientationNot on filedocumented as of this encounter Last Filed Vital Signs Vital SignReadingTime TakenCommentsBlood Nruimbnz455/6801/14/2025 11:09 AM EST Adran819701/14/2025 11:09 AM ESTTemperature--Respiratory Mhgp275003/17/2024 11:09 AM ESTOxygen Uzgmcitubj91%01/14/2025 11:09 AM ESTInhaled Oxygen Concentration-- Vnfrph60.7 kg (200 lb)01/14/2025 11:09 AM ESTHeight--Body Mass Index35.71 10/20/2024 3:06 PM EDTdocumented in this encounter Functional Status * AUDIT-C ScoreAnswerDate of DzjyftdltcSbkpjc147 11:11 AM Kiana Velasquez LPN * QuestionAnswerDate of AssessmentAuthorQ1: How often do you have a drink containing alcohol?Never01/14/2025 11:11 AM Kinaa Velasquez LPNQ2: How many drinks containing alcohol do you have on a typical day when you are drinking?Patient does not drink01/14/2025 11:11 AM Kiana Velasquez LPNQ3: How often do you have six or more drinks on one occasion?Never01/14/2025 11:11 AM Kiana Velasquez LPN documented as of this encounter Progress Notes * Flakito Shaw MD - 01/14/2025 11:15 AM EST [address] [facility] [phone] Patient: Nichole Warren Date of : 1955 Encounter Date: 01/14/2025 History of Present Illness: The patient is a 69 y.o. female, an established patient, and is here for Chief Complaint Patient presents with Hypotension . Patient brought in home blood pressure readings which shows the blood pressure usually runs zvefucs058f over 70s but in the last 1 month there have been 2 episodes where the blood pressure dropped to 80/60. Patient denies any palpitations. Past Medical, Family, and Social History Update: The following portions of the patient's history were reviewed and updated as appropriate: allergies, current medications, past family history, past medical history, past social history, past surgicalhistory and problem list. Past Medical History: Diagnosis Date C. difficile colitis Diabetes mellitus ([facility]) Hypertension Necrotizing pancreatitis Pancreatitis Past Surgical History: Procedure Laterality Date SECTION HYSTERECTOMY KIDNEY STONE SURGERY PANCREAS SURGERY resection of pancreas PANCREAS SURGERY partial removal SPLENECTOMY Current Outpatient Medications Medication Sig Dispense Refill ACCU-CHEK GUIDE L1-L2 CTRL MISTY solution atorvastatin (LIPITOR) 10 mg tablet TAKE 1 TABLET (10 MG TOTAL) BY MOUTH IN THE MORNING 90 tablet 3 BD ULTRA-FINE NAREN PEN NEEDLE 32 gauge x 5/32 needle in the morning and at noon and in the eveningand before bedtime. blood sugar diagnostic (TRUE METRIX GLUCOSE TEST STRIP) strip TEST TWICE A DAY 50 strip 7 cholecalciferol, vitamin D3, (VITAMIN D3) 5,000 units capsule 1 capsule (5,000 Units total). DEXCOM G6 FLAT GRINDER OPERATOR misc DEXCOM G6 SENSOR device DEXCOM G6 TRANSMITTER device diclofenac sodium (VOLTAREN) 1 % gel Apply to affected area tid 100 g 7 docusate sodium (STOOL SOFTENER) 100 mg capsule Take 1 capsule (100 mg total) by mouth in the morning and 1 capsule (100 mg total) before bedtime. 180 capsule 3 ferrous sulfate 325 (65 FE) MG tablet Take 1 tablet (325 mg total) by mouth in the morning. 90 tablet 3 fexofenadine-pseudoephedrine (MEGHAN-D 24) 180-240 mg per 24 hr tablet Take 1 tablet by mouth before bedtime. 30 tablet 2 HumaLOG U-100 Insulin 100 unit/mL injection lancets (ULTRA THIN LANCETS) 30 gauge misc TEST TWICE DAILY *K85.91* 100 each 5 lancing device misc meclizine (ANTIVERT) 25 mg tablet Take 1 tablet (25 mg total) by mouth 3 (three) times a day as needed for dizziness. 90 tablet 1 multivitamin (THERAGRAN) tablet Take 1 tablet by mouth in the morning. ondansetron (ZOFRAN) 4 mg tablet Take 1 tablet (4 mg total) by mouth every 8 (eight) hours as needed for nausea or vomiting. 30 tablet 5 pantoprazole (PROTONIX) 40 mg EC tablet TAKE 1 TABLET (40 MG TOTAL) BY MOUTH IN THE MORNING 90 tablet 3 psyllium husk (METAMUCIL) 0.4 gram capsule Take by mouth in the morning. T:SLIM X2 CONTROL-IQ misc tiZANidine (ZANAFLEX) 4 mg tablet TAKE 1 TABLET (4 MG TOTAL) BY MOUTH EVERY 8 (EIGHT) HOURS NEEDED FOR MUSCLE SPASMS 270 tablet 3 TOUJEO SOLOSTAR U-300 INSULIN 300 unit/mL (1.5 mL) insulin pen ZENPEP 40,000-126,000- 168,000 unit capsule,delayed release(DR/EC) TAKE 2 CAPSULES BY MOUTH WITH MEALS AND 1 CAPSULE WITH EACH SNACK 270 capsule 5 carvediloL (COREG) 12.5 mg tablet Take 1 tablet (12.5 mg total) by mouth in the morning and 1 tablet (12.5 mg total) before bedtime. 60 tablet 11 No current facility-administered medications for this visit. (All medications reviewed and updated by provider since last office visit or hospitalization) Allergies: Codeine and Lorazepam Tobacco History: Social History Tobacco Use Smoking Status Never Smokeless Tobacco Never (If patient a smoker, smoking cessation counseling offered) Social History: Social History Substance and Sexual Activity Alcohol Use Not Currently Comment: occasional Review of Systems: Review of Systems Constitutional: Negative for chills and fever. HENT: Negative for ear pain and sore throat. Eyes: Negative for pain and visual disturbance. Respiratory: Negative for cough and shortness of breath. Cardiovascular: Negative for chest pain and palpitations. Gastrointestinal: Negative for abdominal pain and vomiting. Genitourinary: Negative for dysuria and hematuria. Musculoskeletal: Negative for arthralgias and back pain. Skin: Negative for color change and rash. Neurological: Negative for seizures and syncope. All other systems reviewed and are negative. Physical Exam: BP 112/68 Pulse 81 Resp 18 Wt 90.7 kg (200 lb) SpO2 97% BMI 35.71 kg/m?? Physical Exam Constitutional: Appearance: She is well-developed. HENT: Head: Normocephalic and atraumatic. Nose: Nose normal. Eyes: Pupils: Pupils are equal, round, and reactive to light. Cardiovascular: Rate and Rhythm: Normal rate and regular rhythm. Heart sounds: Normal heart sounds. No murmur heard. Pulmonary: Effort: Pulmonary effort is normal. No respiratory distress. Breath sounds: Normal breath sounds. No wheezing. Abdominal: General: Bowel sounds are normal. Palpations: Abdomen is soft. Tenderness: There is no abdominal tenderness. Comments: Insulin pump in place Musculoskeletal: General: Normal range of motion. Cervical back: Neck supple. Lymphadenopathy: Cervical: No cervical adenopathy. Skin: General: Skin is warm and dry. Findings: No rash. Neurological: Mental Status: She is alert and oriented to person, place, and time. Cranial Nerves: No cranial nerve deficit. Assessment and Plan: Anneliese was seen today for hypotension. Diagnoses and all orders for this visit: Orthostatic hypotension - Cortisol; Future - Echo limited W/O contrast; Future -advised to wear compression stockings -increase salt and fluid intake for the next few days. Essential hypertension, benign Goal BP 130/80. - carvediloL (COREG) 12.5 mg tablet; Take 1 tablet (12.5 mg total) by mouth in the morning and 1 tablet (12.5 mg total) before bedtime. - Echo limited W/O contrast; Future Follow-up: Return for Recheck. FLAKITO SHAW MD documented in this encounter Plan of Treatment DateTypeDepartmentCare Team (Latest Contact Info)Ddnrufspeqq59/08/2026 1:45 PM ESTOffice Visit [facility] [address] [place] [phone] Flakito Shaw MD [address] [place] [address] 04/30/2025 9:00 AM EDTOffice Visit [facility] [address] [place] [phone] Flakito Shaw MD [address] [place] [address] 10/21/2025 3:30 PM EDTOffice Visit [facility] [address] [place] [phone] Flakito Shaw MD [address] [place] [address] NameTypePriorityAssociated DiagnosesOrder ScheduleEcho limited W/O contrast EchocardiographyRoutine Orthostatic hypotension Essential hypertension, benign Expected: 01/14/2025, Expires: 01/14/2026documented as of this encounter Results * Cortisol (01/14/2025)ComponentValueRef RangeTest MethodAnalysis TimePerformed AtPathologist SignatureCortisol U10.7MANUALLY TRANSCRIBED RESULTSSpecimen (Source)Anatomical Location / LateralityCollection Method / VolumeCollection TimeReceived TimeBloodVenous blood / Ujhxrgk3001/14/2025 Narrative Authorizing ProviderResult TypeResult StatusFlakito Shaw MDLAB BLOOD ORDERABLESFinal ResultPerforming OrganizationAddressCity/State/ZIP CodePhone Number MANUALLY TRANSCRIBED RESULTS documented in this encounter Visit Diagnoses Diagnosis Orthostatic hypotension- Primary Essential hypertension, benign documented in this encounter Additional Health Concerns AssessmentNoted TimePHQ-9 Depression Total Score: 11:11 AM ESTA Body Mass Index follow-up plan has been documented for the smwhvrf3810/20/2024 3:34 PM EDTdocumented as of this encounter Care Teams Team MemberRelationshipSpecialtyStart DateEnd Date Flakito Shaw MD [address] [place] [address] PCP - GeneralInternal Medicine09/17/24documented as of this encounter
--- OUTSIDE RECORDS SUMMARY | 2025-01-20 06:58 | XMS_ITS | Encounter Summary ---
Author Organization [facility] tem Address [id number] [address] [place] [address] Care Team Providers Care Motorcycle Repairer Name Role Phone Drake Morrissey MD Primary Care Provider [phone] Encounter Details DateTypeDepartmentCare Team (Latest Contact Info)Tykikebrmzd54/04/2025Results [facility] [address] [place] [address] Drake Morrissey MD [address] [place] [address] Cortisol Social History Tobacco UseTypesPacks/DayYears UsedDateSmoking Tobacco: NeverSmokeless Tobacco: NeverAlcohol UseStandard Drinks/WeekCommentsNot Currently0 (1 standard drink = 0.6 oz pure alcohol)occasionalSocial Connection and Isolation PanelAnswerDate RecordedIn a typical week, how many times do you talk on the phone with family, friends, or neighbors?More than three times a week03/23/2020How often do you get together with friends or relatives?Twice a week03/23/2020How often do you attend gnosticist or latter day services?Never1Do you belong to any clubs or organizations such as gnosticist groups, unions, fraternal or athletic groups, or school groups?Yes03/23/2020How often do you attend meetings of the clubs or organizations you belong to?Never1Are you , , , , never , or living with a partner?Never nhltoun4903/23/2020 Overall Financial Resource Strain (CARDIA)AnswerDate RecordedHow hard is it for you to pay for the very basics like food, housing, medical care, and heating?Not very hard10/18/2024PHQ-2AnswerDate RecordedTotal Ecwgh21203/17/2024[facility]inst[facility] [place] of Occupational Health - Occupational Stress QuestionnaireAnswerDate [...] of a household?No10/18/2024hildcareAnswerDate RecordedDo problems getting child care attendant school make it difficult for you to work [...] InformationValueDate RecordedSex Assigned at BirthNot on fileLegal WnmBiwdwp21/08/2018 9:48 AM EDTGender Identity Not on fileSexual OrientationNot on filedocumented as of this encounter Plan of Treatment DateTypeDepartmentCare Team (Latest Contact Info)Qjhtgvqbccy10/08/2026 1:45 PM ESTOffice Visit [facility] [address] [place] [address] [place] [phone] Drake Morrissey MD [address] [place] [address] 04/30/2025 9:00 AM EDTOffice Visit [facility] [address] [place], [place] [address] [address] Drake Morrissey MD [address] [place] [address] 10/21/2025 3:30 PM EDTOffice Visit [facility] [address] [place], [place] [address] [id number] Drake Morrissey MD [address] [place] [address] documented as of this encounter Visit Diagnoses Not on filedocumented in this encounter Additional Health Concerns AssessmentNoted TimePHQ-9 Depression Total Score: 11:11 AM ESTA Body Mass Index follow-up plan has been documented for the ronkfrg8710/20/2024 3:34 PM EDTdocumented as of this encounter Care Teams Team MemberRelationshipSpecialtyStart DateEnd Date Drake Morrissey MD [address] [place] [address] PCP - GeneralInternal Medicine09/17/24documented as of this encounter
--- OUTSIDE RECORDS SUMMARY | 2025-01-20 06:58 | XMS_ITS | CCD ---
Author Organization [facility] Care Team Providers Care Manager Green Name Role Phone AVASTHI, STEPH Unavailable Unavailable [...] DEFRANCE, DR GRACIA Attending Unavailable DEFRANCE, DR GRACAI Primary Care Unavailable DEFRANCE, DR GRACIA Consulting [...] Care Provider Leti, MD Gracia Attending Provider [phone] Samia Landeros MD Primary Care Provider Samia Landeros MD Primary Care Provider Samia Landeros MD Primary Care Provider [phone] Drake Shaw MD Primary Care Provider SAMIA LANDEROS Referring Unavailable DRAKE SHAW Primary Care Unavailable DRAKE SHAW Attending Unavailable Drake Shaw MD Primary Care Provider Boy Phillips APRN Attending Provider Boy Phillips Attending Unavailable Boy Phillips Admitting Unavailable Allergies Allergy ClassificationReported Allergen(s)Allergy TypeDate of OnsetReaction(s) Facility (20 sources)Codeine; Translations: [CODEINE]Drug Dncgkdk69-95-1753Trugskzc, Other (See Comments)[facility] Work Phone: (20 sources)LORazepam; Translations: [LORAZEPAM]Drug Nesuwdr91-58-1792ainw, Other: See CommentsThe [facility] Of [facility] Work Phone: (1 source)CodeineDrug [facility]ergyPrem[facility] (1 source)LORazepamDrug AllergyPremier Health [facility] (1 source)CodeineDrug Hhgnvlx38-85-1977FmacbevkzMer[facility] (1 source)LORazepamDrug Ddbziif60-02-5709DcnofvajkMercy Health [facility] Medications Current Medications MedicationDrug Class(es)DatesSig (Normalized)Sig (Original)ACCU-CHEK GUIDE L1-L2 CTRL MISTY solution (10 sources)Start: 92-51-3115WPRG-CHEK GUIDE L1-L2 CTRL MISTY solution 08/15/2023 ActiveamLODIPine 5 mg oral tablet (20 sources)Dihydropyridine Calcium Channel BlockerStart: 04-27-2023 End: 01-94-1310ydxj 1 tablet by mouth once dailyAmlodipine 5 mg tablet Active 5 MG PO Daily June 18, 2023 12:00am Complies with drug therapyStart: 02-14-2018 End: 42-84-5771yres 1 tablet by mouth once dailyamLODIPine (NORVASC) 10 mg tablet TAKE 1 TABLET BY MOUTH EVERY DAY 90 tablet 3 01/17/2023 10/20/2024 Discontinued (Patient Stopped On Own)Comment on above:Take 10 mg by mouth once daily. amylase 409022 unt / lipase 09929 unt / protease [id number] unt delayed release oral capsule (20 sources)Start: 81-64-9895epkc 2 capsules by mouth three times daily at mealtime, then take 1 capsule by mouth three times dailyStart: 81-90-5374XUKEXQ 40,000-126,000- 168,000 unit capsule,delayed release(DR/EC) TAKE 2 CAPSULES BY MOUTH WITH MEALS AND 1 CAPSULE WITH EACH SNACK 270 capsule 5 02/10/2019 Active Comment on above:Take 2 capsules by mouth w MEALS. Take 1 tablet with each snack.atorvastatin 10 mg oral tablet (20 sources)HMG-CoA Reductase InhibitorStart: 08-28-2022 End: 96-58-9054kgyu 1 tablet by mouth once dailyAtorvastatin 10 mg tablet Active 10 MG PO Daily June 18, 2023 12:00am Complies with drug therapyblood-glucose sensor (Dexcom G7 Sensor) (3 sources)Start: 45-29-9733cpdik-glucose sensor (Dexcom G7 Sensor) Active .Route December 31, 2023 1:00amStart: 02-80-7221lfwyt-glucose sensor (Dexcom G7 Sensor) Active .Route December 31, 2023 12:00amcarvedilol 25 mg oral tablet (20 sources)alpha-Adrenergic Juliet, beta-Adrenergic BlockerStart: 08-28-2022 End: 65-59-5833vgzm 1 tablet by mouth twice dailyCarvedilol 25 mg tablet Active 25 MG PO Twice daily June 18, 2023 12:00am Complies with drug therapyComment on above:Take 25 mg by mouth twice daily with meals.cefdinir 300 mg oral capsule (3 sources)Cephalosporin AntibacterialStart: 07-24-2023 End: 33-41-2031zwdm 1 capsule by mouth in the morning, then take 1 capsule by mouth at bedtimecefDINIR (OMNICEF) 300 mg capsule Take 1 capsule (300 mg total) by mouth in the morning and 1 capsule (300 mg total) before bedtime. Do all this for 10 days. 20 capsule 07/24/2023 08/03/2023 ActiveStart: 04-16-2023 End: 90-31-1077npyo 1 capsule by mouth in the morning, then take 1 capsule by mouth at bedtimecefDINIR (OMNICEF) 300 mg capsule Take 1 capsule (300 mg total) by mouth in the morning and 1 capsule (300 mg total) before bedtime. Do all this for 10 days. 20 capsule 0 04/16/2023 04/26/2023 Activecholecalciferol 0.125 mg oral capsule (20 sources)Vitamin DStart: 25-51-8823cpbvebhstjxwqdq, vitamin D3, (VITAMIN D3) 5,000 units capsule 1 capsule (5,000 Units total). 06/18/2023 ActiveStart: 86-76-4584ncxl 1 capsule by mouth twice dailytake 1 capsule by mouth every twelve hoursVitamin D3 125 MCG (5000 UT) 1 capsule Orally twice a day Active DEXCOM G6 BATTERY CHECKER misc (20 sources)Start: 80-96-8567NMADSP G6 BATTERY CHECKER misc 01/24/2022 ActiveStart: 08-91-0502RUYZQM G6 BATTERY CHECKER misc USE as directed TO monitor blood glucose 01/24/2022 ActiveStart: 84-22-0765WUQFYY G6 BATTERY CHECKER misc USE as directed TO monitor blood glucose 0 01/24/2022 ActiveDexCL3VER G6 Sensor - (16 sources)Start: 50-03-0030Tvirtq G6 Sensor - as directed SQ change q 10 days for 90 day(s) Dec, ActiveDexcom G6 Sensor - as directed SQ change q 10 days for 90 day(s) ActiveDEXTourjive G6 SENSOR device (20 sources)Start: 73-43-6796BPWKXV G6 SENSOR device 01/24/2022 ActiveStart: 18-48-6833BHQIJE G6 SENSOR device CHANGE every 10 DAYS as directed 01/24/2022 ActiveStart: 52-33-8981FKLPDI G6 SENSOR device CHANGE every 10 DAYS as directed 0 01/24/2022 ActiveDexcom G6 Transmitter - (16 sources)Start: 95-90-6863Cgnrok G6 Transmitter - as directed SQ change Q 3 MO for 90 day(s) Dec, ActiveDexCL3VER G6 Transmitter - as directed SQ change Q 3 MO for 90 day(s) ActiveDEXCOM G6 TRANSMITTER device (20 sources)Start: 41-90-6976HHOYTZ G6 TRANSMITTER device 01/24/2022 Active Start: 78-84-0923ROLOFK G6 TRANSMITTER device CHANGE every three MONTHS as directed with G6 Sensor 01/24/2022 ActiveStart: 60-19-1381CHKKAO G6 TRANSMITTER device CHANGE every three MONTHS as directed with G6 Sensor 0 01/24/2022 Active diclofenac sodium 0.01 mg/mg topical gel (20 sources)Nonsteroidal Anti-inflammatory DrugStart: 15-73-5345oydztomjmu sodium (VOLTAREN) 1 % gel Apply to affected area tid 100 g 7 08/20/2023 Active Start: 06-18-2023 End: 56-91-4174Szkgbmuzct Sodium 1 % gel Discontinued TOPICAL Three times daily June 18, 2023 12:00am November 04, 2024 3:34pm as directed Externally TID; Start: 12-18-2022 End: 66-55-4419vlcmaepnwr sodium (VOLTAREN) 1 % gel APPLY TO AFFECTED AREA 3 TIMES A DAY 100 g 5 12/18/2022 08/17/2023 Discontinued (Reorder)Start: 78-63-5999govjr 2 g topically twice daily as needed for paindiclofenac (VOLTAREN) 1 % topical gel Indications: Costochondritis APPLY 2GM TO AFFECTED AREA TWICEDAILY NEEDED FOR PAIN DIRECTED 100 g 1 05/05/2021 Active Diclofenac Sodium 1 % as directed Externally TID ActiveComment on above:APPLY 2GM TO AFFECTED AREA TWICE DAILY NEEDED FOR PAIN DIRECTEDdocusate sodium 100 mg oral capsule (20 sources)Start: 06-18-2023 End: 24-14-8842hnkp 1 capsule by mouth in the morning, then take 1 capsule by mouth at bedtimedocusate sodium (STOOL SOFTENER) 100 mg capsule Take 1 capsule (100 mg total) by mouth in the morning and 1 capsule (100 mg total) before bedtime. 180 capsule 3 10/20/2024 ActiveStart: 04-12-2022 End: 66-91-7442pses 1 capsule by mouth in the morningSTOOL [...] mg oral tablet (20 sources)Start: 10-16-2023 End: 39-04-9830tzfs 1 tablet by mouth in the morningferrous sulfate 325 (65 FE) MG tablet Take 1 tablet (325 mg total) by mouth in the morning. 90 tablet 3 10/20/2024 ActiveStart: 83-90-6480lgbd 1 tablet by mouth in the morningferrous sulfate 325 (65 FE) mg tablet TAKE 1 TABLET (325 MG TOTAL) BY MOUTH IN THE MORNING 90 tablet 1 09/11/2023 ActiveStart: 01-01-2023 End: 91-27-8711tjso 1 tablet by mouth once dailyFerrous Sulfate 325 mg (65 mg iron) tablet Active 325 MG PO Daily June 18, 2023 12:00am Complies with drug therapytake 1 tablet by mouth once dailyFerrous Sulfate 325 (65 Fe) MG 1 tablet Orally Once a day ActiveComment on above:Take 325 mg by mouth once daily. gentamicin 3 mg/ml ophthalmic solution (1 source)Start: 07-24-2023 End: 93-04-9608wgkhxvvtud (GARAMYCIN) 0.3 % ophthalmic solution Administer 1 drop to both eyes in the morning and 1 drop at noon and 1 drop in the evening and 1 drop before bedtime. Do all this for 5 days. 5 mL 07/24/2023 07/29/2023 ActivehydroCHLOROthiazide 25 mg oral tablet (20 sources)Thiazide DiureticStart: 04-02-2023 End: 70-10-5924ayvn 1 tablet by mouth once dailyHydrochlorothiazide 25 mg tablet Active 25 MG PO Daily June 18, 2023 12:00am Complies with drug therapy1.5 ml insulin glargine 300 unt/ml pen injector (20 sources)Insulin AnalogStart: 67-33-3980dunuax 30 [IU] by subcutaneous injection once daily in the morningStart: 06-18-2023 End: 17-78-5660Naawyhx Glargine U-300 Conc 300 unit/mL (1.5 mL) insulin pen Discontinued 0 SUBCUT Daily September 24, 2023 3:14pm September 24, 2023 4:57pm 40 units qam Subcutaneous as directed; (titrate up to 40 units/day) ON HAND FOR PUMP FAILSStart: 05-15-2023 End: 61-25-4785Qilxdxt Glargine U-300 Conc 300 unit/mL (1.5 mL) insulin pen Discontinued 37 UNIT SUBCUT Daily 4.5 90 May 16, 2023 1:20pm June 18, 2023 3:19pm FreeTextSi units qam Subcutaneous as directed; Note: Source Status: Increase(titrate up to 40 units/day); Refills: 3; Provider: Jacqueline Brunson KStart: 28-98-7187KGGTND SOLOSTAR U-300 INSULIN 300 unit/mL (1.5 mL) insulin pen 03/13/2022 ActiveStart: 68-47-5029ryifhl 10 [IU] by subcutaneous injection in the morning, then inject 20 [IU] by subcutaneous injection once daily in the morningTOUJEO SOLOSTAR U-300 INSULIN 300 unit/mL (1.5 mL) insulin pen INJECT 10 UNITS IN THE MORNING. TITRATE UP TO 20 UNITS SUBCUTANEOUSLY PER DAY EVERY MORNING 03/13/2022 ActiveStart: 67-21-1985rmmaym 22 [IU] by subcutaneous injection once daily in the morningToujeo SoloStar 300 UNIT/ML 22 units qam Subcutaneous as directed for 30 days (titrate up to 30 units/day) Dec, ActiveStart: 58-54-6016ldubpm 10 [IU] by subcutaneous injection once daily [...] unit/mL (1.5 mL) insulin pen (5 sources)Start: 65-62-4724ifmtmz 30 [IU] by subcutaneous injection once daily in the morningInsulin Glargine U-300 Conc 300 unit/mL (1.5 mL) insulin pen Active 0 SUBCUT Daily September 24, 2023 3:57pm 30 units qam Subcutaneous as directed; (titrate up to 40 units/day) ON HAND FOR PUMP FAILSStart: 09-24-2023 End: 45-68-2066Vusaljo Glargine U-300 Conc 300 unit/mL (1.5 mL) insulin pen Discontinued 0 SUBCUT Daily September 24, 2023 2:14pm September 24, 2023 3:57pm 40 units qam Subcutaneous as directed; (titrate up to 40 units/day) ON HAND FOR PUMP FAILSStart: 06-18-2023 End: 98-24-6173Deffdqu Glargine U-300 Conc 300 unit/mL (1.5 mL) insulin pen Discontinued 0 SUBCUT Daily June 18, 2023 2:10pm September 24, 2023 2:16pm 40 units qam Subcutaneous as directed; (titrate up to 40 units/day)Start: 05-16-2023 End: 93-07-2567Hedjobp Glargine U-300 Conc 300 unit/mL (1.5 mL) insulin pen Discontinued 37 UNIT SUBCUT Daily 4.5 90 May 16, 2023 12:20pm June 18, 2023 2:19pm FreeTextSi units qam Subcutaneous as directed; Note: Source Status: Increase(titrate up to 40 units/day); Refills: 3; Provider: Jacqueline Bolañosrt: 05-15-2023 End: 35-96-8771Niizzur Glargine U-300 Conc 300 unit/mL (1.5 mL) insulin pen Discontinued UNIT SUBCUT May 14, 2023 11:00pm May 16, 2023 12:22pm FreeTextSi units qam Subcutaneous as directed; Note: Source Status: Increase(titrate up to 40 units/day); Refills: 3; Provider: Jacqueline Mcqueen insulin lispro 100 unt/ml injectable solution (20 sources)Insulin AnalogStart: 03-43-0535Pcvgp: 12-73-2415pdjjue 110 [IU] by subcutaneous injection once dailyInsulin Lispro (Humalog U-100 Insulin) 100 unit/mL solution Active 0 SUBCUT Use as Directed July 29, 2024 2:39pm Use with insulin pump up to 110 units per day. subcutaneously use as directed; Co mplies with drug therapyStart: 08-30-2023 End: 35-49-9835HmeqKDB U-100 Insulin 100 unit/mL injection 08/30/2023 Active Start: 06-18-2023 End: 41-35-9717Ovnopbn Lispro (Humalog Kwikpen Insulin) 100 unit/mL insulin pen Discontinued 0 SUBCUT .COMPLEX September 24, 2023 3:15pm September 24, 2023 4:56pm 1:4 carb ratio ad tid. Corrective scale 1:15 ac, (hs if >200 half dose) Subcutaneous as directed; ON HAND FOR PUMP FAILS.Start: 03-13-2022 End: 90-46-0342QutnMVJ KwikPen Insulin 100 unit/mL insulin pen 1:25 CORRECTIVE SCALE BEFORE MEAL 3TIMES DAILY SUBCUTANEOUSLY DIRECTED*EXPECT UP TO 20UNITS DAILY 03/13/2022 10/20/2024 DiscontinuedStart: 92-42-3791LqbeSUZ KwikPen 100 UNIT/ML 1:40 corrective scale ac tid plus 1:10 ICR Subcutaneous as directed for 30 days (expect up to 20 units/day) Dec, ActiveInsulin Lispro (Humalog Kwikpen Insulin) 100 unit/mL insulin pen (3 sources)Start: 89-77-6898Ptjiltv Lispro (Humalog Kwikpen Insulin) 100 unit/mL insulin pen Active 0 SUBCUT Use as Directed 2023 12:00am 1:4 carb ratio ac tid. Corrective scale 1:15 ac, (hs if >200 half dose) Subcutaneous as directed; ON HAND FOR PUMP FAILSStart: 09-24-2023 End: 93-91-6060Tgodijm Lispro (Humalog Kwikpen Insulin) 100 unit/mL insulin pen Discontinued 0 SUBCUT .COMPLEX September 24, 2023 2:15pm September 24, 2023 3:56pm 1:4 carb ratio ad tid. Corrective scale 1:15 ac, (hs if >200 half dose) Subcutaneous as directed; ON HAND FOR PUMP FAILS.Start: 06-18-2023 End: 59-78-6850Ubjzuwp Lispro (Humalog Kwikpen Insulin) 100 unit/mL insulin pen Discontinued 0 SUBCUT .COMPLEX 2023 11:00pm September 24, 2023 2:16pm 1:4 carb ratio ad tid. Corrective scale 1:15 ac, (hs if >200 half dose) Subcutaneous as directed;Insulin Lispro (Humalog U-100 Insulin) 100 unit/mL solution (1 source)Start: 72-75-0339ppwmhp 100 [IU] by subcutaneous injection once daily Insulin Lispro (Humalog U-100 Insulin) 100 unit/mL solution Active 0 SUBCUT Use as Directed 90 2023 11:00pm Use with insulin pump up to 100 units per day. subcutaneously use as directed;lancing device misc (20 sources)Start: 67-95-0872jpbpqzu device misc 03/03/2022 ActiveStart: 09-06-8993uvdijrt device fhmqBtjfqh-Bkkuxgxq-Cmrbwvr 40,000-126,000- 168,000 unit capsule,delayed release(DR/EC) (1 source)Start: 98-62-5904vvra 2 capsules by mouth three times daily at mealtime, then take 1 capsule by mouth three times shouaFbdoqp-Niprtyoy-Leyejzp 40,000-126,000- 168,000 unit capsule,delayed release(DR/EC) Active 0 PO Three times daily June 17, 2023 11:00pm orally three times daily; 2 capsules with meals, 1 capsule witheach snack Orally tid;meclizine hydrochloride 25 mg oral tablet (20 sources)AntiemeticStart: 09-22-2022 End: 69-07-6084nzat 1 tablet by mouth three times dailyMeclizine [...] the morning. 0 ActiveMultivitamin preparation (19 sources)Start: 91-87-6410fvcc 1 tablet by mouth once dailyStart: 06-18-2023 take 1 tablet by mouth once dailymultivitamin (Daily Multivitamin) Active 1 TAB PO Daily June 18, 2023 12:00am Complies with drug therapyStart: 27-92-6969kexb 1 tablet by mouth once dailymultivitamin (Daily Multivitamin) Active 1 TAB PO Daily June 17, 2023 11:00pmtake 1 tablet by mouth once dailyMultivitamin - 1 tablet Orally Once a day Activeondansetron 4 mg oral tablet (20 sources)Serotonin-3 Receptor AntagonistStart: 12-11-2022 End: 72-50-1678ptkc 1 tablet by mouth every eight hours as neededOndansetron Hcl 4 mg tablet Active 4 MG PO Every 8 hours as needed June 18, 2023 12:00am Complies with drug therapypantoprazole 40 mg delayed release oral tablet (20 sources)Proton Pump InhibitorStart: 08-28-2022 End: 93-28-9817eslh 1 tablet by mouth once dailyPantoprazole 40 mg tablet,delayed release (DR/EC) Active 40 MG PO Daily June 18, 2023 12:00am Complies with drug therapyComment on above:Take 40 mg by mouth once daily.pen needle, diabetic (BD Janneth 2nd Gen Pen Needle) (3 sources)Start: 26-48-0403bgh needle, diabetic (BD Janneth 2nd Gen Pen Needle) Active .Route June 18, 2023 12:00amStart: 96-59-7041cwv needle, diabetic (BD Janneth 2nd Gen Pen Needle) Active .Route June 17, 2023 11:00pmmicroencapsulated potassium chloride 10 meq extended release oral tablet (20 sources)Start: 10-22-2023 End: 97-13-3835dhmq 1 tablet by mouth in the morning, [...] THE MORNING. 180 tablet 3 10/20/2024 ActiveStart: 39-47-1369fxfh 1 tablet by mouth twice dailyStart: 09-22-2022 End: 46-64-6616rxbh 1 tablet by mouth in the morningKLOR-CON M10 10 mEq CR tablet TAKE 1 TABLET (10 MEQ TOTAL) BY MOUTH IN THE MORNING 90 tablet 2 08/26 Activetake 1 tablet by mouth every twelve hoursPotassium Chloride ER 10 MEQ 1 tablet with food Orally Twice a day Activepsyllium 400 mg oral capsule (20 sources)Start: 24-90-9803Hqjsvdatk ActiveComment on above:Take by mouth once daily.Psyllium Husk (Metamucil) 0.4 gram capsule (1 source)Start: 73-38-8150Cxroiyur Husk (Metamucil) 0.4 gram capsule Active 0.4 GM PO Daily June 17, 2023 11:00pmSubcutaneous Insulin Pump (T:Slim X2 Control- Iq) misc (3 sources)Start: 54-08-0474Mfsfprlhrint Insulin Pump (T:Slim X2 Control-Iq) misc Active 0 .Route 1 August 20, 2023 12:00am Use continuously to deliver insulinStart: 43-91-3344Gahkkbjrwiyh Insulin Pump (T:Slim X2 Control-Iq) misc Active 0 .Route 1 August 19, 2023 11:00pm Use continuously to deliver insulin T:SLIM X2 CONTROL-IQ misc (10 sources)Start: 08-20-2023T:SLIM X2 CONTROL-IQ misc 08/20/2023 Active tiZANidine 4 mg oral tablet (20 sources)Central alpha-2 Adrenergic AgonistStart: 28-24-7377fdvt 1 tablet by mouth every eight hours as neededtiZANidine (ZANAFLEX) 4 mg tablet TAKE 1 TABLET (4 MG TOTAL) BY MOUTH EVERY 8 (EIGHT) HOURS NEEDED FOR MUSCLE SPASMS 270 tablet 3 11/10/2024 ActiveStart: 10-16-2023 End: 43-63-8798hlkg 1 tablet by mouth every eight hours as neededtiZANidine (ZANAFLEX) 4 mg tablet Take 1 tablet (4 mg total) by mouth every 8 (eight) hours as needed for muscle spasms. 270 tablet 3 10/20/2024 11/10/2024 Discontinued Start: 20-60-9407rgwg 1 tablet by mouth once daily at bedtime as neededStart: 83-99-1219gffi 1 tablet by mouth every eight hours [...] gluconate 50 mg oral tablet (17 sources)Start: 87-86-3628grcs 1 tablet by mouth twice dailytake 1 tablet by mouth every twelve hoursZinc 50 MG 1 tablet Orally TWICE A DAY Active Completed/Discontinued Medications MedicationDrug Class(es)DatesSig (Normalized)Sig (Original)acetaminophen 325 mg oral tablet (1 source)Start: 18-74-6563yerl 2 tablets by mouth every six hours [...] Central Nervous System Stimulant, MethylxanthineStart: 01-13-2021 End: 58-92-6799chnv 1-2 tablets by mouth every six hours as needed for headache utmriqpnhl-exujpackwmdnu-nrjn (FIORICET, ESGIC) 50-325-40 mg per tablet Take 1-2 tablets by mouth every 6 (six) hours as needed for headaches. 40 tablet 1 01/13/2021 04/02/2023 Discontinued (Alternate therapy)benzonatate 200 mg oral capsule (19 sources)Non-narcotic AntitussiveStart: 04-18-2023 End: 63-04-6911zcum 1 capsule by mouth three times daily as needed for cough benzonatate (TESSALON PERLES) 200 mg capsule Take 1 capsule (200 mg total) by mouth 3 (three) timesa day as needed for cough. 30 capsule 1 04/18/2023 10/20/2024 Discontinued (Patient Stopped On Own)blood-glucose sensor (Dexcom G6 Sensor) (3 sources)Start: 06-18-2023 End: 02-87-9134horcw-glucose sensor (Dexcom G6 Sensor) Discontinued .Route June 18, 2023 12:00am December 31, 2023 4:26pmStart: 06-18-2023 End: 30-05-6757oewjj-glucose sensor (Dexcom G6 Sensor) Discontinued .Route June 17, 2023 11:00pm December 31, 2023 3:26pmblood-glucose transmitter (Dexcom G6 Transmitter) (3 sources)Start: 06-18-2023 End: 02-21-0779cufor-glucose transmitter (Dexcom G6 Transmitter) Discontinued .Route June 18, 2023 12:00am December 31, 2023 4:26pmStart: 06-18-2023 End: 18-91-9039kgmmy-glucose transmitter (Dexcom G6 Transmitter) Discontinued .Route June 17, 2023 11:00pm December 31, 2023 3:26pmcephalexin 500 mg oral capsule (3 sources)Cephalosporin AntibacterialStart: 12-31-2023 End: 94-69-2172tknv 1 capsule by mouth four times dailyCephalexin 500 mg capsule Discontinued 500 MG PO Four times daily December 31, 2023 1:00am April 14, 2024 4:08pmglimepiride 2 mg oral tablet (1 source)SulfonylureaStart: 03-80-5753zwufrvldvsy (AMARYL) 2 mg tablet 4 mg daily with breakfast. 0 05/18/2020 ActiveComment on above:4 mg daily with breakfast. lidocaine 0.05 mg/mg medicated patch (20 sources)Antiarrhythmic, Amide Local AnestheticStart: 08-20-2023 End: 70-28-7282pcirv 1 dose transdermal route in the morninglidocaine (LIDODERM) 5 % Place 1 patch on the skin in the morning. 30 patch 7 08/20/2023 10/20/2024 Discontinued (Patient Stopped On Own)Start: 06-18-2023 End: 28-24-7910Bzccerwco 5 % adhesive patch,medicated Discontinued 1 PATCH TOPICAL Daily June 18, 2023 12:00am July 29, 2024 1:44pm 1 patch remove after 12 hours Externally Once a day;Start: 08-28-2022 End: 77-81-1752dexmj 1 dose transdermal route in the morninglidocaine (LIDODERM) 5 % Place 1 patch on the skin in the morning. 30 patch 5 02/15/2023 Active Lidocaine 5 % 1 patch remove after 12 hours Externally Once a day Active meloxicam 15 mg oral tablet (1 source)Nonsteroidal Anti-inflammatory DrugStart: 49-33-4241rgtf 1 tablet by mouth once dailymeloxicam (MOBIC) [...] Translations: [Type 2 diabetes mellitus with hyperglycemia]Onset: 41-43-5135OhjapotCfhskehk mellitus without complication (20 sources)Diabetes mellitus without complication; Translations: [Other specified diabetes mellitus without complications]Onset: 95-85-4482Kwnjqcy Disorders of lipid metabolism (20 sources)Hyperlipidemia; Translations: [Hyperlipidemia, unspecified]Onset: 32-26-2703SnfyyimQowwbisbqj disorders (1 source)Gastroesophageal reflux disease; Translations: [Gastro-esophageal reflux disease without esophagitis]Onset: 509707-31-2867LzliyzvEaormytfd hypertension (20 sources)Hypertensive disorder; Translations: [Essential (primary) hypertension]Onset: 61-75-6222TnkmenkTfenriqygxo deficiencies (2 sources)Undernutrition; Translations: [Mild protein-calorie malnutrition] Onset: 792832-11-3356KmdlsxfHanpt aftercare (16 sources)Long-term current use of insulin; Translations: [assisted (current) use of insulin]EpisodicOther aftercare (8 sources)assisted (current) use of insulin; Translations: [assisted (current) use of insulin]Onset: 17-05-6409CjfvwxzlCzmnl endocrine disorders (16 sources)Hypoglycemia; Translations: [Hypoglycemia, unspecified]ChronicOther endocrine disorders (1 source)Hypoglycemia, unspecifiedChronicOther nervous system disorders (1 source)Disorder of brain; Translations: [Encephalopathy, unspecified]Onset: 599916-21-0067ZfnsvbdVmeyv nutritional; endocrine; and metabolic disorders (20 sources)Obese class I; Translations: [Body mass index (BMI) 31.0-31.9, adult]Onset: 313487-78-1131XlejfrgUksci nutritional; endocrine; and metabolic disorders (1 source)Body mass index (BMI) 31.0-31.9, adultChronicOther nutritional; endocrine; and metabolic disorders (19 sources)Body mass index 30+ - obesity; Translations: [Body mass index (BMI) 32.0-32.9, adult]26-38-7152VgzfmmiUvjfe nutritional; endocrine; and metabolic disorders (1 source)Body [...] neoplasm of breast; Translations: [Patient encounter status]Onset: 821846-15-3848Bouvhgzu Residual codes; unclassified (16 sources)Acquired partial absence of pancreas; Translations: [Acquired partial absence of pancreas]ChronicResidual codes; unclassified (1 source)Acquired total absence of pancreas; Translations: [Personal history of surgery to other organs]09-96-7066PpvgcseKreq and subcutaneous tissue infections (4 sources)Site-specific infective disorders of skin; Translations: [Local infection of the skin and subcutaneous tissue, unspecified]11-56-8339Mreetxrr Unclassified (2 sources)Acute pancreatitis with uninfected necrosis, unspecified; Translations: [Acute pancreatitis with uninfected necrosis, unspecified]Onset: 61-37-1595Ituxeahjbpzx (1 source)Annual ExamOnset: 10-20-2024 Past or Other Problems Problem ClassificationProblemDateDocumented DateEpisodic/ChronicCrushing injury or internal injury (20 sources)Injury of pancreas; Translations: [Unspecified injury of tail of pancreas, initial encounter]Onset: 364084-19-5768XhwknicdWdycaugtpk and other anemia (1 source)Iron deficiency anemia; Translations: [Iron deficiency anemia, unspecified]Onset: 111494-46-1622PwepzbnlUbhvm and electrolyte disorders (6 sources)Hypernatremia; Translations: [Hyperosmolality and hypernatremia] Onset: [id number] infection (1 source)Clostridium difficile diarrhea; Translations: [Enterocolitis due to Clostridium difficile, not specified as recurrent]Onset: EpisodicIntestinal obstruction without hernia (1 source)Intestinal obstruction co-occurrent and due to decreased peristalsis; Translations: [Ileus, unspecified]Onset: 181360-81-2584BflateblBszz disorders (20 sources)Mood disordersOnset: 10-16-2023 Resolved: Other connective tissue disease (11 sources)Myofascial pain syndrome; Translations: [Myalgia, other site]Onset: 093707-76-6006KcqetbcmDbxgp lower respiratory disease (1 source)H/O: respiratory disease; Translations: [Personal history of other diseases of the respiratory system]Onset: 257673-35-4598MxnkzpvhQtfan upper respiratory infections (1 source)Acute sinusitis; Translations: [Other acute sinusitis]04-16-2023 EpisodicPancreatic disorders (not diabetes) (20 sources)Acute necrotizing pancreatitis; Translations: [Acute pancreatitis with uninfected necrosis, unspecified]Onset: 145765-25-7301Uuxwvpfj Spondylosis; intervertebral disc disorders; other back problems (20 sources)Neck pain; Translations: [Cervicalgia]Onset: EpisodicUnclassified (20 sources)Onset: 04-29-2020 Resolved: Results Test NameValueInterpretationReference RangeFacilityMicroAlb Creat Ratio,Uon 72-73-1598Nrbszuh DL <= 20 mg/L (U) [Mass/Vol]mg/dLNormal0.0-1.8The [facility] Physician GroupComment on above:Performed By: #### URMACRERAT #### [place] [address] USACreatinine, Urine (Random)35.00 mg/dLNormNemours Children's Hospital Physician [facility] MississippiComment on above:Result Comment: No reference range established Performed By: #### URMACRERAT #### [facility] [address] [place] [address] USAMicroalbumin/Creatinine RatioNot performedNormal0.0-30.0 The [facility] Physician GroupComment on above:Result Comment: PERFORMED BY: [place] [address] PATHOLOGIST EXECUTIVE OFFICER CHAGO VELEZ M.D.Performed By: #### URMACRERAT #### [place] [id number] USAA1C HEMOGLOBINon 77-03-0699MeK5b (Bld) [Mass fraction]7.8 %[employer] Other Glucose - FINGER STICKon 13-03-3100Fxpntgl [Mass/Vol] 132 mg/dLNoSonitus Technologies Other HbA1c (Bld) [Mass fraction]on 06-17-4867O5Y HEMOGLOBIN [employer] Other A1C HEMOGLOBINon 90-70-6324FnW9t (Bld) [Mass fraction] 6.7 %[employer] Other Glucose - FINGER STICKon 47-86-8703Szqruad [Mass/Vol] 126 mg/dLNoSon[employer] Technologies Other HbA1c (Bld) [Mass fraction]on 78-26-3968M5W HEMOGLOBIN [employer] Other Glucose - FINGER STICKon 72-62-7863Iwnacdt [Mass/Vol] 106 mg/dLNoSon[employer] Other Glucose - FINGER STICKon 33-46-1291Mycvkbn [Mass/Vol] 131 mg/dLNoSonitus Technologies Other GGTon 58-18-2516Tpgxm glutamyl transferase [Catalytic activity/Vol]27 U/LNormal8-55The [facility] HospitalComment on above:Performed By: #### GGT, ALT, AST #### [facility] [address] [place], [place] [address] Dr. Caridad Odomn 16-92-2174LQN [Catalytic activity/Vol]24 U/ZWjclhp49-59Rwf [facility] HospitalComment on above:Performed By: #### GGT, ALT, AST ####[facility] [address] [place], [place] [address]SkDr. Caridad Rice on 04-71-1304WSN [Catalytic activity/Vol]40 U/HWpvkjv14-90Mug [facility] Comment on above:Performed By: #### GGT, ALT, AST #### [facility] [address] [place], [place] [address] Dr. Caridad Luna - FINGER STICKon 81-67-2038Pmtxkxt [Mass/Vol]126 mg/dL [employer] Other A1C HEMOGLOBINon 85-14-4217CwU9y (Bld) [Mass fraction] 10.0 %[employer] Other Glucose - FINGER STICKon 31-35-6987Cxmrgrf [Mass/Vol] 125 mg/dLNort [employer] Other HbA1c (Bld) [Mass fraction]on 93-71-2250B6Q HEMOGLOBIN [facility] LectureTools Other 132-5364K-NMHVLRR, SERUMon 66-43-2520M-Peptide, Serum3.5 ng/mL Normal1.1-4.4The [facility] HospitalComment on above:Result Comment: C-Peptide reference interval is for fasting patients.Performed By: #### CPEPT #### [facility] [address] [place] [address] [address] Caridad CanadaGGTon 75-87-1630Grike glutamyl transferase [Catalytic activity/Vol]40 U/LNormal8-55[facility] CenterComment on above:Performed By: #### AST, K, ALT, LIPID, GGT ####[facility] [address] [place] [address]DrAries CanadaGLUCOSE BLOODon 39-03-4424Pmsplve [Mass/Vol]342 mg/dLCritically lqmp59-232BkmPremier Health Upper Valley Medical CenterComment on above: Performed By: #### GLUC ####[facility] [address] [place] [address]DrAries CanadaLIPID PROFILEon 02-31-7780MUXH-HDL RATIO NORMSEE BELOWNoKettering Health SpringfieldComment on above:Result Comment: 3.3 - 4.4 LOW RISK 4.4 - 7.1 AVERAGE RISK 7.1 - 11.0 MODERATE RISK >11.0 HIGH RISKPerformed By: #### AST, K, ALT, LIPID, GGT ####[facility] [address] [place] [address]DrAries CanadaCholesterol [Mass/Vol]142 mg/dLNormal<=200The [facility]idianville HospitalComment on above:Performed By: #### AST, K, ALT, LIPID, GGT ####[facility] [address] [place] [address]Dr. Yilan ChangCholesterol in HDL [Mass/Vol]32 mg/dL Critically ruu12-92AoeJ.W. Ruby Memorial Hospital on above:Performed By: #### AST, K, ALT, LIPID, GGT ####[facility] [address] [place] [address]Dr. Yilan ChangCholesterol in LDL [Mass/Vol]62.2 mg/dLFisher-Titus Medical CenterComcorewell health pennock hospital on above:Performed By: #### AST, K, ALT, LIPID, GGT ####[facility] [address] [place], [place] [address]Dr. Yilan ChangCholesterol.total/Cholesterol in HDL [Mass ratio]4.4 {ratio}NormalThe [facility] on above:Performed By: #### AST, K, ALT, LIPID, GGT ####[facility] [address] [place], [place] [address]Dr. Yilan ChangHDL NORMAL> or = 60 mg/dl - LOW CARDIOVASCULAR RISK <40 mg/dl - HIGH CARDIOVASCULAR RISKFisher-Titus Medical CenterComcorewell health pennock hospital on above:Performed By: #### AST, K, ALT, LIPID, GGT ####[facility] [address] [place], [place] [address]Dr. Yilan ChangLDL CALC NORMALSEE BELOWFisher-Titus Medical CenterComcorewell health pennock hospital on above:Result Comment: <100 mg/dl OPTIMAL 100 - 129 mg/dl NEAR OR ABOVE OPTIMAL 130 - 159 mg/dl BORDERLINE HIGH 160 - 189 mg/dl HIGH >190 mg/dl VERY HIGHPerformed By: #### AST, K, ALT, LIPID, GGT ####[facility] [address] [place], [place] [address]Dr. Yilan Canada Triglyceride [Mass/Vol]239 mg/dLCritically high<=150[facility] on above:Performed By: #### AST, K, ALT, LIPID, GGT ####[facility] [address] [place], [place] [address]Dr. Yilan ChangVLDL CALC47.8 mg/dLFisher-Titus Medical CenterComment on above:Performed By: #### AST, K, ALT, LIPID, GGT ####[facility] [address] [place] [address]Dr. Caridad ChangMICROALB CREAT RATIO RANDOMon 54-78-7492tRIM<1.3Normal<=30.0 The [facility] HospitalComment on above:Performed By: #### MCRR ####[facility] [address] [place], [place] [address]Dr. Caridad CanadaMALB CR RATIO11.1 mg/gNormal0.0-29.9The [facility] HospitalComment on above:Performed By: #### MCRR ####[facility] [address] [place], [place] [address]Dr. Caridad ChangMALB CR RATIO RANGESEE BELOWFisher-Titus Medical Center Comment on above:Result Comment: NO MICROALBUMINURIA 0-29 MG/G CLINICAL MICROALBUMINURIA 30-300 MG/G MACROALBUMINURIA >300 MG/GPerformed By: #### MCRR ####[facility] [address] [place], [place] [address]Dr. Caridad ChangURINE LBNQZ081.75 mg/uIRacnru57.00-300.00[facility] CenterComment on above:Performed By: #### MCRR ####[facility] [address] [place], [place] [address]Dr. Caridad CanadaPOTASSIUMon 02-77-8198Szadghags [Moles/Vol]4.1 mmol/LNormal3.5-5.1The [facility] HospitalComment on above: Performed By: #### AST, K, ALT, LIPID, GGT ####[facility] [address] [place], [place] [address]Dr. Caridad CanadaSGOTon 23-85-5780KDY [Catalytic activity/Vol]32 U/MLdtiam55-09Rvv [facility] HospitalComment on above: Performed By: #### AST, K, ALT, LIPID, GGT ####[facility] [address] [place], [place] [address]NlDr. Caridad CanadaSGPTon 14-18-6269HOE [Catalytic activity/Vol]63 U/LCritically jnia33-44Wtd [facility] HospitalComment on above:Performed By: #### AST, K, ALT, LIPID, GGT ####[facility] [address] [place], [place] [address]UoDr. Caridad CanadaGlucose - FINGER STICKon 57-20-3667Xvitpuj [Mass/Vol]359 mg/dLNosaint luke's north hospital–barry [address] [employer] Other GLYCOHEMOGLOBIN A1Con 29-80-4617GVZ RECOMMENDATIONSEE BELOWFisher-Titus Medical CenterComment on above:Result Comment: ADA RECOMMENDED LIMIT 4.0 - 6.0 ADA THERAPEUTIC TARGET < 7.0 ACTION SUGGESTED > 7.0Performed By: #### A1C #### [facility] [address] [place] [address] [address] Caridad CanadaGlucose [Mass/Vol]272 mg/dLNoKettering Health SpringfieldComment on above:Performed By: #### A1C #### [facility] [address] [place] [address] [address] Caridad CanadaHbA1c (Bld) [Mass fraction]11.1 %Critically high4.5-6.2The [facility] HospitalComment on above:Performed By: #### A1C #### [facility] [address] [place] [address] [address] Caridad CanadaMG MAMM SCREEN 3D MERCY CADon 38-50-1381GC MAMM SCREEN 3D MERCY CAD Patient: NICHOLE SANDHU Exam Date: 11/08/2021 : 1955 Gender:F Ordering : DR SAMIA LANDEROS Admission #: [id number] Family : Order #: [id number] CLICK HERE TO VIEW EXAM RADIOLOGY REPORT [...] No Treatments None Family Cancers None [facility]: [facility] BREAST COMPOSITION: Scattered areas fibroglandular density. FINDINGS: [...] by: Samia Cheek MD on 11/09/2021 at 07:37[facility] MICROALBUMIN/ CREATININE RATIOon 18-39-4431Lhzatel, Jgmdv687.5 ug/mLNormalNot Estab.[facility] CenterComment on above:Result Comment: Results confirmed on dilution.Performed By: #### MALBCRL #### [facility] [address] [place] [address] Dr. Caridad CanadaAlbumin/ Creatinine Tjzqi867 mg/g creatCritically high0-29[facility] CenterComment on above:Result Comment: Normal: 0 - 29 Moderately increased: 30 - 300 Severely increased: >300Performed By: #### MALBCRL #### [facility] [address] [place] [address] Dr. Caridad CanadaCreatinine, Yneor814.2 mg/dLNormalNot Estab.The [facility] Comment on above:Performed By: #### MALBCRL #### [facility] [address] [place] [address] Dr. Caridad Abraham AUTO DIFFon 00-52-1237NNXE #0.1 103/ulNormal0.0-0.1The [facility] HospitalComment on above:Performed By: #### CBC #### [facility] [address] [place] [address] Dr. Caridad CanadaBasophils/100 WBC (Bld)0.9 %Normal0.2-2.0The [facility] Comment on above:Performed By: #### CBC #### [facility] [address] [place] [address] [address] Caridad Russell #0.5 103/ulNormal0.0-0.7The [facility] HospitalComment on above: Performed By: #### CBC #### [facility] [address] [place] [address] [address] Caridad Figueroaosinophils/100 WBC (Bld)4.1 %Normal0.9-7.0The [facility] Comment on above:Performed By: #### CBC #### [facility] [address] [place] [address] Dr. Caridad Figueroarythrocyte distribution width (RBC) [Ratio]13.2 %Zgqxwx39.0-15.0 The [facility] HospitalComment on above:Performed By: #### CBC #### [facility] [address] [place] [address] Dr. Caridad CanadaHematocrit (Bld) [Volume fraction]42.5 %Oqusky24.0-48.0The [facility] HospitalComment on above:Performed By: #### CBC #### [facility] [address] [place] [address] Dr. Caridad CanadaHemoglobin (Bld) [Mass/Vol]14.2 g/fVNoaclk40.0-16.0The [facility] HospitalComment on above:Performed By: #### CBC #### [facility] [address] [place] [address] Dr. Caridad Murdock #0.08 10e3/ulCritically high0.00-0.03The [facility] Comment on above:Performed By: #### CBC #### [facility] [address] [place] [address] Dr. Caridad Murdock %0.7 %Critically high0.0-0.5The [facility] HospitalComment on above:Performed By: #### CBC #### [facility] [address] [place] [address] Dr. Caridad Colunga #4.0 103/ulCritically high1.2-3.8The [facility] Comment on above:Performed By: #### CBC #### [facility] [address] [place] [address] Dr. Caridad Cuellarmphocytes/100 WBC (Bld)32.9 %Vmqfvo76.5-60.0The [facility] HospitalComment on above:Performed By: #### CBC #### [facility] [address] [place] [address] Dr. Caridad Bonner DIFF REQNONormalThe [facility] HospitalComment on above: Performed By: #### CBC #### [facility] [address] [place] [address] Dr. Caridad Millard (RBC) [Entitic mass]28.8 zsBwofmi31.7-34.0The [facility] HospitalComment on above:Performed By: #### CBC #### [facility] [address] [place] [address] Dr. Caridad Millard (RBC) [Mass/Vol]33.4 g/zCBymblw02.9-35.2The [facility] HospitalComment on above:Performed By: #### CBC #### [facility] [address] [place] [address] Dr. Caridad Millard (RBC) [Entitic vol]86.2 fYGtskwz65.0-99.0The [facility] HospitalComment on above:Performed By: #### CBC #### [facility] [address] [place] [address] Dr. Caridad Hassan #0.7 103/ulNormal0.3-0.8The [facility] HospitalComment on above:Performed By: #### CBC #### [facility] [address] [place] [address] Dr. Caridad Hollidayocytes/100 WBC (Bld)6.1 %Normal1.7-12.0[facility] Comment on above:Performed By: #### CBC #### [facility] [address] [place] [address] Dr. Caridad Zhou #6.7 103/ulCritically high1.4-6.5The [facility] Comment on above:Performed By: #### CBC #### [facility] [address] [place] [address] [address] Caridad Forbesutrophils/100 WBC (Bld)55.3 %Ekuabm24.0-75.0[facility] CenterComment on above:Performed By: #### CBC #### [facility] [address] [place] [address] [address] Caridad CanadaPlatelet mean volume (Bld) [Entitic vol]12.1 fLNormal9.5-13.5The [facility] HospitalComment on above:Performed By: #### CBC #### [facility] [address] [place] [address] [address] Caridad CanadaPLT320 103/peFmonzp833-666Yef [facility] HospitalComment on above: Performed By: #### CBC #### [facility] [address] [place] [address] [address] Caridad CanadaRBC4.93 106/ulNormal4.20-5.40The [facility] HospitalComment on above:Performed By: #### CBC #### [facility] [address] [place] [address] [address] Caridad CanadaWBC12.1 103/ulCritically high4.0-11.0[facility] CenterComment on above:Performed By: #### CBC #### [facility] [address] [place] [address] [address] Caridad CanadaFRKYLE T4on 13-27-3398Ergx T4 [Mass/Vol]1.22 ng/dLNormal0.76-1.46 The [facility] HospitalComment on above:Performed By: #### FT4 ####[facility] [address] [place] [address]Dr.Yilan CanadaLIPID PROFILEon 75-53-8493HJAP-HDL RATIO [facility] Comment on above:Result Comment: 3.3 - 4.4 LOW RISK 4.4 - 7.1 AVERAGE RISK 7.1 - 11.0 MODERATE RISK >11.0 HIGH RISKPerformed By: #### CMP, LIPID, TSH #### [facility] [address] [place] [address] [address] Caridad CanadaCholesterol [Mass/Vol]181 mg/dLNormal<=200[facility] Comment on above:Performed By: #### CMP, LIPID, TSH #### [facility] [address] [place] [address] Dr. Caridad CanadaCholesterol in HDL [Mass/Vol]30 mg/dLCritically qbe79-39Wjd [facility] HospitalComment on above:Performed By: #### CMP, LIPID, TSH #### [facility] [address] [place] [address] Dr. Caridad CanadaCholesterol in LDL [Mass/Vol]74.6 mg/dLNoKettering Health SpringfieldComment on above:Performed By: #### CMP, LIPID, TSH #### [facility] [address] [place] [address] Dr. Caridad Oliveiraesternevaeh.total/Cholesterol in HDL [Mass ratio]6.0 {ratio} NormalThe [facility] HospitalComment on above:Performed By: #### CMP, LIPID, TSH #### [facility] [address] [place] [address] Dr. Caridad Casper NORMAL> or = 60 mg/dl - LOW CARDIOVASCULAR RISK <40 mg/dl - HIGH CARDIOVASCULAR RISKFisher-Titus Medical CenterComment on above:Performed By: #### CMP, LIPID, TSH #### [facility] [address] [place] [address] Dr. Caridad CanadaLDL CALC NORMALSEE BELOWFisher-Titus Medical CenterComment on above:Result Comment: <100 mg/dl OPTIMAL 100 - 129 mg/dl NEAR OR ABOVE OPTIMAL 130 - 159 mg/dl BORDERLINE HIGH 160 - 189 mg/dl HIGH >190 mg/dl VERY HIGH Performed By: #### CMP, LIPID, TSH #### [facility] [address] [place] [address] Dr. Caridad CanadaTriglyceride [Mass/Vol]382 mg/dLCritically high<=150The [facility] HospitalComment on above:Performed By: #### CMP, LIPID, TSH #### [facility] [address] [place] [address] [address] Caridad GilliamLDL CALC76.4 mg/dLNormalThe [facility] HospitalComment on above: Performed By: #### CMP, LIPID, TSH #### [facility] [address] [place] [address] [address] Caridad CanadaPROF 14(COMP METB)on 47-42-8630Ndjujzm [Mass/Vol]3.6 g/dLNormal 3.4-5.0The [facility] HospitalComment on above:Performed By: #### CMP, LIPID, TSH #### [facility] [address] [place] [address] Dr. Caridad CanadaAlbumin/Globulin [Mass ratio]0.8 {ratio}NormalThe [facility] HospitalComment on above:Performed By: #### CMP, LIPID, TSH #### [facility] [address] [place] [address] Dr. Caridad Wolfe [Catalytic activity/Vol]98 U/RXsfmcg53-119Mgh [facility] HospitalComment on above:Performed By: #### CMP, LIPID, TSH #### [facility] [address] [place] [address] Dr. Caridad Murray [Catalytic activity/Vol]53 U/WBahhga61-70Wni [facility] Hospitalment on above:Performed By: #### CMP, LIPID, TSH #### [facility] [address] [place] [address] Dr. Caridad Saunders gap [Moles/Vol]13.6 mmol/LNormalThe [facility] on above:Performed By: #### CMP, LIPID, TSH #### [facility] [address] [place] [address] Dr. Cairdad Cano [Catalytic activity/Vol]28 U/YLfcfyj53-44Nnz [facility] Hospitalment on above:Performed By: #### CMP, LIPID, TSH #### [facility] [address] [place] [address] Dr. Caridad CanadaBilirubin [Mass/Vol]0.4 mg/dLNormal0.2-1.0The [facility] Comment on above:Performed By: #### CMP, LIPID, TSH #### [facility] [address] [place] [address] Dr. Caridad CanadaCalcium [Mass/Vol]9.2 mg/dLNormal8.5-10.1The [facility] Comment on above:Performed By: #### CMP, LIPID, TSH #### [facility] [address] [place] [address] Dr. Caridad CanadaChloride [Moles/Vol]99 mmol/MDcamxv60-217Fga [facility] Comment on above:Performed By: #### CMP, LIPID, TSH #### [facility] [address] [place] [address] Dr. Caridad CanadaCO2 [Moles/Vol]29.8 mmol/ABedayi43.0-32.0The [facility] Comment on above:Performed By: #### CMP, LIPID, TSH #### [facility] [address] [place] [address] Dr. Caridad CanadaCreatinine [Mass/Vol]0.66 mg/dLNormal0.55-1.02The [facility] HospitalComment on above:Performed By: #### CMP, LIPID, TSH #### [facility] [address] [place] [address] Dr. Caridad FigueroaGFR-AF BANGLADESHI>60Normal>=60The [facility] HospitalComment on above:Performed By: #### CMP, LIPID, TSH #### [facility] [address] [place] [address] Dr. Caridad FigueroaGFR-NON AF BANGLADESHI>60Normal>=60The [facility] HospitalComment on above:Performed By: #### CMP, LIPID, TSH #### [facility] [address] [place] [address] Dr. Caridad CanadaGlobulin (S) [Mass/Vol]4.3 g/dLNormalThe [facility] HospitalComment on above:Performed By: #### CMP, LIPID, TSH #### [facility] [address] [place] [address] Dr. Caridad CanadaGlucose [Mass/Vol]301 mg/dLCritically mwnp54-925Vyd [facility] HospitalComment on above:Performed By: #### CMP, LIPID, TSH #### [facility] [address] [address] [address] Caridad CanadaPotassium [Moles/Vol]3.4 mmol/LCritically low3.5-5.1The [facility] HospitalComment on above:Performed By: #### CMP, LIPID, TSH #### [facility] [address] [place] [address] Dr. Caridad CanadaProtein [Mass/Vol]7.9 g/dLNormal6.4-8.2The [facility] Comment on above:Performed By: #### CMP, LIPID, TSH #### [facility] [address] [place] [address] Dr. Caridad CanadaSodium [Moles/Vol]139 mmol/KNkuchy947-957Wvi [facility] Comment on above:Performed By: #### CMP, LIPID, TSH #### [facility] [address] [place] [address] Dr. Caridad CanadaUrea nitrogen [Mass/Vol]6.0 mg/dLCritically low7.0-18.0The [facility] HospitalComment on above:Performed By: #### CMP, LIPID, TSH #### [facility] [address] [place] [address] Dr. Caridad CanadaUrea nitrogen/Creatinine [Mass ratio]9.1 mg/mgNormalThe [facility] HospitalComment on above:Performed By: #### CMP, LIPID, TSH #### [facility] [address] [place] [address] Dr. Caridad Dodge 43-77-3026ASC5.566 uIU/mLNormal0.358-3.740The [facility] HospitalComment on above:Performed By: #### CMP, LIPID, TSH #### [facility] [address] [place] [address] Dr. Caridad Sauceda 83-13-8512PQOBLEPYPknjod (PAINMN) INDRANICHOLE CHIRINOS ([id number]) 1955 F Date Time Provider Department 01/25/21 [...] A DAY NEEDED FOR PAIN DIRECTED - kxzmmb-xmemihcg-apzcdwr (ZENPEP) 40,000-126,000- 168,000 unit delayed release capsule [...] mouth once daily. - blood sugar diagnostic (Alleantia VERIO) test strip Use as instructed Problem [...] DIRECTED Encounter Status:Closed by JACEY CABRAL on 01/25/21NoC[facility] HospitalANES POSTPROC EVALon 16-58-6920NHTL POSTPROC EVALHNO ID: [id number] Author: Jayce Chase DO Service: Anesthesiology Author [...] August 31, 2020 TIME: 9:44 AM CSN: [id number] HospitalANES PRE-OPon 08-31-2020 ANES PRE-OPHNO ID: [id number] Author: Jayce Chase DO Service: Anesthesiology Author [...] A DAY NEEDED FOR PAIN DIRECTED - lpanct-aannhltn-mbbufcc (ZENPEP) 40,000-126,000- 168,000 unit cpDR Take 2 [...] mouth once daily. - blood sugar diagnostic (BottlenoseTOUCH VERIO) test strip Use as instructed I have interviewed and examined the patient. I have reviewed the medical record and/or the pre-anesthesia evaluation, pertinent labs, and test results. This contains updated information obtained within 48 hours of Surgery/Procedure. SIGNATURE: Chino Graves DO PATIENT NAME: Nichole Sandhu DATE: August 31, 2020 TIME: 7:27 AM CSN: [id number] HospitalCNCOon [id number] Letter TextNoMosaic Life Care at St. JosephHISTORY PHYSICALon 30-38-4730SUMXKIG PHYSICALHNO ID: [id number] Author: Chaz Benitez PA-C Service: Gastroenterology Author Type: Physician Orchestrator Type: HANDP Filed: 08/31/2020 8:10 AM Note [...] is colonoscopy. Medication reconciliation list reviewed in [facility]. Past medical history, past surgical history, social history and family history reviewed and updated in [facility]. ALLERGIES Allergen Reactions - Ativan [Lorazepam] Other: [...] Sandhu DATE: August 31, 2020 TIME: 7:28 [facility] [id number] PROGHNO ID: [id number] Author: Ericka Hughes RN Service: Gastroenterology Author Type: Registered Nurse Type: Nursing Progress Note Filed: 09/01/2020 10:56 AM Note Text: [facility] POST PROCEDURE FOLLOW UP CALL [phone] (home) Date Phone Call Made: 09/01/2020 Attempt: [...] your experience more pleasant? No [facility]2020 SURGICAL PATHOLOGYSpecimen originated from [facility] Specimen #: [id number] Submitting Physician: JAYCE STEPHEN FINAL DIAGNOSIS 1. [...] in one cassette. Gross examination performed at [facility], [address] [place] [address] 08/31/2020 2:17:20 PM Date of Report: 09/01/2020 Date of Procedure: 08/31/2020 Date of Receipt: 08/31/2020 Submitted by: JAYCE STEPHEN Location: [facility] Diagnostic interpretation performed at [facility], [address] [place] [address], [place] [address]. CLIA Number: [id number] NURSING PROGon [id number] BRIAN ID: [id number] Author: Rosibel Aiken RN Service: ? Author Type: Registered Nurse Type: Nursing Progress Note Filed: 08/30/2020 2:11 PM Note Text: [facility] ENDOSCOPY PRE PROCEDURE CALL Diana. 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 Breana Sandhu What is the best number for your regional company hazmat tanker driver to be reached at tomorrow for updates? [phone] At this time due to COVID precautions [...] to proceed. Are you familiar with where [facility] is located?yes Address [facility] Patient instructed to enter through the main hospital entrance off [address] at the [address] through the revolving doors and check in at the main desk with your regional company hazmat tanker driver's license and insurance card. yes If anesthesia or sedation is being given: Patient instructed you must have an adult regional company hazmat tanker driver because you will not be able to work or drive for the rest of the day after your test.yes Patient instructed not bring any valuables, jewelry, or ponce and wear comfortable clothing. Do not wear makeup, lotion, or finger lithuanian. yes Patient instructed: Do not eat or [...] given Any barriers to Patient learning (confusion? Baling Press Operator needed?): Patient/Patient Criminal Justice Lawyer responded appropriately on phone. 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 [...] A DAY NEEDED FOR PAIN DIRECTED - hmonbn-cnklbkov-wtmmlpu (ZENPEP) 40,000-126,000- 168,000 unit cpDR Take 2 [...] 40 mg by mouth once daily. - axckwb-cfugrhdf-jdmxcjy (ZENPEP) 40,000-126,000- 168,000 unit cpDR Take 2 [...] mouth once daily. - blood sugar diagnostic (Alleantia VERIO) test strip Use as instructed Problem [...] Encounter Status:Closed by BERNARDA PÉREZ Deborah on 08/18/20[facility] Coding Summary.on 45-99-5079Pmelzx Summary.CODING DATE: 01/16/2018 FINAL [facility] STATUS: Home (Routine DC) PAYOR: Medical Dustin APC DESCRIPTION 5571 Level 1 Imaging with [...] Sherin Denny CphT Date Saved: 01/16/2018 07:44 amNWyandot Memorial HospitalCoding Summary. on 10-07-2198Rtzhfl Summary.CODING DATE: 12/27/2017 FINAL [facility] STATUS: Home (Routine DC) PAYOR: Medical Dustin ADMIT DX: REASON FOR VISIT DX: E61.1 [...] Sherin Denny CphT Date Saved: 12/27/2017 02:09 pmNWyandot Memorial HospitalAuto Diffon 00-29-9768Uwpgjcako/100 WBC (Bld)0.2 %Normal0.0-2.0[facility] Comment on above:Order Comment: Order Added by Discern Expert.Performed By: #### [id number], [id number], 79863772, 4770645, 5895000 #### [facility] Laboratory [address] [place] [address] 23252Chjjsuqxd/Leukocytes Auto (Bld) [Pure # fraction]0.0 E9/LNormal 0.0-0.2FWVUMedicine Barnesville HospitalComment on above:Order Comment: Order Added by Discern Expert.Performed By: #### [id number], 03201373, 82181705, 2373470, 8578999 #### [facility] Laboratory [address] [place] [address] 46680Ealelibutck/100 WBC (Bld)0.9 %Normal0.0-8.0[facility] Medical CenterComment on above:Order Comment: Order Added by Discern Expert.Performed By: #### 2568416, 33445821, 26689751, 8535123, 6862759 #### [facility] [address] [place] [address] 02831Ypnckubaxsb/Leukocytes Auto (Bld) [Pure # fraction]0.1 E9/L Normal0.0-0.5FWVUMedicine Barnesville HospitalComment on above:Order Comment: Order Added by Discern Expert.Performed By: #### 6013043, 15901698, 84657167, 3835468, 9245237 #### [facility] [address] [place] [address] 81557Wbpebblpmta/100 WBC (Bld)8.4 %Low14.0-50.0[facility] CenterComment on above:Order Comment: Order Added by Discern Expert.Performed By: #### 9740318, 64242254, 39799746, 0833432, 3697714 #### [facility] [address] [place] [address] 60104Lqgxulazmdz/Leukocytes Auto (Bld) [Pure # fraction]1.3 E9/L Normal1.0-4.0[facility] Medical CenterComment on above:Order Comment: Order Added by Discern Expert.Performed By: #### 6519467, 02411546, 94228610, 7973372, 2202460 #### [facility] [address] [place] [address] 01624Qtuqzronk/100 WBC (Bld)6.8 %Normal4.0-14.0[facility] Medical CenterComment on above:Order Comment: Order Added by Discern Expert.Performed By: #### 7759431, 97763707, 65656668, 7855193, 9618575 #### [facility] Laboratory [address], [place] [address]Kpgadqafx/Leukocytes Auto (Bld) [Pure # fraction]1.1 E9/LHigh 0.2-1.0[facility] Medical CenterComment on above:Order Comment: Order Added by Discern Expert.Performed By: #### 9412098, 84334687, 11838734, 2914130, 3941809 #### [facility] [address] [place] [address] 26572Kibaivwgbcq/100 WBC (Bld)83.7 %High36.0-75.0[facility] Medical CenterComment on above:Order Comment: Order Added by Discern Expert. Performed By: #### 5546580, 21680868, 06448488, 9424422, 1531837 #### [facility] [address] [place] [address] 99438Isnpsnhedot/Leukocytes Auto (Bld) [Pure # fraction]13.1 E9/L High2.0-7.5FWVUMedicine Barnesville HospitalComment on above:Order Comment: Order Added by Discern Expert.Performed By: #### 7767495, 47719512, 90489104, 0307186, 0043701 #### [facility] [address] [place] [address] 04338YTR w/ Auto Diffon 93-89-5871Nogpapjnwst distribution width (RBC) [Ratio]16.4 %High10.9-14.2FWVUMedicine Barnesville HospitalComment on above: Performed By: #### 3799788, 49593785, 36696711, 1273398, 3840220 #### [facility] [address] [place] [address] 95648Vhpqtigbde (Bld) [Volume fraction]29.6 %Low34.0-46.0[facility] Medical CenterComment on above:Performed By: #### 5726281, 38490035, 93145783, 2419564, 6252692 #### [facility] Laboratory [address] [place], [place] [address]Tdbuejgefc (Bld) [Mass/Vol]9.2 g/dLLow12.0-16.0[facility] CenterComment on above:Performed By: #### 8462768, 54615307, 00403405, 9074514, 9801661 #### [facility] [address] [place], [place] [address]MOT (RBC) [Entitic mass]23.6 pgLow27.0-34.0[facility] Medical CenterComment on above:Performed By: #### 9571462, 33210655, 50343435, 9909678, 2587618 #### [facility] [address] [place] [address] 14990UWQO (RBC) [Mass/Vol]31.1 g/dLLow31.4-39.3FWVUMedicine Barnesville HospitalComment on above:Performed By: #### 1986418, 00616163, 88261102, 3900085, 2736852 #### [facility] [address] [place] [address] 64239GDS (RBC) [Entitic vol]75.9 fLLow80.0-100.0[facility] Medical CenterComment on above:Performed By: #### 1177263, 26038884, 98991091, 1828657, 1635109 #### [facility] Laboratory [address], [place] [address]Mnbogick mean volume (Bld) [Entitic vol]10.2 fLNormal6.4-10.8 [facility] CenterComment on above:Performed By: #### 3677771, 28549732, 95070008, 9708581, 0896452 #### [facility] [address] [place] [address] 82284Axvruzesm (Bld) [#/Vol]375.0 E9/GSriboq515.0-500.0[facility] CenterComment on above:Performed By: #### 6204107, 48205717, 99035428, 3404764, 4407483 #### [facility] [address] [place] [address] 34361ANX (Bld) [#/Vol]3.9 E12/LLow4.3-5.9[facility] Comment on above:Performed By: #### 9673363, 25839604, 18680019, 4746136, 0378957 #### [facility] [address] [place] [address] 96897XND corrected for nucl RBC Auto (Bld) [#/Vol]15.6 E9/LHigh 4.0-11.0[facility] CenterComment on above:Performed By: #### 1914079, 49598262, 76933833, 0041331, 7029508 #### [facility] [address] [place] [address] 19011JULao 39-42-8924Yzshhbi [Mass/Vol]0.6 g/dLLow1.1-2.2FWVUMedicine Barnesville HospitalComment on above:Performed By: #### 0973874, 44496574, 45801259, 6177236, 2976972 #### [facility] [address] [place] [address] 08896Jcgyejf [Mass/Vol]2.9 g/dLLow3.3-5.0[facility] Comment on above:Performed By: #### 4315772, 41417020, 20522605, 2969890, 8559785 #### [facility] [address] [place] [address] 78944WNW [Catalytic activity/Vol]62 Int._Unit/SChmuyj90-35LtgtkoLakehealth Beachwood Medical CenterComment on above:Performed By: #### 2275175, 35705065, 51516580, 7372369, 8591157 #### [facility] [address] [place] [address] 79600HDV No additional P-5'-P [Catalytic activity/Vol]12 Int._Unit/L Normal6-46[facility] Medical CenterComment on above:Performed By: #### 1222701, 38841950, 80478781, 3101554, 6068448 #### [facility] [address] [place], [place] [address]Fzypd gap [Moles/Vol]16 mmol/LNormal6-16[facility] CenterComment on above:Performed By: #### 0820303, 47390645, 90268622, 1998525, 3196772 #### [facility] [address], [place] [address]UYS [Catalytic activity/Vol]19 Int._Unit/LNormal5-43[facility] Medical CenterComment on above:Performed By: #### 8172081, 08602488, 57318813, 6041778, 5922155 #### [facility] [address], [place] [address]Fuljyimpk [Mass/Vol]0.5 mg/dLNormal0.0-1.1FWVUMedicine Barnesville HospitalComment on above:Performed By: #### 8297328, 70327247, 00767678, 7915519, 3893031 #### [facility] [address], [place] [address]Ayumsvp [Mass/Vol]8.9 mg/dLNormal8.9-11.1FWVUMedicine Barnesville HospitalComment on above:Performed By: #### 4697702, 41482140, 46486151, 0441097, 1062851 #### [facility] [address], [place] [address]Stbviawl [Moles/Vol]98 mmol/NTzk723-109RgzjuyLakehealth Beachwood Medical CenterComment on above:Performed By: #### 7059208, 89369849, 75462776, 8485195, 0123602 #### [facility] [address], [place] [address]DP2 [Moles/Vol]26 mmol/RDdpdvd03-52VblqxnLakehealth Beachwood Medical Center Comment on above:Performed By: #### 7045460, 89093082, 78031747, 4168111, 1912526 #### [facility] [address] [place] [address] 80933Wmfpmylxug [Mass/Vol]0.5 mg/dLNormal0.5-1.3FWVUMedicine Barnesville HospitalComment on above:Performed By: #### 2038900, 28506437, 25962860, 1849552, 7600194 #### [facility] [address], [place] [address]Xctpnobu (S) [Mass/Vol]4.8 g/dLHigh1.4-4.0[facility] CenterComment on above:Performed By: #### 4937928, 36001089, 99989130, 8940162, 9777181 #### [facility] Laboratory [address] [place] [address] 12745Kpxotrw [Mass/Vol]105 mg/jIKjfjnf50-578QyxhglLakehealth Beachwood Medical CenterComment on above:Result Comment: If this glucose result represents a fasting glucose, interpretation should refer tothe following reference range: 55-99 mg/dLPerformed By: #### 9838484, 21040466, 60704143, 1170994, 3024544 #### [facility] [address] [place] [address] 907[address]Zufkumwij [Moles/Vol]3.7 mmol/LNormal3.5-5.3FWVUMedicine Barnesville HospitalComment on above:Performed By: #### 7770221, 33519363, 29220600, 9921332, 1316726 #### [facility] [address], [place] [address]Haxkhce [Mass/Vol]7.7 g/dLNormal6.0-7.8[facility] Medical CenterComment on above:Performed By: #### 2197333, 18037600, 34415031, 3598063, 6760835 #### [facility] [address] [place] [address] 34836Vuxkmi [Moles/Vol]136 mmol/SLpgkqp023-891NxzjhaLakehealth Beachwood Medical CenterComment on above:Performed By: #### 2229326, 27782494, 91800996, 4439345, 5070023 #### [facility] [address], [place] [address]Slfp nitrogen [Mass/Vol]9 mg/dLNormal5-21[facility] Medical CenterComment on above:Performed By: #### 7067631, 15121291, 76965343, 9579185, 2442397 #### [facility] [address], [place] [address]Ayop nitrogen/Creatinine [Mass ratio]18 No DqchmWuwyux03-45 [facility] CenterComment on above:Performed By: #### 6145069, 00186904, 32766443, 1587926, 9788919 #### [facility] [address], [place] [address]Cwxztta 07-39-2154Kwqyccxzxytp Ql (Bld)Paulding County HospitalComment on above:Order Comment: Order Added by Discern Expert.Performed By: #### 5934992, 45888357, 57601052, 5330423, 8004112 #### [facility] [address], [place] [address]Nwhrfqsgzv Víctor (Bld) [Interp]See MorphologyMemorial Health System Marietta Memorial HospitalComment on above:Order Comment: Order Added by Discern Expert. Performed By: #### 3915410, 18642174, 69274806, 3885010, 3121264 #### [facility] [address], [place] [address]Lnwyhodyj Large LM Ql (Bld)[facility] County HospitalComment on above:Order Comment: Order Added by Discern Expert.Performed By: #### 2464738, 30838332, 99512347, 6743431, 6687453 #### [facility] [address], [place] [address]hOAEqf 18-58-7078RKI/1.73 sq M predicted among blacks MDRD (S/P/Bld) [Vol rate/Area]mL/min/{1.73_m2}Normal>=59[facility] Comment on above:Order Comment: Order added by Discern Expert.Result Comment: eGFR is race adjusted. AA=.Performed By: #### 8065427, 12517812, 14536959, 7736065, 2089637 #### [facility] [address], [place] [address]MBN/1.73 sq M predicted among non-blacks MDRD (S/P/Bld) [Vol rate/Area]mL/min/{1.73_m2}Normal>=59[facility] Medical CenterComment on above: Order Comment: Order added by Discern Expert.Result Comment: Chronic kidney disease could be indicated at eGFR's of less than 60 mL/min/1.73m2. Kidney failure is indicated at less than 15 mL/min/1.73m2.Performed By: #### 0367294, 20754664, 84904527, 4577436, 1409500 #### [facility] [address], [place] [address]Hvpvii Summary.on 75-51-6328Zohuii Summary.CODING DATE: 12/18/2017 FINAL [facility] STATUS: Home (Routine DC) PAYOR: Medical Dustin APC DESCRIPTION 5571 Level 1 Imaging with [...] By: Rachel Degroot Date Saved: 12/18/2017 12:08 pmNormalLakehealth Beachwood Medical CenterCreatinineon 57-71-3349Ofxaiyorvb [Mass/Vol]0.5 mg/dLNormal0.5-1.3FW[facility] Comment on above:Performed By: #### 87751498, 4819896 #### [facility] [address], [place] [address]jXXXyi 79-73-4696CPN/1.73 sq M predicted among blacks MDRD (S/P/Bld) [Vol rate/Area]mL/min/{1.73_m2}Normal>=59[facility] Comment on above:Order Comment: Order added by Discern Expert.Result Comment: eGFR is race adjusted. AA=.Performed By: #### 67978499, 4109579 #### [facility] [address], [place] [address]LOP/1.73 sq M predicted among non-blacks MDRD (S/P/Bld) [Vol rate/Area]mL/min/{1.73_m2}Normal>=59[facility] Medical CenterComment on above: Order Comment: Order added by Discern Expert.Result Comment: Chronic kidney disease could be indicated at eGFR's of less than 60 mL/min/1.73m2. Kidney failure is indicated at less than 15 mL/min/1.73m2.Performed By: #### 72588533, 7190748 #### [facility] [address], [place] [address]Ivly, Bloodon 03-13-7558Baij, BloodSpecimen Description .BLOOD Special Requests LT HAND Culture NO GROWTH 6 DAYS Report Status FINAL 11/08/2017[facility] HamiltonComment on above:Performed By: #### LIP, LACWB, IOCAL, PT, CDP, CHANDU, PTT, LIPR, CMPX ####[facility] [address] [place], [place] [address] Cult,Bloodon 03-03-4134Hdyu,BloodSpecimen Description .BLOOD Special Requests NOT REPORTED Culture NO GROWTH 6 DAYS Report Status FINAL 11/08/2017[facility] HamiltonComment on above:Performed By: #### LIP, LACWB, IOCAL, PT, CDP, CHANDU, PTT, LIPR, CMPX ####[facility] [address] [place] [address] Plan of Careon 40-44-1572GSM IP Note OR TranscriptionNormalCommunity Regional Medical Center Basic Metabolic Profon 11-03-2017(cont.)NormalCommunity Regional Medical Center Comment on above:Result Comment: Average GFR for 60-69 years old: 85 mL/min/1.73sq mChronic Kidney Disease: <60 mL/min/1.73sq mKidney failure: <15 mL/min/1.73sq meGFR calculated using average adult body mass. Additional eGFR calculator available at:http://www.[employer]/multiple_crcl_2012.htmPerformed By: #### LIP, LACWB, IOCAL, PT, CDP, CHANDU, PTT, LIPR, CMPX ####[facility] [address] [place] [address] Anion gap 3 molar conc9 mmol/LNormal9-17Community Regional Medical CenterComment on above:Performed By: #### LIP, LACWB, IOCAL, PT, CDP, CHANDU, PTT, LIPR, CMPX ####[facility] [address] [place] [address] Calcium mass conc8.3 mg/dLLow8.6-10.4 [facility] Medical CenterComment on above:Performed By: #### LIP, LACWB, IOCAL, PT, CDP, CHANDU, PTT, LIPR, CMPX ####[facility] [address] [place] [address] Chloride molar vtlz519 mmol/LWrjo93-911AhmexCommunity Regional Medical CenterComment on above:Performed By: #### LIP, LACWB, IOCAL, PT, CDP, CHANDU, PTT, LIPR, CMPX ####[facility] [address] [place] [address] CA4 molar conc26 mmol/ZMsupty99-61IiktjCommunity Regional Medical CenterComment on above:Performed By: #### LIP, LACWB, IOCAL, PT, CDP, CHANDU, PTT, LIPR, CMPX ####[facility] [address] [place] [address] Creatinine mass conc0.84 mg/dLNormal0.50-0.90[facility] Comment on above:Performed By: #### LIP, LACWB, IOCAL, PT, CDP, CHANDU, PTT, LIPR, CMPX ####[place] [address] GFR, Amer>60Normal>60Community Regional Medical CenterComment on above: Performed By: #### LIP, LACWB, IOCAL, PT, CDP, CHANDU, PTT, LIPR, CMPX ####[place] [address] GFR,non Amer>60 Normal>60[facility] Regional Medical CenterComment on above:Performed By: #### LIP, LACWB, IOCAL, PT, CDP, CHANDU, PTT, LIPR, CMPX ####[place] [address] Glucose mass ctbd900 mg/fZObcm70-44Xoalw Parnassus CampusComment on above:Performed By: #### LIP, LACWB, IOCAL, PT, CDP, CHANDU, PTT, LIPR, CMPX ####[place] [address] Potassium molar conc4.2 mmol/LNormal3.7-5.3Mlima city hospitaly Parnassus CampusComment on above:Performed By: #### LIP, LACWB, IOCAL, PT, CDP, CHANDU, PTT, LIPR, CMPX ####[address] [address] Sodium molar pkem209 mmol/FPaks436-072GutzzCommunity Regional Medical CenterComment on above:Performed By: #### LIP, LACWB, IOCAL, PT, CDP, CHANDU, PTT, LIPR, CMPX ####[facility] [address] [place] [address] Urea nitrogen mass conc25 mg/dLHigh8-23[facility] Medical CenterComment on above:Performed By: #### LIP, LACWB, IOCAL, PT, CDP, CHANDU, PTT, LIPR, CMPX ####[place] [address] BUN/CRE RatioNOT REPORTEDNormal9-20[facility] Regional Medical CenterComment on above:Performed By: #### LIP, LACWB, IOCAL, PT, CDP, CHANDU, PTT, LIPR, CMPX ####[place] [address] Staging:NOT REPORTEDNoalCommunity Regional Medical CenterComment on above: Performed By: #### LIP, LACWB, IOCAL, PT, CDP, CHANDU, PTT, LIPR, CMPX ####[place] [address] CBC with Diffon 80-79-6210Qjx. Basophil0.00 k/uLNormal0.0-0.2MChino Valley Medical Center Comment on above:Performed By: #### LIP, LACWB, IOCAL, PT, CDP, CHANDU, PTT, LIPR, CMPX ####[place] [address] Abs.Imm.Granulocyte0.33 k/uLHigh0.00-0.30[facility] Medical CenterComment on above:Performed By: #### LIP, LACWB, IOCAL, PT, CDP, CHANDU, PTT, LIPR, CMPX ####[place], [place] [phone].Neutrophil (Seg)13.12 k/uLHigh1.8-7.7[facility] Medical CenterComment on above: Performed By: #### LIP, LACWB, IOCAL, PT, CDP, CHANDU, PTT, LIPR, CMPX ####[address] [address] Basophils/100 WBC Auto (Bld)0 %Normal0-2MChino Valley Medical CenterComment on above:Performed By: #### LIP, LACWB, IOCAL, PT, CDP, CHANDU, PTT, LIPR, CMPX ####[address] [address] Eosinophils Auto #/vol (Bld)0.00 10*3/uL Normal0.0-0.4[facility] Medical CenterComment on above:Performed By: #### LIP, LACWB, IOCAL, PT, CDP, CHANDU, PTT, LIPR, CMPX ####[address] [address] Eosinophils/100 WBC Auto (Bld)0 %Low1-4 [facility] CenterComment on above:Performed By: #### LIP, LACWB, IOCAL, PT, CDP, CHANDU, PTT, LIPR, CMPX ####[place] [address] Immature granulocytes #/vol (Bld)2 %Jhxu0GwebeCommunity Regional Medical CenterComment on above:Performed By: #### LIP, LACWB, IOCAL, PT, CDP, CHANDU, PTT, LIPR, CMPX ####[address] [address] Lymphocytes Auto #/vol (Bld)1.49 10*3/uLNormal1.0-4.8[facility] Medical CenterComment on above:Performed By: #### LIP, LACWB, IOCAL, PT, CDP, CHANDU, PTT, LIPR, CMPX ####[address] [address] Lymphocytes/100 WBC Auto (Bld)9 %Arh01-81NsmghCommunity Regional Medical CenterComment on above:Performed By: #### LIP, LACWB, IOCAL, PT, CDP, CHANDU, PTT, LIPR, CMPX ####[facility] [address] [place] [address] Monocytes Auto #/vol (Bld)1.66 10*3/uLHigh0.1-0.8[facility] Medical CenterComment on above:Performed By: #### LIP, LACWB, IOCAL, PT, CDP, CHANDU, PTT, LIPR, CMPX ####[facility] [address] [place] [address] Monocytes/100 WBC Auto (Bld)10 %High1-7[facility] Regional Medical CenterComment on above:Performed By: #### LIP, LACWB, IOCAL, PT, CDP, CHANDU, PTT, LIPR, CMPX ####[place] [address] Morphology Interp Víctor (Bld)ANISOCYTOSIS PRESENTNormalCommunity Regional Medical CenterComment on above:Result Comment: INCREASED BANDS PRESENTTOXIC GRANULATION PRESENTPerformed By: #### LIP, LACWB, IOCAL, PT, CDP, CHANDU, PTT, LIPR, CMPX ####[address] [phone] (Seg)79 %Wlos78-69LqcdnCommunity Regional Medical Center Comment on above:Performed By: #### LIP, LACWB, IOCAL, PT, CDP, CHANDU, PTT, LIPR, CMPX ####[address] [address] Erythrocyte distribution width Auto Ratio (RBC)15.1 %High11.8-14.4Community Regional Medical CenterComment on above:Performed By: #### LIP, LACWB, IOCAL, PT, CDP, CHANDU, PTT, LIPR, CMPX ####[place], [place] [id number])[phone] Auto Volume Fraction (Bld)35.4 %Low36.3-47.1MChino Valley Medical CenterComment on above:Performed By: #### LIP, LACWB, IOCAL, PT, CDP, CHANDU, PTT, LIPR, CMPX ####[place] [address] Hemoglobin mass conc (Bld)10.6 g/dLLow11.9-15.1MChino Valley Medical CenterComment on above:Performed By: #### LIP, LACWB, IOCAL, PT, CDP, CHANDU, PTT, LIPR, CMPX ####[place] [address] MCH Auto Entitic mass (RBC)26.3 lrOrivdk43.2-33.5[facility] Medical CenterComment on above:Performed By: #### LIP, LACWB, IOCAL, PT, CDP, CHANDU, PTT, LIPR, CMPX ####[place] [phone] Auto mass conc (RBC)29.9 g/vUDhnztv21.4-34.8[facility] Medical CenterComment on above:Performed By: #### LIP, LACWB, IOCAL, PT, CDP, CHANDU, PTT, LIPR, CMPX ####[place] [address] MCV Auto Entitic volume (RBC)87.8 bXJkmivn84.6-102.9[facility] Medical CenterComment on above:Performed By: #### LIP, LACWB, IOCAL, PT, CDP, CHANDU, PTT, LIPR, CMPX ####[place], [place] [id number])[phone] Automated0.1 per 100 WBCHigh0.0[facility] Medical CenterComment on above:Performed By: #### LIP, LACWB, IOCAL, PT, CDP, CHANDU, PTT, LIPR, CMPX ####[place] [address] Platelet mean volume Auto Entitic volume (Bld)11.4 fLNormal8.1-13.5[facility] Medical CenterComment on above:Performed By: #### LIP, LACWB, IOCAL, PT, CDP, CHANDU, PTT, LIPR, CMPX ####[place], [place] [id number])[phone] Auto #/vol (Bld)267 10*3/rASbvcay886-067DpdeeCommunity Regional Medical CenterComment on above:Performed By: #### LIP, LACWB, IOCAL, PT, CDP, CHANDU, PTT, LIPR, CMPX ####[place], [place] [id number])[phone] Auto #/vol (Bld)4.03 10*6/uLNormal3.95-5.11[facility] CenterComment on above:Performed By: #### LIP, LACWB, IOCAL, PT, CDP, CHANDU, PTT, LIPR, CMPX ####[place], [place] [id number])[phone] Auto #/vol (Bld)16.6 10*3/uLHigh3.5-11.3MChino Valley Medical CenterComment on above:Performed By: #### LIP, LACWB, IOCAL, PT, CDP, CHANDU, PTT, LIPR, CMPX ####[place], [place] [id number])[phone] Diff PerformedNOT REPORTEDHermann Area District HospitalalCommunity Regional Medical CenterComment on above:Performed By: #### LIP, LACWB, IOCAL, PT, CDP, CHANDU, PTT, LIPR, CMPX ####[facility] [address] [place] [address] Platelets Auto #/vol (Bld)NOT REPORTEDKettering Health Hamilton Comment on above:Performed By: #### LIP, LACWB, IOCAL, PT, CDP, CHANDU, PTT, LIPR, CMPX ####[address] [address] RBC morphology finding Nom (Bld)NOT REPORTEDKettering Health Hamilton Comment on above:Performed By: #### LIP, LACWB, IOCAL, PT, CDP, CHANDU, PTT, LIPR, CMPX ####[address] [address] WBC MorphologyNOT REPORTEDKettering Health HamiltonComment on above: Performed By: #### LIP, LACWB, IOCAL, PT, CDP, CHANDU, PTT, LIPR, CMPX ####[place] [address] Abs. Basophil0.00 k/uL Normal0.0-0.2MChino Valley Medical CenterComment on above:Performed By: #### LIP, LACWB, IOCAL, PT, CDP, CHANDU, PTT, LIPR, CMPX ####[place] [address] Abs.Imm.Granulocyte0.16 k/uLNormal 0.00-0.30[facility] Medical CenterComment on above:Performed By: #### LIP, LACWB, IOCAL, PT, CDP, CHANDU, PTT, LIPR, CMPX ####[place] [address] Abs.Neutrophil (Seg)13.34 k/uLHigh1.8-7.7 [facility] Medical CenterComment on above:Performed By: #### LIP, LACWB, IOCAL, PT, CDP, CHANDU, PTT, LIPR, CMPX ####[address] [address] Basophils/100 WBC Auto (Bld)0 %Normal0-2[facility]arnassus CampusComment on above:Performed By: #### LIP, LACWB, IOCAL, PT, CDP, CHANDU, PTT, LIPR, CMPX ####[address] [address] Eosinophils Auto #/vol (Bld)0.00 10*3/uLNormal0.0-0.4[facility] Medical CenterComment on above:Performed By: #### LIP, LACWB, IOCAL, PT, CDP, CHANDU, PTT, LIPR, CMPX ####[address] [address] Eosinophils/100 WBC Auto (Bld)0 %Low1-4[facility] Medical CenterComment on above:Performed By: #### LIP, LACWB, IOCAL, PT, CDP, CHANDU, PTT, LIPR, CMPX ####[place] [address] Immature granulocytes #/vol (Bld)1 %Baof4QlbciCommunity Regional Medical CenterComment on above:Performed By: #### LIP, LACWB, IOCAL, PT, CDP, CHANDU, PTT, LIPR, CMPX ####[address] [address] Lymphocytes Auto #/vol (Bld)1.10 10*3/uLNormal1.0-4.8[facility] Medical CenterComment on above:Performed By: #### LIP, LACWB, IOCAL, PT, CDP, CHANDU, PTT, LIPR, CMPX ####[address] [address] Lymphocytes/100 WBC Auto (Bld)7 %Ebb27-05VcxcxCommunity Regional Medical CenterComment on above:Performed By: #### LIP, LACWB, IOCAL, PT, CDP, CHANDU, PTT, LIPR, CMPX ####[facility] [address] [place] [address] Monocytes Auto #/vol (Bld)1.10 10*3/uLHigh0.1-0.8[facility] Medical CenterComment on above:Performed By: #### LIP, LACWB, IOCAL, PT, CDP, CHANDU, PTT, LIPR, CMPX ####[facility] [address] [place] [address] Monocytes/100 WBC Auto (Bld)7 %Normal1-7[facility] Medical CenterComment on above:Performed By: #### LIP, LACWB, IOCAL, PT, CDP, CHANDU, PTT, LIPR, CMPX ####[facility] [address] [place] [address] Morphology Interp Víctor (Bld)INCREASED BANDS PRESENTNormalCommunity Regional Medical CenterComment on above:Result Comment: TOXIC GRANULATION PRESENTANISOCYTOSIS PRESENTPerformed By: #### LIP, LACWB, IOCAL, PT, CDP, CHANDU, PTT, LIPR, CMPX ####[place] [address] Neutrophil (Seg)85 %Ntxw61-97KehfnCommunity Regional Medical Center Comment on above:Performed By: #### LIP, LACWB, IOCAL, PT, CDP, CHANDU, PTT, LIPR, CMPX ####[facility] [address] [place] [address] Erythrocyte distribution width Auto Ratio (RBC)15.0 %High11.8-14.4[facility] Medical CenterComment on above:Performed By: #### LIP, LACWB, IOCAL, PT, CDP, CHANDU, PTT, LIPR, CMPX ####[facility] [address] [place] [address] Hematocrit Auto Volume Fraction (Bld)35.5 %Low36.3-47.1MChino Valley Medical CenterComment on above:Performed By: #### LIP, LACWB, IOCAL, PT, CDP, CHANDU, PTT, LIPR, CMPX ####[place] [address] Hemoglobin mass conc (Bld)10.8 g/dLLow11.9-15.1MChino Valley Medical CenterComment on above:Performed By: #### LIP, LACWB, IOCAL, PT, CDP, CHANDU, PTT, LIPR, CMPX ####[place] [address] MCH Auto Entitic mass (RBC)26.5 eoYjrvmv03.2-33.5[facility] Medical CenterComment on above:Performed By: #### LIP, LACWB, IOCAL, PT, CDP, CHANDU, PTT, LIPR, CMPX ####[place] [address] MCHC Auto mass conc (RBC)30.4 g/gXFtlfdy76.4-34.8[facility] Medical CenterComment on above:Performed By: #### LIP, LACWB, IOCAL, PT, CDP, CHANDU, PTT, LIPR, CMPX ####[place] [address] MCV Auto Entitic volume (RBC)87.2 dKHfjkpa05.6-102.9[facility] Medical CenterComment on above:Performed By: #### LIP, LACWB, IOCAL, PT, CDP, CHANDU, PTT, LIPR, CMPX ####[place], [place] [id number])[phone] Automated0.0 per 100 WBCNormal0.0[facility] Medical CenterComment on above:Performed By: #### LIP, LACWB, IOCAL, PT, CDP, CHANDU, PTT, LIPR, CMPX ####[facility] [address] [place] [address] Platelet mean volume Auto Entitic volume (Bld)11.7 fLNormal 8.1-13.5[facility] Medical CenterComment on above:Performed By: #### LIP, LACWB, IOCAL, PT, CDP, CHANDU, PTT, LIPR, CMPX ####[place] [address] Platelets Auto #/vol (Bld)260 10*3/uLNormal 138-453Community [facility] Medical CenterComment on above:Performed By: #### LIP, LACWB, IOCAL, PT, CDP, CHANDU, PTT, LIPR, CMPX ####[place] [address] RBC Auto #/vol (Bld)4.07 10*6/uLNormal3.95-5.11 [facility] Medical CenterComment on above:Performed By: #### LIP, LACWB, IOCAL, PT, CDP, CHANDU, PTT, LIPR, CMPX ####[place] [address] WBC Auto #/vol (Bld)15.7 10*3/uLHigh3.5-11.3 [facility] CenterComment on above:Performed By: #### LIP, LACWB, IOCAL, PT, CDP, CHANDU, PTT, LIPR, CMPX ####[place] [address] Auto Diff PerformedNOT REPORTEDKettering Health HamiltonComment on above:Performed By: #### LIP, LACWB, IOCAL, PT, CDP, CHANDU, PTT, LIPR, CMPX ####[facility] [address] [place] [address] Platelets Auto #/vol (Bld)NOT REPORTEDKettering Health HamiltonComment on above:Performed By: #### LIP, LACWB, IOCAL, PT, CDP, CHANDU, PTT, LIPR, CMPX ####[facility] [address] [place] [address] RBC morphology finding Nom (Bld)NOT REPORTEDKettering Health HamiltonComment on above:Performed By: #### LIP, LACWB, IOCAL, PT, CDP, CHANDU, PTT, LIPR, CMPX ####[facility] [address] [place] [address] WBC MorphologyNOT REPORTEDKettering Health HamiltonComment on above:Performed By: #### LIP, LACWB, IOCAL, PT, CDP, CHANDU, PTT, LIPR, CMPX ####[facility] [address] [place] [address] CT ABDOMEN PELVIS W IV CONTRASTon [id number] ABDOMEN PELVIS W IV CONTRAST EXAMINATION:CT OF [...] PROVIDED HISTORY: necrotic pancreatitis seen on previous [facility], and worsening ileus on [employer] PROVIDED [...] the pancreas4. Ascites and anasarca.Interpreted by:VIRGIL Woodsigned by:Abhisehk Cat MD11/03/inal resultNormalCommunity Regional Medical Center Calcium, Ionicon 68-64-8249Hwuilxw mass conc1.21 mmol/LNormal1.13-1.33[facility] Regional Medical CenterComment on above:Performed By: #### LIP, LACWB, IOCAL, PT, CDP, CHANDU, PTT, LIPR, CMPX ####[employer] [place] [id number] Comp Metabolic Pr/rfx MGon 11-03-2017(cont.)NormalCommunity Regional Medical CenterComment on above:Result Comment: Average GFR for 60-69 years old: 85 mL/min/1.73sq mChronic Kidney Disease: <60 mL/min/1.73sq mKidney failure: <15 mL/min/1.73sq meGFR calculated using average adult body mass. Ad ditional eGFR calculator available at:http://www.[employer].CL3VER/multiple_crcl_2012.htmPerformed By: #### LIP, LACWB, IOCAL, PT, CDP, CHANDU, PTT, LIPR, CMPX ####[employer] [place] [address] Albumin mass conc2.3 g/dLLow3.5-5.2[facility]arnassus CampusComment on above:Performed By: #### LIP, LACWB, IOCAL, PT, CDP, CHANDU, PTT, LIPR, CMPX ####[facility] [address] [place] [address] Albumin/Globulin mass ratio0.7 {ratio}Low1.0-2.5Community Regional Medical CenterComment on above:Performed By: #### LIP, LACWB, IOCAL, PT, CDP, CHANDU, PTT, LIPR, CMPX ####[place] [address] [place] [address] Alkaline Phos84 U/AGpaivr07-612PcwdnCommunity Regional Medical CenterComment on above:Performed By: #### LIP, LACWB, IOCAL, PT, CDP, CHANDU, PTT, LIPR, CMPX ####[place] [address] [place] [address] ALT enzyme act/vol44 U/LHigh5-33Community Regional Medical CenterComment on above: Performed By: #### LIP, LACWB, IOCAL, PT, CDP, CHANDU, PTT, LIPR, CMPX ####[address] [address] Anion gap 3 molar conc12 mmol/LNormal9-17[facility] Regional Medical CenterComment on above:Performed By: #### LIP, LACWB, IOCAL, PT, CDP, CHANDU, PTT, LIPR, CMPX ####[place] [address] [place] [address] AST enzyme act/vol43 U/LHigh<32Community Regional Medical CenterComment on above:Performed By: #### LIP, LACWB, IOCAL, PT, CDP, CHANDU, PTT, LIPR, CMPX ####[place] [address] [place] [address] Bilirubin Ql (U)0.51 mg/dLNormal0.3-1.2MChino Valley Medical CenterComment on above:Performed By: #### LIP, LACWB, IOCAL, PT, CDP, CHANDU, PTT, LIPR, CMPX ####[facility] [address] [place] [address] Calcium mass conc8.3 mg/dLLow8.6-10.4[facility] Regional Medical CenterComment on above:Performed By: #### LIP, LACWB, IOCAL, PT, CDP, CHANDU, PTT, LIPR, CMPX ####[facility] [address] [place] [address] Chloride molar hdzq753 mmol/EVqfqap62-841UeazpCommunity Regional Medical CenterComment on above:Performed By: #### LIP, LACWB, IOCAL, PT, CDP, CHANDU, PTT, LIPR, CMPX ####[facility] [address] [place] [address] MB2 molar conc 23 mmol/ICgeeig66-10CeqefCommunity Regional Medical CenterComment on above:Performed By: #### LIP, LACWB, IOCAL, PT, CDP, CHANDU, PTT, LIPR, CMPX ####[facility] [address] [place] [phone] mass conc0.90 mg/dLNormal0.50-0.90Community Regional Medical CenterComment on above:Performed By: #### LIP, LACWB, IOCAL, PT, CDP, CHANDU, PTT, LIPR, CMPX ####[facility] [address] [place] [phone], Amer>60 Normal>60Community Regional Medical CenterComment on above:Performed By: #### LIP, LACWB, IOCAL, PT, CDP, CHANDU, PTT, LIPR, CMPX ####[facility] [address] [place] [address] GFR,non Amer>60Normal>60Community Regional Medical CenterComment on above:Performed By: #### LIP, LACWB, IOCAL, PT, CDP, CHANDU, PTT, LIPR, CMPX ####[facility] [address] [place] [address] Glucose mass tfhx353 mg/hQHzue24-07UqazaChino Valley Medical CenterComment on above:Performed By: #### LIP, LACWB, IOCAL, PT, CDP, CHANDU, PTT, LIPR, CMPX ####[facility] [address] [place] [address] Potassium molar conc3.8 mmol/LNormal3.7-5.3MChino Valley Medical Center Comment on above:Performed By: #### LIP, LACWB, IOCAL, PT, CDP, CHANDU, PTT, LIPR, CMPX ####[facility] [address] [place] [address] Protein mass conc5.7 g/dLLow6.4-8.3MChino Valley Medical CenterComment on above: Performed By: #### LIP, LACWB, IOCAL, PT, CDP, CHANDU, PTT, LIPR, CMPX ####[facility] [address] [place] [address] Sodium molar fpdw980 mmol/PQdnxcz579-632FbcgtCommunity Regional Medical CenterComment on above:Performed By: #### LIP, LACWB, IOCAL, PT, CDP, CHANDU, PTT, LIPR, CMPX ####[facility] [address] [place] [address] Urea nitrogen mass conc 26 mg/dLHigh8-23Community Regional Medical CenterComment on above:Performed By: #### LIP, LACWB, IOCAL, PT, CDP, CHANDU, PTT, LIPR, CMPX ####[place] [address] BUN/CRE RatioNOT REPORTEDNormal9-20Community Regional Medical CenterComment on above:Performed By: #### LIP, LACWB, IOCAL, PT, CDP, CHANDU, PTT, LIPR, CMPX ####[facility] [address] [place] [address] Staging:NOT REPORTEDKettering Health Hamilton Comment on above:Performed By: #### LIP, LACWB, IOCAL, PT, CDP, CHANDU, PTT, LIPR, CMPX ####[facility] [address] [place] [address] Cult,Urine,Cathon [id number],Urine,CathSpecimen Description .CATHETERIZED URINE Special Requests NOT REPORTED Culture NO GROWTH Report Status FINAL 11/02/2017[facility]tering Health HamiltonComment on above:Performed By: #### LIP, LACWB, IOCAL, PT, CDP, CHANDU, PTT, LIPR, CMPX ####[facility] [address] [place] [address] Discharge Summaryon [id number] IP Note OR TranscriptionNormalMercy Parnassus CampusPlan of Careon [id number] IP Note OR TranscriptionNormalCommunity Regional Medical CenterHI IP Note OR TranscriptionNormGrand Lake Joint Township District Memorial HospitalProgress Noteon [id number] IP Note OR TranscriptionNormalCommunity Regional Medical CenterHIM IP Note OR TranscriptionNormalCommunity Regional Medical CenterHIM IP Note OR TranscriptionNormalCommunity Regional Medical Center HIM IP Note OR TranscriptionNoVeterans Health AdministrationXR ABDOMEN (KUB) (SINGLE AP VIEW)on [id number] ABDOMEN (KUB) (SINGLE AP VIEW) EXAMINATION:SINGLE SUPINE XRAY VIEW(S) OF THE ABDOMEN11/03/2017 8:42 amCOMPARISON:CT abdomen pelvis from 10/30/2017HISTORY:ORDERING SYSTEM PROVIDED HISTORY: reeval ileusTECHNOLOGIST PROVIDED HISTORY:reeval azmbf53-irlv-flc female; re-evaluate ileusFINDINGS:Portable supine view of the abdomen.Enteric tube traverses the GE junction with distal tip overlying the midmidline abdomen, likely within the body of the stomach. Blunting of the leftcostophrenic angle may represent chronic pleural thickeningversus smallleft-sided pleural effusion. Stable left basilar opacity, atelectasis,infiltrate, or mild scarring.library monitor leads overlie the abdomen. Mild diffuse [...] nterpreted by:VIRGIL Gutierrezigned by:Braeden Chavez MD11/03/inal result NormalCommunity Regional Medical CenterAPTTon [id number] Coag time (Bld)27.1 gDvhsoz03.5-30.5[facility] Medical CenterComment on above:Performed By: #### LIP, LACWB, IOCAL, PT, CDP, CHANDU, PTT, LIPR, CMPX ####[employer] [place] [id number] Amylaseon 31-66-9557Xibwezn enzyme act/spo649 U/KIepm66-945MixitCommunity Regional Medical CenterComment on above: Performed By: #### LIP, LACWB, IOCAL, PT, CDP, CHANDU, PTT, LIPR, CMPX ####[place], [place] [id number])[phone] with Diffon [id number]. Basophil0.00 k/uLNormal0.00-0.20[facility] Comment on above:Performed By: #### LIP, LACWB, IOCAL, PT, CDP, CHANDU, PTT, LIPR, CMPX ####[facility] [address] [place] [address] Abs.Imm.Granulocyte0.14 k/uLNormal0.00-0.30[facility] Comment on above:Performed By: #### LIP, LACWB, IOCAL, PT, CDP, CHANDU, PTT, LIPR, CMPX ####[place] [address] Abs.Neutrophil (Seg)11.01 k/uLHigh1.50-8.10[facility] Comment on above:Performed By: #### LIP, LACWB, IOCAL, PT, CDP, CHANDU, PTT, LIPR, CMPX ####[place] [address] Basophils/100 WBC Auto (Bld)0 %Normal0-2MercJohn C. Fremont HospitalComment on above:Performed By: #### LIP, LACWB, IOCAL, PT, CDP, CHANDU, PTT, LIPR, CMPX ####[place] [address] Eosinophils Auto #/vol (Bld)0.00 10*3/uLNormal0.00-0.44[facility] Comment on above:Performed By: #### LIP, LACWB, IOCAL, PT, CDP, CHANDU, PTT, LIPR, CMPX ####[facility] [address] [place] [address] Eosinophils/100 WBC Auto (Bld)0 %Low1-4Community Regional Medical CenterComment on above:Performed By: #### LIP, LACWB, IOCAL, PT, CDP, CHANDU, PTT, LIPR, CMPX ####[facility] [address] [place] [address] Immature granulocytes #/vol (Bld)1 %Vfqs1ZpeebCommunity Regional Medical CenterComment on above:Performed By: #### LIP, LACWB, IOCAL, PT, CDP, CHANDU, PTT, LIPR, CMPX ####[facility] [address] [place] [address] Lymphocytes Auto #/vol (Bld)1.09 10*3/uLLow1.10-3.70[facility] Medical CenterComment on above:Performed By: #### LIP, LACWB, IOCAL, PT, CDP, CHANDU, PTT, LIPR, CMPX ####[facility] [address] [place] [address] Lymphocytes/100 WBC Auto (Bld)8 %Oqn83-05WtalpCommunity Regional Medical CenterComment on above:Performed By: #### LIP, LACWB, IOCAL, PT, CDP, CHANDU, PTT, LIPR, CMPX ####[facility] [address] [place] [address] Monocytes Auto #/vol (Bld)1.36 10*3/uLHigh0.10-1.20[facility] Medical CenterComment on above:Performed By: #### LIP, LACWB, IOCAL, PT, CDP, CHANDU, PTT, LIPR, CMPX ####[facility] [address]oupdy[address] [place] [address] Monocytes/100 WBC Auto (Bld)10 %Normal3-12Community Regional Medical CenterComment on above: Performed By: #### LIP, LACWB, IOCAL, PT, CDP, CHANDU, PTT, LIPR, CMPX ####[facility] [address] [place] [address] Morphology Interp Víctor (Bld)ANISOCYTOSIS PRESENTNormalCommunity Regional Medical CenterComment on above: Result Comment: TOXIC GRANULATION PRESENTPerformed By: #### LIP, LACWB, IOCAL, PT, CDP, CHANDU, PTT, LIPR, CMPX ####[facility] [address] [place] [address] Neutrophil (Seg)81 %Lzlv89-44JpmeeCommunity Regional Medical Center Comment on above:Performed By: #### LIP, LACWB, IOCAL, PT, CDP, CHANDU, PTT, LIPR, CMPX ####[place] [address] NRBC Automated0.0 per 100 WBCNormal0.0Community Regional Medical CenterComment on above:Performed By: #### LIP, LACWB, IOCAL, PT, CDP, CHANDU, PTT, LIPR, CMPX ####[place] [address] Platelet mean volume Auto Entitic volume (Bld)11.5 fLNormal8.1-13.5Community Regional Medical CenterComment on above:Performed By: #### LIP, LACWB, IOCAL, PT, CDP, CHANDU, PTT, LIPR, CMPX ####[place] [address] Platelets Auto #/vol (Bld)231 10*3/bSEyoqpt124-108LldegCommunity Regional Medical CenterComment on above:Performed By: #### LIP, LACWB, IOCAL, PT, CDP, CHANDU, PTT, LIPR, CMPX ####[place] [address] WBC Auto #/vol (Bld)13.6 10*3/uLHigh3.5-11.3MChino Valley Medical CenterComment on above:Performed By: #### LIP, LACWB, IOCAL, PT, CDP, CHANDU, PTT, LIPR, CMPX ####[place], [place] [id number])[phone] distribution width Auto Ratio (RBC)14.8 %High11.8-14.4Community Regional Medical CenterComment on above:Performed By: #### LIP, LACWB, IOCAL, PT, CDP, CHANDU, PTT, LIPR, CMPX ####[place] [address] Hematocrit Auto Volume Fraction (Bld)34.5 %Low36.3-47.1MChino Valley Medical CenterComment on above:Performed By: #### LIP, LACWB, IOCAL, PT, CDP, CHANDU, PTT, LIPR, CMPX ####[place] [address] Hemoglobin mass conc (Bld)10.3 g/dLLow11.9-15.1MChino Valley Medical Center Comment on above:Performed By: #### LIP, LACWB, IOCAL, PT, CDP, CHANDU, PTT, LIPR, CMPX ####[place] [address] MCH Auto Entitic mass (RBC)26.3 vnIxgvku23.2-33.5Community [facility] Medical CenterComment on above:Performed By: #### LIP, LACWB, IOCAL, PT, CDP, CHANDU, PTT, LIPR, CMPX ####[place] [address] MCHC Auto mass conc (RBC)29.9 g/xINysnin49.4-34.8[facility] Medical CenterComment on above:Performed By: #### LIP, LACWB, IOCAL, PT, CDP, CHANDU, PTT, LIPR, CMPX ####[facility] [address] [place] [address] MCV Auto Entitic volume (RBC)88.0 qZErwasg30.6-102.9[facility] Comment on above:Performed By: #### LIP, LACWB, IOCAL, PT, CDP, CHANDU, PTT, LIPR, CMPX ####[place] [address] RBC Auto #/vol (Bld)3.92 10*6/uLLow3.95-5.11[facility] Medical CenterComment on above:Performed By: #### LIP, LACWB, IOCAL, PT, CDP, CHANDU, PTT, LIPR, CMPX ####[place] [address] Auto Diff PerformedNOT REPORTEDKettering Health HamiltonComment on above: Performed By: #### LIP, LACWB, IOCAL, PT, CDP, CHANDU, PTT, LIPR, CMPX ####[place] [address] Platelets Auto #/vol (Bld)NOT REPORTEDKettering Health HamiltonComment on above: Performed By: #### LIP, LACWB, IOCAL, PT, CDP, CHANDU, PTT, LIPR, CMPX ####[facility] [address] [place] [address] RBC morphology finding Nom (Bld)NOT REPORTEDKettering Health HamiltonComment on above: Performed By: #### LIP, LACWB, IOCAL, PT, CDP, CHANDU, PTT, LIPR, CMPX ####[address] [address] WBC MorphologyNOT REPORTEDKettering Health HamiltonComment on above:Performed By: #### LIP, LACWB, IOCAL, PT, CDP, CHANDU, PTT, LIPR, CMPX ####[place] [address] Abs. Basophil0.00 k/uLNormal0.0-0.2MChino Valley Medical CenterComment on above:Performed By: #### LIP, LACWB, IOCAL, PT, CDP, CHANDU, PTT, LIPR, CMPX ####[place] [address] Abs.Imm.Granulocyte0.12 k/uLNormal0.00-0.30[facility] CenterComment on above:Performed By: #### LIP, LACWB, IOCAL, PT, CDP, CHANDU, PTT, LIPR, CMPX ####[place] [address] Abs.Neutrophil (Seg)9.24 k/uLHigh1.8-7.7[facility] CenterComment on above:Performed By: #### LIP, LACWB, IOCAL, PT, CDP, CHANDU, PTT, LIPR, CMPX ####[place] [address] Basophils/100 WBC Auto (Bld)0 %Normal0-2MChino Valley Medical CenterComment on above:Performed By: #### LIP, LACWB, IOCAL, PT, CDP, CHANDU, PTT, LIPR, CMPX ####[place] [address] Eosinophils Auto #/vol (Bld)0.00 10*3/uLNormal0.0-0.4[facility] CenterComment on above:Performed By: #### LIP, LACWB, IOCAL, PT, CDP, CHANDU, PTT, LIPR, CMPX ####[facility] [place] [address] Eosinophils/100 WBC Auto (Bld)0 %Low1-4[facility] CenterComment on above:Performed By: #### LIP, LACWB, IOCAL, PT, CDP, CHANDU, PTT, LIPR, CMPX ####[address] [address] Immature granulocytes #/vol (Bld)1 %Lssj2TbsmkCommunity Regional Medical CenterComment on above:Performed By: #### LIP, LACWB, IOCAL, PT, CDP, CHANDU, PTT, LIPR, CMPX ####[place] [address] Lymphocytes Auto #/vol (Bld)1.05 10*3/uLNormal1.0-4.8[facility] CenterComment on above:Performed By: #### LIP, LACWB, IOCAL, PT, CDP, CHANDU, PTT, LIPR, CMPX ####[address] [address] Lymphocytes/100 WBC Auto (Bld)9 %Cvs03-04TskagCommunity Regional Medical CenterComment on above:Performed By: #### LIP, LACWB, IOCAL, PT, CDP, CHANDU, PTT, LIPR, CMPX ####[address] [address] Monocytes Auto #/vol (Bld)1.29 10*3/uLHigh0.1-0.8[facility] CenterComment on above:Performed By: #### LIP, LACWB, IOCAL, PT, CDP, CHANDU, PTT, LIPR, CMPX ####[address] [address] Monocytes/100 WBC Auto (Bld)11 %High1-7Community Regional Medical CenterComment on above:Performed By: #### LIP, LACWB, IOCAL, PT, CDP, CHANDU, PTT, LIPR, CMPX ####[place] [address] Morphology Interp Víctor (Bld)ANISOCYTOSIS PRESENTNormalCommunity Regional Medical CenterComment on above:Performed By: #### LIP, LACWB, IOCAL, PT, CDP, CHANDU, PTT, LIPR, CMPX ####[place] [address] Neutrophil (Seg)79 %Uejz29-98TomfrCommunity Regional Medical Center Comment on above:Performed By: #### LIP, LACWB, IOCAL, PT, CDP, CHANDU, PTT, LIPR, CMPX ####[place] [address] NRBC Automated0.0 per 100 WBCNormal0.0Community Regional Medical CenterComment on above:Performed By: #### LIP, LACWB, IOCAL, PT, CDP, CHANDU, PTT, LIPR, CMPX ####[place] [address] Platelet mean volume Auto Entitic volume (Bld)11.8 fLNormal8.1-13.5Community Regional Medical CenterComment on above:Performed By: #### LIP, LACWB, IOCAL, PT, CDP, CHANDU, PTT, LIPR, CMPX ####[place] [address] Platelets Auto #/vol (Bld)201 10*3/rNKeiaod168-250TweupCommunity Regional Medical CenterComment on above:Performed By: #### LIP, LACWB, IOCAL, PT, CDP, CHANDU, PTT, LIPR, CMPX ####[place] [address] WBC Auto #/vol (Bld)11.7 10*3/uLHigh3.5-11.3MChino Valley Medical CenterComment on above:Performed By: #### LIP, LACWB, IOCAL, PT, CDP, CHANDU, PTT, LIPR, CMPX ####[place], [place] [phone] distribution width Auto Ratio (RBC)14.7 %High11.8-14.4Community Regional Medical CenterComment on above:Performed By: #### LIP, LACWB, IOCAL, PT, CDP, CHANDU, PTT, LIPR, CMPX ####[place] [address] Hematocrit Auto Volume Fraction (Bld)33.3 %Low36.3-47.1MChino Valley Medical CenterComment on above:Performed By: #### LIP, LACWB, IOCAL, PT, CDP, CHANDU, PTT, LIPR, CMPX ####[place] [address] Hemoglobin mass conc (Bld)10.3 g/dLLow11.9-15.1MChino Valley Medical Center Comment on above:Performed By: #### LIP, LACWB, IOCAL, PT, CDP, CHANDU, PTT, LIPR, CMPX ####[place], [place] [address])[phone] Auto Entitic mass (RBC)27.0 cnDwjvte69.2-33.5Community Regional Medical CenterComment on above:Performed By: #### LIP, LACWB, IOCAL, PT, CDP, CHANDU, PTT, LIPR, CMPX ####[place] [address] MCHC Auto mass conc (RBC)30.9 g/mGQtgzup86.4-34.8Community Regional Medical CenterComment on above:Performed By: #### LIP, LACWB, IOCAL, PT, CDP, CHANDU, PTT, LIPR, CMPX ####[facility] A[address]jdujyzqar4891 [place] [address] MCV Auto Entitic volume (RBC)87.4 zRVrqaew41.6-102.9[facility] Comment on above:Performed By: #### LIP, LACWB, IOCAL, PT, CDP, CHANDU, PTT, LIPR, CMPX ####[place] [address] RBC Auto #/vol (Bld)3.81 10*6/uLLow3.95-5.11Community Regional Medical CenterComment on above:Performed By: #### LIP, LACWB, IOCAL, PT, CDP, CHANDU, PTT, LIPR, CMPX ####[place] [address] Auto Diff PerformedNOT REPORTEDKettering Health HamiltonComment on above: Performed By: #### LIP, LACWB, IOCAL, PT, CDP, CHANDU, PTT, LIPR, CMPX ####[place] [address] Platelets Auto #/vol (Bld)NOT REPORTEDKettering Health HamiltonComment on above: Performed By: #### LIP, LACWB, IOCAL, PT, CDP, CHANDU, PTT, LIPR, CMPX ####[facility] [address] [place] [address] RBC morphology finding Nom (Bld)NOT REPORTEDKettering Health HamiltonComment on above: Performed By: #### LIP, LACWB, IOCAL, PT, CDP, CHANDU, PTT, LIPR, CMPX ####[facility] [address] [place] [address] WBC MorphologyNOT REPORTEDKettering Health HamiltonComment on above:Performed By: #### LIP, LACWB, IOCAL, PT, CDP, CHANDU, PTT, LIPR, CMPX ####[facility] Cdtsdglcfzar7293 [place] [address] Calcium, Ionicon 07-40-1058Ezzpfdh mass conc1.08 mmol/LLow1.13-1.33Community Regional Medical CenterComment on above: Performed By: #### LIP, LACWB, IOCAL, PT, CDP, CHANDU, PTT, LIPR, CMPX ####[facility] [address]uf[address]onscvi[address] [place] [address] Comp Metabolic Pr/rfx MG on 11-02-2017(cont.)NormalCommunity Regional Medical CenterComment on above: Result Comment: Average GFR for 60-69 years old: 85 mL/min/1.73sq mChronic Kidney Disease: <60 mL/min/1.73sq mKidney failure: <15 mL/min/1.73sq meGFR calculated using average adult body mass. Additional eGFR calculator available at:http://www.[employer]/multiple_crcl_2012.htmPerformed By: #### LIP, LACWB, IOCAL, PT, CDP, CHANDU, PTT, LIPR, CMPX ####[facility] [address]rf[address] [place] [address] Albumin mass conc2.5 g/dLLow3.5-5.2MChino Valley Medical CenterComment on above:Performed By: #### LIP, LACWB, IOCAL, PT, CDP, CHANDU, PTT, LIPR, CMPX ####[facility] [address]dsmcrmmqzdx9758 [place] [address] Albumin/Globulin mass ratio0.7 {ratio}Low1.0-2.5Community Regional Medical CenterComment on above:Performed By: #### LIP, LACWB, IOCAL, PT, CDP, CHANDU, PTT, LIPR, CMPX ####[facility] [address] [place] [address] Alkaline Phos74 U/KMixnwm87-357WiqmyCommunity Regional Medical CenterComment on above:Performed By: #### LIP, LACWB, IOCAL, PT, CDP, CHANDU, PTT, LIPR, CMPX ####[facility] Cfacdyndnntq0519 [place] [address] ALT enzyme act/vol63 U/LHigh5-33Community Regional Medical CenterComment on above: Performed By: #### LIP, LACWB, IOCAL, PT, CDP, CHANDU, PTT, LIPR, CMPX ####[facility] Ncwcjgrctylc1725 [place] [address] Anion gap 3 molar conc14 mmol/LNormal9-17Community Regional Medical CenterComment on above:Performed By: #### LIP, LACWB, IOCAL, PT, CDP, CHANDU, PTT, LIPR, CMPX ####[facility] [address]wt[address]razhq8761 [place] [address] AST enzyme act/vol33 U/LHigh<32Community Regional Medical CenterComment on above:Performed By: #### LIP, LACWB, IOCAL, PT, CDP, CHANDU, PTT, LIPR, CMPX ####[facility] Kjgqrwwmsigt8633 [place] [address] Bilirubin Ql (U)0.80 mg/dLNormal0.3-1.2MChino Valley Medical CenterComment on above:Performed By: #### LIP, LACWB, IOCAL, PT, CDP, CHANDU, PTT, LIPR, CMPX ####[facility] Miyfifukhnrs7038 [place] [address] Calcium mass conc8.1 mg/dLLow8.6-10.4Community Regional Medical CenterComment on above:Performed By: #### LIP, LACWB, IOCAL, PT, CDP, CHANDU, PTT, LIPR, CMPX ####[facility] Hpdplbtcjbys2058 [place] [address] Chloride molar snej457 mmol/NQvkxuy18-425JjgrbKaiser Martinez Medical CenterComment on above:Performed By: #### LIP, LACWB, IOCAL, PT, CDP, CHANDU, PTT, LIPR, CMPX ####[facility] [address] [place] [address] BF3 molar conc 22 mmol/QIjvbbm79-78RkotyCommunity Regional Medical CenterComment on above:Performed By: #### LIP, LACWB, IOCAL, PT, CDP, CHANDU, PTT, LIPR, CMPX ####[facility] [address] [place] [address] Creatinine mass conc0.85 mg/dLNormal0.50-0.90Community Regional Medical CenterComment on above:Performed By: #### LIP, LACWB, IOCAL, PT, CDP, CHANDU, PTT, LIPR, CMPX ####[place] [address] GFR, Amer>60 Normal>60MerKaiser Martinez Medical CenterComment on above:Performed By: #### LIP, LACWB, IOCAL, PT, CDP, CHANDU, PTT, LIPR, CMPX ####[place] [address] GFR,non Amer>60Normal>60MerKaiser Martinez Medical CenterComment on above:Performed By: #### LIP, LACWB, IOCAL, PT, CDP, CHANDU, PTT, LIPR, CMPX ####[facility] Ibhtpu[address]bi[address] [place] [address] Glucose mass xnak964 mg/vGWwkv29-26Lvbqn Parnassus CampusComment on above:Performed By: #### LIP, LACWB, IOCAL, PT, CDP, CHANDU, PTT, LIPR, CMPX ####[address] [address] Potassium molar conc3.8 mmol/LNormal3.7-5.3MercAdventHealth North PinellasLanham Medical Center Comment on above:Performed By: #### LIP, LACWB, IOCAL, PT, CDP, CHANDU, PTT, LIPR, CMPX ####[facility] [address]ivypqbaiahe2476 [place] [address] Protein mass conc5.9 g/dLLow6.4-8.3MChino Valley Medical CenterComment on above: Performed By: #### LIP, LACWB, IOCAL, PT, CDP, CHANDU, PTT, LIPR, CMPX ####[facility] [address]ddlywhppjzc7247 [place] [address] Sodium molar ubpw037 mmol/VDrwuvs582-200BuociCommunity Regional Medical CenterComment on above:Performed By: #### LIP, LACWB, IOCAL, PT, CDP, CHANDU, PTT, LIPR, CMPX ####[place] [address] Urea nitrogen mass conc 17 mg/dLNormal8-23Community Regional Medical CenterComment on above:Performed By: #### LIP, LACWB, IOCAL, PT, CDP, CHANDU, PTT, LIPR, CMPX ####[facility] [address] [place] [address] BUN/CRE RatioNOT REPORTEDNormal9-20Community Regional Medical CenterComment on above:Performed By: #### LIP, LACWB, IOCAL, PT, CDP, CHANDU, PTT, LIPR, CMPX ####[facility] Dywqnobaczbb3828 [place], [place] [phone]:NOT REPORTEDNormalCommunity Regional Medical Center Comment on above:Performed By: #### LIP, LACWB, IOCAL, PT, CDP, CHANDU, PTT, LIPR, CMPX ####[facility] Bvrvyuawjiht2234 [place] [address] (cont.) NormalCommunity Regional Medical CenterComment on above:Result Comment: Average GFR for 60-69 years old: 85 mL/min/1.73sq mChronic Kidney Disease: <60 mL /min/1.73sq mKidney failure: <15 mL/min/1.73sq meGFR calculated using average adult body mass. Additional eGFR calculator available at:http://www.[employer]/multiple_crcl_2012.htmPerformed By: #### LIP, LACWB, IOCAL, PT, CDP, CHANDU, PTT, LIPR, CMPX ####[facility] [address]tcfxareybdk1404 [place] [address] Albumin mass conc2.4 g/dLLow3.5-5.2MChino Valley Medical CenterComment on above:Performed By: #### LIP, LACWB, IOCAL, PT, CDP, CHANDU, PTT, LIPR, CMPX ####[place] [address] Albumin/Globulin mass ratio0.7 {ratio}Low1.0-2.5Community Regional Medical CenterComment on above:Performed By: #### LIP, LACWB, IOCAL, PT, CDP, CHANDU, PTT, LIPR, CMPX ####[place] [address] Alkaline Phos73 U/RPmqjjq72-403VgkabCommunity Regional Medical CenterComment on above:Performed By: #### LIP, LACWB, IOCAL, PT, CDP, CHANDU, PTT, LIPR, CMPX ####[address] [place] [address] ALT enzyme act/vol71 U/LHigh5-33[facility] Medical CenterComment on above: Performed By: #### LIP, LACWB, IOCAL, PT, CDP, CHANDU, PTT, LIPR, CMPX ####[place] [address] Anion gap 3 molar conc9 mmol/LNormal9-17Community Regional Medical CenterComment on above:Performed By: #### LIP, LACWB, IOCAL, PT, CDP, CHANDU, PTT, LIPR, CMPX ####[facility] [address] [place] [address] AST enzyme act/vol34 U/LHigh<32Community Regional Medical CenterComment on above:Performed By: #### LIP, LACWB, IOCAL, PT, CDP, CHANDU, PTT, LIPR, CMPX ####[facility] [address] [place] [address] Bilirubin Ql (U)0.87 mg/dLNormal0.3-1.2MChino Valley Medical CenterComment on above:Performed By: #### LIP, LACWB, IOCAL, PT, CDP, CHANDU, PTT, LIPR, CMPX ####[address] [address] Calcium mass conc7.8 mg/dLLow8.6-10.4Community Regional Medical CenterComment on above:Performed By: #### LIP, LACWB, IOCAL, PT, CDP, CHANDU, PTT, LIPR, CMPX ####[place] [address] Chloride molar lfny147 mmol/ARagl91-135FcrfkCommunity Regional Medical CenterComment on above:Performed By: #### LIP, LACWB, IOCAL, PT, CDP, CHANDU, PTT, LIPR, CMPX ####[facility] [address] [place] [address] BF4 molar conc 22 mmol/UYlowpf78-26EzvwtCommunity Regional Medical CenterComment on above:Performed By: #### LIP, LACWB, IOCAL, PT, CDP, CHANDU, PTT, LIPR, CMPX ####[address] [address] Creatinine mass conc0.77 mg/dLNormal0.50-0.90MerKaiser Martinez Medical CenterComment on above:Performed By: #### LIP, LACWB, IOCAL, PT, CDP, CHANDU, PTT, LIPR, CMPX ####[facility] [address]omvpdkd[address] [place] [address] GFR, Amer>60 Normal>60MerKaiser Martinez Medical CenterComment on above:Performed By: #### LIP, LACWB, IOCAL, PT, CDP, CHANDU, PTT, LIPR, CMPX ####[facility] [address]tjuezggrw[address]011 [place] [address] GFR,non Amer>60Normal>60Community Regional Medical CenterComment on above:Performed By: #### LIP, LACWB, IOCAL, PT, CDP, CHANDU, PTT, LIPR, CMPX ####[facility] [address] [place] [address] Glucose mass jddf193 mg/pGMsif22-63Jshti [facility]arnass[facility] CampusComment on above:Performed By: #### LIP, LACWB, IOCAL, PT, CDP, CHANDU, PTT, LIPR, CMPX ####[address] [place] [address] Potassium molar conc3.7 mmol/LNormal3.7-5.3[facility] Comment on above:Performed By: #### LIP, LACWB, IOCAL, PT, CDP, CHANDU, PTT, LIPR, CMPX ####[facility] Swhqqzaclmgi5305 [place] [address] Protein mass conc5.7 g/dLLow6.4-8.3Mercy Parnassus CampusComment on above: Performed By: #### LIP, LACWB, IOCAL, PT, CDP, CHANDU, PTT, LIPR, CMPX ####[facility] [address]rvjyqr[address] [place] [address] Sodium molar nqkf384 mmol/KCxzvxu945-631Ghggv [facility] Medical CenterComment on above:Performed By: #### LIP, LACWB, IOCAL, PT, CDP, CHANDU, PTT, LIPR, CMPX ####[facility] [address]ksjxovccm[address] [place] [address] Urea nitrogen mass conc 14 mg/dLNormal8-23[facility] Medical CenterComment on above:Performed By: #### LIP, LACWB, IOCAL, PT, CDP, CHANDU, PTT, LIPR, CMPX ####[facility] [address]onkwxrpzrq[address]53 [place] [address] BUN/CRE RatioNOT REPORTEDHermann Area District Hospitalal9-20[facility] Medical CenterComment on above:Performed By: #### LIP, LACWB, IOCAL, PT, CDP, CHANDU, PTT, LIPR, CMPX ####[facility] [address]ix[address]702 [place] [address] Staging:NOT REPORTEDKettering Health Hamilton Comment on above:Performed By: #### LIP, LACWB, IOCAL, PT, CDP, CHANDU, PTT, LIPR, CMPX ####[facility] Nrzuxetytckk[address]234 [place] [address] Consulton [id number] IP Note OR TranscriptionKettering Health Hamilton Hgb/Hcton 51-33-5906Hguhqifiqr Auto Volume Fraction (Bld)35.4 %Low36.3-47.1MChino Valley Medical CenterComment on above:Performed By: #### LIP, LACWB, IOCAL, PT, CDP, CHANDU, PTT, LIPR, CMPX ####[facility] [address]scuv[address]glzsgz[address] [place] [address] Hemoglobin mass conc (Bld)10.6 g/dLLow11.9-15.1MChino Valley Medical CenterComment on above:Performed By: #### LIP, LACWB, IOCAL, PT, CDP, CHANDU, PTT, LIPR, CMPX ####[facility] Ycflcstmzzyy5410 [place] [address] Hematocrit Auto Volume Fraction (Bld)34.1 %Low36.3-47.1MChino Valley Medical CenterComment on above:Performed By: #### LIP, LACWB, IOCAL, PT, CDP, CHANDU, PTT, LIPR, CMPX ####[facility] Zqdvsaxyonor6114 [place] [address] Hemoglobin mass conc (Bld)10.4 g/dLLow11.9-15.1MChino Valley Medical CenterComment on above:Performed By: #### LIP, LACWB, IOCAL, PT, CDP, CHANDU, PTT, LIPR, CMPX ####[facility] W[address]xtquk[address]ixg3038 [place] [address] Lactic Acid,Whole Blon 18-80-5572Lewkim Acid,Whole Bl1.1 mmol/LNormal0.7-2.1MChino Valley Medical CenterComment on above:Performed By: #### LIP, LACWB, IOCAL, PT, CDP, CHANDU, PTT, LIPR, CMPX ####[address] [place] [address] Lipaseon 11-02-2017 Lipase enzyme act/vol54 U/PZzqaij28-39BqqomCommunity Regional Medical CenterComment on above:Performed By: #### LIP, LACWB, IOCAL, PT, CDP, CHANDU, PTT, LIPR, CMPX ####[facility] Mvbbdcgoffmt2681 [place] [address] Lipid Profile on 65-37-1630Hctfibwfbmz in HDL mass conc16 mg/dLLow>40Community Regional Medical CenterComment on above:Result Comment: HDL Guidelines: <40 Undesirable 40-59 Borderline >59 DesirablePerformed By: #### LIP, LACWB, IOCAL, PT, CDP, CHANDU, PTT, LIPR, CMPX ####[facility] Gt[address]ynpirzh6025 [place] [address] Cholesterol in LDL mass conc55 mg/dLNormal0-130[facility] Comment on above:Result Comment: LDL Guidelines: <100 Desirable 100-129 Near to/above Desirable 130-159 Borderline >159 UndesirableDirect (measured) LDL and calculated LDL are not interchangeable tests.Performed By: #### LIP, LACWB, IOCAL, PT, CDP, CHANDU, PTT, LIPR, CMPX ####[facility] [address]zvutsrie[address]49 [place] [address] Cholesterol mass conc96 mg/dLNormal<200[facility] Medical CenterComment on above:Result Comment: Cholesterol Guidelines: <200 Desirable 200-240 Borderline >240 UndesirablePerformed By: #### LIP, LACWB, IOCAL, PT, CDP, CHANDU, PTT, LIPR, CMPX ####[facility] [address]zzkbakmcxkc8064 [place] [address]([facility])[phone].total/Cholesterol in HDL mass ratio 6.0 {ratio}High<5[facility] Medical CenterComment on above:Performed By: #### LIP, LACWB, IOCAL, PT, CDP, CHANDU, PTT, LIPR, CMPX ####[facility] Hqpkmsbvohci8979 [place] [address]([facility])[phone] mass mhmw141 mg/dLNormal<150 [facility] Medical CenterComment on above:Result Comment: Triglyceride Guidelines: <150 Desirable 150-199 Borderline 200-499 High >499 Very high Based on AHA Guidelines for fasting triglyceride, November 2011.Performed By: #### LIP, LACWB, IOCAL, PT, CDP, CHANDU, PTT, LIPR, CMPX ####[facility] [address]vumiztjiavj[address]56 [place] [address]([facility])[phone] in VLDL mass concNOT REPORTEDNormal 1-30[facility] Medical CenterComment on above:Performed By: #### LIP, LACWB, IOCAL, PT, CDP, CHANDU, PTT, LIPR, CMPX ####[address] [address] MRSA, DNA, Nasalon [id number], DNA, Nasal NEGATIVE: MRSA DNA not detected by nucleic acid amplification.LatimerNMRSAACommunity Regional Medical CenterComment on above:Result Comment: Results should be used as an adjunct to nosocomial control efforts to identify patients needing enhanced precautions.The test is not intended to identify patients with staphylococcal infections. Results should not be used to guide or monitor treatment for MRSA infections.Performed By: #### LIP, LACWB, IOCAL, PT, CDP, CHANDU, PTT, LIPR, CMPX ####[place] [address] Magnesiumon 53-72-7064Tiyeujygj mass conc2.2 mg/dLNormal 1.6-2.6Mer[facility]arnassus CampusComment on above:Performed By: #### LIP, LACWB, IOCAL, PT, CDP, CHANDU, PTT, LIPR, CMPX ####[address] [address] PTon 16-02-8197DMM Coag RelTime (PPP)1.0 {INR} [facility]tering Health HamiltonComment on above:Result Comment: Therapeutic Range: Moderate Anticoagulant Intensity: INR = 2.0-3.0 High Anticoagulant Intensity: INR = 2.5-3.5Performed By: #### LIP, LACWB, IOCAL, PT, CDP, CHANDU, PTT, LIPR, CMPX ####[address] [address] Prothrombin time (PT) Coag time (PPP)10.5 sNormal9.0-12.0[facility] Medical CenterComment on above:Performed By: #### LIP, LACWB, IOCAL, PT, CDP, CHANDU, PTT, LIPR, CMPX ####[address] [address] Plan of Careon 59-53-5426DNH IP Note OR TranscriptionNormal [facility]arnass[facility] CampusHIM IP Note OR TranscriptionNormalCommunity Regional Medical CenterProgress Noteon 51-55-9603DOB IP Note OR Filling Layer Up NormalMerKaiser Martinez Medical CenterHIM IP Note OR TranscriptionNormalMerKaiser Martinez Medical CenterHIM IP Note OR TranscriptionNormalCommunity Regional Medical CenterHIM IP Note OR TranscriptionNormalCommunity Regional Medical Center HIM IP Note OR TranscriptionNormalCommunity Regional Medical CenterXR ABDOMEN (KUB) (SINGLE AP VIEW)on 84-57-7573OB ABDOMEN (KUB) (SINGLE AP VIEW) EXAMINATION:SINGLE SUPINE [...] favorsevere ileus.Interpreted by:VIRGIL Beckfordigned by:Moses Tyson MD11/02/inal resultNoVeterans Health Administration Consulton [id number] IP Note OR TranscriptionNormalCommunity Regional Medical CenterHistory and Physicalon 28-92-3295SHX IP Note OR TranscriptionNormGrand Lake Joint Township District Memorial HospitalMRSA, DNA, Nasalon 81-40-0293Ieevokwe Description .NASAL SWABKettering Health HamiltonComment on above:Performed By: #### LIP, LACWB, IOCAL, PT, CDP, CHANDU, PTT, LIPR, CMPX ####[address] [place] [address] XR ABDOMEN (KUB) (SINGLE AP VIEW)on 12-50-1667JV ABDOMEN (KUB) (SINGLE AP VIEW)EXAMINATION:SINGLE SUPINE XRAY [...] by:Olena Alexander, DOSigned by:Olena Alexander, DO11/01/17inal resultNormalMercy Parnassus Campus Vital Signs Date TimeVital SignValuePerforming OygthunpiOppbkryb88-56-0819 15:33-0400Body zsddyx543.02 cmDrake Shaw MD Work Phone: [phone]09-23-2025 15:33-0400 Body mass index (BMI) [Ratio]36.3 kg/p6XfufyDrake Shaw MD Work Phone: [phone]09-23-2025 15:33-0400 Body ijkzau48.1 kgDrake Shaw MD Work Phone: [phone])455[address]09-23-2025 15:33-0400 Diastolic blood ystngroo11 mm[Hg]Drake Shaw MD Work Phone: [phone])[address]09-23-2025 15:33-0400 Heart rate80 /Remy Shaw MD Work Phone: [phone])[address]09-23-2025 15:33-0400 Respiratory rate18 /Remy Shaw MD Work Phone: [phone]09-23-2025 15:33-0400 SaO2% (BldA) [Mass fraction]97 %Drake Shaw MD Work Phone: [phone]09-23-2025 15:33-0400 Systolic blood mm[Hg]Drake Shaw MD Work Phone: [facility]09-08-2025 15:06-0400 Body fikhzx039.4 cmDrake Shaw MD Work Phone: [facility]09-08-2025 15:06-0400Body mass index (BMI) [Ratio]36.07 kg/j5DlkunDrake Shaw MD Work Phone: [facility]09-08-2025 15:06-0400Body yjnevn26.63 kgDrake Shaw MD Work Phone: [facility]09-08-2025 15:06-0400Diastolic blood dmbyfaqs37 mm[Hg]Drake Shaw MD Work Phone: [facility]09-08-2025 15:06-0400Heart rate 88 /Remy Shaw MD Work Phone: [facility]09-08-2025 15:06-0400 Respiratory rate18 /Remy Shaw MD Work Phone: [facility]09-08-2025 15:06-5277RnI1% (BldA) [Mass fraction]96 %Drake Shaw MD Work Phone: [facility]09-08-2025 15:06-0400Systolic blood lsiyqdtm792 mm[Hg]Drake Shaw MD Work Phone: [facility]03-03-2025 15:07-0500Diastolic blood wibkhvqi80 mm[Hg][facility]03-03-2025 15:07-0500 Systolic blood zhufruow762 mm[Hg][facility]03-03-2025 15:03-0500Body bimdiz222.[address] [facility]03-03-2025 15:03-0500Body mass index (BMI) [Ratio]36.1 kg/c8PivuohlwcMercy Health St[facility]03-03-2025 15:03-0500Body vedprq05.7 [facility] 04-14-2024 15:03-0500Heart rate81 /[facility] 04-14-2024 15:03-0500Respiratory rate18 /[facility] 04-14-2024 15:03-7049RqT1% (BldA) [Mass fraction]95 %[facility]03-04-2024 13:20-0500Body mass index (BMI) [Ratio]35.05 kg/j4MramhSamia Landeros MD Work Phone: [facility]03-04-2024 13:20-0500Body bitfeylilad77.81 [degF]Samia Landeros MD Work Phone: [facility] [employer] [id number] 13:20-0500Body kaeiwv43.17 kgSamia Landeros MD Work Phone: [facility] [employer] [id number] 13:20-0500Diastolic blood ovnzmldf12 mm[Hg]Samia Landeros MD Work Phone: [facility] [employer] Sgthil17-08-1987 13:20-0500Heart rate 84 /Yordy Landeros MD Work Phone: [facility] [employer] [id number] 13:20-0500 Respiratory rate16 /Yordy Landeros MD Work Phone: [facility] [employer] [id number] 13:20-0500Systolic blood lbfsiohz839 mm[Hg]Samia Landeros MD Work Phone: [facility] [employer] [id number] 11:14-0500Body whwpzo252.3 cmSamia Landeros MD [facility] Phone: [facility] [id number] 11:14-0500Body mass index (BMI) [Ratio]36.44 kg/n2MtpqfSamia Landeros MD Work Phone: [facility] [employer] Figjxl93-21-1996 11:14-0500Body qijrjk68.8 kgSamia Landeros MD Work Phone: [facility] [id number] 11:14-0500Diastolic blood jnvmvukg81 mm[Hg]Samia Landeros MD Work Phone: [facility] [employer] [id number] 11:14-0500Heart rate 80 /Yordy Landeros MD Work Phone: [facility]02-19-2024 11:14-0500 Respiratory rate16 /Yordy Landeros MD Work Phone: [facility] [employer] [id number] 11:14-0500Systolic blood vnsxbacf503 mm[Hg]Samia Landeros MD Work Phone: [facility]01-29-2024 14:30-0500Body .02 cmTondra Mapus Other [facility]01-29-2024 14:30-0500 Body mass index (BMI) [Ratio]36.89 kg/o7Zaodtp Mapus Other [employer] Other 01-29-2024 14:30-0500Body .48 kgTondra Mapus Other [facility]01-29-2024 14:30-0500 Diastolic blood ugbltmkf83 mm[Hg]Tondra Mapus Other [facility] [facility]01-29-2024 14:30-0500 Respiratory rate18 /minTondra Mapus Other [employer] Other 01-29-2024 14:30-0904LvL7% (BldA) [Mass fraction]94 % Tondra Mapus Other [employer] Other 01-29-2024 14:30-0500Systolic blood mm[Hg] Tondra Mapus Other [facility]10-16-2023 14:30-0400 Body ubsbzw304.02 cmTondra Mapus Other [employer] Other 10-16-2023 14:30-0400Body mass index (BMI) [Ratio] 36.26 kg/r1Suntnb Mapus Other [employer] Other 10-16-2023 14:30-0400Body kaygfg78.85 kgTondra Mapus Other [employer] Other 10-16-2023 14:30-0400Diastolic blood xfyjsyes36 mm[Hg] Tondra Mapus Other [employer] Other 10-16-2023 14:30-0400Respiratory rate18 /minTondra Mapus Other [employer] Other 10-16-2023 14:30-3090WeE4% (BldA) [Mass fraction]95 % Tondra Mapus Other [employer] Other 10-16-2023 14:30-0400Systolic blood mm[Hg] Tondra Mapus Other [employer] Other 07-17-2023 13:30-0400Body nvkryz683.02 cmTondra Mapus Other [employer] Other 07-17-2023 13:30-0400Body mass index (BMI) [Ratio] 34.68 kg/u1Nuaqoj Mapus Other [employer] Other 07-17-2023 13:30-0400Body zudrkr28.81 kgTondra Mapus Other [employer] Other 07-17-2023 13:30-0400Diastolic blood idanqbvd40 mm[Hg] Tondra Mapus Other [employer] Other 07-17-2023 13:30-0400Respiratory rate18 /minTondra Mapus Other [employer] Other 07-17-2023 13:30-7620DnQ6% (BldA) [Mass fraction]96 % Tondra Mapus Other [employer] Other 07-17-2023 13:30-0400Systolic blood mm[Hg] Tondra Mapus Other [employer] Other 04-12-2023 15:15-0400Body .02 cmTondra Mapus Other [employer] Other 04-12-2023 15:15-0400Body mass index (BMI) [Ratio] 33.65 kg/h5Atqtdb Mapus Other [employer] Other 04-12-2023 15:15-0400Body .18 kgTondra Mapus Other [employer] Other 04-12-2023 15:15-0400Diastolic blood izsgtcxg25 mm[Hg] Tondra Mapus Other [employer] Other 04-12-2023 15:15-0400Respiratory rate18 /minTondra Mapus Other [employer] Other 04-12-2023 15:15-0930JjS0% (BldA) [Mass fraction]98 % Tondra Mapus Other [employer] Other 04-12-2023 15:15-0400Systolic blood xqbceumf415 mm[Hg] Tondra Mapus Other [employer] Other 03-15-2023 15:45-0400Body .02 cmTondra Mapus Other [employer] Other 03-15-2023 15:45-0400Body mass index (BMI) [Ratio] 33.35 kg/y7Khoveu Mapus Other [employer] Other 03-15-2023 15:45-0400Body jpvydk89.41 kgTondra Mapus Other [employer] Other 03-15-2023 15:45-0400Diastolic blood nimqnugm26 mm[Hg] Tondra Mapus Other [employer] Other 03-15-2023 15:45-0400Respiratory rate18 /minTondra Mapus Other [employer] Other 03-15-2023 15:45-2633BmG5% (BldA) [Mass fraction]96 % Tondra Mapus Other [employer] Other 03-15-2023 15:45-0400Systolic blood hprdugio064 mm[Hg] Tondra Mapus Other [employer] Other 01-09-2023 15:45-0500Body ymogun051.02 cmTondra Mapus Other [employer] Other 01-09-2023 15:45-0500Body mass index (BMI) [Ratio] 32.47 kg/s3Qwrfho Mapus Other [employer] Other 01-09-2023 15:45-0500Body dkunip32.14 kgTondra Mapus Other [employer] Other 01-09-2023 15:45-0500Diastolic blood izkzjitg19 mm[Hg] Tondra Mapus Other [employer] Other 01-09-2023 15:45-0500Respiratory rate18 /minTondra Mapus Other [employer] Other 01-09-2023 15:45-8528HbO4% (BldA) [Mass fraction]96 % Tondra Mapus Other [employer] Other 01-09-2023 15:45-0500Systolic blood qqziyjhx285 mm[Hg] Tondra Mapus Other [employer] Other 12-05-2022 09:00-0500Body .02 cmTondra Mapus Other [employer] Other 12-05-2022 09:00-0500Body mass index (BMI) [Ratio] 31.92 kg/u0Wlalxn Mapus Other [employer] Other 12-05-2022 09:00-0500Body .74 kgTondra Mapus Other [facility] [employer] Other 11-23-2022 12:00-0500Body eipnlh585.02 cmTondra Mapus Other [facility] [employer] Other 11-23-2022 12:00-0500Body mass index (BMI) [Ratio] 31.28 kg/k9Shapjg Mapus Other [facility] [employer] Other 11-23-2022 12:00-0500Body ecrctc83.11 kgTondra Mapus Other [place] [employer] Other 11-23-2022 12:00-0500Diastolic blood knghyjcu53 mm[Hg] Tondra Mapus Other [facility] [employer] Other 11-23-2022 12:00-0500Respiratory rate18 /minTondra Mapus Other [place] [employer] Other 11-23-2022 12:00-3665QpB9% (BldA) [Mass fraction]98 % Tondra Mapus Other [place] [employer] Other 11-23-2022 12:00-0500Systolic blood pjvelsnr109 mm[Hg] Tondra Mapus Other [employer] Other Encounters Encounter DateEncounter TypeCare ProviderFacilityStart: 11-10-2024 End: 32-54-8972HfwksoNqtik T Defrance MD Work Phone: [facility] MedicineStart: 11-04-2024 End: 52-17-4603Lioasonk ReferredBoy Phillips [employer]-C-[facility] Work Phone: Start: 11-04-2024 End: 39-93-6753sqgmwwwqfkIcwpwXiomara Shaw MD Work Phone: [facility] Work Phone: Start: 11-04-2024 End: 69-23-4078Pmjruqm encounter procedureBoy Phillips [employer]-C-[facility] Work Phone: Start: 10-20-2024 End: 27-80-9576Thnzrtg encounter Juanito Shaw MD Work Phone: [facility] MedicineComment on above: Necrotizing pancreatitis (Primary Dx); Secondary diabetes mellitus (CMS-HCC); Mixed hyperlipidemia; Essential hypertension, benign; Encounter for screening mammogram for malignant neoplasm of breastStart: 10-20-2024 End: 18-89-9050servhmmyfeGMIMP T DEFRANCECleveland [facility] PPGStart: 10-15-2024 End: 58-77-8452AgiqzzQoqqzwDorene BERMAN Work Phone: [facility] MedicineStart: 08-15-2024 End: 49-77-5174DefefiAhkdw Khurshid MD Work Phone: [facility] MedicineStart: 08-13-2024 End: 95-79-1806GpdqyuQevhmRyan Landeros MD Work Phone: [facility] MedicineComment on above: Mixed hyperlipidemiaStart: 06-20-2024 End: 10-27-4264VmxpanAvgofRyan Landeros MD Work Phone: [facility] MedicineStart: 05-18-2024 End: 91-54-9043LtdulfDvjcqRyan Lnaderos MD Work Phone: [facility] MedicineStart: 04-23-2024 End: 67-42-8455WbhoowSsaytRyan Landeros MD Work Phone: [facility] MedicineStart: 04-14-2024 End: 70-18-7998bmcmjnmvhrMqmuhlflbGenesis Hospital Work Phone: Start: 04-14-2024 End: 68-04-2319Euzvood encounter [facility] Work Phone: Start: 02-19-2024 End: 34-95-8887GgamttLxpfy T Defrance MD Work Phone: [facility] MedicineStart: 10-22-2023 End: 54-16-7448Vcoofqluq encounterDakerry Landeros MD Work Phone: [facility] MedicineStart: 09-11-2023 End: 40-79-4587TjbopeWhlbqRyan Landeros MD Work Phone: [facility] MedicineStart: 08-24-2023 End: 80-05-4162ThickqFokvy T Defrance MD Work Phone: [facility] MedicineStart: 08-17-2023 End: 14-05-0880ArvobrIvnih T Defrance MD Work Phone: [facility] MedicineStart: 07-24-2023 End: 30-14-1373Eqncni OnlySamia Landeros MD Work Phone: [facility] MedicineStart: 07-16-2023 End: 78-64-3967YzoopfHqzyoRyan Landeros MD Work Phone: [facility] MedicineStart: 06-15-2023 End: 20-04-0078KawdfsKuzksRyan Landeros MD Work Phone: [facility] MedicineComment on above: Mixed hyperlipidemiaStart: 48-58-5393Enbcetsih encounterDakerry Landeros MD Work Phone: [facility] MedicineStart: 04-27-2023 Telephone encounterDenise Krishna [facility] MedicineStart: 09-49-8166Lblfuv OnlySamia Landeros MD Work Phone: [facility] MedicineStart: 04-16-2023 End: 42-78-1709Cotctl outpatient visit 15 minutesSamia Landeros MD Work Phone: [facility] MedicineComment on above: Other acute sinusitis, recurrence not specified (Primary Dx)Start: 04-02-2023 End: 64-43-3115Uxminj outpatient visit 15 minutesSamia Landeros MD Work Phone: [facility] Family MedicineComment on above: Secondary diabetes mellitus (CMS-HCC) (Primary Dx); Necrotizing pancreatitis; Mixed hyperlipidemia; Essential hypertension, benignStart: 16-24-1194RwsnqkHpxmnRyan Landeros MD Work Phone: [facility] MedicineStart: 03-23-2023 End: 86-89-4672bbgwinhlppGcgvui Jacqueline Other [employer] Other Start: 25-58-3696Yjrzudamu encounterTondra [facility] Care ClinicStart: 03-12-2023 End: 12-79-4340Jafmxybrak RecurringMD Samia Landeros Work Phone: [facility] Work Phone: Start: 03-12-2023(DM) [facility] ClinicStart: 03-12-2023 End: 94-97-8090tphbzpsxwwJA David Defrance Work Phone: [employer] Other Start: 03-12-2023 End: 55-82-5974Bjvqkpv encounter procedureMD Samia Landeros Work Phone: [facility]-Start: 09-55-2323NntsspRmyvkKrysta Landeros MD Work Phone: [facility] MedicineStart: 01-01-2023 End: 27-25-4008pijlhvyfqoGgpesl Mapus Other [employer] Other Start: 62-11-1137Axqkqkfug encounterTondra Jacqueline [facility] Coord[facility] Care ClinicStart: 11-27-2022(DM) DiabetesTondra Saturninous [facility] Coordinated Care ClinicStart: 11-27-2022 End: 26-27-6366tobqnmieexMjnzea Mapus Other [employer] Other Start: 08-28-2022(DM) DiabetesTondra MapusFirelands Coordinated Care ClinicStart: 08-28-2022 End: 28-41-3892xingjloaixCngwli Mapus Other [employer] Other Start: 05-24-2022(DM) DiabetesTondra MapusFirelands Coordinated Care ClinicStart: 05-24-2022 End: 23-29-6316rstaafvcfjNktcqx [employer] Other [employer] Other Start: 05-01-2022 End: 83-91-9091bawxlzncsfYT SAMIA DEFRANCEFacility:K2Hjzdz: 04-26-2022(DM) DiabetesTondra MapusFirelands Coordinated Care ClinicStart: 04-26-2022 End: 36-05-8814vsndzhrlmlFogkgm Mapus Other [employer] Other Start: 03-09-2022 End: 72-86-8904aikjhmylxqYnbnlc Mapus Other [employer] Other Start: 69-62-7924Wpvbogqss encounterTondra Jacqueline [facility]aint [facility] Coord[facility] Care ClinicStart: 03-06-2022 End: 43-43-9347zsphuwbqmyTlizli Mapus Other [employer] Other Start: 09-73-3324Jbbvwhqlx encounterTondra Jacqueline [facility] Coordinated Care ClinicStart: 02-20-2022(DM) DiabetesTondra Jacqueline [facility] Care ClinicStart: 02-20-2022 End: 17-01-3723lyrrduzsaoEiiljm Mapus Other [employer] Other Start: 01-20-2022 End: 95-29-7027lpaugzcmdfYhhdnq [employer]us Other [employer] Other Start: 88-69-2996Kyxsdwbpa encounterTondra Jacqueline [facility] Care ClinicStart: 01-16-2022 End: 82-43-4603gbwobbcvouWkdsbc Mapus Other [employer] Other Start: 10-84-1597Mrbeapi evaluation of patient and reportTondra Lorenza Coordinated Care ClinicStart: 86-18-9019Bfnkwwfae encounterTondra Kevins Coordinated Care ClinicStart: 01-13-2022 End: 94-35-7600hcwbmaljclLaifle Simon MD Work Phone: General SurgeryComment on above:Secondary diabetes mellitus (HCC) (Primary Dx)Start: 01-13-2022 End: 73-07-6649Wobysttxpigp consultation with Cole Grady MD Work Phone: [facility] MAINStart: 01-08-2022 End: 35-51-3473tchwpqjvueKchafh Mapus Other [employer] Other Start: 99-56-4224Dlkdmaeqo encounterTondra MapusFPG EndocrinologyStart: 01-06-2022 End: 40-27-1989cyssutpivnNO SAMIA DEFRANCEFacility:A3Ommbh: 01-04-2022 End: 70-33-8924ltkixyycdwWmxsub Mapus Other [employer] Other Start: 27-88-1945SQQE visit new Guerita Phillips [facility] Coordinated Care ClinicStart: 37-72-2005uormvpnrejPC DAVID DEFRANCE Facility:P6Brscr: 11-14-2021 End: 67-56-0850qltpjnqfwvInbw Fitt Other [facility] [employer] Other Start: 85-62-9860Uprpfaulf encounterDawdeborah FisherProvidence Seaside Hospital Coordinated Care ClinicStart: 11-08-2021 End: 19-01-5033sfhvyvxupsQG DAVID DEFRANCEFacility:Y9Pecxw: 10-24-2021 End: 80-42-6891lpfbrwkeinOO DAVID DEFRANCEFacility:P4Fxofh: 11-01-2017 End: 61-58-9589Ufoehumntk and management of inpatientSALIL AVASTHIMercy Parn[facility] Procedures DateProcedureProcedure DetailPerforming ClinicianStart: 23-52-7852Yhkei depression screening assessmentDrake Shaw MD Work Phone: Start: 65-32-1882Ogazxfzz retinal eye examSamia Landeros MD Work Phone: Start: 96-74-3303ZgcqrchwywtWywpl Defrance MD Work Phone: Start: 51-89-2184Ncuhv depression screening assessment Samia Landeros MD Work Phone: Start: 57-28-6828Fpokw depression screening assessment Samia Landeros MD Work Phone: Start: 43-85-8983Yvvklicq retinal eye examSamia Landeros MD Work Phone: Start: 21-49-3098Lxhcc depression screening assessment Samia Landeros MD Work Phone: Start: 70-97-1844Ncclcbrxvflg [Mass/volume] in Urine by Test stripSamia Landeros MD Work Phone: Start: 47-25-0791BqffmclmicwKubeuq Simon MD Work Phone: Start: 48-80-0088YjozasdzrxxOwmpff Simon MD Work Phone: Start: 37-21-1259YIV GLUCOSE FINGERSTICKSALIL AVASTHI Start: 52-36-0530LKYA GLUCOSESALIL AVASTHIStart: 50-24-3643JYRCLXWLY PATIENT STEPH AVASTHIStart: 82-17-9774Ahgll metabolic panel calcium totalSALIL AVASTHI Start: 00-02-5798Bekcb count complete auto&auto difrntl wbcSALIL AVASTHIStart: 71-23-1079UWCZXZQ AND OR DRUG ASSESSMENTSALIL AVASTHIStart: 10-42-0263EARE PRECAUTIONSSALIL AVASTHIStart: 35-49-2121FBWVOHHT OXYGEN THERAPY PROTOCOLSALIL AVASTHIStart: 35-66-9310FFLACTW PRECAUTIONSSALIL AVASTHIStart: 91-72-7598USPB GLUCOSESALIL AVASTHIStart: 02-99-2577Yu abdomen & pelvis w/contrast material STEPH AVASTHIStart: 37-32-1231Epcnvcfcmh exam abdomen 1 viewSALIL AVASTHIStart: 04-30-1734SUCM GLUCOSESALIL AVASTHIStart: 41-97-5039OIVZKDZ, IONIZEDSALIL AVASTHIStart: 30-18-0101IJP GLUCOSE FINGERSTICKSALIL AVASTHIStart: 11-03-2017 INITIATE OXYGEN THERAPY PROTOCOLSALIL AVASTHIStart: 53-46-4719RAJEAHHWWXJ CARE EVALUATION AND TREATSALIL AVASTHIStart: 01-61-8736Iyuqh count complete auto&auto difrntl wbcSALIL AVASTHIStart: 06-29-4141KHUB GLUCOSESALIL AVASTHIStart: 94-46-4259WYO GLUCOSE FINGERSTICKSALIL AVASTHIStart: 70-83-2833EFD GLUCOSE FINGERSTICKSALIL AVASTHIStart: 74-99-1984MCLZ GLUCOSESALIL AVASTHIStart: 89-75-6399Aqnoikwknh exam abdomen 1 viewSALIL AVASTHIStart: 67-96-0259UXBFXNRCXI AND HEMATOCRIT, BLOODSALIL AVASTHIStart: 38-84-2692OXZ GLUCOSE FINGERSTICKSALIL AVASTHIStart: 12-40-9955CF CONSULT TO IV TEAMSALIL AVASTHIStart: 00-93-7839KJBF GLUCOSESALIL AVASTHIStart: 81-51-4990OHBGPMERJD AND HEMATOCRIT, BLOODSALIL AVASTHIStart: 93-55-4821GALE INSERTIONSALIL AVASTHIStart: 52-94-0838OPD GLUCOSE FINGERSTICKSALIL AVASTHIStart: 79-05-3620LFKH GLUCOSESALIL AVASTHIStart: 90-86-6924BNBRNWAN OXYGEN THERAPY PROTOCOLSALIL AVASTHIStart: 11-02-2017 RESPIRATORY CARE EVALUATION AND TREATSALIL AVASTHIStart: 99-66-5700Ipqdo of magnesiumSALIL AVASTHIStart: 63-95-9068Fmgxk count complete auto&auto difrntl wbcSALIL AVASTHIStart: 93-18-8733Uqwkk of amylaseSALIL AVASTHIStart: 11-02-2017 Assay of lactateSALIL AVASTHIStart: 38-61-5323Krcar of lipaseSALIL AVASTHIStart: 29-78-3647Vdwgs count complete auto&auto difrntl wbcSALIL AVASTHIStart: 34-32-8797KQBUIXE, IONIZEDSALIL AVASTHIStart: 83-89-5368Eizui panelSALIL AVASTHI Start: 08-82-9441Lvtwujganzp timeSALIL AVASTHIStart: 21-70-6674Zowjydhnjuqmai time partial plasma/whole bloodSALIL AVASTHIStart: 40-51-7300Vbbaxmj bacterial blood aerobic w/id isolatesSALIL AVASTHIStart: 74-53-8432NCQPHJB BLOOD #1SALIL AVASTHIStart: 69-61-0508VWJGCIGVSLD CARE EVALUATION AND TREATSALIL AVASTHIStart: 03-88-4270CRT 12-LEADSALIL AVASTHIStart: 74-64-8885RDHUUVL, URINE CATHETERSALIL AVASTHIStart: 77-23-0370Deenlqglka exam abdomen 1 viewSALIL AVASTHIStart: 30-04-8692AI CONSULT TO GISALIL AVASTHIStart: 04-07-7238NOOON INTERMITTENT PNEUMATIC COMPRESSION DEVICESALIL AVASTHIStart: 62-53-1919JAHIUH FOR NO CHEMICAL VTE PROPHYLAXISSALIL AVASTHIStart: 48-36-6594YWPT CODESALIL AVASTHIStart: 25-72-5676DQVVRTII OXYGEN THERAPY PROTOCOLSALIL AVASTHIStart: 52-52-4092JBKXFM PHYSICIAN (SPECIFY)STEPH AVASTHIStart: 74-53-8717SAMJP SIGNSSALIL AVASTHIStart: 44-31-1648GDKY DNA PROBE, NASALSALIL AVASTHIStart: 19-35-3233FL CONSULT TO GENERAL SURGERYSALIL AVASTHIStart: 95-83-8413BTLISIA STATUS (DIRECT)STEPH AVASTHIH/O: surgeryH/O resection of pancreasH/O: surgeryH/O resection of pancreasTondra K Mapus [employer]-C Plan of Treatment DateCare ActivityDetailAuthorStart: 16-36-2738BHkR,Tdap and Td Vaccines (2 - Td or Tdap)DTaP,Tdap and Td Vaccines (2 - Td or Tdap)ProMHutchinson Health Hospital SystemStart: 24-04-1221Pbyhq microalbumin profileDTAP,TDAP,TD (2 - Td or Tdap)[facility] Cent[facility]art: 10-21-2025 End: 15-16-2491Xzddlho encounter sdzdfamdc63/09/2026 3:30 PM EDT Office Visit [facility] [address] [place], [place] [id number] Drake Shaw MD [address] [place] [address] [facility] MedicineStart: 83-68-0288Kmlmb BMI Follow Up PlanAdult BMI Follow Up PlanProRiverview Health Institute SystemStart: 72-85-0919Dzibj BMI ScreeningAdult BMI ScreeningCorey Hospital SystemStart: 09-08-2026Medicare Annual Wellness VisitMedicare Annual Wellness VisitTransylvania Regional Hospitaltart: 54-24-3066Rrblotf ScreeningTobacco Screening ProMHutchinson [facility] SystemStart: 93-87-8771Amitfqqgzn ScreeningDepression Screening [facility] SystemStart: 29-63-8607Oinb Risk ScreeningFall Risk Screening ProMHutchinson Health Hospital SystemStart: 53-32-7606Ndoeyp Use: DiabeticStatin Use: Diabetic ProMHutchinson Health Hospital SystemStart: 04-30-2025 End: 83-34-7197Kjwnwyn encounter ewvwrpgiu49/19/2026 9:00 AM EDT Office Visit [facility] [address] [place], [id number] Drake Shaw MD [address] [place] [address] [facility] MedicineStart: 09-80-6518Jryhchbi screeningDiabetic Ophthalmology ExamProAcmc Healthcare System [facility] Start: 72-80-1493Gwlfbqewz for malignant neoplasm of breastMammogramProRiverview Health Institute SystemStart: 10-20-2024 End: 55-61-5132Icndazv encounter procedureProMedica Physicians Family Medicine Start: 10-20-2024 End: 96-72-3603YGX Breast - bilateral screeningMammography screening bilateral with CAD Imaging Routine Encounter for screening mammogram for malignant neoplasm of breast Expected: 10/20/2024, Expires: 10/20/2025[facility] SystemComment on above:Expected: 10/20/2024, Expires: 10/20/2025Start: 75-67-9559Eyhty BMI ScreeningAdult BMI ScreeningCorey Hospital SystemStart: 31-61-9282Dtgonwejze ScreeningDepression ScreeningCorey Hospital SystemStart: 04-49-5118Uytj Risk ScreeningFall Risk ScreeningCorey Hospital SystemStart: 09-03-2025Medicare Annual Wellness VisitMedicare Annual Wellness VisitCorey Hospital SystemStart: 06-98-1819Whuohcd ScreeningTobacco ScreeningCorey Hospital SystemStart: 41-76-4312Hhbkaaevr vaccinationInfluenza VaccineProRiverview Health Institute SystemStart: 81-18-3855Rhcwr BMI ScreeningAdult BMI ScreeningCorey Hospital SystemStart: 38-70-7482Ulxes BMI ScreeningAdult BMI ScreeningCorey Hospital SystemStart: 16-19-2236Zizykrfcxr ScreeningDepression ScreeningCorey Hospital SystemStart: 70-80-7755Iaem Risk ScreeningFall Risk ScreeningCorey Hospital SystemStart: 04-60-7342Vrsytdb ScreeningTobacco ScreeningCorey Hospital System Start: 46-67-2892Mzaxorur screeningDiabetic Ophthalmology ExamProFairfield Medical Centertart: 10-16-2023 End: 72-20-6569Ascikay encounter oddplwtch37/03/2024 3:00 PM EDT Office Visit [facility] [address] [place], [id number] Samia Landeros MD [address] [place] [address] [facility] MedicineStart: 90-06-1597Zuqbxgmbl vaccinationInfluenza VaccineCorey Hospital SystemStart: 09-94-8316Tkinr BMI ScreeningAdult BMI ScreeningCorey Hospital SystemStart: 08-31-2024Medicare Annual Wellness VisitMedicare Annual Wellness VisitTransylvania Regional Hospitaltart: 06-61-7126Gnyafan ScreeningTobacco ScreeningCorey Hospital SystemStart: 82-50-1874Kssdcyfrrg ScreeningDepression ScreeningCorey Hospital SystemStart: 29-37-7366Lvgn Risk ScreeningFall Risk ScreeningCorey Hospital SystemStart: 40-04-2645Tanfb screening for proteinUrine MicroalbuminCorey Hospital SystemStart: 04-23-2023 End: 76-34-2856Wccpsmfm Ubrymek1904/23/2023 3:00 PM EDT Clinical Support [facility] [address] [place] [id number] [facility] MedicineStart: 20-60-2566Klycxykg foot examination Diabetic Foot ExamCorey Hospital SystemStart: 04-10-2023 End: 08-05-4523Rihnenx encounter xdvfdymhe69/27/2024 3:30 PM EST Office Visit [facility] [address], [id number] Samia Landeros MD [address] [place] [address] [facility]: 04-02-2023 End: 94-80-9280Fjdelis encounter ccurvjgqz16/19/2024 11:15 AM EST Office Visit [facility] [address] [place] [address] Samia Landeros MD [address] [place] [address] [facility]art: 61-40-0479VutqyuilqeaSTNHNAQOTPutxzmmww ClinicStart: 25-24-5325Olecaokxn for malignant neoplasm of breastMammogramTransylvania Regional Hospitaltart: 10-13-2022 Influenza vaccinationInfluenza VaccineTransylvania Regional Hospitaltart: 05-08-2022 Hemoglobin A1c/Hemoglobin.total in RsxmkRAS5EYhxiiyzok ClinicStart: 10-13-2021 Influenza vaccinationINFLUENZA (#1)[facility] Centertart: 13-71-2237Kpqmfqivbjp COLONOSCOPYMercy Health St. Rita's Medical Centertart: 43-97-8013DYVCDWLWQT CANCER SCREENING COLORECTAL CANCER SCREENINGMercy Health St. Rita's Medical Centertart: 57-95-8475ZVYLMOTURF ASSESSMENTDEPRESSION ASSESSMENTMercy Health St. Rita's Medical Centertart: 12-50-1883Lxtzfejsghrqjq of varicella zoster vaccineZoster (Shingles) Vaccine (1 of 2)[facility] Hospitaltart: 96-95-6019XRHKSGOG VACCINE (1 of 2)SHINGRIX VACCINE (1 of 2) [facility] Centertart: 33-52-3932MNSNBWXWE (FIT-DNA)COLOGUARD (FIT-DNA)[facility] Centertart: 05-44-7039RW COLONOGRAPHYCT COLONOGRAPHYMercy Health St. Rita's Medical Centertart: 59-93-4290JJEOO OCCULT BLOODFECAL OCCULT BLOODMercy Health St. Rita's Medical Centertart: [address] [facility]'s Medical Centertart: 59-35-5037AJA TESTINGHPV TESTINGMercy Health St. Rita's Medical Centertart: 81-34-6448AQA TESTINGPAP TESTINGThe [facility] Start: 40-83-0141Yjpaa BMI Follow Up PlanAdult BMI Follow Up PlanTransylvania Regional Hospitaltart: 37-12-6291EWVURG PCP TEAM CHRONIC DISEASE VISITANNUAL PCP TEAM CHRONIC DISEASE VISITCleProMedica Bay Park Hospitaltart: 87-46-1279NW CONTROLLED (<130/80)BP CONTROLLED (<130/80)[facility] Centertart: 32-57-3733Phizuvwyq B surface antibody levelLDL CHOLESTEROLMercy Health St. Rita's Medical Centertart: [id number] C SCREENINGHEPATITIS C SCREENINGMercy Health St[facility] Centertart: [id number] SCREENING HIV SCREENINGMercy Health St. Rita's Medical Centertart: comp foot exam completedDIABETIC FOOT EXAMCleProMedica Bay Park Hospitaltart: [id number] B screeningURINE ALBUMIN:CREATININE RATIOMercy Health St. [facility] Centertart: 83-44-2790Dgqzpomvs C antibody, confirmatory testDILATED RETINAL EXAMMercy Health St. Rita's Medical Centertart: 1961 PNEUMOCOCCAL (1 - PCV)PNEUMOCOCCAL (1 - PCV)[facility]: 1955 COVID-19 VACCINE (#1)COVID-19 VACCINE (#1)[facility] End: [id number] metabolic 2000 panel - Serum or PlasmaBasic Metabolic Panel Lab Routine Essential hypertension, benign 1 Occurrences starting 04/02/2023 u ntil 04/02/2024[employer] Work Phone: comment on above:1 Occurrences starting 04/02/2023 until 04/02/2024 End: 59-21-0836OQM W Auto Differential panel - BloodCBC auto differential Lab Routine Essential hypertension, benign 1 Occurrences starting 10/20/2024 until 10/20/2025ProSelect Medical Specialty Hospital - AkronJuv Acessórios SystemComment on above:1 Occurrences starting 10/20/2024 until 10/20/2025omprehensive metabolic 1999 panel - Serum or Plasma [facility] End: 07-31-0060Xtveglehcodzx metabolic 1999 panel - Serum or PlasmaComprehensive metabolic panel Lab Routine Essential hypertension, benign 1 Occurrences starting 10/20/2024 until 10/20/2025ProMediPV [employer] Work Phone: comment on above:1 Occurrences starting 10/20/2024 until 10/20/2025 End: 32-45-8944Jnoiypjfxh A1c/Hemoglobin.total in BloodHemoglobin A1c Lab Routine Secondary diabetes mellitus ([facility]) 1 Occurrences starting 10/20/2024 until 10/20/2025ProSelect Medical Specialty Hospital - AkronJuv Acessórios SystemComment on above:1 Occurrences starting 10/20/2024 until 10/20/2025 End: 80-60-1441Cdyrp 1996 panel - Serum or PlasmaLipid profile Lab Routine Mixed hyperlipidemia 1 Occurrences starting 10/20/2024 until 10/20/2025[facility] HospitalComment on above:1 Occurrences starting 10/20/2024 until 10/20/2025 End: 00-26-2190Pubdjlvodblc - Albumin: Creatinine Urine RatioMicroalbumin - Albumin: Creatinine Urine Ratio Lab Routine Secondary diabetes mellitus ([facility]) 1 Occurrences starting 10/20/2024 until 10/20/2025[facility] Comment on above:1 Occurrences starting 10/20/2024 until 10/20/2025 Microalbumin/Creatinine [Mass Ratio] in [facility] Patient EducationDiabetes and [facility] Work Phone: End: 55-29-1809Biicfcq profile includes TSH FP4Abbxmac profile includes TSH FT4 Lab Routine Essential hypertension, benign 1 Occurrences starting 10/20/2024 until 10/20/2025[facility] HospitalComment on above:1 Occurrences starting 10/20/2024 until 10/20/2025[facility] Immunizations Immunization DateImmunizationNotesCare FasrhspwQubpbeyb98-21-3319Aahcwpmwtbsb Conjugate 20-valentDakerry Landeros MD Work Phone: [facility] HospitalBeyczw49-55-7184wnmazvqlt, injectable, quadrivalent, preservative Kelsey Landeros MD Work Phone: [facility] HospitalBjwqbm88-86-6387ukieikydj virus vaccine, unspecified formulationSamia Landeros MD Work Phone: [facility] HospitalYcthyy23-54-9344Xmouoghhn, injectable, Madin [place] Canine Kidney, preservative free, quadrivalentSamia Landeros MD Work Phone: [facility] HospitalGitghj54-16-4504byynwfgfs, injectable, quadrivalent, preservative Kelsey Landeros MD Work Phone: [facility] HospitalPctamy27-46-3054zzjvbsgfytzhx polysaccharide (groups A, C, Y and W-135) diphtheria toxoid conjugate vaccine (MCV4P)Samia Landeros MD Work Phone: [facility] HospitalXgawso95-16-2197jzmfphuujbic polysaccharide vaccine, 23 valentSamia Landeros MD Work Phone: [facility] HospitalIpqqte81-36-6035qabjisbfvet influenzae type b vaccine, conjugate unspecified formulationSamia Landeros MD Work Phone: [facility] HospitalMrelqe67-28-8812wvevjkhcecgba oligosaccharide (groups A, C, Y and W-135) diphtheria toxoid conjugate vaccine (MCV4O)Samia Landeros MD Work Phone: [facility] HospitalQepvau02-85-0966wlmoghgmcomk polysaccharide vaccine, 23 valentSamia Landeros MD Work Phone: [facility] HospitalBslkno50-16-3706rmcxbfmfi, injectable, quadrivalent, contains preservativePk Grady MD Work Phone: [facility] CenterKddzts69-76-5589mmlmeja toxoid, reduced diphtheria toxoid, and acellular pertussis vaccine, adsorbedPk Grady MD Work Phone: [facility] Work Phone: Payers DatePayer CategoryPayerPolicy ID2021Medicaid [id number] 2021MedicareANTHEMMedicareANTHEM MEDICARE ANTHEM MEDICARE ADVANTAGE [id number] 2020-Present [phone] [address] [place] [id number] 2021Medicare HMOANTHEM MEDICARE Member Subscriber Plan / Payer (Effective 2020-Present) Name: Nichole Sandhu Relation to Subscriber: Self Name: Nichole Sandhu SubscriberID: [id number] Payer ID: [id number] (NAIC) Group ID: [id number] Type: Not on file Address: [facility] [address] [place] [phone] InsuranceAUTO INSURANCE [id number] [id number] Blue Cross Blue [id number] [id number] 1960Medicaid [id number]-[id number] 2..[id number] 2..[id number] 2..[id number] [id number] [id number] [id number] 2..[id number] [id number] Social History DateTypeDetailFacilityUnknown if ever smokedNort Munch [employer]unch Other Start: 03-23-2020 End: 63-49-8542Xhs [facility] Centertart: 07-01-2018 End: 42-33-2554Vyzxzmp smoking status NHISEx-smokerThe [facility] Of [facility] End: 46-38-3069Weneuqc of tobacco useCurrent smokerThe [facility] Of [facility] Center End: 01-29-9099Uuqvtkv of tobacco useCigarette SmokerMercy Health St. Rita's Medical Centertart: 07-01-2018 End: 52-99-1562Eadlcbjcld smoked current (pack per day) - Reported0.1PSelect Specialty Hospital - Winston-Salemtart: 07-01-2018 End: 33-38-4193Urqxpfh use and exposureSmokeless tobacco non-userMercy Health St. Rita's Medical Centertart: 01-13-2022 End: 80-57-6565Igpjzbg intakeEx-drinker (finding)[facility] Medical Centertart: 75-56-4593Okl Assigned At BirthNot on fileMercy Health St. Rita's Medical Centertart: 30-77-7509Iku Assigned At TriHealthtart: 70-13-4319Ihoirnn smoking status NHISNever smoked tobaccoProAcmc Healthcare System GlenbeighDo you belong to any clubs or organizations such as uatsdin groups, unions, fraternal or athletic groups, or school groups?YesProMedica Health SystemAre you now , , , , never or living with a partner?Never [facility] SystemHow often to you have a drink containing alcohol?Never [facility] SystemHow many standard drinks containing alcohol do you have on a typical day?Patient declinedProAcmc Healthcare System GlenbeighDo you feel stress - tense, restless, nervous, or anxious, or unable to sleep at night because your mind is troubled all the time - these days [OSQ]Not at allCorey Hospital SystemStart: 29-20-6306Xorczrsfs65WryLmpxqf CoachClub SystemStart: 11-22-2017 Alcohol CommentoccasionalTransylvania Regional Hospitaltart: 11-19-2017 End: 53-08-1837GvcWuvwsd (finding)[facility] SystemHow hard is it for you to pay for the very basics like food, housing, medical care, and heatingNot very hardLicking Memorial Hospital Medical Equipment Procedure CodeEquipment CodeEquipment Original TextEquipment IdentifierDates [id number], [id number], [id number]: 59-72-1650Pdiegcm on above:Use as instructedblood sugar diagnostic (True Metrix Glucose Test Strip)Start: 02-51-0650aqufi sugar diagnostic (True Metrix Glucose Test Strip)Start: 23-37-4384nalgz sugar diagnostic (True Metrix Glucose Test Strip)Start: 06-18-2023 Clinical Notes 11-27-2017 to 11-04-2024 Note Date & TieiCigaGhigtdqx32-36-0703 Evaluation note* Diagnosis Onset Date Resolution Status Admit Date BMI 36.0-36.9,adult acuteSept2024 2:51pmDietary counseling and surveillanceacute November 04, 2024 2:51pmH/O resection of pancreasacutept2024 2:51pmHyperlipidemiaacuteSept2024 2:51pmHypertensionacuteSept2024 2:51pmInsulin pump titrationacutept2024 2:51pmType 2 diabetes mellitusacutept2024 2:51pm [facility] Work Phone: 1(705) 155-347809-08-2025 History of Present illness Narrative* Drake Shaw MD - 10/20/2024 3:00 PM EDT Images from the original note were not included. [address] [place] [address] Subjective: Nichole Sandhu is a 69 y.o. female who presents for a Medicare Annual Wellness exam. The following portions of the patient's history were reviewed and updated as appropriate: Health Risk Assessment, allergies, past medical history, past surgical history, social history, family history, and immunization history Accompanied by: self History Provided By: self Language and Other Communication Barriers: Primary Language Spoken: Nepalese Highest Level of Education Completed: high school [...] Do you have a durable power of nutritionist?: (Patient-Rptd) Yes Hearing Assessment Do you strain [...] 09/18/2023 Neck pain 08/31/2022 Secondary diabetes mellitus ([facility]) 04/19/2020 Necrotizing pancreatitis 08/09/2018 Pancreas tail injury 07/31/2018 Past Medical History: Diagnosis Date C. difficile colitis Diabetes mellitus ([facility]) Hypertension Necrotizing pancreatitis Pancreatitis Past Surgical History: [...] 1 capsule (5,000 Units total). DEXCOM G6 BATTERY CHECKER misc DEXCOM G6 SENSOR device DEXCOM G6 [...] for nausea or vomiting. Secondary diabetes mellitus ([facility]) - Hemoglobin A1c; Future - Microalbumin - [...] Follow Up: 6 mo documented in this encounterLicking [facility] Hospital09-09-2024 Miscellaneous Notes* Telephone Encounter - Samia Landeros MD - 10/22/2023 3:51 PM EDT Outside labs - wbc# 15,000 has fluctuated in the past- and pt has no c/o's on ros including exposure- will observe k+ 3.4 and is on potassium 10meq 1 qd , will increase to bid rx sent documented in this encounterLicking [facility] Hospital09-09-2024 Telephone encounter Note* Telephone Encounter - Samia Landeros MD - 10/22/2023 3:51 PM EDT Outside labs - wbc# 15,000 has fluctuated in the past- and pt has no c/o's on ros including exposure- will observe k+ 3.4 and is on potassium 10meq 1 qd , will increase to bid rx sent [facility]07-30-2024 Miscellaneous Notes* Telephone Encounter - Yohana Keller LPN - 09/11/2023 12:43 AM EDT [place] [facility]ill of Ferrous Sulfate documented in this encounterLicking Memorial Hospital07-30-2024 Telephone encounter Note* Telephone Encounter - Yohana Keller LPN - 09/11/2023 12:43 AM EDT [facility] requesting refill of Ferrous Sulfate [facility]07-12-2024 Miscellaneous Notes* Telephone Encounter - Yohana Keller LPN - 08/24/2023 12:43 AM EDT [facility] requesting refill of Klor Con documented in this encounterLicking Memorial Hospital07-12-2024 Telephone encounter Note* Telephone Encounter - Yohana Keller LPN - 08/24/2023 12:43 AM EDT [facility] requesting refill of Klor Con [facility]07-05-2024 Miscellaneous Notes* Telephone Encounter - Yohana Keller LPN - 08/17/2023 3:15 PM EDT Patient via MyChart requesting refill of Diclofenac Gel, Lidociane Patches and Meclizine to [place] [facility] documented in this encounterLicking [facility] Hospital07-05-2024 Telephone encounter Note* Telephone Encounter - Yohana Keller LPN - 08/17/2023 3:15 PM EDT Patient via MyChart requesting refill of Diclofenac Gel, Lidociane Patches and Meclizine to [place] [facility]06-03-2024 Miscellaneous Notes* Telephone Encounter - Yohana Keller LPN - 07/16/2023 9:12 AM EDT Patient via MyChart requesting refill of Carvedilol and Ondansetron to [place] [facility] documented in this encounterLicking Memorial Hospital06-03-2024 Telephone encounter Note* Telephone Encounter - Yohana Keller LPN - 07/16/2023 9:12 AM EDT Patient via MyChart requesting refill of Carvedilol and Ondansetron to [facility]05-03-2024 Miscellaneous Notes* Telephone Encounter - Yohana Keller LPN - 06/15/2023 5:37 PM EDT [facility] requesting refill of Atorvastatin and Pantoprazole documented in this encounterLicking Memorial Hospital05-03-2024 Telephone encounter Note* Telephone Encounter - Yohana Keller LPN - 06/15/2023 5:37 PM EDT [facility] requesting refill of Atorvastatin and Pantoprazole [facility]03-25-2024 Miscellaneous Notes* Telephone Encounter - Samia Landeros MD - 05/07/2023 10:38 AM EDT Outside labs are good except for glucose at 203- please f/u Tondra regarding sugar * Telephone Encounter - Cynthia Taylor CMA - 05/07/2023 10:38 AM EDT Patient notified of results and instructions. documented in this encounterLicking Memorial Hospital03-25-2024 Telephone encounter Note* Telephone Encounter - Samia Landeros MD - 05/07/2023 10:38 AM EDT Outside labs are good except for glucose at 203- please f/u Tondra regarding sugar [facility]03-25-2024 Telephone encounter Note* Telephone Encounter - Cynthia Taylor CMA - 05/07/2023 10:38 AM EDT Patient notified of results and instructions. [facility]03-15-2024 Miscellaneous Notes* Telephone Encounter - Yohana Keller LPN - 04/27/2023 8:56 AM EDT Needs new Rx for Amlodipine 5mg documented in this encounterLicking Memorial Hospital03-15-2024 Telephone encounter Note* Telephone Encounter - Yohana Keller LPN - 04/27/2023 8:56 AM EDT Needs new Rx for Amlodipine 5mg [facility]03-15-2024 Miscellaneous Notes* Telephone Encounter - Yohana Keller [...] message and verbalizes understanding documented in this encounterLicking Memorial Hospital03-15-2024 Telephone encounter Note* Telephone Encounter - Yohana Keller LPN - 04/27/2023 8:16 AM EDT Anneliese's BP is low at night, 98/60 range, do you want to make any changes? [facility]03-15-2024 Telephone encounter Note* Telephone Encounter - Samia Landeros MD - 04/27/2023 8:16 AM EDT We can decrease the norvasc to 5mg- do we need a new rx? [facility]03-15-2024 Telephone encounter Note* Telephone Encounter - Yohana Keller LPN - 04/27/2023 8:16 AM EDT Patient notified of message and verbalizes understanding [facility]03-04-2024 History of Present illness Narrative* Samia Landeros MD - 04/16/2023 1:15 PM EST Images from the original note were not included. [address] [facility] [address] SUBJECTIVE: Patient ID: Nichole Sandhu [...] Cefdinir 300mg bid x10d documented in this encounterLicking Memorial Hospital02-19-2024 History of Present illness Narrative* Samia Landeros MD - 04/02/2023 11:15 AM EST Images from the original note were not included. [address] [place] [id number] SUBJECTIVE: Patient ID: Nichole Sandhu is a [...] BMP in 3 weeks documented in this encounterOhioHealth Shelby HospitalPV Nano Cell [facility]cl[facility] MichiganSnjbas01-14-9412 Miscellaneous Notes* Telephone Encounter - Yohana Keller LPN - 03/26/2023 9:43 AM EST [place] [facility] requesting refill of Colace documented in this encounterOhioHealth Shelby HospitalSustainable Food Development02-12-2024 Telephone encounter Note* Telephone Encounter - Yohana eKller LPN - 03/26/2023 9:43 AM EST [place] [facility] requesting refill of Colace [facility] HospitalRedSeguro[facility]-2024 Evaluation note* Encounter Date Diagnosis Assessment Notes Treatment Notes Treatment Clinical Notes Mar, Secondary diabetes (ICD-10 - E13 .9) [employer] Other 01-29-2024 Evaluation note* Encounter Date Diagnosis [...] or diabetes medication issues. 6. Prescriptions[facility] [place]-Toujeo and Humalog sent 03/12/23; DME: [facility]-Dexcom [...] to make it easier material was published [employer] Other [id number] Miscellaneous Notes* Telephone Encounter - Yohana Keller LPN - 02/15/2023 9:52 AM EST Patient via [employer] requesting refill of Lidocaine to [place] [facility] documented in this encounterLicking Memorial Hospital01-04-2024 Telephone encounter Note* Telephone Encounter - Yohana Keller LPN - 02/15/2023 9:52 AM EST Patient via [employer] requesting refill of Lidocaine to [place] [facility]01-04-2024 Miscellaneous Notes* Telephone Encounter - Yohana Keller LPN - 02/15/2023 9:51 AM EST Patient via [employer] requesting refill of Meclizine to [place] [facility] documented in this [facility]01-04-2024 Telephone encounter Note* Telephone Encounter - Yohana Keller LPN - 02/15/2023 9:51 AM EST Patient via [employer] requesting refill of Meclizine to [place] [facility]11-20-2023 Evaluation note* Encounter Date Diagnosis Assessment Notes Treatment Notes Treatment Clinical Notes Dec, Secondary diabetes (ICD-10 - E13 .9) Dec,Type 2 diabetes mellitus (ICD-10 - E11.9) [employer] Other 10-16-2023 Evaluation note* Encounter Date Diagnosis [...] pt declines. Nov,Other09/03 gfr >60; ma wnl [employer] Other 07-17-2023 Evaluation note* Encounter Date Diagnosis [...] the nutrition facts label material was published [employer] Other 04-12-2023 Evaluation note* Encounter Date Diagnosis [...] Prescriptions: Refill request for Humalog sent to [facility] in [place] 05/24/22 7. Prescriptions will not be filled [...] the nutrition facts label material was published [employer] Other 03-15-2023 Evaluation note* Encounter Date Diagnosis [...] Toujeo sent to pharmacy. Pt was given touMobincubeo x2 sample pens today. 7. Prescriptions will [...] target-on statin Apr,MI 33.0-33.9,adult (ICD-10 - Z68.33) [employer] Other 01-09-2023 Evaluation note* Encounter Date Diagnosis [...] target-on statin Feb,MI 32.0-32.9,adult (ICD-10 - Z68.32) [employer] Other 12-05-2022 Evaluation note* Encounter Date Diagnosis [...] [facility] All questions and concerns addressed. Encouraged to follow up for next appointment. 45 minutes was spent on education by Rajni GONZALES, RN. Reviewed cgm download 01/04/22-: Avg glucose 252. >250-48.7%, >180- 88.6%, 70-180-11.4%, <70-0%, <54-0%. CV 22.8%. SD 58. See above recommendations. Malia LOMAS, ALESSIO-C, [facility] [employer] Other 12-02-2022 NoteHNO ID: [id number] Author: Pk Grady MD Service: ? Author [...] time. Continue to follow up with her physician assistant. - Follow up with ca PRN CC: Diabetes INTERVAL HPI: Had to [...] which included preparing to see the patient, ksey-jw-zgze patient care, completing clinical documentation, obtaining and/or reviewing separately obtained history, performing a medically appropriate examination, counseling and educating the patient/family/caregiver, ordering medications, tests, or procedures, and communicating results to the patient/family/caregiver. Anton Grady MD B surgery Pager: [phone] [facility]12-02-2022 History of Present illness Narrative* Pk [...] time. Continue to follow up with her physician assistant. - Follow up with me PRN CC: [...] which included preparing to see the patient, pour-ln-kpda patient care, completing clinical documentation, obtaining and/or reviewing separately obtained history, performing a medically appropriate examination, counseling and educating the pat ient/family/caregiver, ordering medications, tests, or procedures, and communicating results to thepatient/family/caregiver. Anton Grady MD B surgery Pager: [phone] documented in this encounterThe University Of [facility] Center11-23-2022 Evaluation note* Encounter Date Diagnosis [...] Prescriptions: Sent toujoe/humalog[facility]. Sent dexcom g6 cgm transmitter/cgm to [...] - E16.2) Pt would greatly benefit from intermediate personal use of CGM device such as [...] how to apply the sensor using a Queue-ito device and handouts. She successfully applied the sensor to the back of her left arm and inserted the transmitter. The sensor successfully was linked with the phone. Her Clarity account was linked with the office account using a sharing code. 45 minutes were spent educating the patient by Aramis Palm RN, [facility]. [facility] [employer] Other 10-16-2018 History of Past illness Narrative* Problem Noted DateResolved UurnOrwva77Obesity, Class II, BMI 35-39.9 /01/20207226Vgprevwo72 Last Assessment & Plan: PLAN: See plan for encephalopathy documented as of this encounter (statuses as of 01/13/2022) [facility] noteNo InformationNortThe Good Shepherd [facility] LectureTools Other Evaluation note* Diagnosis Secondary diabetes mellitus (HCC)- Primary Secondary diabetes mellitus without mention of complication, not stated as uncontrolled, or unspecified documented in this encounter [facility] noteNo assessment information availableRiverview Health Institute Ctr Work Phone: Evaluation note* Diagnosis Mixed hyperlipidemia documented in this encounter [facility] HospitalEvaluation note* Diagnosis Secondary diabetes mellitus (CMS-HCC)- Primary Secondary diabetes mellitus without mention of complication, not stated as uncontrolled, or unspecified Necrotizing pancreatitis Acute pancreatitis Mixed hyperlipidemia Essential hypertension, benign documented in this encounter [facility] HospitalEvaluation note* Diagnosis Other acute sinusitis, recurrence not specified- Primary documented in this encounter [facility] SystemEvaluation note* Diagnosis Onset Date Resolution Status Admit Date BMI 36.0-36.9,adult acuteMarch 2024 2:51pmDietary counseling and surveillanceacuteMarch 2024 2:51pmH/O resection of pancreasacuteMarch 2024 2:51pmHyperlipidemia acuteMarch 2024 2:51pmHypertensionacuteMarch 2024 2:51pmInsulin pump titrationacuteMar 2024 2:51pmLocalized infection of skinacuteApr 2024 2:51pmType 2 diabetes mellitusacuteDoctors Hospital 2024 2:51pm [facility] Work Phone: Evaluation note* Diagnosis Mixed hyperlipidemia documented in this encounter [facility] HospitalEvaluation note* Diagnosis Necrotizing pancreatitis- Primary Acute pancreatitis Secondary diabetes mellitus ([facility]) Secondary diabetes mellitus without mention of complication, not stated as uncontrolled, or unspecified Mixed hyperlipidemia Essential hypertension, benign Encounter for screening mammogram for malignant neoplasm of breast documented in this encounter [facility] HospitalEvaluation note* Diagnosis Onset Date Resolution Status Admit Date BMI 35.0-35.9,adult acuteSeptember 2024 2:51pmDietary counseling and surveillanceacute Vania 2024 2:51pmH/O resection of pancreasacuteSept2024 2:51pmHyperlipidemiaacuteSept2024 2:51pmHypertensionacuteSeptember 2024 2:51pmInsulin pump titrationacuteSept2024 2:51pmType 2 diabetes mellitusacuteSept2024 2:51pm [facility] Work Phone: History general Narrative - Reported* Type Description Date Medical History Secondary Diabetes Mellitus Medical HistoryNecrotizing pancreatitisMedical HistoryPancreas tail injury Surgical HistoryCesarean sectionSurgical HistoryHysterectomySurgical History Kidney stone surgerySurgical HistoryPancreas resectionSurgical HistoryPancreas- partial removalSurgical HistorySplenectomyHospitalization Historysee above [employer] Other InstructionsNot on filedocumented in this encounter [facility] SystemInstructionsNot on filedocumented in this encounter [facility] SystemInstructionsNot on filedocumented in this encounter [facility] SystemInstructionsNot on filedocumented in this encounter [facility] SystemInstructionsNot on filedocumented in this encounter [facility] SystemInstructions* Attachments The following attachments cannot be sent through Care Everywhere. * Diabetes and diet (Nepalese) documented in this encounterProMedica Health SystemInstructionsNot on file documented in this encounterProMedica Health SystemInstructions* Attachments The following attachments cannot be sent through Care Everywhere. * Sinusitis in adults (Nepalese) documented in this encounterProMedica Health SystemInstructionsNot on [...] for referral (narrative)No reason for referral information availableDunlap [facility] Hospital Work Phone: Reason for visit NarrativeReferral Dr. 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 DATE CREATED AUTHOR AUTHOR'S ORGANIZ ATION 05/07/2022 [facility] DATE CREATED AUTHOR AUTHOR'S ORGANIZ ATION 10/22/2024 [facility] DATE CREATED AUTHOR AUTHOR'S ORGANIZ ATION 11/14/2024 [facility] REASON FOR VISIT (unrecogniz ed section and content) ReasonCommentsDiabetesReasonCommentsMed RefillReasonOnset DateCommentsMed Refill 4ReasonOnset DateCommentsMed Ybegku934ReasonCommentsRoutine Check upReasonOnset DateCommentsMed Pedzvw154ReasonOnset DateCommentsMed Ohjgky044ReasonCommentsAnnual ExamMedicare wellness Source Comments (unrecognize d section and content) In the event this informatio n is protected by the Federal Confidentiality of Alcohol and Drug Abuse Patient Records regulations: The Federal rules restrict any use of the information to criminally investigate or prosecute any alcohol or drug abuse patient.[facility] Care Teams (unrecognized sec tion and content) Team Status: Active Member Role Status Dates Drake Shaw MD Primary Care Provider Active Team Status: Inactive Member Role Status Dates Drake Shaw MD Primary Care Provider Active Start: November 04, 2024 End: November 04, 2024Sylvia Hutchins ProviderActiveStart: November 04, 2024 End: November 04, 2024Team MemberRelationshipSpecialtyStart DateEnd Date Samia Payton [address] [place] [address] PCP - [facility] Wwflazka23/12/18 Team Status: Active Member Role Status Dates [...] Samia Landeros MD [address] [place] [address] PCP - [facility] Tfgcndvb66/11/18Team MemberRelationshipSpecialtyStart Date End Date Samia Landeros MD [address] [place] [address] PCP - [facility] Hizblfxx10/11/18Team MemberRelationshipSpecialtyStart Date End Date Samia Landeros MD [address] [place] [address] PCP - [facility] Xcvcygfv69/11/18Team MemberRelationshipSpecialtyStart Date End Date Samia Landeros MD [address] [place] [address] PCP - [facility]11/22/17Team MemberRelationshipSpecialtyStart Date End Date Samia Landeros MD [address] [place] [address] PCP - [facility]11/22/17Team MemberRelationshipSpecialtyStart Date End Date Samia Landeros MD [address] [place] [address] PCP - [facility]11/22/17am MemberRelationshipSpecialtyStart Date End Date Samia Landeros MD [address] [place] [address] PCP - [facility]11/22/17Te MemberRelationshipSpecialtyStart Date End Date Samia Landeros MD [address] [place] [address] [facility] - [facility]11/22/17 MemberRelationshipSpecialtyStart Date End Date Samia Landeros MD [address] [place] [address] PCP - [facility]11/22/17Te MemberRelationshipSpecialtyStart Date End Date Samia Landeros MD [address] [place] [address] PCP - [facility]11/22/17 Team Status: Inactive Member Role Status Dates Samia Landeros MD Primary Care Provider Active Start: April 14, 2024 End: April 14, 2024Boy Phillips APRNAttucker ProviderActiveStart: April 14, 2024 End: April 14, 2024Team MemberRelationshipSpecialtyStart DateEnd Date Samia Landeros MD [address] [place] [address] PCP - [facility]11/22/17 MemberRelationshipSpecialtyStart Date End Date Samia Landeros MD [address] Provider retired 05/13/24 [place] [address] PCP - [facility]11/22/17 MemberRelationshipSpecialtyStart Date End Date aSmia Landeros MD [address] Provider retired 05/13/24 [place] [address] PCP - [facility]11/22/17 MemberRelationshipSpecialtyStart Date End Date Samia Landeros MD [address] Provider retired 05/13/24 [place] [address] PCP - [facility]11/22/17 MemberRelationshipSpecialtyStart Date End Date Drake Shaw MD [address] [place] [address] PCP - [facility]09/17/24Te MemberRelationshipSpecialtyStart Date End Date Drake Shaw MD [address] [place] [address] PCP - [facility]09/17/24 Team Status: Inactive Member Role Status Dates Drake Shaw MD Primary Care Provider Active Start: November 04, 2024 End: November 04, 2024Tondra K Mapus , APRNAttending ProviderActiveStart: November 04, 2024 End: November 04, 2024 Team Status: Inactive Member Role Status Dates Boy Phillips APRN Attending Provider Active Start: November 04, 2024 End: November 04, 2024Team MemberRelationshipSpecialtyStart DateEnd Date Drake Shaw MD [address] [place] [address] PCP - GeneralInternal Medicine09/17/24 Team Status: Active [...] BE BASED ON THE PRIMARY CLINICAL RECORDS. [employer] [facility]. provides no warranty or guarantee of the accuracy or completeness of information in this document.
--- OUTSIDE RECORDS SUMMARY | 2025-01-20 06:58 | XMS_ITS | Clinical Summary ---
Author Organization [facility] Address [address] [place] [address] Care Team Providers Care Shell Fisherman Name Role Phone Ash Rinaldi Primary Care Provider [phone] Allergies Active AllergyReactionsCriticalityNoted DateCommentsLorazepamOther: See Comments 11/11/2017 Becomes combative/ delirious TuvihgxRuuayfic76/23/2018 Swelling of the tongue Medications MedicationSigDispense QuantityRefillsLast [...] tablet 4 mg daily with breakfast. 1Active encsjd-uircyfus-glgivdr (ZENPEP) 40,000-126,000- 168,000 unit delayed release capsule [...] Discussed with staff ProblemNoted DateDiagnosed DateSecondary diabetes tedwfiqw24/08/2021 Assessment & Plan (08/25/2020 3:18 PM EDT): Assessment: s/p partial pancreas removal Is on oral medication No recent A1c on file Daily blood sugars are stated to be between 110-130 Myofascial pain fokugnvm60/11/2020Gastroesophageal reflux sbouooy3503/03/2019 Assessment & Plan (08/25/2020 3:17 PM EDT): Assessment: States is well controlled with medication and denies any recent exacerbations Follows with PCP and GI Pancreas tail lbftbb5107/31/2018Pancreatitis, icujzfqgbtz75/05/2018 Assessment & Plan (08/25/2020 3:13 PM EDT): Assessment: states occurred in 10/2017 Treated with partial pancreas removal, splenectomy and cholecystectomy Follows with Dr. Grady Is on supplemental enzymes Malnutrition of moderate usgvzm1012/29/2017Obesity, Class I, BMI 30-34.91 Assessment & Plan (08/25/2020 3:19 PM EDT): Assessment: Body mass index is 31.26 kg/m??. Iron deficiency cjbttm8311/27/2017 Assessment & Plan (08/25/2020 3:19 PM EDT): Assessment: states has been well controlled with oral iron supplement No recent iron infusion or blood transfusion - history of blood transfusions in ~ 2018 without stated issue Malnutrition of mild kxjyhy4911/06/2017 Assessment & Plan (11/06/2017 12:06 PM EDT): [...] pancreatitis PLAN: - Lung protective ventilation Acute dmhthcxcykibgv15/24/2018 Assessment & Plan (08/25/2020 3:16 PM EDT): [...] 'necrotizing pancreatitis' and 'c difficile' C. difficile krdoqvad31/24/2018 Assessment & Plan (11/06/2017 12:07 PM EDT): Assessment: PCR positive but EIA negative (11/05). C/b ileus. PLAN: - Appreciate ID recommendations - IV flagyl, PO and rectal vanc Assessment & Plan (11/05/2017 2:00 PM EDT): Assessment: C/b ileus PLAN: - IV flagyl, PO and rectal vanc - ID consult Ongygdzuttkmt76/24/2018 Assessment & Plan (11/06/2017 12:08 PM EDT): PLAN: - Continue D5 water infusion - Trend BMP Assessment & Plan (11/05/2017 2:00 PM EDT): PLAN: - Continue D5 water infusion - Trend BMP Necrotizing lzegcvvgoqqh08/23/2018 Assessment & Plan (11/06/2017 12:08 PM EDT): [...] if unable to start TF d/t ileus Jywumupclhft15/22/2018 Overview (11/05/2017): Added automatically from request for surgery [id number] Bauddmyfxevo17/21/2018 Assessment & Plan (08/25/2020 3:17 PM EDT): Assessment: States is well controlled with medication Follows with PCP Denies any chest pain, shortness of breath or any palpitations. Denies any known prior CT, CVA or stent placement. Resolved Problems ProblemNoted DateDiagnosed DateResolved OsweQofet10Obesity, Class II, BMI 35-39.910/Delirium Assessment & Plan [...] drink = 0.6 oz pure alcohol)PHQ-2AnswerDate RecordedPHQ-2 ivweo642rea Deprivation IndexAnswerDate RecordedNational Score (1-100), lower number is lower riskNot on file01/20/2020State Score (1-10), lower number is lower riskNot on file01/20/2020Data from: https://www.neighborhoodatlas.medicine.[facility].edu/. Last address used for calculationNot on file01/20/2020CommentsNoSex and Gender Information ValueDate RecordedSex Assigned at BirthNot on fileLegal OqrSuiwzf42/22/2018 2:30 PM EDTGender IdentityNot on fileSexual OrientationNot on file Last Filed Vital Signs Vital SignReadingTime TakenCommentsBlood Nruiapnp929/7107 9:30 AM EDT Xxwwo048108/31/2020 9:30 AM CKUIeakiebhxbu91.2 ??C (97.2 ??F)08/31/2020 9:30 AM EDTRespiratory Uqmh9399 9:30 AM EDTOxygen Riimgmtxbm96%08/31/2020 9:30 AM EDTInhaled Oxygen Concentration--Ecbvee18.9 kg (185 lb)08/31/2020 7:48 AM EDT Lqodzn436.8 cm (5' 4.5 )08/31/2020 7:48 AM EDTBody Mass Index31.2607 7:48 AM EDT Plan of Treatment Health MaintenanceDue DateLast DoneCommentsAnxiety Raxompibe73/28/1976Depression Azjvlasuu29/28/1976Hepatitis C Rfkkrwuxl43/28/1976CT Fvuuvghcajvh71/28/2003 Cologuard (FIT-DNA)2002Fecal Occult Blood03/11/20020128Bncxgstitmufw59/28/2003 Shingrix Vaccine (1 of 2)2007Pneumococcal Vaccine: 50+ (2 of 2 - PCV) , 07/16/20183267Etcsrirvupw28/20/202207/olorectal Cancer Rwmwdxnsm10/20/2022Bone Density Jztsxoyhb77/28/2023Lipid Hlsvjnsrn91/20/2023 11/01/2017Mammogram Ivcvprsyv73/27/188727/, 10/23/2019, 04/03/2019, Additional history existsAdvance Directive Cyabnqmify60/01/2025ovid-19 Vaccine (1 - 2024- season)2024Influenza Vaccine (#1)/02/2019, 11/03/2018, 12/04/2017Diabetes Fojtqyyoi60/27/416804/, 09/23/2020, 03/31/2020, Additional history existsDTaP,Tdap,Td Vaccine (2 - Td or Tdap) /09/2016RSV Vaccine (1 - 1-dose 75+ series)2032 Procedures Procedure NamePriorityDate/TimeAssociated DiagnosisCommentsCOLONOSCOPYRoutine 08/31/2020 8:34 AM EDT COMPREHENSIVE METABOLIC MAOOQQbvaypz51/09/2019 12:28 PM EDT Nausea from Last 3 Months or Most Recently Relevant to Health Maintenance Results * COLONOSCOPY (08/31/2020 8:34 AM EDT)ComponentValueRef RangeTest MethodAnalysis TimePerformed AtPathologist SignatureTranscriptChildren's [facility] Patient Name: Nichole Warren Procedure Date: 08/31/2020 8:34 AM Date of : 1955 Admit Type: Outpatient Age: 65 Room: SP Procedure Room 4 Gender: Female Note Status: Finalized Attending MD: Jhon Stephen , DO Procedure: ? Colonoscopy Indications: ? Chronic diarrhea Providers: ? Jhon Stephen, Patient Profile: ? This is a 65 [...] the sigmoid colon, removed ? with a jumbo cold forceps. Resected and retrieved. ? - [...] DODIGESTIVE DISEASE REGIONALFinal ResultPerforming OrganizationAddressCity/State/ZIP CodePhone Number [facility] [address] [place] [address] [facility] * (ABNORMAL) COMP METABOLIC PANEL (08/20/2018 12:28 PM EDT)ComponentValueRef RangeTest MethodAnalysis TimePerformed AtPathologist SignatureProtein, Total 8.2(H)6.3 - 8.0 g/dL08/20/2018 6:16 PM EDTCleveland Clinic LaboratoriesAlbumin 4.23.9 - 4.9 g/dL08/20/2018 6:16 PM EDTCohio[facility]and Clinic LaboratoriesCalcium 10.5(H)8.5 - 10.2 mg/dL08/20/2018 6:16 PM EDUniversity [facility]als Ahu[facility] Centerand Clinic Laboratories Bilirubin, Total0.20.2 - 1.3 mg/dL08/20/2018 6:16 PM EDTCohiohealth gro[facility] city [facility] hospitaland Clinic LaboratoriesAlkaline Pijutmlawdw1248 - 123 U/L08/20/2018 6:16 PM EDTCpar[facility] Clinic YiqbqktiafegAFL1751 - 35 U/L08/20/2018 6:16 PM EDTCohiohealth [facility] city [facility]and Clinic IxlevhnmufmbBvadcyr2732 - 99 mg/dL08/20/2018 6:16 PM EDTCohiohealth gro[facility] hospitaland Clinic LaboratoriesComment: The [place] Diabetes Association (ADA) provides guidance for cutoff values for fasting glucose and random glucose. The ADA defines fasting as no caloric intake for at least 8 hours. Fasting plasma glucose results between 100 to 125 mg/dL indicate increased risk for diabetes (prediabetes). Fasting plasma glucose results greater than or equal to 126 mg/dL meet the criteria for diagnosis of diabetes. In the absence of unequivocal hyperglycemia, results should be confirmed by repeat testing. In a patient with classic symptoms of hyperglycemia or hyperglycemic crisis, random plasma glucose results greater than or equal to 200 mg/dL meet the criteria for diagnosis of diabetes. Reference: Standards of Medical Care in Diabetes 2016, [place] Diabetes Association. Diabetes Care. 2016.39(Suppl 1). KVZ006 - 21 mg/dL08/20/2018 6:16 PM EDBrecksville [facility] LaboratoriesCreatinine 0.590.58 - 0.96 mg/dL08/20/2018 6:16 PM EDBrecksville [facility] LaboratoriesSodium 217586 - 144 mmol/L08/20/2018 6:16 PM EDBrecksville [facility] LaboratoriesPotassium 3.73.7 - 5.1 mmol/L08/20/2018 6:[address] [facility] LaboratoriesChloride 51503 - 105 mmol/L08/20/2018 6:[address] [facility] TlrlzqsngaceUB07658 - 30 mmol/L08/20/2018 6:[address] [facility] LaboratoriesAnion Heb284 - 18 mmol/L08/20/2018 6:[address] [facility] FhjtoqyqjssgMWU353 - 38 U/L 08/20/2018 6:[address] [facility] LaboratorieseGFR->60 08/20/2018 6:[address] [facility] LaboratorieseGFR-All Other Races>60. 08/20/2018 6:[address] [facility] LaboratoriesComment: eGFR (Estimated GFR) Units of measure: mL/min/1.73 meters squared eGFR is derived from the reexpressed MDRD Study equation using the following parameters: serum creatinine, age, gender and race. The creatinine assay has been calibrated to be traceable to IDMS. An eGFR <60 mL/min/1.73m2 for >3 months is consistent with chronic kidney disease. Refer to KDOQI guidelines for clinical interpretation. In patients with unstable renal function, e.g. those with acute kidney injury, the eGFR may not accurately reflect actual GFR. Specimen (Source)Anatomical Location / LateralityCollection Method / Volume Collection TimeReceived TimeBlood specimen (specimen)BLOOD SPECIMEN / Unknown 08/20/2018 12:28 PM EDT08/20/2018 12:30 PM EDT Narrative Authorizing ProviderResult TypeResult StatusRobert Miguel A JENKINSLABORATORYFinal ResultPerforming OrganizationAddressCity/State/ZIP CodePhone Number [facility] [address] [place] [address] [facility] [address] [place] [address] from Last 3 Months or Most Recently Relevant to Health Maintenance Insurance * Guarantor: Nichole Warren AAccount TypeRelation to PatientDate of PhoneBilling AddressPersonal/RvbaibPnhm20/28/1956 [id number] [address] Advance Directives TypeDate RecordedPatient RepresentativeExplanationAdvance Directive(s)11/09/2017 4:21 PMSIGNED Care Teams Team MemberRelationshipSpecialtyStart DateEnd Date Ash Rinaldi [address] [place] [address] PCP - GeneralFamily Mkttfzem19/12/18
--- OUTSIDE RECORDS SUMMARY | 2025-01-20 06:58 | XMS_ITS | Clinical Summary ---
Author Organization [facility] Address [address], [address] [place] [address] Care Team Providers Care Molecular Biology Professor Name Role Phone Stalin Vick DO Primary Care Provider [phone] Allergies Active AllergyReactionsCriticalityNoted DateCommentsCodeineOther (See Comments) High11/01/2017 [...] 1 vial Active Active Problems ProblemNoted DateDiagnosed YpdzNkyrf12/22/9120Aqnhbtcaiwcs85/21/2018Necrotizing poaqwetcbmvt29/20/2018Coffee ground iztkby1011/01/2017 Social History Tobacco UseTypesPacks/DayYears UsedDateSmoking Tobacco: UnknownComments UnknownSex and Gender InformationValueDate RecordedSex Assigned at BirthNot on fileLegal MmsUdkdcs89/20/2018 1:08 PM EDTGender IdentityNot on fileSexual OrientationNot on file Last Filed Vital Signs Vital SignReadingTime TakenCommentsBlood Pdfdjsfe132/8311/03/2017 11:00 PM EDT Pjfpt28438/22/2018 11:00 PM LEYYxqrlrbgjqg87.5 ??C (99.5 ??F)11/03/2017 8:00 PM EDTRespiratory Ebnd2853 11:00 PM EDTOxygen Irddcnipir52%11/03/2017 9:00 PM EDTInhaled Oxygen Concentration--Upolvl59.9 kg (218 lb 0.6 oz)11/01/2017 6:45 PM LOAGcyzzb209.1 cm (5' 5 )11/01/2017 6:45 PM EDTBody Mass Index36.28011/01/2017 6:45 PM EDT Plan of Treatment Not on file Insurance Advance Directives * Full Code (Latest Code Status on File) Date ActivatedDate InactivatedComments11/01/2017 7:17 PM11/04/2017 1:57 AM Care Teams Team MemberRelationshipSpecialtyStart DateEnd Date Stalin Vick DO [address] [place] [address] PCP - GeneralFamily Medicine11/01/17
--- OUTSIDE RECORDS SUMMARY | 2025-01-20 06:58 | XMS_ITS | Clinical Summary ---
Author Organization [employer] tem Address [facility] [id number] [address] [place] [address] Care Team Providers Care Assistant Front End Manager Name Role Phone Drake Morrissey MD Primary Care Provider [phone] Allergies Active AllergyReactionsCriticalityNoted DateCommentsCodeineOther (See Comments), TdvsgjwrEmqv87/20/2018 Swelling of the tongue Swelling of tongue GfzlzqscnDgteBfr43/30/2018 Becomes combative/ delirious Medications MedicationSigDispense QuantityRefillsLast FilledStart [...] by mouth in the morning.Active DEXCOM G6 AIRPORT DRIVER misc 01/24/2022ctive DEXCOM G6 SENSOR device 01/24/2022ctive [...] capsule (5,000 Units total).06/18/2023ctive T:SLIM X2 CONTROL-IQ [facility] [place] 08/20/2023ctive ACCU-CHEK GUIDE L1-L2 CTRL MISTY solution [...] Expired Active Problems ProblemNoted DateDiagnosed DateMyofascial pain nbhbfgui62/06/2024Neck pain 08/31/2022Secondary diabetes xakgbbll68/08/2021Necrotizing pancreatitis 08/09/2018Pancreas tail ujahqd7107/31/2018 Encounters DateTypeDepartmentCare EadqFblhpoxdwus26/04/2025Results Follow-Up [facility] [address] [place] [address] Drake Morrissey MD Qhzvoplg89/04/2025Orders Only [facility] [address] [place] [address] Kamla Graff CMA Orthostatic ourmpciapyz65/03/2025 11:15 AM ESTOffice Visit [facility] [place] [phone] Drake Morrissey MD Orthostatic hypotension (Primary Dx); Essential hypertension, jjtlwb0401/14/20257450Jjispe21/12/2025 2:00 PM ESTOffice Visit [facility] [place] [address] [place] [phone] Drake Morrissey MD Orthostasis (Primary Dx); Essential hypertension, benign; Secondary diabetes mellitus ([facility]-HCC); Other acute sinusitis, recurrence not tsaqhqvoe97/12/2025Orders Only [facility] [address] [place] [address] [place] [address] Kamla Graff CMA Encounter for screening mammogram for malignant neoplasm of uczvlf1812/23/2024 Sjajhx4311/10/2024Refill [facility] [address] [place] [address] [place] [address] Ash Landeros MD 10/31/2024Results [facility] [address] [place] [phone] Drake Morrissey MD CBC auto differential, Thyroid profile includes TSH FT4, Lipid profile, Additional followed-up results: Orders Only [facility] [address] [place] [address] [place] [address] Kiana Mckeon LPN Essential hypertension, benign; Mixed hyperlipidemia; Secondary diabetes mellitus ([facility]-HCC)from Last 3 Months Immunizations ImmunizationAdministration DatesNext IzvTbT0407/16/2018Influenza, Injectable, Mdck, Preservative Free, Quad11/03/2018Influenza, Injectable, Quadrivalent 12/04/2017Influenza, Injectable, quadrivalent (PF)12/14/2019,11/03/2018 Meningococcal Slwjxsppl75/04/2019Meningococcal ZBE1B0410/01/2018Pneumococcal Conjugate 20-gttght893Pneumococcal Huzntwwqzwqxuf12/20/2019,07/16/2018 Tdap08/19/2016 Family History Medical HistoryRelationNameCommentsDiabetesFatherRelationNameStatusComments Father Social [...] relatives?Twice a week03/23/2020How often do you attend muslim or alevism services?Never03/23/2020o you belong to any clubs or organizations such as muslim groups, unions, fraternal or athletic groups, or school groups? Yes03/23/2020How often do you attend meetings of the clubs or organizations you belong to?Never03/23/2020re you , , , , never , or living with a partner?Never nqjflif2903/23/2020Overall Financial Resource Strain (CARDIA)AnswerDate RecordedHow hard is it for you to pay for the very basics like food, housing, medical care, and heating?Not very hard 10/18/2024PHQ-2AnswerDate RecordedTotal Jwkwh59103/17/2024[facility] [place] of Occupational Health - Occupational Stress QuestionnaireAnswerDate [...] a household?No10/18/2024hildcareAnswerDate RecordedDo problems getting early childhood special educator make it difficult for you to work [...] or the highest degree you have received?12th grade1 CommentsNoSex and Gender InformationValueDate RecordedSex Assigned at BirthNot on fileLegal LjbViujjf97/08/2018 9:48 AM EDTGender IdentityNot on fileSexual OrientationNot on file Last Filed Vital Signs Vital SignReadingTime TakenCommentsBlood Xpmstlmp093/6801/14/2025 11:09 AM EST Uuhrg345201/14/2025 11:09 AM PRLDhzijuwstsq53.6 ??C (97.8 ??F)10/16/2023 3:08 PM EDTRespiratory Ptht0597/04/2024 11:09 AM ESTOxygen Neuzsebffz83%01/14/2025 11:09 AM ESTInhaled Oxygen Concentration--Wachtl43.7 kg (200 lb)01/14/2025 11:09 AM FZXBumlfg662.4 cm (5' 2.75 )10/20/2024 3:06 PM EDTBody Mass Index35.71010/20/2024 3:06 PM EDT Plan of Treatment DateTypeDepartmentCare Team (Latest Contact Info)Ebrbcbermsc82/08/2026 1:45 PM ESTOffice Visit [facility] [address] [place] [phone] Drake Morrissey MD [address] [place] [address] 04/30/2025 9:00 AM EDTOffice Visit [facility] [phone] rDake Morrissey MD [address] [place] [address] 10/21/2025 3:30 PM EDTOffice Visit [facility] [address] [place] [phone] Drake Morrissey MD [address] [place] [address] Health MaintenanceDue DateLast DoneCommentsZoster (Shingles) Vaccine (1 of 2) 2007RSV ( or age 60+ yrs) (1 - Risk 60-74 years 1-dose series) 2017Diabetic Foot Exam/02/2022, 04/29/2020Influenza Vaccine /02/2019, 11/03/2018, 11/03/2018, Additional history existsDiabetic Ophthalmology Exam/08/2023, 12/14/2022Statin Use: Aylwkqwf36/02/2026 08/13/2024Fall Risk Ougnjvadx27dult BMI Follow Up Plan /09/2024Medicare Annual Wellness Visit/09/2024, 10/16/2023, 10/12/2022, Additional history kihtrzQyvuckjfn51, 12/22/2024, 12/19/2023, Additional history existsAdult BMI Iqcgvxjrd88/03/2026 01/14/2025Depression Hbntongoz62Tobacco Iruvatjqb58/03/2026 01/14/2025DTaP,Tdap and Td Vaccines (2 - Td or Tdap) Medical Devices Not on file Procedures Procedure NamePriorityDate/TimeAssociated DiagnosisCommentsCORTISOLRoutine 01/14/2025 Orthostatic hypotension MAMM SCREENING BILATERAL W NDVButwwpi87/10/2025 Encounter for screening mammogram for malignant neoplasm of breast COMPREHENSIVE METABOLIC LTACFYathgwe24/19/2025 Essential hypertension, benign HEMOGLOBIN D6EQtbkwbn68/19/2025 Secondary diabetes mellitus (CMS-HCC) LIPID LIPNXJRKnmywps27/19/2025 Mixed hyperlipidemia THYROID PROFILE INCLUDES TSH RR5Fprcnwt92/19/2025 Essential hypertension, benign CBC WITH AUTO MOLLCGOSXZKYWgqzfwc63/19/2025 Essential hypertension, benign HM DIABETES EYE OXFGBxqigez39/07/2024 9:34 AM ESTfrom Last 3 Months or Most Recently Relevant to Health Maintenance Results * Cortisol (01/14/2025)ComponentValueRef RangeTest MethodAnalysis TimePerformed AtPathologist SignatureCortisol U10.7MANUALLY TRANSCRIBED RESULTSSpecimen (Source)Anatomical Location / LateralityCollection Method / VolumeCollection TimeReceived TimeBloodVenous blood / Wrdjvsn6701/14/2025 Narrative Authorizing ProviderResult TypeResult StatusDrake Damianhid [facility] BLOOD ORDERABLESFinal ResultPerforming OrganizationAddressCity/State/ZIP CodePhone Number MANUALLY TRANSCRIBED RESULTS * Mammography screening bilateral with CAD (12/22/2024)Anatomical Region LateralityModalityBreastBilateralMammography Narrative Authorizing ProviderResult TypeResult StatusDrake Morrissey MDG MAMMOGRAPHY ORDERABLESFinal Result * Thyroid profile includes TSH FT4 (10/31/2024)Specimen (Source)Anatomical Location / LateralityCollection Method / VolumeCollection TimeReceived Time BloodVenous blood / Iwupaug5710/31/2024 Narrative Authorizing ProviderResult TypeResult StatusDrake Ghanshyam [facility] BLOOD ORDERABLESFinal ResultPerforming OrganizationAddressCity/State/ZIP CodePhone Number MANUALLY TRANSCRIBED RESULTS * CBC auto differential (10/31/2024)Specimen (Source)Anatomical Location / LateralityCollection Method / VolumeCollection TimeReceived TimeBloodVenous blood / Eypeqat4410/31/2024 Narrative Authorizing ProviderResult TypeResult StatusDrake Ghanshyam [facility] BLOOD ORDERABLESFinal ResultPerforming OrganizationAddressCity/State/ZIP CodePhone Number MANUALLY TRANSCRIBED RESULTS * (ABNORMAL) Hemoglobin A1c (10/31/2024)ComponentValueRef RangeTest Method Analysis TimePerformed AtPathologist SignatureExternal Hemoglobin A1C6.3(A)4.5 - 6.2 %MANUALLY TRANSCRIBED RESULTSSpecimen (Source)Anatomical Location / LateralityCollection Method / VolumeCollection TimeReceived TimeBloodVenous blood / Ctnmfhv5510/31/2024 Narrative Authorizing ProviderResult TypeResult StatusDrake Ghanshyam [facility] BLOOD ORDERABLESFinal ResultPerforming OrganizationAddressCity/State/ZIP CodePhone Number MANUALLY TRANSCRIBED RESULTS * (ABNORMAL) Lipid profile (10/31/2024)ComponentValueRef RangeTest Method Analysis TimePerformed AtPathologist SignatureExternal Zolpljbnssm495<=200 MANUALLY TRANSCRIBED RESULTSExternal Cholesterol:Hdl4.13.3 - 4.4MANUALLY TRANSCRIBED RESULTSExternal Hdl Nbsyakspcsm38(A)40 - 60MANUALLY TRANSCRIBED RESULTSExternal Ldl (Calc)65<=100MANUALLY TRANSCRIBED RESULTSExternal Dagrkzpcyhbqp737(A)<=150MANUALLY TRANSCRIBED RESULTSExternal Very Low Jxmvmzlkgev97.0MANUALLY TRANSCRIBED RESULTSSpecimen (Source)Anatomical Location / LateralityCollection Method / VolumeCollection TimeReceived Time BloodVenous blood / Lipejnt7110/31/2024 Narrative Authorizing ProviderResult TypeResult StatusDrake Morrissey [facility] BLOOD ORDERABLESFinal ResultPerforming OrganizationAddressCity/State/ZIP CodePhone Number MANUALLY TRANSCRIBED RESULTS * Comprehensive metabolic panel (10/31/2024)Specimen (Source)Anatomical Location / LateralityCollection Method / VolumeCollection TimeReceived TimeBloodVenous blood / Djastcx2010/31/2024 Narrative Authorizing ProviderResult TypeResult StatusDrake Morrissey [facility] BLOOD ORDERABLESFinal ResultPerforming OrganizationAddressCity/State/ZIP CodePhone Number MANUALLY TRANSCRIBED RESULTS * DIABETES EYE EXAM (12/20/2023 9:34 AM EST) Narrative Authorizing ProviderResult TypeResult StatusScanning Provider ExternalHEALTH MAINTENANCEFinal ResultPerforming OrganizationAddressCity/State/ZIP CodePhone Number MANUALLY TRANSCRIBED RESULTS from Last 3 Months or Most Recently Relevant to Health Maintenance Insurance [address] [place] [address] Care Teams Team MemberRelationshipSpecialtyStart DateEnd Date Drake Morrissey MD [address] [place] [address] PCP - GeneralInternal Medicine09/17/24
--- OUTSIDE RECORDS SUMMARY | 2025-01-20 06:58 | XMS_ITS | Encounter Summary ---
Author Organization [employer] s tem Address [id number] [address] 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 Role Phone Drake Morrissey MD Primary Care Provider [phone] Encounter Details DateTypeDepartmentCare Team (Latest Contact Info)Ydecapsquti70/03/2025Travel Social History Tobacco UseTypesPacks/DayYears UsedDateSmoking Tobacco: NeverSmokeless Tobacco: NeverAlcohol UseStandard Drinks/WeekCommentsNot Currently0 (1 standard drink = 0.6 oz pure alcohol)occasionalSocial Connection and Isolation PanelAnswerDate RecordedIn a typical week, how many times do you talk on the phone with family, friends, or neighbors?More than three times a week03/23/2020How often do you get together with friends or relatives?Twice a week03/23/2020How often do you attend scientologist or muslim services?Never1Do you belong to any clubs or organizations such as scientologist groups, unions, fraternal or athletic groups, or school groups?Yes03/23/2020How often do you attend meetings of the clubs or organizations you belong to?Never03/23/2020re you , , , , never , or living with a partner?Never wnrhlqa3503/23/2020 Overall Financial Resource Strain (CARDIA)AnswerDate RecordedHow hard is it for you to pay for the very basics like food, housing, medical care, and heating?Not very hard10/18/2024PHQ-2AnswerDate RecordedTotal Dgqej55103/17/2024[facility] [place] of Occupational Health - Occupational Stress QuestionnaireAnswerDate [...] part of a household?No10/18/2024hildcareAnswerDate RecordedDo problems getting children's counselor make it difficult for you to work [...] InformationValueDate RecordedSex Assigned at BirthNot on fileLegal KmxFpnrnm05/08/2018 9:48 AM EDTGender Identity Not on fileSexual OrientationNot on filedocumented as of this encounter Functional Status * AUDIT-C ScoreAnswerDate of EdjuzctwhlYjgbwl706/03/2025 11:11 AM Kiana Velasquez LPN * QuestionAnswerDate [...] Plan of Treatment DateTypeDepartmentCare Team (Latest Contact Info)Mwtknfanypv30/08/2026 1:45 PM ESTOffice Visit [facility] [address] [place] [phone] Drake Morrissey MD [address] [place] [phone] 04/30/2025 9:00 AM EDTOffice Visit [facility] [address] [place], [place] [address] [address] Drake Morrissey MD [address] [place] [phone] 10/21/2025 3:30 PM EDTOffice Visit [facility] [address] [place] [phone] Drake Morrissey MD [address] [place] [address] documented as of this encounter Visit Diagnoses Not on filedocumented in this encounter Additional Health Concerns AssessmentNoted TimePHQ-9 Depression Total Score: 11:11 AM ESTA Body Mass Index follow-up plan has been documented for the cfuwcpb8010/20/2024 3:34 PM EDTdocumented as of this encounter Care Teams Team MemberRelationshipSpecialtyStart DateEnd Date Drake Morrissey MD [address] [place] [address] PCP - GeneralInternal Medicine09/17/24documented as of this encounter
--- OUTSIDE RECORDS SUMMARY | 2025-01-20 06:58 | XMS_ITS | Encounter Summary ---
Author Organization [facility] [employer] Address [facility] [id number] [address] [place] [address] Care Team Providers Care Front Office Developer Name Role Phone Drake Morirssey MD Primary Care Provider [phone] Encounter Details DateTypeDepartmentCare Team (Latest Contact Info)Txfqjukffco97/04/2025Orders Only [facility] [address] [place] [address] Kamla Graff CMA Orthostatic hypotension Social History Tobacco UseTypesPacks/DayYears UsedDateSmoking Tobacco: NeverSmokeless Tobacco: NeverAlcohol UseStandard Drinks/WeekCommentsNot Currently0 (1 standard drink = 0.6 oz pure alcohol)occasionalSocial Connection and Isolation PanelAnswerDate RecordedIn a typical week, how many times do you talk on the phone with family, friends, or neighbors?More than three times a week03/23/2020How often do you get together with friends or relatives?Twice a week03/23/2020How often do you attend adventism or amish services?Never1Do you belong to any clubs or organizations such as adventism groups, unions, fraternal or athletic groups, or school groups?Yes03/23/2020How often do you attend meetings of the clubs or organizations you belong to?Never03/23/2020re you , , , , never , or living with a partner?Never cyojfhn4803/23/2020 Overall Financial Resource Strain (CARDIA)AnswerDate RecordedHow hard is it for you to pay for the very basics like food, housing, medical care, and heating?Not very hard10/18/2024PHQ-2AnswerDate RecordedTotal Vdypx14203/17/2024[place] [facility] [place] of Occupational Health - Occupational Stress QuestionnaireAnswerDate [...] part of a household?No10/18/2024hildcareAnswerDate RecordedDo problems getting special needs child caregiver make it difficult for you [...] InformationValueDate RecordedSex Assigned at BirthNot on fileLegal PqxCqwegq18/08/2018 9:48 AM EDTGender Identity Not on fileSexual OrientationNot on filedocumented as of this encounter Plan of Treatment DateTypeDepartmentCare Team (Latest Contact Info)Bzuijawaavs18/08/2026 1:45 PM ESTOffice Visit [facility] [address] [place] [phone] Drake Morrissey MD [address] [place] [phone] 04/30/2025 9:00 AM EDTOffice Visit [facility] [address] [place] [phone] Drake Morrissey MD [address] [place] [address] [phone] 10/21/2025 3:30 PM EDTOffice Visit [facility] [phone] Drake Morrissey MD [address] [place] [phone] documented as of this encounter Procedures Procedure NamePriorityDate/TimeAssociated DiagnosisCommentsCORTISOLRoutine 01/14/2025 Orthostatic hypotension documented in this encounter Results * Cortisol (01/14/2025)ComponentValueRef RangeTest MethodAnalysis TimePerformed AtPathologist SignatureCortisol U10.7MANUALLY TRANSCRIBED RESULTSSpecimen (Source)Anatomical Location / LateralityCollection Method / VolumeCollection TimeReceived TimeBloodVenous blood / Gyauhpx2701/14/2025 Narrative Authorizing ProviderResult TypeResult StatusDrake Morrissey [facility] BLOOD ORDERABLESFinal ResultPerforming OrganizationAddressCity/State/ZIP CodePhone Number MANUALLY TRANSCRIBED RESULTS documented in this encounter Visit Diagnoses Diagnosis Orthostatic hypotension documented in this encounter Additional Health Concerns AssessmentNoted TimePHQ-9 Depression Total Score: 11:11 AM ESTA Body Mass Index follow-up plan has been documented for the fldsfkm1310/20/2024 3:34 PM EDTdocumented as of this encounter Care Teams Team MemberRelationshipSpecialtyStart DateEnd Date Drake Morrissey MD [address] [place] [phone] PCP - GeneralInternal Medicine09/17/24documented as of this encounter
--- NOTE | 2025-01-20 07:00 | CA_ITS ---
Patient Name: VICTOR MANUEL SANDHU MR#: [id number] : 1955 Exam Date: 01/20/2025 Ordering Doctor: FLAKITO SHAW ECHOCARDIOGRAM REPORT PROCEDURE: CA ECHO LIMITED INDICATIONS: Orthostatic hypotension, essential hypertension, diabetes, h/o necrotizing pancreatitis, splenectomy, cholecystectomy, partial pancreas removal COMPARISON: None. DESCRIPTION: Limited ECHOCARDIOGRAM Real-time transthoracic echocardiography with 2D and M-mode performed. QUALITY: Technical quality was good. Limited echocardiogram per physician order. LEFT VENTRICLE: Normal chamber size. Moderate concentric hypertrophy. Estimated left ventricular ejection fraction is 65-70%. LV EF: Normal left ventricular ejection fraction, (>55%). DIASTOLIC: ATRIAL SEPTUM: LEFT ATRIUM: Mild dilatation. RIGHT ATRIUM: Normal chamber size. RIGHT VENTRICLE: Normal chamber size. Normal systolic function. TRICUSPID VALVE: Normal mobility and thickness. MITRAL VALVE: Normal mobility and thickness. There is no mitral annular calcification. AORTIC VALVE: Normal trileaflet appearance. No visible sclerosis. Normal leaflet mobility. AORTIC ROOT: Normal diameter and appearance. PULMONIC VALVE: Not well visualized. PERICARDIUM: No evidence of pericardial effusion. IVC: Collapses with inspiration. PLEURA: CONCLUSION: 1. Mild concentric left ventricular hypertrophy with normal systolic function. LVEF is estimated at 65 to 70%. 2. Normal right ventricular size and systolic function. 3. No pericardial effusion. 4. Limited study performed with no Doppler interrogation as requested. Adult Echocardiography Procedure Report Left Ventricle LVEDD (3.7 - 5.6 cm): 3.75 cm LVESD (2.2 - 4.0 cm): 2.32 cm LVIVS thickness (0.6 - 1.2 cm): 1.60 cm LVPW thickness (0.5 - 1.0 cm): 1.20 cm LVOT Diameter 1.90 cm Left Ventricular Ejection Fraction: 65-70 % Left Atrium LA Volume Index (2D A2C): 38.45 ml/m2 Left Atrium Systolic Dimension: 3.13 cm Mitral Valve Right Ventricle Aorta AO Root Diam: 3.51 cm Aortic Valve Tricuspid Valve Pulmonic Valve Right Atrium Right Atrium Systolic Pressure: 36.55 ml, 36.55 ml Dictated by: Sam Sesay M.D. on 01/20/2025 at 19:16 Approved by: Sam Sesay M.D. on 01/20/2025 at 19:18
== END 2025-01-20 06:54 | disposition home or self-care (01) ==
LOC: CARD 06:55
PROVIDERS: PCP Student in an Organized Health Care Education/Training Program; Visit Provider Student in an Organized Health Care Education/Training Program
DX: I95.1 Orthostatic hypotension (principal); I10 Essential (primary) hypertension
CPT/HCPCS: 93308